=== PATIENT | female | born 1970 | race Caucasian/White ===

== ENCOUNTER → 2016-11-13 | Emergency (ER) | payer SELFPAY ==
[~2016-11-13] VITALS: Ht 160 cm; Wt 97.5 kg
[~2016-11-13] MED LIST: AA/A14DR2 LEFT EAR; ACHD5005 PO; ALBU0.8322 IH; ALBU17AE23 IH; ALBU17AE3 IH; ALBU8.5H4 IH; AMIT100T2 PO; AMIT25TA9 PO; AMOX500C2 PO; ARIP2TAB3 PO; ARIP5TAB20 PO; AZIT-21 PO; AZIT250T PO; BSP10T PO; CALC-80 PO; CEPH500C PO; CHLO500T4 PO; CLOT45CR46 TOP; CODE118S2 PO; CODEINE; CPR500T PO; CYCL10TA9 PO; DEXL60CA5 PO; DICY20TA57 PO; DULO60CA58 PO; FLUT1DIS26 IH; HCT25T PO; HYDR1CAP2 PO; HYDR1TAB PO; HYDR25CA5 PO; HYOS0.1283 SL; LEVO750T39 PO; LEVO80CA PO; LORA1TAB PO; LOSA50TA6 PO; MECL-133 PO; MECL25TA56 PO; MELO-195 PO; MELO-198 PO; METF-380 PO; METO25TA2 PO; MTF500T PO; MTP25TSR PO; NAPR-243 PO; NEBI20TA2 PO; NF-ESOM40C PO; OMEP20CA12 PO; OMEP40CA36 PO; ONDA-42 SL; ONDA4TAB11 PO; ONDAN4ODT PO; PNT40TEC PO; POTA20TA15 PO; PRCD5U PO; PRD20T PO; PREG50C PO; PROMETHAZINE; PRV20T PO; ROSU10TA12 PO; SCR1T1 PO; SRTR100T PO; TELM20TA PO; TPR100T PO; TRAM-21 PO; TRAM-42 PO; TRM50T PO; [UNRECOGNIZED DRUG - OTHER]
[2016-11-13] MEDS: HYDROcodone/APAP 7.5 MG/325 MG (LORTAB, LORCET PLUS) TABLET PO STA (13:29)
[2016-11-13] MEDS: CYCLOBENZAPRINE 10 MG (FLEXERIL) TAB PO STA (13:29)
--- NOTE | 2016-11-13 13:31 | Diagnostic Imaging Report ---
3 views of the lumbar spine. INDICATION: Back pain after fall. FINDINGS: There is straightening of the upper/ mid lumbar spine curvature. There is satisfactory alignment of the posterior spinal line. No compression fracture. The disc heights are preserved. The SI joints appear normal. No significant degenerative changes seen. The paraspinal soft tissues appear unremarkable. IMPRESSION: Unremarkable exam. Dictated by: Dictated on workstation # [id number]
--- NOTE | 2016-11-13 13:36 | ED Back Pain ---
General Chief Complaint: Back Problems Stated Complaint: FALL-BACK PAIN Nursing Triage Note: PT HERE WITH C/O FALL WHILE CLEANING HER KITCHEN FLOOR AND LANDING ON HER BACK. PT C/O BACK PAIN AND BILAT HIP PAIN. Nursing Sepsis Screen: No Definite Risk History of Present Illness Time Seen by Provider: 12:55 Initial Comments Evaluation for exacerbation of chronic back pain with acute fall today. She was mopping her floor and trying to carefully walk across took when she slipped and fell landing on her lower back. She denies hitting her head and denies any loss of consciousness. Location: Lumbar Spine Timing/Duration: 1-3 Hours Severity: Moderate Pain/Injury Location: Other (lumbar spine) Method of Injury: Fall Modifying Factors: Improves With Immobilization, Improves With Rest Associated Symptoms: muscle spasms, No numbness in legs/feet, No tingling in legs/feet, No sensory/motor loss, lower back pain, No loss of bladder control, No loss of bowel control Allergies and Home Medications Allergies Coded Allergies: lisinopril (Verified Allergy, Mild, COUGH, 01/05/16) montelukast (Verified Allergy, Unknown, 01/05/16) montelukast sodium (Verified Adverse Reaction, Unknown, 01/05/16) Uncoded Allergies: METALS (Allergy, Unknown, 07/12/14) Home Medications Aripiprazole 5 Mg Tablet, 2.5 MG PO DAILY, (Reported) TAKES 1/2 OF A (5 MG) TABLET Cyclobenzaprine HCl 10 Mg Tablet, 10 MG PO Q8H PRN for SPASMS, #12 Ref 0 Prescribed by: LYNDSEY SOUZA on 11/13/16 1410 Duloxetine HCl 60 Mg Capsule.dr, 60 MG PO DAILY, (Reported) Levofloxacin 750 Mg Tablet, 750 MG PO DAILY, #10 Ref 0 Prescribed by: TAYLOR PETERSEN on 04/04/16 1421 Pregabalin 50 Mg Cap, 100 MG PO TID, (Reported) TAKES 2 (50 MG) CAPSULES Tramadol HCl 50 Mg Tablet, 50 MG PO Q8H, #12 Ref 0 Prescribed by: LYNDSEY SOUZA on 11/13/16 1410 Constitutional: no symptoms reported, see HPI EENTM: no symptoms reported, see HPI Respiratory: no symptoms reported, see HPI Cardiovascular: no symptoms reported, see HPI Gastrointestinal: no symptoms reported, see HPI Genitourinary: no symptoms reported, see HPI Musculoskeletal: see HPI, back pain, muscle cramps (lumbar spine) Skin: no symptoms reported, see HPI Psychiatric/Neurological: No Symptoms Reported, See HPI All Other Systems Reviewed Negative Unless Noted: Yes Past Fwmfdxn-Fcaqpg-Dysbif Hx Patient Social History Recent Foreign Travel: No Contact w/Someone Who Travel: No Recent Infectious Disease Expo: No Recent Hopitalizations: No Immunizations Up To Date Tetanus Booster (TDap): More than 5yrs Seasonal Allergies Seasonal Allergies: No Surgeries HX Surgeries: Yes (D&C, R KNEE, ) Surgeries: Cardiac, Eye Surgery, Orthopedic Respiratory Hx Respiratory Disorders: Yes Respiratory Disorders: Asthma Cardiovascular Hx Cardiac Disorders: Yes Cardiac Disorders: Heart Attack, High Cholesterol, Hypertension Neurological Hx Neurological Disorders: Yes Neurological Disorders: Headaches /Migraines 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 System Hx 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 Disorders: No 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 Genitourinary Hx Genitourinary Disorders: No Gastrointestinal Hx Gastrointestinal Disorders: Yes Gastrointestinal Disorders: Gastroesophageal Reflux, Hiatal Hernia, Irritable Bowel Musculoskeletal Hx Musculoskeletal Disorders: Yes Musculoskeletal Disorders: Fibromyalgia Endocrine Hx Endocrine Disorders: Yes Endocrine Disorders: Diabetes, Non-Insulin dep HEENT HX ENT Disorders: Yes (WEARS GLASSES) Cancer Hx Cancer: No Psychosocial Hx Psychiatric Problems: Yes Behavioral Health Disorders: ADD/ADHD, Anxiety, PTSD, Depression Integumentary HX Skin/Integumentary Disorder: No Blood Transfusions Hx Blood Disorders: No Adverse Reaction to a Blood Tr: No Reviewed Nursing Assessment Reviewed/Agree w Nursing PMH: Yes Family Medical History Significant Family History: No Pertinent Family Hx Family Medial History: Patient reports no known family medical history. Physical Exam Vital Signs Vital Sign - Last 12Hours 11/13/16 11:39 Temp 99.0 Pulse 73 Resp 18 B/P (MAP) 130/84 Pulse Ox 98 O2 Delivery Room Air Capillary Refill : Less Than 3 Seconds General Appearance: No Apparent Distress, WD/WN Neck: Full Range of Motion, Normal Inspection, Non Tender, Supple Cardiovascular: Regular Rate, Rhythm, No Edema Respiratory: Chest Non Tender, Lungs Clear, Normal Breath Sounds Gastrointestinal: Normal Bowel Sounds, No Organomegaly, No Pulsatile Mass, Non Tender, Soft Back: Normal Inspection, Decreased Range of Motion, Muscle Spasm, Vertebral Tenderness, Other (Power V/V L4-S1, bilat lower ext. ) Extremity: Normal Capillary Refill, Normal Inspection, Normal Range of Motion, Non Tender, No Calf Tenderness, No Pedal Edema Neurologic/Psychiatric: Alert, Oriented x3, No Motor/Sensory Deficits, Normal Mood/Affect Skin: Normal Color, Warm/Dry Progress/Results/Core Measures Results/Orders My Orders Orders - LYNDSEY SOUZA Lumbar Spine - 2-3 Views (11/13/16 13:07) Cyclobenzaprine Tablet (Flexeril Tablet) (11/13/16 13:07) Hydrocodone/Apap 7.5/325 Tab (Lortab 7. (11/13/16 13:07) Vital Signs/I&O Vital Sign - Last 12Hours 11/13/16 11/13/16 11:39 15:26 Temp 99.0 98.8 Pulse 73 71 Resp 18 18 B/P (MAP) 130/84 Pulse Ox 98 99 O2 Delivery Room Air Blood Pressure Mean: 99 Diagnostic Imaging Diagonstic Imaging: Xray Plain Films/CT/US/NM/MRI: other (Lspine) Comments NAME: [facility] REC#: [id number] PT STATUS: REG ER : 1970 PHYSICIAN: LYNDSEY SOUZA ADMIT DATE: 11/13/16/ER Draft Date of Exam:11/13/16 LUMBAR SPINE - 2-3 VIEWS 3 views of the lumbar spine. INDICATION: Back pain after fall. FINDINGS: There is straightening of the upper/ mid lumbar spine curvature. There is satisfactory alignment of the posterior spinal line. No compression fracture. The disc heights are preserved. The SI joints appear normal. No significant degenerative changes seen. The paraspinal soft tissues appear unremarkable. IMPRESSION: Unremarkable exam. Dictated on workstation # [id number] Dict: 11/13/16 1328 Trans: 11/13/16 1330 [id number] Interpreted by: BELLO OWEN MD Electronically signed by: Reviewed: Reviewed by Me Departure Impression Impression: Primary Impression: Fall Qualified Codes: W19.XXXA - Unspecified fall, initial encounter Additional Impression: Back pain Qualified Codes: M54.42 - Lumbago with sciatica, left side; M54.41 - Lumbago with sciatica, right side Disposition: 01 HOME, SELF-CARE Condition: Improved Departure-Patient Inst. Decision time for Depature: 13:35 Referrals: [facility] (PCP/Family) Primary Care Physician Patient Instructions: Low Back Pain (DC) Add. Discharge Instructions: Alternate between ice packs and warm moist compressions to the mid to lower back , when he minutes every 2 hours. Use medication as needed for back pain. Follow-up with Chris Gutierrez APRN next week if symptoms are persisting. Return to emergency department if symptoms worsen, new problems or additional injuries. All discharge instructions reviewed with patient and/or family. Voiced understanding. Scripts Tramadol HCl (Ultram) 50 Mg Tablet 50 MG PO Q8H for Pain, #12 TAB 0 Refills Prov: LYNDSEY SOUZA 11/13/16 Cyclobenzaprine HCl (Cyclobenzaprine HCl) 10 Mg Tablet 10 MG PO Q8H Y for SPASMS, #12 TAB 0 Refills Prov: LYNDSEY SOUZA 11/13/16 LYNDSEY SOUZA Nov 13, 2016 13:36
[2016-11-13 15:26] VITALS: BP 136/73
== END ==
LOC: EDUNIT# 11:22 → ER 11:25
DX: S39.92XA Unspecified injury of lower back, initial encounter (principal); M54.41 Lumbago with sciatica, right side; M54.42 Lumbago with sciatica, left side; W01.0XXA Fall on same level from slipping, tripping and stumbling without subsequent striking against object, initial encounter; Y93.E5 Activity, floor mopping and cleaning; Y92.009 Unspecified place in unspecified non-institutional (private) residence as the place of occurrence of the external cause; I10 Essential (primary) hypertension; E11.9 Type 2 diabetes mellitus without complications
CPT/HCPCS: 72100; 99281

== ENCOUNTER 2017-01-14 14:51 | Emergency (ER) | payer SELFPAY ==
[~2017-01-14] VITALS: Ht 160 cm; Wt 97.5 kg
[2017-01-14] MEDS ORDERED: KETOROLAC 30 MG/ML VIAL IVP ONE (15:15)
[2017-01-14] MEDS ORDERED: NS IV 1000 ML 1,000 ML IV SCH (15:15)
--- NOTE | 2017-01-14 15:15 | ED Back Pain ---
General Chief Complaint: Back Problems Stated Complaint: SIDE,BACK PAIN Nursing Triage Note: pt came to room 5 in a wheelchair, pt states she is having severe right side abd pain and back pain since approx 1100 this morning. Nursing Sepsis Screen: No Definite Risk Source of Information: Patient Exam Limitations: No Limitations History of Present Illness Time Seen by Provider: 15:14 Initial Comments To ER with sudden onset severe right-sided abdominal/flank pain that began this morning. She initially believe this to be a bladder infection. She does not have any nausea or vomiting. She states that she had a bowel movement the pain became worse after that. She has no fevers or chills. She arrives in her own personal wheelchair which she states that she is confined to due to her severe fibromyalgia, however, she is able to ambulate if necessary she states. Timing/Duration: 4-6 Hours Severity: Moderate Allergies and Home Medications Allergies Coded Allergies: lisinopril (Verified Allergy, Mild, COUGH, 01/05/16) montelukast (Verified Allergy, Unknown, 01/05/16) montelukast sodium (Verified Adverse Reaction, Unknown, 01/05/16) Uncoded Allergies: METALS (Allergy, Unknown, 07/12/14) Home Medications Aripiprazole 5 Mg Tablet, 2.5 MG PO DAILY, (Reported) TAKES 1/2 OF A (5 MG) TABLET Cyclobenzaprine HCl 10 Mg Tablet, 10 MG PO Q8H PRN for SPASMS, #12 Ref 0 Prescribed by: LYNDSEY SOUZA on 11/13/16 1410 Duloxetine HCl 60 Mg Capsule.dr, 60 MG PO DAILY, (Reported) Levofloxacin 750 Mg Tablet, 750 MG PO DAILY, #10 Ref 0 Prescribed by: TAYLOR PETERSEN on 04/04/16 1421 Pregabalin 50 Mg Cap, 100 MG PO TID, (Reported) TAKES 2 (50 MG) CAPSULES Tramadol HCl 50 Mg Tablet, 50 MG PO Q8H, #12 Ref 0 Prescribed by: LYNDSEY SOUZA on 11/13/16 1410 Constitutional: see HPI, No chills, No fever EENTM: see HPI Respiratory: no symptoms reported Cardiovascular: no symptoms reported Gastrointestinal: abdominal pain (RLQ) Genitourinary: see HPI Musculoskeletal: no symptoms reported Skin: no symptoms reported Psychiatric/Neurological: No Symptoms Reported Past Wltfqqe-Wmffai-Lxcjic Hx Patient Social History Alcohol Use: Denies Use Recreational Drug Use: No Smoking Status: Never a Smoker 2nd Hand Smoke Exposure: No Recent Foreign Travel: No Contact w/Someone Who Travel: No Recent Infectious Disease Expo: No Recent Hopitalizations: No Immunizations Up To Date Tetanus Booster (TDap): More than 5yrs Seasonal Allergies Seasonal Allergies: No Surgeries HX Surgeries: Yes (D&C, R KNEE, ) Surgeries: Cardiac, Eye Surgery, Orthopedic Respiratory Hx Respiratory Disorders: Yes Respiratory Disorders: Asthma Cardiovascular Hx Cardiac Disorders: Yes Cardiac Disorders: Heart Attack, High Cholesterol, Hypertension Neurological Hx Neurological Disorders: Yes Neurological Disorders: Headaches /Migraines 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 System Hx 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 Disorders: No Sexually Transmitted Disease: No 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 Genitourinary Hx Genitourinary Disorders: No Gastrointestinal Hx Gastrointestinal Disorders: Yes Gastrointestinal Disorders: Gastroesophageal Reflux, Hiatal Hernia, Irritable Bowel Musculoskeletal Hx Musculoskeletal Disorders: Yes Musculoskeletal Disorders: Fibromyalgia Endocrine Hx Endocrine Disorders: Yes Endocrine Disorders: Diabetes, Non-Insulin dep HEENT HX ENT Disorders: Yes (WEARS GLASSES) Cancer Hx Cancer: No Psychosocial Hx Psychiatric Problems: Yes Behavioral Health Disorders: ADD/ADHD, Anxiety, PTSD, Depression Integumentary HX Skin/Integumentary Disorder: No Blood Transfusions Hx Blood Disorders: No Adverse Reaction to a Blood Tr: No Family Medical History Significant Family History: No Pertinent Family Hx Family Medial History: Patient reports no known family medical history. Physical Exam Vital Signs Vital Sign - Last 12Hours 01/14/17 15:00 Temp 97.8 Pulse 70 Resp 20 B/P (MAP) 190/103 Pulse Ox 96 O2 Delivery Room Air Capillary Refill : Less Than 3 Seconds General Appearance: No Apparent Distress, WD/WN HEENT: PERRL/EOMI, TMs Normal Neck: Full Range of Motion, Normal Inspection Cardiovascular: Regular Rate, Rhythm, Normal Peripheral Pulses Respiratory: Normal Breath Sounds, No Accessory Muscle Use, No Respiratory Distress Gastrointestinal: Normal Bowel Sounds, Non Tender, Soft Extremity: Normal Capillary Refill, Normal Inspection Neurologic/Psychiatric: Alert, Oriented x3, No Motor/Sensory Deficits Skin: Normal Color, Warm/Dry Progress/Results/Core Measures Results/Orders Lab Results Laboratory Tests Test 01/14/17 15:11 01/14/17 16:11 Range/Units White Blood Count 8.2 4.3-11.0 10^3/uL Red Blood Count 4.38 4.35-5.85 10^6/uL Hemoglobin 12.7 11.5-16.0 G/DL Hematocrit 39 35-52 % Mean Corpuscular Volume 88 80-99 FL Mean Corpuscular Hemoglobin 29 25-34 PG Mean Corpuscular Hemoglobin Concent 33 32-36 G/DL Red Cell Distribution Width 13.7 10.0-14.5 % Platelet Count 228 130-400 10^3/uL Mean Platelet Volume 11.3 H 7.4-10.4 FL Neutrophils (%) (Auto) 60 42-75 % Lymphocytes (%) (Auto) 28 12-44 % Monocytes (%) (Auto) 8 0-12 % Eosinophils (%) (Auto) 4 0-10 % Basophils (%) (Auto) 0 0-10 % Neutrophils # (Auto) 5.0 1.8-7.8 X 10^3 Lymphocytes # (Auto) 2.3 1.0-4.0 X 10^3 Monocytes # (Auto) 0.7 0.0-1.0 X 10^3 Eosinophils # (Auto) 0.3 0.0-0.3 10^3/uL Basophils # (Auto) 0.0 0.0-0.1 10^3/uL Sodium Level 139 135-145 MMOL/L Potassium Level 4.0 3.6-5.0 MMOL/L Chloride Level 104 98-107 MMOL/L Carbon Dioxide Level 25 21-32 MMOL/L Anion Gap 10 5-14 MMOL/L Blood Urea Nitrogen 11 7-18 MG/DL Creatinine 0.80 0.60-1.30 MG/DL Estimat Glomerular Filtration Rate > 60 BUN/Creatinine Ratio 14 Glucose Level 125 H 70-105 MG/DL Calcium Level 9.1 8.5-10.1 MG/DL Total Bilirubin 0.7 0.1-1.0 MG/DL Aspartate Amino Transf (AST/SGOT) 24 5-34 U/L Alanine Aminotransferase (ALT/SGPT) 23 0-55 U/L Alkaline Phosphatase 50 40-136 U/L Total Protein 7.3 6.4-8.2 GM/DL Albumin 3.8 3.2-4.5 GM/DL Urine Color YELLOW Urine Clarity CLEAR Urine pH 6 5-9 Urine Specific [place] 1.010 L 1.016-1.022 Urine Protein NEGATIVE NEGATIVE Urine Glucose (UA) NEGATIVE NEGATIVE Urine Ketones NEGATIVE NEGATIVE Urine Nitrite NEGATIVE NEGATIVE Urine Bilirubin NEGATIVE NEGATIVE Urine Urobilinogen NORMAL NORMAL MG/DL Urine Leukocyte Esterase NEGATIVE NEGATIVE Urine RBC (Auto) 5+ H NEGATIVE Urine RBC 10-25 H /HPF Urine WBC RARE /HPF Urine Squamous Epithelial Cells 2-5 /HPF Urine Crystals NONE /LPF Urine Bacteria TRACE /HPF Urine Casts NONE /LPF Urine Mucus NEGATIVE /LPF Urine Culture Indicated NO My Orders Orders - SHAN BLACK APRN Cbc With Automated Diff (01/14/17 15:06) Comprehensive Metabolic Panel (01/14/17 15:06) Ua Culture If Indicated (01/14/17 15:06) Saline Lock/Iv-Start (01/14/17 15:06) Ct Abd/Pelvis Wo(Kidney Stone) (01/14/17 15:06) Ns Iv 1000 Ml (Sodium Chloride 0.9%) (01/14/17 15:15) Ketorolac Injection (Toradol Injection) (01/14/17 15:15) Medications Given in ED Current Medications Medications Dose Ordered Sig/Kate Route Start Time Stop Time Status Last Admin Dose Admin Ketorolac Tromethamine 30 mg ONCE ONCE IVP 01/14/17 15:15 01/14/17 15:16 DC 01/14/17 15:20 30 MG Vital Signs/I&O Vital Sign - Last 12Hours 01/14/17 15:00 Temp 97.8 Pulse 70 Resp 20 B/P (MAP) 190/103 Pulse Ox 96 O2 Delivery Room Air Blood Pressure Mean: 132 Departure Impression Impression: Primary Impression: Right ureteral stone Disposition: HOME, SELF-CARE Condition: Stable Departure-Patient Inst. Decision time for Depature: 16:30 Referrals: [facility] (PCP/Family) Primary Care Physician Patient Instructions: Kidney Stones in Adults Add. Discharge Instructions: 1. Medication as directed 2. Return to ER for any worsening or intolerable pain, high fevers or other concerns 3. See your doctor later this week or next week for recheck. All discharge instructions reviewed with patient and/or family. Voiced understanding. Scripts Ondansetron (Zofran Odt) 8 Mg Tab.rapdis 8 MG PO Q4H Y for NAUSEA/VOMITING-1ST LINE, #10 TAB Prov: SHAN BLACK APRN 01/14/17 Hydrocodone/Acetaminophen ([place] 5-325 Tablet) 1 Each Tablet 1 EACH PO Q4H Y for PAIN-MODERATE, #30 TAB Prov: SHAN BLACK APRN 01/14/17 Tamsulosin HCl (Flomax) 0.4 Mg Cap 0.4 MG PO DAILY, #20 CAP Prov: SHAN BLACK APRN 01/14/17 SHAN BLACK APRN Jan 14, 2017 15:15
[2017-01-14 15:21] LABS: BASOPHILS % (AUTO) 0 % (0-10); EOSINOPHILS # (AUTO) 0.3 10^3/uL (0.0-0.3); EOSINOPHILS % (AUTO) 4 % (0-10); LYMPHOCYTES # (AUTO) 2.3 X 10^3 (1.0-4.0); LYMPHOCYTES % (AUTO) 28 % (12-44); MEAN CORPUSCULAR HEMOGLOBIN 29 PG (25-34); MEAN CORPUSCULAR HGB CONC 33 G/DL (32-36); MEAN CORPUSCULAR VOLUME 88 FL (80-99); MEAN PLATELET VOLUME 11.3 FL (7.4-10.4); MONOCYTES # (AUTO) 0.7 X 10^3 (0.0-1.0); MONOCYTES % (AUTO) 8 % (0-12); NEUTROPHILS % (AUTO) 60 % (42-75); PLATELET COUNT 228 10^3/uL (130-400); RED BLOOD COUNT 4.38 10^6/uL (4.35-5.85); RED CELL DISTRIBUTION WIDTH 13.7 % (10.0-14.5); WHITE BLOOD COUNT 8.2 10^3/uL (4.3-11.0)
[2017-01-14 15:38] LABS: ALANINE AMINOTRANSFERASE 23 U/L (0-55); ALBUMIN 3.8 GM/DL (3.2-4.5); ANION GAP 10 MMOL/L (5-14); ASPARTATE AMINO TRANSFERASE 24 U/L (5-34); BILIRUBIN,TOTAL 0.7 MG/DL (0.1-1.0); BLOOD UREA NITROGEN 11 MG/DL (7-18); BUN/CREATININE RATIO 14; CALCIUM 9.1 MG/DL (8.5-10.1); CARBON DIOXIDE 25 MMOL/L (21-32); CHLORIDE 104 MMOL/L (98-107); GFR ESTIMATED > 60; GLUCOSE 125 MG/DL (70-105); SODIUM 139 MMOL/L (135-145); TOTAL PROTEIN 7.3 GM/DL (6.4-8.2)
--- NOTE | 2017-01-14 16:28 | Diagnostic Imaging Report ---
PROCEDURE: CT urinary tract, rule out kidney stone. TECHNIQUE: Multiple contiguous axial images were obtained through the abdomen and pelvis without the use of intravenous contrast. INDICATION: Right flank pain. History of UTIs. COMPARISON: 04/03/2016. FINDINGS: Included views of the lung bases are clear. CT abdomen: 3 mm calculus is identified within the distal right ureter just proximal to the UVJ. As result, there is voyf-qx-ylwgfcoy proximal hydroureteronephrosis. Additional nonobstructive right renal calculus is also noted. No renal or ureteral calculi are seen on the left. Additionally, there is no hydroureteronephrosis or other evidence of obstruction on the left. No renal mass type lesions are identified on this noncontrast exam. Liver is diffusely hypodense consistent with hepatic steatosis. The spleen, adrenal glands, and pancreas have an unremarkable noncontrast CT appearance. Small bowel loops are nondistended. Normal appendix is identified. There are a few scattered colonic diverticula, but no CT evidence of acute diverticulitis. There is no loculated fluid collection, free fluid, nor free air within the abdomen. No abnormal mesenteric or retroperitoneal adenopathy is seen. Bony structures show no acute abnormalities. CT pelvis: Again, there is 3 mm calculus within the distal right ureter. No calculi are seen within the urinary bladder. There is no loculated fluid collection, free fluid, nor free air within the pelvis. No abnormal lymph nodes are seen. Bony structures show no acute abnormalities. IMPRESSION: 1. 3 mm calculus within the distal right ureter resulting in ohwa-eo-cjzzpxah proximal hydroureteronephrosis. 2. Additional nonobstructive right renal calculus. 3. Hepatic steatosis. 4. Colonic diverticulosis, but no CT evidence of acute diverticulitis. Dictated by: Dictated on workstation # [id number]
[2017-01-14 16:38] LABS: BILIRUBIN,URINE NEGATIVE (NEGATIVE); KETONES,URINE NEGATIVE (NEGATIVE); LEUKOCYTE ESTERASE ,URINE NEGATIVE (NEGATIVE); NITRITE,URINE NEGATIVE (NEGATIVE); PH,URINE 6 (5-9); PROTEIN,URINE NEGATIVE (NEGATIVE); UROBILINOGEN,URINE NORMAL (NORMAL)
[2017-01-14 16:59] LABS: WBC,URINE RARE /HPF
[2017-01-14] MEDS ORDERED: TAMS0.4C98 PO (17:04)
[2017-01-14] MEDS ORDERED: HYDR-757 PO (17:04)
[2017-01-14] MEDS ORDERED: ONDA8TAB9 PO (17:04)
[2017-01-14 17:09] VITALS: BP 148/100
== END 2017-01-14 17:09 | disposition home or self-care (01) ==
LOC: EDUNIT# 14:51 → ER 14:53
DX: N20.1 Calculus of ureter (principal); F90.9 Attention-deficit hyperactivity disorder, unspecified type; F41.9 Anxiety disorder, unspecified; F43.10 Post-traumatic stress disorder, unspecified; F32.9 Major depressive disorder, single episode, unspecified; E11.9 Type 2 diabetes mellitus without complications; K21.9 Gastro-esophageal reflux disease without esophagitis; G43.909 Migraine, unspecified, not intractable, without status migrainosus; I25.2 Old myocardial infarction; E78.00 Pure hypercholesterolemia, unspecified; I10 Essential (primary) hypertension; J45.909 Unspecified asthma, uncomplicated; Z98.890 Other specified postprocedural states
CPT/HCPCS: 36415; 74176; 80053; 81000; 85025; 96361; 96374

== ENCOUNTER 2017-01-18 10:32 | Emergency (ER) | payer OTHER ==
[~2017-01-18] VITALS: Ht 160 cm; Wt 97.5 kg
[~2017-01-18 10:32] MED LIST changes: +HYDR-757 PO; +ONDA8TAB9 PO; +TAMS0.4C98 PO
[2017-01-18 11:46] LABS: BILIRUBIN,URINE NEGATIVE (NEGATIVE); KETONES,URINE NEGATIVE (NEGATIVE); LEUKOCYTE ESTERASE ,URINE 3+ (NEGATIVE); NITRITE,URINE POSITIVE (NEGATIVE); PH,URINE 5 (5-9); PROTEIN,URINE 2+ (NEGATIVE); UROBILINOGEN,URINE NORMAL (NORMAL)
[2017-01-18 11:48] LABS: WBC,URINE >100 /HPF
--- NOTE | 2017-01-18 11:58 | ED GU-Female ---
General Chief Complaint: Back Problems Stated Complaint: KIDNEY STONE Nursing Triage Note: PT C/O R FLANK PAIN. SHE STATES SHE WAS SEEN AND TX IN THIS ED LAST [facility] (01/14/17) FOR SAME S/S, BUT WAS UNABLE TO GET HER MEDICATIONS FILLED. Nursing Sepsis Screen: No Definite Risk Source: patient, other (friend) Exam Limitations: no limitations History of Present Illness Time seen by provider: 11:58 Initial Comments 38-year-old female patient presents to the emergency department complains of right flank pain. Patient was seen on 01/14/17 by Shan Rubio APRN for similar symptoms and diagnosed with a kidney stone. Patient states she did not case picker the medications prescribed because "she could not afford the pain medication". denies using anything jzjr-juv-onbxxco for pain. Timing/Duration: intermittent Severity/Quality: aching Location: right flank Radiation: back (rt back) Activities at Onset: none Prior Genitourinary Problems: similar symptoms Modifying Factors: Worsens With Palpation Allergies and Home Medications Allergies Coded Allergies: lisinopril (Verified Allergy, Mild, COUGH, 01/05/16) montelukast (Verified Allergy, Unknown, 01/05/16) montelukast sodium (Verified Adverse Reaction, Unknown, 01/05/16) Uncoded Allergies: METALS (Allergy, Unknown, 07/12/14) Home Medications Aripiprazole 5 Mg Tablet, 2.5 MG PO DAILY, (Reported) TAKES 1/2 OF A (5 MG) TABLET Cephalexin 500 Mg Capsule, 500 MG PO TID, #21 Ref 0 Prescribed by: SUKUMAR CHEN on 01/18/17 1238 Cyclobenzaprine HCl 10 Mg Tablet, 10 MG PO Q8H PRN for SPASMS, #12 Ref 0 Prescribed by: LYNDSEY SOUZA on 11/13/16 1410 Duloxetine HCl 60 Mg Capsule.dr, 60 MG PO DAILY, (Reported) Hydrocodone/Acetaminophen 1 Each Tablet, 1 EACH PO Q4H PRN for PAIN-MODERATE, # 30 Prescribed by: SHAN RUBIO on 01/14/17 1704 Levofloxacin 750 Mg Tablet, 750 MG PO DAILY, #10 Ref 0 Prescribed by: TAYLOR PETERSEN on 04/04/16 1421 Ondansetron 8 Mg Tab.rapdis, 8 MG PO Q4H PRN for NAUSEA/VOMITING-1ST LINE, #10 Prescribed by: SHAN RUBIO on 01/14/17 1704 Pregabalin 50 Mg Cap, 100 MG PO TID, (Reported) TAKES 2 (50 MG) CAPSULES Tamsulosin HCl 0.4 Mg Cap, 0.4 MG PO DAILY, #20 Prescribed by: SHAN RUBIO on 01/14/17 1704 Tramadol HCl 50 Mg Tablet, 50 MG PO Q8H, #12 Ref 0 Prescribed by: LYNDSEY SOUZA on 11/13/16 1410 Constitutional: No chills, No fever, No malaise Respiratory: No cough, No short of breath Cardiovascular: No chest pain, No palpitations Gastrointestinal: No abdominal pain, No constipation, No diarrhea, No nausea, No vomiting Genitourinary: see HPI, denies burning, denies discharge, denies dysuria, denies frequency, flank pain (rt), denies hematuria Musculoskeletal: see HPI, back pain Skin: no symptoms reported Psychiatric/Neurological: No Symptoms Reported All Other Systemes Reviewed Negative Unless Noted: Yes (Negative excepted noted.) Past Czepryj-Tqiiug-Kdmhhj Hx Patient Social History Alcohol Use: Denies Use Recreational Drug Use: No Smoking Status: Never a Smoker 2nd Hand Smoke Exposure: No Recent Foreign Travel: No Contact w/Someone Who Travel: No Recent Infectious Disease Expo: No Recent Hopitalizations: No Immunizations Up To Date Tetanus Booster (TDap): More than 5yrs Seasonal Allergies Seasonal Allergies: No Surgeries HX Surgeries: Yes (D&C, R KNEE, ) Surgeries: Cardiac, Eye Surgery, Orthopedic Respiratory Hx Respiratory Disorders: Yes Respiratory Disorders: Asthma Cardiovascular Hx Cardiac Disorders: Yes Cardiac Disorders: Heart Attack, High Cholesterol, Hypertension Neurological Hx Neurological Disorders: Yes Neurological Disorders: Headaches /Migraines 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 System Hx 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 Disorders: No Sexually Transmitted Disease: No 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 Genitourinary Hx Genitourinary Disorders: Yes Genitourinary Disorders: Kidney Stones (recent dx of kidney stone.) Gastrointestinal Hx Gastrointestinal Disorders: Yes Gastrointestinal Disorders: Gastroesophageal Reflux, Hiatal Hernia, Irritable Bowel Musculoskeletal Hx Musculoskeletal Disorders: Yes Musculoskeletal Disorders: Fibromyalgia Endocrine Hx Endocrine Disorders: Yes Endocrine Disorders: Diabetes, Non-Insulin dep HEENT HX ENT Disorders: Yes (WEARS GLASSES) Cancer Hx Cancer: No Psychosocial Hx Psychiatric Problems: Yes Behavioral Health Disorders: ADD/ADHD, Anxiety, PTSD, Depression Integumentary HX Skin/Integumentary Disorder: No Blood Transfusions Hx Blood Disorders: No Adverse Reaction to a Blood Tr: No Reviewed Nursing Assessment Reviewed/Agree w Nursing PMH: Yes Family Medical History Significant Family History: No Pertinent Family Hx Family Medial History: Patient reports no known family medical history. Physical Exam Vital Signs Vital Sign - Last 12Hours 01/18/17 11:29 Temp 97.8 Pulse 78 Resp 16 B/P (MAP) 151/91 Pulse Ox 97 O2 Delivery Room Air Capillary Refill : Less Than 3 Seconds General Appearance: WD/WN, no apparent distress Cardiovascular: normal peripheral pulses, regular rate, rhythm, no murmur Respiratory: lungs clear, normal breath sounds, no respiratory distress Gastrointestinal: normal bowel sounds, non tender, soft, no organomegaly, No distended Back: normal inspection, CVA tenderness (R) (mild CVA tenderness.), No CVA tenderness (L) Neurologic/Psychiatric: alert, oriented x 3, other (flat affect) Skin: normal color, warm/dry Progress/Results/Core Measures Results/Orders Lab Results Laboratory Tests Test 01/18/17 11:30 Range/Units Urine Color YELLOW Urine Clarity VERY CLOUDY H Urine pH 5 5-9 Urine Specific [place] 1.020 1.016-1.022 Urine Protein 2+ H NEGATIVE Urine Glucose (UA) 3+ H NEGATIVE Urine Ketones NEGATIVE NEGATIVE Urine Nitrite POSITIVE H NEGATIVE Urine Bilirubin NEGATIVE NEGATIVE Urine Urobilinogen NORMAL NORMAL MG/DL Urine Leukocyte Esterase 3+ H NEGATIVE Urine RBC (Auto) 1+ H NEGATIVE Urine RBC NONE /HPF Urine WBC >100 H /HPF Urine Squamous Epithelial Cells 10-25 H /HPF Urine Crystals NONE /LPF Urine Bacteria LARGE H /HPF Urine Casts NONE /LPF Urine Mucus NEGATIVE /LPF Urine Culture Indicated YES My Orders Orders - SUKUMAR CHEN Ua Culture If Indicated (01/18/17 11:16) Urine Culture (01/18/17 11:30) Ketorolac Injection (Toradol Injection) (01/18/17 12:13) Ceftriaxone Injection (Rocephin Injectio (01/18/17 12:15) Lidocaine 1% Injection (Xylocaine 1% Inj (01/18/17 12:15) Hydrocodone/Apap 7.5/325 Tab (Lortab 7. (01/18/17 12:14) Abdomen/Kub 1view (01/18/17 12:21) Medications Given in ED Current Medications Medications Dose Ordered Sig/Kate Route Start Time Stop Time Status Last Admin Dose Admin Ceftriaxone Sodium 1,000 mg ONCE ONCE IM 01/18/17 12:15 01/18/17 12:16 DC 01/18/17 13:08 1,000 MG Lidocaine HCl 2.1 ml ONCE ONCE INJ 01/18/17 12:15 01/18/17 12:16 DC 01/18/17 13:08 2.1 ML Vital Signs/I&O Vital Sign - Last 12Hours 01/18/17 11:29 Temp 97.8 Pulse 78 Resp 16 B/P (MAP) 151/91 Pulse Ox 97 O2 Delivery Room Air Blood Pressure Mean: 111 Diagnostic Imaging Diagonstic Imaging: Xray Plain Films/CT/US/NM/MRI: abdomen Comments FINDINGS: Single view of the abdomen demonstrates calcification in the inferior pole of the right kidney. There is some mild constipation. There is no obstruction or large pocket of free air. Osseous structures normal. IMPRESSION: 1. Mild constipation without obstruction 2. Calcification inferior pole right kidney. Dictated on workstation # [id number] Reviewed: Reviewed by Me (radiology report reviewed by me) Departure Communication Progress Notes Patient case discussed with Dr. Salome Shelton with recommendations for dsch to home with oral antibiotics. Recommends giving patient Rocephin 1 g IM prior to discharge to home. States they will contact patient tomorrow for follow-up appointment. Laboratory findings, diagnostic study findings, and recommendations by Dr. Shelton discussed with the patient. Patient voices understanding and agrees with the treatment plan. Impression Impression: Primary Impression: Urinary tract infection Qualified Codes: N30.00 - Acute cystitis without hematuria Disposition: HOME, SELF-CARE Condition: Improved Departure-Patient Inst. Decision time for Depature: 12:21 Referrals: [facility] (PCP/Family) Primary Care Physician Patient Instructions: Urinary Tract Infection, Adult (DC) Add. Discharge Instructions: All discharge instructions reviewed with patient and/or family. Voiced understanding. Medications as directed. Fill the lortab prescription written by Shan Rubio APRN or use Tylenol Extra Strength [id number]-agw-[id number] 1000 mg by mouth every 6 hours as needed for pain. Ibuprofen 800 mg by mouth every 8 hours as needed for pain. Drink plenty of fluids. Follow-up with Chris Gutierrez APRN for recheck this week. Call for appointment time tomorrow morning. Return to the emergency department for worsened symptoms or any other concerns. Scripts Cephalexin (Cephalexin) 500 Mg Capsule 500 MG PO TID, #21 CAP 0 Refills Prov: SUKUMAR CHEN 01/18/17 SUKUMAR CHEN Jan 18, 2017 11:58
[2017-01-18] MEDS ORDERED: KETOROLAC 60 MG/2 ML VIAL IM STA (12:13)
[2017-01-18] MEDS ORDERED: HYDROcodone/APAP 7.5 MG/325 MG (LORTAB, LORCET PLUS) TABLET PO STA (12:14)
[2017-01-18] MEDS ORDERED: LIDOCAINE 1% INJ 20 ML (XYLOCAINE) VIAL INJ ONE (12:15)
[2017-01-18] MEDS ORDERED: cefTRIAXone 1 GM (ROCEPHIN) VIAL IM ONE (12:15)
[2017-01-18] MEDS ORDERED: CEPH500C PO (12:38)
--- NOTE | 2017-01-18 12:43 | Diagnostic Imaging Report ---
INDICATION: Abdominal pain, history of kidney stones COMPARISON: CT 04/03/16 FINDINGS: Single view of the abdomen demonstrates calcification in the inferior pole of the right kidney. There is some mild constipation. There is no obstruction or large pocket of free air. Osseous structures normal. IMPRESSION: 1. Mild constipation without obstruction 2. Calcification inferior pole right kidney. Dictated by: Dictated on workstation # [id number]
[2017-01-18 13:10] VITALS: BP 151/91
== END 2017-01-18 13:10 | disposition home or self-care (01) ==
LOC: EDUNIT# 10:32 → ER 10:33
DX: J45.909 Unspecified asthma, uncomplicated (principal); I25.2 Old myocardial infarction; E78.00 Pure hypercholesterolemia, unspecified; I10 Essential (primary) hypertension; G43.909 Migraine, unspecified, not intractable, without status migrainosus; K21.9 Gastro-esophageal reflux disease without esophagitis; N39.0 Urinary tract infection, site not specified; E11.9 Type 2 diabetes mellitus without complications; F90.9 Attention-deficit hyperactivity disorder, unspecified type; F43.10 Post-traumatic stress disorder, unspecified; F41.9 Anxiety disorder, unspecified; F32.9 Major depressive disorder, single episode, unspecified; Z87.19 Personal history of other diseases of the digestive system; Z87.442 Personal history of urinary calculi
CPT/HCPCS: 74000; 81000; 87088; 87186; 96372; 99282; 99283

== ENCOUNTER 2017-03-05 20:35 | Emergency (ER) | payer SELFPAY ==
[~2017-03-05] VITALS: Ht 160 cm; Wt 97.5 kg
--- NOTE | 2017-03-05 21:11 | ED GI ---
General Chief Complaint: Abdominal/GI Problems Stated Complaint: ABDOMINAL PAIN,NAUSEA,VOMITING Nursing Triage Note: Was dx with h pylori 3 weeeks ago. states she has had vomiting since then and is unable to eat or drink, not abgle to take meds. went to see chris moses today because she wanted to be admitted. He gave as dose of phenergan im and a script for zofran, which she has not filled due to cost. wants to be admitted Sepsis Screen: No Definite Risk Source of Information: Patient Exam Limitations: No Limitations History of Present Illness Time Seen By Provider: 21:08 Initial Comments To ER with c/o epigastric abdominal pain, nausea and vomiting since 3 weeks ago. Was diagnosed with H pylori 3 weeks ago at the [facility]. She followed up with Chris MOSES today and received a Phenergan injection as well as a prescription for Zofran which caused $10 that she did not have, so she didn 't fill this. Despite her nausea she was able to eat spaghetti and meatballs for dinner. Timing/Duration: 1-2 Days Severity/Quality: Moderate Location: Epigastric Radiation: No Radiation Activities at Onset: None Associated Symptoms: Nausea/Vomiting (and swelling) Allergies and Home Medications Allergies Coded Allergies: lisinopril (Verified Allergy, Mild, COUGH, 03/05/17) montelukast (Verified Allergy, Unknown, 03/05/17) montelukast sodium (Verified Adverse Reaction, Unknown, 03/05/17) Uncoded Allergies: METALS (Allergy, Unknown, 07/12/14) Home Medications Aripiprazole 5 Mg Tablet, 2.5 MG PO DAILY, (Reported) TAKES 1/2 OF A (5 MG) TABLET Cephalexin 500 Mg Capsule, 500 MG PO TID, #21 Ref 0 Prescribed by: SUKUMAR CHEN on 01/18/17 1238 Ciprofloxacin HCl 500 Mg Tablet, 500 MG PO BID, #6 Prescribed by: SHAN BLACK on 03/05/17 2155 Cyclobenzaprine HCl 10 Mg Tablet, 10 MG PO Q8H PRN for SPASMS, #12 Ref 0 Prescribed by: LYNDSEY SOUZA on 11/13/16 1410 Duloxetine HCl 60 Mg Capsule.dr, 60 MG PO DAILY, (Reported) Hydrocodone/Acetaminophen 1 Each Tablet, 1 EACH PO Q4H PRN for PAIN-MODERATE, # 30 Prescribed by: SHAN BLACK on 01/14/17 1704 Levofloxacin 750 Mg Tablet, 750 MG PO DAILY, #10 Ref 0 Prescribed by: TAYLOR PETERSEN on 04/04/16 1421 Pregabalin 50 Mg Cap, 100 MG PO TID, (Reported) TAKES 2 (50 MG) CAPSULES Tamsulosin HCl 0.4 Mg Cap, 0.4 MG PO DAILY, #20 Prescribed by: SHAN BLACK on 01/14/17 1704 Tramadol HCl 50 Mg Tablet, 50 MG PO Q8H, #12 Ref 0 Prescribed by: LYNDSEY SOUZA on 11/13/16 1410 Review of Systems Constitutional: see HPI EENTM: No Symptoms Reported Respiratory: No Symptoms Reported Cardiovascular: No Symptoms Reported Gastrointestinal: See HPI, Abdominal Pain, Denies Constipated, Denies Diarrhea , Nausea, Vomiting Genitourinary: No Symptoms Reported Musculoskeletal: no symptoms reported Skin: no symptoms reported Psychiatric/Neurological: No Symptoms Reported Endocrine: No Symptoms Reported Hematologic/Lymphatic: No Symptoms Reported Past Jipcwzd-Tgvapa-Yytyda Hx Patient Social History Alcohol Use: Denies Use Recreational Drug Use: No Smoking Status: Never a Smoker 2nd Hand Smoke Exposure: No Recent Foreign Travel: No Contact w/Someone Who Travel: No Recent Infectious Disease Expo: No Recent Hopitalizations: No Physical Abuse: No Sexual Abuse: No Mistreated: No Fear: No Immunizations Up To Date Tetanus Booster (TDap): More than 5yrs Seasonal Allergies Seasonal Allergies: No Surgeries History of Surgeries: Yes (D&C, R KNEE, ) Surgeries: Cardiac, Eye Surgery, Orthopedic Respiratory History of Respiratory Disorde: Yes Respiratory Disorders: Asthma Cardiovascular History of Cardiac Disorders: Yes Cardiac Disorders: Heart Attack, High Cholesterol, Hypertension Neurological History of Neurological Disord: Yes Neurological Disorders: Headaches /Migraines 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 System Hx 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 Disorders: No Sexually Transmitted Disease: No 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 Genitourinary History of Genitourinary Disor: Yes Genitourinary Disorders: Kidney Stones Gastrointestinal History of Gastrointestinal Di: Yes (dx with h pylori 3 weeks ago) Gastrointestinal Disorders: Gastroesophageal Reflux, Hiatal Hernia, Irritable Bowel Musculoskeletal History of Musculoskeletal Dis: Yes Musculoskeletal Disorders: Fibromyalgia Endocrine History of Endocrine Disorders: Yes Endocrine Disorders: Diabetes, Non-Insulin dep HEENT History of HEENT Disorders: No Cancer History of Cancer: No Psychosocial History of Psychiatric Problem: Yes Behavioral Health Disorders: ADD/ADHD, Anxiety, PTSD, Depression Suicide Risk Score: 0 Integumentary History of Skin or Integumenta: No Blood Transfusions History of Blood Disorders: No Adverse Reaction to a Blood Tr: No Family Medical History Significant Family History: No Pertinent Family Hx Family Medial History: Patient reports no known family medical history. Physical Exam Vital Signs VS - Last 72 Hours, by Label 03/05/17 03/05/17 20:56 23:00 Temp 96.8 98.3 Pulse 123 99 Resp 20 18 B/P (MAP) 128/88 Pulse Ox 98 99 Capillary Refill : Less Than 3 Seconds General Appearance: WD/WN, no apparent distress HEENT: PERRL/EOMI, normal ENT inspection Neck: non-tender, full range of motion Respiratory: normal breath sounds, no respiratory distress, no accessory muscle use Cardiovascular: regular rate, rhythm, no murmur Gastrointestinal: normal bowel sounds, soft, tenderness Extremities: normal range of motion, non-tender Neurologic/Psychiatric: alert, normal mood/affect, oriented x 3 Skin: normal color, warm/dry (of the right testicular) Progress/Results/Core Measures Results/Orders Lab Results Laboratory Tests Test 03/05/17 21:05 Range/Units White Blood Count 12.0 H 4.3-11.0 10^3/uL Red Blood Count 4.88 4.35-5.85 10^6/uL Hemoglobin 13.9 11.5-16.0 G/DL Hematocrit 42 35-52 % Mean Corpuscular Volume 86 80-99 FL Mean Corpuscular Hemoglobin 29 25-34 PG Mean Corpuscular Hemoglobin Concent 33 32-36 G/DL Red Cell Distribution Width 13.7 10.0-14.5 % Platelet Count 268 130-400 10^3/uL Mean Platelet Volume 11.2 H 7.4-10.4 FL Neutrophils (%) (Auto) 70 42-75 % Lymphocytes (%) (Auto) 22 12-44 % Monocytes (%) (Auto) 6 0-12 % Eosinophils (%) (Auto) 1 0-10 % Basophils (%) (Auto) 0 0-10 % Neutrophils # (Auto) 8.4 H 1.8-7.8 X 10^3 Lymphocytes # (Auto) 2.7 1.0-4.0 X 10^3 Monocytes # (Auto) 0.7 0.0-1.0 X 10^3 Eosinophils # (Auto) 0.2 0.0-0.3 10^3/uL Basophils # (Auto) 0.0 0.0-0.1 10^3/uL Urine Color KATHLEEN H Urine Clarity CLEAR Urine pH 5 5-9 Urine Specific [place] 1.025 H 1.016-1.022 Urine Protein 2+ H NEGATIVE Urine Glucose (UA) NEGATIVE NEGATIVE Urine Ketones 1+ H NEGATIVE Urine Nitrite POSITIVE H NEGATIVE Urine Bilirubin 1+ H NEGATIVE Urine Urobilinogen 1 NORMAL MG/DL Urine Leukocyte Esterase 3+ H NEGATIVE Urine RBC (Auto) 1+ H NEGATIVE Urine RBC RARE /HPF Urine WBC 5-10 H /HPF Urine Squamous Epithelial Cells 25-50 H /HPF Urine Crystals NONE /LPF Urine Bacteria FEW H /HPF Urine Casts NONE /LPF Urine Mucus SMALL H /LPF Urine Culture Indicated YES Sodium Level 138 135-145 MMOL/L Potassium Level 3.3 L 3.6-5.0 MMOL/L Chloride Level 106 98-107 MMOL/L Carbon Dioxide Level 21 21-32 MMOL/L Anion Gap 11 5-14 MMOL/L Blood Urea Nitrogen 7 7-18 MG/DL Creatinine 0.88 0.60-1.30 MG/DL Estimat Glomerular Filtration Rate > 60 BUN/Creatinine Ratio 8 Glucose Level 196 H 70-105 MG/DL Calcium Level 8.7 8.5-10.1 MG/DL Total Bilirubin 0.6 0.1-1.0 MG/DL Aspartate Amino Transf (AST/SGOT) 26 5-34 U/L Alanine Aminotransferase (ALT/SGPT) 23 0-55 U/L Alkaline Phosphatase 46 40-136 U/L Total Protein 7.0 6.4-8.2 GM/DL Albumin 3.8 3.2-4.5 GM/DL Lipase 32 8-78 U/L Micro Results Microbiology 03/05/17 Urine Culture - Final, Complete My Orders Orders - SHAN BLACK APRN Prochlorperazine Injection (Compazine In (03/05/17 21:15) Ondansetron Injection (Zofran Injectio (03/05/17 21:15) Lactated Ringers (Lr 1000 Ml Iv Solution (03/05/17 21:15) Cbc With Automated Diff (03/05/17 21:06) Comprehensive Metabolic Panel (03/05/17 21:06) Lipase (03/05/17 21:06) Saline Lock/Iv-Start (03/05/17 21:06) Ct Abdomen/Pelvis W (03/05/17 21:06) Ua Culture If Indicated (03/05/17 21:11) Urine Culture (03/05/17 21:05) Ceftriaxone Injection (Rocephin Injectio (03/05/17 21:45) Iohexol Injection (Omnipaque 350 Mg/Ml 1 (03/05/17 22:00) Ns (Ivpb) (Sodium Chloride 0.9% Ivpb Bag (03/05/17 22:00) Iv Infusion <= First Hr Ed (03/05/17 ) Medications Given in ED Vital Signs/I&O Vital Sign - Last 12Hours 03/05/17 03/05/17 20:56 23:00 Temp 96.8 98.3 Pulse 123 99 Resp 20 18 B/P (MAP) 128/88 Pulse Ox 98 99 Blood Pressure Mean: 101 Diagnostic Imaging Diagonstic Imaging: CT Comments NAME: [facility] REC#: [id number] PT STATUS: REG ER : 1970 PHYSICIAN: SHAN BLACK APRN ADMIT DATE: 03/05/17/ER Draft Date of Exam:03/05/17 CT ABDOMEN/PELVIS W PROCEDURE: CT abdomen and pelvis with contrast. TECHNIQUE: Multiple contiguous axial images were obtained through the abdomen and pelvis after administration of intravenous contrast. DATE: March 05, 2017. COMPARISON: CT abdomen and pelvis January 14, 2017. INDICATION: 46-year-old female, nausea and vomiting. FINDINGS: There is a 3 mm benign calcified right lower lobe granuloma. Additional visualized portions of the lung bases are clear. The heart is not enlarged. There is no identified pericardial effusion. The liver is diffusely decreased in attenuation compatible with diffuse fatty infiltration of the liver. There are areas of fatty sparing adjacent to the gallbladder fossa. There is no identified liver lesion. The main, right, and left portal veins are patent. The gallbladder is unremarkable. There is no intrahepatic or extrahepatic bile duct dilation. The main pancreatic duct is not abnormally dilated. Unremarkable appearance of the pancreatic parenchyma. The spleen is not enlarged. There is a nonspecific low-attenuation lesion in the spleen on axial image 23 which measures 7 mm in size. This is unchanged dating back to at least April 03, [address] abdomen and pelvis. Adrenal glands are unremarkable in appearance. There are areas of renal cortical scarring. Additional evaluation of the renal parenchyma is unremarkable. There is no hydronephrosis. There is a 3 mm nonobstructing right renal stone on coronal image 30. There is no ureteral stone. The urinary bladder is underdistended and otherwise unremarkable in appearance. The intestinal tract is not distended. There is a fat-containing umbilical hernia. There is a small hiatal hernia. There is no free intraperitoneal air. There is no drainable fluid collection. There is no free pelvic fluid. There is no identified abnormally enlarged lymph node in the abdomen or pelvis which meets CT size criteria for adenopathy. There is no identified acute bony abnormality. IMPRESSION: CT ABDOMEN AND PELVIS. 1. Diffuse fatty infiltration of the liver. 2. Areas of renal cortical scarring bilaterally. 3. A 3 mm nonobstructing right renal stone. No ureteral stone or hydronephrosis. 4. Small hiatal hernia. 5. No identified acute abnormality within the abdomen or pelvis. Dictated on workstation # [id number] Dict: 03/05/172209 Trans: 03/05/17 222 [facility] [id number] Interpreted by: ARABELLA PETERS MD Electronically signed by: Ilene Impression Impression: Primary Impression: Nausea and vomiting Disposition: 01 HOME, SELF-CARE Condition: Stable Departure-Patient Inst. Decision time for Depature: 21:54 Referrals: [facility] (PCP/Family) Primary Care Physician Patient Instructions: Nausea and Vomiting, Adult Add. Discharge Instructions: 1. Return to ER for any concerns 2. Follow-up with [facility] 3. ANTIBIOTICS as directed All discharge instructions reviewed with patient and/or family. Voiced understanding. Scripts Ciprofloxacin HCl (Cipro) 500 Mg Tablet 500 MG PO BID, #6 TAB Prov: SHAN BLACK APRN 03/05/17 SHAN BLACK APRN Mar 05, 2017 21:10
[2017-03-05] MEDS ORDERED: ONDANSETRON 4 MG/2 ML (SDV) Z0FRAN IVP ONE (21:15)
[2017-03-05] MEDS ORDERED: LACTATED RINGERS 1,000 ML IV SCH (21:15)
[2017-03-05] MEDS ORDERED: PROCHLORPERAZINE 10 MG/2ML INJ (COMPAZINE) IV ONE (21:15)
[2017-03-05 21:17] LABS: BASOPHILS % (AUTO) 0 % (0-10); EOSINOPHILS # (AUTO) 0.2 10^3/uL (0.0-0.3); EOSINOPHILS % (AUTO) 1 % (0-10); LYMPHOCYTES # (AUTO) 2.7 X 10^3 (1.0-4.0); LYMPHOCYTES % (AUTO) 22 % (12-44); MEAN CORPUSCULAR HEMOGLOBIN 29 PG (25-34); MEAN CORPUSCULAR HGB CONC 33 G/DL (32-36); MEAN CORPUSCULAR VOLUME 86 FL (80-99); MEAN PLATELET VOLUME 11.2 FL (7.4-10.4); MONOCYTES # (AUTO) 0.7 X 10^3 (0.0-1.0); MONOCYTES % (AUTO) 6 % (0-12); NEUTROPHILS # (AUTO) 8.4 X 10^3 (1.8-7.8); NEUTROPHILS % (AUTO) 70 % (42-75); PLATELET COUNT 268 10^3/uL (130-400); RED BLOOD COUNT 4.88 10^6/uL (4.35-5.85); RED CELL DISTRIBUTION WIDTH 13.7 % (10.0-14.5)
[2017-03-05 21:19] LABS: KETONES,URINE 1+ (NEGATIVE); LEUKOCYTE ESTERASE ,URINE 3+ (NEGATIVE); NITRITE,URINE POSITIVE (NEGATIVE); PH,URINE 5 (5-9); PROTEIN,URINE 2+ (NEGATIVE); UROBILINOGEN,URINE 1 MG/DL (NORMAL)
[2017-03-05 21:26] LABS: BILIRUBIN,URINE 1+ (NEGATIVE)
[2017-03-05 21:31] LABS: SQUAMOUS EPITHELIAL CELL,UR 25-50 /HPF
[2017-03-05 21:37] LABS: ALANINE AMINOTRANSFERASE 23 U/L (0-55); ALBUMIN 3.8 GM/DL (3.2-4.5); ANION GAP 11 MMOL/L (5-14); ASPARTATE AMINO TRANSFERASE 26 U/L (5-34); BILIRUBIN,TOTAL 0.6 MG/DL (0.1-1.0); BLOOD UREA NITROGEN 7 MG/DL (7-18); BUN/CREATININE RATIO 8; CALCIUM 8.7 MG/DL (8.5-10.1); CARBON DIOXIDE 21 MMOL/L (21-32); CHLORIDE 106 MMOL/L (98-107); CREATININE SERUM 0.88 MG/DL (0.60-1.30); GFR ESTIMATED > 60; GLUCOSE 196 MG/DL (70-105); LIPASE 32 U/L (8-78); POTASSIUM 3.3 MMOL/L (3.6-5.0); SODIUM 138 MMOL/L (135-145)
[2017-03-05] MEDS ORDERED: cefTRIAXone INJECTION 1,000 MG in NS (IVPB) 50 ML IV ONE (21:45)
[2017-03-05] MEDS ORDERED: CIPR-225 PO (21:55)
[2017-03-05] MEDS ORDERED: IOHEXOL 350 MG/ML 100 ML (OMNIPAQUE 350) VIAL IV ONE (22:00)
[2017-03-05] MEDS ORDERED: NS 100 ML (IVPB) BAG IV ONE (22:00)
--- NOTE | 2017-03-05 22:21 | Diagnostic Imaging Report ---
PROCEDURE: CT abdomen and pelvis with contrast. TECHNIQUE: Multiple contiguous axial images were obtained through the abdomen and pelvis after administration of intravenous contrast. DATE: March 05, 2017. COMPARISON: CT abdomen and pelvis January 14, 2017. INDICATION: 46-year-old female, nausea and vomiting. FINDINGS: There is a 3 mm benign calcified right lower lobe granuloma. Additional visualized portions of the lung bases are clear. The heart is not enlarged. There is no identified pericardial effusion. The liver is diffusely decreased in attenuation compatible with diffuse fatty infiltration of the liver. There are areas of fatty sparing adjacent to the gallbladder fossa. There is no identified liver lesion. The main, right, and left portal veins are patent. The gallbladder is unremarkable. There is no intrahepatic or extrahepatic bile duct dilation. The main pancreatic duct is not abnormally dilated. Unremarkable appearance of the pancreatic parenchyma. The spleen is not enlarged. There is a nonspecific low-attenuation lesion in the spleen on axial image 23 which measures 7 mm in size. This is unchanged dating back to at least April 03, [address] abdomen and pelvis. Adrenal glands are unremarkable in appearance. There are areas of renal cortical scarring. Additional evaluation of the renal parenchyma is unremarkable. There is no hydronephrosis. There is a 3 mm nonobstructing right renal stone on coronal image 30. There is no ureteral stone. The urinary bladder is underdistended and otherwise unremarkable in appearance. The intestinal tract is not distended. There is a fat-containing umbilical hernia. There is a small hiatal hernia. There is no free intraperitoneal air. There is no drainable fluid collection. There is no free pelvic fluid. There is no identified abnormally enlarged lymph node in the abdomen or pelvis which meets CT size criteria for adenopathy. There is no identified acute bony abnormality. IMPRESSION: CT ABDOMEN AND PELVIS. 1. Diffuse fatty infiltration of the liver. 2. Areas of renal cortical scarring bilaterally. 3. A 3 mm nonobstructing right renal stone. No ureteral stone or hydronephrosis. 4. Small hiatal hernia. 5. No identified acute abnormality within the abdomen or pelvis. Dictated by: Dictated on workstation # [id number]
[2017-03-05 23:00] VITALS: BP 130/90
== END 2017-03-05 23:00 | disposition home or self-care (01) ==
LOC: EDUNIT# 20:35 → ER 20:36
DX: R11.2 Nausea with vomiting, unspecified (principal); F43.10 Post-traumatic stress disorder, unspecified; F41.9 Anxiety disorder, unspecified; F32.9 Major depressive disorder, single episode, unspecified; F90.9 Attention-deficit hyperactivity disorder, unspecified type; E11.9 Type 2 diabetes mellitus without complications; I25.2 Old myocardial infarction; E78.00 Pure hypercholesterolemia, unspecified; I10 Essential (primary) hypertension; J45.909 Unspecified asthma, uncomplicated; G43.909 Migraine, unspecified, not intractable, without status migrainosus; Z87.442 Personal history of urinary calculi
CPT/HCPCS: 36415; 74177; 80053; 81000; 83690; 85025; 87088; 96361; 96365; 96375

== ENCOUNTER 2018-06-19 13:12 | Emergency (ER) | payer SELFPAY ==
[~2018-06-19] VITALS: Ht 160 cm; Wt 90.7 kg
[~2018-06-19 13:12] MED LIST changes: +CIPR-225 PO; +HYDR-4226 PO; -HYDR-757 PO
[2018-06-19] MEDS ORDERED: PROMETHAZINE INJ 25 MG/ML (PHENERGAN) AMP ONE (13:15)
[2018-06-19] MEDS ORDERED: NS IV 1000 ML 1,000 ML ONE (13:15)
[2018-06-19] MEDS ORDERED: KETOROLAC 30 MG/ML VIAL ONE (13:15)
--- OUTSIDE RECORDS SUMMARY | 2018-06-19 13:17 | XMS REPORT ---
Author Author ALISON LAWSON Organization [facility] Address [address] [place] [address] Care Team Providers Care Senior Compliance Analyst Name Role Phone ALISON LAWSON Unavailable PROBLEMS Type Condition ICD9-CM Code SAO34-AS Code Onset Dates Condition Status SNOMED Code Problem Eosinophilic colitis K52.82 Active 92084885 Problem Other chronic gastritis without hemorrhage K29.50 Active 1124762 Problem Unsteady gait R26.81 Active 21854537 Problem Controlled type 2 diabetes mellitus without complication, without long -term current use of insulin E11.9 Active 702563843 Problem Acute right-sided low back pain with right-sided sciatica M54.41 Active 349687414 Problem Sacral pain M53.3 Active 16309261 Problem Non morbid obesity E66.9 Active 552857996 Problem Paresthesias in left hand R20.2 Active 611463520 Problem GERD with esophagitis K21.0 Active 283144980 Problem Other chronic pain G89.29 Active 72143526 Problem Bronchitis J40 Active 32645447 Problem Migraine without aura and without status migrainosus, not intractable G43.009 Active 240634298 Problem Hypertension, benign I10 Active 24999802 Problem Fibromyalgia M79.7 Active 973160185 Problem Non morbid obesity due to excess calories E66.09 Active 169098794 ALLERGIES Substance Reaction Event Type Date Status Singulair Unknown Drug Allergy Apr, Active Lisinopril Unknown Drug Allergy Apr, Active metals Unknown Non Drug Allergy Apr, Active ENCOUNTERS Encounter Location Date Diagnosis [facility] [address] [address] May, [facility] [address] [address] Apr, Fibromyalgia M79.7 [facility] [id number] [address] Apr, BMI 40.0-44.9, adult Z68.41 [place] [address] [address]47- [address] Apr, [place] [address] 31556- 3340 Mar, Pyelonephritis N12 and BMI 40.0-44.9, adult Z68.41 [place] [address] 71502- 0962 17 Feb, 2018 BMI 40.0-44.9, adult Z68.41 and Body aches R52 [facility] [address] [place] [address]886 -[address]56 08 Feb, 2018 Allergic reaction to drug, initial encounter T78.40XA [address] [address]43- [address] 07 Feb, 2018 BMI 40.0-44.9, adult Z68.41 ; Hypertension, benign I10 ; Non morbid obesity due to excess calories E66.09 and Controlled type 2 diabetes mellitus without complication, without long-term current use of insulin E11.[address] [address]- [address] Jan, Impacted cerumen of right ear H61.[address] 67124- 5973 Jan, Bilious vomiting with nausea R11.14 ; BMI 40.0-44.9, adult Z68.41 ; Hypertension, benign I10 and Fibromyalgia M79.[address] 7[address]67- 0156 Dec, Bilious vomiting with nausea R11.14 and Tachycardia R00.[address] [address]15- 8488 Nov, [address] 73521- 0903 Nov, BMI 40.0-44.9, adult Z68.41 ; Leg edema R60.0 and Hypertension, benign I10 [place] [address] 90177- 2519 Nov, [place] [address] 30258- 5789 October, Thoracic neuritis M54.14 [place] [address] 62296- 7970 October, Acute right hip pain M25.551 [place] [address] 12571- 7819 October, [place] [address] 74064- 1930 Sep, Hypertension, benign I10 and Acute right-sided low back pain with right-sided sciatica M54.41 [place] [address] 41459- 8485 Sep, Fibromyalgia M79.7 and Hypertension, benign I10 [place] [address] 70968- 7316 Aug, [place] [address] 30922- 2237 Aug, Fibromyalgia M79.7 ; Frequent headaches R51 and Non morbid obesity due to excess calories E66.09 [place] [address] 34461- 2207 Jul, [place] [address] 35367- 3084 Jul, Fibromyalgia M79.7 [place] [address] 08467- 8068 Jul, Viral gastroenteritis A08.4 and Paresthesias in left hand R20.2 [place] [address] [place] [address] Jun, Non morbid obesity due to excess calories E66.09 [place] [address] 00652- 1671 Jun, [place] [address] 37953- 1908 Jun, Fibromyalgia M79.7 [place] [address] 08827- 9673 May, Non morbid obesity due to excess calories E66.09 and Hypertension, benign I10 [place] [address] 24974- 4488 May, GERD with esophagitis K21.0 [place] [address] 64425- 7503 Apr, BMI 40.0-44.9, adult Z68.41 and Non morbid obesity E66.9 [place] [id number] [place] [address] 79316- 2585 Mar, Unsteady gait R26.81 [place] [address] 11243- 3258 Mar, Unsteady gait R26.81 ; Sacral pain M53.3 and Fibromyalgia M79.7 [place] [address] 05642- 5615 Mar, Non morbid obesity due to excess calories E66.09 [place] [id number] [place] [address] 48894- 3659 Feb, Abdominal pain, generalized R10.84 [place] [address] 39048- 1986 18 Feb, 2017 Other chronic gastritis without hemorrhage K29.50 and H. pylori infection A04.8 [place] [address] 37852- 9039 07 Feb, 2017 Back pain 724.5 ; Pain in left shoulder M25.512 ; Fibromyalgia M79.7 and Non morbid obesity due to excess calories E66.09 [place] [address] 47643- 4275 Feb, BMI 40.0-44.9, adult Z68.41 [place] [address] 72881- 8008 Jan, Dysuria R30.0 and Acute cystitis with hematuria N30.01 [place] [address] 02770- 5954 Jan, Dysuria R30.0 [place] [address] 74045- 9455 Dec, Fibromyalgia M79.[address] 05545- 8379 Dec, Screening for diabetes mellitus Z13.1 and Fibromyalgia M79.7 [place] [address] 58900- 1467 Dec, Fibromyalgia M79.7 [place] [address] 10555- 3143 Dec, [place] [address] 45544- 8308 Dec, Fibromyalgia M79.7 [place] [address] 87177- 2975 Nov, Foreign body in foot, left, initial encounter S90.852A [place] [address] 80594- 2593 Nov, Viral gastroenteritis A08.4 [place] [address] 19272- 2584 09 Nov, 2016 Fall, initial encounter W19.XXXA ; Post-traumatic headache, unspecified, not intractable G44.309 ; Dizziness R42 ; Unsteady gait R26.81 ; Sacral pain M53.3 and Non morbid obesity due to excess calories E66.09 [facility] [id number] [place] [address] 44208- 6480 Nov, [facility] [id number] [place] [address] 63965- 9632 Nov, [facility] [address] 41918- 8155 October, Non morbid obesity due to excess calories E66.09 and Hypertension, benign I10 [facility] [address] 39769- 1917 October, Fibromyalgia M79.7 [facility] [address] 09117- 2061 Sep, [facility] [address] 45884- 3795 Sep, [facility] [address] 28650- 0420 Sep, Eosinophilic colitis K52.82 [facility] [address] 25206- 0665 Aug, Bronchitis J40 [facility] [id number] [place] [address] 81954- 8472 Aug, [facility] [id number] [place] [address] 84228- 8458 Aug, Pain in left shoulder M25.512 ; Bronchitis J40 ; Acute midline back pain, unspecified location M54.9 ; Migraine without aura and without status migrainosus, not intractable G43.009 ; Fibromyalgia M79.7 and Pain of upper abdomen R10.10 [facility] [id number] [place] [address] 19615- 8863 Aug, [facility] [address] 29157- 4398 Aug, [facility] [address] [address]- [address] Jul, Other viral agents as the cause of diseases classified elsewhere B97.89 and Acute upper respiratory infection, unspecified J06.9 [facility] [address] [address]- [address] Jun, [facility] [id number] [place] [address] 01729 -4669 Jun, [facility] [id number] [place] [address] 06600- 5897 May, Abscess L02.91 [facility] [id number] [place] [address] 28334- 3599 May, Acute midline low back pain without sciatica M54.5 [facility] [id number] [place] [address] 72341 -4382 May, [facility] [id number] [place] [address] 00077- 6044 Apr, [facility] [id number] [place] [address] 96620- 3462 Apr, Other chronic pain G89.29 ; Pain in right shoulder M25.511 and Pain in left shoulder M25.512 [place] [address] [address]- 4742 16 Apr, 2016 [facility] [id number] [place] [address] 14825- 3129 Apr, [facility] [address] [place] [address] 79830- 3527 Apr, Fibromyalgia M79.7 ; Other chronic pain G89.29 and Pain in left shoulder M25.512 [facility] [id number] [place] [address] 45209- 5223 Apr, Bronchitis J40 [facility] [id number] [place] [address] 07012- 5750 Mar, [facility] [address] [facility] [id number] [id number] Mar, [facility] [address] [place] [address] 13425- 5803 29 Feb, 2015 [facility] [address] [address]- 3742 26 Feb, 2015 [facility] [address] [place] [address] 15469- 2491 23 Feb, 2015 [facility] [address] [place] [address] 59563- 4414 22 Feb, 2015 [facility] [address] [place] [address] 74037- 6550 20 Feb, 2015 [facility] [address] [place] [address] 49304- 0956 19 Feb, 2015 [facility] [address] [place] [address] 81294- 4160 19 Feb, 2015 Dysuria R30.0 [facility] [address] [place] [address] 10448- 3400 19 Feb, 2015 Dysuria R30.0 [facility] [address] [place] [address] 32946- 0050 16 Feb, 2015 [facility] [address] [place] [address] 10914- 9685 15 Feb, 2016 Migraine, unspecified, not intractable, without status migrainosus G43.909 and Fibromyalgia M79.7 [facility] [address] [address]- 3225 06 Feb, 2016 Migraine without aura and without status migrainosus, not intractable G43.009 [facility] [address] [address]- 3311 Jan, [facility] [address] [place] [address] 77203- 2447 Jan, [facility] [id number] [place] [address] 88553- 8192 Jan, [facility] [id number] [place] [address] 01864- 6128 Jan, [facility] [id number] [place] [address] 97271- 3986 Jan, Unsteady gait R26.81 ; Fibromyalgia M79.7 and Family history of rheumatoid arthritis Z82.61 [facility] [id number] [place] [address] 16875- 8191 Dec, [place] [address] 93534- 0192 Dec, [place] [id number] [place] [address] 49037- 9293 Nov, Pain in left shoulder M25.512 [place] [id number] [place] [address] 39276- 8096 October, Viral gastroenteritis A08.4 [facility] [id number] [place] [address] 92785 -0459 October, Pain of upper abdomen R10.10 [place] [id number] [place] [address] 99961- 1873 October, Acute midline back pain, unspecified location M54.9 [facility] [id number] [place] [address] 83972- 1432 Aug, Elbow pain, right M25.521 [place] [id number] [place] [address] 64531- 5250 Aug, Elbow pain, right M25.521 [facility] [id number] [place] [address] 17472- 0743 Aug, Pain of right upper extremity M79.601 [place] [id number] [place] [address] 68233- 1810 Jun, Lumbar neuritis M54.16 [facility] [id number] [place] [address] 53342- 0937 May, [facility] [address] 22927- 3093 Apr, Non morbid obesity due to excess calories E66.09 [facility] [address] 49519- 2141 Apr, Non morbid obesity due to excess calories E66.09 and Thoracic neuritis M54.14 [facility] [address] 13416- 2458 Apr, Elbow pain, right M25.521 [facility] [address] 87219- 9054 Mar, Right elbow pain M25.521 [facility] [address] 02815- 1815 Mar, [facility] [address] 62232- 7164 Feb, Urinary tract infection, site not specified 599.0 [facility] [id number] [place] [address] 12230- 4064 Feb, [facility] [id number] [place] [address] 20840- 9476 Jan, Spider bite 989.5 [facility] [id number] [place] [address] 56742- 6156 Jan, Spider bite 989.5 [facility] [address] 58076- 0070 Jan, Spider bite 989.5 [facility] [id number] [place] [address] 48544- 3878 Nov, Back pain 724.5 and Diabetes 250.00 [facility] [address] [place] [address]- 6236 Nov, Back pain 724.5 and Muscle spasm of back 724.8 [facility] [id number] [place] [address] 57158- 1738 Nov, Alternating constipation and diarrhea 787.99 [facility] [id number] [place] [address] 36796- 9246 October, Back pain 724.5 and Hip pain 719.45 [facility] [id number] [place] [address] 01540- 5006 Sep, [facility] [id number] [place] [address] 67367- 7157 Sep, [facility] [id number] [place] [address] 47806- 5100 Aug, [facility] [id number] [place] [address] 84786- 7491 Aug, [facility] [id number] [place] [address] 16824- 9480 Aug, [facility] [id number] [place] [address] 57710- 1476 Aug, [facility] [address] [place] [address] 33601- 9243 Aug, [facility] [id number] [place] [address] 75660- 5746 Aug, [facility] [address] [place] [address] 91628- 9806 Jul, [facility] [id number] [place] [address] 30039- 9556 Jul, [facility] [address] [address]- 3806 Jun, [facility] [id number] [place] [address] 29483- 0000 Jun, [facility] [place] [facility] [address] [id number] [place] [address]- 0945 15 Jun, 2014 [facility] [place] [facility] [address] [id number] [place] [address]- 3185 Jun, [facility] [place] [facility] [address] [id number] [place] [address]- 4944 15 Jun, 2014 [facility] [place] [facility] [address] [id number] [place] [address]- 1250 Jun, [facility] [place] [facility] [address] [id number] [place] [address]- 5421 Jun, [facility] [place] [facility] [address] [id number] [place] [address]- 1473 May, [facility] [place] [facility] [address] [id number] [place] [address]- 4725 May, [facility] [place] [facility] [address] [id number] [place] [address]- 5611 May, [facility] [place] [facility] [address] [id number] [place] [address]- 8110 May, [facility] [place] [facility] [address] [id number] [place] [address]- 8289 Apr, [facility] [place] [facility] [address] [id number] [place] [address]- 9560 Apr, [facility] [place] [facility] [address] [id number] [address]- 7345 Mar, [facility] [place] [facility] [address] [id number] [place] [address]- 7977 Mar, [facility] [place] [facility] [address] [id number] [place] [address]- 8922 Mar, [facility] [place] [facility] [address] [id number] [place] [address]- 8421 Mar, [facility] [place] [facility] [address] [id number] [place] [address]- 8001 15 Mar, 2014 [facility] [place] [facility] [address] [id number] [place] [address]- 2930 15 Mar, 2014 [facility] [place] [facility] [address] [id number] [place] [address]- 0189 Mar, [facility] [place] [facility] [address] [id number] [place] [address]- 0880 Mar, [facility] [place] [facility] [address] [id number] [place] [address]- 1803 Mar, [facility] [place] [facility] [address] [id number] [place] [address]- 8029 Mar, [facility] [place] [facility] [address] [id number] [place] [address]- 0411 Feb, [facility] [place] [facility] [address] [id number] [place] [address]- 5923 Feb, [facility] [place] [facility] [address] [id number] [place] [address]- 8467 Jan, [facility] [place] [facility] [address] [id number] [place] [address]- 6158 Jan, [facility] [place] [facility] [address] [id number] [place] [address]- 1026 Jan, [facility] [place] [facility] [address] [id number] [place] [address]- 0517 Jan, [facility] [place] [facility] [address] [id number] [place] [address]- 5390 Jan, [facility] [place] [facility] [address] [id number] [place] [address]- 3184 Jan, [facility] [place] [facility] [address] [id number] [place] [address]- 0371 Jan, [facility] [place] [facility] [address] [id number] [place] [address]- 2818 Jan, [facility] [place] [facility] [address] [id number] [place] [address]- 9213 Jan, [facility] [place] [facility] [address] [id number] [place] [address]- 4917 Jan, [facility] [place] [facility] [address] [id number] [place] [address]- 0495 Dec, [facility] [place] [facility] [address] [id number] [place] [address]- 8449 Dec, [facility] [place] [facility] [address] [id number] [place] [address]- 3393 Dec, [facility] [place] [facility] [address] [id number] [place] [address]- 4392 Dec, [facility] [place] [facility] [address] [id number] [place] [address]- 2068 Nov, [facility] [place] [facility] [address] [id number] [place] [address]- 6040 Nov, [facility] [place] [facility] [address] [id number] [place] [address]- 3538 Nov, [facility] [place] [facility] [address] [id number] [place] [address]- 7122 Nov, [facility] [place] [facility] [address] [id number] [place] [address]- 6980 October, [facility] [place] [facility] [address] [id number] [place] [address]- 5931 October, [facility] [place] [facility] [address] [id number] [place] [address]- 4188 Sep, [facility] [place] [facility] [address] [id number] [place] [address]- 5637 Sep, [facility] [place] [facility] [address] [id number] [place] [address]- 9698 Sep, [facility] [place] [facility] [address] [id number] [place] [address]- 7992 Sep, [facility] [place] [facility] [address] [id number] [place] [address]- 0029 Sep, [facility] [place] [facility] [address] [id number] [place] [address]- 2966 Sep, [facility] [place] [facility] [address] [id number] [place] [address]- 7418 Sep, [facility] [place] [facility] [address] [id number] [place] [address]- 9048 Sep, [facility] [place] [facility] [address] [id number] [place] [address]- 5859 Sep, [facility] [place] [facility] [address] [id number] [place] [address]- 8566 Sep, [facility] [place] [facility] [address] [id number] [place] [address]- 0497 Jul, [facility] [place] [facility] [address] [id number] [place] [address]- 8197 Jul, [facility] [place] [facility] [address] [id number] [place] [address]- 1115 Jul, [facility] [place] [facility] [address] [id number] [place] [address]- 6453 Jul, [facility] [place] [facility] [address] [id number] [place] [address]- 7210 Jun, [facility] [place] [facility] [address] [id number] [place] [address]- 7122 Jun, [facility] [place] [facility] [address] [id number] [place] [address]- 3417 Jun, [facility] [place] [facility] [address] [id number] [place] [address] Jun, [facility] [place] [facility] [address] [id number] [place] [address] Jun, [facility] [place] [facility] [address] [id number] [place] [address]- [address] Jun, [facility] [address] [id number] [place] [address] Apr, [facility] [place] [facility] [address] [id number] [place] [address] Apr, [facility] [address] [id number] [place] [address] Apr, [facility] [place] [facility] [address] [id number] [place] [address] Apr, [facility] [address] [id number] [place] [address] 2017 Apr, [facility] [address] [id number] [place] [address] Apr, [facility] [address] [id number] [place] [address] Apr, [facility] [address] [id number] [place] [address] Apr, [facility] [place] [facility] [address] [id number] [place] [address] Mar, [facility] [address] [id number] [place] [address] Mar, [facility] [place] [facility] [address] [id number] [place] [address] Feb, [facility] [place] [facility] [address] [id number] [place] [address]- [address] Feb, [facility] [place] [facility] [address] [id number] [place] [address] Dec, [facility] [place] [facility] [address] [id number] [place] [address]- [address] Dec, [facility] [place] [facility] [address] [id number] [place] [address] Dec, [facility] [address] [id number] [place] [address] Dec, [facility] [place] [facility] [address] [id number] [place] [address]- [address] Dec, [facility] [place] [facility] [address] [id number] [place] [address] Dec, [facility] [place] [facility] [address] [id number] [place] [address]- [address] Dec, [facility] [place] [facility] [address] [id number] [place] [address] Nov, [facility] [place] [facility] [address] [id number] [place] [address] Nov, [facility] [place] [facility] [address] [id number] [place] [address] Nov, [facility] [place] [facility] [address] [id number] [place] [address] Nov, [facility] [place] [facility] [address] [id number] [place] [address] October, [facility] [place] [facility] [address] [id number] [place] [address]- [address] October, [facility] [place] [facility] [address] [id number] [place] [address] October, [facility] [place] [facility] [address] [id number] [place] [address] October, [facility] [place] [facility] [address] [id number] [place] [address] Sep, [facility] [place] [facility] [address] [address] [id number] [place] [address] Aug, [facility] [place] [facility] [address] [id number] [place] [address] Aug, [facility] [place] [facility] [address] [id number] [place] [address] Aug, [facility] [address] [id number] [place] [address] Aug, [facility] [place] [facility] [address] [id number] [place] [address] Aug, [facility] [address] [id number] [place] [address] 27 Jul, 2012 [facility] [place] [facility] [address] [id number] [place] [address] Jul, [facility] [address] [id number] [place] [address] 26 Jul, 2012 [facility] [place] [facility] [address] [id number] [place] [address] 1417 Jul, [facility] [address] [id number] [place] [address] 25 Jul, 2012 [facility] [address] [id number] [place] [address] 23 Jul, 2012 [facility] [place] [facility] [address] [id number] [place] [address] 6466 20 Jul, 2012 [facility] [address] [id number] [place] [address] 39[address] 15 Jul, 2012 [facility] [place] [facility] [address] [id number] [place] [address] 2547 14 Jul, 2012 [facility] [place] [facility] [address] [id number] [place] [address] 2541 11 Jul, 2012 [facility] [place] [facility] [address] [id number] [place] [address] Jun, [facility] [place] [facility] [address] [id number] [place] [address]47 Jun, [facility] [place] [facility] [address] [id number] [place] [address] 1767 Jun, [facility] [place] [facility] [address] [id number] [place] [address] 8966 May, [facility] [place] [facility] [address] [id number] [place] [address]11 May, [facility] [place] [facility] [address] [id number] [place] [address] Apr, [facility] [place] [facility] [address] [id number] [place] [address]863 Apr, [facility] [place] [facility] [address] [id number] [place] [address] Apr, [facility] [place] [facility] [address] [id number] [place] [address] 5675 Apr, [facility] [place] [facility] [address] [id number] [place] [address] 0769 Apr, [facility] [place] [facility] [address] [id number] [place] [address] Apr, [facility] [place] [facility] [address] [id number] [place] [address]152 Apr, [facility] [place] [facility] [address] [id number] [place] [address] Apr, [facility] [place] [facility] [address] [id number] [place] [address] Mar, [facility] [place] [facility] [address] [id number] [place] [address] 31 Mar, 2012 [facility] [place] [facility] [address] [id number] [place] [address] 34[address] Mar, [facility] [place] [facility] [address] [id number] [place] [address] 31 Mar, 2012 [facility] [place] [facility] [address] [facility] [id number] [place] [address] 15 Mar, 2012 [facility] [place] [facility] [address] [id number] [place] [address] 9709 Mar, [facility] [place] [facility] [address] [id number] [place] [address] 8027 Mar, [facility] [place] [facility] [address] [id number] [place] [address]676 Mar, [facility] [place] [facility] [address] [id number] [place] [address] 4[address] Mar, [facility] [place] [facility] [address] [id number] [place] [address] 4295 Feb, [facility] [place] [facility] [address] [id number] [place] [address] Jan, [facility] [place] [facility] [address] [id number] [place] [address] 64[address] Jan, [facility] [place] [facility] [address] [id number] [place] [address] 1408 Jan, [facility] [place] [facility] [address] [id number] [place] [address] 366[address] Dec, [facility] [place] [facility] [address] [id number] [place] [address] 4084 Dec, [facility] [place] [facility] [address] [id number] [place] [address] 0837 Dec, [facility] [place] [facility] [address] [id number] [place] [address] 2346 Nov, [facility] [place] [facility] [address] [id number] [place] [address] 2544 October, [facility] [place] [facility] [address] [id number] [place] [address] 0947 October, [facility] [place] [facility] [address] [id number] [place] [address] 8896 October, [facility] [place] [facility] [address] [id number] [place] [address]- 5346 October, [facility] [place] [facility] [address] [id number] [place] [address] 8648 October, [facility] [place] [facility] [address] [id number] [place] [address]- 5835 30 Sep, 2011 [facility] [place] [facility] [address] [id number] [place] [address] 1236 23 Sep, 2011 [facility] [place] [facility] [address] [id number] [place] [address] 4494 13 Sep, 2011 [facility] [place] [facility] [address] [id number] [place] [address]- 0074 Sep, [facility] [place] [facility] [address] [id number] [place] [address]- 7935 Sep, [facility] [place] [facility] [address] [id number] [place] [address] 3851 Sep, [facility] [place] [facility] [address] [id number] [place] [address] 0705 Sep, [facility] [place] [facility] [address] [id number] [place] [address] 1178 28 Aug, 2011 [facility] [place] [facility] [address] [id number] [place] [address]- 0980 23 Aug, 2011 [facility] [place] [facility] [address] [id number] [place] [address]- 9408 Aug, [facility] [place] [facility] [address] [id number] [place] [address] 7135 21 Aug, 2011 [facility] [place] [facility] [address] [id number] [place] [address] 0473 20 Aug, 2011 [facility] [place] [facility] [address] [id number] [place] [address]- 5448 19 Aug, 2011 [facility] [place] [facility] [address] [id number] [place] [address] 5242 16 Aug, 2011 [facility] [place] [facility] [address] [id number] [place] [address]- 5596 15 Aug, 2011 [facility] [address] [id number] [place] [address]- 8219 15 Aug, 2011 [facility] [place] [facility] [address] [id number] [place] [address]- 1726 14 Aug, 2011 [facility] [address] [id number] [place] [address]- 3029 12 Aug, 2011 [facility] [place] [facility] [address] [id number] [place] [address]- 6902 08 Aug, 2011 [facility] [address] [id number] [place] [address]- 2933 15 Jul, 2011 [facility] [place] [facility] [address] [id number] [place] [address]- 7771 15 Jul, 2011 [facility] [address] [id number] [place] [address]- 3761 14 Jul, 2011 [facility] [place] [facility] [address] [id number] [place] [address]- 6085 06 Jul, 2011 [facility] [address] [id number] [place] [address]- 2675 02 Jul, 2011 [facility] [place] [facility] [address] [id number] [place] [address]- 5065 Jun, [facility] [address] [id number] [place] [address]- 2591 Jun, [facility] [place] [facility] [address] [id number] [place] [address]- 2651 Jun, [facility] [place] [facility] [address] [id number] [place] [address]- 6500 May, [facility] [place] [facility] [address] [id number] [place] [address]- 7453 May, [facility] [place] [facility] [address] [facility] [id number] [place] [address]- 6214 May, [facility] [place] [facility] [address] [id number] [place] [address]- 2231 19 May, 2011 [facility] [place] [facility] [address] [id number] [place] [address] 14 May, 2011 [facility] [place] [facility] [address] [id number] [place] [address] 16 Apr, 2011 [facility] [place] [facility] [address] [id number] [place] [address]- [address] 16 Apr, 2011 [facility] [place] [facility] [address] [id number] [place] [address]- 7929 15 Apr, 2011 [facility] [place] [facility] [address] [id number] [place] [address]- 3464 14 Apr, 2011 [facility] [place] [facility] [address] [id number] [place] [address]- 8963 25 Mar, 2011 [facility] [place] [facility] [address] [id number] [place] [address]- 7476 24 Mar, 2011 [facility] [place] [facility] [address] [id number] [place] [address]- 1694 Mar, [facility] [place] [facility] [address] [id number] [place] [address]- 1433 19 Mar, 2011 [facility] [place] [facility] [address] [id number] [place] [address]- 7074 17 Mar, 2011 [facility] [place] [facility] [address] [id number] [place] [address]- 5477 17 Mar, 2011 [facility] [place] [facility] [address] [id number] [place] [address]- 8872 16 Feb, 2011 [facility] [place] [facility] [address] [id number] [place] [address]- 6682 10 Nov, 2010 [facility] [place] [facility] [address] [id number] [place] [address]- 7426 17 Aug, 2010 [facility] [place] [facility] [address] [id number] [place] [address] Apr, [facility] [address] [facility] [id number] [place] [address] 82[address] Mar, [facility] [address] [id number] [place] [address] 1586 Apr, [facility] [address] [id number] [place] [address]- 1046 Apr, [facility] [id number] [address]- 4[address] Sep, [facility] [address] [facility] [id number] [place] [address]- [address] Mar, IMMUNIZATIONS Vaccine Route Administration Date Status TORADOL (IM) 60 MG/2ML (UP TO 15 MG) IM Intramuscular May 04, 2018 Administered SOCIAL HISTORY Never Assessed REASON FOR VISIT Migraine - dizzy x3 days - Abelardo AYALA , Fibramyalgia is flaring up and causing pain - Abelardo Ayala PLAN OF CARE Activity Details Follow Up regular appt Reason: VITAL SIGNS Height 63 in 2018-05-04 Weight 246.4 lbs 2018-05-04 Temperature 97.5 degrees Fahrenheit 2018-05-04 Heart Rate 94 bpm 2018-05-04 Respiratory Rate 20 2018-05-04 BMI 43.64 kg/m2 2018-05-04 Blood pressure systolic 122 mmHg 2018-05-04 Blood pressure diastolic 82 mmHg 2018-05-04 MEDICATIONS Medication Instructions Dosage Frequency Start Date End Date Duration Status Actos 30 MG Orally Once a day 1/2 tablet 24h Feb, Active Glucocard Expression Test - test blood sugar Aug, Active Reglan 10 mg Orally 2 times a day, prn nausea 1 tablet Dec, Active Propranolol HCl 60 MG Orally Twice a day 1 tablet 12h October, 90 days Active Cymbalta 60 MG Orally Once a day 1 capsule 24h Active MetFORMIN HCl ER 500 mg Orally twice a day 2 tablets 12h Jan, 90 days Active [employer] [place] Whe[employer] - with bench seat. DX: fibromyalgia, unsteady gait as directed Jan, Active Mirtazapine 15 MG Orally Once a day 1 tablet at bedtime 24h Active Albuterol Sulfate (2.5 MG/3ML) 0.083% Inhalation Three times a day 3 ml 8h Aug, Active Proventil HFA 108 (90 Base) MCG/ACT Inhalation every 4 hrs 2 puffs as needed 4h Aug, Active Glucocard Expression Monitor w/Device as directed Aug, Active Crestor 10 mg Orally Once a day 1 tablet 24h 16 Feb, 2014 90 days Active Micardis 20 mg Orally Once a day 1 tablet by Oral route 1 time per day 24h Jun, 30 days Active Naproxen 500 MG Orally 2 times a day 1 tablet with food or milk as needed 12h Apr, Active Lyrica 150 MG Orally 3 times a day 1 capsule 8h Mar, 90 days Active Wheelchair 1 use as needed for acitivity assistance Nov, Active Pantoprazole Sodium 40 mg Orally Once a day 1 tablet 24h May, 90 days Active Spironolactone 25 MG Orally Once a day 1 tablet with food 24h Nov, 90 days Active RESULTS No Results PROCEDURES Procedure Date Ordered Result Body Site TORADOL (IM) 60 MG/2ML (UP TO 15 MG) May 04, 2018 THER/PROPH/DIAG INJ, SC/IM May 04, 2018 INSTRUCTIONS MEDICATIONS ADMINISTERED No Known Medications MEDICAL (GENERAL) HISTORY Type Description Date Medical History asthma Medical History anxiety Medical History insomnia Medical History hypertension Medical History depression Medical History migraine headaches Medical History gastroesophageal reflux disease (GERD) Medical History back pain Medical History hyperlipidemia Medical History type II diabetes Medical History fibromyalgia Medical History coronary artery disease Medical History hernia Medical History personality disorder Medical History PTSD Medical History ADHD Surgical History heart cath WNL after false positive stress test EF 60% 2012 Surgical History arthroscopic knee surgery right knee x2 2006 Surgical History ENT surgery Surgical History dilatation and curettage Hospitalization History hypokalemia 08/2009 Hospitalization History pneumonia 2006 Hospitalization History [facility] 01/2016 Hospitalization History Sepsis secondary to pneumonia and UTI 03/1016
--- OUTSIDE RECORDS SUMMARY | 2018-06-19 13:18 | XMS REPORT ---
Author Author ARISTEO ARAYA Organization [facility] Address [address] [place] [address] Care Team Providers Care Mobile Lounge Driver Or Operator Name Role Phone ARISTEO ARAYA Unavailable PROBLEMS Type Condition ICD9-CM Code DXO35-ER Code Onset Dates Condition Status SNOMED Code Problem Eosinophilic colitis K52.82 Active 06213273 Problem Other chronic gastritis without hemorrhage K29.50 Active 4672914 Problem Unsteady gait R26.81 Active 72148215 Problem Controlled type 2 diabetes mellitus without complication, without long -term current use of insulin E11.9 Active 017207327 Problem Acute right-sided low back pain with right-sided sciatica M54.41 Active 815334101 Problem Sacral pain M53.3 Active 33226643 Problem Non morbid obesity E66.9 Active 947161274 Problem Paresthesias in left hand R20.2 Active 986988528 Problem GERD with esophagitis K21.0 Active 374951211 Problem Other chronic pain G89.29 Active 67702161 Problem Bronchitis J40 Active 69405628 Problem Migraine without aura and without status migrainosus, not intractable G43.009 Active 682548190 Problem Hypertension, benign I10 Active 37248471 Problem Fibromyalgia M79.7 Active 009578296 Problem Non morbid obesity due to excess calories E66.09 Active 209683354 ALLERGIES No Information ENCOUNTERS Encounter Location Date Diagnosis [facility] [id number] [address] May, [facility] [id number] [place] [address] 51392- 7918 15 Apr, 2018 BMI 40.0-44.9, adult Z68.41 [facility] [id number] [place] [address] 84519- 4167 12 Apr, 2018 [facility] [id number] [place] [address] 85264- 1072 Mar, Pyelonephritis N12 and BMI 40.0-44.9, adult Z68.[address] 47171- 8216 17 Feb, 2018 BMI 40.0-44.9, adult Z68.41 and Body aches R52 [facility] [id number] [place] [address] 80568 -0272 08 Feb, 2018 Allergic reaction to drug, initial encounter T78.40XA [address] 40881- 2696 07 Feb, 2018 BMI 40.0-44.9, adult Z68.41 ; Hypertension, benign I10 ; Non morbid obesity due to excess calories E66.09 and Controlled type 2 diabetes mellitus without complication, without long-term current use of insulin E11.[address] 74217- 4059 Jan, Impacted cerumen of right ear H61.[address] 27131- 4384 Jan, Bilious vomiting with nausea R11.14 ; BMI 40.0-44.9, adult Z68.41 ; Hypertension, benign I10 and Fibromyalgia M79.7 [place] [id number] [place] [address] 70739- 7172 Dec, Bilious vomiting with nausea R11.14 and Tachycardia R00.0 [place] [id number] [place] [address] 03307- 6804 Nov, [address] 53268- 7984 Nov, BMI 40.0-44.9, adult Z68.41 ; Leg edema R60.0 and Hypertension, benign I10 [place] [id number] [place] [address] 64987- 0032 Nov, [id number] [address] 4921 October, Thoracic neuritis M54.14 [place] [address] 40254- 4346 October, Acute right hip pain M25.551 [place] [address] 80053- 3913 October, [place] [address] 37489- 8380 Sep, Hypertension, benign I10 and Acute right-sided low back pain with right-sided sciatica M54.41 [place] [address] 06776- 8146 Sep, Fibromyalgia M79.7 and Hypertension, benign I10 [place] [address] 40980- 2679 Aug, [place] [address] 00487- 0310 Aug, Fibromyalgia M79.7 ; Frequent headaches R51 and Non morbid obesity due to excess calories E66.09 [place] [address] 14541- 6346 Jul, [place] [id number] [place] [address] 06423- 3767 Jul, Fibromyalgia M79.7 [place] [address] 58537- 2783 Jul, Viral gastroenteritis A08.4 and Paresthesias in left hand R20.2 [place] [address] 57260- 4870 Jun, Non morbid obesity due to excess calories E66.09 [place] [id number] [place] [address] 98569- 4854 Jun, [place] [address] 22257- 6330 Jun, Fibromyalgia M79.7 [place] [address] 01365- 8374 May, Non morbid obesity due to excess calories E66.09 and Hypertension, benign I10 [place] [address] 47062- 6357 May, GERD with esophagitis K21.0 [place] [address] 11283- 3459 Apr, BMI 40.0-44.9, adult Z68.41 and Non morbid obesity E66.9 [place] [address] 86431- 1610 Mar, Unsteady gait R26.81 [place] [address] 51118- 8827 Mar, Unsteady gait R26.81 ; Sacral pain M53.3 and Fibromyalgia M79.7 [place] [id number] [place] [address] 57492- 0096 Mar, Non morbid obesity due to excess calories E66.09 [place] [id number] [place] [address] 65350- 9439 Feb, Abdominal pain, generalized R10.84 [place] [id number] [place] [address] 22618- 4051 18 Feb, 2017 Other chronic gastritis without hemorrhage K29.50 and H. pylori infection A04.8 [place] [id number] [place] [address] 10113- 9027 Feb, Back pain 724.5 ; Pain in left shoulder M25.512 ; Fibromyalgia M79.7 and Non morbid obesity due to excess calories E66.09 [place] [id number] [place] [address] 93959- 8990 07 Feb, 2017 BMI 40.0-44.9, adult Z68.41 [place] [id number] [place] [address] 38340- 3514 14 Jan, 2017 Dysuria R30.0 and Acute cystitis with hematuria N30.01 [place] [address] 28637- 1814 Jan, Dysuria R30.0 [place] [address] 22455- 6660 Dec, Fibromyalgia M79.7 [place] [address] 14479- 4822 Dec, Screening for diabetes mellitus Z13.1 and Fibromyalgia M79.[address] 18476- 0835 Dec, Fibromyalgia M79.[address] 26111- 5636 Dec, [place] [address] 74503- 1303 Dec, Fibromyalgia M79.[address] 72285- 1251 Nov, Foreign body in foot, left, initial encounter S90.852A [address] 78205- 6826 16 Nov, 2016 Viral gastroenteritis A08.4 [place] [address] 21018- 5900 09 Nov, 2016 Fall, initial encounter W19.XXXA ; Post-traumatic headache, unspecified, not intractable G44.309 ; Dizziness R42 ; Unsteady gait R26.81 ; Sacral pain M53.3 and Non morbid obesity due to excess calories E66.[address] 25387- 7500 08 Nov, 2016 [place] [address] 20741- 1653 Nov, [place] [id number] [place] [address] 95097- 8617 October, Non morbid obesity due to excess calories E66.09 and Hypertension, benign I10 [place] [id number] [place] [address] 86849- 4761 October, Fibromyalgia M79.7 [place] [id number] [place] [address] 38670- 3781 Sep, [place] [id number] [place] [address] 46480- 8266 Sep, [place] [id number] [place] [address] 13440- 8339 Sep, Eosinophilic colitis K52.82 [place] [id number] [place] [address] 17226- 8768 Aug, Bronchitis J40 [place] [id number] [place] [address] 33550- 0561 Aug, [place] [id number] [place] [address] 41248- 0822 Aug, Pain in left shoulder M25.512 ; Bronchitis J40 ; Acute midline back pain, unspecified location M54.9 ; Migraine without aura and without status migrainosus, not intractable G43.009 ; Fibromyalgia M79.7 and Pain of upper abdomen R10.10 [place] [id number] [place] [address] 52071- 9207 Aug, [place] [id number] [place] [address] 58418- 3104 Aug, [place] [id number] [place] [address] 71454- 9263 Jul, Other viral agents as the cause of diseases classified elsewhere B97.89 and Acute upper respiratory infection, unspecified J06.9 [place] [id number] [place] [address] 28282- 9978 Jun, [facility] [address] [address] Jun, [facility] [id number] [place] [address] 51569- 5378 May, Abscess L02.91 [facility] [address] [address]- 0457 May, Acute midline low back pain without sciatica M54.5 [facility] [id number] [place] [address] 64016 -5471 May, [facility] [id number] [place] [address] 36599- 8063 Apr, [facility] [id number] [place] [address] 06043- 4335 Apr, Other chronic pain G89.29 ; Pain in right shoulder M25.511 and Pain in left shoulder M25.512 [facility] [address] [address]- 3979 16 Apr, 2016 [facility] [id number] [place] [address] 25100- 2447 Apr, [facility] [id number] [place] [address] 89093- 5565 Apr, Fibromyalgia M79.7 ; Other chronic pain G89.29 and Pain in left shoulder M25.512 [facility] [address] [address]- 7103 Apr, Bronchitis J40 [facility] [address] [address]- 9373 Mar, [facility] [id number] [id number] Mar, [facility] [address] [address]- 2615 Feb, [facility] [address] [address]- 2235 26 Feb, 2015 [facility] [id number] [place] [address] 08488- 3486 23 Feb, 2015 [facility] [id number] [address]- 9400 22 Feb, 2015 [facility] [id number] [place] [address] 91015- 4346 20 Feb, 2015 [facility] [id number] [place] [address] 66462- 0357 19 Feb, 2015 [facility] [id number] [place] [address] 17579- 0184 19 Feb, 2015 Dysuria R30.0 [facility] [id number] [place] [address] 29781- 5638 19 Feb, 2015 Dysuria R30.0 [facility] [id number] [place] [address] 51807- 0379 16 Feb, 2015 [facility] [id number] [place] [address] 07274- 7137 15 Feb, 2016 Migraine, unspecified, not intractable, without status migrainosus G43.909 and Fibromyalgia M79.7 [facility] [address] [address]- 2869 06 Feb, 2016 Migraine without aura and without status migrainosus, not intractable G43.009 [facility] [address] [address]- 2843 Jan, [facility] [id number] [place] [address] 15957- 1360 Jan, [facility] [address] [address]- 2179 Jan, [facility] [address] [address]- 6326 Jan, [facility] [address] 59381- 9064 Jan, Unsteady gait R26.81 ; Fibromyalgia M79.7 and Family history of rheumatoid arthritis Z82.61 [place] [address] 40250- 2964 Dec, [place] [address] 24350- 8627 Dec, [place] [address] 03400- 1406 Nov, Pain in left shoulder M25.512 [place] [address] 25462- 9722 October, Viral gastroenteritis A08.4 [facility] [address] 22090 -3237 October, Pain of upper abdomen R10.10 [place] [address] 89375- 6320 October, Acute midline back pain, unspecified location M54.9 [place] [address] 42346- 1758 Aug, Elbow pain, right M25.521 [place] [address] 02448- 1218 Aug, Elbow pain, right M25.521 [place] [address] 69615- 6162 Aug, Pain of right upper extremity M79.601 [place] [address] 19246- 5909 Jun, Lumbar neuritis M54.16 [place] [address] 62914- 3186 May, [place] [address] 70559- 8045 Apr, Non morbid obesity due to excess calories E66.09 [facility] [id number] [place] [address] 65813- 9306 Apr, Non morbid obesity due to excess calories E66.09 and Thoracic neuritis M54.14 [facility] [id number] [place] [address] 25935- 1252 Apr, Elbow pain, right M25.521 [facility] [address] 37881- 8021 Mar, Right elbow pain M25.521 [place] [address] 31562- 3532 Mar, [place] [id number] [place] [address] 41872- 2679 Feb, Urinary tract infection, site not specified 599.0 [place] [address] 07383- 6582 Feb, [place] [id number] [place] [address] 68528- 4022 Jan, Spider bite 989.5 [place] [address] 13601- 3220 Jan, Spider bite 989.5 [place] [id number] [place] [address] 25016- 0499 Jan, Spider bite 989.5 [place] [id number] [place] [address] 26383- 1854 10 Nov, 2014 Back pain 724.5 and Diabetes 250.00 [place] [address] 09709- 5819 Nov, Back pain 724.5 and Muscle spasm of back 724.8 [place] [id number] [place] [address] 77350- 4381 Nov, Alternating constipation and diarrhea 787.99 [place] [address] [id number] [place] [address]- 2588 October, Back pain 724.5 and Hip pain 719.45 [facility] [place] [facility] [address] [id number] [place] [address]- 7209 14 Sep, 2014 [facility] [place] [facility] [address] [facility] [id number] [place] [address]- 3212 Sep, [facility] [place] [facility] [address] [id number] [address]- 0216 Aug, [facility] [place] [facility] [address] [id number] [place] [address]- 4937 Aug, [facility] [place] [facility] [address] [id number] [place] [address]- 8110 Aug, [facility] [place] [facility] [address] [id number] [place] [address]- 1815 Aug, [facility] [place] [facility] [address] [id number] [address]- 5998 Aug, [facility] [place] [facility] [address] [id number] [place] [address]- 1008 Aug, [facility] [place] [facility] [address] [facility] [id number] [place] [address]- 2749 Jul, [facility] [place] [facility] [address] [id number] [address]- 7343 Jul, [facility] [place] [facility] [address] [id number] [address]- 0067 Jun, [facility] [place] [facility] [address] [id number] [address]- 9123 Jun, [facility] [place] [facility] [address] [facility] [id number] [address]- 0575 Jun, [facility] [place] [facility] [address] [facility] [id number] [address]- 5464 Jun, [facility] [place] [facility] [address] [id number] [place] [address]- 9916 15 Jun, 2014 [facility] [address] [id number] [place] [address]- 1909 Jun, [facility] [place] [facility] [address] [id number] [place] [address]- 1164 Jun, [facility] [address] [id number] [place] [address]- 0311 May, [facility] [place] [facility] [address] [id number] [place] [address]- 2885 May, [facility] [place] [facility] [address] [id number] [place] [address]- 2239 May, [facility] [place] [facility] [address] [id number] [place] [address]- 2953 May, [facility] [place] [facility] [address] [id number] [place] [address]- 5609 Apr, [facility] [place] [facility] [address] [id number] [place] [address]- 5407 Apr, [facility] [place] [facility] [address] [id number] [place] [address]- 4897 Mar, [facility] [place] [facility] [address] [id number] [place] [address]- 4259 Mar, [facility] [place] [facility] [address] [id number] [place] [address]- 7716 Mar, [facility] [place] [facility] [address] [id number] [place] [address]- 0739 24 Mar, 2014 [facility] [place] [facility] [address] [id number] [place] [address]- 5825 Mar, [facility] [place] [facility] [address] [id number] [place] [address]- 9266 15 Mar, 2014 [facility] [place] [facility] [address] [id number] [place] [address]- 4585 Mar, [facility] [place] [facility] [address] [id number] [place] [address]- 4913 Mar, [facility] [place] [facility] [address] [id number] [place] [address]- 0336 Mar, [facility] [place] [facility] [address] [id number] [place] [address]- 6693 Mar, [facility] [place] [facility] [address] [id number] [place] [address]- 5860 Feb, [facility] [place] [facility] [address] [id number] [place] [address]- 0856 Feb, [facility] [place] [facility] [address] [id number] [place] [address]- 5766 Jan, [facility] [place] [facility] [address] [id number] [place] [address]- 1208 Jan, [facility] [place] [facility] [address] [id number] [place] [address]- 0135 Jan, [facility] [place] [facility] [address] [id number] [place] [address]- 4650 Jan, [facility] [place] [facility] [address] [id number] [place] [address]- 3628 Jan, [facility] [place] [facility] [address] [id number] [place] [address]- 6151 Jan, [facility] [place] [facility] [address] [id number] [address]- 0106 Jan, [facility] [place] [facility] [address] [id number] [place] [address]- 7544 Jan, [facility] [place] [facility] [address] [id number] [place] [address]- 0869 Jan, [facility] [place] [facility] [address] [id number] [place] [address]- 7238 Jan, [facility] [place] [facility] [address] [id number] [place] [address]- 0758 Dec, [facility] [place] [facility] [address] [id number] [place] [address]- 6598 Dec, [facility] [place] [facility] [address] [id number] [place] 1813 Dec, [facility] [place] [facility] [address] [id number] [place] [address]- 0389 Dec, [facility] [place] [facility] [address] [id number] [place] [address]- 2826 Nov, [facility] [place] [facility] [address] [id number] [place] [address]- 8703 Nov, [facility] [place] [facility] [address] [id number] [place] [address]- 2829 Nov, [facility] [place] [facility] [address] [id number] [place] [address]- 6615 Nov, [facility] [place] [facility] [address] [id number] [place] [address]- 8121 October, [facility] [place] [facility] [address] [id number] [place] [address]- 5008 October, [facility] [place] [facility] [address] [id number] [place] [address]- 2703 Sep, [facility] [place] [facility] [address] [id number] [place] [address]- 1306 Sep, [facility] [place] [facility] [address] [id number] [place] [address]- 1017 Sep, [facility] [place] [facility] [address] [id number] [place] [address]- 4235 Sep, [facility] [place] [facility] [address] [id number] [place] [address]- 8618 Sep, [facility] [place] [facility] [address] [id number] [place] [address]- 6019 Sep, [facility] [place] [facility] [address] [id number] [place] [address]- 6496 Sep, [facility] [place] [facility] [address] [id number] [place] [address]- 4250 Sep, [facility] [place] [facility] [address] [id number] [place] [address]- 6207 Sep, [facility] [place] [facility] [address] [id number] [place] [address]- 9426 Sep, [facility] [place] [facility] [address] [id number] [place] [address]- 4048 Jul, [facility] [place] [facility] [address] [id number] [place] [address]- 4755 Jul, [facility] [place] [facility] [address] [id number] [place] [address]- 8467 Jul, [facility] [place] [facility] [address] [id number] [place] [address] Jul, [facility] [place] [facility] [address] [id number] [place] [address] Jun, [facility] [place] [facility] [address] [id number] [place] [address] Jun, [facility] [place] [facility] [address] [id number] [place] [address] Jun, [facility] [place] [facility] [address] [id number] [place] [address] Jun, [facility] [place] [facility] [address] [id number] [place] [address] Jun, [facility] [place] [facility] [address] [id number] [place] [address] Jun, [facility] [place] [facility] [address] [id number] [place] [address] Apr, [facility] [place] [facility] [address] [id number] [place] [address] Apr, [facility] [place] [facility] [address] [id number] [place] [address] Apr, [facility] [place] [facility] [address] [id number] [id number] [address] Apr, [facility] [place] [facility] [address] [id number] [place] [address] Apr, [facility] [place] [facility] [address] [id number] [place] [address] Apr, [facility] [place] [facility] [address] [id number] [place] [address] Apr, [facility] [place] [facility] [address] [id number] [place] [address] Apr, [facility] [place] [facility] [address] [id number] [place] [address] Mar, [facility] [place] [facility] [address] [id number] [place] [address] Mar, [facility] [place] [facility] [address] [id number] [place] [address] Feb, [facility] [place] [facility] [address] [id number] [place] [address] Feb, [facility] [place] [facility] [address] [id number] [place] [address] Dec, [facility] [place] [facility] [address] [id number] [address] Dec, [facility] [place] [facility] [address] [id number] [place] [address] Dec, [facility] [place] [facility] [address] [id number] [place] [address] Dec, [facility] [place] [facility] [address] [id number] [place] [address] Dec, [facility] [place] [facility] [address] [id number] [place] [address] Dec, [facility] [address] [id number] [place] [address] Dec, [facility] [address] [id number] [place] [address] Nov, [facility] [address] [id number] [place] [address] Nov, [facility] [address] [id number] [place] [address] Nov, [facility] [address] [id number] [place] [address] Nov, [facility] [address] [id number] [place] [address] October, [facility] [address] [id number] [place] [address] October, [facility] [address] [id number] [place] [address] October, [facility] [address] [id number] [place] [address] October, [facility] [address] [id number] [place] [address] Sep, [facility] [address] [id number] [place] [address] Aug, [facility] [address] [id number] [place] [address] Aug, [facility] [address] [id number] [place] [address] Aug, [facility] [address] [id number] [place] [address] Aug, [facility] [address] [id number] [place] [address] Aug, [facility] [address] [id number] [place] [address] Jul, [facility] [place] [facility] [address] [id number] [place] [address] Jul, [facility] [address] [id number] [place] [address] Jul, [facility] [place] [facility] [address] [id number] [place] [address] Jul, [facility] [address] [id number] [place] [address] Jul, [facility] [place] [facility] [address] [id number] [place] [address] Jul, [facility] [address] [id number] [place] [address] Jul, [facility] [place] [facility] [address] [id number] [place] [address] 15 Jul, 2012 [facility] [address] [id number] [place] [address] 14 Jul, 2012 [facility] [address] [id number] [place] [address] 265[address] Jul, [facility] [address] [id number] [place] [address] Jun, [facility] [place] [facility] [address] [id number] [place] [address] Jun, [facility] [place] [facility] [address] [id number] [place] [address] 4026 Jun, [facility] [place] [facility] [address] [id number] [place] [address] May, [facility] [place] [facility] [address] [id number] [place] [address] 2086 May, [facility] [place] [facility] [address] [id number] [place] [address] 2688 Apr, [facility] [place] [facility] [address] [id number] [place] [address] 4280 Apr, [facility] [place] [facility] [address] [id number] [place] [address] 45[address] Apr, [facility] [place] [facility] [address] [id number] [place] [address] 8[address] Apr, [facility] [place] [facility] [address] [id number] [place] [address]858 Apr, [facility] [place] [facility] [address] [id number] [place] [address] Apr, [facility] [place] [facility] [address] [id number] [place] [address] 8655 Apr, [facility] [place] [facility] [address] [id number] [place] [address] Apr, [facility] [place] [facility] [address] [id number] [place] [address] Mar, [facility] [place] [facility] [address] [id number] [place] [address] 1676 31 Mar, 2012 [facility] [place] [facility] [address] [id number] [place] [address] 8425 31 Mar, 2012 [facility] [place] [facility] [address] [id number] [place] [address] 489[address] 31 Mar, 2012 [facility] [place] [facility] [address] [id number] [address] 15 Mar, 2012 [facility] [place] [facility] [address] [id number] [place] [address] 4254 15 Mar, 2012 [facility] [place] [facility] [address] [id number] [place] [address] Mar, [facility] [place] [facility] [address] [id number] [place] [address] 2183 Mar, [facility] [place] [facility] [address] [id number] [place] [address] 1549 Mar, [facility] [place] [facility] [address] [id number] [place] [address] 0606 Feb, [facility] [place] [facility] [address] [id number] [place] [address] 2546 Jan, [facility] [place] [facility] [address] [id number] [place] [address] 25[address] Jan, [facility] [place] [facility] [address] [id number] [place] [address] 395[address] Jan, [facility] [place] [facility] [address] [id number] [place] [address] 4876 Dec, [facility] [place] [facility] [address] [id number] [place] [address] 8034 Dec, [facility] [place] [facility] [address] [id number] [place] [address] 8809 Dec, [facility] [place] [facility] [address] [id number] [place] [address] 0519 Nov, [facility] [place] [facility] [address] [id number] [place] [address] 0986 October, [facility] [place] [facility] [address] [id number] [place] [address] 1006 October, [facility] [place] [facility] [address] [id number] [place] [address] 4846 October, [facility] [place] [facility] [address] [id number] [place] [address] 6756 October, [facility] [place] [facility] [address] [id number] [place] [address] 0306 October, [facility] [place] [facility] [address] [id number] [place] [address] 6726 Sep, [facility] [place] [facility] [address] [id number] [place] [address]- 3136 23 Sep, 2011 [facility] [address] [id number] [place] [address]- 6566 13 Sep, 2011 [facility] [place] [facility] [address] [id number] [place] [address]- 8696 12 Sep, 2011 [facility] [place] [facility] [address] [id number] [place] [address]- 1316 12 Sep, 2011 [facility] [place] [facility] [address] [id number] [place] [address]- 0859 11 Sep, 2011 [facility] [place] [facility] [address] [id number] [place] [address]- 4779 11 Sep, 2011 [facility] [place] [facility] [address] [id number] [place] [address]- 6940 28 Aug, 2011 [facility] [address] [id number] [place] [address]- 3322 23 Aug, 2011 [facility] [place] [facility] [address] [id number] [place] [address]- 1426 21 Aug, 2011 [facility] [place] [facility] [address] [id number] [place] [address] 9344 21 Aug, 2011 [facility] [place] [facility] [address] [id number] [place] [address] 3946 20 Aug, 2011 [facility] [place] [facility] [address] [id number] [place] [address]- 1547 19 Aug, 2011 [facility] [place] [facility] [address] [id number] [place] [address]- 5784 16 Aug, 2011 [facility] [place] [facility] [address] [id number] [place] [address]- 4124 15 Aug, 2011 [facility] [place] [facility] [address] [id number] [place] [address]- 8592 15 Aug, 2011 [facility] [place] [facility] [address] [id number] [place] [address]- 1039 14 Aug, 2011 [facility] [place] [facility] [address] [id number] [place] [address] 9115 Aug, [facility] [place] [facility] [address] [id number] [place] [address] Aug, [facility] [place] [facility] [address] [id number] [place] [address]- 8636 15 Jul, 2011 [facility] [place] [facility] [address] [id number] [place] [address]- 5866 15 Jul, 2011 [facility] [place] [facility] [address] [id number] [place] [address]- 5738 14 Jul, 2011 [facility] [place] [facility] [address] [id number] [place] [address]- 6646 Jul, [facility] [address] [id number] [place] [address]- 2699 Jul, [facility] [place] [facility] [address] [id number] [place] [address]- 1088 Jun, [facility] [place] [facility] [address] [id number] [place] [address]- 6910 Jun, [facility] [address] [id number] [place] [address]- 4186 Jun, [facility] [place] [facility] [address] [id number] [place] [address]- 7091 May, [facility] [place] [facility] [address] [id number] [place] [address]- 0465 May, [facility] [place] [facility] [address] [id number] [place] [address]- 7549 May, [facility] [place] [facility] [address] [id number] [place] [address] May, [facility] [place] [facility] [address] [id number] [place] [address]- 1986 May, [facility] [place] [facility] [address] [id number] [place] [address] 4370 16 Apr, 2011 [facility] [place] [facility] [address] [id number] [place] [address]- 0863 16 Apr, 2011 [facility] [place] [facility] [address] [id number] [place] [address]- 0882 15 Apr, 2011 [facility] [place] [facility] [address] [id number] [place] [address]- 9788 14 Apr, 2011 [facility] [place] [facility] [address] [id number] [place] [address]- 6937 25 Mar, 2011 [facility] [place] [facility] [address] [id number] [place] [address]- 3868 24 Mar, 2011 [facility] [place] [facility] [address] [id number] [place] [address]- 5667 19 Mar, 2011 [facility] [place] [facility] [address] [id number] [place] [address]- 3407 19 Mar, 2011 [facility] [place] [facility] [address] [id number] [place] [address]- 4435 17 Mar, 2011 [facility] [place] [facility] [address] [id number] [place] [address]- 9122 17 Mar, 2011 [facility] [place] [facility] [address] [id number] [place] [address]- 1572 16 Feb, 2011 [facility] [place] [facility] [address] [id number] [address]- 7948 Nov, [facility] [place] [facility] [address] [id number] [place] [address]- 0182 17 Aug, 2010 [facility] [place] [facility] [address] [id number] [place] [address]- 7413 11 Apr, 2010 [facility] [place] [facility] [address] [id number] [place] [address]- 6887 16 Mar, 2010 [facility] [place] [facility] [address] [id number] [place] [address]- 6237 Apr, [facility] [place] [facility] [address] [id number] [place] [address] 2566 Apr, [facility] [address] [id number] [place] [address]- [address]185 Sep, [facility] [address] [id number] [place] [address]- 3[address] Mar, IMMUNIZATIONS No Known Immunizations SOCIAL HISTORY Never Assessed REASON FOR VISIT Medication Clarification PLAN OF CARE VITAL SIGNS MEDICATIONS Medication Instructions Dosage Frequency Start Date End Date Duration Status Actos 30 MG Orally Once a day 1/2 tablet 24h Feb, Active RESULTS No Results PROCEDURES No Known procedures INSTRUCTIONS MEDICATIONS ADMINISTERED No Known Medications MEDICAL [...]
--- OUTSIDE RECORDS SUMMARY | 2018-06-19 13:19 | XMS REPORT ---
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 Phone ARISTEO ARAYA Unavailable PROBLEMS Type Condition ICD9-CM Code AVI41-XX Code Onset Dates Condition Status SNOMED Code Problem Eosinophilic colitis K52.82 Active 52762525 Problem Other chronic gastritis without hemorrhage K29.50 Active 4380173 Problem Unsteady gait R26.81 Active 99258429 Problem Controlled type 2 diabetes mellitus without complication, without long -term current use of insulin E11.9 Active 621271152 Problem Acute right-sided low back pain with right-sided sciatica M54.41 Active 910569703 Problem Sacral pain M53.3 Active 39015016 Problem Non morbid obesity E66.9 Active 065073641 Problem Paresthesias in left hand R20.2 Active 248330059 Problem GERD with esophagitis K21.0 Active 119646658 Problem Other chronic pain G89.29 Active 72459607 Problem Bronchitis J40 Active 70266645 Problem Migraine without aura and without status migrainosus, not intractable G43.009 Active 831034899 Problem Hypertension, benign I10 Active 74496380 Problem Fibromyalgia M79.7 Active 129625535 Problem Non morbid obesity due to excess calories E66.09 Active 214281330 ALLERGIES No Information ENCOUNTERS Encounter Location Date Diagnosis [facility] [address] [address] May, [facility] [id number] [place] [address] 78259- 5404 15 Apr, 2018 BMI 40.0-44.9, adult Z68.41 [facility] [id number] [place] [address] 81462- 0605 12 Apr, 2018 [facility] [id number] [place] [address] 13552- 1694 Mar, Pyelonephritis N12 and BMI 40.0-44.9, adult Z68.[address] 43500- 9720 17 Feb, 2018 BMI 40.0-44.9, adult Z68.41 and Body aches R52 [facility] [id number] [place] [address] 08745 -7377 08 Feb, 2018 Allergic reaction to drug, initial encounter T78.40XA [address] [address]20- 2111 07 Feb, 2018 BMI 40.0-44.9, adult Z68.41 ; Hypertension, benign I10 ; Non morbid obesity due to excess calories E66.09 and Controlled type 2 diabetes mellitus without complication, without long-term current use of insulin E11.[address] 22703- 3757 Jan, Impacted cerumen of right ear H61.[address] 38275- 4499 Jan, Bilious vomiting with nausea R11.14 ; BMI 40.0-44.9, adult Z68.41 ; Hypertension, benign I10 and Fibromyalgia M79.7 [id number] [place] [address] 79090- 9068 Dec, Bilious vomiting with nausea R11.14 and Tachycardia R00.0 [id number] [place] [address] 28269- 8122 Nov, [address] 98889- 3932 Nov, BMI 40.0-44.9, adult Z68.41 ; Leg edema R60.0 and Hypertension, benign I10 [id number] [place] [address] 12011- 0909 Nov, [id number] [address] October, Thoracic neuritis M54.14 [place] [address] 01249- 3734 October, Acute right hip pain M25.551 [place] [address] 57714- 3982 October, [place] [address] 23897- 5085 Sep, Hypertension, benign I10 and Acute right-sided low back pain with right-sided sciatica M54.41 [place] [address] 00045- 0347 Sep, Fibromyalgia M79.7 and Hypertension, benign I10 [place] [address] 15846- 1682 Aug, [place] [address] 95746- 9858 Aug, Fibromyalgia M79.7 ; Frequent headaches R51 and Non morbid obesity due to excess calories E66.09 [place] [address] 72235- 3497 Jul, [place] [id number] [place] [address] 43593- 7502 Jul, Fibromyalgia M79.7 [place] [address] 16043- 2833 Jul, Viral gastroenteritis A08.4 and Paresthesias in left hand R20.2 [place] [address] 75422- 9526 Jun, Non morbid obesity due to excess calories E66.09 [place] [id number] [place] [address] 83094- 4352 Jun, [place] [address] 06457- 7399 Jun, Fibromyalgia M79.7 [place] [address] 26064- 1543 May, Non morbid obesity due to excess calories E66.09 and Hypertension, benign I10 [place] [address] 33895- 4804 May, GERD with esophagitis K21.0 [place] [address] 49605- 7875 Apr, BMI 40.0-44.9, adult Z68.41 and Non morbid obesity E66.9 [place] [address] 21043- 1796 Mar, Unsteady gait R26.81 [place] [address] 66001- 1809 Mar, Unsteady gait R26.81 ; Sacral pain M53.3 and Fibromyalgia M79.7 [place] [id number] [place] [address] 88170- 9999 Mar, Non morbid obesity due to excess calories E66.09 [place] [id number] [place] [address] 17086- 2864 Feb, Abdominal pain, generalized R10.84 [place] [id number] [place] [address] 25569- 3671 18 Feb, 2017 Other chronic gastritis without hemorrhage K29.50 and H. pylori infection A04.8 [place] [id number] [place] [address] 12369- 9497 Feb, Back pain 724.5 ; Pain in left shoulder M25.512 ; Fibromyalgia M79.7 and Non morbid obesity due to excess calories E66.09 [place] [id number] [place] [address] 34776- 3496 07 Feb, 2017 BMI 40.0-44.9, adult Z68.41 [place] [id number] [place] [address] 74408- 8262 14 Jan, 2017 Dysuria R30.0 and Acute cystitis with hematuria N30.01 [place] [address] 84352- 6754 Jan, Dysuria R30.0 [place] [address] 34482- 7838 Dec, Fibromyalgia M79.7 [place] [address] 33759- 4484 Dec, Screening for diabetes mellitus Z13.1 and Fibromyalgia M79.[address] 02055- 6629 Dec, Fibromyalgia M79.[address] 61870- 8145 Dec, [place] [address] 08531- 7459 Dec, Fibromyalgia M79.[address] 44741- 2990 Nov, Foreign body in foot, left, initial encounter S90.852A [address] 91706- 6970 16 Nov, 2016 Viral gastroenteritis A08.4 [place] [address] 39374- 2765 09 Nov, 2016 Fall, initial encounter W19.XXXA ; Post-traumatic headache, unspecified, not intractable G44.309 ; Dizziness R42 ; Unsteady gait R26.81 ; Sacral pain M53.3 and Non morbid obesity due to excess calories E66.[address] 03829- 4594 08 Nov, 2016 [place] [address] 72709- 3365 Nov, [place] [id number] [place] [address] 20749- 2311 October, Non morbid obesity due to excess calories E66.09 and Hypertension, benign I10 [place] [id number] [place] [address] 26440- 8696 October, Fibromyalgia M79.7 [place] [id number] [place] [address] 72551- 6062 Sep, [place] [id number] [place] [address] 37500- 6124 Sep, [place] [id number] [place] [address] 81670- 9688 Sep, Eosinophilic colitis K52.82 [place] [id number] [place] [address] 96286- 7041 Aug, Bronchitis J40 [place] [id number] [place] [address] 41001- 9592 Aug, [place] [id number] [place] [address] 77055- 9517 Aug, Pain in left shoulder M25.512 ; Bronchitis J40 ; Acute midline back pain, unspecified location M54.9 ; Migraine without aura and without status migrainosus, not intractable G43.009 ; Fibromyalgia M79.7 and Pain of upper abdomen R10.10 [place] [address] [place] [address] 12293- 5072 Aug, [place] [id number] [place] [address] 29662- 6243 Aug, [place] [id number] [place] [address] 80842- 1728 Jul, Other viral agents as the cause of diseases classified elsewhere B97.89 and Acute upper respiratory infection, unspecified J06.9 [place] [id number] [place] [address] 91535- 5835 Jun, [facility] [address] [address] Jun, [facility] [id number] [place] [address] 72196- 4903 May, Abscess L02.91 [facility] [address] [address]- 1459 May, Acute midline low back pain without sciatica M54.5 [facility] [id number] [place] [address] 61812 -8005 May, [facility] [id number] [place] [address] 67241- 8727 Apr, [facility] [id number] [place] [address] 14514- 1020 Apr, Other chronic pain G89.29 ; Pain in right shoulder M25.511 and Pain in left shoulder M25.512 [facility] [address] [address]- 2422 16 Apr, 2016 [facility] [id number] [place] [address] 01954- 4872 Apr, [facility] [id number] [place] [address] 49268- 3389 Apr, Fibromyalgia M79.7 ; Other chronic pain G89.29 and Pain in left shoulder M25.512 [facility] [address] [address]- 4319 Apr, Bronchitis J40 [facility] [address] [address]- 4175 Mar, [facility] [id number] [id number] Mar, [facility] [address] [address]- 6589 Feb, [facility] [address] [address]- 3154 26 Feb, 2015 [facility] [id number] [place] [address] 52794- 3351 23 Feb, 2015 [facility] [id number] [address]- 0012 22 Feb, 2015 [facility] [id number] [place] [address] 10825- 7358 20 Feb, 2015 [facility] [id number] [place] [address] 25128- 7078 19 Feb, 2015 [facility] [id number] [place] [address] 38576- 1061 19 Feb, 2015 Dysuria R30.0 [facility] [id number] [place] [address] 39758- 6115 19 Feb, 2015 Dysuria R30.0 [facility] [id number] [place] [address] 11349- 3672 16 Feb, 2015 [facility] [address] [place] [address] 32870- 4881 15 Feb, 2016 Migraine, unspecified, not intractable, without status migrainosus G43.909 and Fibromyalgia M79.7 [facility] [address] [address]- 7370 06 Feb, 2016 Migraine without aura and without status migrainosus, not intractable G43.009 [facility] [address] [address]- 5251 Jan, [facility] [address] [place] [address] 58331- 1905 Jan, [facility] [address] [address]- 7282 Jan, [facility] [address] [address]- 1696 Jan, [facility] [address] 06963- 8360 Jan, Unsteady gait R26.81 ; Fibromyalgia M79.7 and Family history of rheumatoid arthritis Z82.61 [place] [address] 15692- 3603 Dec, [place] [address] 37446- 7904 Dec, [place] [address] 42442- 8056 Nov, Pain in left shoulder M25.512 [place] [address] 66561- 0897 October, Viral gastroenteritis A08.4 [facility] [address] 67958 -0329 October, Pain of upper abdomen R10.10 [place] [address] 60913- 5633 October, Acute midline back pain, unspecified location M54.9 [place] [address] 49316- 8276 Aug, Elbow pain, right M25.521 [place] [address] 60407- 1285 Aug, Elbow pain, right M25.521 [place] [address] 13297- 9382 Aug, Pain of right upper extremity M79.601 [place] [address] 90193- 4075 Jun, Lumbar neuritis M54.16 [place] [address] 06605- 0538 May, [place] [address] 55324- 1295 Apr, Non morbid obesity due to excess calories E66.09 [facility] [id number] [place] [address] 21211- 0749 Apr, Non morbid obesity due to excess calories E66.09 and Thoracic neuritis M54.14 [facility] [id number] [place] [address] 38118- 4054 Apr, Elbow pain, right M25.521 [facility] [address] 95891- 9860 Mar, Right elbow pain M25.521 [place] [address] 58551- 3424 Mar, [place] [id number] [place] [address] 87180- 7320 Feb, Urinary tract infection, site not specified 599.0 [place] [address] 38598- 3750 Feb, [place] [id number] [place] [address] 63046- 1649 Jan, Spider bite 989.5 [place] [address] 76149- 8669 Jan, Spider bite 989.5 [place] [id number] [place] [address] 99637- 1579 Jan, Spider bite 989.5 [place] [id number] [place] [address] 31568- 7381 10 Nov, 2014 Back pain 724.5 and Diabetes 250.00 [place] [address] 88253- 5379 Nov, Back pain 724.5 and Muscle spasm of back 724.8 [place] [id number] [place] [address] 14637- 3416 Nov, Alternating constipation and diarrhea 787.99 [place] [address] [id number] [place] [address]- 1258 October, Back pain 724.5 and Hip pain 719.45 [facility] [place] [facility] [address] [id number] [place] [address]- 9075 14 Sep, 2014 [facility] [place] [facility] [address] [facility] [id number] [place] [address]- 2794 Sep, [facility] [place] [facility] [address] [id number] [address]- 8872 Aug, [facility] [place] [facility] [address] [id number] [place] [address]- 3886 Aug, [facility] [place] [facility] [address] [id number] [place] [address]- 3989 Aug, [facility] [place] [facility] [address] [id number] [place] [address]- 2629 Aug, [facility] [place] [facility] [address] [id number] [address]- 4288 Aug, [facility] [place] [facility] [address] [id number] [place] [address]- 1892 Aug, [facility] [place] [facility] [address] [facility] [id number] [place] [address]- 4718 Jul, [facility] [place] [facility] [address] [id number] [place] [address]- 1235 Jul, [facility] [place] [facility] [address] [id number] [place] [address]- 7124 Jun, [facility] [place] [facility] [address] [id number] [place] [address]- 1514 Jun, [facility] [place] [facility] [address] [facility] [id number] [place] [address]- 3409 Jun, [facility] [place] [facility] [address] [facility] [id number] [address]- 9439 Jun, [facility] [place] [facility] [address] [id number] [place] [address]- 6505 15 Jun, 2014 [facility] [address] [id number] [place] [address]- 7145 Jun, [facility] [place] [facility] [address] [id number] [place] [address]- 8901 Jun, [facility] [address] [id number] [place] [address]- 8757 May, [facility] [place] [facility] [address] [id number] [place] [address]- 6217 May, [facility] [place] [facility] [address] [id number] [place] [address]- 6093 May, [facility] [place] [facility] [address] [id number] [place] [address]- 0286 May, [facility] [place] [facility] [address] [id number] [place] [address]- 6018 Apr, [facility] [place] [facility] [address] [id number] [place] [address]- 4724 Apr, [facility] [place] [facility] [address] [id number] [place] [address]- 0080 Mar, [facility] [place] [facility] [address] [id number] [place] [address]- 6970 Mar, [facility] [place] [facility] [address] [id number] [place] [address]- 1993 Mar, [facility] [place] [facility] [address] [id number] [place] [address]- 5760 24 Mar, 2014 [facility] [place] [facility] [address] [id number] [place] [address]- 7632 Mar, [facility] [place] [facility] [address] [id number] [place] [address]- 3272 15 Mar, 2014 [facility] [place] [facility] [address] [id number] [place] [address]- 3433 Mar, [facility] [place] [facility] [address] [id number] [place] [address]- 5235 Mar, [facility] [place] [facility] [address] [id number] [place] [address]- 5363 Mar, [facility] [place] [facility] [address] [id number] [place] [address]- 6883 Mar, [facility] [place] [facility] [address] [id number] [place] [address]- 0227 Feb, [facility] [place] [facility] [address] [id number] [place] [address]- 3948 Feb, [facility] [place] [facility] [address] [id number] [place] [address]- 3972 Jan, [facility] [place] [facility] [address] [id number] [place] [address]- 1157 Jan, [facility] [place] [facility] [address] [id number] [place] [address]- 0452 Jan, [facility] [place] [facility] [address] [id number] [place] [address]- 1186 Jan, [facility] [place] [facility] [address] [id number] [place] [address]- 5176 Jan, [facility] [place] [facility] [address] [id number] [place] [address]- 5758 Jan, [facility] [place] [facility] [address] [id number] [address]- 0997 Jan, [facility] [place] [facility] [address] [id number] [place] [address]- 0997 Jan, [facility] [place] [facility] [address] [id number] [place] [address]- 7873 Jan, [facility] [place] [facility] [address] [id number] [place] [address]- 1449 Jan, [facility] [place] [facility] [address] [id number] [place] [address]- 8411 Dec, [facility] [place] [facility] [address] [id number] [place] [address]- 3739 Dec, [facility] [place] [facility] [address] [id number] [place] 9119 Dec, [facility] [place] [facility] [address] [id number] [place] [address]- 3400 Dec, [facility] [place] [facility] [address] [id number] [place] [address]- 0901 Nov, [facility] [place] [facility] [address] [id number] [place] [address]- 6987 Nov, [facility] [place] [facility] [address] [id number] [place] [address]- 0949 Nov, [facility] [place] [facility] [address] [id number] [place] [address]- 0854 Nov, [facility] [place] [facility] [address] [id number] [place] [address]- 6351 October, [facility] [place] [facility] [address] [id number] [place] [address]- 3546 October, [facility] [place] [facility] [address] [id number] [place] [address]- 6384 Sep, [facility] [place] [facility] [address] [id number] [place] [address]- 8210 Sep, [facility] [place] [facility] [address] [id number] [place] [address]- 7574 Sep, [facility] [place] [facility] [address] [id number] [place] [address]- 7816 Sep, [facility] [place] [facility] [address] [id number] [place] [address]- 4410 Sep, [facility] [place] [facility] [address] [id number] [place] [address]- 9795 Sep, [facility] [place] [facility] [address] [id number] [place] [address]- 7154 Sep, [facility] [place] [facility] [address] [id number] [place] [address]- 1351 Sep, [facility] [place] [facility] [address] [id number] [place] [address]- 2031 Sep, [facility] [place] [facility] [address] [id number] [place] [address]- 8720 Sep, [facility] [place] [facility] [address] [id number] [place] [address] Jul, [facility] [place] [facility] [address] [id number] [place] [address] Jul, [facility] [place] [facility] [address] [id number] [place] [address] Jul, [facility] [place] [facility] [address] [id number] [place] [address] Jul, [facility] [place] [facility] [address] [id number] [place] [address] Jun, [facility] [place] [facility] [address] [id number] [place] [address] Jun, [facility] [place] [facility] [address] [id number] [place] [address] Jun, [facility] [place] [facility] [address] [id number] [place] [address] Jun, [facility] [place] [facility] [address] [id number] [place] [address] Jun, [facility] [place] [facility] [address] [id number] [place] [address] Jun, [facility] [place] [facility] [address] [id number] [place] [address] Apr, [facility] [place] [facility] [address] [id number] [place] [address] Apr, [facility] [place] [facility] [address] [id number] [place] [address] Apr, [facility] [place] [facility] [address] [id number] [place] [address] Apr, [facility] [place] [facility] [address] [id number] [place] [address] Apr, [facility] [place] [facility] [address] [id number] [place] [address] Apr, [facility] [place] [facility] [address] [id number] [place] [address] Apr, [facility] [place] [facility] [address] [id number] [place] [address] Apr, [facility] [place] [facility] [address] [id number] [place] [address] Mar, [facility] [place] [facility] [address] [id number] [place] [address] Mar, [facility] [place] [facility] [address] [id number] [place] [address] Feb, [facility] [place] [facility] [address] [id number] [place] [address] Feb, [facility] [place] [facility] [address] [id number] [place] [address] Dec, [facility] [place] [facility] [address] [id number] [address] Dec, [facility] [place] [facility] [address] [id number] [place] [address] Dec, [facility] [place] [facility] [address] [id number] [place] [address] Dec, [facility] [place] [facility] [address] [id number] [place] [address] Dec, [facility] [place] [facility] [address] [id number] [place] [address] Dec, [facility] [place] [address] [id number] [place] [address] Dec, [facility] [address] [id number] [place] [address] Nov, [facility] [address] [id number] [place] [address] Nov, [facility] [address] [id number] [place] [address] Nov, [facility] [address] [id number] [place] [address] Nov, [facility] [address] [id number] [place] [address] October, [facility] [address] [id number] [place] [address] October, [facility] [address] [id number] [place] [address] October, [facility] [address] [id number] [place] [address] October, [facility] [address] [id number] [place] [address] Sep, [facility] [address] [id number] [place] [address] Aug, [facility] [address] [id number] [place] [address] Aug, [facility] [address] [id number] [place] [address] Aug, [facility] [address] [id number] [place] [address] Aug, [facility] [address] [id number] [place] [address] Aug, [facility] [address] [id number] [place] [address] Jul, [facility] [place] [facility] [address] [id number] [place] [address] Jul, [facility] [address] [id number] [place] [address] Jul, [facility] [place] [facility] [address] [id number] [place] [address] Jul, [facility] [address] [id number] [place] [address] Jul, [facility] [place] [facility] [address] [id number] [place] [address] Jul, [facility] [address] [id number] [place] [address] Jul, [facility] [place] [facility] [address] [id number] [place] [address] 15 Jul, 2012 [facility] [address] [id number] [place] [address] 14 Jul, 2012 [facility] [address] [id number] [place] [address]60 Jul, [facility] [address] [id number] [place] [address] Jun, [facility] [place] [facility] [address] [id number] [place] [address] Jun, [facility] [place] [facility] [address] [id number] [place] [address]36 Jun, [facility] [place] [facility] [address] [id number] [place] [address] May, [facility] [place] [facility] [address] [id number] [place] [address] May, [facility] [place] [facility] [address] [id number] [place] [address] Apr, [facility] [place] [facility] [address] [id number] [place] [address] Apr, [facility] [place] [facility] [address] [id number] [place] [address] Apr, [facility] [place] [facility] [address] [id number] [place] [address] Apr, [facility] [place] [facility] [address] [id number] [place] [address] 3978 Apr, [facility] [place] [facility] [address] [id number] [place] [address] 86[address] Apr, [facility] [place] [facility] [address] [id number] [place] [address] Apr, [facility] [place] [facility] [address] [id number] [place] [address] Apr, [facility] [place] [facility] [address] [id number] [place] [address] Mar, [facility] [place] [facility] [address] [id number] [place] [address] 31 Mar, 2012 [facility] [place] [facility] [address] [id number] [place] [address] 39[address] 31 Mar, 2012 [facility] [place] [facility] [address] [id number] [place] [address] 31 Mar, 2012 [facility] [place] [facility] [address] [id number] [address] 15 Mar, 2012 [facility] [place] [facility] [address] [id number] [place] [address]91 15 Mar, 2012 [facility] [place] [facility] [address] [id number] [place] [address] Mar, [facility] [place] [facility] [address] [id number] [place] [address] 17[address] Mar, [facility] [place] [facility] [address] [id number] [place] [address] 99[address] Mar, [facility] [place] [facility] [address] [id number] [place] [address] Feb, [facility] [place] [facility] [address] [id number] [place] [address] Jan, [facility] [place] [facility] [address] [id number] [place] [address] Jan, [facility] [place] [facility] [address] [id number] [place] [address] Jan, [facility] [place] [facility] [address] [id number] [place] [address] 1646 Dec, [facility] [place] [facility] [address] [id number] [place] [address] Dec, [facility] [place] [facility] [address] [id number] [place] [address] 0272 Dec, [facility] [place] [facility] [address] [id number] [place] [address] Nov, [facility] [place] [facility] [address] [id number] [place] [address] October, [facility] [place] [facility] [address] [id number] [place] [address] 17[address] October, [facility] [place] [facility] [address] [id number] [place] [address] October, [facility] [place] [facility] [address] [id number] [place] [address] October, [facility] [place] [facility] [address] [id number] [place] [address] 1406 October, [facility] [place] [facility] [address] [id number] [place] [address]- 1146 Sep, [facility] [place] [facility] [address] [id number] [place] [address]- [address]115 23 Sep, 2011 [facility] [address] [id number] [place] [address]- 3726 13 Sep, 2011 [facility] [place] [facility] [address] [id number] [place] [address]- 7996 12 Sep, 2011 [facility] [place] [facility] [address] [id number] [place] [address]- 5736 12 Sep, 2011 [facility] [place] [facility] [address] [id number] [place] [address]- 9505 11 Sep, 2011 [facility] [place] [facility] [address] [id number] [place] [address]- 5809 11 Sep, 2011 [facility] [place] [facility] [address] [id number] [place] [address] 28 Aug, 2011 [facility] [address] [id number] [place] [address]- [address]76 23 Aug, 2011 [facility] [place] [facility] [address] [id number] [place] [address]- 6474 21 Aug, 2011 [facility] [place] [facility] [address] [id number] [place] [address]- 5822 21 Aug, 2011 [facility] [place] [facility] [address] [id number] [place] [address]- 9714 20 Aug, 2011 [facility] [place] [facility] [address] [id number] [place] [address]- 7803 19 Aug, 2011 [facility] [place] [facility] [address] [id number] [place] [address]- 6166 16 Aug, 2011 [facility] [place] [facility] [address] [id number] [place] [address]- 1609 15 Aug, 2011 [facility] [place] [facility] [address] [id number] [place] [address]- 0982 15 Aug, 2011 [facility] [place] [facility] [address] [id number] [place] [address]- 8398 14 Aug, 2011 [facility] [place] [facility] [address] [id number] [place] [address]- 2117 Aug, [facility] [place] [facility] [address] [id number] [place] [address] Aug, [facility] [place] [facility] [address] [id number] [place] [address]- 5296 15 Jul, 2011 [facility] [place] [facility] [address] [id number] [place] [address]- 6166 15 Jul, 2011 [facility] [place] [facility] [address] [id number] [place] [address]- 2028 14 Jul, 2011 [facility] [place] [facility] [address] [id number] [place] [address]- 7056 Jul, [facility] [address] [id number] [place] [address]- 0480 Jul, [facility] [place] [facility] [address] [id number] [place] [address]- 6058 Jun, [facility] [place] [facility] [address] [id number] [place] [address]- 9685 Jun, [facility] [address] [id number] [place] [address]- 3[address] Jun, [facility] [place] [facility] [address] [id number] [place] [address]- 7513 May, [facility] [place] [facility] [address] [id number] [place] [address]- 9033 May, [facility] [place] [facility] [address] [id number] [place] [address]- 7740 May, [facility] [place] [facility] [address] [id number] [place] [address] May, [facility] [place] [facility] [address] [id number] [place] [address]- 8243 May, [facility] [place] [facility] [address] [id number] [address] 16 Apr, 2011 [facility] [place] [facility] [address] [id number] [place] [address]- 3918 16 Apr, 2011 [facility] [place] [facility] [address] [id number] [place] [address]- 9965 15 Apr, 2011 [facility] [place] [facility] [address] [id number] [place] [address]- 9227 14 Apr, 2011 [facility] [place] [facility] [address] [id number] [place] [address]- 0813 25 Mar, 2011 [facility] [place] [facility] [address] [id number] [place] [address]- 8735 24 Mar, 2011 [facility] [place] [facility] [address] [id number] [place] [address]- 0585 19 Mar, 2011 [facility] [place] [facility] [address] [id number] [place] [address]- 5635 19 Mar, 2011 [facility] [place] [facility] [address] [id number] [place] [address]- 0567 17 Mar, 2011 [facility] [place] [facility] [address] [id number] [place] [address]- 3011 17 Mar, 2011 [facility] [place] [facility] [address] [id number] [place] [address]- 8860 16 Feb, 2011 [facility] [place] [facility] [address] [id number] [address] Nov, [facility] [place] [facility] [address] [id number] [place] [address]- 4098 17 Aug, 2010 [facility] [place] [facility] [address] [id number] [address]- 7[address] 11 Apr, 2010 [facility] [place] [facility] [address] [id number] [place] [address]- 4690 16 Mar, 2010 [facility] [place] [facility] [address] [id number] [place] [address]- 9263 Apr, [facility] [place] [facility] [address] [facility] [id number] [place] [address]- [address]456 09 Apr, 2009 [facility] [address] [facility] [id number] [place] [address]- 2426 Sep, [facility] [address] [facility] [id number] [place] [address]- 2772 17 Mar, 2008 IMMUNIZATIONS No Known Immunizations SOCIAL HISTORY Never Assessed REASON FOR VISIT Repository Medication PLAN OF CARE VITAL SIGNS MEDICATIONS Unknown Medications RESULTS No Results PROCEDURES No Known procedures [...]
--- OUTSIDE RECORDS SUMMARY | 2018-06-19 13:19 | XMS REPORT ---
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 Name Role Phone ARISTEO ARAYA Unavailable PROBLEMS Type Condition ICD9-CM Code DUP51-ST Code Onset Dates Condition Status SNOMED Code Problem Eosinophilic colitis K52.82 Active 62788499 Problem Other chronic gastritis without hemorrhage K29.50 Active 4285200 Problem Unsteady gait R26.81 Active 30794015 Problem Controlled type 2 diabetes mellitus without complication, without long -term current use of insulin E11.9 Active 868777134 Problem Acute right-sided low back pain with right-sided sciatica M54.41 Active 022773230 Problem Sacral pain M53.3 Active 61407438 Problem Non morbid obesity E66.9 Active 046671132 Problem Paresthesias in left hand R20.2 Active 439900540 Problem GERD with esophagitis K21.0 Active 479495507 Problem Other chronic pain G89.29 Active 78630368 Problem Bronchitis J40 Active 55972232 Problem Migraine without aura and without status migrainosus, not intractable G43.009 Active 327723211 Problem Hypertension, benign I10 Active 35114642 Problem Fibromyalgia M79.7 Active 048092689 Problem Non morbid obesity due to excess calories E66.09 Active 532085139 ALLERGIES Substance Reaction Event Type Date Status Singulair Unknown Drug Allergy Feb, Active Lisinopril Unknown Drug Allergy Feb, Active metals Unknown Non Drug Allergy Feb, Active ENCOUNTERS Encounter Location Date Diagnosis [facility] [address] [facility] [id number] [address] Feb, BMI 40.0-44.9, adult Z68.41 and Body aches R52 [facility] [address] [facility] [id number], [place] [address] 08 Feb, 2018 Allergic reaction to drug, initial encounter T78.40XA [place] [address] [address] 07 Feb, 2018 BMI 40.0-44.9, adult Z68.41 ; Hypertension, benign I10 ; Non morbid obesity due to excess calories E66.09 and Controlled type 2 diabetes mellitus without complication, without long-term current use of insulin E11.[address] [address] Jan, Impacted cerumen of right ear H61.21 [place] [address] [address]- 9707 Jan, Bilious vomiting with nausea R11.14 ; BMI 40.0-44.9, adult Z68.41 ; Hypertension, benign I10 and Fibromyalgia M79.7 [place] [address] [address]- 54[address] Dec, Bilious vomiting with nausea R11.14 and Tachycardia R00.0 [place] [address] [address]- [address] Nov, [address] [address]- 6727 Nov, BMI 40.0-44.9, adult Z68.41 ; Leg edema R60.0 and Hypertension, benign I10 [place] [address] 9[address]21- 0207 Nov, [place] [address] 84482- 8577 October, Thoracic neuritis M54.14 [place] [address] 69667- 1002 October, Acute right hip pain M25.551 [place] [address] 56220- 2981 October, [place] [address] 12525- 9073 Sep, Hypertension, benign I10 and Acute right-sided low back pain with right-sided sciatica M54.41 [place] [address] 79627- 9873 Sep, Fibromyalgia M79.7 and Hypertension, benign I10 [place] [address] 06308- 9446 Aug, [place] [address] 67623- 2860 Aug, Fibromyalgia M79.7 ; Frequent headaches R51 and Non morbid obesity due to excess calories E66.09 [place] [address] 03358- 7025 Jul, [place] [address] 80596- 6658 Jul, Fibromyalgia M79.7 [place] [address] 01268- 9075 Jul, Viral gastroenteritis A08.4 and Paresthesias in left hand R20.2 [place] [address] 38748- 1156 Jun, Non morbid obesity due to excess calories E66.09 [place] [address] 88972- 2492 Jun, [place] [address] 26137- 0333 Jun, Fibromyalgia M79.7 [place] [address] 26078- 4842 May, Non morbid obesity due to excess calories E66.09 and Hypertension, benign I10 [place] [address] 98511- 6075 May, GERD with esophagitis K21.0 [place] [address] [place] [address] 4[address] Apr, BMI 40.0-44.9, adult Z68.41 and Non morbid obesity E66.9 [place] [address] 96236- 0504 Mar, Unsteady gait R26.81 [place] [address] 84040- 2191 Mar, Unsteady gait R26.81 ; Sacral pain M53.3 and Fibromyalgia M79.[address] 31191- 9646 Mar, Non morbid obesity due to excess calories E66.09 [place] [address] 72518- 0131 28 Feb, 2017 Abdominal pain, generalized R10.[address] [address]- 4699 18 Feb, 2017 Other chronic gastritis without hemorrhage K29.50 and H. pylori infection A04.[address] 8[address]32- 3640 07 Feb, 2017 Back pain 724.5 ; Pain in left shoulder M25.512 ; Fibromyalgia M79.7 and Non morbid obesity due to excess calories E66.09 [place] [address] [place] [id number] [place] [address] 64497- 6436 07 Feb, 2017 BMI 40.0-44.9, adult Z68.41 [place] [address] 58471- 6718 Jan, Dysuria R30.0 and Acute cystitis with hematuria N30.[address] 83280- 6803 Jan, Dysuria R30.0 [place] [address] 22864- 7815 Dec, Fibromyalgia M79.7 [place] [address] [place] [id number] [place] [address] 32193- 7677 Dec, Screening for diabetes mellitus Z13.1 and Fibromyalgia M79.7 [place] [address] [place] [id number] [place] [address] 18730- 3181 Dec, Fibromyalgia M79.7 [place] [address] [place] [id number] [place] [address] 25306- 6213 Dec, [place] [address] 85156- 5534 Dec, Fibromyalgia M79.[address] 59473- 4316 Nov, Foreign body in foot, left, initial encounter S90.852A [address] 42046- 7666 Nov, Viral gastroenteritis A08.[address] 72862- 5285 Nov, Fall, initial encounter W19.XXXA ; Post-traumatic headache, unspecified, not intractable G44.309 ; Dizziness R42 ; Unsteady gait R26.81 ; Sacral pain M53.3 and Non morbid obesity due to excess calories E66.09 [place] [address] [place] [id number] [place] [address] 79781- 7714 Nov, [place] [address] 25797- 7835 Nov, [place] [address] [place] [id number] [place] [address] 08479- 6453 October, Non morbid obesity due to excess calories E66.09 and Hypertension, benign I10 [place] [address] [place] [id number] [place] [address] 03702- 5166 October, Fibromyalgia M79.7 [place] [address] 21259- 0557 Sep, [facility] [id number] [place] [address] 09038- 8247 Sep, [facility] [address] [place] [id number] [place] [address] 31518- 4368 Sep, Eosinophilic colitis K52.82 [facility] [address] [place] [id number] [place] [address] 70420- 6461 Aug, Bronchitis J40 [facility] [address] 07810- 2697 Aug, [place] [address] [place] [id number] [place] [address] 46663- 9215 Aug, Pain in left shoulder M25.512 ; Bronchitis J40 ; Acute midline back pain, unspecified location M54.9 ; Migraine without aura and without status migrainosus, not intractable G43.009 ; Fibromyalgia M79.7 and Pain of upper abdomen R10.10 [facility] [address] [place] [id number] [place] [address] 15430- 7310 Aug, [place] [address] [place] [id number] [place] [address] 55284- 0623 Aug, [facility] [address] [place] [id number] [place] [address] 43313- 7893 Jul, Other viral agents as the cause of diseases classified elsewhere B97.89 and Acute upper respiratory infection, unspecified J06.9 [facility] [address] [place] [id number] [place] [address] 75777- 8967 Jun, [facility] [id number] [place] [address] 36185 -7142 Jun, [facility] [address] [place] [id number] [place] [address] 12249- 9386 May, Abscess L02.91 [facility] [address] [place] [id number] [place] [address] 85950- 0165 May, Acute midline low back pain without sciatica M54.5 [facility] [address] [facility] [id number], [place] [address] May, [facility] [id number] [place] [address] 91404- 8236 Apr, [facility] [address] [address] 2546 Apr, Other chronic pain G89.29 ; Pain in right shoulder M25.511 and Pain in left shoulder M25.512 [facility] [address] [facility] [id number], [place] [address] 2546 16 Apr, 2016 [facility] [address] [place] [id number] [place] [address] 61451- 8936 Apr, [facility] [id number] [place] [address] 09462- 0058 Apr, Fibromyalgia M79.7 ; Other chronic pain G89.29 and Pain in left shoulder M25.512 [facility] [address], [place] [address]- 8643 Apr, Bronchitis J40 [facility] [address] [address] Mar, [facility] [id number] [id number] Mar, [facility] [address], [place] [address] 48[address] 29 Feb, 2016 [facility] [address] [address] 2547 26 Feb, 2016 [facility] [address], [place] [address] 2546 23 Feb, 2016 [facility] [address] [id number] [address] 2546 22 Feb, 2016 [facility] [address] [address] 2546 20 Feb, 2016 [facility] [address] [place] [id number] [place] [address] 70474- 5423 19 Feb, 2016 [facility] [address] 47422- 7943 19 Feb, 2016 Dysuria R30.0 [facility] [address] [place] [id number] [place] [address] 76567- 1853 19 Feb, 2016 Dysuria R30.0 [facility] [address] 21251- 0447 16 Feb, 2016 [facility] [address] [place] [id number] [place] [address] 43367- 3930 15 Feb, 2016 Migraine, unspecified, not intractable, without status migrainosus G43.909 and Fibromyalgia M79.7 [facility] [address] [place] [id number] [place] [address] 92251- 8547 06 Feb, 2016 Migraine without aura and without status migrainosus, not intractable G43.009 [facility] [address] [place] [id number] [place] [address] 63977- 7885 Jan, [facility] [address] 66808- 5130 Jan, [facility] [address] [place] [id number] [place] [address] 67971- 0916 Jan, [facility] [address] [place] [id number] [place] [address] 57539- 5663 Jan, [facility] [address] [place] [id number] [place] [address] 99117- 4368 Jan, Unsteady gait R26.81 ; Fibromyalgia M79.7 and Family history of rheumatoid arthritis Z82.61 [facility] [address] [place] [id number] [place] [address] 43647- 7057 Dec, [facility] [address] [place] [id number] [place] [address] 52281- 2109 Dec, [facility] [address] [place] [address]- 7823 Nov, Pain in left shoulder M25.512 [place] [address] 31871- 7020 October, Viral gastroenteritis A08.4 [facility] [address] [place] [id number] [place] [address] 66624 -6178 October, Pain of upper abdomen R10.10 [place] [address] 53505- 2348 October, Acute midline back pain, unspecified location M54.9 [place] [address] 07858- 9996 Aug, Elbow pain, right M25.521 [place] [address] 36739- 9192 Aug, Elbow pain, right M25.521 [place] [address] 29650- 7416 Aug, Pain of right upper extremity M79.601 [place] [address] 01581- 8907 Jun, Lumbar neuritis M54.16 [place] [address] 04630- 0800 May, [place] [address] 29415- 7539 Apr, Non morbid obesity due to excess calories E66.09 [place] [address] 35647- 4856 Apr, Non morbid obesity due to excess calories E66.09 and Thoracic neuritis M54.14 [place] [address] 49382- 4371 Apr, Elbow pain, right M25.521 [place] [address] 74285- 1390 Mar, Right elbow pain M25.521 [facility] [address] [place] [id number] [place] [address] 14792- 8846 Mar, [facility] [address] 03844- 8434 30 Feb, 2015 Urinary tract infection, site not specified 599.0 [facility] [address] 35049- 6644 14 Feb, 2015 [facility] [address] 47907- 6594 Jan, Spider bite 989.5 [place] [address] 25432- 1693 Jan, Spider bite 989.5 [place] [address] 79461- 7078 Jan, Spider bite 989.5 [place] [address] 36664- 3800 10 Nov, 2014 Back pain 724.5 and Diabetes 250.00 [place] [address] 19333- 5549 Nov, Back pain 724.5 and Muscle spasm of back 724.8 [place] [address] 23148- 4822 Nov, Alternating constipation and diarrhea 787.99 [facility] [address] 92888- 3073 October, Back pain 724.5 and Hip pain 719.45 [facility] [address] 09120- 2964 Sep, [facility] [address] 73219- 2501 Sep, [facility] [address] 18063- 2546 Aug, [facility] [place] [facility] [address] [id number] [place] [address]- 8792 Aug, [facility] [place] [facility] [address] [id number] [place] [address]- 6405 Aug, [facility] [place] [facility] [address] [id number] [place] [address]- 2773 Aug, [facility] [place] [facility] [address] [id number] [place] [address]- 7253 Aug, [facility] [place] [facility] [address] [id number] [place] [address]- 8171 Aug, [facility] [place] [facility] [address] [id number] [place] [address]- 8948 Jul, [facility] [place] [facility] [address] [id number] [place] [address]- 4493 Jul, [facility] [place] [facility] [address] [id number] [place] [address]- 4824 Jun, [facility] [place] [facility] [address] [id number] [place] [address]- 4062 Jun, [facility] [place] [facility] [address] [id number] [place] [address]- 1176 Jun, [facility] [place] [facility] [address] [id number] [place] [address]- 7725 Jun, [facility] [place] [facility] [address] [id number] [place] [address]- 2800 Jun, [facility] [place] [facility] [address] [id number] [place] [address]- 1155 Jun, [facility] [place] [facility] [address] [id number] [place] [address]- 5501 Jun, [facility] [place] [facility] [address] [id number] [place] [address]- 1976 May, [facility] [place] [facility] [address] [id number] [place] [address]- 3740 30 May, 2014 [facility] [place] [facility] [address] [id number] [place] [address]- 6483 May, [facility] [place] [facility] [address] [id number] [place] [address]- 6826 May, [facility] [place] [facility] [address] [id number] [place] [address]- 3911 Apr, [facility] [place] [facility] [address] [id number] [place] [address]- 0223 Apr, [facility] [place] [facility] [address] [id number] [place] [address]- 6671 Mar, [facility] [place] [facility] [address] [id number] [place] [address]- 5371 Mar, [facility] [place] [facility] [address] [id number] [place] [address]- 0747 Mar, [facility] [place] [facility] [address] [id number] [place] [address]- 0971 Mar, [facility] [place] [facility] [address] [id number] [place] [address]- 0501 Mar, [facility] [place] [facility] [address] [id number] [place] [address]- 2763 15 Mar, 2014 [facility] [place] [facility] [address] [id number] [place] [address]- 2465 Mar, [facility] [place] [facility] [address] [id number] [place] 1326 Mar, [facility] [place] [facility] [address] [id number] [place] [address]- 7145 Mar, [facility] [place] [facility] [address] [id number] [place] [address]- 0406 08 Mar, 2014 [facility] [place] [facility] [address] [id number] [place] [address]- 0404 Feb, [facility] [place] [facility] [address] [id number] [place] [address]- 7654 Feb, [facility] [place] [facility] [address] [id number] [place] [address]- 5996 Jan, [facility] [place] [facility] [address] [id number] [place] [address]- 3213 Jan, [facility] [place] [facility] [address] [id number] [place] [address]- 1847 Jan, [facility] [place] [facility] [address] [id number] [place] [address]- 2054 Jan, [facility] [place] [facility] [address] [id number] [place] [address]- 0757 Jan, [facility] [place] [facility] [address] [id number] [place] [address]- 8765 Jan, [facility] [place] [facility] [address] [id number] [place] [address]- 0951 Jan, [facility] [place] [facility] [address] [id number] [place] [address]- 1924 Jan, [facility] [place] [facility] [address] [id number] [place] [address]- 3675 Jan, [facility] [place] [facility] [address] [id number] [place] [address]- 6874 Jan, [facility] [place] [facility] [address] [id number] [place] [address]- 8454 Dec, [facility] [place] [facility] [address] [id number] [place] [address]- 3499 Dec, [facility] [place] [facility] [address] [id number] [place] [address]- 9886 Dec, [facility] [place] [facility] [address] [id number] [place] [address]- 0488 Dec, [facility] [place] [facility] [address] [id number] [place] [address]- 6164 Nov, [facility] [place] [facility] [address] [id number] [place] [address]- 9688 Nov, [facility] [place] [facility] [address] [id number] [place] [address]- 2085 Nov, [facility] [place] [facility] [address] [id number] [place] [address]- 1219 Nov, [facility] [place] [facility] [address] [id number] [place] [address]- 0801 October, [facility] [place] [facility] [address] [id number] [place] [address]- 9302 October, [facility] [place] [facility] [address] [id number] [place] [address]- 3413 Sep, [facility] [place] [facility] [address] [id number] [place] [address]- 3942 Sep, [facility] [place] [facility] [address] [id number] [place] [address]- 0231 Sep, [facility] [place] [facility] [address] [id number] [place] [address]- 3182 Sep, [facility] [place] [facility] [address] [id number] [place] [address]- 3966 Sep, [facility] [place] [facility] [address] [id number] [place] [address]- 2508 Sep, [facility] [place] [facility] [address] [id number] [place] [address]- 8600 Sep, [facility] [place] [facility] [address] [id number] [place] [address]- 4312 Sep, [facility] [place] [facility] [address] [id number] [place] [address]- 8773 Sep, [facility] [place] [facility] [address] [id number] [place] [address]- 6825 Sep, [facility] [place] [facility] [address] [id number] [place] [address]- 7529 Jul, [facility] [place] [facility] [address] [id number] [place] [address]- 4796 Jul, [facility] [place] [facility] [address] [id number] [place] [address] Jul, [facility] [place] [facility] [address] [id number] [place] [address] Jul, [facility] [place] [facility] [address] [id number] [place] [address] Jun, [facility] [place] [facility] [address] [id number] [place] [address] Jun, [facility] [place] [facility] [address] [id number] [place] [address] Jun, [facility] [place] [facility] [address] [id number] [place] [address] Jun, [facility] [place] [facility] [address] [id number] [place] [address] Jun, [facility] [place] [facility] [address] [id number] [place] [address] Jun, [facility] [place] [facility] [address] [id number] [place] [address] Apr, [facility] [place] [facility] [address] [id number] [place] [address] Apr, [facility] [place] [facility] [address] [id number] [place] [address] Apr, [facility] [place] [facility] [address] [id number] [place] [address] Apr, [facility] [place] [facility] [address] [id number] [place] [address] Apr, [facility] [place] [facility] [address] [id number], [place] [address] Apr, [facility] [place] [facility] [address] [id number] [place] [address] Apr, [facility] [place] [facility] [address] [id number] [place] [address] Apr, [facility] [place] [facility] [address] [id number] [place] [address] Mar, [facility] [place] [facility] [address] [id number] [place] [address] Mar, [facility] [place] [facility] [address] [id number] [place] [address] Feb, [facility] [place] [facility] [address] [id number] [place] [address] Feb, [facility] [place] [facility] [address] [id number] [place] [address] Dec, [facility] [place] [facility] [address] [id number] [place] [address]- [address] Dec, [facility] [place] [facility] [address] [id number] [place] [address] Dec, [facility] [place] [facility] [address] [id number] [place] [address]- [address] Dec, [facility] [place] [facility] [address] [id number] [place] [address] Dec, [facility] [place] [facility] [address] [id number] [place] [address] Dec, [facility] [place] [facility] [address] [id number] [place] [address] Dec, [facility] [place] [facility] [address] [id number] [place] [address] Nov, [facility] [place] [facility] [address] [id number] [place] [address] Nov, [facility] [place] [facility] [address] [id number] [place] [address] 08 Nov, 2012 [facility] [address] [id number] [place] [address] Nov, [facility] [place] [facility] [address] [id number] [place] [address] October, [facility] [address] [id number] [place] [address] October, [facility] [address] [id number] [place] [address] October, [facility] [address] [id number] [place] [address]- [address] October, [facility] [address] [id number] [place] [address] Sep, [facility] [address] [id number] [place] [address] Aug, [facility] [address] [id number] [place] [address] Aug, [facility] [address] [id number] [place] [address] Aug, [facility] [address] [id number] [place] [address] Aug, [facility] [place] [facility] [address] [id number] [place] [address] Aug, [facility] [address] [id number] [place] [address] Jul, [facility] [place] [facility] [address] [id number] [place] [address] Jul, [facility] [place] [facility] [address] [id number] [place] [address] Jul, [facility] [place] [facility] [address] [id number] [place] [address] Jul, [facility] [address] [id number] [place] [address] Jul, [facility] [place] [facility] [address] [id number] [place] [address] Jul, [facility] [address] [facility] [id number] [place] [address] 2546 20 Jul, 2012 [facility] [place] [facility] [address] [id number] [place] [address] 2546 15 Jul, 2012 [facility] [address] [id number] [place] [address] 14 Jul, 2012 [facility] [address] [facility] [id number] [place] [address] Jul, [facility] [id number] [place] [address] Jun, [facility] [address] [facility] [id number] [place] [address] Jun, [facility] [address] [facility] [id number] [place] [address]- [address]2 Jun, [facility] [address] [facility] [id number] [place] [address] May, [facility] [address] [facility] [id number] [place] [address] 3963 May, [facility] [place] [facility] [address] [id number], [place] [address] Apr, [facility] [place] [facility] [address] [id number] [place] [address] Apr, [facility] [place] [facility] [address] [facility] [id number] [place] [address] Apr, [facility] [place] [facility] [address] [facility] [id number] [place] [address] Apr, [facility] [place] [facility] [address] [id number] [place] [address] 3942 Apr, [facility] [place] [facility] [address] [id number] [place] [address] 9158 Apr, [facility] [place] [facility] [address] [id number] [place] [address]- 6736 Apr, [facility] [place] [facility] [address] [id number] [place] [address] 3097 Apr, [facility] [place] [facility] [address] [id number] [place] [address] Mar, [facility] [place] [facility] [address] [id number] [place] [address] Mar, [facility] [place] [facility] [address] [id number] [place] [address] Mar, [facility] [place] [facility] [address] [id number] [place] [address]228 Mar, [facility] [place] [facility] [address] [id number] [place] [address] 5596 Mar, [facility] [place] [facility] [address] [id number] [place] [address] Mar, [facility] [place] [facility] [address] [id number] [place] [address] Mar, [facility] [place] [facility] [address] [id number] [place] [address] Mar, [facility] [place] [facility] [address] [id number] [place] [address] 7839 Mar, [facility] [place] [facility] [address] [id number] [place] [address] 1016 Feb, [facility] [place] [facility] [address] [id number] [place] [address] 2546 Jan, [facility] [place] [facility] [address] [id number] [place] [address] 0938 Jan, [facility] [place] [facility] [address] [id number] [place] [address] 9893 Jan, [facility] [place] [facility] [address] [id number] [place] [address] 9951 Dec, [facility] [place] [facility] [address] [id number] [place] [address]- 9449 Dec, [facility] [place] [facility] [address] [id number] [place] [address]- 8640 Dec, [facility] [place] [facility] [address] [id number] [place] [address] 4484 Nov, [facility] [place] [facility] [address] [id number] [place] [address] 0017 October, [facility] [place] [facility] [address] [id number] [place] [address]- 9206 October, [facility] [place] [facility] [address] [id number] [place] [address] 3160 October, [facility] [place] [facility] [address] [id number] [place] [address] 9653 October, [facility] [place] [facility] [address] [id number] [place] [address]- [address]245 October, [facility] [place] [facility] [address] [id number] [place] [address]- [address]326 Sep, [facility] [place] [facility] [address] [id number] [place] [address]- 4240 Sep, [facility] [place] [facility] [address] [id number] [place] [address]- 6243 Sep, [facility] [place] [facility] [address] [id number] [place] [address]- 7789 Sep, [facility] [place] [facility] [address] [id number] [place] [address]- 3230 Sep, [facility] [place] [facility] [address] [id number] [place] [address]- 4122 11 Sep, 2011 [facility] [address] [id number] [place] [address]- 0796 11 Sep, 2011 [facility] [place] [facility] [address] [id number] [place] [address]- 0876 28 Aug, 2011 [facility] [address] [id number] [place] [address]- 7816 23 Aug, 2011 [facility] [place] [facility] [address] [id number] [place] [address] 2546 21 Aug, 2011 [facility] [address] [id number] [place] [address]- 7335 21 Aug, 2011 [facility] [place] [facility] [address] [id number] [place] [address]- 3420 20 Aug, 2011 [facility] [address] [id number] [place] [address]- 0016 19 Aug, 2011 [facility] [address] [id number] [place] [address]- 9946 16 Aug, 2011 [facility] [place] [facility] [address] [id number] [place] [address]- 2444 15 Aug, 2011 [facility] [place] [facility] [address] [id number] [place] [address]- 0724 15 Aug, 2011 [facility] [place] [facility] [address] [id number] [place] [address]- 1246 14 Aug, 2011 [facility] [place] [facility] [address] [id number] [place] [address]- 2465 12 Aug, 2011 [facility] [place] [facility] [address] [id number] [place] [address]- 1199 08 Aug, 2011 [facility] [place] [facility] [address] [id number] [place] [address]- 3416 15 Jul, 2011 [facility] [place] [facility] [address] [id number] [place] [address]- 8622 15 Jul, 2011 [facility] [place] [facility] [address] [id number] [place] [address]- 4084 14 Jul, 2011 [facility] [place] [facility] [address] [id number] [place] [address]- 1946 06 Jul, 2011 [facility] [place] [facility] [address] [id number] [place] [address]- 6573 02 Jul, 2011 [facility] [place] [facility] [address] [id number] [place] [address]- 9154 Jun, [facility] [place] [facility] [address] [id number] [place] [address]- 5685 Jun, [facility] [place] [facility] [address] [id number] [place] [address]- 6604 Jun, [facility] [place] [facility] [address] [id number] [place] [address]- 3805 29 May, 2011 [facility] [place] [facility] [address] [id number] [place] [address]- 9239 21 May, 2011 [facility] [place] [facility] [address] [id number] [place] [address]- 9123 19 May, 2011 [facility] [place] [facility] [address] [id number] [place] [address]- 4183 19 May, 2011 [facility] [place] [facility] [address] [id number] [place] [address]- 9102 14 May, 2011 [facility] [place] [facility] [address] [id number] [place] [address]- 3461 16 Apr, 2011 [facility] [place] [facility] [address] [id number] [place] [address] 2541 16 Apr, 2011 [facility] [place] [facility] [address] [id number] [place] [address]- 2549 15 Apr, 2011 [facility] [place] [facility] [address] [id number] [place] [address] 14 Apr, 2011 [facility] [place] [facility] [address] [id number], [place] [address]70 Mar, [facility] [id number] [address] Mar, [facility] [id number], [place] [address] Mar, [facility] [address] [id number], [place] [address] Mar, [facility] [id number] [place] [address]- 7348 Mar, [facility] [id number] [place] [address]- 0640 Mar, [facility] [id number], [place] [address] 0176 Feb, [facility] [id number] [place] [address] 8[address]127- 9461 Nov, [facility] [id number], [place] [address] Aug, [facility] [id number], [place] [address]- [address] Apr, [facility] [id number], [place] [address]- [address] Mar, [facility] [id number], [place] [address]- 4158 Apr, [facility] [id number], [place] [address]- 1700 Apr, [facility] [id number], [place] [address]- 94[address] Sep, [facility] [id number] Mar, IMMUNIZATIONS Vaccine Route Administration Date Status TORADOL (IM) 60 MG/2ML (UP TO 15 MG) IM Intramuscular Feb 22, 2018 Administered SOCIAL HISTORY Never Assessed REASON FOR VISIT body aches, PT reports for the last few nights she has been having bad body aches that wake her in the middle of the night -[facility] PLAN OF CARE VITAL SIGNS Height 63 in 2018-02-22 Weight 241.8 lbs 2018-02-22 Temperature 97.9 degrees Fahrenheit 2018-02-22 Heart Rate 87 bpm 2018-02-22 Respiratory Rate 20 2018-02-22 Oximetry 97 % 2018-02-22 BMI 42.83 kg/m2 2018-02-22 Blood pressure systolic 132 mmHg 2018-02-22 Blood pressure diastolic 82 mmHg 2018-02-22 MEDICATIONS Medication Instructions Dosage Frequency Start Date End Date Duration Status Albuterol Sulfate (2.5 MG/3ML) 0.083% Inhalation Three times a day 3 ml 8h Aug, Active Glucocard Expression Monitor w/Device as directed Aug, Active Spironolactone 25 MG Orally Once a day 1 tablet with food 24h Nov, 90 days Active Walker Silex Wheels - with bench seat. DX: fibromyalgia, unsteady gait as directed Jan, Active Wheelchair 1 use as needed for acitivity assistance Nov, Active MetFORMIN HCl ER 500 mg Orally twice a day 2 tablets 12h Jan, 90 days Active Cymbalta 60 MG Orally Once a day 1 capsule 24h Active Propranolol HCl 60 MG Orally Twice a day 1 tablet 12h October, 90 days Active Actos 15 mg Orally Once a day 1 tablet 24h Feb, 30 day(s) Active Crestor 10 mg Orally Once a day 1 tablet 24h 16 Feb, 2014 90 days Active Pantoprazole Sodium 40 mg Orally Once a day 1 tablet 24h May, 90 days Active Micardis 20 mg Orally Once a day 1 tablet by Oral route 1 time per day 24h Jun, 30 days Active Glucocard Expression Test - test blood sugar Aug, Active Contrave 8-90 MG Orally Twice a day 2 tablets 12h Feb, Mar, 30 day(s) Active Mirtazapine 15 MG Orally Once a day 1 tablet at bedtime 24h Active Proventil HFA 108 (90 Base) MCG/ACT Inhalation every 4 hrs 2 puffs as needed 4h Aug, Active PredniSONE 20 mg Orally Once a day 2 tablets 24h Feb, Feb, 5 days Active Reglan 10 mg Orally 2 times a day, prn nausea 1 tablet Dec, Active Lyrica 150 MG Orally 3 times a day 1 capsule 8h Mar, 90 days Active RESULTS No Results PROCEDURES Procedure Date Ordered Result Body Site TORADOL (IM) 60 MG/2ML (UP TO 15 MG) Feb 22, 2018 THER/PROPH/DIAG INJ, SC/IM Feb 22, 2018 INSTRUCTIONS MEDICATIONS ADMINISTERED No Known Medications [...]
--- OUTSIDE RECORDS SUMMARY | 2018-06-19 13:20 | XMS REPORT ---
Author Author JERRICA SERNA [facility] Address [address] [place] [address] Care Team Providers Care Online Marketing Specialist Name Role Phone JERRICA SERNA Unavailable PROBLEMS Type Condition ICD9-CM Code RKS76-HM Code Onset Dates Condition Status SNOMED Code Problem Eosinophilic colitis K52.82 Active 50384126 Problem Other chronic gastritis without hemorrhage K29.50 Active 0739897 Problem Unsteady gait R26.81 Active 42240527 Problem Controlled type 2 diabetes mellitus without complication, without long -term current use of insulin E11.9 Active 585737612 Problem Acute right-sided low back pain with right-sided sciatica M54.41 Active 857303052 Problem Sacral pain M53.3 Active 53526363 Problem Non morbid obesity E66.9 Active 245670153 Problem Paresthesias in left hand R20.2 Active 303989443 Problem GERD with esophagitis K21.0 Active 189805257 Problem Other chronic pain G89.29 Active 56449689 Problem Bronchitis J40 Active 01858115 Problem Migraine without aura and without status migrainosus, not intractable G43.009 Active 819892828 Problem Hypertension, benign I10 Active 16717186 Problem Fibromyalgia M79.7 Active 813522090 Problem Non morbid obesity due to excess calories E66.09 Active 824978151 ALLERGIES No Information ENCOUNTERS Encounter Location Date Diagnosis [facility] [id number] [place] [address] 23325- 8814 17 Feb, 2018 BMI 40.0-44.9, adult Z68.41 and Body aches R52 [facility] [id number] [place] [address] 13261 -0615 08 Feb, 2018 Allergic reaction to drug, initial encounter T78.40XA [facility] [id number] [place] [address] 94333- 4215 Feb, BMI 40.0-44.9, adult Z68.41 ; Hypertension, benign I10 ; Non morbid obesity due to excess calories E66.09 and Controlled type 2 diabetes mellitus without complication, without long-term current use of insulin E11.9 [place] [id number] [place] [address] 65622- 3995 Jan, Impacted cerumen of right ear H61.[address] 28393- 7408 Jan, Bilious vomiting with nausea R11.14 ; BMI 40.0-44.9, adult Z68.41 ; Hypertension, benign I10 and Fibromyalgia M79.[address] 39288- 9426 Dec, Bilious vomiting with nausea R11.14 and Tachycardia R00.[address] 07467- 7579 Nov, [address] 11031- 6271 Nov, BMI 40.0-44.9, adult Z68.41 ; Leg edema R60.0 and Hypertension, benign I10 [place] [id number] [place] [address] 72147- 4451 Nov, [place] [address] 50474- 4379 October, Thoracic neuritis M54.[address] 52687- 8494 October, Acute right hip pain M25.[address] 10430- 8180 October, [place] [address] 30614- 8794 Sep, Hypertension, benign I10 and Acute right-sided low back pain with right-sided sciatica M54.41 [place] [id number] [place] [address] 39286- 6213 Sep, Fibromyalgia M79.7 and Hypertension, benign I10 [place] [id number] [place] [address] 07373- 1409 Aug, [place] [address] 38486- 4401 Aug, Fibromyalgia M79.7 ; Frequent headaches R51 and Non morbid obesity due to excess calories E66.09 [place] [address] 35168- 5124 Jul, [place] [address] 54115- 1249 Jul, Fibromyalgia M79.7 [place] [address] 56302- 9252 Jul, Viral gastroenteritis A08.4 and Paresthesias in left hand R20.2 [place] [id number] [place] [address] 19166- 4168 Jun, Non morbid obesity due to excess calories E66.09 [place] [id number] [place] [address] 68393- 2744 Jun, [place] [id number] [place] [address] 35044- 4569 Jun, Fibromyalgia M79.7 [facility] [id number] [place] [address] 63223- 9496 May, Non morbid obesity due to excess calories E66.09 and Hypertension, benign I10 [place] [address] 50524- 1935 May, GERD with esophagitis K21.0 [place] [id number] [place] [address] 11197- 9738 Apr, BMI 40.0-44.9, adult Z68.41 and Non morbid obesity E66.9 [place] [id number] [place] [address] 53426- 2804 Mar, Unsteady gait R26.81 [place] [id number] [place] [address] 06247- 3373 Mar, Unsteady gait R26.81 ; Sacral pain M53.3 and Fibromyalgia M79.7 [place] [address] 72813- 8320 Mar, Non morbid obesity due to excess calories E66.09 [place] [address] 18667- 5981 28 Feb, 2017 Abdominal pain, generalized R10.84 [place] [id number] [place] [address] 12968- 8433 18 Feb, 2017 Other chronic gastritis without hemorrhage K29.50 and H. pylori infection A04.8 [place] [id number] [place] [address] 64484- 7173 07 Feb, 2017 Back pain 724.5 ; Pain in left shoulder M25.512 ; Fibromyalgia M79.7 and Non morbid obesity due to excess calories E66.09 [place] [id number] [place] [address] 17297- 9563 07 Feb, 2017 BMI 40.0-44.9, adult Z68.41 [place] [id number] [place] [address] 86932- 0287 14 Jan, 2017 Dysuria R30.0 and Acute cystitis with hematuria N30.01 [place] [id number] [place] [address] 29804- 0231 Jan, Dysuria R30.0 [place] [id number] [place] [address] 45864- 4320 Dec, Fibromyalgia M79.7 [place] [address] 77765- 5559 Dec, Screening for diabetes mellitus Z13.1 and Fibromyalgia M79.7 [place] [address] 68031- 8720 Dec, Fibromyalgia M79.7 [facility] [address] 02848- 9872 Dec, [place] [address] 01951- 5958 Dec, Fibromyalgia M79.7 [place] [address] 03881- 5257 Nov, Foreign body in foot, left, initial encounter S90.852A [place] [address] 04420- 9252 Nov, Viral gastroenteritis A08.[address] 26721- 9184 Nov, Fall, initial encounter W19.XXXA ; Post-traumatic headache, unspecified, not intractable G44.309 ; Dizziness R42 ; Unsteady gait R26.81 ; Sacral pain M53.3 and Non morbid obesity due to excess calories E66.09 [place] [address] 90821- 7832 Nov, [address] 20936- 2935 Nov, [place] [address] 41817- 9025 October, Non morbid obesity due to excess calories E66.09 and Hypertension, benign I10 [address] 52404- 4401 October, Fibromyalgia M79.7 [place] [address] 06230- 3954 Sep, [place] [address] 67791- 5726 Sep, [place] [id number] [place] [address] 91773- 0127 Sep, Eosinophilic colitis K52.82 [facility] [id number] [place] [address] 38389- 8695 Aug, Bronchitis J40 [place] [id number] [place] [address] 50837- 7873 Aug, [place] [id number] [place] [address] 34562- 6022 Aug, Pain in left shoulder M25.512 ; Bronchitis J40 ; Acute midline back pain, unspecified location M54.9 ; Migraine without aura and without status migrainosus, not intractable G43.009 ; Fibromyalgia M79.7 and Pain of upper abdomen R10.10 [place] [id number] [place] [address] 95436- 5891 Aug, [place] [id number] [place] [address] 41685- 6581 Aug, [place] [id number] [place] [address] 91327- 8189 Jul, Other viral agents as the cause of diseases classified elsewhere B97.89 and Acute upper respiratory infection, unspecified J06.9 [place] [id number] [place] [address] 45630- 2015 Jun, [facility] [id number] [place] [address] 63960 -3232 Jun, [place] [id number] [place] [address] 06950- 7360 May, Abscess L02.91 [place] [id number] [place] [address] 77507- 9272 May, Acute midline low back pain without sciatica M54.5 [facility] [id number] [place] [address] 34138 -6636 May, [facility] [address] [address] 2002 Apr, [facility] [id number] [place] [address] 93841- 9246 Apr, Other chronic pain G89.29 ; Pain in right shoulder M25.511 and Pain in left shoulder M25.512 [facility] [id number] [place] [address] 18073- 2086 Apr, [facility] [id number] [place] [address] 19707- 3846 Apr, [facility] [id number] [place] [address] 86972- 6550 Apr, Fibromyalgia M79.7 ; Other chronic pain G89.29 and Pain in left shoulder M25.512 [facility] [id number] [place] [address] 92932- 9565 Apr, Bronchitis J40 [facility] [address] [place] [address] 85536- 5098 Mar, [facility] [id number] [place] [address] [id number] Mar, [facility] [address] [place] [address] 91905- 4569 29 Feb, 2016 [facility] [address] [place] [address] 26967 2542 26 Feb, 2016 [facility] [address] [place] [address] 59109 2545 23 Feb, 2016 [facility] [id number] [place] [address] 47535- 1088 22 Feb, 2016 [facility] [address] [address]- 2542 20 Feb, 2016 [facility] [address] [place] [address] 66229- 2986 Feb, [facility] [address] [place] [address] 10112- 3718 Feb, Dysuria R30.0 [facility] [id number] [place] [address] 92169- 3200 Feb, Dysuria R30.0 [facility] [id number] [place] [address] 59432- 6527 16 Feb, 2016 [facility] [id number] [place] [address] 83593- 3556 15 Feb, 2016 Migraine, unspecified, not intractable, without status migrainosus G43.909 and Fibromyalgia M79.7 [facility] [id number] [place] [address] 75559- 3185 06 Feb, 2016 Migraine without aura and without status migrainosus, not intractable G43.009 [facility] [id number] [place] [address] 51465- 6438 Jan, [facility] [id number] [place] [address] 30247- 9702 Jan, [facility] [id number] [place] [address] 98295- 4028 Jan, [facility] [id number] [place] [address] 88292- 1910 Jan, [facility] [id number] [place] [address] 70772- 1588 Jan, Unsteady gait R26.81 ; Fibromyalgia M79.7 and Family history of rheumatoid arthritis Z82.61 [facility] [id number] [place] [address] 49441- 4108 Dec, [facility] [id number] [place] [address] 84367- 5228 Dec, [facility] [id number] [place] [address] 13457- 1432 Nov, Pain in left shoulder M25.512 [facility] [id number] [place] [address] 93747- 6385 October, Viral gastroenteritis A08.4 [facility] [address] 04719 -7893 October, Pain of upper abdomen R10.10 [place] [address] 62098- 3371 October, Acute midline back pain, unspecified location M54.9 [place] [address] 28435- 1496 Aug, Elbow pain, right M25.521 [place] [address] 10322- 2054 Aug, Elbow pain, right M25.521 [place] [address] 59655- 4746 Aug, Pain of right upper extremity M79.601 [place] [address] 55644- 3954 Jun, Lumbar neuritis M54.16 [place] [address] 16224- 3061 May, [place] [address] 17426- 1089 Apr, Non morbid obesity due to excess calories E66.09 [place] [address] 36566- 3025 Apr, Non morbid obesity due to excess calories E66.09 and Thoracic neuritis M54.14 [place] [address] 95556- 4505 Apr, Elbow pain, right M25.521 [place] [address] 70417- 9583 Mar, Right elbow pain M25.521 [place] [id number] [place] [address] 15626- 0803 Mar, [facility] [address] 78010- 2772 30 Feb, 2015 Urinary tract infection, site not specified 599.0 [facility] [id number] [place] [address] 17297- 0523 14 Feb, 2015 [facility] [address] 95373- 6518 Jan, Spider bite 989.5 [facility] [address] 18990- 4169 Jan, Spider bite 989.5 [facility] [address] 17575- 9322 Jan, Spider bite 989.5 [facility] [address] 06439- 0515 Nov, Back pain 724.5 and Diabetes 250.00 [facility] [id number] [place] [address] 49962- 1695 Nov, Back pain 724.5 and Muscle spasm of back 724.8 [facility] [id number] [place] [address] 32882- 1802 Nov, Alternating constipation and diarrhea 787.99 [facility] [address] 52881- 7734 October, Back pain 724.5 and Hip pain 719.45 [facility] [id number] [place] [address] 06474- 8454 Sep, [facility] [address] 51114- 2988 Sep, [facility] [id number] [place] [address] 84153- 2372 Aug, [facility] [address] [place] [address]- 8786 Aug, [facility] [place] [facility] [address] [id number] [place] [address]- 0841 Aug, [facility] [place] [facility] [address] [id number] [place] [address]- 4077 Aug, [facility] [place] [facility] [address] [id number] [place] [address]- 2415 Aug, [facility] [place] [facility] [address] [id number] [place] [address]- 2144 Aug, [facility] [place] [facility] [address] [id number] [place] [address]- 6851 Jul, [facility] [place] [facility] [address] [id number] [place] [address]- 0865 Jul, [facility] [place] [facility] [address] [id number] [place] [address]- 4498 Jun, [facility] [place] [facility] [address] [id number] [place] [address]- 2836 Jun, [facility] [place] [facility] [address] [id number] [place] [address]- 8154 Jun, [facility] [place] [facility] [address] [id number] [place] [address]- 0571 Jun, [facility] [place] [facility] [address] [id number] [place] [address]- 9805 Jun, [facility] [place] [facility] [address] [id number] [place] [address]- 0679 Jun, [facility] [place] [facility] [address] [id number] [place] [address]- 4729 Jun, [facility] [place] [facility] [address] [id number] [place] [address]- 7068 May, [facility] [place] [facility] [address] [id number] [place] [address]- 7533 May, [facility] [place] [facility] [address] [id number] [place] [address]- 7413 May, [facility] [place] [facility] [address] [id number] [place] [address]- 7828 May, [facility] [place] [facility] [address] [id number] [place] [address]- 1741 Apr, [facility] [place] [facility] [address] [id number] [place] [address]- 3938 Apr, [facility] [place] [facility] [address] [id number] [place] 2525 Mar, [facility] [place] [facility] [address] [id number] [place] [address]- 3915 Mar, [facility] [place] [facility] [address] [id number] [place] [address]- 9293 Mar, [facility] [place] [facility] [address] [id number] [place] [address]- 6525 Mar, [facility] [place] [facility] [address] [id number] [place] [address]- 9264 Mar, [facility] [place] [facility] [address] [id number] [place] [address]- 1512 Mar, [facility] [place] [facility] [address] [id number] [place] [address]- 0313 Mar, [facility] [place] [facility] [address] [id number] [address]- 2407 Mar, [facility] [place] [facility] [address] [id number] [place] 7777 Mar, [facility] [place] [facility] [address] [id number] [place] 1838 Mar, [facility] [place] [facility] [address] [id number] [place] [address]- 3585 16 Feb, 2014 [facility] [place] [facility] [address] [id number] [place] [address]- 1880 Feb, [facility] [place] [facility] [address] [id number] [place] [address]- 8563 Jan, [facility] [place] [facility] [address] [id number] [place] [address]- 4616 Jan, [facility] [place] [facility] [address] [id number] [place] [address]- 9098 Jan, [facility] [place] [facility] [address] [id number] [place] [address]- 2674 Jan, [facility] [place] [facility] [address] [id number] [place] [address]- 7548 Jan, [facility] [place] [facility] [address] [id number] [place] [address]- 5739 Jan, [facility] [place] [facility] [address] [id number] [place] [address]- 6657 Jan, [facility] [place] [facility] [address] [id number] [place] [address]- 5924 Jan, [facility] [place] [facility] [address] [id number] [place] [address]- 3330 Jan, [facility] [place] [facility] [address] [id number] [place] [address]- 1449 Jan, [facility] [place] [facility] [address] [id number] [place] [address]- 7162 Dec, [facility] [place] [facility] [address] [id number] [place] [address]- 6294 Dec, [facility] [place] [facility] [address] [id number] [place] [address]- 3460 Dec, [facility] [place] [facility] [address] [id number] [place] [address]- 8329 Dec, [facility] [place] [facility] [address] [id number] [place] [address]- 8740 Nov, [facility] [place] [facility] [address] [id number] [place] [address]- 0707 Nov, [facility] [address] [id number] [place] [address]- 0897 Nov, [facility] [place] [facility] [address] [id number] [place] [address]- 5856 Nov, [facility] [address] [id number] [place] [address]- 3080 October, [facility] [place] [facility] [address] [id number] [place] [address]- 7123 October, [facility] [place] [facility] [address] [id number] [place] [address]- 7132 Sep, [facility] [place] [facility] [address] [id number] [place] [address]- 5283 Sep, [facility] [place] [facility] [address] [id number] [place] [address]- 1161 Sep, [facility] [address] [id number] [place] [address]- 0089 Sep, [facility] [place] [facility] [address] [id number] [place] [address]- 8354 Sep, [facility] [place] [facility] [address] [id number] [place] [address]- 5028 Sep, [facility] [place] [facility] [address] [id number] [place] [address]- 1280 Sep, [facility] [place] [facility] [address] [id number] [place] [address]- 5386 Sep, [facility] [place] [facility] [address] [id number] [place] [address]- 2867 Sep, [facility] [place] [facility] [address] [id number] [place] [address]- 2426 Sep, [facility] [place] [facility] [address] [id number] [place] [address] Jul, [facility] [place] [facility] [address] [id number] [place] [address] Jul, [facility] [place] [facility] [address] [id number] [place] [address] Jul, [facility] [place] [facility] [address] [id number] [place] [address] Jul, [facility] [place] [facility] [address] [id number] [place] [address] Jun, [facility] [place] [facility] [address] [id number] [place] [address] Jun, [facility] [place] [facility] [address] [id number] [place] [address] Jun, [facility] [place] [facility] [address] [id number] [place] [address] Jun, [facility] [place] [facility] [address] [id number] [place] [address] Jun, [facility] [place] [facility] [address] [id number] [place] [address] Jun, [facility] [place] [facility] [address] [id number] [place] [address] Apr, [facility] [place] [facility] [address] [id number], [place] [address] Apr, [facility] [place] [facility] [address] [id number], [place] [address] Apr, [facility] [place] [facility] [address] [id number] [place] [address] Apr, [facility] [place] [facility] [address] [id number] [place] [address] Apr, [facility] [place] [facility] [address] [id number] [place] [address] Apr, [facility] [place] [facility] [address] [id number] [place] [address]- [address] Apr, [facility] [place] [facility] [address] [id number] [place] [address] Apr, [facility] [place] [facility] [address] [id number] [place] [address] Mar, [facility] [place] [facility] [address] [id number] [place] [address] Mar, [facility] [place] [facility] [address] [id number] [place] [address] Feb, [facility] [place] [facility] [address] [id number] [place] [address] Feb, [facility] [place] [facility] [address] [id number] [place] [address] Dec, [facility] [place] [facility] [address] [id number] [place] [address] Dec, [facility] [place] [facility] [address] [id number] [place] [address]- [address]65 Dec, [facility] [place] [facility] [address] [id number] [place] [address] Dec, [facility] [place] [facility] [address] [id number] [place] [address] Dec, [facility] [place] [facility] [address] [id number] [place] [address] Dec, [facility] [place] [facility] [address] [id number] [place] [address] Dec, [facility] [place] [facility] [address] [id number] [place] [address]69 Nov, [facility] [place] [facility] [address] [id number] [place] [address] Nov, [facility] [place] [facility] [address] [id number] [place] [address]- 8587 Nov, [facility] [place] [facility] [address] [id number] [place] [address] Nov, [facility] [address] [id number] [place] [address] October, [facility] [address] [id number] [place] [address] October, [facility] [address] [id number] [place] [address] October, [facility] [address] [id number] [place] [address] October, [facility] [address] [id number] [place] [address] Sep, [facility] [address] [id number] [place] [address] Aug, [facility] [address] [id number] [place] [address] Aug, [facility] [address] [id number] [place] [address] Aug, [facility] [address] [id number] [place] [address] Aug, [facility] [address] [id number] [place] [address] Aug, [facility] [address] [id number] [place] [address] Jul, [facility] [place] [facility] [address] [id number] [place] [address]- [address] Jul, [facility] [place] [facility] [address] [id number] [place] [address] Jul, [facility] [place] [facility] [address] [id number] [place] [address] Jul, [facility] [place] [facility] [address] [id number] [place] [address] 25 Jul, 2012 [facility] [address] [id number] [place] [address] 23 Jul, 2012 [facility] [place] [facility] [address] [id number] [place] [address] 20 Jul, 2012 [facility] [address] [id number] [place] [address] 2546 15 Jul, 2012 [facility] [place] [facility] [address] [id number] [place] [address] 2546 14 Jul, 2012 [facility] [address] [id number] [place] [address] Jul, [facility] [address] [id number] [place] [address] Jun, [facility] [address] [id number] [place] [address] Jun, [facility] [address] [id number] [place] [address]16 Jun, [facility] [address] [id number] [place] [address] May, [facility] [address] [id number] [place] [address] May, [facility] [address] [id number] [place] [address] 2546 Apr, [facility] [address] [id number] [place] [address] 2542 Apr, [facility] [place] [facility] [address] [id number] [place] [address]168 Apr, [facility] [place] [facility] [address] [id number] [place] [address] Apr, [facility] [place] [facility] [address] [id number] [place] [address] Apr, [facility] [place] [facility] [address] [id number] [place] [address] 5068 Apr, [facility] [place] [facility] [address] [id number] [place] [address] Apr, [facility] [place] [facility] [address] [id number] [place] [address] 9039 Apr, [facility] [place] [facility] [address] [id number] [place] [address]47 Mar, [facility] [place] [facility] [address] [id number] [place] [address] Mar, [facility] [place] [facility] [address] [id number] [place] [address] 6254 Mar, [facility] [place] [facility] [address] [id number] [place] [address] 9703 Mar, [facility] [place] [facility] [address] [id number], [place] [address] Mar, [facility] [place] [facility] [address] [id number] [place] [address] 6157 Mar, [facility] [place] [facility] [address] [id number], [place] [address] Mar, [facility] [place] [facility] [address] [facility] [id number], [place] [address] Mar, [facility] [place] [facility] [address] [id number], [place] [address] Mar, [facility] [place] [facility] [address] [id number], [place] [address] Feb, [facility] [place] [facility] [address] [id number], [place] [address] Jan, [facility] [place] [facility] [address] [id number], [place] [address] Jan, [facility] [place] [facility] [address] [id number], [place] [address] Jan, [facility] [address] [id number] [place] [address] 6895 Dec, [facility] [place] [facility] [address] [id number] [place] [address] 3317 Dec, [facility] [place] [facility] [address] [id number] [place] [address] 1515 Dec, [facility] [place] [facility] [address] [id number] [place] [address] 3533 Nov, [facility] [place] [facility] [address] [id number] [place] [address] 12[address] October, [facility] [place] [facility] [address] [id number] [place] [address] 28[address] October, [facility] [address] [id number] [place] [address] October, [facility] [place] [facility] [address] [id number] [place] [address] October, [facility] [address] [id number] [place] [address] 1618 October, [facility] [place] [facility] [address] [id number] [place] [address] Sep, [facility] [place] [facility] [address] [id number] [place] [address] Sep, [facility] [place] [facility] [address] [id number] [place] [address]151 Sep, [facility] [place] [facility] [address] [id number] [place] [address] 1811 Sep, [facility] [place] [facility] [address] [id number] [place] [address] 6[address] Sep, [facility] [place] [facility] [address] [id number] [place] [address] 9671 Sep, [facility] [place] [facility] [address] [id number] [place] [address] 5138 11 Sep, 2011 [facility] [place] [facility] [address] [id number] [place] [address] 9046 28 Aug, 2011 [facility] [place] [facility] [address] [id number] [place] [address]- 9946 23 Aug, 2011 [facility] [place] [facility] [address] [id number] [place] [address]- 9426 21 Aug, 2011 [facility] [place] [facility] [address] [id number] [place] [address]- [address]406 21 Aug, 2011 [facility] [place] [facility] [address] [id number] [place] [address]- 6786 20 Aug, 2011 [facility] [place] [facility] [address] [id number] [place] [address]- 8267 19 Aug, 2011 [facility] [place] [facility] [address] [id number] [place] [address]- 0986 16 Aug, 2011 [facility] [place] [facility] [address] [id number] [place] [address]- 1617 15 Aug, 2011 [facility] [place] [facility] [address] [id number] [place] [address]- 0858 15 Aug, 2011 [facility] [place] [facility] [address] [id number] [place] [address] 2138 14 Aug, 2011 [facility] [place] [facility] [address] [id number] [place] [address]- 7858 12 Aug, 2011 [facility] [place] [facility] [address] [id number] [place] [address]- 0119 08 Aug, 2011 [facility] [place] [facility] [address] [id number] [place] [address]- 0496 15 Jul, 2011 [facility] [place] [facility] [address] [id number] [place] [address] 4896 15 Jul, 2011 [facility] [place] [facility] [address] [id number] [place] [address] 2490 14 Jul, 2011 [facility] [place] [facility] [address] [id number] [place] [address] 06 Jul, 2011 [facility] [place] [facility] [address] [id number] [place] [address]- 1536 Jul, [facility] [place] [facility] [address] [id number] [place] [address]- 3648 Jun, [facility] [place] [facility] [address] [id number] [place] [address]- 9921 Jun, [facility] [place] [facility] [address] [id number] [place] [address]- 8370 Jun, [facility] [place] [facility] [address] [id number] [place] [address] May, [facility] [place] [facility] [address] [id number] [place] [address]- 0337 May, [facility] [place] [facility] [address] [id number] [place] [address]- 1754 May, [facility] [place] [facility] [address] [id number] [place] [address]- 9945 May, [facility] [place] [facility] [address] [id number] [place] [address]- 4536 May, [facility] [place] [facility] [address] [id number], [place] [address]- 1441 16 Apr, 2011 [facility] [place] [facility] [address] [id number], [place] [address]- 2219 16 Apr, 2011 [facility] [place] [facility] [address] [id number] [place] [address] 15 Apr, 2011 [facility] [place] [facility] [address] [id number] [place] [address]- 7660 14 Apr, 2011 [facility] [place] [facility] [address] [id number] [place] [address]- 9024 25 Mar, 2011 [facility] [place] [facility] [id number] [address] Mar, [facility] [address] [facility] [id number], [place] [address]- 7735 Mar, [facility] [address] [facility] [id number], [place] [address] Mar, [facility] [id number], [place] [address]- 9778 Mar, [facility] [address] [facility] [id number], [place] [address]- 7006 Mar, [facility] [id number] [place] [address]- [address] Feb, [facility] [address] [id number], [place] [address]- [address] Nov, [facility] [id number], [place] [address] 59[address] Aug, [facility] [id number], [place] [address]- 2452 Apr, [facility] [id number], [place] [address]- 4095 Mar, [facility] [id number], [place] [address]- 5561 Apr, [facility] [id number], [place] [address]- [address]21 Apr, [facility] [address] [id number], [place] [address]- 3583 Sep, [facility] [address] [id number], [place] [address]- 5712 Mar, IMMUNIZATIONS No Known Immunizations SOCIAL HISTORY Never Assessed REASON FOR VISIT Triage JStrasserRN PLAN OF CARE Activity Details Follow Up 2 - 3 Days Reason: VITAL SIGNS Height 63 in 2018-02-13 Weight 227.4 lbs 2018-02-13 Temperature 97.9 degrees Fahrenheit 2018-02-13 Heart Rate 90 bpm 2018-02-13 Respiratory Rate 20 2018-02-13 BMI 40.28 kg/m2 2018-02-13 Blood pressure systolic 100 mmHg 2018-02-13 Blood pressure diastolic 70 mmHg 2018-02-13 MEDICATIONS Medication Instructions Dosage Frequency Start Date End Date Duration Status MetFORMIN HCl ER 500 mg Orally twice a day 2 tablets 12h Jan, 90 days Active Reglan 10 mg Orally 2 times a day, prn nausea 1 tablet Dec, Active Actos 15 mg Orally Once a day 1 tablet 24h Feb, 30 day(s) Active Propranolol HCl 60 MG Orally Twice a day 1 tablet 12h October, 90 days Active Glucocard Expression Test - test blood sugar Aug, Active Spironolactone 25 MG Orally Once a day 1 tablet with food 24h Nov, 90 days Active Albuterol Sulfate (2.5 MG/3ML) 0.083% Inhalation Three times a day 3 ml 8h Aug, Active Cymbalta 60 MG Orally Once a day 1 capsule 24h Active Glucocard Expression Monitor w/Device as directed Aug, Active Proventil HFA 108 (90 Base) MCG/ACT Inhalation every 4 hrs 2 puffs as needed 4h Aug, Active Micardis 20 mg Orally Once a day 1 tablet by Oral route 1 time per day 24h Jun, 30 days Active Wheelchair 1 use as needed for acitivity assistance Nov, Active Lyrica 150 MG Orally 3 times a day 1 capsule 8h Mar, 90 days Active Crestor 10 mg Orally Once a day 1 tablet 24h Feb, 90 days Active Mirtazapine 15 MG Orally Once a day 1 tablet at bedtime 24h Active Pantoprazole Sodium 40 mg Orally Once a day 1 tablet 24h May, 90 days Active Walker [place] [employer] - with bench seat. DX: fibromyalgia, unsteady gait as directed Jan, Active RESULTS No Results PROCEDURES No Known [...] after false positive stress test EF 60% 6/ 2013 Surgical History arthroscopic knee surgery right knee x2 2006 Surgical History ENT surgery Surgical History dilatation and curettage Hospitalization History hypokalemia 08/2009 Hospitalization History pneumonia 2006 Hospitalization History [facility] SI 01/2016 Hospitalization History Sepsis secondary to pneumonia and UTI 03/1016
--- OUTSIDE RECORDS SUMMARY | 2018-06-19 13:21 | XMS REPORT ---
Author Author ARITSEO ARAYA Organization [facility] Address [address] [place] [address] Care Team Providers Care Smoke Eater Name Role Phone ARITSEO ARAYA Unavailable PROBLEMS Type Condition ICD9-CM Code QBN45-GH Code Onset Dates Condition Status SNOMED Code Problem Eosinophilic colitis K52.82 Active 15617006 Problem Other chronic gastritis without hemorrhage K29.50 Active 1938225 Problem Unsteady gait R26.81 Active 42366176 Problem Controlled type 2 diabetes mellitus without complication, without long -term current use of insulin E11.9 Active 655606579 Problem Acute right-sided low back pain with right-sided sciatica M54.41 Active 662762966 Problem Sacral pain M53.3 Active 47873543 Problem Non morbid obesity E66.9 Active 908560598 Problem Paresthesias in left hand R20.2 Active 337623487 Problem GERD with esophagitis K21.0 Active 702979717 Problem Other chronic pain G89.29 Active 59957833 Problem Bronchitis J40 Active 18878469 Problem Migraine without aura and without status migrainosus, not intractable G43.009 Active 219661081 Problem Hypertension, benign I10 Active 04316868 Problem Fibromyalgia M79.7 Active 180573603 Problem Non morbid obesity due to excess calories E66.09 Active 904180031 ALLERGIES No Information ENCOUNTERS Encounter Location Date Diagnosis [facility] [address] [id number] [address] 08 Feb, 2018 Allergic reaction to drug, initial encounter T78.40XA [facility] [address], [place] [address] 07 Feb, 2018 BMI 40.0-44.9, adult Z68.41 ; Hypertension, benign I10 ; Non morbid obesity due to excess calories E66.09 and Controlled type 2 diabetes mellitus without complication, without long-term current use of insulin E11.9 [place] [id number] [place] [address] 49748- 8316 Jan, Impacted cerumen of right ear H61.21 [place] [address] 6[address]- 2270 Jan, Bilious vomiting with nausea R11.14 ; BMI 40.0-44.9, adult Z68.41 ; Hypertension, benign I10 and Fibromyalgia M79.7 [place] [address] 5[address]- 2608 Dec, Bilious vomiting with nausea R11.14 and Tachycardia R00.[address] 93019- 4780 Nov, [place] [address] 45249- 8537 Nov, BMI 40.0-44.9, adult Z68.41 ; Leg edema R60.0 and Hypertension, benign I10 [place] [address] 69803- 6205 Nov, [place] [address] 13627- 0863 October, Thoracic neuritis M54.14 [place] [address] 42718- 5704 October, Acute right hip pain M25.551 [facility] [place] [id number] [place] [address] 28433- 7629 October, [place] [address] 45885- 0532 Sep, Hypertension, benign I10 and Acute right-sided low back pain with right-sided sciatica M54.41 [place] [id number] [place] [address] 32669- 2932 Sep, Fibromyalgia M79.7 and Hypertension, benign I10 [facility] [address] [place] [address] Aug, [facility] [address] 68354- 1598 Aug, Fibromyalgia M79.7 ; Frequent headaches R51 and Non morbid obesity due to excess calories E66.09 [facility] [id number] [place] [address] 51732- 9250 Jul, [facility] [address] 61270- 5550 Jul, Fibromyalgia M79.7 [place] [address] 39974- 7889 Jul, Viral gastroenteritis A08.4 and Paresthesias in left hand R20.2 [facility] [place] [id number] [place] [address] 85622- 7840 Jun, Non morbid obesity due to excess calories E66.09 [facility] [address] 77062- 2255 Jun, [place] [address] 78200- 4981 Jun, Fibromyalgia M79.7 [facility] [id number] [place] [address] 57182- 4829 May, Non morbid obesity due to excess calories E66.09 and Hypertension, benign I10 [facility] [place] [id number] [place] [address] 01320- 8745 04 May, 2017 GERD with esophagitis K21.[address] 66936- 1177 Apr, BMI 40.0-44.9, adult Z68.41 and Non morbid obesity E66.9 [place] [id number] [place] [address] 44006- 7713 Mar, Unsteady gait R26.81 [place] [id number] [place] [address] 14469- 9123 06 Mar, 2017 Unsteady gait R26.81 ; Sacral pain M53.3 and Fibromyalgia M79.7 [place] [address] 11221- 2975 05 Mar, 2017 Non morbid obesity due to excess calories E66.09 [place] [address] 88197- 7539 28 Feb, 2017 Abdominal pain, generalized R10.84 [place] [address] 51472- 5705 18 Feb, 2017 Other chronic gastritis without hemorrhage K29.50 and H. pylori infection A04.8 [facility] [place] [id number] [place] [address] 65645- 9521 07 Feb, 2017 Back pain 724.5 ; Pain in left shoulder M25.512 ; Fibromyalgia M79.7 and Non morbid obesity due to excess calories E66.09 [facility] [place] [id number] [place] [address] 24973- 0752 07 Feb, 2017 BMI 40.0-44.9, adult Z68.41 [address] [id number] [place] [address] 82683- 0844 Jan, Dysuria R30.0 and Acute cystitis with hematuria N30.01 [id number] [place] [address] 55813- 3686 Jan, Dysuria R30.0 [facility] [place] [id number] [place] [address] 06196- 7655 Dec, Fibromyalgia M79.[address] 40468- 3542 Dec, Screening for diabetes mellitus Z13.1 and Fibromyalgia M79.7 [place] [id number] [place] [address] 87695- 6991 Dec, Fibromyalgia M79.7 [facility] [id number] [place] [address] 72556- 9314 Dec, [facility] [address] 68026- 5643 Dec, Fibromyalgia M79.7 [facility] [id number] [place] [address] 44686- 1210 Nov, Foreign body in foot, left, initial encounter S90.852A [place] [address] 40777- 4601 Nov, Viral gastroenteritis A08.[address] 96943- 0205 Nov, Fall, initial encounter W19.XXXA ; Post-traumatic headache, unspecified, not intractable G44.309 ; Dizziness R42 ; Unsteady gait R26.81 ; Sacral pain M53.3 and Non morbid obesity due to excess calories E66.09 [place] [address] 43091- 8534 Nov, [place] [address] 33680- 0210 Nov, [place] [address] 64476- 9700 October, Non morbid obesity due to excess calories E66.09 and Hypertension, benign I10 [place] [address] 29927- 0404 October, Fibromyalgia M79.7 [facility] [id number] [place] [address] 61930- 8366 Sep, [place] [address] 71414- 5086 Sep, [facility] [address] 23241- 0666 Sep, Eosinophilic colitis K52.82 [facility] [address] [place] [address]- 0883 Aug, Bronchitis J40 [facility] [id number] [place] [address] 96124- 2826 Aug, [facility] [id number] [place] [address] 75564- 6174 Aug, Pain in left shoulder M25.512 ; Bronchitis J40 ; Acute midline back pain, unspecified location M54.9 ; Migraine without aura and without status migrainosus, not intractable G43.009 ; Fibromyalgia M79.7 and Pain of upper abdomen R10.10 [place] [id number] [place] [address] 17200- 8848 Aug, [place] [address] 27695- 7336 Aug, [place] [id number] [place] [address] 31324- 1395 Jul, Other viral agents as the cause of diseases classified elsewhere B97.89 and Acute upper respiratory infection, unspecified J06.9 [facility] [id number] [place] [address] 22105- 1942 Jun, [facility] [id number] [place] [address] 78159 -6362 Jun, [facility] [id number] [place] [address] 64436- 3396 May, Abscess L02.91 [facility] [id number] [place] [address] 04628- 6468 May, Acute midline low back pain without sciatica M54.5 [facility] [id number] [place] [address] 35199 -1360 May, [facility] [id number] [place] [address] 41585- 8408 Apr, [facility] [id number] [place] [address] 24617- 3442 Apr, Other chronic pain G89.29 ; Pain in right shoulder M25.511 and Pain in left shoulder M25.512 [facility] [id number] [place] [address] 82539 2546 16 Apr, 2016 [facility] [id number] [place] [address] 20989 2546 10 Apr, 2016 [facility] [id number] [place] [address] 72122 2549 10 Apr, 2016 Fibromyalgia M79.7 ; Other chronic pain G89.29 and Pain in left shoulder M25.512 [facility] [id number] [place] [address] 95801- 3885 04 Apr, 2016 Bronchitis J40 [facility] [id number] [place] [address] 02202- 8900 27 Mar, 2016 [facility] [id number] [place] [address] [id number] Mar, [facility] [id number] [place] [address] 82409- 5797 29 Feb, 2016 [facility] [id number] [place] [address] 28861 254 26 Feb, 2016 [facility] [address] [place] [address] 61134 2547 23 Feb, 2016 [facility] [id number] [place] [address] 59142 2549 22 Feb, 2016 [facility] [id number] [place] [address] 49466 2549 20 Feb, 2015 [facility] [id number] [place] [address] 01686 2544 19 Feb, 2016 [facility] [id number] [place] [address] 64696 2542 19 Feb, 2015 Dysuria R30.0 [facility] [id number] [place] [address] 37128- 7468 Feb, Dysuria R30.0 [facility] [id number] [place] [address] 98893- 1384 Feb, [facility] [id number] [place] [address] 19344- 4130 Feb, Migraine, unspecified, not intractable, without status migrainosus G43.909 and Fibromyalgia M79.7 [facility] [address] 13116- 4271 Feb, Migraine without aura and without status migrainosus, not intractable G43.009 [place] [address] 57812- 6642 Jan, [facility] [id number] [place] [address] 08439- 3150 Jan, [place] [address] 22249- 1969 Jan, [facility] [id number] [place] [address] 96440- 0176 Jan, [facility] [address] 96171- 8982 Jan, Unsteady gait R26.81 ; Fibromyalgia M79.7 and Family history of rheumatoid arthritis Z82.61 [facility] [id number] [place] [address] 72323- 2923 Dec, [facility] [id number] [place] [address] 67106- 3682 Dec, [facility] [id number] [place] [address] 35552- 4427 Nov, Pain in left shoulder M25.512 [facility] [id number] [place] [address] 24778- 3074 October, Viral gastroenteritis A08.4 [facility] [id number] [place] [address] 63517 -2256 October, Pain of upper abdomen R10.10 [place] [id number] [place] [address] 56220- 9678 October, Acute midline back pain, unspecified location M54.9 [place] [id number] [place] [address] 56195- 0813 Aug, Elbow pain, right M25.521 [place] [address] 21467- 2322 Aug, Elbow pain, right M25.521 [place] [id number] [place] [address] 10919- 9899 Aug, Pain of right upper extremity M79.601 [place] [id number] [place] [address] 16731- 9993 Jun, Lumbar neuritis M54.16 [place] [id number] [place] [address] 69319- 6760 May, [place] [id number] [place] [address] 97065- 3297 Apr, Non morbid obesity due to excess calories E66.09 [place] [id number] [place] [address] 94810- 6669 Apr, Non morbid obesity due to excess calories E66.09 and Thoracic neuritis M54.14 [place] [id number] [place] [address] 76165- 4273 Apr, Elbow pain, right M25.521 [place] [id number] [place] [address] 38412- 5579 Mar, Right elbow pain M25.521 [place] [id number] [place] [address] 63284- 2751 Mar, [place] [id number] [place] [address] 78177- 3830 Feb, Urinary tract infection, site not specified 599.0 [facility] [id number] [place] [address] 17197- 7104 14 Feb, 2015 [facility] [id number] [place] [address] 67648- 9281 Jan, Spider bite 989.5 [facility] [id number] [place] [address] 33043- 8299 Jan, Spider bite 989.5 [facility] [address] 81680- 8581 Jan, Spider bite 989.5 [facility] [address] 13182- 3164 Nov, Back pain 724.5 and Diabetes 250.00 [facility] [address] 14865- 6846 Nov, Back pain 724.5 and Muscle spasm of back 724.8 [facility] [id number] [place] [address] 72454- 9344 Nov, Alternating constipation and diarrhea 787.99 [facility] [id number] [place] [address] 78938- 8688 October, Back pain 724.5 and Hip pain 719.45 [facility] [id number] [place] [address] 92982- 4193 Sep, [facility] [id number] [place] [address] 23354- 1435 Sep, [facility] [id number] [place] [address] 99310- 0122 Aug, [facility] [id number] [place] [address] 47273- 0464 Aug, [facility] [id number] [place] [address] 47001- 7066 Aug, [facility] [address] [place] [address]- 3186 Aug, [facility] [place] [facility] [address] [id number] [place] [address]- 4801 Aug, [facility] [place] [facility] [address] [id number] [place] [address]- 6318 18 Aug, 2014 [facility] [place] [facility] [address] [id number] [place] [address]- 5695 Jul, [facility] [place] [facility] [address] [id number] [place] [address]- 5317 Jul, [facility] [place] [facility] [address] [id number] [place] [address]- 5192 Jun, [facility] [place] [facility] [address] [id number] [place] [address]- 4705 Jun, [facility] [place] [facility] [address] [id number] [place] [address]- 0103 Jun, [facility] [place] [facility] [address] [id number] [place] [address]- 3036 Jun, [facility] [place] [facility] [address] [id number] [place] [address]- 9436 Jun, [facility] [place] [facility] [address] [id number] [place] [address]- 8122 Jun, [facility] [place] [facility] [address] [id number] [place] [address]- 4915 Jun, [facility] [place] [facility] [address] [id number] [place] [address]- 8974 May, [facility] [place] [facility] [address] [id number] [place] [address]- 9788 May, [facility] [place] [facility] [address] [id number] [place]- 4180 May, [facility] [place] [facility] [address] [id number] [place] 8277 May, [facility] [place] [facility] [address] [id number] [place] [address]- 5234 Apr, [facility] [place] [facility] [address] [id number] [place] 3367 Apr, [facility] [place] [facility] [address] [id number] [place] 8304 Mar, [facility] [place] [facility] [address] [id number] [place] [address]- 3327 Mar, [facility] [place] [facility] [address] [id number] [place] [address]- 6539 Mar, [facility] [place] [facility] [address] [id number] [place] [address]- 5745 Mar, [facility] [place] [facility] [address] [id number] [place] [address]- 6850 Mar, [facility] [place] [facility] [address] [id number] [place] [address]- 7204 Mar, [facility] [place] [facility] [address] [id number] [place] [address]- 3272 Mar, [facility] [place] [facility] [address] [id number] [place] [address]- 4929 Mar, [facility] [place] [facility] [address] [id number] [place] [address]- 3828 Mar, [facility] [place] [facility] [address] [id number] [place] [address]- 5446 Mar, [facility] [place] [facility] [address] [id number] [place] 7426 Feb, [facility] [place] [facility] [address] [id number] [place] 3604 Feb, [facility] [place] [facility] [address] [id number] [place] [address]- 8779 Jan, [facility] [place] [facility] [address] [id number] [place] [address]- 2216 Jan, [facility] [place] [facility] [address] [id number] [place] [address]- 4571 Jan, [facility] [place] [facility] [address] [id number] [place] [address]- 6555 Jan, [facility] [place] [facility] [address] [id number] [place] [address]- 8111 Jan, [facility] [place] [facility] [address] [id number] [place] [address]- 4748 Jan, [facility] [place] [facility] [address] [id number] [place] [address]- 5875 Jan, [facility] [place] [facility] [address] [id number] [place] [address]- 3041 Jan, [facility] [place] [facility] [address] [id number] [place] [address]- 0363 Jan, [facility] [place] [facility] [address] [id number] [place] [address]- 0914 Jan, [facility] [place] [facility] [address] [id number] [place] [address]- 0560 Dec, [facility] [place] [facility] [address] [id number] [place] [address] Dec, [facility] [place] [facility] [address] [id number] [place] [address] Dec, [facility] [place] [facility] [address] [id number] [place] [address] Dec, [facility] [place] [facility] [address] [id number] [place] [address] Nov, [facility] [place] [facility] [address] [id number] [place] [address] Nov, [facility] [place] [facility] [address] [id number] [place] [address] Nov, [facility] [place] [facility] [address] [id number] [place] [address] Nov, [facility] [address] [id number] [place] [address] October, [facility] [place] [facility] [address] [id number] [place] [address] October, [facility] [place] [facility] [address] [id number] [place] [address] Sep, [facility] [place] [facility] [address] [id number] [place] [address] Sep, [facility] [place] [facility] [address] [id number] [place] [address] Sep, [facility] [place] [facility] [address] [id number] [place] [address] Sep, [facility] [place] [facility] [address] [id number] [place] [address] Sep, [facility] [address] [id number] [place] [address] Sep, [facility] [place] [facility] [address] [id number] [place] [address] Sep, [facility] [place] [facility] [address] [id number] [place] [address] Sep, [facility] [place] [facility] [address] [id number] [place] [address] Sep, [facility] [place] [facility] [address] [id number] [place] [address] Sep, [facility] [place] [facility] [address] [id number] [place] [address] Jul, [facility] [place] [facility] [address] [id number] [place] [address] Jul, [facility] [place] [facility] [address] [id number] [place] [address] Jul, [facility] [place] [facility] [address] [id number] [place] [address] Jul, [facility] [place] [facility] [address] [id number] [place] [address] Jun, [facility] [place] [facility] [address] [id number] [place] [address] Jun, [facility] [place] [facility] [address] [id number] [place] [address] Jun, [facility] [place] [facility] [address] [id number] [place] [address] Jun, [facility] [place] [facility] [address] [id number] [place] [address] Jun, [facility] [place] [facility] [address] [id number] [place] [address] Jun, [facility] [place] [facility] [address] [id number] [place] [address] Apr, [facility] [place] [facility] [address] [id number] [place] [address] Apr, [facility] [place] [facility] [address] [id number] [place] [address] Apr, [facility] [place] [facility] [address] [id number], [place] [address] Apr, [facility] [place] [facility] [address] [id number], [place] [address] Apr, [facility] [place] [facility] [address] [id number] [place] [address] Apr, [facility] [place] [facility] [address] [id number], [place] [address] Apr, [facility] [place] [facility] [address] [id number] [place] [address] Apr, [facility] [place] [facility] [address] [id number] [place] [address] Mar, [facility] [address] [id number] [place] [address] Mar, [facility] [place] [facility] [address] [id number] [place] [address] Feb, [facility] [place] [facility] [address] [id number] [place] [address] Feb, [facility] [place] [facility] [address] [id number] [place] [address] Dec, [facility] [place] [facility] [address] [id number] [place] [address] Dec, [facility] [place] [facility] [address] [id number] [place] [address]- [address] Dec, [facility] [place] [facility] [address] [id number] [place] [address] Dec, [facility] [place] [facility] [address] [id number] [place] [address] Dec, [facility] [place] [facility] [address] [id number] [place] [address] Dec, [facility] [place] [facility] [address] [id number] [place] [address] 4[address] Dec, [facility] [place] [facility] [address] [id number] [place] [address] 269[address] Nov, [facility] [place] [facility] [address] [id number] [place] [address] Nov, [facility] [place] [facility] [address] [id number] [place] [address] Nov, [facility] [place] [facility] [address] [id number] [place] [address] 3[address] Nov, [facility] [place] [facility] [address] [id number] [place] [address] 5947 October, [facility] [place] [facility] [address] [id number] [place] [address] 59[address] October, [facility] [address] [id number] [place] [address] 5689 October, [facility] [address] [id number] [place] [address] October, [facility] [address] [id number] [place] [address] 78[address] Sep, [facility] [address] [id number] [place] [address] 0[address] Aug, [facility] [address] [id number] [place] [address] Aug, [facility] [address] [id number] [place] [address] 8[address] Aug, [facility] [address] [id number] [place] [address] 4125 Aug, [facility] [address] [id number] [place] [address] 0680 Aug, [facility] [address] [id number] [place] [address] 0183 Jul, [facility] [address] [id number] [place] [address] 7193 Jul, [facility] [address] [id number] [place] [address] 6919 Jul, [facility] [address] [id number] [place] [address] 7139 Jul, [facility] [address] [id number] [place] [address] 62[address] Jul, [facility] [place] [facility] [address] [id number] [place] [address] 1536 Jul, [facility] [address] [id number] [place] [address] 20 Jul, 2012 [facility] [address] [id number] [place] [address]- 9436 15 Jul, 2012 [facility] [address] [id number] [place] [address]46 14 Jul, 2012 [facility] [address] [id number] [place] [address] 5826 11 Jul, 2012 [facility] [address] [id number] [place] [address] 3226 31 Jun, 2012 [facility] [address] [id number] [place] [address] 2104 24 Jun, 2012 [facility] [address] [id number] [place] [address] Jun, [facility] [address] [facility] [id number] [place] [address] May, [facility] [address] [id number] [place] [address] 9417 May, [facility] [address] [id number] [place] [address] Apr, [facility] [address] [facility] [id number] [place] [address] 8338 Apr, [facility] [address] [id number] [place] [address] Apr, [facility] [address] [id number] [place] [address] 2547 Apr, [facility] [place] [facility] [address] [id number] [place] [address] 4700 Apr, [facility] [place] [facility] [address] [id number] [place] [address] 2548 Apr, [facility] [address] [facility] [id number] [place] [address]117 Apr, [facility] [place] [facility] [address] [id number] [place] [address] 3944 Apr, [facility] [place] [facility] [address] [id number] [place] [address] 2066 Mar, [facility] [place] [facility] [address] [id number] [place] [address] 9885 Mar, [facility] [place] [facility] [address] [id number] [place] [address] 6866 Mar, [facility] [place] [facility] [address] [id number] [place] [address] 2435 Mar, [facility] [place] [facility] [address] [id number] [place] [address] 3616 Mar, [facility] [place] [facility] [address] [id number] [place] [address] 7357 Mar, [facility] [place] [facility] [address] [id number], [place] [address]447 Mar, [facility] [place] [facility] [address] [id number] [place] [address] 5212 Mar, [facility] [place] [facility] [address] [facility] [id number], [place] [address] 6896 Mar, [facility] [place] [facility] [address] [facility] [id number], [place] [address] 8546 Feb, [facility] [place] [facility] [address] [id number], [place] [address]66 Jan, [facility] [place] [facility] [address] [id number] [place] [address] 3506 Jan, [facility] [place] [facility] [address] [id number], [place] [address] Jan, [facility] [place] [facility] [address] [facility] [id number], [place] [address] 4166 Dec, [facility] [place] [facility] [address] [id number], [place] [address] Dec, [facility] [address] [id number] [place] [address] 2793 Dec, [facility] [place] [facility] [address] [id number] [place] [address]- 4736 Nov, [facility] [address] [id number] [place] [address] 1080 October, [facility] [place] [facility] [address] [id number] [place] [address]- 5692 October, [facility] [address] [id number] [place] [address]- 5984 October, [facility] [place] [facility] [address] [id number] [place] [address]- 9203 October, [facility] [address] [id number] [place] [address]- 9055 October, [facility] [place] [facility] [address] [id number] [place] [address]- 6394 30 Sep, 2011 [facility] [place] [facility] [address] [id number] [place] [address]- 1426 Sep, [facility] [place] [facility] [address] [id number] [place] [address]- 3960 Sep, [facility] [place] [facility] [address] [id number] [place] [address]- 6106 Sep, [facility] [place] [facility] [address] [id number] [place] [address]- 2229 Sep, [facility] [place] [facility] [address] [id number] [place] [address]- 3009 Sep, [facility] [place] [facility] [address] [id number] [place] [address]- 4856 Sep, [facility] [place] [facility] [address] [id number] [place] [address]- 9733 Aug, [facility] [place] [facility] [address] [id number] [place] [address]- 2599 23 Aug, 2011 [facility] [place] [facility] [address] [id number] [place] [address]- 2444 21 Aug, 2011 [facility] [place] [facility] [address] [id number] [place] [address]- 0156 21 Aug, 2011 [facility] [place] [facility] [address] [id number] [place] [address]- 5156 20 Aug, 2011 [facility] [place] [facility] [address] [id number] [place] [address]- 4077 19 Aug, 2011 [facility] [place] [facility] [address] [id number] [place] [address]- 9871 16 Aug, 2011 [facility] [place] [facility] [address] [id number] [place] [address]- 2169 15 Aug, 2011 [facility] [place] [facility] [address] [id number] [place] [address]- 4537 15 Aug, 2011 [facility] [place] [facility] [address] [id number] [place] [address]- 3275 14 Aug, 2011 [facility] [place] [facility] [address] [id number] [place] [address]- 3352 12 Aug, 2011 [facility] [place] [facility] [address] [id number] [place] [address]- 9449 08 Aug, 2011 [facility] [place] [facility] [address] [id number] [place] [address]- 2833 15 Jul, 2011 [facility] [place] [facility] [address] [id number] [place] [address]- 6601 15 Jul, 2011 [facility] [place] [facility] [address] [id number] [place] [address]- 6512 14 Jul, 2011 [facility] [place] [facility] [address] [id number] [place] [address]- 1186 06 Jul, 2011 [facility] [place] [facility] [address] [id number], [place] [address]- 0636 Jul, [facility] [place] [facility] [address] [id number] [place] [address]- 8030 Jun, [facility] [place] [facility] [address] [id number] [place] [address]- 8323 Jun, [facility] [place] [facility] [address] [id number] [place] [address]- 0363 Jun, [facility] [place] [facility] [address] [id number] [place] [address]- 1771 May, [facility] [place] [facility] [address] [id number] [place] [address]- 1137 May, [facility] [place] [facility] [address] [id number] [place] [address]- 4797 May, [facility] [place] [facility] [address] [id number] [place] [address]- 2719 May, [facility] [place] [facility] [address] [id number] [place] [address]- 1130 14 May, 2011 [facility] [place] [facility] [address] [id number] [place] [address]- 8645 16 Apr, 2011 [facility] [place] [facility] [address] [id number] [place] [address]- 0876 16 Apr, 2011 [facility] [place] [facility] [address] [id number], [place] [address]- 5729 15 Apr, 2011 [facility] [place] [facility] [address] [id number], [place] [address]- 6088 14 Apr, 2011 [facility] [place] [facility] [address] [id number] [place] [address]- 9015 25 Mar, 2011 [facility] [place] [facility] [address] [id number], [place] [address]- 6567 24 Mar, 2011 [facility] [place] [facility] [address] [id number] [place] [address]- 7873 Mar, [facility] [place] [facility] [id number], [place] [address] Mar, [facility] [id number], [place] [address]- 1266 Mar, [facility] [address] [facility] [id number], [place] [address] 2546 17 Mar, 2011 [facility] [id number], [place] [address]- 2266 16 Feb, 2011 [facility] [id number], [place] [address]- 4576 Nov, [facility] [id number], [place] [address]- 7976 Aug, [facility] [id number], [place] [address]- 6226 Apr, [facility] [id number], [place] [address]- 5886 Mar, [facility] [id number], [place] [address]- 9728 Apr, [facility] [id number], [place] [address]- 9996 Apr, [facility] [id number], [place] [address]- 4986 Sep, [facility] [id number], [place] [address]- 0696 Mar, IMMUNIZATIONS No Known Immunizations SOCIAL HISTORY Never Assessed REASON FOR VISIT Repository Medication PLAN OF CARE VITAL SIGNS MEDICATIONS Medication Instructions Dosage Frequency Start Date End Date Duration Status Micardis 20 mg Orally Once a day 1 tablet by Oral route 1 time per day 24h 15 Jun, 2014 30 days Active Propranolol HCl 60 MG Orally Twice a day 1 tablet 12h October, 90 days Active Spironolactone 25 MG Orally Once a day 1 tablet with food 24h Nov, 90 days Active Pantoprazole Sodium 40 mg Orally Once a day 1 tablet 24h May, 90 days Active MetFORMIN HCl ER 500 mg Orally twice a day 2 tablets 12h 03 Jan, 2018 90 days Active Crestor 10 mg Orally Once a day 1 tablet 24h 16 Feb, 2014 90 days Active RESULTS No Results PROCEDURES No Known [...]
--- OUTSIDE RECORDS SUMMARY | 2018-06-19 13:21 | XMS REPORT ---
Author Author ARISTEO ARAYA Organization [facility] Address [address] [place] [address] Care Team Providers [employer] Name Role Phone ARISTEO ARAYA Unavailable PROBLEMS Type Condition ICD9-CM Code XLA02-PB Code Onset Dates Condition Status SNOMED Code Problem Eosinophilic colitis K52.82 Active 05576349 Problem Other chronic gastritis without hemorrhage K29.50 Active 3986390 Problem Unsteady gait R26.81 Active 65508292 Problem Controlled type 2 diabetes mellitus without complication, without long -term current use of insulin E11.9 Active 773481834 Problem Acute right-sided low back pain with right-sided sciatica M54.41 Active 519629152 Problem Sacral pain M53.3 Active 19304038 Problem Non morbid obesity E66.9 Active 691429313 Problem Paresthesias in left hand R20.2 Active 611029455 Problem GERD with esophagitis K21.0 Active 469682950 Problem Other chronic pain G89.29 Active 09588514 Problem Bronchitis J40 Active 80573811 Problem Migraine without aura and without status migrainosus, not intractable G43.009 Active 585937761 Problem Hypertension, benign I10 Active 34706768 Problem Fibromyalgia M79.7 Active 041013885 Problem Non morbid obesity due to excess calories E66.09 Active 561441687 ALLERGIES Substance Reaction Event Type Date Status Singulair Unknown Drug Allergy Jan, Active Lisinopril Unknown Drug Allergy Jan, Active metals Unknown Non Drug Allergy Jan, Active ENCOUNTERS Encounter Location Date Diagnosis [facility] [address] [facility] [id number] [address] Feb, BMI 40.0-44.9, adult Z68.41 and Body aches R52 [facility] [address] [facility] [id number], [place] [address] 08 Feb, 2018 Allergic reaction to drug, initial encounter T78.40XA [place] [address] [address] 07 Feb, 2018 BMI 40.0-44.9, adult Z68.41 ; Hypertension, benign I10 ; Non morbid obesity due to excess calories E66.09 and Controlled type 2 diabetes mellitus without complication, without long-term current use of insulin E11.[address] [address] Jan, Impacted cerumen of right ear H61.21 [place] [address] [address]- [address] Jan, Bilious vomiting with nausea R11.14 ; BMI 40.0-44.9, adult Z68.41 ; Hypertension, benign I10 and Fibromyalgia M79.7 [place] [address] [address]- [address] Dec, Bilious vomiting with nausea R11.14 and Tachycardia R00.0 [place] [address] [address]- 3[address] Nov, [address] [address]- 359[address] Nov, BMI 40.0-44.9, adult Z68.41 ; Leg edema R60.0 and Hypertension, benign I10 [place] [address] [address]- [address] Nov, [place] [address] [address]- [address] October, Thoracic neuritis M54.14 [place] [address] 45345- 0678 October, Acute right hip pain M25.551 [place] [address] [address]- 1328 October, [place] [address] [address]- 9[address] Sep, Hypertension, benign I10 and Acute right-sided low back pain with right-sided sciatica M54.41 [place] [address] 36414- 2671 Sep, Fibromyalgia M79.7 and Hypertension, benign I10 [place] [address] 28368- 3366 Aug, [place] [address] [address]- 9059 Aug, Fibromyalgia M79.7 ; Frequent headaches R51 and Non morbid obesity due to excess calories E66.09 [place] [address] [address]- 8465 Jul, [place] [address] [address]- 9[address] Jul, Fibromyalgia M79.7 [place] [address] 71209- 1335 Jul, Viral gastroenteritis A08.4 and Paresthesias in left hand R20.2 [place] [address] [address]- [address] Jun, Non morbid obesity due to excess calories E66.09 [place] [address] 96057- 2183 Jun, [place] [address] 74[address]- 6148 Jun, Fibromyalgia M79.7 [place] [address] [address]32- 5581 May, Non morbid obesity due to excess calories E66.09 and Hypertension, benign I10 [place] [address] 88[address]- 8651 May, GERD with esophagitis K21.0 [place] [address] [place] [address] Apr, BMI 40.0-44.9, adult Z68.41 and Non morbid obesity E66.9 [place] [address] 277[address]- [address] Mar, Unsteady gait R26.81 [place] [address] 02858- 2627 Mar, Unsteady gait R26.81 ; Sacral pain M53.3 and Fibromyalgia M79.[address] 26[address]- 8340 Mar, Non morbid obesity due to excess calories E66.09 [place] [address] 93790- 5[address] 28 Feb, 2017 Abdominal pain, generalized R10.[address] [address]- 8[address] 18 Feb, 2017 Other chronic gastritis without hemorrhage K29.50 and H. pylori infection A04.[address] 00687- 1642 07 Feb, 2017 Back pain 724.5 ; Pain in left shoulder M25.512 ; Fibromyalgia M79.7 and Non morbid obesity due to excess calories E66.09 [place] [address] [place] [id number] [place] [address]46- 9[address] 07 Feb, 2017 BMI 40.0-44.9, adult Z68.41 [place] [address] [address]95- 1516 Jan, Dysuria R30.0 and Acute cystitis with hematuria N30.[address] [address]34- 7028 Jan, Dysuria R30.0 [place] [address] 94580- 3770 Dec, Fibromyalgia M79.7 [place] [address] [place] [id number] [place] [address] 80425- 8490 Dec, Screening for diabetes mellitus Z13.1 and Fibromyalgia M79.7 [place] [address] [place] [id number] [place] [address] 39282- 5186 Dec, Fibromyalgia M79.7 [place] [address] [place] [id number] [place] [address] 88409- 9841 Dec, [place] [address] 09157- 7872 Dec, Fibromyalgia M79.[address] 64533- 3267 Nov, Foreign body in foot, left, initial encounter S90.852A [address] 38227- 2602 Nov, Viral gastroenteritis A08.[address] 50107- 9120 Nov, Fall, initial encounter W19.XXXA ; Post-traumatic headache, unspecified, not intractable G44.309 ; Dizziness R42 ; Unsteady gait R26.81 ; Sacral pain M53.3 and Non morbid obesity due to excess calories E66.09 [place] [address] [place] [id number] [place] [address] 64140- 6199 Nov, [place] [address] 13061- 4829 Nov, [place] [address] [place] [id number] [place] [address] 99416- 0008 October, Non morbid obesity due to excess calories E66.09 and Hypertension, benign I10 [place] [address] [place] [id number] [place] [address] 50409- 9479 October, Fibromyalgia M79.7 [place] [address] 58081- 1382 Sep, [facility] [address] [place] [address] 81811- 5381 Sep, [facility] [address] [place] [id number] [place] [address] 91263- 1562 Sep, Eosinophilic colitis K52.82 [facility] [address] [place] [id number] [place] [address] 67726- 3039 Aug, Bronchitis J40 [facility] [address] 56555- 5171 Aug, [place] [address] [place] [id number] [place] [address] 07664- 0255 Aug, Pain in left shoulder M25.512 ; Bronchitis J40 ; Acute midline back pain, unspecified location M54.9 ; Migraine without aura and without status migrainosus, not intractable G43.009 ; Fibromyalgia M79.7 and Pain of upper abdomen R10.10 [facility] [address] [place] [id number] [place] [address] 41131- 4430 Aug, [place] [address] [place] [id number] [place] [address] 49351- 6585 Aug, [facility] [address] [place] [id number] [place] [address] 12776- 8132 Jul, Other viral agents as the cause of diseases classified elsewhere B97.89 and Acute upper respiratory infection, unspecified J06.9 [facility] [address] [place] [id number] [place] [address] 84032- 7740 Jun, [facility] [id number] [place] [address] 12452 -6978 Jun, [facility] [address] [place] [id number] [place] [address] 33380- 2596 May, Abscess L02.91 [facility] [address] [place] [id number] [place] [address] 13981- 6774 May, Acute midline low back pain without sciatica M54.5 [facility] [address] [facility] [id number] [address] May, [facility] [address] [place] [address] 30683- 7006 Apr, [facility] [address] [address] 2546 Apr, Other chronic pain G89.29 ; Pain in right shoulder M25.511 and Pain in left shoulder M25.512 [facility] [address] [facility] [id number], [place] [address] 2546 16 Apr, 2016 [facility] [address] [place] [id number] [place] [address] 25636- 4316 Apr, [facility] [address] [place] [address] 06206- 1846 Apr, Fibromyalgia M79.7 ; Other chronic pain G89.29 and Pain in left shoulder M25.512 [facility] [address] [address] 8909 Apr, Bronchitis J40 [facility] [address] [address] 8[address] Mar, [facility] [id number] [address] Mar, [facility] [address] [address]- 8946 29 Feb, 2016 [facility] [address] [address] 2549 26 Feb, 2016 [facility] [address] [address] 2546 23 Feb, 2016 [facility] [address] [id number] [address] 2546 22 Feb, 2016 [facility] [address] [address] 2546 20 Feb, 2016 [facility] [address] [place] [id number] [place] [address] 25213- 6775 19 Feb, 2016 [facility] [address] 62044- 9051 19 Feb, 2016 Dysuria R30.0 [facility] [address] [place] [id number] [place] [address] 88666- 3634 19 Feb, 2016 Dysuria R30.0 [facility] [address] 32060- 4913 16 Feb, 2016 [facility] [address] [place] [id number] [place] [address] 55058- 5741 15 Feb, 2016 Migraine, unspecified, not intractable, without status migrainosus G43.909 and Fibromyalgia M79.7 [facility] [address] [place] [id number] [place] [address] 71585- 5026 06 Feb, 2016 Migraine without aura and without status migrainosus, not intractable G43.009 [facility] [address] [place] [id number] [place] [address] 13319- 8213 Jan, [facility] [address] 07714- 9131 Jan, [facility] [address] [place] [id number] [place] [address] 30917- 8102 Jan, [facility] [address] [place] [id number] [place] [address] 00153- 4313 Jan, [facility] [address] [place] [id number] [place] [address] 58312- 6972 Jan, Unsteady gait R26.81 ; Fibromyalgia M79.7 and Family history of rheumatoid arthritis Z82.61 [facility] [address] [place] [id number] [place] [address] 69326- 0910 Dec, [facility] [address] [place] [id number] [place] [address] 85547- 5295 Dec, [facility] [address] [place] [address]- 6609 Nov, Pain in left shoulder M25.512 [place] [address] 45309- 0264 October, Viral gastroenteritis A08.4 [facility] [address] [place] [id number] [place] [address] 91982 -2313 October, Pain of upper abdomen R10.10 [place] [address] 81447- 1882 October, Acute midline back pain, unspecified location M54.9 [place] [address] 47143- 5761 Aug, Elbow pain, right M25.521 [place] [address] 72297- 5113 Aug, Elbow pain, right M25.521 [place] [address] 71219- 0774 Aug, Pain of right upper extremity M79.601 [place] [address] 77951- 6123 Jun, Lumbar neuritis M54.16 [place] [address] 47372- 2873 May, [place] [address] 47591- 4478 Apr, Non morbid obesity due to excess calories E66.09 [place] [address] 07902- 2170 Apr, Non morbid obesity due to excess calories E66.09 and Thoracic neuritis M54.14 [place] [address] 46799- 3924 Apr, Elbow pain, right M25.521 [place] [address] 64657- 4104 Mar, Right elbow pain M25.521 [facility] [address] [place] [id number] [place] [address] 92318- 0698 Mar, [facility] [address] 36154- 6170 30 Feb, 2015 Urinary tract infection, site not specified 599.0 [facility] [address] 35049- 3773 14 Feb, 2015 [facility] [address] 76468- 0839 Jan, Spider bite 989.5 [place] [address] 70915- 3077 Jan, Spider bite 989.5 [place] [address] 56962- 1320 Jan, Spider bite 989.5 [place] [address] 95358- 6051 10 Nov, 2014 Back pain 724.5 and Diabetes 250.00 [place] [address] 83657- 5616 Nov, Back pain 724.5 and Muscle spasm of back 724.8 [place] [address] 22311- 2077 Nov, Alternating constipation and diarrhea 787.99 [facility] [address] 79102- 0842 October, Back pain 724.5 and Hip pain 719.45 [facility] [address] 16944- 0466 Sep, [facility] [address] 56186- 9615 Sep, [facility] [address] 00014- 2546 Aug, [facility] [place] [facility] [address] [id number] [place] [address]- 0742 Aug, [facility] [place] [facility] [address] [id number] [place] [address]- 6762 Aug, [facility] [place] [facility] [address] [id number] [place] [address]- 4693 Aug, [facility] [place] [facility] [address] [id number] [place] [address]- 2585 Aug, [facility] [place] [facility] [address] [id number] [place] [address]- 7113 Aug, [facility] [place] [facility] [address] [id number] [place] [address]- 5405 Jul, [facility] [place] [facility] [address] [id number] [place] [address]- 0193 Jul, [facility] [place] [facility] [address] [id number] [place] [address]- 3703 Jun, [facility] [place] [facility] [address] [id number] [place] [address]- 4751 Jun, [facility] [place] [facility] [address] [id number] [place] [address]- 4611 Jun, [facility] [place] [facility] [address] [id number] [place] [address]- 4936 Jun, [facility] [place] [facility] [address] [id number] [place] [address]- 3730 Jun, [facility] [place] [facility] [address] [id number] [place] [address]- 4863 Jun, [facility] [place] [facility] [address] [id number] [place] [address]- 2467 Jun, [facility] [place] [facility] [address] [id number] [place] [address]- 8192 May, [facility] [place] [facility] [address] [id number] [place] [address]- 2079 30 May, 2014 [facility] [place] [facility] [address] [id number] [place] [address]- 6444 May, [facility] [place] [facility] [address] [id number] [place] [address]- 6836 May, [facility] [place] [facility] [address] [id number] [place] [address]- 5784 Apr, [facility] [place] [facility] [address] [id number] [place] [address]- 5282 Apr, [facility] [place] [facility] [address] [id number] [place] [address]- 2093 Mar, [facility] [place] [facility] [address] [id number] [place] [address]- 7202 Mar, [facility] [place] [facility] [address] [id number] [place] [address]- 4325 Mar, [facility] [place] [facility] [address] [id number] [place] [address]- 9221 Mar, [facility] [place] [facility] [address] [id number] [place] [address]- 6974 Mar, [facility] [place] [facility] [address] [id number] [place] [address]- 9376 15 Mar, 2014 [facility] [place] [facility] [address] [id number] [place] [address]- 0794 Mar, [facility] [place] [facility] [address] [id number] [place] 2037 Mar, [facility] [place] [facility] [address] [id number] [place] [address]- 8790 Mar, [facility] [place] [facility] [address] [id number] [place] [address]- 0386 08 Mar, 2014 [facility] [place] [facility] [address] [id number] [place] [address]- 9768 Feb, [facility] [place] [facility] [address] [id number] [place] [address]- 8773 Feb, [facility] [place] [facility] [address] [id number] [place] [address]- 7971 Jan, [facility] [place] [facility] [address] [id number] [place] [address]- 2823 Jan, [facility] [place] [facility] [address] [id number] [place] [address]- 8655 Jan, [facility] [place] [facility] [address] [id number] [place] [address]- 3660 Jan, [facility] [place] [facility] [address] [id number] [place] [address]- 1847 Jan, [facility] [place] [facility] [address] [id number] [place] [address]- 1929 Jan, [facility] [place] [facility] [address] [id number] [place] [address]- 5001 Jan, [facility] [place] [facility] [address] [id number] [place] [address]- 1408 Jan, [facility] [place] [facility] [address] [id number] [place] [address]- 3282 Jan, [facility] [place] [facility] [address] [id number] [place] [address]- 4730 Jan, [facility] [place] [facility] [address] [id number] [place] [address]- 0167 Dec, [facility] [place] [facility] [address] [id number] [place] [address]- 7354 Dec, [facility] [place] [facility] [address] [id number] [place] [address]- 8442 Dec, [facility] [place] [facility] [address] [id number] [place] [address]- 4203 Dec, [facility] [place] [facility] [address] [id number] [place] [address]- 7270 Nov, [facility] [place] [facility] [address] [id number] [place] [address]- 8691 Nov, [facility] [place] [facility] [address] [id number] [place] [address]- 5013 Nov, [facility] [place] [facility] [address] [id number] [place] [address]- 9647 Nov, [facility] [place] [facility] [address] [id number] [place] [address]- 7613 October, [facility] [place] [facility] [address] [id number] [place] [address]- 4413 October, [facility] [place] [facility] [address] [id number] [place] [address]- 2395 Sep, [facility] [place] [facility] [address] [id number] [place] [address]- 0267 Sep, [facility] [place] [facility] [address] [id number] [place] [address]- 2971 Sep, [facility] [place] [facility] [address] [id number] [place] [address]- 9577 Sep, [facility] [place] [facility] [address] [id number] [place] [address]- 1413 Sep, [facility] [place] [facility] [address] [id number] [place] [address]- 8805 Sep, [facility] [place] [facility] [address] [id number] [place] [address]- 4411 Sep, [facility] [place] [facility] [address] [id number] [place] [address]- 3679 Sep, [facility] [place] [facility] [address] [id number] [place] [address]- 1715 Sep, [facility] [place] [facility] [address] [id number] [place] [address]- 0174 Sep, [facility] [place] [facility] [address] [id number] [place] [address]- 7280 Jul, [facility] [place] [facility] [address] [id number] [place] [address]- 3927 Jul, [facility] [place] [facility] [address] [id number] [place] [address]- 5211 Jul, [facility] [place] [facility] [address] [id number] [place] [address]- 7827 Jul, [facility] [place] [facility] [address] [id number] [place] [address]- 5713 Jun, [facility] [place] [facility] [address] [id number] [place] [address]- 8621 Jun, [facility] [place] [facility] [address] [id number] [place] [address]- 7551 Jun, [facility] [place] [facility] [address] [id number] [place] [address]- 8605 Jun, [facility] [place] [facility] [address] [id number] [place] [address]- [address] Jun, [facility] [place] [facility] [address] [id number] [place] [address] Jun, [facility] [place] [facility] [address] [id number] [place] [address] Apr, [facility] [place] [facility] [address] [id number] [place] [address] Apr, [facility] [place] [facility] [address] [id number] [place] [address] Apr, [facility] [place] [facility] [address] [id number] [place] [address] Apr, [facility] [place] [facility] [address] [id number] [place] [address] Apr, [facility] [place] [facility] [address] [id number], [place] [address] Apr, [facility] [place] [facility] [address] [id number] [place] [address] Apr, [facility] [place] [facility] [address] [id number] [place] [address] Apr, [facility] [place] [facility] [address] [id number] [place] [address] Mar, [facility] [place] [facility] [address] [id number] [place] [address] Mar, [facility] [place] [facility] [address] [id number] [place] [address] Feb, [facility] [place] [facility] [address] [id number] [place] [address] Feb, [facility] [place] [facility] [address] [id number] [place] [address] Dec, [facility] [place] [facility] [address] [id number] [place] [address] Dec, [facility] [place] [facility] [address] [id number] [place] [address] Dec, [facility] [place] [facility] [address] [id number] [place] [address] Dec, [facility] [place] [facility] [address] [id number] [place] [address] Dec, [facility] [place] [facility] [address] [id number] [place] [address] Dec, [facility] [place] [facility] [address] [id number] [id number] [address] Dec, [facility] [place] [facility] [address] [id number] [id number] Nov, [facility] [place] [facility] [address] [id number] [place] [address] Nov, [facility] [place] [facility] [address] [id number] [place] [address] 08 Nov, 2012 [facility] [address] [id number] [place] [address] Nov, [facility] [place] [facility] [address] [id number] [place] [address] October, [facility] [address] [id number] [place] [address] October, [facility] [address] [id number] [place] [address] October, [facility] [address] [id number] [place] [address] October, [facility] [address] [id number] [place] [address] Sep, [facility] [address] [id number] [place] [address] Aug, [facility] [address] [id number] [place] [address] Aug, [facility] [address] [id number] [place] [address] Aug, [facility] [address] [id number] [place] [address] Aug, [facility] [place] [facility] [address] [id number] [place] [address] Aug, [facility] [address] [id number] [place] [address] Jul, [facility] [place] [facility] [address] [id number] [place] [address] Jul, [facility] [place] [facility] [address] [id number] [place] [address] Jul, [facility] [place] [facility] [address] [id number] [place] [address] Jul, [facility] [address] [id number] [place] [address] Jul, [facility] [place] [facility] [address] [id number] [place] [address] Jul, [facility] [address] [facility] [id number] [place] [address]46 20 Jul, 2012 [facility] [place] [facility] [address] [id number] [place] [address]46 15 Jul, 2012 [facility] [address] [id number] [place] [address] 14 Jul, 2012 [facility] [address] [facility] [id number] [place] [address] Jul, [facility] [address] [id number] [address] Jun, [facility] [address] [facility] [id number] [place] [address] Jun, [facility] [address] [facility] [id number] [place] [address] Jun, [facility] [address] [facility] [id number] [place] [address] May, [facility] [address] [facility] [id number] [place] [address] 74[address] May, [facility] [place] [facility] [address] [id number], [place] [address] Apr, [facility] [place] [facility] [address] [id number] [place] [address] Apr, [facility] [place] [facility] [address] [facility] [id number] [place] [address] Apr, [facility] [place] [facility] [address] [facility] [id number] [place] [address] Apr, [facility] [place] [facility] [address] [id number] [place] [address] 41[address] Apr, [facility] [place] [facility] [address] [id number] [place] [address]16 Apr, [facility] [place] [facility] [address] [id number] [place] [address] 3046 Apr, [facility] [place] [facility] [address] [id number] [place] [address] 23[address] Apr, [facility] [place] [facility] [address] [id number] [place] [address] Mar, [facility] [place] [facility] [address] [id number] [place] [address] Mar, [facility] [place] [facility] [address] [id number] [place] [address] Mar, [facility] [place] [facility] [address] [id number] [place] [address] 4676 Mar, [facility] [place] [facility] [address] [id number] [place] [address] 7875 Mar, [facility] [place] [facility] [address] [id number] [place] [address] Mar, [facility] [place] [facility] [address] [id number] [place] [address] Mar, [facility] [place] [facility] [address] [id number] [place] [address] Mar, [facility] [place] [facility] [address] [id number] [place] [address] Mar, [facility] [place] [facility] [address] [id number] [place] [address] Feb, [facility] [place] [facility] [address] [id number] [place] [address] Jan, [facility] [place] [facility] [address] [id number] [place] [address] 5144 Jan, [facility] [place] [facility] [address] [id number] [place] [address] 99[address] Jan, [facility] [place] [facility] [address] [id number] [place] [address] Dec, [facility] [place] [facility] [address] [id number] [place] [address]37 Dec, [facility] [place] [facility] [address] [id number] [place] [address] 2590 Dec, [facility] [place] [facility] [address] [id number] [place] [address] Nov, [facility] [place] [facility] [address] [id number] [place] [address] October, [facility] [place] [facility] [address] [id number] [place] [address] October, [facility] [place] [facility] [address] [id number] [place] [address] 97[address] October, [facility] [place] [facility] [address] [id number] [place] [address] October, [facility] [place] [facility] [address] [id number] [place] [address] 17[address] October, [facility] [place] [facility] [address] [id number] [place] [address] Sep, [facility] [place] [facility] [address] [id number] [place] [address]- 4369 Sep, [facility] [place] [facility] [address] [id number] [place] [address]- 3865 Sep, [facility] [place] [facility] [address] [id number] [place] [address]- 4823 Sep, [facility] [place] [facility] [address] [id number] [place] [address]- 7246 Sep, [facility] [place] [facility] [address] [id number] [place] [address]- 7435 11 Sep, 2011 [facility] [address] [id number] [place] [address]- 4806 11 Sep, 2011 [facility] [place] [facility] [address] [id number] [place] [address]- 7076 28 Aug, 2011 [facility] [address] [id number] [place] [address] 23 Aug, 2011 [facility] [place] [facility] [address] [id number] [place] [address] 2546 21 Aug, 2011 [facility] [address] [id number] [place] [address]- 7310 21 Aug, 2011 [facility] [place] [facility] [address] [id number] [place] [address]- 4491 20 Aug, 2011 [facility] [address] [id number] [place] [address]- 2208 19 Aug, 2011 [facility] [address] [id number] [place] [address]- 2771 16 Aug, 2011 [facility] [place] [facility] [address] [id number] [place] [address]- 3114 15 Aug, 2011 [facility] [place] [facility] [address] [id number] [place] [address]- 3450 15 Aug, 2011 [facility] [place] [facility] [address] [id number] [place] [address]- 8046 14 Aug, 2011 [facility] [place] [facility] [address] [id number] [place] [address]- 3162 12 Aug, 2011 [facility] [place] [facility] [address] [id number] [place] [address]- 8886 08 Aug, 2011 [facility] [place] [facility] [address] [id number] [place] [address]- 7386 15 Jul, 2011 [facility] [place] [facility] [address] [id number] [place] [address]- 9785 15 Jul, 2011 [facility] [place] [facility] [address] [id number] [place] [address]- 6287 14 Jul, 2011 [facility] [place] [facility] [address] [id number] [place] [address]- 8636 06 Jul, 2011 [facility] [place] [facility] [address] [id number] [place] [address]- 4745 02 Jul, 2011 [facility] [place] [facility] [address] [id number] [place] [address]- 5758 Jun, [facility] [place] [facility] [address] [id number] [place] [address]- 8787 Jun, [facility] [place] [facility] [address] [id number] [place] [address]- 6069 Jun, [facility] [place] [facility] [address] [id number] [place] [address]- 3007 29 May, 2011 [facility] [place] [facility] [address] [id number] [place] [address]- 5326 21 May, 2011 [facility] [place] [facility] [address] [id number] [place] [address]- 0030 19 May, 2011 [facility] [place] [facility] [address] [id number] [place] [address]- 7361 19 May, 2011 [facility] [place] [facility] [address] [id number] [place] [address]- 8834 14 May, 2011 [facility] [place] [facility] [address] [id number] [place] [address]- 9697 16 Apr, 2011 [facility] [place] [facility] [address] [id number] [place] [address] 2547 16 Apr, 2011 [facility] [place] [facility] [address] [id number] [place] [address]- 254 15 Apr, 2011 [facility] [place] [facility] [address] [id number] [place] [address] 14 Apr, 2011 [facility] [place] [facility] [address] [id number], [place] [address]- [address] Mar, [facility] [address] [facility] [id number], [place] [address] 6[address] Mar, [facility] [address] [id number] [address] Mar, [facility] [id number] [address] Mar, [facility] [id number] [address] Mar, [facility] [id number] [place] [address]- [address]66 Mar, [facility] [id number] [address] Feb, [facility] [id number] [place] [address]- 2005 Nov, [facility] [id number] [address]- [address] Aug, [facility] [id number], [place] [address]44 Apr, [facility] [id number], [place] [address]- 7896 Mar, [facility] [id number], [place] [address]- 4789 Apr, [facility] [id number], [place] [address]- 2597 Apr, [facility] [address], [place] [address]- [address]67 Sep, [facility] [id number], [place] [address]- [address] Mar, IMMUNIZATIONS No Known Immunizations SOCIAL HISTORY Never Assessed REASON FOR VISIT Earache Pt states she went swimming almost 2 weeks ago and since her R ear has been bothering her DEREK Castillo PLAN OF CARE Activity Details Future/Pending Procedure EAR LAVAGE VITAL SIGNS Height 63 in 2018-01-25 Weight 238.7 lbs 2018-01-25 Temperature 98.0 degrees Fahrenheit 2018-01-25 Heart Rate 88 bpm 2018-01-25 Respiratory Rate 20 2018-01-25 BMI 42.28 kg/m2 2018-01-25 Blood pressure systolic 120 mmHg 2018-01-25 Blood pressure diastolic 80 mmHg 2018-01-25 MEDICATIONS Medication Instructions Dosage Frequency Start Date End Date Duration Status Debrox 6.5 % Otic Twice a day 4 drops into affected ear 12h Jan, Jan, 05 days Active Pantoprazole Sodium 40 mg Orally Once a day 1 tablet 24h May, 90 days Active Mirtazapine 15 MG Orally Once a day 1 tablet at bedtime 24h Active Walker Jackson Wheels - with bench seat. DX: fibromyalgia, unsteady gait as directed Jan, Active Micardis 20 mg Orally Once a day 1 tablet by Oral route 1 time per day 24h Jun, 30 days Active Cymbalta 60 MG Orally Once a day 1 capsule 24h Active Glucocard Expression Monitor w/Device as directed Aug, Active Spironolactone 25 MG Orally Once a day 1 tablet with food 24h Nov, 90 days Active Crestor 10 mg Orally Once a day 1 tablet 24h Feb, 90 days Active MetFORMIN HCl ER 500 mg Orally twice a day 2 tablets 12h Jan, 90 days Active Albuterol Sulfate (2.5 MG/3ML) 0.083% Inhalation Three times a day 3 ml 8h Aug, Active Propranolol HCl 60 MG Orally Twice a day 1 tablet 12h October, 90 days Active Wheelchair 1 use as needed for acitivity assistance Nov, Active Lyrica 150 MG Orally 3 times a day 1 capsule 8h Mar, 90 days Active Reglan 10 mg Orally 2 times a day, prn nausea 1 tablet Dec, Active Proventil HFA 108 (90 Base) MCG/ACT Inhalation every 4 hrs 2 puffs as needed 4h Aug, Active Glucocard Expression Test - test blood sugar Aug, Active RESULTS No Results PROCEDURES Procedure Date Ordered Result Body Site EAR IRRIGATION Jan 25, 2018 INSTRUCTIONS MEDICATIONS ADMINISTERED No Known Medications [...]
--- OUTSIDE RECORDS SUMMARY | 2018-06-19 13:22 | XMS REPORT ---
Author Author ARISTEO ARAYA Organization [facility] Address [address] [place] [address] Care Team Providers Care Harp Repairer Name Role Phone ARISTEO ARAYA Unavailable PROBLEMS Type Condition ICD9-CM Code BUI02-CL Code Onset Dates Condition Status SNOMED Code Problem Non morbid obesity due to excess calories E66.09 Active 242198908 Problem Unsteady gait R26.81 Active 73670674 Problem Eosinophilic colitis K52.82 Active 20179250 Problem Acute right-sided low back pain with right-sided sciatica M54.41 Active 398895255 Problem Paresthesias in left hand R20.2 Active 982693280 Problem Non morbid obesity E66.9 Active 774938281 Problem Other chronic gastritis without hemorrhage K29.50 Active 8732750 Problem GERD with esophagitis K21.0 Active 798510895 Problem Sacral pain M53.3 Active 95066377 Problem Fibromyalgia M79.7 Active 737006591 Problem Other chronic pain G89.29 Active 39732337 Problem Bronchitis J40 Active 09412756 Problem Migraine without aura and without status migrainosus, not intractable G43.009 Active 816519657 Problem Hypertension, benign I10 Active 12536117 ALLERGIES Substance Reaction Event Type Date Status Singulair Unknown Drug Allergy Dec, Active Lisinopril Unknown Drug Allergy Dec, Active metals Unknown Non Drug Allergy Dec, Active ENCOUNTERS Encounter Location Date Diagnosis [facility] [id number] [address] Jan, Impacted cerumen of right ear H61.21 [id number] [place] [address] 89893- 1108 Jan, Bilious vomiting with nausea R11.14 ; BMI 40.0-44.9, adult Z68.41 ; Hypertension, benign I10 and Fibromyalgia M79.7 [place] [id number] [place] [address] 79701- 9570 Dec, Bilious vomiting with nausea R11.14 and Tachycardia R00.0 [place] [address] 54061- 7768 Nov, [place] [address] [place] [id number] [place] [address] 94441- 4008 Nov, BMI 40.0-44.9, adult Z68.41 ; Leg edema R60.0 and Hypertension, benign I10 [place] [address] 27273- 9587 Nov, [place] [address] 02969- 4176 October, Thoracic neuritis M54.14 [place] [address] [place] [id number] [place] [address] 40703- 3254 October, Acute right hip pain M25.551 [place] [address] [place] [id number] [place] [address] 71851- 9822 October, [place] [address] 72079- 4316 Sep, Hypertension, benign I10 and Acute right-sided low back pain with right-sided sciatica M54.41 [place] [address] [place] [id number] [place] [address] 37032- 2740 Sep, Fibromyalgia M79.7 and Hypertension, benign I10 [place] [address] [place] [id number] [place] [address] 14827- 1900 Aug, [place] [address] 78029- 9348 Aug, Fibromyalgia M79.7 ; Frequent headaches R51 and Non morbid obesity due to excess calories E66.09 [place] [address] [place] [id number] [place] [address] 50727- 1100 Jul, [place] [address] [place] [id number] [place] [address] 96559- 5186 Jul, Fibromyalgia M79.7 [place] [address] 91538- 7822 Jul, Viral gastroenteritis A08.4 and Paresthesias in left hand R20.[address] 06015- 7866 Jun, Non morbid obesity due to excess calories E66.09 [place] [address] 19879- 0111 Jun, [address] 37544- 9830 Jun, Fibromyalgia M79.7 [place] [address] 64989- 7463 May, Non morbid obesity due to excess calories E66.09 and Hypertension, benign I10 [place] [address] 03387- 1381 May, GERD with esophagitis K21.[address] 31236- 0756 Apr, BMI 40.0-44.9, adult Z68.41 and Non morbid obesity E66.[address] 04482- 6039 Mar, Unsteady gait R26.[address] 14219- 0845 Mar, Unsteady gait R26.81 ; Sacral pain M53.3 and Fibromyalgia M79.[address] 13249- 3953 Mar, Non morbid obesity due to excess calories E66.09 [place] [address] 62643- 7739 Feb, Abdominal pain, generalized R10.84 [place] [address] [place] [id number] [place] [address] 04560- 7977 18 Feb, 2017 Other chronic gastritis without hemorrhage K29.50 and H. pylori infection A04.8 [place] [address] [place] [id number] [place] [address] 61401- 7233 07 Feb, 2017 Back pain 724.5 ; Pain in left shoulder M25.512 ; Fibromyalgia M79.7 and Non morbid obesity due to excess calories E66.09 [place] [address] [place] [id number] [place] [address] 89509- 3549 07 Feb, 2017 BMI 40.0-44.9, adult Z68.41 [place] [address] [place] [id number] [place] [address] 71550- 1129 14 Jan, 2017 Dysuria R30.0 and Acute cystitis with hematuria N30.01 [place] [address] [place] [id number] [place] [address] 25049- 4254 Jan, Dysuria R30.0 [place] [address] [place] [id number] [place] [address] 77587- 8770 Dec, Fibromyalgia M79.7 [place] [address] [place] [id number] [place] [address] 75535- 5998 Dec, Screening for diabetes mellitus Z13.1 and Fibromyalgia M79.7 [place] [address] [place] [id number] [place] [address] 50809- 0251 Dec, Fibromyalgia M79.7 [place] [address] [place] [id number] [place] [address] 21328- 9771 Dec, [place] [address] [place] [id number] [place] [address] 21812- 0975 Dec, Fibromyalgia M79.7 [place] [id number] [place] [address] 17904- 6017 Nov, Foreign body in foot, left, initial encounter S90.852A [place] [address] [place] [id number] [place] [address] 99566- 1507 Nov, Viral gastroenteritis A08.4 [place] [address] 23005- 6264 Nov, Fall, initial encounter W19.XXXA ; Post-traumatic headache, unspecified, not intractable G44.309 ; Dizziness R42 ; Unsteady gait R26.81 ; Sacral pain M53.3 and Non morbid obesity due to excess calories E66.09 [place] [address] 11579- 8456 Nov, [place] [address] 66139- 1833 Nov, [place] [address] 24184- 1430 October, Non morbid obesity due to excess calories E66.09 and Hypertension, benign I10 [place] [address] 43155- 1019 October, Fibromyalgia M79.7 [place] [address] 40402- 1672 Sep, [place] [address] 94014- 3584 Sep, [place] [address] [place] [id number] [place] [address] 22682- 9134 Sep, Eosinophilic colitis K52.82 [place] [address] [place] [id number] [place] [address] 73072- 8820 Aug, Bronchitis J40 [place] [address] 26284- 0027 Aug, [place] [address] 05142- 7964 Aug, Pain in left shoulder M25.512 ; Bronchitis J40 ; Acute midline back pain, unspecified location M54.9 ; Migraine without aura and without status migrainosus, not intractable G43.009 ; Fibromyalgia M79.7 and Pain of upper abdomen R10.10 [facility] [address] [place] [id number] [place] [address] 21240- 9829 Aug, [facility] [address] 28653- 5784 Aug, [facility] [address] 19923- 8256 Jul, Other viral agents as the cause of diseases classified elsewhere B97.89 and Acute upper respiratory infection, unspecified J06.9 [place] [address] 51504- 4880 Jun, [facility] [address] 72343 -8803 Jun, [facility] [address] 01208- 3069 May, Abscess L02.91 [place] [address] 69332- 9030 May, Acute midline low back pain without sciatica M54.5 [facility] [address] [place] [id number] [place] [address] 98529 -1299 May, [place] [address] [place] [id number] [place] [address] 10940- 2910 Apr, [facility] [address] [place] [id number] [place] [address] 05484- 4421 Apr, Other chronic pain G89.29 ; Pain in right shoulder M25.511 and Pain in left shoulder M25.512 [facility] [address] 37418- 8913 16 Apr, 2016 [place] [address] [place] [id number] [place] [address] 24523- 7700 Apr, [facility] [address] 48398- 4549 10 Apr, 2016 Fibromyalgia M79.7 ; Other chronic pain G89.29 and Pain in left shoulder M25.512 [facility] [address] [id number] [place] [address] 15372- 9109 04 Apr, 2016 Bronchitis J40 [facility] [address] [place] [address] [id number] [place] [address] 45885- 9012 27 Mar, 2016 [facility] [id number] [place] [address] [id number] Mar, [facility] [address] [place] [id number] [place] [address] 96507- 2568 29 Feb, 2016 [facility] [address] [address] [id number] [place] [address] 32774- 7364 26 Feb, 2016 [facility] [address] [address] [id number] [place] [address] 16740- 8297 23 Feb, 2016 [facility] [address] [id number] [place] [address] 02829- 9305 22 Feb, 2016 [facility] [address] [id number] [place] [address] 79080- 2149 20 Feb, 2016 [facility] [address] [address] [id number] [place] [address] 63469- 1727 19 Feb, 2016 [facility] [address] [id number] [place] [address] 75212- 7986 19 Feb, 2016 Dysuria R30.0 [facility] [address] [id number] [place] [address] 92533- 6385 19 Feb, 2015 Dysuria R30.0 [facility] [address] [id number] [place] [address] 45471- 2989 16 Feb, 2016 [facility] [address] [address] [id number] [place] [address] 83548- 6759 15 Feb, 2016 Migraine, unspecified, not intractable, without status migrainosus G43.909 and Fibromyalgia M79.7 [facility] [address] [address] [id number] [place] [address] 66626- 3543 Feb, Migraine without aura and without status migrainosus, not intractable G43.009 [facility] [address] [address] [id number] [place] [address] 08469- 6954 Jan, [facility] [address] [place] [id number] [place] [address] 27504- 4644 Jan, [facility] [address] 26143- 1165 Jan, [facility] [address] 52676- 8265 Jan, [facility] [address] 57095- 8918 Jan, Unsteady gait R26.81 ; Fibromyalgia M79.7 and Family history of rheumatoid arthritis Z82.61 [place] [address] 18149- 7388 Dec, [facility] [address] 03088- 1208 Dec, [facility] [address] 20805- 4230 Nov, Pain in left shoulder M25.512 [facility] [address] [place] [id number] [place] [address] 53316- 3974 October, Viral gastroenteritis A08.4 [facility] [address] [place] [id number] [place] [address] 19587 -2025 October, Pain of upper abdomen R10.10 [facility] [address] 42019- 9096 October, Acute midline back pain, unspecified location M54.9 [facility] [address] [place] [id number] [place] [address] 34975- 5621 Aug, Elbow pain, right M25.521 [place] [address] [place] [address]- 2643 Aug, Elbow pain, right M25.521 [facility] [address] 68639- 6761 Aug, Pain of right upper extremity M79.601 [facility] [address] [place] [id number] [place] [address] 36862- 0054 Jun, Lumbar neuritis M54.16 [facility] [address] 77096- 9010 May, [facility] [address] 49616- 1026 Apr, Non morbid obesity due to excess calories E66.09 [place] [address] 99860- 8968 Apr, Non morbid obesity due to excess calories E66.09 and Thoracic neuritis M54.14 [facility] [address] 09186- 6717 Apr, Elbow pain, right M25.521 [facility] [address] 98989- 6990 Mar, Right elbow pain M25.521 [facility] [address] [place] [id number] [place] [address] 80335- 0839 Mar, [facility] [address] 28479- 0821 30 Feb, 2015 Urinary tract infection, site not specified 599.0 [facility] [address] [place] [id number] [place] [address] 82424- 5131 Feb, [facility] [address] 51824- 9629 Jan, Spider bite 989.5 [facility] [address] [place] [id number] [place] [address] 67226- 4429 Jan, Spider bite 989.5 [place] [id number] [address]- 2320 Jan, Spider bite 989.5 [facility] [address] [address] [id number] [place] [address] 97403- 3116 10 Nov, 2014 Back pain 724.5 and Diabetes 250.00 [facility] [address] [place] [id number] [place] [address] 44783- 2606 Nov, Back pain 724.5 and Muscle spasm of back 724.8 [facility] [address] [id number] [place] [address] 83761- 4393 Nov, Alternating constipation and diarrhea 787.99 [facility] [id number] [place] [address] 55343- 8262 October, Back pain 724.5 and Hip pain 719.45 [facility] [id number] [place] [address] 65956- 0551 Sep, [facility] [id number] [place] [address] 56386- 8175 Sep, [facility] [id number] [place] [address] 60286- 2890 Aug, [facility] [id number] [place] [address] 49731- 0151 Aug, [facility] [id number] [place] [address] 54503- 1071 Aug, [facility] [id number] [place] [address] 19606- 2542 Aug, [facility] [id number] [place] [address] 50149- 3365 Aug, [facility] [id number] [place] [address] 832135- 7596 Aug, [facility] [id number] [place] [address] 828867- 3272 Jul, [facility] [place] [facility] [address] [id number] [place] [address]- 3218 Jul, [facility] [place] [facility] [address] [id number] [place] [address]- 2100 Jun, [facility] [place] [facility] [address] [id number] [place] [address]- 9161 Jun, [facility] [place] [facility] [address] [id number] [place] [address]- 2231 Jun, [facility] [place] [facility] [address] [id number] [place] [address]- 8683 Jun, [facility] [place] [facility] [address] [id number] [place] [address]- 4461 Jun, [facility] [place] [facility] [address] [id number] [place] [address]- 9712 Jun, [facility] [place] [facility] [address] [id number] [place] [address]- 3076 Jun, [facility] [place] [facility] [address] [id number] [place] [address]- 3128 May, [facility] [place] [facility] [address] [id number] [place] [address]- 1331 May, [facility] [place] [facility] [address] [id number] [place] [address]- 0098 May, [facility] [place] [facility] [address] [id number] [place] [address]- 3904 May, [facility] [place] [facility] [address] [id number] [place] [address]- 6987 Apr, [facility] [place] [facility] [address] [id number] [place] [address]- 6606 Apr, [facility] [place] [facility] [address] [id number] [place] [address]- 6001 29 Mar, 2014 [facility] [place] [facility] [address] [id number] [place] [address]- 0011 Mar, [facility] [place] [facility] [address] [id number] [place] [address]- 0021 Mar, [facility] [place] [facility] [address] [id number] [place] [address]- 0558 Mar, [facility] [place] [facility] [address] [id number] [place] [address]- 8614 Mar, [facility] [place] [facility] [address] [id number] [place] [address]- 3950 Mar, [facility] [place] [facility] [address] [id number] [place] [address]- 6707 Mar, [facility] [place] [facility] [address] [id number] [place] [address]- 2481 Mar, [facility] [place] [facility] [address] [id number] [place] [address]- 5993 Mar, [facility] [place] [facility] [address] [id number] [place] [address]- 7551 Mar, [facility] [place] [facility] [address] [id number] [place] [address]- 8612 Feb, [facility] [place] [facility] [address] [id number] [place] [address]- 5119 Feb, [facility] [place] [facility] [address] [id number] [place] [address]- 0501 Jan, [facility] [place] [facility] [address] [id number] [place] [address]- 0927 Jan, [facility] [place] [facility] [address] [id number] [place] [address]- 7414 Jan, [facility] [place] [facility] [address] [id number] [place] [address]- 9021 Jan, [facility] [place] [facility] [address] [id number] [place] [address]- 9377 Jan, [facility] [place] [facility] [address] [id number] [place] [address]- 2023 Jan, [facility] [place] [facility] [address] [id number] [place] [address]- 4458 Jan, [facility] [place] [facility] [address] [id number] [place] [address]- 3290 Jan, [facility] [place] [facility] [address] [id number] [place] [address]- 1878 Jan, [facility] [place] [facility] [address] [id number] [place] [address]- 1276 Jan, [facility] [place] [facility] [address] [id number] [place] [address]- 0430 Dec, [facility] [place] [facility] [address] [id number] [place] [address]- 5297 Dec, [facility] [place] [facility] [address] [id number] [place] [address]- 2363 Dec, [facility] [place] [facility] [address] [id number] [place] [address]- 7910 Dec, [facility] [place] [facility] [address] [id number] [place] [address]- 2911 Nov, [facility] [place] [facility] [address] [id number] [place] [address]- 9543 Nov, [facility] [place] [facility] [address] [id number] [place] [address]- 7966 Nov, [facility] [place] [facility] [address] [id number] [place] [address]- 8552 Nov, [facility] [place] [facility] [address] [id number] [place] [address]- 7727 October, [facility] [place] [facility] [address] [id number] [place] [address]- 9926 October, [facility] [place] [facility] [address] [id number] [place] 7550 Sep, [facility] [place] [facility] [address] [id number] [place] [address]- 1592 Sep, [facility] [place] [facility] [address] [id number] [place] [address]- 5201 Sep, [facility] [place] [facility] [address] [id number] [place] [address]- 9594 Sep, [facility] [place] [facility] [address] [id number] [place] [address]- 6240 Sep, [facility] [place] [facility] [address] [id number] [place] [address]- 4423 Sep, [facility] [place] [facility] [address] [id number] [place] [address]- 2440 Sep, [facility] [place] [facility] [address] [id number] [place] [address]- 2935 Sep, [facility] [place] [facility] [address] [id number] [place] [address]- 3199 Sep, [facility] [place] [facility] [address] [id number] [place] [address]- 8254 Sep, [facility] [place] [facility] [address] [id number] [place] [address]- 9039 Jul, [facility] [place] [facility] [address] [id number] [place] [address]- 0946 Jul, [facility] [place] [facility] [address] [id number] [place] [address]- 3249 Jul, [facility] [place] [facility] [address] [id number] [place] [address]- 4759 Jul, [facility] [place] [facility] [address] [id number] [place] [address]- 2437 Jun, [facility] [place] [facility] [address] [id number] [place] [address]- 3930 Jun, [facility] [place] [facility] [address] [id number] [place] [address]- 5524 15 Jun, 2013 [facility] [address] [id number] [place] [address]- 8070 15 Jun, 2013 [facility] [place] [facility] [address] [id number] [place] [address]- 4374 14 Jun, 2013 [facility] [address] [id number] [place] [address]- 7236 14 Jun, 2013 [facility] [place] [facility] [address] [id number] [place] [address] Apr, [facility] [place] [facility] [address] [id number] [place] [address] Apr, [facility] [place] [facility] [address] [id number] [place] [address] Apr, [facility] [place] [facility] [address] [id number] [place] [address] Apr, [facility] [place] [facility] [address] [id number] [place] [address] Apr, [facility] [place] [facility] [address] [id number] [place] [address] Apr, [facility] [place] [facility] [address] [facility] [id number] [place] [address] Apr, [facility] [place] [facility] [address] [id number] [place] [address] Apr, [facility] [place] [facility] [address] [id number] [address] Mar, [facility] [place] [facility] [address] [id number] [place] [address] Mar, [facility] [place] [facility] [address] [id number] [place] [address] Feb, [facility] [place] [facility] [address] [id number] [place] [address] Feb, [facility] [place] [facility] [address] [id number] [place] [address] Dec, [facility] [address] [id number] [place] [address] Dec, [facility] [address] [id number] [place] [address] Dec, [facility] [address] [id number] [place] [address]- [address] Dec, [facility] [address] [id number] [place] [address]- [address] Dec, [facility] [address] [id number] [place] [address]- [address] Dec, [facility] [address] [id number] [place] [address] Dec, [facility] [address] [id number] [place] [address] Nov, [facility] [address] [id number] [place] [address] Nov, [facility] [address] [id number] [place] [address]- [address] Nov, [facility] [address] [id number] [place] [address] Nov, [facility] [address] [id number] [place] [address]- [address] October, [facility] [address] [id number] [place] [address] October, [facility] [place] [facility] [address] [id number] [place] [address] October, [facility] [place] [facility] [address] [id number] [place] [address] October, [facility] [address] [id number] [place] [address] 03 Sep, 2012 [facility] [address] [id number] [place] [address] 30 Aug, 2012 [facility] [place] [facility] [address] [id number] [place] [address] 29 Aug, 2012 [facility] [place] [facility] [address] [facility] [id number] [place] [address]- [address] Aug, [facility] [place] [facility] [address] [id number] [place] [address] 21 Aug, 2012 [facility] [place] [facility] [address] [id number] [place] [address] Aug, [facility] [place] [facility] [address] [facility] [id number] [place] [address] 27 Jul, 2012 [facility] [place] [facility] [address] [facility] [id number] [place] [address]- [address] 27 Jul, 2012 [facility] [place] [facility] [address] [facility] [id number] [place] [address]- [address] 26 Jul, 2012 [facility] [place] [facility] [address] [facility] [id number] [place] [address]- [address] 25 Jul, 2012 [facility] [place] [facility] [address] [facility] [id number] [place] [address]- [address] 25 Jul, 2012 [facility] [place] [facility] [address] [facility] [id number] [place] [address] 23 Jul, 2012 [facility] [place] [facility] [address] [facility] [id number] [place] [address]44 20 Jul, 2012 [facility] [place] [facility] [address] [facility] [id number] [place] [address] 15 Jul, 2012 [facility] [place] [facility] [address] [facility] [id number] [place] [address]45 14 Jul, 2012 [facility] [place] [facility] [address] [facility] [id number] [address] Jul, [facility] [place] [facility] [address] [id number] [place] [address] Jun, [facility] [place] [facility] [address] [id number] [place] [address] Jun, [facility] [place] [facility] [address] [id number] [place] [address] Jun, [facility] [place] [facility] [address] [id number] [place] [address] 4648 May, [facility] [place] [facility] [address] [id number] [place] [address] May, [facility] [place] [facility] [address] [id number] [place] [address]- 7662 Apr, [facility] [place] [facility] [address] [id number] [place] [address]- 6675 Apr, [facility] [place] [facility] [address] [id number] [place] [address] 37[address] Apr, [facility] [place] [facility] [address] [id number] [place] [address] 3105 Apr, [facility] [place] [facility] [address] [id number] [place] [address]- 8505 Apr, [facility] [place] [facility] [address] [id number] [place] [address]- 7762 Apr, [facility] [place] [facility] [address] [id number], [place] [address] Apr, [facility] [place] [facility] [address] [id number] [place] [address] 33[address] Apr, [facility] [place] [facility] [address] [id number] [place] [address] 8686 Mar, [facility] [place] [facility] [address] [id number] [address] Mar, [facility] [place] [facility] [address] [id number], [place] [address] Mar, [facility] [place] [facility] [address] [id number] [place] [address]- 9205 Mar, [facility] [place] [facility] [address] [id number] [place] [address]- 3999 Mar, [facility] [place] [facility] [address] [id number] [place] [address]- 8885 Mar, [facility] [place] [facility] [address] [id number] [place] [address] 4800 Mar, [facility] [place] [facility] [address] [id number] [place] [address] Mar, [facility] [place] [facility] [address] [id number] [place] [address] Mar, [facility] [place] [facility] [address] [id number] [place] [address] 3935 Feb, [facility] [place] [facility] [address] [id number] [place] [address]- 3346 Jan, [facility] [place] [facility] [address] [id number] [place] [address]- 2342 Jan, [facility] [place] [facility] [address] [id number] [place] [address] Jan, [facility] [place] [facility] [address] [id number] [place] [address]- 6670 Dec, [facility] [place] [facility] [address] [id number] [place] [address]- 5748 Dec, [facility] [place] [facility] [address] [id number] [place] [address]- 6440 Dec, [facility] [place] [facility] [address] [id number] [place] [address] 5472 Nov, [facility] [place] [facility] [address] [id number] [place] [address] 3541 October, [facility] [place] [facility] [address] [id number] [place] [address] 3210 October, [facility] [address] [id number] [place] [address] October, [facility] [place] [facility] [address] [id number] [place] [address]- 5596 October, [facility] [address] [id number] [place] [address] 4479 October, [facility] [address] [id number] [place] [address] 30 Sep, 2011 [facility] [address] [id number] [place] [address]- 3896 Sep, [facility] [address] [id number] [place] [address] 7301 Sep, [facility] [address] [id number] [place] [address]- 5845 Sep, [facility] [address] [id number] [place] [address]- 5126 Sep, [facility] [address] [id number] [place] [address]- 5693 Sep, [facility] [address] [id number] [place] [address]- 4910 Sep, [facility] [place] [facility] [address] [id number] [place] [address] 4119 Aug, [facility] [place] [facility] [address] [id number] [place] [address]- 9428 Aug, [facility] [place] [facility] [address] [id number] [place] [address]- 5565 Aug, [facility] [place] [facility] [address] [id number] [place] [address]- 8257 Aug, [facility] [place] [facility] [address] [id number] [place] [address] 6414 Aug, [facility] [place] [facility] [address] [id number] [place] [address]- 5254 19 Aug, 2011 [facility] [place] [facility] [address] [id number] [place] [address]- 9736 16 Aug, 2011 [facility] [place] [facility] [address] [id number] [place] [address]- 8556 15 Aug, 2011 [facility] [place] [facility] [address] [id number] [place] [address]- 4142 15 Aug, 2011 [facility] [place] [facility] [address] [id number] [place] [address]- 3156 14 Aug, 2011 [facility] [place] [facility] [address] [id number] [place] [address]- 8017 12 Aug, 2011 [facility] [place] [facility] [address] [facility] [id number] [place] [address]- 5718 08 Aug, 2011 [facility] [place] [facility] [address] [id number] [place] [address]- 4928 15 Jul, 2011 [facility] [place] [facility] [address] [id number] [place] [address]- 4980 15 Jul, 2011 [facility] [place] [facility] [address] [id number] [place] [address]- 8015 14 Jul, 2011 [facility] [place] [facility] [address] [id number] [place] [address]- 3136 06 Jul, 2011 [facility] [place] [facility] [address] [id number] [place] [address]- 2013 02 Jul, 2011 [facility] [place] [facility] [address] [id number] [place] [address]- 9896 Jun, [facility] [place] [facility] [address] [id number] [place] [address]- 2766 04 Jun, 2011 [facility] [place] [facility] [address] [id number] [place] [address]- 0376 Jun, [facility] [place] [facility] [address] [id number] [place] [address]- 3193 29 May, 2011 [facility] [address] [id number] [place] [address]- 4284 21 May, 2011 [facility] [place] [facility] [address] [id number] [place] [address]- 0389 19 May, 2011 [facility] [address] [id number] [place] [address]- 2988 19 May, 2011 [facility] [place] [facility] [address] [id number] [place] [address]- 7747 14 May, 2011 [facility] [address] [id number] [place] [address]- 9327 16 Apr, 2011 [facility] [place] [facility] [address] [id number] [place] [address]- 3459 16 Apr, 2011 [facility] [place] [facility] [address] [id number] [place] [address]- 5533 15 Apr, 2011 [facility] [address] [id number] [place] [address]- 5261 14 Apr, 2011 [facility] [place] [facility] [address] [facility] [id number] [place] [address]- 9449 25 Mar, 2011 [facility] [address] [id number] [place] [address]- 5584 24 Mar, 2011 [facility] [place] [facility] [address] [id number] [place] [address]- 0735 19 Mar, 2011 [facility] [place] [facility] [address] [id number] [place] [address]- 6232 19 Mar, 2011 [facility] [place] [facility] [address] [id number] [place] [address]18 17 Mar, 2011 [facility] [place] [facility] [address] [id number] [place] [address]- 0239 17 Mar, 2011 [facility] [place] [facility] [address] [id number] [place] [address] 16 Feb, 2011 [facility] [address] [facility] [id number], [place] [address]- [address] Nov, [facility] [address] [id number], [place] [address]46 Aug, [facility] [address] [id number], [place] [address]- 25[address] Apr, [facility] [id number], [place] [address]- 2546 Mar, [facility] [address] [id number], [place] [address]- 9126 Apr, [facility] [id number], [place] [address]- 2546 Apr, [facility] [id number], [place] [address]- 9486 Sep, [facility] [address] [id number], [place] [address]- 2546 Mar, IMMUNIZATIONS No Known Immunizations SOCIAL HISTORY Never Assessed REASON FOR VISIT Stomach ache, vomiting since December 09-Henry REED PLAN OF CARE VITAL SIGNS Height 63 in 2017-12-14 Weight 228.8 lbs 2017-12-14 Temperature 98.4 degrees Fahrenheit 2017-12-14 Heart Rate 117 bpm 2017-12-14 Respiratory Rate 20 2017-12-14 Oximetry 96 % 2017-12-14 BMI 40.53 kg/m2 2017-12-14 Blood pressure systolic 124 mmHg 2017-12-14 Blood pressure diastolic 82 mmHg 2017-12-14 MEDICATIONS Medication Instructions Dosage Frequency Start Date End Date Duration Status Propranolol HCl 60 MG Orally Twice a day 1 tablet 12h October, 90 days Active Cymbalta 60 MG Orally Once a day 1 capsule 24h Active Pantoprazole Sodium 40 mg Orally Once a day 1 tablet 24h May, 90 days Active Metformin HCl 500 MG Orally Twice a day 2 tablets 12h 10 Nov, 2014 Active Glucocard Expression Test - test blood sugar Aug, Active Albuterol Sulfate (2.5 MG/3ML) 0.083% Inhalation Three times a day 3 ml 8h Aug, Active Wheelchair 1 use as needed for acitivity assistance Nov, Active Spironolactone 25 MG Orally Once a day 1 tablet with food 24h Nov, Mar, 30 day(s) Active Lyrica 150 MG Orally 3 times a day 1 capsule 8h Mar, 90 days Active Micardis 20 MG Orally Once a day 1 tablet by Oral route 1 time per day 24h Jun, 90 days Active Glucocard Expression Monitor w/Device as directed Aug, Active Crestor 10 mg Orally Once a day 1 tablet 24h Feb, Active Reglan 10 mg Orally 2 times a day, prn nausea 1 tablet Dec, Active Proventil HFA 108 (90 Base) MCG/ACT Inhalation every 4 hrs 2 puffs as needed 4h Aug, Active Mirtazapine 15 MG Orally Once a day 1 tablet at bedtime 24h Active [place] [employer] - with bench seat. DX: fibromyalgia, [...]
--- OUTSIDE RECORDS SUMMARY | 2018-06-19 13:22 | XMS REPORT ---
Author Author AIRSTEO ARAYA Organization [facility] Address [address] [place] [address] Care Team Providers Care Chief Development Officer Name Role Phone ARISTEO ARAYA Unavailable PROBLEMS Type Condition ICD9-CM Code DZA30-MR Code Onset Dates Condition Status SNOMED Code Problem Non morbid obesity due to excess calories E66.09 Active 907344965 Problem Unsteady gait R26.81 Active 99256034 Problem Eosinophilic colitis K52.82 Active 38725040 Problem Acute right-sided low back pain with right-sided sciatica M54.41 Active 666104745 Problem Paresthesias in left hand R20.2 Active 981166263 Problem Non morbid obesity E66.9 Active 792540438 Problem Other chronic gastritis without hemorrhage K29.50 Active 4113977 Problem GERD with esophagitis K21.0 Active 119889721 Problem Sacral pain M53.3 Active 50270331 Problem Fibromyalgia M79.7 Active 772043926 Problem Other chronic pain G89.29 Active 45492989 Problem Bronchitis J40 Active 71163393 Problem Migraine without aura and without status migrainosus, not intractable G43.009 Active 586919547 Problem Hypertension, benign I10 Active 67896850 ALLERGIES No Information ENCOUNTERS Encounter Location Date Diagnosis [place] [id number] [place] [address] 40894- 0827 Jan, [place] [id number] [place] [address] 75090- 4354 Jan, Impacted cerumen of right ear H61.21 [place] [address] [place] [id number] [place] [address] 16399- 0757 Jan, Bilious vomiting with nausea R11.14 ; BMI 40.0-44.9, adult Z68.41 ; Hypertension, benign I10 and Fibromyalgia M79.7 [place] [address] 57361- 2469 Dec, Bilious vomiting with nausea R11.14 and Tachycardia R00.0 [place] [address] 23479- 7616 Nov, [place] [address] 78135- 9278 Nov, BMI 40.0-44.9, adult Z68.41 ; Leg edema R60.0 and Hypertension, benign I10 [place] [address] 61260- 8589 Nov, [place] [address] 09583- 9345 October, Thoracic neuritis M54.14 [place] [address] 81618- 9095 October, Acute right hip pain M25.551 [place] [address] 97008- 0100 October, [place] [address] 34433- 4832 Sep, Hypertension, benign I10 and Acute right-sided low back pain with right-sided sciatica M54.41 [place] [address] 10384- 6544 Sep, Fibromyalgia M79.7 and Hypertension, benign I10 [place] [address] 79676- 1658 Aug, [place] [address] 58337- 9281 Aug, Fibromyalgia M79.7 ; Frequent headaches R51 and Non morbid obesity due to excess calories E66.09 [place] [address] 32401- 3716 Jul, [place] [address] [place] [address]- 6220 Jul, Fibromyalgia M79.7 [place] [address] 50301- 9665 Jul, Viral gastroenteritis A08.4 and Paresthesias in left hand R20.2 [place] [address] 00204- 9227 Jun, Non morbid obesity due to excess calories E66.09 [place] [address] 16369- 4626 Jun, [address] 11380- 9346 Jun, Fibromyalgia M79.7 [place] [address] 30877- 1475 May, Non morbid obesity due to excess calories E66.09 and Hypertension, benign I10 [place] [address] 22465- 6490 May, GERD with esophagitis K21.[address] 96071- 4068 Apr, BMI 40.0-44.9, adult Z68.41 and Non morbid obesity E66.[address] 58700- 7399 Mar, Unsteady gait R26.81 [place] [address] 98137- 8429 Mar, Unsteady gait R26.81 ; Sacral pain M53.3 and Fibromyalgia M79.[address] 47499- 3608 Mar, Non morbid obesity due to excess calories E66.09 [place] [address] 01628- 6139 Feb, Abdominal pain, generalized R10.84 [place] [address] [place] [id number] [place] [address] 82152- 6885 18 Feb, 2017 Other chronic gastritis without hemorrhage K29.50 and H. pylori infection A04.8 [place] [address] [place] [id number] [place] [address] 77074- 6338 07 Feb, 2017 Back pain 724.5 ; Pain in left shoulder M25.512 ; Fibromyalgia M79.7 and Non morbid obesity due to excess calories E66.09 [place] [address] 23963- 4929 07 Feb, 2017 BMI 40.0-44.9, adult Z68.41 [place] [address] 16105- 0959 14 Jan, 2017 Dysuria R30.0 and Acute cystitis with hematuria N30.01 [place] [address] 25857- 0782 Jan, Dysuria R30.0 [place] [address] 31791- 4040 Dec, Fibromyalgia M79.7 [place] [address] 55563- 6998 Dec, Screening for diabetes mellitus Z13.1 and Fibromyalgia M79.7 [place] [address] 62973- 2046 Dec, Fibromyalgia M79.7 [place] [address] 38119- 4203 Dec, [place] [address] 08637- 2907 Dec, Fibromyalgia M79.7 [place] [address] 66577- 6147 Nov, Foreign body in foot, left, initial encounter S90.852A [place] [address] 89574- 9703 Nov, Viral gastroenteritis A08.4 [place] [address] 23674- 6510 Nov, Fall, initial encounter W19.XXXA ; Post-traumatic headache, unspecified, not intractable G44.309 ; Dizziness R42 ; Unsteady gait R26.81 ; Sacral pain M53.3 and Non morbid obesity due to excess calories E66.09 [place] [address] 65189- 2290 Nov, [place] [address] 29282- 2864 Nov, [place] [address] 45244- 7236 October, Non morbid obesity due to excess calories E66.09 and Hypertension, benign I10 [place] [address] 52092- 5615 October, Fibromyalgia M79.7 [place] [address] 82049- 2945 Sep, [place] [address] 45785- 4334 Sep, [place] [address] 85677- 0340 Sep, Eosinophilic colitis K52.82 [place] [address] 26706- 2887 Aug, Bronchitis J40 [place] [address] 82336- 3500 Aug, [place] [address] 16771- 0069 Aug, Pain in left shoulder M25.512 ; Bronchitis J40 ; Acute midline back pain, unspecified location M54.9 ; Migraine without aura and without status migrainosus, not intractable G43.009 ; Fibromyalgia M79.7 and Pain of upper abdomen R10.10 [facility] [address] [place] [id number] [place] [address] 79088- 1652 Aug, [facility] [address] [place] [id number] [place] [address] 12805- 2281 Aug, [facility] [address] [place] [id number] [place] [address] 87554- 6677 Jul, Other viral agents as the cause of diseases classified elsewhere B97.89 and Acute upper respiratory infection, unspecified J06.9 [place] [address] [place] [id number] [place] [address] 56793- 2281 Jun, [facility] [address] [place] [id number] [place] [address] 88175 -6387 Jun, [place] [address] [place] [id number] [place] [address] 34822- 4368 May, Abscess L02.91 [place] [address] 79345- 6357 May, Acute midline low back pain without sciatica M54.5 [facility] [address] [place] [id number] [place] [address] 76527 -1595 May, [place] [address] [place] [id number] [place] [address] 81858- 8537 Apr, [place] [address] [place] [id number] [place] [address] 27852- 3755 Apr, Other chronic pain G89.29 ; Pain in right shoulder M25.511 and Pain in left shoulder M25.512 [place] [address] [place] [id number] [place] [address] 65400- 6701 16 Apr, 2016 [place] [address] [place] [id number] [place] [address] 29717- 0715 Apr, [place] [address] 22467- 7890 Apr, 2016 Fibromyalgia M79.7 ; Other chronic pain G89.29 and Pain in left shoulder M25.512 [facility] [address] [place] [id number] [place] [address] 11963- 3917 04 Apr, 2016 Bronchitis J40 [facility] [address] [place] [id number] [place] [address] 39135- 0866 27 Mar, 2016 [facility] [address] [place] [id number] [place] [address] [id number] Mar, [facility] [address] [place] [id number] [place] [address] 90275- 7813 29 Feb, 2015 [facility] [address] [place] [id number] [place] [address] 51942- 7809 26 Feb, 2016 [facility] [address] [place] [id number] [place] [address] 58679- 0680 23 Feb, 2016 [facility] [address] [place] [id number] [place] [address] 72150- 1997 22 Feb, 2015 [facility] [address] [place] [id number] [place] [address] 95362- 7327 20 Feb, 2015 [facility] [address] [place] [id number] [place] [address] 64137- 1581 19 Feb, 2015 [facility] [address] [place] [id number] [place] [address] 08522- 8159 19 Feb, 2016 Dysuria R30.0 [facility] [address] [place] [id number] [place] [address] 66812- 7533 19 Feb, 2015 Dysuria R30.0 [facility] [address] [place] [id number] [place] [address] 29999- 0330 16 Feb, 2016 [facility] [address] [place] [id number] [place] [address] 28095- 4376 15 Feb, 2016 Migraine, unspecified, not intractable, without status migrainosus G43.909 and Fibromyalgia M79.7 [facility] [address] [place] [id number] [place] [address] 87009- 9270 Feb, Migraine without aura and without status migrainosus, not intractable G43.009 [facility] [address] [place] [id number] [place] [address] 13475- 7101 Jan, [facility] [address] [place] [id number] [place] [address] 04577- 6619 Jan, [facility] [address] [place] [id number] [place] [address] 27957- 8193 Jan, [facility] [address] [place] [id number] [place] [address] 87814- 4935 Jan, [facility] [address] 99146- 7237 Jan, Unsteady gait R26.81 ; Fibromyalgia M79.7 and Family history of rheumatoid arthritis Z82.61 [place] [address] 13792- 9130 Dec, [facility] [address] [place] [id number] [place] [address] 97851- 8269 Dec, [facility] [address] [place] [id number] [place] [address] 32880- 3298 Nov, Pain in left shoulder M25.512 [facility] [address] [place] [id number] [place] [address] 14144- 7319 October, Viral gastroenteritis A08.4 [facility] [address] [place] [id number] [place] [address] 09686 -3394 October, Pain of upper abdomen R10.10 [facility] [address] [place] [id number] [place] [address] 91245- 7894 October, Acute midline back pain, unspecified location M54.9 [facility] [address] [place] [id number] [place] [address] 47699- 4335 Aug, Elbow pain, right M25.521 [place] [address] 42317- 9272 Aug, Elbow pain, right M25.521 [facility] [address] [place] [id number] [place] [address] 85181- 7699 Aug, Pain of right upper extremity M79.601 [facility] [address] [place] [id number] [place] [address] 27238- 1649 Jun, Lumbar neuritis M54.16 [facility] [address] 21240- 8323 May, [facility] [address] [place] [id number] [place] [address] 08490- 7818 Apr, Non morbid obesity due to excess calories E66.09 [facility] [address] [place] [id number] [place] [address] 06376- 9255 Apr, Non morbid obesity due to excess calories E66.09 and Thoracic neuritis M54.14 [facility] [address] [place] [id number] [place] [address] 84830- 2458 Apr, Elbow pain, right M25.521 [facility] [address] [place] [id number] [place] [address] 71031- 7714 Mar, Right elbow pain M25.521 [facility] [address] [place] [id number] [place] [address] 62154- 3606 Mar, [facility] [address] [place] [id number] [place] [address] 59452- 7484 Feb, Urinary tract infection, site not specified 599.0 [facility] [address] [place] [id number] [place] [address] 58929- 3655 Feb, [facility] [address] [place] [id number] [place] [address] 40067- 3980 Jan, Spider bite 989.5 [facility] [address] [place] [id number] [place] [address] 62589- 8169 Jan, Spider bite 989.5 [facility] [address] [place] [id number] [place] [address] 78960- 8404 Jan, Spider bite 989.5 [facility] [address] 07740- 9193 10 Nov, 2014 Back pain 724.5 and Diabetes 250.00 [facility] [address] [place] [id number] [place] [address] 71956- 0267 Nov, Back pain 724.5 and Muscle spasm of back 724.8 [facility] [address] [place] [id number] [place] [address] 46003- 7246 Nov, Alternating constipation and diarrhea 787.99 [facility] [address] [place] [id number] [place] [address] 85452- 0597 October, Back pain 724.5 and Hip pain 719.45 [facility] [address] [place] [id number] [place] [address] 66890- 0051 Sep, [facility] [address] [place] [id number] [place] [address] 69898- 3245 Sep, [facility] [address] [place] [id number] [place] [address] 37935- 4088 Aug, [facility] [address] [place] [id number] [place] [address] 36525- 2820 Aug, [facility] [address] [place] [id number] [place] [address] 56391- 0843 Aug, [facility] [address] [place] [id number] [place] [address] 89122- 7519 Aug, [facility] [address] [place] [id number] [place] [address] 83389- 2593 Aug, [facility] [address] [place] [id number] [place] [address] 110144- 1609 Aug, [facility] [address] [place] [id number] [place] [address] 401075- 2331 Jul, [facility] [address] [facility] [id number] [place] [address]- 3978 Jul, [facility] [place] [facility] [address] [id number] [place] [address]- 5350 Jun, [facility] [place] [facility] [address] [id number] [place] [address]- 3858 Jun, [facility] [place] [facility] [address] [id number] [place] [address]- 6593 Jun, [facility] [place] [facility] [address] [id number] [place] [address]- 7938 Jun, [facility] [place] [facility] [address] [id number] [place] [address]- 6019 Jun, [facility] [place] [facility] [address] [id number] [place] [address]- 2690 Jun, [facility] [place] [facility] [address] [id number] [place] [address]- 8146 Jun, [facility] [place] [facility] [address] [id number] [place] [address]- 0576 May, [facility] [place] [facility] [address] [id number] [place] [address]- 1496 May, [facility] [place] [facility] [address] [id number] [place] [address]- 9680 May, [facility] [place] [facility] [address] [id number] [place] [address]- 7356 May, [facility] [place] [facility] [address] [id number] [place] [address]- 1592 Apr, [facility] [place] [facility] [address] [id number] [place] [address]- 3684 Apr, [facility] [place] [facility] [address] [id number] [place] [address]- 2607 Mar, [facility] [place] [facility] [address] [id number] [place] [address]- 0237 Mar, [facility] [place] [facility] [address] [id number] [place] [address]- 4410 Mar, [facility] [place] [facility] [address] [id number] [place] [address]- 1736 Mar, [facility] [place] [facility] [address] [id number] [place] [address]- 9794 Mar, [facility] [place] [facility] [address] [id number] [place] [address]- 4975 Mar, [facility] [place] [facility] [address] [id number] [place] [address]- 9861 Mar, [facility] [place] [facility] [address] [id number] [place] [address]- 4558 Mar, [facility] [place] [facility] [address] [id number] [place] [address]- 8536 Mar, [facility] [place] [facility] [address] [id number] [place] [address]- 4187 Mar, [facility] [place] [facility] [address] [id number] [place] [address]- 3443 Feb, [facility] [place] [facility] [address] [id number] [place] [address]- 7027 Feb, [facility] [place] [facility] [address] [id number] [place] [address]- 3344 Jan, [facility] [place] [facility] [address] [id number], [place] [address]- 1877 Jan, [facility] [place] [facility] [address] [id number] [place] [address]- 3858 Jan, [facility] [place] [facility] [address] [id number] [place] [address]- 4081 Jan, [facility] [place] [facility] [address] [id number] [place] [address]- 3562 Jan, [facility] [place] [facility] [address] [id number] [place] [address]- 8425 Jan, [facility] [place] [facility] [address] [id number] [place] [address]- 1389 Jan, [facility] [place] [facility] [address] [id number] [place] 6017 Jan, [facility] [place] [facility] [address] [id number] [place] [address]- 8625 Jan, [facility] [place] [facility] [address] [id number] [place] [address]- 7492 Jan, [facility] [place] [facility] [address] [id number] [place] [address]- 5500 Dec, [facility] [place] [facility] [address] [id number] [place] [address]- 2689 Dec, [facility] [place] [facility] [address] [id number] [place] [address]- 9980 Dec, [facility] [place] [facility] [address] [id number] [place] [address]- 9404 Dec, [facility] [place] [facility] [address] [id number] [place] [address]- 1573 Nov, [facility] [place] [facility] [address] [id number] [place] [address]- 2482 Nov, [facility] [place] [facility] [address] [id number] [place] [address]- 9271 Nov, [facility] [place] [facility] [address] [id number] [place] [address]- 5079 Nov, [facility] [place] [facility] [address] [id number] [place] [address]- 5067 October, [facility] [place] [facility] [address] [id number] [place] [address]- 6375 October, [facility] [place] [facility] [address] [id number] [place] [address]- 7838 Sep, [facility] [place] [facility] [address] [id number] [place] [address]- 8104 Sep, [facility] [place] [facility] [address] [id number] [place] [address]- 5806 Sep, [facility] [place] [facility] [address] [id number] [place] [address]- 4190 Sep, [facility] [place] [facility] [address] [id number] [place] [address]- 5623 Sep, [facility] [place] [facility] [address] [id number] [place] [address]- 5107 Sep, [facility] [place] [facility] [address] [id number] [place] [address]- 8523 Sep, [facility] [place] [facility] [address] [id number] [place] [address]- 8536 Sep, [facility] [place] [facility] [address] [id number] [place] [address]- 8963 Sep, [facility] [place] [facility] [address] [id number] [place] [address]- 5474 Sep, [facility] [place] [facility] [address] [id number] [place] [address]- 0465 Jul, [facility] [place] [facility] [address] [id number] [place] [address]- 1533 Jul, [facility] [place] [facility] [address] [id number] [place] [address]- 9997 Jul, [facility] [place] [facility] [address] [id number] [place] [address]- 3724 Jul, [facility] [place] [facility] [address] [id number] [place] [address]- 6910 Jun, [facility] [place] [facility] [address] [id number] [place] [address]- 3686 Jun, [facility] [place] [facility] [address] [id number], [place] [address]- 8472 15 Jun, 2013 [facility] [place] [facility] [address] [id number] [place] [address]- 8667 15 Jun, 2013 [facility] [place] [facility] [address] [id number] [place] [address] Jun, [facility] [place] [facility] [address] [id number] [place] [address] Jun, [facility] [place] [facility] [address] [id number] [place] [address] Apr, [facility] [place] [facility] [address] [id number] [place] [address] Apr, [facility] [place] [facility] [address] [id number] [place] [address] Apr, [facility] [place] [facility] [address] [id number] [place] [address] Apr, [facility] [place] [facility] [address] [id number] [place] [address] Apr, [facility] [place] [facility] [address] [id number] [place] [address] Apr, [facility] [place] [facility] [address] [facility] [id number] [place] [address] Apr, [facility] [place] [facility] [address] [id number], [place] [address] Apr, [facility] [place] [facility] [address] [id number], [place] [address] Mar, [facility] [place] [facility] [address] [id number] [place] [address] Mar, [facility] [place] [facility] [address] [id number] [place] [address] Feb, [facility] [place] [facility] [address] [facility] [id number] [place] [address] Feb, [facility] [place] [facility] [address] [id number] [place] [address] Dec, [facility] [place] [facility] [address] [id number] [place] [address] Dec, [facility] [place] [facility] [address] [id number] [place] [address] Dec, [facility] [place] [facility] [address] [id number] [place] [address] Dec, [facility] [place] [facility] [address] [id number] [place] [address] Dec, [facility] [place] [facility] [address] [id number] [place] [address] Dec, [facility] [place] [facility] [address] [id number] [place] [address] Dec, [facility] [place] [facility] [address] [id number] [place] [address] Nov, [facility] [place] [facility] [address] [id number] [place] [address] Nov, [facility] [place] [facility] [address] [id number] [place] [address] Nov, [facility] [place] [facility] [address] [id number] [place] [address] Nov, [facility] [place] [facility] [address] [id number] [place] [address] October, [facility] [place] [facility] [address] [id number] [place] [address] October, [facility] [place] [facility] [address] [id number] [place] [address] October, [facility] [place] [facility] [address] [id number] [place] [address] October, [facility] [place] [facility] [address] [id number] [place] [address] 03 Sep, 2012 [facility] [address] [id number] [place] [address] 30 Aug, 2012 [facility] [place] [facility] [address] [id number] [place] [address] 29 Aug, 2012 [facility] [place] [facility] [address] [id number] [place] [address] 22 Aug, 2012 [facility] [place] [facility] [address] [id number] [place] [address] 21 Aug, 2012 [facility] [place] [facility] [address] [id number] [place] [address] 13 Aug, 2012 [facility] [place] [facility] [address] [id number] [place] [address] 27 Jul, 2012 [facility] [place] [facility] [address] [facility] [id number] [place] [address] Jul, [facility] [place] [facility] [address] [id number] [place] [address] 26 Jul, 2012 [facility] [place] [facility] [address] [facility] [id number] [place] [address] 25 Jul, 2012 [facility] [place] [facility] [address] [facility] [id number] [place] [address] 25 Jul, 2012 [facility] [place] [facility] [address] [facility] [id number] [place] [address] 23 Jul, 2012 [facility] [place] [facility] [address] [facility] [id number] [place] [address] 20 Jul, 2012 [facility] [place] [facility] [address] [facility] [id number] [place] [address] 15 Jul, 2012 [facility] [place] [facility] [address] [facility] [id number] [place] [address]20 14 Jul, 2012 [facility] [place] [facility] [address] [facility] [id number] [place] [address]31 11 Jul, 2012 [facility] [place] [facility] [address] [id number] [place] [address] 79[address] Jun, [facility] [place] [facility] [address] [id number] [place] [address] Jun, [facility] [place] [facility] [address] [id number] [place] [address] 28[address] Jun, [facility] [place] [facility] [address] [id number] [place] [address] May, [facility] [place] [facility] [address] [id number] [place] [address] May, [facility] [place] [facility] [address] [id number] [place] [address] 3[address] Apr, [facility] [place] [facility] [address] [id number] [place] [address] 9398 Apr, [facility] [place] [facility] [address] [id number] [place] [address] Apr, [facility] [place] [facility] [address] [id number] [place] [address]- 5[address] Apr, [facility] [place] [facility] [address] [id number] [place] [address] 0[address] Apr, [facility] [place] [facility] [address] [id number] [place] [address]- 9394 Apr, [facility] [place] [facility] [address] [id number] [place] [address] 3097 Apr, [facility] [place] [facility] [address] [id number] [place] [address]- 0367 Apr, [facility] [place] [facility] [address] [id number] [place] [address] 6683 Mar, [facility] [place] [facility] [address] [id number] [place] [address]- 9354 Mar, [facility] [place] [facility] [address] [id number] [place] [address]- 0290 Mar, [facility] [place] [facility] [address] [id number] [place] [address]- 4148 Mar, [facility] [place] [facility] [address] [id number] [place] [address]- 7436 Mar, [facility] [place] [facility] [address] [id number] [place] [address]- 3556 Mar, [facility] [place] [facility] [address] [id number] [place] [address]- 6348 Mar, [facility] [place] [facility] [address] [id number] [place] [address]- 4015 Mar, [facility] [place] [facility] [address] [id number] [place] [address]- 6706 Mar, [facility] [place] [facility] [address] [id number] [place] [address]- 0426 Feb, [facility] [place] [facility] [address] [id number], [place] [address] Jan, [facility] [place] [facility] [address] [id number] [place] [address] 6338 Jan, [facility] [place] [facility] [address] [id number] [place] [address]- 8919 Jan, [facility] [place] [facility] [address] [id number], [place] [address] Dec, [facility] [place] [facility] [address] [id number], [place] [address] Dec, [facility] [place] [facility] [address] [id number] [place] [address] 6036 Dec, [facility] [place] [facility] [address] [facility] [id number], [place] [address] Nov, [facility] [place] [facility] [address] [id number] [place] [address]43 October, [facility] [place] [facility] [address] [id number] [place] [address]- 2697 October, [facility] [address] [id number] [place] [address] 1116 October, [facility] [place] [facility] [address] [id number] [place] [address]- 0376 October, [facility] [address] [id number] [place] [address] 7366 October, [facility] [address] [id number] [place] [address]- 4567 30 Sep, 2011 [facility] [address] [id number] [place] [address]- 0400 Sep, [facility] [address] [id number] [place] [address]- 4281 Sep, [facility] [address] [id number] [place] [address]- 2774 Sep, [facility] [address] [id number] [place] [address]- 1200 Sep, [facility] [address] [id number] [place] [address]- 8285 Sep, [facility] [address] [id number] [place] [address] 3852 Sep, [facility] [place] [facility] [address] [id number] [place] [address] 3184 Aug, [facility] [place] [facility] [address] [id number] [place] [address] 3766 Aug, [facility] [place] [facility] [address] [id number] [place] [address]- 8303 Aug, [facility] [place] [facility] [address] [id number] [place] [address]- 4746 Aug, [facility] [place] [facility] [address] [id number] [place] [address]- 7157 Aug, [facility] [place] [facility] [address] [id number] [place] [address]- 7866 19 Aug, 2011 [facility] [place] [facility] [address] [id number] [place] [address]- 2536 16 Aug, 2011 [facility] [place] [facility] [address] [id number] [place] [address]- 9056 15 Aug, 2011 [facility] [place] [facility] [address] [id number] [place] [address]- 2726 15 Aug, 2011 [facility] [place] [facility] [address] [id number] [place] [address]- 0729 14 Aug, 2011 [facility] [place] [facility] [address] [id number] [place] [address]- 1185 12 Aug, 2011 [facility] [place] [facility] [address] [id number] [place] [address]- 3702 08 Aug, 2011 [facility] [place] [facility] [address] [id number] [place] [address]- 0684 15 Jul, 2011 [facility] [place] [facility] [address] [id number] [place] [address]- 6881 15 Jul, 2011 [facility] [place] [facility] [address] [id number] [place] [address]- 4908 14 Jul, 2011 [facility] [place] [facility] [address] [id number] [place] [address]- 8306 06 Jul, 2011 [facility] [place] [facility] [address] [id number] [place] [address]- 3603 02 Jul, 2011 [facility] [place] [facility] [address] [id number] [place] [address]- 4873 Jun, [facility] [place] [facility] [address] [id number] [place] [address]- 4726 Jun, [facility] [place] [facility] [address] [id number] [place] [address]- 1136 Jun, [facility] [place] [facility] [address] [id number] [place] [address]- 1041 29 May, 2011 [facility] [place] [facility] [address] [id number] [place] [address]- 4743 21 May, 2011 [facility] [place] [facility] [address] [id number] [place] [address]- 1905 19 May, 2011 [facility] [place] [facility] [address] [id number] [place] [address]- 8528 19 May, 2011 [facility] [place] [facility] [address] [id number] [place] [address]- 8298 14 May, 2011 [facility] [place] [facility] [address] [id number] [place] [address]- 3961 16 Apr, 2011 [facility] [place] [facility] [address] [id number] [place] [address]- 9107 16 Apr, 2011 [facility] [place] [facility] [address] [id number] [place] [address]- 0468 15 Apr, 2011 [facility] [place] [facility] [address] [id number] [place] [address]- 6566 14 Apr, 2011 [facility] [place] [facility] [address] [id number] [place] [address]- 4393 25 Mar, 2011 [facility] [place] [facility] [address] [facility] [id number] [place] [address]- 9896 24 Mar, 2011 [facility] [place] [facility] [address] [id number] [place] [address]- 1315 19 Mar, 2011 [facility] [place] [facility] [address] [id number], [place] [address]- 6813 19 Mar, 2011 [facility] [place] [facility] [address] [id number] [place] [address]- 4769 17 Mar, 2011 [facility] [place] [facility] [address] [facility] [id number] [place] [address]- 9969 17 Mar, 2011 [facility] [place] [facility] [address] [facility] [id number] [address] 16 Feb, 2011 [facility] [place] [facility] [address] [id number], [place] [address] Nov, [facility] [address] [id number], [place] [address] 5728 Aug, [facility] [id number], [place] [address] 6510 Apr, [facility] [id number], [place] [address]- 6767 Mar, [facility] [id number], [place] [address]- 1137 Apr, [facility] [id number], [place] [address]- 3360 Apr, [facility] [id number], [place] [address]- 4[address] Sep, [facility] [id number], [place] [address]- 2537 Mar, IMMUNIZATIONS No Known Immunizations SOCIAL HISTORY Never Assessed REASON FOR VISIT Requests return call PLAN OF CARE VITAL SIGNS MEDICATIONS Unknown [...]
--- OUTSIDE RECORDS SUMMARY | 2018-06-19 13:23 | XMS REPORT ---
Author Author ARISTEO ARAYA Organization [facility] Address [address] [place] [address] Care Team Providers Care Machine Lead Burner Name Role Phone ARISTEO ARAYA Unavailable PROBLEMS Type Condition ICD9-CM Code RSR99-NL Code Onset Dates Condition Status SNOMED Code Problem Non morbid obesity due to excess calories E66.09 Active 154087092 Problem Unsteady gait R26.81 Active 40131396 Problem Eosinophilic colitis K52.82 Active 72512324 Problem Acute right-sided low back pain with right-sided sciatica M54.41 Active 470732941 Problem Paresthesias in left hand R20.2 Active 081327107 Problem Non morbid obesity E66.9 Active 153954693 Problem Other chronic gastritis without hemorrhage K29.50 Active 3197363 Problem GERD with esophagitis K21.0 Active 727452469 Problem Sacral pain M53.3 Active 11942400 Problem Fibromyalgia M79.7 Active 233369360 Problem Other chronic pain G89.29 Active 46610398 Problem Bronchitis J40 Active 96086479 Problem Migraine without aura and without status migrainosus, not intractable G43.009 Active 322517587 Problem Hypertension, benign I10 Active 26050175 ALLERGIES Substance Reaction Event Type Date Status Singulair Unknown Drug Allergy Nov, Active Lisinopril Unknown Drug Allergy Nov, Active metals Unknown Non Drug Allergy Nov, Active ENCOUNTERS Encounter Location Date Diagnosis [facility] [address] [facility] [id number] [address] Jan, [facility] [address] [id number] [address] Jan, Impacted cerumen of right ear H61.21 [facility] [address] [id number] [address] Jan, Bilious vomiting with nausea R11.14 ; BMI 40.0-44.9, adult Z68.41 ; Hypertension, benign I10 and Fibromyalgia M79.7 [place] [address] [address]- [address] Dec, Bilious vomiting with nausea R11.14 and Tachycardia R00.0 [place] [address] 0[address]25- 1670 Nov, [place] [address] [address]81- 3856 Nov, BMI 40.0-44.9, adult Z68.41 ; Leg edema R60.0 and Hypertension, benign I10 [address] [address]- [address] Nov, [place] [address] 37594- 4780 October, Thoracic neuritis M54.14 [place] [address] 92377- 8750 October, Acute right hip pain M25.551 [place] [address] 90458- 6603 October, [place] [address] 47032- 8411 Sep, Hypertension, benign I10 and Acute right-sided low back pain with right-sided sciatica M54.41 [place] [address] 53521- 9039 Sep, Fibromyalgia M79.7 and Hypertension, benign I10 [place] [address] 08359- 8652 Aug, [place] [address] 33166- 4611 Aug, Fibromyalgia M79.7 ; Frequent headaches R51 and Non morbid obesity due to excess calories E66.09 [place] [address] [id number] [address] 78[address] Jul, [place] [address] 08549- 7177 Jul, Fibromyalgia M79.7 [place] [address] 32891- 2419 Jul, Viral gastroenteritis A08.4 and Paresthesias in left hand R20.2 [place] [address] 21531- 8528 Jun, Non morbid obesity due to excess calories E66.09 [place] [address] 50038- 2666 Jun, [place] [address] 16346- 9406 Jun, Fibromyalgia M79.7 [place] [address] 59039- 9341 May, Non morbid obesity due to excess calories E66.09 and Hypertension, benign I10 [place] [address] 03712- 6263 04 May, 2017 GERD with esophagitis K21.0 [place] [address] 96162- 4336 Apr, BMI 40.0-44.9, adult Z68.41 and Non morbid obesity E66.9 [place] [address] 67349- 5162 Mar, Unsteady gait R26.81 [place] [address] 65646- 5972 Mar, Unsteady gait R26.81 ; Sacral pain M53.3 and Fibromyalgia M79.7 [place] [address] 91775- 9841 Mar, Non morbid obesity due to excess calories E66.09 [place] [address] 91748- 7793 28 Feb, 2017 Abdominal pain, generalized R10.84 [place] [address] 36609- 3824 18 Feb, 2017 Other chronic gastritis without hemorrhage K29.50 and H. pylori infection A04.8 [place] [address] 09124- 9625 07 Feb, 2017 Back pain 724.5 ; Pain in left shoulder M25.512 ; Fibromyalgia M79.7 and Non morbid obesity due to excess calories E66.09 [place] [address] 49751- 5189 07 Feb, 2017 BMI 40.0-44.9, adult Z68.41 [place] [address] 95320- 2638 Jan, Dysuria R30.0 and Acute cystitis with hematuria N30.01 [place] [address] 49148- 8557 Jan, Dysuria R30.0 [place] [address] 61806- 8884 Dec, Fibromyalgia M79.7 [place] [address] 17909- 5554 Dec, Screening for diabetes mellitus Z13.1 and Fibromyalgia M79.7 [place] [address] 63354- 7572 Dec, Fibromyalgia M79.7 [place] [address] 29624- 6727 Dec, [place] [address] 86965- 4359 05 Dec, 2016 Fibromyalgia M79.7 [place] [address] 04666- 1540 Nov, Foreign body in foot, left, initial encounter S90.852A [place] [id number] [place] [address] 81443- 0503 Nov, Viral gastroenteritis A08.4 [facility] [address] 50896- 8439 Nov, Fall, initial encounter W19.XXXA ; Post-traumatic headache, unspecified, not intractable G44.309 ; Dizziness R42 ; Unsteady gait R26.81 ; Sacral pain M53.3 and Non morbid obesity due to excess calories E66.09 [place] [address] 78980- 4993 Nov, [place] [address] 12756- 6633 Nov, [place] [address] 23165- 1414 October, Non morbid obesity due to excess calories E66.09 and Hypertension, benign I10 [place] [address] 39176- 6860 October, Fibromyalgia M79.7 [facility] [address] 26539- 7351 Sep, [facility] [address] 67784- 8936 Sep, [facility] [address] 81324- 5906 Sep, Eosinophilic colitis K52.82 [facility] [address] 61742- 7254 Aug, Bronchitis J40 [facility] [address] 40406- 3751 Aug, [facility] [address] 31807- 7250 Aug, Pain in left shoulder M25.512 ; Bronchitis J40 ; Acute midline back pain, unspecified location M54.9 ; Migraine without aura and without status migrainosus, not intractable G43.009 ; Fibromyalgia M79.7 and Pain of upper abdomen R10.10 [facility] [id number] [place] [address] 69812- 2703 Aug, [place] [id number] [place] [address] 82401- 7375 Aug, [place] [id number] [place] [address] 33967- 3959 Jul, Other viral agents as the cause of diseases classified elsewhere B97.89 and Acute upper respiratory infection, unspecified J06.9 [place] [id number] [place] [address] 59404- 0370 Jun, [facility] [id number] [place] [address] 77530 -0908 Jun, [facility] [id number] [place] [address] 74780- 0879 May, Abscess L02.91 [place] [id number] [place] [address] 15551- 6421 May, Acute midline low back pain without sciatica M54.5 [facility] [id number] [place] [address] 89641 -7169 May, [place] [id number] [place] [address] 39976- 7211 Apr, [place] [id number] [place] [address] 16436- 5640 Apr, Other chronic pain G89.29 ; Pain in right shoulder M25.511 and Pain in left shoulder M25.512 [place] [id number] [place] [address] 89430- 1675 Apr, [place] [id number] [place] [address] 50600- 3048 Apr, [facility] [address] [address] 3936 10 Apr, 2016 Fibromyalgia M79.7 ; Other chronic pain G89.29 and Pain in left shoulder M25.512 [facility] [address], [place] [address] 4197 04 Apr, 2016 Bronchitis J40 [facility] [id number] [place] [address] 28724- 2979 27 Mar, [address] [facility] [id number] [id number] Mar, [facility] [id number] [place] [address] 99537- 4574 29 Feb, 2016 [facility] [address] [place] [address] 84373- 9104 26 Feb, 2016 [facility] [id number] [place] [address] 91273- 3587 23 Feb, 2016 [facility] [id number] [place] [address] 41912- 7462 22 Feb, 2016 [facility] [id number] [place] [address] 11168- 7016 20 Feb, 2016 [facility] [address] [place] [address] 48488- 7486 19 Feb, 2016 [facility] [address] [place] [address] 18405- 1503 19 Feb, 2015 Dysuria R30.0 [facility] [address] [place] [address] 18962- 3981 19 Feb, 2015 Dysuria R30.0 [facility] [address] [place] [address] 84948- 3937 16 Feb, 2016 [facility] [address], [place] [address]- 4678 15 Feb, 2016 Migraine, unspecified, not intractable, without status migrainosus G43.909 and Fibromyalgia M79.7 [facility] [id number] [place] [address] 46124- 8188 Feb, Migraine without aura and without status migrainosus, not intractable G43.009 [facility] [id number] [place] [address] 09901- 2864 Jan, [facility] [address] 69980- 3714 Jan, [facility] [id number] [place] [address] 43517- 6538 Jan, [facility] [address] 97753- 2625 Jan, [facility] [id number] [place] [address] 55028- 1204 Jan, Unsteady gait R26.81 ; Fibromyalgia M79.7 and Family history of rheumatoid arthritis Z82.61 [facility] [id number] [place] [address] 05226- 5902 Dec, [place] [address] 93902- 5600 Dec, [facility] [id number] [place] [address] 75342- 3375 Nov, Pain in left shoulder M25.512 [facility] [id number] [place] [address] 95737- 7599 October, Viral gastroenteritis A08.4 [facility] [id number] [place] [address] 46605 -8606 October, Pain of upper abdomen R10.10 [facility] [id number] [place] [address] 52168- 9997 October, Acute midline back pain, unspecified location M54.9 [facility] [id number] [place] [address] 77776- 5123 Aug, Elbow pain, right M25.521 [facility] [address] [place] [address] 48190- 1594 Aug, Elbow pain, right M25.521 [facility] [id number] [place] [address] 19935- 5149 Aug, Pain of right upper extremity M79.601 [facility] [id number] [place] [address] 25162- 7593 Jun, Lumbar neuritis M54.16 [facility] [id number] [place] [address] 67406- 4804 May, [place] [id number] [place] [address] 29287- 5315 Apr, Non morbid obesity due to excess calories E66.09 [place] [id number] [place] [address] 49085- 4780 Apr, Non morbid obesity due to excess calories E66.09 and Thoracic neuritis M54.14 [place] [id number] [place] [address] 30432- 9915 Apr, Elbow pain, right M25.521 [facility] [address] [place] [address] 47451- 1352 Mar, Right elbow pain M25.521 [facility] [id number] [place] [address] 01049- 7239 Mar, [facility] [id number] [place] [address] 31274- 5824 30 Feb, 2015 Urinary tract infection, site not specified 599.0 [facility] [address] [place] [address] 55932- 2615 Feb, [facility] [address] [place] [address] 92620- 1180 Jan, Spider bite 989.5 [facility] [id number] [place] [address] 29756- 0649 Jan, Spider bite 989.5 [facility] [address] 03301- 3696 Jan, Spider bite 989.5 [facility] [id number] [place] [address] 41044- 1849 Nov, Back pain 724.5 and Diabetes 250.00 [facility] [address] 47855- 5595 Nov, Back pain 724.5 and Muscle spasm of back 724.8 [facility] [address] 89593- 6342 Nov, Alternating constipation and diarrhea 787.99 [facility] [address] 06783- 9350 October, Back pain 724.5 and Hip pain 719.45 [facility] [id number] [place] [address] 28740- 1130 Sep, [facility] [address] 52501- 2888 Sep, [facility] [id number] [place] [address] 79933- 9104 Aug, [facility] [id number] [place] [address] 53488- 5850 Aug, [facility] [id number] [place] [address] 95243- 6117 Aug, [facility] [id number] [place] [address] 19732- 8443 Aug, [facility] [id number] [place] [address] 932807- 6257 Aug, [facility] [id number] [place] [address] 85151- 7765 Aug, [facility] [place] [facility] [address] [id number] [place] [address]- 1000 Jul, [facility] [place] [facility] [address] [id number] [place] [address]- 9955 Jul, [facility] [place] [facility] [address] [id number] [place] [address]- 0476 Jun, [facility] [place] [facility] [address] [id number] [place] [address]- 2570 Jun, [facility] [place] [facility] [address] [id number] [place] [address]- 1922 Jun, [facility] [place] [facility] [address] [id number] [place] [address]- 8633 Jun, [facility] [place] [facility] [address] [id number] [place] [address]- 0816 Jun, [facility] [place] [facility] [address] [id number] [place] [address]- 2342 Jun, [facility] [place] [facility] [address] [id number] [place] [address]- 9495 Jun, [facility] [place] [facility] [address] [id number] [place] [address]- 4848 May, [facility] [place] [facility] [address] [id number] [place] [address]- 1423 May, [facility] [place] [facility] [address] [id number] [place] [address]- 1125 May, [facility] [place] [facility] [address] [id number] [place] [address]- 1050 May, [facility] [place] [facility] [address] [id number] [place] [address]- 6361 Apr, [facility] [place] [facility] [address] [id number] [place] [address]- 4266 Apr, [facility] [place] [facility] [address] [id number] [place] [address]- 9913 Mar, [facility] [place] [facility] [address] [id number] [place] [address]- 7124 Mar, [facility] [place] [facility] [address] [id number] [place] [address]- 4862 Mar, [facility] [place] [facility] [address] [id number] [place] [address]- 9848 Mar, [facility] [place] [facility] [address] [id number] [place] [address]- 8604 Mar, [facility] [place] [facility] [address] [id number] [place] [address]- 7563 Mar, [facility] [place] [facility] [address] [id number] [place] [address]- 6728 Mar, [facility] [place] [facility] [address] [id number] [place] [address]- 7883 Mar, [facility] [place] [facility] [address] [id number] [place] [address]- 8029 Mar, [facility] [place] [facility] [address] [id number] [place] [address]- 6471 Mar, [facility] [place] [facility] [address] [id number] [place] [address]- 2942 Feb, [facility] [place] [facility] [address] [id number] [place] [address]- 1395 Feb, [facility] [place] [facility] [address] [id number] [place] [address]- 2384 Jan, [facility] [place] [facility] [address] [id number] [place] [address]- 9269 Jan, [facility] [place] [facility] [address] [id number] [place] [address]- 9972 Jan, [facility] [place] [facility] [address] [id number] [place] [address]- 1810 Jan, [facility] [place] [facility] [address] [id number] [place] [address]- 0209 Jan, [facility] [place] [facility] [address] [id number] [place] [address]- 5270 Jan, [facility] [place] [facility] [address] [id number] [place] [address]- 1648 Jan, [facility] [place] [facility] [address] [id number] [place] [address]- 0920 Jan, [facility] [place] [facility] [address] [id number] [place] [address]- 3930 Jan, [facility] [place] [facility] [address] [id number] [place] [address]- 5973 Jan, [facility] [place] [facility] [address] [id number] [place] [address]- 8616 Dec, [facility] [place] [facility] [address] [id number] [place] [address]- 6751 Dec, [facility] [place] [facility] [address] [id number] [place] [address]- 6095 Dec, [facility] [place] [facility] [address] [id number] [place] [address]- 6129 Dec, [facility] [place] [facility] [address] [id number] [place] [address]- 8802 Nov, [facility] [place] [facility] [address] [id number] [place] [address]- 8856 Nov, [facility] [place] [facility] [address] [id number] [place] [address]- 3932 Nov, [facility] [place] [facility] [address] [id number] [place] [address]- 4368 Nov, [facility] [place] [facility] [address] [id number] [place] [address]- 0713 October, [facility] [place] [facility] [address] [id number] [place] [address]- 9635 October, [facility] [place] [facility] [address] [id number] [place] [address]- 4653 Sep, [facility] [place] [facility] [address] [id number] [place] [address]- 5208 Sep, [facility] [place] [facility] [address] [id number] [place] [address]- 0244 Sep, [facility] [place] [facility] [address] [id number] [place] [address]- 1688 Sep, [facility] [place] [facility] [address] [id number] [place] [address]- 6824 Sep, [facility] [place] [facility] [address] [id number] [place] [address]- 4522 Sep, [facility] [place] [facility] [address] [id number] [place] [address]- 3338 Sep, [facility] [place] [facility] [address] [id number] [place] [address]- 6096 Sep, [facility] [place] [facility] [address] [id number] [place] [address]- 2180 Sep, [facility] [place] [facility] [address] [id number] [place] [address]- 0966 Sep, [facility] [place] [facility] [address] [id number] [place] [address]- 6230 Jul, [facility] [place] [facility] [address] [id number] [place] [address]- 4223 Jul, [facility] [place] [facility] [address] [id number] [place] [address]- 6839 Jul, [facility] [place] [facility] [address] [id number] [place] [address]- 5833 Jul, [facility] [place] [facility] [address] [id number] [place] [address]- 5974 Jun, [facility] [place] [facility] [address] [id number] [place] [address]- 4888 28 Jun, 2013 [facility] [place] [facility] [address] [id number] [place] [address]- 0924 Jun, [facility] [place] [facility] [address] [id number] [place] [address]- 0735 15 Jun, 2013 [facility] [address] [id number] [place] [address]- 0473 14 Jun, 2013 [facility] [place] [facility] [address] [id number] [place] [address]- 9780 Jun, [facility] [place] [facility] [address] [id number] [place] [address]- 9560 Apr, [facility] [place] [facility] [address] [id number] [place] [address]- 4427 Apr, [facility] [place] [facility] [address] [id number] [place] [address]- 8070 Apr, [facility] [place] [facility] [address] [id number] [place] [address]- 3458 Apr, [facility] [place] [facility] [address] [id number] [place] [address] Apr, [facility] [place] [facility] [address] [facility] [id number] [place] [address] Apr, [facility] [place] [facility] [address] [id number] [place] [address] Apr, [facility] [place] [facility] [address] [id number], [place] [address] Apr, [facility] [place] [facility] [address] [id number] [place] [address] Mar, [facility] [place] [facility] [address] [id number] [place] [address] Mar, [facility] [place] [facility] [address] [id number] [place] [address] Feb, [facility] [place] [facility] [address] [id number] [place] [address] Feb, [facility] [address] [id number] [place] [address] Dec, [facility] [address] [id number] [place] [address] Dec, [facility] [address] [id number] [place] [address] Dec, [facility] [address] [id number] [place] [address] Dec, [facility] [address] [id number] [place] [address] Dec, [facility] [address] [id number] [place] [address] Dec, [facility] [address] [id number] [place] [address] Dec, [facility] [address] [id number] [place] [address] Nov, [facility] [address] [id number] [place] [address] Nov, [facility] [address] [id number] [place] [address] Nov, [facility] [place] [facility] [address] [id number] [place] [address] Nov, [facility] [place] [facility] [address] [id number] [place] [address] October, [facility] [place] [facility] [address] [id number] [place] [address] October, [facility] [place] [facility] [address] [id number] [place] [address] October, [facility] [address] [id number] [place] [address] October, [facility] [address] [id number] [place] [address] Sep, [facility] [place] [facility] [address] [id number] [place] [address] 30 Aug, 2012 [facility] [address] [facility] [id number] [place] [address] Aug, [facility] [place] [facility] [address] [id number] [place] [address] Aug, [facility] [address] [id number] [place] [address] Aug, [facility] [address] [facility] [id number] [place] [address] Aug, [facility] [address] [facility] [id number] [place] [address] 27 Jul, 2012 [facility] [place] [facility] [address] [facility] [id number] [place] [address] 27 Jul, 2012 [facility] [id number] [place] [address] 26 Jul, 2012 [facility] [place] [facility] [address] [facility] [id number] [place] [address] Jul, [facility] [place] [facility] [address] [facility] [id number] [place] [address] Jul, [facility] [facility] [address] [facility] [id number], [place] [address] 23 Jul, 2012 [facility] [place] [facility] [address] [facility] [id number] [place] [address] 20 Jul, 2012 [facility] [place] [facility] [address] [facility] [id number] [address] 15 Jul, 2012 [facility] [place] [facility] [address] [facility] [id number], [place] [address] 14 Jul, 2012 [facility] [place] [facility] [address] [id number] [place] [address] Jul, [facility] [place] [facility] [address] [id number] [place] [address] Jun, [facility] [place] [facility] [address] [id number] [place] [address] Jun, [facility] [place] [facility] [address] [id number] [place] [address] Jun, [facility] [place] [facility] [address] [id number] [place] [address] May, [facility] [place] [facility] [address] [id number] [place] [address] May, [facility] [place] [facility] [address] [id number] [place] [address] Apr, [facility] [place] [facility] [address] [id number] [place] [address] Apr, [facility] [place] [facility] [address] [id number] [place] [address] Apr, [facility] [place] [facility] [address] [id number] [place] [address] Apr, [facility] [place] [facility] [address] [id number] [place] [address] 1575 Apr, [facility] [place] [facility] [address] [id number], [place] [address] Apr, [facility] [place] [facility] [address] [id number] [place] [address]100 Apr, [facility] [place] [facility] [address] [id number] [place] [address] 4936 Apr, [facility] [place] [facility] [address] [id number] [place] [address] Mar, [facility] [place] [facility] [address] [id number], [place] [address] Mar, [facility] [place] [facility] [address] [id number] [place] [address] 94[address] Mar, [facility] [place] [facility] [address] [id number] [place] [address] 7762 Mar, [facility] [place] [facility] [address] [id number] [place] [address] 1386 Mar, [facility] [place] [facility] [address] [id number] [place] [address] 6274 Mar, [facility] [place] [facility] [address] [id number] [place] [address] Mar, [facility] [place] [facility] [address] [id number] [place] [address] 3689 Mar, [facility] [place] [facility] [address] [id number] [place] [address]20 Mar, [facility] [place] [facility] [address] [id number] [place] [address] 0370 Feb, [facility] [place] [facility] [address] [id number] [place] [address]- 9[address] Jan, [facility] [place] [facility] [address] [id number] [place] [address] 93[address] Jan, [facility] [place] [facility] [address] [id number] [place] [address] 8867 Jan, [facility] [place] [facility] [address] [id number] [place] [address] Dec, [facility] [place] [facility] [address] [id number] [place] [address] 9760 Dec, [facility] [place] [facility] [address] [id number] [place] [address] Dec, [facility] [place] [facility] [address] [id number] [place] [address] Nov, [facility] [place] [facility] [address] [id number] [place] [address] 8166 October, [facility] [address] [id number] [place] [address] 2962 October, [facility] [address] [id number] [place] [address] October, [facility] [address] [id number] [place] [address] October, [facility] [address] [id number] [place] [address] October, [facility] [address] [id number] [place] [address] 3982 30 Sep, 2011 [facility] [address] [id number] [place] [address] 5463 Sep, [facility] [address] [id number] [place] [address] 8362 Sep, [facility] [address] [id number] [place] [address] 2345 Sep, [facility] [address] [id number] [place] [address] 0615 Sep, [facility] [address] [id number] [place] [address] 2216 Sep, [facility] [address] [id number] [place] [address] 6484 Sep, [facility] [address] [id number] [place] [address] 9731 Aug, [facility] [address] [id number] [place] [address] 4140 Aug, [facility] [address] [id number] [place] [address] Aug, [facility] [address] [id number] [place] [address] 8348 Aug, [facility] [facility] [address] [id number] [place] [address]- 2859 20 Aug, 2011 [facility] [place] [facility] [address] [id number] [place] [address] 6886 19 Aug, 2011 [facility] [facility] [address] [id number] [place] [address] 6024 16 Aug, 2011 [facility] [facility] [address] [id number] [place] [address]- 6759 15 Aug, 2011 [facility] [facility] [address] [id number] [place] [address]- 1436 15 Aug, 2011 [facility] [facility] [address] [id number] [place] [address] 8401 14 Aug, 2011 [facility] [facility] [address] [id number] [place] [address]- 8859 12 Aug, 2011 [facility] [facility] [address] [id number] [place] [address]- 6014 08 Aug, 2011 [facility] [place] [facility] [address] [id number] [place] [address] 3106 15 Jul, 2011 [facility] [facility] [address] [id number] [place] [address]- 8042 15 Jul, 2011 [facility] [address] [id number] [place] [address]- 3510 14 Jul, 2011 [facility] [facility] [address] [id number] [place] [address]- 1484 06 Jul, 2011 [facility] [facility] [address] [id number] [place] [address] 8275 02 Jul, 2011 [facility] [facility] [address] [id number] [place] [address]- 6450 18 Jun, 2011 [facility] [facility] [address] [id number] [place] [address]- 6915 04 Jun, 2011 [facility] [address] [id number] [place] [address] 3391 Jun, [facility] [address] [id number] [place] [address]- 5858 29 May, 2011 [facility] [facility] [address] [id number] [place] [address]- 6045 May, [facility] [address] [id number] [place] [address]- 6322 May, [facility] [facility] [address] [id number] [place] [address]- 6190 19 May, 2011 [facility] [address] [id number] [place] [address]- 4315 14 May, 2011 [facility] [address] [id number] [place] [address]- 0548 16 Apr, 2011 [facility] [facility] [address] [id number] [place] [address]- 1867 16 Apr, 2011 [facility] [address] [id number] [place] [address]- 6594 15 Apr, 2011 [facility] [address] [id number] [place] [address]- 3629 14 Apr, 2011 [facility] [address] [facility] [id number] [place] [address]- 1115 25 Mar, 2011 [facility] [place] [facility] [address] [id number] [place] [address]- 5744 24 Mar, 2011 [facility] [facility] [address] [id number] [place] [address]- 7549 Mar, [facility] [place] [facility] [address] [id number] [place] [address]- 0007 19 Mar, 2011 [facility] [place] [facility] [address] [id number] [place] [address]- 0530 17 Mar, 2011 [facility] [facility] [address] [id number] [place] [address]- 4898 Mar, [facility] [address] [facility] [id number], [place] [address] Feb, [facility] [address] [id number], [place] [address] Nov, [facility] [address] [id number], [place] [address] 110[address] Aug, [facility] [id number], [place] [address] 25[address] Apr, [facility] [id number], [place] [address]- 4116 Mar, [facility] [id number], [place] [address] 3216 Apr, [facility] [id number], [place] [address]- 2546 Apr, [facility] [id number], [place] [address]- [address] Sep, [facility] [address] [id number], [place] [address] Mar, IMMUNIZATIONS No Known Immunizations SOCIAL HISTORY Never Assessed REASON FOR VISIT Swelling, ankle pain - Haylie REED PLAN OF CARE Activity Details Follow Up 4 Weeks Reason:edema VITAL SIGNS Height 63 in 2017-11-11 Weight 242.6 lbs 2017-11-11 Temperature 98.4 degrees Fahrenheit 2017-11-11 Heart Rate 66 bpm 2017-11-11 Respiratory Rate 18 2017-11-11 BMI 42.97 kg/m2 2017-11-11 Blood pressure systolic 132 mmHg 2017-11-11 Blood pressure diastolic 90 mmHg 2017-11-11 MEDICATIONS Medication Instructions Dosage Frequency Start Date End Date Duration Status Naproxen Sodium ER 500 MG Orally Once a day 2 tablets 24h October, Nov, 30 day(s) Active Glucocard Expression Test - test blood sugar Aug, Active Micardis 20 MG Orally Once a day 1 tablet by Oral route 1 time per day 24h Jun, 90 days Active Propranolol HCl 40 mg Orally Twice a day 1 tablet 12h October, 90 days Active Albuterol Sulfate (2.5 MG/3ML) 0.083% Inhalation Three times a day 3 ml 8h Aug, Active Metformin HCl 500 MG Orally Twice a day 2 tablets 12h Nov, Active [employer] - with bench seat. DX: fibromyalgia, unsteady gait as directed Jan, Active Proventil HFA 108 (90 Base) MCG/ACT Inhalation every 4 hrs 2 puffs as needed 4h Aug, Active Wheelchair 1 use as needed for acitivity assistance Nov, Active Glucocard Expression Monitor w/Device as directed Aug, Active Crestor 10 mg Orally Once a day 1 tablet 24h Feb, Active Cymbalta 60 MG Orally Once a day 1 capsule 24h Active Spironolactone 25 MG Orally Once a day 1 tablet with food 24h Nov, Mar, 30 day(s) Active Mirtazapine 15 MG Orally Once a day 1 tablet at bedtime 24h Active Lyrica 150 MG Orally 3 times a day 1 capsule 8h Mar, 90 days Active Pantoprazole Sodium 40 mg Orally Once a day 1 tablet 24h May, 90 days Active RESULTS No Results PROCEDURES Procedure Date Ordered Result Body Site COMPREHEN METABOLIC PANEL November 11, 2017 NATRIURETIC PEPTIDE November 11, 2017 ASSAY THYROID STIM HORMONE November 11, 2017 INSTRUCTIONS MEDICATIONS ADMINISTERED No Known Medications MEDICAL [...]
--- OUTSIDE RECORDS SUMMARY | 2018-06-19 13:24 | XMS REPORT ---
Author Author ARISTEO ARAYA Organization [facility] Address [address] [place] [address] Care Team Providers Care Drier Belt Conveyor Name Role Phone ARISTEO ARAYA Unavailable PROBLEMS Type Condition ICD9-CM Code [id number] Code Onset Dates Condition Status SNOMED Code Problem Non morbid obesity due to excess calories E66.09 Active 147804741 Problem Unsteady gait R26.81 Active 08498855 Problem Eosinophilic colitis K52.82 Active 50272185 Problem Acute right-sided low back pain with right-sided sciatica M54.41 Active 868937894 Problem Paresthesias in left hand R20.2 Active 702305697 Problem Non morbid obesity E66.9 Active 703243804 Problem Other chronic gastritis without hemorrhage K29.50 Active 6652943 Problem GERD with esophagitis K21.0 Active 417019110 Problem Sacral pain M53.3 Active 99468770 Problem Fibromyalgia M79.7 Active 906777595 Problem Other chronic pain G89.29 Active 86952638 Problem Bronchitis J40 Active 12051129 Problem Migraine without aura and without status migrainosus, not intractable G43.009 Active 562121483 Problem Hypertension, benign I10 Active 06837761 ALLERGIES No Information ENCOUNTERS Encounter Location Date Diagnosis [place] [id number] [place] [address] 60131- 5011 Jan, [place] [id number] [place] [address] 06436- 4322 Jan, Impacted cerumen of right ear H61.21 [place] [address] [place] [id number] [place] [address] 91704- 5043 Jan, Bilious vomiting with nausea R11.14 ; BMI 40.0-44.9, adult Z68.41 ; Hypertension, benign I10 and Fibromyalgia M79.7 [place] [address] 36625- 8080 Dec, Bilious vomiting with nausea R11.14 and Tachycardia R00.0 [place] [address] 34728- 2257 Nov, [place] [address] 78972- 2631 Nov, BMI 40.0-44.9, adult Z68.41 ; Leg edema R60.0 and Hypertension, benign I10 [place] [address] 85003- 1912 Nov, [place] [address] 94856- 2419 October, Thoracic neuritis M54.14 [place] [address] 78301- 4947 October, Acute right hip pain M25.551 [place] [address] 65572- 0233 October, [place] [address] 16281- 6841 Sep, Hypertension, benign I10 and Acute right-sided low back pain with right-sided sciatica M54.41 [place] [address] 37920- 1515 Sep, Fibromyalgia M79.7 and Hypertension, benign I10 [place] [address] 83597- 7263 Aug, [place] [address] 43367- 9253 Aug, Fibromyalgia M79.7 ; Frequent headaches R51 and Non morbid obesity due to excess calories E66.09 [place] [address] 45522- 7937 Jul, [place] [address] [place] [address]- 7716 Jul, Fibromyalgia M79.7 [place] [address] 74642- 7643 Jul, Viral gastroenteritis A08.4 and Paresthesias in left hand R20.2 [place] [address] 07231- 6785 Jun, Non morbid obesity due to excess calories E66.09 [place] [address] 52319- 2968 Jun, [address] 44705- 2051 Jun, Fibromyalgia M79.7 [place] [address] 05359- 1700 May, Non morbid obesity due to excess calories E66.09 and Hypertension, benign I10 [place] [address] 35137- 4037 May, GERD with esophagitis K21.[address] 39933- 0788 Apr, BMI 40.0-44.9, adult Z68.41 and Non morbid obesity E66.[address] 26427- 7908 Mar, Unsteady gait R26.81 [place] [address] 97268- 1607 Mar, Unsteady gait R26.81 ; Sacral pain M53.3 and Fibromyalgia M79.[address] 90772- 0300 Mar, Non morbid obesity due to excess calories E66.09 [place] [address] 06743- 6892 Feb, Abdominal pain, generalized R10.84 [place] [address] [place] [id number] [place] [address] 58974- 1904 18 Feb, 2017 Other chronic gastritis without hemorrhage K29.50 and H. pylori infection A04.8 [place] [address] [place] [id number] [place] [address] 99368- 1936 07 Feb, 2017 Back pain 724.5 ; Pain in left shoulder M25.512 ; Fibromyalgia M79.7 and Non morbid obesity due to excess calories E66.09 [place] [address] 92628- 9262 07 Feb, 2017 BMI 40.0-44.9, adult Z68.41 [place] [address] 03067- 4055 14 Jan, 2017 Dysuria R30.0 and Acute cystitis with hematuria N30.01 [place] [address] 32539- 9818 Jan, Dysuria R30.0 [place] [address] 91068- 0008 Dec, Fibromyalgia M79.7 [place] [address] 23594- 6879 Dec, Screening for diabetes mellitus Z13.1 and Fibromyalgia M79.7 [place] [address] 20670- 9287 Dec, Fibromyalgia M79.7 [place] [address] 37910- 3860 Dec, [place] [address] 88317- 3754 Dec, Fibromyalgia M79.7 [place] [address] 96559- 1338 Nov, Foreign body in foot, left, initial encounter S90.852A [place] [address] 78261- 1169 Nov, Viral gastroenteritis A08.4 [place] [address] 35174- 7300 Nov, Fall, initial encounter W19.XXXA ; Post-traumatic headache, unspecified, not intractable G44.309 ; Dizziness R42 ; Unsteady gait R26.81 ; Sacral pain M53.3 and Non morbid obesity due to excess calories E66.09 [place] [address] 90483- 1636 Nov, [place] [address] 07979- 8823 Nov, [place] [address] 08594- 1768 October, Non morbid obesity due to excess calories E66.09 and Hypertension, benign I10 [place] [address] 65590- 3681 October, Fibromyalgia M79.7 [place] [address] 93028- 0625 Sep, [place] [address] 34676- 3393 Sep, [place] [address] 99992- 6325 Sep, Eosinophilic colitis K52.82 [place] [address] 14263- 3971 Aug, Bronchitis J40 [place] [address] 77955- 4754 Aug, [place] [address] 99181- 6706 Aug, Pain in left shoulder M25.512 ; Bronchitis J40 ; Acute midline back pain, unspecified location M54.9 ; Migraine without aura and without status migrainosus, not intractable G43.009 ; Fibromyalgia M79.7 and Pain of upper abdomen R10.10 [facility] [address] [place] [id number] [place] [address] 58317- 2553 Aug, [facility] [address] [place] [id number] [place] [address] 41823- 5938 Aug, [facility] [address] [place] [id number] [place] [address] 67420- 3112 Jul, Other viral agents as the cause of diseases classified elsewhere B97.89 and Acute upper respiratory infection, unspecified J06.9 [place] [address] [place] [id number] [place] [address] 48661- 7321 Jun, [facility] [address] [place] [id number] [place] [address] 20651 -3048 Jun, [place] [address] [place] [id number] [place] [address] 29169- 3181 May, Abscess L02.91 [place] [address] 58266- 9242 May, Acute midline low back pain without sciatica M54.5 [facility] [address] [place] [id number] [place] [address] 22259 -4335 May, [place] [address] [place] [id number] [place] [address] 80031- 7393 Apr, [place] [address] [place] [id number] [place] [address] 32376- 6306 Apr, Other chronic pain G89.29 ; Pain in right shoulder M25.511 and Pain in left shoulder M25.512 [place] [address] [place] [id number] [place] [address] 94924- 2368 16 Apr, 2016 [place] [address] [place] [id number] [place] [address] 04633- 4444 Apr, [place] [address] 09587- 6192 Apr, 2016 Fibromyalgia M79.7 ; Other chronic pain G89.29 and Pain in left shoulder M25.512 [facility] [address] [place] [id number] [place] [address] 73620- 1912 04 Apr, 2016 Bronchitis J40 [facility] [address] [place] [id number] [place] [address] 85389- 7069 27 Mar, 2016 [facility] [address] [place] [id number] [place] [address] [id number] Mar, [facility] [address] [place] [id number] [place] [address] 08691- 5767 29 Feb, 2015 [facility] [address] [place] [id number] [place] [address] 45188- 4295 26 Feb, 2016 [facility] [address] [place] [id number] [place] [address] 98360- 0071 23 Feb, 2016 [facility] [address] [place] [id number] [place] [address] 97693- 0740 22 Feb, 2015 [facility] [address] [place] [id number] [place] [address] 43718- 6346 20 Feb, 2015 [facility] [address] [place] [id number] [place] [address] 78157- 0332 19 Feb, 2015 [facility] [address] [place] [id number] [place] [address] 33497- 5597 19 Feb, 2016 Dysuria R30.0 [facility] [address] [place] [id number] [place] [address] 50667- 3555 19 Feb, 2015 Dysuria R30.0 [facility] [address] [place] [id number] [place] [address] 82366- 3132 16 Feb, 2016 [facility] [address] [place] [id number] [place] [address] 17171- 3474 15 Feb, 2016 Migraine, unspecified, not intractable, without status migrainosus G43.909 and Fibromyalgia M79.7 [facility] [address] [place] [id number] [place] [address] 24269- 2215 Feb, Migraine without aura and without status migrainosus, not intractable G43.009 [facility] [address] [place] [id number] [place] [address] 68148- 6570 Jan, [facility] [address] [place] [id number] [place] [address] 82903- 3486 Jan, [facility] [address] [place] [id number] [place] [address] 66206- 4526 Jan, [facility] [address] [place] [id number] [place] [address] 54625- 3438 Jan, [facility] [address] 95990- 2878 Jan, Unsteady gait R26.81 ; Fibromyalgia M79.7 and Family history of rheumatoid arthritis Z82.61 [place] [address] 60771- 0393 Dec, [facility] [address] [place] [id number] [place] [address] 86830- 3596 Dec, [facility] [address] [place] [id number] [place] [address] 47720- 8806 Nov, Pain in left shoulder M25.512 [facility] [address] [place] [id number] [place] [address] 14080- 5897 October, Viral gastroenteritis A08.4 [facility] [address] [place] [id number] [place] [address] 57760 -6112 October, Pain of upper abdomen R10.10 [facility] [address] [place] [id number] [place] [address] 84606- 8420 October, Acute midline back pain, unspecified location M54.9 [facility] [address] [place] [id number] [place] [address] 67208- 5160 Aug, Elbow pain, right M25.521 [place] [address] 03042- 6325 Aug, Elbow pain, right M25.521 [facility] [address] [place] [id number] [place] [address] 50737- 8151 Aug, Pain of right upper extremity M79.601 [facility] [address] [place] [id number] [place] [address] 09942- 8963 Jun, Lumbar neuritis M54.16 [facility] [address] 50279- 1819 May, [facility] [address] [place] [id number] [place] [address] 32421- 2700 Apr, Non morbid obesity due to excess calories E66.09 [facility] [address] [place] [id number] [place] [address] 44681- 6437 Apr, Non morbid obesity due to excess calories E66.09 and Thoracic neuritis M54.14 [facility] [address] [place] [id number] [place] [address] 60154- 1809 Apr, Elbow pain, right M25.521 [facility] [address] [place] [id number] [place] [address] 95974- 6359 Mar, Right elbow pain M25.521 [facility] [address] [place] [id number] [place] [address] 87304- 3933 Mar, [facility] [address] [place] [id number] [place] [address] 93174- 5877 Feb, Urinary tract infection, site not specified 599.0 [facility] [address] [place] [id number] [place] [address] 31345- 5869 Feb, [facility] [address] [place] [id number] [place] [address] 10646- 9137 Jan, Spider bite 989.5 [facility] [address] [place] [id number] [place] [address] 22369- 1510 Jan, Spider bite 989.5 [facility] [address] [place] [id number] [place] [address] 40592- 7327 Jan, Spider bite 989.5 [facility] [address] 64412- 7263 10 Nov, 2014 Back pain 724.5 and Diabetes 250.00 [facility] [address] [place] [id number] [place] [address] 19075- 7650 Nov, Back pain 724.5 and Muscle spasm of back 724.8 [facility] [address] [place] [id number] [place] [address] 05271- 7290 Nov, Alternating constipation and diarrhea 787.99 [facility] [address] [place] [id number] [place] [address] 58583- 9690 October, Back pain 724.5 and Hip pain 719.45 [facility] [address] [place] [id number] [place] [address] 98267- 0781 Sep, [facility] [address] [place] [id number] [place] [address] 56138- 4445 Sep, [facility] [address] [place] [id number] [place] [address] 74407- 1135 Aug, [facility] [address] [place] [id number] [place] [address] 82819- 7855 Aug, [facility] [address] [place] [id number] [place] [address] 98939- 5853 Aug, [facility] [address] [place] [id number] [place] [address] 16158- 9101 Aug, [facility] [address] [place] [id number] [place] [address] 67542- 8311 Aug, [facility] [address] [place] [id number] [place] [address] 701353- 4779 Aug, [facility] [address] [place] [id number] [place] [address] 499587- 9693 Jul, [facility] [address] [facility] [id number] [place] [address]- 7204 Jul, [facility] [place] [facility] [address] [id number] [place] [address]- 0557 Jun, [facility] [place] [facility] [address] [id number] [place] [address]- 2472 Jun, [facility] [place] [facility] [address] [id number] [place] [address]- 9296 Jun, [facility] [place] [facility] [address] [id number] [place] [address]- 4938 Jun, [facility] [place] [facility] [address] [id number] [place] [address]- 5012 Jun, [facility] [place] [facility] [address] [id number] [place] [address]- 7117 Jun, [facility] [place] [facility] [address] [id number] [place] [address]- 2022 Jun, [facility] [place] [facility] [address] [id number] [place] [address]- 4073 May, [facility] [place] [facility] [address] [id number] [place] [address]- 4361 May, [facility] [place] [facility] [address] [id number] [place] [address]- 7268 May, [facility] [place] [facility] [address] [id number] [place] [address]- 7497 May, [facility] [place] [facility] [address] [id number] [place] [address]- 1709 Apr, [facility] [place] [facility] [address] [id number] [place] [address]- 7909 Apr, [facility] [place] [facility] [address] [id number] [place] [address]- 5331 Mar, [facility] [place] [facility] [address] [id number] [place] [address]- 1232 Mar, [facility] [place] [facility] [address] [id number] [place] [address]- 5464 Mar, [facility] [place] [facility] [address] [id number] [place] [address]- 6430 Mar, [facility] [place] [facility] [address] [id number] [place] [address]- 6123 Mar, [facility] [place] [facility] [address] [id number] [place] [address]- 6837 Mar, [facility] [place] [facility] [address] [id number] [place] [address]- 7186 Mar, [facility] [place] [facility] [address] [id number] [place] [address]- 9906 Mar, [facility] [place] [facility] [address] [id number] [place] [address]- 1076 Mar, [facility] [place] [facility] [address] [id number] [place] [address]- 3391 Mar, [facility] [place] [facility] [address] [id number] [place] [address]- 7484 Feb, [facility] [place] [facility] [address] [id number] [place] [address]- 6114 Feb, [facility] [place] [facility] [address] [id number] [place] [address]- 1683 Jan, [facility] [place] [facility] [address] [id number], [place] [address]- 0422 Jan, [facility] [place] [facility] [address] [id number] [place] [address]- 4960 Jan, [facility] [place] [facility] [address] [id number] [place] [address]- 4337 Jan, [facility] [place] [facility] [address] [id number] [place] [address]- 5542 Jan, [facility] [place] [facility] [address] [id number] [place] [address]- 9696 Jan, [facility] [place] [facility] [address] [id number] [place] [address]- 0463 Jan, [facility] [place] [facility] [address] [id number] [place] 8463 Jan, [facility] [place] [facility] [address] [id number] [place] [address]- 8579 Jan, [facility] [place] [facility] [address] [id number] [place] [address]- 4118 Jan, [facility] [place] [facility] [address] [id number] [place] [address]- 3229 Dec, [facility] [place] [facility] [address] [id number] [place] [address]- 8572 Dec, [facility] [place] [facility] [address] [id number] [place] [address]- 0574 Dec, [facility] [place] [facility] [address] [id number] [place] [address]- 6146 Dec, [facility] [place] [facility] [address] [id number] [place] [address]- 2577 Nov, [facility] [place] [facility] [address] [id number] [place] [address]- 9033 Nov, [facility] [place] [facility] [address] [id number] [place] [address]- 2958 Nov, [facility] [place] [facility] [address] [id number] [place] [address]- 3978 Nov, [facility] [place] [facility] [address] [id number] [place] [address]- 9849 October, [facility] [place] [facility] [address] [id number] [place] [address]- 5029 October, [facility] [place] [facility] [address] [id number] [place] [address]- 7636 Sep, [facility] [place] [facility] [address] [id number] [place] [address]- 3140 Sep, [facility] [place] [facility] [address] [id number] [place] [address]- 4497 Sep, [facility] [place] [facility] [address] [id number] [place] [address]- 9000 Sep, [facility] [place] [facility] [address] [id number] [place] [address]- 7975 Sep, [facility] [place] [facility] [address] [id number] [place] [address]- 6074 Sep, [facility] [place] [facility] [address] [id number] [place] [address]- 8749 Sep, [facility] [place] [facility] [address] [id number] [place] [address]- 9769 Sep, [facility] [place] [facility] [address] [id number] [place] [address]- 2412 Sep, [facility] [place] [facility] [address] [id number] [place] [address]- 1448 Sep, [facility] [place] [facility] [address] [id number] [place] [address]- 6465 Jul, [facility] [place] [facility] [address] [id number] [place] [address]- 9535 Jul, [facility] [place] [facility] [address] [id number] [place] [address]- 9367 Jul, [facility] [place] [facility] [address] [id number] [place] [address]- 6230 Jul, [facility] [place] [facility] [address] [id number] [place] [address]- 5285 Jun, [facility] [place] [facility] [address] [id number] [place] [address]- 9648 Jun, [facility] [place] [facility] [address] [id number], [place] [address]- 2942 15 Jun, 2013 [facility] [place] [facility] [address] [id number] [place] [address]- 2669 15 Jun, 2013 [facility] [place] [facility] [address] [id number] [place] [address] Jun, [facility] [place] [facility] [address] [id number] [place] [address] Jun, [facility] [place] [facility] [address] [id number] [place] [address] Apr, [facility] [place] [facility] [address] [id number] [place] [address] Apr, [facility] [place] [facility] [address] [id number] [place] [address] Apr, [facility] [place] [facility] [address] [id number] [place] [address] Apr, [facility] [place] [facility] [address] [id number] [place] [address] Apr, [facility] [place] [facility] [address] [id number] [place] [address] Apr, [facility] [place] [facility] [address] [facility] [id number] [place] [address] Apr, [facility] [place] [facility] [address] [id number], [place] [address] Apr, [facility] [facility] [address] [id number], [place] [address] Mar, [facility] [place] [facility] [address] [id number] [place] [address] Mar, [facility] [place] [facility] [address] [id number] [place] [address] Feb, [facility] [place] [facility] [address] [facility] [id number] [place] [address] Feb, [facility] [place] [facility] [address] [id number] [place] [address] Dec, [facility] [place] [facility] [address] [id number] [place] [address] Dec, [facility] [place] [facility] [address] [id number] [place] [address] Dec, [facility] [place] [facility] [address] [id number] [place] [address] Dec, [facility] [place] [facility] [address] [id number] [place] [address] Dec, [facility] [place] [facility] [address] [id number] [place] [address] Dec, [facility] [facility] [address] [id number] [place] [address] Dec, [facility] [place] [facility] [address] [id number] [place] [address] Nov, [facility] [address] [id number] [place] [address] 2011 Nov, [facility] [facility] [address] [id number] [place] [address] Nov, [facility] [facility] [address] [id number] [place] [address] Nov, [facility] [facility] [address] [id number] [place] [address] October, [facility] [facility] [address] [id number] [place] [address] October, [facility] [place] [facility] [address] [id number] [place] [address] October, [facility] [address] [id number] [place] [address] October, [facility] [place] [facility] [address] [id number] [place] [address] 03 Sep, 2012 [facility] [address] [id number] [place] [address] 30 Aug, 2012 [facility] [place] [facility] [address] [id number] [place] [address] 29 Aug, 2012 [facility] [place] [facility] [address] [id number] [place] [address] 22 Aug, 2012 [facility] [place] [facility] [address] [id number] [place] [address] 21 Aug, 2012 [facility] [place] [facility] [address] [id number] [place] [address] 13 Aug, 2012 [facility] [facility] [address] [id number] [place] [address] 27 Jul, 2012 [facility] [facility] [address] [facility] [id number] [place] [address] Jul, [facility] [place] [facility] [address] [id number] [place] [address] 26 Jul, 2012 [facility] [facility] [address] [facility] [id number] [place] [address] 25 Jul, 2012 [facility] [facility] [address] [facility] [facility] [id number] [place] [address] 25 Jul, 2012 [facility] [place] [facility] [address] [facility] [id number] [place] [address] 23 Jul, 2012 [facility] [place] [facility] [address] [facility] [id number] [place] [address] 20 Jul, 2012 [facility] [place] [facility] [address] [facility] [id number] [place] [address] 15 Jul, 2012 [facility] [place] [facility] [address] [facility] [id number] [place] [address] 98[address] 14 Jul, 2012 [facility] [place] [facility] [address] [facility] [id number] [place] [address] 97[address] 11 Jul, 2012 [facility] [place] [facility] [address] [id number] [place] [address] Jun, [facility] [place] [facility] [address] [id number] [place] [address] 9[address] Jun, [facility] [place] [facility] [address] [id number] [place] [address] 60[address] Jun, [facility] [place] [facility] [address] [id number] [place] [address] May, [facility] [place] [facility] [address] [id number] [place] [address] 9279 May, [facility] [place] [facility] [address] [id number] [place] [address] 1599 Apr, [facility] [place] [facility] [address] [id number] [place] [address] 73[address] Apr, [facility] [place] [facility] [address] [id number] [place] [address] 280[address] Apr, [facility] [place] [facility] [address] [id number] [place] [address] 72[address] Apr, [facility] [place] [facility] [address] [id number] [place] [address] 74[address] Apr, [facility] [place] [facility] [address] [id number] [place] [address] 4069 Apr, [facility] [place] [facility] [address] [id number] [place] [address] 90[address] Apr, [facility] [place] [facility] [address] [id number] [place] [address] 4868 Apr, [facility] [place] [facility] [address] [id number] [place] [address] 2437 Mar, [facility] [place] [facility] [address] [id number] [place] [address] 6[address] Mar, [facility] [place] [facility] [address] [id number] [place] [address] 3191 Mar, [facility] [place] [facility] [address] [id number] [place] [address] 9951 Mar, [facility] [place] [facility] [address] [id number] [place] [address] 8696 Mar, [facility] [place] [facility] [address] [id number] [place] [address] Mar, [facility] [place] [facility] [address] [id number] [place] [address] 8117 Mar, [facility] [place] [facility] [address] [id number] [place] [address] 7[address] Mar, [facility] [place] [facility] [address] [id number] [place] [address] 4046 Mar, [facility] [place] [facility] [address] [id number] [place] [address] 1266 Feb, [facility] [place] [facility] [address] [id number], [place] [address] Jan, [facility] [place] [facility] [address] [id number] [place] [address] 4757 Jan, [facility] [place] [facility] [address] [id number] [place] [address] 1267 Jan, [facility] [place] [facility] [address] [id number], [place] [address] Dec, [facility] [place] [facility] [address] [id number], [place] [address] Dec, [facility] [place] [facility] [address] [id number] [place] [address] 9539 Dec, [facility] [place] [facility] [address] [facility] [id number], [place] [address] Nov, [facility] [place] [facility] [address] [id number] [place] [address] 25[address] October, [facility] [place] [facility] [address] [id number] [place] [address] October, [facility] [address] [id number] [place] [address] 6626 October, [facility] [place] [facility] [address] [id number] [place] [address] 0896 October, [facility] [address] [id number] [place] [address] 7[address] October, [facility] [address] [id number] [place] [address]229 30 Sep, 2011 [facility] [address] [id number] [place] [address] 2797 Sep, [facility] [address] [id number] [place] [address]- 2021 Sep, [facility] [address] [id number] [place] [address] 9418 Sep, [facility] [address] [id number] [place] [address] 2[address] Sep, [facility] [address] [id number] [place] [address] 7883 Sep, [facility] [address] [id number] [place] [address]- 28[address] Sep, [facility] [place] [facility] [address] [id number] [place] [address] 6377 Aug, [facility] [place] [facility] [address] [id number] [place] [address] 0762 Aug, [facility] [place] [facility] [address] [id number] [place] [address] 7713 Aug, [facility] [place] [facility] [address] [id number] [place] [address] 8225 Aug, [facility] [place] [facility] [address] [id number] [place] [address]- 2282 Aug, [facility] [place] [facility] [address] [id number] [place] [address]- 9542 19 Aug, 2011 [facility] [place] [facility] [address] [id number] [place] [address]- 2066 16 Aug, 2011 [facility] [place] [facility] [address] [id number] [place] [address]- 4096 15 Aug, 2011 [facility] [place] [facility] [address] [id number] [place] [address]- 6196 15 Aug, 2011 [facility] [place] [facility] [address] [id number] [place] [address]- 4149 14 Aug, 2011 [facility] [place] [facility] [address] [id number] [place] [address]- 3047 12 Aug, 2011 [facility] [place] [facility] [address] [id number] [place] [address]- 6986 08 Aug, 2011 [facility] [place] [facility] [address] [id number] [place] [address]- 3105 15 Jul, 2011 [facility] [place] [facility] [address] [id number] [place] [address]- 1671 15 Jul, 2011 [facility] [place] [facility] [address] [id number] [place] [address]- 2087 14 Jul, 2011 [facility] [place] [facility] [address] [id number] [place] [address]- 2306 06 Jul, 2011 [facility] [place] [facility] [address] [id number] [place] [address]- 4280 02 Jul, 2011 [facility] [place] [facility] [address] [id number] [place] [address]- 2560 Jun, [facility] [place] [facility] [address] [id number] [place] [address]- 5186 Jun, [facility] [place] [facility] [address] [id number] [place] [address]- 5246 Jun, [facility] [place] [facility] [address] [id number] [place] [address]- 2343 29 May, 2011 [facility] [place] [facility] [address] [id number] [place] [address]- 0724 21 May, 2011 [facility] [place] [facility] [address] [id number] [place] [address]- 8247 19 May, 2011 [facility] [place] [facility] [address] [id number] [place] [address]- 2775 19 May, 2011 [facility] [place] [facility] [address] [id number] [place] [address]- 8380 14 May, 2011 [facility] [place] [facility] [address] [id number] [place] [address]- 6448 16 Apr, 2011 [facility] [place] [facility] [address] [id number] [place] [address]- 9608 16 Apr, 2011 [facility] [place] [facility] [address] [id number] [place] [address]- 0123 15 Apr, 2011 [facility] [place] [facility] [address] [id number] [place] [address]- 8834 14 Apr, 2011 [facility] [place] [facility] [address] [id number] [place] [address]- 8428 25 Mar, 2011 [facility] [place] [facility] [address] [facility] [id number] [place] [address]- 9940 24 Mar, 2011 [facility] [place] [facility] [address] [id number] [place] [address]- 1327 19 Mar, 2011 [facility] [place] [facility] [address] [id number], [place] [address] 8076 19 Mar, 2011 [facility] [place] [facility] [address] [id number] [place] [address]- 9117 17 Mar, 2011 [facility] [place] [facility] [address] [facility] [id number] [place] [address]- 0076 17 Mar, 2011 [facility] [place] [facility] [address] [facility] [id number][place] [address] [address] 16 Feb, 2011 [facility] [place] [facility] [address] [id number], [place] [address] 116[address] Nov, [facility] [id number], [place] [address] Aug, [facility] [id number], [place] [address] 3[address] Apr, [facility] [id number], [place] [address]- 1557 Mar, [facility] [id number], [place] [address]- 4989 Apr, [facility] [id number], [place] [address]- 1763 Apr, [facility] [id number], [place] [address]- 5[address] Sep, [facility] [id number], [place] [address] 0049 Mar, IMMUNIZATIONS No Known Immunizations SOCIAL HISTORY Never Assessed REASON FOR VISIT Medication refill request/ PLAN OF CARE VITAL SIGNS MEDICATIONS Unknown [...]
--- OUTSIDE RECORDS SUMMARY | 2018-06-19 13:25 | XMS REPORT ---
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 [employer] Name Role Phone ARISTEO ARAYA Unavailable PROBLEMS Type Condition ICD9-CM Code EZT28-YZ Code Onset Dates Condition Status SNOMED Code Problem Non morbid obesity due to excess calories E66.09 Active 937509496 Problem Unsteady gait R26.81 Active 29050182 Problem Eosinophilic colitis K52.82 Active 43744130 Problem Acute right-sided low back pain with right-sided sciatica M54.41 Active 136078562 Problem Paresthesias in left hand R20.2 Active 886813990 Problem Non morbid obesity E66.9 Active 882960734 Problem Other chronic gastritis without hemorrhage K29.50 Active 0854238 Problem GERD with esophagitis K21.0 Active 820764073 Problem Sacral pain M53.3 Active 52035395 Problem Fibromyalgia M79.7 Active 627565262 Problem Other chronic pain G89.29 Active 27599238 Problem Bronchitis J40 Active 73001061 Problem Migraine without aura and without status migrainosus, not intractable G43.009 Active 310122951 Problem Hypertension, benign I10 Active 15217382 ALLERGIES Substance Reaction Event Type Date Status Singulair Unknown Drug Allergy October, Active Lisinopril Unknown Drug Allergy October, Active metals Unknown Non Drug Allergy October, Active ENCOUNTERS Encounter Location Date Diagnosis [facility] [address] [facility] [id number] [address] Jan, [facility] [address] [id number] [address] Jan, Impacted cerumen of right ear H61.21 [facility] [address] [id number] [address] Jan, Bilious vomiting with nausea R11.14 ; BMI 40.0-44.9, adult Z68.41 ; Hypertension, benign I10 and Fibromyalgia M79.7 [place] [address] [address]- 2419 Dec, Bilious vomiting with nausea R11.14 and Tachycardia R00.0 [place] [address] 76069- 9580 Nov, [place] [address] 22821- 0740 Nov, BMI 40.0-44.9, adult Z68.41 ; Leg edema R60.0 and Hypertension, benign I10 [address] [address]- [address] Nov, [place] [address] 98932- 8464 October, Thoracic neuritis M54.14 [place] [address] 68137- 3791 October, Acute right hip pain M25.551 [place] [address] 35831- 3397 October, [place] [address] 43616- 4689 Sep, Hypertension, benign I10 and Acute right-sided low back pain with right-sided sciatica M54.41 [place] [address] 18461- 7924 Sep, Fibromyalgia M79.7 and Hypertension, benign I10 [place] [address] 48981- 0558 Aug, [place] [address] 65815- 8603 Aug, Fibromyalgia M79.7 ; Frequent headaches R51 and Non morbid obesity due to excess calories E66.09 [place] [address] [place] [address] 359[address] Jul, [place] [address] 86175- 3876 Jul, Fibromyalgia M79.7 [place] [address] 72793- 0520 Jul, Viral gastroenteritis A08.4 and Paresthesias in left hand R20.2 [place] [address] 43438- 5179 Jun, Non morbid obesity due to excess calories E66.09 [place] [address] 19743- 8671 Jun, [place] [address] 59577- 3240 Jun, Fibromyalgia M79.7 [place] [address] 86776- 0661 May, Non morbid obesity due to excess calories E66.09 and Hypertension, benign I10 [place] [address] 85235- 6450 04 May, 2017 GERD with esophagitis K21.0 [place] [address] 60945- 0156 Apr, BMI 40.0-44.9, adult Z68.41 and Non morbid obesity E66.9 [place] [address] 36509- 7450 Mar, Unsteady gait R26.81 [place] [address] 55206- 7494 Mar, Unsteady gait R26.81 ; Sacral pain M53.3 and Fibromyalgia M79.7 [place] [address] 50290- 9740 Mar, Non morbid obesity due to excess calories E66.09 [place] [address] 98432- 8663 28 Feb, 2017 Abdominal pain, generalized R10.84 [place] [address] 64540- 0287 18 Feb, 2017 Other chronic gastritis without hemorrhage K29.50 and H. pylori infection A04.8 [place] [address] 54637- 6885 07 Feb, 2017 Back pain 724.5 ; Pain in left shoulder M25.512 ; Fibromyalgia M79.7 and Non morbid obesity due to excess calories E66.09 [place] [address] 26891- 3541 07 Feb, 2017 BMI 40.0-44.9, adult Z68.41 [place] [address] 53727- 8374 Jan, Dysuria R30.0 and Acute cystitis with hematuria N30.01 [place] [address] 41550- 8200 Jan, Dysuria R30.0 [place] [address] 57238- 6148 Dec, Fibromyalgia M79.7 [place] [address] 99352- 6032 Dec, Screening for diabetes mellitus Z13.1 and Fibromyalgia M79.7 [place] [address] 53714- 7856 Dec, Fibromyalgia M79.7 [place] [address] 65793- 3126 Dec, [place] [address] 32084- 5918 05 Dec, 2016 Fibromyalgia M79.7 [place] [address] 91463- 1676 Nov, Foreign body in foot, left, initial encounter S90.852A [place] [id number] [place] [address] 02029- 4290 Nov, Viral gastroenteritis A08.4 [facility] [address] 64696- 2359 Nov, Fall, initial encounter W19.XXXA ; Post-traumatic headache, unspecified, not intractable G44.309 ; Dizziness R42 ; Unsteady gait R26.81 ; Sacral pain M53.3 and Non morbid obesity due to excess calories E66.09 [place] [address] 84446- 5858 Nov, [place] [address] 40316- 5904 Nov, [place] [address] 84089- 0783 October, Non morbid obesity due to excess calories E66.09 and Hypertension, benign I10 [place] [address] 38953- 5434 October, Fibromyalgia M79.7 [facility] [address] 23162- 2349 Sep, [facility] [address] 26584- 8962 Sep, [facility] [address] 01687- 3660 Sep, Eosinophilic colitis K52.82 [facility] [address] 09630- 8625 Aug, Bronchitis J40 [facility] [address] 32976- 8328 Aug, [facility] [address] 10326- 7123 Aug, Pain in left shoulder M25.512 ; Bronchitis J40 ; Acute midline back pain, unspecified location M54.9 ; Migraine without aura and without status migrainosus, not intractable G43.009 ; Fibromyalgia M79.7 and Pain of upper abdomen R10.10 [facility] [id number] [place] [address] 54632- 6454 Aug, [place] [address] [id number] [place] [address] 30574- 1858 Aug, [place] [address] [id number] [place] [address] 11957- 3144 Jul, Other viral agents as the cause of diseases classified elsewhere B97.89 and Acute upper respiratory infection, unspecified J06.9 [place] [address] [address] [id number] [place] [address] 26905- 2169 Jun, [facility] [id number] [place] [address] 17849 -3021 Jun, [facility] [id number] [place] [address] 51955- 5073 May, Abscess L02.91 [place] [address] [id number] [place] [address] 63652- 0716 May, Acute midline low back pain without sciatica M54.5 [facility] IN [facility] [id number] [place] [address] 63440 -5177 May, [place] [address] [id number] [place] [address] 29420- 2711 Apr, [place] [address] [id number] [place] [address] 64287- 0851 Apr, Other chronic pain G89.29 ; Pain in right shoulder M25.511 and Pain in left shoulder M25.512 [place] [address] [id number] [place] [address] 57749- 2047 Apr, [place] [address] [id number] [place] [address] 79451- 4722 Apr, [facility] [address] [address]- 2407 10 Apr, 2016 Fibromyalgia M79.7 ; Other chronic pain G89.29 and Pain in left shoulder M25.512 [facility] [address] [address]- 0781 04 Apr, 2016 Bronchitis J40 [facility] [id number] [place] [address] 74115- 6697 27 Mar, 2016 [facility] [id number] [id number] Mar, [facility] [id number] [place] [address] 42707- 3829 29 Feb, 2016 [facility] [id number] [place] [address] 53161- 4812 26 Feb, 2016 [facility] [id number] [place] [address] 72520- 1632 23 Feb, 2016 [facility] [id number] [place] [address] 39214- 7913 22 Feb, 2016 [facility] [id number] [place] [address] 57308- 9665 20 Feb, 2016 [facility] [id number] [place] [address] 97566- 3720 19 Feb, 2016 [facility] [id number] [place] [address] 06721- 7792 19 Feb, 2015 Dysuria R30.0 [facility] [id number] [place] [address] 76256- 1976 19 Feb, 2015 Dysuria R30.0 [facility] [id number] [place] [address] 62719- 4673 16 Feb, 2016 [facility] [address] [address]- 1837 15 Feb, 2016 Migraine, unspecified, not intractable, without status migrainosus G43.909 and Fibromyalgia M79.7 [facility] [id number] [place] [address] 33580- 3632 Feb, Migraine without aura and without status migrainosus, not intractable G43.009 [facility] [id number] [place] [address] 97122- 3644 Jan, [facility] [address] 58422- 7249 Jan, [facility] [id number] [place] [address] 67176- 2651 Jan, [facility] [address] 49984- 7985 Jan, [facility] [id number] [place] [address] 01690- 8165 Jan, Unsteady gait R26.81 ; Fibromyalgia M79.7 and Family history of rheumatoid arthritis Z82.61 [facility] [id number] [place] [address] 22987- 5028 Dec, [place] [address] 86421- 6207 Dec, [facility] [id number] [place] [address] 68744- 8331 Nov, Pain in left shoulder M25.512 [facility] [id number] [place] [address] 85471- 8825 October, Viral gastroenteritis A08.4 [facility] [id number] [place] [address] 85080 -8214 October, Pain of upper abdomen R10.10 [facility] [id number] [place] [address] 11740- 1089 October, Acute midline back pain, unspecified location M54.9 [facility] [id number] [place] [address] 85691- 0722 Aug, Elbow pain, right M25.521 [facility] [id number] [place] [address] 44790- 5992 Aug, Elbow pain, right M25.521 [facility] [id number] [place] [address] 01332- 8242 Aug, Pain of right upper extremity M79.601 [facility] [id number] [place] [address] 09414- 4356 Jun, Lumbar neuritis M54.16 [facility] [id number] [place] [address] 17834- 1003 May, [place] [id number] [place] [address] 92402- 4165 Apr, Non morbid obesity due to excess calories E66.09 [place] [id number] [place] [address] 54602- 2108 Apr, Non morbid obesity due to excess calories E66.09 and Thoracic neuritis M54.14 [place] [id number] [place] [address] 25519- 4496 Apr, Elbow pain, right M25.521 [facility] [address] [place] [address] 46633- 1641 Mar, Right elbow pain M25.521 [facility] [id number] [place] [address] 97473- 1049 Mar, [facility] [id number] [place] [address] 43887- 3529 30 Feb, 2015 Urinary tract infection, site not specified 599.0 [facility] [address] [place] [address] 87752- 2446 Feb, [facility] [address] [place] [address] 81541- 6914 Jan, Spider bite 989.5 [facility] [id number] [place] [address] 39409- 1974 Jan, Spider bite 989.5 [facility] [address] 09709- 1742 Jan, Spider bite 989.5 [facility] [id number] [place] [address] 17942- 3249 Nov, Back pain 724.5 and Diabetes 250.00 [facility] [address] 75963- 0192 Nov, Back pain 724.5 and Muscle spasm of back 724.8 [facility] [address] 53255- 4519 Nov, Alternating constipation and diarrhea 787.99 [facility] [address] 06990- 2461 October, Back pain 724.5 and Hip pain 719.45 [facility] [id number] [place] [address] 44732- 5660 Sep, [facility] [address] 43436- 1363 Sep, [facility] [id number] [place] [address] 09225- 8167 Aug, [facility] [id number] [place] [address] 85900- 9056 Aug, [facility] [id number] [place] [address] 96811- 1872 Aug, [facility] [id number] [place] [address] 80834- 5193 Aug, [facility] [id number] [place] [address] 467201- 2746 Aug, [facility] [id number] [place] [address] 89844- 6895 Aug, [facility] [place] [facility] [address] [id number] [place] [address]- 2347 Jul, [facility] [place] [facility] [address] [id number] [place] [address]- 5387 Jul, [facility] [place] [facility] [address] [id number] [place] [address]- 2247 Jun, [facility] [place] [facility] [address] [id number] [place] [address]- 8003 Jun, [facility] [place] [facility] [address] [id number] [place] [address]- 5910 Jun, [facility] [place] [facility] [address] [id number] [place] [address]- 3618 Jun, [facility] [place] [facility] [address] [id number] [place] [address]- 2263 Jun, [facility] [place] [facility] [address] [id number] [place] [address]- 9416 Jun, [facility] [place] [facility] [address] [id number] [place] [address]- 0704 Jun, [facility] [place] [facility] [address] [id number] [place] [address]- 8740 May, [facility] [place] [facility] [address] [id number] [place] [address]- 4824 May, [facility] [place] [facility] [address] [id number] [place] [address]- 1583 May, [facility] [place] [facility] [address] [id number] [place] [address]- 2763 May, [facility] [place] [facility] [address] [id number] [place] [address]- 3433 Apr, [facility] [place] [facility] [address] [id number] [place] [address]- 9400 Apr, [facility] [place] [facility] [address] [id number] [place] [address]- 1177 Mar, [facility] [place] [facility] [address] [id number] [place] [address]- 9906 Mar, [facility] [place] [facility] [address] [id number] [place] [address]- 7038 Mar, [facility] [place] [facility] [address] [id number] [place] [address]- 0166 Mar, [facility] [place] [facility] [address] [id number] [place] [address]- 6071 Mar, [facility] [place] [facility] [address] [id number] [place] [address]- 4376 Mar, [facility] [place] [facility] [address] [id number] [place] [address]- 7873 Mar, [facility] [place] [facility] [address] [id number] [place] [address]- 5452 Mar, [facility] [place] [facility] [address] [id number] [place] [address]- 3975 Mar, [facility] [place] [facility] [address] [id number] [place] [address]- 8891 Mar, [facility] [place] [facility] [address] [id number] [place] [address]- 9771 Feb, [facility] [place] [facility] [address] [id number] [place] [address]- 6391 Feb, [facility] [place] [facility] [address] [id number] [place] [address]- 4615 Jan, [facility] [place] [facility] [address] [id number] [place] [address]- 2839 Jan, [facility] [place] [facility] [address] [id number] [place] [address]- 2594 Jan, [facility] [place] [facility] [address] [id number] [place] [address]- 4160 Jan, [facility] [place] [facility] [address] [id number] [place] [address]- 5749 Jan, [facility] [place] [facility] [address] [id number] [place] [address]- 4796 Jan, [facility] [place] [facility] [address] [id number] [place] [address]- 1137 Jan, [facility] [place] [facility] [address] [id number] [place] [address]- 2384 Jan, [facility] [place] [facility] [address] [id number] [place] [address]- 3389 Jan, [facility] [place] [facility] [address] [id number] [place] [address]- 8673 Jan, [facility] [place] [facility] [address] [id number] [place] [address]- 3660 Dec, [facility] [place] [facility] [address] [id number] [place] [address]- 7004 Dec, [facility] [place] [facility] [address] [id number] [place] [address]- 4138 Dec, [facility] [place] [facility] [address] [id number] [place] [address]- 2973 Dec, [facility] [place] [facility] [address] [id number] [place] [address]- 0090 Nov, [facility] [place] [facility] [address] [id number] [place] [address]- 5787 Nov, [facility] [place] [facility] [address] [id number] [place] [address]- 4631 Nov, [facility] [place] [facility] [address] [id number] [place] [address]- 0093 Nov, [facility] [place] [facility] [address] [id number] [place] [address]- 2689 October, [facility] [place] [facility] [address] [id number] [place] [address]- 5273 October, [facility] [place] [facility] [address] [id number] [place] [address]- 2020 Sep, [facility] [place] [facility] [address] [id number] [place] [address]- 7907 Sep, [facility] [place] [facility] [address] [id number] [place] [address]- 5418 Sep, [facility] [place] [facility] [address] [id number] [place] [address]- 8916 Sep, [facility] [place] [facility] [address] [id number] [place] [address]- 0632 Sep, [facility] [place] [facility] [address] [id number] [place] [address]- 9754 Sep, [facility] [place] [facility] [address] [id number] [place] [address]- 6120 Sep, [facility] [place] [facility] [address] [id number] [place] [address]- 6162 Sep, [facility] [place] [facility] [address] [id number] [place] [address]- 4735 Sep, [facility] [place] [facility] [address] [id number] [place] [address]- 5752 Sep, [facility] [place] [facility] [address] [id number] [place] [address]- 6828 Jul, [facility] [place] [facility] [address] [id number] [place] [address]- 0690 Jul, [facility] [place] [facility] [address] [id number] [place] [address]- 0925 Jul, [facility] [place] [facility] [address] [id number] [place] [address]- 4507 Jul, [facility] [place] [facility] [address] [id number] [place] [address] Jun, [facility] [place] [facility] [address] [id number] [place] [address] 28 Jun, 2013 [facility] [place] [facility] [address] [id number] [place] [address] Jun, [facility] [place] [facility] [address] [id number] [place] [address] 15 Jun, 2013 [facility] [address] [id number] [place] [address] 14 Jun, 2013 [facility] [place] [facility] [address] [id number] [place] [address] Jun, [facility] [place] [facility] [address] [id number] [place] [address] Apr, [facility] [place] [facility] [address] [id number] [place] [address] Apr, [facility] [place] [facility] [address] [id number] [place] [address] Apr, [facility] [place] [facility] [address] [id number] [place] [address] Apr, [facility] [place] [facility] [address] [id number] [place] [address] Apr, [facility] [place] [facility] [address] [facility] [id number] [place] [address] Apr, [facility] [place] [facility] [address] [id number] [place] [address] Apr, [facility] [place] [facility] [address] [id number] [place] [address] Apr, [facility] [place] [facility] [address] [id number] [place] [address] Mar, [facility] [place] [facility] [address] [id number] [place] [address] Mar, [facility] [place] [facility] [address] [id number] [place] [address] Feb, [facility] [place] [facility] [address] [id number] [place] [address] Feb, [facility] [address] [id number] [place] [address] Dec, [facility] [address] [id number] [place] [address] Dec, [facility] [address] [id number] [place] [address] Dec, [facility] [address] [id number] [place] [address] Dec, [facility] [address] [id number] [place] [address] Dec, [facility] [address] [id number] [place] [address] Dec, [facility] [address] [id number] [place] [address] Dec, [facility] [address] [id number] [place] [address] Nov, [facility] [address] [id number] [place] [address] Nov, [facility] [address] [id number] [place] [address] Nov, [facility] [place] [facility] [address] [id number] [place] [address] Nov, [facility] [place] [facility] [address] [id number] [place] [address] October, [facility] [place] [facility] [address] [id number] [place] [address] October, [facility] [place] [facility] [address] [id number] [place] [address] October, [facility] [address] [id number] [place] [address] October, [facility] [address] [id number] [place] [address] Sep, [facility] [place] [facility] [address] [id number] [place] [address] 30 Aug, 2012 [facility] [address] [facility] [id number] [place] [address] Aug, [facility] [place] [facility] [address] [id number] [place] [address] Aug, [facility] [address] [id number] [place] [address] Aug, [facility] [address] [facility] [id number] [place] [address] Aug, [facility] [address] [facility] [id number] [place] [address] 27 Jul, 2012 [facility] [place] [facility] [address] [facility] [id number] [place] [address] 27 Jul, 2012 [facility] [address] [id number] [address] 26 Jul, 2012 [facility] [place] [facility] [address] [facility] [id number] [place] [address] Jul, [facility] [place] [facility] [address] [facility] [id number] [place] [address] Jul, [facility] [place] [facility] [address] [facility] [id number] [place] [address] 23 Jul, 2012 [facility] [place] [facility] [address] [facility] [id number] [place] [address] 20 Jul, 2012 [facility] [place] [facility] [address] [facility] [id number] [place] [address] 15 Jul, 2012 [facility] [place] [facility] [address] [facility] [id number] [place] [address]163 14 Jul, 2012 [facility] [place] [facility] [address] [id number] [place] [address] Jul, [facility] [place] [facility] [address] [id number] [place] [address] Jun, [facility] [place] [facility] [address] [id number] [place] [address] Jun, [facility] [place] [facility] [address] [id number] [place] [address] Jun, [facility] [place] [facility] [address] [id number] [place] [address] May, [facility] [place] [facility] [address] [id number] [place] [address] May, [facility] [place] [facility] [address] [id number] [place] [address] 8516 Apr, [facility] [place] [facility] [address] [id number] [place] [address] Apr, [facility] [place] [facility] [address] [id number] [place] [address] Apr, [facility] [place] [facility] [address] [id number] [place] [address] 488[address] Apr, [facility] [place] [facility] [address] [id number] [place] [address] 7474 Apr, [facility] [place] [facility] [address] [id number] [place] [address] Apr, [facility] [place] [facility] [address] [id number] [place] [address] 35[address] Apr, [facility] [place] [facility] [address] [id number] [place] [address] 3931 Apr, [facility] [place] [facility] [address] [id number] [place] [address] Mar, [facility] [place] [facility] [address] [id number] [place] [address] Mar, [facility] [place] [facility] [address] [id number] [place] [address] 1713 Mar, [facility] [place] [facility] [address] [id number] [place] [address] 8169 Mar, [facility] [place] [facility] [address] [id number] [place] [address] 4606 Mar, [facility] [place] [facility] [address] [id number] [place] [address] 0278 Mar, [facility] [place] [facility] [address] [id number] [place] Mar, [facility] [place] [facility] [address] [id number] [place] [address] 49[address] Mar, [facility] [place] [facility] [address] [id number] [place] [address] 3686 Mar, [facility] [place] [facility] [address] [id number] [place] [address] 5[address] Feb, [facility] [place] [facility] [address] [id number] [place] [address] 83[address] Jan, [facility] [place] [facility] [address] [id number] [place] [address] 269[address] Jan, [facility] [place] [facility] [address] [id number] [place] [address] 8125 Jan, [facility] [place] [facility] [address] [id number] [place] [address] 4666 Dec, [facility] [place] [facility] [address] [id number] [place] [address] Dec, [facility] [place] [facility] [address] [id number] [place] [address] Dec, [facility] [place] [facility] [address] [id number] [place] [address] 56[address] Nov, [facility] [place] [facility] [address] [id number] [place] [address] October, [facility] [address] [id number] [place] [address] 58[address] October, [facility] [place] [facility] [address] [id number] [place] [address] 9296 October, [facility] [address] [id number] [place] [address] 7[address] October, [facility] [address] [id number] [place] [address] October, [facility] [address] [id number] [place] [address] 3299 30 Sep, 2011 [facility] [address] [id number] [place] [address] 6[address] Sep, [facility] [address] [id number] [place] [address] 6[address] Sep, [facility] [address] [id number] [place] [address] 9[address] Sep, [facility] [address] [id number] [place] [address] 4888 Sep, [facility] [address] [id number] [place] [address] 5214 Sep, [facility] [place] [facility] [address] [id number] [place] [address] 8055 Sep, [facility] [address] [id number] [place] [address] 0622 Aug, [facility] [place] [facility] [address] [id number] [place] [address] 5312 Aug, [facility] [place] [facility] [address] [id number] [place] [address] Aug, [facility] [place] [facility] [address] [id number] [place] [address] 2067 Aug, [facility] [place] [facility] [address] [id number] [place] [address] 0951 20 Aug, 2011 [facility] [place] [facility] [address] [id number] [place] [address]- 3266 19 Aug, 2011 [facility] [place] [facility] [address] [id number] [place] [address]- 1450 16 Aug, 2011 [facility] [place] [facility] [address] [id number] [place] [address]- 5007 15 Aug, 2011 [facility] [place] [facility] [address] [id number] [place] [address]- 5326 15 Aug, 2011 [facility] [place] [facility] [address] [id number] [place] [address]- 9450 14 Aug, 2011 [facility] [place] [facility] [address] [id number] [place] [address]- 8942 12 Aug, 2011 [facility] [place] [facility] [address] [id number] [place] [address]- 9834 08 Aug, 2011 [facility] [place] [facility] [address] [id number] [place] [address]- 6828 15 Jul, 2011 [facility] [place] [facility] [address] [id number] [place] [address]- 3946 15 Jul, 2011 [facility] [place] [facility] [address] [id number] [place] [address]- 7845 14 Jul, 2011 [facility] [place] [facility] [address] [id number] [place] [address]- 9172 06 Jul, 2011 [facility] [place] [facility] [address] [id number] [place] [address]- 8908 02 Jul, 2011 [facility] [place] [facility] [address] [id number] [place] [address]- 6273 18 Jun, 2011 [facility] [place] [facility] [address] [id number] [place] [address]- 8285 04 Jun, 2011 [facility] [place] [facility] [address] [id number] [place] [address]- [address] Jun, [facility] [address] [id number] [place] [address]- 235[address] 29 May, 2011 [facility] [place] [facility] [address] [id number] [place] [address]- 7424 May, [facility] [address] [id number] [place] [address]- 0367 May, [facility] [place] [facility] [address] [id number] [place] [address]- 3227 19 May, 2011 [facility] [address] [id number] [place] [address]- 9951 14 May, 2011 [facility] [address] [id number] [place] [address]- 1444 16 Apr, 2011 [facility] [place] [facility] [address] [id number] [place] [address]- 7691 16 Apr, 2011 [facility] [address] [id number] [place] [address]- 9193 15 Apr, 2011 [facility] [place] [facility] [address] [id number] [place] [address]- 4191 14 Apr, 2011 [facility] [address] [facility] [id number] [place] [address]- 6780 25 Mar, 2011 [facility] [place] [facility] [address] [id number] [place] [address]- 0922 24 Mar, 2011 [facility] [place] [facility] [address] [id number] [place] [address]- 0549 Mar, [facility] [place] [facility] [address] [id number] [place] [address]- 8268 19 Mar, 2011 [facility] [place] [facility] [address] [id number] [place] [address]- 8694 17 Mar, 2011 [facility] [place] [facility] [address] [id number] [place] [address]- 7916 17 Mar, 2011 [facility] [address] [id number] [address] 16 Feb, 2011 [facility] [id number] [address] Nov, [facility] [address] [id number] [address] 8256 Aug, [facility] [address] [facility] [id number] [place] [address]- 6166 Apr, [facility] [id number] [place] [address]- 2992 Mar, [facility] [id number] [address]- 7816 Apr, [facility] [id number] [address]- 6116 Apr, [facility] [address] [id number] [address]- 0686 Sep, [facility] [address] [id number] [address]- 5291 Mar, IMMUNIZATIONS No Known Immunizations SOCIAL HISTORY Never Assessed REASON FOR VISIT PALS refill PLAN OF CARE VITAL SIGNS MEDICATIONS Medication Instructions Dosage Frequency Start Date End Date Duration Status Lyrica 150 MG Orally 3 times a [...]
--- OUTSIDE RECORDS SUMMARY | 2018-06-19 13:25 | XMS REPORT ---
Author Author ARISTEO ARAYA Organization [facility] Address [address] [place] [address] Care Team Providers Care Elevator Attendant Name Role Phone ARISTEO ARAYA Unavailable PROBLEMS Type Condition ICD9-CM Code [id number] Code Onset Dates Condition Status SNOMED Code Problem Non morbid obesity due to excess calories E66.09 Active 391034134 Problem Unsteady gait R26.81 Active 32602934 Problem Eosinophilic colitis K52.82 Active 82064710 Problem Acute right-sided low back pain with right-sided sciatica M54.41 Active 410293646 Problem Paresthesias in left hand R20.2 Active 631066940 Problem Non morbid obesity E66.9 Active 674067791 Problem Other chronic gastritis without hemorrhage K29.50 Active 6882018 Problem GERD with esophagitis K21.0 Active 196283942 Problem Sacral pain M53.3 Active 94282802 Problem Fibromyalgia M79.7 Active 168694145 Problem Other chronic pain G89.29 Active 85591592 Problem Bronchitis J40 Active 63122156 Problem Migraine without aura and without status migrainosus, not intractable G43.009 Active 732282837 Problem Hypertension, benign I10 Active 76871165 ALLERGIES Substance Reaction Event Type Date Status Singulair Unknown Drug Allergy October, Active Lisinopril Unknown Drug Allergy October, Active metals Unknown Non Drug Allergy October, Active ENCOUNTERS Encounter Location Date Diagnosis [facility] [address] [address] Jan, [facility] [id number] [place] [address]2684- 2790 Jan, Bilious vomiting with nausea R11.14 ; BMI 40.0-44.9, adult Z68.41 ; Hypertension, benign I10 and Fibromyalgia M79.7 [facility] [id number] [place] [address] 68594- 4421 Dec, Bilious vomiting with nausea R11.14 and Tachycardia R00.0 [place] [address] 20662- 4318 Nov, [facility] [address] 34511- 1329 Nov, BMI 40.0-44.9, adult Z68.41 ; Leg edema R60.0 and Hypertension, benign I10 [place] [address] 03907- 4479 Nov, [place] [address] 73043- 1376 October, Thoracic neuritis M54.14 [place] [address] 72953- 0391 October, Acute right hip pain M25.551 [place] [address] 65376- 3102 October, [facility] [address] 19192- 6820 Sep, Hypertension, benign I10 and Acute right-sided low back pain with right-sided sciatica M54.41 [place] [address] 19756- 4694 Sep, Fibromyalgia M79.7 and Hypertension, benign I10 [place] [address] [place] [id number] [place] [address] 73259- 0825 Aug, [place] [address] 36243- 6256 Aug, Fibromyalgia M79.7 ; Frequent headaches R51 and Non morbid obesity due to excess calories E66.09 [place] [address] 45393- 5702 Jul, [place] [address] 44974- 6520 Jul, Fibromyalgia M79.7 [place] [address] 56833- 8197 Jul, Viral gastroenteritis A08.4 and Paresthesias in left hand R20.2 [place] [address] 77333- 8293 Jun, Non morbid obesity due to excess calories E66.09 [place] [address] 85017- 4571 Jun, [place] [address] 01083- 9197 Jun, Fibromyalgia M79.7 [place] [address] 31242- 9868 May, Non morbid obesity due to excess calories E66.09 and Hypertension, benign I10 [place] [address] 45563- 8130 May, GERD with esophagitis K21.[address] 30007- 9060 Apr, BMI 40.0-44.9, adult Z68.41 and Non morbid obesity E66.[address] 31287- 4485 Mar, Unsteady gait R26.81 [place] [address] 70033- 6903 Mar, Unsteady gait R26.81 ; Sacral pain M53.3 and Fibromyalgia M79.[address] 02860- 0133 Mar, Non morbid obesity due to excess calories E66.09 [place] [address] 26718- 9880 Feb, Abdominal pain, generalized R10.84 [place] [address] [place] [id number] [place] [address] 20828- 8324 18 Feb, 2017 Other chronic gastritis without hemorrhage K29.50 and H. pylori infection A04.8 [place] [address] 65045- 2659 07 Feb, 2017 Back pain 724.5 ; Pain in left shoulder M25.512 ; Fibromyalgia M79.7 and Non morbid obesity due to excess calories E66.09 [place] [address] 07578- 0190 07 Feb, 2017 BMI 40.0-44.9, adult Z68.41 [place] [address] 81328- 6074 14 Jan, 2017 Dysuria R30.0 and Acute cystitis with hematuria N30.[address] 08915- 5288 Jan, Dysuria R30.0 [place] [address] 19664- 3644 Dec, Fibromyalgia M79.7 [place] [address] 37838- 7003 Dec, Screening for diabetes mellitus Z13.1 and Fibromyalgia M79.7 [place] [address] 70651- 9030 Dec, Fibromyalgia M79.7 [place] [address] 15581- 9648 Dec, [place] [address] 84933- 8732 Dec, Fibromyalgia M79.7 [place] [address] 71091- 8773 Nov, Foreign body in foot, left, initial encounter S90.852A [place] [address] 73112- 6434 Nov, Viral gastroenteritis A08.4 [place] [address] [place] [id number] [place] [address] 89771- 9031 Nov, Fall, initial encounter W19.XXXA ; Post-traumatic headache, unspecified, not intractable G44.309 ; Dizziness R42 ; Unsteady gait R26.81 ; Sacral pain M53.3 and Non morbid obesity due to excess calories E66.09 [place] [address] 41123- 4030 Nov, [place] [address] 65573- 7931 Nov, [place] [address] 71506- 1187 October, Non morbid obesity due to excess calories E66.09 and Hypertension, benign I10 [address] 25212- 5500 October, Fibromyalgia M79.7 [place] [address] 34625- 8128 Sep, [place] [address] 42943- 5386 Sep, [place] [address] 70515- 5155 Sep, Eosinophilic colitis K52.82 [place] [address] 54202- 4773 Aug, Bronchitis J40 [place] [address] [place] [id number] [place] [address] 67620- 0696 Aug, [place] [address] 39041- 8560 Aug, Pain in left shoulder M25.512 ; Bronchitis J40 ; Acute midline back pain, unspecified location M54.9 ; Migraine without aura and without status migrainosus, not intractable G43.009 ; Fibromyalgia M79.7 and Pain of upper abdomen R10.10 [facility] [address] [place] [id number] [place] [address] 95822- 5775 Aug, [place] [address] [place] [id number] [place] [address] 35523- 7309 Aug, [facility] [address] [place] [id number] [place] [address] 13923- 6467 Jul, Other viral agents as the cause of diseases classified elsewhere B97.89 and Acute upper respiratory infection, unspecified J06.9 [place] [address] [place] [id number] [place] [address] 90070- 8394 Jun, [facility] [address] [place] [id number] [place] [address] 55381 -9797 Jun, [place] [address] [place] [id number] [place] [address] 78988- 5609 May, Abscess L02.91 [place] [address] [place] [id number] [place] [address] 07398- 9857 May, Acute midline low back pain without sciatica M54.5 [facility] [address] [place] [id number] [place] [address] 15612 -0168 May, [place] [address] [place] [id number] [place] [address] 92206- 6049 Apr, [place] [address] [id number] [place] [address] 43716- 5553 Apr, Other chronic pain G89.29 ; Pain in right shoulder M25.511 and Pain in left shoulder M25.512 [place] [address] 40208- 5057 Apr, [place] [address] [place] [id number] [place] [address] 93180- 1837 Apr, [place] [address] [id number] [place] [address] 73192- 8109 Apr, Fibromyalgia M79.7 ; Other chronic pain G89.29 and Pain in left shoulder M25.512 [facility] [address] [place] [address] 05261- 4561 04 Apr, 2016 Bronchitis J40 [facility] [address] [place] [address] 89701- 2541 27 Mar, 2016 [facility] [id number] [place] [address] [id number] Mar, [facility] [address] [place] [id number] [place] [address] 64666 2547 29 Feb, 2015 [facility] [address] [place] [id number] [place] [address] 19457- 7037 26 Feb, 2016 [facility] [address] [id number] [place] [address] 84735- 2544 23 Feb, 2015 [facility] [address] [id number] [place] [address] 82962- 8503 22 Feb, 2015 [facility] [address] [id number] [place] [address] 41635- 2540 20 Feb, 2015 [facility] [address] [place] [id number] [place] [address] 93081 2545 19 Feb, 2015 [facility] [address] [place] [address] 95548 2542 19 Feb, 2015 Dysuria R30.0 [facility] [address] [place] [id number] [place] [address] 16631 2549 19 Feb, 2015 Dysuria R30.0 [facility] [address] [place] [address] 91405 2545 16 Feb, 2015 [facility] [address] [place] [id number] [place] [address] 79569- 2548 15 Feb, 2016 Migraine, unspecified, not intractable, without status migrainosus G43.909 and Fibromyalgia M79.7 [facility] [address] [place] [id number] [place] [address] [id number]- 0339 06 Sep, 2016 Migraine without aura and without status migrainosus, not intractable G43.009 [facility] [address] [id number] [place] [address] 60973- 1649 Jan, [facility] [address] [place] [id number] [place] [address] 46159- 5779 Jan, [facility] [address] 07718- 6718 Jan, [facility] [address] 07183- 5493 Jan, [place] [address] 20446- 0852 Jan, Unsteady gait R26.81 ; Fibromyalgia M79.7 and Family history of rheumatoid arthritis Z82.61 [place] [address] 05819- 7798 Dec, [facility] [address] 31920- 8812 Dec, [facility] [address] [id number] [place] [address] 06658- 5798 Nov, Pain in left shoulder M25.512 [place] [address] [place] [id number] [place] [address] 41096- 7844 October, Viral gastroenteritis A08.4 [facility] [id number] [place] [address] 38330 -3892 October, Pain of upper abdomen R10.10 [facility] [address] [place] [id number] [place] [address] 06660- 1038 October, Acute midline back pain, unspecified location M54.9 [facility] [address] [place] [id number] [place] [address] 06332- 8839 Aug, Elbow pain, right M25.521 [place] [address] [place] [id number] [place] [address] 95106- 0634 Aug, Elbow pain, right M25.521 [facility] [address] [place] [place] [id number] [place] [address] 63454- 2703 Aug, Pain of right upper extremity M79.601 [facility] [address] [place] [id number] [place] [address] 83686- 5572 Jun, Lumbar neuritis M54.16 [place] [address] 58753- 7004 May, [place] [address] 69321- 5608 Apr, Non morbid obesity due to excess calories E66.09 [place] [address] 05932- 8429 Apr, Non morbid obesity due to excess calories E66.09 and Thoracic neuritis M54.14 [place] [address] 03365- 0903 Apr, Elbow pain, right M25.521 [place] [address] 62130- 2006 Mar, Right elbow pain M25.521 [facility] [address] [place] [id number] [place] [address] 16201- 9169 Mar, [place] [address] [place] [id number] [place] [address] 41529- 0140 Feb, Urinary tract infection, site not specified 599.0 [place] [address] [place] [id number] [place] [address] 48373- 9113 Feb, [place] [address] 42644- 5171 Jan, Spider bite 989.5 [place] [address] 74254- 3452 Jan, Spider bite 989.5 [facility] [address] [place] [address]- 3211 Jan, Spider bite 989.5 [facility] [address] 47758- 3990 10 Nov, 2014 Back pain 724.5 and Diabetes 250.00 [facility] [id number] [place] [address] 20986- 0947 03 Nov, 2014 Back pain 724.5 and Muscle spasm of back 724.8 [facility] [address] 26536- 9260 Nov, Alternating constipation and diarrhea 787.99 [facility] [address] 22535- 4024 October, Back pain 724.5 and Hip pain 719.45 [facility] [id number] [place] [address] 12793- 5549 Sep, [facility] [id number] [place] [address] 08144- 2636 Sep, [facility] [id number] [place] [address] 60634- 8883 Aug, [facility] [id number] [place] [address] 56261- 4980 Aug, [facility] [id number] [place] [address] 22960- 2952 Aug, [facility] [id number] [place] [address] 24681- 5604 Aug, [facility] [id number] [place] [address] 74494- 8445 Aug, [facility] [id number] [place] [address] 25100- 5778 Aug, [facility] [id number] [place] [address] 84596- 8836 Jul, [facility] [address] [place] [address]- 8802 Jul, [facility] [place] [facility] [address] [id number] [place] [address]- 6604 Jun, [facility] [place] [facility] [address] [id number] [place] [address]- 7374 16 Jun, 2014 [facility] [place] [facility] [address] [id number] [place] [address]- 4973 Jun, [facility] [place] [facility] [address] [id number] [place] [address]- 0096 Jun, [facility] [place] [facility] [address] [id number] [place] [address]- 6421 Jun, [facility] [place] [facility] [address] [id number] [place] [address]- 8007 Jun, [facility] [place] [facility] [address] [id number] [place] [address]- 5323 Jun, [facility] [place] [facility] [address] [id number] [place] [address]- 2005 May, [facility] [place] [facility] [address] [id number] [place] [address]- 6694 May, [facility] [place] [facility] [address] [facility] [id number] [place] [address]- 8568 May, [facility] [place] [facility] [address] [id number] [place] [address]- 0095 May, [facility] [place] [facility] [address] [id number] [place] [address]- 6512 Apr, [facility] [place] [facility] [address] [id number] [place] 0153 Apr, [facility] [place] [facility] [address] [id number] [place] [address]- 4213 Mar, [facility] [place] [facility] [address] [id number] [place] [address]- 7200 Mar, [facility] [place] [facility] [address] [id number] [place] [address]- 5540 Mar, [facility] [place] [facility] [address] [id number] [place] [address]- 1181 Mar, [facility] [place] [facility] [address] [id number] [place] [address]- 0183 Mar, [facility] [place] [facility] [address] [id number] [place] [address]- 7065 Mar, [facility] [place] [facility] [address] [id number] [place] [address]- 0470 Mar, [facility] [place] [facility] [address] [id number] [place] [address]- 5395 Mar, [facility] [place] [facility] [address] [id number] [place] [address]- 4138 Mar, [facility] [place] [facility] [address] [id number] [place] [address]- 5191 Mar, [facility] [place] [facility] [address] [id number] [place] [address]- 6901 Feb, [facility] [place] [facility] [address] [id number] [place] [address]- 3737 Feb, [facility] [place] [facility] [address] [id number] [place] [address]- 2262 Jan, [facility] [place] [facility] [address] [id number] [place] [address]- 8323 Jan, [facility] [place] [facility] [address] [id number] [place] [address]- 5666 Jan, [facility] [place] [facility] [address] [id number] [place] [address]- 9083 Jan, [facility] [place] [facility] [address] [id number] [place] [address]- 2265 Jan, [facility] [place] [facility] [address] [id number] [place] [address]- 8259 Jan, [facility] [place] [facility] [address] [id number] [place] [address]- 9882 Jan, [facility] [place] [facility] [address] [id number] [place] [address]- 2741 Jan, [facility] [place] [facility] [address] [id number] [place] [address]- 0075 Jan, [facility] [place] [facility] [address] [id number] [place] [address]- 7450 Jan, [facility] [place] [facility] [address] [id number] [place] [address]- 7706 Dec, [facility] [place] [facility] [address] [id number] [place] [address]- 4251 Dec, [facility] [place] [facility] [address] [id number] [place] [address]- 7770 Dec, [facility] [place] [facility] [address] [id number] [place] [address]- 9380 Dec, [facility] [place] [facility] [address] [id number] [place] [address]- 5438 Nov, [facility] [place] [facility] [address] [id number] [place] [address]- 9981 Nov, [facility] [place] [facility] [address] [id number] [place] [address]- 9016 Nov, [facility] [place] [facility] [address] [id number] [place] [address]- 8882 Nov, [facility] [place] [facility] [address] [id number] [place] [address]- 0396 October, [facility] [place] [facility] [address] [id number] [place] [address]- 0311 October, [facility] [place] [facility] [address] [id number] [place] [address]- 0976 Sep, [facility] [place] [facility] [address] [id number] [place] [address]- 7367 14 Sep, 2013 [facility] [place] [facility] [address] [id number] [place] [address]- 3794 Sep, [facility] [place] [facility] [address] [id number] [place] [address]- 1310 Sep, [facility] [place] [facility] [address] [id number] [place] [address]- 6801 Sep, [facility] [place] [facility] [address] [id number] [place] [address]- 1999 Sep, [facility] [place] [facility] [address] [id number] [place] [address]- 0826 Sep, [facility] [place] [facility] [address] [id number] [place] [address]- 9195 Sep, [facility] [place] [facility] [address] [id number] [place] [address]- 5472 Sep, [facility] [place] [facility] [address] [id number] [place] [address]- 9947 Sep, [facility] [place] [facility] [address] [id number] [place] [address]- 5100 Jul, [facility] [place] [facility] [address] [id number] [place] [address]- 1267 Jul, [facility] [place] [facility] [address] [id number] [place] [address]- 7824 Jul, [facility] [place] [facility] [address] [id number] [place] [address]- 2077 Jul, [facility] [place] [facility] [address] [id number] [place] [address]- 2953 Jun, [facility] [place] [facility] [address] [id number] [place] [address]- 1724 Jun, [facility] [place] [facility] [address] [id number] [place] [address]- 2481 15 Jun, 2013 [facility] [place] [facility] [address] [id number] [place] [address]- 1099 15 Jun, 2013 [facility] [place] [facility] [address] [id number] [place] [address]- 4473 Jun, [facility] [place] [facility] [address] [id number] [place] [address]- 0252 Jun, [facility] [place] [facility] [address] [id number], [place] [address]- 0553 Apr, [facility] [place] [facility] [address] [id number] [place] [address]- 8142 Apr, [facility] [place] [facility] [address] [id number], [place] [address] Apr, [facility] [place] [facility] [address] [id number] [place] [address] Apr, [facility] [place] [facility] [address] [id number], [place] [address] Apr, [facility] [place] [facility] [address] [id number], [place] [address] Apr, [facility] [place] [facility] [address] [id number], [place] [address] Apr, [facility] [place] [facility] [address] [id number], [place] [address] Apr, [facility] [place] [facility] [address] [id number], [place] [address] Mar, [facility] [place] [facility] [address] [id number], [place] [address] Mar, [facility] [place] [facility] [address] [id number], [place] [address] Feb, [facility] [place] [facility] [address] [id number], [place] [address] Feb, [facility] [place] [facility] [address] [id number] [place] [address] Dec, [facility] [address] [id number] [place] [address] Dec, [facility] [place] [facility] [address] [id number] [place] [address] Dec, [facility] [address] [id number] [place] [address] Dec, [facility] [place] [facility] [address] [id number] [place] [address] Dec, [facility] [address] [id number] [place] [address] Dec, [facility] [address] [id number] [place] [address] Dec, [facility] [address] [id number] [place] [address] Nov, [facility] [address] [id number] [place] [address] Nov, [facility] [place] [facility] [address] [id number] [place] [address] Nov, [facility] [address] [id number] [place] [address] Nov, [facility] [address] [id number] [place] [address] October, [facility] [place] [facility] [address] [id number] [place] [address] October, [facility] [place] [facility] [address] [id number] [place] [address] October, [facility] [place] [facility] [address] [id number] [place] [address] October, [facility] [place] [facility] [address] [id number] [place] [address] Sep, [facility] [place] [facility] [address] [id number] [place] [address] 30 Aug, 2012 [facility] [place] [facility] [address] [id number] [place] [address] 29 Aug, 2012 [facility] [place] [facility] [address] [id number] [place] [address] 22 Aug, 2012 [facility] [place] [facility] [address] [id number] [place] [address] 21 Aug, 2012 [facility] [address] [id number] [place] [address] 13 Aug, 2012 [facility] [place] [facility] [address] [id number] [place] [address] 27 Jul, 2012 [facility] [place] [facility] [address] [id number] [place] [address] Jul, [facility] [place] [facility] [address] [id number] [place] [address] 26 Jul, 2012 [facility] [place] [facility] [address] [id number] [place] [address] 25 Jul, 2012 [facility] [place] [facility] [address] [id number] [place] [address] 25 Jul, 2012 [facility] [place] [facility] [address] [id number] [place] [address] 23 Jul, 2012 [facility] [place] [facility] [address] [id number] [place] [address] 20 Jul, 2012 [facility] [place] [facility] [address] [id number] [place] [address] 15 Jul, 2012 [facility] [place] [facility] [address] [id number] [place] [address] 14 Jul, 2012 [facility] [place] [facility] [address] [facility] [id number] [place] [id number] 11 Jul, 2012 [facility] [place] [facility] [address] [id number] [place] [address] Jun, [facility] [address] [id number] [place] [address] Jun, [facility] [place] [facility] [address] [id number] [place] [address] Jun, [facility] [address] [id number] [place] [address] May, [facility] [place] [facility] [address] [id number] [place] [address] May, [facility] [address] [id number] [place] [address], [place] [address] Apr, [facility] [address] [id number] [place] [address] Apr, [facility] [address] [id number] [place] [address] Apr, [facility] [address] [id number] [place] [address] Apr, [facility] [place] [facility] [address] [id number] [place] [address] Apr, [facility] [address] [facility] [id number] [place] [address] Apr, [facility] [place] [facility] [address] [id number] [place] [address]- [address] Apr, [facility] [place] [facility] [address] [id number] [place] [address] Apr, [facility] [place] [facility] [address] [id number] [place] [address]- [address] Mar, [facility] [place] [facility] [address] [id number] [place] [address] Mar, [facility] [place] [facility] [address] [id number] [place] [address] Mar, [facility] [place] [facility] [address] [id number] [place] [address] Mar, [facility] [place] [facility] [address] [id number] [place] [address]- [address] Mar, [facility] [place] [facility] [address] [id number] [place] [address] Mar, [facility] [place] [facility] [address] [id number] [place] [address]- 9[address] Mar, [facility] [place] [facility] [address] [id number] [place] [address] Mar, [facility] [place] [facility] [address] [id number] [place] [address]- 7288 Mar, [facility] [place] [facility] [address] [id number] [place] [address] Feb, [facility] [place] [facility] [address] [id number] [place] [address]- 78[address] Jan, [facility] [place] [facility] [address] [id number] [place] [address] 4[address] Jan, [facility] [place] [facility] [address] [id number] [place] [address] Jan, [facility] [place] [facility] [address] [id number] [place] [address] Dec, [facility] [place] [facility] [address] [id number], [place] [address] Dec, [facility] [place] [facility] [address] [id number] [place] [address] Dec, [facility] [place] [facility] [address] [id number] [place] [address] Nov, [facility] [place] [facility] [address] [id number], [place] [address] October, [facility] [place] [facility] [address] [id number], [place] [address] October, [facility] [address] [id number] [place] [address]- [address] October, [facility] [place] [facility] [address] [id number] [place] [address]- [address] October, [facility] [place] [facility] [address] [id number] [place] [address] 6[address] October, [facility] [place] [facility] [address] [id number] [place] [address]24 30 Sep, 2011 [facility] [place] [facility] [address] [id number] [place] [address]- 118[address] Sep, [facility] [place] [facility] [address] [id number] [place] [address]- [address] Sep, [facility] [address] [id number] [place] [address] Sep, [facility] [place] [facility] [address] [id number] [place] [address]- 80[address] Sep, [facility] [place] [facility] [address] [id number] [place] [address]- 9[address] Sep, [facility] [place] [facility] [address] [id number] [place] [address]- 1665 Sep, [facility] [place] [facility] [address] [id number] [place] [address]- [address] Aug, [facility] [place] [facility] [address] [id number] [place] [address]- 3609 Aug, [facility] [place] [facility] [address] [id number] [place] [address]- 1657 Aug, [facility] [place] [facility] [address] [id number] [place] [address]- 4226 Aug, [facility] [place] [facility] [address] [id number] [place] [address]- 7357 20 Aug, 2011 [facility] [place] [facility] [address] [id number] [place] [address]- 5721 19 Aug, 2011 [facility] [place] [facility] [address] [id number] [place] [address]- 3[address] 16 Aug, 2011 [facility] [place] [facility] [address] [id number] [place] [address]- 7196 15 Aug, 2011 [facility] [place] [facility] [address] [id number] [place] [address]- 9185 15 Aug, 2011 [facility] [place] [facility] [address] [id number] [place] [address]- 6361 14 Aug, 2011 [facility] [place] [facility] [address] [id number] [place] [address]- 8274 12 Aug, 2011 [facility] [place] [facility] [address] [id number] [place] [address]- 8673 08 Aug, 2011 [facility] [place] [facility] [address] [id number] [place] [address]- 4699 15 Jul, 2011 [facility] [place] [facility] [address] [id number] [place] [address]- 9015 15 Jul, 2011 [facility] [place] [facility] [address] [id number] [place] [address]- 8024 14 Jul, 2011 [facility] [place] [facility] [address] [id number] [place] [address]- 67[address] 06 Jul, 2011 [facility] [place] [facility] [address] [id number] [place] [address]- 6438 02 Jul, 2011 [facility] [place] [facility] [address] [id number] [place] [address]- 4880 Jun, [facility] [place] [facility] [address] [id number] [place] [address]- 8871 04 Jun, 2011 [facility] [place] [facility] [address] [id number] [place] [address]- 3525 Jun, [facility] [place] [facility] [address] [id number] [place] [address]- 6656 29 May, 2011 [facility] [place] [facility] [address] [id number] [place] [address]- 3929 May, [facility] [place] [facility] [address] [id number] [place] [address] 19 May, 2011 [facility] [place] [facility] [address] [id number] [place] [address]- 9354 19 May, 2011 [facility] [place] [facility] [address] [id number] [place] [address]- 4028 14 May, 2011 [facility] [place] [facility] [address] [id number] [place] [address]- 4003 16 Apr, 2011 [facility] [place] [facility] [address] [id number] [place] [address]- 9147 16 Apr, 2011 [facility] [place] [facility] [address] [id number] [place] [address]- 0320 15 Apr, 2011 [facility] [place] [facility] [address] [id number] [place] [address]- 2817 14 Apr, 2011 [facility] [place] [facility] [address] [id number] [place] [address]- 3760 25 Mar, 2011 [facility] [place] [facility] [address] [id number] [place] [address]- 9086 24 Mar, 2011 [facility] [place] [facility] [address] [id number], [place] [address]- [address] Mar, [facility] [place] [facility] [address] [id number], [place] [address]- 8478 19 Mar, 2011 [facility] [place] [facility] [address] [id number] [place] [address]- 6925 17 Mar, 2011 [facility] [place] [facility] [address] [id number], [place] [address]- 4243 17 Mar, 2011 [facility] [place] [facility] [address] [id number] [place] [address]- 6571 16 Feb, 2011 [facility] [place] [facility] [address] [id number] [address] Nov, [facility] [address] [id number], [place] [address] Aug, [facility] [id number], [place] [address] Apr, [facility] [id number], [place] [address] Mar, [facility] [id number], [place] [address]- [address]265 Apr, [facility] [id number], [place] [address] Apr, [facility] [id number], [place] [address] Sep, [facility] [id number], [place] [address]- [address]65 Mar, IMMUNIZATIONS No Known Immunizations SOCIAL HISTORY Never Assessed REASON FOR VISIT Hip pain- Anni Gallardo RN PLAN OF CARE VITAL SIGNS Height 63 in 2017-10-19 Weight 237 lbs 2017-10-19 Temperature 98.0 degrees Fahrenheit 2017-10-19 Heart Rate 80 bpm 2017-10-19 Respiratory Rate 18 2017-10-19 BMI 41.98 kg/m2 2017-10-19 Blood pressure systolic 142 mmHg 2017-10-19 Blood pressure diastolic 88 mmHg 2017-10-19 MEDICATIONS Medication Instructions Dosage Frequency Start Date End Date Duration Status Glucocard Expression Monitor w/Device as directed Aug, Active Metformin HCl 500 MG Orally Twice a day 2 tablets 12h Nov, Active Cymbalta 60 MG Orally Once a day 1 capsule 24h Active Glucocard Expression Test - test blood sugar Aug, Active Walker [employer] - with bench seat. DX: fibromyalgia, unsteady gait as directed Jan, Active Micardis 20 MG Orally Once a day 1 tablet by Oral route 1 time per day 24h Jun, 90 days Active Propranolol HCl 40 mg Orally Twice a day 1 tablet 12h October, 90 days Active Wheelchair 1 use as needed for acitivity assistance Nov, Active Mirtazapine 15 MG Orally Once a day 1 tablet at bedtime 24h Active Lyrica 150 MG Orally 3 times a day 1 capsule 8h Mar, 90 days Active Naproxen Sodium ER 500 MG Orally Once a day 2 tablets 24h October, Nov, 30 day(s) Active Albuterol Sulfate (2.5 MG/3ML) 0.083% Inhalation Three times a day 3 ml 8h Aug, Active Proventil HFA 108 (90 Base) MCG/ACT Inhalation every 4 hrs 2 puffs as needed 4h Aug, Active Pantoprazole Sodium 40 mg Orally Once a day 1 tablet 24h May, 90 days Active Crestor 10 mg Orally Once a day 1 tablet 24h Feb, Active RESULTS No Results [...]
--- OUTSIDE RECORDS SUMMARY | 2018-06-19 13:26 | XMS REPORT ---
Author Author ARISTEO ARAYA Organization [facility] Address [address] [place] [address] Care Team Providers [employer] Assistant Name Role Phone ARISTEO ARAYA Unavailable PROBLEMS Type Condition ICD9-CM Code HRS51-TO Code Onset Dates Condition Status SNOMED Code Problem Non morbid obesity due to excess calories E66.09 Active 018947589 Problem Unsteady gait R26.81 Active 69982323 Problem Eosinophilic colitis K52.82 Active 64535862 Problem Acute right-sided low back pain with right-sided sciatica M54.41 Active 199524899 Problem Paresthesias in left hand R20.2 Active 762770287 Problem Non morbid obesity E66.9 Active 494887376 Problem Other chronic gastritis without hemorrhage K29.50 Active 6526704 Problem GERD with esophagitis K21.0 Active 895517799 Problem Sacral pain M53.3 Active 32871201 Problem Fibromyalgia M79.7 Active 750035933 Problem Other chronic pain G89.29 Active 40599726 Problem Bronchitis J40 Active 72711623 Problem Migraine without aura and without status migrainosus, not intractable G43.009 Active 101325169 Problem Hypertension, benign I10 Active 15614235 ALLERGIES No Information ENCOUNTERS Encounter Location Date Diagnosis [address], [place] [address] Jan, [facility] [address], [place] [address] Jan, Bilious vomiting with nausea R11.14 ; BMI 40.0-44.9, adult Z68.41 ; Hypertension, benign I10 and Fibromyalgia M79.7 [facility] [id number] [address] Dec, Bilious vomiting with nausea R11.14 and Tachycardia R00.0 [address] [id number] [place] [address] 86886- 4725 14 Nov, 2017 [place] [address] [address] [address]- 5712 Nov, BMI 40.0-44.9, adult Z68.41 ; Leg edema R60.0 and Hypertension, benign I10 [place] [address] 62069- 1105 Nov, [place] [address] 77756- 2204 October, Thoracic neuritis M54.14 [place] [address] 99647- 5712 October, Acute right hip pain M25.551 [place] [address] 86675- 5085 October, [place] [address] 58835- 8612 Sep, Hypertension, benign I10 and Acute right-sided low back pain with right-sided sciatica M54.41 [place] [address] 26428- 8213 Sep, Fibromyalgia M79.7 and Hypertension, benign I10 [place] [address] 47465- 0309 Aug, [place] [address] 34905- 8844 Aug, Fibromyalgia M79.7 ; Frequent headaches R51 and Non morbid obesity due to excess calories E66.09 [place] [address] 91117- 7426 Jul, [place] [address] 81381- 6386 Jul, Fibromyalgia M79.7 [place] [address] 99777- 6145 Jul, Viral gastroenteritis A08.4 and Paresthesias in left hand R20.2 [place] [address] 55483- 5303 Jun, Non morbid obesity due to excess calories E66.09 [place] [address] 84088- 2787 Jun, [place] [address] 92611- 3752 Jun, Fibromyalgia M79.7 [place] [address] 16417- 8753 May, Non morbid obesity due to excess calories E66.09 and Hypertension, benign I10 [place] [address] 11003- 7917 May, GERD with esophagitis K21.0 [place] [address] 93116- 3323 Apr, BMI 40.0-44.9, adult Z68.41 and Non morbid obesity E66.[address] [address]- 7669 Mar, Unsteady gait R26.81 [place] [address] 38446- 4978 Mar, Unsteady gait R26.81 ; Sacral pain M53.3 and Fibromyalgia M79.7 [place] [address] 98779- 4773 Mar, Non morbid obesity due to excess calories E66.09 [place] [address] 95408- 7834 Feb, Abdominal pain, generalized R10.84 [place] [address] 92040- 0001 Feb, Other chronic gastritis without hemorrhage K29.50 and H. pylori infection A04.8 [place] [id number] [place] [address] 35923- 3941 07 Feb, 2017 Back pain 724.5 ; Pain in left shoulder M25.512 ; Fibromyalgia M79.7 and Non morbid obesity due to excess calories E66.09 [place] [id number] [place] [address] 86006- 3434 07 Feb, 2017 BMI 40.0-44.9, adult Z68.41 [place] [address] 47149- 5600 14 Jan, 2017 Dysuria R30.0 and Acute cystitis with hematuria N30.01 [place] [address] 61836- 7988 Jan, Dysuria R30.0 [place] [address] 40552- 8250 Dec, Fibromyalgia M79.7 [place] [address] 56042- 8888 Dec, Screening for diabetes mellitus Z13.1 and Fibromyalgia M79.7 [place] [address] 77628- 4832 Dec, Fibromyalgia M79.7 [place] [id number] [place] [address] 06990- 0379 Dec, [place] [address] 23881- 6894 Dec, Fibromyalgia M79.7 [place] [address] 35774- 2411 Nov, Foreign body in foot, left, initial encounter S90.852A [place] [id number] [place] [address] 87169- 6940 Nov, Viral gastroenteritis A08.4 [place] [address] 87837- 4328 Nov, Fall, initial encounter W19.XXXA ; Post-traumatic headache, unspecified, not intractable G44.309 ; Dizziness R42 ; Unsteady gait R26.81 ; Sacral pain M53.3 and Non morbid obesity due to excess calories E66.09 [place] [id number] [place] [address] 15199- 1469 Nov, [place] [address] 19671- 3222 Nov, [place] [address] 26144- 5508 October, Non morbid obesity due to excess calories E66.09 and Hypertension, benign I10 [place] [id number] [place] [address] 09943- 5729 October, Fibromyalgia M79.7 [place] [address] 04403- 8207 Sep, [place] [address] 89446- 4638 Sep, [place] [address] 63585- 3625 Sep, Eosinophilic colitis K52.82 [place] [id number] [place] [address] 24816- 3831 Aug, Bronchitis J40 [place] [address] 13396- 4777 Aug, [place] [id number] [place] [address] 23813- 3733 Aug, Pain in left shoulder M25.512 ; Bronchitis J40 ; Acute midline back pain, unspecified location M54.9 ; Migraine without aura and without status migrainosus, not intractable G43.009 ; Fibromyalgia M79.7 and Pain of upper abdomen R10.10 [place] [address] 19902- 1625 Aug, [facility] [address], [place] [address]- 2031 Aug, [facility] [id number] [place] [address] 05345- 3801 Jul, Other viral agents as the cause of diseases classified elsewhere B97.89 and Acute upper respiratory infection, unspecified J06.9 [facility] [id number] [place] [address] 39440- 7114 Jun, [facility] [id number] [place] [address] 68134 -4538 Jun, [facility] [id number] [place] [address] 25468- 8542 May, Abscess L02.91 [facility] [id number] [place] [address] 47279- 3718 May, Acute midline low back pain without sciatica M54.5 [facility] [id number] [place] [address] 16500 -3363 May, [facility] [id number] [place] [address] 86959- 5715 Apr, [facility] [id number] [place] [address] 18752- 6298 Apr, Other chronic pain G89.29 ; Pain in right shoulder M25.511 and Pain in left shoulder M25.512 [facility] [address], [place] [address]- 8073 16 Apr, 2016 [facility] [id number] [place] [address] 18248- 0973 Apr, [facility] [id number] [place] [address] 43187- 1352 Apr, Fibromyalgia M79.7 ; Other chronic pain G89.29 and Pain in left shoulder M25.512 [facility] [address], [place] [address]- 0916 04 Apr, 2016 Bronchitis J40 [facility] [address] [place] [address] 87068- 4604 27 Mar, 2016 [facility] [id number] [id number] Mar, [facility] [id number] [place] [address] 98107 2546 29 Feb, 2015 [facility] [id number] [place] [address] 29906 2549 26 Feb, 2015 [facility] [id number] [place] [address] 55693- 9676 23 Feb, 2015 [facility] [id number] [place] [address] 66403- 9403 22 Feb, 2015 [facility] [id number] [place] [address] 01404- 5113 20 Feb, 2015 [facility] [address] [place] [address] 57873 2545 19 Feb, 2015 [facility] [id number] [place] [address] 01463- 4918 19 Feb, 2015 Dysuria R30.0 [facility] [address] [place] [address] 25021 2540 19 Feb, 2015 Dysuria R30.0 [facility] [address] [place] [address] 28442- 2324 16 Feb, 2016 [facility] [address] [place] [address] 65645 2544 15 Feb, 2016 Migraine, unspecified, not intractable, without status migrainosus G43.909 and Fibromyalgia M79.7 [facility] [address] [place] [address] 30310- 2546 06 Sep, 2016 Migraine without aura and without status migrainosus, not intractable G43.009 [facility] [address] [place] [address] 39049- 2837 Jan, [facility] [id number] [place] [address] 63033- 4897 Jan, [facility] [id number] [place] [address] 70873- 0834 Jan, [facility] [id number] [place] [address] 75744- 0678 Jan, [facility] [address] 99093- 3708 Jan, Unsteady gait R26.81 ; Fibromyalgia M79.7 and Family history of rheumatoid arthritis Z82.61 [place] [id number] [place] [address] 59666- 5843 Dec, [place] [id number] [place] [address] 10935- 4148 Dec, [facility] [id number] [place] [address] 23052- 9105 Nov, Pain in left shoulder M25.512 [place] [address] 95401- 9005 October, Viral gastroenteritis A08.4 [facility] [id number] [place] [address] 06755 -8911 October, Pain of upper abdomen R10.10 [facility] [id number] [place] [address] 68018- 7135 October, Acute midline back pain, unspecified location M54.9 [facility] [id number] [place] [address] 39108- 4581 Aug, Elbow pain, right M25.521 [facility] [id number] [place] [address] 96955- 4647 Aug, Elbow pain, right M25.521 [facility] [address] 11104- 6846 Aug, Pain of right upper extremity M79.601 [facility] [id number] [place] [address] 42411- 7232 Jun, Lumbar neuritis M54.16 [facility] [id number] [place] [address] 96985- 0356 May, [facility] [address] 27768- 0884 Apr, Non morbid obesity due to excess calories E66.09 [facility] [address] 96210- 2063 Apr, Non morbid obesity due to excess calories E66.09 and Thoracic neuritis M54.14 [facility] [id number] [place] [address] 79486- 5995 Apr, Elbow pain, right M25.521 [facility] [address] 45383- 6957 Mar, Right elbow pain M25.521 [facility] [id number] [place] [address] 02648- 9142 Mar, [facility] [id number] [place] [address] 13942- 2786 Feb, Urinary tract infection, site not specified 599.0 [facility] [id number] [place] [address] 84779- 8141 Feb, [facility] [id number] [place] [address] 64335- 3446 Jan, Spider bite 989.5 [facility] [address] 16276- 5648 Jan, Spider bite 989.5 [facility] [id number] [place] [address] 96890- 1729 Jan, Spider bite 989.5 [facility] [address] [place] [address]- 2416 10 Nov, 2014 Back pain 724.5 and Diabetes 250.00 [facility] [id number] [place] [address] 13231- 1119 03 Nov, 2014 Back pain 724.5 and Muscle spasm of back 724.8 [facility] [id number] [place] [address] 81338- 0112 Nov, Alternating constipation and diarrhea 787.99 [facility] [id number] [place] [address] 01779- 3146 October, Back pain 724.5 and Hip pain 719.45 [facility] [id number] [place] [address] 28976- 6321 Sep, [facility] [id number] [place] [address] 61068- 2973 Sep, [facility] [id number] [place] [address] 82372- 9880 Aug, [facility] [id number] [place] [address] 51905- 8302 Aug, [facility] [id number] [place] [address] 03400- 8519 Aug, [facility] [id number] [place] [address] 06122- 2746 Aug, [facility] [id number] [place] [address] 21505- 8002 Aug, [facility] [address] [place] [address] 50792- 6823 Aug, [facility] [id number] [place] [address] 19866- 0204 Jul, [facility] [address] [place] [address] 470945- 5084 Jul, [facility] [id number] [place] [address] 24647- 5160 16 Jun, 2014 [facility] [place] [facility] [address] [id number] [place] [address]- 8053 16 Jun, 2014 [facility] [place] [facility] [address] [id number], [place] [address]- 6146 15 Jun, 2014 [facility] [place] [facility] [address] [facility] [id number] [place] [address]- 5869 15 Jun, 2014 [facility] [place] [facility] [address] [id number] [place] [address]- 6066 15 Jun, 2014 [facility] [place] [facility] [id number] [place] [address], [place] [address]- 8847 Jun, [facility] [place] [facility] [address] [facility] [id number] [place] [address]- 7626 Jun, [facility] [place] [facility] [id number], [place] [address]- 3082 May, [facility] [place] [facility] [address] [id number] [place] [address]- 7332 May, [facility] [place] [facility] [id number] [place] [address]- 6521 May, [facility] [place] [facility] [address] [facility] [id number] [place] [address]- 7938 May, [facility] [place] [facility] [address] [id number], [place] [address]- 1265 Apr, [facility] [place] [facility] [address] [id number], [place] [address]- 0805 Apr, [facility] [place] [facility] [address] [id number] [place] [address]- 1689 Mar, [facility] [place] [facility] [address] [facility] [id number] [place] [address]- 5918 Mar, [facility] [place] [facility] [address] [facility] [id number], [place] [address]- 6582 Mar, [facility] [place] [facility] [address] [id number] [place] [address]- 0145 Mar, [facility] [place] [facility] [address] [id number] [place] [address]- 5793 Mar, [facility] [place] [facility] [address] [id number] [place] [address]- 0346 Mar, [facility] [place] [facility] [address] [id number] [place] [address]- 7002 Mar, [facility] [place] [facility] [address] [id number] [place] [address]- 4265 Mar, [facility] [place] [facility] [address] [id number] [place] [address]- 4091 Mar, [facility] [place] [facility] [address] [id number] [place] [address]- 9668 Mar, [facility] [place] [facility] [address] [id number] [place] [address]- 4454 Feb, [facility] [place] [facility] [address] [id number] [place] [address]- 8673 Feb, [facility] [place] [facility] [address] [id number] [place] [address]- 0109 Jan, [facility] [place] [facility] [address] [id number] [place] [address]- 1640 Jan, [facility] [place] [facility] [address] [id number] [place] [address]- 9548 Jan, [facility] [place] [facility] [address] [id number] [place] [address]- 3211 Jan, [facility] [place] [facility] [address] [id number] [place] [address]- 3659 Jan, [facility] [place] [facility] [address] [id number] [place] [address]- 6630 Jan, [facility] [place] [facility] [address] [id number] [place] [address]- 3412 Jan, [facility] [place] [facility] [address] [id number] [place] [address]- 5432 Jan, [facility] [place] [facility] [address] [id number] [place] [address]- 8586 Jan, [facility] [place] [facility] [address] [id number] [place] [address]- 4385 Jan, [facility] [place] [facility] [address] [id number] [place] [address]- 8925 Dec, [facility] [place] [facility] [address] [id number] [place] [address]- 5391 Dec, [facility] [place] [facility] [address] [id number] [place] [address]- 2464 Dec, [facility] [place] [facility] [address] [id number] [place] [address]- 7645 Dec, [facility] [place] [facility] [address] [id number] [place] [address]- 0298 Nov, [facility] [place] [facility] [address] [id number] [place] [address]- 7432 Nov, [facility] [place] [facility] [address] [id number] [place] [address]- 2689 Nov, [facility] [place] [facility] [address] [id number] [place] [address]- 4973 Nov, [facility] [place] [facility] [address] [id number] [place] [address]- 3210 October, [facility] [place] [facility] [address] [id number] [place] [address]- 7722 October, [facility] [place] [facility] [address] [id number] [place] [address]- 1360 Sep, [facility] [place] [facility] [address] [id number] [place] [address]- 1397 Sep, [facility] [place] [facility] [address] [id number] [place] [address]- 0854 08 Sep, 2013 [facility] [place] [facility] [address] [id number] [place] [address]- 5343 Sep, [facility] [place] [facility] [address] [id number] [place] [address]- 8469 Sep, [facility] [place] [facility] [address] [id number] [place] [address]- 4703 Sep, [facility] [place] [facility] [address] [id number] [place] [address]- 5631 Sep, [facility] [place] [facility] [address] [id number] [place] [address]- 5615 Sep, [facility] [place] [facility] [address] [id number] [place] [address]- 6538 Sep, [facility] [place] [facility] [address] [id number] [place] [address]- 4216 Sep, [facility] [place] [facility] [address] [id number] [place] [address]- 6368 Jul, [facility] [place] [facility] [address] [id number] [place] [address]- 5171 Jul, [facility] [place] [facility] [address] [id number] [place] [address]- 5660 Jul, [facility] [place] [facility] [address] [id number] [place] [address]- 4623 Jul, [facility] [place] [facility] [address] [id number] [place] [address]- 0260 Jun, [facility] [place] [facility] [address] [id number] [place] [address]- 2516 Jun, [facility] [place] [facility] [address] [id number] [place] [address]- 6566 Jun, [facility] [place] [facility] [address] [id number] [place] [address]- 9780 Jun, [facility] [place] [facility] [address] [id number] [place] [address]- 4924 Jun, [facility] [place] [facility] [address] [id number] [place] [address] Jun, [facility] [place] [facility] [address] [id number] [place] [address] Apr, [facility] [place] [facility] [address] [id number] [place] [address] Apr, [facility] [place] [facility] [address] [id number] [place] [address] Apr, [facility] [place] [facility] [address] [id number] [place] [address] Apr, [facility] [place] [facility] [address] [id number] [place] [address] Apr, [facility] [place] [facility] [address] [id number], [place] [address] Apr, [facility] [place] [facility] [address] [id number] [place] [address] Apr, [facility] [place] [facility] [address] [id number], [place] [address] Apr, [facility] [place] [facility] [address] [id number], [place] [address] Mar, [facility] [place] [facility] [address] [id number], [place] [address] Mar, [facility] [place] [facility] [address] [id number] [place] [address] 8560 Feb, [facility] [place] [facility] [address] [id number], [place] [address] Feb, [facility] [place] [facility] [address] [id number], [place] [address] Dec, [facility] [place] [facility] [address] [id number], [place] [address] Dec, [facility] [address] [id number] [place] [address]- 2470 Dec, [facility] [place] [facility] [address] [id number] [place] [address]- [address] Dec, [facility] [address] [id number] [place] [address]- 69[address] Dec, [facility] [address] [id number] [place] [address]- [address] Dec, [facility] [address] [id number] [place] [address]- 9679 Dec, [facility] [address] [id number] [place] [address]- [address] Nov, [facility] [address] [id number] [place] [address] Nov, [facility] [address] [id number] [place] [address]- [address] Nov, [facility] [address] [id number] [place] [address] Nov, [facility] [address] [id number] [place] [address]- [address] October, [facility] [address] [id number] [place] [address]- [address] October, [facility] [place] [facility] [address] [id number] [place] [address]- [address] October, [facility] [place] [facility] [address] [id number] [place] [address]- [address] October, [facility] [place] [facility] [address] [id number] [place] [address]- [address] Sep, [facility] [place] [facility] [address] [id number] [place] [address] Aug, [facility] [place] [facility] [address] [id number] [place] [address] 2549 29 Aug, 2012 [facility] [place] [facility] [address] [id number] [place] [address] 2546 22 Aug, 2012 [facility] [place] [facility] [address] [id number] [place] [address] 2546 Aug, [facility] [place] [facility] [address] [id number] [place] [address] 2546 Aug, [facility] [place] [facility] [address] [id number] [place] [address] 25[address] Jul, [facility] [place] [facility] [address] [id number] [place] [address] 2546 27 Jul, 2012 [facility] [place] [facility] [address] [id number] [place] [address]- [address] 26 Jul, 2012 [facility] [place] [facility] [address] [id number] [place] [address]- [address] 25 Jul, 2012 [facility] [place] [facility] [address] [id number] [place] [address]- [address] 25 Jul, 2012 [facility] [place] [facility] [address] [id number] [place] [address]- [address] 23 Jul, 2012 [facility] [place] [facility] [address] [id number] [place] [address]- [address] 20 Jul, 2012 [facility] [place] [facility] [address] [id number] [place] [address]- [address] 15 Jul, 2012 [facility] [place] [facility] [address] [id number] [place] [address] 2546 14 Jul, 2012 [facility] [place] [facility] [address] [id number] [place] [address]- [address] 11 Jul, 2012 [facility] [place] [facility] [address] [id number] [place] [address] Jun, [facility] [place] [facility] [address] [id number] [place] [address] Jun, [facility] [place] [facility] [address] [id number] [place] [address] Jun, [facility] [place] [facility] [address] [id number] [place] [address] May, [facility] [place] [facility] [address] [id number] [place] [address] May, [facility] [place] [facility] [address] [id number] [place] [address] Apr, [facility] [place] [facility] [address] [id number] [place] [address] Apr, [facility] [place] [facility] [address] [id number] [place] [address] Apr, [facility] [place] [facility] [address] [id number] [place] [address] Apr, [facility] [place] [facility] [address] [id number] [place] [address] Apr, [facility] [place] [facility] [address] [id number] [place] [address] Apr, [facility] [place] [facility] [address] [facility] [id number] [place] [address]- [address] Apr, [facility] [place] [facility] [address] [id number] [place] [address] 1666 Apr, [facility] [place] [facility] [address] [id number], [place] [address] Mar, [facility] [place] [facility] [address] [id number] [place] [address] Mar, [facility] [place] [facility] [address] [facility] [id number] [place] [address]- 1784 Mar, [facility] [place] [facility] [address] [facility] [id number] [place] [address]328 Mar, [facility] [place] [facility] [address] [id number] [place] [address] 4411 Mar, [facility] [place] [facility] [address] [id number] [place] [address] Mar, [facility] [place] [facility] [address] [id number] [place] [address] 1896 Mar, [facility] [place] [facility] [address] [id number] [place] [address]- 0[address] Mar, [facility] [place] [facility] [address] [id number] [place] [address]- [address] Mar, [facility] [place] [facility] [address] [id number] [place] [address] Feb, [facility] [place] [facility] [address] [id number] [place] [address] Jan, [facility] [place] [facility] [address] [id number] [place] [address]- 7630 Jan, [facility] [place] [facility] [address] [id number] [place] [address]- [address]407 Jan, [facility] [place] [facility] [address] [id number] [place] [address]- 2868 Dec, [facility] [place] [facility] [address] [id number] [place] [address]262 Dec, [facility] [place] [facility] [address] [id number] [place] [address]138 Dec, [facility] [place] [facility] [address] [id number] [place] [address]338 Nov, [facility] [place] [facility] [address] [id number] [place] [address] 9663 October, [facility] [place] [facility] [address] [id number] [place] [address]- 46[address] October, [facility] [place] [facility] [address] [id number] [place] [address] 46[address] October, [facility] [place] [facility] [address] [id number] [place] [address]363 October, [facility] [place] [facility] [address] [id number] [place] [address]- 5826 October, [facility] [place] [facility] [address] [id number] [place] [address]- [address]74 Sep, [facility] [place] [facility] [address] [id number] [place] [address] Sep, [facility] [place] [facility] [address] [id number] [place] [address] 4141 Sep, [facility] [place] [facility] [address] [id number] [place] [address]- 7188 Sep, [facility] [place] [facility] [address] [id number] [place] [address]- 7050 Sep, [facility] [place] [facility] [address] [id number] [place] [address]- 49[address] Sep, [facility] [place] [facility] [address] [id number] [place] [address]- 6461 Sep, [facility] [place] [facility] [address] [id number] [place] [address]- [address]129 Aug, [facility] [place] [facility] [address] [id number] [place] [address]- 6059 Aug, [facility] [place] [facility] [address] [id number] [place] [address]- 6391 Aug, [facility] [place] [facility] [address] [id number] [place] [address]- 6967 Aug, [facility] [place] [facility] [address] [id number] [place] [address]- 4240 Aug, [facility] [place] [facility] [address] [id number] [place] [address]- [address]262 Aug, [facility] [place] [facility] [address] [id number] [place] [address]- [address]996 16 Aug, 2011 [facility] [address] [id number] [place] [address] 15 Aug, 2011 [facility] [place] [facility] [address] [id number] [place] [address]- 1366 15 Aug, 2011 [facility] [address] [id number] [place] [address]- 6856 14 Aug, 2011 [facility] [place] [facility] [address] [id number] [place] [address]- 3176 12 Aug, 2011 [facility] [address] [id number] [place] [address]- 6776 08 Aug, 2011 [facility] [place] [facility] [address] [id number] [place] [address]- [address]376 15 Jul, 2011 [facility] [address] [id number] [place] [address]- 3946 15 Jul, 2011 [facility] [address] [id number] [place] [address]- 1372 14 Jul, 2011 [facility] [place] [facility] [address] [id number] [place] [address]- 4016 06 Jul, 2011 [facility] [address] [facility] [id number] [place] [address]- 8216 02 Jul, 2011 [facility] [address] [id number] [place] [address]- [address]396 Jun, [facility] [address] [id number] [place] [address]- 0176 Jun, [facility] [place] [facility] [address] [id number] [place] [address]- 6936 Jun, [facility] [place] [facility] [address] [id number] [place] [address]- 2546 May, [facility] [address] [id number] [place] [address]- 7297 21 May, 2011 [facility] [place] [facility] [address] [id number] [place] [address]- [address]13 19 May, 2011 [facility] [place] [facility] [address] [id number] [place] [address]- 5600 19 May, 2011 [facility] [place] [facility] [address] [id number] [place] [address]- 4778 14 May, 2011 [facility] [place] [facility] [address] [id number] [place] [address]- 7821 16 Apr, 2011 [facility] [place] [facility] [address] [id number] [place] [address]- 1814 16 Apr, 2011 [facility] [place] [facility] [address] [id number] [place] [address]- 7215 15 Apr, 2011 [facility] [place] [facility] [address] [id number] [place] [address]- 2425 14 Apr, 2011 [facility] [place] [facility] [address] [id number], [place] [address]- 6610 25 Mar, 2011 [facility] [place] [facility] [address] [id number], [place] [address]- 9117 24 Mar, 2011 [facility] [place] [facility] [address] [id number], [place] [address]- 2659 19 Mar, 2011 [facility] [place] [facility] [address] [id number], [place] [address]- 5425 19 Mar, 2011 [facility] [place] [facility] [address] [id number], [place] [address]- 7935 17 Mar, 2011 [facility] [place] [facility] [address] [id number], [place] [address]- 5555 17 Mar, 2011 [facility] [place] [facility] [address] [id number], [place] [address]- 2347 16 Feb, 2011 [facility] [place] [facility] [address] [id number], [place] [address]- 9256 10 Nov, 2010 [facility] [place] [facility] [address] [facility] [id number] [place] [address]- 3046 17 Aug, 2010 [facility] [address] [facility] [id number], [place] [address]- 4345 11 Apr, 2010 [facility] [address] [id number], [place] [address] 16 Mar, 2010 [facility] [address] [id number], [place] [address]- [address]184 Apr, [facility] [address] [id number], [place] [address]- 47[address] Apr, [facility] [address] [id number], [place] [address]- [address]68 Sep, [facility] [address] [id number], [place] [address]- 8749 17 Mar, 2008 IMMUNIZATIONS No Known Immunizations SOCIAL HISTORY Never Assessed REASON FOR VISIT Triage--[facility] PLAN OF CARE VITAL SIGNS MEDICATIONS Unknown [...] Hospitalization History hypokalemia 08/2009 Hospitalization History pneumonia 2007 Hospitalization History [facility] SI 01/2016 Hospitalization History Sepsis secondary to pneumonia and UTI 03/1016
[2018-06-19 13:27] LABS: BASOPHILS % (AUTO) 0 % (0-10); EOSINOPHILS # (AUTO) 0.4 10^3/uL (0.0-0.3); EOSINOPHILS % (AUTO) 4 % (0-10); HEMATOCRIT 38 % (35-52); HEMOGLOBIN 12.4 G/DL (11.5-16.0); LYMPHOCYTES # (AUTO) 2.3 X 10^3 (1.0-4.0); LYMPHOCYTES % (AUTO) 24 % (12-44); MEAN CORPUSCULAR HEMOGLOBIN 28 PG (25-34); MEAN CORPUSCULAR HGB CONC 32 G/DL (32-36); MEAN CORPUSCULAR VOLUME 85 FL (80-99); MEAN PLATELET VOLUME 11.7 FL (7.4-10.4); MONOCYTES # (AUTO) 0.6 X 10^3 (0.0-1.0); MONOCYTES % (AUTO) 6 % (0-12); NEUTROPHILS # (AUTO) 6.6 X 10^3 (1.8-7.8); NEUTROPHILS % (AUTO) 67 % (42-75); PLATELET COUNT 236 10^3/uL (130-400); RED BLOOD COUNT 4.51 10^6/uL (4.35-5.85); RED CELL DISTRIBUTION WIDTH 15.6 % (10.0-14.5); WHITE BLOOD COUNT 9.8 10^3/uL (4.3-11.0)
--- OUTSIDE RECORDS SUMMARY | 2018-06-19 13:27 | XMS REPORT ---
Author Author ARISTEO ARAYA Organization [facility] Address [address] [place] [address] Care Team Providers Care Public Relations Intern Name Role Phone ARISTEO ARAYA Unavailable PROBLEMS Type Condition ICD9-CM Code FFN83-VG Code Onset Dates Condition Status SNOMED Code Problem Non morbid obesity due to excess calories E66.09 Active 097191658 Problem Unsteady gait R26.81 Active 87665900 Problem Eosinophilic colitis K52.82 Active 63587456 Problem Acute right-sided low back pain with right-sided sciatica M54.41 Active 431674999 Problem Paresthesias in left hand R20.2 Active 330149786 Problem Non morbid obesity E66.9 Active 293596079 Problem Other chronic gastritis without hemorrhage K29.50 Active 9051486 Problem GERD with esophagitis K21.0 Active 150047882 Problem Sacral pain M53.3 Active 52568017 Problem Fibromyalgia M79.7 Active 449642308 Problem Other chronic pain G89.29 Active 75112222 Problem Bronchitis J40 Active 76835582 Problem Migraine without aura and without status migrainosus, not intractable G43.009 Active 007048914 Problem Hypertension, benign I10 Active 54055375 ALLERGIES Substance Reaction Event Type Date Status Singulair Unknown Drug Allergy Sep, Active Lisinopril Unknown Drug Allergy Sep, Active metals Unknown Non Drug Allergy Sep, Active ENCOUNTERS Encounter Location Date Diagnosis [facility] [id number] [address] Dec, Bilious vomiting with nausea R11.14 and Tachycardia R00.0 [facility] [id number] [address] Nov, [facility] [id number], [place] [address] 06 Nov, 2017 BMI 40.0-44.9, adult Z68.41 ; Leg edema R60.0 and Hypertension, benign I10 [place] [address] [address]- [address] Nov, [place] [address] [address]- 4293 October, Thoracic neuritis M54.14 [place] [address] 39672- 4601 October, Acute right hip pain M25.551 [place] [address] 15993- 7992 October, [place] [address] 62947- 7366 Sep, Hypertension, benign I10 and Acute right-sided low back pain with right-sided sciatica M54.41 [place] [address] 75205- 7632 Sep, Fibromyalgia M79.7 and Hypertension, benign I10 [place] [address] 14018- 6472 Aug, [place] [address] 40132- 0317 Aug, Fibromyalgia M79.7 ; Frequent headaches R51 and Non morbid obesity due to excess calories E66.09 [place] [address] 96767- 0604 Jul, [place] [address] 42385- 5386 Jul, Fibromyalgia M79.7 [place] [address] 05089- 3869 Jul, Viral gastroenteritis A08.4 and Paresthesias in left hand R20.2 [place] [address] [address]- 1984 Jun, Non morbid obesity due to excess calories E66.09 [place] [id number] [place] [address] 33931- 9125 17 Jun, 2017 [place] [address] 55638- 7426 Jun, Fibromyalgia M79.7 [place] [id number] [place] [address] 90613- 3241 May, Non morbid obesity due to excess calories E66.09 and Hypertension, benign I10 [place] [address] 68641- 1004 04 May, 2017 GERD with esophagitis K21.[address] 25[address]- 9226 Apr, BMI 40.0-44.9, adult Z68.41 and Non morbid obesity E66.[address] 85924- 7694 Mar, Unsteady gait R26.81 [place] [address] 98170- 3210 Mar, Unsteady gait R26.81 ; Sacral pain M53.3 and Fibromyalgia M79.7 [place] [id number] [place] [address] 33970- 7925 Mar, Non morbid obesity due to excess calories E66.09 [place] [id number] [place] [address] 28798- 1010 28 Feb, 2017 Abdominal pain, generalized R10.[address] 32082- 3352 18 Feb, 2017 Other chronic gastritis without hemorrhage K29.50 and H. pylori infection A04.8 [place] [id number] [place] [address] 22028- 0275 07 Feb, 2017 Back pain 724.5 ; Pain in left shoulder M25.512 ; Fibromyalgia M79.7 and Non morbid obesity due to excess calories E66.09 [place] [id number] [place] [address] 06912- 3681 07 Feb, 2017 BMI 40.0-44.9, adult Z68.41 [place] [address] 24797- 4729 Jan, Dysuria R30.0 and Acute cystitis with hematuria N30.01 [place] [address] 44411- 7242 Jan, Dysuria R30.0 [place] [address] 82113- 6141 Dec, Fibromyalgia M79.7 [place] [address] 04731- 7512 Dec, Screening for diabetes mellitus Z13.1 and Fibromyalgia M79.7 [place] [address] 20130- 8882 Dec, Fibromyalgia M79.7 [place] [address] 32842- 2613 Dec, [place] [address] 49894- 8650 Dec, Fibromyalgia M79.7 [place] [address] 90694- 4891 Nov, Foreign body in foot, left, initial encounter S90.852A [place] [id number] [place] [address] 14581- 2347 Nov, Viral gastroenteritis A08.4 [place] [address] 47758- 1810 09 Nov, 2016 Fall, initial encounter W19.XXXA ; Post-traumatic headache, unspecified, not intractable G44.309 ; Dizziness R42 ; Unsteady gait R26.81 ; Sacral pain M53.3 and Non morbid obesity due to excess calories E66.09 [facility] [id number] [place] [address] 22563- 6949 Nov, [facility] [id number] [place] [address] 28985- 4861 Nov, [facility] [id number] [place] [address] 70937- 4791 October, Non morbid obesity due to excess calories E66.09 and Hypertension, benign I10 [facility] [address] 37494- 3889 October, Fibromyalgia M79.7 [facility] [address] 58195- 7024 Sep, [facility] [address] 57371- 1568 Sep, [facility] [address] 81956- 0921 Sep, Eosinophilic colitis K52.82 [facility] [id number] [place] [address] 75504- 5786 Aug, Bronchitis J40 [facility] [id number] [place] [address] 48563- 8709 Aug, [facility] [id number] [place] [address] 24388- 6000 Aug, Pain in left shoulder M25.512 ; Bronchitis J40 ; Acute midline back pain, unspecified location M54.9 ; Migraine without aura and without status migrainosus, not intractable G43.009 ; Fibromyalgia M79.7 and Pain of upper abdomen R10.10 [facility] [id number] [place] [address] 57617- 4375 Aug, [facility] [address] 96603- 1663 Aug, [facility] [address] 34171- 5401 Jul, Other viral agents as the cause of diseases classified elsewhere B97.89 and Acute upper respiratory infection, unspecified J06.9 [facility] [id number] [place] [address] 68139- 0731 Jun, [facility] [id number] [place] [address] 69055 -7962 Jun, [facility] [id number] [place] [address] 37675- 5581 May, Abscess L02.91 [facility] [id number] [place] [address] 87164- 0455 May, Acute midline low back pain without sciatica M54.5 [facility] [id number] [place] [address] 40442 -1559 May, [facility] [id number] [place] [address] 10973- 0935 Apr, [facility] [id number] [place] [address] 65667- 2691 Apr, Other chronic pain G89.29 ; Pain in right shoulder M25.511 and Pain in left shoulder M25.512 [facility] [address] [place] [address] 51513- 8499 16 Apr, 2016 [facility] [id number] [place] [address] 36784- 7292 Apr, [facility] [id number] [place] [address] 99037- 8294 Apr, Fibromyalgia M79.7 ; Other chronic pain G89.29 and Pain in left shoulder M25.512 [place] [id number] [place] [address] 53208- 8867 04 Apr, 2016 Bronchitis J40 [facility] [id number] [place] [address] 83828- 3388 Mar, [place] [address] [place] [id number] Mar, [facility] [address], [place] [address]- 7267 29 Feb, 2015 [facility] [address] [place] [address] 83178- 7375 26 Feb, 2015 [facility] [address] [place] [address] 76419- 0646 23 Feb, 2015 [facility] [id number] [place] [address] 41999- 8521 22 Feb, 2015 [facility] [id number] [place] [address] 16133- 3479 20 Feb, 2015 [facility] [address] [place] [address] 02723- 5226 19 Feb, 2015 [facility] [id number] [place] [address] 65210- 4906 19 Feb, 2015 Dysuria R30.0 [facility] [address] [place] [address] 82846- 8086 19 Feb, 2015 Dysuria R30.0 [facility] [address] [place] [address] 04410- 5394 16 Feb, 2015 [facility] [address] [place] [address] 24682- 9907 15 Feb, 2016 Migraine, unspecified, not intractable, without status migrainosus G43.909 and Fibromyalgia M79.7 [facility] [address] [address]- 4641 06 Feb, 2016 Migraine without aura and without status migrainosus, not intractable G43.009 [facility] [address], [place] [address]- 2751 Jan, [facility] [address] [place] [address] 30777- 2513 Jan, [facility] [id number] [place] [address] 79575- 6568 Jan, [facility] [id number] [place] [address] 33542- 4857 Jan, [facility] [address] 61430- 1381 Jan, Unsteady gait R26.81 ; Fibromyalgia M79.7 and Family history of rheumatoid arthritis Z82.61 [place] [address] 55731- 4129 Dec, [facility] [address] 54525- 4796 Dec, [place] [address] 99543- 0561 Nov, Pain in left shoulder M25.512 [place] [address] 79684- 6099 October, Viral gastroenteritis A08.4 [facility] [id number] [place] [address] 98421 -2117 October, Pain of upper abdomen R10.10 [place] [id number] [place] [address] 94583- 9508 October, Acute midline back pain, unspecified location M54.9 [place] [id number] [place] [address] 92565- 2812 Aug, Elbow pain, right M25.521 [place] [id number] [place] [address] 07742- 6768 Aug, Elbow pain, right M25.521 [place] [address] 34820- 8682 Aug, Pain of right upper extremity M79.601 [place] [id number] [place] [address] 18579- 9565 Jun, Lumbar neuritis M54.16 [place] [id number] [place] [address] 77887- 1358 May, [facility] [id number] [place] [address] 48385- 9457 Apr, Non morbid obesity due to excess calories E66.09 [facility] [address] 30669- 4609 Apr, Non morbid obesity due to excess calories E66.09 and Thoracic neuritis M54.14 [facility] [id number] [place] [address] 30165- 5404 Apr, Elbow pain, right M25.521 [facility] [address] 93366- 0112 Mar, Right elbow pain M25.521 [facility] [address] 54197- 4651 Mar, [facility] [id number] [place] [address] 10563- 8446 Feb, Urinary tract infection, site not specified 599.0 [facility] [id number] [place] [address] 40387- 3045 Feb, [facility] [id number] [place] [address] 88262- 8245 Jan, Spider bite 989.5 [place] [id number] [place] [address] 89917- 6735 Jan, Spider bite 989.5 [facility] [id number] [place] [address] 50050- 6949 Jan, Spider bite 989.5 [facility] [id number] [place] [address] 59649- 5422 Nov, Back pain 724.5 and Diabetes 250.00 [facility] [id number] [place] [address] 14682- 9727 Nov, Back pain 724.5 and Muscle spasm of back 724.8 [facility] [id number], [place] [address]- 0761 Nov, Alternating constipation and diarrhea 787.99 [facility] [id number], [place] [address]- 3876 October, Back pain 724.5 and Hip pain 719.45 [facility] [address] [facility] [id number] [place] [address] 80376- 6096 Sep, [facility] [id number], [place] [address]- 8803 Sep, [facility] [id number] [place] [address] 87315- 8055 Aug, [facility] [id number] [place] [address] 52038- 1918 Aug, [facility] [id number] [place] [address] 10911- 9882 Aug, [facility] [address], [place] [address]- 1591 Aug, [facility] [address] [address]- 6285 Aug, [facility] [address], [place] [address]- 3540 Aug, [facility] [address] [address]- 7163 Jul, [facility] [id number] 2942 Jul, [facility] [address] [address]- 3236 Jun, [facility] [address] [address]- 0456 Jun, [facility] [address] [place] [address] [place] [address]- 4617 15 Jun, 2014 [facility] [place] [facility] [address] [id number] [place] [address]- 2179 15 Jun, 2014 [facility] [place] [facility] [address] [id number] [place] [address]- 6070 15 Jun, 2014 [facility] [place] [facility] [address] [id number] [place] [address]- 3150 Jun, [facility] [place] [facility] [address] [id number] [place] [address]- 0775 Jun, [facility] [place] [facility] [address] [id number] [place] [address]- 6853 May, [facility] [place] [facility] [address] [id number] [place] [address]- 7407 May, [facility] [place] [facility] [address] [id number] [place] [address]- 9405 May, [facility] [place] [facility] [address] [id number] [place] [address]- 7067 May, [facility] [place] [facility] [address] [id number] [place] [address]- 2242 Apr, [facility] [place] [facility] [address] [id number] [place] [address]- 3652 Apr, [facility] [place] [facility] [address] [id number] [place] [address]- 5876 Mar, [facility] [place] [facility] [address] [id number] [address]- 1658 Mar, [facility] [place] [facility] [address] [id number] [place] [address]- 0863 Mar, [facility] [place] [facility] [address] [id number] [place] [address]- 0297 Mar, [facility] [place] [facility] [address] [id number] [address]- 6034 Mar, [facility] [place] [facility] [address] [id number] [place] [address]- 5688 15 Mar, 2014 [facility] [place] [facility] [address] [id number] [place] [address]- 0509 Mar, [facility] [place] [facility] [address] [id number] [place] [address]- 0899 Mar, [facility] [place] [facility] [address] [id number] [place] [address]- 3883 Mar, [facility] [place] [facility] [address] [id number] [place] [address]- 9482 Mar, [facility] [place] [facility] [address] [id number] [place] [address]- 2228 Feb, [facility] [place] [facility] [address] [id number] [place] [address]- 9864 Feb, [facility] [place] [facility] [address] [id number] [place] [address]- 0051 Jan, [facility] [place] [facility] [address] [id number] [place] [address]- 1082 Jan, [facility] [place] [facility] [address] [id number] [place] [address]- 2431 Jan, [facility] [place] [facility] [address] [id number] [place] [address]- 1161 Jan, [facility] [place] [facility] [address] [id number] [place] [address]- 4972 Jan, [facility] [place] [facility] [address] [id number] [place] [address]- 1568 Jan, [facility] [place] [facility] [address] [id number] [place] [address]- 8146 Jan, [facility] [place] [facility] [address] [id number] [place] [address]- 2104 Jan, [facility] [place] [facility] [address] [id number] [place] [address]- 3550 Jan, [facility] [place] [facility] [address] [id number] [place] [address]- 1146 Jan, [facility] [place] [facility] [address] [id number] [place] [address]- 2149 Dec, [facility] [place] [facility] [address] [id number] [place] [address]- 9695 Dec, [facility] [place] [facility] [address] [id number] [place] [address]- 9077 Dec, [facility] [place] [facility] [address] [id number] [place] [address]- 8772 Dec, [facility] [place] [facility] [address] [id number] [place] [address]- 9531 Nov, [facility] [place] [facility] [address] [id number] [place] [address]- 7187 Nov, [facility] [place] [facility] [address] [id number] [place] [address]- 4238 Nov, [facility] [place] [facility] [address] [id number] [place] [address]- 2192 Nov, [facility] [place] [facility] [address] [id number] [place] [address]- 9094 October, [facility] [place] [facility] [address] [id number] [place] [address]- 3576 October, [facility] [place] [facility] [address] [id number] [place] [address]- 5520 Sep, [facility] [place] [facility] [address] [id number] [place] [address]- 9627 Sep, [facility] [place] [facility] [address] [id number] [place] [address]- 3583 Sep, [facility] [place] [facility] [address] [id number] [place] [address]- 7868 Sep, [facility] [place] [facility] [address] [id number] [place] [address]- 9613 Sep, [facility] [place] [facility] [address] [id number] [place] [address]- 2638 Sep, [facility] [place] [facility] [address] [id number] [place] [address]- 3167 Sep, [facility] [place] [facility] [address] [id number] [place] [address]- 6059 Sep, [facility] [place] [facility] [address] [id number] [place] [address]- 2020 Sep, [facility] [place] [facility] [address] [id number] [place] [address]- 9605 Sep, [facility] [place] [facility] [address] [id number] [place] [address]- 3182 Jul, [facility] [place] [facility] [address] [id number] [place] [address]- 8198 Jul, [facility] [place] [facility] [address] [id number] [place] [address]- 0694 Jul, [facility] [place] [facility] [address] [id number] [place] [address]- 3697 Jul, [facility] [place] [facility] [address] [id number] [place] [address]- 8103 Jun, [facility] [place] [facility] [address] [id number] [place] [address]- 3672 Jun, [facility] [place] [facility] [address] [id number] [place] [address]- 5771 Jun, [facility] [place] [facility] [address] [id number] [place] [address]- 7709 Jun, [facility] [place] [facility] [address] [id number] [place] [address]- 7962 Jun, [facility] [place] [facility] [address] [id number] [place] [address]- 0038 Jun, [facility] [place] [facility] [address] [id number] [place] [address]- 8473 Apr, [facility] [place] [facility] [address] [id number] [place] [address]- 2895 Apr, [facility] [place] [facility] [address] [id number] [place] [address]- 5918 Apr, [facility] [place] [facility] [address] [id number] [place] [address]- 1757 Apr, [facility] [place] [facility] [address] [id number] [place] [address]- 1257 Apr, [facility] [place] [facility] [address] [id number] [place] [address]- 6465 Apr, [facility] [place] [facility] [address] [id number] [place] [address]- 4756 Apr, [facility] [place] [facility] [address] [id number] [place] [address]- 8085 Apr, [facility] [place] [facility] [address] [id number] [place] [address]- 9765 Mar, [facility] [place] [facility] [address] [id number] [place] [address] Mar, [facility] [place] [facility] [address] [id number] [place] [address] Feb, [facility] [place] [facility] [address] [id number] [place] [address] Feb, [facility] [place] [facility] [address] [id number] [place] [address] Dec, [facility] [place] [facility] [address] [id number] [place] [address] Dec, [facility] [place] [facility] [address] [id number] [place] [address] Dec, [facility] [place] [facility] [address] [id number] [place] [address] Dec, [facility] [address] [id number] [place] [address] Dec, [facility] [place] [facility] [address] [id number] [place] [address] Dec, [facility] [address] [id number] [place] [address] Dec, [facility] [place] [facility] [address] [id number] [place] [address] Nov, [facility] [address] [id number] [place] [address] Nov, [facility] [address] [id number] [place] [address] Nov, [facility] [address] [id number] [place] [address] Nov, [facility] [address] [id number] [place] [address] October, [facility] [address] [id number] [place] [address] October, [facility] [address] [id number] [place] [address] October, [facility] [address] [id number] [place] [address] October, [facility] [place] [facility] [address] [id number] [place] [address] Sep, [facility] [place] [facility] [address] [id number] [place] [address] Aug, [facility] [place] [facility] [address] [id number] [place] [address] Aug, [facility] [place] [facility] [address] [id number] [place] [address] Aug, [facility] [place] [facility] [address] [id number] [place] [address] Aug, [facility] [place] [facility] [address] [id number] [place] [address] Aug, [facility] [place] [facility] [address] [id number] [place] [address] Jul, [facility] [place] [facility] [address] [id number] [place] [address] 25[address] Jul, [facility] [place] [facility] [address] [id number] [place] [address] Jul, [facility] [place] [facility] [address] [id number] [place] [address] Jul, [facility] [place] [facility] [address] [id number] [place] [address] Jul, [facility] [place] [facility] [address] [id number] [place] [address] Jul, [facility] [place] [facility] [address] [id number] [place] [address] Jul, [facility] [place] [facility] [address] [id number] [place] [address] 15 Jul, 2012 [facility] [place] [facility] [address] [id number] [place] [address] 14 Jul, 2012 [facility] [place] [facility] [address] [id number] [place] [address] Jul, [facility] [place] [facility] [address] [id number] [place] [address] Jun, [facility] [place] [facility] [address] [id number] [place] [address] 24 Jun, 2012 [facility] [place] [facility] [address] [id number] [place] [address] Jun, [facility] [place] [facility] [address] [id number] [place] [address] May, [facility] [place] [facility] [address] [id number] [place] [address] May, [facility] [place] [facility] [address] [id number] [place] [address] Apr, [facility] [place] [facility] [address] [id number] [place] [address] Apr, [facility] [place] [facility] [address] [id number] [place] [address] Apr, [facility] [place] [facility] [address] [id number] [place] [address] Apr, [facility] [place] [facility] [address] [id number] [place] [address] Apr, [facility] [place] [facility] [address] [id number] [place] [address] 164[address] Apr, [facility] [place] [facility] [address] [id number] [place] [address] 1514 Apr, [facility] [place] [facility] [address] [id number] [place] [address] Apr, [facility] [place] [facility] [address] [facility] [id number] [place] [address] Mar, [facility] [place] [facility] [address] [id number] [place] [address] 31 Mar, 2012 [facility] [place] [facility] [address] [id number], [place] [address] 31 Mar, 2012 [facility] [place] [facility] [address] [id number] [place] [address] 31 Mar, 2012 [facility] [place] [facility] [address] [facility] [id number] [place] [address] 9797 15 Mar, 2012 [facility] [place] [facility] [address] [id number], [place] [address] 15 Mar, 2012 [facility] [place] [facility] [address] [id number] [place] [address] 16[address] Mar, [facility] [place] [facility] [address] [id number] [place] [address] 1666 Mar, [facility] [place] [facility] [address] [id number] [place] [address] 2546 Mar, [facility] [place] [facility] [address] [id number] [place] [address] Feb, [facility] [place] [facility] [address] [id number] [place] [address] Jan, [facility] [place] [facility] [address] [id number] [place] [address] Jan, [facility] [place] [facility] [address] [id number] [place] [address] Jan, [facility] [place] [facility] [address] [id number] [place] [address] Dec, [facility] [place] [facility] [address] [id number] [place] [address] 30[address] Dec, [facility] [place] [facility] [address] [id number] [place] [address] Dec, [facility] [place] [facility] [address] [id number] [place] [address] 2585 Nov, [facility] [place] [facility] [address] [id number] [place] [address] October, [facility] [place] [facility] [address] [id number] [place] [address] 47[address] October, [facility] [place] [facility] [address] [id number] [place] [address] 89[address] October, [facility] [place] [facility] [address] [id number] [place] [address] 73[address] October, [facility] [place] [facility] [address] [id number] [place] [address] 395[address] October, [facility] [place] [facility] [address] [id number] [place] [address]37 30 Sep, 2011 [facility] [place] [facility] [address] [id number] [place] [address] 23 Sep, 2011 [facility] [place] [facility] [address] [id number] [place] [address] 3146 13 Sep, 2011 [facility] [place] [facility] [address] [id number] [place] [address] Sep, [facility] [place] [facility] [address] [id number] [place] [address] 3[address] Sep, [facility] [place] [facility] [address] [id number] [place] [address] 30[address] Sep, [facility] [place] [facility] [address] [id number] [place] [address] Sep, [facility] [place] [facility] [address] [id number] [place] [address] 28 Aug, 2011 [facility] [place] [facility] [address] [id number] [place] [address] 7914 23 Aug, 2011 [facility] [place] [facility] [address] [id number] [place] [address] Aug, [facility] [place] [facility] [address] [id number] [place] [address] 21 Aug, 2011 [facility] [place] [facility] [address] [id number] [place] [address] 7608 20 Aug, 2011 [facility] [place] [facility] [address] [id number] [place] [address]77 19 Aug, 2011 [facility] [place] [facility] [address] [id number] [place] [address]- 1604 16 Aug, 2011 [facility] [place] [facility] [address] [id number] [place] [address] 15 Aug, 2011 [facility] [place] [facility] [address] [id number] [place] [address]- 8786 15 Aug, 2011 [facility] [address] [id number] [place] [address] 7826 14 Aug, 2011 [facility] [place] [facility] [address] [id number] [place] [address] 2546 12 Aug, 2011 [facility] [address] [id number] [place] [address]- 1726 08 Aug, 2011 [facility] [place] [facility] [address] [id number] [place] [address] 2166 15 Jul, 2011 [facility] [place] [facility] [address] [id number] [place] [address]- 4086 15 Jul, 2011 [facility] [place] [facility] [address] [id number] [place] [address] 9946 14 Jul, 2011 [facility] [place] [facility] [address] [id number] [place] [address] 2541 06 Jul, 2011 [facility] [address] [id number] [place] [address] 27[address] Jul, [facility] [place] [facility] [address] [id number] [place] [address] 8026 Jun, [facility] [address] [id number] [place] [address] 0424 Jun, [facility] [place] [facility] [address] [id number] [place] [address] 1796 Jun, [facility] [place] [facility] [address] [id number] [place] [address] 2549 May, [facility] [place] [facility] [address] [id number] [place] [address] 2546 May, [facility] [place] [facility] [address] [id number] [place] [address] 2546 May, [facility] [place] [facility] [address] [id number] [place] [address]18 19 May, 2011 [facility] [place] [facility] [address] [id number] [place] [address] 6322 14 May, 2011 [facility] [place] [facility] [address] [id number] [place] [address]- 5757 16 Apr, 2011 [facility] [place] [facility] [address] [id number] [place] [address]- 5736 16 Apr, 2011 [facility] [place] [facility] [address] [id number] [place] [address]- 8014 15 Apr, 2011 [facility] [place] [facility] [address] [id number] [place] [address]- 0886 14 Apr, 2011 [facility] [place] [facility] [address] [id number] [place] [address]- 3449 25 Mar, 2011 [facility] [place] [facility] [address] [id number] [place] [address]- 2787 24 Mar, 2011 [facility] [place] [facility] [address] [id number], [place] [address] Mar, [facility] [place] [facility] [address] [id number] [place] [address]- 7572 19 Mar, 2011 [facility] [place] [facility] [address] [id number], [place] [address]- 5668 17 Mar, 2011 [facility] [place] [facility] [address] [id number], [place] [address]- 4343 17 Mar, 2011 [facility] [place] [facility] [address] [id number], [place] [address] 74[address] 16 Feb, 2011 [facility] [place] [facility] [address] [id number], [place] [address] 1398 10 Nov, 2010 [facility] [place] [facility] [address] [id number], [place] [address] 4742 17 Aug, 2010 [facility] [place] [facility] [address] [id number], [place] [address] 7970 11 Apr, 2010 [facility] [place] [facility] [address] [facility] [id number] [place] [address]- 3918 16 Mar, 2010 [facility] [address] [facility] [id number], [place] [address] 66[address] Apr, [facility] [address] [facility] [id number], [place] [address] 7[address] Apr, [facility] [address] [facility] [id number], [place] [address] 379[address] Sep, [facility] [address] [facility] [id number], [place] [address] 8[address] Mar, IMMUNIZATIONS No Known Immunizations SOCIAL HISTORY Never Assessed REASON FOR VISIT Hypertension and lab review-Henry REED PLAN OF CARE VITAL SIGNS Height 63 in 2017-09-28 Weight 231.0 lbs 2017-09-28 Temperature 98.4 degrees Fahrenheit 2017-09-28 Heart Rate 94 bpm 2017-09-28 Respiratory Rate 20 2017-09-28 BMI 40.92 kg/m2 2017-09-28 Blood pressure systolic 148 mmHg 2017-09-28 Blood pressure diastolic 92 mmHg 2017-09-28 MEDICATIONS Medication Instructions Dosage Frequency Start Date End Date Duration Status Glucocard Expression Monitor w/Device as directed Aug, Active Mirtazapine 15 MG Orally Once a day 1 tablet at bedtime 24h Active Walker [place] [employer] - with bench seat. DX: fibromyalgia, unsteady gait as directed Jan, Active Lyrica 150 MG Orally 3 times a day 1 capsule 8h Mar, 90 days Active Proventil HFA 108 (90 Base) MCG/ACT Inhalation every 4 hrs 2 puffs as needed 4h Aug, Active Propranolol HCl 40 mg Orally Twice a day 1 tablet 12h October, 30 days Active Crestor 10 mg Orally Once a day 1 tablet 24h Feb, Active Wheelchair 1 use as needed for acitivity assistance Nov, Active Pantoprazole Sodium 40 mg Orally Once a day 1 tablet 24h May, 90 days Active Metformin HCl 500 MG Orally Twice a day 2 tablets 12h Nov, Active Glucocard Expression Test - test blood sugar Aug, Active Albuterol Sulfate (2.5 MG/3ML) 0.083% Inhalation Three times a day 3 ml 8h Aug, Active Micardis 20 MG Orally Once a day 1 tablet by Oral route 1 time per day 24h 15 Jun, 2014 90 days Active Cymbalta 60 MG Orally Once a day 1 capsule 24h Active RESULTS No Results PROCEDURES No Known [...]
--- OUTSIDE RECORDS SUMMARY | 2018-06-19 13:27 | XMS REPORT ---
Author Author ARISTEO ARAYA Organization [facility] Address [address] [place] [address] Care Team Providers Care Program Director [employer] Name Role Phone ARISTEO ARAYA Unavailable PROBLEMS Type Condition ICD9-CM Code YKI33-CG Code Onset Dates Condition Status SNOMED Code Problem Non morbid obesity due to excess calories E66.09 Active 496215078 Problem Unsteady gait R26.81 Active 01224611 Problem Eosinophilic colitis K52.82 Active 05847602 Problem Acute right-sided low back pain with right-sided sciatica M54.41 Active 533334562 Problem Paresthesias in left hand R20.2 Active 599985766 Problem Non morbid obesity E66.9 Active 789307263 Problem Other chronic gastritis without hemorrhage K29.50 Active 2322185 Problem GERD with esophagitis K21.0 Active 947716548 Problem Sacral pain M53.3 Active 84048537 Problem Fibromyalgia M79.7 Active 248050474 Problem Other chronic pain G89.29 Active 45817668 Problem Bronchitis J40 Active 97952242 Problem Migraine without aura and without status migrainosus, not intractable G43.009 Active 773413308 Problem Hypertension, benign I10 Active 49255251 ALLERGIES Substance Reaction Event Type Date Status Singulair Unknown Drug Allergy Sep, Active Lisinopril Unknown Drug Allergy Sep, Active metals Unknown Non Drug Allergy Sep, Active ENCOUNTERS Encounter Location Date Diagnosis [facility] [address] [address] Jan, [facility] [id number] [place] [address] 10854- 3128 Jan, Bilious vomiting with nausea R11.14 ; BMI 40.0-44.9, adult Z68.41 ; Hypertension, benign I10 and Fibromyalgia M79.7 [facility] [id number] [place] [address] 09534- 3920 Dec, Bilious vomiting with nausea R11.14 and Tachycardia R00.0 [place] [address] [address]- 4911 Nov, [facility] [address] [address]- 1109 Nov, BMI 40.0-44.9, adult Z68.41 ; Leg edema R60.0 and Hypertension, benign I10 [place] [address] 83314- 8530 Nov, [place] [address] 71682- 8586 October, Thoracic neuritis M54.14 [place] [address] 08752- 2689 October, Acute right hip pain M25.551 [place] [address] 46178- 0169 October, [facility] [address] 45795- 0350 Sep, Hypertension, benign I10 and Acute right-sided low back pain with right-sided sciatica M54.41 [place] [address] 23347- 8072 Sep, Fibromyalgia M79.7 and Hypertension, benign I10 [place] [address] [place] [id number] [place] [address] 32958- 3828 Aug, [place] [address] 59676- 1922 Aug, Fibromyalgia M79.7 ; Frequent headaches R51 and Non morbid obesity due to excess calories E66.09 [place] [address] 04307- 0152 Jul, [place] [address] 80713- 0651 Jul, Fibromyalgia M79.7 [place] [address] 89833- 1762 Jul, Viral gastroenteritis A08.4 and Paresthesias in left hand R20.2 [place] [address] 97688- 8916 Jun, Non morbid obesity due to excess calories E66.09 [place] [address] 38648- 6968 Jun, [place] [address] 18830- 9107 Jun, Fibromyalgia M79.7 [place] [address] 06278- 6030 May, Non morbid obesity due to excess calories E66.09 and Hypertension, benign I10 [place] [address] 58729- 4494 May, GERD with esophagitis K21.[address] 58436- 1647 Apr, BMI 40.0-44.9, adult Z68.41 and Non morbid obesity E66.[address] 62396- 7462 Mar, Unsteady gait R26.81 [place] [address] 82228- 4529 Mar, Unsteady gait R26.81 ; Sacral pain M53.3 and Fibromyalgia M79.[address] 28094- 5384 Mar, Non morbid obesity due to excess calories E66.09 [place] [address] 64830- 4296 Feb, Abdominal pain, generalized R10.84 [place] [address] [place] [id number] [place] [address] 42239- 2262 18 Feb, 2017 Other chronic gastritis without hemorrhage K29.50 and H. pylori infection A04.8 [place] [address] 39083- 6981 07 Feb, 2017 Back pain 724.5 ; Pain in left shoulder M25.512 ; Fibromyalgia M79.7 and Non morbid obesity due to excess calories E66.09 [place] [address] 28003- 8397 07 Feb, 2017 BMI 40.0-44.9, adult Z68.41 [place] [address] 58102- 5135 14 Jan, 2017 Dysuria R30.0 and Acute cystitis with hematuria N30.[address] 86899- 3541 Jan, Dysuria R30.0 [place] [address] 68828- 2799 Dec, Fibromyalgia M79.7 [place] [address] 41830- 1594 Dec, Screening for diabetes mellitus Z13.1 and Fibromyalgia M79.7 [place] [address] 28025- 4694 Dec, Fibromyalgia M79.7 [place] [address] 90602- 0672 Dec, [place] [address] 03545- 7429 Dec, Fibromyalgia M79.7 [place] [address] 17034- 6783 Nov, Foreign body in foot, left, initial encounter S90.852A [place] [address] 40962- 3973 Nov, Viral gastroenteritis A08.4 [place] [address] [place] [id number] [place] [address] 08485- 8033 Nov, Fall, initial encounter W19.XXXA ; Post-traumatic headache, unspecified, not intractable G44.309 ; Dizziness R42 ; Unsteady gait R26.81 ; Sacral pain M53.3 and Non morbid obesity due to excess calories E66.09 [place] [address] 00875- 4253 Nov, [place] [address] 96080- 7317 Nov, [place] [address] 63547- 4451 October, Non morbid obesity due to excess calories E66.09 and Hypertension, benign I10 [address] 86224- 5769 October, Fibromyalgia M79.7 [place] [address] 60946- 8520 Sep, [place] [address] 40339- 0936 Sep, [place] [address] 11508- 4420 Sep, Eosinophilic colitis K52.82 [place] [address] 03458- 0876 Aug, Bronchitis J40 [place] [address] [place] [id number] [place] [address] 32192- 6694 Aug, [place] [address] 28483- 6318 Aug, Pain in left shoulder M25.512 ; Bronchitis J40 ; Acute midline back pain, unspecified location M54.9 ; Migraine without aura and without status migrainosus, not intractable G43.009 ; Fibromyalgia M79.7 and Pain of upper abdomen R10.10 [facility] [id number] [place] [address] 07855- 2424 Aug, [place] [address] [place] [id number] [place] [address] 09810- 6460 Aug, [facility] [address] [place] [id number] [place] [address] 20461- 3341 Jul, Other viral agents as the cause of diseases classified elsewhere B97.89 and Acute upper respiratory infection, unspecified J06.9 [place] [address] [place] [id number] [place] [address] 40006- 4291 Jun, [facility] [address] [place] [id number] [place] [address] 06370 -4785 Jun, [place] [address] [place] [id number] [place] [address] 49774- 2899 May, Abscess L02.91 [place] [address] [place] [id number] [place] [address] 45531- 9809 May, Acute midline low back pain without sciatica M54.5 [facility] [address] [place] [id number] [place] [address] 91650 -5722 May, [place] [address] [place] [id number] [place] [address] 95860- 0778 Apr, [place] [address] [place] [id number] [place] [address] 59108- 3266 Apr, Other chronic pain G89.29 ; Pain in right shoulder M25.511 and Pain in left shoulder M25.512 [place] [address] 44354- 6500 Apr, [place] [address] [place] [id number] [place] [address] 75527- 1148 Apr, [place] [address] [place] [id number] [place] [address] 17405- 5234 Apr, Fibromyalgia M79.7 ; Other chronic pain G89.29 and Pain in left shoulder M25.512 [facility] [address] [place] [address] 30079- 2887 04 Apr, 2016 Bronchitis J40 [facility] [address] [place] [address] 50985- 2540 27 Mar, 2016 [facility] [id number] [place] [address] [id number] Mar, [facility] [address] [place] [id number] [place] [address] 21063 2545 29 Feb, 2015 [facility] [address] [id number] [place] [address] 65809- 5825 26 Feb, 2016 [facility] [address] [id number] [place] [address] 25615- 2548 23 Feb, 2015 [facility] [address] [place] [id number] [place] [address] 86258- 5625 22 Feb, 2015 [facility] [address] [place] [id number] [place] [address] 63591- 2545 20 Feb, 2015 [facility] [address] [place] [id number] [place] [address] 68678 2542 19 Feb, 2015 [facility] [address] [place] [address] 61553 2547 19 Feb, 2015 Dysuria R30.0 [facility] [address] [place] [id number] [place] [address] 72485 2545 19 Feb, 2015 Dysuria R30.0 [facility] [address] [place] [address] 45071 2548 16 Feb, 2015 [facility] [address] [place] [id number] [place] [address] 31112- 2547 15 Feb, 2016 Migraine, unspecified, not intractable, without status migrainosus G43.909 and Fibromyalgia M79.7 [facility] [address] [address] [id number] [place] [address] 00506932- 8095 06 Sep, 2016 Migraine without aura and without status migrainosus, not intractable G43.009 [facility] [id number] [place] [address] 58693- 2157 Jan, [facility] [address] [id number] [place] [address] 27652- 3964 Jan, [facility] [address] 66132- 1626 Jan, [facility] [address] 78243- 4193 Jan, [place] [address] 77009- 8821 Jan, Unsteady gait R26.81 ; Fibromyalgia M79.7 and Family history of rheumatoid arthritis Z82.61 [place] [address] 02305- 2222 Dec, [facility] [address] 41885- 1792 Dec, [facility] [address] [id number] [place] [address] 26981- 5598 Nov, Pain in left shoulder M25.512 [place] [address] [place] [id number] [place] [address] 95110- 0241 October, Viral gastroenteritis A08.4 [facility] [address] [id number] [place] [address] 57857 -5637 October, Pain of upper abdomen R10.10 [facility] [address] [place] [id number] [place] [address] 00746- 9452 October, Acute midline back pain, unspecified location M54.9 [facility] [address] [place] [id number] [place] [address] 34894- 9433 Aug, Elbow pain, right M25.521 [place] [address] [place] [id number] [place] [address] 97307- 7656 Aug, Elbow pain, right M25.521 [facility] [address] [id number] [place] [address] 17386- 0049 Aug, Pain of right upper extremity M79.601 [facility] [address] [place] [id number] [place] [address] 19400- 5417 Jun, Lumbar neuritis M54.16 [place] [address] 87503- 6816 May, [place] [address] 41689- 9892 Apr, Non morbid obesity due to excess calories E66.09 [place] [address] 37012- 6067 Apr, Non morbid obesity due to excess calories E66.09 and Thoracic neuritis M54.14 [place] [address] 05335- 2043 Apr, Elbow pain, right M25.521 [place] [address] 84030- 6365 Mar, Right elbow pain M25.521 [facility] [address] [id number] [place] [address] 43349- 3751 Mar, [place] [address] [place] [id number] [place] [address] 17477- 9523 Feb, Urinary tract infection, site not specified 599.0 [place] [address] [place] [id number] [place] [address] 80205- 8526 Feb, [place] [address] 04356- 9608 Jan, Spider bite 989.5 [place] [address] 63182- 8093 Jan, Spider bite 989.5 [facility] [address] [place] [address]- 1631 Jan, Spider bite 989.5 [facility] [address] 24792- 8946 10 Nov, 2014 Back pain 724.5 and Diabetes 250.00 [facility] [address] [id number] [place] [address] 24910- 6217 03 Nov, 2014 Back pain 724.5 and Muscle spasm of back 724.8 [facility] [address] 39403- 4371 Nov, Alternating constipation and diarrhea 787.99 [facility] [address] 38523- 6401 October, Back pain 724.5 and Hip pain 719.45 [facility] [id number] [place] [address] 01178- 0684 Sep, [facility] [id number] [place] [address] 52947- 6068 Sep, [facility] [id number] [place] [address] 01222- 7569 Aug, [facility] [id number] [place] [address] 67004- 7675 Aug, [facility] [id number] [place] [address] 58034- 6342 Aug, [facility] [id number] [place] [address] 81768- 7449 Aug, [facility] [id number] [place] [address] 97522- 0114 Aug, [facility] [id number] [place] [address] 78798- 6723 Aug, [facility] [id number] [place] [address] 64884- 5888 Jul, [facility] [address] [place] [address]- 9208 Jul, [facility] [place] [facility] [address] [id number] [place] [address]- 2410 Jun, [facility] [place] [facility] [address] [id number] [place] [address]- 6088 16 Jun, 2014 [facility] [place] [facility] [address] [id number] [place] [address]- 0617 Jun, [facility] [place] [facility] [address] [id number] [place] [address]- 8569 Jun, [facility] [place] [facility] [address] [id number] [place] [address]- 9471 Jun, [facility] [place] [facility] [address] [id number] [place] [address]- 0544 Jun, [facility] [place] [facility] [address] [id number] [place] [address]- 2871 Jun, [facility] [place] [facility] [address] [id number] [place] [address]- 2449 May, [facility] [place] [facility] [address] [id number] [place] [address]- 3260 May, [facility] [place] [facility] [address] [facility] [id number] [place] [address]- 5303 May, [facility] [place] [facility] [address] [id number] [place] [address]- 7668 May, [facility] [place] [facility] [address] [id number] [place] [address]- 2254 Apr, [facility] [place] [facility] [address] [id number] [place] 9351 Apr, [facility] [place] [facility] [address] [id number] [place] [address]- 2297 Mar, [facility] [place] [facility] [address] [id number] [place] [address]- 7576 Mar, [facility] [place] [facility] [address] [id number] [place] [address]- 1172 Mar, [facility] [place] [facility] [address] [id number] [place] [address]- 4919 Mar, [facility] [place] [facility] [address] [id number] [place] [address]- 7236 Mar, [facility] [place] [facility] [address] [id number] [place] [address]- 5596 Mar, [facility] [place] [facility] [address] [id number] [place] [address]- 8027 Mar, [facility] [place] [facility] [address] [id number] [place] [address]- 4660 Mar, [facility] [place] [facility] [address] [id number] [place] [address]- 4135 Mar, [facility] [place] [facility] [address] [id number] [place] [address]- 8013 Mar, [facility] [place] [facility] [address] [id number] [place] [address]- 0466 Feb, [facility] [place] [facility] [address] [id number] [place] [address]- 1225 Feb, [facility] [place] [facility] [address] [id number] [place] [address]- 8537 Jan, [facility] [place] [facility] [address] [id number] [place] [address]- 5247 Jan, [facility] [place] [facility] [address] [id number] [place] [address]- 9777 Jan, [facility] [place] [facility] [address] [id number] [place] [address]- 0419 Jan, [facility] [place] [facility] [address] [id number] [place] [address]- 7627 Jan, [facility] [place] [facility] [address] [id number] [place] [address]- 4347 Jan, [facility] [place] [facility] [address] [id number] [place] [address]- 4880 Jan, [facility] [place] [facility] [address] [id number] [place] [address]- 7114 Jan, [facility] [place] [facility] [address] [id number] [place] [address]- 6446 Jan, [facility] [place] [facility] [address] [id number] [place] [address]- 9033 Jan, [facility] [place] [facility] [address] [id number] [place] [address]- 2266 Dec, [facility] [place] [facility] [address] [id number] [place] [address]- 8931 Dec, [facility] [place] [facility] [address] [id number] [place] [address]- 9526 Dec, [facility] [place] [facility] [address] [id number] [place] [address]- 8789 Dec, [facility] [place] [facility] [address] [id number] [place] [address]- 9587 Nov, [facility] [place] [facility] [address] [id number] [place] [address]- 6358 Nov, [facility] [place] [facility] [address] [id number] [place] [address]- 2335 Nov, [facility] [place] [facility] [address] [id number] [place] [address]- 8133 Nov, [facility] [place] [facility] [address] [id number] [place] [address]- 5975 October, [facility] [place] [facility] [address] [id number] [place] [address]- 3873 October, [facility] [place] [facility] [address] [id number] [place] [address]- 4027 Sep, [facility] [place] [facility] [address] [id number] [place] [address]- 8012 14 Sep, 2013 [facility] [place] [facility] [address] [id number] [place] [address]- 8296 Sep, [facility] [place] [facility] [address] [id number] [place] [address]- 4477 Sep, [facility] [place] [facility] [address] [id number] [place] [address]- 9001 Sep, [facility] [place] [facility] [address] [id number] [place] [address]- 9059 Sep, [facility] [place] [facility] [address] [id number] [place] [address]- 6062 Sep, [facility] [place] [facility] [address] [id number] [place] [address]- 3956 Sep, [facility] [place] [facility] [address] [id number] [place] [address]- 4186 Sep, [facility] [place] [facility] [address] [id number] [place] [address]- 9580 Sep, [facility] [place] [facility] [address] [id number] [place] [address]- 9676 Jul, [facility] [place] [facility] [address] [id number] [place] [address]- 2545 Jul, [facility] [place] [facility] [address] [id number] [place] [address]- 6685 Jul, [facility] [place] [facility] [address] [id number] [place] [address]- 1411 Jul, [facility] [place] [facility] [address] [id number] [place] [address]- 2589 Jun, [facility] [place] [facility] [address] [id number] [place] [address]- 8935 Jun, [facility] [place] [facility] [address] [id number] [place] [address]- 6268 15 Jun, 2013 [facility] [place] [facility] [address] [id number] [place] [address]- 3311 15 Jun, 2013 [facility] [place] [facility] [address] [id number] [place] [address]- 0467 Jun, [facility] [place] [facility] [address] [id number] [place] [address]- 8318 Jun, [facility] [place] [facility] [address] [id number], [place] [address]- 6783 Apr, [facility] [place] [facility] [address] [id number] [place] [address]- 9981 Apr, [facility] [place] [facility] [address] [id number], [place] [address]- 7591 Apr, [facility] [place] [facility] [address] [id number] [place] [address]- 5325 Apr, [facility] [place] [facility] [address] [id number], [place] [address]- 7792 Apr, [facility] [place] [facility] [address] [id number], [place] [address]- 8739 Apr, [facility] [place] [facility] [address] [id number], [place] [address] Apr, [facility] [place] [facility] [address] [id number], [place] [address] Apr, [facility] [place] [facility] [address] [id number], [place] [address] Mar, [facility] [place] [facility] [address] [id number], [place] [address] Mar, [facility] [place] [facility] [address] [id number], [place] [address] Feb, [facility] [place] [facility] [address] [id number], [place] [address] Feb, [facility] [place] [facility] [address] [id number] [place] [address] Dec, [facility] [address] [id number] [place] [address] Dec, [facility] [place] [facility] [address] [id number] [place] [address] Dec, [facility] [address] [id number] [place] [address] Dec, [facility] [place] [facility] [address] [id number] [place] [address] Dec, [facility] [address] [id number] [place] [address] Dec, [facility] [address] [id number] [place] [address] Dec, [facility] [address] [id number] [place] [address] Nov, [facility] [address] [id number] [place] [address] Nov, [facility] [place] [facility] [address] [id number] [place] [address] Nov, [facility] [address] [id number] [place] [address] Nov, [facility] [address] [id number] [place] [address]- [address] October, [facility] [place] [facility] [address] [id number] [place] [address] October, [facility] [place] [facility] [address] [id number] [place] [address] October, [facility] [place] [facility] [address] [id number] [place] [address] October, [facility] [place] [facility] [address] [id number] [place] [address] Sep, [facility] [place] [facility] [address] [id number] [place] [address]- [address] 30 Aug, 2012 [facility] [place] [facility] [address] [id number] [place] [address]- [address] 29 Aug, 2012 [facility] [place] [facility] [address] [id number] [place] [address]- [address] 22 Aug, 2012 [facility] [place] [facility] [address] [id number] [place] [address] 254 21 Aug, 2012 [facility] [address] [id number] [place] [address]- [address] 13 Aug, 2012 [facility] [place] [facility] [address] [id number] [place] [address]- [address] 27 Jul, 2012 [facility] [place] [facility] [address] [id number] [place] [address]- [address] Jul, [facility] [place] [facility] [address] [id number] [place] [address]- [address] 26 Jul, 2012 [facility] [place] [facility] [address] [id number] [place] [address] 25 Jul, 2012 [facility] [place] [facility] [address] [id number] [place] [address]- [address] 25 Jul, 2012 [facility] [place] [facility] [address] [id number] [place] [address]- [address] 23 Jul, 2012 [facility] [place] [facility] [address] [id number] [place] [address] 20 Jul, 2012 [facility] [place] [facility] [address] [id number] [place] [address]- [address] 15 Jul, 2012 [facility] [place] [facility] [address] [id number] [place] [address]- [address] 14 Jul, 2012 [facility] [place] [facility] [address] [facility] [id number] [place] [address]- [address] 11 Jul, 2012 [facility] [place] [facility] [address] [id number] [place] [address]- [address] Jun, [facility] [address] [id number] [place] [address]- [address] Jun, [facility] [place] [facility] [address] [id number] [place] [address] Jun, [facility] [address] [id number] [place] [address] May, [facility] [place] [facility] [address] [id number] [place] [address] May, [facility] [address] [id number] [address], [place] [address] Apr, [facility] [address] [id number] [place] [address] Apr, [facility] [address] [id number] [place] [address] Apr, [facility] [address] [id number] [place] [address] Apr, [facility] [place] [facility] [address] [id number] [place] [address] Apr, [facility] [address] [facility] [id number] [place] [address] Apr, [facility] [place] [facility] [address] [id number] [place] [address] Apr, [facility] [place] [facility] [address] [id number] [place] [address] Apr, [facility] [place] [facility] [address] [id number] [place] [address] Mar, [facility] [place] [facility] [address] [id number] [place] [address] Mar, [facility] [place] [facility] [address] [id number] [place] [address] Mar, [facility] [place] [facility] [address] [id number] [place] [address] 2569 Mar, [facility] [place] [facility] [address] [id number] [place] [address] 16[address] Mar, [facility] [place] [facility] [address] [id number] [place] [address] Mar, [facility] [place] [facility] [address] [id number] [place] [address] Mar, [facility] [place] [facility] [address] [id number] [place] [address] Mar, [facility] [place] [facility] [address] [id number] [place] [address]79 Mar, [facility] [place] [facility] [address] [id number] [place] [address] 17[address] Feb, [facility] [place] [facility] [address] [id number] [place] [address] 0928 Jan, [facility] [place] [facility] [address] [id number] [place] [address]- 0186 Jan, [facility] [place] [facility] [address] [id number] [place] [address] 3077 Jan, [facility] [place] [facility] [address] [id number] [place] [address] 12[address] Dec, [facility] [place] [facility] [address] [id number], [place] [address] Dec, [facility] [place] [facility] [address] [id number] [place] [address] Dec, [facility] [place] [facility] [address] [id number] [place] [address] 4806 Nov, [facility] [place] [facility] [address] [id number], [place] [address] October, [facility] [place] [facility] [address] [id number], [place] [address] October, [facility] [address] [id number] [place] [address] October, [facility] [place] [facility] [address] [id number] [place] [address] 4[address] October, [facility] [place] [facility] [address] [id number] [place] [address]- 2856 October, [facility] [place] [facility] [address] [id number] [place] [address]- [address] 30 Sep, 2011 [facility] [place] [facility] [address] [id number] [place] [address]- 2011 Sep, [facility] [place] [facility] [address] [id number] [place] [address] 3199 Sep, [facility] [address] [id number] [place] [address]- 8510 Sep, [facility] [place] [facility] [address] [id number] [place] [address]237 Sep, [facility] [place] [facility] [address] [id number] [place] [address] 2037 Sep, [facility] [place] [facility] [address] [id number] [place] [address] 2416 Sep, [facility] [place] [facility] [address] [id number] [place] [address] Aug, [facility] [place] [facility] [address] [id number] [place] [address] 49[address] Aug, [facility] [place] [facility] [address] [id number] [place] [address]- 6875 Aug, [facility] [place] [facility] [address] [id number] [place] [address] 5223 Aug, [facility] [place] [facility] [address] [id number] [place] [address] 6715 20 Aug, 2011 [facility] [place] [facility] [address] [id number] [place] [address]- 4554 19 Aug, 2011 [facility] [place] [facility] [address] [id number] [place] [address]- 3544 16 Aug, 2011 [facility] [place] [facility] [address] [id number] [place] [address] 6366 15 Aug, 2011 [facility] [place] [facility] [address] [id number] [place] [address]- 0025 15 Aug, 2011 [facility] [place] [facility] [address] [id number] [place] [address] 0982 14 Aug, 2011 [facility] [place] [facility] [address] [id number] [place] [address] 8[address] 12 Aug, 2011 [facility] [place] [facility] [address] [id number] [place] [address]- 3632 08 Aug, 2011 [facility] [place] [facility] [address] [id number] [place] [address]- 6835 15 Jul, 2011 [facility] [place] [facility] [address] [id number] [place] [address]- 0310 15 Jul, 2011 [facility] [place] [facility] [address] [id number] [place] [address]- 8406 14 Jul, 2011 [facility] [place] [facility] [address] [id number] [place] [address]- [address] 06 Jul, 2011 [facility] [place] [facility] [address] [id number] [place] [address]- 3585 02 Jul, 2011 [facility] [place] [facility] [address] [id number] [place] [address] 4037 Jun, [facility] [place] [facility] [address] [id number] [place] [address]- 1276 04 Jun, 2011 [facility] [place] [facility] [address] [id number] [place] [address]- 4370 Jun, [facility] [place] [facility] [address] [id number] [place] [address]- 7897 29 May, 2011 [facility] [place] [facility] [address] [id number] [place] [address] 5922 May, [facility] [place] [facility] [address] [id number] [place] [address] 19 May, 2011 [facility] [place] [facility] [address] [id number] [place] [address]- 3268 19 May, 2011 [facility] [place] [facility] [address] [id number] [place] [address]- 4458 14 May, 2011 [facility] [place] [facility] [address] [id number] [place] [address]- 9670 16 Apr, 2011 [facility] [place] [facility] [address] [id number] [place] [address]- 0524 16 Apr, 2011 [facility] [place] [facility] [address] [id number] [place] [address]- 7355 15 Apr, 2011 [facility] [place] [facility] [address] [id number] [place] [address]- 0140 14 Apr, 2011 [facility] [place] [facility] [address] [id number] [place] [address]- 6603 25 Mar, 2011 [facility] [place] [facility] [address] [id number] [place] [address]- 8940 24 Mar, 2011 [facility] [place] [facility] [address] [id number], [place] [address] 1560 Mar, [facility] [place] [facility] [address] [id number], [place] [address] 2039 19 Mar, 2011 [facility] [place] [facility] [address] [id number] [place] [address]- 1132 17 Mar, 2011 [facility] [place] [facility] [address] [id number], [place] [address] 8742 17 Mar, 2011 [facility] [place] [facility] [address] [id number] [place] [address]- 7449 16 Feb, 2011 [facility] [place] [facility] [id number], [place] [address] 10 Nov, 2010 [facility] [id number], [place] [address] Aug, [facility] [id number], [place] [address] 4[address] Apr, [facility] [id number] [place] [address]184 Mar, [facility] [id number] [place] [address]- 8390 Apr, [facility] [id number] [place] [address]- 0478 Apr, [facility] [id number] [place] [address]- 8455 Sep, [facility] [id number], [place] [address] Mar, IMMUNIZATIONS Vaccine Route Administration Date Status TORADOL (IM) 60 MG/2ML (UP TO 15 MG) IM Intramuscular October 05, 2017 Administered SOCIAL HISTORY Never Assessed REASON FOR VISIT Pain (acute)hip, right, starts in lower back and radiates to right groin---- DBennettRN, started yesterday, denies injury PLAN OF CARE VITAL SIGNS Height 63 in 2017-10-05 Weight 229 lbs 2017-10-05 Temperature 98.2 degrees Fahrenheit 2017-10-05 Heart Rate 100 bpm 2017-10-05 Respiratory Rate 20 2017-10-05 BMI 40.56 kg/m2 2017-10-05 Blood pressure systolic 142 mmHg 2017-10-05 Blood pressure diastolic 100 mmHg 2017-10-05 MEDICATIONS Medication Instructions Dosage Frequency Start Date End Date Duration Status Albuterol Sulfate (2.5 MG/3ML) 0.083% Inhalation Three times a day 3 ml 8h Aug, Active Mirtazapine 15 MG Orally Once a day 1 tablet at bedtime 24h Active Glucocard Expression Monitor w/Device as directed Aug, Active Glucocard Expression Test - test blood sugar Aug, Active Walker [place] [employer] - with bench seat. DX: fibromyalgia, unsteady gait as directed Jan, Active PredniSONE 20 mg Orally Once a day 2 tablets 24h Sep, October, 05 days Active Propranolol HCl 40 mg Orally Twice a day 1 tablet 12h October, 90 days Active Wheelchair 1 use as needed for acitivity assistance Nov, Active Metformin HCl 500 MG Orally Twice a day 2 tablets 12h 10 Nov, 2014 Active Lyrica 150 MG Orally 3 times a day 1 capsule 8h Mar, 90 days Active Pantoprazole Sodium 40 mg Orally Once a day 1 tablet 24h May, 90 days Active Cymbalta 60 MG Orally Once a day 1 capsule 24h Active Proventil HFA 108 (90 Base) MCG/ACT Inhalation every 4 hrs 2 puffs as needed 4h Aug, Active Crestor 10 mg Orally Once a day 1 tablet 24h Feb, Active Micardis 20 MG Orally Once a day 1 tablet by Oral route 1 time per day 24h Jun, 90 days Active RESULTS No Results PROCEDURES Procedure Date Ordered Result Body Site TORADOL (IM) 60 MG/2ML (UP TO 15 MG) October 05, 2017 THER/PROPH/DIAG INJ, SC/IM October 05, 2017 INSTRUCTIONS MEDICATIONS ADMINISTERED No Known Medications [...]
--- OUTSIDE RECORDS SUMMARY | 2018-06-19 13:28 | XMS REPORT ---
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 Name Role Phone ARISTEO ARAYA Unavailable PROBLEMS Type Condition ICD9-CM Code [id number] Code Onset Dates Condition Status SNOMED Code Problem Non morbid obesity due to excess calories E66.09 Active 385475946 Problem Unsteady gait R26.81 Active 01551022 Problem Eosinophilic colitis K52.82 Active 54439933 Problem Acute right-sided low back pain with right-sided sciatica M54.41 Active 749480262 Problem Paresthesias in left hand R20.2 Active 446087762 Problem Non morbid obesity E66.9 Active 998435025 Problem Other chronic gastritis without hemorrhage K29.50 Active 5401658 Problem GERD with esophagitis K21.0 Active 808349421 Problem Sacral pain M53.3 Active 41406966 Problem Fibromyalgia M79.7 Active 294695638 Problem Other chronic pain G89.29 Active 27408451 Problem Bronchitis J40 Active 50487121 Problem Migraine without aura and without status migrainosus, not intractable G43.009 Active 518044425 Problem Hypertension, benign I10 Active 05592349 ALLERGIES Substance Reaction Event Type Date Status Singulair Unknown Drug Allergy Aug, Active Lisinopril Unknown Drug Allergy Aug, Active metals Unknown Non Drug Allergy Aug, Active ENCOUNTERS Encounter Location Date Diagnosis [facility] [id number] [address] Dec, Bilious vomiting with nausea R11.14 and Tachycardia R00.0 [facility] [id number] [address] Nov, [facility] [id number] [address] Nov, BMI 40.0-44.9, adult Z68.41 ; Leg edema R60.0 and Hypertension, benign I10 [place] [address] [address]- [address] Nov, [place] [address] 8[address]17- 3587 October, Thoracic neuritis M54.14 [place] [address] 21996- 7787 October, Acute right hip pain M25.551 [place] [address] 24129- 9391 October, [place] [address] 39433- 8136 Sep, Hypertension, benign I10 and Acute right-sided low back pain with right-sided sciatica M54.41 [place] [address] 91946- 2263 Sep, Fibromyalgia M79.7 and Hypertension, benign I10 [place] [address] 32728- 7903 Aug, [place] [address] 49956- 9280 Aug, Fibromyalgia M79.7 ; Frequent headaches R51 and Non morbid obesity due to excess calories E66.09 [place] [address] 34424- 0113 Jul, [place] [address] 60239- 9614 Jul, Fibromyalgia M79.7 [place] [address] 77913- 7864 Jul, Viral gastroenteritis A08.4 and Paresthesias in left hand R20.2 [place] [address] 92050- 7002 Jun, Non morbid obesity due to excess calories E66.09 [place] [id number] [place] [address] 16641- 0825 17 Jun, 2017 [place] [address] 09907- 3305 Jun, Fibromyalgia M79.7 [place] [id number] [place] [address] 48748- 3391 May, Non morbid obesity due to excess calories E66.09 and Hypertension, benign I10 [place] [address] 69071- 7758 04 May, 2017 GERD with esophagitis K21.[address] [address]27- 4398 Apr, BMI 40.0-44.9, adult Z68.41 and Non morbid obesity E66.[address] 95744- 0267 Mar, Unsteady gait R26.81 [place] [address] 37105- 1783 Mar, Unsteady gait R26.81 ; Sacral pain M53.3 and Fibromyalgia M79.7 [id number] [place] [address] 70062- 0387 Mar, Non morbid obesity due to excess calories E66.09 [place] [id number] [place] [address] 84341- 9915 28 Feb, 2017 Abdominal pain, generalized R10.[address] 04158- 1127 18 Feb, 2017 Other chronic gastritis without hemorrhage K29.50 and H. pylori infection A04.8 [place] [id number] [place] [address] 87315- 0273 07 Feb, 2017 Back pain 724.5 ; Pain in left shoulder M25.512 ; Fibromyalgia M79.7 and Non morbid obesity due to excess calories E66.09 [place] [id number] [place] [address] 89782- 9137 07 Feb, 2017 BMI 40.0-44.9, adult Z68.41 [place] [address] 04945- 6538 Jan, Dysuria R30.0 and Acute cystitis with hematuria N30.01 [place] [address] 55118- 6032 Jan, Dysuria R30.0 [place] [address] 29476- 5376 Dec, Fibromyalgia M79.7 [place] [address] 79528- 4899 Dec, Screening for diabetes mellitus Z13.1 and Fibromyalgia M79.7 [place] [address] 47882- 0310 Dec, Fibromyalgia M79.7 [place] [address] 57482- 0961 Dec, [place] [address] 03773- 1020 Dec, Fibromyalgia M79.7 [place] [address] 17456- 6254 Nov, Foreign body in foot, left, initial encounter S90.852A [place] [id number] [place] [address] 88318- 3020 Nov, Viral gastroenteritis A08.4 [place] [address] 56830- 9774 09 Nov, 2016 Fall, initial encounter W19.XXXA ; Post-traumatic headache, unspecified, not intractable G44.309 ; Dizziness R42 ; Unsteady gait R26.81 ; Sacral pain M53.3 and Non morbid obesity due to excess calories E66.09 [facility] [id number] [place] [address] 10397- 3014 Nov, [facility] [id number] [place] [address] 82948- 5202 Nov, [facility] [id number] [place] [address] 15476- 7453 October, Non morbid obesity due to excess calories E66.09 and Hypertension, benign I10 [facility] [address] 40632- 0661 October, Fibromyalgia M79.7 [facility] [address] 25302- 8959 Sep, [facility] [address] 31999- 5300 Sep, [facility] [address] 39430- 5919 Sep, Eosinophilic colitis K52.82 [facility] [id number] [place] [address] 52222- 1694 Aug, Bronchitis J40 [facility] [id number] [place] [address] 95354- 8870 Aug, [facility] [id number] [place] [address] 58875- 1210 Aug, Pain in left shoulder M25.512 ; Bronchitis J40 ; Acute midline back pain, unspecified location M54.9 ; Migraine without aura and without status migrainosus, not intractable G43.009 ; Fibromyalgia M79.7 and Pain of upper abdomen R10.10 [facility] [id number] [place] [address] 62091- 5570 Aug, [facility] [address] 62037- 1378 Aug, [facility] [address] 30273- 8243 Jul, Other viral agents as the cause of diseases classified elsewhere B97.89 and Acute upper respiratory infection, unspecified J06.9 [facility] [id number] [place] [address] 82945- 6754 Jun, [facility] [id number] [place] [address] 30373 -1586 Jun, [facility] [id number] [place] [address] 93883- 9109 May, Abscess L02.91 [facility] [id number] [place] [address] 79189- 0180 May, Acute midline low back pain without sciatica M54.5 [facility] [id number] [place] [address] 17197 -2760 May, [facility] [id number] [place] [address] 40344- 6623 Apr, [facility] [id number] [place] [address] 23660- 4648 Apr, Other chronic pain G89.29 ; Pain in right shoulder M25.511 and Pain in left shoulder M25.512 [facility] [address] [place] [address] 98463- 8909 16 Apr, 2016 [facility] [id number] [place] [address] 58349- 9317 Apr, [facility] [id number] [place] [address] 11958- 8140 Apr, Fibromyalgia M79.7 ; Other chronic pain G89.29 and Pain in left shoulder M25.512 [place] [id number] [place] [address] 05240- 6271 04 Apr, 2016 Bronchitis J40 [facility] [id number] [place] [address] 74363- 1480 Mar, [place] [id number] [place] [id number] Mar, [facility] [address] [address]- 3809 29 Feb, 2015 [facility] [id number] [place] [address] 89564- 7624 26 Feb, 2015 [facility] [id number] [place] [address] 53251- 0956 23 Feb, 2015 [facility] [id number] [place] [address] 77952- 1057 22 Feb, 2015 [facility] [id number] [place] [address] 60384- 2732 20 Feb, 2015 [facility] [id number] [place] [address] 80569- 5963 19 Feb, 2015 [facility] [id number] [place] [address] 17997- 5757 19 Feb, 2015 Dysuria R30.0 [facility] [address] [place] [address] 84393- 3803 19 Feb, 2015 Dysuria R30.0 [facility] [id number] [place] [address] 10083- 3088 16 Feb, 2015 [facility] [address] [place] [address] 54572- 5398 15 Feb, 2016 Migraine, unspecified, not intractable, without status migrainosus G43.909 and Fibromyalgia M79.7 [facility] [address] [address]- 6979 06 Feb, 2016 Migraine without aura and without status migrainosus, not intractable G43.009 [facility] [address] [address]- 9699 Jan, [facility] [id number] [place] [address] 91065- 0155 Jan, [facility] [id number] [place] [address] 09814- 0729 Jan, [facility] [id number] [place] [address] 39783- 6231 Jan, [facility] [address] 90733- 6432 Jan, Unsteady gait R26.81 ; Fibromyalgia M79.7 and Family history of rheumatoid arthritis Z82.61 [place] [address] 61965- 1441 Dec, [facility] [address] 47876- 1081 Dec, [place] [address] 47156- 6426 Nov, Pain in left shoulder M25.512 [place] [address] 12928- 5255 October, Viral gastroenteritis A08.4 [facility] [id number] [place] [address] 04274 -5244 October, Pain of upper abdomen R10.10 [place] [id number] [place] [address] 13517- 3114 October, Acute midline back pain, unspecified location M54.9 [place] [id number] [place] [address] 66217- 2617 Aug, Elbow pain, right M25.521 [place] [id number] [place] [address] 83566- 9469 Aug, Elbow pain, right M25.521 [place] [address] 59404- 7815 Aug, Pain of right upper extremity M79.601 [place] [id number] [place] [address] 30279- 0864 Jun, Lumbar neuritis M54.16 [place] [id number] [place] [address] 29243- 6918 May, [facility] [id number] [place] [address] 85987- 5155 Apr, Non morbid obesity due to excess calories E66.09 [facility] [address] 68966- 9804 Apr, Non morbid obesity due to excess calories E66.09 and Thoracic neuritis M54.14 [facility] [id number] [place] [address] 08836- 9566 Apr, Elbow pain, right M25.521 [facility] [address] 91277- 5578 Mar, Right elbow pain M25.521 [facility] [address] 13501- 8446 Mar, [facility] [id number] [place] [address] 68714- 4009 Feb, Urinary tract infection, site not specified 599.0 [facility] [id number] [place] [address] 83143- 2224 Feb, [facility] [id number] [place] [address] 90837- 2218 Jan, Spider bite 989.5 [place] [id number] [place] [address] 18243- 5436 Jan, Spider bite 989.5 [facility] [id number] [place] [address] 17597- 7750 Jan, Spider bite 989.5 [facility] [id number] [place] [address] 35633- 0880 Nov, Back pain 724.5 and Diabetes 250.00 [facility] [id number] [place] [address] 43174- 0655 Nov, Back pain 724.5 and Muscle spasm of back 724.8 [facility] [id number] [address]- 6812 Nov, Alternating constipation and diarrhea 787.99 [facility] [id number] [address]- 1146 October, Back pain 724.5 and Hip pain 719.45 [facility] [address] [facility] [id number] [place] [address] 08033- 6116 Sep, [facility] [id number] [address]- 4316 Sep, [facility] [id number] [place] [address] 96619- 2027 Aug, [facility] [id number] [place] [address] 52247- 1984 Aug, [facility] [id number] [place] [address] 58554- 5793 Aug, [facility] [address] [address]- 6968 Aug, [facility] [address] [address]- 2816 Aug, [facility] [address] [address]- 7477 Aug, [facility] [address] [address]- 3040 Jul, [facility] [id number] 5053 Jul, [facility] [address] [address]- 8866 Jun, [facility] [address] [address]- 1103 Jun, [facility] [address] [place] [address] [place] [address]- 8481 15 Jun, 2014 [facility] [place] [facility] [address] [id number] [place] [address]- 5791 15 Jun, 2014 [facility] [place] [facility] [address] [id number] [place] [address]- 6615 15 Jun, 2014 [facility] [place] [facility] [address] [id number] [place] [address]- 8891 Jun, [facility] [place] [facility] [address] [id number] [place] [address]- 1922 Jun, [facility] [place] [facility] [address] [id number] [place] [address]- 6344 May, [facility] [place] [facility] [address] [id number] [place] [address]- 7694 May, [facility] [place] [facility] [address] [id number] [place] [address]- 2878 May, [facility] [place] [facility] [address] [id number] [place] [address]- 7464 May, [facility] [place] [facility] [address] [id number] [place] [address]- 0101 Apr, [facility] [place] [facility] [address] [id number] [place] [address]- 6440 Apr, [facility] [place] [facility] [address] [id number] [place] [address]- 9836 Mar, [facility] [place] [facility] [address] [id number] [address]- 6213 Mar, [facility] [place] [facility] [address] [id number] [place] [address]- 4029 Mar, [facility] [place] [facility] [address] [id number] [place] [address]- 4744 Mar, [facility] [place] [facility] [address] [id number] [address]- 2472 Mar, [facility] [place] [facility] [address] [id number] [place] [address]- 7013 15 Mar, 2014 [facility] [place] [facility] [address] [id number] [place] [address]- 3589 Mar, [facility] [place] [facility] [address] [id number] [place] [address]- 5084 Mar, [facility] [place] [facility] [address] [id number] [place] [address]- 6719 Mar, [facility] [place] [facility] [address] [id number] [place] [address]- 5575 Mar, [facility] [place] [facility] [address] [id number] [place] [address]- 9695 Feb, [facility] [place] [facility] [address] [id number] [place] [address]- 5012 Feb, [facility] [place] [facility] [address] [id number] [place] [address]- 8312 Jan, [facility] [place] [facility] [address] [id number] [place] [address]- 2070 Jan, [facility] [place] [facility] [address] [id number] [place] [address]- 5826 Jan, [facility] [place] [facility] [address] [id number] [place] [address]- 7757 Jan, [facility] [place] [facility] [address] [id number] [place] [address]- 7818 Jan, [facility] [place] [facility] [address] [id number] [place] [address]- 6092 Jan, [facility] [place] [facility] [address] [id number] [place] [address]- 6236 Jan, [facility] [place] [facility] [address] [id number] [place] [address]- 5871 Jan, [facility] [place] [facility] [address] [id number] [place] [address]- 6599 Jan, [facility] [place] [facility] [address] [id number] [place] [address]- 9952 Jan, [facility] [place] [facility] [address] [id number] [place] [address]- 4918 Dec, [facility] [place] [facility] [address] [id number] [place] [address]- 8379 Dec, [facility] [place] [facility] [address] [id number] [place] [address]- 4480 Dec, [facility] [place] [facility] [address] [id number] [place] [address]- 8779 Dec, [facility] [place] [facility] [address] [id number] [place] [address]- 2593 Nov, [facility] [place] [facility] [address] [id number] [place] [address]- 1088 Nov, [facility] [place] [facility] [address] [id number] [place] [address]- 2407 Nov, [facility] [place] [facility] [address] [id number] [place] [address]- 5562 Nov, [facility] [place] [facility] [address] [id number] [place] [address]- 9501 October, [facility] [place] [facility] [address] [id number] [place] [address]- 1327 October, [facility] [place] [facility] [address] [id number] [place] [address]- 6880 Sep, [facility] [place] [facility] [address] [id number] [place] [address]- 2908 Sep, [facility] [place] [facility] [address] [id number] [place] [address]- 5172 Sep, [facility] [place] [facility] [address] [id number] [place] [address]- 7300 Sep, [facility] [place] [facility] [address] [id number] [place] [address]- 1639 Sep, [facility] [place] [facility] [address] [id number] [place] [address]- 0299 Sep, [facility] [place] [facility] [address] [id number] [place] [address]- 5363 Sep, [facility] [place] [facility] [address] [id number] [place] [address]- 4829 Sep, [facility] [place] [facility] [address] [id number] [place] [address]- 6249 Sep, [facility] [place] [facility] [address] [id number] [place] [address]- 4082 Sep, [facility] [place] [facility] [address] [id number] [place] [address]- 8629 Jul, [facility] [place] [facility] [address] [id number] [place] [address]- 0837 Jul, [facility] [place] [facility] [address] [id number] [place] [address]- 9467 Jul, [facility] [place] [facility] [address] [id number] [place] [address]- 3056 Jul, [facility] [place] [facility] [address] [id number] [place] [address]- 1119 Jun, [facility] [place] [facility] [address] [id number] [place] [address] Jun, [facility] [place] [facility] [address] [id number] [place] [address] Jun, [facility] [place] [facility] [address] [id number] [place] [address] Jun, [facility] [place] [facility] [address] [id number] [place] [address] Jun, [facility] [place] [facility] [address] [id number] [place] [address] Jun, [facility] [place] [facility] [address] [id number] [place] [address] Apr, [facility] [place] [facility] [address] [id number] [place] [address] Apr, [facility] [place] [facility] [address] [id number] [place] [address] Apr, [facility] [place] [facility] [address] [id number] [place] [address]- [address] Apr, [facility] [place] [facility] [address] [id number] [place] [address] Apr, [facility] [place] [facility] [address] [id number] [place] [address]763 Apr, [facility] [place] [facility] [address] [id number] [place] [address] Apr, [facility] [place] [facility] [address] [id number] [place] [address] Apr, [facility] [place] [facility] [address] [id number] [place] [address]- [address] Mar, [facility] [place] [facility] [address] [id number] [place] [address] Mar, [facility] [place] [facility] [address] [id number] [place] [address] Feb, [facility] [place] [facility] [address] [id number] [place] [address] Feb, [facility] [place] [facility] [address] [id number] [place] [address] Dec, [facility] [place] [facility] [address] [id number] [place] [address]- 7973 Dec, [facility] [place] [facility] [address] [id number] [place] [address]- [address] Dec, [facility] [place] [facility] [address] [id number] [place] [address] Dec, [facility] [address] [id number] [place] [address] Dec, [facility] [place] [facility] [address] [id number] [place] [address]- [address]106 Dec, [facility] [address] [id number] [place] [address]- [address]36 Dec, [facility] [place] [facility] [address] [id number] [place] [address] Nov, [facility] [address] [id number] [place] [address]- [address] Nov, [facility] [address] [id number] [place] [address] Nov, [facility] [address] [id number] [place] [address] Nov, [facility] [address] [id number] [place] [address] October, [facility] [address] [id number] [place] [address] October, [facility] [address] [id number] [place] [address]- [address] October, [facility] [address] [id number] [place] [address]- [address] October, [facility] [place] [facility] [address] [id number] [place] [address] Sep, [facility] [place] [facility] [address] [id number] [place] [address] Aug, [facility] [place] [facility] [address] [id number] [place] [address] Aug, [facility] [place] [facility] [address] [id number] [place] [address]- [address]185 Aug, [facility] [place] [facility] [address] [id number] [place] [address] 254 Aug, [facility] [place] [facility] [address] [id number] [place] [address] Aug, [facility] [place] [facility] [address] [id number] [place] [address] Jul, [facility] [place] [facility] [address] [id number] [place] [address]46 Jul, [facility] [place] [facility] [address] [id number] [place] [address] 2544 Jul, [facility] [place] [facility] [address] [id number] [place] [address] Jul, [facility] [place] [facility] [address] [id number] [place] [address] 67[address] Jul, [facility] [place] [facility] [address] [id number] [place] [address] 6872 Jul, [facility] [place] [facility] [address] [id number] [place] [address] Jul, [facility] [place] [facility] [address] [id number] [place] [address] 15 Jul, 2012 [facility] [place] [facility] [address] [id number] [place] [address] 2545 14 Jul, 2012 [facility] [place] [facility] [address] [id number] [place] [address] 2540 Jul, [facility] [place] [facility] [address] [id number] [place] [address] 2541 Jun, [facility] [place] [facility] [address] [id number] [place] [address] 2547 24 Jun, 2012 [facility] [place] [facility] [address] [id number] [place] [address] Jun, [facility] [place] [facility] [address] [id number] [place] [address] 7510 May, [facility] [place] [facility] [address] [id number] [place] [address] 47[address] May, [facility] [place] [facility] [address] [id number] [place] [address] 32[address] Apr, [facility] [place] [facility] [address] [id number] [place] [address] 7277 Apr, [facility] [place] [facility] [address] [id number] [place] [address] 7870 Apr, [facility] [place] [facility] [address] [id number] [place] [address] 1189 Apr, [facility] [place] [facility] [address] [id number] [place] [address]- 4888 Apr, [facility] [place] [facility] [address] [id number] [place] [address] 0028 Apr, [facility] [place] [facility] [address] [id number] [place] [address] 8377 Apr, [facility] [place] [facility] [address] [id number] [place] [address] 9441 Apr, [facility] [place] [facility] [address] [facility] [id number] [place] [address] 7[address] Mar, [facility] [place] [facility] [address] [id number] [place] [address] 2886 31 Mar, 2012 [facility] [place] [facility] [address] [id number] [place] [address] 31 Mar, 2012 [facility] [place] [facility] [address] [id number] [place] [address] 2365 31 Mar, 2012 [facility] [place] [facility] [address] [facility] [id number] [place] [address] 0300 15 Mar, 2012 [facility] [place] [facility] [address] [id number] [place] [address] 9462 15 Mar, 2012 [facility] [place] [facility] [address] [id number] [place] [address] 2458 Mar, [facility] [place] [facility] [address] [id number] [place] [address] 7626 Mar, [facility] [place] [facility] [address] [id number] [place] [address] 2546 Mar, [facility] [place] [facility] [address] [id number] [place] [address] 6656 Feb, [facility] [place] [facility] [address] [id number] [place] [address] Jan, [facility] [place] [facility] [address] [id number] [place] [address] 5971 Jan, [facility] [place] [facility] [address] [id number] [place] [address] 8326 Jan, [facility] [place] [facility] [address] [id number] [place] [address] 7[address] Dec, [facility] [place] [facility] [address] [id number] [place] [address] 9361 Dec, [facility] [place] [facility] [address] [id number] [place] [address] 0631 Dec, [facility] [place] [facility] [address] [id number] [place] [address] 6886 Nov, [facility] [place] [facility] [address] [id number] [place] [address] 2176 October, [facility] [place] [facility] [address] [id number] [place] [address] 8645 October, [facility] [place] [facility] [address] [id number] [place] [address]- 6086 October, [facility] [place] [facility] [address] [id number] [place] [address]- 4336 October, [facility] [place] [facility] [address] [id number] [place] [address]- 6346 October, [facility] [place] [facility] [address] [id number] [place] [address]- 3398 30 Sep, 2011 [facility] [place] [facility] [address] [id number] [place] [address]- 4026 23 Sep, 2011 [facility] [place] [facility] [address] [id number] [place] [address]- 3926 13 Sep, 2011 [facility] [place] [facility] [address] [id number] [place] [address] 1439 Sep, [facility] [place] [facility] [address] [id number] [place] [address]- 3960 Sep, [facility] [place] [facility] [address] [id number] [place] [address]- 0258 Sep, [facility] [place] [facility] [address] [id number] [place] [address]- 7228 Sep, [facility] [place] [facility] [address] [id number] [place] [address]- 4382 28 Aug, 2011 [facility] [place] [facility] [address] [id number] [place] [address]- 3485 23 Aug, 2011 [facility] [place] [facility] [address] [id number] [place] [address]- 2702 Aug, [facility] [place] [facility] [address] [id number] [place] [address]- 0588 21 Aug, 2011 [facility] [place] [facility] [address] [id number] [place] [address]- 5266 20 Aug, 2011 [facility] [place] [facility] [address] [id number] [place] [address]- 8473 19 Aug, 2011 [facility] [place] [facility] [address] [id number] [place] [address]- 9415 16 Aug, 2011 [facility] [place] [facility] [address] [id number] [place] [address] 15 Aug, 2011 [facility] [place] [facility] [address] [id number] [place] [address]- 6546 15 Aug, 2011 [facility] [address] [id number] [place] [address]- 0256 14 Aug, 2011 [facility] [place] [facility] [address] [id number] [place] [address] 2546 12 Aug, 2011 [facility] [address] [id number] [place] [address]- 1596 08 Aug, 2011 [facility] [place] [facility] [address] [id number] [place] [address]- 7546 15 Jul, 2011 [facility] [place] [facility] [address] [id number] [place] [address]- 1736 15 Jul, 2011 [facility] [place] [facility] [address] [id number] [place] [address]- 0326 14 Jul, 2011 [facility] [place] [facility] [address] [id number] [place] [address] 2541 06 Jul, 2011 [facility] [address] [id number] [place] [address]- 8414 Jul, [facility] [place] [facility] [address] [id number] [place] [address]- 1764 Jun, [facility] [address] [id number] [place] [address]- 8365 Jun[facility] [place] [facility] [address] [id number] [place] [address]- 4346 Jun, [facility] [place] [facility] [address] [id number] [place] [address] 2549 May, [facility] [place] [facility] [address] [id number] [place] [address] 2546 May, [facility] [place] [facility] [address] [id number] [place] [address] 2546 May, [facility] [place] [facility] [address] [id number] [place] [address]- 2546 19 May, 2011 [facility] [place] [facility] [address] [id number] [place] [address]- 8874 14 May, 2011 [facility] [place] [facility] [address] [id number] [place] [address]- 0188 16 Apr, 2011 [facility] [place] [facility] [address] [id number] [place] [address]- 5316 16 Apr, 2011 [facility] [place] [facility] [address] [id number] [place] [address]- 0752 15 Apr, 2011 [facility] [place] [facility] [address] [id number] [place] [address]- 4485 14 Apr, 2011 [facility] [place] [facility] [address] [id number] [place] [address]- 7276 25 Mar, 2011 [facility] [place] [facility] [address] [id number] [place] [address]- 1597 24 Mar, 2011 [facility] [place] [facility] [address] [id number] [place] [address]- 6944 Mar, [facility] [place] [facility] [address] [id number] [place] [address]- 9032 19 Mar, 2011 [facility] [place] [facility] [address] [id number] [place] [address]- 9698 17 Mar, 2011 [facility] [place] [facility] [address] [id number] [place] [address]- 3657 17 Mar, 2011 [facility] [place] [facility] [address] [id number] [place] [address]- 4720 16 Feb, 2011 [facility] [place] [facility] [address] [id number] [place] [address]- 4118 10 Nov, 2010 [facility] [place] [facility] [address] [id number] [place] [address]- 3720 17 Aug, 2010 [facility] [place] [facility] [address] [id number] [place] [address]- 5639 11 Apr, 2010 [facility] [place] [facility] [address] [facility] [id number] [place] [address]- 5082 16 Mar, 2010 [facility] [address] [facility] [address] [id number] [place] [address]- 8312 Apr, [facility] [address] [facility] [address] [id number] [place] [address]- 7531 Apr, [facility] [address] [facility] [address] [id number] [place] [address]- 9070 Sep, [facility] [address] [facility] [address] [id number] [place] [address]- 8539 Mar, IMMUNIZATIONS No Known Immunizations SOCIAL HISTORY Never Assessed REASON FOR VISIT Headache every morning and the pain starts between her shoulders and moves up to her head, pain is there all day-[facility], PT is out of BP meds, needs refills PLAN OF CARE VITAL SIGNS Height 63 in 2017-08-13 Weight 228.6 lbs 2017-08-13 Temperature 98.3 degrees Fahrenheit 2017-08-13 Heart Rate 88 bpm 2017-08-13 Respiratory Rate 20 2017-08-13 BMI 40.49 kg/m2 2017-08-13 Blood pressure systolic 138 mmHg 2017-08-13 Blood pressure diastolic 92 mmHg 2017-08-13 MEDICATIONS Medication Instructions Dosage Frequency Start Date End Date Duration Status Walker [place] Wheels - with bench seat. DX: fibromyalgia, unsteady gait as directed Jan, Active Micardis 20 MG Orally Once a day 1 tablet by Oral route 1 time per day 24h Jun, 90 days Active Proventil HFA 108 (90 Base) MCG/ACT Inhalation every 4 hrs 2 puffs as needed 4h Aug, Active Glucocard Expression Monitor w/Device as directed Aug, Active Farxiga 10 mg Orally Once a day 1 tablet 24h 18 May, 2017 90 days Active Metformin HCl 1000 MG Orally Twice a day 1 tablet with meals 12h 10 Nov, 2014 30 day(s) Active Mirtazapine 15 MG Orally Once a day 1 tablet at bedtime 24h Active Pantoprazole Sodium 40 mg Orally Once a day, voucher 1st fill 1 tablet May, 30 day(s) Active Propranolol HCl 40 mg Orally Twice a day 1 tablet 12h October, 30 days Active Lyrica 150 MG Orally 3 times a day 1 capsule 8h 08 Mar, 2014 90 days Active Zofran ODT 4 MG Orally every 8 hrs 1 tablet on the tongue and allow to dissolve 8h Feb, Not-Taking Albuterol Sulfate (2.5 MG/3ML) 0.083% Inhalation Three times a day 3 ml 8h Aug, Active Wheelchair 1 use as needed for acitivity assistance Nov, Active Cymbalta 60 MG Orally Once a day 1 capsule 24h Active Glucocard Expression Test - test blood sugar Aug, Active Crestor 10 mg Orally Once a day 1 tablet 24h Feb, Active RESULTS No Results PROCEDURES Procedure Date Ordered Result Body Site COMPLETE CBC W/AUTO DIFF WBC August 13, 2017 ASSAY THYROID STIM HORMONE August 13, 2017 COMPREHEN METABOLIC PANEL August 13, 2017 LIPID PANEL August 13, 2017 INSTRUCTIONS MEDICATIONS ADMINISTERED No Known Medications [...]
--- OUTSIDE RECORDS SUMMARY | 2018-06-19 13:28 | XMS REPORT ---
Author Author ARISTEO ARAYA Organization [facility] Address [address] [place] [address] Care Team Providers Care Tumbler Plater Name Role Phone ARISTEO ARAYA Unavailable PROBLEMS Type Condition ICD9-CM Code WVA42-GY Code Onset Dates Condition Status SNOMED Code Problem Non morbid obesity due to excess calories E66.09 Active 025670924 Problem Unsteady gait R26.81 Active 12457119 Problem Eosinophilic colitis K52.82 Active 82598206 Problem Acute right-sided low back pain with right-sided sciatica M54.41 Active 172930095 Problem Paresthesias in left hand R20.2 Active 903453605 Problem Non morbid obesity E66.9 Active 670205043 Problem Other chronic gastritis without hemorrhage K29.50 Active 9914569 Problem GERD with esophagitis K21.0 Active 183701382 Problem Sacral pain M53.3 Active 39557631 Problem Fibromyalgia M79.7 Active 422265601 Problem Other chronic pain G89.29 Active 74020509 Problem Bronchitis J40 Active 69818695 Problem Migraine without aura and without status migrainosus, not intractable G43.009 Active 256623608 Problem Hypertension, benign I10 Active 79934196 ALLERGIES No Information ENCOUNTERS Encounter Location Date Diagnosis [place] [id number] [place] [id number] [place] [address] 15959- 9218 Dec, Bilious vomiting with nausea R11.14 and Tachycardia R00.0 [place] [address] [place] [id number] [place] [address] 82435- 1844 Nov, [place] [id number] [place] [address] 56861- 2254 Nov, BMI 40.0-44.9, adult Z68.41 ; Leg edema R60.0 and Hypertension, benign I10 [address] 31410- 0964 Nov, [place] [id number] [place] [address] 25338- 9724 October, Thoracic neuritis M54.14 [facility] [id number] [place] [address] 22912- 8493 October, Acute right hip pain M25.551 [place] [id number] [place] [address] 11186- 2313 October, [place] [id number] [place] [address] 18787- 4819 Sep, Hypertension, benign I10 and Acute right-sided low back pain with right-sided sciatica M54.41 [place] [id number] [place] [address] 14177- 5993 Sep, Fibromyalgia M79.7 and Hypertension, benign I10 [place] [address] [id number] [place] [address] 60296- 4701 Aug, [place] [id number] [place] [address] 22576- 5783 Aug, Fibromyalgia M79.7 ; Frequent headaches R51 and Non morbid obesity due to excess calories E66.09 [place] [id number] [place] [address] 73673- 6761 Jul, [place] [address] [id number] [place] [address] 15246- 9225 Jul, Fibromyalgia M79.7 [place] [id number] [place] [address] 61061- 6223 Jul, Viral gastroenteritis A08.4 and Paresthesias in left hand R20.2 [place] [id number] [place] [address] 32680- 8362 Jun, Non morbid obesity due to excess calories E66.09 [place] [id number] [place] [address] 50363- 4539 Jun, [place] [address] 37681- 7443 Jun, Fibromyalgia M79.7 [place] [address] 93833- 0541 May, Non morbid obesity due to excess calories E66.09 and Hypertension, benign I10 [address] 26979- 6909 May, GERD with esophagitis K21.[address] 36165- 3033 Apr, BMI 40.0-44.9, adult Z68.41 and Non morbid obesity E66.[address] 99268- 2557 Mar, Unsteady gait R26.[address] 54661- 8071 Mar, Unsteady gait R26.81 ; Sacral pain M53.3 and Fibromyalgia M79.[address] 52622- 7332 Mar, Non morbid obesity due to excess calories E66.09 [place] [address] 38986- 4577 Feb, Abdominal pain, generalized R10.84 [place] [address] 82186- 7816 18 Feb, 2017 Other chronic gastritis without hemorrhage K29.50 and H. pylori infection A04.[address] 03711- 7876 Feb, Back pain 724.5 ; Pain in left shoulder M25.512 ; Fibromyalgia M79.7 and Non morbid obesity due to excess calories E66.[address] 58359- 3074 Feb, BMI 40.0-44.9, adult Z68.41 [place] [id number] [place] [address] 62115- 6604 Jan, Dysuria R30.0 and Acute cystitis with hematuria N30.01 [place] [address] 28838- 5277 Jan, Dysuria R30.0 [place] [address] 93408- 7577 Dec, Fibromyalgia M79.7 [place] [address] 36912- 5904 Dec, Screening for diabetes mellitus Z13.1 and Fibromyalgia M79.7 [place] [address] 57302- 2923 Dec, Fibromyalgia M79.7 [place] [address] 13147- 4000 Dec, [place] [address] 38913- 1298 Dec, Fibromyalgia M79.7 [place] [address] 36069- 4156 Nov, Foreign body in foot, left, initial encounter S90.852A [place] [address] 77562- 0041 16 Nov, 2016 Viral gastroenteritis A08.4 [place] [address] 80957- 2279 09 Nov, 2016 Fall, initial encounter W19.XXXA ; Post-traumatic headache, unspecified, not intractable G44.309 ; Dizziness R42 ; Unsteady gait R26.81 ; Sacral pain M53.3 and Non morbid obesity due to excess calories E66.09 [place] [address] 75737- 4442 Nov, [place] [address] [place] [id number] [place] [address] 75941- 5751 Nov, [place] [address] [address] [id number] [place] [address] 25013- 5000 October, Non morbid obesity due to excess calories E66.09 and Hypertension, benign I10 [address] 67121- 3483 October, Fibromyalgia M79.7 [place] [address] [address] [id number] [place] [address] 05190- 8638 Sep, [place] [address] 52885- 5731 Sep, [place] [address] 26906- 3446 Sep, Eosinophilic colitis K52.82 [place] [address] 98196- 9365 Aug, Bronchitis J40 [place] [address] [id number] [place] [address] 47687- 7733 Aug, [place] [address] [id number] [place] [address] 25376- 5636 Aug, Pain in left shoulder M25.512 ; Bronchitis J40 ; Acute midline back pain, unspecified location M54.9 ; Migraine without aura and without status migrainosus, not intractable G43.009 ; Fibromyalgia M79.7 and Pain of upper abdomen R10.10 [place] [id number] [place] [address] 39306- 6179 Aug, [place] [address] [address] [id number] [place] [address] 45569- 2012 Aug, [place] [id number] [place] [address] 05436- 7052 Jul, Other viral agents as the cause of diseases classified elsewhere B97.89 and Acute upper respiratory infection, unspecified J06.9 [facility] [id number] [place] [address] 18374- 2587 Jun, [facility] [id number] [place] [address] 47592 -6384 Jun, [facility] [id number] [place] [address] 06334- 0511 May, Abscess L02.91 [facility] [address] 68901- 0566 May, Acute midline low back pain without sciatica M54.5 [facility] [id number] [place] [address] 37103 -4839 May, [facility] [id number] [place] [address] 90131- 6839 Apr, [facility] [address] 45671- 8022 Apr, Other chronic pain G89.29 ; Pain in right shoulder M25.511 and Pain in left shoulder M25.512 [facility] [id number] [place] [address] 52532- 9915 Apr, [facility] [id number] [place] [address] 18318- 4971 Apr, [facility] [id number] [place] [address] 65067- 2915 Apr, Fibromyalgia M79.7 ; Other chronic pain G89.29 and Pain in left shoulder M25.512 [facility] [id number] [place] [address] 44690- 1924 Apr, Bronchitis J40 [facility] [id number] [place] [address] 55560- 6356 Mar, [facility] [id number] [place] [address] [id number] Mar, [facility] [address] 74076- 8685 29 Feb, 2015 [facility] [address] [address]- 0500 26 Feb, 2015 [facility] [id number] [place] [address] 93005- 1368 23 Feb, 2015 [facility] [id number] [place] [address] 28069- 4045 22 Feb, 2015 [facility] [id number] [place] [address] 49948- 9424 20 Feb, 2015 [facility] [id number] [place] [address] 17564- 8386 19 Feb, 2015 [facility] [id number] [place] [address] 18007- 2391 19 Feb, 2015 Dysuria R30.0 [facility] [id number] [place] [address] 40976- 0982 19 Feb, 2015 Dysuria R30.0 [facility] [id number] [place] [address] 92197- 1658 16 Feb, 2015 [facility] [id number] [place] [address] 62683- 3874 15 Feb, 2016 Migraine, unspecified, not intractable, without status migrainosus G43.909 and Fibromyalgia M79.7 [facility] [address] [place] [address] 83566- 4276 06 Feb, 2016 Migraine without aura and without status migrainosus, not intractable G43.009 [facility] [address] [address]- 2226 Jan, [facility] [id number] [place] [address] 21964- 5790 Jan, [facility] [id number] [place] [address] 28823- 6552 Jan, [facility] [id number] [place] [address] 40379- 3306 Jan, [facility] [id number] [place] [address] 61213- 2949 Jan, Unsteady gait R26.81 ; Fibromyalgia M79.7 and Family history of rheumatoid arthritis Z82.61 [facility] [id number] [place] [address] 86275- 6574 Dec, [facility] [address] 10426- 2783 Dec, [facility] [address] [id number] [place] [address] 81895- 5770 Nov, Pain in left shoulder M25.512 [place] [address] [id number] [place] [address] 23615- 1173 October, Viral gastroenteritis A08.4 [facility] [id number] [place] [address] 84111 -9691 October, Pain of upper abdomen R10.10 [place] [id number] [place] [address] 35474- 5684 October, Acute midline back pain, unspecified location M54.9 [place] [id number] [place] [address] 12143- 2083 Aug, Elbow pain, right M25.521 [place] [address] [address] [id number] [place] [address] 50155- 5092 Aug, Elbow pain, right M25.521 [place] [id number] [place] [address] 97620- 8781 Aug, Pain of right upper extremity M79.601 [place] [id number] [place] [address] 75230- 1138 Jun, Lumbar neuritis M54.16 [place] [address] [address] [id number] [place] [address] 21266- 7020 May, [place] [id number] [place] [address] 86795- 7635 Apr, Non morbid obesity due to excess calories E66.09 [place] [address] 81027- 0497 Apr, Non morbid obesity due to excess calories E66.09 and Thoracic neuritis M54.14 [place] [address] 05865- 0713 Apr, Elbow pain, right M25.521 [place] [address] 90667- 9327 Mar, Right elbow pain M25.521 [place] [address] 38721- 4356 Mar, [place] [address] 09915- 2318 Feb, Urinary tract infection, site not specified 599.0 [place] [address] 82221- 7760 Feb, [place] [address] 84104- 2919 Jan, Spider bite 989.5 [place] [address] 54702- 2817 Jan, Spider bite 989.5 [place] [address] [id number] [place] [address] 53718- 5256 Jan, Spider bite 989.5 [place] [id number] [place] [address] 67732- 3263 Nov, Back pain 724.5 and Diabetes 250.00 [place] [address] 53231- 1787 Nov, Back pain 724.5 and Muscle spasm of back 724.8 [place] [address] 47007- 3995 Nov, Alternating constipation and diarrhea 787.99 [facility] [id number] [place] [address] 92101- 7143 October, Back pain 724.5 and Hip pain 719.45 [facility] [address] [facility] [id number] [address]- 0588 Sep, [facility] [address] [facility] [id number] [place] [address] 55323- 0203 Sep, [facility] [address] [facility] [id number] [place] [address] 92823- 7909 Aug, [facility] [id number] [place] [address] 96338- 8201 Aug, [facility] [id number] [place] [address] 48898- 8624 Aug, [facility] [id number] [place] [address] 50057- 4315 Aug, [facility] [id number] [place] [address] 00523- 9903 Aug, [facility] [id number] [place] [address] 66971- 9324 Aug, [facility] [address] [address]- 6891 Jul, [facility] [id number] [place] [address] 78492- 3211 Jul, [facility] [address] [id number] [address]- 2812 Jun, [facility] [id number] [place] [address] 09559- 4053 Jun, [facility] [address], [place] [address]- 3719 Jun, [facility] [id number] [place] [address] 64214- 2308 Jun, [facility] [place] [facility] [address] [id number] [place] [address]- 2501 Jun, [facility] [place] [facility] [address] [id number] [place] 4159 Jun, [facility] [place] [facility] [address] [id number] [place] [address]- 3545 Jun, [facility] [place] [facility] [address] [id number] [place] [address]- 2493 May, [facility] [place] [facility] [address] [id number] [place] [address]- 5424 May, [facility] [place] [facility] [address] [id number] [place] [address]- 7040 May, [facility] [place] [facility] [address] [id number] [place] [address]- 7439 May, [facility] [place] [facility] [address] [id number] [place] [address]- 9705 Apr, [facility] [place] [facility] [address] [id number] [place] [address]- 4061 Apr, [facility] [place] [facility] [address] [id number] [place] [address]- 1666 Mar, [facility] [place] [facility] [address] [id number] [place] [address]- 8535 Mar, [facility] [place] [facility] [address] [id number], [place] [address]- 6786 Mar, [facility] [place] [facility] [address] [id number] [place] [address]- 9010 Mar, [facility] [place] [facility] [address] [id number] [place] [address]- 9130 Mar, [facility] [place] [facility] [address] [id number] [place] [address]- 1986 Mar, [facility] [place] [facility] [address] [id number] [place] [address]- 0111 Mar, [facility] [place] [facility] [address] [id number] [place] [address]- 7509 Mar, [facility] [place] [facility] [address] [id number] [place] [address]- 0117 Mar, [facility] [place] [facility] [address] [id number] [place] [address]- 0341 Mar, [facility] [place] [facility] [address] [id number] [place] [address]- 5538 Feb, [facility] [place] [facility] [address] [id number] [place] [address]- 8335 Feb, [facility] [place] [facility] [address] [id number] [place] [address]- 9138 Jan, [facility] [place] [facility] [address] [id number] [place] [address]- 9959 Jan, [facility] [place] [facility] [address] [id number] [place] [address]- 4135 Jan, [facility] [place] [facility] [address] [id number] [place] [address]- 5007 Jan, [facility] [place] [facility] [address] [id number] [place] [address]- 0334 Jan, [facility] [place] [facility] [address] [id number] [place] [address]- 7691 Jan, [facility] [place] [facility] [address] [id number] [place] [address]- 4098 Jan, [facility] [place] [facility] [address] [id number] [place] [address]- 8274 Jan, [facility] [place] [facility] [address] [id number] [place] [address]- 3776 Jan, [facility] [place] [facility] [address] [id number] [place] [address]- 8543 Jan, [facility] [place] [facility] [address] [id number] [place] [address]- 4372 Dec, [facility] [place] [facility] [address] [id number] [place] [address]- 1664 Dec, [facility] [place] [facility] [address] [id number] [place] 9860 Dec, [facility] [place] [facility] [address] [id number] [place] [address]- 1740 Dec, [facility] [place] [facility] [address] [id number] [place] [address]- 6904 Nov, [facility] [place] [facility] [address] [id number] [place] [address]- 9962 Nov, [facility] [place] [facility] [address] [id number] [place] [address]- 5845 Nov, [facility] [place] [facility] [address] [id number] [place] [address]- 8664 Nov, [facility] [place] [facility] [address] [id number] [place] [address]- 2058 October, [facility] [place] [facility] [address] [id number] [place] [address]- 1071 October, [facility] [place] [facility] [address] [id number] [place] [address]- 5677 Sep, [facility] [place] [facility] [address] [id number] [place] [address]- 3897 Sep, [facility] [place] [facility] [address] [id number] [place] [address]- 2054 Sep, [facility] [place] [facility] [address] [id number] [place] [address]- 9404 Sep, [facility] [place] [facility] [address] [id number] [place] 7840 Sep, [facility] [place] [facility] [address] [id number] [place] [address]- 2171 Sep, [facility] [place] [facility] [address] [id number] [place] [address]- 8264 Sep, [facility] [place] [facility] [address] [id number] [place] [address]- 5445 Sep, [facility] [place] [facility] [address] [id number] [place] [address]- 9789 Sep, [facility] [place] [facility] [address] [id number] [place] [address]- 0522 Sep, [facility] [place] [facility] [address] [id number] [place] [address]- 0180 Jul, [facility] [place] [facility] [address] [id number] [place] [address]- 0596 Jul, [facility] [place] [facility] [address] [id number] [place] [address]- 5918 Jul, [facility] [place] [facility] [address] [id number] [place] [address]- 5004 Jul, [facility] [place] [facility] [address] [id number] [place] [address]- 8658 Jun, [facility] [place] [facility] [address] [id number] [place] [address]- 8309 Jun, [facility] [place] [facility] [address] [id number] [place] [address]- 1142 Jun, [facility] [place] [facility] [address] [id number] [place] [address]- 4965 Jun, [facility] [place] [facility] [address] [id number] [place] [address] Jun, [facility] [place] [facility] [address] [id number] [place] [address] Jun, [facility] [place] [facility] [address] [id number] [place] [address] Apr, [facility] [place] [facility] [address] [id number] [place] [address] Apr, [facility] [place] [facility] [address] [id number] [place] [address] Apr, [facility] [place] [facility] [address] [id number] [place] [address] Apr, [facility] [place] [facility] [address] [id number] [place] [address] Apr, [facility] [place] [facility] [address] [id number] [place] [address] Apr, [facility] [place] [facility] [address] [id number] [place] [address] Apr, [facility] [place] [facility] [address] [id number] [place] [address] Apr, [facility] [place] [facility] [address] [id number] [place] [address] Mar, [facility] [place] [facility] [address] [id number] [place] [address] Mar, [facility] [place] [facility] [address] [id number] [place] [address] Feb, [facility] [place] [facility] [address] [id number] [place] [address] Feb, [facility] [place] [facility] [address] [id number] [place] [address] Dec, [facility] [place] [facility] [address] [id number] [place] [address] Dec, [facility] [place] [facility] [address] [id number] [place] [address] Dec, [facility] [place] [facility] [address] [id number] [place] [address] Dec, [facility] [place] [facility] [address] [id number] [place] [address] Dec, [facility] [place] [facility] [address] [id number] [place] [address] Dec, [facility] [place] [facility] [address] [id number] [place] [address] Dec, [facility] [place] [facility] [address] [id number] [place] [address] Nov, [facility] [place] [facility] [address] [id number] [place] [address] Nov, [facility] [place] [facility] [address] [id number] [place] [address] Nov, [facility] [place] [facility] [address] [id number] [place] [address] Nov, [facility] [place] [facility] [address] [id number] [place] [address] October, [facility] [place] [facility] [address] [id number] [place] [address] October, [facility] [place] [facility] [address] [id number] [place] [address] October, [facility] [place] [facility] [address] [id number] [place] [address] October, [facility] [place] [facility] [address] [id number] [place] [address] Sep, [facility] [place] [facility] [address] [id number] [place] [address] Aug, [facility] [place] [facility] [address] [id number] [place] [address] Aug, [facility] [place] [facility] [address] [id number] [place] [address] Aug, [facility] [place] [facility] [address] [id number] [place] [address] Aug, [facility] [place] [facility] [address] [id number] [place] [address] Aug, [facility] [address] [id number] [place] [address] Jul, [facility] [place] [facility] [address] [id number] [place] [address] Jul, [facility] [address] [id number] [place] [address] Jul, [facility] [place] [facility] [address] [id number] [place] [address] Jul, [facility] [place] [facility] [address] [id number] [place] [address] Jul, [facility] [address] [id number] [place] [address] Jul, [facility] [address] [id number] [place] [address] Jul, [facility] [address] [id number] [place] [address] 15 Jul, 2012 [facility] [address] [id number] [place] [address] 14 Jul, 2012 [facility] [place] [facility] [address] [facility] [id number] [place] [address] Jul, [facility] [address] [id number] [address] Jun, [facility] [place] [facility] [address] [id number] [place] [address] Jun, [facility] [place] [facility] [address] [id number] [place] [address] Jun, [facility] [place] [facility] [address] [facility] [id number] [place] [address] May, [facility] [place] [facility] [address] [id number], [place] [address] May, [facility] [place] [facility] [address] [id number] [place] [address] Apr, [facility] [place] [facility] [address] [id number][place] [address] Apr, [facility] [place] [facility] [address] [facility] [id number] [place] [address] Apr, [facility] [place] [facility] [address] [id number], [place] [address] Apr, [facility] [place] [facility] [address] [id number] [place] [address] 47[address] Apr, [facility] [place] [facility] [address] [id number] [place] [address] Apr, [facility] [place] [facility] [address] [facility] [id number], [place] [address] Apr, [facility] [place] [facility] [address] [id number] [place] [address] Apr, [facility] [place] [facility] [address] [id number], [place] [address] Mar, [facility] [place] [facility] [address] [id number], [place] [address] Mar, [facility] [place] [facility] [address] [id number], [place] [address] 31 Mar, 2012 [facility] [place] [facility] [address] [facility] [id number][place] [address] 31 Mar, 2012 [facility] [place] [facility] [address] [id number], [place] [address] 28[address] 15 Mar, 2012 [facility] [place] [facility] [address] [facility] [id number][place] [address] 15 Mar, 2012 [facility] [place] [facility] [address] [facility] [id number], [place] [address]64 11 Mar, 2012 [facility] [place] [facility] [address] [id number] [place] [address] 25[address] Mar, [facility] [place] [facility] [address] [id number] [place] [address] Mar, [facility] [place] [facility] [address] [id number] [place] [address] Feb, [facility] [place] [facility] [address] [id number] [place] [address] Jan, [facility] [place] [facility] [address] [id number] [place] [address] Jan, [facility] [place] [facility] [address] [id number] [place] [address] Jan, [facility] [place] [facility] [address] [id number] [place] [address] Dec, [facility] [place] [facility] [address] [id number] [place] [address]186 Dec, [facility] [address] [id number] [place] [address] Dec, [facility] [place] [facility] [address] [id number] [place] [address] Nov, [facility] [place] [facility] [address] [id number] [place] [address] October, [facility] [place] [facility] [address] [id number] [place] [address] October, [facility] [place] [facility] [address] [id number] [place] [address] October, [facility] [place] [facility] [address] [id number] [place] [address] October, [facility] [place] [facility] [address] [id number] [place] [address] October, [facility] [place] [facility] [address] [id number] [place] [address] Sep, [facility] [place] [facility] [address] [id number] [place] [address] 3424 23 Sep, 2011 [facility] [place] [facility] [address] [id number] [place] [address] 4256 13 Sep, 2011 [facility] [place] [facility] [address] [id number] [place] [address] 6[address] 12 Sep, 2011 [facility] [place] [facility] [address] [id number] [place] [address] 4159 12 Sep, 2011 [facility] [place] [facility] [address] [id number] [place] [address] Sep, [facility] [place] [facility] [address] [id number] [place] [address] 0830 11 Sep, 2011 [facility] [place] [facility] [address] [id number] [place] [address] 4749 28 Aug, 2011 [facility] [place] [facility] [address] [id number] [place] [address] 23 Aug, 2011 [facility] [place] [facility] [address] [id number] [place] [address] 4126 21 Aug, 2011 [facility] [place] [facility] [address] [id number] [place] [address] 8005 21 Aug, 2011 [facility] [place] [facility] [address] [id number] [place] [address] 7988 20 Aug, 2011 [facility] [place] [facility] [address] [id number] [place] [address] 3[address] 19 Aug, 2011 [facility] [place] [facility] [address] [id number] [place] [address] 9149 16 Aug, 2011 [facility] [place] [facility] [address] [id number] [place] [address] 8079 15 Aug, 2011 [facility] [place] [facility] [address] [id number] [place] [address] 7197 15 Aug, 2011 [facility] [place] [facility] [address] [id number] [place] [address] 7258 14 Aug, 2011 [facility] [address] [id number] [place] [address] 9634 12 Aug, 2011 [facility] [place] [facility] [address] [id number] [place] [address] 9356 08 Aug, 2011 [facility] [place] [facility] [address] [id number] [place] [address]- 2776 15 Jul, 2011 [facility] [place] [facility] [address] [id number] [place] [address] 5768 15 Jul, 2011 [facility] [place] [facility] [address] [id number] [place] [address] 2172 14 Jul, 2011 [facility] [place] [facility] [address] [id number] [place] [address] 2546 06 Jul, 2011 [facility] [place] [facility] [address] [facility] [id number] [place] [address]- 3716 02 Jul, 2011 [facility] [address] [id number] [place] [address]- 7049 Jun, [facility] [place] [facility] [address] [id number] [place] [address]269 Jun, [facility] [address] [facility] [id number] [place] [address] 3510 Jun, [facility] [place] [facility] [address] [id number] [place] [address] 2542 May, [facility] [place] [facility] [address] [id number] [place] [address] 2548 May, [facility] [place] [facility] [address] [id number] [place] [address]- 4856 May, [facility] [place] [facility] [address] [id number] [place] [address]- 3466 May, [facility] [place] [facility] [address] [facility] [id number] [place] [address]- 4011 14 May, 2011 [facility] [place] [facility] [address] [id number] [place] [address]- 9035 16 Apr, 2011 [facility] [place] [facility] [address] [id number] [place] [address]- 8472 16 Apr, 2011 [facility] [place] [facility] [address] [id number] [place] [address]- 1890 15 Apr, 2011 [facility] [place] [facility] [address] [id number] [place] [address]- 2372 14 Apr, 2011 [facility] [place] [facility] [address] [id number] [place] [address]- 4735 25 Mar, 2011 [facility] [place] [facility] [address] [id number] [place] [address]- 1691 24 Mar, 2011 [facility] [place] [facility] [address] [id number] [place] [address]- 2269 19 Mar, 2011 [facility] [place] [facility] [address] [id number], [place] [address]- 9918 19 Mar, 2011 [facility] [place] [facility] [address] [id number] [place] [address]- 6345 17 Mar, 2011 [facility] [place] [facility] [address] [id number], [place] [address]- 5318 17 Mar, 2011 [facility] [place] [facility] [address] [id number], [place] [address]- 3756 16 Feb, 2011 [facility] [place] [facility] [address] [id number], [place] [address]- 3636 10 Nov, 2010 [facility] [place] [facility] [address] [id number], [place] [address]- 9020 17 Aug, 2010 [facility] [place] [facility] [address] [id number], [place] [address]- 9954 11 Apr, 2010 [facility] [place] [facility] [address] [id number], [place] [address]- 3202 16 Mar, 2010 [facility] [place] [facility] [address] [id number], [place] [address]- 9797 Apr, [facility] [address] [facility] [id number] [place] [address]- 8948 Apr, [facility] [address] [facility] [id number][place] [address]- 7198 Sep, [facility] [address] [facility] [id number] [place] Mar, IMMUNIZATIONS No Known Immunizations SOCIAL HISTORY Never Assessed REASON FOR VISIT Requests return call PLAN OF CARE VITAL SIGNS MEDICATIONS No Known Medications RESULTS No Results PROCEDURES No Known [...]
--- OUTSIDE RECORDS SUMMARY | 2018-06-19 13:29 | XMS REPORT ---
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 Name Role Phone ARISTEO ARAYA Unavailable PROBLEMS Type Condition ICD9-CM Code WDT30-PW Code Onset Dates Condition Status SNOMED Code Problem Non morbid obesity due to excess calories E66.09 Active 187064173 Problem Unsteady gait R26.81 Active 69034472 Problem Eosinophilic colitis K52.82 Active 59903035 Problem Acute right-sided low back pain with right-sided sciatica M54.41 Active 827204283 Problem Paresthesias in left hand R20.2 Active 965865169 Problem Non morbid obesity E66.9 Active 105102316 Problem Other chronic gastritis without hemorrhage K29.50 Active 7790387 Problem GERD with esophagitis K21.0 Active 345800770 Problem Sacral pain M53.3 Active 22267727 Problem Fibromyalgia M79.7 Active 192086235 Problem Other chronic pain G89.29 Active 00185513 Problem Bronchitis J40 Active 14602235 Problem Migraine without aura and without status migrainosus, not intractable G43.009 Active 526523088 Problem Hypertension, benign I10 Active 00311843 ALLERGIES No Information ENCOUNTERS Encounter Location Date Diagnosis [place] [id number] [place] [id number] [place] [address] 12996- 2915 Dec, Bilious vomiting with nausea R11.14 and Tachycardia R00.0 [place] [address] [place] [id number] [place] [address] 43985- 5732 Nov, [address] 59268- 7579 Nov, BMI 40.0-44.9, adult Z68.41 ; Leg edema R60.0 and Hypertension, benign I10 [address] 71736- 4571 Nov, [place] [address] [place] [id number] [place] [address] 49320- 5020 October, Thoracic neuritis M54.14 [facility] [id number] [place] [address] 67517- 8323 October, Acute right hip pain M25.551 [place] [address] [place] [id number] [place] [address] 77059- 3692 October, [place] [address] [address] [id number] [place] [address] 31914- 4602 Sep, Hypertension, benign I10 and Acute right-sided low back pain with right-sided sciatica M54.41 [place] [address] [place] [id number] [place] [address] 29457- 0839 Sep, Fibromyalgia M79.7 and Hypertension, benign I10 [place] [address] [place] [id number] [place] [address] 50231- 5750 Aug, [place] [address] [address] [id number] [place] [address] 54750- 7182 Aug, Fibromyalgia M79.7 ; Frequent headaches R51 and Non morbid obesity due to excess calories E66.09 [place] [address] [place] [id number] [place] [address] 86900- 1059 Jul, [place] [address] [place] [id number] [place] [address] 14742- 3382 Jul, Fibromyalgia M79.7 [place] [address] [address] [id number] [place] [address] 64122- 7476 Jul, Viral gastroenteritis A08.4 and Paresthesias in left hand R20.2 [place] [address] [place] [id number] [place] [address] 77505- 0319 Jun, Non morbid obesity due to excess calories E66.09 [place] [address] [place] [id number] [place] [address] 94001- 2817 Jun, [place] [address] 41371- 0194 Jun, Fibromyalgia M79.7 [place] [address] 00749- 9518 May, Non morbid obesity due to excess calories E66.09 and Hypertension, benign I10 [address] 08199- 7143 May, GERD with esophagitis K21.[address] 16341- 3768 Apr, BMI 40.0-44.9, adult Z68.41 and Non morbid obesity E66.[address] 18798- 3614 Mar, Unsteady gait R26.[address] 52972- 4042 Mar, Unsteady gait R26.81 ; Sacral pain M53.3 and Fibromyalgia M79.[address] 64152- 9758 Mar, Non morbid obesity due to excess calories E66.09 [place] [address] 96166- 7988 Feb, Abdominal pain, generalized R10.84 [place] [address] 20656- 5175 18 Feb, 2017 Other chronic gastritis without hemorrhage K29.50 and H. pylori infection A04.[address] 67557- 3812 Feb, Back pain 724.5 ; Pain in left shoulder M25.512 ; Fibromyalgia M79.7 and Non morbid obesity due to excess calories E66.[address] 16316- 2369 Feb, BMI 40.0-44.9, adult Z68.41 [place] [address] [place] [id number] [place] [address] 75562- 4859 Jan, Dysuria R30.0 and Acute cystitis with hematuria N30.01 [place] [address] 22820- 7543 Jan, Dysuria R30.0 [place] [address] 56322- 3896 Dec, Fibromyalgia M79.7 [place] [address] 91163- 4407 Dec, Screening for diabetes mellitus Z13.1 and Fibromyalgia M79.7 [place] [address] 63767- 0061 Dec, Fibromyalgia M79.7 [place] [address] 82907- 5531 Dec, [place] [address] 22982- 5391 Dec, Fibromyalgia M79.7 [place] [address] 55921- 6081 Nov, Foreign body in foot, left, initial encounter S90.852A [place] [address] 32385- 6315 16 Nov, 2016 Viral gastroenteritis A08.4 [place] [address] 92069- 7675 09 Nov, 2016 Fall, initial encounter W19.XXXA ; Post-traumatic headache, unspecified, not intractable G44.309 ; Dizziness R42 ; Unsteady gait R26.81 ; Sacral pain M53.3 and Non morbid obesity due to excess calories E66.09 [place] [address] 03318- 9471 Nov, [place] [address] [place] [id number] [place] [address] 94517- 2693 Nov, [place] [address] [place] [id number] [place] [address] 73044- 3323 October, Non morbid obesity due to excess calories E66.09 and Hypertension, benign I10 [address] 05055- 1005 October, Fibromyalgia M79.7 [place] [address] [place] [id number] [place] [address] 48592- 1619 Sep, [place] [address] 37036- 0057 Sep, [place] [address] 82625- 0624 Sep, Eosinophilic colitis K52.82 [place] [address] 05629- 5411 Aug, Bronchitis J40 [place] [address] [place] [id number] [place] [address] 83148- 7145 Aug, [place] [address] [place] [id number] [place] [address] 02390- 5803 Aug, Pain in left shoulder M25.512 ; Bronchitis J40 ; Acute midline back pain, unspecified location M54.9 ; Migraine without aura and without status migrainosus, not intractable G43.009 ; Fibromyalgia M79.7 and Pain of upper abdomen R10.10 [place] [id number] [place] [address] 50856- 2317 Aug, [place] [address] [place] [id number] [place] [address] 67024- 2572 Aug, [place] [address] [place] [id number] [place] [address] 30083- 3107 Jul, Other viral agents as the cause of diseases classified elsewhere B97.89 and Acute upper respiratory infection, unspecified J06.9 [facility] [id number] [place] [address] 83319- 3970 Jun, [facility] [id number] [place] [address] 03766 -3080 Jun, [facility] [id number] [place] [address] 64174- 6774 May, Abscess L02.91 [facility] [address] 30464- 7541 May, Acute midline low back pain without sciatica M54.5 [facility] [id number] [place] [address] 31122 -3455 May, [facility] [id number] [place] [address] 06678- 0901 Apr, [facility] [address] 31628- 5068 Apr, Other chronic pain G89.29 ; Pain in right shoulder M25.511 and Pain in left shoulder M25.512 [facility] [id number] [place] [address] 58654- 4545 Apr, [facility] [id number] [place] [address] 01414- 9628 Apr, [facility] [id number] [place] [address] 00923- 0136 Apr, Fibromyalgia M79.7 ; Other chronic pain G89.29 and Pain in left shoulder M25.512 [facility] [id number] [place] [address] 50029- 9171 Apr, Bronchitis J40 [facility] [id number] [place] [address] 34971- 3129 Mar, [facility] [id number] [place] [address] [id number] Mar, [facility] [address] 88847- 1221 29 Feb, 2015 [facility] [address] [address]- 8165 26 Feb, 2015 [facility] [id number] [place] [address] 32414- 9616 23 Feb, 2015 [facility] [id number] [place] [address] 78149- 0849 22 Feb, 2015 [facility] [id number] [place] [address] 14832- 8233 20 Feb, 2015 [facility] [id number] [place] [address] 14904- 1282 19 Feb, 2015 [facility] [id number] [place] [address] 11205- 9301 19 Feb, 2015 Dysuria R30.0 [facility] [id number] [place] [address] 01791- 0028 19 Feb, 2015 Dysuria R30.0 [facility] [id number] [place] [address] 21442- 0097 16 Feb, 2015 [facility] [id number] [place] [address] 49025- 9455 15 Feb, 2016 Migraine, unspecified, not intractable, without status migrainosus G43.909 and Fibromyalgia M79.7 [facility] [address] [place] [address] 84741- 6365 06 Feb, 2016 Migraine without aura and without status migrainosus, not intractable G43.009 [facility] [address] [address]- 6548 Jan, [facility] [id number] [place] [address] 37487- 5371 Jan, [facility] [id number] [place] [address] 01304- 4865 Jan, [facility] [id number] [place] [address] 13052- 4597 Jan, [facility] [id number] [place] [address] 85864- 6627 Jan, Unsteady gait R26.81 ; Fibromyalgia M79.7 and Family history of rheumatoid arthritis Z82.61 [facility] [address] [place] [address] 58365- 3268 Dec, [facility] [address] 21816- 2399 Dec, [facility] [id number] [place] [address] 10951- 4561 Nov, Pain in left shoulder M25.512 [place] [id number] [place] [address] 85005- 5065 October, Viral gastroenteritis A08.4 [facility] [id number] [place] [address] 66817 -1905 October, Pain of upper abdomen R10.10 [place] [address] [id number] [place] [address] 35759- 8829 October, Acute midline back pain, unspecified location M54.9 [place] [id number] [place] [address] 35495- 1791 Aug, Elbow pain, right M25.521 [place] [address] [id number] [place] [address] 51938- 0831 Aug, Elbow pain, right M25.521 [place] [address] [id number] [place] [address] 03353- 1047 Aug, Pain of right upper extremity M79.601 [place] [address] [id number] [place] [address] 77964- 9157 Jun, Lumbar neuritis M54.16 [place] [address] [id number] [place] [address] 33041- 7428 May, [place] [address] [id number] [place] [address] 99989- 4638 Apr, Non morbid obesity due to excess calories E66.09 [place] [address] 48551- 2395 Apr, Non morbid obesity due to excess calories E66.09 and Thoracic neuritis M54.14 [place] [address] 94393- 2458 Apr, Elbow pain, right M25.521 [place] [address] 35272- 9791 Mar, Right elbow pain M25.521 [place] [address] 84137- 9646 Mar, [place] [address] 61163- 2397 Feb, Urinary tract infection, site not specified 599.0 [place] [address] 67240- 3033 Feb, [place] [address] 98122- 9350 Jan, Spider bite 989.5 [place] [address] 87521- 7455 Jan, Spider bite 989.5 [place] [id number] [place] [address] 29434- 5506 Jan, Spider bite 989.5 [place] [id number] [place] [address] 54855- 9930 Nov, Back pain 724.5 and Diabetes 250.00 [place] [address] 38082- 0502 Nov, Back pain 724.5 and Muscle spasm of back 724.8 [place] [address] 50405- 5611 Nov, Alternating constipation and diarrhea 787.99 [facility] [id number] [place] [address] 08913- 6769 October, Back pain 724.5 and Hip pain 719.45 [facility] [address] [facility] [id number] [address]- 0614 Sep, [facility] [address] [facility] [id number] [place] [address] 51593- 2030 Sep, [facility] [address] [facility] [id number] [place] [address] 88911- 6634 Aug, [facility] [id number] [place] [address] 06748- 3705 Aug, [facility] [id number] [place] [address] 94662- 9681 Aug, [facility] [id number] [place] [address] 38660- 5868 Aug, [facility] [id number] [place] [address] 09392- 7603 Aug, [facility] [id number] [place] [address] 11655- 3961 Aug, [facility] [address] [address]- 3454 Jul, [facility] [address] [place] [address] 85713- 1179 Jul, [facility] [id number] [address]- 7648 Jun, [facility] [id number] [place] [address] 75102- 0283 Jun, [facility] [address] [address]- 7335 Jun, [facility] [address] [place] [address] 93969- 6661 Jun, [facility] [place] [facility] [address] [id number] [place] [address]- 3725 Jun, [facility] [place] [facility] [address] [id number] [place]- 0590 Jun, [facility] [place] [facility] [address] [id number] [place] [address]- 0706 Jun, [facility] [place] [facility] [address] [id number] [place] [address]- 5664 May, [facility] [place] [facility] [address] [id number] [place] [address]- 9368 May, [facility] [place] [facility] [address] [id number] [place] [address]- 6684 May, [facility] [place] [facility] [address] [id number] [place] [address]- 2646 May, [facility] [place] [facility] [address] [id number] [place] [address]- 4076 Apr, [facility] [place] [facility] [address] [id number] [place] [address]- 5312 Apr, [facility] [place] [facility] [address] [id number] [place] [address]- 4388 Mar, [facility] [place] [facility] [address] [id number] [place] [address]- 0722 Mar, [facility] [place] [facility] [address] [id number] [address]- 5966 Mar, [facility] [place] [facility] [address] [id number] [place] [address]- 6846 Mar, [facility] [place] [facility] [address] [id number] [place] [address]- 0348 Mar, [facility] [place] [facility] [address] [id number] [place] [address]- 2793 Mar, [facility] [place] [facility] [address] [id number] [place] [address]- 0524 Mar, [facility] [place] [facility] [address] [id number] [place] [address]- 7465 Mar, [facility] [place] [facility] [address] [id number] [place] [address]- 3666 Mar, [facility] [place] [facility] [address] [id number] [place] [address]- 1389 Mar, [facility] [place] [facility] [address] [id number] [place] [address]- 8424 Feb, [facility] [place] [facility] [address] [id number] [place] [address]- 5707 Feb, [facility] [place] [facility] [address] [id number] [place] [address]- 7168 Jan, [facility] [place] [facility] [address] [id number] [place] [address]- 0028 Jan, [facility] [place] [facility] [address] [id number] [place] [address]- 1709 Jan, [facility] [place] [facility] [address] [id number] [place] [address]- 2018 Jan, [facility] [place] [facility] [address] [id number] [place] [address]- 3451 Jan, [facility] [place] [facility] [address] [id number] [place] [address]- 7976 Jan, [facility] [place] [facility] [address] [id number] [place] [address]- 0855 Jan, [facility] [place] [facility] [address] [id number] [place] [address]- 4682 Jan, [facility] [place] [facility] [address] [id number] [place] [address]- 7863 Jan, [facility] [place] [facility] [address] [id number] [place] [address]- 4186 Jan, [facility] [place] [facility] [address] [id number] [place] [address]- 1992 Dec, [facility] [place] [facility] [address] [id number] [place] [address]- 1393 Dec, [facility] [place] [facility] [address] [id number] [place] 3914 Dec, [facility] [place] [facility] [address] [id number] [place] [address]- 0257 Dec, [facility] [place] [facility] [address] [id number] [place] [address]- 0658 Nov, [facility] [place] [facility] [address] [id number] [place] [address]- 1604 Nov, [facility] [place] [facility] [address] [id number] [place] [address]- 0204 Nov, [facility] [place] [facility] [address] [id number] [place] [address]- 6313 Nov, [facility] [place] [facility] [address] [id number] [place] [address]- 7127 October, [facility] [place] [facility] [address] [id number] [place] [address]- 6236 October, [facility] [place] [facility] [address] [id number] [place] [address]- 2707 Sep, [facility] [place] [facility] [address] [id number] [place] [address]- 9083 Sep, [facility] [place] [facility] [address] [id number] [place] [address]- 7390 Sep, [facility] [place] [facility] [address] [id number] [place] [address]- 4825 Sep, [facility] [place] [facility] [address] [id number] [place] 1078 Sep, [facility] [place] [facility] [address] [id number] [place] [address]- 8338 Sep, [facility] [place] [facility] [address] [id number] [place] [address]- 3588 Sep, [facility] [place] [facility] [address] [id number] [place] [address]- 8037 Sep, [facility] [place] [facility] [address] [id number] [place] [address]- 3738 Sep, [facility] [place] [facility] [address] [id number] [place] [address]- 5779 Sep, [facility] [place] [facility] [address] [id number] [place] [address]- 5432 Jul, [facility] [place] [facility] [address] [id number] [place] [address]- 6848 Jul, [facility] [place] [facility] [address] [id number] [place] [address]- 5952 Jul, [facility] [place] [facility] [address] [id number] [place] [address]- 5594 Jul, [facility] [place] [facility] [address] [id number] [place] [address]- 6333 Jun, [facility] [place] [facility] [address] [id number] [place] [address]- 3911 Jun, [facility] [place] [facility] [address] [id number] [place] [address]- 7863 Jun, [facility] [place] [facility] [address] [id number] [place] [address]- 3381 Jun, [facility] [place] [facility] [address] [id number] [place] [address] Jun, [facility] [place] [facility] [address] [id number] [place] [address] Jun, [facility] [place] [facility] [address] [id number] [place] [address] Apr, [facility] [place] [facility] [address] [id number] [place] [address] Apr, [facility] [place] [facility] [address] [id number] [place] [address] Apr, [facility] [place] [facility] [address] [id number] [place] [address] Apr, [facility] [place] [facility] [address] [id number] [place] [address] Apr, [facility] [place] [facility] [address] [id number] [place] [address] Apr, [facility] [place] [facility] [address] [id number] [place] [address] Apr, [facility] [place] [facility] [address] [id number] [place] [address] Apr, [facility] [place] [facility] [address] [id number] [place] [address] Mar, [facility] [place] [facility] [address] [id number] [place] [address] Mar, [facility] [place] [facility] [address] [id number] [place] [address] Feb, [facility] [place] [facility] [address] [id number] [place] [address] Feb, [facility] [place] [facility] [address] [id number] [place] [address] Dec, [facility] [place] [facility] [address] [id number] [place] [address] Dec, [facility] [place] [facility] [address] [id number] [place] [address] Dec, [facility] [place] [facility] [address] [id number] [place] [address] Dec, [facility] [place] [facility] [address] [id number] [place] [address] Dec, [facility] [place] [facility] [address] [id number] [place] [address] Dec, [facility] [place] [facility] [address] [id number] [place] [address] Dec, [facility] [place] [facility] [address] [id number] [place] [address] Nov, [facility] [place] [facility] [address] [id number] [place] [address] Nov, [facility] [place] [facility] [address] [id number] [place] [address] Nov, [facility] [place] [facility] [address] [id number] [place] [address] Nov, [facility] [place] [facility] [address] [id number] [place] [address] October, [facility] [place] [facility] [address] [id number] [place] [address] October, [facility] [place] [facility] [address] [id number] [place] [address] October, [facility] [place] [facility] [address] [id number] [place] [address] October, [facility] [place] [facility] [address] [id number] [place] [address] Sep, [facility] [place] [facility] [address] [id number] [place] [address] Aug, [facility] [place] [facility] [address] [id number] [place] [address] Aug, [facility] [place] [facility] [address] [id number] [place] [address] Aug, [facility] [place] [facility] [address] [id number] [place] [address] Aug, [facility] [place] [facility] [address] [id number] [place] [address] Aug, [facility] [address] [id number] [place] [address] Jul, [facility] [place] [facility] [address] [id number] [place] [address] Jul, [facility] [address] [id number] [place] [address] Jul, [facility] [place] [facility] [address] [id number] [place] [address] Jul, [facility] [place] [facility] [address] [id number] [place] [address] Jul, [facility] [address] [id number] [place] [address] Jul, [facility] [address] [id number] [place] [address] Jul, [facility] [address] [id number] [place] [address] 15 Jul, 2012 [facility] [address] [id number] [address] 14 Jul, 2012 [facility] [place] [facility] [address] [facility] [id number] [place] [address] Jul, [facility] [address] [id number] [address] Jun, [facility] [place] [facility] [address] [id number] [place] [address] Jun, [facility] [facility] [address] [id number] [place] [address] Jun, [facility] [address] [facility] [id number] [place] [address] May, [facility] [place] [facility] [address] [id number] [address] May, [facility] [place] [facility] [address] [id number] [place] [address] Apr, [facility] [place] [facility] [address] [id number] [address] Apr, [facility] [place] [facility] [address] [facility] [id number] [place] [address] Apr, [facility] [place] [facility] [address] [id number] [address] Apr, [facility] [place] [facility] [address] [id number] [place] [address] Apr, [facility] [place] [facility] [address] [id number] [place] [address] Apr, [facility] [place] [facility] [address] [facility] [id number] [address] Apr, [facility] [place] [facility] [address] [id number] [place] [address] Apr, [facility] [place] [facility] [address] [id number] [address] Mar, [facility] [place] [facility] [address] [id number] [address] Mar, [facility] [place] [facility] [address] [id number] [address] 31 Mar, 2012 [facility] [address] [facility] [id number] [address] 31 Mar, 2012 [facility] [address] [id number] [address] 15 Mar, 2012 [facility] [address] [facility] [id number][place] [address] 15 Mar, 2012 [facility] [address] [facility] [id number] [address] 11 Mar, 2012 [facility] [place] [facility] [address] [id number] [place] [address] Mar, [facility] [address] [id number] [place] [address] Mar, [facility] [place] [facility] [address] [id number] [place] [address] Feb, [facility] [facility] [address] [id number] [place] [address] Jan, [facility] [facility] [address] [id number] [place] [address] Jan, [facility] [address] [id number] [place] [address] Jan, [facility] [address] [id number] [place] [address] Dec, [facility] [address] [id number] [place] [address] Dec, [facility] [address] [id number] [place] [address] Dec, [facility] [address] [id number] [place] [address] Nov, [facility] [address] [id number] [place] [address] October, [facility] [address] [id number] [place] [address] October, [facility] [address] [id number] [place] [address] October, [facility] [address] [id number] [place] [address] October, [facility] [address] [id number] [place] [address]- [address] October, [facility] [address] [id number] [place] [address] Sep, [facility] [facility] [address] [id number] [place] [address]- [address] 23 Sep, 2011 [facility] [facility] [address] [id number] [place] [address]- [address] 13 Sep, 2011 [facility] [facility] [address] [id number] [place] [address]- 117[address] 12 Sep, 2011 [facility] [facility] [address] [id number] [place] [address] 12 Sep, 2011 [facility] [facility] [address] [id number] [place] [address] Sep, [facility] [address] [id number] [place] [address]- [address] 11 Sep, 2011 [facility] [facility] [address] [id number] [place] [address] 28 Aug, 2011 [facility] [address] [id number] [place] [address]- [address]12 23 Aug, 2011 [facility] [address] [id number] [place] [address]- 8743 21 Aug, 2011 [facility] [address] [id number] [place] [address]- 7675 21 Aug, 2011 [facility] [address] [id number] [place] [address] 20 Aug, 2011 [facility] [address] [id number] [place] [address]- [address]252 19 Aug, 2011 [facility] [address] [id number] [place] [address]- 4950 16 Aug, 2011 [facility] [address] [id number] [place] [address]- 4079 15 Aug, 2011 [facility] [address] [id number] [place] [address]- 3544 15 Aug, 2011 [facility] [address] [id number] [place] [address]- 8960 14 Aug, 2011 [facility] [address] [id number] [place] [address]- 1647 12 Aug, 2011 [facility] [address] [id number] [place] [address]- 0346 08 Aug, 2011 [facility] [address] [id number] [place] [address]- 8696 15 Jul, 2011 [facility] [address] [id number] [place] [address]- 9466 15 Jul, 2011 [facility] [address] [id number] [place] [address]- 1754 14 Jul, 2011 [facility] [address] [id number] [place] [address] 2546 06 Jul, 2011 [facility] [address] [facility] [id number] [place] [address]- [address] 02 Jul, 2011 [facility] [address] [id number] [place] [address]- 69[address] Jun, [facility] [address] [id number] [address] Jun, [facility] [address] [facility] [id number] [place] [address]- [address] Jun, [facility] [address] [id number] [place] [address] 2540 May, [facility] [address] [id number] [place] [address] 2540 May, [facility] [address] [id number] [place] [address]- [address] May, [facility] [address] [id number] [place] [address]- 8526 May, [facility] [address] [facility] [id number] [place] [address]- 5756 14 May, 2011 [facility] [address] [id number] [place] [address]- 2364 16 Apr, 2011 [facility] [address] [id number] [place] [address]- 7626 16 Apr, 2011 [facility] [address] [id number] [place] [address]- 0462 15 Apr, 2011 [facility] [address] [id number] [place] [address]- 2168 14 Apr, 2011 [facility] [address] [id number] [place] [address]- 4685 25 Mar, 2011 [facility] [address] [id number] [place] [address]- 2255 24 Mar, 2011 [facility] [address] [id number] [place] [address]- [address] 19 Mar, 2011 [facility] [address] [id number] [address]- 8[address] 19 Mar, 2011 [facility] [address] [id number] [place] [address]- 0722 17 Mar, 2011 [facility] [address] [id number] [address]- 0315 17 Mar, 2011 [facility] [address] [id number] [address]- 3430 16 Feb, 2011 [facility] [address] [id number] [address]- 2777 10 Nov, 2010 [facility] [address] [id number][place] [address]- 2956 17 Aug, 2010 [facility] [address] [id number] [address]- 2592 11 Apr, 2010 [facility] [address] [id number], [place] [address]- 7478 16 Mar, 2010 [facility] [address] [id number], [place] [address]- 28[address] Apr, [facility] [address] [facility] [id number] [place] [address]- [address] Apr, [facility] [address] [facility] [id number][place] [address]- [address] Sep, [facility] [address] [facility] [id number] [place] [address]- [address] Mar, IMMUNIZATIONS No Known Immunizations SOCIAL HISTORY Never Assessed REASON FOR VISIT Medication question// PLAN OF CARE VITAL SIGNS MEDICATIONS No [...]
[2018-06-19] MEDS ORDERED: PROMETHAZINE INJ 25 MG/ML (PHENERGAN) AMP IVP ONE (13:30)
[2018-06-19] MEDS ORDERED: KETOROLAC 30 MG/ML VIAL IVP ONE (13:30)
--- OUTSIDE RECORDS SUMMARY | 2018-06-19 13:30 | XMS REPORT ---
Author Author ARISTEO ARAYA Organization [facility] Address [address] [place] [address] Care Team Providers Care Speech And Language Assistant Name Role Phone ARISTEO ARAYA Unavailable PROBLEMS Type Condition ICD9-CM Code SHW63-HF Code Onset Dates Condition Status SNOMED Code Problem Non morbid obesity due to excess calories E66.09 Active 264122821 Problem Unsteady gait R26.81 Active 69795771 Problem Eosinophilic colitis K52.82 Active 58652414 Problem Acute right-sided low back pain with right-sided sciatica M54.41 Active 198672287 Problem Paresthesias in left hand R20.2 Active 244238781 Problem Non morbid obesity E66.9 Active 383204915 Problem Other chronic gastritis without hemorrhage K29.50 Active 6402543 Problem GERD with esophagitis K21.0 Active 920091555 Problem Sacral pain M53.3 Active 31170919 Problem Fibromyalgia M79.7 Active 009020064 Problem Other chronic pain G89.29 Active 45453228 Problem Bronchitis J40 Active 73700227 Problem Migraine without aura and without status migrainosus, not intractable G43.009 Active 958137217 Problem Hypertension, benign I10 Active 33718013 ALLERGIES No Information ENCOUNTERS Encounter Location Date Diagnosis [place] [id number] [place] [address] 34652- 6380 Sep, Hypertension, benign I10 and Acute right-sided low back pain with right-sided sciatica M54.41 [facility] [id number] [place] [address] 20681- 5422 Sep, Fibromyalgia M79.7 and Hypertension, benign I10 [facility] [id number] [place] [address] 13724- 7161 Aug, [place] [address] 49936- 1248 Aug, Fibromyalgia M79.7 ; Frequent headaches R51 and Non morbid obesity due to excess calories E66.09 [place] [address] 29928- 5515 Jul, [place] [address] 80931- 0622 Jul, Fibromyalgia M79.7 [place] [address] 43493- 1016 Jul, Viral gastroenteritis A08.4 and Paresthesias in left hand R20.[address] 39496- 1779 Jun, Non morbid obesity due to excess calories E66.09 [place] [address] 22827- 7504 Jun, [place] [address] 95994- 0904 Jun, Fibromyalgia M79.7 [place] [address] 29186- 5995 May, Non morbid obesity due to excess calories E66.09 and Hypertension, benign I10 [place] [address] 42141- 2753 May, GERD with esophagitis K21.0 [place] [address] 21566- 2728 Apr, BMI 40.0-44.9, adult Z68.41 and Non morbid obesity E66.9 [place] [address] 05476- 5140 Mar, Unsteady gait R26.81 [place] [address] 40021- 3291 Mar, Unsteady gait R26.81 ; Sacral pain M53.3 and Fibromyalgia M79.7 [place] [id number] [place] [address] 59365- 6503 05 Mar, 2017 Non morbid obesity due to excess calories E66.09 [place] [id number] [place] [address] 80623- 7686 28 Feb, 2017 Abdominal pain, generalized R10.84 [place] [id number] [place] [address] 31899- 9080 18 Feb, 2017 Other chronic gastritis without hemorrhage K29.50 and H. pylori infection A04.8 [place] [id number] [place] [address] 56817- 8710 07 Feb, 2017 Back pain 724.5 ; Pain in left shoulder M25.512 ; Fibromyalgia M79.7 and Non morbid obesity due to excess calories E66.09 [place] [id number] [place] [address] 80110- 0674 07 Feb, 2017 BMI 40.0-44.9, adult Z68.41 [place] [id number] [place] [address] 39977- 1977 Jan, Dysuria R30.0 and Acute cystitis with hematuria N30.01 [place] [id number] [place] [address] 18673- 6740 10 Jan, 2017 Dysuria R30.0 [place] [id number] [place] [address] 39038- 1195 Dec, Fibromyalgia M79.7 [place] [id number] [place] [address] 12620- 0133 Dec, Screening for diabetes mellitus Z13.1 and Fibromyalgia M79.7 [place] [id number] [place] [address] 97181- 0258 Dec, Fibromyalgia M79.7 [place] [id number] [place] [address] 84840- 8000 Dec, [place] [address] 19332- 2353 Dec, Fibromyalgia M79.7 [place] [id number] [place] [address] 61452- 1318 Nov, Foreign body in foot, left, initial encounter S90.852A [place] [id number] [place] [address] 12515- 0853 Nov, Viral gastroenteritis A08.4 [place] [address] 24740- 0752 Nov, Fall, initial encounter W19.XXXA ; Post-traumatic headache, unspecified, not intractable G44.309 ; Dizziness R42 ; Unsteady gait R26.81 ; Sacral pain M53.3 and Non morbid obesity due to excess calories E66.09 [place] [address] 05310- 2024 Nov, [place] [address] 81108- 5783 Nov, [place] [address] 05869- 1759 October, Non morbid obesity due to excess calories E66.09 and Hypertension, benign I10 [place] [id number] [place] [address] 82677- 4800 October, Fibromyalgia M79.7 [place] [address] 81274- 9197 Sep, [place] [address] 87261- 8884 Sep, [place] [address] 47607- 9273 Sep, Eosinophilic colitis K52.82 [place] [id number] [place] [address] 83720- 7917 Aug, Bronchitis J40 [place] [address] 20949- 3693 Aug, [facility] [address] [place] [address] 65172- 7885 Aug, Pain in left shoulder M25.512 ; Bronchitis J40 ; Acute midline back pain, unspecified location M54.9 ; Migraine without aura and without status migrainosus, not intractable G43.009 ; Fibromyalgia M79.7 and Pain of upper abdomen R10.10 [place] [address] 20855- 4181 Aug, [place] [id number] [place] [address] 59614- 0508 Aug, [place] [id number] [place] [address] 94106- 2395 Jul, Other viral agents as the cause of diseases classified elsewhere B97.89 and Acute upper respiratory infection, unspecified J06.9 [place] [id number] [place] [address] 78665- 4592 Jun, [facility] [id number] [place] [address] 65179 -2599 Jun, [facility] [id number] [place] [address] 99416- 3942 May, Abscess L02.91 [facility] [id number] [place] [address] 98170- 6444 May, Acute midline low back pain without sciatica M54.5 [facility] [id number] [place] [address] 60046 -9712 May, [place] [id number] [place] [address] 64505- 4987 Apr, [facility] [id number] [place] [address] 44136- 2825 Apr, Other chronic pain G89.29 ; Pain in right shoulder M25.511 and Pain in left shoulder M25.512 [place] [address] [place] [address]- 0450 16 Apr, 2016 [facility] [address] [place] [address] 27874- 1235 10 Apr, 2016 [facility] [id number] [place] [address] 72523- 4867 10 Apr, 2016 Fibromyalgia M79.7 ; Other chronic pain G89.29 and Pain in left shoulder M25.512 [facility] [address] [place] [address] 46532- 3335 04 Apr, 2016 Bronchitis J40 [facility] [address] [place] [address] 58655- 5587 27 Mar, 2016 [facility] [id number] [address] Mar, [facility] [address] [place] [address] 39342- 6363 29 Feb, 2016 [facility] [place] [facility] [id number] [place] [address] 20524- 8351 26 Feb, 2015 [facility] [address] [place] [address] 60410- 8333 23 Feb, 2015 [facility] [address] [place] [address] 99867- 4291 22 Feb, 2015 [facility] [address] [address]- 0074 20 Feb, 2015 [facility] [place] [facility] [address] [place] [address] 02208- 6480 19 Feb, 2015 [facility] [place] [facility] [address] [address]- 5728 19 Feb, 2016 Dysuria R30.0 [facility] [address] [place] [address] 62299- 7071 19 Feb, 2016 Dysuria R30.0 [facility] [address] [address]- 9569 16 Feb, 2016 [facility] [place] [facility] [id number] [place] [address] 08685- 1886 15 Feb, 2016 Migraine, unspecified, not intractable, without status migrainosus G43.909 and Fibromyalgia M79.7 [facility] [id number] [place] [address] 32154- 8151 Feb, Migraine without aura and without status migrainosus, not intractable G43.009 [facility] [id number] [place] [address] 64305- 3106 Jan, [facility] [address] 49951- 7312 Jan, [place] [id number] [place] [address] 24904- 0283 Jan, [facility] [address] 61297- 0417 Jan, [facility] [id number] [place] [address] 08929- 8841 Jan, Unsteady gait R26.81 ; Fibromyalgia M79.7 and Family history of rheumatoid arthritis Z82.61 [place] [id number] [place] [address] 93905- 2951 Dec, [facility] [id number] [place] [address] 91718- 9422 Dec, [facility] [id number] [place] [address] 28113- 1044 Nov, Pain in left shoulder M25.512 [facility] [id number] [place] [address] 82174- 6134 October, Viral gastroenteritis A08.4 [facility] [id number] [place] [address] 83361 -7841 October, Pain of upper abdomen R10.10 [facility] [id number] [place] [address] 19095- 5366 October, Acute midline back pain, unspecified location M54.9 [facility] [address] [address]- 9964 Aug, Elbow pain, right M25.521 [facility] [id number] [place] [address] 63763- 4950 Aug, Elbow pain, right M25.521 [facility] [id number] [place] [address] 24830- 0397 Aug, Pain of right upper extremity M79.601 [facility] [id number] [place] [address] 31815- 5370 Jun, Lumbar neuritis M54.16 [facility] [id number] [place] [address] 11290- 7678 May, [facility] [id number] [place] [address] 35041- 7590 Apr, Non morbid obesity due to excess calories E66.09 [facility] [id number] [place] [address] 69191- 8234 Apr, Non morbid obesity due to excess calories E66.09 and Thoracic neuritis M54.14 [facility] [address] [place] [address] 43200- 6927 Apr, Elbow pain, right M25.521 [facility] [address] [place] [address] 65202- 7384 Mar, Right elbow pain M25.521 [facility] [id number] [place] [address] 70797- 7080 Mar, [facility] [id number] [place] [address] 01236- 8970 30 Feb, 2015 Urinary tract infection, site not specified 599.0 [facility] [address] [place] [address] 74952- 4498 14 Feb, 2015 [facility] [id number] [place] [address] 58742- 2134 Jan, Spider bite 989.5 [facility] [address] 95117- 0680 Jan, Spider bite 989.5 [facility] [address] 19304- 2144 Jan, Spider bite 989.5 [facility] [address] 98996- 0858 Nov, Back pain 724.5 and Diabetes 250.00 [facility] [address] 12013- 1055 Nov, Back pain 724.5 and Muscle spasm of back 724.8 [facility] [address] 09215- 4478 Nov, Alternating constipation and diarrhea 787.99 [facility] [address] 31155- 3580 October, Back pain 724.5 and Hip pain 719.45 [facility] [address] 02414- 2687 Sep, [facility] [address] 65172- 9082 Sep, [facility] [address] 96279- 4937 Aug, [facility] [address] 29893- 3587 Aug, [facility] [address] 55744- 4231 Aug, [facility] [id number] [place] [address] 48129- 5070 Aug, [facility] [address] 17219- 4596 Aug, [facility] [address] [id number] [place] [address]- 0242 Aug, [facility] [place] [facility] [address] [id number] [place] [address]- 9985 Jul, [facility] [place] [facility] [address] [id number] [place] [address]- 6737 Jul, [facility] [place] [facility] [address] [id number] [place] [address]- 7077 Jun, [facility] [place] [facility] [address] [id number] [place] [address]- 2467 Jun, [facility] [place] [facility] [address] [id number] [place] [address]- 4315 Jun, [facility] [place] [facility] [address] [id number] [place] [address]- 6249 Jun, [facility] [place] [facility] [address] [id number] [place] [address]- 4089 Jun, [facility] [place] [facility] [address] [id number] [place] [address]- 6406 Jun, [facility] [place] [facility] [address] [id number] [place] [address]- 0980 Jun, [facility] [place] [facility] [address] [id number] [place] [address]- 5918 May, [facility] [place] [facility] [address] [id number] [address]- 1114 May, [facility] [place] [facility] [address] [id number] [place] [address]- 4733 May, [facility] [place] [facility] [address] [id number] [place] [address]- 2556 May, [facility] [place] [facility] [address] [id number] [place] [address]- 8973 Apr, [facility] [place] [facility] [address] [id number] [place] [address]- 4547 Apr, [facility] [place] [facility] [address] [id number] [place] [address]- 4958 Mar, [facility] [place] [facility] [address] [id number] [place] [address]- 9302 Mar, [facility] [place] [facility] [address] [id number] [place] [address]- 6677 Mar, [facility] [place] [facility] [address] [id number] [place] [address]- 7002 Mar, [facility] [place] [facility] [address] [id number] [place] [address]- 3779 Mar, [facility] [place] [facility] [address] [id number] [place] [address]- 4473 Mar, [facility] [place] [facility] [address] [id number] [place] [address]- 4786 Mar, [facility] [place] [facility] [address] [id number] [place] [address]- 8605 Mar, [facility] [place] [facility] [address] [id number] [place] [address]- 1557 Mar, [facility] [place] [facility] [address] [id number] [place] [address]- 2341 Mar, [facility] [place] [facility] [address] [id number] [place] [address]- 3427 16 Feb, 2014 [facility] [place] [facility] [address] [id number] [place] [address]- 9749 Feb, [facility] [place] [facility] [address] [id number] [place] [address]- 2019 Jan, [facility] [place] [facility] [address] [id number] [place] [address]- 3573 Jan, [facility] [place] [facility] [address] [id number] [place] [address]- 5705 Jan, [facility] [place] [facility] [address] [id number] [place] [address]- 6703 Jan, [facility] [place] [facility] [address] [id number] [place] [address]- 6825 Jan, [facility] [place] [facility] [address] [id number] [place] [address]- 9099 Jan, [facility] [place] [facility] [address] [id number] [place] [address]- 4050 Jan, [facility] [place] [facility] [address] [id number] [place] [address]- 3113 Jan, [facility] [place] [facility] [address] [id number] [place] [address]- 0473 Jan, [facility] [place] [facility] [address] [id number] [place] [address]- 6026 Jan, [facility] [place] [facility] [address] [id number] [place] [address]- 5713 Dec, [facility] [place] [facility] [address] [id number] [place] [address]- 3110 Dec, [facility] [place] [facility] [address] [id number] [place] [address]- 2169 Dec, [facility] [place] [facility] [address] [id number] [place] [address]- 2453 Dec, [facility] [place] [facility] [address] [id number] [place] [address]- 9803 Nov, [facility] [place] [facility] [address] [id number] [place] [address]- 4900 Nov, [facility] [place] [facility] [address] [id number] [place] [address]- 0123 Nov, [facility] [place] [facility] [address] [id number] [place] [address]- 9410 Nov, [facility] [place] [facility] [address] [id number] [place] [address]- 0417 October, [facility] [place] [facility] [address] [id number] [place] [address]- 5225 October, [facility] [place] [facility] [address] [id number] [place] [address]- 9495 Sep, [facility] [place] [facility] [address] [id number] [place] [address]- 0864 Sep, [facility] [place] [facility] [address] [id number] [place] [address]- 0725 Sep, [facility] [place] [facility] [address] [id number] [place] [address]- 7483 Sep, [facility] [place] [facility] [address] [id number] [place] [address]- 0149 Sep, [facility] [place] [facility] [address] [id number] [place] [address]- 8017 Sep, [facility] [place] [facility] [address] [id number] [place] [address]- 3056 Sep, [facility] [place] [facility] [address] [id number] [place] [address]- 3459 Sep, [facility] [place] [facility] [address] [id number] [place] [address]- 3859 Sep, [facility] [place] [facility] [address] [id number] [place] [address]- 4527 Sep, [facility] [place] [facility] [address] [id number] [place] [address]- 5078 Jul, [facility] [place] [facility] [address] [id number] [place] [address]- 5715 Jul, [facility] [place] [facility] [address] [id number] [place] [address]- 7625 Jul, [facility] [place] [facility] [address] [id number] [place] [address]- 1202 Jul, [facility] [place] [facility] [address] [id number] [place] [address]- 9758 Jun, [facility] [address] [id number] [place] [address]- 6373 Jun, [facility] [place] [facility] [address] [id number] [place] [address]- 5843 Jun, [facility] [place] [facility] [address] [id number] [place] [address]- 5692 Jun, [facility] [place] [facility] [address] [id number] [place] [address]- 7385 Jun, [facility] [place] [facility] [address] [id number] [place] [address]- [address] Jun, [facility] [place] [facility] [address] [id number] [place] [address]- 0445 Apr, [facility] [place] [facility] [address] [id number] [place] [address]- 0085 Apr, [facility] [place] [facility] [address] [id number] [place] [address]- 8245 Apr, [facility] [place] [facility] [address] [id number] [place] [address]- 1679 Apr, [facility] [place] [facility] [address] [id number] [place] [address] Apr, [facility] [place] [facility] [address] [id number] [place] [address] Apr, [facility] [place] [facility] [address] [id number] [place] [address] Apr, [facility] [place] [facility] [address] [id number] [place] [address] Apr, [facility] [place] [facility] [address] [id number] [place] [address] Mar, [facility] [place] [facility] [address] [id number] [place] [address] Mar, [facility] [address] [id number] [place] [address] Feb, [facility] [place] [facility] [address] [id number] [place] [address] Feb, [facility] [place] [facility] [address] [id number] [place] [address] Dec, [facility] [place] [facility] [address] [id number] [place] [address] Dec, [facility] [address] [id number] [place] [address] Dec, [facility] [place] [facility] [address] [id number] [place] [address] Dec, [facility] [place] [facility] [address] [id number] [place] [address] Dec, [facility] [place] [facility] [address] [id number] [place] [address] Dec, [facility] [place] [facility] [address] [id number] [place] [address] Dec, [facility] [place] [facility] [address] [id number] [place] [address] Nov, [facility] [place] [facility] [address] [id number] [place] [address] Nov, [facility] [place] [facility] [address] [id number], [place] [address] Nov, [facility] [place] [facility] [address] [id number] [place] [address] Nov, [facility] [place] [facility] [address] [id number] [place] [address] October, [facility] [place] [facility] [address] [id number] [place] [address] October, [facility] [place] [facility] [address] [id number] [place] [address]- [address] October, [facility] [address] [id number] [place] [address] October, [facility] [place] [facility] [address] [facility] [id number] [place] [address] Sep, [facility] [address] [facility] [id number] [place] [address] Aug, [facility] [place] [facility] [address] [id number] [place] [address] Aug, [facility] [address] [id number] [place] [address]- [address] Aug, [facility] [place] [facility] [address] [facility] [id number] [place] [address] Aug, [facility] [address] [facility] [id number] [place] [address] Aug, [facility] [address] [facility] [id number] [place] [address] Jul, [facility] [place] [facility] [address] [place] [id number] [place] [address] 27 Jul, 2012 [facility] [address] [facility] [id number] [place] [address] 26 Jul, 2012 [facility] [place] [facility] [id number] [place] [address] Jul, [facility] [place] [facility] [address] [facility] [id number] [place] [address] 25 Jul, 2012 [facility] [place] [facility] [address] [facility] [id number] [place] [address]- [address] 23 Jul, 2012 [facility] [place] [facility] [address] [facility] [id number] [place] [address]- [address] 20 Jul, 2012 [facility] [place] [facility] [id number] [place] [address] 15 Jul, 2012 [facility] [place] [facility] [address] [id number] [place] [address] 14 Jul, 2012 [facility] [place] [facility] [address] [id number] [place] [address] Jul, [facility] [place] [facility] [address] [address] [id number] [place] [address] Jun, [facility] [place] [facility] [address] [id number] [place] [address] Jun, [facility] [place] [facility] [address] [id number] [place] [address] Jun, [facility] [place] [facility] [address] [id number] [place] [address] May, [facility] [place] [facility] [address] [id number] [place] [address] May, [facility] [place] [facility] [address] [id number] [place] [address] Apr, [facility] [place] [facility] [address] [id number] [place] [address] Apr, [facility] [place] [facility] [address] [id number] [place] [address] Apr, [facility] [place] [facility] [address] [id number], [place] [address] Apr, [facility] [place] [facility] [address] [id number], [place] [address] Apr, [facility] [place] [facility] [address] [id number] [place] [address] Apr, [facility] [place] [facility] [address] [id number] [place] [address] Apr, [facility] [place] [facility] [address] [id number] [place] [address] 80[address] Apr, [facility] [place] [facility] [address] [id number] [place] [address] Mar, [facility] [place] [facility] [address] [id number] [place] [address] Mar, 2011 [facility] [place] [facility] [address] [id number] [place] [address] Mar, [facility] [place] [facility] [address] [id number] [place] [address] Mar, 2011 [facility] [place] [facility] [address] [id number] [place] [address] Mar, [facility] [place] [facility] [address] [id number] [place] [address] Mar, [facility] [place] [facility] [address] [id number] [place] [address] Mar, [facility] [place] [facility] [address] [id number] [place] [address]254 Mar, [facility] [place] [facility] [address] [id number] [place] [address] 288[address] Mar, [facility] [place] [facility] [address] [id number] [place] [address] Feb, [facility] [place] [facility] [address] [id number] [place] [address] Jan, [facility] [place] [facility] [address] [id number] [place] [address] 6[address] Jan, [facility] [place] [facility] [address] [id number] [place] [address] Jan, [facility] [place] [facility] [address] [id number] [place] [address] Dec, [facility] [place] [facility] [address] [id number] [place] [address]46 Dec, [facility] [place] [facility] [address] [id number] [place] [address] 9934 Dec, [facility] [place] [facility] [address] [id number] [place] [address] Nov, [facility] [address] [id number] [place] [address] October, [facility] [address] [id number] [place] [address] October, [facility] [address] [id number] [place] [address] October, [facility] [address] [id number] [place] [address] October, [facility] [address] [id number] [place] [address] 80[address] October, [facility] [address] [id number] [place] [address] Sep, [facility] [address] [id number] [place] [address] 9[address] Sep, [facility] [address] [id number] [place] [address] 5485 Sep, [facility] [address] [id number] [place] [address] 9521 Sep, [facility] [address] [id number] [place] [address] Sep, [facility] [place] [facility] [address] [id number] [place] [address] Sep, [facility] [place] [facility] [address] [id number] [place] [address] 4954 Sep, [facility] [place] [facility] [address] [id number] [place] [address] Aug, [facility] [place] [facility] [address] [id number] [place] [address]149 Aug, [facility] [place] [facility] [address] [id number] [place] [address] 8607 21 Aug, 2011 [facility] [address] [id number] [place] [address] 21 Aug, 2011 [facility] [place] [facility] [address] [id number] [place] [address] 2736 20 Aug, 2011 [facility] [place] [facility] [address] [id number] [place] [address]- 6316 19 Aug, 2011 [facility] [place] [facility] [address] [id number] [place] [address] 2386 16 Aug, 2011 [facility] [place] [facility] [address] [id number] [place] [address] 7623 15 Aug, 2011 [facility] [place] [facility] [address] [id number] [place] [address] 0872 15 Aug, 2011 [facility] [address] [id number] [place] [address] 1413 14 Aug, 2011 [facility] [place] [facility] [address] [id number] [place] [address]- 5710 12 Aug, 2011 [facility] [place] [facility] [address] [id number] [place] [address]- 4490 08 Aug, 2011 [facility] [place] [facility] [address] [id number] [place] [address] 9944 15 Jul, 2011 [facility] [place] [facility] [address] [id number] [place] [address]- [address]559 15 Jul, 2011 [facility] [place] [facility] [address] [id number] [place] [address]- 2935 14 Jul, 2011 [facility] [place] [facility] [address] [id number] [place] [address]- [address] 06 Jul, 2011 [facility] [place] [facility] [address] [id number] [place] [address]- 3646 02 Jul, 2011 [facility] [place] [facility] [address] [id number] [place] [address] 8957 18 Jun, 2011 [facility] [place] [facility] [address] [id number] [place] [address]- 0879 Jun, [facility] [place] [facility] [address] [id number] [place] [address] Jun, [facility] [place] [facility] [address] [id number] [place] [address] 5400 May, [facility] [place] [facility] [address] [id number] [place] [address]- 7052 May, [facility] [place] [facility] [address] [id number] [place] [address]- 9554 May, [facility] [place] [facility] [address] [id number] [place] [address]- 0491 May, [facility] [place] [facility] [address] [id number] [place] [address]- 6629 14 May, 2011 [facility] [place] [facility] [address] [id number] [place] [address]- 1739 16 Apr, 2011 [facility] [place] [facility] [address] [id number] [place] [address]- 7371 16 Apr, 2011 [facility] [place] [facility] [address] [id number] [place] [address]- 2929 15 Apr, 2011 [facility] [place] [facility] [address] [id number] [place] [address]- 8800 14 Apr, 2011 [facility] [place] [facility] [address] [id number] [place] [address]- 5865 25 Mar, 2011 [facility] [place] [facility] [address] [id number] [place] [address]- 6902 24 Mar, 2011 [facility] [place] [facility] [address] [id number] [place] [address]- 5838 Mar, [facility] [place] [facility] [address] [id number] [place] [address] 19 Mar, 2011 [facility] [place] [facility] [address] [id number] [place] [address] Mar, [facility] [address] [id number] [address]84 17 Mar, 2011 [facility] [id number], [place] [address] Feb, [facility] [address] [id number], [place] [address] Nov, [facility] [id number], [place] [address] Aug, [facility] [id number], [place] [address] 6[address] Apr, [facility] [id number], [place] [address] 3838 Mar, [facility] [address], [place] [address] 2359 Apr, [facility] [id number], [place] [address] 5141 Apr, [facility] [address] [id number], [place] [address] Sep, [facility] [address] [id number], [place] [address] Mar, IMMUNIZATIONS No Known Immunizations SOCIAL HISTORY Never Assessed REASON FOR VISIT PLAN OF CARE VITAL SIGNS MEDICATIONS Medication Instructions Dosage Frequency Start Date End Date Duration Status Walker [place] Wheels - with bench seat. DX: fibromyalgia, [...]
--- OUTSIDE RECORDS SUMMARY | 2018-06-19 13:31 | XMS REPORT ---
Author Author ARISTEO ARAYA Organization [facility] Address [address] [place] [address] Care Team Providers Care Staff Antisubmarine Officer Name Role Phone MARSHAL ARISTEO Unavailable PROBLEMS Type Condition ICD9-CM Code [id number] Code Onset Dates Condition Status SNOMED Code Problem Migraine without aura and without status migrainosus, not intractable G43.009 Active 890576022 Problem Other chronic pain G89.29 Active 63958527 Problem Fibromyalgia M79.7 Active 131934300 Problem Other chronic gastritis without hemorrhage K29.50 Active 5490343 Problem Unsteady gait R26.81 Active 99531749 Problem Hypertension, benign I10 Active 72476724 Problem Bronchitis J40 Active 65310322 Problem Eosinophilic colitis K52.82 Active 52568561 Problem Non morbid obesity due to excess calories E66.09 Active 935703419 ALLERGIES Substance Reaction Event Type Date Status Singulair Unknown Drug Allergy Aug, Active Lisinopril Unknown Drug Allergy Aug, Active metals Unknown Non Drug Allergy Aug, Active SOCIAL HISTORY Never Assessed PLAN OF CARE VITAL SIGNS Height 63 in 2016-08-14 Weight 209.5 lbs 2016-08-14 Temperature 98.5 degrees Fahrenheit 2016-08-14 Heart Rate 76 bpm 2016-08-14 Respiratory Rate 18 2016-08-14 BMI 37.11 kg/m2 2016-08-14 Blood pressure systolic 120 mmHg 2016-08-14 Blood pressure diastolic 80 mmHg 2016-08-14 MEDICATIONS Medication Instructions Dosage Frequency Start Date End Date Duration Status Topamax 25 MG Orally Twice a day, voucher 1 tablet Aug, 30 day(s) Active Cymbalta 60 MG Orally Once a day 1 capsule 24h Active Metformin HCl 1000 MG Orally Twice a day 1 tablet with meals 12h 10 Nov, 2014 30 day(s) Active Sumatriptan Succinate 100 mg Orally Once a day,voucher 1 tablet as needed Aug, Active Advair Diskus 250-50 mcg/dose 1 puffs by Inhalation route 2 times per day 16 Sep, 2014 90 days Active Diclofenac Sodium 75 MG Orally Twice a day, voucher 1st fill 1 tablet with food or milk Apr, Sep, 30 day(s) Active Promethazine HCl 25 MG Orally 3 times a day. voucher 1 tablet as needed Jul, Active Walker [place] Wheels - with bench seat. DX: fibromyalgia, unsteady gait as directed Jan, Active Lyrica 100 MG Orally 3 times a day 1 capsule by Oral route 3 times per day for fibromyalgia (729.1) 8h Mar, 30 days Active Nexium 40 mg Orally Once a day 1 capsule 24h Apr, 90 days Active Glucocard Expression Monitor w/Device as directed Aug, Active Micardis 20 mg 1 tablet by Oral route 1 time per day Jun, Active Seroquel XR 150 MG Orally Once a day 1 tablet in the evening 24h Active Crestor 10 mg Orally Once a day 1 tablet 24h Feb, 90 days Active Mirtazapine 15 MG Orally Once a day 1 tablet at bedtime 24h Active Glucocard Expression Test - test blood sugar Aug, Active RESULTS No Results PROCEDURES No Known procedures IMMUNIZATIONS No Known Immunizations MEDICAL (GENERAL) HISTORY Type Description Date Medical [...]
--- OUTSIDE RECORDS SUMMARY | 2018-06-19 13:31 | XMS REPORT ---
Author Author ARISTEO ARAYA Organization [facility] Address [address] [place] [address] Care Team Providers Care Vessel Manager Name Role Phone ARISTEO ARYAA Unavailable PROBLEMS Type Condition ICD9-CM Code [id number] Code Onset Dates Condition Status SNOMED Code Problem Hypertension, benign I10 Active 98713010 Problem Eosinophilic colitis K52.82 Active 64566265 Problem Non morbid obesity due to excess calories E66.09 Active 720650875 Problem Migraine without aura and without status migrainosus, not intractable G43.009 Active 408532242 Problem Fibromyalgia M79.7 Active 290352433 Problem Other chronic pain G89.29 Active 89591425 Problem Bronchitis J40 Active 65023927 Problem Paresthesias in left hand R20.2 Active 513644366 Problem GERD with esophagitis K21.0 Active 489883002 Problem Other chronic gastritis without hemorrhage K29.50 Active 2341559 Problem Unsteady gait R26.81 Active 35776733 Problem Sacral pain M53.3 Active 65485343 Problem Non morbid obesity E66.9 Active [id number] ALLERGIES No Information ENCOUNTERS Encounter Location Date Diagnosis [place] [address] [address] Sep, Fibromyalgia M79.7 and Hypertension, benign I10 [facility] [address] [place] [id number] [place] [address] 35923- 5480 Aug, [facility] [address] 18314- 6935 Aug, Fibromyalgia M79.7 ; Frequent headaches R51 and Non morbid obesity due to excess calories E66.09 [facility] [id number] [place] [address] 06088- 3007 Jul, [facility] [address] 69234- 0684 Jul, Fibromyalgia M79.7 [place] [address] 96991- 8376 Jul, Viral gastroenteritis A08.4 and Paresthesias in left hand R20.2 [place] [address] 98178- 8709 Jun, Non morbid obesity due to excess calories E66.09 [place] [address] 85108- 8990 Jun, [place] [address] 97043- 1923 Jun, Fibromyalgia M79.7 [place] [address] 03778- 5457 May, Non morbid obesity due to excess calories E66.09 and Hypertension, benign I10 [place] [address] 01850- 1823 May, GERD with esophagitis K21.[address] [address]757- 9120 Apr, BMI 40.0-44.9, adult Z68.41 and Non morbid obesity E66.9 [place] [address] 52562- 4130 Mar, Unsteady gait R26.81 [place] [address] 57616- 2278 Mar, Unsteady gait R26.81 ; Sacral pain M53.3 and Fibromyalgia M79.7 [place] [address] 01891- 4078 Mar, Non morbid obesity due to excess calories E66.09 [place] [address] 32258- 4162 Feb, Abdominal pain, generalized R10.84 [place] [address] [place] [id number] [place] [address] 45784- 9430 18 Feb, 2017 Other chronic gastritis without hemorrhage K29.50 and H. pylori infection A04.8 [place] [address] [place] [id number] [place] [address] 12450- 6094 07 Feb, 2017 Back pain 724.5 ; Pain in left shoulder M25.512 ; Fibromyalgia M79.7 and Non morbid obesity due to excess calories E66.09 [place] [address] [place] [id number] [place] [address] 23132- 8175 07 Feb, 2017 BMI 40.0-44.9, adult Z68.41 [place] [address] 09073- 7431 14 Jan, 2017 Dysuria R30.0 and Acute cystitis with hematuria N30.01 [place] [address] 84593- 0280 Jan, Dysuria R30.0 [place] [address] [place] [id number] [place] [address] 95686- 0066 Dec, Fibromyalgia M79.7 [place] [address] [place] [id number] [place] [address] 17966- 1194 Dec, Screening for diabetes mellitus Z13.1 and Fibromyalgia M79.7 [place] [address] [place] [id number] [place] [address] 14717- 4475 Dec, Fibromyalgia M79.7 [place] [address] [place] [id number] [place] [address] 38248- 2693 Dec, [place] [address] 62857- 4750 Dec, Fibromyalgia M79.7 [place] [address] [place] [id number] [place] [address] 10763- 7492 Nov, Foreign body in foot, left, initial encounter S90.852A [place] [address] 82391- 8471 Nov, Viral gastroenteritis A08.4 [place] [address] [place] [id number] [place] [address] 77039- 0792 Nov, Fall, initial encounter W19.XXXA ; Post-traumatic headache, unspecified, not intractable G44.309 ; Dizziness R42 ; Unsteady gait R26.81 ; Sacral pain M53.3 and Non morbid obesity due to excess calories E66.09 [place] [address] 55448- 2626 Nov, [place] [address] [place] [id number] [place] [address] 53949- 6711 Nov, [place] [address] 78308- 0070 October, Non morbid obesity due to excess calories E66.09 and Hypertension, benign I10 [place] [address] 09303- 7110 October, Fibromyalgia M79.7 [place] [address] [place] [id number] [place] [address] 59395- 1347 Sep, [place] [address] 69070- 4714 Sep, [place] [address] [place] [id number] [place] [address] 63203- 3559 Sep, Eosinophilic colitis K52.82 [place] [address] [place] [id number] [place] [address] 38878- 2920 Aug, Bronchitis J40 [place] [address] [place] [id number] [place] [address] 10637- 3510 Aug, [place] [address] 69930- 3738 Aug, Pain in left shoulder M25.512 ; Bronchitis J40 ; Acute midline back pain, unspecified location M54.9 ; Migraine without aura and without status migrainosus, not intractable G43.009 ; Fibromyalgia M79.7 and Pain of upper abdomen R10.10 [facility] [address] [place] [id number] [place] [address] 63537- 2321 Aug, [facility] [address] 48413- 3475 Aug, [facility] [address] [place] [id number] [place] [address] 83403- 8964 Jul, Other viral agents as the cause of diseases classified elsewhere B97.89 and Acute upper respiratory infection, unspecified J06.9 [facility] [address] [place] [id number] [place] [address] 23296- 3807 Jun, [facility] [address] 04664 -2303 Jun, [facility] [address] 17745- 8452 May, Abscess L02.91 [place] [address] 31826- 0788 May, Acute midline low back pain without sciatica M54.5 [facility] [address] 53760 -5924 May, [place] [address] [place] [id number] [place] [address] 77912- 1768 Apr, [place] [address] [place] [id number] [place] [address] 15054- 1998 Apr, Other chronic pain G89.29 ; Pain in right shoulder M25.511 and Pain in left shoulder M25.512 [place] [address] 41934- 2626 Apr, [place] [address] [place] [id number] [place] [address] 71182- 7771 Apr, [facility] [address] 41322- 8237 Apr, Fibromyalgia M79.7 ; Other chronic pain G89.29 and Pain in left shoulder M25.512 [facility] [address] [place] [id number] [place] [address] 07778- 8113 04 Apr, 2016 Bronchitis J40 [facility] [id number] [place] [address] 01312- 8172 27 Mar, 2016 [facility] [address] [id number] [place] [address] [id number] Mar, [facility] [address] [place] [id number] [place] [address] 92434- 1345 29 Feb, 2015 [facility] [address] [place] [id number] [place] [address] 57364- 1441 26 Feb, 2016 [facility] [address] [place] [id number] [place] [address] 60486- 8795 23 Feb, 2015 [facility] [address] [place] [id number] [place] [address] 86614- 2545 22 Feb, 2015 [facility] [address] [place] [id number] [place] [address] 13972- 2545 20 Feb, 2015 [facility] [address] [place] [id number] [place] [address] 70607- 2544 19 Feb, 2015 [facility] [address] [place] [id number] [place] [address] 23203- 3160 19 Feb, 2015 Dysuria R30.0 [facility] [address] [place] [id number] [place] [address] 29747 2541 19 Feb, 2015 Dysuria R30.0 [facility] [address] [place] [id number] [place] [address] 08993 2541 16 Feb, 2015 [facility] [address] [place] [id number] [place] [address] 03626- 2547 15 Feb, 2016 Migraine, unspecified, not intractable, without status migrainosus G43.909 and Fibromyalgia M79.7 [facility] [address] [place] [id number] [place] [address] 28473- 6853 Feb, Migraine without aura and without status migrainosus, not intractable G43.009 [facility] [address] [place] [id number] [place] [address] 92404- 1241 Jan, [facility] [address] [place] [id number] [place] [address] 27248- 5116 Jan, [facility] [address] 73888- 4714 Jan, [facility] [address] 56014- 1738 Jan, [facility] [address] 25818- 0654 Jan, Unsteady gait R26.81 ; Fibromyalgia M79.7 and Family history of rheumatoid arthritis Z82.61 [place] [address] 44095- 1398 Dec, [facility] [address] [place] [id number] [place] [address] 09275- 5706 Dec, [facility] [address] 52058- 7959 Nov, Pain in left shoulder M25.512 [place] [address] [place] [id number] [place] [address] 87988- 1101 October, Viral gastroenteritis A08.4 [facility] [address] [id number] [place] [address] 62255 -5629 October, Pain of upper abdomen R10.10 [facility] [address] [place] [id number] [place] [address] 09367- 6841 October, Acute midline back pain, unspecified location M54.9 [facility] [address] [place] [id number] [place] [address] 69440- 4078 Aug, Elbow pain, right M25.521 [place] [address] 65602- 8788 Aug, Elbow pain, right M25.521 [facility] [address] [place] [id number] [place] [address] 53897- 2361 Aug, Pain of right upper extremity M79.601 [facility] [address] [place] [id number] [place] [address] 66182- 2390 Jun, Lumbar neuritis M54.16 [facility] [address] 46446- 9680 May, [facility] [address] [place] [id number] [place] [address] 01574- 6868 Apr, Non morbid obesity due to excess calories E66.09 [facility] [address] 27979- 3794 Apr, Non morbid obesity due to excess calories E66.09 and Thoracic neuritis M54.14 [facility] [address] [place] [id number] [place] [address] 00874- 9221 Apr, Elbow pain, right M25.521 [facility] [address] [place] [id number] [place] [address] 59070- 2125 Mar, Right elbow pain M25.521 [facility] [address] [place] [id number] [place] [address] 87705- 9254 Mar, [facility] [address] [place] [id number] [place] [address] 00832- 7696 Feb, Urinary tract infection, site not specified 599.0 [facility] [address] [place] [id number] [place] [address] 96222- 9000 Feb, [facility] [address] [place] [id number] [place] [address] 48026- 5372 Jan, Spider bite 989.5 [facility] [address] [place] [id number] [place] [address] 00116- 5136 Jan, Spider bite 989.5 [facility] [address] [place] [address]- 6065 Jan, Spider bite 989.5 [facility] [address] [id number] [place] [address] 69731- 8023 10 Nov, 2014 Back pain 724.5 and Diabetes 250.00 [facility] [address] [id number] [place] [address] 12368- 2904 Nov, Back pain 724.5 and Muscle spasm of back 724.8 [facility] [address] [id number] [place] [address] 07389- 3835 Nov, Alternating constipation and diarrhea 787.99 [facility] [address] [id number] [place] [address] 76743- 3045 October, Back pain 724.5 and Hip pain 719.45 [facility] [address] [id number] [place] [address] 79695- 3287 Sep, [facility] [id number] [place] [address] 79216- 3047 Sep, [facility] [address] [id number] [place] [address] 07954- 0810 Aug, [facility] [id number] [place] [address] 93819- 0472 Aug, [facility] [address] [place] [address] 05212- 0261 Aug, [facility] [id number] [place] [address] 43755- 4424 Aug, [facility] [address] [place] [address] 10138- 5804 Aug, [facility] [address] [place] [address] 066189- 4377 Aug, [facility] [address] 0532 Jul, [facility] [id number] [address]- 7563 Jul, [facility] [address] [id number] [place] [address]- 1381 Jun, [facility] [place] [facility] [address] [id number] [place] [address]- 2451 16 Jun, 2014 [facility] [address] [id number] [place] [address]- 9710 Jun, [facility] [place] [facility] [address] [id number] [place] [address]- 3938 Jun, [facility] [address] [id number] [place] [address]- 1658 Jun, [facility] [address] [id number] [place] [address]- 6107 Jun, [facility] [address] [id number] [place] [address]- 6098 Jun, [facility] [address] [id number] [place] [address]- 6782 May, [facility] [place] [facility] [address] [id number] [place] [address]- 8312 May, [facility] [address] [facility] [id number] [place] [address]- 6131 May, [facility] [place] [facility] [address] [id number] [place] [address]- 1323 May, [facility] [place] [facility] [address] [id number] [place] [address]- 4356 Apr, [facility] [place] [facility] [address] [id number] [place] [address]- 8881 Apr, [facility] [place] [facility] [address] [id number] [place] [address]- 6045 Mar, [facility] [place] [facility] [address] [id number] [place] 4654 Mar, [facility] [place] [facility] [address] [id number] [place] [address]- 9692 Mar, [facility] [place] [facility] [address] [id number] [place] [address]- 8640 Mar, [facility] [place] [facility] [address] [id number] [place] [address]- 1597 Mar, [facility] [place] [facility] [address] [id number] [place] [address]- 0894 Mar, [facility] [place] [facility] [address] [id number] [place] [address]- 6325 Mar, [facility] [place] [facility] [address] [id number] [place] [address]- 2023 Mar, [facility] [place] [facility] [address] [id number] [place] [address]- 8763 Mar, [facility] [place] [facility] [address] [id number] [place] [address]- 3775 Mar, [facility] [place] [facility] [address] [id number] [place] [address]- 5862 Feb, [facility] [place] [facility] [address] [id number] [place] [address]- 9608 Feb, [facility] [place] [facility] [address] [id number] [place] [address]- 6841 Jan, [facility] [place] [facility] [address] [id number] [address]- 6047 Jan, [facility] [place] [facility] [address] [id number] [place] [address]- 7495 Jan, [facility] [place] [facility] [address] [id number] [place] [address]- 9492 Jan, [facility] [place] [facility] [address] [id number] [place] [address]- 2384 Jan, [facility] [place] [facility] [address] [id number], [place] [address]- 1142 Jan, [facility] [place] [facility] [address] [id number] [place] [address]- 8468 Jan, [facility] [place] [facility] [address] [id number] [place] [address]- 0312 Jan, [facility] [place] [facility] [address] [id number] [place] [address]- 9659 Jan, [facility] [place] [facility] [address] [id number] [place] [address]- 2909 Jan, [facility] [place] [facility] [address] [id number] [place] [address]- 8688 Dec, [facility] [place] [facility] [address] [id number] [place] [address]- 5806 Dec, [facility] [place] [facility] [address] [id number] [place] [address]- 6218 Dec, [facility] [place] [facility] [address] [id number] [place] [address]- 1197 Dec, [facility] [place] [facility] [address] [id number] [place] [address]- 8278 Nov, [facility] [place] [facility] [address] [id number] [place] [address]- 9220 Nov, [facility] [place] [facility] [address] [id number] [place] [address]- 5596 Nov, [facility] [place] [facility] [address] [id number] [place] [address]- 8080 Nov, [facility] [place] [facility] [address] [id number] [place] [address]- 9171 October, [facility] [place] [facility] [address] [id number] [place] [address]- 0026 October, [facility] [place] [facility] [address] [id number] [place] [address]- 3790 Sep, [facility] [place] [facility] [address] [id number] [place] [address]- 0725 Sep, [facility] [place] [facility] [address] [id number] [place] [address]- 9329 Sep, [facility] [place] [facility] [address] [id number] [place] [address]- 9326 Sep, [facility] [place] [facility] [address] [id number] [place] [address]- 7976 Sep, [facility] [place] [facility] [address] [id number] [place] [address]- 3201 Sep, [facility] [place] [facility] [address] [id number] [place] [address]- 1028 Sep, [facility] [place] [facility] [address] [id number] [place] [address]- 7807 Sep, [facility] [place] [facility] [address] [id number] [place] [address]- 1148 Sep, [facility] [place] [facility] [address] [id number] [place] [address]- 5846 Sep, [facility] [place] [facility] [address] [id number] [place] [address]- 1854 Jul, [facility] [place] [facility] [address] [id number] [place] [address]- 0688 Jul, [facility] [place] [facility] [address] [id number] [place] [address]- 8414 Jul, [facility] [place] [facility] [address] [id number] [place] [address]- 2257 Jul, [facility] [place] [facility] [address] [id number] [place] [address]- 8231 Jun, [facility] [place] [facility] [address] [id number] [place] [address]- 4307 Jun, [facility] [place] [facility] [address] [id number] [place] [address]- 6703 15 Jun, 2013 [facility] [place] [facility] [address] [id number] [place] [address]- 3026 Jun, [facility] [place] [facility] [address] [id number] [place] [address]- 3074 Jun, [facility] [place] [facility] [address] [id number] [place] [address]- 5839 Jun, [facility] [place] [facility] [address] [id number] [place] [address]- 8692 Apr, [facility] [place] [facility] [address] [id number] [place] [address]- 0639 Apr, [facility] [place] [facility] [address] [id number] [place] [address]- 9930 Apr, [facility] [place] [facility] [address] [id number] [place] [address]- 7018 Apr, [facility] [place] [facility] [address] [id number] [place] [address]- 1299 Apr, [facility] [place] [facility] [address] [id number] [place] [address]- 9294 Apr, [facility] [place] [facility] [address] [id number] [place] [address]- 8568 Apr, [facility] [place] [facility] [address] [id number], [place] [address] Apr, [facility] [place] [facility] [address] [id number], [place] [address] Mar, [facility] [place] [facility] [address] [id number] [place] [address] Mar, [facility] [place] [facility] [address] [id number] [place] [address] Feb, [facility] [place] [facility] [address] [id number] [place] [address] 26 Feb, 2013 [facility] [place] [facility] [address] [id number] [place] [address] Dec, [facility] [address] [id number] [place] [address] Dec, [facility] [address] [id number] [place] [address] Dec, [facility] [address] [id number] [place] [address] Dec, [facility] [address] [id number] [place] [address] Dec, [facility] [address] [id number] [place] [address] Dec, [facility] [address] [id number] [place] [address] Dec, [facility] [address] [id number] [place] [address] Nov, [facility] [address] [id number] [place] [address] Nov, [facility] [address] [id number] [place] [address] Nov, [facility] [address] [id number] [place] [address] Nov, [facility] [address] [id number] [place] [address] October, [facility] [address] [id number] [place] [address] October, [facility] [address] [id number] [place] [address] October, [facility] [address] [id number] [place] [address]- [address] October, [facility] [address] [id number] [place] [address] Sep, [facility] [address] [id number] [place] [address] 30 Aug, 2012 [facility] [place] [facility] [address] [id number] [place] [address] 29 Aug, 2012 [facility] [place] [facility] [address] [id number] [place] [address] 22 Aug, 2012 [facility] [place] [facility] [address] [id number] [place] [address] 21 Aug, 2012 [facility] [place] [facility] [address] [id number] [place] [address]- [address] 13 Aug, 2012 [facility] [place] [facility] [address] [id number] [place] [address]- [address] 27 Jul, 2012 [facility] [place] [facility] [address] [id number] [place] [address] 27 Jul, 2012 [facility] [place] [facility] [address] [id number] [place] [address]- [address] 26 Jul, 2012 [facility] [place] [facility] [address] [id number] [place] [address]646 25 Jul, 2012 [facility] [place] [facility] [address] [facility] [id number] [place] [address] 25 Jul, 2012 [facility] [place] [facility] [address] [id number] [place] [address]94 23 Jul, 2012 [facility] [place] [facility] [address] [id number] [place] [address] 20 Jul, 2012 [facility] [place] [facility] [address] [id number] [place] [address] 15 Jul, 2012 [facility] [place] [facility] [address] [id number] [place] [address]- [address] 14 Jul, 2012 [facility] [place] [facility] [address] [facility] [id number] [place] [address] 11 Jul, 2012 [facility] [place] [facility] [address] [id number] [place] [address] Jun, [facility] [place] [facility] [address] [id number] [place] [address]- [address] Jun, [facility] [place] [facility] [address] [id number] [place] [address] Jun, [facility] [place] [facility] [address] [id number] [place] [address]- [address] May, [facility] [place] [facility] [address] [id number] [place] [address] May, [facility] [place] [facility] [address] [address] [id number] [place] [address] Apr, [facility] [place] [facility] [address] [id number] [place] [address] Apr, [facility] [place] [facility] [address] [id number] [place] [address] Apr, [facility] [place] [facility] [address] [id number] [place] [address] Apr, [facility] [place] [facility] [address] [id number] [place] [address] Apr, [facility] [place] [facility] [address] [id number] [place] [address] Apr, [facility] [place] [facility] [address] [id number] [place] [address] Apr, [facility] [place] [facility] [address] [id number] [place] [address] Apr, [facility] [place] [facility] [address] [id number] [place] [address] Mar, [facility] [place] [facility] [address] [id number] [place] [address] Mar, [facility] [place] [facility] [address] [id number] [place] [address] Mar, [facility] [place] [facility] [address] [id number] [place] [address] Mar, [facility] [place] [facility] [address] [id number] [place] [address] Mar, [facility] [place] [facility] [address] [id number] [place] [address] Mar, [facility] [place] [facility] [address] [id number] [place] [address] Mar, [facility] [place] [facility] [address] [id number] [place] [address] Mar, [facility] [place] [facility] [address] [id number] [place] [address] Mar, [facility] [place] [facility] [address] [id number] [place] [address] Feb, [facility] [place] [facility] [address] [id number] [place] [address] Jan, [facility] [place] [facility] [address] [id number] [place] [address] Jan, [facility] [place] [facility] [address] [id number] [place] [address] Jan, [facility] [place] [facility] [address] [id number] [place] [address] Dec, [facility] [place] [facility] [address] [id number], [place] [address] Dec, [facility] [place] [facility] [address] [id number] [place] [address] Dec, [facility] [place] [facility] [address] [id number], [place] [address] Nov, [facility] [place] [facility] [address] [id number] [place] [address] October, [facility] [place] [facility] [address] [id number] [place] [address] October, [facility] [address] [id number] [place] [address] October, [facility] [place] [facility] [address] [id number] [place] [address] October, [facility] [place] [facility] [address] [id number] [place] [address] October, [facility] [place] [facility] [address] [id number] [place] [address] 30 Sep, 2011 [facility] [place] [facility] [address] [id number] [place] [address] Sep, [facility] [place] [facility] [address] [id number] [place] [address] Sep, [facility] [address] [id number] [place] [address] 1481 Sep, [facility] [place] [facility] [address] [id number] [place] [address] Sep, [facility] [place] [facility] [address] [id number] [place] [address] Sep, [facility] [place] [facility] [address] [id number] [place] [address] Sep, [facility] [place] [facility] [address] [id number] [place] [address] Aug, [facility] [place] [facility] [address] [id number] [place] [address]47 Aug, [facility] [place] [facility] [address] [id number] [place] [address] Aug, [facility] [place] [facility] [address] [id number] [place] [address] Aug, [facility] [place] [facility] [address] [id number] [place] [address] Aug, [facility] [place] [facility] [address] [id number] [place] [address] 19 Aug, 2011 [facility] [place] [facility] [address] [id number] [place] [address] 16 Aug, 2011 [facility] [place] [facility] [address] [id number] [place] [address] 15 Aug, 2011 [facility] [place] [facility] [address] [id number] [place] [address] 15 Aug, 2011 [facility] [place] [facility] [address] [id number] [place] [address] 14 Aug, 2011 [facility] [place] [facility] [address] [id number] [place] [address] 12 Aug, 2011 [facility] [place] [facility] [address] [facility] [id number] [place] [address] 08 Aug, 2011 [facility] [place] [facility] [address] [id number] [place] [address]7 15 Jul, 2011 [facility] [place] [facility] [address] [id number] [place] [address] 15 Jul, 2011 [facility] [place] [facility] [address] [facility] [id number] [place] [address] 14 Jul, 2011 [facility] [place] [facility] [address] [facility] [id number] [place] [address] 06 Jul, 2011 [facility] [place] [facility] [address] [id number] [place] [address] 02 Jul, 2011 [facility] [place] [facility] [address] [id number] [place] [address] Jun, [facility] [place] [facility] [address] [id number] [place] [address] Jun, [facility] [place] [facility] [address] [id number] [place] [address] Jun, [facility] [place] [facility] [address] [id number], [place] [address] 29 May, 2011 [facility] [place] [facility] [address] [id number] [place] [address] 21 May, 2011 [facility] [place] [facility] [address] [id number] [place] [address] 19 May, 2011 [facility] [place] [facility] [address] [id number] [place] [address] 8[address] 19 May, 2011 [facility] [place] [facility] [address] [id number] [place] [address] 1248 14 May, 2011 [facility] [place] [facility] [address] [id number] [place] [address]- 4569 16 Apr, 2011 [facility] [place] [facility] [address] [id number] [place] [address] 65[address] 16 Apr, 2011 [facility] [place] [facility] [address] [facility] [id number], [place] [address] 15 Apr, 2011 [facility] [place] [facility] [address] [id number] [place] [address] 1271 14 Apr, 2011 [facility] [place] [facility] [address] [facility] [id number], [place] [address] 25 Mar, 2011 [facility] [place] [facility] [address] [facility] [id number], [place] [address] 24 Mar, 2011 [facility] [place] [facility] [address] [id number], [place] [address] 8[address] Mar, [facility] [place] [facility] [address] [id number], [place] [address]53 19 Mar, 2011 [facility] [place] [facility] [address] [id number], [place] [address]- 2424 17 Mar, 2011 [facility] [place] [facility] [address] [facility] [id number], [place] [address] 17 Mar, 2011 [facility] [place] [facility] [address] [facility] [id number], [place] [address] 16 Feb, 2011 [facility] [place] [facility] [address] [id number], [place] [address] 10 Nov, 2010 [facility] [address] [id number], [place] [address] 17 Aug, 2010 [facility] [address] [id number], [place] [address] Apr, [facility] [id number], [place] [address] Mar, [facility] [address], [place] [address] Apr, [facility] [address], [place] [address] Apr, [facility] [address], [place] [address] Sep, [facility] [address] [id number], [place] [address] Mar, IMMUNIZATIONS No Known Immunizations SOCIAL HISTORY Never Assessed REASON FOR VISIT Repository PLAN OF CARE VITAL SIGNS MEDICATIONS Medication Instructions Dosage Frequency Start Date End Date Duration Status Crestor 10 mg Orally Once a day 1 tablet 24h 16 Feb, 2014 90 days Active Micardis 20 mg Orally Once a day 1 tablet by Oral route 1 time per day 24h 15 Jun, 2014 90 days Active Propranolol HCl 40 mg Orally Twice a day 1 tablet 12h October, 30 days Active RESULTS No Results PROCEDURES No [...]
--- OUTSIDE RECORDS SUMMARY | 2018-06-19 13:32 | XMS REPORT ---
Author Author ARISTEO ARAYA Organization [facility] Address [address] [place] [address] Care Team Providers Care Outsole Caser Name Role Phone ARISTEO ARAYA Unavailable PROBLEMS Type Condition ICD9-CM Code [id number] Code Onset Dates Condition Status SNOMED Code Problem Fibromyalgia M79.7 Active 341108656 Problem Bronchitis J40 Active 33658268 Problem Other chronic pain G89.29 Active 67572875 Problem Migraine without aura and without status migrainosus, not intractable G43.009 Active 539260447 Problem Sacral pain M53.3 Active 70822911 Problem Other chronic gastritis without hemorrhage K29.50 Active 1254026 Problem Non morbid obesity due to excess calories E66.09 Active 010552701 Problem Hypertension, benign I10 Active 35024568 Problem Unsteady gait R26.81 Active 18011926 Problem Eosinophilic colitis K52.82 Active 32449324 ALLERGIES Substance Reaction Event Type Date Status Singulair Unknown Drug Allergy October, Active Lisinopril Unknown Drug Allergy October, Active metals Unknown Non Drug Allergy October, Active SOCIAL HISTORY Never Assessed PLAN OF CARE Activity Details Follow Up 4 Weeks Reason:htn VITAL SIGNS Height 63 in 2016-10-16 Weight 218.8 lbs 2016-10-16 Temperature 98.9 degrees Fahrenheit 2016-10-16 Heart Rate 110 bpm 2016-10-16 Respiratory Rate 18 2016-10-16 BMI 38.75 kg/m2 2016-10-16 Blood pressure systolic 152 mmHg 2016-10-16 Blood pressure diastolic 112 mmHg 2016-10-16 MEDICATIONS Medication Instructions Dosage Frequency Start Date End Date Duration Status Lyrica 100 MG Orally 3 times a day 1 capsule by Oral route 3 times per day for fibromyalgia (729.1) 8h Mar, 30 days Active Diclofenac Sodium 75 MG Orally Twice a day, voucher 1st fill 1 tablet with food or milk October, Mar, 30 day(s) Active Topamax 50 MG Orally Twice a day, voucher 1 tablet Aug, 30 day(s) Active Cymbalta 60 MG Orally Once a day 1 capsule 24h Active Crestor 10 mg Orally Once a day 1 tablet 24h 16 Feb, 2014 90 days Active Glucocard Expression Monitor w/Device as directed Aug, Active Metformin HCl 1000 MG Orally Twice a day 1 tablet with meals 12h 10 Nov, 2014 30 day(s) Active Famotidine 20 mg Orally Twice a day 1 tablet 12h Sep, 30 day(s ) Active Guaifenesin 200 MG Orally every 4 hrs 1 tablet as needed 4h Aug, Active Sumatriptan Succinate 100 mg Orally Once a day,voucher 1 tablet as needed Aug, Active Proventil HFA 108 (90 Base) MCG/ACT Inhalation every 4 hrs 2 puffs as needed 4h Aug, Active Propranolol HCl 40 mg Orally Twice a day 1 tablet 12h October, 30 day(s) Active Seroquel XR 150 MG Orally Once a day 1 tablet in the evening 24h Active Albuterol Sulfate (2.5 MG/3ML) 0.083% Inhalation Three times a day 3 ml 8h Aug, Active Micardis 20 mg 1 tablet by Oral route 1 time per day Jun, Active Glucocard Expression Test - test blood sugar Aug, Active Zofran ODT 4 MG Orally 3 times a day 1 tablet on the tongue and allow to dissolve 8h Sep, Active PredniSONE 20 mg Orally Once a day, voucher 2 tablets October, October, 05 days Active Mirtazapine 15 MG Orally Once a day 1 tablet at bedtime 24h Active Walker [place] [employer] - with bench seat. DX: fibromyalgia, [...]
--- OUTSIDE RECORDS SUMMARY | 2018-06-19 13:32 | XMS REPORT ---
Author Author ARISTEO ARAYA Organization [facility] Address [address] [place] [address] Care Team Providers Care Stabilizer Operator Name Role Phone ARISTEO ARAYA Unavailable PROBLEMS Type Condition ICD9-CM Code [id number] Code Onset Dates Condition Status SNOMED Code Problem Migraine without aura and without status migrainosus, not intractable G43.009 Active 502324838 Problem Other chronic pain G89.29 Active 02918095 Problem Fibromyalgia M79.7 Active 725268043 Problem Other chronic gastritis without hemorrhage K29.50 Active 0874143 Problem Unsteady gait R26.81 Active 99175805 Problem Hypertension, benign I10 Active 27660870 Problem Bronchitis J40 Active 69298558 Problem Eosinophilic colitis K52.82 Active 48946378 Problem Non morbid obesity due to excess calories E66.09 Active 941980925 ALLERGIES Substance Reaction Event Type Date Status Singulair Unknown Drug Allergy Jul, Active Lisinopril Unknown Drug Allergy Jul, Active metals Unknown Non Drug Allergy Jul, Active SOCIAL HISTORY Never Assessed PLAN OF CARE VITAL SIGNS Height 63 in 2016-07-17 Weight 199 lbs 2016-07-17 Temperature 98.6 degrees Fahrenheit 2016-07-17 Heart Rate 86 bpm 2016-07-17 Respiratory Rate 18 2016-07-17 BMI 35.25 kg/m2 2016-07-17 Blood pressure systolic 130 mmHg 2016-07-17 Blood pressure diastolic 90 mmHg 2016-07-17 MEDICATIONS Medication Instructions Dosage Frequency Start Date End Date Duration Status Dustin 5-325 MG Orally every 6 hrs 1 tablet as needed 6h October, Active Advair Diskus 250-50 mcg/dose 1 puffs by Inhalation route 2 times per day Feb, 90 days Active Walker [place] [employer] - with bench seat. DX: fibromyalgia, unsteady gait as directed Jan, Active Promethazine HCl 25 MG Orally 3 times a day. voucher 1 tablet as needed Jul, Active Crestor 10 mg Orally Once a day 1 tablet 24h 16 Feb, 2014 90 days Active Nexium 40 mg Orally Once a day 1 capsule 24h 10 Apr, 2016 90 days Active Neurontin 300 MG Orally Three times a day, voucher 1st fill only as directed Jun, Active Metformin HCl 1000 MG Orally Twice a day 1 tablet with meals 12h 10 Nov, 2014 30 day(s) Active Lyrica 100 MG Orally 3 times a day 1 capsule by Oral route 3 times per day for fibromyalgia (729.1) 8h Mar, 30 days Active Cymbalta 60 MG Orally Once a day 1 capsule 24h Active Chlorzoxazone 500 MG Orally 2 times a day 1 tablet 12h 20 Nov, 2015 Active Micardis 20 mg 1 tablet by Oral route 1 time per day Jun, Active Fetzima 80 MG take 1 capsules by Oral route at approximately the same time each day 1 time per day Jul, Active Abilify 2 MG Orally Once a day 1 tablet 24h Active Pantoprazole Sodium 40 mg Orally Once a day 1 tablet 24h Apr, 90 days Active Diclofenac Sodium 75 MG Orally Twice a day, voucher 1st fill 1 tablet with food or milk Apr, Sep, 30 day(s) Active RESULTS No Results PROCEDURES Procedure Date Ordered Result Body Site TORADOL (IM) 60 MG/2ML (UP TO 15 MG) Jul 17, 2016 PHENERGAN (IM) 25 MG (25 MG/ML) Jul 17, 2016 THER/PROPH/DIAG INJ, SC/IM Jul 17, 2016 IMMUNIZATIONS Vaccine Route Administration Date Status PHENERGAN (IM) 25 MG (25 MG/ML) IM Intramuscular Jul 17, 2016 Administered TORADOL (IM) 60 MG/2ML (UP TO 15 MG) Unknown Jul 17, 2016 Administered MEDICAL (GENERAL) HISTORY Type Description Date Medical [...]
--- OUTSIDE RECORDS SUMMARY | 2018-06-19 13:32 | XMS REPORT ---
Author Author ARISTEO ARAYA Organization [facility] Address [address] [place] [address] Care Team Providers Care Risk Control Analyst Name Role Phone ARISTEO ARAYA Unavailable PROBLEMS Type Condition ICD9-CM Code [id number] Code Onset Dates Condition Status SNOMED Code Problem Other chronic pain G89.29 Active 89236883 Problem Hypertension, benign I10 Active 79499186 Problem Bronchitis J40 Active 28854262 Problem Migraine without aura and without status migrainosus, not intractable G43.009 Active 230500461 Problem Fibromyalgia M79.7 Active 559813101 Problem Sacral pain M53.3 Active 93260659 Problem Non morbid obesity E66.9 Active 159810080 Problem Eosinophilic colitis K52.82 Active 41737473 Problem Non morbid obesity due to excess calories E66.09 Active 616140401 Problem Other chronic gastritis without hemorrhage K29.50 Active 4829378 Problem Unsteady gait R26.81 Active 49077781 ALLERGIES No Information SOCIAL HISTORY Never Assessed PLAN OF CARE VITAL SIGNS MEDICATIONS No [...]
--- OUTSIDE RECORDS SUMMARY | 2018-06-19 13:33 | XMS REPORT ---
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 Phone ARISTEO ARAYA Unavailable PROBLEMS Type Condition ICD9-CM Code KMH77-IY Code Onset Dates Condition Status SNOMED Code Problem Hypertension, benign I10 Active 59481178 Problem Eosinophilic colitis K52.82 Active 25810049 Problem Non morbid obesity due to excess calories E66.09 Active 377774344 Problem Migraine without aura and without status migrainosus, not intractable G43.009 Active 977737506 Problem Fibromyalgia M79.7 Active 343003531 Problem Other chronic pain G89.29 Active 16904716 Problem Bronchitis J40 Active 21820094 Problem Paresthesias in left hand R20.2 Active 490834118 Problem GERD with esophagitis K21.0 Active 783106317 Problem Other chronic gastritis without hemorrhage K29.50 Active 2173935 Problem Unsteady gait R26.81 Active 94571385 Problem Sacral pain M53.3 Active 43968104 Problem Non morbid obesity E66.9 Active 306373127 ALLERGIES Substance Reaction Event Type Date Status Singulair Unknown Drug Allergy Feb, Active Lisinopril Unknown Drug Allergy Feb, Active metals Unknown Non Drug Allergy Feb, Active ENCOUNTERS Encounter Location Date Diagnosis [facility] [place] [id number] [place] [address] 52379- 0703 Sep, Fibromyalgia M79.7 and Hypertension, benign I10 [facility] [place] [id number] [place] [address] 85262- 7604 Aug, [facility] [place] [id number] [place] [address] 69177- 0029 Aug, Fibromyalgia M79.7 ; Frequent headaches R51 and Non morbid obesity due to excess calories E66.09 [facility] [place] [address] 25829- 6848 Jul, [place] [address] 32875- 2848 Jul, Fibromyalgia M79.7 [place] [address] 76853- 8613 Jul, Viral gastroenteritis A08.4 and Paresthesias in left hand R20.2 [place] [address] 79416- 6955 Jun, Non morbid obesity due to excess calories E66.09 [place] [address] 48431- 7145 Jun, [place] [address] 79511- 8397 Jun, Fibromyalgia M79.7 [place] [address] 72029- 9398 May, Non morbid obesity due to excess calories E66.09 and Hypertension, benign I10 [place] [address] 73325- 3000 May, GERD with esophagitis K21.0 [place] [address] 65584- 7788 Apr, BMI 40.0-44.9, adult Z68.41 and Non morbid obesity E66.9 [place] [address] 16098- 9323 Mar, Unsteady gait R26.81 [place] [address] 80374- 2313 Mar, Unsteady gait R26.81 ; Sacral pain M53.3 and Fibromyalgia M79.7 [place] [address] 93981- 6264 Mar, Non morbid obesity due to excess calories E66.09 [place] [id number] [place] [address] 76170- 8889 28 Feb, 2017 Abdominal pain, generalized R10.84 [place] [address] 87746- 8555 18 Feb, 2017 Other chronic gastritis without hemorrhage K29.50 and H. pylori infection A04.8 [place] [address] 49889- 4346 07 Feb, 2017 Back pain 724.5 ; Pain in left shoulder M25.512 ; Fibromyalgia M79.7 and Non morbid obesity due to excess calories E66.09 [place] [address] 12537- 6404 07 Feb, 2017 BMI 40.0-44.9, adult Z68.[address] 82541- 8710 14 Jan, 2017 Dysuria R30.0 and Acute cystitis with hematuria N30.01 [place] [address] 27152- 2076 10 Jan, 2017 Dysuria R30.0 [place] [address] 49186- 6395 Dec, Fibromyalgia M79.7 [place] [address] 14148- 6604 Dec, Screening for diabetes mellitus Z13.1 and Fibromyalgia M79.7 [place] [id number] [place] [address] 53340- 4496 Dec, Fibromyalgia M79.7 [place] [address] 15157- 1669 Dec, [place] [id number] [place] [address] 93949- 1342 Dec, Fibromyalgia M79.7 [place] [address] 85624- 5377 Nov, Foreign body in foot, left, initial encounter S90.852A [place] [id number] [place] [address] 69076- 5939 Nov, Viral gastroenteritis A08.4 [place] [address] 17856- 9651 Nov, Fall, initial encounter W19.XXXA ; Post-traumatic headache, unspecified, not intractable G44.309 ; Dizziness R42 ; Unsteady gait R26.81 ; Sacral pain M53.3 and Non morbid obesity due to excess calories E66.09 [place] [address] 28877- 0690 Nov, [place] [address] 04618- 4160 Nov, [place] [address] 52076- 6871 October, Non morbid obesity due to excess calories E66.09 and Hypertension, benign I10 [place] [address] 96213- 6674 October, Fibromyalgia M79.7 [place] [address] 10600- 0694 Sep, [facility] [place] [address] 93242- 7250 Sep, [place] [address] 46086- 5364 Sep, Eosinophilic colitis K52.82 [facility] [place] [address] 16429- 6015 Aug, Bronchitis J40 [facility] [place] [address] 82196- 7933 Aug, [facility] [place] [address] 52117- 9599 09 Mar, 2017 Pain in left shoulder M25.512 ; Bronchitis J40 ; Acute midline back pain, unspecified location M54.9 ; Migraine without aura and without status migrainosus, not intractable G43.009 ; Fibromyalgia M79.7 and Pain of upper abdomen R10.10 [facility] [place] [id number] [place] [address] 59539- 9100 Aug, [place] [id number] [place] [address] 20454- 2121 Aug, [facility] [place] [id number] [place] [address] 33214- 4915 Jul, Other viral agents as the cause of diseases classified elsewhere B97.89 and Acute upper respiratory infection, unspecified J06.9 [place] [id number] [place] [address] 32291- 0351 Jun, [facility] [id number] [place] [address] 27748 -2358 Jun, [facility] [place] [id number] [place] [address] 93602- 8520 May, Abscess L02.91 [place] [address] 27362- 9662 May, Acute midline low back pain without sciatica M54.5 [facility] [id number] [place] [address] 16275 -3579 May, [facility] [place] [id number] [place] [address] 56523- 0828 Apr, [facility] [place] [id number] [place] [address] 70616- 0423 Apr, Other chronic pain G89.29 ; Pain in right shoulder M25.511 and Pain in left shoulder M25.512 [place] [id number] [place] [address] 56963- 4061 Apr, [place] [address] 49942- 3878 Apr, [facility] [place] [address] [place] [address] 39097- 9652 10 Apr, 2016 Fibromyalgia M79.7 ; Other chronic pain G89.29 and Pain in left shoulder M25.512 [facility] [place] [address] [place] [address] 28650- 5704 04 Apr, 2016 Bronchitis J40 [facility] [place] [id number] [place] [address] 14899- 5893 27 Mar, 2016 [facility] [id number] [id number] Mar, [facility] [place] [id number] [place] [address] 29171- 4370 29 Feb, 2016 [facility] [place] [id number] [place] [address] 07961- 4415 26 Feb, 2016 [facility] [place] [id number] [place] [address] 77906- 0158 23 Feb, 2016 [facility] [place] [id number] [place] [address] 47372- 8982 22 Feb, 2016 [facility] [place] [id number] [place] [address] 99063- 0029 20 Feb, 2016 [facility] [place] [address] [place] [address] 36358- 8928 19 Feb, 2016 [facility] [place] [id number] [place] [address] 65381- 4220 19 Feb, 2015 Dysuria R30.0 [facility] [place] [address] [place] [address] 83887- 7965 19 Feb, 2015 Dysuria R30.0 [facility] [place] [id number] [place] [address] 05005- 4413 16 Feb, 2015 [facility] [place] [address] [place] [address] 81392- 3318 15 Feb, 2016 Migraine, unspecified, not intractable, without status migrainosus G43.909 and Fibromyalgia M79.7 [facility] [place] [id number] [place] [address] 94677- 4060 Feb, Migraine without aura and without status migrainosus, not intractable G43.009 [facility] [place] [id number] [place] [address] 98198- 0286 Jan, [facility] [place] [address] 36053- 5454 Jan, [facility] [place] [id number] [place] [address] 87253- 8895 Jan, [place] [address] 56824- 0131 Jan, [place] [id number] [place] [address] 91631- 3748 Jan, Unsteady gait R26.81 ; Fibromyalgia M79.7 and Family history of rheumatoid arthritis Z82.61 [place] [id number] [place] [address] 88829- 2834 Dec, [place] [address] 41561- 4149 Dec, [facility] [place] [id number] [place] [address] 35066- 1153 Nov, Pain in left shoulder M25.512 [facility] [place] [id number] [place] [address] 17755- 1202 October, Viral gastroenteritis A08.4 [facility] [id number] [place] [address] 44294 -7320 October, Pain of upper abdomen R10.10 [facility] [place] [id number] [place] [address] 01667- 2347 October, Acute midline back pain, unspecified location M54.9 [facility] [place] [id number] [place] [address] 55292- 2005 Aug, Elbow pain, right M25.521 [facility] [place] [id number] [place] [address] 24174- 3970 Aug, Elbow pain, right M25.521 [facility] [place] [id number] [place] [address] 62865- 9337 Aug, Pain of right upper extremity M79.601 [facility] [place] [address] 81191- 5093 Jun, Lumbar neuritis M54.16 [facility] [place] [id number] [place] [address] 88609- 2598 May, [facility] [place] [address] 46046- 4137 Apr, Non morbid obesity due to excess calories E66.09 [facility] [place] [address] 70294- 2452 Apr, Non morbid obesity due to excess calories E66.09 and Thoracic neuritis M54.14 [facility] [place] [id number] [place] [address] 32865- 0369 Apr, Elbow pain, right M25.521 [facility] [place] [id number] [place] [address] 49790- 9264 Mar, Right elbow pain M25.521 [facility] [place] [id number] [place] [address] 42969- 0217 Mar, [facility] [place] [id number] [place] [address] 15801- 4165 30 Feb, 2015 Urinary tract infection, site not specified 599.0 [facility] [place] [id number] [place] [address] 24916- 3227 14 Feb, 2015 [facility] [place] [id number] [place] [address] 95268- 1328 Jan, Spider bite 989.5 [facility] [place] [address] [place] [address]- 7297 Jan, Spider bite 989.5 [facility] [place] [address] 05269- 0980 Jan, Spider bite 989.5 [facility] [place] [address] 60480- 0411 10 Nov, 2014 Back pain 724.5 and Diabetes 250.00 [facility] [place] [address] 97499- 7110 Nov, Back pain 724.5 and Muscle spasm of back 724.8 [facility] [place] [address] 83022- 9651 Nov, Alternating constipation and diarrhea 787.99 [facility] [place] [address] 91987- 1176 October, Back pain 724.5 and Hip pain 719.45 [facility] [place] [address] 86297- 9494 Sep, [facility] [place] [address] 75046- 6771 Sep, [facility] [place] [id number] [place] [address] 17851- 4875 Aug, [facility] [place] [id number] [place] [address] 68971- 7466 Aug, [facility] [place] [id number] [place] [address] 66198- 2831 Aug, [facility] [place] [address] 77845- 3291 Aug, [facility] [place] [id number] [place] [address] 41882- 2965 Aug, [facility] [place] [id number] [place] [address] 43470- 2549 Aug, [facility] [place] [address] [id number] [place] [address]- 9065 Jul, [facility] [place] [facility] [address] [id number] [place] [address]- 2956 Jul, [facility] [place] [facility] [address] [id number] [place] [address]- 0966 Jun, [facility] [place] [facility] [address] [id number] [place] [address]- 5995 Jun, [facility] [place] [facility] [address] [id number] [place] [address]- 8979 Jun, [facility] [place] [facility] [address] [id number] [place] [address]- 8116 Jun, [facility] [place] [facility] [address] [id number] [place] [address]- 5300 Jun, [facility] [place] [facility] [address] [id number] [place] [address]- 2690 Jun, [facility] [place] [facility] [address] [id number] [place] [address]- 7887 Jun, [facility] [place] [facility] [address] [id number] [place] [address]- 6043 May, [facility] [place] [facility] [address] [id number] [place] [address]- 4626 30 May, 2014 [facility] [place] [facility] [address] [id number] [place] [address]- 9720 May, [facility] [place] [facility] [address] [id number] [place] [address]- 2042 17 May, 2014 [facility] [place] [facility] [address] [id number] [place] [address]- 4925 Apr, [facility] [place] [facility] [address] [id number] [place] [address]- 7707 13 Apr, 2014 [facility] [place] [facility] [address] [id number] [place] [address]- 6275 Mar, [facility] [place] [facility] [address] [id number] [place] [address]- 0655 Mar, [facility] [place] [facility] [address] [id number] [place] [address]- 6363 Mar, [facility] [place] [facility] [address] [id number] [place] 9720 Mar, [facility] [place] [facility] [address] [id number] [place] [address]- 3237 Mar, [facility] [place] [facility] [address] [id number] [place] [address]- 4819 Mar, [facility] [place] [facility] [address] [id number] [place] [address]- 4885 Mar, [facility] [place] [facility] [address] [id number] [place] [address]- 4751 Mar, [facility] [place] [facility] [address] [id number] [place] [address]- 1024 Mar, [facility] [place] [facility] [address] [id number] [place] [address]- 4722 Mar, [facility] [place] [facility] [address] [id number] [place] [address]- 4738 Feb, [facility] [place] [facility] [address] [id number] [address]- 1700 Feb, [facility] [place] [facility] [address] [id number] [place] [address]- 6068 Jan, [facility] [place] [facility] [address] [id number] [place] [address]- 4790 Jan, [facility] [place] [facility] [address] [id number] [place] [address]- 3230 Jan, [facility] [place] [facility] [address] [id number] [place] [address]- 9872 Jan, [facility] [place] [facility] [address] [id number] [place] [address]- 0140 Jan, [facility] [place] [facility] [address] [id number] [place] [address]- 4476 Jan, [facility] [place] [facility] [address] [id number] [place] [address]- 6825 Jan, [facility] [place] [facility] [address] [id number] [place] [address]- 2830 Jan, [facility] [place] [facility] [address] [id number] [place] [address]- 8535 Jan, [facility] [place] [facility] [address] [id number] [place] [address]- 0835 Jan, [facility] [place] [facility] [address] [id number] [place] [address]- 8029 Dec, [facility] [place] [facility] [address] [id number] [place] [address]- 4230 Dec, [facility] [place] [facility] [address] [id number] [place] [address]- 5868 Dec, [facility] [place] [facility] [address] [id number] [place] [address]- 2933 Dec, [facility] [place] [facility] [address] [id number] [place] [address]- 4910 Nov, [facility] [place] [facility] [address] [id number] [place] [address]- 9724 Nov, [facility] [place] [facility] [address] [id number] [place] [address]- 1102 Nov, [facility] [place] [facility] [address] [id number] [place] [address]- 9750 Nov, [facility] [place] [facility] [address] [id number] [place] [address]- 4207 October, [facility] [place] [facility] [address] [id number] [place] [address]- 2001 October, [facility] [place] [facility] [address] [id number] [place] [address]- 1576 Sep, [facility] [place] [facility] [address] [id number] [place] [address]- 5555 Sep, [facility] [place] [facility] [address] [id number] [place] [address]- 7734 Sep, [facility] [place] [facility] [address] [id number] [place] [address]- 0064 Sep, [facility] [place] [facility] [address] [id number] [place] [address]- 4183 Sep, [facility] [place] [facility] [address] [id number] [place] [address]- 3886 Sep, [facility] [place] [facility] [address] [id number] [place] [address]- 4995 Sep, [facility] [place] [facility] [address] [id number] [place] [address]- 0162 Sep, [facility] [place] [facility] [address] [id number] [place] [address]- 6985 Sep, [facility] [place] [facility] [address] [id number] [place] [address] Sep, [facility] [place] [facility] [address] [id number] [place] [address] Jul, [facility] [place] [facility] [address] [id number] [place] [address] Jul, [facility] [place] [facility] [address] [id number] [place] [address] Jul, [facility] [place] [facility] [address] [id number] [place] [address] Jul, [facility] [place] [facility] [address] [id number] [place] [address] Jun, [facility] [place] [facility] [address] [id number] [place] [address] Jun, [facility] [address] [id number] [place] [address] Jun, [facility] [place] [facility] [address] [id number] [place] [address] 15 Jun, 2013 [facility] [place] [facility] [address] [id number] [place] [address] Jun, [facility] [place] [facility] [address] [id number] [place] [address] Jun, [facility] [place] [facility] [address] [id number] [place] [address] Apr, [facility] [place] [facility] [address] [id number] [place] [address] Apr, [facility] [place] [facility] [address] [id number] [place] [address] Apr, [facility] [place] [facility] [address] [id number] [place] [address] Apr, [facility] [place] [facility] [address] [id number] [place] [address] Apr, [facility] [place] [facility] [address] [id number] [place] [address] Apr, [facility] [place] [facility] [address] [id number] [place] [address] Apr, [facility] [place] [facility] [address] [id number] [address] Apr, [facility] [place] [facility] [address] [id number] [place] [address] Mar, [facility] [place] [facility] [address] [id number] [place] [address] Mar, [facility] [place] [facility] [address] [id number] [address] Feb, [facility] [place] [facility] [address] [id number] [place] [address] Feb, [facility] [place] [facility] [address] [id number] [place] [address] Dec, [facility] [place] [facility] [address] [id number] [place] [address] Dec, [facility] [place] [facility] [address] [id number] [place] [address] Dec, [facility] [place] [facility] [address] [id number] [place] [address] Dec, [facility] [place] [facility] [address] [id number] [place] [address] Dec, [facility] [place] [facility] [address] [id number] [place] [address] Dec, [facility] [place] [facility] [address] [id number] [place] [address] Dec, [facility] [place] [facility] [address] [id number] [place] [address] Nov, [facility] [place] [facility] [address] [id number] [place] [address] Nov, [facility] [place] [facility] [address] [id number] [place] [address] Nov, [facility] [place] [facility] [address] [id number] [place] [address] Nov, [facility] [place] [facility] [address] [address] [id number] [place] [address] October, [facility] [place] [facility] [address] [id number] [place] [address] October, [facility] [place] [facility] [address] [id number] [place] [address] October, [facility] [place] [facility] [address] [id number] [place] [address] October, [facility] [address] [id number] [place] [address] Sep, [facility] [place] [facility] [address] [facility] [id number] [place] [address] 30 Aug, 2012 [facility] [address] [facility] [id number] [place] [address] Aug, [facility] [place] [facility] [address] [facility] [id number] [place] [address] Aug, [facility] [address] [facility] [id number] [place] [address] Aug, [facility] [address] [facility] [id number] [place] [address] Aug, [facility] [address] [facility] [id number] [place] [address] 27 Jul, 2012 [facility] [place] [facility] [address] [facility] [id number] [place] [address] 27 Jul, 2012 [facility] [address] [id number] [place] [address]69 26 Jul, 2012 [facility] [place] [facility] [address] [id number] [place] [address] 7[address] Jul, [facility] [place] [facility] [address] [id number] [address] Jul, [facility] [place] [facility] [address] [facility] [id number] [address] 23 Jul, 2012 [facility] [place] [facility] [address] [facility] [id number] [place] [address] 20 Jul, 2012 [facility] [place] [facility] [address] [facility] [id number] [place] [address] 15 Jul, 2012 [facility] [place] [facility] [address] [id number] [address] 8985 14 Jul, 2012 [facility] [place] [facility] [address] [id number] [place] [address] Jul, [facility] [place] [facility] [address] [id number] [place] [address] Jun, [facility] [place] [facility] [address] [id number] [place] [address] 90[address] Jun, [facility] [place] [facility] [address] [id number] [place] [address] 98[address] Jun, [facility] [place] [facility] [address] [id number] [place] [address] May, [facility] [place] [facility] [address] [id number] [place] [address] May, [facility] [place] [facility] [address] [id number] [place] [address] Apr, [facility] [place] [facility] [address] [id number] [place] [address] 8976 Apr, [facility] [place] [facility] [address] [id number] [place] [address] Apr, [facility] [place] [facility] [address] [id number] [place] [address] 1440 Apr, [facility] [place] [facility] [address] [id number] [place] [address] 9512 Apr, [facility] [place] [facility] [address] [id number] [place] [address] Apr, [facility] [place] [facility] [address] [id number] [place] [address] 450[address] Apr, [facility] [place] [facility] [address] [id number] [place] [address] 2706 Apr, [facility] [place] [facility] [address] [id number] [place] [address] 98[address] Mar, [facility] [place] [facility] [address] [id number] [place] [address] Mar, [facility] [place] [facility] [address] [id number] [place] [address] Mar, [facility] [place] [facility] [address] [id number] [place] [address] 8400 Mar, [facility] [place] [facility] [address] [id number] [place] [address] 2613 Mar, [facility] [place] [facility] [address] [id number] [place] [address] 2927 Mar, [facility] [place] [facility] [address] [id number] [place] [address]93 Mar, [facility] [place] [facility] [address] [id number] [place] [address] 2280 Mar, [facility] [place] [facility] [address] [id number] [place] [address] 8[address] Mar, [facility] [place] [facility] [address] [id number] [place] [address] Feb, [facility] [place] [facility] [address] [id number] [place] [address] Jan, [facility] [place] [facility] [address] [id number] [place] [address] 25[address] Jan, [facility] [place] [facility] [address] [id number] [place] [address]284 Jan, [facility] [place] [facility] [address] [id number] [address] Dec, [facility] [place] [facility] [address] [id number] [place] [address]67 Dec, [facility] [place] [facility] [address] [id number] [place] [address] 3393 Dec, [facility] [place] [facility] [address] [id number] [place] [address] 4058 Nov, [facility] [place] [facility] [address] [id number] [place] [address] 6302 October, [facility] [address] [id number] [place] [address] October, [facility] [address] [id number] [place] [address] 9066 October, [facility] [address] [id number] [place] [address] 0367 October, [facility] [address] [id number] [place] [address] 5[address] October, [facility] [address] [id number] [place] [address] 4283 30 Sep, 2011 [facility] [address] [id number] [place] [address] 9789 Sep, [facility] [address] [id number] [place] [address] 9201 Sep, [facility] [address] [id number] [place] [address] 7201 Sep, [facility] [address] [id number] [place] [address] 5427 Sep, [facility] [address] [id number] [place] [address]- 5[address] Sep, [facility] [address] [id number] [place] [address] 7534 Sep, [facility] [address] [id number] [place] [address] 0373 Aug, [facility] [address] [id number] [place] [address] 3928 Aug, [facility] [address] [id number] [place] [address]- 5282 Aug, [facility] [address] [id number] [place] [address]- 0193 Aug, [facility] [place] [facility] [address] [id number] [place] [address]- 4799 20 Aug, 2011 [facility] [place] [facility] [address] [id number] [place] [address]- 1836 19 Aug, 2011 [facility] [place] [facility] [address] [id number] [place] [address]- 0856 16 Aug, 2011 [facility] [place] [facility] [address] [id number] [place] [address]- 7616 15 Aug, 2011 [facility] [place] [facility] [address] [id number] [place] [address]- 4806 15 Aug, 2011 [facility] [place] [facility] [address] [id number] [place] [address]- 5626 14 Aug, 2011 [facility] [place] [facility] [address] [id number] [place] [address]- 8433 12 Aug, 2011 [facility] [place] [facility] [address] [id number] [place] [address]- 6686 08 Aug, 2011 [facility] [place] [facility] [address] [id number] [place] [address]- 4997 15 Jul, 2011 [facility] [place] [facility] [address] [id number] [place] [address]- 6240 15 Jul, 2011 [facility] [place] [facility] [address] [id number] [place] [address]- 4461 14 Jul, 2011 [facility] [place] [facility] [address] [id number] [place] [address]- 7756 06 Jul, 2011 [facility] [place] [facility] [address] [id number] [place] [address]- 7846 02 Jul, 2011 [facility] [place] [facility] [address] [id number] [place] [address]- 7506 18 Jun, 2011 [facility] [place] [facility] [address] [id number] [place] [address]- 4396 04 Jun, 2011 [facility] [place] [facility] [address] [id number] [place] [address]- 1402 02 Jun, 2011 [facility] [place] [facility] [address] [id number] [place] [address]- 9960 29 May, 2011 [facility] [place] [facility] [address] [id number] [place] [address]- 9674 May, [facility] [place] [facility] [address] [id number] [place] [address]- 2669 May, [facility] [place] [facility] [address] [id number] [place] [address]- 1700 19 May, 2011 [facility] [place] [facility] [address] [id number] [place] [address]- 3476 14 May, 2011 [facility] [place] [facility] [address] [id number] [place] [address]- 3898 16 Apr, 2011 [facility] [place] [facility] [address] [id number] [place] [address]- 1883 16 Apr, 2011 [facility] [place] [facility] [address] [id number] [place] [address]- 0899 15 Apr, 2011 [facility] [place] [facility] [address] [id number] [place] [address]- 7131 14 Apr, 2011 [facility] [place] [facility] [address] [facility] [id number] [place] [address]- 6500 25 Mar, 2011 [facility] [place] [facility] [address] [id number] [place] [address]- 8657 24 Mar, 2011 [facility] [place] [facility] [address] [id number] [address]- 4744 19 Mar, 2011 [facility] [place] [facility] [address] [id number] [place] [address]- 0676 19 Mar, 2011 [facility] [place] [facility] [address] [id number] [place] [address]- 3072 17 Mar, 2011 [facility] [place] [facility] [address] [id number] [address]- 0363 Mar, [facility] [place] [address] [id number] [address] Feb, [facility] [place] [id number] [address] Nov, [facility] [place] [id number] [address]- 2546 Aug, [facility] [place] [id number] [place] [address]- [address]296 Apr, [facility] [place] [id number] [place] [address]- 4836 Mar, [facility] [place] [id number] [place] [address]- 9706 Apr, [facility] [place] [id number] [place] [address]- 2546 Apr, [facility] [place] [id number] [place] [address]- 5486 Sep, [facility] [place] [id number] [address] 2631 Mar, IMMUNIZATIONS Vaccine Route Administration Date Status PHENERGAN (IM) 25 MG (25 MG/ML) IM Intramuscular Feb 23, 2017 Administered SOCIAL HISTORY Never Assessed REASON FOR VISIT htn, feeling sick and nauseous with hot flashes for three weeks--Mónica Soto MA PLAN OF CARE VITAL SIGNS Height 63 in 2017-02-23 Weight 230.2 lbs 2017-02-23 Temperature 98.4 degrees Fahrenheit 2017-02-23 Heart Rate 78 bpm 2017-02-23 Respiratory Rate 20 2017-02-23 BMI 40.77 kg/m2 2017-02-23 Blood pressure systolic 134 mmHg 2017-02-23 Blood pressure diastolic 82 mmHg 2017-02-23 MEDICATIONS Medication Instructions Dosage Frequency Start Date End Date Duration Status Albuterol Sulfate (2.5 MG/3ML) 0.083% Inhalation Three times a day 3 ml 8h 27 Aug, 2016 Active Lyrica 150 MG Orally 3 times a day 1 capsule 8h Mar, 90 days Active Proventil HFA 108 (90 Base) MCG/ACT Inhalation every 4 hrs 2 puffs as needed 4h Aug, Active Walker [place] [employer] - with bench seat. DX: fibromyalgia, unsteady gait as directed Jan, Active Amoxicillin 500 mg Orally 2 times a day, voucher 2 capsules Feb, Mar, 14 days Active Seroquel XR 150 MG Orally Once a day 1 tablet in the evening 24h Active Metronidazole 500 mg Orally Twice a day, voucher 1 tablet Feb, Mar, 14 days Active Propranolol HCl 40 mg Orally Twice a day 1 tablet 12h October, 30 days Active Omeprazole 20 mg Orally Once a day, voucher 1st fill 1 capsule Feb, 30 day(s) Active Wheelchair 1 as directed Nov, Active Diclofenac Sodium 75 MG Orally Twice a day, voucher 1st fill 1 tablet with food or milk October, Mar, 30 day(s) Active Metformin HCl 1000 MG Orally Twice a day 1 tablet with meals 12h Nov, 30 day(s) Active Mirtazapine 15 MG Orally Once a day 1 tablet at bedtime 24h Active Glucocard Expression Monitor w/Device as directed Aug, Active Glucocard Expression Test - test blood sugar Aug, Active Crestor 10 mg Orally Once a day 1 tablet 24h 16 Feb, 2014 90 days Active Cymbalta 60 MG Orally Once a day 1 capsule 24h Active Micardis 20 mg Orally Once a day 1 tablet by Oral route 1 time per day 24h Jun, 90 days Active RESULTS No Results PROCEDURES Procedure Date Ordered Result Body Site IMMUNOASSAY,INFECTIOUS AGENT Feb 23, 2017 THER/PROPH/DIAG INJ, SC/IM Feb 23, 2017 PHENERGAN (IM) 25 MG (25 MG/ML) Feb 23, 2017 INSTRUCTIONS MEDICATIONS ADMINISTERED No Known Medications [...]
--- OUTSIDE RECORDS SUMMARY | 2018-06-19 13:33 | XMS REPORT ---
Author Author ARISTEO ARAYA Organization [facility] Address [address] [place] [address] Care Team Providers Care Social Research Assistant Name Role Phone ARISTEO ARAYA Unavailable PROBLEMS Type Condition ICD9-CM Code [id number] Code Onset Dates Condition Status SNOMED Code Problem Non morbid obesity due to excess calories E66.09 Active 228913049 Problem Unsteady gait R26.81 Active 32909683 Problem Eosinophilic colitis K52.82 Active 16633475 Problem Acute right-sided low back pain with right-sided sciatica M54.41 Active 587791095 Problem Paresthesias in left hand R20.2 Active 590327881 Problem Non morbid obesity E66.9 Active 694136262 Problem Other chronic gastritis without hemorrhage K29.50 Active 1459266 Problem GERD with esophagitis K21.0 Active 585760682 Problem Sacral pain M53.3 Active 49680560 Problem Fibromyalgia M79.7 Active 037616389 Problem Other chronic pain G89.29 Active 82003965 Problem Bronchitis J40 Active 05460961 Problem Migraine without aura and without status migrainosus, not intractable G43.009 Active 440943371 Problem Hypertension, benign I10 Active 97235713 ALLERGIES No Information ENCOUNTERS Encounter Location Date Diagnosis [facility] [place] [id number] [place] [address] 95874- 9038 Sep, Hypertension, benign I10 and Acute right-sided low back pain with right-sided sciatica M54.41 [facility] [id number] [place] [address] 39928- 4830 Sep, Fibromyalgia M79.7 and Hypertension, benign I10 [facility] [id number] [place] [address] 73615- 9033 Aug, [place] [address] 74193- 6603 Aug, Fibromyalgia M79.7 ; Frequent headaches R51 and Non morbid obesity due to excess calories E66.09 [facility] [address] 89887- 2167 Jul, [place] [address] 18993- 9327 Jul, Fibromyalgia M79.7 [facility] [address] 52728- 5623 Jul, Viral gastroenteritis A08.4 and Paresthesias in left hand R20.[address] 29095- 4745 Jun, Non morbid obesity due to excess calories E66.09 [facility] [address] 34351- 5198 Jun, [place] [address] 18216- 0988 Jun, Fibromyalgia M79.7 [facility] [address] 78751- 4449 May, Non morbid obesity due to excess calories E66.09 and Hypertension, benign I10 [facility] [address] 91398- 8522 May, GERD with esophagitis K21.0 [facility] [address] 84839- 5029 Apr, BMI 40.0-44.9, adult Z68.41 and Non morbid obesity E66.9 [facility] [address] 09421- 6935 Mar, Unsteady gait R26.81 [facility] [address] 43176- 3115 Mar, Unsteady gait R26.81 ; Sacral pain M53.3 and Fibromyalgia M79.7 [facility] [id number] [place] [address] 75153- 0850 05 Mar, 2017 Non morbid obesity due to excess calories E66.09 [facility] [place] [id number] [place] [address] 74812- 0286 28 Feb, 2017 Abdominal pain, generalized R10.84 [facility] [id number] [place] [address] 14344- 5610 18 Feb, 2017 Other chronic gastritis without hemorrhage K29.50 and H. pylori infection A04.8 [facility] [id number] [place] [address] 07346- 6534 07 Feb, 2017 Back pain 724.5 ; Pain in left shoulder M25.512 ; Fibromyalgia M79.7 and Non morbid obesity due to excess calories E66.09 [facility] [id number] [place] [address] 03278- 1219 07 Feb, 2017 BMI 40.0-44.9, adult Z68.41 [facility] [id number] [place] [address] 39570- 7116 Jan, Dysuria R30.0 and Acute cystitis with hematuria N30.01 [facility] [id number] [place] [address] 62379- 2938 10 Jan, 2017 Dysuria R30.0 [facility] [id number] [place] [address] 07101- 2207 Dec, Fibromyalgia M79.7 [facility] [id number] [place] [address] 11068- 3836 Dec, Screening for diabetes mellitus Z13.1 and Fibromyalgia M79.7 [facility] [id number] [place] [address] 26793- 7708 Dec, Fibromyalgia M79.7 [facility] [id number] [place] [address] 59774- 1460 Dec, [facility] [address] 91876- 8335 Dec, Fibromyalgia M79.7 [facility] [id number] [place] [address] 77958- 3929 Nov, Foreign body in foot, left, initial encounter S90.852A [place] [id number] [place] [address] 18666- 3682 Nov, Viral gastroenteritis A08.4 [facility] [address] 86158- 4234 Nov, Fall, initial encounter W19.XXXA ; Post-traumatic headache, unspecified, not intractable G44.309 ; Dizziness R42 ; Unsteady gait R26.81 ; Sacral pain M53.3 and Non morbid obesity due to excess calories E66.09 [facility] [address] 63029- 9672 Nov, [place] [address] 06140- 1114 Nov, [place] [address] 68629- 7698 October, Non morbid obesity due to excess calories E66.09 and Hypertension, benign I10 [facility] [id number] [place] [address] 05135- 8934 October, Fibromyalgia M79.7 [facility] [address] 38100- 6854 Sep, [place] [address] 85412- 3493 Sep, [place] [address] 65382- 0739 Sep, Eosinophilic colitis K52.82 [facility] [id number] [place] [address] 68931- 7795 Aug, Bronchitis J40 [place] [address] 92849- 1108 Aug, [facility] [address] [place] [address] 92472- 1368 Aug, Pain in left shoulder M25.512 ; Bronchitis J40 ; Acute midline back pain, unspecified location M54.9 ; Migraine without aura and without status migrainosus, not intractable G43.009 ; Fibromyalgia M79.7 and Pain of upper abdomen R10.10 [place] [address] 12815- 7915 Aug, [place] [id number] [place] [address] 94252- 8147 Aug, [place] [id number] [place] [address] 03817- 4482 Jul, Other viral agents as the cause of diseases classified elsewhere B97.89 and Acute upper respiratory infection, unspecified J06.9 [place] [id number] [place] [address] 30042- 0553 Jun, [facility] [id number] [place] [address] 56432 -3873 Jun, [facility] [id number] [place] [address] 20264- 1038 May, [address]02.91 [facility] [id number] [place] [address] 45372- 8631 May, Acute midline low back pain without sciatica M54.5 [facility] [id number] [place] [address] 30737 -8934 May, [place] [id number] [place] [address] 76504- 7841 Apr, [facility] [id number] [place] [address] 18543- 3695 Apr, Other chronic pain G89.29 ; Pain in right shoulder M25.511 and Pain in left shoulder M25.512 [place] [address] [place] [address]- 4849 16 Apr, 2016 [facility] [address] [place] [address] 14951- 0686 10 Apr, 2016 [facility] [id number] [place] [address] 52480- 5804 10 Apr, 2016 Fibromyalgia M79.7 ; Other chronic pain G89.29 and Pain in left shoulder M25.512 [facility] [address] [place] [address] 80465- 9952 04 Apr, 2016 Bronchitis J40 [facility] [address] [place] [address] 07202- 5985 27 Mar, 2016 [facility] [id number] [id number] Mar, [facility] [address] [place] [address] 27792- 6886 29 Feb, 2016 [facility] [place] [facility] [id number] [place] [address] 63054- 4985 26 Feb, 2015 [facility] [address] [place] [address] 48697- 1303 23 Feb, 2015 [facility] [address] [place] [address] 53872- 3540 22 Feb, 2015 [facility] [address] [address]- 5130 20 Feb, 2015 [facility] [place] [facility] [address] [place] [address] 83700- 5784 19 Feb, 2015 [facility] [place] [facility] [address] [address]- 9168 19 Feb, 2016 Dysuria R30.0 [facility] [address] [place] [address] 63105- 3354 19 Feb, 2016 Dysuria R30.0 [facility] [address] [address]- 3410 16 Feb, 2016 [facility] [place] [facility] [id number] [place] [address] 51246- 5798 15 Feb, 2016 Migraine, unspecified, not intractable, without status migrainosus G43.[address] [facility] [id number] [place] [address] 47783- 0345 Feb, Migraine without aura and without status migrainosus, not intractable G43.009 [facility] [id number] [place] [address] 71704- 7442 Jan, [facility] [address] 20624- 4892 Jan, [place] [id number] [place] [address] 24834- 8539 Jan, [facility] [address] 39611- 0553 Jan, [facility] [id number] [place] [address] 51928- 7406 Jan, Unsteady gait R26.81 ; Fibromyalgia M79.7 and Family history of rheumatoid arthritis Z82.61 [place] [id number] [place] [address] 70331- 6088 Dec, [facility] [id number] [place] [address] 92161- 7286 Dec, [facility] [id number] [place] [address] 97152- 0079 Nov, Pain in left shoulder M25.512 [facility] [id number] [place] [address] 21445- 8905 October, Viral gastroenteritis A08.4 [facility] [id number] [place] [address] 72174 -6470 October, Pain of upper abdomen R10.10 [facility] [id number] [place] [address] 19174- 2038 October, Acute midline back pain, unspecified location M54.9 [facility] [address] [address]- 5194 Aug, Elbow pain, right M25.521 [facility] [id number] [place] [address] 18176- 4813 Aug, Elbow pain, right M25.521 [facility] [id number] [place] [address] 08325- 8289 Aug, Pain of right upper extremity M79.601 [facility] [id number] [place] [address] 07934- 4119 Jun, Lumbar neuritis M54.16 [facility] [id number] [place] [address] 48531- 6044 May, [facility] [id number] [place] [address] 22486- 8670 Apr, Non morbid obesity due to excess calories E66.09 [facility] [id number] [place] [address] 21220- 4709 Apr, Non morbid obesity due to excess calories E66.09 and Thoracic neuritis M54.14 [facility] [address] [place] [address] 56396- 0012 Apr, Elbow pain, right M25.521 [facility] [address] [place] [address] 27730- 8403 Mar, Right elbow pain M25.521 [facility] [id number] [place] [address] 13433- 5474 Mar, [facility] [id number] [place] [address] 44045- 8209 30 Feb, 2015 Urinary tract infection, site not specified 599.0 [facility] [address] [place] [address] 12101- 3099 [address], [address] [facility] [id number] [place] [address] 04722- 8576 Jan, Spider bite 989.5 [facility] [address] 93950- 4287 Jan, Spider bite 989.5 [facility] [address] 10038- 4571 Jan, Spider bite 989.5 [facility] [address] 90725- 1404 Nov, Back pain 724.[address] [facility] [address] 21337- 4557 Nov, Back pain 724.5 and Muscle spasm of back 724.8 [facility] [address] 26837- 1150 Nov, Alternating constipation and diarrhea 787.99 [facility] [address] 13639- 2090 October, Back pain 724.5 and Hip pain 719.45 [facility] [address] 90936- 6750 Sep, [facility] [address] 05266- 2607 Sep, [facility] [address] 87832- 3077 Aug, [facility] [address] 84842- 9564 Aug, [facility] [address] 74992- 9548 Aug, [facility] [id number] [place] [address] 42568- 3207 Aug, [facility] [address] 15680- 4112 Aug, [facility] [address] [id number] [place] [address]- 9494 Aug, [facility] [place] [facility] [address] [id number] [place] [address]- 2871 Jul, [facility] [place] [facility] [address] [id number] [place] [address]- 6004 Jul, [facility] [place] [facility] [address] [id number] [place] [address]- 5218 Jun, [facility] [place] [facility] [address] [id number] [place] [address]- 7540 Jun, [facility] [place] [facility] [address] [id number] [place] [address]- 7832 Jun, [facility] [place] [facility] [address] [id number] [place] [address]- 9648 Jun, [facility] [place] [facility] [address] [id number] [place] [address]- 5955 Jun, [facility] [place] [facility] [address] [id number] [place] [address]- 2243 Jun, [facility] [place] [facility] [address] [id number] [place] [address]- 5106 Jun, [facility] [place] [facility] [address] [id number] [place] [address]- 7571 May, [facility] [place] [facility] [address] [id number] [address]- 4233 May, [facility] [place] [facility] [address] [id number] [place] [address]- 2611 May, [facility] [place] [facility] [address] [id number] [place] [address]- 5492 May, [facility] [place] [facility] [address] [id number] [place] [address]- 2674 Apr, [facility] [place] [facility] [address] [id number] [place] [address]- 9302 Apr, [facility] [place] [facility] [address] [id number] [place] [address]- 0013 Mar, [facility] [place] [facility] [address] [id number] [place] [address]- 7630 Mar, [facility] [place] [facility] [address] [id number] [place] [address]- 3944 Mar, [facility] [place] [facility] [address] [id number] [place] [address]- 6287 Mar, [facility] [place] [facility] [address] [id number] [place] [address]- 5400 Mar, [facility] [place] [facility] [address] [id number] [place] [address]- 1662 Mar, [facility] [place] [facility] [address] [id number] [place] [address]- 3582 Mar, [facility] [place] [facility] [address] [id number] [place] [address]- 7321 Mar, [facility] [place] [facility] [address] [id number] [place] [address]- 3384 Mar, [facility] [place] [facility] [address] [id number] [place] [address]- 8625 Mar, [facility] [place] [facility] [address] [id number] [place] [address]- 3413 16 Feb, 2014 [facility] [place] [facility] [address] [id number] [place] [address]- 0480 Feb, [facility] [place] [facility] [address] [id number] [place] [address]- 1191 Jan, [facility] [place] [facility] [address] [id number] [place] [address]- 0383 Jan, [facility] [place] [facility] [address] [id number] [place] [address]- 7679 Jan, [facility] [place] [facility] [address] [id number] [place] [address]- 4207 Jan, [facility] [place] [facility] [address] [id number] [place] [address]- 2337 Jan, [facility] [place] [facility] [address] [id number] [place] [address]- 4771 Jan, [facility] [place] [facility] [address] [id number] [place] [address]- 1969 Jan, [facility] [place] [facility] [address] [id number] [place] [address]- 7499 Jan, [facility] [place] [facility] [address] [id number] [place] [address]- 3809 Jan, [facility] [place] [facility] [address] [id number] [place] [address]- 3855 Jan, [facility] [place] [facility] [address] [id number] [place] [address]- 1874 Dec, [facility] [place] [facility] [address] [id number] [place] [address]- 3510 Dec, [facility] [place] [facility] [address] [id number] [place] [address]- 0335 Dec, [facility] [place] [facility] [address] [id number] [place] [address]- 8288 Dec, [facility] [place] [facility] [address] [id number] [place] [address]- 2791 Nov, [facility] [place] [facility] [address] [id number] [place] [address]- 3330 Nov, [facility] [place] [facility] [address] [id number] [place] [address]- 4206 Nov, [facility] [place] [facility] [address] [id number] [place] [address]- 6186 Nov, [facility] [place] [facility] [address] [id number] [place] [address]- 9661 October, [facility] [place] [facility] [address] [id number] [place] [address]- 6670 October, [facility] [place] [facility] [address] [id number] [place] [address]- 0058 Sep, [facility] [place] [facility] [address] [id number] [place] [address]- 0562 Sep, [facility] [place] [facility] [address] [id number] [place] [address]- 3713 Sep, [facility] [place] [facility] [address] [id number] [place] [address]- 1000 Sep, [facility] [place] [facility] [address] [id number] [place] [address]- 6761 Sep, [facility] [place] [facility] [address] [id number] [place] [address]- 9627 Sep, [facility] [place] [facility] [address] [id number] [place] [address]- 6415 Sep, [facility] [place] [facility] [address] [id number] [place] [address]- 3557 Sep, [facility] [place] [facility] [address] [id number] [place] [address]- 0355 Sep, [facility] [place] [facility] [address] [id number] [place] [address]- 5776 Sep, [facility] [place] [facility] [address] [id number] [place] [address]- 0821 Jul, [facility] [place] [facility] [address] [id number] [place] [address]- 9881 Jul, [facility] [place] [facility] [address] [id number] [place] [address]- 4989 Jul, [facility] [place] [facility] [address] [id number] [place] [address]- 0582 Jul, [facility] [place] [facility] [address] [id number] [place] [address]- 6961 Jun, [facility] [address] [id number] [place] [address]- 1629 Jun, [facility] [place] [facility] [address] [id number] [place] [address]- 3280 Jun, [facility] [place] [facility] [address] [id number] [place] [address]- 9629 Jun, [facility] [place] [facility] [address] [id number] [place] [address]- 5560 Jun, [facility] [place] [facility] [address] [id number] [place] [address]- 2323 Jun, [facility] [place] [facility] [address] [id number] [place] [address]- 5120 Apr, [facility] [place] [facility] [address] [id number] [place] [address]- 7329 Apr, [facility] [place] [facility] [address] [id number] [place] [address]- 0914 Apr, [facility] [place] [facility] [address] [id number] [place] [address]- 8854 Apr, [facility] [place] [facility] [address] [id number] [place] [address]- 6009 Apr, [facility] [place] [facility] [address] [id number] [place] [address]- 9464 Apr, [facility] [place] [facility] [address] [id number] [place] [address] Apr, [facility] [place] [facility] [address] [id number] [place] [address] Apr, [facility] [place] [facility] [address] [id number] [place] [address] Mar, [facility] [place] [facility] [address] [id number] [place] [address] Mar, [facility] [address] [id number] [place] [address] Feb, [facility] [place] [facility] [address] [id number] [place] [address] Feb, [facility] [place] [facility] [address] [id number] [place] [address] Dec, [facility] [place] [facility] [address] [id number] [place] [address] Dec, [facility] [address] [id number] [place] [address] Dec, [facility] [place] [facility] [address] [id number] [place] [address] Dec, [facility] [place] [facility] [address] [id number] [place] [address] Dec, [facility] [place] [facility] [address] [id number] [place] [address] Dec, [facility] [place] [facility] [address] [id number] [place] [address] Dec, [facility] [place] [facility] [address] [id number] [place] [address] Nov, [facility] [place] [facility] [address] [id number] [place] [address] Nov, [facility] [place] [facility] [address] [id number] [address] Nov, [facility] [place] [facility] [address] [id number] [place] [address] Nov, [facility] [place] [facility] [address] [id number] [place] [address] October, [facility] [place] [facility] [address] [id number] [place] [address] October, [facility] [place] [facility] [address] [id number] [place] [address] October, [facility] [address] [id number] [place] [address] October, [facility] [place] [facility] [address] [facility] [id number] [place] [address] Sep, [facility] [address] [facility] [id number] [place] [address] Aug, [facility] [place] [facility] [address] [id number] [place] [address] Aug, [facility] [address] [id number] [place] [address] Aug, [facility] [place] [facility] [address] [facility] [id number] [place] [address] Aug, [facility] [address] [facility] [id number] [place] [address] Aug, [facility] [address] [facility] [id number] [place] [address] Jul, [facility] [place] [facility] [id number] [place] [address] 27 Jul, 2012 [facility] [address] [facility] [id number] [place] [address] 26 Jul, 2012 [facility] [place] [facility] [id number] [place] [address] Jul, [facility] [place] [facility] [address] [facility] [id number] [place] [address] 25 Jul, 2012 [facility] [place] [facility] [address] [facility] [id number] [place] [address] 23 Jul, 2012 [facility] [place] [facility] [address] [facility] [id number] [place] [address] 20 Jul, 2012 [facility] [place] [facility] [id number] [place] [address] 15 Jul, 2012 [facility] [place] [facility] [address] [id number] [place] [address] 14 Jul, 2012 [facility] [place] [facility] [address] [id number] [place] [address] Jul, [facility] [place] [facility] [address] [id number] [place] [address] Jun, [facility] [place] [facility] [address] [id number] [place] [address] Jun, [facility] [place] [facility] [address] [id number] [place] [address] Jun, [facility] [place] [facility] [address] [id number] [place] [address] May, [facility] [place] [facility] [address] [id number] [place] [address] May, [facility] [place] [facility] [address] [id number] [place] [address] Apr, [facility] [place] [facility] [address] [id number] [place] [address] Apr, [facility] [place] [facility] [address] [id number] [place] [address] Apr, [facility] [place] [facility] [address] [id number] [address] Apr, [facility] [place] [facility] [address] [id number] [place] [address] Apr, [facility] [place] [facility] [address] [id number] [place] [address] Apr, [facility] [place] [facility] [address] [id number] [place] [address] Apr, [facility] [place] [facility] [address] [id number] [place] [address] Apr, [facility] [place] [facility] [address] [id number] [place] [address] Mar, [facility] [place] [facility] [address] [id number] [place] [address] Mar, 2011 [facility] [place] [facility] [address] [id number] [place] [address] Mar, [facility] [place] [facility] [address] [id number] [place] [address] Mar, 2011 [facility] [place] [facility] [address] [id number] [place] [address] Mar, [facility] [place] [facility] [address] [id number] [place] [address] Mar, [facility] [place] [facility] [address] [id number] [place] [address] Mar, [facility] [place] [facility] [address] [id number] [place] [address] Mar, [facility] [place] [facility] [address] [id number] [place] [address] Mar, [facility] [place] [facility] [address] [id number] [place] [address] Feb, [facility] [place] [facility] [address] [id number] [place] [address] Jan, [facility] [place] [facility] [address] [id number] [place] [address] Jan, [facility] [place] [facility] [address] [id number] [place] [address] Jan, [facility] [place] [facility] [address] [id number] [place] [address] Dec, [facility] [place] [facility] [address] [id number] [place] [address] Dec, [facility] [place] [facility] [address] [id number] [place] [address] Dec, [facility] [place] [facility] [address] [id number] [place] [address] Nov, [facility] [address] [id number] [place] [address] October, [facility] [address] [id number] [place] [address] October, [facility] [address] [id number] [place] [address] October, [facility] [address] [id number] [place] [address] October, [facility] [address] [id number] [place] [address] October, [facility] [address] [id number] [place] [address] Sep, [facility] [address] [id number] [place] [address] Sep, [facility] [address] [id number] [place] [address] Sep, [facility] [address] [id number] [place] [address] Sep, [facility] [address] [id number] [place] [address] Sep, [facility] [place] [facility] [address] [id number] [place] [address] Sep, [facility] [place] [facility] [address] [id number] [place] [address] Sep, [facility] [place] [facility] [address] [id number] [place] [address] Aug, [facility] [place] [facility] [address] [id number] [place] [address] Aug, [facility] [place] [facility] [address] [id number] [place] [address] 21 Aug, 2011 [facility] [address] [id number] [place] [address] 21 Aug, 2011 [facility] [place] [facility] [address] [id number] [place] [address] 20 Aug, 2011 [facility] [place] [facility] [address] [id number] [place] [address] 19 Aug, 2011 [facility] [place] [facility] [address] [id number] [place] [address]- [address]26 16 Aug, 2011 [facility] [place] [facility] [address] [id number] [place] [address] 15 Aug, 2011 [facility] [place] [facility] [address] [id number] [place] [address]- [address] 15 Aug, 2011 [facility] [address] [id number] [place] [address]- [address] 14 Aug, 2011 [facility] [place] [facility] [address] [id number] [place] [address]- [address] 12 Aug, 2011 [facility] [place] [facility] [address] [id number] [place] [address]- [address] 08 Aug, 2011 [facility] [place] [facility] [address] [id number] [place] [address] 15 Jul, 2011 [facility] [place] [facility] [address] [id number] [place] [address]- 8568 15 Jul, 2011 [facility] [place] [facility] [address] [id number] [place] [address]- 8936 14 Jul, 2011 [facility] [place] [facility] [address] [id number] [place] [address]- [address] 06 Jul, 2011 [facility] [place] [facility] [address] [id number] [place] [address]- 6[address] 02 Jul, 2011 [facility] [place] [facility] [address] [id number] [place] [address]- 90[address] 18 Jun, 2011 [facility] [place] [facility] [address] [id number] [place] [address] Jun, [facility] [place] [facility] [address] [id number] [place] [address] Jun, [facility] [place] [facility] [address] [id number] [place] [address] May, [facility] [place] [facility] [address] [id number] [place] [address] May, [facility] [place] [facility] [address] [id number] [place] [address]- 78[address] May, [facility] [place] [facility] [address] [id number] [place] [address] May, [facility] [place] [facility] [address] [id number] [place] [address]- [address] 14 May, 2011 [facility] [place] [facility] [address] [id number] [place] [address]- 3532 16 Apr, 2011 [facility] [place] [facility] [address] [id number] [place] [address]- [address] 16 Apr, 2011 [facility] [place] [facility] [address] [id number] [place] [address]- [address]80 15 Apr, 2011 [facility] [place] [facility] [address] [id number] [place] [address]- 12[address] 14 Apr, 2011 [facility] [place] [facility] [address] [id number] [place] [address]- 3[address] 25 Mar, 2011 [facility] [place] [facility] [address] [id number] [place] [address]- 1812 24 Mar, 2011 [facility] [place] [facility] [address] [id number] [place] [address]- 17[address] Mar, [facility] [place] [facility] [address] [id number] [place] [address] 19 Mar, 2011 [facility] [place] [facility] [address] [id number] [place] [address] Mar, [facility] [address] [id number] [address] Mar, [facility] [id number] [address] 8766 Feb, [facility] [address] [id number] [address] Nov, [facility] [id number] [address] Aug, [facility] [id number] [address] Apr, [facility] [address]00565[address] [address] Mar, [facility] [address]65[address] [address] Apr, [facility] [address]00565[address] [address]188 Apr, [facility] [address] [id number] [address] Sep, [facility] [address] [id number] [address] Mar, IMMUNIZATIONS No Known Immunizations SOCIAL HISTORY Never Assessed REASON FOR VISIT script request PLAN OF CARE VITAL SIGNS MEDICATIONS Medication Instructions Dosage Frequency Start Date End Date Duration Status Wheelchair 1 use as needed for acitivity assistance Nov, Active RESULTS No Results PROCEDURES No Known [...]
--- OUTSIDE RECORDS SUMMARY | 2018-06-19 13:34 | XMS REPORT ---
Author Author ARISTEO ARAYA Organization [facility] Address [address] [place] [address] Care Team Providers Care Director Of Instruction Name Role Phone ARISTEO ARAYA Unavailable PROBLEMS Type Condition ICD9-CM Code UUR26-AS Code Onset Dates Condition Status SNOMED Code Problem Fibromyalgia M79.7 Active 168197019 Problem Bronchitis J40 Active 37047904 Problem Other chronic pain G89.29 Active 62257018 Problem Migraine without aura and without status migrainosus, not intractable G43.009 Active 329615812 Problem Sacral pain M53.3 Active 49880940 Problem Other chronic gastritis without hemorrhage K29.50 Active 6053137 Problem Non morbid obesity due to excess calories E66.09 Active 882886250 Problem Hypertension, benign I10 Active 46754535 Problem Unsteady gait R26.81 Active 41483261 Problem Eosinophilic colitis K52.82 Active 82146431 ALLERGIES Substance Reaction Event Type Date Status Singulair Unknown Drug Allergy October, Active Lisinopril Unknown Drug Allergy October, Active metals Unknown Non Drug Allergy October, Active SOCIAL HISTORY Never Assessed PLAN OF CARE VITAL SIGNS Height 63 in 2016-10-13 Weight 219.8 lbs 2016-10-13 Temperature 98.6 degrees Fahrenheit 2016-10-13 Heart Rate 80 bpm 2016-10-13 Respiratory Rate 20 2016-10-13 BMI 38.93 kg/m2 2016-10-13 Blood pressure systolic 132 mmHg 2016-10-13 Blood pressure diastolic 98 mmHg 2016-10-13 MEDICATIONS Medication Instructions Dosage Frequency Start Date End Date Duration Status Lyrica 100 MG Orally 3 times a day 1 capsule by Oral route 3 times per day for fibromyalgia (729.1) 8h Mar, 30 days Active Micardis 20 mg 1 tablet by Oral route 1 time per day Jun, Active Topamax 25 MG Orally Twice a day, voucher 1 tablet Aug, 30 day(s) Active Glucocard Expression Test - test blood sugar Aug, Active Crestor 10 mg Orally Once a day 1 tablet 24h 16 Feb, 2014 90 days Active Sumatriptan Succinate 100 mg Orally Once a day,voucher 1 tablet as needed Aug, Active Metformin HCl 1000 MG Orally Twice a day 1 tablet with meals 12h Nov, 30 day(s) Active Albuterol Sulfate (2.5 MG/3ML) 0.083% Inhalation Three times a day 3 ml 8h Aug, Active Famotidine 20 mg Orally Twice a day 1 tablet 12h Sep, 30 day(s ) Active PredniSONE 20 mg Orally Once a day, voucher 2 tablets October, October, 05 days Active Proventil HFA 108 (90 Base) MCG/ACT Inhalation every 4 hrs 2 puffs as needed 4h Aug, Active Glucocard Expression Monitor w/Device as directed Aug, Active Seroquel XR 150 MG Orally Once a day 1 tablet in the evening 24h Active Zofran ODT 4 MG Orally 3 times a day 1 tablet on the tongue and allow to dissolve 8h Sep, Active Diclofenac Sodium 75 MG Orally Twice a day, voucher 1st fill 1 tablet with food or milk October, Mar, 30 day(s) Active Cymbalta 60 MG Orally Once a day 1 capsule 24h Active Guaifenesin 200 MG Orally every 4 hrs 1 tablet as needed 4h Aug, Active Mirtazapine 15 MG Orally Once a day 1 tablet at bedtime 24h Active Walker [place] [employer] - with bench seat. DX: fibromyalgia, unsteady gait as directed Jan, Active RESULTS No Results PROCEDURES Procedure Date Ordered Result Body Site TORADOL (IM) 60 MG/2ML (UP TO 15 MG) October 13, 2016 THER/PROPH/DIAG INJ, SC/IM October 13, 2016 IMMUNIZATIONS Vaccine Route Administration Date Status TORADOL (IM) 60 MG/2ML (UP TO 15 MG) IM Intramuscular October 13, 2016 Administered MEDICAL (GENERAL) HISTORY Type Description [...]
--- OUTSIDE RECORDS SUMMARY | 2018-06-19 13:34 | XMS REPORT ---
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 Name Role Phone ARISTEO ARAYA Unavailable PROBLEMS Type Condition ICD9-CM Code IMX43-PH Code Onset Dates Condition Status SNOMED Code Problem Non morbid obesity due to excess calories E66.09 Active 245619948 Problem Unsteady gait R26.81 Active 36442702 Problem Eosinophilic colitis K52.82 Active 36867037 Problem Acute right-sided low back pain with right-sided sciatica M54.41 Active 904809050 Problem Paresthesias in left hand R20.2 Active 854612621 Problem Non morbid obesity E66.9 Active 966399915 Problem Other chronic gastritis without hemorrhage K29.50 Active 1480916 Problem GERD with esophagitis K21.0 Active 508415273 Problem Sacral pain M53.3 Active 20389972 Problem Fibromyalgia M79.7 Active 397238808 Problem Other chronic pain G89.29 Active 09466543 Problem Bronchitis J40 Active 99793518 Problem Migraine without aura and without status migrainosus, not intractable G43.009 Active 913412793 Problem Hypertension, benign I10 Active 36244045 ALLERGIES No Information ENCOUNTERS Encounter Location Date Diagnosis [facility] [id number] [place] [address] 60362- 4368 Dec, [facility] [id number] [place] [address] 81480- 8810 Nov, [facility] [address] 45339- 0186 Nov, BMI 40.0-44.9, adult Z68.41 ; Leg edema R60.0 and Hypertension, benign I10 [facility] [id number] [place] [address] 93779- 2300 Nov, [facility] [id number] [place] [address] 64695- 4367 October, Thoracic neuritis M54.14 [facility] [id number] [place] [address] 93660- 5660 October, Acute right hip pain M25.551 [facility] [id number] [place] [address] 15642- 2495 October, [place] [address] 18571- 1089 Sep, Hypertension, benign I10 and Acute right-sided low back pain with right-sided sciatica M54.41 [place] [address] 67250- 3351 Sep, Fibromyalgia M79.7 and Hypertension, benign I10 [facility] [id number] [place] [address] 85747- 5701 Aug, [place] [address] 91678- 5134 Aug, Fibromyalgia M79.7 ; Frequent headaches R51 and Non morbid obesity due to excess calories E66.09 [facility] [id number] [place] [address] 33138- 6822 Jul, [facility] [id number] [place] [address] 36975- 0143 Jul, Fibromyalgia M79.7 [place] [address] 28082- 0948 Jul, Viral gastroenteritis A08.4 and Paresthesias in left hand R20.2 [facility] [place] [id number] [place] [address] 60785- 8971 Jun, Non morbid obesity due to excess calories E66.09 [facility] [place] [id number] [place] [address] 22141- 6020 Jun, [facility] [id number] [place] [address] 77154- 0796 Jun, Fibromyalgia M79.7 [place] [address] 65917- 9046 May, Non morbid obesity due to excess calories E66.09 and Hypertension, benign I10 [place] [address] 86414- 9329 May, GERD with esophagitis K21.0 [place] [address] 74611- 1305 Apr, BMI 40.0-44.9, adult Z68.41 and Non morbid obesity E66.9 [place] [address] 51583- 7900 Mar, Unsteady gait R26.[address] 73341- 2230 Mar, Unsteady gait R26.81 ; Sacral pain M53.3 and Fibromyalgia M79.[address] 82322- 2222 Mar, Non morbid obesity due to excess calories E66.09 [facility] [id number] [place] [address] 31020- 4724 Feb, Abdominal pain, generalized R10.84 [place] [address] 76894- 7970 18 Feb, 2017 Other chronic gastritis without hemorrhage K29.50 and H. pylori infection A04.8 [place] [address] 49407- 8948 Feb, Back pain 724.5 ; Pain in left shoulder M25.512 ; Fibromyalgia M79.7 and Non morbid obesity due to excess calories E66.09 [facility] [id number] [place] [address] 03245- 9055 07 Feb, 2017 BMI 40.0-44.9, adult Z68.41 [facility] [id number] [place] [address] 38796- 5968 Jan, Dysuria R30.0 and Acute cystitis with hematuria N30.01 [facility] [id number] [place] [address] 59210- 8288 Jan, Dysuria R30.0 [place] [address] 66194- 3119 Dec, Fibromyalgia M79.7 [place] [address] 03892- 4784 Dec, Screening for diabetes mellitus Z13.1 and Fibromyalgia M79.7 [place] [address] 37695- 4356 Dec, Fibromyalgia M79.7 [place] [address] 32981- 4860 Dec, [place] [address] 11172- 5005 Dec, Fibromyalgia M79.[address] 94612- 4282 Nov, Foreign body in foot, left, initial encounter S90.[address] [place] [id number] [place] [address] 19918- 1658 Nov, Viral gastroenteritis A08.[address] 26750- 7657 09 Nov, 2016 Fall, initial encounter W19.XXXA ; Post-traumatic headache, unspecified, not intractable G44.309 ; Dizziness R42 ; Unsteady gait R26.81 ; Sacral pain M53.3 and Non morbid obesity due to excess calories E66.[address] 09771- 3591 Nov, [address] [place] [address]- 9072 Nov, [place] [address] 72572- 6757 October, Non morbid obesity due to excess calories E66.09 and Hypertension, benign I10 [place] [address] 11456- 3513 October, Fibromyalgia M79.7 [place] [address] 33320- 1481 Sep, [place] [address] 98676- 0681 Sep, [place] [address] 44468- 1040 Sep, Eosinophilic colitis K52.82 [place] [address] 28157- 8657 Aug, Bronchitis J40 [place] [id number] [place] [address] 85368- 0570 Aug, [place] [address] 21336- 5780 Aug, Pain in left shoulder M25.512 ; Bronchitis J40 ; Acute midline back pain, unspecified location M54.9 ; Migraine without aura and without status migrainosus, not intractable G43.009 ; Fibromyalgia M79.7 and Pain of upper abdomen R10.10 [place] [id number] [place] [address] 16752- 3796 Aug, [place] [id number] [place] [address] 34055- 8158 Aug, [place] [id number] [place] [address] 50579- 0858 Jul, Other viral agents as the cause of diseases classified elsewhere B97.89 and Acute upper respiratory infection, unspecified J06.9 [place] [address] [place] [address]- 4134 Jun, [facility] [address] [address]2723 Jun, [facility] [id number] [place] [address] 94946- 3581 May, Abscess L02.91 [facility] [id number] [place] [address] 53695- 4552 May, Acute midline low back pain without sciatica M54.5 [facility] [id number] [place] [address] 66769 -3804 May, [facility] [id number] [place] [address] 41916- 5151 Apr, [facility] [id number] [place] [address] 32100- 0749 Apr, Other chronic pain G89.29 ; Pain in right shoulder M25.511 and Pain in left shoulder M25.512 [facility] [id number] [place] [address] 07895- 1080 Apr, [facility] [id number] [place] [address] 82144- 5545 Apr, [facility] [id number] [place] [address] 46203- 9857 Apr, Fibromyalgia M79.7 ; Other chronic pain G89.29 and Pain in left shoulder M25.512 [facility] [address], [place] [address]- 3218 Apr, Bronchitis J40 [facility] [id number] [place] [address] 85680- 4226 Mar, [facility] [id number] [id number] Mar, [facility] [id number] [place] [address] 18061- 4975 Feb, [facility] [address] [address]- 0102 26 Feb, 2015 [facility] [id number] [place] [address] 36461- 6406 23 Feb, 2015 [facility] [address] [address]- 7976 22 Feb, 2015 [facility] [id number] [place] [address] 83134- 6904 20 Feb, 2015 [facility] [address] [place] [address] 98914- 9400 19 Feb, 2015 [facility] [id number] [place] [address] 00092- 3179 19 Feb, 2015 Dysuria R30.0 [facility] [address] [place] [address] 10429- 5764 19 Feb, 2015 Dysuria R30.0 [facility] [id number] [place] [address] 42803- 8746 16 Feb, 2015 [facility] [address] [place] [address] 47573- 4278 15 Feb, 2016 Migraine, unspecified, not intractable, without status migrainosus G43.909 and Fibromyalgia M79.7 [facility] [address], [place] [address]- 3209 06 Feb, 2016 Migraine without aura and without status migrainosus, not intractable G43.009 [facility] [address], [place] [address]- 0825 Jan, [facility] [address] [place] [address] 36883- 1190 Jan, [facility] [address], [place] [address]- 7689 Jan, [facility] [address], [place] [address]- 8085 Jan, [facility] [id number] [place] [address] 59270- 9531 Jan, Unsteady gait R26.81 ; Fibromyalgia M79.7 and Family history of rheumatoid arthritis Z82.61 [facility] [id number] [place] [address] 96594- 3902 Dec, [place] [address] 66746- 4535 Dec, [place] [address] 61115- 9220 Nov, Pain in left shoulder M25.512 [place] [address] 97261- 1526 October, Viral gastroenteritis A08.4 [facility] [address] 58850 -3658 October, Pain of upper abdomen R10.10 [place] [address] 48152- 5317 October, Acute midline back pain, unspecified location M54.9 [place] [address] 07124- 5523 Aug, Elbow pain, right M25.521 [place] [address] 27865- 8999 Aug, Elbow pain, right M25.521 [place] [address] 02158- 8940 Aug, Pain of right upper extremity M79.601 [place] [address] 55462- 1850 Jun, Lumbar neuritis M54.16 [place] [id number] [place] [address] 59195- 2723 May, [place] [address] 65061- 5458 Apr, Non morbid obesity due to excess calories E66.09 [facility] [address] 71184- 1908 Apr, Non morbid obesity due to excess calories E66.09 and Thoracic neuritis M54.14 [facility] [address] 08186- 1034 Apr, Elbow pain, right M25.521 [facility] [address] 26772- 7166 Mar, Right elbow pain M25.521 [place] [address] 73586- 1876 Mar, [facility] [address] 47608- 2774 Feb, Urinary tract infection, site not specified 599.0 [place] [address] 60773- 6735 Feb, [facility] [address] 94367- 2672 Jan, Spider bite 989.5 [place] [address] 93629- 1581 Jan, Spider bite 989.5 [place] [address] 67887- 3696 Jan, Spider bite 989.5 [place] [address] 43354- 5275 10 Nov, 2014 Back pain 724.5 and Diabetes 250.00 [place] [address] 77152- 9032 Nov, Back pain 724.5 and Muscle spasm of back 724.8 [place] [address] 71919- 6374 02 Nov, 2014 Alternating constipation and diarrhea 787.99 [facility] [address] [id number], [place] [address]- 0134 October, Back pain 724.5 and Hip pain 719.45 [facility] [address] [id number], [place] [address]- 0763 14 Sep, 2014 [facility] [address] [facility] [id number], [place] [address]- 4126 Sep, [facility] [address] [id number], [place] [address]- 0869 Aug, [facility] [id number] [place] [address] 67622- 4472 Aug, [facility] [address] [facility] [id number], [place] [address]- 7934 Aug, [facility] [id number], [place] [address]- 0052 Aug, [facility] [address] [facility] [id number], [place] [address]- 6815 Aug, [facility] [id number], [place] [address]- 9559 Aug, [facility] [address] [facility] [id number], [place] [address]- 9657 Jul, [facility] [address] [facility] [id number], [place] [address]- 6240 Jul, [facility] [address] [facility] [id number], [place] [address]- 5729 Jun, [facility] [address] [facility] [id number], [place] [address]- 7660 Jun, [facility] [address] [facility] [id number], [place] [address]- 8547 Jun, [facility] [id number], [place] [address]- 5863 Jun, [facility] [place] [facility] [address] [id number] [place] [address]- 5689 Jun, [facility] [place] [facility] [address] [id number] [place] [address]- 2058 Jun, [facility] [place] [facility] [address] [id number] [place] [address]- 6264 Jun, [facility] [place] [facility] [address] [id number] [place] 8178 May, [facility] [place] [facility] [address] [id number] [place] [address]- 4020 May, [facility] [place] [facility] [address] [id number] [place] [address]- 5729 May, [facility] [place] [facility] [address] [id number] [place] [address]- 8378 May, [facility] [place] [facility] [address] [id number] [place] [address]- 6098 Apr, [facility] [place] [facility] [address] [id number] [place] [address]- 8504 Apr, [facility] [place] [facility] [address] [id number] [place] [address]- 5143 Mar, [facility] [place] [facility] [address] [id number] [place] [address]- 0589 Mar, [facility] [place] [facility] [address] [id number] [place] [address]- 1351 Mar, [facility] [place] [facility] [address] [id number] [place] [address]- 9577 Mar, [facility] [place] [facility] [address] [id number] [place] [address]- 3447 Mar, [facility] [place] [facility] [address] [id number] [place] 4685 Mar, [facility] [place] [facility] [address] [id number] [place] [address]- 4280 Mar, [facility] [place] [facility] [address] [id number] [place] [address]- 1655 Mar, [facility] [place] [facility] [address] [id number] [place] [address]- 0411 Mar, [facility] [place] [facility] [address] [id number] [place] [address]- 4141 Mar, [facility] [place] [facility] [address] [id number] [place] [address]- 8103 Feb, [facility] [place] [facility] [address] [id number] [place] [address]- 5807 Feb, [facility] [place] [facility] [address] [id number] [place] [address]- 6846 Jan, [facility] [place] [facility] [address] [id number] [place] [address]- 2733 Jan, [facility] [place] [facility] [address] [id number] [place] [address]- 8676 Jan, [facility] [place] [facility] [address] [id number] [place] [address]- 8409 Jan, [facility] [place] [facility] [address] [id number] [place] [address]- 0689 Jan, [facility] [place] [facility] [address] [id number], [place] [address]- 1977 Jan, [facility] [place] [facility] [address] [id number], [place] [address]- 6416 Jan, [facility] [place] [facility] [address] [id number] [place] [address]- 1202 Jan, [facility] [place] [facility] [address] [id number] [place] [address]- 8644 Jan, [facility] [place] [facility] [address] [id number] [place] [address]- 8885 Jan, [facility] [place] [facility] [address] [id number] [place] [address]- 1849 Dec, [facility] [place] [facility] [address] [id number] [place] [address]- 9221 Dec, [facility] [place] [facility] [address] [id number] [place] [address]- 1345 Dec, [facility] [place] [facility] [address] [id number] [place] [address]- 8931 Dec, [facility] [place] [facility] [address] [id number] [place] [address]- 2557 Nov, [facility] [place] [facility] [address] [id number] [place] [address]- 9068 Nov, [facility] [place] [facility] [address] [id number] [place] [address]- 1349 Nov, [facility] [place] [facility] [address] [id number] [place] [address]- 5195 Nov, [facility] [place] [facility] [address] [id number] [place] [address]- 7260 October, [facility] [place] [facility] [address] [id number] [place] [address]- 6896 October, [facility] [place] [facility] [address] [id number] [place] [address]- 9934 Sep, [facility] [place] [facility] [address] [id number] [place] [address]- 5675 Sep, [facility] [place] [facility] [address] [id number] [place] [address]- 9191 Sep, [facility] [place] [facility] [address] [id number] [place] [address]- 6004 Sep, [facility] [place] [facility] [address] [id number] [place] [address]- 5071 Sep, [facility] [place] [facility] [address] [id number] [place] [address]- 3996 Sep, [facility] [place] [facility] [address] [id number] [place] [address]- 5770 Sep, [facility] [place] [facility] [address] [id number] [place] [address]- 7175 Sep, [facility] [place] [facility] [address] [id number] [place] 6091 Sep, [facility] [place] [facility] [address] [id number] [place] [address]- 3076 Sep, [facility] [place] [facility] [address] [id number] [place] [address]- 4695 Jul, [facility] [place] [facility] [address] [id number] [place] [address]- 5389 Jul, [facility] [place] [facility] [address] [id number] [place] [address]- 1876 Jul, [facility] [place] [facility] [address] [id number] [place] [address]- 7829 Jul, [facility] [place] [facility] [address] [id number] [place] [address]- 0482 Jun, [facility] [place] [facility] [address] [id number] [place] [address]- 8374 Jun, [facility] [place] [facility] [address] [id number] [place] [address]- 1454 Jun, [facility] [place] [facility] [address] [id number] [place] [address]- 1116 Jun, [facility] [place] [facility] [address] [id number] [place] [address] Jun, [facility] [place] [facility] [address] [id number] [place] [address] Jun, [facility] [place] [facility] [address] [id number] [place] [address] Apr, [facility] [place] [facility] [address] [id number] [place] [address] Apr, [facility] [place] [facility] [address] [id number] [place] [address] Apr, [facility] [place] [facility] [address] [id number] [place] [address] Apr, [facility] [place] [facility] [address] [id number] [place] [address] Apr, [facility] [place] [facility] [address] [id number] [place] [address] Apr, [facility] [place] [facility] [address] [id number] [place] [address] Apr, [facility] [place] [facility] [address] [id number] [place] [address] Apr, [facility] [place] [facility] [address] [id number] [place] [address] Mar, [facility] [place] [facility] [address] [id number] [place] [address] Mar, [facility] [place] [facility] [address] [id number] [place] [address] Feb, [facility] [place] [facility] [address] [id number] [place] [address] Feb, [facility] [place] [facility] [address] [id number] [place] [address] Dec, [facility] [place] [facility] [address] [id number], [place] [address] Dec, [facility] [place] [facility] [address] [id number] [place] [address] Dec, [facility] [place] [facility] [address] [id number] [place] [address] Dec, [facility] [place] [facility] [address] [id number] [place] [address] Dec, [facility] [place] [facility] [address] [id number] [place] [address] Dec, [facility] [place] [facility] [address] [id number] [place] [address] Dec, [facility] [place] [facility] [address] [id number] [place] [address] Nov, [facility] [place] [facility] [address] [id number] [place] [address] Nov, [facility] [place] [facility] [address] [id number] [place] [address] Nov, [facility] [place] [facility] [address] [id number] [place] [address] Nov, [facility] [place] [facility] [address] [id number] [place] [address] October, [facility] [place] [facility] [address] [id number] [place] [address] October, [facility] [place] [facility] [address] [id number] [place] [address] October, [facility] [place] [facility] [address] [id number] [place] [address] October, [facility] [place] [facility] [address] [id number] [place] [address] Sep, [facility] [place] [facility] [address] [id number] [place] [address] Aug, [facility] [place] [facility] [address] [id number] [place] [address] Aug, [facility] [place] [facility] [address] [id number] [place] [address] Aug, [facility] [place] [facility] [address] [id number] [place] [address] Aug, [facility] [place] [facility] [address] [id number] [place] [address] Aug, [facility] [address] [id number] [place] [address] Jul, [facility] [address] [id number] [place] [address] Jul, [facility] [address] [facility] [id number] [place] [address] Jul, [facility] [address] [id number] [place] [address] Jul, [facility] [address] [id number] [place] [address] Jul, [facility] [address] [facility] [id number] [place] [address] 23 Jul, 2012 [facility] [id number] [place] [address] 20 Jul, 2012 [facility] [address] [facility] [id number] [place] [address] 15 Jul, 2012 [facility] [address] [facility] [id number] [place] [address] 14 Jul, 2012 [facility] [address] [facility] [id number] [place] [address] Jul, [facility] [address] [facility] [id number] [place] [address] Jun, [facility] [address] [id number] [place] [address] Jun, [facility] [address] [facility] [id number] [place] [address] Jun, [facility] [address] [facility] [id number] [place] [address] May, [facility] [address] [facility] [id number], [place] [address] May, [facility] [place] [facility] [address] [id number] [place] [address] Apr, [facility] [place] [facility] [address] [id number] [place] [address] Apr, [facility] [place] [facility] [address] [id number] [place] [address] Apr, [facility] [place] [facility] [address] [id number] [place] [address], [place] [address]- [address] Apr, [facility] [place] [facility] [address] [id number] [place] [address]68 Apr, [facility] [place] [facility] [address] [id number] [place] [address] Apr, [facility] [place] [facility] [address] [id number] [place] [address] Apr, [facility] [place] [facility] [address] [id number] [place] [address] Apr, [facility] [place] [facility] [address] [id number] [place] [address] Mar, [facility] [place] [facility] [address] [id number] [place] [address] 31 Mar, 2012 [facility] [place] [facility] [address] [id number] [place] [address] Mar, [facility] [place] [facility] [address] [id number] [place] [address] 31 Mar, 2012 [facility] [place] [facility] [address] [id number] [place] [address] 77[address] 15 Mar, 2012 [facility] [place] [facility] [address] [id number] [place] [address] 2876 15 Mar, 2012 [facility] [place] [facility] [address] [id number] [place] [address] 6541 11 Mar, 2012 [facility] [place] [facility] [address] [id number] [place] [address] 488[address] Mar, [facility] [place] [facility] [address] [id number] [place] [address] 2546 Mar, [facility] [place] [facility] [address] [id number] [place] [address] Feb, [facility] [place] [facility] [address] [id number] [place] [address] Jan, [facility] [place] [facility] [address] [id number] [place] [address] Jan, [facility] [place] [facility] [address] [id number] [place] [address]- 25[address] Jan, [facility] [place] [facility] [address] [id number] [place] [address] Dec, [facility] [place] [facility] [address] [id number] [place] [address] 8875 Dec, [facility] [place] [facility] [address] [id number] [place] [address] Dec, [facility] [place] [facility] [address] [id number] [place] [address] Nov, [facility] [place] [facility] [address] [id number] [place] [address] 25[address] October, [facility] [place] [facility] [address] [id number] [place] [address] October, [facility] [place] [facility] [address] [id number] [place] [address]46 October, [facility] [place] [facility] [address] [id number] [place] [address]- [address] October, [facility] [place] [facility] [address] [id number] [place] [address] October, [facility] [place] [facility] [address] [id number] [place] [address] Sep, [facility] [place] [facility] [address] [id number] [place] [address] 23 Sep, 2011 [facility] [address] [id number] [place] [address] 9[address] 13 Sep, 2011 [facility] [address] [id number] [place] [address] 2566 12 Sep, 2011 [facility] [address] [id number] [place] [address]- 8416 12 Sep, 2011 [facility] [address] [id number] [place] [address] 11 Sep, 2011 [facility] [address] [id number] [place] [address]783 11 Sep, 2011 [facility] [address] [id number] [place] [address]- 2460 28 Aug, 2011 [facility] [address] [id number] [place] [address]378 23 Aug, 2011 [facility] [address] [id number] [place] [address] 4646 21 Aug, 2011 [facility] [address] [id number] [place] [address] 7952 21 Aug, 2011 [facility] [address] [id number] [place] [address] 9432 20 Aug, 2011 [facility] [address] [id number] [place] [address] 2546 19 Aug, 2011 [facility] [address] [id number] [place] [address]- 2546 16 Aug, 2011 [facility] [place] [facility] [address] [id number] [place] [address] 5196 15 Aug, 2011 [facility] [address] [id number] [place] [address] 2546 15 Aug, 2011 [facility] [address] [id number] [place] [address] 0816 14 Aug, 2011 [facility] [address] [id number] [place] [address]- 6874 Aug, [facility] [place] [facility] [address] [id number] [place] [address]- 9186 08 Aug, 2011 [facility] [place] [facility] [address] [id number] [place] [address]- 2346 15 Jul, 2011 [facility] [place] [facility] [address] [id number] [place] [address]- 7946 15 Jul, 2011 [facility] [place] [facility] [address] [id number] [place] [address] 9632 14 Jul, 2011 [facility] [place] [facility] [address] [id number] [place] [address]- 9366 06 Jul, 2011 [facility] [place] [facility] [address] [id number] [place] [address]- 1426 Jul, [facility] [place] [facility] [address] [id number] [place] [address]- 5286 Jun, [facility] [place] [facility] [address] [id number] [place] [address] 4810 Jun, [facility] [place] [facility] [address] [id number] [place] [address] 4156 Jun, [facility] [place] [facility] [address] [id number] [place] [address]- 0566 29 May, 2011 [facility] [place] [facility] [address] [id number] [place] [address]- 5956 May, [facility] [place] [facility] [address] [id number] [place] [address]- 5347 May, [facility] [place] [facility] [address] [id number] [place] [address]- 8006 May, [facility] [place] [facility] [address] [id number] [place] [address]- 2393 14 May, 2011 [facility] [place] [facility] [address] [id number] [place] [address]- 0205 16 Apr, 2011 [facility] [place] [facility] [address] [id number] [place] [address]- 8981 16 Apr, 2011 [facility] [place] [facility] [address] [id number] [place] [address]- 0649 15 Apr, 2011 [facility] [place] [facility] [address] [id number] [place] [address]- [address] 14 Apr, 2011 [facility] [place] [facility] [address] [id number] [place] [address]- 4379 25 Mar, 2011 [facility] [place] [facility] [address] [id number] [place] [address]- 0601 24 Mar, 2011 [facility] [place] [facility] [address] [id number] [place] [address]- 8518 19 Mar, 2011 [facility] [place] [facility] [address] [id number] [place] [address]- 9662 19 Mar, 2011 [facility] [place] [facility] [address] [id number] [place] [address]- 5739 17 Mar, 2011 [facility] [place] [facility] [address] [id number] [place] [address]- 3700 17 Mar, 2011 [facility] [place] [facility] [address] [facility] [id number] [place] [address]- 4745 16 Feb, 2011 [facility] [place] [facility] [address] [id number] [place] [address]- 7785 10 Nov, 2010 [facility] [place] [facility] [address] [id number] [place] [address]- 2311 17 Aug, 2010 [facility] [place] [facility] [address] [id number] [place] [address]- 6994 11 Apr, 2010 [facility] [place] [facility] [address] [id number] [place] [address]- 5396 16 Mar, 2010 [facility] [place] [facility] [address] [id number], [place] [address]- [address] Apr, [facility] [address] [facility] [id number] [place] [address]- 9494 Apr, [facility] [address] [facility] [id number] [place] [address]- 459[address] Sep, [facility] [address] [facility] [id number] [place] [address]- 2178 Mar, IMMUNIZATIONS No Known Immunizations SOCIAL HISTORY Never Assessed REASON FOR VISIT PALS PLAN OF CARE VITAL SIGNS MEDICATIONS Medication Instructions Dosage Frequency Start Date End Date Duration Status Lyrica 150 MG Orally 3 times a day 1 capsule 8h 08 Mar, 2014 90 days Active RESULTS No Results [...]
--- OUTSIDE RECORDS SUMMARY | 2018-06-19 13:35 | XMS REPORT ---
Author Author ARISTEO ARAYA Organization [facility] Address [address] [place] [address] Care Team Providers Care Programmer Analyst Health It Name Role Phone ARISTEO ARAYA Unavailable PROBLEMS Type Condition ICD9-CM Code CFR86-LE Code Onset Dates Condition Status SNOMED Code Problem Non morbid obesity due to excess calories E66.09 Active 053526944 Problem Unsteady gait R26.81 Active 20119504 Problem Eosinophilic colitis K52.82 Active 88232646 Problem Acute right-sided low back pain with right-sided sciatica M54.41 Active 901064285 Problem Paresthesias in left hand R20.2 Active 421440837 Problem Non morbid obesity E66.9 Active 416155023 Problem Other chronic gastritis without hemorrhage K29.50 Active 7931522 Problem GERD with esophagitis K21.0 Active 473411109 Problem Sacral pain M53.3 Active 27212846 Problem Fibromyalgia M79.7 Active 801299642 Problem Other chronic pain G89.29 Active 10230221 Problem Bronchitis J40 Active 22021433 Problem Migraine without aura and without status migrainosus, not intractable G43.009 Active 590657115 Problem Hypertension, benign I10 Active 95052537 ALLERGIES No Information ENCOUNTERS Encounter Location Date Diagnosis [facility] [id number] [place] [address]002- 8198 Dec, [facility] [id number] [place] [address] 73562- 8274 Nov, [facility] [address] 27390- 7658 Nov, BMI 40.0-44.9, adult Z68.41 ; Leg edema R60.[address], benign I10 [facility] [id number] [place] [address] 42696- 7180 Nov, [place] [id number] [place] [address] 75635- 0296 October, Thoracic neuritis M54.14 [place] [id number] [place] [address] 43119- 5239 October, Acute right hip pain M25.551 [place] [id number] [place] [address] 44143- 9274 October, [place] [address] 78974- 1865 Sep, Hypertension, benign I10 and Acute right-sided low back pain with right-sided sciatica M54.41 [place] [address] 22020- 5063 Sep, Fibromyalgia M79.7 and Hypertension, benign I10 [place] [id number] [place] [address] 27316- 2333 Aug, [place] [address] 51072- 3589 Aug, Fibromyalgia M79.7 ; Frequent headaches R51 and Non morbid obesity due to excess calories E66.09 [place] [id number] [place] [address] 13398- 4503 Jul, [place] [id number] [place] [address] 88221- 0305 Jul, Fibromyalgia M79.7 [place] [address] 79068- 1215 Jul, Viral gastroenteritis A08.4 and Paresthesias in left hand R20.2 [place] [id number] [place] [address] 22666- 6995 Jun, Non morbid obesity due to excess calories E66.09 [place] [id number] [place] [address] 77870- 2046 Jun, [place] [id number] [place] [address] 48990- 3360 Jun, Fibromyalgia M79.7 [place] [address] 27287- 2002 May, Non morbid obesity due to excess calories E66.09 and Hypertension, benign I10 [place] [address] 94157- 2989 May, GERD with esophagitis K21.0 [place] [address] 74467- 1454 Apr, BMI 40.0-44.9, adult Z68.41 and Non morbid obesity E66.9 [place] [address] 06268- 9966 Mar, Unsteady gait R26.[address] 91209- 8923 Mar, Unsteady gait R26.81 ; Sacral pain M53.3 and Fibromyalgia M79.[address] 01991- 8515 Mar, Non morbid obesity due to excess calories E66.09 [place] [id number] [place] [address] 44766- 0318 Feb, Abdominal pain, generalized R10.84 [place] [address] 47821- 1550 18 Feb, 2017 Other chronic gastritis without hemorrhage K29.50 and H. pylori infection A04.8 [place] [address] 21536- 4094 Feb, Back pain 724.5 ; Pain in left shoulder M25.512 ; Fibromyalgia M79.7 and Non morbid obesity due to excess calories E66.09 [place] [id number] [place] [address] 73448- 0913 07 Feb, 2017 BMI 40.0-44.9, adult Z68.41 [place] [id number] [place] [address] 79352- 3177 Jan, Dysuria R30.0 and Acute cystitis with hematuria N30.01 [place] [id number] [place] [address] 60878- 1815 Jan, Dysuria R30.0 [place] [address] 27699- 0714 Dec, Fibromyalgia M79.7 [place] [address] 01085- 6952 Dec, Screening for diabetes mellitus Z13.1 and Fibromyalgia M79.7 [place] [address] 93972- 4536 Dec, Fibromyalgia M79.7 [place] [address] 37730- 9235 Dec, [place] [address] 34328- 3625 Dec, Fibromyalgia M79.[address] 33453- 1647 Nov, Foreign body in foot, left, initial encounter S90.[address] [id number] [place] [address] 77585- 8895 Nov, Viral gastroenteritis A08.[address] 68733- 4913 09 Nov, 2016 Fall, initial encounter W19.XXXA ; Post-traumatic headache, unspecified, not intractable G44.309 ; Dizziness R42 ; Unsteady gait R26.81 ; Sacral pain M53.3 and Non morbid obesity due to excess calories E66.[address] 89888- 5224 Nov, [address] [place] [address]- 5542 Nov, [place] [address] 40800- 5692 October, Non morbid obesity due to excess calories E66.09 and Hypertension, benign I10 [place] [address] 31744- 9645 October, Fibromyalgia M79.7 [place] [address] 07848- 1689 Sep, [place] [address] 99718- 0200 Sep, [place] [address] 42651- 6036 Sep, Eosinophilic colitis K52.82 [place] [address] 15708- 1779 Aug, Bronchitis J40 [place] [id number] [place] [address] 31439- 5293 Aug, [place] [address] 93094- 3894 Aug, Pain in left shoulder M25.512 ; Bronchitis J40 ; Acute midline back pain, unspecified location M54.9 ; Migraine without aura and without status migrainosus, not intractable G43.009 ; Fibromyalgia M79.7 and Pain of upper abdomen R10.10 [place] [id number] [place] [address] 29673- 6578 Aug, [place] [id number] [place] [address] 46430- 6242 Aug, [place] [id number] [place] [address] 48393- 4009 Jul, Other viral agents as the cause of diseases classified elsewhere B97.89 and Acute upper respiratory infection, unspecified J06.9 [place] [address] [place] [address]- 1167 Jun, [facility] [address] [address] Jun, [facility] [id number] [place] [address] 51471- 3202 May, [address]02.91 [facility] [id number] [place] [address] 45068- 4830 May, Acute midline low back pain without sciatica M54.5 [facility] [id number] [place] [address] 78179 -8766 May, [facility] [id number] [place] [address] 89097- 5438 Apr, [facility] [id number] [place] [address] 82533- 0009 Apr, Other chronic pain G89.29 ; Pain in right shoulder M25.511 and Pain in left shoulder M25.512 [facility] [id number] [place] [address] 25835- 5762 Apr, [facility] [id number] [place] [address] 52380- 2362 Apr, [facility] [id number] [place] [address] 19186- 7592 Apr, Fibromyalgia M79.7 ; Other chronic pain G89.29 and Pain in left shoulder M25.512 [facility] [address] [address]- 2870 Apr, Bron[address]itis J40 [facility] [id number] [place] [address] 46602- 7560 Mar, [facility] [id number] [address] Mar, [facility] [id number] [place] [address] 84716- 5118 Feb, [facility] [address], [place] [address]- 6338 [address], 2015 [facility] [id number] [place] [address] 40962- 0506 [address], 2015 [facility] [address] [address]- 8134 [address], [address] [facility] [id number] [place] [address] 34580- 2230 [address], [address] [facility] [address] [place] [address] 77161- 9013 [address], [address] [facility] [id number] [place] [address] 37243- 9419 19 Feb, [address] [facility] [address] [place] [address] 87788- 0123 19 Feb, [address] [facility] [address] [place] [address] 30607- 0623 [address], [address] [facility] [address] [place] [address] 63257- 1163 15 Feb, 2016 Migraine, unspecified, not intractable, without status migrainosus G43.[address] [facility] [address] [address]- 9138 06 Feb, 2016 Migraine without aura and without status migrainosus, not intractable G43.009 [facility] [address] [address]- 7916 Jan, [facility] [address] [place] [address] 71534- 5234 Jan, [facility] [address] [address] 3708 Jan, [facility] [address] [address]- 2300 Jan, [facility] [id number] [place] [address] 72939- 3998 Jan, Unsteady gait R26.81 ; Fibromyalgia M79.7 and Family history of rheumatoid arthritis Z82.61 [facility] [id number] [place] [address] 99758- 6423 Dec, [place] [address] 98647- 3604 Dec, [place] [address] 64653- 9040 Nov, Pain in left shoulder M25.512 [place] [address] 79814- 2681 October, Viral gastroenteritis A08.4 [facility] [address] 75620 -9030 October, Pain of upper abdomen R10.10 [place] [address] 40503- 7716 October, Acute midline back pain, unspecified location M54.9 [place] [address] 67787- 9149 Aug, Elbow pain, right M25.521 [place] [address] 90673- 8353 Aug, Elbow pain, right M25.521 [place] [address] 02021- 6948 Aug, Pain of right upper extremity M79.601 [place] [address] 07483- 1487 Jun, Lumbar neuritis M54.16 [place] [id number] [place] [address] 18265- 3332 May, [place] [address] 47238- 8949 Apr, Non morbid obesity due to excess calories E66.09 [facility] [address] 63375- 5851 Apr, Non morbid obesity due to excess calories E66.09 [address] neuritis M54.14 [facility] [address] 33036- 4754 Apr, Elbow pain, right M25.521 [facility] [address] 21039- 7778 Mar, Right elbow pain M25.521 [place] [address] 30140- 2158 Mar, [facility] [address] 26025- 3996 Feb, Urinary tract infection, site not specified 599.0 [place] [address] 79187- 4828 Feb, [facility] [address] 83378- 0401 Jan, Spider bite 989.5 [place] [address] 25186- 7808 Jan, Spider bite 989.5 [place] [address] 79939- 8550 Jan, Spider bite 989.5 [place] [address] 11267- 4064 10 Nov, 2014 Back pain 724.5 and Diabetes 250.00 [place] [address] 41010- 7906 Nov, Back pain 724.5 and Muscle spasm of back 724.8 [place] [address] 15361- 1845 02 Nov, 2014 Alternating constipation and diarrhea 787.99 [facility] [address] [id number] [address]- 9680 October, Back pain 724.5 and Hip pain 719.45 [facility] [address] [id number], [place] [address]- 7452 14 Sep, 2014 [facility] [address] [facility] [id number], [place] [address]- 8116 Sep, [facility] [address] [id number], [place] [address]- 5820 Aug, [facility] [id number] [place] [address] 82072- 9803 Aug, [facility] [address] [facility] [id number], [place] [address]- 9047 Aug, [facility] [id number] [address]- 1476 Aug, [facility] [address] [facility] [id number], [place] [address]- 4862 Aug, [facility] [id number] [address]- 5312 Aug, [facility] [address] [facility] [id number], [place] [address]- 2125 Jul, [facility] [address] [facility] [id number], [place] [address]- 9008 Jul, [facility] [address] [facility] [id number], [place] [address]- 3832 Jun, [facility] [address] [facility] [id number], [place] [address]- 2268 Jun, [facility] [address] [facility] [id number][place] [address]- 0626 Jun, [facility] [id number] [address]- 9715 Jun, [facility] [place] [facility] [address] [id number] [place] [address]- 2636 Jun, [facility] [place] [facility] [address] [id number] [place] [address]- 2381 Jun, [facility] [place] [facility] [address] [id number] [place] [address]- 6987 Jun, [facility] [place] [facility] [address] [id number] [place] 6479 May, [facility] [place] [facility] [address] [id number] [place] [address]- 5370 May, [facility] [place] [facility] [address] [id number] [place] [address]- 1499 May, [facility] [place] [facility] [address] [id number] [place] [address]- 6906 May, [facility] [place] [facility] [address] [id number] [place] [address]- 7054 Apr, [facility] [place] [facility] [address] [id number] [place] [address]- 8170 Apr, [facility] [place] [facility] [address] [id number] [place] [address]- 4843 Mar, [facility] [place] [facility] [address] [id number] [place] [address]- 2352 Mar, [facility] [place] [facility] [address] [id number] [place] [address]- 4559 Mar, [facility] [place] [facility] [address] [id number] [place] [address]- 9714 Mar, [facility] [place] [facility] [address] [id number] [place] [address]- 8732 Mar, [facility] [place] [facility] [address] [id number] [place] 8303 Mar, [facility] [place] [facility] [address] [id number] [place] [address]- 0353 Mar, [facility] [place] [facility] [address] [id number] [place] [address]- 2205 Mar, [facility] [place] [facility] [address] [id number] [place] [address]- 0675 Mar, [facility] [place] [facility] [address] [id number] [place] [address]- 7680 Mar, [facility] [place] [facility] [address] [id number] [place] [address]- 1021 Feb, [facility] [place] [facility] [address] [id number] [place] [address]- 3969 Feb, [facility] [place] [facility] [address] [id number] [place] [address]- 3608 Jan, [facility] [place] [facility] [address] [id number] [place] [address]- 2696 Jan, [facility] [place] [facility] [address] [id number] [place] [address]- 3259 Jan, [facility] [place] [facility] [address] [id number] [place] [address]- 9751 Jan, [facility] [place] [facility] [address] [id number] [place] [address]- 7290 Jan, [facility] [place] [facility] [address] [id number], [place] [address]- 3960 Jan, [facility] [place] [facility] [address] [id number], [place] [address]- 1157 Jan, [facility] [place] [facility] [address] [id number] [place] [address]- 6604 Jan, [facility] [place] [facility] [address] [id number] [place] [address]- 4615 Jan, [facility] [place] [facility] [address] [id number] [place] [address]- 4621 Jan, [facility] [place] [facility] [address] [id number] [place] [address]- 5492 Dec, [facility] [place] [facility] [address] [id number] [place] [address]- 3313 Dec, [facility] [place] [facility] [address] [id number] [place] [address]- 7797 Dec, [facility] [place] [facility] [address] [id number] [place] [address]- 3609 Dec, [facility] [place] [facility] [address] [id number] [place] [address]- 0367 Nov, [facility] [place] [facility] [address] [id number] [place] [address]- 0406 Nov, [facility] [place] [facility] [address] [id number] [place] [address]- 1540 Nov, [facility] [place] [facility] [address] [id number] [place] [address]- 9427 Nov, [facility] [place] [facility] [address] [id number] [place] [address]- 7692 October, [facility] [place] [facility] [address] [id number] [place] [address]- 2541 October, [facility] [place] [facility] [address] [id number] [place] [address]- 1628 Sep, [facility] [place] [facility] [address] [id number] [place] [address]- 2887 Sep, [facility] [place] [facility] [address] [id number] [place] [address]- 3205 Sep, [facility] [place] [facility] [address] [id number] [place] [address]- 7582 Sep, [facility] [place] [facility] [address] [id number] [place] [address]- 6582 Sep, [facility] [place] [facility] [address] [id number] [place] [address]- 0896 Sep, [facility] [place] [facility] [address] [id number] [place] [address]- 1896 Sep, [facility] [place] [facility] [address] [id number] [place] [address]- 7445 Sep, [facility] [place] [facility] [address] [id number] [place] 8676 Sep, [facility] [place] [facility] [address] [id number] [place] [address]- 5527 Sep, [facility] [place] [facility] [address] [id number] [place] [address]- 3395 Jul, [facility] [place] [facility] [address] [id number] [place] [address]- 1662 Jul, [facility] [place] [facility] [address] [id number] [place] [address]- 8493 Jul, [facility] [place] [facility] [address] [id number] [place] [address]- 7773 Jul, [facility] [place] [facility] [address] [id number] [place] [address]- 4991 Jun, [facility] [place] [facility] [address] [id number] [place] [address]- 8978 Jun, [facility] [place] [facility] [address] [id number] [place] [address]- 3340 Jun, [facility] [place] [facility] [address] [id number] [place] [address]- 9945 Jun, [facility] [place] [facility] [address] [id number] [place] [address]- 0400 Jun, [facility] [place] [facility] [address] [id number] [place] [address]- 3364 Jun, [facility] [place] [facility] [address] [id number] [place] [address] Apr, [facility] [place] [facility] [address] [id number] [place] [address] Apr, [facility] [place] [facility] [address] [id number] [place] [address] Apr, [facility] [place] [facility] [address] [id number] [place] [address] Apr, [facility] [place] [facility] [address] [id number] [place] [address] Apr, [facility] [place] [facility] [address] [id number] [place] [address] Apr, [facility] [place] [facility] [address] [id number] [place] [address] Apr, [facility] [place] [facility] [address] [id number] [place] [address] Apr, [facility] [place] [facility] [address] [id number] [place] [address] Mar, [facility] [place] [facility] [address] [id number] [place] [address] Mar, [facility] [place] [facility] [address] [id number] [place] [address] Feb, [facility] [place] [facility] [address] [id number] [place] [address] Feb, [facility] [place] [facility] [address] [id number] [place] [address] Dec, [facility] [place] [facility] [address] [id number] [address] Dec, [facility] [place] [facility] [address] [id number] [place] [address] Dec, [facility] [place] [facility] [address] [id number] [place] [address] Dec, [facility] [place] [facility] [address] [id number] [place] [address] Dec, [facility] [place] [facility] [address] [id number] [place] [address] Dec, [facility] [place] [facility] [address] [id number] [place] [address] Dec, [facility] [place] [facility] [address] [id number] [place] [address] Nov, [facility] [place] [facility] [address] [id number] [place] [address]- [address] Nov, [facility] [place] [facility] [address] [id number] [place] [address] Nov, [facility] [place] [facility] [address] [id number] [place] [address] Nov, [facility] [place] [facility] [address] [id number] [place] [address] October, [facility] [place] [facility] [address] [id number] [place] [address] October, [facility] [place] [facility] [address] [id number] [place] [address] October, [facility] [place] [facility] [address] [id number] [place] [address]- [address] October, [facility] [facility] [address] [id number] [place] [address] Sep, [facility] [place] [facility] [address] [id number] [place] [address] Aug, [facility] [place] [facility] [address] [id number] [place] [address] Aug, [facility] [place] [facility] [address] [id number] [place] [address] Aug, [facility] [place] [facility] [address] [id number] [place] [address] Aug, [facility] [place] [facility] [address] [id number] [place] [address] Aug, [facility] [address] [id number] [place] [address] Jul, [facility] [address] [id number] [place] [address] Jul, [facility] [address] [facility] [id number] [place] [address] Jul, [facility] [address] [id number] [place] [address] Jul, [facility] [address] [id number] [place] [address] Jul, [facility] [address] [facility] [id number] [place] [address] 23 Jul, 2012 [facility] [address] [id number] [place] [address] 20 Jul, 2012 [facility] [address] [facility] [id number] [place] [address] 15 Jul, 2012 [facility] [address] [facility] [id number] [place] [address] 14 Jul, 2012 [facility] [address] [facility] [id number] [place] [address] Jul, [facility] [address] [facility] [id number] [place] [address] Jun, [facility] [address] [id number] [place] [address] Jun, [facility] [address] [facility] [id number] [place] [address] Jun, [facility] [address] [facility] [id number] [place] May, [facility] [address] [facility] [id number] [address] May, [facility] [place] [facility] [address] [id number] [place] [address] Apr, [facility] [place] [facility] [address] [id number] [place] [address] Apr, [facility] [place] [facility] [address] [id number] [place] [address] Apr, [facility] [place] [facility] [address] [id number] [place] [address], [place] [address] Apr, [facility] [place] [facility] [address] [id number] [place] [address] 69[address] Apr, [facility] [place] [facility] [address] [id number] [place] [address] Apr, [facility] [place] [facility] [address] [id number] [place] [address] Apr, [facility] [place] [facility] [address] [id number] [place] [address] Apr, [facility] [place] [facility] [address] [id number] [place] [address] Mar, [facility] [place] [facility] [address] [id number] [place] [address] 31 Mar, 2012 [facility] [place] [facility] [address] [id number] [place] [address] 70[address] Mar, [facility] [place] [facility] [address] [id number] [place] [address] 31 Mar, 2012 [facility] [place] [facility] [address] [id number] [place] [address] 8216 15 Mar, 2012 [facility] [place] [facility] [address] [id number] [place] [address] 15 Mar, 2012 [facility] [place] [facility] [address] [id number] [place] [address]167 11 Mar, 2012 [facility] [place] [facility] [address] [id number] [place] [address] 9[address] Mar, [facility] [place] [facility] [address] [id number] [place] [address] 2546 Mar, [facility] [place] [facility] [address] [id number] [place] [address] Feb, [facility] [place] [facility] [address] [id number] [place] [address] Jan, [facility] [place] [facility] [address] [id number] [place] [address] Jan, [facility] [place] [facility] [address] [id number] [place] [address] Jan, [facility] [place] [facility] [address] [id number] [place] [address] 4226 Dec, [facility] [place] [facility] [address] [id number] [place] [address] 59[address] Dec, [facility] [place] [facility] [address] [id number] [place] [address] Dec, [facility] [place] [facility] [address] [id number] [place] [address] 6[address] Nov, [facility] [place] [facility] [address] [id number] [place] [address] 25[address] October, [facility] [place] [facility] [address] [id number] [place] [address] October, [facility] [place] [facility] [address] [id number] [place] [address] 25[address] October, [facility] [place] [facility] [address] [id number] [place] [address] 25[address] October, [facility] [place] [facility] [address] [id number] [place] [address] October, [facility] [place] [facility] [address] [id number] [place] [address] 25[address] Sep, [facility] [place] [facility] [address] [id number] [place] [address] 44[address] 23 Sep, 2011 [facility] [address] [id number] [place] [address] 13 Sep, 2011 [facility] [address] [id number] [place] [address] 8[address] 12 Sep, 2011 [facility] [address] [id number] [place] [address] 2466 12 Sep, 2011 [facility] [address] [id number] [place] [address] 6[address] 11 Sep, 2011 [facility] [address] [id number] [place] [address] 6[address] 11 Sep, 2011 [facility] [address] [id number] [place] [address] 5[address] 28 Aug, 2011 [facility] [address] [id number] [place] [address] 2392 23 Aug, 2011 [facility] [address] [id number] [place] [address] 8149 21 Aug, 2011 [facility] [address] [id number] [place] [address] 7[address] 21 Aug, 2011 [facility] [address] [id number] [place] [address] 3139 20 Aug, 2011 [facility] [address] [id number] [place] [address] 2546 19 Aug, 2011 [facility] [address] [id number] [place] [address] 2546 16 Aug, 2011 [facility] [place] [facility] [address] [id number] [place] [address] 15 Aug, 2011 [facility] [address] [id number] [place] [address] 2546 15 Aug, 2011 [facility] [address] [id number] [place] [address]- 4394 14 Aug, 2011 [facility] [address] [id number] [place] [address] Aug, [facility] [place] [facility] [address] [id number] [place] [address]- 3566 08 Aug, 2011 [facility] [place] [facility] [address] [id number] [place] [address] 7106 15 Jul, 2011 [facility] [place] [facility] [address] [id number] [place] [address]- 5296 15 Jul, 2011 [facility] [place] [facility] [address] [id number] [place] [address]- 7572 14 Jul, 2011 [facility] [place] [facility] [address] [id number] [place] [address]- 0936 06 Jul, 2011 [facility] [place] [facility] [address] [id number] [place] [address]- 2086 Jul, [facility] [place] [facility] [address] [id number] [place] [address]- 4206 Jun, [facility] [place] [facility] [address] [id number] [place] [address] 5004 Jun, [facility] [place] [facility] [address] [id number] [place] [address]- 8636 Jun, [facility] [place] [facility] [address] [id number] [place] [address]- 9946 29 May, 2011 [facility] [place] [facility] [address] [id number] [place] [address]- 5166 May, [facility] [place] [facility] [address] [id number] [place] [address]- 3074 May, [facility] [place] [facility] [address] [id number] [place] [address]- 3716 May, [facility] [place] [facility] [address] [id number] [place] [address]- 5540 14 May, 2011 [facility] [place] [facility] [address] [id number] [place] [address]- 9110 16 Apr, 2011 [facility] [place] [facility] [address] [id number] [place] [address]- 9323 16 Apr, 2011 [facility] [place] [facility] [address] [id number] [place] [address]- 0396 15 Apr, 2011 [facility] [place] [facility] [address] [id number] [place] [address]- 0530 14 Apr, 2011 [facility] [place] [facility] [address] [id number] [place] [address]- 1836 25 Mar, 2011 [facility] [place] [facility] [address] [id number] [place] [address]- 0294 24 Mar, 2011 [facility] [place] [facility] [address] [id number] [place] [address]- 7962 19 Mar, 2011 [facility] [place] [facility] [address] [id number] [place] [address]- 2185 19 Mar, 2011 [facility] [place] [facility] [address] [id number] [place] [address]- 3661 17 Mar, 2011 [facility] [place] [facility] [address] [id number] [place] [address]- 8838 17 Mar, 2011 [facility] [place] [facility] [address] [facility] [id number] [place] [address]- 5799 16 Feb, 2011 [facility] [place] [facility] [address] [id number] [place] [address]- 3730 10 Nov, 2010 [facility] [place] [facility] [address] [id number] [place] [address]- 3853 17 Aug, 2010 [facility] [place] [facility] [address] [id number] [place] [address]- 8003 11 Apr, 2010 [facility] [place] [facility] [address] [id number] [place] [address]- 6636 16 Mar, 2010 [facility] [place] [facility] [address] [id number], [place] [address] Apr, [facility] [address] [facility] [id number] [place] [address] Apr, [facility] [address] [facility] [id number], [place] [address] Sep, [facility] [address] [facility] [id number] [place] [address] Mar, IMMUNIZATIONS No Known Immunizations SOCIAL HISTORY Never Assessed REASON FOR VISIT Repository Medication PLAN OF CARE VITAL SIGNS MEDICATIONS Medication Instructions Dosage Frequency Start Date End Date Duration Status Crestor 10 mg Orally Once a day 1 tablet 24h 16 Feb, 2014 Active RESULTS No Results PROCEDURES No Known [...]
--- OUTSIDE RECORDS SUMMARY | 2018-06-19 13:36 | XMS REPORT ---
Author Author ARISTEO ARAYA [facility] Address [address] [place] [address] Care Team Providers Care Oyster Opener Name Role Phone ARISTEO ARAYA Unavailable PROBLEMS Type Condition ICD9-CM Code [id number] Code Onset Dates Condition Status SNOMED Code Problem Fibromyalgia M79.7 Active 760798351 Problem Migraine without aura and without status migrainosus, not intractable G43.009 Active 057383616 Problem Unsteady gait R26.81 Active 85422713 Problem Eosinophilic colitis K52.82 Active 97979515 Problem Bronchitis J40 Active 85028447 Problem Other chronic pain G89.29 Active 29998336 Problem Non morbid obesity due to excess calories E66.09 Active 029886108 Problem Hypertension, benign I10 Active 51243106 ALLERGIES Unknown Allergies SOCIAL HISTORY No smoking Hx information available PLAN OF CARE VITAL SIGNS MEDICATIONS Medication Instructions Dosage Frequency Start Date End Date Duration Status Zofran 8 MG Orally 3 times a day, voucher 1 tablet Jun, Active RESULTS No Results PROCEDURES No Known procedures IMMUNIZATIONS No Known Immunizations
--- OUTSIDE RECORDS SUMMARY | 2018-06-19 13:36 | XMS REPORT ---
Author Author STANFORD CAAL [facility] Address [address] [place] [address] Care Team Providers Care Postpartum Rn Name Role Phone STANFORD CAAL Unavailable PROBLEMS Type Condition ICD9-CM Code EXP47-UE Code Onset Dates Condition Status SNOMED Code Problem Fibromyalgia M79.7 Active 809678862 Problem Migraine without aura and without status migrainosus, not intractable G43.009 Active 499150844 Problem Unsteady gait R26.81 Active 66003461 Problem Eosinophilic colitis K52.82 Active 63412720 Problem Bronchitis J40 Active 03327391 Problem Other chronic pain G89.29 Active 33041473 Problem Non morbid obesity due to excess calories E66.09 Active 145018141 Problem Hypertension, benign I10 Active 24581375 ALLERGIES Unknown Allergies SOCIAL HISTORY No smoking Hx information available PLAN OF CARE VITAL SIGNS Height 63 in 2016-06-11 Weight 200.0 lbs 2016-06-11 Temperature 97.4 degrees Fahrenheit 2016-06-11 Heart Rate 80 bpm 2016-06-11 Respiratory Rate 18 2016-06-11 BMI 35.42 kg/m2 2016-06-11 Blood pressure systolic 128 mmHg 2016-06-11 Blood pressure diastolic 90 mmHg 2016-06-11 MEDICATIONS Medication Instructions Dosage Frequency Start Date End Date Duration Status Nexium 40 mg Orally Once a day 1 capsule 24h Apr, 90 days Active Metformin HCl 1000 MG Orally Twice a day 1 tablet with meals 12h 10 Nov, 2014 30 day(s) Active Bactrim DS 800-160 MG Orally Twice a day 1 tablet 12h May, Jun, 10 day(s) Active Crestor 10 mg Orally Once a day 1 tablet 24h 16 Feb, 2014 90 days Active Lyrica 100 MG Orally 3 times a day 1 capsule by Oral route 3 times per day for fibromyalgia (729.1) 8h Mar, 30 days Active Neurontin 300 MG Orally Three times a day, voucher 1st fill only as directed Jun, Active Walker Premium Wheels - with bench seat. DX: fibromyalgia, unsteady gait as directed Jan, Active Fetzima 80 MG take 1 capsules by Oral route at approximately the same time each day 1 time per day Jul, Active Mccoy 5-325 MG Orally every 6 hrs 1 tablet as needed 6h October, Active Chlorzoxazone 500 MG Orally 2 times a day 1 tablet 12h Nov, Active Pantoprazole Sodium 40 mg Orally Once a day 1 tablet 24h Apr, 90 days Active Amitriptyline HCl 100 MG Orally Once a day, hs 1 tablet Feb, Active Abilify 2 MG Orally Once a day 1 tablet 24h Active Flector 1.3 % Transdermal Twice a day 1 patch to skin 12h Apr, Active Advair Diskus 250-50 mcg/dose 1 puffs by Inhalation route 2 times per day Feb, 90 days Active Diclofenac Sodium 75 MG Orally Twice a day, voucher 1st fill 1 tablet with food or milk Apr, Sep, 30 day(s) Active Nexium 40 mg Orally Once a day 1 packet mixed with 15 ml of water 24h Apr, 90 days Active Micardis 20 mg 1 tablet by Oral route 1 time per day Jun, Active Cymbalta 60 MG Orally Once a day 1 capsule 24h Active Zofran 8 MG Orally Once a day 1 tablet 24h October, Active RESULTS No Results PROCEDURES No Known procedures IMMUNIZATIONS No Known Immunizations
--- OUTSIDE RECORDS SUMMARY | 2018-06-19 13:37 | XMS REPORT ---
Author Author ARISTEO ARAYA Organization [facility] Address [address] [place] [address] Care Team Providers Care Prison Keeper Name Role Phone ARISTEO ARAYA Unavailable PROBLEMS Type Condition ICD9-CM Code WPI33-GU Code Onset Dates Condition Status SNOMED Code Problem Non morbid obesity due to excess calories E66.09 Active 151833030 Problem Unsteady gait R26.81 Active 21736154 Problem Eosinophilic colitis K52.82 Active 66985089 Problem Acute right-sided low back pain with right-sided sciatica M54.41 Active 410071151 Problem Paresthesias in left hand R20.2 Active 809710875 Problem Non morbid obesity E66.9 Active 047151302 Problem Other chronic gastritis without hemorrhage K29.50 Active 2831100 Problem GERD with esophagitis K21.0 Active 204176092 Problem Sacral pain M53.3 Active 29513522 Problem Fibromyalgia M79.7 Active 500132348 Problem Other chronic pain G89.29 Active 89069715 Problem Bronchitis J40 Active 87394339 Problem Migraine without aura and without status migrainosus, not intractable G43.009 Active 084480109 Problem Hypertension, benign I10 Active 89680125 ALLERGIES Substance Reaction Event Type Date Status Singulair Unknown Drug Allergy May, Active Lisinopril Unknown Drug Allergy May, Active metals Unknown Non Drug Allergy May, Active ENCOUNTERS Encounter Location Date Diagnosis [facility] [address] [facility] [id number] [address] Dec, [facility] [address] [id number] [address] Nov, [facility] [address] [id number] [address] Nov, BMI 40.0-44.9, adult Z68.41 ; Leg edema R60.0 and Hypertension, benign I10 [place] [id number] [place] [address] 99490- 3687 Nov, [facility] [address] [address]- [address] October, Thoracic neuritis M54.14 [place] [address] 11246- 9197 October, Acute right hip pain M25.551 [place] [address] 34983- 2119 October, [place] [address] 37611- 2407 Sep, Hypertension, benign I10 and Acute right-sided low back pain with right-sided sciatica M54.41 [place] [address] 10097- 4951 Sep, Fibromyalgia M79.7 and Hypertension, benign I10 [place] [id number] [place] [address] 44824- 6310 Aug, [place] [address] 22113- 5991 Aug, Fibromyalgia M79.7 ; Frequent headaches R51 and Non morbid obesity due to excess calories E66.09 [place] [id number] [place] [address] 02427- 5501 Jul, [place] [id number] [place] [address] 74545- 9133 Jul, Fibromyalgia M79.7 [place] [id number] [place] [address] 74979- 6199 Jul, Viral gastroenteritis A08.4 and Paresthesias in left hand R20.2 [place] [id number] [place] [address] 67942- 2950 Jun, Non morbid obesity due to excess calories E66.09 [place] [id number] [place] [address] 23158- 0140 Jun, [place] [address] 23112- 1644 Jun, Fibromyalgia M79.7 [place] [address] 33040- 7547 May, Non morbid obesity due to excess calories E66.09 and Hypertension, benign I10 [place] [address] 90985- 7563 04 May, 2017 GERD with esophagitis K21.[address] [address]- 4503 Apr, BMI 40.0-44.9, adult Z68.41 and Non morbid obesity E66.[address] 14464- 9792 Mar, Unsteady gait R26.81 [place] [address] 34915- 0961 Mar, Unsteady gait R26.81 ; Sacral pain M53.3 and Fibromyalgia M79.7 [place] [id number] [place] [address] 84930- 2057 Mar, Non morbid obesity due to excess calories E66.09 [place] [address] 38451- 0988 28 Feb, 2017 Abdominal pain, generalized R10.[address] 43008- 0081 18 Feb, 2017 Other chronic gastritis without hemorrhage K29.50 and H. pylori infection A04.8 [place] [id number] [place] [address] 82280- 0556 07 Feb, 2017 Back pain 724.5 ; Pain in left shoulder M25.512 ; Fibromyalgia M79.7 and Non morbid obesity due to excess calories E66.09 [place] [id number] [place] [address] 74834- 0322 07 Feb, 2017 BMI 40.0-44.9, adult Z68.41 [place] [id number] [place] [address] 78499- 3406 14 Jan, 2017 Dysuria R30.0 and Acute cystitis with hematuria N30.01 [place] [address] 94609- 1179 Jan, Dysuria R30.0 [place] [address] 84011- 6822 Dec, Fibromyalgia M79.7 [place] [address] 00571- 2220 Dec, Screening for diabetes mellitus Z13.1 and Fibromyalgia M79.7 [place] [address] 62342- 2517 Dec, Fibromyalgia M79.7 [place] [id number] [place] [address] 56459- 2602 Dec, [place] [id number] [place] [address] 87159- 4613 Dec, Fibromyalgia M79.7 [place] [id number] [place] [address] 78930- 1247 Nov, Foreign body in foot, left, initial encounter S90.852A [place] [id number] [place] [address] 21964- 3677 16 Nov, 2016 Viral gastroenteritis A08.[address] 11357- 7265 09 Nov, 2016 Fall, initial encounter W19.XXXA ; Post-traumatic headache, unspecified, not intractable G44.309 ; Dizziness R42 ; Unsteady gait R26.81 ; Sacral pain M53.3 and Non morbid obesity due to excess calories E66.09 [place] [id number] [place] [address] 96369- 6698 Nov, [facility] [id number] [place] [address] 75914- 2236 Nov, [facility] [id number] [place] [address] 19442- 3156 October, Non morbid obesity due to excess calories E66.09 and Hypertension, benign I10 [place] [address] 14712- 0649 October, Fibromyalgia M79.7 [facility] [id number] [place] [address] 14448- 5029 Sep, [place] [address] 76948- 1625 Sep, [place] [address] 07913- 0082 Sep, Eosinophilic colitis K52.82 [facility] [id number] [place] [address] 38595- 5036 Aug, Bronchitis J40 [place] [id number] [place] [address] 20419- 5810 Aug, [facility] [id number] [place] [address] 47434- 1898 Aug, Pain in left shoulder M25.512 ; Bronchitis J40 ; Acute midline back pain, unspecified location M54.9 ; Migraine without aura and without status migrainosus, not intractable G43.009 ; Fibromyalgia M79.7 and Pain of upper abdomen R10.10 [place] [id number] [place] [address] 12445- 8715 Aug, [facility] [id number] [place] [address] 71375- 4387 Aug, [facility] [id number] [place] [address] 39220- 7364 09 Feb, 2017 Other viral agents as the cause of diseases classified elsewhere B97.89 and Acute upper respiratory infection, unspecified J06.9 [facility] [id number] [place] [address] 59306- 6564 Jun, [facility] [id number] [place] [address] 23806 -5251 Jun, [facility] [id number] [place] [address] 25168- 8348 May, Abscess L02.91 [facility] [id number] [place] [address] 18345- 8565 May, Acute midline low back pain without sciatica M54.5 [facility] [id number] [place] [address] 44139 -5475 May, [place] [id number] [place] [address] 77166- 3376 Apr, [facility] [id number] [place] [address] 01371- 8130 Apr, Other chronic pain G89.29 ; Pain in right shoulder M25.511 and Pain in left shoulder M25.512 [place] [id number] [place] [address] 40070- 5778 Apr, [place] [id number] [place] [address] 00506- 8077 Apr, [place] [id number] [place] [address] 08386- 1135 Apr, Fibromyalgia M79.7 ; Other chronic pain G89.29 and Pain in left shoulder M25.512 [place] [id number] [place] [address] 40109- 5970 Apr, Bronchitis J40 [place] [id number] [place] [address] 15282- 8619 Mar, [facility] [address] [id number] Mar, [facility] [address], [place] [address]- 3076 29 Feb, 2015 [facility] [id number] [place] [address] 94595- 7728 26 Feb, 2015 [facility] [id number] [place] [address] 56102- 3705 23 Feb, 2015 [facility] [id number] [place] [address] 64376- 2020 22 Feb, 2015 [facility] [id number] [place] [address] 47388- 1871 20 Feb, 2015 [facility] [id number] [place] [address] 82729- 2882 19 Feb, 2015 [facility] [id number] [place] [address] 12242- 5418 19 Feb, 2015 Dysuria R30.0 [facility] [id number] [place] [address] 61362- 7569 19 Feb, 2015 Dysuria R30.0 [facility] [id number] [place] [address] 64349- 1243 16 Feb, 2016 [facility] [id number] [place] [address] 25107- 8473 15 Feb, 2016 Migraine, unspecified, not intractable, without status migrainosus G43.909 and Fibromyalgia M79.7 [facility] [id number] [place] [address] 90759- 5560 06 Feb, 2016 Migraine without aura and without status migrainosus, not intractable G43.009 [facility] [id number] [place] [address] 90302- 4160 Jan, [facility] [id number] [place] [address] 36668- 7645 Jan, [facility] [id number] [place] [address] 10165- 9116 Jan, [facility] [id number] [place] [address] 04508- 7248 Jan, [facility] [address] 95014- 7900 Jan, Unsteady gait R26.81 ; Fibromyalgia M79.7 and Family history of rheumatoid arthritis Z82.61 [place] [address] 46486- 2746 Dec, [facility] [id number] [place] [address] 43504- 3405 Dec, [place] [address] 60256- 1069 Nov, Pain in left shoulder M25.512 [place] [address] 39842- 2137 October, Viral gastroenteritis A08.4 [facility] [id number] [place] [address] 18134 -5364 October, Pain of upper abdomen R10.10 [place] [address] 69508- 8077 October, Acute midline back pain, unspecified location M54.9 [place] [id number] [place] [address] 02732- 4613 Aug, Elbow pain, right M25.521 [place] [id number] [place] [address] 34699- 3176 Aug, Elbow pain, right M25.521 [place] [address] 59558- 4571 Aug, Pain of right upper extremity M79.601 [facility] [id number] [place] [address] 18992- 1533 Jun, Lumbar neuritis M54.16 [place] [address] 40836- 9728 May, [facility] [id number] [place] [address] 09401- 5467 Apr, Non morbid obesity due to excess calories E66.09 [facility] [id number] [place] [address] 78101- 1336 Apr, Non morbid obesity due to excess calories E66.09 and Thoracic neuritis M54.14 [facility] [id number] [place] [address] 00260- 2433 Apr, Elbow pain, right M25.521 [facility] [address] 88640- 6930 Mar, Right elbow pain M25.521 [facility] [id number] [place] [address] 02647- 1468 Mar, [facility] [id number] [place] [address] 19580- 2934 Feb, Urinary tract infection, site not specified 599.0 [facility] [id number] [place] [address] 16375- 6397 Feb, [facility] [id number] [place] [address] 30365- 2800 Jan, Spider bite 989.5 [facility] [id number] [place] [address] 50701- 1363 Jan, Spider bite 989.5 [facility] [id number] [place] [address] 28943- 9418 Jan, Spider bite 989.5 [facility] [id number] [place] [address] 07327- 1799 Nov, Back pain 724.5 and Diabetes 250.00 [facility] [id number] [place] [address] 75301- 9307 Nov, Back pain 724.5 and Muscle spasm of back 724.8 [facility] [address], [place] [address]- 2817 Nov, Alternating constipation and diarrhea 787.99 [facility] [id number] [address]- 2295 October, Back pain 724.5 and Hip pain 719.45 [facility] [id number] [place] [address] 42894- 9646 Sep, [facility] [id number] [place] [address] 62677- 9532 Sep, [facility] [id number] [place] [address] 60188- 8234 Aug, [facility] [id number] [address]- 3710 Aug, [facility] [id number] [place] [address] 66177- 4748 Aug, [facility] [address], [place] [address]- 3931 Aug, [facility] [id number] [place] [address]- 1526 Aug, [facility] [address], [place] [address]- 2994 Aug, [facility] [address], [place] [address]- 2666 Jul, [facility] [address], [place] [address]- 4291 Jul, [facility] [address], [place] [address]- 2555 Jun, [facility] [id number] 0029 Jun, [facility] [address], [place] [address]- 1606 Jun, [facility] [place] [facility] [address] [id number] [place] [address]- 6468 15 Jun, 2014 [facility] [place] [facility] [address] [id number] [place] [address]- 9487 Jun, [facility] [place] [facility] [address] [id number] [place] [address]- 4756 Jun, [facility] [place] [facility] [address] [id number] [place] [address]- 8208 Jun, [facility] [place] [facility] [address] [id number] [place] [address]- 7727 May, [facility] [place] [facility] [address] [id number] [place] [address]- 0380 May, [facility] [place] [facility] [address] [id number] [place] [address]- 6115 May, [facility] [place] [facility] [address] [id number] [place] [address]- 9719 May, [facility] [place] [facility] [address] [id number] [place] [address]- 6771 Apr, [facility] [place] [facility] [address] [id number] [place] [address]- 6850 Apr, [facility] [place] [facility] [address] [id number] [place] [address]- 4836 Mar, [facility] [place] [facility] [address] [id number], [place] [address]- 4380 Mar, [facility] [place] [facility] [address] [id number] [place] [address]- 9869 Mar, [facility] [place] [facility] [address] [id number] [place] [address]- 7275 Mar, [facility] [place] [facility] [address] [id number] 1754 Mar, [facility] [place] [facility] [address] [id number], [place] [address]- 7951 Mar, [facility] [place] [facility] [address] [id number] [place] [address]- 1915 Mar, [facility] [place] [facility] [address] [id number] [place] [address]- 7812 Mar, [facility] [place] [facility] [address] [id number] [place] [address]- 8915 Mar, [facility] [place] [facility] [address] [id number] [place] [address]- 4877 Mar, [facility] [place] [facility] [address] [id number] [place] [address]- 3531 Feb, [facility] [place] [facility] [address] [id number] [place] [address]- 9042 Feb, [facility] [place] [facility] [address] [id number] [place] [address]- 1015 Jan, [facility] [place] [facility] [address] [id number] [place] [address]- 9565 Jan, [facility] [place] [facility] [address] [id number] [place] [address]- 3300 Jan, [facility] [place] [facility] [address] [id number] [place] [address]- 1658 Jan, [facility] [place] [facility] [address] [id number] [place] [address]- 3428 Jan, [facility] [place] [facility] [address] [id number] [place] [address]- 4562 Jan, [facility] [place] [facility] [address] [id number] [place] [address]- 3823 Jan, [facility] [place] [facility] [address] [id number] [place] [address]- 1071 Jan, [facility] [place] [facility] [address] [id number] [place] [address]- 6046 Jan, [facility] [place] [facility] [address] [id number] [place] [address]- 3486 Jan, [facility] [place] [facility] [address] [id number] [place] [address]- 1221 Dec, [facility] [place] [facility] [address] [id number] [address]- 9936 Dec, [facility] [place] [facility] [address] [id number] [place] [address]- 1016 Dec, [facility] [place] [facility] [address] [id number] [place] [address]- 2207 Dec, [facility] [place] [facility] [address] [id number] [place] [address]- 7323 Nov, [facility] [place] [facility] [address] [id number] [place] [address]- 7165 Nov, [facility] [place] [facility] [address] [id number] [place] [address]- 5840 Nov, [facility] [place] [facility] [address] [id number] [place] [address]- 7185 Nov, [facility] [place] [facility] [address] [id number] [place] [address]- 0114 October, [facility] [place] [facility] [address] [id number] [place] [address]- 2771 October, [facility] [place] [facility] [address] [id number] [place] [address]- 7945 Sep, [facility] [place] [facility] [address] [id number] [place] [address]- 1341 Sep, [facility] [place] [facility] [address] [id number] [place] [address]- 7779 Sep, [facility] [place] [facility] [address] [id number] [place] [address]- 0406 Sep, [facility] [place] [facility] [address] [id number] [place] [address]- 9671 Sep, [facility] [place] [facility] [address] [id number] [place] [address]- 3033 Sep, [facility] [place] [facility] [address] [id number] [place] [address]- 5011 Sep, [facility] [place] [facility] [address] [id number] [place] [address]- 6400 Sep, [facility] [place] [facility] [address] [id number] [place] [address]- 1736 Sep, [facility] [place] [facility] [address] [id number] [place] [address]- 5043 Sep, [facility] [place] [facility] [address] [id number] [place] [address]- 5552 Jul, [facility] [place] [facility] [address] [id number] [place] [address]- 9589 Jul, [facility] [place] [facility] [address] [id number] [place] [address]- 1996 Jul, [facility] [place] [facility] [address] [id number] [place] [address] Jul, [facility] [place] [facility] [address] [id number] [place] [address] Jun, [facility] [place] [facility] [address] [id number] [place] [address] Jun, [facility] [place] [facility] [address] [id number] [place] [address] Jun, [facility] [place] [facility] [address] [id number] [place] [address] Jun, [facility] [place] [facility] [address] [id number] [place] [address] Jun, [facility] [place] [facility] [address] [id number] [place] [address] Jun, [facility] [place] [facility] [address] [id number] [place] [address] Apr, [facility] [address] [id number] [place] [address] Apr, [facility] [address] [id number] [place] [address] Apr, [facility] [address] [id number] [place] [address] Apr, [facility] [address] [id number] [place] [address] Apr, [facility] [address] [id number] [place] [address] Apr, [facility] [address] [id number] [place] [address] Apr, [facility] [address] [id number] [place] [address] Apr, [facility] [address] [id number] [place] [address] Mar, [facility] [address] [id number] [place] [address] Mar, [facility] [address] [id number] [place] [address] Feb, [facility] [place] [facility] [address] [id number] [place] [address] Feb, [facility] [place] [facility] [address] [id number] [place] [address] Dec, [facility] [place] [facility] [address] [id number] [place] [address] Dec, [facility] [place] [facility] [address] [id number] [place] [address] Dec, [facility] [place] [facility] [address] [id number] [place] [address]- [address] Dec, [facility] [place] [facility] [address] [id number] [place] [address] Dec, [facility] [place] [facility] [address] [id number] [place] [address] Dec, [facility] [place] [facility] [address] [id number] [place] [address] Dec, [facility] [place] [facility] [address] [id number] [place] [address]- [address] Nov, [facility] [address] [id number] [place] [address] Nov, [facility] [place] [facility] [address] [id number] [place] [address] Nov, [facility] [address] [id number] [place] [address] Nov, [facility] [place] [facility] [address] [id number] [place] [address] 1993 October, [facility] [place] [facility] [address] [id number] [place] [address] October, [facility] [place] [facility] [address] [id number] [place] [address] October, [facility] [place] [facility] [address] [id number] [place] [address] October, [facility] [place] [facility] [address] [id number] [place] [address] Sep, [facility] [place] [facility] [address] [id number] [place] [address] Aug, [facility] [place] [facility] [address] [id number] [place] [address] Aug, [facility] [place] [facility] [address] [id number] [place] [address] Aug, [facility] [place] [facility] [address] [id number] [place] [address] Aug, [facility] [address] [id number] [place] [address] Aug, [facility] [address] [id number] [place] [address] Jul, [facility] [address] [id number] [place] [address] Jul, [facility] [address] [id number] [place] [address] Jul, [facility] [address] [address] [id number] [place] [address] Jul, [facility] [address] [id number] [place] [address] Jul, [facility] [address] [id number] [place] [address] Jul, [facility] [address] [id number] [place] [address] 20 Jul, 2012 [facility] [address] [id number] [place] [address] 15 Jul, 2012 [facility] [address] [facility] [id number] [place] [address] 14 Jul, 2012 [facility] [address] [id number] [place] [address] Jul, [facility] [address] [id number] [place] [address] 2544 Jun, [facility] [place] [facility] [address] [id number] [place] [address] Jun, [facility] [place] [facility] [address] [id number] [place] [address] Jun, [facility] [address] [id number] [place] [address] May, [facility] [place] [facility] [address] [id number] [place] [address] May, [facility] [place] [facility] [address] [id number] [place] [address] Apr, [facility] [place] [facility] [address] [id number] [place] [address] Apr, [facility] [place] [facility] [address] [id number] [place] [address] Apr, [facility] [place] [facility] [address] [id number] [place] [address] Apr, [facility] [place] [facility] [address] [id number] [place] [address] Apr, [facility] [place] [facility] [address] [id number] [place] [address] 236[address] Apr, [facility] [place] [facility] [address] [id number], [place] [address] Apr, [facility] [place] [facility] [address] [id number], [place] [address] Apr, [facility] [place] [facility] [address] [facility] [id number], [place] [address] Mar, [facility] [place] [facility] [address] [id number], [place] [address] Mar, [facility] [place] [facility] [address] [id number], [place] [address] 31 Mar, 2012 [facility] [place] [facility] [address] [id number], [place] [address] 31 Mar, 2012 [facility] [place] [facility] [address] [id number], [place] [address] 15 Mar, 2012 [facility] [place] [facility] [address] [facility] [id number], [place] [address] 15 Mar, 2012 [facility] [place] [facility] [address] [id number], [place] [address] Mar, [facility] [place] [facility] [address] [id number] [place] [address] Mar, [facility] [place] [facility] [address] [id number] [place] [address] 44[address] Mar, [facility] [place] [facility] [address] [id number] [place] [address] Feb, [facility] [place] [facility] [address] [id number] [place] [address] Jan, [facility] [place] [facility] [address] [id number] [place] [address] Jan, [facility] [place] [facility] [address] [id number] [place] [address] Jan, [facility] [address] [id number] [place] [address] Dec, [facility] [place] [facility] [address] [id number] [place] [address] Dec, [facility] [place] [facility] [address] [id number] [place] [address]647 Dec, [facility] [place] [facility] [address] [facility] [id number] [place] [address] Nov, [facility] [place] [facility] [address] [id number] [place] [address] 89[address] October, [facility] [place] [facility] [address] [id number] [place] [address] October, [facility] [place] [facility] [address] [id number] [place] [address] October, [facility] [place] [facility] [address] [facility] [id number] [place] [address] 8686 October, [facility] [place] [facility] [address] [facility] [id number] [place] [address] October, [facility] [place] [facility] [address] [id number] [place] [address] 30 Sep, 2011 [facility] [place] [facility] [address] [id number] [place] [address]- 3316 23 Sep, 2011 [facility] [place] [facility] [address] [id number] [place] [address] 2546 13 Sep, 2011 [facility] [place] [facility] [address] [id number] [place] [address]- 59[address] 12 Sep, 2011 [facility] [place] [facility] [address] [id number] [place] [address] 2546 12 Sep, 2011 [facility] [place] [facility] [address] [id number] [place] [address]296 11 Sep, 2011 [facility] [place] [facility] [address] [id number] [place] [address]- 1119 11 Sep, 2011 [facility] [place] [facility] [address] [id number] [place] [address]- [address] 28 Aug, 2011 [facility] [place] [facility] [address] [id number] [place] [address]- 9440 23 Aug, 2011 [facility] [place] [facility] [address] [id number] [place] [address]- 5356 21 Aug, 2011 [facility] [place] [facility] [address] [id number] [place] [address]- [address]90 21 Aug, 2011 [facility] [place] [facility] [address] [id number] [place] [address]- 8266 20 Aug, 2011 [facility] [place] [facility] [address] [id number] [place] [address] 2546 19 Aug, 2011 [facility] [place] [facility] [address] [id number] [place] [address] 2546 16 Aug, 2011 [facility] [place] [facility] [address] [id number] [place] [address] 2546 15 Aug, 2011 [facility] [place] [facility] [address] [id number] [place] [address]- 2086 15 Aug, 2011 [facility] [place] [facility] [address] [id number] [place] [address]- 7810 14 Aug, 2011 [facility] [place] [facility] [address] [id number] [place] [address]- [address]996 Aug, [facility] [place] [facility] [address] [id number] [place] [address]- 0299 08 Aug, 2011 [facility] [place] [facility] [address] [id number] [place] [address]- 0896 15 Jul, 2011 [facility] [place] [facility] [address] [id number] [place] [address]- 8912 15 Jul, 2011 [facility] [place] [facility] [address] [id number] [place] [address]- 2197 14 Jul, 2011 [facility] [place] [facility] [address] [id number] [place] [address]- 0978 Jul, [facility] [place] [facility] [address] [id number] [place] [address]- [address] Jul, [facility] [place] [facility] [address] [id number] [place] [address]- [address] Jun, [facility] [place] [facility] [address] [id number] [place] [address]- 3420 Jun, [facility] [place] [facility] [address] [id number] [place] [address]- 6691 Jun, [facility] [place] [facility] [address] [id number] [place] [address]- 9256 May, [facility] [place] [facility] [address] [id number] [place] [address]- 7702 May, [facility] [place] [facility] [address] [id number] [place] [address]- 7527 May, [facility] [place] [facility] [address] [id number] [place] [address]- 6353 May, [facility] [place] [facility] [address] [id number] [place] [address]- 3120 14 May, 2011 [facility] [place] [facility] [address] [id number] [place] [address]- 8998 16 Apr, 2011 [facility] [place] [facility] [address] [id number] [place] [address]- 3771 16 Apr, 2011 [facility] [place] [facility] [address] [id number] [place] [address]- 6195 15 Apr, 2011 [facility] [place] [facility] [address] [id number] [place] [address]- 3830 14 Apr, 2011 [facility] [place] [facility] [address] [id number] [place] [address] 25 Mar, 2011 [facility] [place] [facility] [address] [id number] [place] [address]- 4452 24 Mar, 2011 [facility] [place] [facility] [address] [id number] [place] [address]- 3733 19 Mar, 2011 [facility] [place] [facility] [address] [id number] [place] [address]- 3731 19 Mar, 2011 [facility] [place] [facility] [address] [id number] [place] [address]- 9461 17 Mar, 2011 [facility] [place] [facility] [address] [id number] [place] [address]- 0333 17 Mar, 2011 [facility] [place] [facility] [address] [id number] [place] [address]- 2615 16 Feb, 2011 [facility] [place] [facility] [address] [id number] [place] [address]- [address] 10 Nov, 2010 [facility] [place] [facility] [address] [id number] [place] [address]- 5409 17 Aug, 2010 [facility] [place] [facility] [address] [id number] [place] [address]- 9884 11 Apr, 2010 [facility] [place] [facility] [address] [id number] [place] [address]- 3840 Mar, [facility] [address] [facility] [id number], [place] [address]- [address] Apr, [facility] [address] [facility] [id number], [place] [address]- 2356 Apr, [facility] [address] [facility] [id number], [place] [address]- 3071 Sep, [facility] [address] [facility] [id number], [place] [address]- 24[address] Mar, IMMUNIZATIONS No Known Immunizations SOCIAL HISTORY Never Assessed REASON FOR VISIT Stomach ache for a month--Mónica Soto MA PLAN OF CARE VITAL SIGNS Height 63 in 2017-05-11 Weight 226.7 lbs 2017-05-11 Temperature 98.4 degrees Fahrenheit 2017-05-11 Heart Rate 82 bpm 2017-05-11 Respiratory Rate 20 2017-05-11 BMI 40.15 kg/m2 2017-05-11 Blood pressure systolic 128 mmHg 2017-05-11 Blood pressure diastolic 88 mmHg 2017-05-11 MEDICATIONS Medication Instructions Dosage Frequency Start Date End Date Duration Status Mirtazapine 15 MG Orally Once a day 1 tablet at bedtime 24h Active Lyrica 150 MG Orally 3 times a day 1 capsule 8h Mar, 90 days Active Metformin HCl 1000 MG Orally Twice a day 1 tablet with meals 12h Nov, 30 day(s) Active Cymbalta 60 MG Orally Once a day 1 capsule 24h Active Proventil HFA 108 (90 Base) MCG/ACT Inhalation every 4 hrs 2 puffs as needed 4h Aug, Active Crestor 10 mg Orally Once a day 1 tablet 24h Feb, 90 days Active Zofran ODT 4 MG Orally every 8 hrs 1 tablet on the tongue and allow to dissolve 8h Feb, Active Wheelchair 1 use as needed for acitivity assistance Nov, Active Albuterol Sulfate (2.5 MG/3ML) 0.083% Inhalation Three times a day 3 ml 8h Aug, Active Glucocard Expression Monitor w/Device as directed Aug, Active Pantoprazole Sodium 40 mg Orally Once a day, voucher 1st fill 1 tablet May, 30 day(s) Active Micardis 20 mg Orally Once a day 1 tablet by Oral route 1 time per day 24h 15 Jun, 2014 90 days Active Sumatriptan Succinate 100 mg Orally Once a day,voucher 1 tablet as needed Aug, Not-Taking Glucocard Expression Test - test blood sugar Aug, Active Seroquel XR 150 MG Orally Once a day 1 tablet in the evening 24h Active Omeprazole 20 mg Orally Once a day, voucher 1st fill 1 capsule Feb, 30 day(s) Active Propranolol HCl 40 mg Orally Twice a day 1 tablet 12h October, 30 days Active Walker [place] Wheels - with bench seat. DX: fibromyalgia, [...]
--- OUTSIDE RECORDS SUMMARY | 2018-06-19 13:37 | XMS REPORT ---
Author Author ELLE MERCADO [facility] Address [address] [place] [address] Care Team Providers Care Insurance Law Specialist Name Role Phone ELLE MERCADO Unavailable PROBLEMS Type Condition ICD9-CM Code BHT86-AO Code Onset Dates Condition Status SNOMED Code Problem Other chronic pain G89.29 Active 68272710 Problem Migraine without aura and without status migrainosus, not intractable G43.009 Active 353395462 Problem Unsteady gait R26.81 Active 60362697 Problem Eosinophilic colitis K52.82 Active 21539059 Problem Bronchitis J40 Active 29444626 Problem Fibromyalgia M79.7 Active 327598146 Problem Non morbid obesity due to excess calories E66.09 Active 237446547 Problem Hypertension, benign I10 Active 85049763 ALLERGIES Substance Reaction Event Type Date Status Singulair Unknown Drug Allergy May, Active Lisinopril Unknown Drug Allergy May, Active metals Unknown Non Drug Allergy May, Active SOCIAL HISTORY No smoking Hx information available PLAN OF CARE Activity Details Follow Up 2 - 3 Days Reason:abscess VITAL SIGNS Height 63 in 2016-06-02 Weight 206.2 lbs 2016-06-02 Temperature 98.8 degrees Fahrenheit 2016-06-02 Heart Rate 80 bpm 2016-06-02 Respiratory Rate 20 2016-06-02 BMI 36.52 kg/m2 2016-06-02 Blood pressure systolic 126 mmHg 2016-06-02 Blood pressure diastolic 94 mmHg 2016-06-02 MEDICATIONS Medication Instructions Dosage Frequency Start Date End Date Duration Status Nexium 40 mg Orally Once a day 1 capsule 24h Apr, 90 days Active Abilify 2 MG Orally Once a day 1 tablet 24h Active Micardis 20 mg 1 tablet by Oral route 1 time per day Jun, Active Diclofenac Sodium 75 MG Orally Twice a day, voucher 1st fill 1 tablet with food or milk Apr, Sep, 30 day(s) Active Metformin HCl 1000 MG Orally Twice a day 1 tablet with meals 12h 10 Nov, 2014 30 day(s) Active Walker [place] Wheels - with bench seat. DX: fibromyalgia, unsteady gait as directed Jan, Active Lyrica 100 MG Orally 3 times a day 1 capsule by Oral route 3 times per day for fibromyalgia (729.1) 8h Mar, 30 days Active Crestor 10 mg Orally Once a day 1 tablet 24h Feb, 90 days Active Bactrim DS 800-160 MG Orally Twice a day 1 tablet 12h May, Jun, 10 day(s) Active Advair Diskus 250-50 mcg/dose 1 puffs by Inhalation route 2 times per day Feb, 90 days Active Cymbalta 60 MG Orally Once a day 1 capsule 24h Active RESULTS No Results PROCEDURES Procedure Date Ordered Related Diagnosis Body Site Office Visit, Est Pt., Level 3 Jun 02, 2016 IMMUNIZATIONS No Known Immunizations
--- OUTSIDE RECORDS SUMMARY | 2018-06-19 13:37 | XMS REPORT ---
Author Author ARISTEO ARAYA Organization [facility] Address [address] [place] [address] Care Team Providers Care [employer] Operator Name Role Phone ARISTEO ARAYA Unavailable PROBLEMS Type Condition ICD9-CM Code RIM54-CI Code Onset Dates Condition Status SNOMED Code Problem Hypertension, benign I10 Active 35660564 Problem Eosinophilic colitis K52.82 Active 27266114 Problem Non morbid obesity due to excess calories E66.09 Active 046342897 Problem Migraine without aura and without status migrainosus, not intractable G43.009 Active 569201655 Problem Fibromyalgia M79.7 Active 857298718 Problem Other chronic pain G89.29 Active 50955676 Problem Bronchitis J40 Active 20111381 Problem Paresthesias in left hand R20.2 Active 466203779 Problem GERD with esophagitis K21.0 Active 639099837 Problem Other chronic gastritis without hemorrhage K29.50 Active 3746057 Problem Unsteady gait R26.81 Active 26818118 Problem Sacral pain M53.3 Active 13959230 Problem Non morbid obesity E66.9 Active 998104426 ALLERGIES No Information ENCOUNTERS Encounter Location Date Diagnosis [place] [address] [address]- [address] Sep, [facility] [address] [place] [id number] [place] [address] 60106- 8938 Aug, [place] [address] [place] [id number] [place] [address] 57737- 5596 Aug, Fibromyalgia M79.7 ; Frequent headaches R51 and Non morbid obesity due to excess calories E66.09 [facility] [address] [place] [id number] [place] [address] 43323- 4719 Jul, [place] [address] 65713- 4044 Jul, Fibromyalgia M79.7 [place] [address] 07921- 6073 Jul, Viral gastroenteritis A08.4 and Paresthesias in left hand R20.2 [place] [address] 54706- 2789 Jun, Non morbid obesity due to excess calories E66.09 [place] [address] 41909- 4905 Jun, [place] [address] 90274- 8348 Jun, Fibromyalgia M79.7 [place] [address] 69096- 2427 May, Non morbid obesity due to excess calories E66.09 and Hypertension, benign I10 [address] 20659- 6223 May, GERD with esophagitis K21.[address] 69049- 0030 Apr, BMI 40.0-44.9, adult Z68.41 and Non morbid obesity E66.[address] 50840- 7393 Mar, Unsteady gait R26.81 [place] [address] 56862- 0356 Mar, Unsteady gait R26.81 ; Sacral pain M53.3 and Fibromyalgia M79.[address] 69586- 7197 Mar, Non morbid obesity due to excess calories E66.09 [place] [address] 25971- 6779 Feb, Abdominal pain, generalized R10.84 [place] [address] [place] [id number] [place] [address] 00709- 5925 18 Feb, 2017 Other chronic gastritis without hemorrhage K29.50 and H. pylori infection A04.8 [place] [address] 85496- 3726 07 Feb, 2017 Back pain 724.5 ; Pain in left shoulder M25.512 ; Fibromyalgia M79.7 and Non morbid obesity due to excess calories E66.09 [place] [address] 50425- 8944 07 Feb, 2017 BMI 40.0-44.9, adult Z68.[address] 20644- 5699 14 Jan, 2017 Dysuria R30.0 and Acute cystitis with hematuria N30.[address] 46794- 9294 Jan, Dysuria R30.0 [place] [address] 19455- 6352 Dec, Fibromyalgia M79.[address] 60918- 3596 Dec, Screening for diabetes mellitus Z13.1 and Fibromyalgia M79.[address] 84449- 8231 Dec, Fibromyalgia M79.7 [place] [address] 29529- 3040 Dec, [place] [address] 54517- 1345 Dec, Fibromyalgia M79.7 [place] [address] 44525- 2894 Nov, Foreign body in foot, left, initial encounter S90.852A [place] [address] 26488- 3968 Nov, Viral gastroenteritis A08.4 [place] [address] [place] [id number] [place] [address] 26534- 3418 Nov, Fall, initial encounter W19.XXXA ; Post-traumatic headache, unspecified, not intractable G44.309 ; Dizziness R42 ; Unsteady gait R26.81 ; Sacral pain M53.3 and Non morbid obesity due to excess calories E66.09 [place] [address] 31971- 4943 Nov, [place] [address] 03751- 2036 Nov, [place] [address] 85438- 1725 October, Non morbid obesity due to excess calories E66.09 and Hypertension, benign I10 [address] 79247- 4555 October, Fibromyalgia M79.7 [place] [address] 46308- 7049 Sep, [place] [address] 21654- 6025 Sep, [place] [address] 18635- 8090 Sep, Eosinophilic colitis K52.82 [place] [address] 72969- 5346 Aug, Bronchitis J40 [place] [address] [place] [id number] [place] [address] 65405- 9653 Aug, [place] [address] 82052- 2200 Aug, Pain in left shoulder M25.512 ; Bronchitis J40 ; Acute midline back pain, unspecified location M54.9 ; Migraine without aura and without status migrainosus, not intractable G43.009 ; Fibromyalgia M79.7 and Pain of upper abdomen R10.10 [facility] [address] [address]- 8059 Aug, [facility] [address] [place] [id number] [place] [address] 59223- 9246 Aug, [facility] [address] [place] [id number] [place] [address] 42989- 4777 Jul, Other viral agents as the cause of diseases classified elsewhere B97.89 and Acute upper respiratory infection, unspecified J06.9 [facility] [address] [place] [id number] [place] [address] 50119- 6240 Jun, [facility] [address] [place] [address] [id number] [place] [address] 65634 -9750 Jun, [facility] [address] [place] [id number] [place] [address] 58742- 4155 May, Abscess L02.91 [facility] [address] [place] [id number] [place] [address] 70132- 7211 May, Acute midline low back pain without sciatica M54.5 [facility] [address] [place] [address] [id number] [place] [address] 74389 -7773 May, [facility] [address] [place] [id number] [place] [address] 97424- 4819 Apr, [facility] [address] [place] [id number] [place] [address] 45967- 6352 Apr, Other chronic pain G89.29 ; Pain in right shoulder M25.511 and Pain in left shoulder M25.512 [place] [address] [place] [id number] [place] [address] 87319- 1093 Apr, [facility] [address] [place] [id number] [place] [address] 46382- 4211 Apr, [facility] [address] [place] [id number] [place] [address] 86381- 0860 Apr, Fibromyalgia M79.7 ; Other chronic pain G89.29 and Pain in left shoulder M25.512 [facility] [id number] [place] [address] 42378 2546 Apr, Bronchitis J40 [facility] [address] [place] [address] [id number] [place] [address] 25799 2548 27 Mar, [address] [facility] [address] [place] [id number] [place] [address] [id number] Mar, [facility] [address] [place] [id number] [place] [address] 32932 2540 29 Feb, 2015 [facility] [address] [place] [address] [id number] [place] [address] 33276 2546 26 Feb, 2016 [facility] [address] [place] [address] [id number] [place] [address] 17819 2542 23 Feb, 2016 [facility] [address] [place] [address] [id number] [place] [address] 36221- 2757 22 Feb, 2016 [facility] [address] [place] [id number] [place] [address] 67833 2543 20 Feb, 2015 [facility] [address] [place] [id number] [place] [address] 99022 2545 19 Feb, 2015 [facility] [address] [place] [id number] [place] [address] 34777 2540 19 Feb, 2015 Dysuria R30.0 [facility] [address] [place] [id number] [place] [address] 89135 2548 19 Feb, 2015 Dysuria R30.0 [facility] [id number] [place] [address] 74274 2546 16 Feb, 2015 [facility] [address] [place] [id number] [place] [address] 97193 2543 15 Feb, 2016 Migraine, unspecified, not intractable, without status migrainosus G43.909 and Fibromyalgia M79.7 [facility] [address] [place] [id number] [place] [address] 12916- 2549 06 Feb, 2016 Migraine without aura and without status migrainosus, not intractable G43.009 [facility] [address] [place] [address] [id number] [place] [address] 40336- 0446 Jan, [facility] [address] [place] [id number] [place] [address] 89977- 6415 Jan, [facility] [address] [place] [id number] [place] [address] 91511- 4054 Jan, [facility] [address] 63336- 1616 Jan, [facility] [address] [place] [id number] [place] [address] 55043- 2074 Jan, Unsteady gait R26.81 ; Fibromyalgia M79.7 and Family history of rheumatoid arthritis Z82.61 [place] [address] [place] [id number] [place] [address] 89243- 6692 Dec, [place] [address] 08057- 9945 Dec, [facility] [address] [place] [id number] [place] [address] 03751- 7571 Nov, Pain in left shoulder M25.512 [place] [address] [place] [id number] [place] [address] 64667- 4288 October, Viral gastroenteritis A08.4 [facility] [id number] [place] [address] 20933 -3400 October, Pain of upper abdomen R10.10 [facility] [address] [place] [id number] [place] [address] 15808- 9235 October, Acute midline back pain, unspecified location M54.9 [facility] [address] [place] [id number] [place] [address] 42402- 4331 Aug, Elbow pain, right M25.521 [place] [address] [place] [id number] [place] [address] 94518- 4898 Aug, Elbow pain, right M25.521 [facility] [address] [place] [id number] [place] [address] 80775- 1968 Aug, Pain of right upper extremity M79.601 [facility] [address] 53870- 4518 Jun, Lumbar neuritis M54.16 [place] [address] 93408- 7009 May, [place] [address] 05843- 5812 Apr, Non morbid obesity due to excess calories E66.09 [place] [address] 39015- 2596 Apr, Non morbid obesity due to excess calories E66.09 and Thoracic neuritis M54.14 [place] [address] 29369- 7450 Apr, Elbow pain, right M25.521 [place] [address] 44330- 2497 Mar, Right elbow pain M25.521 [place] [address] 34284- 3876 Mar, [place] [address] [place] [id number] [place] [address] 37913- 0803 Feb, Urinary tract infection, site not specified 599.0 [place] [address] [place] [id number] [place] [address] 59837- 0549 Feb, [place] [address] 59000- 2478 Jan, Spider bite 989.5 [place] [address] 78180- 2559 Jan, Spider bite 989.5 [place] [address] 25800- 3153 Jan, Spider bite 989.5 [facility] [address] [place] [id number] [place] [address] 55574- 7539 10 Nov, 2014 Back pain 724.5 and Diabetes 250.00 [facility] [address] [place] [address] [id number] [place] [address] 36411- 3966 Nov, Back pain 724.5 and Muscle spasm of back 724.8 [facility] [address] 06682- 4406 Nov, Alternating constipation and diarrhea 787.99 [facility] [address] 02203- 3792 October, Back pain 724.5 and Hip pain 719.45 [facility] [address] [place] [id number] [place] [address] 61787- 5143 Sep, [facility] [address] 91774- 4151 Sep, [facility] [address] [place] [id number] [place] [address] 46046- 9341 Aug, [facility] [address] [place] [id number] [place] [address] 26924- 3703 Aug, [facility] [address] [id number] [place] [address] 37535- 5253 Aug, [facility] [address] [id number] [place] [address] 65777- 0137 Aug, [facility] [id number] [place] [address] 89108- 5650 Aug, [facility] [id number] [place] [address] 70662- 5102 Aug, [facility] [id number] [place] [address] 55521- 8291 Jul, [facility] [address] 23036- 5490 Jul, [facility] [place] [facility] [address] [id number] [place] [address]- 1991 Jun, [facility] [place] [facility] [address] [id number] [place] [address]- 8862 Jun, [facility] [place] [facility] [address] [id number] [place] [address]- 4368 Jun, [facility] [place] [facility] [address] [id number] [place] [address]- 2951 Jun, [facility] [place] [facility] [address] [id number] [place] [address]- 7933 Jun, [facility] [place] [facility] [address] [id number] [place] [address]- 4165 Jun, [facility] [place] [facility] [address] [id number] [place] [address]- 9076 Jun, [facility] [place] [facility] [address] [id number] [place] [address]- 2045 May, [facility] [place] [facility] [address] [id number] [place] [address]- 4563 May, [facility] [place] [facility] [address] [id number] [place] [address]- 3442 May, [facility] [place] [facility] [address] [id number] [place] [address]- 2373 May, [facility] [place] [facility] [address] [id number], [place] [address]- 5688 Apr, [facility] [place] [facility] [address] [id number] [place] [address]- 1438 Apr, [facility] [place] [facility] [address] [id number] [place] [address]- 3104 Mar, [facility] [place] [facility] [address] [id number] [place] [address]- 3674 Mar, [facility] [place] [facility] [address] [id number] [place] [address]- 8419 Mar, [facility] [place] [facility] [address] [id number] [place] [address]- 1841 Mar, [facility] [place] [facility] [address] [id number] [place] [address]- 2209 Mar, [facility] [place] [facility] [address] [id number] [place] [address]- 2443 Mar, [facility] [place] [facility] [address] [id number] [place] [address]- 3792 Mar, [facility] [place] [facility] [address] [id number] [place] [address]- 3684 Mar, [facility] [place] [facility] [address] [id number] [place] [address]- 7398 Mar, [facility] [place] [facility] [address] [id number] [place] [address]- 2565 Mar, [facility] [place] [facility] [address] [id number] [place] [address]- 6551 Feb, [facility] [place] [facility] [address] [id number] [place] [address]- 8128 Feb, [facility] [place] [facility] [address] [id number] [place] [address]- 5763 Jan, [facility] [place] [facility] [address] [id number] [place] [address]- 6489 Jan, [facility] [place] [facility] [address] [id number] [place] [address]- 0537 Jan, [facility] [place] [facility] [address] [id number] [place] [address]- 4739 Jan, [facility] [place] [facility] [address] [id number] [place] [address]- 0101 Jan, [facility] [place] [facility] [address] [id number] [place] [address]- 5539 Jan, [facility] [place] [facility] [address] [id number] [place] [address]- 9413 Jan, [facility] [place] [facility] [address] [id number] [place] [address]- 6586 Jan, [facility] [place] [facility] [address] [id number] [place] [address]- 9340 Jan, [facility] [place] [facility] [address] [id number] [place] [address]- 5542 Jan, [facility] [place] [facility] [address] [id number] [place] [address]- 8759 Dec, [facility] [place] [facility] [address] [id number] [place] [address]- 6441 Dec, [facility] [place] [facility] [address] [id number] [place] [address]- 3043 Dec, [facility] [place] [facility] [address] [id number] [place] [address]- 3690 Dec, [facility] [place] [facility] [address] [id number] [place] [address]- 6101 Nov, [facility] [place] [facility] [address] [id number] [place] [address]- 9521 Nov, [facility] [place] [facility] [address] [id number] [place] [address]- 5205 Nov, [facility] [place] [facility] [address] [id number] [place] [address]- 4630 Nov, [facility] [place] [facility] [address] [id number] [place] [address]- 7230 October, [facility] [place] [facility] [address] [id number] [place] [address]- 0848 October, [facility] [place] [facility] [address] [id number] [place] 8715 Sep, [facility] [place] [facility] [address] [id number] [place] [address]- 9435 14 Sep, 2013 [facility] [place] [facility] [address] [id number] [place] [address]- 4398 Sep, [facility] [place] [facility] [address] [id number] [place] [address]- 7671 Sep, [facility] [place] [facility] [address] [id number] [place] [address]- 8299 Sep, [facility] [place] [facility] [address] [id number] [place] [address]- 1052 Sep, [facility] [place] [facility] [address] [id number] [place] [address]- 4802 Sep, [facility] [place] [facility] [address] [id number] [place] [address]- 7532 Sep, [facility] [place] [facility] [address] [id number] [place] [address]- 5835 Sep, [facility] [place] [facility] [address] [id number] [place] [address]- 3848 Sep, [facility] [place] [facility] [address] [id number] [place] [address]- 1867 Jul, [facility] [place] [facility] [address] [id number] [place] [address]- 0538 Jul, [facility] [place] [facility] [address] [id number] [place] [address]- 3421 Jul, [facility] [place] [facility] [address] [id number] [place] [address]- 1640 Jul, [facility] [place] [facility] [address] [id number] [place] [address]- 0072 Jun, [facility] [place] [facility] [address] [id number] [place] [address]- 6086 Jun, [facility] [place] [facility] [address] [id number] [place] [address]- 0451 Jun, [facility] [place] [facility] [address] [id number] [place] [address]- 0241 15 Jun, 2013 [facility] [place] [facility] [address] [id number] [place] [address]- 9458 Jun, [facility] [place] [facility] [address] [id number] [place] [address]- 6724 Jun, [facility] [place] [facility] [address] [id number] [place] [address]- 2580 Apr, [facility] [address] [id number] [place] [address]- 7178 Apr, [facility] [place] [facility] [address] [id number] [place] [address]- 6394 Apr, [facility] [address] [id number] [place] [address]- 3908 Apr, [facility] [address] [id number] [place] [address]- 0325 Apr, [facility] [place] [facility] [address] [id number] [place] [address]- 1232 Apr, [facility] [place] [facility] [address] [id number] [place] [address]- 3846 Apr, [facility] [place] [facility] [address] [id number] [place] [address]- 2841 Apr, [facility] [place] [facility] [address] [id number], [place] [address]- 3137 Mar, [facility] [place] [facility] [address] [id number] [place] [address]- 5361 Mar, [facility] [place] [facility] [address] [id number] [place] [address]- 4249 Feb, [facility] [place] [facility] [address] [id number] [place] [address]- 8342 Feb, [facility] [place] [facility] [address] [id number], [place] [address]- 7679 Dec, [facility] [address] [id number] [place] [address] Dec, [facility] [address] [id number] [place] [address] Dec, [facility] [place] [facility] [address] [id number] [place] [address] Dec, [facility] [place] [facility] [address] [id number] [place] [address] Dec, [facility] [place] [facility] [address] [id number] [place] [address] Dec, [facility] [place] [facility] [address] [id number] [place] [address] Dec, [facility] [place] [facility] [address] [id number] [place] [address] Nov, [facility] [place] [facility] [address] [id number] [place] [address] Nov, [facility] [place] [facility] [address] [id number] [place] [address] Nov, [facility] [place] [facility] [address] [id number] [place] [address] Nov, [facility] [place] [facility] [address] [id number] [place] [address] October, [facility] [address] [id number] [place] [address] October, [facility] [facility] [address] [id number] [place] [address] October, [facility] [facility] [address] [id number] [place] [address] October, [facility] [address] [id number] [place] [address] Sep, [facility] [facility] [address] [id number] [place] [address] 30 Aug, 2012 [facility] [address] [id number] [place] [address] 29 Aug, 2012 [facility] [address] [id number] [place] [address] 22 Aug, 2012 [facility] [address] [id number] [place] [address] 21 Aug, 2012 [facility] [address] [id number] [place] [address]- [address] 13 Aug, 2012 [facility] [address] [id number] [place] [address] 27 Jul, 2012 [facility] [address] [facility] [id number] [place] [address] 27 Jul, 2012 [facility] [address] [id number] [place] [address] 26 Jul, 2012 [facility] [address] [id number] [place] [address] 25 Jul, 2012 [facility] [address] [facility] [id number] [place] [address] 25 Jul, 2012 [facility] [address] [facility] [id number] [place] [address] 23 Jul, 2012 [facility] [address] [facility] [id number], [place] [address] 20 Jul, 2012 [facility] [address] [id number] [place] [address] 15 Jul, 2012 [facility] [address] [id number] [place] [address]- [address] 14 Jul, 2012 [facility] [address] [facility] [id number] [place] [address]- [address] 11 Jul, 2012 [facility] [address] [facility] [id number], [place] [address] Jun, [facility] [address] [id number] [place] [address] Jun, [facility] [address] [id number] [place] [address] Jun, [facility] [address] [facility] [id number] [place] [address] May, [facility] [facility] [address] [id number] [place] [address] May, [facility] [place] [facility] [address] [id number] [place] [address] Apr, [facility] [address] [id number] [place] [address] Apr, [facility] [id number] [place] [address] Apr, [facility] [address] [id number] [place] [address] Apr, [facility] [address] [facility] [id number] [place] [address] Apr, [facility] [address] [facility] [facility] [id number] [place] [address] Apr, [facility] [place] [facility] [address] [id number], [place] [address] Apr, [facility] [place] [facility] [address] [id number], [place] [address] Apr, [facility] [place] [facility] [address] [id number], [place] [address] Mar, [facility] [place] [facility] [address] [facility] [id number] [place] [address] Mar, [facility] [place] [facility] [address] [facility] [id number], [place] [address] Mar, [facility] [place] [facility] [address] [id number] [place] [address] Mar, [facility] [place] [facility] [address] [id number] [place] [address] Mar, [facility] [place] [facility] [address] [id number] [place] [address] 2546 Mar, [facility] [place] [facility] [address] [id number] [place] [address] Mar, [facility] [place] [facility] [address] [id number] [place] [address] Mar, [facility] [place] [facility] [address] [id number] [place] [address] Mar, [facility] [place] [facility] [address] [id number] [place] [address] Feb, [facility] [place] [facility] [address] [id number] [place] [address] Jan, [facility] [place] [facility] [address] [id number] [place] [address] Jan, [facility] [place] [facility] [address] [id number] [place] [address] Jan, [facility] [place] [facility] [address] [id number] [place] [address] Dec, [facility] [place] [facility] [address] [id number] [place] [address] Dec, [facility] [place] [facility] [address] [id number] [place] [address] Dec, [facility] [place] [facility] [address] [id number] [place] [address] Nov, [facility] [place] [facility] [address] [id number] [place] [address] October, [facility] [place] [facility] [address] [id number] [place] [address] October, [facility] [address] [id number] [place] [address] 1699 October, [facility] [place] [facility] [address] [id number] [place] [address] October, [facility] [place] [facility] [address] [id number] [place] [address] 1568 October, [facility] [place] [facility] [address] [id number] [place] [address] 30 Sep, 2011 [facility] [place] [facility] [address] [id number] [place] [address] Sep, [facility] [place] [facility] [address] [id number] [place] [address] Sep, [facility] [place] [facility] [address] [id number] [place] [address]- [address] Sep, [facility] [place] [facility] [address] [id number] [place] [address] 4[address] Sep, [facility] [place] [facility] [address] [id number] [place] [address] 8417 Sep, [facility] [place] [facility] [address] [id number] [place] [address] Sep, [facility] [place] [facility] [address] [id number] [place] [address] 12[address] Aug, [facility] [place] [facility] [address] [id number] [place] [address] Aug, [facility] [place] [facility] [address] [id number] [place] [address] Aug, [facility] [place] [facility] [address] [id number] [place] [address] 7467 Aug, [facility] [place] [facility] [address] [id number] [place] [address] 8735 Aug, [facility] [place] [facility] [address] [id number] [place] [address] 4[address] 19 Aug, 2011 [facility] [address] [id number] [place] [address] 8026 16 Aug, 2011 [facility] [place] [facility] [address] [id number] [place] [address]- 7066 15 Aug, 2011 [facility] [place] [facility] [address] [id number] [place] [address]- 0416 15 Aug, 2011 [facility] [place] [facility] [address] [id number] [place] [address]- 9151 14 Aug, 2011 [facility] [address] [id number] [place] [address]- 376[address] 12 Aug, 2011 [facility] [place] [facility] [address] [id number] [place] [address]- [address] 08 Aug, 2011 [facility] [address] [id number] [place] [address] 15 Jul, 2011 [facility] [place] [facility] [address] [id number] [place] [address]- 4973 15 Jul, 2011 [facility] [place] [facility] [address] [id number] [place] [address]- 67[address] 14 Jul, 2011 [facility] [address] [facility] [id number] [place] [address]- 135[address] 06 Jul, 2011 [facility] [place] [facility] [address] [id number] [place] [address]- 9696 02 Jul, 2011 [facility] [place] [facility] [address] [id number] [place] [address]- 3273 Jun, [facility] [place] [facility] [address] [id number] [place] [address] 1176 Jun, [facility] [place] [facility] [address] [id number] [place] [address]- [address] Jun, [facility] [place] [facility] [address] [facility] [id number] [place] [address] May, [facility] [place] [facility] [address] [id number] [place] [address]- 9562 May, [facility] [place] [facility] [address] [id number] [place] [address] 30[address] May, [facility] [place] [facility] [address] [id number] [place] [address]- 0596 May, [facility] [place] [facility] [address] [id number] [place] [address]- 1[address] May, [facility] [place] [facility] [address] [id number] [place] [address]- 4171 Apr, [facility] [place] [facility] [address] [id number] [place] [address]- 8[address] 16 Apr, 2011 [facility] [place] [facility] [address] [id number] [place] [address]- 1140 15 Apr, 2011 [facility] [place] [facility] [address] [id number], [place] [address] 14 Apr, 2011 [facility] [place] [facility] [address] [id number] [place] [address]- 2175 25 Mar, 2011 [facility] [place] [facility] [address] [id number], [place] [address] 24 Mar, 2011 [facility] [place] [facility] [address] [id number], [place] [address] Mar, [facility] [place] [facility] [address] [id number], [place] [address] 19 Mar, 2011 [facility] [place] [facility] [address] [id number], [place] [address] 17 Mar, 2011 [facility] [place] [facility] [address] [id number], [place] [address] 17 Mar, 2011 [facility] [place] [facility] [address] [id number], [place] [address] 6843 16 Feb, 2011 [facility] [place] [facility] [address] [id number], [place] [address] 10 Nov, 2010 [facility] [address] [id number], [place] [address] 17 Aug, 2010 [facility] [address] [id number], [place] [address] Apr, [facility] [address] [id number], [place] [address] Mar, [facility] [address] [id number], [place] [address]- [address]41 Apr, [facility] [address] [id number], [place] [address] Apr, [facility] [address] [id number], [place] [address]- 0681 Sep, [facility] [address] [id number], [place] [address] Mar, IMMUNIZATIONS No Known Immunizations SOCIAL HISTORY [...]
--- OUTSIDE RECORDS SUMMARY | 2018-06-19 13:38 | XMS REPORT ---
Author Author ARISTEO ARAYA Organization [facility] Address [address] [place] [address] Care Team Providers Care Cooky Packer Name Role Phone ARISTEO ARAYA Unavailable PROBLEMS Type Condition ICD9-CM Code [id number] Code Onset Dates Condition Status SNOMED Code Problem Non morbid obesity due to excess calories E66.09 Active 269249964 Problem Unsteady gait R26.81 Active 70231049 Problem Eosinophilic colitis K52.82 Active 86385597 Problem Acute right-sided low back pain with right-sided sciatica M54.41 Active 368265792 Problem Paresthesias in left hand R20.2 Active 455697509 Problem Non morbid obesity E66.9 Active 810226494 Problem Other chronic gastritis without hemorrhage K29.50 Active 5871074 Problem GERD with esophagitis K21.0 Active 236601188 Problem Sacral pain M53.3 Active 39196642 Problem Fibromyalgia M79.7 Active 443583752 Problem Other chronic pain G89.29 Active 68009264 Problem Bronchitis J40 Active 17094982 Problem Migraine without aura and without status migrainosus, not intractable G43.009 Active 527618045 Problem Hypertension, benign I10 Active 85585940 ALLERGIES Substance Reaction Event Type Date Status Singulair Unknown Drug Allergy Feb, Active Lisinopril Unknown Drug Allergy Feb, Active metals Unknown Non Drug Allergy Feb, Active ENCOUNTERS Encounter Location Date Diagnosis [facility] [address] [address] Sep, Hypertension, benign I10 and Acute right-sided low back pain with right-sided sciatica M54.41 [facility] [address], [place] [address] Sep, Fibromyalgia M79.7 and Hypertension, benign I10 [facility] [address] [place] [address] 64313- 3307 Aug, [place] [address] [address] Aug, Fibromyalgia M79.7 ; Frequent headaches R51 and Non morbid obesity due to excess calories E66.09 [place] [address] 91823- 7439 Jul, [place] [address] 27177- 8239 Jul, Fibromyalgia M79.7 [place] [address] 71581- 7727 Jul, Viral gastroenteritis A08.4 and Paresthesias in left hand R20.2 [place] [address] 55892- 3497 Jun, Non morbid obesity due to excess calories E66.09 [place] [address] 64084- 2024 Jun, [place] [address] 61767- 6016 Jun, Fibromyalgia M79.7 [place] [address] 12894- 3975 May, Non morbid obesity due to excess calories E66.09 and Hypertension, benign I10 [address] [address]- [address] 04 May, 2017 GERD with esophagitis K21.[address] 6[address]70- 6854 Apr, BMI 40.0-44.9, adult Z68.41 and Non morbid obesity E66.[address] 40863- 7368 Mar, Unsteady gait R26.[address] 10675- 9853 Mar, Unsteady gait R26.81 ; Sacral pain M53.3 and Fibromyalgia M79.7 [place] [address] 11462- 3402 05 Mar, 2017 Non morbid obesity due to excess calories E66.09 [place] [address] 19017- 3859 28 Feb, 2017 Abdominal pain, generalized R10.84 [place] [address] 11029- 1651 18 Feb, 2017 Other chronic gastritis without hemorrhage K29.50 and H. pylori infection A04.[address] 62163- 3918 07 Feb, 2017 Back pain 724.5 ; Pain in left shoulder M25.512 ; Fibromyalgia M79.7 and Non morbid obesity due to excess calories E66.09 [place] [address] 16908- 9876 Feb, BMI 40.0-44.9, adult Z68.41 [place] [address] 82454- 8573 Jan, Dysuria R30.0 and Acute cystitis with hematuria N30.01 [place] [address] 25362- 6215 Jan, Dysuria R30.0 [place] [address] 10473- 3701 Dec, Fibromyalgia M79.7 [place] [address] 42801- 4250 Dec, Screening for diabetes mellitus Z13.1 and Fibromyalgia M79.7 [place] [address] 94663- 8353 Dec, Fibromyalgia M79.7 [place] [address] 72891- 5599 Dec, [facility] [address] [id number] [place] [address] 71289- 7538 Dec, Fibromyalgia M79.7 [facility] [id number] [place] [address] 69827- 1051 Nov, Foreign body in foot, left, initial encounter S90.852A [place] [address] 61287- 5637 Nov, Viral gastroenteritis A08.4 [place] [address] 65906- 2740 Nov, Fall, initial encounter W19.XXXA ; Post-traumatic headache, unspecified, not intractable G44.309 ; Dizziness R42 ; Unsteady gait R26.81 ; Sacral pain M53.3 and Non morbid obesity due to excess calories E66.09 [place] [address] 68984- 9015 Nov, [place] [address] [place] [id number] [place] [address] 38949- 2881 Nov, [place] [address] 12803- 8420 October, Non morbid obesity due to excess calories E66.09 and Hypertension, benign I10 [place] [address] [place] [id number] [place] [address] 86671- 0388 October, Fibromyalgia M79.7 [facility] [id number] [place] [address] 63994- 7741 Sep, [place] [address] 68267- 6907 Sep, [facility] [address] [id number] [place] [address] 04783- 8617 Sep, Eosinophilic colitis K52.82 [facility] [address] [place] [id number] [place] [address] 66159- 8548 Aug, Bronchitis J40 [facility] [id number] [place] [address] 65876- 6563 Aug, [facility] [address] [place] [id number] [place] [address] 49402- 3190 Aug, Pain in left shoulder M25.512 ; Bronchitis J40 ; Acute midline back pain, unspecified location M54.9 ; Migraine without aura and without status migrainosus, not intractable G43.009 ; Fibromyalgia M79.7 and Pain of upper abdomen R10.10 [place] [address] [place] [id number] [place] [address] 53662- 8734 Aug, [place] [address] [place] [id number] [place] [address] 63786- 7074 Aug, [place] [address] [place] [id number] [place] [address] 36305- 2359 Jul, Other viral agents as the cause of diseases classified elsewhere B97.89 and Acute upper respiratory infection, unspecified J06.9 [facility] [address] [place] [id number] [place] [address] 59605- 1186 Jun, [facility] [id number] [place] [address] 32450 -8828 Jun, [facility] [id number] [place] [address] 53227- 3874 May, Abscess L02.91 [facility] [address] [id number] [place] [address] 96112- 5923 May, Acute midline low back pain without sciatica M54.5 [facility] [id number] [place] [address] 56048 -9603 May, [facility] [id number] [place] [address] 93767- 1319 Apr, [facility] [id number] [place] [address] 66852- 5152 Apr, Other chronic pain G89.29 ; Pain in right shoulder M25.511 and Pain in left shoulder M25.512 [facility] [address] [place] [address] 48818 2546 16 Apr, 2016 [facility] [id number] [place] [address] 47202 2546 10 Apr, 2016 [facility] [id number] [place] [address] 07112 2543 10 Apr, 2016 Fibromyalgia M79.7 ; Other chronic pain G89.29 and Pain in left shoulder M25.512 [facility] [address] [place] [address] 02262 2546 04 Apr, 2016 Bronchitis J40 [facility] [id number] [place] [address] 29229- 4458 27 Mar, 2016 [facility] [id number] [place] [address] [id number] Mar, [facility] [id number] [place] [address] 54762 2540 29 Feb, 2016 [facility] [address] [place] [address] 52364 2549 26 Feb, 2016 [facility] [id number] [place] [address] 34766 2546 23 Feb, 2016 [facility] [address] [place] [address] 26845 2545 22 Feb, 2016 [facility] [id number] [place] [address] 06208 254 20 Feb, 2015 [facility] [address] [place] [address] 88394 2546 19 Feb, 2015 [facility] [id number] [place] [address] 40348 2546 19 Feb, 2015 Dysuria R30.0 [facility] [address] [place] [address] 14495 2541 19 Feb, 2015 Dysuria R30.0 [facility] [address] [id number] [place] [address] 48076- 5133 16 Feb, 2016 [facility] [id number] [place] [address] 87829- 7143 15 Feb, 2016 Migraine, unspecified, not intractable, without status migrainosus G43.909 and Fibromyalgia M79.7 [facility] [address] 30065- 6864 06 Feb, 2016 Migraine without aura and without status migrainosus, not intractable G43.009 [facility] [id number] [place] [address] 97388- 3239 Jan, [facility] [address] [place] [id number] [place] [address] 31731- 6831 Jan, [facility] [address] [id number] [place] [address] 20540- 3234 Jan, [facility] [address] 63095- 2533 Jan, [facility] [address] [id number] [place] [address] 88335- 2989 Jan, Unsteady gait R26.81 ; Fibromyalgia M79.7 and Family history of rheumatoid arthritis Z82.61 [facility] [address] [id number] [place] [address] 41517- 5075 Dec, [facility] [address] 00517- 8979 Dec, [facility] [address] [id number] [place] [address] 56854- 7578 Nov, Pain in left shoulder M25.512 [facility] [id number] [place] [address] 36855- 0863 October, Viral gastroenteritis A08.4 [facility] [id number] [place] [address] 94709 -2006 October, Pain of upper abdomen R10.10 [place] [address] [place] [address] 33688- 7886 October, Acute midline back pain, unspecified location M54.9 [facility] [id number] [place] [address] 62524- 2352 Aug, Elbow pain, right M25.521 [place] [id number] [place] [address] 27853- 0135 Aug, Elbow pain, right M25.521 [place] [address] [id number] [place] [address] 95336- 9588 Aug, Pain of right upper extremity M79.601 [place] [id number] [place] [address] 46635- 4138 Jun, Lumbar neuritis M54.16 [place] [address] [place] [id number] [place] [address] 90843- 7459 May, [place] [address] [id number] [place] [address] 30433- 6781 Apr, Non morbid obesity due to excess calories E66.09 [place] [address] [place] [id number] [place] [address] 36381- 0546 Apr, Non morbid obesity due to excess calories E66.09 and Thoracic neuritis M54.14 [place] [address] [id number] [place] [address] 35072- 4167 Apr, Elbow pain, right M25.521 [place] [id number] [place] [address] 58275- 8355 Mar, Right elbow pain M25.521 [place] [address] [place] [id number] [place] [address] 47404- 3921 Mar, [place] [address] [id number] [place] [address] 09224- 9044 Feb, Urinary tract infection, site not specified 599.0 [place] [address] [place] [id number] [place] [address] 28959- 9035 14 Feb, 2015 [facility] [address] 60528- 2826 Jan, Spider bite 989.5 [facility] [id number] [place] [address] 75278- 1876 Jan, Spider bite 989.5 [facility] [address] 38601- 8661 Jan, Spider bite 989.5 [facility] [address] 12268- 2712 Nov, Back pain 724.5 and Diabetes 250.00 [facility] [address] 24998- 8695 Nov, Back pain 724.5 and Muscle spasm of back 724.8 [facility] [id number] [place] [address] 84131- 9864 Nov, Alternating constipation and diarrhea 787.99 [facility] [address] 13251- 0915 October, Back pain 724.5 and Hip pain 719.45 [facility] [id number] [place] [address] 69810- 0071 Sep, [facility] [id number] [place] [address] 75441- 1443 Sep, [facility] [id number] [place] [address] 20855- 8080 Aug, [facility] [address] 42792- 6566 Aug, [facility] [id number] [place] [address] 41519- 0022 Aug, [facility] [address] 40913- 4364 Aug, [facility] [place] [facility] [address] [id number] [place] [address]- 6936 Aug, [facility] [place] [facility] [address] [id number] [place] [address]- 5837 Aug, [facility] [place] [facility] [address] [id number] [place] [address]- 7933 Jul, [facility] [place] [facility] [address] [id number] [place] [address]- 9014 Jul, [facility] [place] [facility] [address] [id number] [place] [address]- 6644 Jun, [facility] [place] [facility] [address] [id number] [place] [address]- 7804 Jun, [facility] [place] [facility] [address] [id number] [place] [address]- 8581 Jun, [facility] [place] [facility] [address] [id number] [place] [address]- 6347 Jun, [facility] [place] [facility] [address] [id number] [place] [address]- 0170 Jun, [facility] [place] [facility] [address] [id number] [place] [address]- 9682 Jun, [facility] [place] [facility] [address] [id number], [place] [address]- 0730 Jun, [facility] [place] [facility] [address] [id number], [place] [address]- 9535 May, [facility] [place] [facility] [address] [id number] [place] [address]- 1271 May, [facility] [place] [facility] [address] [id number] [place] [address]- 6667 May, [facility] [place] [facility] [address] [id number] [place] 8345 May, [facility] [place] [facility] [address] [id number] [place] [address]- 1494 Apr, [facility] [place] [facility] [address] [id number] [place] [address]- 4883 Apr, [facility] [place] [facility] [address] [id number] [place] [address]- 9162 Mar, [facility] [place] [facility] [address] [id number] [place] [address]- 0275 Mar, [facility] [place] [facility] [address] [id number] [place] [address]- 0642 Mar, [facility] [place] [facility] [address] [id number] [place] [address]- 8931 Mar, [facility] [place] [facility] [address] [id number] [place] [address]- 4056 Mar, [facility] [place] [facility] [address] [id number] [place] [address]- 9267 Mar, [facility] [place] [facility] [address] [id number] [place] [address]- 1826 Mar, [facility] [place] [facility] [address] [id number] [place] [address]- 3591 Mar, [facility] [place] [facility] [address] [id number] [place] [address]- 5973 Mar, [facility] [place] [facility] [address] [id number] [place] [address]- 6798 Mar, [facility] [place] [facility] [address] [id number] [place] [address]- 7921 Feb, [facility] [place] [facility] [address] [id number] [place] 1661 Feb, [facility] [place] [facility] [address] [id number] [place] [address]- 9744 Jan, [facility] [place] [facility] [address] [id number] [place] [address]- 8116 Jan, [facility] [place] [facility] [address] [id number] [place] [address]- 2951 Jan, [facility] [place] [facility] [address] [id number] [place] [address]- 3246 Jan, [facility] [place] [facility] [address] [id number] [place] [address]- 3739 Jan, [facility] [place] [facility] [address] [id number] [place] [address]- 0414 Jan, [facility] [place] [facility] [address] [id number] [place] [address]- 8436 Jan, [facility] [place] [facility] [address] [id number] [place] [address]- 4782 Jan, [facility] [place] [facility] [address] [id number] [place] [address]- 5854 Jan, [facility] [place] [facility] [address] [id number] [place] [address]- 2118 Jan, [facility] [place] [facility] [address] [id number] [place] [address]- 8914 Dec, [facility] [place] [facility] [address] [id number] [place] [address]- 9626 Dec, [facility] [place] [facility] [address] [id number] [place] [address]- 8030 Dec, [facility] [place] [facility] [address] [id number] [place] [address]- 6624 Dec, [facility] [place] [facility] [address] [id number] [place] [address]- 5430 Nov, [facility] [place] [facility] [address] [id number] [place] [address]- 1254 Nov, [facility] [place] [facility] [address] [id number] [place] [address]- 3537 Nov, [facility] [place] [facility] [address] [id number], [place] [address]- 5463 Nov, [facility] [place] [facility] [address] [id number] [place] [address]- 5838 October, [facility] [place] [facility] [address] [id number] [place] [address]- 2270 October, [facility] [place] [facility] [address] [id number] [place] [address]- 3250 Sep, [facility] [place] [facility] [address] [id number] [place] [address]- 1370 Sep, [facility] [place] [facility] [address] [id number] [place] [address]- 9358 Sep, [facility] [place] [facility] [address] [id number] [place] [address]- 2848 Sep, [facility] [place] [facility] [address] [id number] [place] [address]- 2866 Sep, [facility] [place] [facility] [address] [id number] [place] [address]- 6234 Sep, [facility] [place] [facility] [address] [id number] [place] [address]- 8140 Sep, [facility] [place] [facility] [address] [id number] [place] [address]- 3299 Sep, [facility] [place] [facility] [address] [id number] [place] [address]- 7242 Sep, [facility] [place] [facility] [address] [id number] [place] [address]- 7603 Sep, [facility] [place] [facility] [address] [id number] [place] [address]- 8908 Jul, [facility] [place] [facility] [address] [id number] [place] [address]- 7716 Jul, [facility] [place] [facility] [address] [id number] [place] [address]- 2292 Jul, [facility] [place] [facility] [address] [id number] [place] [address]- 3563 Jul, [facility] [place] [facility] [address] [id number] [place] [address]- 5288 Jun, [facility] [place] [facility] [address] [id number] [place] [address]- 0284 Jun, [facility] [place] [facility] [address] [id number] [place] [address]- 7514 Jun, [facility] [place] [facility] [address] [id number] [place] [address]- 6247 Jun, [facility] [place] [facility] [address] [id number] [place] [address]- 6017 Jun, [facility] [place] [facility] [address] [id number] [place] [address]- 1493 Jun, [facility] [place] [facility] [address] [id number] [place] [address]- 3091 Apr, [facility] [place] [facility] [address] [id number] [place] [address]- 1918 Apr, [facility] [place] [facility] [address] [id number] [place] [address]- 7748 Apr, [facility] [place] [facility] [address] [id number] [place] [address]- 2844 Apr, [facility] [place] [facility] [address] [id number] [place] [address]- 9256 Apr, [facility] [place] [facility] [address] [id number] [place] [address]- [address] Apr, [facility] [place] [facility] [address] [id number] [place] [address] Apr, [facility] [place] [facility] [address] [id number] [place] [address] Apr, [facility] [place] [facility] [address] [id number] [place] [address] Mar, [facility] [place] [facility] [address] [id number] [place] [address] Mar, [facility] [place] [facility] [address] [id number] [place] [address] Feb, [facility] [place] [facility] [address] [id number] [place] [address] Feb, [facility] [place] [facility] [address] [id number] [place] [address] Dec, [facility] [place] [facility] [address] [id number] [place] [address] Dec, [facility] [place] [facility] [address] [id number] [place] [address] Dec, [facility] [place] [facility] [address] [id number] [place] [address] Dec, [facility] [place] [facility] [address] [id number] [place] [address] Dec, [facility] [place] [facility] [address] [id number] [place] [address] Dec, [facility] [place] [facility] [address] [id number] [place] [address] Dec, [facility] [place] [facility] [address] [id number] [place] [address] Nov, [facility] [place] [facility] [address] [id number] [place] [address] Nov, [facility] [place] [facility] [address] [id number] [place] [address] Nov, [facility] [place] [facility] [address] [id number] [place] [address] Nov, [facility] [place] [facility] [address] [id number] [place] [address] October, [facility] [place] [facility] [address] [id number] [place] [address] October, [facility] [address] [id number] [place] [address] October, [facility] [address] [id number] [place] [address] October, [facility] [address] [id number] [place] [address] Sep, [facility] [address] [id number] [place] [address] Aug, [facility] [address] [id number] [place] [address] Aug, [facility] [address] [id number] [place] [address] Aug, [facility] [address] [id number] [place] [address] Aug, [facility] [address] [id number] [place] [address] Aug, [facility] [address] [id number] [place] [address] Jul, [facility] [address] [facility] [id number] [place] [address] Jul, [facility] [address] [id number] [place] [address] Jul, [facility] [address] [id number] [place] [address] Jul, [facility] [address] [id number] [place] [address] Jul, [facility] [address] [id number] [place] [address]- [address] 23 Jul, 2012 [facility] [address] [id number] [place] [address] 20 Jul, 2012 [facility] [place] [facility] [address] [id number] [place] [address]- [address] 15 Jul, 2012 [facility] [place] [facility] [address] [id number] [place] [address]- [address] 14 Jul, 2012 [facility] [place] [facility] [address] [id number] [place] [address] Jul, [facility] [place] [facility] [address] [id number] [place] [address] Jun, [facility] [place] [facility] [address] [id number] [place] [address] Jun, [facility] [place] [facility] [address] [id number] [place] [address] Jun, [facility] [place] [facility] [address] [id number] [place] [address] May, [facility] [place] [facility] [address] [id number] [place] [address] May, [facility] [place] [facility] [address] [id number] [place] [address] Apr, [facility] [place] [facility] [address] [id number] [place] [address] Apr, [facility] [place] [facility] [address] [id number], [place] [address] Apr, [facility] [place] [facility] [address] [id number], [place] [address] Apr, [facility] [place] [facility] [address] [id number] [place] [address] Apr, [facility] [place] [facility] [address] [id number] [place] [address] Apr, [facility] [place] [facility] [address] [id number] [place] [address] Apr, [facility] [place] [facility] [address] [id number] [place] [address] 254 Apr, [facility] [place] [facility] [address] [id number] [place] [address] Mar, [facility] [place] [facility] [address] [id number] [place] [address] Mar, [facility] [place] [facility] [address] [id number] [place] [address] Mar, [facility] [place] [facility] [address] [id number] [place] [address] Mar, [facility] [place] [facility] [address] [id number] [place] [address] Mar, [facility] [place] [facility] [address] [id number] [place] [address] Mar, [facility] [place] [facility] [address] [id number] [place] [address] Mar, [facility] [place] [facility] [address] [id number] [place] [address] Mar, [facility] [place] [facility] [address] [id number] [place] [address] Mar, [facility] [place] [facility] [address] [id number] [place] [address] Feb, [facility] [place] [facility] [address] [id number] [place] [address] Jan, [facility] [place] [facility] [address] [id number] [place] [address] Jan, [facility] [place] [facility] [address] [id number] [place] [address] Jan, [facility] [place] [facility] [address] [id number] [place] [address] Dec, [facility] [place] [facility] [address] [id number] [place] [address] Dec, [facility] [address] [id number] [place] [address] Dec, [facility] [place] [facility] [address] [id number] [place] [address] Nov, [facility] [place] [facility] [address] [id number] [place] [address] October, [facility] [place] [facility] [address] [id number] [place] [address] October, [facility] [place] [facility] [address] [id number] [place] [address] October, [facility] [place] [facility] [address] [id number] [place] [address] 47[address] October, [facility] [place] [facility] [address] [id number] [place] [address] October, [facility] [place] [facility] [address] [id number] [place] [address] Sep, [facility] [place] [facility] [address] [id number] [place] [address] Sep, [facility] [place] [facility] [address] [id number] [place] [address] Sep, [facility] [place] [facility] [address] [id number] [place] [address]158 Sep, [facility] [place] [facility] [address] [id number] [place] [address]- 9186 Sep, [facility] [place] [facility] [address] [id number] [place] [address] Sep, [facility] [place] [facility] [address] [id number] [place] [address] Sep, [facility] [place] [facility] [address] [id number] [place] [address] Aug, [facility] [place] [facility] [address] [id number] [place] [address] 23 Aug, 2011 [facility] [address] [id number] [place] [address]261 21 Aug, 2011 [facility] [place] [facility] [address] [id number] [place] [address] 8586 21 Aug, 2011 [facility] [place] [facility] [address] [id number] [place] [address]36 20 Aug, 2011 [facility] [place] [facility] [address] [id number] [place] [address]49 19 Aug, 2011 [facility] [place] [facility] [address] [id number] [place] [address] 16 Aug, 2011 [facility] [place] [facility] [address] [id number] [place] [address] 15 Aug, 2011 [facility] [address] [id number] [place] [address]- [address]656 15 Aug, 2011 [facility] [place] [facility] [address] [id number] [place] [address]- [address]68 14 Aug, 2011 [facility] [place] [facility] [address] [id number] [place] [address]- [address]47 12 Aug, 2011 [facility] [place] [facility] [address] [id number] [place] [address]- 8789 08 Aug, 2011 [facility] [place] [facility] [address] [id number] [place] [address]- [address] 15 Jul, 2011 [facility] [place] [facility] [address] [id number] [place] [address]- [address] 15 Jul, 2011 [facility] [place] [facility] [address] [id number] [place] [address]- [address]202 14 Jul, 2011 [facility] [place] [facility] [address] [id number] [place] [address]- 9486 06 Jul, 2011 [facility] [place] [facility] [address] [id number] [place] [address]- 9075 Jul, [facility] [place] [facility] [address] [id number] [place] [address]- 6[address] Jun, [facility] [place] [facility] [address] [id number] [place] [address]- 4622 Jun, [facility] [place] [facility] [address] [id number] [place] [address] Jun, [facility] [place] [facility] [address] [id number] [place] [address]- 1616 May, [facility] [place] [facility] [address] [id number] [place] [address]- 9873 May, [facility] [place] [facility] [address] [id number] [place] [address]- [address]013 May, [facility] [place] [facility] [address] [id number] [place] [address]- 1231 May, [facility] [place] [facility] [address] [id number] [place] [address]- 3918 May, [facility] [place] [facility] [address] [id number] [place] [address]- 4516 Apr, [facility] [place] [facility] [address] [id number] [place] [address]- [address] 16 Apr, 2011 [facility] [place] [facility] [address] [id number] [place] [address]- 8222 15 Apr, 2011 [facility] [place] [facility] [address] [id number], [place] [address] 14 Apr, 2011 [facility] [place] [facility] [address] [id number] [place] [address]- 5936 Mar, [facility] [place] [facility] [address] [id number] [place] [address]- 0802 Mar, [facility] [place] [facility] [address] [id number] [address] Mar, [facility] [place] [facility] [address] [id number], [place] [address]46 Mar, [facility] [address], [place] [address] Mar, [facility] [address], [place] [address] Mar, [facility] [id number], [place] [address] Feb, [facility] [id number] [place] [address] Nov, [facility] [id number], [place] [address] Aug, [facility] [id number] [place] [address] Apr, [facility] [address], [place] [address] Mar, [facility] [address], [place] [address] Apr, [facility] [address], [place] [address] Apr, [facility] [address], [place] [address] Sep, [facility] [address] [id number] [address] Mar, IMMUNIZATIONS Vaccine Route Administration Date Status PHENERGAN 50MG/ML IM Intramuscular Mar 05, 2017 Administered SOCIAL HISTORY Never Assessed REASON FOR VISIT Vomiting/Abdominal pain, 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 and she says she is still having all the symptoms and is throwing up the medications- [facility] REED PLAN OF CARE VITAL SIGNS Height 63 in 2017-03-05 Weight 226.8 lbs 2017-03-05 Temperature 98.4 degrees Fahrenheit 2017-03-05 Heart Rate 84 bpm 2017-03-05 Respiratory Rate 20 2017-03-05 BMI 40.17 kg/m2 2017-03-05 Blood pressure systolic 128 mmHg 2017-03-05 Blood pressure diastolic 82 mmHg 2017-03-05 MEDICATIONS Medication Instructions Dosage Frequency Start Date End Date Duration Status Cymbalta 60 MG Orally Once a day 1 capsule 24h Active Micardis 20 mg Orally Once a day 1 tablet by Oral route 1 time per day 24h Jun, 90 days Active Albuterol Sulfate (2.5 MG/3ML) 0.083% Inhalation Three times a day 3 ml 8h Aug, Active Glucocard Expression Monitor w/Device as directed Aug, Active Glucocard Expression Test - test blood sugar Aug, Active Zofran ODT 4 MG Orally every 8 hrs 1 tablet on the tongue and allow to dissolve 8h Feb, Active Propranolol HCl 40 mg Orally Twice a day 1 tablet 12h October, 30 days Active Metronidazole 500 mg Orally Twice a day, voucher 1 tablet Feb, Mar, 14 days Active Omeprazole 20 mg Orally Once a day, voucher 1st fill 1 capsule Feb, 30 day(s) Active Metformin HCl 1000 MG Orally Twice a day 1 tablet with meals 12h Nov, 30 day(s) Active Diclofenac Sodium 75 MG Orally Twice a day, voucher 1st fill 1 tablet with food or milk October, Mar, 30 day(s) Active [place] [employer] - with bench seat. DX: fibromyalgia, unsteady gait as directed Jan, Active Crestor 10 mg Orally Once a day 1 tablet 24h 16 Feb, 2014 90 days Active Lyrica 150 MG Orally 3 times a day 1 capsule 8h Mar, 90 days Active Proventil HFA 108 (90 Base) MCG/ACT Inhalation every 4 hrs 2 puffs as needed 4h Aug, Active Seroquel XR 150 MG Orally Once a day 1 tablet in the evening 24h Active Wheelchair 1 as directed Nov, Active Mirtazapine 15 MG Orally Once a day 1 tablet at bedtime 24h Active Amoxicillin 500 mg Orally 2 times a day, voucher 2 capsules Feb, Mar, 14 days Active RESULTS Name Result Date Reference Range Ultrasound : Abdominal, COMPLETE 2017-03-12 PROCEDURES Procedure Date Ordered Result Body Site PHENERGAN 50MG/ML Mar 05, 2017 THER/PROPH/DIAG INJ, SC/IM Mar 05, 2017 INSTRUCTIONS MEDICATIONS ADMINISTERED No Known [...]
--- OUTSIDE RECORDS SUMMARY | 2018-06-19 13:40 | XMS REPORT ---
Author Author ARISTEO ARAYA Organization [facility] Address [address] [place] [address] Care Team Providers Care Quality Assurance Qa Lab Analyst Name Role Phone ARISTEO ARAYA Unavailable PROBLEMS Type Condition ICD9-CM Code UDK43-DW Code Onset Dates Condition Status SNOMED Code Problem Non morbid obesity due to excess calories E66.09 Active 182049677 Problem Unsteady gait R26.81 Active 93643976 Problem Eosinophilic colitis K52.82 Active 82843952 Problem Acute right-sided low back pain with right-sided sciatica M54.41 Active 942011543 Problem Paresthesias in left hand R20.2 Active 123905588 Problem Non morbid obesity E66.9 Active 401382371 Problem Other chronic gastritis without hemorrhage K29.50 Active 4095422 Problem GERD with esophagitis K21.0 Active 695937786 Problem Sacral pain M53.3 Active 16410374 Problem Fibromyalgia M79.7 Active 913465562 Problem Other chronic pain G89.29 Active 23877133 Problem Bronchitis J40 Active 59855781 Problem Migraine without aura and without status migrainosus, not intractable G43.009 Active 047848600 Problem Hypertension, benign I10 Active 27380101 ALLERGIES No Information ENCOUNTERS Encounter Location Date Diagnosis [facility] [id number] [place] [address] 03349- 5406 Dec, [facility] [id number] [place] [address] 06975- 8444 Nov, BMI 40.0-44.9, adult Z68.41 ; Leg edema R60.0 and Hypertension, benign I10 [facility] [address] [address] Nov, [facility] [id number] [place] [address] 16941- 5511 October, Thoracic neuritis M54.14 [facility] [id number] [place] [address] 83596- 9409 October, Acute right hip pain M25.551 [facility] [id number] [place] [address] 36741- 7694 October, [facility] [id number] [place] [address] 35307- 0353 Sep, Hypertension, benign I10 and Acute right-sided low back pain with right-sided sciatica M54.41 [facility] [id number] [place] [address] 83356- 3682 Sep, Fibromyalgia M79.7 and Hypertension, benign I10 [facility] [address] 25582- 1654 Aug, [place] [address] 01247- 3483 Aug, Fibromyalgia M79.7 ; Frequent headaches R51 and Non morbid obesity due to excess calories E66.09 [facility] [id number] [place] [address] 64752- 9957 Jul, [facility] [id number] [place] [address] 65738- 1602 Jul, Fibromyalgia M79.7 [facility] [place] [id number] [place] [address] 24937- 6070 Jul, Viral gastroenteritis A08.4 and Paresthesias in left hand R20.2 [facility] [id number] [place] [address] 99308- 7185 Jun, Non morbid obesity due to excess calories E66.09 [facility] [id number] [place] [address] 02314- 4178 Jun, [facility] [id number] [place] [address] 37399- 8388 Jun, Fibromyalgia M79.7 [place] [id number] [place] [address] 04026- 4190 18 May, 2017 Non morbid obesity due to excess calories E66.09 and Hypertension, benign I10 [address] 40340- 8814 04 May, 2017 GERD with esophagitis K21.[address] 69048- 8687 Apr, BMI 40.0-44.9, adult Z68.41 and Non morbid obesity E66.[address] 53174- 8627 Mar, Unsteady gait R26.[address] 14458- 0846 Mar, Unsteady gait R26.81 ; Sacral pain M53.3 and Fibromyalgia M79.[address] 16941- 1499 Mar, Non morbid obesity due to excess calories E66.[address] 10729- 6665 Feb, Abdominal pain, generalized R10.[address] 09750- 8089 18 Feb, 2017 Other chronic gastritis without hemorrhage K29.50 and H. pylori infection A04.[address] 93190- 0365 Feb, Back pain 724.5 ; Pain in left shoulder M25.512 ; Fibromyalgia M79.7 and Non morbid obesity due to excess calories E66.09 [place] [id number] [place] [address] 18991- 1978 Feb, BMI 40.0-44.9, adult Z68.[address] 83999- 9795 Jan, Dysuria R30.0 and Acute cystitis with hematuria N30.01 [place] [id number] [place] [address] 78043- 6284 Jan, Dysuria R30.0 [facility] [id number] [place] [address] 50321- 3874 Dec, Fibromyalgia M79.7 [facility] [address] 15831- 2670 Dec, Screening for diabetes mellitus Z13.1 and Fibromyalgia M79.7 [place] [address] 50062- 6655 Dec, Fibromyalgia M79.7 [place] [address] 36812- 3512 Dec, [place] [address] 79046- 7508 Dec, Fibromyalgia M79.7 [facility] [address] 22260- 5844 Nov, Foreign body in foot, left, initial encounter S90.852A [place] [address] 28779- 9602 Nov, Viral gastroenteritis A08.4 [facility] [id number] [place] [address] 18853- 6084 09 Nov, 2016 Fall, initial encounter W19.XXXA ; Post-traumatic headache, unspecified, not intractable G44.309 ; Dizziness R42 ; Unsteady gait R26.81 ; Sacral pain M53.3 and Non morbid obesity due to excess calories E66.09 [place] [address] 42641- 8952 Nov, [place] [address] 54997- 2138 Nov, [place] [address] [place] [address]- 5390 October, Non morbid obesity due to excess calories E66.09 and Hypertension, benign I10 [place] [address] 60800- 2484 October, Fibromyalgia M79.7 [place] [id number] [place] [address] 74436- 9735 Sep, [place] [address] 23424- 3687 Sep, [place] [address] 00207- 0822 Sep, Eosinophilic colitis K52.82 [place] [address] 47054- 7188 Aug, Bronchitis J40 [place] [address] 40361- 6133 Aug, [place] [id number] [place] [address] 55375- 0218 Aug, Pain in left shoulder M25.512 ; Bronchitis J40 ; Acute midline back pain, unspecified location M54.9 ; Migraine without aura and without status migrainosus, not intractable G43.009 ; Fibromyalgia M79.7 and Pain of upper abdomen R10.10 [place] [id number] [place] [address] 19636- 9756 Aug, [place] [id number] [place] [address] 54683- 9600 Aug, [facility] [id number] [place] [address] 61511- 6779 Jul, Other viral agents as the cause of diseases classified elsewhere B97.89 and Acute upper respiratory infection, unspecified J06.9 [place] [id number] [place] [address] 66170- 0618 Jun, [facility] [address] [place] [address]5681 Jun, [facility] [id number] [place] [address] 57354- 7610 May, Abscess L02.91 [facility] [id number] [place] [address] 72592- 0913 May, Acute midline low back pain without sciatica M54.5 [facility] [id number] [place] [address] 04163 -5685 May, [facility] [id number] [place] [address] 39316- 2003 Apr, [facility] [id number] [place] [address] 13586- 9631 Apr, Other chronic pain G89.29 ; Pain in right shoulder M25.511 and Pain in left shoulder M25.512 [facility] [id number] [place] [address] 53945- 2912 Apr, [facility] [id number] [place] [address] 16301- 0635 Apr, [facility] [id number] [place] [address] 16200- 5545 Apr, Fibromyalgia M79.7 ; Other chronic pain G89.29 and Pain in left shoulder M25.512 [facility] [id number] [place] [address] 96612- 6856 Apr, Bronchitis J40 [facility] [address] [address]- 1379 Mar, [facility] [id number] [place] [address] [id number] Mar, [facility] [id number] [place] [address] 00796- 3051 Feb, [facility] [address] [place] [address] 89593- 5977 Feb, [facility] [address] [address]- 6778 23 Feb, 2015 [facility] [id number] [place] [address] 34250- 6521 22 Feb, 2015 [facility] [id number] [place] [address] 07598- 0837 20 Feb, 2015 [facility] [id number] [place] [address] 12539- 3243 19 Feb, 2015 [facility] [id number] [place] [address] 84909- 6211 19 Feb, 2016 Dysuria R30.0 [facility] [id number] [place] [address] 87500- 8992 19 Feb, 2016 Dysuria R30.0 [facility] [id number] [place] [address] 08199- 7584 16 Feb, 2015 [facility] [id number] [place] [address] 43903- 6755 15 Feb, 2016 Migraine, unspecified, not intractable, without status migrainosus G43.909 and Fibromyalgia M79.7 [facility] [address] [place] [address] 60463- 3999 06 Feb, 2016 Migraine without aura and without status migrainosus, not intractable G43.009 [facility] [address] [place] [address] 65492- 0588 Jan, [facility] [address] [place] [address] 14540- 6506 Jan, [facility] [id number] [place] [address] 24335- 6027 Jan, [facility] [address] [place] [address] 44116- 8970 Jan, [facility] [address] [place] [address] 26926- 2542 04 Aug, 2016 Unsteady gait R26.81 ; Fibromyalgia M79.7 and Family history of rheumatoid arthritis Z82.61 [facility] [id number] [place] [address] 48511- 3810 Dec, [facility] [address] 35894- 3903 Dec, [place] [address] 59259- 4638 Nov, Pain in left shoulder M25.512 [place] [address] 88350- 0502 October, Viral gastroenteritis A08.4 [facility] [address] 81880 -1748 October, Pain of upper abdomen R10.10 [place] [address] 77400- 5949 October, Acute midline back pain, unspecified location M54.9 [place] [address] 12032- 6524 Aug, Elbow pain, right M25.521 [place] [address] 51018- 0893 Aug, Elbow pain, right M25.521 [place] [address] 81923- 0611 Aug, Pain of right upper extremity M79.601 [place] [address] 04569- 1233 Jun, Lumbar neuritis M54.16 [place] [address] 50681- 5498 May, [place] [address] 51568- 0026 Apr, Non morbid obesity due to excess calories E66.09 [place] [address] 21615- 4942 Apr, Non morbid obesity due to excess calories E66.09 and Thoracic neuritis M54.14 [place] [address] 06959- 5214 Apr, Elbow pain, right M25.521 [facility] [address] 12731- 9792 Mar, Right elbow pain M25.521 [facility] [address] 72154- 1094 Mar, [place] [address] 45484- 8263 30 Feb, 2015 Urinary tract infection, site not specified 599.0 [place] [address] 45901- 9714 Feb, [place] [address] 20215- 2259 Jan, Spider bite 989.5 [place] [address] 00750- 9239 Jan, Spider bite 989.5 [place] [address] 33955- 0725 Jan, Spider bite 989.5 [place] [address] 65838- 2301 Nov, Back pain 724.5 and Diabetes 250.00 [place] [address] 85134- 9749 Nov, Back pain 724.5 and Muscle spasm of back 724.8 [place] [address] 75318- 9955 Nov, Alternating constipation and diarrhea 787.99 [place] [address] 54228- 2568 October, Back pain 724.5 and Hip pain 719.45 [facility] [address] [id number] [place] [address]- 1548 14 Sep, 2014 [facility] [place] [facility] [address] [id number], [place] [address]- 8217 Sep, [facility] [address] [facility] [id number] [place] [address]- 6865 Aug, [facility] [place] [facility] [address] [id number], [place] [address]- 6964 Aug, [facility] [place] [facility] [address] [id number] [place] [address]- 9076 Aug, [facility] [place] [facility] [address] [facility] [id number] [place] [address]- 9226 Aug, [facility] [address] [facility] [id number], [place] [address]- 6471 Aug, [facility] [place] [facility] [address] [facility] [id number], [place] [address]- 9768 Aug, [facility] [address] [facility] [id number], [place] [address]- 4402 Jul, [facility] [place] [facility] [address] [facility] [id number], [place] [address]- 8990 Jul, [facility] [place] [facility] [address] [facility] [id number], [place] [address]- 5402 Jun, [facility] [place] [facility] [address] [facility] [id number], [place] [address]- 4030 Jun, [facility] [place] [facility] [address] [facility] [id number], [place] [address]- 9943 Jun, [facility] [place] [facility] [address] [facility] [id number], [place] [address]- 0708 Jun, [facility] [place] [facility] [address] [facility] [id number], [place] [address]- 6488 Jun, [facility] [place] [facility] [address] [id number] [place] [address]- 3943 Jun, [facility] [place] [facility] [address] [id number] [place] 7863 Jun, [facility] [place] [facility] [address] [id number] [place] 0484 May, [facility] [place] [facility] [address] [id number] [place] [address]- 5746 May, [facility] [place] [facility] [address] [id number] [place] [address]- 3629 May, [facility] [place] [facility] [address] [id number] [place] [address]- 6106 May, [facility] [place] [facility] [address] [id number] [place] [address]- 3937 Apr, [facility] [place] [facility] [address] [id number] [place] [address]- 7492 Apr, [facility] [place] [facility] [address] [id number] [place] [address]- 0773 Mar, [facility] [place] [facility] [address] [id number] [place] [address]- 1734 Mar, [facility] [place] [facility] [address] [id number] [place] [address]- 5925 Mar, [facility] [place] [facility] [address] [id number] [place] [address]- 5617 24 Mar, 2014 [facility] [place] [facility] [address] [id number] [place] [address]- 1563 Mar, [facility] [place] [facility] [address] [id number] [place] [address]- 6847 15 Mar, 2014 [facility] [place] [facility] [address] [id number] [place] 6806 Mar, [facility] [place] [facility] [address] [id number] [place] [address]- 5465 Mar, [facility] [place] [facility] [address] [id number] [place] [address]- 4382 Mar, [facility] [place] [facility] [address] [id number] [place] [address]- 9136 Mar, [facility] [place] [facility] [address] [id number] [place] [address]- 2436 Feb, [facility] [place] [facility] [address] [id number] [place] [address]- 6985 Feb, [facility] [place] [facility] [address] [id number] [place] [address]- 4721 Jan, [facility] [place] [facility] [address] [id number] [place] [address]- 8715 Jan, [facility] [place] [facility] [address] [id number] [place] [address]- 3135 Jan, [facility] [place] [facility] [address] [id number] [place] [address]- 3058 Jan, [facility] [place] [facility] [address] [id number] [place] [address]- 2497 Jan, [facility] [place] [facility] [address] [id number] [place] [address]- 7897 Jan, [facility] [place] [facility] [address] [id number], [place] [address]- 9129 Jan, [facility] [place] [facility] [address] [id number], [place] [address]- 5631 Jan, [facility] [place] [facility] [address] [id number] [place] [address]- 4416 Jan, [facility] [place] [facility] [address] [id number] [place] [address]- 2540 Jan, [facility] [place] [facility] [address] [id number] [place] [address]- 5130 Dec, [facility] [place] [facility] [address] [id number] [place] [address]- 4297 Dec, [facility] [place] [facility] [address] [id number] [place] [address]- 9727 Dec, [facility] [place] [facility] [address] [id number] [place] [address]- 1664 Dec, [facility] [place] [facility] [address] [id number] [place] [address]- 6024 Nov, [facility] [place] [facility] [address] [id number] [place] [address]- 7356 Nov, [facility] [place] [facility] [address] [id number] [place] [address]- 9094 Nov, [facility] [place] [facility] [address] [id number] [place] [address]- 0405 Nov, [facility] [place] [facility] [address] [id number] [place] [address]- 8036 October, [facility] [place] [facility] [address] [id number] [place] [address]- 1447 October, [facility] [place] [facility] [address] [id number] [place] [address]- 4342 Sep, [facility] [place] [facility] [address] [id number] [place] [address]- 7317 Sep, [facility] [place] [facility] [address] [id number] [place] [address]- 2076 Sep, [facility] [place] [facility] [address] [id number] [place] [address]- 3532 Sep, [facility] [place] [facility] [address] [id number] [place] [address]- 1596 Sep, [facility] [place] [facility] [address] [id number] [place] [address]- 4666 Sep, [facility] [place] [facility] [address] [id number] [place] [address]- 0953 Sep, [facility] [place] [facility] [address] [id number] [place] [address]- 4525 Sep, [facility] [place] [facility] [address] [id number] [place] [address]- 6667 Sep, [facility] [place] [facility] [address] [id number] [place] 3854 Sep, [facility] [place] [facility] [address] [id number] [place] [address]- 0055 Jul, [facility] [place] [facility] [address] [id number] [place] [address]- 5718 Jul, [facility] [place] [facility] [address] [id number] [place] [address]- 5337 Jul, [facility] [place] [facility] [address] [id number] [place] [address]- 1389 Jul, [facility] [place] [facility] [address] [id number] [place] [address]- 7214 Jun, [facility] [place] [facility] [address] [id number] [place] [address]- 4642 Jun, [facility] [place] [facility] [address] [id number] [place] [address]- 7505 Jun, [facility] [place] [facility] [address] [id number] [place] [address]- 8446 Jun, [facility] [place] [facility] [address] [id number] [place] [address]- 2777 Jun, [facility] [place] [facility] [address] [id number] [place] [address]- 5124 Jun, [facility] [place] [facility] [address] [id number] [place] [address]- 5183 Apr, [facility] [place] [facility] [address] [id number] [place] 9022 Apr, [facility] [place] [facility] [address] [id number] [place] [address]- 9077 Apr, [facility] [place] [facility] [address] [id number] [place] [address]- 3765 Apr, [facility] [place] [facility] [address] [id number] [place] [address]- 3882 Apr, [facility] [place] [facility] [address] [id number] [place] [address]- 3594 Apr, [facility] [place] [facility] [address] [id number] [place] [address]- 9098 Apr, [facility] [place] [facility] [address] [id number] [place] [address]- 3435 Apr, [facility] [place] [facility] [address] [id number] [place] [address]- 5917 Mar, [facility] [place] [facility] [address] [id number] [place] [address] Mar, [facility] [place] [facility] [address] [id number] [place] [address] Feb, [facility] [place] [facility] [address] [id number] [place] [address] Feb, [facility] [place] [facility] [address] [id number] [place] [address] Dec, [facility] [place] [facility] [address] [id number] [place] [address] Dec, [facility] [place] [facility] [address] [id number] [place] [address] Dec, [facility] [place] [facility] [address] [id number] [place] [address] Dec, [facility] [place] [facility] [address] [id number] [place] [address] Dec, [facility] [place] [facility] [address] [id number] [place] [address] Dec, [facility] [place] [facility] [address] [id number] [place] [address] Dec, [facility] [place] [facility] [address] [id number] [place] [address] Nov, [facility] [place] [facility] [address] [id number] [place] [address] Nov, [facility] [place] [facility] [address] [id number] [place] [address] Nov, [facility] [place] [facility] [address] [id number] [place] [address] Nov, [facility] [place] [facility] [address] [id number] [place] [address] October, [facility] [place] [facility] [address] [id number] [place] [address] October, [facility] [place] [facility] [address] [id number] [place] [address] October, [facility] [address] [id number] [place] [address] October, [facility] [place] [facility] [address] [id number] [place] [address] Sep, [facility] [place] [facility] [address] [id number] [place] [address] Aug, [facility] [place] [facility] [address] [id number] [place] [address] Aug, [facility] [place] [facility] [address] [id number] [place] [address] Aug, [facility] [place] [facility] [address] [id number] [place] [address] Aug, [facility] [place] [facility] [address] [id number] [place] [address] Aug, [facility] [place] [facility] [address] [id number] [place] [address] Jul, [facility] [address] [id number] [place] [address] Jul, [facility] [address] [id number] [place] [address] Jul, [facility] [address] [facility] [id number] [place] [address] Jul, [facility] [place] [facility] [address] [id number] [place] [address] Jul, [facility] [address] [id number] [place] [address] Jul, [facility] [address] [facility] [id number] [place] [address] 20 Jul, 2012 [facility] [address] [id number] [place] [address] 15 Jul, 2012 [facility] [address] [facility] [id number] [place] [address] 14 Jul, 2012 [facility] [address] [facility] [id number] [place] [address] Jul, [facility] [address] [facility] [id number] [place] [address] Jun, [facility] [address] [facility] [id number] [place] [address] Jun, [facility] [place] [facility] [address] [facility] [id number], [place] [address] Jun, [facility] [place] [facility] [address] [id number], [place] [address] May, [facility] [place] [facility] [address] [facility] [id number] [place] [address] May, [facility] [address] [facility] [id number], [place] [address] Apr, [facility] [place] [facility] [address] [id number] [place] [address] Apr, [facility] [place] [facility] [address] [id number] [place] [address] Apr, [facility] [place] [facility] [address] [id number] [place] [address] Apr, [facility] [place] [facility] [address] [id number] [place] [address] Apr, [facility] [place] [facility] [address] [id number] [place] [address] Apr, [facility] [place] [facility] [address] [id number] [place] [address] Apr, [facility] [place] [facility] [address] [id number] [place] [address] Apr, [facility] [place] [facility] [address] [id number] [place] [address] Mar, [facility] [place] [facility] [address] [id number] [place] [address] Mar, [facility] [place] [facility] [address] [id number] [place] [address] 31 Mar, 2012 [facility] [place] [facility] [address] [id number] [place] [address] 31 Mar, 2012 [facility] [place] [facility] [address] [id number], [place] [address] 15 Mar, 2012 [facility] [place] [facility] [address] [id number] [place] [address] 2754 15 Mar, 2012 [facility] [place] [facility] [address] [id number] [place] [address] 3984 Mar, [facility] [place] [facility] [address] [id number] [place] [address] 15[address] Mar, [facility] [place] [facility] [address] [id number] [place] [address] 1466 Mar, [facility] [place] [facility] [address] [id number] [place] [address]46 Feb, [facility] [place] [facility] [address] [id number] [place] [address] Jan, [facility] [place] [facility] [address] [id number] [place] [address]46 Jan, [facility] [place] [facility] [address] [id number] [place] [address]46 Jan, [facility] [place] [facility] [address] [id number] [place] [address] Dec, [facility] [place] [facility] [address] [id number] [place] [address] Dec, [facility] [place] [facility] [address] [id number] [place] [address] Dec, [facility] [place] [facility] [address] [id number] [place] [address] Nov, [facility] [place] [facility] [address] [id number] [place] [address] October, [facility] [place] [facility] [address] [id number] [place] [address] October, [facility] [place] [facility] [address] [id number] [place] [address]246 October, [facility] [place] [facility] [address] [id number] [place] [address]46 October, [facility] [place] [facility] [address] [id number] [place] [address] 2546 October, [facility] [place] [facility] [address] [id number] [place] [address]- 2046 Sep, [facility] [place] [facility] [address] [id number] [place] [address] Sep, [facility] [place] [facility] [address] [id number] [place] [address] 13 Sep, 2011 [facility] [address] [id number] [place] [address] 12 Sep, 2011 [facility] [address] [id number] [place] [address] 1116 12 Sep, 2011 [facility] [address] [id number] [place] [address]996 11 Sep, 2011 [facility] [address] [id number] [place] [address]169 11 Sep, 2011 [facility] [address] [id number] [place] [address] 7703 28 Aug, 2011 [facility] [address] [id number] [place] [address]161 23 Aug, 2011 [facility] [address] [id number] [place] [address] 4812 21 Aug, 2011 [facility] [address] [id number] [place] [address] 9316 21 Aug, 2011 [facility] [address] [id number] [place] [address] 1793 20 Aug, 2011 [facility] [address] [id number] [place] [address] 6717 19 Aug, 2011 [facility] [place] [facility] [address] [id number] [place] [address] 2546 16 Aug, 2011 [facility] [address] [id number] [place] [address]- 2546 15 Aug, 2011 [facility] [place] [facility] [address] [id number] [place] [address]- 4746 15 Aug, 2011 [facility] [place] [facility] [address] [id number] [place] [address]- 2546 14 Aug, 2011 [facility] [address] [id number] [place] [address] 8518 Aug, [facility] [address] [id number] [place] [address]- 3397 08 Aug, 2011 [facility] [place] [facility] [address] [id number] [place] [address]- 7266 15 Jul, 2011 [facility] [place] [facility] [address] [id number] [place] [address]- 0516 15 Jul, 2011 [facility] [place] [facility] [address] [id number] [place] [address]- 3696 14 Jul, 2011 [facility] [place] [facility] [address] [id number] [place] [address]- 7716 Jul, [facility] [place] [facility] [address] [id number] [place] [address]- 1596 Jul, [facility] [place] [facility] [address] [facility] [id number] [place] [address]- [address] Jun, [facility] [place] [facility] [address] [id number] [place] [address]- 7609 Jun, [facility] [place] [facility] [address] [id number] [place] [address] 8820 Jun, [facility] [place] [facility] [address] [facility] [id number] [place] [address] May, [facility] [place] [facility] [address] [id number] [place] [address]- 9[address] May, [facility] [place] [facility] [address] [id number], [place] [address] May, [facility] [place] [facility] [address] [id number] [place] [address]156 May, [facility] [place] [facility] [address] [id number] [place] [address]- 0376 14 May, 2011 [facility] [place] [facility] [address] [id number] [place] [address]- 3616 16 Apr, 2011 [facility] [place] [facility] [address] [id number] [place] [address]- 9931 16 Apr, 2011 [facility] [place] [facility] [address] [id number] [place] [address]- 2311 15 Apr, 2011 [facility] [place] [facility] [address] [id number] [place] [address]- 8066 14 Apr, 2011 [facility] [place] [facility] [address] [id number] [place] [address]- 2181 25 Mar, 2011 [facility] [place] [facility] [address] [id number] [place] [address]- 8535 24 Mar, 2011 [facility] [place] [facility] [address] [id number] [place] [address]- 2111 Mar, [facility] [place] [facility] [address] [id number] [place] [address]- 6677 19 Mar, 2011 [facility] [place] [facility] [address] [id number] [place] [address]- 3145 17 Mar, 2011 [facility] [place] [facility] [address] [id number] [place] [address]- 6533 17 Mar, 2011 [facility] [place] [facility] [address] [id number] [place] [address]- 1785 16 Feb, 2011 [facility] [place] [facility] [address] [facility] [id number] [place] [address]- 4509 Nov, [facility] [place] [facility] [address] [id number] [place] [address]- 6147 17 Aug, 2010 [facility] [place] [facility] [address] [id number] [place] [address]- 9108 Apr, [facility] [place] [facility] [address] [id number] [place] [address]- 4266 16 Mar, 2010 [facility] [place] [facility] [address] [id number] [place] [address]- 0482 Apr, [facility] [place] [facility] [address] [id number] [place] [address]- 0531 Apr, [facility] [address] [facility] [id number] [place] [address]- 290[address] Sep, [facility] [address] [facility] [id number], [place] [address] Mar, IMMUNIZATIONS No Known Immunizations SOCIAL HISTORY Never Assessed REASON FOR VISIT repository meds PLAN OF CARE VITAL SIGNS MEDICATIONS Medication Instructions Dosage Frequency Start Date End Date Duration Status Crestor 10 MG Orally Once a day 1 tablet 24h 16 Feb, 2014 90 days Active Propranolol HCl 40 mg Orally Twice a day 1 tablet 12h October, 30 days Active Farxiga 10 mg Orally Once a day 1 tablet 24h 18 May, 2017 90 days Active Micardis 20 MG Orally [...]
--- NOTE | 2018-06-19 13:41 | NUR ---
PT STATES THE MEDS HAVE HELPED A LITTLE. PT IS NO LONGER VOMITING OR CRYING IN PAIN.
[2018-06-19 13:42] LABS: ALANINE AMINOTRANSFERASE 13 U/L (0-55); ALBUMIN 4.2 GM/DL (3.2-4.5); ALKALINE PHOSPHATASE 43 U/L (40-136); AMYLASE 49 U/L (25-125); BILIRUBIN,TOTAL 0.7 MG/DL (0.1-1.0); BUN/CREATININE RATIO 12; CALCIUM 9.6 MG/DL (8.5-10.1); CARBON DIOXIDE 22 MMOL/L (21-32); CHLORIDE 104 MMOL/L (98-107); CREATININE SERUM 0.94 MG/DL (0.60-1.30); GFR ESTIMATED > 60; GLUCOSE 169 MG/DL (70-105); LIPASE 21 U/L (8-78); POTASSIUM 4.5 MMOL/L (3.6-5.0); SODIUM 140 MMOL/L (135-145); TOTAL PROTEIN 7.7 GM/DL (6.4-8.2)
--- OUTSIDE RECORDS SUMMARY | 2018-06-19 13:42 | XMS REPORT ---
Author Author ARISTEO ARAYA Organization [facility] Address [address] [place] [address] Care Team Providers Care Wire Roller Name Role Phone ARISTEO ARYAA Unavailable PROBLEMS Type Condition ICD9-CM Code [id number] Code Onset Dates Condition Status SNOMED Code Problem Migraine without aura and without status migrainosus, not intractable G43.009 Active 495423971 Problem Other chronic pain G89.29 Active 44809457 Problem Fibromyalgia M79.7 Active 936930172 Problem Other chronic gastritis without hemorrhage K29.50 Active 9877904 Problem Unsteady gait R26.81 Active 50961052 Problem Hypertension, benign I10 Active 62054704 Problem Bronchitis J40 Active 90268311 Problem Eosinophilic colitis K52.82 Active 61252471 Problem Non morbid obesity due to excess calories E66.09 Active 142832779 ALLERGIES No Information SOCIAL HISTORY Never Assessed PLAN OF CARE VITAL SIGNS MEDICATIONS Medication Instructions Dosage Frequency Start Date End Date Duration Status Glucocard Expression Test - test blood sugar Aug, Active Glucocard Expression Monitor w/Device as directed Aug, Active RESULTS No Results PROCEDURES No [...]
--- OUTSIDE RECORDS SUMMARY | 2018-06-19 13:42 | XMS REPORT ---
Author Author ARISTEO ARAYA Organization [facility] Address [address] [place] [address] Care Team Providers Care Private Equity Analyst Name Role Phone ARISTEO ARAYA Unavailable PROBLEMS Type Condition ICD9-CM Code [id number] Code Onset Dates Condition Status SNOMED Code Problem Hypertension, benign I10 Active 93884341 Problem Eosinophilic colitis K52.82 Active 69825542 Problem Non morbid obesity due to excess calories E66.09 Active 535581162 Problem Migraine without aura and without status migrainosus, not intractable G43.009 Active 696181100 Problem Fibromyalgia M79.7 Active 069180445 Problem Other chronic pain G89.29 Active 01365786 Problem Bronchitis J40 Active 75693298 Problem Paresthesias in left hand R20.2 Active 199751442 Problem GERD with esophagitis K21.0 Active 981127893 Problem Other chronic gastritis without hemorrhage K29.50 Active 6374631 Problem Unsteady gait R26.81 Active 24130314 Problem Sacral pain M53.3 Active 72053547 Problem Non morbid obesity E66.9 Active 542244615 ALLERGIES No Information ENCOUNTERS Encounter Location Date Diagnosis [place] [address] [address]- [address] Sep, [facility] [address] [id number] [place] [address] 30154- 7616 Aug, [place] [address] [place] [id number] [place] [address] 48082- 7624 Aug, Fibromyalgia M79.7 ; Frequent headaches R51 and Non morbid obesity due to excess calories E66.09 [facility] [id number] [place] [address] 31550- 6636 Jul, [place] [address] 48215- 8852 Jul, Fibromyalgia M79.7 [place] [address] 29181- 1468 Jul, Viral gastroenteritis A08.4 and Paresthesias in left hand R20.2 [place] [address] 83805- 9728 Jun, Non morbid obesity due to excess calories E66.09 [place] [address] 61501- 5047 Jun, [place] [address] 66406- 9737 Jun, Fibromyalgia M79.7 [place] [address] 83390- 6182 May, Non morbid obesity due to excess calories E66.09 and Hypertension, benign I10 [address] 83960- 6987 May, GERD with esophagitis K21.[address] 24966- 5075 Apr, BMI 40.0-44.9, adult Z68.41 and Non morbid obesity E66.[address] 46128- 7323 Mar, Unsteady gait R26.81 [place] [address] 67587- 5436 Mar, Unsteady gait R26.81 ; Sacral pain M53.3 and Fibromyalgia M79.[address] 73799- 3914 Mar, Non morbid obesity due to excess calories E66.09 [place] [address] 28317- 9569 Feb, Abdominal pain, generalized R10.84 [place] [address] [place] [id number] [place] [address] 84057- 9248 18 Feb, 2017 Other chronic gastritis without hemorrhage K29.50 and H. pylori infection A04.8 [place] [address] 53772- 6259 07 Feb, 2017 Back pain 724.5 ; Pain in left shoulder M25.512 ; Fibromyalgia M79.7 and Non morbid obesity due to excess calories E66.09 [place] [address] 61005- 2702 07 Feb, 2017 BMI 40.0-44.9, adult Z68.[address] 93677- 1343 14 Jan, 2017 Dysuria R30.0 and Acute cystitis with hematuria N30.[address] 92654- 8788 Jan, Dysuria R30.0 [place] [address] 73573- 1544 Dec, Fibromyalgia M79.[address] 72780- 9539 Dec, Screening for diabetes mellitus Z13.1 and Fibromyalgia M79.[address] 80391- 9748 Dec, Fibromyalgia M79.7 [place] [address] 96332- 2935 Dec, [place] [address] 81085- 2611 Dec, Fibromyalgia M79.7 [place] [address] 33816- 2290 Nov, Foreign body in foot, left, initial encounter S90.852A [place] [address] 14719- 9718 Nov, Viral gastroenteritis A08.4 [place] [address] [place] [id number] [place] [address] 23677- 7571 Nov, Fall, initial encounter W19.XXXA ; Post-traumatic headache, unspecified, not intractable G44.309 ; Dizziness R42 ; Unsteady gait R26.81 ; Sacral pain M53.3 and Non morbid obesity due to excess calories E66.09 [place] [address] 94916- 0631 Nov, [place] [address] 30380- 4384 Nov, [place] [address] 32182- 0416 October, Non morbid obesity due to excess calories E66.09 and Hypertension, benign I10 [address] 60296- 4651 October, Fibromyalgia M79.7 [place] [address] 47591- 5985 Sep, [place] [address] 27261- 0763 Sep, [place] [address] 40223- 5410 Sep, Eosinophilic colitis K52.82 [place] [address] 23993- 6417 Aug, Bronchitis J40 [place] [address] [place] [id number] [place] [address] 48309- 6809 Aug, [place] [address] 98341- 9225 Aug, Pain in left shoulder M25.512 ; Bronchitis J40 ; Acute midline back pain, unspecified location M54.9 ; Migraine without aura and without status migrainosus, not intractable G43.009 ; Fibromyalgia M79.7 and Pain of upper abdomen R10.10 [facility] [address] [address] 1636 Aug, [facility] [address] [id number] [place] [address] 56587- 2077 Aug, [facility] [id number] [place] [address] 75501- 2823 Jul, Other viral agents as the cause of diseases classified elsewhere B97.89 and Acute upper respiratory infection, unspecified J06.9 [facility] [address] [place] [id number] [place] [address] 07639- 3007 Jun, [facility] [address] [id number] [place] [address] 76730 -2235 Jun, [facility] [address] [place] [address] [id number] [place] [address] 38448- 7825 May, Abscess L02.91 [facility] [address] [address] [id number] [place] [address] 73317- 7778 May, Acute midline low back pain without sciatica M54.5 [facility] [id number] [place] [address] 73711 -2452 May, [facility] [address] [place] [address] [id number] [place] [address] 37948- 4138 Apr, [facility] [address] [place] [id number] [place] [address] 01238- 2638 Apr, Other chronic pain G89.29 ; Pain in right shoulder M25.511 and Pain in left shoulder M25.512 [place] [address] [place] [id number] [place] [address] 13025- 3017 Apr, [facility] [address] [place] [id number] [place] [address] 21532- 4223 Apr, [facility] [address] [place] [id number] [place] [address] 83398- 0270 Apr, Fibromyalgia M79.7 ; Other chronic pain G89.29 and Pain in left shoulder M25.512 [facility] [id number] [place] [address] 22834 2546 Apr, Bronchitis J40 [facility] [address] [place] [address] [id number] [place] [address] 72604 2547 27 Mar, 2016 [facility] [address] [id number] [place] [address] [id number] Mar, [facility] [address] [place] [id number] [place] [address] 29455 2547 29 Feb, 2015 [facility] [id number] [place] [address] 98385 2546 26 Feb, 2016 [facility] [address] [id number] [place] [address] 23718 2541 23 Feb, 2016 [facility] [id number] [place] [address] 47183- 6774 22 Feb, 2016 [facility] [address] [place] [id number] [place] [address] 62082 2543 20 Feb, 2015 [facility] [address] [place] [id number] [place] [address] 96688 254 19 Feb, 2015 [facility] [address] [place] [id number] [place] [address] 85184 254 19 Feb, 2015 Dysuria R30.0 [facility] [address] [place] [id number] [place] [address] 65299 2540 19 Feb, 2015 Dysuria R30.0 [facility] [id number] [place] [address] 58242 2546 16 Feb, 2015 [facility] [address] [place] [id number] [place] [address] 01898 2541 15 Feb, 2016 Migraine, unspecified, not intractable, without status migrainosus G43.909 and Fibromyalgia M79.7 [facility] [address] [place] [id number] [place] [address] 65344- 2543 06 Feb, 2016 Migraine without aura and without status migrainosus, not intractable G43.009 [facility] [address] [place] [id number] [place] [address] 53811- 1129 Jan, [facility] [address] [place] [id number] [place] [address] 04779- 9234 Jan, [facility] [address] [place] [id number] [place] [address] 68154- 6058 Jan, [facility] [address] 96308- 2469 Jan, [facility] [address] [place] [id number] [place] [address] 77917- 8870 Jan, Unsteady gait R26.81 ; Fibromyalgia M79.7 and Family history of rheumatoid arthritis Z82.61 [place] [address] [place] [id number] [place] [address] 47883- 5741 Dec, [place] [address] 23108- 8049 Dec, [facility] [address] [place] [id number] [place] [address] 10963- 0387 Nov, Pain in left shoulder M25.512 [place] [address] [place] [id number] [place] [address] 25888- 3479 October, Viral gastroenteritis A08.4 [facility] [id number] [place] [address] 78244 -5449 October, Pain of upper abdomen R10.10 [facility] [address] [id number] [place] [address] 06375- 5766 October, Acute midline back pain, unspecified location M54.9 [facility] [address] [place] [id number] [place] [address] 44904- 1898 Aug, Elbow pain, right M25.521 [place] [address] [id number] [place] [address] 31779- 2843 Aug, Elbow pain, right M25.521 [facility] [id number] [place] [address] 65012- 4657 Aug, Pain of right upper extremity M79.601 [facility] [address] 44214- 3556 Jun, Lumbar neuritis M54.16 [place] [address] 91868- 9428 May, [place] [address] 02145- 7585 Apr, Non morbid obesity due to excess calories E66.09 [place] [address] 35770- 6369 Apr, Non morbid obesity due to excess calories E66.09 and Thoracic neuritis M54.14 [place] [address] 65819- 9261 Apr, Elbow pain, right M25.521 [place] [address] 88123- 9227 Mar, Right elbow pain M25.521 [place] [address] 82364- 0978 Mar, [place] [address] [place] [id number] [place] [address] 67243- 1337 Feb, Urinary tract infection, site not specified 599.0 [place] [address] [place] [id number] [place] [address] 09494- 9427 Feb, [place] [address] 40179- 1968 Jan, Spider bite 989.5 [place] [address] 65878- 8217 Jan, Spider bite 989.5 [place] [address] 66950- 8709 Jan, Spider bite 989.5 [facility] [id number] [place] [address] 26639- 1345 10 Nov, 2014 Back pain 724.5 and Diabetes 250.00 [facility] [address] [place] [place] [id number] [place] [address] 52615- 4188 Nov, Back pain 724.5 and Muscle spasm of back 724.8 [facility] [address] 17843- 8821 Nov, Alternating constipation and diarrhea 787.99 [facility] [address] 47927- 2423 October, Back pain 724.5 and Hip pain 719.45 [facility] [address] [place] [id number] [place] [address] 21149- 2837 Sep, [facility] [address] 01580- 7955 Sep, [facility] [address] [id number] [place] [address] 27458- 8219 Aug, [facility] [id number] [place] [address] 48408- 7758 Aug, [facility] [address] [id number] [place] [address] 01002- 5222 Aug, [facility] [id number] [place] [address] 91371- 6079 Aug, [facility] [id number] [place] [address] 11836- 3570 Aug, [facility] [id number] [place] [address] 34725- 2514 Aug, [facility] [id number] [place] [address] 77718- 5774 Jul, [facility] [address] 35771- 2684 Jul, [facility] [place] [facility] [address] [id number] [place] [address]- 2027 Jun, [facility] [place] [facility] [address] [id number] [place] [address]- 0495 Jun, [facility] [place] [facility] [address] [id number] [place] [address]- 6777 Jun, [facility] [place] [facility] [address] [id number] [place] [address]- 6857 Jun, [facility] [place] [facility] [address] [id number] [place] [address]- 5939 Jun, [facility] [place] [facility] [address] [id number] [place] [address]- 0263 Jun, [facility] [place] [facility] [address] [id number] [place] [address]- 0204 Jun, [facility] [place] [facility] [address] [id number] [place] [address]- 7541 May, [facility] [place] [facility] [address] [id number] [place] [address]- 8186 May, [facility] [place] [facility] [address] [id number] [place] [address]- 5522 May, [facility] [place] [facility] [address] [id number] [place] [address]- 1790 May, [facility] [place] [facility] [address] [id number] [address]- 7516 Apr, [facility] [place] [facility] [address] [id number] [place] [address]- 3563 Apr, [facility] [place] [facility] [address] [id number] [place] [address]- 3234 Mar, [facility] [place] [facility] [address] [id number] [place] [address]- 9247 Mar, [facility] [place] [facility] [address] [id number] [place] [address]- 3386 Mar, [facility] [place] [facility] [address] [id number] [place] [address]- 3361 Mar, [facility] [place] [facility] [address] [id number] [place] [address]- 4909 Mar, [facility] [place] [facility] [address] [id number] [place] [address]- 9530 Mar, [facility] [place] [facility] [address] [id number] [place] [address]- 1411 Mar, [facility] [place] [facility] [address] [id number] [place] [address]- 7059 Mar, [facility] [place] [facility] [address] [id number] [place] [address]- 6900 Mar, [facility] [place] [facility] [address] [id number] [place] [address]- 4635 Mar, [facility] [place] [facility] [address] [id number] [place] [address]- 6284 Feb, [facility] [place] [facility] [address] [id number] [place] [address]- 3172 Feb, [facility] [place] [facility] [address] [id number] [place] [address]- 5543 Jan, [facility] [place] [facility] [address] [id number] [place] [address]- 4111 Jan, [facility] [place] [facility] [address] [id number] [place] [address]- 3368 Jan, [facility] [place] [facility] [address] [id number] [place] [address]- 8519 Jan, [facility] [place] [facility] [address] [id number] [place] [address]- 4525 Jan, [facility] [place] [facility] [address] [id number] [place] [address]- 0204 Jan, [facility] [place] [facility] [address] [id number] [place] [address]- 9963 Jan, [facility] [place] [facility] [address] [id number] [place] [address]- 4820 Jan, [facility] [place] [facility] [address] [id number] [place] [address]- 2980 Jan, [facility] [place] [facility] [address] [id number] [place] [address]- 6945 Jan, [facility] [place] [facility] [address] [id number] [place] [address]- 4733 Dec, [facility] [place] [facility] [address] [id number] [place] [address]- 4862 Dec, [facility] [place] [facility] [address] [id number] [place] [address]- 9018 Dec, [facility] [place] [facility] [address] [id number] [place] [address]- 1357 Dec, [facility] [place] [facility] [address] [id number] [place] [address]- 7619 Nov, [facility] [place] [facility] [address] [id number] [place] [address]- 4113 Nov, [facility] [place] [facility] [address] [id number] [place] [address]- 4305 Nov, [facility] [place] [facility] [address] [id number] [place] [address]- 0430 Nov, [facility] [place] [facility] [address] [id number] [place] [address]- 1769 October, [facility] [place] [facility] [address] [id number] [place] [address]- 0223 October, [facility] [place] [facility] [address] [id number] [place] 1085 Sep, [facility] [place] [facility] [address] [id number] [place] [address]- 0146 14 Sep, 2013 [facility] [place] [facility] [address] [id number] [place] [address]- 4074 Sep, [facility] [place] [facility] [address] [id number] [place] [address]- 4720 Sep, [facility] [place] [facility] [address] [id number] [place] [address]- 6010 Sep, [facility] [place] [facility] [address] [id number] [place] [address]- 7584 Sep, [facility] [place] [facility] [address] [id number] [place] [address]- 3794 Sep, [facility] [place] [facility] [address] [id number] [place] [address]- 0615 Sep, [facility] [place] [facility] [address] [id number] [place] [address]- 3743 Sep, [facility] [place] [facility] [address] [id number] [place] [address]- 3542 Sep, [facility] [place] [facility] [address] [id number] [place] [address]- 9140 Jul, [facility] [place] [facility] [address] [id number] [place] [address]- 4159 Jul, [facility] [place] [facility] [address] [id number] [place] [address]- 3500 Jul, [facility] [place] [facility] [address] [id number] [place] [address]- 5438 Jul, [facility] [place] [facility] [address] [id number] [place] [address]- 5412 Jun, [facility] [place] [facility] [address] [id number] [place] [address]- 2735 Jun, [facility] [place] [facility] [address] [id number] [place] [address]- 1630 Jun, [facility] [place] [facility] [address] [id number] [place] [address]- 9271 15 Jun, 2013 [facility] [place] [facility] [address] [id number] [place] [address]- 7710 Jun, [facility] [place] [facility] [address] [id number] [place] [address]- 6833 Jun, [facility] [place] [facility] [address] [id number] [place] [address]- 4490 Apr, [facility] [address] [id number] [place] [address]- 7559 Apr, [facility] [place] [facility] [address] [id number] [place] [address]- 2918 Apr, [facility] [address] [id number] [place] [address]- 5863 Apr, [facility] [address] [id number] [place] [address]- 9002 Apr, [facility] [place] [facility] [address] [id number] [place] [address]- 8050 Apr, [facility] [place] [facility] [address] [id number] [place] [address]- 2076 Apr, [facility] [place] [facility] [address] [id number] [place] [address]- 6182 Apr, [facility] [place] [facility] [address] [id number] [place] [address]- 8941 Mar, [facility] [place] [facility] [address] [id number] [place] [address]- 7141 Mar, [facility] [place] [facility] [address] [id number] [place] [address]- 3568 Feb, [facility] [place] [facility] [address] [id number] [place] [address] Feb, [facility] [place] [facility] [address] [id number] [place] [address] Dec, [facility] [address] [id number] [place] [address] Dec, [facility] [place] [facility] [address] [id number] [place] [address] Dec, [facility] [place] [facility] [address] [id number] [place] [address] Dec, [facility] [place] [facility] [address] [id number] [place] [address] Dec, [facility] [place] [facility] [address] [id number] [place] [address] Dec, [facility] [place] [facility] [address] [id number] [place] [address] Dec, [facility] [place] [facility] [address] [id number] [place] [address] Nov, [facility] [place] [facility] [address] [id number] [place] [address] Nov, [facility] [place] [facility] [address] [id number] [place] [address] Nov, [facility] [place] [facility] [address] [id number] [place] [address] Nov, [facility] [place] [facility] [address] [id number] [place] [address] October, [facility] [place] [facility] [address] [id number] [place] [address] October, [facility] [place] [facility] [address] [id number] [place] [address] October, [facility] [place] [facility] [address] [id number] [place] [address] October, [facility] [place] [facility] [address] [id number] [place] [address] Sep, [facility] [place] [facility] [address] [id number] [place] [address] 30 Aug, 2012 [facility] [address] [id number] [place] [address] 29 Aug, 2012 [facility] [place] [facility] [address] [id number] [place] [address]- [address] 22 Aug, 2012 [facility] [address] [id number] [place] [address] 21 Aug, 2012 [facility] [place] [facility] [address] [id number] [place] [address] 13 Aug, 2012 [facility] [address] [id number] [place] [address] 27 Jul, 2012 [facility] [place] [facility] [address] [facility] [id number] [place] [address] 27 Jul, 2012 [facility] [place] [facility] [address] [id number] [place] [address] 26 Jul, 2012 [facility] [address] [id number] [place] [address] 25 Jul, 2012 [facility] [place] [facility] [address] [facility] [id number] [place] [address] 25 Jul, 2012 [facility] [place] [facility] [address] [facility] [id number] [place] [address] 23 Jul, 2012 [facility] [place] [facility] [address] [facility] [id number] [place] [address] 20 Jul, 2012 [facility] [place] [facility] [address] [id number] [place] [address] 15 Jul, 2012 [facility] [place] [facility] [address] [id number] [place] [address] 14 Jul, 2012 [facility] [place] [facility] [address] [facility] [id number] [place] [address]- [address] 11 Jul, 2012 [facility] [place] [facility] [address] [facility] [id number] [place] [address] Jun, [facility] [place] [facility] [address] [id number] [place] [address]- [address] Jun, [facility] [place] [facility] [address] [id number] [place] [address] Jun, [facility] [place] [facility] [address] [facility] [id number] [place] [address] May, [facility] [place] [facility] [address] [id number] [place] [address] May, [facility] [place] [facility] [address] [id number] [place] [address]- [address] Apr, [facility] [place] [facility] [address] [id number] [place] [address]- [address] Apr, [facility] [place] [facility] [address] [id number] [place] [address] Apr, [facility] [place] [facility] [address] [id number] [place] [address]- 14[address] Apr, [facility] [place] [facility] [address] [facility] [id number] [place] [address] Apr, [facility] [place] [facility] [address] [facility] [id number] [place] [address] Apr, [facility] [place] [facility] [address] [id number] [place] [address] Apr, [facility] [place] [facility] [address] [id number] [place] [address]- [address] Apr, [facility] [place] [facility] [address] [id number] [address] Mar, [facility] [place] [facility] [address] [facility] [id number] [place] [address] Mar, [facility] [place] [facility] [address] [facility] [id number] [place] [address] Mar, [facility] [place] [facility] [address] [id number] [place] [address] Mar, [facility] [place] [facility] [address] [id number] [place] [address] Mar, [facility] [place] [facility] [address] [id number] [place] [address] 2546 Mar, [facility] [place] [facility] [address] [id number] [place] [address] Mar, [facility] [place] [facility] [address] [id number] [place] [address] Mar, [facility] [place] [facility] [address] [id number] [place] [address] Mar, [facility] [place] [facility] [address] [id number] [place] [address] Feb, [facility] [place] [facility] [address] [id number] [place] [address] Jan, [facility] [place] [facility] [address] [id number] [place] [address] Jan, [facility] [place] [facility] [address] [id number] [place] [address] Jan, [facility] [place] [facility] [address] [id number] [place] [address] Dec, [facility] [place] [facility] [address] [id number] [place] [address] Dec, [facility] [place] [facility] [address] [id number] [place] [address] Dec, [facility] [place] [facility] [address] [id number] [place] [address] Nov, [facility] [place] [facility] [address] [id number] [place] [address]46 October, [facility] [place] [facility] [address] [id number] [place] [address] October, [facility] [address] [id number] [place] [address] October, [facility] [place] [facility] [address] [id number] [place] [address] 8567 October, [facility] [place] [facility] [address] [id number] [place] [address]10 October, [facility] [place] [facility] [address] [id number] [place] [address] 30 Sep, 2011 [facility] [place] [facility] [address] [id number] [place] [address] Sep, [facility] [place] [facility] [address] [id number] [place] [address] Sep, [facility] [place] [facility] [address] [id number] [place] [address] Sep, [facility] [place] [facility] [address] [id number] [place] [address] 5314 Sep, [facility] [place] [facility] [address] [id number] [place] [address] Sep, [facility] [place] [facility] [address] [id number] [place] [address]- [address] Sep, [facility] [place] [facility] [address] [id number] [place] [address]- [address] Aug, [facility] [place] [facility] [address] [id number] [place] [address]- [address] Aug, [facility] [place] [facility] [address] [id number] [place] [address]- 8787 Aug, [facility] [place] [facility] [address] [id number] [place] [address] Aug, [facility] [place] [facility] [address] [id number] [place] [address]70 Aug, [facility] [place] [facility] [address] [id number] [place] [address]- [address]361 19 Aug, 2011 [facility] [address] [id number] [place] [address]- [address] 16 Aug, 2011 [facility] [place] [facility] [address] [id number] [place] [address]- [address]186 15 Aug, 2011 [facility] [place] [facility] [address] [id number] [place] [address]- 9656 15 Aug, 2011 [facility] [place] [facility] [address] [id number] [place] [address]- 2968 14 Aug, 2011 [facility] [address] [id number] [place] [address]- [address] 12 Aug, 2011 [facility] [place] [facility] [address] [id number] [place] [address]- 7916 08 Aug, 2011 [facility] [address] [id number] [place] [address] 15 Jul, 2011 [facility] [place] [facility] [address] [id number] [place] [address]- [address] 15 Jul, 2011 [facility] [place] [facility] [address] [id number] [place] [address]- 1020 14 Jul, 2011 [facility] [address] [facility] [id number] [place] [address]- [address] 06 Jul, 2011 [facility] [place] [facility] [address] [id number] [place] [address]- 8546 02 Jul, 2011 [facility] [place] [facility] [address] [id number] [place] [address]- [address]05 Jun, [facility] [place] [facility] [address] [id number] [place] [address]- 1686 Jun, [facility] [place] [facility] [address] [id number] [place] [address]- 6736 Jun, [facility] [place] [facility] [address] [facility] [id number] [place] [address] May, [facility] [place] [facility] [address] [id number] [place] [address]107 May, [facility] [place] [facility] [address] [id number] [place] [address]- 2326 May, [facility] [place] [facility] [address] [id number] [place] [address]- 7684 May, [facility] [place] [facility] [address] [id number] [place] [address]- 2360 May, [facility] [place] [facility] [address] [id number] [place] [address]- [address]096 Apr, [facility] [place] [facility] [address] [id number] [place] [address]- 6040 16 Apr, 2011 [facility] [place] [facility] [address] [id number] [place] [address]- 4816 15 Apr, 2011 [facility] [place] [facility] [address] [id number] [place] [address] 14 Apr, 2011 [facility] [place] [facility] [address] [id number] [place] [address]- 0197 25 Mar, 2011 [facility] [place] [facility] [address] [id number] [place] [address]- 7669 24 Mar, 2011 [facility] [place] [facility] [address] [id number] [place] [address] Mar, [facility] [place] [facility] [address] [id number] [place] [address]- [address] 19 Mar, 2011 [facility] [place] [facility] [address] [id number] [place] [address]- 56[address] 17 Mar, 2011 [facility] [place] [facility] [address] [id number] [place] [address]476 17 Mar, 2011 [facility] [place] [facility] [address] [id number] [place] [address]274 16 Feb, 2011 [facility] [place] [facility] [address] [id number] [place] [address]75 10 Nov, 2010 [facility] [address] [id number] [address] Aug, [facility] [address] [id number] [address] Apr, [facility] [address] [id number] [address]30 Mar, [facility] [id number] [address] Apr, [facility] [id number] [address] Apr, [facility] [address] [id number] [address]26 Sep, [facility] [address] [id number] [address] Mar, IMMUNIZATIONS No Known Immunizations SOCIAL HISTORY Never Assessed REASON FOR VISIT triage PLAN OF CARE VITAL SIGNS MEDICATIONS Unknown [...]
--- NOTE | 2018-06-19 13:43 | NUR ---
TRACY IN TALKING TO PT AT THIS TIME.
--- OUTSIDE RECORDS SUMMARY | 2018-06-19 13:43 | XMS REPORT ---
Author Author ARISTEO ARAYA Organization [facility] Address [address] [place] [address] Care Team Providers Care Slip Feeder Name Role Phone ARISTEO ARAYA Unavailable PROBLEMS Type Condition ICD9-CM Code [id number] Code Onset Dates Condition Status SNOMED Code Problem Hypertension, benign I10 Active 24124604 Problem Eosinophilic colitis K52.82 Active 37439922 Problem Non morbid obesity due to excess calories E66.09 Active 625138270 Problem Migraine without aura and without status migrainosus, not intractable G43.009 Active 889495707 Problem Fibromyalgia M79.7 Active 929802889 Problem Other chronic pain G89.29 Active 37836030 Problem Bronchitis J40 Active 56150670 Problem Paresthesias in left hand R20.2 Active 138776720 Problem GERD with esophagitis K21.0 Active 352495561 Problem Other chronic gastritis without hemorrhage K29.50 Active 3853256 Problem Unsteady gait R26.81 Active 03385749 Problem Sacral pain M53.3 Active 43242632 Problem Non morbid obesity E66.9 Active 124629357 ALLERGIES Substance Reaction Event Type Date Status Singulair Unknown Drug Allergy Nov, Active Lisinopril Unknown Drug Allergy Nov, Active metals Unknown Non Drug Allergy Nov, Active ENCOUNTERS Encounter Location Date Diagnosis [facility] [id number], [place] [address] Sep, [facility] [address], [place] [address] Aug, [place] [id number] [place] [address] 80101- 3331 Aug, Fibromyalgia M79.7 ; Frequent headaches R51 and Non morbid obesity due to excess calories E66.09 [facility] [id number] [place] [address] 80914- 9499 Jul, [place] [id number] [place] [address] 49576- 2837 Jul, Fibromyalgia M79.7 [place] [address] 93081- 0559 Jul, Viral gastroenteritis A08.4 and Paresthesias in left hand R20.2 [place] [address] 36384- 2506 Jun, Non morbid obesity due to excess calories E66.09 [place] [address] 73168- 4691 Jun, [place] [address] 82462- 2544 Jun, Fibromyalgia M79.7 [place] [address] 75503- 4251 May, Non morbid obesity due to excess calories E66.09 and Hypertension, benign I10 [place] [id number] [place] [address] 38563- 3796 May, GERD with esophagitis K21.0 [place] [address] 84635- 0337 Apr, BMI 40.0-44.9, adult Z68.41 and Non morbid obesity E66.9 [place] [id number] [place] [address] 91261- 8031 Mar, Unsteady gait R26.81 [place] [id number] [place] [address] 07705- 1390 Mar, Unsteady gait R26.81 ; Sacral pain M53.3 and Fibromyalgia M79.7 [place] [id number] [place] [address] 42986- 5315 Mar, Non morbid obesity due to excess calories E66.09 [place] [address] 00091- 1705 28 Feb, 2017 Abdominal pain, generalized R10.84 [place] [address] 46215- 4463 18 Feb, 2017 Other chronic gastritis without hemorrhage K29.50 and H. pylori infection A04.8 [place] [address] 49287- 8549 07 Feb, 2017 Back pain 724.5 ; Pain in left shoulder M25.512 ; Fibromyalgia M79.7 and Non morbid obesity due to excess calories E66.09 [place] [address] 89423- 0523 07 Feb, 2017 BMI 40.0-44.9, adult Z68.41 [place] [address] 93853- 3454 14 Jan, 2017 Dysuria R30.0 and Acute cystitis with hematuria N30.01 [place] [address] 74876- 4165 10 Jan, 2017 Dysuria R30.0 [place] [address] 67613- 4436 Dec, Fibromyalgia M79.7 [place] [address] 29825- 5474 Dec, Screening for diabetes mellitus Z13.1 and Fibromyalgia M79.7 [place] [address] 87413- 3233 Dec, Fibromyalgia M79.7 [place] [address] 21500- 4686 Dec, [place] [address] 27547- 4629 Dec, Fibromyalgia M79.7 [place] [address] 13018- 1014 Nov, Foreign body in foot, left, initial encounter S90.852A [facility] [id number] [place] [address] 54709- 6639 Nov, Viral gastroenteritis A08.4 [place] [address] 84952- 1003 Nov, Fall, initial encounter W19.XXXA ; Post-traumatic headache, unspecified, not intractable G44.309 ; Dizziness R42 ; Unsteady gait R26.81 ; Sacral pain M53.3 and Non morbid obesity due to excess calories E66.09 [place] [address] 45986- 2635 Nov, [place] [address] 80277- 2395 Nov, [place] [address] 92823- 2172 October, Non morbid obesity due to excess calories E66.09 and Hypertension, benign I10 [place] [address] 45048- 6540 October, Fibromyalgia M79.7 [place] [address] 55173- 3461 Sep, [place] [address] 18767- 0159 Sep, [place] [address] 90042- 7286 Sep, Eosinophilic colitis K52.82 [facility] [address] 99515- 0401 Aug, Bronchitis J40 [facility] [address] 42477- 4853 Aug, [place] [address] 99366- 9348 Aug, Pain in left shoulder M25.512 ; Bronchitis J40 ; Acute midline back pain, unspecified location M54.9 ; Migraine without aura and without status migrainosus, not intractable G43.009 ; Fibromyalgia M79.7 and Pain of upper abdomen R10.10 [place] [id number] [place] [address] 13625- 9899 Aug, [facility] [id number] [place] [address] 93454- 2469 Aug, [facility] [id number] [place] [address] 82388- 2539 Jul, Other viral agents as the cause of diseases classified elsewhere B97.89 and Acute upper respiratory infection, unspecified J06.9 [place] [id number] [place] [address] 55311- 9757 Jun, [facility] [id number] [place] [address] 95815 -2230 Jun, [facility] [id number] [place] [address] 98103- 2902 May, Abscess L02.91 [place] [address] 90119- 4067 May, Acute midline low back pain without sciatica M54.5 [facility] [id number] [place] [address] 73375 -3385 May, [place] [id number] [place] [address] 87058- 8064 Apr, [place] [id number] [place] [address] 78807- 2802 Apr, Other chronic pain G89.29 ; Pain in right shoulder M25.511 and Pain in left shoulder M25.512 [facility] [id number] [place] [address] 68164- 5879 16 Apr, 2016 [place] [id number] [place] [address] 97675- 9920 Apr, [facility] [address], [place] [address] 2542 10 Apr, 2016 Fibromyalgia M79.7 ; Other chronic pain G89.29 and Pain in left shoulder M25.512 [facility] [address], [place] [address] 2546 04 Apr, 2016 Bronchitis J40 [facility] [id number] [place] [address] 97174 2546 27 Mar, 2016 [facility] [id number] [id number] Mar, [facility] [id number] [place] [address] 10540 2542 29 Feb, 2016 [facility] [address] [place] [address] 27619 2546 26 Feb, 2016 [facility] [id number] [place] [address] 25799 2546 23 Feb, 2016 [facility] [address] [place] [address] 60703 2541 22 Feb, 2015 [facility] [id number] [place] [address] 76157 2541 20 Feb, 2016 [facility] [address], [place] [address] 2543 19 Feb, 2015 [facility] [address] [place] [address] 59441 2546 19 Feb, 2015 Dysuria R30.0 [facility] [address] [place] [address] 37890 2547 19 Feb, 2015 Dysuria R30.0 [facility] [address] [place] [address] 74773 2546 16 Feb, 2015 [facility] [address], [place] [address] 2542 15 Feb, 2016 Migraine, unspecified, not intractable, without status migrainosus G43.909 and Fibromyalgia M79.7 [facility] [address] [place] [address] 76064- 8110 Feb, Migraine without aura and without status migrainosus, not intractable G43.009 [facility] [id number] [place] [address] 69375- 1305 Jan, [facility] [id number] [place] [address] 85101- 0499 Jan, [facility] [id number] [place] [address] 28765- 2715 Jan, [facility] [id number] [place] [address] 72977- 3759 Jan, [facility] [id number] [place] [address] 91942- 8222 Jan, Unsteady gait R26.81 ; Fibromyalgia M79.7 and Family history of rheumatoid arthritis Z82.61 [facility] [id number] [place] [address] 51502- 5462 Dec, [facility] [id number] [place] [address] 45998- 6854 Dec, [facility] [id number] [place] [address] 65271- 3468 Nov, Pain in left shoulder M25.512 [facility] [id number] [place] [address] 91824- 9066 October, Viral gastroenteritis A08.4 [facility] [address] [place] [address] 02346 -5870 October, Pain of upper abdomen R10.10 [facility] [id number] [place] [address] 98062- 6520 October, Acute midline back pain, unspecified location M54.9 [facility] [id number] [place] [address] 62743- 7170 Aug, Elbow pain, right M25.521 [facility] [id number] [place] [address] 91692- 4869 18 Aug, 2015 Elbow pain, right M25.521 [facility] [id number] [place] [address] 52897- 6643 04 Aug, 2015 Pain of right upper extremity M79.601 [facility] [address] 68363- 7595 Jun, Lumbar neuritis M54.16 [facility] [address] 68171- 6697 May, [facility] [address] 97910- 1671 Apr, Non morbid obesity due to excess calories E66.09 [place] [address] 54313- 3373 Apr, Non morbid obesity due to excess calories E66.09 and Thoracic neuritis M54.14 [facility] [id number] [place] [address] 69481- 0433 Apr, Elbow pain, right M25.521 [facility] [address] 31465- 3351 Mar, Right elbow pain M25.521 [facility] [id number] [place] [address] 26540- 4020 Mar, [facility] [address] 53976- 4018 30 Feb, 2015 Urinary tract infection, site not specified 599.0 [facility] [address] 57079- 7976 14 Feb, 2015 [facility] [id number] [place] [address] 87881- 2987 11 Jan, 2015 Spider bite 989.5 [facility] [address] 21250- 3745 Jan, Spider bite 989.5 [facility] [id number] [place] [address] 54434- 5561 Jan, Spider bite 989.5 [facility] [address] 74607- 5189 10 Nov, 2014 Back pain 724.5 and Diabetes 250.00 [facility] [address] 32912- 9648 Nov, Back pain 724.5 and Muscle spasm of back 724.8 [facility] [address] 07751- 8828 Nov, Alternating constipation and diarrhea 787.99 [facility] [address] 56659- 3918 October, Back pain 724.5 and Hip pain 719.45 [facility] [address] 92829- 4886 Sep, [facility] [address] 05957- 9180 Sep, [facility] [id number] [place] [address] 97409- 4908 Aug, [facility] [id number] [place] [address] 75138- 7851 Aug, [facility] [id number] [place] [address] 77852- 2478 Aug, [facility] [id number] [place] [address] 34439- 5285 Aug, [facility] [address] 20823- 6765 Aug, [facility] [id number] [place] [address] 42831214- 7737 Aug, [facility] [address] 52263- 8858 Jul, [facility] [address] [id number] [place] [address]- 8230 Jul, [facility] [place] [facility] [address] [id number] [place] [address]- 8439 Jun, [facility] [place] [facility] [address] [id number] [place] [address]- 7861 Jun, [facility] [place] [facility] [address] [id number] [place] [address]- 8781 Jun, [facility] [place] [facility] [address] [id number] [place] [address]- 3105 Jun, [facility] [place] [facility] [address] [id number] [place] [address]- 1127 Jun, [facility] [place] [facility] [address] [id number] [place] [address]- 4674 Jun, [facility] [place] [facility] [address] [id number] [place] [address]- 9137 Jun, [facility] [place] [facility] [address] [id number] [place] [address]- 4770 May, [facility] [place] [facility] [address] [id number] [place] [address]- 6120 May, [facility] [place] [facility] [address] [id number] [place] [address]- 4370 May, [facility] [place] [facility] [address] [id number] [place] [address]- 0043 May, [facility] [place] [facility] [address] [id number] [place] [address]- 1244 Apr, [facility] [place] [facility] [address] [id number] [place] [address]- 0067 Apr, [facility] [place] [facility] [address] [id number] [place] [address]- 0414 29 Mar, 2014 [facility] [place] [facility] [address] [id number] [place] [address]- 5641 Mar, [facility] [place] [facility] [address] [id number] [place] [address]- 5413 Mar, [facility] [place] [facility] [address] [id number] [place] [address]- 0856 Mar, [facility] [place] [facility] [address] [id number] [place] [address]- 2837 Mar, [facility] [place] [facility] [address] [id number] [place] [address]- 6504 Mar, [facility] [place] [facility] [address] [id number] [place] [address]- 6779 Mar, [facility] [place] [facility] [address] [id number] [place] [address]- 4765 Mar, [facility] [place] [facility] [address] [id number] [place] [address]- 1684 Mar, [facility] [place] [facility] [address] [id number] [place] [address]- 8889 Mar, [facility] [place] [facility] [address] [id number] [place] [address]- 2392 Feb, [facility] [place] [facility] [address] [id number] [place] [address]- 7426 Feb, [facility] [place] [facility] [address] [id number] [place] [address]- 9189 Jan, [facility] [place] [facility] [address] [id number] [place] [address]- 7938 Jan, [facility] [place] [facility] [address] [id number] [place] [address]- 4760 Jan, [facility] [place] [facility] [address] [id number] [place] [address]- 4861 Jan, [facility] [place] [facility] [address] [id number] [place] [address]- 3730 Jan, [facility] [place] [facility] [address] [id number] [place] [address]- 2171 Jan, [facility] [place] [facility] [address] [id number] [place] [address]- 4289 Jan, [facility] [place] [facility] [address] [id number] [place] [address]- 8802 Jan, [facility] [place] [facility] [address] [id number] [place] [address]- 2157 Jan, [facility] [place] [facility] [address] [id number] [place] [address]- 5269 Jan, [facility] [place] [facility] [address] [id number] [place] [address]- 8520 Dec, [facility] [place] [facility] [address] [id number] [place] [address]- 4984 Dec, [facility] [place] [facility] [address] [id number] [place] [address]- 3840 Dec, [facility] [place] [facility] [address] [id number] [place] [address]- 2108 Dec, [facility] [place] [facility] [address] [id number] [place] [address]- 2257 Nov, [facility] [place] [facility] [address] [id number] [place] [address]- 1236 Nov, [facility] [place] [facility] [address] [id number] [place] [address]- 5064 Nov, [facility] [place] [facility] [address] [id number] [place] [address]- 6343 Nov, [facility] [place] [facility] [address] [id number] [place] [address]- 3104 October, [facility] [place] [facility] [address] [id number] [place] 0877 October, [facility] [place] [facility] [address] [id number] [place] [address]- 6368 14 Sep, 2013 [facility] [address] [id number] [place] [address]- 4457 Sep, [facility] [place] [facility] [address] [id number] [place] [address]- 3662 Sep, [facility] [place] [facility] [address] [id number] [place] [address]- 0493 Sep, [facility] [place] [facility] [address] [id number] [place] [address]- 3905 Sep, [facility] [place] [facility] [address] [id number] [place] [address]- 7974 Sep, [facility] [place] [facility] [address] [id number] [place] [address]- 5102 Sep, [facility] [place] [facility] [address] [id number] [place] [address]- 0102 Sep, [facility] [place] [facility] [address] [id number] [place] [address]- 7247 Sep, [facility] [place] [facility] [address] [id number] [place] [address]- 6521 Sep, [facility] [place] [facility] [address] [id number] [place] [address]- 0199 Jul, [facility] [place] [facility] [address] [id number] [place] [address]- 3705 Jul, [facility] [place] [facility] [address] [id number] [place] [address]- 0401 Jul, [facility] [place] [facility] [address] [id number] [place] [address]- 2723 Jul, [facility] [place] [facility] [address] [id number] [place] [address]- 1571 Jun, [facility] [place] [facility] [address] [id number] [place] [address]- 4165 Jun, [facility] [place] [facility] [address] [id number] [place] [address]- 2578 15 Jun, 2013 [facility] [place] [facility] [address] [id number] [place] [address]- 8679 15 Jun, 2013 [facility] [place] [facility] [address] [id number] [place] [address]- 6008 Jun, [facility] [place] [facility] [address] [id number] [place] [address]- 6418 Jun, [facility] [place] [facility] [address] [id number] [place] [address]- 3480 Apr, [facility] [place] [facility] [address] [id number] [place] [address]- 7568 Apr, [facility] [place] [facility] [address] [id number] [place] [address]- 0197 Apr, [facility] [place] [facility] [address] [id number] [place] [address]- 7646 Apr, [facility] [place] [facility] [address] [id number] [place] [address]- 3025 Apr, [facility] [place] [facility] [address] [id number], [place] [address]- 2659 Apr, [facility] [place] [facility] [address] [id number], [place] [address]- 7756 Apr, [facility] [place] [facility] [address] [id number], [place] [address]- 0903 Apr, [facility] [place] [facility] [address] [id number] [place] [address]- 1489 Mar, [facility] [place] [facility] [address] [id number], [place] [address]- 8866 Mar, [facility] [place] [facility] [address] [id number] [place] [address]- 7704 Feb, [facility] [place] [facility] [address] [id number] [place] [address] Feb, [facility] [address] [id number] [place] [address] Dec, [facility] [place] [facility] [address] [id number] [place] [address] Dec, [facility] [place] [facility] [address] [id number] [place] [address] Dec, [facility] [place] [facility] [address] [id number] [place] [address] Dec, [facility] [place] [facility] [address] [id number] [place] [address] Dec, [facility] [place] [facility] [address] [id number] [place] [address] Dec, [facility] [address] [id number] [place] [address] Dec, [facility] [place] [facility] [address] [id number] [place] [address] Nov, [facility] [place] [facility] [address] [id number] [place] [address] Nov, [facility] [place] [facility] [address] [id number] [place] [address] Nov, [facility] [place] [facility] [address] [id number] [place] [address] Nov, [facility] [place] [facility] [address] [id number] [place] [address] October, [facility] [place] [facility] [address] [id number] [place] [address] October, [facility] [place] [facility] [address] [id number] [place] [address] October, [facility] [place] [facility] [address] [id number] [place] [address] October, [facility] [place] [facility] [address] [id number] [place] [address] 03 Sep, 2012 [facility] [place] [facility] [address] [id number] [place] [address] 30 Aug, 2012 [facility] [place] [facility] [address] [id number] [place] [address] 29 Aug, 2012 [facility] [place] [facility] [address] [id number] [place] [address] Aug, [facility] [place] [facility] [address] [id number] [place] [address] Aug, [facility] [place] [facility] [address] [id number] [place] [address] Aug, [facility] [place] [facility] [address] [id number] [place] [address] 27 Jul, 2012 [facility] [place] [facility] [address] [id number] [place] [address] 27 Jul, 2012 [facility] [place] [facility] [address] [id number] [place] [address] 26 Jul, 2012 [facility] [place] [facility] [address] [id number] [place] [address] 25 Jul, 2012 [facility] [place] [facility] [address] [id number] [place] [address] Jul, [facility] [place] [facility] [address] [id number] [place] [address] 23 Jul, 2012 [facility] [place] [facility] [address] [id number] [place] [address] 20 Jul, 2012 [facility] [place] [facility] [address] [id number] [place] [address] 15 Jul, 2012 [facility] [place] [facility] [address] [id number] [place] [address] 14 Jul, 2012 [facility] [place] [facility] [address] [id number] [place] [address] Jul, [facility] [place] [facility] [address] [id number] [place] [address] Jun, [facility] [place] [facility] [address] [id number] [place] [address] Jun, [facility] [place] [facility] [address] [id number] [place] [address] Jun, [facility] [place] [facility] [address] [id number] [place] [address] May, [facility] [place] [facility] [address] [id number] [place] [address] May, [facility] [place] [facility] [address] [id number] [place] [address] Apr, [facility] [place] [facility] [address] [id number] [place] [address] Apr, [facility] [place] [facility] [address] [id number] [place] [address] Apr, [facility] [place] [facility] [address] [id number] [place] [address] Apr, [facility] [place] [facility] [address] [id number] [place] [address] Apr, [facility] [place] [facility] [address] [id number] [place] [address] Apr, [facility] [place] [facility] [address] [id number] [place] [address] Apr, [facility] [place] [facility] [address] [id number] [place] [address] Apr, [facility] [place] [facility] [address] [id number] [place] [address] Mar, [facility] [place] [facility] [address] [id number] [place] [address] Mar, [facility] [place] [facility] [address] [id number] [place] [address] Mar, [facility] [place] [facility] [address] [id number] [place] [address] Mar, [facility] [place] [facility] [address] [id number] [place] [address] Mar, [facility] [place] [facility] [address] [id number] [place] [address] Mar, [facility] [place] [facility] [address] [id number] [place] [address] Mar, [facility] [place] [facility] [address] [id number] [place] [address] Mar, [facility] [place] [facility] [address] [id number] [place] [address] Mar, [facility] [place] [facility] [address] [id number] [place] [address] Feb, [facility] [place] [facility] [address] [id number] [place] [address] Jan, [facility] [place] [facility] [address] [id number] [place] [address] Jan, [facility] [place] [facility] [address] [id number] [place] [address] Jan, [facility] [place] [facility] [address] [id number] [place] [address] Dec, [facility] [place] [facility] [address] [id number] [place] [address] Dec, [facility] [place] [facility] [address] [id number] [place] [address] Dec, [facility] [place] [facility] [address] [id number] [place] [address] Nov, [facility] [place] [facility] [address] [id number] [place] [address] October, [facility] [place] [facility] [address] [id number] [place] [address] October, [facility] [place] [facility] [address] [id number] [place] [address] October, [facility] [place] [facility] [address] [id number] [place] [address] October, [facility] [place] [facility] [address] [id number] [place] [address] October, [facility] [place] [facility] [address] [id number] [place] [address] Sep, [facility] [place] [facility] [address] [id number] [place] [address]198 Sep, [facility] [place] [facility] [address] [id number] [place] [address] Sep, [facility] [place] [facility] [address] [id number] [place] [address] Sep, [facility] [place] [facility] [address] [id number] [place] [address] 30[address] Sep, [facility] [place] [facility] [address] [id number] [place] [address] 9768 Sep, [facility] [place] [facility] [address] [id number] [place] [address] Sep, [facility] [place] [facility] [address] [id number] [place] [address] 47[address] Aug, [facility] [place] [facility] [address] [id number] [place] [address]295 Aug, [facility] [place] [facility] [address] [id number] [place] [address] 89[address] Aug, [facility] [place] [facility] [address] [id number] [place] [address] Aug, [facility] [place] [facility] [address] [id number] [place] [address] 7672 20 Aug, 2011 [facility] [address] [id number] [place] [address] 19 Aug, 2011 [facility] [place] [facility] [address] [id number] [place] [address] 2546 16 Aug, 2011 [facility] [address] [id number] [place] [address]186 15 Aug, 2011 [facility] [place] [facility] [address] [id number] [place] [address] 15 Aug, 2011 [facility] [address] [id number] [place] [address] 14 Aug, 2011 [facility] [address] [id number] [place] [address]36 12 Aug, 2011 [facility] [address] [id number] [place] [address] 08 Aug, 2011 [facility] [address] [id number] [place] [address] 8[address] 15 Jul, 2011 [facility] [address] [id number] [place] [address] 1766 15 Jul, 2011 [facility] [address] [id number] [place] [address] 4986 14 Jul, 2011 [facility] [place] [facility] [address] [id number] [place] [address] 06 Jul, 2011 [facility] [address] [id number] [place] [address]- 1306 02 Jul, 2011 [facility] [place] [facility] [address] [id number] [place] [address]- 1096 18 Jun, 2011 [facility] [place] [facility] [address] [id number] [place] [address]- [address]46 04 Jun, 2011 [facility] [place] [facility] [address] [id number] [place] [address] Jun, [facility] [place] [facility] [address] [id number] [place] [address] 4596 May, [facility] [place] [facility] [address] [id number] [place] [address] May, [facility] [place] [facility] [address] [id number] [place] [address] May, [facility] [place] [facility] [address] [id number] [place] [address] May, [facility] [place] [facility] [address] [id number] [place] [address] 9181 May, [facility] [place] [facility] [address] [id number] [place] [address]- 1476 16 Apr, 2011 [facility] [place] [facility] [address] [id number] [place] [address]- 6617 16 Apr, 2011 [facility] [place] [facility] [address] [id number], [place] [address] 15 Apr, 2011 [facility] [place] [facility] [address] [id number], [place] [address] 14 Apr, 2011 [facility] [place] [facility] [address] [id number], [place] [address] 25 Mar, 2011 [facility] [place] [facility] [address] [id number], [place] [address]646 24 Mar, 2011 [facility] [place] [facility] [address] [id number], [place] [address] 96[address] 19 Mar, 2011 [facility] [place] [facility] [address] [id number], [place] [address] 3465 19 Mar, 2011 [facility] [place] [facility] [address] [id number], [place] [address]- 9694 17 Mar, 2011 [facility] [place] [facility] [address] [id number], [place] [address] 8244 17 Mar, 2011 [facility] [place] [facility] [address] [id number], [place] [address]46 16 Feb, 2011 [facility] [id number], [place] [address] Nov, [facility] [id number], [place] [address] Aug, [facility] [id number], [place] [address] Apr, [facility] [id number], [place] [address] Mar, [facility] [id number], [place] [address] Apr, [facility] [id number], [place] [address] Apr, [facility] [id number], [place] [address] Sep, [facility] [address] [id number], [place] [address] Mar, IMMUNIZATIONS No Known Immunizations SOCIAL HISTORY Never Assessed REASON FOR VISIT Foot Pain- States she has something in her foot- Anni Gallardo RN PLAN OF CARE VITAL SIGNS Height 63 in 2016-12-05 Weight 231 lbs 2016-12-05 Temperature 98.0 degrees Fahrenheit 2016-12-05 Heart Rate 98 bpm 2016-12-05 Respiratory Rate 22 2016-12-05 BMI 40.92 kg/m2 2016-12-05 Blood pressure systolic 122 mmHg 2016-12-05 Blood pressure diastolic 72 mmHg 2016-12-05 MEDICATIONS Medication Instructions Dosage Frequency Start Date End Date Duration Status Cymbalta 60 MG Orally Once a day 1 capsule 24h Active Walker [employer] Wheels - with bench seat. DX: fibromyalgia, unsteady gait as directed Jan, Active Glucocard Expression Test - test blood sugar Aug, Active Lyrica 100 MG Orally 3 times a day 1 capsule by Oral route 3 times per day for fibromyalgia (729.1) 8h Mar, 30 days Active Proventil HFA 108 (90 Base) MCG/ACT Inhalation every 4 hrs 2 puffs as needed 4h Aug, Active Diclofenac Sodium 75 MG Orally Twice a day, voucher 1st fill 1 tablet with food or milk October, Mar, 30 day(s) Active Crestor 10 mg Orally Once a day 1 tablet 24h 16 Feb, 2014 90 days Active Sumatriptan Succinate 100 mg Orally Once a day,voucher 1 tablet as needed Aug, Active Wheelchair 1 as directed Nov, Active Albuterol Sulfate (2.5 MG/3ML) 0.083% Inhalation Three times a day 3 ml 8h Aug, Active Mirtazapine 15 MG Orally Once a day 1 tablet at bedtime 24h Active Propranolol HCl 40 mg Orally Twice a day 1 tablet 12h October, 90 days Active Glucocard Expression Monitor w/Device as directed Aug, Active Metformin HCl 1000 MG Orally Twice a day 1 tablet with meals 12h Nov, 30 day(s) Active Topamax 50 MG Orally Twice a day, voucher 1 tablet Aug, 30 day(s) Active Seroquel XR 150 MG Orally Once a day 1 tablet in the evening 24h Active Micardis 20 mg Orally Once a day 1 tablet by Oral route 1 time per day 24h Jun, 90 days Active RESULTS No Results PROCEDURES Procedure Date Ordered Result Body Site FOREIGN BODY REMOVAL-SIMPLE 2016-12-05 N/A REMOVE FOREIGN BODY December 05, 2016 INSTRUCTIONS MEDICATIONS ADMINISTERED No Known Medications MEDICAL [...]
--- OUTSIDE RECORDS SUMMARY | 2018-06-19 13:43 | XMS REPORT ---
Author Author ARISTEO ARAYA Organization [facility] Address [address] [place] [address] Care Team Providers Care Bank Vault Clerk Name Role Phone ARISTEO ARAYA Unavailable PROBLEMS Type Condition ICD9-CM Code [id number] Code Onset Dates Condition Status SNOMED Code Problem Migraine without aura and without status migrainosus, not intractable G43.009 Active 253349267 Problem Other chronic pain G89.29 Active 42174783 Problem Fibromyalgia M79.7 Active 034656679 Problem Other chronic gastritis without hemorrhage K29.50 Active 3127390 Problem Unsteady gait R26.81 Active 82381903 Problem Hypertension, benign I10 Active 58673836 Problem Bronchitis J40 Active 62164627 Problem Eosinophilic colitis K52.82 Active 75814013 Problem Non morbid obesity due to excess calories E66.09 Active 282315140 ALLERGIES No Information SOCIAL HISTORY Never Assessed [...]
--- OUTSIDE RECORDS SUMMARY | 2018-06-19 13:44 | XMS REPORT ---
Author Author ARISTEO ARAYA Organization [facility] Address [address] [place] [address] Care Team Providers Care Finisher Polisher Name Role Phone ARISTEO ARAYA Unavailable PROBLEMS Type Condition ICD9-CM Code AQE51-BX Code Onset Dates Condition Status SNOMED Code Problem Non morbid obesity due to excess calories E66.09 Active 505503916 Problem Unsteady gait R26.81 Active 23072906 Problem Eosinophilic colitis K52.82 Active 21395752 Problem Acute right-sided low back pain with right-sided sciatica M54.41 Active 109249834 Problem Paresthesias in left hand R20.2 Active 050508618 Problem Non morbid obesity E66.9 Active 369461542 Problem Other chronic gastritis without hemorrhage K29.50 Active 5283698 Problem GERD with esophagitis K21.0 Active 474876715 Problem Sacral pain M53.3 Active 66558780 Problem Fibromyalgia M79.7 Active 868750376 Problem Other chronic pain G89.29 Active 72790245 Problem Bronchitis J40 Active 41850163 Problem Migraine without aura and without status migrainosus, not intractable G43.009 Active 453804976 Problem Hypertension, benign I10 Active 76764039 ALLERGIES No Information ENCOUNTERS Encounter Location Date Diagnosis [place] [id number] [place] [address] 27296- 9329 Sep, Hypertension, benign I10 and Acute right-sided low back pain with right-sided sciatica M54.41 [facility] [id number] [place] [address] 39216- 8433 Sep, Fibromyalgia M79.7 and Hypertension, benign I10 [facility] [id number] [place] [address] 21057- 3467 Aug, [place] [address] 25845- 7452 Aug, Fibromyalgia M79.7 ; Frequent headaches R51 and Non morbid obesity due to excess calories E66.09 [place] [address] 10970- 7776 Jul, [place] [address] 70793- 5518 Jul, Fibromyalgia M79.7 [place] [address] 20958- 7588 Jul, Viral gastroenteritis A08.4 and Paresthesias in left hand R20.[address] 51308- 1024 Jun, Non morbid obesity due to excess calories E66.09 [place] [address] 28408- 1625 Jun, [place] [address] 02254- 5445 Jun, Fibromyalgia M79.7 [place] [address] 91586- 2087 May, Non morbid obesity due to excess calories E66.09 and Hypertension, benign I10 [place] [address] 57531- 7792 May, GERD with esophagitis K21.0 [place] [address] 54056- 8680 Apr, BMI 40.0-44.9, adult Z68.41 and Non morbid obesity E66.9 [place] [address] 80799- 6560 Mar, Unsteady gait R26.81 [place] [address] 69802- 6686 Mar, Unsteady gait R26.81 ; Sacral pain M53.3 and Fibromyalgia M79.7 [place] [id number] [place] [address] 76059- 7888 05 Mar, 2017 Non morbid obesity due to excess calories E66.09 [place] [id number] [place] [address] 11951- 5436 28 Feb, 2017 Abdominal pain, generalized R10.84 [place] [id number] [place] [address] 01636- 0246 18 Feb, 2017 Other chronic gastritis without hemorrhage K29.50 and H. pylori infection A04.8 [place] [id number] [place] [address] 14189- 9032 07 Feb, 2017 Back pain 724.5 ; Pain in left shoulder M25.512 ; Fibromyalgia M79.7 and Non morbid obesity due to excess calories E66.09 [place] [id number] [place] [address] 16177- 8318 07 Feb, 2017 BMI 40.0-44.9, adult Z68.41 [place] [id number] [place] [address] 44514- 2866 Jan, Dysuria R30.0 and Acute cystitis with hematuria N30.01 [place] [id number] [place] [address] 64330- 3417 10 Jan, 2017 Dysuria R30.0 [place] [id number] [place] [address] 16314- 9755 Dec, Fibromyalgia M79.7 [place] [id number] [place] [address] 72628- 0712 Dec, Screening for diabetes mellitus Z13.1 and Fibromyalgia M79.7 [place] [id number] [place] [address] 60582- 9956 Dec, Fibromyalgia M79.7 [place] [id number] [place] [address] 04109- 9022 Dec, [place] [address] 98480- 7198 Dec, Fibromyalgia M79.7 [place] [id number] [place] [address] 66821- 1523 Nov, Foreign body in foot, left, initial encounter S90.852A [place] [id number] [place] [address] 98674- 3371 Nov, Viral gastroenteritis A08.4 [place] [address] 75142- 7257 Nov, Fall, initial encounter W19.XXXA ; Post-traumatic headache, unspecified, not intractable G44.309 ; Dizziness R42 ; Unsteady gait R26.81 ; Sacral pain M53.3 and Non morbid obesity due to excess calories E66.09 [place] [address] 74233- 3729 Nov, [place] [address] 97409- 3334 Nov, [place] [address] 09006- 1712 October, Non morbid obesity due to excess calories E66.09 and Hypertension, benign I10 [place] [id number] [place] [address] 17830- 9923 October, Fibromyalgia M79.7 [place] [address] 59997- 6625 Sep, [place] [address] 39793- 6742 Sep, [place] [address] 43723- 1953 Sep, Eosinophilic colitis K52.82 [place] [id number] [place] [address] 71921- 4790 Aug, Bronchitis J40 [place] [address] 75643- 9312 Aug, [facility] [address] [place] [address] 37945- 3397 Aug, Pain in left shoulder M25.512 ; Bronchitis J40 ; Acute midline back pain, unspecified location M54.9 ; Migraine without aura and without status migrainosus, not intractable G43.009 ; Fibromyalgia M79.7 and Pain of upper abdomen R10.10 [place] [address] 74625- 8406 Aug, [place] [id number] [place] [address] 44280- 5526 Aug, [place] [id number] [place] [address] 32858- 8941 Jul, Other viral agents as the cause of diseases classified elsewhere B97.89 and Acute upper respiratory infection, unspecified J06.9 [place] [id number] [place] [address] 25197- 1161 Jun, [facility] [id number] [place] [address] 19740 -1530 Jun, [facility] [id number] [place] [address] 53000- 4143 May, Abscess L02.91 [facility] [id number] [place] [address] 11208- 9497 May, Acute midline low back pain without sciatica M54.5 [facility] [id number] [place] [address] 41065 -0302 May, [place] [id number] [place] [address] 10552- 9751 Apr, [facility] [id number] [place] [address] 34278- 2010 Apr, Other chronic pain G89.29 ; Pain in right shoulder M25.511 and Pain in left shoulder M25.512 [place] [address] [place] [address]- 5964 16 Apr, 2016 [facility] [address] [place] [address] 63864- 3113 10 Apr, 2016 [facility] [id number] [place] [address] 51835- 0682 10 Apr, 2016 Fibromyalgia M79.7 ; Other chronic pain G89.29 and Pain in left shoulder M25.512 [facility] [address] [place] [address] 43962- 7878 04 Apr, 2016 Bronchitis J40 [facility] [address] [place] [address] 81753- 4630 27 Mar, 2016 [facility] [id number] [id number] Mar, [facility] [address] [place] [address] 59772- 1276 29 Feb, 2016 [facility] [place] [facility] [id number] [place] [address] 75986- 5877 26 Feb, 2015 [facility] [address] [place] [address] 00840- 9783 23 Feb, 2015 [facility] [address] [place] [address] 41066- 7006 22 Feb, 2015 [facility] [address] [address]- 4714 20 Feb, 2015 [facility] [place] [facility] [address] [place] [address] 16857- 3941 19 Feb, 2015 [facility] [place] [facility] [address] [address]- 1119 19 Feb, 2016 Dysuria R30.0 [facility] [address] [place] [address] 35046- 4558 19 Feb, 2016 Dysuria R30.0 [facility] [address] [address]- 2649 16 Feb, 2016 [facility] [place] [facility] [id number] [place] [address] 02422- 1919 15 Feb, 2016 Migraine, unspecified, not intractable, without status migrainosus G43.909 and Fibromyalgia M79.7 [facility] [id number] [place] [address] 99835- 3025 Feb, Migraine without aura and without status migrainosus, not intractable G43.009 [facility] [id number] [place] [address] 66244- 5078 Jan, [facility] [address] 44461- 4481 Jan, [place] [id number] [place] [address] 10832- 4010 Jan, [facility] [address] 28189- 9534 Jan, [facility] [id number] [place] [address] 13903- 9817 Jan, Unsteady gait R26.81 ; Fibromyalgia M79.7 and Family history of rheumatoid arthritis Z82.61 [place] [id number] [place] [address] 46012- 6362 Dec, [facility] [id number] [place] [address] 99206- 0092 Dec, [facility] [id number] [place] [address] 08950- 2530 Nov, Pain in left shoulder M25.512 [facility] [id number] [place] [address] 20204- 4660 October, Viral gastroenteritis A08.4 [facility] [id number] [place] [address] 90969 -8805 October, Pain of upper abdomen R10.10 [facility] [id number] [place] [address] 88632- 8251 October, Acute midline back pain, unspecified location M54.9 [facility] [address] [address]- 7510 Aug, Elbow pain, right M25.521 [facility] [id number] [place] [address] 90522- 7051 Aug, Elbow pain, right M25.521 [facility] [id number] [place] [address] 11533- 1117 Aug, Pain of right upper extremity M79.601 [facility] [id number] [place] [address] 89245- 1203 Jun, Lumbar neuritis M54.16 [facility] [id number] [place] [address] 36250- 9016 May, [facility] [id number] [place] [address] 56492- 0034 Apr, Non morbid obesity due to excess calories E66.09 [facility] [id number] [place] [address] 52959- 8288 Apr, Non morbid obesity due to excess calories E66.09 and Thoracic neuritis M54.14 [facility] [address] [place] [address] 01273- 1640 Apr, Elbow pain, right M25.521 [facility] [address] [place] [address] 02594- 9328 Mar, Right elbow pain M25.521 [facility] [id number] [place] [address] 29284- 2342 Mar, [facility] [id number] [place] [address] 37883- 0746 30 Feb, 2015 Urinary tract infection, site not specified 599.0 [facility] [address] [place] [address] 98914- 3478 14 Feb, 2015 [facility] [id number] [place] [address] 69838- 6184 Jan, Spider bite 989.5 [facility] [address] 88530- 8339 Jan, Spider bite 989.5 [facility] [address] 33423- 3252 Jan, Spider bite 989.5 [facility] [address] 74075- 1218 Nov, Back pain 724.5 and Diabetes 250.00 [facility] [address] 11936- 4177 Nov, Back pain 724.5 and Muscle spasm of back 724.8 [facility] [address] 09023- 7098 Nov, Alternating constipation and diarrhea 787.99 [facility] [address] 10105- 3482 October, Back pain 724.5 and Hip pain 719.45 [facility] [address] 14554- 0005 Sep, [facility] [address] 25266- 0067 Sep, [facility] [address] 52997- 7634 Aug, [facility] [address] 15277- 2066 Aug, [facility] [address] 15974- 5158 Aug, [facility] [id number] [place] [address] 89766- 2283 Aug, [facility] [address] 03783- 1403 Aug, [facility] [address] [id number] [place] [address]- 2443 Aug, [facility] [place] [facility] [address] [id number] [place] [address]- 5996 Jul, [facility] [place] [facility] [address] [id number] [place] [address]- 0382 Jul, [facility] [place] [facility] [address] [id number] [place] [address]- 2005 Jun, [facility] [place] [facility] [address] [id number] [place] [address]- 6630 Jun, [facility] [place] [facility] [address] [id number] [place] [address]- 3238 Jun, [facility] [place] [facility] [address] [id number] [place] [address]- 3458 Jun, [facility] [place] [facility] [address] [id number] [place] [address]- 9987 Jun, [facility] [place] [facility] [address] [id number] [place] [address]- 1315 Jun, [facility] [place] [facility] [address] [id number] [place] [address]- 7468 Jun, [facility] [place] [facility] [address] [id number] [place] [address]- 5479 May, [facility] [place] [facility] [address] [id number] [address]- 9315 May, [facility] [place] [facility] [address] [id number] [place] [address]- 0710 May, [facility] [place] [facility] [address] [id number] [place] [address]- 6476 May, [facility] [place] [facility] [address] [id number] [place] [address]- 8436 Apr, [facility] [place] [facility] [address] [id number] [place] [address]- 3596 Apr, [facility] [place] [facility] [address] [id number] [place] [address]- 6373 Mar, [facility] [place] [facility] [address] [id number] [place] [address]- 0899 Mar, [facility] [place] [facility] [address] [id number] [place] [address]- 8759 Mar, [facility] [place] [facility] [address] [id number] [place] [address]- 4519 Mar, [facility] [place] [facility] [address] [id number] [place] [address]- 5157 Mar, [facility] [place] [facility] [address] [id number] [place] [address]- 6066 Mar, [facility] [place] [facility] [address] [id number] [place] [address]- 8920 Mar, [facility] [place] [facility] [address] [id number] [place] [address]- 7437 Mar, [facility] [place] [facility] [address] [id number] [place] [address]- 6040 Mar, [facility] [place] [facility] [address] [id number] [place] [address]- 8848 Mar, [facility] [place] [facility] [address] [id number] [place] [address]- 0236 16 Feb, 2014 [facility] [place] [facility] [address] [id number] [place] [address]- 7367 Feb, [facility] [place] [facility] [address] [id number] [place] [address]- 1597 Jan, [facility] [place] [facility] [address] [id number] [place] [address]- 6864 Jan, [facility] [place] [facility] [address] [id number] [place] [address]- 9934 Jan, [facility] [place] [facility] [address] [id number] [place] [address]- 6182 Jan, [facility] [place] [facility] [address] [id number] [place] [address]- 7377 Jan, [facility] [place] [facility] [address] [id number] [place] [address]- 6073 Jan, [facility] [place] [facility] [address] [id number] [place] [address]- 4303 Jan, [facility] [place] [facility] [address] [id number] [place] [address]- 8301 Jan, [facility] [place] [facility] [address] [id number] [place] [address]- 1450 Jan, [facility] [place] [facility] [address] [id number] [place] [address]- 3774 Jan, [facility] [place] [facility] [address] [id number] [place] [address]- 8566 Dec, [facility] [place] [facility] [address] [id number] [place] [address]- 7345 Dec, [facility] [place] [facility] [address] [id number] [place] [address]- 0404 Dec, [facility] [place] [facility] [address] [id number] [place] [address]- 5640 Dec, [facility] [place] [facility] [address] [id number] [place] [address]- 3403 Nov, [facility] [place] [facility] [address] [id number] [place] [address]- 8401 Nov, [facility] [place] [facility] [address] [id number] [place] [address]- 6339 Nov, [facility] [place] [facility] [address] [id number] [place] [address]- 5255 Nov, [facility] [place] [facility] [address] [id number] [place] [address]- 4323 October, [facility] [place] [facility] [address] [id number] [place] [address]- 1260 October, [facility] [place] [facility] [address] [id number] [place] [address]- 1894 Sep, [facility] [place] [facility] [address] [id number] [place] [address]- 0812 Sep, [facility] [place] [facility] [address] [id number] [place] [address]- 4433 Sep, [facility] [place] [facility] [address] [id number] [place] [address]- 5575 Sep, [facility] [place] [facility] [address] [id number] [place] [address]- 4433 Sep, [facility] [place] [facility] [address] [id number] [place] [address]- 4468 Sep, [facility] [place] [facility] [address] [id number] [place] [address]- 1870 Sep, [facility] [place] [facility] [address] [id number] [place] [address]- 5362 Sep, [facility] [place] [facility] [address] [id number] [place] [address]- 1352 Sep, [facility] [place] [facility] [address] [id number] [place] [address]- 2335 Sep, [facility] [place] [facility] [address] [id number] [place] [address]- 9807 Jul, [facility] [place] [facility] [address] [id number] [place] [address]- 6334 Jul, [facility] [place] [facility] [address] [id number] [place] [address]- 0944 Jul, [facility] [place] [facility] [address] [id number] [place] [address]- 5592 Jul, [facility] [place] [facility] [address] [id number] [place] [address]- 5821 Jun, [facility] [address] [id number] [place] [address]- 5386 Jun, [facility] [place] [facility] [address] [id number] [place] [address]- 1844 Jun, [facility] [place] [facility] [address] [id number] [place] [address]- 8100 Jun, [facility] [place] [facility] [address] [id number] [place] [address]- 9074 Jun, [facility] [place] [facility] [address] [id number] [place] [address]- 3866 Jun, [facility] [place] [facility] [address] [id number] [place] [address]- 0869 Apr, [facility] [place] [facility] [address] [id number] [place] [address]- 9871 Apr, [facility] [place] [facility] [address] [id number] [place] [address]- 6370 Apr, [facility] [place] [facility] [address] [id number] [place] [address]- 3239 Apr, [facility] [place] [facility] [address] [id number] [place] [address] Apr, [facility] [place] [facility] [address] [id number] [place] [address] Apr, [facility] [place] [facility] [address] [id number] [place] [address] Apr, [facility] [place] [facility] [address] [id number] [place] [address] Apr, [facility] [place] [facility] [address] [id number] [place] [address] Mar, [facility] [place] [facility] [address] [id number] [place] [address] Mar, [facility] [address] [id number] [place] [address] Feb, [facility] [place] [facility] [address] [id number] [place] [address] Feb, [facility] [place] [facility] [address] [id number] [place] [address] Dec, [facility] [place] [facility] [address] [id number] [place] [address] Dec, [facility] [address] [id number] [place] [address] Dec, [facility] [place] [facility] [address] [id number] [place] [address] Dec, [facility] [place] [facility] [address] [id number] [place] [address] Dec, [facility] [place] [facility] [address] [id number] [place] [address] Dec, [facility] [place] [facility] [address] [id number] [place] [address] Dec, [facility] [place] [facility] [address] [id number] [place] [address] Nov, [facility] [place] [facility] [address] [id number] [place] [address] Nov, [facility] [place] [facility] [address] [id number] [address] Nov, [facility] [place] [facility] [address] [id number] [place] [address]- [address] Nov, [facility] [place] [facility] [address] [id number] [place] [address] October, [facility] [place] [facility] [address] [id number] [place] [address] October, [facility] [place] [facility] [address] [id number] [place] [address]- [address] October, [facility] [address] [id number] [place] [address] October, [facility] [place] [facility] [address] [facility] [id number] [place] [address]- [address] Sep, [facility] [address] [facility] [id number] [place] [address] Aug, [facility] [place] [facility] [address] [id number] [place] [address]- [address] Aug, [facility] [address] [id number] [place] [address] Aug, [facility] [place] [facility] [address] [facility] [id number] [place] [address] Aug, [facility] [address] [facility] [id number] [place] [address] Aug, [facility] [address] [facility] [id number] [place] [address] Jul, [facility] [place] [facility] [address] [id number] [place] [address] 27 Jul, 2012 [facility] [address] [facility] [id number] [place] [address] 26 Jul, 2012 [facility] [place] [facility] [id number] [place] [address] Jul, [facility] [place] [facility] [address] [facility] [id number] [place] [address] 139[address] 25 Jul, 2012 [facility] [place] [facility] [address] [facility] [id number] [place] [address]- [address] 23 Jul, 2012 [facility] [place] [facility] [address] [facility] [id number] [place] [address] 20 Jul, 2012 [facility] [place] [facility] [id number] [place] [address] 15 Jul, 2012 [facility] [place] [facility] [address] [id number] [place] [address]- [address] 14 Jul, 2012 [facility] [place] [facility] [address] [id number] [place] [address] Jul, [facility] [place] [facility] [address] [id number] [place] [address] Jun, [facility] [place] [facility] [address] [id number] [place] [address] Jun, [facility] [place] [facility] [address] [id number] [place] [address] Jun, [facility] [place] [facility] [address] [id number] [place] [address] May, [facility] [place] [facility] [address] [id number] [place] [address] May, [facility] [place] [facility] [address] [id number] [place] [address] Apr, [facility] [place] [facility] [address] [id number] [place] [address] Apr, [facility] [place] [facility] [address] [id number] [place] [address] Apr, [facility] [place] [facility] [address] [id number] [address] Apr, [facility] [place] [facility] [address] [id number] [address] Apr, [facility] [place] [facility] [address] [id number] [place] [address] Apr, [facility] [place] [facility] [address] [id number] [place] [address] Apr, [facility] [place] [facility] [address] [id number] [place] [address] Apr, [facility] [place] [facility] [address] [id number] [place] [address] Mar, [facility] [place] [facility] [address] [id number] [place] [address] Mar, 2011 [facility] [place] [facility] [address] [id number] [place] [address] Mar, [facility] [place] [facility] [address] [id number] [place] [address] Mar, 2011 [facility] [place] [facility] [address] [id number] [place] [address] Mar, [facility] [place] [facility] [address] [id number] [place] [address]- [address]99 Mar, [facility] [place] [facility] [address] [id number] [place] [address] Mar, [facility] [place] [facility] [address] [id number] [place] [address] Mar, [facility] [place] [facility] [address] [id number] [place] [address] Mar, [facility] [place] [facility] [address] [id number] [place] [address] Feb, [facility] [place] [facility] [address] [id number] [place] [address] Jan, [facility] [place] [facility] [address] [id number] [place] [address]007 Jan, [facility] [place] [facility] [address] [id number] [place] [address] Jan, [facility] [place] [facility] [address] [id number] [place] [address] Dec, [facility] [place] [facility] [address] [id number] [place] [address] Dec, [facility] [place] [facility] [address] [id number] [place] [address] Dec, [facility] [place] [facility] [address] [id number] [place] [address] Nov, [facility] [address] [id number] [place] [address] October, [facility] [address] [id number] [place] [address] October, [facility] [address] [id number] [place] [address] October, [facility] [address] [id number] [place] [address] October, [facility] [address] [id number] [place] [address] October, [facility] [address] [id number] [place] [address] Sep, [facility] [address] [id number] [place] [address] Sep, [facility] [address] [id number] [place] [address] Sep, [facility] [address] [id number] [place] [address] Sep, [facility] [address] [id number] [place] [address]- [address] Sep, [facility] [place] [facility] [address] [id number] [place] [address] 110[address] Sep, [facility] [place] [facility] [address] [id number] [place] [address] 235[address] Sep, [facility] [place] [facility] [address] [id number] [place] [address] Aug, [facility] [place] [facility] [address] [id number] [place] [address] Aug, [facility] [place] [facility] [address] [id number] [place] [address]- [address] 21 Aug, 2011 [facility] [address] [id number] [place] [address]- [address] 21 Aug, 2011 [facility] [place] [facility] [address] [id number] [place] [address]- [address] 20 Aug, 2011 [facility] [place] [facility] [address] [id number] [place] [address]- [address] 19 Aug, 2011 [facility] [place] [facility] [address] [id number] [place] [address]- 6006 16 Aug, 2011 [facility] [place] [facility] [address] [id number] [place] [address] 15 Aug, 2011 [facility] [place] [facility] [address] [id number] [place] [address]- 0499 15 Aug, 2011 [facility] [address] [id number] [place] [address] 14 Aug, 2011 [facility] [place] [facility] [address] [id number] [place] [address]- 0767 12 Aug, 2011 [facility] [place] [facility] [address] [id number] [place] [address]- 6[address] 08 Aug, 2011 [facility] [place] [facility] [address] [id number] [place] [address]- 3232 15 Jul, 2011 [facility] [place] [facility] [address] [id number] [place] [address]- [address]112 15 Jul, 2011 [facility] [place] [facility] [address] [id number] [place] [address]- 7314 14 Jul, 2011 [facility] [place] [facility] [address] [id number] [place] [address]- [address] 06 Jul, 2011 [facility] [place] [facility] [address] [id number] [place] [address]- 2057 02 Jul, 2011 [facility] [place] [facility] [address] [id number] [place] [address]- 1603 18 Jun, 2011 [facility] [place] [facility] [address] [id number] [place] [address]- 480[address] Jun, [facility] [place] [facility] [address] [id number] [place] [address] Jun, [facility] [place] [facility] [address] [id number] [place] [address]- 378[address] May, [facility] [place] [facility] [address] [id number] [place] [address]- 4040 May, [facility] [place] [facility] [address] [id number] [place] [address]- 7370 May, [facility] [place] [facility] [address] [id number] [place] [address]- 0768 May, [facility] [place] [facility] [address] [id number] [place] [address]- 9[address] 14 May, 2011 [facility] [place] [facility] [address] [id number] [place] [address]- 1564 16 Apr, 2011 [facility] [place] [facility] [address] [id number] [place] [address]- 7623 16 Apr, 2011 [facility] [place] [facility] [address] [id number] [place] [address]- 2898 15 Apr, 2011 [facility] [place] [facility] [address] [id number] [place] [address]- 1092 14 Apr, 2011 [facility] [place] [facility] [address] [id number] [place] [address]- 9020 25 Mar, 2011 [facility] [place] [facility] [address] [id number] [place] [address]- 8767 24 Mar, 2011 [facility] [place] [facility] [address] [id number] [place] [address]- 4439 Mar, [facility] [place] [facility] [address] [id number] [place] [address] 19 Mar, 2011 [facility] [place] [facility] [address] [id number] [place] [address]- [address]12 Mar, [facility] [address] [id number] [address] 17 Mar, 2011 [facility] [address] [id number] [address]- [address]166 Feb, [facility] [address] [id number] [address]- [address] Nov, [facility] [id number] [address] Aug, [facility] [address] [id number] [address]- 6026 Apr, [facility] [id number] [address]- [address]009 Mar, [facility] [id number] [address]- 7385 Apr, [facility] [id number] [address]- 4800 Apr, [facility] [address] [id number] [address]- 245[address] Sep, [facility] [address] [id number] [address]- [address] Mar, IMMUNIZATIONS No Known Immunizations SOCIAL HISTORY Never Assessed REASON FOR VISIT Weight check - KELLEY Bowden PLAN OF CARE VITAL SIGNS Height 63 in 2017-03-12 Weight 236 lbs 2017-03-12 BMI 41.80 kg/m2 2017-03-12 MEDICATIONS No Known Medications RESULTS No Results PROCEDURES Procedure Date Ordered Result Body Site No Charge Mar 12, 2017 INSTRUCTIONS MEDICATIONS ADMINISTERED No Known Medications [...]
[2018-06-19] MEDS ORDERED: NS IV 1000 ML 1,000 ML IV SCH (13:45)
--- OUTSIDE RECORDS SUMMARY | 2018-06-19 13:51 | XMS REPORT | Continuity of Care Document ---
Author Author [facility] Address Unknown Phone Unavailable Allergies Active Description Code Type Severity Reaction Onset Reported/Identified Relationship to Patient Clinical Status Yes metals OA N/A N/A 09/13/2008 Yes Singulair Drug Allergy N/A N/A 09/13/2008 Yes metals OA 09/13/2008 Yes Singulair Drug Allergy 09/13/2008 Yes lisinopril 5 mg Tablet Drug Allergy N/A N/A 08/29/2011 Yes lisinopril 5 mg Tablet Drug Allergy 08/29/2011 Yes METALS METALS Unknown N/A 07/12/2014 Yes lisinopril [id number] Drug Allergy Mild COUGH 03/05/2017 Yes montelukast [id number] Drug Allergy Unknown N/A 03/05/2017 Yes montelukast sodium [id number] Drug Allergy Unknown N/A 03/05/2017 Medications There is no data. Problems Date Dx Coded Attending Type Code Diagnosis Diagnosed By 03/24/2008 STANFORD CAAL DO 729.5 PAIN IN LIMB 03/24/2008 729.5 PAIN IN LIMB 03/24/2008 729.5 PAIN IN LIMB 03/24/2008 STANFORD CAAL DO 729.5 PAIN IN LIMB 03/24/2008 729.5 PAIN IN LIMB 03/24/2008 STANFORD CAAL DO 729.5 PAIN IN LIMB 03/24/2008 STANFORD CAAL DO 729.5 PAIN IN LIMB 03/24/2008 729.5 PAIN IN LIMB 03/24/2008 729.5 PAIN IN LIMB 03/24/2008 STANFORD CAAL DO 729.5 PAIN IN LIMB 03/24/2008 729.5 PAIN IN LIMB 03/24/2008 729.5 PAIN IN LIMB 03/24/2008 729.5 PAIN IN LIMB 03/24/2008 STANFORD CAAL DO 729.5 PAIN IN LIMB 03/24/2008 CAAL DO, STANFORD K 729.5 PAIN IN LIMB 03/24/2008 CAAL DO, STANFORD K 729.5 PAIN IN LIMB 03/24/2008 CAAL DO, STANFORD K 729.5 PAIN IN LIMB 03/24/2008 CAAL DO, STANFORD K 729.5 PAIN IN LIMB 03/24/2008 CAAL DO, STANFORD K 729.5 PAIN IN LIMB 03/24/2008 CAAL DO, STANFORD K 729.5 PAIN IN LIMB 03/24/2008 JENN GARVEY APRNINA R 729.5 PAIN IN LIMB 03/24/2008 CAAL DO, STANFORD K 729.5 PAIN IN LIMB 03/24/2008 CAAL DO, STANFORD K 729.5 PAIN IN LIMB 03/24/2008 CAAL DO, STANFORD K 729.5 PAIN IN LIMB 03/24/2008 JENN GARVEY APRNINA R 729.5 PAIN IN LIMB 03/24/2008 CAAL DO, STANFORD K 729.5 PAIN IN LIMB 03/24/2008 RUBINA HARLEY APRN 729.5 PAIN IN LIMB 03/24/2008 LEO BENITEZ MD 729.5 PAIN IN LIMB 03/24/2008 RUBINA HARLEY APRN 729.5 PAIN IN LIMB 03/24/2008 ARISTEO ARAYA APRN 729.5 PAIN IN LIMB 03/24/2008 LOUIS GARVEY APRN R 729.5 PAIN IN LIMB 09/13/2008 CAAL DO STANFORD K 465.9 UPPER RESPIRATORY INFECTION 09/13/2008 465.9 UPPER RESPIRATORY INFECTION 09/13/2008 465.9 UPPER RESPIRATORY INFECTION 09/13/2008 CAAL DO STANFORD K 465.9 UPPER RESPIRATORY INFECTION 09/13/2008 465.9 UPPER RESPIRATORY INFECTION 09/13/2008 CAAL DO, STANFORD K 465.9 UPPER RESPIRATORY INFECTION 09/13/2008 CAAL DO, STANFORD K 465.9 UPPER RESPIRATORY INFECTION 09/13/2008 465.9 UPPER RESPIRATORY INFECTION 09/13/2008 465.9 UPPER RESPIRATORY INFECTION 09/13/2008 CAAL DO STANFORD K 465.9 UPPER RESPIRATORY INFECTION 09/13/2008 465.9 UPPER RESPIRATORY INFECTION 09/13/2008 465.9 UPPER RESPIRATORY INFECTION 09/13/2008 465.9 UPPER RESPIRATORY INFECTION 09/13/2008 CAAL DO STANFORD K 465.9 UPPER RESPIRATORY INFECTION 09/13/2008 CAAL DO, STANFORD K 465.9 UPPER RESPIRATORY INFECTION 09/13/2008 CAAL DO, STANFORD K 465.9 UPPER RESPIRATORY INFECTION 09/13/2008 CAAL DO, STANFORD K 465.9 UPPER RESPIRATORY INFECTION 09/13/2008 CAAL DO, STANFORD K 465.9 UPPER RESPIRATORY INFECTION 09/13/2008 CAAL DO, STANFORD K 465.9 UPPER RESPIRATORY INFECTION 09/13/2008 CAAL DO, STANFORD K 465.9 UPPER RESPIRATORY INFECTION 09/13/2008 GURU TIN FLOPPER, LOUIS R 465.9 UPPER RESPIRATORY INFECTION 09/13/2008 CAAL DO, STANFORD K 465.9 UPPER RESPIRATORY INFECTION 09/13/2008 CAAL DO, STANFORD K 465.9 UPPER RESPIRATORY INFECTION 09/13/2008 CAAL DO, STANFORD K 465.9 UPPER RESPIRATORY INFECTION 09/13/2008 GURU TIN FLOPPER, LOUIS R 465.9 UPPER RESPIRATORY INFECTION 09/13/2008 CAAL DO, STANFORD K 465.9 UPPER RESPIRATORY INFECTION 09/13/2008 RUBINA HARLEY APRN 465.9 UPPER RESPIRATORY INFECTION 09/13/2008 LEO BENITEZ MD 465.9 UPPER RESPIRATORY INFECTION 09/13/2008 RUBINA HARLEY APRN 465.9 UPPER RESPIRATORY INFECTION 09/13/2008 ARISTEO ARAYA APRN 465.9 UPPER RESPIRATORY INFECTION 09/13/2008 GURU QUEZADA, LOUIS R 465.9 UPPER RESPIRATORY INFECTION 09/20/2008 CAAL STANFORD GARCIA K 493.92 ASTHMA (ACUTE) EXACERBATION 09/20/2008 493.92 ASTHMA (ACUTE ) EXACERBATION 09/20/2008 493.92 ASTHMA (ACUTE ) EXACERBATION 09/20/2008 STANFORD CAAL DO K 493.92 ASTHMA (ACUTE) EXACERBATION 09/20/2008 493.92 ASTHMA (ACUTE ) EXACERBATION 09/20/2008 CAAL CLEMENTINE GARCIAA K 493.92 ASTHMA (ACUTE) EXACERBATION 09/20/2008 CAAL DOCLEMENTINEA K 493.92 ASTHMA (ACUTE) EXACERBATION 09/20/2008 493.92 ASTHMA (ACUTE ) EXACERBATION 09/20/2008 493.92 ASTHMA (ACUTE ) EXACERBATION 09/20/2008 CAAL STANFORD GARCIA K 493.92 ASTHMA (ACUTE) EXACERBATION 09/20/2008 493.92 ASTHMA (ACUTE ) EXACERBATION 09/20/2008 493.92 ASTHMA (ACUTE ) EXACERBATION 09/20/2008 493.92 ASTHMA (ACUTE ) EXACERBATION 09/20/2008 CAAL DO, STANFORD K 493.92 ASTHMA (ACUTE) EXACERBATION 09/20/2008 CAAL DO, STANFORD K 493.92 ASTHMA (ACUTE) EXACERBATION 09/20/2008 CAAL DO, STANFORD K 493.92 ASTHMA (ACUTE) EXACERBATION 09/20/2008 CAAL DO, STANFORD K 493.92 ASTHMA (ACUTE) EXACERBATION 09/20/2008 CAAL DO, STANFORD K 493.92 ASTHMA (ACUTE) EXACERBATION 09/20/2008 CAAL DO STANFORD K 493.92 ASTHMA (ACUTE) EXACERBATION 09/20/2008 CAAL DO, STANFORD K 493.92 ASTHMA (ACUTE) EXACERBATION 09/20/2008 GURU QUEZADA, LOUIS R 493.92 ASTHMA (ACUTE) EXACERBATION 09/20/2008 CAAL DO, STANFORD K 493.92 ASTHMA (ACUTE) EXACERBATION 09/20/2008 CAAL DO, STANFORD K 493.92 ASTHMA (ACUTE) EXACERBATION 09/20/2008 CAAL DO, STANFORD K 493.92 ASTHMA (ACUTE) EXACERBATION 09/20/2008 GURU QUEZADA L[place] R 493.92 ASTHMA (ACUTE) EXACERBATION 09/20/2008 CAAL DO STANFORD K 493.92 ASTHMA (ACUTE) EXACERBATION 09/20/2008 RUBINA HARLEY APRN 493.92 ASTHMA (ACUTE) EXACERBATION 09/20/2008 LEO BENITEZ MD 493.92 ASTHMA (ACUTE) EXACERBATION 09/20/2008 RUBINA HARLEY APRN 493.92 ASTHMA (ACUTE) EXACERBATION 09/20/2008 ARISTEO ARAYA APRN 493.92 ASTHMA (ACUTE) EXACERBATION 09/20/2008 GURU QUEZADA L[place] R 493.92 ASTHMA (ACUTE) EXACERBATION 04/28/2009 STANFORD CAAL DO 787.01 NAUSEA WITH VOMITING 04/28/2009 787.01 NAUSEA WITH VOMITING 04/28/2009 787.01 NAUSEA WITH VOMITING 04/28/2009 STANFORD CAAL DO K 787.01 NAUSEA WITH VOMITING 04/28/2009 787.01 NAUSEA WITH VOMITING 04/28/2009 STANFORD CAAL DO K 787.01 NAUSEA WITH VOMITING 04/28/2009 CAAL STANFORD GARCIA K 787.01 NAUSEA WITH VOMITING 04/28/2009 787.01 NAUSEA WITH VOMITING 04/28/2009 787.01 NAUSEA WITH VOMITING 04/28/2009 STANFORD CAAL DO K 787.01 NAUSEA WITH VOMITING 04/28/2009 787.01 NAUSEA WITH VOMITING 04/28/2009 787.01 NAUSEA WITH VOMITING 04/28/2009 787.01 NAUSEA WITH VOMITING 04/28/2009 CAAL DO, STANFORD K 787.01 NAUSEA WITH VOMITING 04/28/2009 CAAL DO, STANFORD K 787.01 NAUSEA WITH VOMITING 04/28/2009 CAAL DO, STANFORD K 787.01 NAUSEA WITH VOMITING 04/28/2009 CAAL DO, STANFORD K 787.01 NAUSEA WITH VOMITING 04/28/2009 CAAL DO, STANFORD K 787.01 NAUSEA WITH VOMITING 04/28/2009 CAAL DO, STANFORD K 787.01 NAUSEA WITH VOMITING 04/28/2009 CAAL DO, STANFORD K 787.01 NAUSEA WITH VOMITING 04/28/2009 LOUIS GARVEY APRN R 787.01 NAUSEA WITH VOMITING 04/28/2009 CAAL DO, STANFORD K 787.01 NAUSEA WITH VOMITING 04/28/2009 CAAL DO, STANFORD K 787.01 NAUSEA WITH VOMITING 04/28/2009 CAAL DO, STANFORD K 787.01 NAUSEA WITH VOMITING 04/28/2009 LOUIS GARVEY APRN R 787.01 NAUSEA WITH VOMITING 04/28/2009 CAAL DO, STANFORD K 787.01 NAUSEA WITH VOMITING 04/28/2009 RUBINA HARLEY APRN 787.01 NAUSEA WITH VOMITING 04/28/2009 LEO BENITEZ MD 787.01 NAUSEA WITH VOMITING 04/28/2009 RUBINA HARLEY APRN 787.01 NAUSEA WITH VOMITING 04/28/2009 ARISTEO ARAYA APRN 787.01 NAUSEA WITH VOMITING 04/28/2009 LOUIS GARVEY APRN R 787.01 NAUSEA WITH VOMITING 08/01/2009 CAAL DO, STANFORD K 840.9 SPRAIN/STRAIN SHOULDER/ARM 08/01/2009 840.9 SPRAIN/STRAIN SHOULDER/ARM 08/01/2009 840.9 SPRAIN/STRAIN SHOULDER/ARM 08/01/2009 CAAL DO, STANFORD K 840.9 SPRAIN/STRAIN SHOULDER/ARM 08/01/2009 840.9 SPRAIN/STRAIN SHOULDER/ARM 08/01/2009 CAAL DO, STANFORD K 840.9 SPRAIN/STRAIN SHOULDER/ARM 08/01/2009 CAAL DO, STANFORD K 840.9 SPRAIN/STRAIN SHOULDER/ARM 08/01/2009 840.9 SPRAIN/STRAIN SHOULDER/ARM 08/01/2009 840.9 SPRAIN/STRAIN SHOULDER/ARM 08/01/2009 CAAL DO, STANFORD K 840.9 SPRAIN/STRAIN SHOULDER/ARM 08/01/2009 840.9 SPRAIN/STRAIN SHOULDER/ARM 08/01/2009 840.9 SPRAIN/STRAIN SHOULDER/ARM 08/01/2009 840.9 SPRAIN/STRAIN SHOULDER/ARM 08/01/2009 CAAL DO, STANFORD K 840.9 SPRAIN/STRAIN SHOULDER/ARM 08/01/2009 CAAL DO, STANFORD K 840.9 SPRAIN/STRAIN SHOULDER/ARM 08/01/2009 CAAL DO, STANFORD K 840.9 SPRAIN/STRAIN SHOULDER/ARM 08/01/2009 CAAL DO, STANFORD K 840.9 SPRAIN/STRAIN SHOULDER/ARM 08/01/2009 CAAL DO, STANFORD K 840.9 SPRAIN/STRAIN SHOULDER/ARM 08/01/2009 CAAL DO, STANFORD K 840.9 SPRAIN/STRAIN SHOULDER/ARM 08/01/2009 CAAL DO, STANFORD K 840.9 SPRAIN/STRAIN SHOULDER/ARM 08/01/2009 LOUIS GARVEY APRN R 840.9 SPRAIN/STRAIN SHOULDER/ARM 08/01/2009 CAAL DO, STANFORD K 840.9 SPRAIN/STRAIN SHOULDER/ARM 08/01/2009 CAAL DO, STANFORD K 840.9 SPRAIN/STRAIN SHOULDER/ARM 08/01/2009 CAAL DO, STANFORD K 840.9 SPRAIN/STRAIN SHOULDER/ARM 08/01/2009 JENN GARVEY APRNINA R 840.9 SPRAIN/STRAIN SHOULDER/ARM 08/01/2009 CAAL DO, STANFORD K 840.9 SPRAIN/STRAIN SHOULDER/ARM 08/01/2009 RUBINA HARLEY APRN 840.9 SPRAIN/STRAIN SHOULDER/ARM 08/01/2009 LEO EBNITEZ MD 840.9 SPRAIN/STRAIN SHOULDER/ARM 08/01/2009 RUBINA HARLEY APRN 840.9 SPRAIN/STRAIN SHOULDER/ARM 08/01/2009 ARISTEO ARAYA APRN 840.9 SPRAIN/STRAIN SHOULDER/ARM 08/01/2009 JENN GARVEY APRNINA R 840.9 SPRAIN/STRAIN SHOULDER/ARM 02/14/2010 CAAL DO, STANFORD K 719.46 Pain In Joint, Lower Leg 02/14/2010 719.46 Pain In Joint , Lower Leg 02/14/2010 719.46 Pain In Joint , Lower Leg 02/14/2010 CAAL DO, STANFORD K 719.46 Pain In Joint, Lower Leg 02/14/2010 719.46 Pain In Joint , Lower Leg 02/14/2010 CAAL DO, STANFORD K 719.46 Pain In Joint, Lower Leg 02/14/2010 CAAL DO, STANFORD K 719.46 Pain In Joint, Lower Leg 02/14/2010 719.46 Pain In Joint , Lower Leg 02/14/2010 719.46 Pain In Joint , Lower Leg 02/14/2010 CAAL DO, STANFORD K 719.46 Pain In Joint, Lower Leg 02/14/2010 719.46 Pain In Joint , Lower Leg 02/14/2010 719.46 Pain In Joint , Lower Leg 02/14/2010 719.46 Pain In Joint , Lower Leg 02/14/2010 CAAL DO, STANFORD K 719.46 Pain In Joint, Lower Leg 02/14/2010 CAAL DO, STANFORD K 719.46 Pain In Joint, Lower Leg 02/14/2010 CAAL DO, STANFORD K 719.46 Pain In Joint, Lower Leg 02/14/2010 CAAL DO, STANFORD K 719.46 Pain In Joint, Lower Leg 02/14/2010 CAAL DO, STANFORD K 719.46 Pain In Joint, Lower Leg 02/14/2010 CAAL DO, STANFORD K 719.46 Pain In Joint, Lower Leg 02/14/2010 CAAL DO, STANFORD K 719.46 Pain In Joint, Lower Leg 02/14/2010 LOUIS GARVEY APRN R 719.46 Pain In Joint, Lower Leg 02/14/2010 CAAL DO, STANFORD K 719.46 Pain In Joint, Lower Leg 02/14/2010 CAAL DO, STANFORD K 719.46 Pain In Joint, Lower Leg 02/14/2010 CAAL DO, STANFORD K 719.46 Pain In Joint, Lower Leg 02/14/2010 LOUIS GARVEY APRN R 719.46 Pain In Joint, Lower Leg 02/14/2010 CAAL DO, STANFORD K 719.46 Pain In Joint, Lower Leg 02/14/2010 RUBINA HARLEY APRN 719.46 Pain In Joint, Lower Leg 02/14/2010 LEO BENITEZ MD 719.46 Pain In Joint, Lower Leg 02/14/2010 RUBINA HARLEY APRN 719.46 Pain In Joint, Lower Leg 02/14/2010 ARISTEO ARAYA APRN 719.46 Pain In Joint, Lower Leg 02/14/2010 LOUIS GARVEY APRN 719.46 Pain In Joint, Lower Leg 04/18/2010 AFUA GARCIA STANFORD K 717.2 Derangement Of Posterior Horn Of Medial Meniscus 04/18/2010 717.2 Derangement Of Posterior Horn Of Medial Meniscus 04/18/2010 717.2 Derangement Of Posterior Horn Of Medial Meniscus 04/18/2010 AFUA GARCIA STAN[place]ORD K 717.2 Derangement Of Posterior Horn Of Medial Meniscus 04/18/2010 717.2 Derangement Of Posterior Horn Of Medial Meniscus 04/18/2010 AFUA GARCIA STAN[place]ORD K 717.2 Derangement Of Posterior Horn Of Medial Meniscus 04/18/2010 AFUA GACRIA STAN[place]ORD K 717.2 Derangement Of Posterior Horn Of Medial Meniscus 04/18/2010 717.2 Derangement Of Posterior Horn Of Medial Meniscus 04/18/2010 717.2 Derangement Of Posterior Horn Of Medial Meniscus 04/18/2010 AFUA GARCIA STAN[place]ORD K 717.2 Derangement Of Posterior Horn Of Medial Meniscus 04/18/2010 717.2 Derangement Of Posterior Horn Of Medial Meniscus 04/18/2010 717.2 Derangement Of Posterior Horn Of Medial Meniscus 04/18/2010 717.2 Derangement Of Posterior Horn Of Medial Meniscus 04/18/2010 AFUA GARCIA STAN[place]ORD K 717.2 Derangement Of Posterior Horn Of Medial Meniscus 04/18/2010 CAAL DO STANFORD K 717.2 Derangement Of Posterior Horn Of Medial Meniscus 04/18/2010 CAAL DO STANFORD K 717.2 Derangement Of Posterior Horn Of Medial Meniscus 04/18/2010 CAAL DO STANFORD K 717.2 Derangement Of Posterior Horn Of Medial Meniscus 04/18/2010 CAAL DO STANFORD K 717.2 Derangement Of Posterior Horn Of Medial Meniscus 04/18/2010 CAAL DO STANFORD K 717.2 Derangement Of Posterior Horn Of Medial Meniscus 04/18/2010 STANFORD CAAL DO K 717.2 Derangement Of Posterior Horn Of Medial Meniscus 04/18/2010 GURU BLEVINSN, LOUIS R 717.2 Derangement Of Posterior Horn Of Medial Meniscus 04/18/2010 CLEMENTINE CAAL DOA K 717.2 Derangement Of Posterior Horn Of Medial Meniscus 04/18/2010 CAAL STANFORD GARCIA K 717.2 Derangement Of Posterior Horn Of Medial Meniscus 04/18/2010 STANFORD CAAL DO K 717.2 Derangement Of Posterior Horn Of Medial Meniscus 04/18/2010 GURU QUEZADA, LOUIS R 717.2 Derangement Of Posterior Horn Of Medial Meniscus 04/18/2010 CAAL CLEMENTINE GARCIAA K 717.2 Derangement Of Posterior Horn Of Medial Meniscus 04/18/2010 RUBINA HARLEY APRN 717.2 Derangement Of Posterior Horn Of Medial Meniscus 04/18/2010 LEO BENITEZ MD 717.2 Derangement Of Posterior Horn Of Medial Meniscus 04/18/2010 RUBINA HARLEY APRN 717.2 Derangement Of Posterior Horn Of Medial Meniscus 04/18/2010 ARISTEO ARAYA APRN 717.2 Derangement Of Posterior Horn Of Medial Meniscus 04/18/2010 GURU QUEZADA, L[place] R 717.2 Derangement Of Posterior Horn Of Medial Meniscus 10/02/2010 STANFORD CAAL DO 461.9 SINUSITIS ACUTE 10/02/2010 461.9 SINUSITIS ACUTE 10/02/2010 461.9 SINUSITIS ACUTE 10/02/2010 STANFORD CAAL DO K 461.9 SINUSITIS ACUTE 10/02/2010 461.9 SINUSITIS ACUTE 10/02/2010 STANFORD CAAL DO K 461.9 SINUSITIS ACUTE 10/02/2010 STANFORD CAAL DO K 461.9 SINUSITIS ACUTE 10/02/2010 461.9 SINUSITIS ACUTE 10/02/2010 461.9 SINUSITIS ACUTE 10/02/2010 STANFORD CAAL DO K 461.9 SINUSITIS ACUTE 10/02/2010 461.9 SINUSITIS ACUTE 10/02/2010 461.9 SINUSITIS ACUTE 10/02/2010 461.9 SINUSITIS ACUTE 10/02/2010 STANFORD CAAL DO K 461.9 SINUSITIS ACUTE 10/02/2010 STANFORD CAAL DO K 461.9 SINUSITIS ACUTE 10/02/2010 CAAL DO, STANFORD K 461.9 SINUSITIS ACUTE 10/02/2010 CAAL DO, STANFORD K 461.9 SINUSITIS ACUTE 10/02/2010 CAAL DO, STANFORD K 461.9 SINUSITIS ACUTE 10/02/2010 CAAL DO, STANFORD K 461.9 SINUSITIS ACUTE 10/02/2010 CAAL DO, STANFORD K 461.9 SINUSITIS ACUTE 10/02/2010 LOUIS GARVEY APRN R 461.9 SINUSITIS ACUTE 10/02/2010 CAAL DO, STANFORD K 461.9 SINUSITIS ACUTE 10/02/2010 CAAL DO, STANFORD K 461.9 SINUSITIS ACUTE 10/02/2010 CAAL DO, STANFORD K 461.9 SINUSITIS ACUTE 10/02/2010 LOUIS GARVEY APRN R 461.9 SINUSITIS ACUTE 10/02/2010 CAAL DO, STANFORD K 461.9 SINUSITIS ACUTE 10/02/2010 RUBINA HARLEY APRN 461.9 SINUSITIS ACUTE 10/02/2010 LEO BENITEZ MD 461.9 SINUSITIS ACUTE 10/02/2010 RUBINA HARLEY APRN 461.9 SINUSITIS ACUTE 10/02/2010 ARISTEO ARAYA APRN 461.9 SINUSITIS ACUTE 10/02/2010 LOUIS GARVEY APRN R 461.9 SINUSITIS ACUTE 11/01/2010 CAAL DO, STANFORD K 300.00 ANXIETY UNSPEC 11/01/2010 CAAL DO, STANFORD K 780.52 INSOMNIA UNSPECIFIED 11/01/2010 300.00 ANXIETY UNSPEC 11/01/2010 780.52 INSOMNIA UNSPECIFIED 11/01/2010 300.00 ANXIETY UNSPEC 11/01/2010 780.52 INSOMNIA UNSPECIFIED 11/01/2010 CAAL DO, STANFORD K 300.00 ANXIETY UNSPEC 11/01/2010 CAAL DO, STANFORD K 780.52 INSOMNIA UNSPECIFIED 11/01/2010 300.00 ANXIETY UNSPEC 11/01/2010 780.52 INSOMNIA UNSPECIFIED 11/01/2010 CAAL DO, STANFORD K 300.00 ANXIETY UNSPEC 11/01/2010 CAAL DO, STANFORD K 780.52 INSOMNIA UNSPECIFIED 11/01/2010 CAAL DO, STANFORD K 300.00 ANXIETY UNSPEC 11/01/2010 CAAL DO, STANFORD K 780.52 INSOMNIA UNSPECIFIED 11/01/2010 300.00 ANXIETY UNSPEC 11/01/2010 780.52 INSOMNIA UNSPECIFIED 11/01/2010 300.00 ANXIETY UNSPEC 11/01/2010 780.52 INSOMNIA UNSPECIFIED 11/01/2010 CAAL DO, STANFORD K 300.00 ANXIETY UNSPEC 11/01/2010 CAAL DO, STANFORD K 780.52 INSOMNIA UNSPECIFIED 11/01/2010 300.00 ANXIETY UNSPEC 11/01/2010 780.52 INSOMNIA UNSPECIFIED 11/01/2010 300.00 ANXIETY UNSPEC 11/01/2010 780.52 INSOMNIA UNSPECIFIED 11/01/2010 300.00 ANXIETY UNSPEC 11/01/2010 780.52 INSOMNIA UNSPECIFIED 11/01/2010 CAAL DO, STANFORD K 300.00 ANXIETY UNSPEC 11/01/2010 CAAL DO, STANFORD K 780.52 INSOMNIA UNSPECIFIED 11/01/2010 CAAL DO, STANFORD K 300.00 ANXIETY UNSPEC 11/01/2010 CAAL DO, STANFORD K 780.52 INSOMNIA UNSPECIFIED 11/01/2010 CAAL DO, STANFORD K 300.00 ANXIETY UNSPEC 11/01/2010 CAAL DO, STANFORD K 780.52 INSOMNIA UNSPECIFIED 11/01/2010 CAAL DO, STANFORD K 300.00 ANXIETY UNSPEC 11/01/2010 CAAL DO, STANFORD K 780.52 INSOMNIA UNSPECIFIED 11/01/2010 CAAL DO, STANFORD K 300.00 ANXIETY UNSPEC 11/01/2010 CAAL DO, STANFORD K 780.52 INSOMNIA UNSPECIFIED 11/01/2010 CAAL DO, STANFORD K 300.00 ANXIETY UNSPEC 11/01/2010 CAAL DO, STANFORD K 780.52 INSOMNIA UNSPECIFIED 11/01/2010 CAAL DO, STANFORD K 300.00 ANXIETY UNSPEC 11/01/2010 CAAL DO, STANFORD K 780.52 INSOMNIA UNSPECIFIED 11/01/2010 GURU TIN FLOPPER LOUIS R 300.00 ANXIETY UNSPEC 11/01/2010 GURU QUEZADA LOU[place] R 780.52 INSOMNIA UNSPECIFIED 11/01/2010 CAAL DO, STANFORD K 300.00 ANXIETY UNSPEC 11/01/2010 CAAL DO, STANFORD K 780.52 INSOMNIA UNSPECIFIED 11/01/2010 CAAL DO, STANFORD K 300.00 ANXIETY UNSPEC 11/01/2010 CAAL DO, STANFORD K 780.52 INSOMNIA UNSPECIFIED 11/01/2010 CAAL DO, STANFORD K 300.00 ANXIETY UNSPEC 11/01/2010 CAAL DO, STANFORD K 780.52 INSOMNIA UNSPECIFIED 11/01/2010 GURU TIN FLOPPER, LOUIS R 300.00 ANXIETY UNSPEC 11/01/2010 GURU TIN FLOPPER, L[place] R 780.52 INSOMNIA UNSPECIFIED 11/01/2010 CAAL DO, STANFORD K 300.00 ANXIETY UNSPEC 11/01/2010 CAAL DO, STANFORD K 780.52 INSOMNIA UNSPECIFIED 11/01/2010 HARLEY TIN FLOPPERRUBINA Hwang 300.00 ANXIETY UNSPEC 11/01/2010 RUBINA HARLEY APRN D 780.52 INSOMNIA UNSPECIFIED 11/01/2010 LEO BENITEZ MD 300.00 ANXIETY UNSPEC 11/01/2010 LEO BENITEZ MD 780.52 INSOMNIA UNSPECIFIED 11/01/2010 CHERRI TIN FLOPPERRUBINA Hwang 300.00 ANXIETY UNSPEC 11/01/2010 RUBINA HARLEY APRN 780.52 INSOMNIA UNSPECIFIED 11/01/2010 ARISTEO ARAYA APRN 300.00 ANXIETY UNSPEC 11/01/2010 MARSHAL QUEZADA ARISTEO Jaswant 780.52 INSOMNIA UNSPECIFIED 11/01/2010 GURU QUEZADA LOUIS R 300.00 ANXIETY UNSPEC 11/01/2010 GURU BLEVINSN, [place] R 780.52 INSOMNIA UNSPECIFIED 11/15/2010 CAAL DO, STANFORD K 784.0 Headache 11/15/2010 784.0 Headache 11/15/2010 784.0 Headache 11/15/2010 CAAL DO, STANFORD K 784.0 Headache 11/15/2010 784.0 Headache 11/15/2010 CAAL DO, STANFORD K 784.0 Headache 11/15/2010 CAAL DO, STANFORD K 784.0 Headache 11/15/2010 784.0 Headache 11/15/2010 784.0 Headache 11/15/2010 CAAL DO, STANFORD K 784.0 Headache 11/15/2010 784.0 Headache 11/15/2010 784.0 Headache 11/15/2010 784.0 Headache 11/15/2010 CAAL DO, STANFORD K 784.0 Headache 11/15/2010 CAAL DO, STANFORD K 784.0 Headache 11/15/2010 CAAL DO, STANFORD K 784.0 Headache 11/15/2010 CAAL DO, STANFORD K 784.0 Headache 11/15/2010 CAAL DO, STANFORD K 784.0 Headache 11/15/2010 CAAL DO, STANFORD K 784.0 Headache 11/15/2010 CAAL DO, STANFORD K 784.0 Headache 11/15/2010 GURU TIN FLOPPER, [place] R 784.0 Headache 11/15/2010 CAAL DO, STANFORD K 784.0 Headache 11/15/2010 CAAL DO, STANFORD K 784.0 Headache 11/15/2010 CAAL DO, STANFORD K 784.0 Headache 11/15/2010 GURU TIN FLOPPER, [place] R 784.0 Headache 11/15/2010 CAAL DO, STANFORD K 784.0 Headache 11/15/2010 CHERRI QUEZADA, RUBINA D 784.0 Headache 11/15/2010 LEO BENITEZ MD 784.0 Headache 11/15/2010 CHERRI QUEZADA, RUBINA Salazar 784.0 Headache 11/15/2010 ARISTEO ARAYA APRN 784.0 Headache 11/15/2010 GURU QUEZADA, LOUIS R 784.0 Headache 01/29/2011 CAAL DO, STANFORD K 401.1 ESSENTIAL HYPERTENSION BENIGN 01/29/2011 401.1 ESSENTIAL HYPERTENSION BENIGN 01/29/2011 401.1 ESSENTIAL HYPERTENSION BENIGN 01/29/2011 CAAL DO, STANFORD K 401.1 ESSENTIAL HYPERTENSION BENIGN 01/29/2011 401.1 ESSENTIAL HYPERTENSION BENIGN 01/29/2011 CAAL DO, STANFORD K 401.1 ESSENTIAL HYPERTENSION BENIGN 01/29/2011 CAAL DO, STANFORD K 401.1 ESSENTIAL HYPERTENSION BENIGN 01/29/2011 401.1 ESSENTIAL HYPERTENSION BENIGN 01/29/2011 401.1 ESSENTIAL HYPERTENSION BENIGN 01/29/2011 CAAL DO, STANFORD K 401.1 ESSENTIAL HYPERTENSION BENIGN 01/29/2011 401.1 ESSENTIAL HYPERTENSION BENIGN 01/29/2011 401.1 ESSENTIAL HYPERTENSION BENIGN 01/29/2011 401.1 ESSENTIAL HYPERTENSION BENIGN 01/29/2011 CAAL DO, STANFORD K 401.1 ESSENTIAL HYPERTENSION BENIGN 01/29/2011 CAAL DO, STANFORD K 401.1 ESSENTIAL HYPERTENSION BENIGN 01/29/2011 CAAL DO, STANFORD K 401.1 ESSENTIAL HYPERTENSION BENIGN 01/29/2011 CAAL DO, STANFORD K 401.1 ESSENTIAL HYPERTENSION BENIGN 01/29/2011 CAAL DO, STANFORD K 401.1 ESSENTIAL HYPERTENSION BENIGN 01/29/2011 CAAL DO, STANFORD K 401.1 ESSENTIAL HYPERTENSION BENIGN 01/29/2011 CAAL DO, STANFORD K 401.1 ESSENTIAL HYPERTENSION BENIGN 01/29/2011 GURU BLEVINSN, LOUIS R 401.1 ESSENTIAL HYPERTENSION BENIGN 01/29/2011 CAAL DO, STANFORD K 401.1 ESSENTIAL HYPERTENSION BENIGN 01/29/2011 CAAL DO, STANFORD K 401.1 ESSENTIAL HYPERTENSION BENIGN 01/29/2011 CAAL DO, STANFORD K 401.1 ESSENTIAL HYPERTENSION BENIGN 01/29/2011 LOUIS GARVEY APRN 401.1 ESSENTIAL HYPERTENSION BENIGN 01/29/2011 CAAL DO, STANFORD K 401.1 ESSENTIAL HYPERTENSION BENIGN 01/29/2011 RUBINA HARLEY APRN 401.1 ESSENTIAL HYPERTENSION BENIGN 01/29/2011 LEO BENITEZ MD 401.1 ESSENTIAL HYPERTENSION BENIGN 01/29/2011 RUBINA HARLEY APRN 401.1 ESSENTIAL HYPERTENSION BENIGN 01/29/2011 ARISTEO ARAYA APRN 401.1 ESSENTIAL HYPERTENSION BENIGN 01/29/2011 LOUIS GARVEY APRN 401.1 ESSENTIAL HYPERTENSION BENIGN 01/31/2011 CAAL DO, STANFORD K NODX NO DIAGNOSIS 01/31/2011 NODX NO DIAGNOSIS 01/31/2011 NODX NO DIAGNOSIS 01/31/2011 CAAL DO, STANFORD K NODX NO DIAGNOSIS 01/31/2011 NODX NO DIAGNOSIS 01/31/2011 CAAL DO, STANFORD K NODX NO DIAGNOSIS 01/31/2011 CAAL DO, STANFORD K NODX NO DIAGNOSIS 01/31/2011 NODX NO DIAGNOSIS 01/31/2011 NODX NO DIAGNOSIS 01/31/2011 CAAL DO, STANFORD K NODX NO DIAGNOSIS 01/31/2011 NODX NO DIAGNOSIS 01/31/2011 NODX NO DIAGNOSIS 01/31/2011 NODX NO DIAGNOSIS 01/31/2011 CAAL DO, STANFORD K NODX NO DIAGNOSIS 01/31/2011 CAAL DO, STANFORD K NODX NO DIAGNOSIS 01/31/2011 CAAL DO, STANFORD K NODX NO DIAGNOSIS 01/31/2011 CAAL DO, STANFORD K NODX NO DIAGNOSIS 01/31/2011 CAAL DO, STANFORD K NODX NO DIAGNOSIS 01/31/2011 CAAL DO, STANFORD K NODX NO DIAGNOSIS 01/31/2011 CAAL DO, STANFORD K NODX NO DIAGNOSIS 01/31/2011 LOUIS GARVEY APRN R NODX NO DIAGNOSIS 01/31/2011 CAAL DO, STANFORD K NODX NO DIAGNOSIS 01/31/2011 CAAL DO, STANFORD K NODX NO DIAGNOSIS 01/31/2011 CAAL DO, STANFORD K NODX NO DIAGNOSIS 01/31/2011 LOUIS GARVEY APRN NODX NO DIAGNOSIS 01/31/2011 CAAL DO, STANFORD K NODX NO DIAGNOSIS 01/31/2011 RUBINA HARLEY APRN NODX NO DIAGNOSIS 01/31/2011 ELI BRICENO, LEO NODX NO DIAGNOSIS 01/31/2011 RUBINA HARLEY APRN NODX NO DIAGNOSIS 01/31/2011 ARISTEO ARAYA APRN NODX NO DIAGNOSIS 01/31/2011 LOUIS GARVEY APRN R NODX NO DIAGNOSIS 02/12/2011 CAAL DO, STANFORD K 790.29 Hyperglycemia 02/12/2011 790.29 Hyperglycemia 02/12/2011 790.29 Hyperglycemia 02/12/2011 CAAL DO, STANFORD K 790.29 Hyperglycemia 02/12/2011 790.29 Hyperglycemia 02/12/2011 CAAL DO, STANFORD K 790.29 Hyperglycemia 02/12/2011 CAAL DO, STANFORD K 790.29 Hyperglycemia 02/12/2011 790.29 Hyperglycemia 02/12/2011 790.29 Hyperglycemia 02/12/2011 CAAL DO, STANFORD K 790.29 Hyperglycemia 02/12/2011 790.29 Hyperglycemia 02/12/2011 790.29 Hyperglycemia 02/12/2011 790.29 Hyperglycemia 02/12/2011 CAAL DO, STANFORD K 790.29 Hyperglycemia 02/12/2011 CAAL DO, STANFORD K 790.29 Hyperglycemia 02/12/2011 CAAL DO, STANFORD K 790.29 Hyperglycemia 02/12/2011 CAAL DO, STANFORD K 790.29 Hyperglycemia 02/12/2011 CAAL DO, STANFORD K 790.29 Hyperglycemia 02/12/2011 CAAL DO, STANFORD K 790.29 Hyperglycemia 02/12/2011 CAAL DO, STANFORD K 790.29 Hyperglycemia 02/12/2011 JENN GARVEY APRNINA R 790.29 Hyperglycemia 02/12/2011 CAAL DO, STANFORD K 790.29 Hyperglycemia 02/12/2011 CAAL DO, ST[place] K 790.29 Hyperglycemia 02/12/2011 CAAL DO, ST[place] K 790.29 Hyperglycemia 02/12/2011 LOUIS GARVEY APRN R 790.29 Hyperglycemia 02/12/2011 CAAL DO, STAN[place]ORD K 790.29 Hyperglycemia 02/12/2011 RUBINA HARLEY APRN 790.29 Hyperglycemia 02/12/2011 LEO BENITEZ MD 790.29 Hyperglycemia 02/12/2011 RUBINA HARLEY APRN 790.29 Hyperglycemia 02/12/2011 ARISTEO ARAYA APRN 790.29 Hyperglycemia 02/12/2011 LOUIS GARVEY APRN R 790.29 Hyperglycemia 02/21/2011 CAAL DO, STANFORD K 780.4 Dizziness And Vertigo 02/21/2011 780.4 Dizziness And Vertigo 02/21/2011 780.4 Dizziness And Vertigo 02/21/2011 CAAL DO, STANFORD K 780.4 Dizziness And Vertigo 02/21/2011 780.4 Dizziness And Vertigo 02/21/2011 CAAL DO, STAN[place]ORD K 780.4 Dizziness And Vertigo 02/21/2011 CAAL DO, STAN[place]ORD K 780.4 Dizziness And Vertigo 02/21/2011 780.4 Dizziness And Vertigo 02/21/2011 780.4 Dizziness And Vertigo 02/21/2011 CAAL DO, STAN[place]ORD K 780.4 Dizziness And Vertigo 02/21/2011 780.4 Dizziness And Vertigo 02/21/2011 780.4 Dizziness And Vertigo 02/21/2011 780.4 Dizziness And Vertigo 02/21/2011 CAAL DO, STANFORD K 780.4 Dizziness And Vertigo 02/21/2011 CAAL DO, STANFORD K 780.4 Dizziness And Vertigo 02/21/2011 CAAL DO, STANFORD K 780.4 Dizziness And Vertigo 02/21/2011 CAAL DO, STANFORD K 780.4 Dizziness And Vertigo 02/21/2011 CAAL DO, ST[place]ORD K 780.4 Dizziness And Vertigo 02/21/2011 CAAL DO, STANFORD K 780.4 Dizziness And Vertigo 02/21/2011 CAAL DO, STANFORD K 780.4 Dizziness And Vertigo 02/21/2011 GURU QUEZADA [place] R 780.4 Dizziness And Vertigo 02/21/2011 CAAL DO, STANFORD K 780.4 Dizziness And Vertigo 02/21/2011 CAAL DO, STAN[place]ORD K 780.4 Dizziness And Vertigo 02/21/2011 CAAL DO, ST[place]ORD K 780.4 Dizziness And Vertigo 02/21/2011 GURU QUEZADA [place] R 780.4 Dizziness And Vertigo 02/21/2011 CAAL DO, ST[place] K 780.4 Dizziness And Vertigo 02/21/2011 RUBINA HARLEY APRN 780.4 Dizziness And Vertigo 02/21/2011 LEO BENITEZ MD 780.4 Dizziness And Vertigo 02/21/2011 RUBINA HARLEY APRN 780.4 Dizziness And Vertigo 02/21/2011 ARISTEO ARAYA APRN 780.4 Dizziness And Vertigo 02/21/2011 GURU QUEZADA, [place] R 780.4 Dizziness And Vertigo 05/21/2011 CAAL DO, STANFORD K 296.32 MO DEPRESSIVE RECURRENT MODERATE 05/21/2011 296.32 MO DEPRESSIVE RECURRENT MODERATE 05/21/2011 296.32 MO DEPRESSIVE RECURRENT MODERATE 05/21/2011 CAAL DO, ST[place]ORD K 296.32 MO DEPRESSIVE RECURRENT MODERATE 05/21/2011 296.32 MO DEPRESSIVE RECURRENT MODERATE 05/21/2011 CAAL DO, ST[place] K 296.32 MO DEPRESSIVE RECURRENT MODERATE 05/21/2011 CAAL DO, ST[place] K 296.32 MO DEPRESSIVE RECURRENT MODERATE 05/21/2011 296.32 MO DEPRESSIVE RECURRENT MODERATE 05/21/2011 296.32 MO DEPRESSIVE RECURRENT MODERATE 05/21/2011 CAAL DO, ST[place] K 296.32 MO DEPRESSIVE RECURRENT MODERATE 05/21/2011 296.32 MO DEPRESSIVE RECURRENT MODERATE 05/21/2011 296.32 MO DEPRESSIVE RECURRENT MODERATE 05/21/2011 296.32 MO DEPRESSIVE RECURRENT MODERATE 05/21/2011 CAAL DO, ST[place] K 296.32 MO DEPRESSIVE RECURRENT MODERATE 05/21/2011 CAAL DO, ST[place] K 296.32 MO DEPRESSIVE RECURRENT MODERATE 05/21/2011 CAAL DO, ST[place] K 296.32 MO DEPRESSIVE RECURRENT MODERATE 05/21/2011 CAAL DO, ST[place] K 296.32 MO DEPRESSIVE RECURRENT MODERATE 05/21/2011 CAAL DO, ST[place] K 296.32 MO DEPRESSIVE RECURRENT MODERATE 05/21/2011 CAAL DO, STAN[place] K 296.32 MO DEPRESSIVE RECURRENT MODERATE 05/21/2011 CAAL DO, STAN[place]ORD K 296.32 MO DEPRESSIVE RECURRENT MODERATE 05/21/2011 GURU TIN FLOPPER, [place] R 296.32 MO DEPRESSIVE RECURRENT MODERATE 05/21/2011 CAAL DO, STANFORD K 296.32 MO DEPRESSIVE RECURRENT MODERATE 05/21/2011 CAAL DO, STAN[place]ORD K 296.32 MO DEPRESSIVE RECURRENT MODERATE 05/21/2011 CAAL DO, STAN[place]ORD K 296.32 MO DEPRESSIVE RECURRENT MODERATE 05/21/2011 GURU QUEZADA, [place] R 296.32 MO DEPRESSIVE RECURRENT MODERATE 05/21/2011 CAAL DO, STANFORD K 296.32 MO DEPRESSIVE RECURRENT MODERATE 05/21/2011 RUBINA HARLEY APRN 296.32 MO DEPRESSIVE RECURRENT MODERATE 05/21/2011 LEO BENITEZ MD 296.32 MO DEPRESSIVE RECURRENT MODERATE 05/21/2011 RUBINA HARLEY APRN 296.32 MO DEPRESSIVE RECURRENT MODERATE 05/21/2011 ARISTEO ARAYA APRN 296.32 MO DEPRESSIVE RECURRENT MODERATE 05/21/2011 L[place]IS GARVEY APRN 296.32 MO DEPRESSIVE RECURRENT MODERATE 06/11/2011 STANFORD CAAL DO 346.90 MIGRAINE HEADACHE 06/11/2011 STAN[place]ORD CAAL DO 493.90 ASTHMA UNSPECIFIED 06/11/2011 ST[place]ORD CAAL DO 530.81 GERD 06/11/2011 346.90 MIGRAINE HEADACHE 06/11/2011 493.90 ASTHMA UNSPECIFIED 06/11/2011 530.81 GERD 06/11/2011 346.90 MIGRAINE HEADACHE 06/11/2011 493.90 ASTHMA UNSPECIFIED 06/11/2011 530.81 GERD 06/11/2011 [place] CAAL DO 346.90 MIGRAINE HEADACHE 06/11/2011 ST[place] CAAL DO 493.90 ASTHMA UNSPECIFIED 06/11/2011 [place] CAAL DO 530.81 GERD 06/11/2011 346.90 MIGRAINE HEADACHE 06/11/2011 493.90 ASTHMA UNSPECIFIED 06/11/2011 530.81 GERD 06/11/2011 [place] CAAL DO 346.90 MIGRAINE HEADACHE 06/11/2011 ST[place] CAAL DO 493.90 ASTHMA UNSPECIFIED 06/11/2011 [place] CAAL DO K 530.81 GERD 06/11/2011 [place] CAAL DO K 346.90 MIGRAINE HEADACHE 06/11/2011 ST[place] CAAL DO 493.90 ASTHMA UNSPECIFIED 06/11/2011 [place] CAAL DO 530.81 GERD 06/11/2011 346.90 MIGRAINE HEADACHE 06/11/2011 493.90 ASTHMA UNSPECIFIED 06/11/2011 530.81 GERD 06/11/2011 346.90 MIGRAINE HEADACHE 06/11/2011 493.90 ASTHMA UNSPECIFIED 06/11/2011 530.81 GERD 06/11/2011 [place] CAAL DO K 346.90 MIGRAINE HEADACHE 06/11/2011 [place] CAAL DO 493.90 ASTHMA UNSPECIFIED 06/11/2011 [place] CAAL DO 530.81 GERD 06/11/2011 346.90 MIGRAINE HEADACHE 06/11/2011 493.90 ASTHMA UNSPECIFIED 06/11/2011 530.81 GERD 06/11/2011 346.90 MIGRAINE HEADACHE 06/11/2011 493.90 ASTHMA UNSPECIFIED 06/11/2011 530.81 GERD 06/11/2011 346.90 MIGRAINE HEADACHE 06/11/2011 493.90 ASTHMA UNSPECIFIED 06/11/2011 530.81 GERD 06/11/2011 CAAL DO, STANFORD K 346.90 MIGRAINE HEADACHE 06/11/2011 CAAL DO, STANFORD K 493.90 ASTHMA UNSPECIFIED 06/11/2011 CAAL DO, STAN[place]ORD K 530.81 GERD 06/11/2011 CAAL DO, STANFORD K 346.90 MIGRAINE HEADACHE 06/11/2011 CAAL DO, STANFORD K 493.90 ASTHMA UNSPECIFIED 06/11/2011 CAAL DO, ST[place] K 530.81 GERD 06/11/2011 CAAL DO, STANFORD K 346.90 MIGRAINE HEADACHE 06/11/2011 CAAL DO, STAN[place]ORD K 493.90 ASTHMA UNSPECIFIED 06/11/2011 CAAL DO, STAN[place]ORD K 530.81 GERD 06/11/2011 CAAL DO, STANFORD K 346.90 MIGRAINE HEADACHE 06/11/2011 CAAL DO, STAN[place]ORD K 493.90 ASTHMA UNSPECIFIED 06/11/2011 CAAL DO, STANFORD K 530.81 GERD 06/11/2011 CAAL DO, STANFORD K 346.90 MIGRAINE HEADACHE 06/11/2011 CAAL DO, STANFORD K 493.90 ASTHMA UNSPECIFIED 06/11/2011 CAAL DO, STAN[place]ORD K 530.81 GERD 06/11/2011 CAAL DO, STANFORD K 346.90 MIGRAINE HEADACHE 06/11/2011 CAAL DO, STANFORD K 493.90 ASTHMA UNSPECIFIED 06/11/2011 CAAL DO, STANFORD K 530.81 GERD 06/11/2011 CAAL DO, STANFORD K 346.90 MIGRAINE HEADACHE 06/11/2011 CAAL DO, STANFORD K 493.90 ASTHMA UNSPECIFIED 06/11/2011 CAAL DO, STANFORD K 530.81 GERD 06/11/2011 GURU TIN FLOPPER, [place] R 346.90 MIGRAINE HEADACHE 06/11/2011 GURU TIN FLOPPER, [place] R 493.90 ASTHMA UNSPECIFIED 06/11/2011 GURU TIN FLOPPER, [place] R 530.81 GERD 06/11/2011 CAAL DO, STANFORD K 346.90 MIGRAINE HEADACHE 06/11/2011 CAAL DO, STANFORD K 493.90 ASTHMA UNSPECIFIED 06/11/2011 CAAL DO, STANFORD K 530.81 GERD 06/11/2011 CAAL DO, STANFORD K 346.90 MIGRAINE HEADACHE 06/11/2011 CAAL DO, STANFORD K 493.90 ASTHMA UNSPECIFIED 06/11/2011 CAAL DO, STAN[place]ORD K 530.81 GERD 06/11/2011 CAAL DO, STANFORD K 346.90 MIGRAINE HEADACHE 06/11/2011 CAAL DO, STANFORD K 493.90 ASTHMA UNSPECIFIED 06/11/2011 CAAL DO, STAN[place]ORD K 530.81 GERD 06/11/2011 GURU TIN FLOPPER, [place] R 346.90 MIGRAINE HEADACHE 06/11/2011 GURU TIN FLOPPER, [place] R 493.90 ASTHMA UNSPECIFIED 06/11/2011 GURU TIN FLOPPER, [place] R 530.81 GERD 06/11/2011 CAAL DO, STANFORD K 346.90 MIGRAINE HEADACHE 06/11/2011 CAAL DO, STAN[place]ORD K 493.90 ASTHMA UNSPECIFIED 06/11/2011 CAAL DO, ST[place] K 530.81 GERD 06/11/2011 RUBINA HARLEY APRN 346.90 MIGRAINE HEADACHE 06/11/2011 RUBINA HARLEY APRN 493.90 ASTHMA UNSPECIFIED 06/11/2011 RUBINA HARLEY APRN 530.81 GERD 06/11/2011 LEO BENITEZ MD 346.90 MIGRAINE HEADACHE 06/11/2011 LEO BENITEZ MD 493.90 ASTHMA UNSPECIFIED 06/11/2011 LEO BENITEZ MD 530.81 GERD 06/11/2011 RUBINA HARLEY APRN 346.90 MIGRAINE HEADACHE 06/11/2011 RUBINA HARLEY APRN 493.90 ASTHMA UNSPECIFIED 06/11/2011 RUBINA HARLEY APRN 530.81 GERD 06/11/2011 ARISTEO ARAYA APRN 346.90 MIGRAINE HEADACHE 06/11/2011 ARISTEO ARAYA APRN 493.90 ASTHMA UNSPECIFIED 06/11/2011 ARISTEO ARAYA APRN T 530.81 GERD 06/11/2011 JENN GARVEY APRNINA R 346.90 MIGRAINE HEADACHE 06/11/2011 GURU QUEZADA [place] R 493.90 ASTHMA UNSPECIFIED 06/11/2011 GURU TIN FLOPPER, [place] R 530.81 GERD 07/23/2011 CAAL DO, STAN[place]ORD K 307.81 Headache, Tension 07/23/2011 307.81 Headache, Tension 07/23/2011 307.81 Headache, Tension 07/23/2011 CAAL DO, STAN[place]ORD K 307.81 Headache, Tension 07/23/2011 307.81 Headache, Tension 07/23/2011 CAAL DO, ST[place] K 307.81 Headache, Tension 07/23/2011 CAAL DO, ST[place] K 307.81 Headache, Tension 07/23/2011 307.81 Headache, Tension 07/23/2011 307.81 Headache, Tension 07/23/2011 CAAL DO, ST[place] K 307.81 Headache, Tension 07/23/2011 307.81 Headache, Tension 07/23/2011 307.81 Headache, Tension 07/23/2011 307.81 Headache, Tension 07/23/2011 CAAL DO, STAN[place]ORD K 307.81 Headache, Tension 07/23/2011 CAAL DO, STAN[place]ORD K 307.81 Headache, Tension 07/23/2011 CAAL DO, STAN[place] K 307.81 Headache, Tension 07/23/2011 CAAL DO, STAN[place]ORD K 307.81 Headache, Tension 07/23/2011 CAAL DO, STAN[place]ORD K 307.81 Headache, Tension 07/23/2011 CAAL DO, ST[place] K 307.81 Headache, Tension 07/23/2011 CAAL DO, ST[place] K 307.81 Headache, Tension 07/23/2011 JENN GARVEY APRNINA R 307.81 Headache, Tension 07/23/2011 CAAL DO, ST[place] K 307.81 Headache, Tension 07/23/2011 CAAL DO, ST[place] K 307.81 Headache, Tension 07/23/2011 CAAL DO, STAN[place]ORD K 307.81 Headache, Tension 07/23/2011 GURU QUEZADA [place] R 307.81 Headache, Tension 07/23/2011 CAAL DO, STAN[place]ORD K 307.81 Headache, Tension 07/23/2011 RUBINA HARLEY APRN 307.81 Headache, Tension 07/23/2011 LEO BENITEZ MD 307.81 Headache, Tension 07/23/2011 RUBINA HARLEY APRN 307.81 Headache, Tension 07/23/2011 ARISTEO ARAYA APRN 307.81 Headache, Tension 07/23/2011 JENN GARVEY APRNINA R 307.81 Headache, Tension 08/14/2011 CAAL DO, STAN[place]ORD K 789.63 Abdominal Tenderness Right Lower Quadrant 08/14/2011 789.63 Abdominal Tenderness Right Lower Quadrant 08/14/2011 789.63 Abdominal Tenderness Right Lower Quadrant 08/14/2011 CAAL DO, STAN[place] K 789.63 Abdominal Tenderness Right Lower Quadrant 08/14/2011 789.63 Abdominal Tenderness Right Lower Quadrant 08/14/2011 CAAL DO, ST[place] K 789.63 Abdominal Tenderness Right Lower Quadrant 08/14/2011 CAAL DO, ST[place] K 789.63 Abdominal Tenderness Right Lower Quadrant 08/14/2011 789.63 Abdominal Tenderness Right Lower Quadrant 08/14/2011 789.63 Abdominal Tenderness Right Lower Quadrant 08/14/2011 CAAL DO, STAN[place] K 789.63 Abdominal Tenderness Right Lower Quadrant 08/14/2011 789.63 Abdominal Tenderness Right Lower Quadrant 08/14/2011 789.63 Abdominal Tenderness Right Lower Quadrant 08/14/2011 789.63 Abdominal Tenderness Right Lower Quadrant 08/14/2011 CAAL DO, ST[place] K 789.63 Abdominal Tenderness Right Lower Quadrant 08/14/2011 CAAL DO, ST[place] K 789.63 Abdominal Tenderness Right Lower Quadrant 08/14/2011 CAAL DO, ST[place] K 789.63 Abdominal Tenderness Right Lower Quadrant 08/14/2011 CAAL DO, ST[place] K 789.63 Abdominal Tenderness Right Lower Quadrant 08/14/2011 CAAL DO, ST[place] K 789.63 Abdominal Tenderness Right Lower Quadrant 08/14/2011 CAAL DO, ST[place] K 789.63 Abdominal Tenderness Right Lower Quadrant 08/14/2011 CAAL DO, ST[place] K 789.63 Abdominal Tenderness Right Lower Quadrant 08/14/2011 L[place]IS GARVEY APRN R 789.63 Abdominal Tenderness Right Lower Quadrant 08/14/2011 CAAL DO, [place] K 789.63 Abdominal Tenderness Right Lower Quadrant 08/14/2011 CAAL DO, [place] K 789.63 Abdominal Tenderness Right Lower Quadrant 08/14/2011 CAAL DO, ST[place] K 789.63 Abdominal Tenderness Right Lower Quadrant 08/14/2011 L[place] GARVEY APRN R 789.63 Abdominal Tenderness Right Lower Quadrant 08/14/2011 CAAL DO, ST[place] K 789.63 Abdominal Tenderness Right Lower Quadrant 08/14/2011 RUBINA HARLEY APRN 789.63 Abdominal Tenderness Right Lower Quadrant 08/14/2011 LEO BENITEZ MD 789.63 Abdominal Tenderness Right Lower Quadrant 08/14/2011 RUBINA HARLEY APRN 789.63 Abdominal Tenderness Right Lower Quadrant 08/14/2011 ARISTEO ARAYA APRN 789.63 Abdominal Tenderness Right Lower Quadrant 08/14/2011 L[place] GARVEY APRN 789.63 Abdominal Tenderness Right Lower Quadrant 08/21/2011 [place] CAAL DO 250.00 Diabetes Mellitus Without Mention Of Complication Type Ii Or Unspecified Type Not Stated As Uncontrolled 08/21/2011 [place] CAAL DO K 276.8 Hypopotassemia 08/21/2011 250.00 Diabetes Mellitus Without Mention Of Complication Type Ii Or Unspecified Type Not Stated As Uncontrolled 08/21/2011 276.8 Hypopotassemia 08/21/2011 250.00 Diabetes Mellitus Without Mention Of Complication Type Ii Or Unspecified Type Not Stated As Uncontrolled 08/21/2011 276.8 Hypopotassemia 08/21/2011 [place] CAAL DO K 250.00 Diabetes Mellitus Without Mention Of Complication Type Ii Or Unspecified Type Not Stated As Uncontrolled 08/21/2011 [place] CAAL DO K 276.8 Hypopotassemia 08/21/2011 250.00 Diabetes Mellitus Without Mention Of Complication Type Ii Or Unspecified Type Not Stated As Uncontrolled 08/21/2011 276.8 Hypopotassemia 08/21/2011 [place] CAAL DO K 250.00 Diabetes Mellitus Without Mention Of Complication Type Ii Or Unspecified Type Not Stated As Uncontrolled 08/21/2011 [place] CAAL DO K 276.8 Hypopotassemia 08/21/2011 [place] CAAL DO K 250.00 Diabetes Mellitus Without Mention Of Complication Type Ii Or Unspecified Type Not Stated As Uncontrolled 08/21/2011 [place] CAAL DO K 276.8 Hypopotassemia 08/21/2011 250.00 Diabetes Mellitus Without Mention Of Complication Type Ii Or Unspecified Type Not Stated As Uncontrolled 08/21/2011 276.8 Hypopotassemia 08/21/2011 250.00 Diabetes Mellitus Without Mention Of Complication Type Ii Or Unspecified Type Not Stated As Uncontrolled 08/21/2011 276.8 Hypopotassemia 08/21/2011 [place] CAAL DO K 250.00 Diabetes Mellitus Without Mention Of Complication Type Ii Or Unspecified Type Not Stated As Uncontrolled 08/21/2011 [place] CAAL DO K 276.8 Hypopotassemia 08/21/2011 250.00 Diabetes Mellitus Without Mention Of Complication Type Ii Or Unspecified Type Not Stated As Uncontrolled 08/21/2011 276.8 Hypopotassemia 08/21/2011 250.00 Diabetes Mellitus Without Mention Of Complication Type Ii Or Unspecified Type Not Stated As Uncontrolled 08/21/2011 276.8 Hypopotassemia 08/21/2011 250.00 Diabetes Mellitus Without Mention Of Complication Type Ii Or Unspecified Type Not Stated As Uncontrolled 08/21/2011 276.8 Hypopotassemia 08/21/2011 CAAL DO, STAN[place]ORD K 250.00 Diabetes Mellitus Without Mention Of Complication Type Ii Or Unspecified Type Not Stated As Uncontrolled 08/21/2011 CAAL DO, ST[place] K 276.8 Hypopotassemia 08/21/2011 CAAL DO, ST[place] K 250.00 Diabetes Mellitus Without Mention Of Complication Type Ii Or Unspecified Type Not Stated As Uncontrolled 08/21/2011 CAAL DO, ST[place] K 276.8 Hypopotassemia 08/21/2011 CAAL DO, ST[place] K 250.00 Diabetes Mellitus Without Mention Of Complication Type Ii Or Unspecified Type Not Stated As Uncontrolled 08/21/2011 CAAL DO, ST[place] K 276.8 Hypopotassemia 08/21/2011 CAAL DO, ST[place] K 250.00 Diabetes Mellitus Without Mention Of Complication Type Ii Or Unspecified Type Not Stated As Uncontrolled 08/21/2011 CAAL DO, ST[place] K 276.8 Hypopotassemia 08/21/2011 CAAL DO, ST[place] K 250.00 Diabetes Mellitus Without Mention Of Complication Type Ii Or Unspecified Type Not Stated As Uncontrolled 08/21/2011 CAAL DO, ST[place] K 276.8 Hypopotassemia 08/21/2011 CAAL DO, ST[place] K 250.00 Diabetes Mellitus Without Mention Of Complication Type Ii Or Unspecified Type Not Stated As Uncontrolled 08/21/2011 CAAL DO, ST[place] K 276.8 Hypopotassemia 08/21/2011 CAAL DO, ST[place] K 250.00 Diabetes Mellitus Without Mention Of Complication Type Ii Or Unspecified Type Not Stated As Uncontrolled 08/21/2011 CAAL DO, ST[place] K 276.8 Hypopotassemia 08/21/2011 GURU TIN FLOPPERJENNLOUIS R 250.00 Diabetes Mellitus Without Mention Of Complication Type Ii Or Unspecified Type Not Stated As Uncontrolled 08/21/2011 GURU TIN FLOPPER [place] R 276.8 Hypopotassemia 08/21/2011 CAAL DO, STAN[place]ORD K 250.00 Diabetes Mellitus Without Mention Of Complication Type Ii Or Unspecified Type Not Stated As Uncontrolled 08/21/2011 CAAL DO, ST[place] K 276.8 Hypopotassemia 08/21/2011 CAAL DO, STAN[place] K 250.00 Diabetes Mellitus Without Mention Of Complication Type Ii Or Unspecified Type Not Stated As Uncontrolled 08/21/2011 [place] CAAL DO K 276.8 Hypopotassemia 08/21/2011 AFUA GARCIACLEMENTINEA K 250.00 Diabetes Mellitus Without Mention Of Complication Type Ii Or Unspecified Type Not Stated As Uncontrolled 08/21/2011 CLEMENTINE CAAL DOA K 276.8 Hypopotassemia 08/21/2011 L[place]IS GARVEY APRN R 250.00 Diabetes Mellitus Without Mention Of Complication Type Ii Or Unspecified Type Not Stated As Uncontrolled 08/21/2011 L[place] GARVEY APRN R 276.8 Hypopotassemia 08/21/2011 [place] CAAL DO K 250.00 Diabetes Mellitus Without Mention Of Complication Type Ii Or Unspecified Type Not Stated As Uncontrolled 08/21/2011 [place] CAAL DO K 276.8 Hypopotassemia 08/21/2011 RUBINA HARLEY APRN 250.00 Diabetes Mellitus Without Mention Of Complication Type Ii Or Unspecified Type Not Stated As Uncontrolled 08/21/2011 RUBINA HARLEY APRN 276.8 Hypopotassemia 08/21/2011 LEO BENITEZ MD 250.00 Diabetes Mellitus Without Mention Of Complication Type Ii Or Unspecified Type Not Stated As Uncontrolled 08/21/2011 LEO BENITEZ MD 276.8 Hypopotassemia 08/21/2011 RUBINA HARLEY APRN 250.00 Diabetes Mellitus Without Mention Of Complication Type Ii Or Unspecified Type Not Stated As Uncontrolled 08/21/2011 RUBINA HARLEY APRN 276.8 Hypopotassemia 08/21/2011 ARISTEO ARAYA APRN 250.00 Diabetes Mellitus Without Mention Of Complication Type Ii Or Unspecified Type Not Stated As Uncontrolled 08/21/2011 ARISTEO ARAYA APRN 276.8 Hypopotassemia 08/21/2011 L[place] GARVEY APRN 250.00 Diabetes Mellitus Without Mention Of Complication Type Ii Or Unspecified Type Not Stated As Uncontrolled 08/21/2011 [place] GARVEY APRN R 276.8 Hypopotassemia 08/25/2011 [place] CAAL DO 790.4 Abnormal Lft (elevated) 08/25/2011 790.4 Abnormal Lft ( elevated) 08/25/2011 790.4 Abnormal Lft ( elevated) 08/25/2011 [place] CAAL DO 790.4 Abnormal Lft (elevated) 08/25/2011 790.4 Abnormal Lft ( elevated) 08/25/2011 CAAL DO, ST[place] K 790.4 Abnormal Lft (elevated) 08/25/2011 CAAL DO, [place] K 790.4 Abnormal Lft (elevated) 08/25/2011 790.4 Abnormal Lft ( elevated) 08/25/2011 790.4 Abnormal Lft ( elevated) 08/25/2011 CAAL DO, [place] K 790.4 Abnormal Lft (elevated) 08/25/2011 790.4 Abnormal Lft ( elevated) 08/25/2011 790.4 Abnormal Lft ( elevated) 08/25/2011 790.4 Abnormal Lft ( elevated) 08/25/2011 CAAL DO, [place] K 790.4 Abnormal Lft (elevated) 08/25/2011 CAAL DO, [place] K 790.4 Abnormal Lft (elevated) 08/25/2011 CAAL DO, [place] K 790.4 Abnormal Lft (elevated) 08/25/2011 CAAL DO, [place] K 790.4 Abnormal Lft (elevated) 08/25/2011 CAAL DO, [place] K 790.4 Abnormal Lft (elevated) 08/25/2011 CAAL DO, [place] K 790.4 Abnormal Lft (elevated) 08/25/2011 CAAL DO, [place] K 790.4 Abnormal Lft (elevated) 08/25/2011 L[place] GARVEY APRN R 790.4 Abnormal Lft (elevated) 08/25/2011 CAAL DO, [place] K 790.4 Abnormal Lft (elevated) 08/25/2011 CAAL DO, [place] K 790.4 Abnormal Lft (elevated) 08/25/2011 CAAL DO, [place] K 790.4 Abnormal Lft (elevated) 08/25/2011 L[place] GARVEY APRN R 790.4 Abnormal Lft (elevated) 08/25/2011 CAAL DO, [place] K 790.4 Abnormal Lft (elevated) 08/25/2011 RUBINA HARLEY APRN 790.4 Abnormal Lft (elevated) 08/25/2011 LEO BENITEZ MD 790.4 Abnormal Lft (elevated) 08/25/2011 RUBINA HARLEY APRN 790.4 Abnormal Lft (elevated) 08/25/2011 ARISTEO ARAYA APRN 790.4 Abnormal Lft (elevated) 08/25/2011 LOUIS GARVEY APRN R 790.4 Abnormal Lft (elevated) 09/03/2011 CAAL DO, STAN[place] K 790.29 Hyperglycemia 09/03/2011 790.29 Hyperglycemia 09/03/2011 790.29 Hyperglycemia 09/03/2011 CAAL DO, STAN[place] K 790.29 Hyperglycemia 09/03/2011 790.29 Hyperglycemia 09/03/2011 CAAL DO, ST[place] K 790.29 Hyperglycemia 09/03/2011 CAAL DO, ST[place] K 790.29 Hyperglycemia 09/03/2011 790.29 Hyperglycemia 09/03/2011 790.29 Hyperglycemia 09/03/2011 CAAL DO, ST[place] K 790.29 Hyperglycemia 09/03/2011 790.29 Hyperglycemia 09/03/2011 790.29 Hyperglycemia 09/03/2011 790.29 Hyperglycemia 09/03/2011 CAAL DO, ST[place] K 790.29 Hyperglycemia 09/03/2011 CAAL DO, ST[place] K 790.29 Hyperglycemia 09/03/2011 CAAL DO, ST[place] K 790.29 Hyperglycemia 09/03/2011 CAAL DO, ST[place] K 790.29 Hyperglycemia 09/03/2011 CAAL DO, ST[place] K 790.29 Hyperglycemia 09/03/2011 CAAL DO, ST[place] K 790.29 Hyperglycemia 09/03/2011 CAAL DO, ST[place] K 790.29 Hyperglycemia 09/03/2011 LOUIS GARVEY APRN R 790.29 Hyperglycemia 09/03/2011 CAAL DO, [place] K 790.29 Hyperglycemia 09/03/2011 CAAL DO, ST[place] K 790.29 Hyperglycemia 09/03/2011 CAAL DO, [place] K 790.29 Hyperglycemia 09/03/2011 LOUIS GARVEY APRN R 790.29 Hyperglycemia 09/03/2011 CAAL DO, [place] K 790.29 Hyperglycemia 09/03/2011 RUBINA HARLEY APRN 790.29 Hyperglycemia 09/03/2011 LEO BENITEZ MD 790.29 Hyperglycemia 09/03/2011 RUBINA HARLEY APRN 790.29 Hyperglycemia 09/03/2011 ARISTEO ARAYA APRN 790.29 Hyperglycemia 09/03/2011 LOUIS GARVEY APRN R 790.29 Hyperglycemia 10/23/2011 CAAL DO, [place] K 558.9 Other And Unspecified Noninfectious Gastroenteritis And Colitis 10/23/2011 558.9 Other And Unspecified Noninfectious Gastroenteritis And Colitis 10/23/2011 558.9 Other And Unspecified Noninfectious Gastroenteritis And Colitis 10/23/2011 CAAL DO, ST[place] K 558.9 Other And Unspecified Noninfectious Gastroenteritis And Colitis 10/23/2011 558.9 Other And Unspecified Noninfectious Gastroenteritis And Colitis 10/23/2011 CAAL DO STAN[place]ORD K 558.9 Other And Unspecified Noninfectious Gastroenteritis And Colitis 10/23/2011 CAAL DO, STANFORD K 558.9 Other And Unspecified Noninfectious Gastroenteritis And Colitis 10/23/2011 558.9 Other And Unspecified Noninfectious Gastroenteritis And Colitis 10/23/2011 558.9 Other And Unspecified Noninfectious Gastroenteritis And Colitis 10/23/2011 CAAL DO STAN[place]ORD K 558.9 Other And Unspecified Noninfectious Gastroenteritis And Colitis 10/23/2011 558.9 Other And Unspecified Noninfectious Gastroenteritis And Colitis 10/23/2011 558.9 Other And Unspecified Noninfectious Gastroenteritis And Colitis 10/23/2011 558.9 Other And Unspecified Noninfectious Gastroenteritis And Colitis 10/23/2011 CAAL DO, STANFORD K 558.9 Other And Unspecified Noninfectious Gastroenteritis And Colitis 10/23/2011 CAAL DO, STANFORD K 558.9 Other And Unspecified Noninfectious Gastroenteritis And Colitis 10/23/2011 CAAL DO, STANFORD K 558.9 Other And Unspecified Noninfectious Gastroenteritis And Colitis 10/23/2011 CAAL DO STAN[place]ORD K 558.9 Other And Unspecified Noninfectious Gastroenteritis And Colitis 10/23/2011 CAAL DO, STANFORD K 558.9 Other And Unspecified Noninfectious Gastroenteritis And Colitis 10/23/2011 CAAL DO, STANFORD K 558.9 Other And Unspecified Noninfectious Gastroenteritis And Colitis 10/23/2011 CAAL DO, STANFORD K 558.9 Other And Unspecified Noninfectious Gastroenteritis And Colitis 10/23/2011 LOUIS GARVEY APRN 558.9 Other And Unspecified Noninfectious Gastroenteritis And Colitis 10/23/2011 CAAL DO, STANFORD K 558.9 Other And Unspecified Noninfectious Gastroenteritis And Colitis 10/23/2011 CAAL DO, STANFORD K 558.9 Other And Unspecified Noninfectious Gastroenteritis And Colitis 10/23/2011 CAAL DO, STANFORD K 558.9 Other And Unspecified Noninfectious Gastroenteritis And Colitis 10/23/2011 LOUIS GARVEY APRN 558.9 Other And Unspecified Noninfectious Gastroenteritis And Colitis 10/23/2011 CAAL DO STAN[place]ORD K 558.9 Other And Unspecified Noninfectious Gastroenteritis And Colitis 10/23/2011 RUBINA HARLEY APRN 558.9 Other And Unspecified Noninfectious Gastroenteritis And Colitis 10/23/2011 LEO BENITEZ MD 558.9 Other And Unspecified Noninfectious Gastroenteritis And Colitis 10/23/2011 RUBINA HARLEY APRN 558.9 Other And Unspecified Noninfectious Gastroenteritis And Colitis 10/23/2011 ARISTEO ARAYA APRN 558.9 Other And Unspecified Noninfectious Gastroenteritis And Colitis 10/23/2011 LOUIS GARVEY APRN R 558.9 Other And Unspecified Noninfectious Gastroenteritis And Colitis 11/04/2011 CAAL DO [place] K 789.00 ABDOMINAL PAIN UNSPECIFIED SITE 11/04/2011 789.00 ABDOMINAL PAIN UNSPECIFIED SITE 11/04/2011 789.00 ABDOMINAL PAIN UNSPECIFIED SITE 11/04/2011 CAAL DO, [place] K 789.00 Abdominal Pain Unspecified Site 11/04/2011 789.00 Abdominal Pain Unspecified Site 11/04/2011 CAAL DO, [place] K 789.00 Abdominal Pain Unspecified Site 11/04/2011 CAAL DO [place] K 789.00 Abdominal Pain Unspecified Site 11/04/2011 789.00 Abdominal Pain Unspecified Site 11/04/2011 789.00 Abdominal Pain Unspecified Site 11/04/2011 CAAL DO, [place] K 789.00 Abdominal Pain Unspecified Site 11/04/2011 789.00 Abdominal Pain Unspecified Site 11/04/2011 789.00 Abdominal Pain Unspecified Site 11/04/2011 789.00 Abdominal Pain Unspecified Site 11/04/2011 CAAL DO, [place] K 789.00 Abdominal Pain Unspecified Site 11/04/2011 CAAL DO, [place] K 789.00 Abdominal Pain Unspecified Site 11/04/2011 CAAL DO [place] K 789.00 Abdominal Pain Unspecified Site 11/04/2011 CAAL DO, [place] K 789.00 Abdominal Pain Unspecified Site 11/04/2011 CAAL DO, [place] K 789.00 Abdominal Pain Unspecified Site 11/04/2011 CAAL DO, [place] K 789.00 Abdominal Pain Unspecified Site 11/04/2011 CAAL DO, [place] K 789.00 Abdominal Pain Unspecified Site 11/04/2011 LOUIS GARVEY APRN R 789.00 Abdominal Pain Unspecified Site 11/04/2011 CAAL DO, [place] K 789.00 Abdominal Pain Unspecified Site 11/04/2011 CAAL DO, [place] K 789.00 Abdominal Pain Unspecified Site 11/04/2011 CAAL DO, [place] K 789.00 Abdominal Pain Unspecified Site 11/04/2011 LOUIS GARVEY APRN 789.00 Abdominal Pain Unspecified Site 11/04/2011 CAAL DO, [place] K 789.00 Abdominal Pain Unspecified Site 11/04/2011 RUBINA HARLEY APRN 789.00 Abdominal Pain Unspecified Site 11/04/2011 LEO BENITEZ MD 789.00 Abdominal Pain Unspecified Site 11/04/2011 RUBINA HARLEY APRN 789.00 Abdominal Pain Unspecified Site 11/04/2011 ARISTEO ARAYA APRN 789.00 Abdominal Pain Unspecified Site 11/04/2011 LOUIS GARVEY APRN R 789.00 Abdominal Pain Unspecified Site 12/18/2011 CAAL DO, [place] K 553.3 DIAPHRAGMATIC HERNIA WITHOUT OBSTRUCTION OR GANGRENE 12/18/2011 CAAL DO, [place] K 787.01 NAUSEA WITH VOMITING 12/18/2011 553.3 DIAPHRAGMATIC HERNIA WITHOUT OBSTRUCTION OR GANGRENE 12/18/2011 787.01 NAUSEA WITH VOMITING 12/18/2011 553.3 DIAPHRAGMATIC HERNIA WITHOUT OBSTRUCTION OR GANGRENE 12/18/2011 787.01 NAUSEA WITH VOMITING 12/18/2011 CAAL DO, [place] K 553.3 DIAPHRAGMATIC HERNIA WITHOUT OBSTRUCTION OR GANGRENE 12/18/2011 CAAL DO, [place] K 787.01 NAUSEA WITH VOMITING 12/18/2011 553.3 DIAPHRAGMATIC HERNIA WITHOUT OBSTRUCTION OR GANGRENE 12/18/2011 787.01 Nausea With Vomiting 12/18/2011 CAAL DO, [place] K 553.3 DIAPHRAGMATIC HERNIA WITHOUT OBSTRUCTION OR GANGRENE 12/18/2011 CAAL DO, [place] K 787.01 Nausea With Vomiting 12/18/2011 CAAL DO, [place] K 553.3 DIAPHRAGMATIC HERNIA WITHOUT OBSTRUCTION OR GANGRENE 12/18/2011 CAAL DO, [place] K 787.01 Nausea With Vomiting 12/18/2011 553.3 DIAPHRAGMATIC HERNIA WITHOUT OBSTRUCTION OR GANGRENE 12/18/2011 787.01 Nausea With Vomiting 12/18/2011 553.3 DIAPHRAGMATIC HERNIA WITHOUT OBSTRUCTION OR GANGRENE 12/18/2011 787.01 Nausea With Vomiting 12/18/2011 CAAL DO, [place] K 553.3 DIAPHRAGMATIC HERNIA WITHOUT OBSTRUCTION OR GANGRENE 12/18/2011 CAAL DO, [place] K 787.01 Nausea With Vomiting 12/18/2011 553.3 DIAPHRAGMATIC HERNIA WITHOUT OBSTRUCTION OR GANGRENE 12/18/2011 787.01 Nausea With Vomiting 12/18/2011 553.3 DIAPHRAGMATIC HERNIA WITHOUT OBSTRUCTION OR GANGRENE 12/18/2011 787.01 Nausea With Vomiting 12/18/2011 553.3 DIAPHRAGMATIC HERNIA WITHOUT OBSTRUCTION OR GANGRENE 12/18/2011 787.01 Nausea With Vomiting 12/18/2011 CAAL DO, [place] K 553.3 DIAPHRAGMATIC HERNIA WITHOUT OBSTRUCTION OR GANGRENE 12/18/2011 CAAL DO, [place] K 787.01 Nausea With Vomiting 12/18/2011 CAAL DO, [place] K 553.3 DIAPHRAGMATIC HERNIA WITHOUT OBSTRUCTION OR GANGRENE 12/18/2011 CAAL DO, [place] K 787.01 Nausea With Vomiting 12/18/2011 CAAL DO, [place] K 553.3 DIAPHRAGMATIC HERNIA WITHOUT OBSTRUCTION OR GANGRENE 12/18/2011 CAAL DO, [place] K 787.01 Nausea With Vomiting 12/18/2011 CAAL DO, [place] K 553.3 DIAPHRAGMATIC HERNIA WITHOUT OBSTRUCTION OR GANGRENE 12/18/2011 CAAL DO, [place] K 787.01 Nausea With Vomiting 12/18/2011 CAAL DO, [place] K 553.3 DIAPHRAGMATIC HERNIA WITHOUT OBSTRUCTION OR GANGRENE 12/18/2011 CAAL DO, [place] K 787.01 Nausea With Vomiting 12/18/2011 CAAL DO, [place] K 553.3 DIAPHRAGMATIC HERNIA WITHOUT OBSTRUCTION OR GANGRENE 12/18/2011 CAAL DO, [place] K 787.01 Nausea With Vomiting 12/18/2011 CAAL DO, [place] K 553.3 DIAPHRAGMATIC HERNIA WITHOUT OBSTRUCTION OR GANGRENE 12/18/2011 CAAL DO, [place] K 787.01 Nausea With Vomiting 12/18/2011 LOUIS GARVEY APRN R 553.3 DIAPHRAGMATIC HERNIA WITHOUT OBSTRUCTION OR GANGRENE 12/18/2011 JENN GARVEY APRNINA R 787.01 Nausea With Vomiting 12/18/2011 CAAL DO, [place] K 553.3 DIAPHRAGMATIC HERNIA WITHOUT OBSTRUCTION OR GANGRENE 12/18/2011 CAAL DO, [place] K 787.01 Nausea With Vomiting 12/18/2011 CAAL DO, [place] K 553.3 DIAPHRAGMATIC HERNIA WITHOUT OBSTRUCTION OR GANGRENE 12/18/2011 CAAL DO, [place] K 787.01 Nausea With Vomiting 12/18/2011 CAAL DO, [place] K 553.3 DIAPHRAGMATIC HERNIA WITHOUT OBSTRUCTION OR GANGRENE 12/18/2011 CAAL DO, [place] K 787.01 Nausea With Vomiting 12/18/2011 LOUIS GARVEY APRN R 553.3 DIAPHRAGMATIC HERNIA WITHOUT OBSTRUCTION OR GANGRENE 12/18/2011 LOUIS GARVEY APRN R 787.01 Nausea With Vomiting 12/18/2011 CAAL DO, [place] K 553.3 DIAPHRAGMATIC HERNIA WITHOUT OBSTRUCTION OR GANGRENE 12/18/2011 CAAL DO [place] K 787.01 Nausea With Vomiting 12/18/2011 RUBINA HARLEY APRN 553.3 DIAPHRAGMATIC HERNIA WITHOUT OBSTRUCTION OR GANGRENE 12/18/2011 RUBINA HARLEY APRN 787.01 Nausea With Vomiting 12/18/2011 LEO BENITEZ MD 553.3 DIAPHRAGMATIC HERNIA WITHOUT OBSTRUCTION OR GANGRENE 12/18/2011 LEO BENITEZ MD 787.01 Nausea With Vomiting 12/18/2011 RUBINA HARLEY APRN 553.3 DIAPHRAGMATIC HERNIA WITHOUT OBSTRUCTION OR GANGRENE 12/18/2011 RUBINA HARLEY APRN 787.01 Nausea With Vomiting 12/18/2011 ARISTEO ARAYA APRN 553.3 DIAPHRAGMATIC HERNIA WITHOUT OBSTRUCTION OR GANGRENE 12/18/2011 ARISTEO ARAYA APRN 787.01 Nausea With Vomiting 12/18/2011 LOUIS GARVEY APRN R 553.3 DIAPHRAGMATIC HERNIA WITHOUT OBSTRUCTION OR GANGRENE 12/18/2011 LOUIS GARVEY APRN R 787.01 Nausea With Vomiting 01/05/2012 CLEMENTINE CAAL DOA K 787.02 NAUSEA ALONE 01/05/2012 [place] CAAL DO 787.1 HEARTBURN 01/05/2012 [place] CAAL DO 789.01 ABDOMINAL PAIN RIGHT UPPER QUADRANT 01/05/2012 [place] CAAL DO 789.06 ABDOMINAL PAIN EPIGASTRIC 01/05/2012 787.02 NAUSEA ALONE 01/05/2012 787.1 HEARTBURN 01/05/2012 789.01 ABDOMINAL PAIN RIGHT UPPER QUADRANT 01/05/2012 789.06 ABDOMINAL PAIN EPIGASTRIC 01/05/2012 787.02 NAUSEA ALONE 01/05/2012 787.1 HEARTBURN 01/05/2012 789.01 ABDOMINAL PAIN RIGHT UPPER QUADRANT 01/05/2012 789.06 ABDOMINAL PAIN EPIGASTRIC 01/05/2012 [place] CAAL DO 787.02 Nausea Alone 01/05/2012 [place] CAAL DO 787.1 HEARTBURN 01/05/2012 [place] CAAL DO 789.01 ABDOMINAL PAIN RIGHT UPPER QUADRANT 01/05/2012 [place] CAAL DO 789.06 ABDOMINAL PAIN EPIGASTRIC 01/05/2012 787.02 Nausea Alone 01/05/2012 787.1 Heartburn 01/05/2012 789.01 Abdominal Pain Right Upper Quadrant 01/05/2012 789.06 Abdominal Pain Epigastric 01/05/2012 [place] CAAL DO 787.02 Nausea Alone 01/05/2012 [place] CAAL DO 787.1 Heartburn 01/05/2012 [place] CAAL DO 789.01 Abdominal Pain Right Upper Quadrant 01/05/2012 [place] CAAL DO 789.06 Abdominal Pain Epigastric 01/05/2012 [place] CAAL DO 787.02 Nausea Alone 01/05/2012 [place] CAAL DO K 787.1 Heartburn 01/05/2012 [place] CAAL DO K 789.01 Abdominal Pain Right Upper Quadrant 01/05/2012 [place] CAAL DO 789.06 Abdominal Pain Epigastric 01/05/2012 787.02 Nausea Alone 01/05/2012 787.1 Heartburn 01/05/2012 789.01 Abdominal Pain Right Upper Quadrant 01/05/2012 789.06 Abdominal Pain Epigastric 01/05/2012 787.02 Nausea Alone 01/05/2012 787.1 Heartburn 01/05/2012 789.01 Abdominal Pain Right Upper Quadrant 01/05/2012 789.06 Abdominal Pain Epigastric 01/05/2012 CAAL DO, [place] K 787.02 Nausea Alone 01/05/2012 CAAL DO, [place] K 787.1 Heartburn 01/05/2012 CAAL DO, [place] K 789.01 Abdominal Pain Right Upper Quadrant 01/05/2012 CAAL DO, [place] K 789.06 Abdominal Pain Epigastric 01/05/2012 787.02 Nausea Alone 01/05/2012 787.1 Heartburn 01/05/2012 789.01 Abdominal Pain Right Upper Quadrant 01/05/2012 789.06 Abdominal Pain Epigastric 01/05/2012 787.02 Nausea Alone 01/05/2012 787.1 Heartburn 01/05/2012 789.01 Abdominal Pain Right Upper Quadrant 01/05/2012 789.06 Abdominal Pain Epigastric 01/05/2012 787.02 Nausea Alone 01/05/2012 787.1 Heartburn 01/05/2012 789.01 Abdominal Pain Right Upper Quadrant 01/05/2012 789.06 Abdominal Pain Epigastric 01/05/2012 CAAL DO, [place] K 787.02 Nausea Alone 01/05/2012 CAAL DO, [place] K 787.1 Heartburn 01/05/2012 CAAL DO, [place] K 789.01 Abdominal Pain Right Upper Quadrant 01/05/2012 CAAL DO, [place] K 789.06 Abdominal Pain Epigastric 01/05/2012 CAAL DO, STANFOD[place] K 787.02 Nausea Alone 01/05/2012 CAAL DO, [place] K 787.1 Heartburn 01/05/2012 CAAL DO, [place] K 789.01 Abdominal Pain Right Upper Quadrant 01/05/2012 CAAL DO, [place] K 789.06 Abdominal Pain Epigastric 01/05/2012 CAAL DO, [place] K 787.02 Nausea Alone 01/05/2012 CAAL DO, [place] K 787.1 Heartburn 01/05/2012 CAAL DO, [place] K 789.01 Abdominal Pain Right Upper Quadrant 01/05/2012 CAAL DO, [place] K 789.06 Abdominal Pain Epigastric 01/05/2012 CAAL DO, [place] K 787.02 Nausea Alone 01/05/2012 CAAL DO, [place] K 787.1 Heartburn 01/05/2012 CAAL DO, [place] K 789.01 Abdominal Pain Right Upper Quadrant 01/05/2012 CAAL DO, [place] K 789.06 Abdominal Pain Epigastric 01/05/2012 CAAL DO, [place] K 787.02 Nausea Alone 01/05/2012 CAAL DO, [place] K 787.1 Heartburn 01/05/2012 CAAL DO, [place] K 789.01 Abdominal Pain Right Upper Quadrant 01/05/2012 CAAL DO, [place] K 789.06 Abdominal Pain Epigastric 01/05/2012 CAAL DO, [place] K 787.02 Nausea Alone 01/05/2012 CAAL DO, [place] K 787.1 Heartburn 01/05/2012 CAAL DO, [place] K 789.01 Abdominal Pain Right Upper Quadrant 01/05/2012 CAAL DO, [place] K 789.06 Abdominal Pain Epigastric 01/05/2012 CAAL DO, [place] K 787.02 Nausea Alone 01/05/2012 CAAL DO, [place] K 787.1 Heartburn 01/05/2012 CAAL DO, [place] K 789.01 Abdominal Pain Right Upper Quadrant 01/05/2012 CAAL DO, [place] K 789.06 Abdominal Pain Epigastric 01/05/2012 GURU QUEZADA, LOU[place] R 787.02 Nausea Alone 01/05/2012 GURU QUEZADA, [place] R 787.1 Heartburn 01/05/2012 GURU QUEZADA [place] R 789.01 Abdominal Pain Right Upper Quadrant 01/05/2012 GURU QUEZADA [place] R 789.06 Abdominal Pain Epigastric 01/05/2012 CAAL DO, [place] K 787.02 Nausea Alone 01/05/2012 CAAL DO, [place] K 787.1 Heartburn 01/05/2012 CAAL DO, [place] K 789.01 Abdominal Pain Right Upper Quadrant 01/05/2012 CAAL DO, [place] K 789.06 Abdominal Pain Epigastric 01/05/2012 CAAL DO, [place] K 787.02 Nausea Alone 01/05/2012 CAAL DO, [place] K 787.1 Heartburn 01/05/2012 CAAL DO, [place] K 789.01 Abdominal Pain Right Upper Quadrant 01/05/2012 CAAL DO, [place] K 789.06 Abdominal Pain Epigastric 01/05/2012 CAAL DO, [place] K 787.02 Nausea Alone 01/05/2012 CAAL DO, [place] K 787.1 Heartburn 01/05/2012 CAAL DO, [place] K 789.01 Abdominal Pain Right Upper Quadrant 01/05/2012 CAAL DO, [place] K 789.06 Abdominal Pain Epigastric 01/05/2012 GURU TIN FLOPPER, [place] R 787.02 Nausea Alone 01/05/2012 GURU TIN FLOPPER, [place] R 787.1 Heartburn 01/05/2012 GURU QUEZADA [place] R 789.01 Abdominal Pain Right Upper Quadrant 01/05/2012 GURU TIN FLOPPER, [place] R 789.06 Abdominal Pain Epigastric 01/05/2012 CAAL DO, [place] K 787.02 Nausea Alone 01/05/2012 CAAL DO, [place] K 787.1 Heartburn 01/05/2012 CAAL DO, [place] K 789.01 Abdominal Pain Right Upper Quadrant 01/05/2012 CAAL DO, [place] K 789.06 Abdominal Pain Epigastric 01/05/2012 RUBINA HARLEY APRN 787.02 Nausea Alone 01/05/2012 RUBINA HARLEY APRN 787.1 Heartburn 01/05/2012 RUBINA HARLEY APRN 789.01 Abdominal Pain Right Upper Quadrant 01/05/2012 RUBINA HARLEY APRN 789.06 Abdominal Pain Epigastric 01/05/2012 LEO BENITEZ MD 787.02 Nausea Alone 01/05/2012 LEO BENITEZ MD 787.1 Heartburn 01/05/2012 LEO BENITEZ MD 789.01 Abdominal Pain Right Upper Quadrant 01/05/2012 LEO BENITEZ MD 789.06 Abdominal Pain Epigastric 01/05/2012 RUBINA HARLEY APRN 787.02 Nausea Alone 01/05/2012 RUBINA HARLEY APRN 787.1 Heartburn 01/05/2012 RUBINA HARLEY APRN 789.01 Abdominal Pain Right Upper Quadrant 01/05/2012 RUBINA HARLEY APRN 789.06 Abdominal Pain Epigastric 01/05/2012 ARISTEO ARAYA APRN 787.02 Nausea Alone 01/05/2012 ARISTEO ARAYA APRN 787.1 Heartburn 01/05/2012 ARISTEO ARAYA APRN 789.01 Abdominal Pain Right Upper Quadrant 01/05/2012 MARSHAL TIN FLOPPER, ARISTEO T 789.06 Abdominal Pain Epigastric 01/05/2012 GURU TIN FLOPPER, [place] R 787.02 Nausea Alone 01/05/2012 GURU BLEVINSN, [place] R 787.1 Heartburn 01/05/2012 GURU BLEVINSN, [place] R 789.01 Abdominal Pain Right Upper Quadrant 01/05/2012 GURU BLEVINSN, [place] R 789.06 Abdominal Pain Epigastric 03/18/2012 CAAL DO, [place] K 782.0 DISTURBANCE OF SKIN SENSATION 03/18/2012 782.0 DISTURBANCE OF SKIN SENSATION 03/18/2012 782.0 DISTURBANCE OF SKIN SENSATION 03/18/2012 CAAL DO, [place] K 782.0 Disturbance Of Skin Sensation 03/18/2012 782.0 Disturbance Of Skin Sensation 03/18/2012 CAAL DO, [place] K 782.0 Disturbance Of Skin Sensation 03/18/2012 CAAL DO, [place] K 782.0 Disturbance Of Skin Sensation 03/18/2012 782.0 Disturbance Of Skin Sensation 03/18/2012 782.0 Disturbance Of Skin Sensation 03/18/2012 CAAL DO, [place] K 782.0 Disturbance Of Skin Sensation 03/18/2012 782.0 Disturbance Of Skin Sensation 03/18/2012 782.0 Disturbance Of Skin Sensation 03/18/2012 782.0 Disturbance Of Skin Sensation 03/18/2012 CAAL DO, [place] K 782.0 Disturbance Of Skin Sensation 03/18/2012 CAAL DO, [place] K 782.0 Disturbance Of Skin Sensation 03/18/2012 CAAL DO, [place] K 782.0 Disturbance Of Skin Sensation 03/18/2012 CAAL DO, [place] K 782.0 Disturbance Of Skin Sensation 03/18/2012 CAAL DO, [place] K 782.0 Disturbance Of Skin Sensation 03/18/2012 CAAL DO, [place] K 782.0 Disturbance Of Skin Sensation 03/18/2012 CAAL DO, [place] K 782.0 Disturbance Of Skin Sensation 03/18/2012 JENN GARVEY APRNINA R 782.0 Disturbance Of Skin Sensation 03/18/2012 CAAL DO, [place] K 782.0 Disturbance Of Skin Sensation 03/18/2012 CAAL DO, [place] K 782.0 Disturbance Of Skin Sensation 03/18/2012 CAAL DO, [place] K 782.0 Disturbance Of Skin Sensation 03/18/2012 LOUIS GARVEY APRN R 782.0 Disturbance Of Skin Sensation 03/18/2012 CAAL DO, [place] K 782.0 Disturbance Of Skin Sensation 03/18/2012 RUBINA HARLEY APRN 782.0 Disturbance Of Skin Sensation 03/18/2012 LEO BENITEZ MD 782.0 Disturbance Of Skin Sensation 03/18/2012 RUBINA HARLEY APRN 782.0 Disturbance Of Skin Sensation 03/18/2012 ARISTEO ARAYA APRN 782.0 Disturbance Of Skin Sensation 03/18/2012 LOUIS GARVEY APRN R 782.0 Disturbance Of Skin Sensation 04/24/2012 CAAL DO, [place] K 466.0 BRONCHITIS, ACUTE 04/24/2012 CAAL DO, [place] K 786.07 WHEEZING 04/24/2012 CAAL DO, [place] K 786.2 COUGH 04/24/2012 466.0 BRONCHITIS, ACUTE 04/24/2012 786.07 WHEEZING 04/24/2012 786.2 COUGH 04/24/2012 466.0 BRONCHITIS, ACUTE 04/24/2012 786.07 WHEEZING 04/24/2012 786.2 COUGH 04/24/2012 CAAL DO, [place] K 466.0 Bronchitis, Acute 04/24/2012 CAAL DO, [place] K 786.07 Wheezing 04/24/2012 CAAL DO, [place] K 786.2 Cough 04/24/2012 466.0 Bronchitis, Acute 04/24/2012 786.07 Wheezing 04/24/2012 786.2 Cough 04/24/2012 CAAL DO, [place] K 466.0 Bronchitis, Acute 04/24/2012 CAAL DO, [place] K 786.07 Wheezing 04/24/2012 CAAL DO, [place] K 786.2 Cough 04/24/2012 CAAL DO, [place] K 466.0 Bronchitis, Acute 04/24/2012 CAAL DO, [place] K 786.07 Wheezing 04/24/2012 CAAL DO, [place] K 786.2 Cough 04/24/2012 466.0 Bronchitis, Acute 04/24/2012 786.07 Wheezing 04/24/2012 786.2 Cough 04/24/2012 466.0 Bronchitis, Acute 04/24/2012 786.07 Wheezing 04/24/2012 786.2 Cough 04/24/2012 CAAL DO, [place] K 466.0 Bronchitis, Acute 04/24/2012 CAAL DO, [place] K 786.07 Wheezing 04/24/2012 CAAL DO, [place] K 786.2 Cough 04/24/2012 466.0 Bronchitis, Acute 04/24/2012 786.07 Wheezing 04/24/2012 786.2 Cough 04/24/2012 466.0 Bronchitis, Acute 04/24/2012 786.07 Wheezing 04/24/2012 786.2 Cough 04/24/2012 466.0 Bronchitis, Acute 04/24/2012 786.07 Wheezing 04/24/2012 786.2 Cough 04/24/2012 CAAL DO, [place] K 466.0 Bronchitis, Acute 04/24/2012 CAAL DO, [place] K 786.07 Wheezing 04/24/2012 CAAL DO, [place] K 786.2 Cough 04/24/2012 CAAL DO, [place] K 466.0 Bronchitis, Acute 04/24/2012 CAAL DO, [place] K 786.07 Wheezing 04/24/2012 CAAL DO, [place] K 786.2 Cough 04/24/2012 CAAL DO, [place] K 466.0 Bronchitis, Acute 04/24/2012 CAAL DO, [place] K 786.07 Wheezing 04/24/2012 CAAL DO, [place] K 786.2 Cough 04/24/2012 CAAL DO, [place] K 466.0 Bronchitis, Acute 04/24/2012 CAAL DO, [place] K 786.07 Wheezing 04/24/2012 CAAL DO, [place] K 786.2 Cough 04/24/2012 CAAL DO, [place] K 466.0 Bronchitis, Acute 04/24/2012 CAAL DO, [place] K 786.07 Wheezing 04/24/2012 CAAL DO, [place] K 786.2 Cough 04/24/2012 CAAL DO, [place] K 466.0 Bronchitis, Acute 04/24/2012 CAAL DO, [place] K 786.07 Wheezing 04/24/2012 CAAL DO, [place] K 786.2 Cough 04/24/2012 CAAL DO, [place] K 466.0 Bronchitis, Acute 04/24/2012 CAAL DO, [place] K 786.07 Wheezing 04/24/2012 CAAL DO, [place] K 786.2 Cough 04/24/2012 GURU TIN FLOPPER, [place] R 466.0 Bronchitis, Acute 04/24/2012 GURU TIN FLOPPER, [place] R 786.07 Wheezing 04/24/2012 GURU TIN FLOPPER, [place] R 786.2 Cough 04/24/2012 CAAL DO, [place] K 466.0 Bronchitis, Acute 04/24/2012 CAAL DO, [place] K 786.07 Wheezing 04/24/2012 CAAL DO, [place] K 786.2 Cough 04/24/2012 CAAL DO, [place] K 466.0 Bronchitis, Acute 04/24/2012 CAAL DO, [place] K 786.07 Wheezing 04/24/2012 CAAL DO, [place] K 786.2 Cough 04/24/2012 ACAL DO, [place] K 466.0 Bronchitis, Acute 04/24/2012 CAAL DO, [place] K 786.07 Wheezing 04/24/2012 CAAL DO, [place] K 786.2 Cough 04/24/2012 GURU TIN FLOPPER, [place] R 466.0 Bronchitis, Acute 04/24/2012 GURU TIN FLOPPER, [place] R 786.07 Wheezing 04/24/2012 GURU TIN FLOPPER, [place] R 786.2 Cough 04/24/2012 CAAL DO, [place] K 466.0 Bronchitis, Acute 04/24/2012 CAAL DO, [place] K 786.07 Wheezing 04/24/2012 CAAL DO, [place] K 786.2 Cough 04/24/2012 RUBINA HARLEY APRN 466.0 Bronchitis, Acute 04/24/2012 RUBINA HARLEY APRN 786.07 Wheezing 04/24/2012 RUBINA HARLEY APRN 786.2 Cough 04/24/2012 LEO BENITEZ MD 466.0 Bronchitis, Acute 04/24/2012 LEO BENITEZ MD 786.07 Wheezing 04/24/2012 LEO BENITEZ MD 786.2 Cough 04/24/2012 RUBINA HARLEY APRN 466.0 Bronchitis, Acute 04/24/2012 RUBINA HARLEY APRN 786.07 Wheezing 04/24/2012 RUBINA HARLEY APRN 786.2 Cough 04/24/2012 ARISTEO ARAYA APRN 466.0 Bronchitis, Acute 04/24/2012 MARSHAL QUEZADA ARISTEO T 786.07 Wheezing 04/24/2012 MARSHAL QUEZADA ARISTEO T 786.2 Cough 04/24/2012 GURU TIN FLOPPER, [place] R 466.0 Bronchitis, Acute 04/24/2012 GURU TIN FLOPPER, [place] R 786.07 Wheezing 04/24/2012 GURU TIN FLOPPER, [place] R 786.2 Cough 05/01/2012 CAAL DO, [place] K 719.46 PAIN IN JOINT INVOLVING LOWER LEG 05/01/2012 719.46 PAIN IN JOINT INVOLVING LOWER LEG 05/01/2012 719.46 PAIN IN JOINT INVOLVING LOWER LEG 05/01/2012 CAAL DO, [place] K 719.46 PAIN IN JOINT INVOLVING LOWER LEG 05/01/2012 719.46 Pain In Joint Involving Lower Leg 05/01/2012 CAAL DO, [place] K 719.46 Pain In Joint Involving Lower Leg 05/01/2012 CAAL DO, [place] K 719.46 Pain In Joint Involving Lower Leg 05/01/2012 719.46 Pain In Joint Involving Lower Leg 05/01/2012 719.46 Pain In Joint Involving Lower Leg 05/01/2012 CAAL DO, [place] K 719.46 Pain In Joint Involving Lower Leg 05/01/2012 719.46 Pain In Joint Involving Lower Leg 05/01/2012 719.46 Pain In Joint Involving Lower Leg 05/01/2012 719.46 Pain In Joint Involving Lower Leg 05/01/2012 CAAL DO, [place] K 719.46 Pain In Joint Involving Lower Leg 05/01/2012 CAAL DO, [place] K 719.46 Pain In Joint Involving Lower Leg 05/01/2012 CAAL DO, [place] K 719.46 Pain In Joint Involving Lower Leg 05/01/2012 CAAL DO, [place] K 719.46 Pain In Joint Involving Lower Leg 05/01/2012 CAAL DO, [place] K 719.46 Pain In Joint Involving Lower Leg 05/01/2012 CAAL DO, [place] K 719.46 Pain In Joint Involving Lower Leg 05/01/2012 CAAL DO, [place] K 719.46 Pain In Joint Involving Lower Leg 05/01/2012 LOUIS GARVEY APRN 719.46 Pain In Joint Involving Lower Leg 05/01/2012 CAAL DO, STANFORD K 719.46 Pain In Joint Involving Lower Leg 05/01/2012 CAAL DO, STANFORD K 719.46 Pain In Joint Involving Lower Leg 05/01/2012 CAAL DO, STANFORD K 719.46 Pain In Joint Involving Lower Leg 05/01/2012 LOUIS GARVEY APRN 719.46 Pain In Joint Involving Lower Leg 05/01/2012 CAAL DO, STANFORD K 719.46 Pain In Joint Involving Lower Leg 05/01/2012 RUBINA HARLEY APRN 719.46 Pain In Joint Involving Lower Leg 05/01/2012 LEO BENITEZ MD 719.46 Pain In Joint Involving Lower Leg 05/01/2012 RUBINA HARLEY APRN 719.46 Pain In Joint Involving Lower Leg 05/01/2012 ARISTEO ARAYA APRN 719.46 Pain In Joint Involving Lower Leg 05/01/2012 LOUIS GARVEY APRN 719.46 Pain In Joint Involving Lower Leg 07/01/2012 724.5 BACKACHE 07/01/2012 CAAL DO, STANFORD K 724.5 BACKACHE 07/01/2012 724.5 BACKACHE 07/01/2012 CAAL DO, STANFORD K 724.5 BACKACHE 07/01/2012 CAAL DO, STANFORD K 724.5 BACKACHE 07/01/2012 724.5 BACKACHE 07/01/2012 724.5 BACKACHE 07/01/2012 CAAL DO, STANFORD K 724.5 BACKACHE 07/01/2012 724.5 BACKACHE 07/01/2012 724.5 BACKACHE 07/01/2012 724.5 BACKACHE 07/01/2012 CAAL DO, STANFORD K 724.5 BACKACHE 07/01/2012 CAAL DO, STANFORD K 724.5 BACKACHE 07/01/2012 CAAL DO, STANFORD K 724.5 BACKACHE 07/01/2012 CAAL DO, STANFORD K 724.5 BACKACHE 07/01/2012 CAAL DO, STANFORD K 724.5 BACKACHE 07/01/2012 CAAL DO, STANFORD K 724.5 BACKACHE 07/01/2012 CAAL DO, STANFORD K 724.5 BACKACHE 07/01/2012 LOUIS AGRVEY APRN 724.5 BACKACHE 07/01/2012 CAAL DO, STANFORD K 724.5 BACKACHE 07/01/2012 CAAL DO, STANFORD K 724.5 BACKACHE 07/01/2012 CAAL DO, STANFORD K 724.5 BACKACHE 07/01/2012 LOUIS GARVEY APRN 724.5 BACKACHE 07/01/2012 CAAL DO, STANFORD K 724.5 BACKACHE 07/01/2012 RUBINA HARLEY APRN 724.5 BACKACHE 07/01/2012 LEO BENITEZ MD 724.5 BACKACHE 07/01/2012 RUBINA HARLEY APRN 724.5 BACKACHE 07/01/2012 ARISTEO ARAYA APRN 724.5 BACKACHE 07/01/2012 LOUIS GARVEY APRN R 724.5 BACKACHE 07/08/2012 CAAL DO, STANFORD K 724.2 LUMBAGO 07/08/2012 724.2 LUMBAGO 07/08/2012 CAAL DO, STANFORD K 724.2 LUMBAGO 07/08/2012 CAAL DO, STANFORD K 724.2 LUMBAGO 07/08/2012 724.2 LUMBAGO 07/08/2012 724.2 LUMBAGO 07/08/2012 CAAL DO, STANFORD K 724.2 LUMBAGO 07/08/2012 724.2 LUMBAGO 07/08/2012 724.2 LUMBAGO 07/08/2012 724.2 LUMBAGO 07/08/2012 CAAL DO, STANFORD K 724.2 LUMBAGO 07/08/2012 CAAL DO, STANFORD K 724.2 LUMBAGO 07/08/2012 CAAL DO, STANFORD K 724.2 LUMBAGO 07/08/2012 CAAL DO, STANFORD K 724.2 LUMBAGO 07/08/2012 CAAL DO, STANFORD K 724.2 LUMBAGO 07/08/2012 CAAL DO, STANFORD K 724.2 LUMBAGO 07/08/2012 CAAL DO, STANFORD K 724.2 LUMBAGO 07/08/2012 GURU QUEZADA, LOUIS R 724.2 LUMBAGO 07/08/2012 CAAL DO, STANFORD K 724.2 LUMBAGO 07/08/2012 CAAL DO, STANFORD K 724.2 LUMBAGO 07/08/2012 CAAL DO, STANFORD K 724.2 LUMBAGO 07/08/2012 JENN GARVEY APRNINA R 724.2 LUMBAGO 07/08/2012 CAAL DO, STANFORD K 724.2 LUMBAGO 07/08/2012 RUBINA HARLEY APRN 724.2 LUMBAGO 07/08/2012 LEO BENITEZ MD 724.2 LUMBAGO 07/08/2012 RUBINA HARLEY APRN 724.2 LUMBAGO 07/08/2012 ARISTEO RAAYA APRN 724.2 LUMBAGO 07/08/2012 LOUIS GARVEY APRN R 724.2 LUMBAGO 08/02/2012 CAAL DO, STANFORD K 790.29 ABNORMAL GLUCOSE 08/02/2012 790.29 ABNORMAL GLUCOSE 08/02/2012 790.29 ABNORMAL GLUCOSE 08/02/2012 CAAL DO, STANFORD K 790.29 ABNORMAL GLUCOSE 08/02/2012 790.29 ABNORMAL GLUCOSE 08/02/2012 790.29 ABNORMAL GLUCOSE 08/02/2012 790.29 ABNORMAL GLUCOSE 08/02/2012 CAAL DO, STANFORD K 790.29 ABNORMAL GLUCOSE 08/02/2012 CAAL DO, STANFORD K 790.29 ABNORMAL GLUCOSE 08/02/2012 CAAL DO, STANFORD K 790.29 ABNORMAL GLUCOSE 08/02/2012 CAAL DO, STANFORD K 790.29 ABNORMAL GLUCOSE 08/02/2012 CAAL DO, STANFORD K 790.29 ABNORMAL GLUCOSE 08/02/2012 CAAL DO, STANFORD K 790.29 ABNORMAL GLUCOSE 08/02/2012 CAAL DO, STANFORD K 790.29 ABNORMAL GLUCOSE 08/02/2012 LOUIS GARVEY APRN R 790.29 ABNORMAL GLUCOSE 08/02/2012 CAAL DO, STANFORD K 790.29 ABNORMAL GLUCOSE 08/02/2012 CAAL DO, STANFORD K 790.29 ABNORMAL GLUCOSE 08/02/2012 CAAL DO, STANFORD K 790.29 ABNORMAL GLUCOSE 08/02/2012 LOUIS GARVEY APRN R 790.29 ABNORMAL GLUCOSE 08/02/2012 CAAL DO, STANFORD K 790.29 ABNORMAL GLUCOSE 08/02/2012 RUBINA HARLEY APRN 790.29 ABNORMAL GLUCOSE 08/02/2012 LEO BENITEZ MD 790.29 ABNORMAL GLUCOSE 08/02/2012 RUBINA HARLEY APRN 790.29 ABNORMAL GLUCOSE 08/02/2012 ARISTEO ARAYA APRN 790.29 ABNORMAL GLUCOSE 08/02/2012 LOUIS GARVEY APRN R 790.29 ABNORMAL GLUCOSE 08/18/2012 466.0 ACUTE BRONCHITIS 08/18/2012 466.0 ACUTE BRONCHITIS 08/18/2012 AFUA DO STANFORD K 466.0 ACUTE BRONCHITIS 08/18/2012 466.0 ACUTE BRONCHITIS 08/18/2012 466.0 ACUTE BRONCHITIS 08/18/2012 466.0 ACUTE BRONCHITIS 08/18/2012 AFUA DO STANFORD K 466.0 ACUTE BRONCHITIS 08/18/2012 CAAL DO, STANFORD K 466.0 ACUTE BRONCHITIS 08/18/2012 CAAL DO, STANFORD K 466.0 ACUTE BRONCHITIS 08/18/2012 CAAL DO, STANFORD K 466.0 ACUTE BRONCHITIS 08/18/2012 CAAL DO, STANFORD K 466.0 ACUTE BRONCHITIS 08/18/2012 CAAL DO, STANFORD K 466.0 ACUTE BRONCHITIS 08/18/2012 CAAL DO, STANFORD K 466.0 ACUTE BRONCHITIS 08/18/2012 GURU QUEZADA, [place] R 466.0 ACUTE BRONCHITIS 08/18/2012 CAAL DO, STANFORD K 466.0 ACUTE BRONCHITIS 08/18/2012 CAAL DO, STANFORD K 466.0 ACUTE BRONCHITIS 08/18/2012 CAAL DO, STANFORD K 466.0 ACUTE BRONCHITIS 08/18/2012 JENN GARVEY APRNINA R 466.0 ACUTE BRONCHITIS 08/18/2012 CAAL DO, STANFORD K 466.0 ACUTE BRONCHITIS 08/18/2012 RUBINA HARLEY APRN D 466.0 ACUTE BRONCHITIS 08/18/2012 LEO BENITEZ MD 466.0 ACUTE BRONCHITIS 08/18/2012 RUBINA HARLEY APRN 466.0 ACUTE BRONCHITIS 08/18/2012 ARISTEO ARAYA APRN 466.0 ACUTE BRONCHITIS 08/18/2012 GURU QUEZADA, [place] R 466.0 ACUTE BRONCHITIS 08/26/2012 786.05 shortness of breath 08/26/2012 786.50 chest pain or discomfort 08/26/2012 CAAL DO, STANFORD K 786.05 shortness of breath 08/26/2012 CAAL DO, STANFORD K 786.50 chest pain or discomfort 08/26/2012 786.05 shortness of breath 08/26/2012 786.50 chest pain or discomfort 08/26/2012 786.05 shortness of breath 08/26/2012 786.50 chest pain or discomfort 08/26/2012 786.05 SHORTNESS OF BREATH 08/26/2012 786.50 CHEST PAIN OR DISCOMFORT 08/26/2012 CAAL DO, STANFORD K 786.05 SHORTNESS OF BREATH 08/26/2012 CAAL DO, STANFORD K 786.50 CHEST PAIN OR DISCOMFORT 08/26/2012 CAAL DO, STANFORD K 786.05 SHORTNESS OF BREATH 08/26/2012 CAAL DO, STANFORD K 786.50 CHEST PAIN OR DISCOMFORT 08/26/2012 CAAL DO, STANFORD K 786.05 SHORTNESS OF BREATH 08/26/2012 CAAL DO, STANFORD K 786.50 CHEST PAIN OR DISCOMFORT 08/26/2012 CAAL DO, STANFORD K 786.05 SHORTNESS OF BREATH 08/26/2012 CAAL DO, STANFORD K 786.50 CHEST PAIN OR DISCOMFORT 08/26/2012 CAAL DO, STANFORD K 786.05 SHORTNESS OF BREATH 08/26/2012 CAAL DO, STANFORD K 786.50 CHEST PAIN OR DISCOMFORT 08/26/2012 CAAL DO, STANFORD K 786.05 SHORTNESS OF BREATH 08/26/2012 CAAL DO, STANFORD K 786.50 CHEST PAIN OR DISCOMFORT 08/26/2012 CAAL DO, STANFORD K 786.05 SHORTNESS OF BREATH 08/26/2012 CAAL DO, STANFORD K 786.50 CHEST PAIN OR DISCOMFORT 08/26/2012 GURU QUEZADA, [place] R 786.05 SHORTNESS OF BREATH 08/26/2012 GURU QUEZADA, [place] R 786.50 CHEST PAIN OR DISCOMFORT 08/26/2012 CAAL DO, STANFORD K 786.05 SHORTNESS OF BREATH 08/26/2012 CAAL DO, STANFORD K 786.50 CHEST PAIN OR DISCOMFORT 08/26/2012 CAAL DO, STANFORD K 786.05 SHORTNESS OF BREATH 08/26/2012 CAAL DO, STANFORD K 786.50 CHEST PAIN OR DISCOMFORT 08/26/2012 CAAL DO, STANFORD K 786.05 SHORTNESS OF BREATH 08/26/2012 CAAL DO, STAFNORD K 786.50 CHEST PAIN OR DISCOMFORT 08/26/2012 GURU QUEZADA [place] R 786.05 SHORTNESS OF BREATH 08/26/2012 GURU QUEZADA, [place] R 786.50 CHEST PAIN OR DISCOMFORT 08/26/2012 CAAL DO, STANFORD K 786.05 SHORTNESS OF BREATH 08/26/2012 CAAL DO, STANFORD K 786.50 CHEST PAIN OR DISCOMFORT 08/26/2012 RUBINA HARLEY APRN 786.05 SHORTNESS OF BREATH 08/26/2012 RUBINA HARLEY APRN 786.50 CHEST PAIN OR DISCOMFORT 08/26/2012 LEO BENITEZ MD 786.05 SHORTNESS OF BREATH 08/26/2012 LEO BENITEZ MD 786.50 CHEST PAIN OR DISCOMFORT 08/26/2012 RUBINA HARLEY APRN 786.05 SHORTNESS OF BREATH 08/26/2012 RUBINA HARLEY APRN 786.50 CHEST PAIN OR DISCOMFORT 08/26/2012 ARISTEO ARAYA APRN T 786.05 SHORTNESS OF BREATH 08/26/2012 ARISTEO ARAYA APRN T 786.50 CHEST PAIN OR DISCOMFORT 08/26/2012 GURU QUEZADA, [place] R 786.05 SHORTNESS OF BREATH 08/26/2012 GURU BLEVINSN, [place] R 786.50 CHEST PAIN OR DISCOMFORT 09/04/2012 CAAL DO, STANFORD K 790.95 ELEVATED C-REACTIVE PROTEIN (CRP) 09/04/2012 790.95 ELEVATED C- REACTIVE PROTEIN (CRP) 09/04/2012 790.95 ELEVATED C- REACTIVE PROTEIN (CRP) 09/04/2012 790.95 ELEVATED C- REACTIVE PROTEIN (CRP) 09/04/2012 CAAL DO, STANFORD K 790.95 ELEVATED C-REACTIVE PROTEIN (CRP) 09/04/2012 CAAL DO, STANFORD K 790.95 ELEVATED C-REACTIVE PROTEIN (CRP) 09/04/2012 CAAL DO, STANFORD K 790.95 ELEVATED C-REACTIVE PROTEIN (CRP) 09/04/2012 CAAL DO, STANFORD K 790.95 ELEVATED C-REACTIVE PROTEIN (CRP) 09/04/2012 CAAL DO, STANFORD K 790.95 ELEVATED C-REACTIVE PROTEIN (CRP) 09/04/2012 CAAL DO, STANFORD K 790.95 ELEVATED C-REACTIVE PROTEIN (CRP) 09/04/2012 CAAL DO, STANFORD K 790.95 ELEVATED C-REACTIVE PROTEIN (CRP) 09/04/2012 GURU BLEVINSN, [place] R 790.95 ELEVATED C-REACTIVE PROTEIN (CRP) 09/04/2012 CAAL DO, STANFORD K 790.95 ELEVATED C-REACTIVE PROTEIN (CRP) 09/04/2012 CAAL DO, STANFORD K 790.95 ELEVATED C-REACTIVE PROTEIN (CRP) 09/04/2012 CAAL DO, STANFORD K 790.95 ELEVATED C-REACTIVE PROTEIN (CRP) 09/04/2012 JENN GARVEY APRNINA R 790.95 ELEVATED C-REACTIVE PROTEIN (CRP) 09/04/2012 CAAL DO, STANFORD K 790.95 ELEVATED C-REACTIVE PROTEIN (CRP) 09/04/2012 RUBINA HARLEY APRN 790.95 ELEVATED C-REACTIVE PROTEIN (CRP) 09/04/2012 LEO BENITEZ MD 790.95 ELEVATED C-REACTIVE PROTEIN (CRP) 09/04/2012 RUBINA HARLEY APRN 790.95 ELEVATED C-REACTIVE PROTEIN (CRP) 09/04/2012 ARISTEO ARAYA APRN 790.95 ELEVATED C-REACTIVE PROTEIN (CRP) 09/04/2012 LOUIS GARVEY APRN 790.95 ELEVATED C-REACTIVE PROTEIN (CRP) 11/13/2012 845.00 SPRAIN/ STRAIN ANKLE 11/13/2012 845.00 SPRAIN/ STRAIN ANKLE 11/13/2012 845.00 SPRAIN/ STRAIN ANKLE 11/13/2012 CAAL DO, STANFORD K 845.00 SPRAIN/STRAIN ANKLE 11/13/2012 CAAL DO, STANFORD K 845.00 SPRAIN/STRAIN ANKLE 11/13/2012 CAAL DO, STANFORD K 845.00 SPRAIN/STRAIN ANKLE 11/13/2012 CAAL DO, STANFORD K 845.00 SPRAIN/STRAIN ANKLE 11/13/2012 CAAL DO, STANFORD K 845.00 SPRAIN/STRAIN ANKLE 11/13/2012 CAAL DO, STANFORD K 845.00 SPRAIN/STRAIN ANKLE 11/13/2012 CAAL DO, STANFORD K 845.00 SPRAIN/STRAIN ANKLE 11/13/2012 LOUIS GARVEY APRN R 845.00 SPRAIN/STRAIN ANKLE 11/13/2012 CAAL DO, STANFORD K 845.00 SPRAIN/STRAIN ANKLE 11/13/2012 CAAL DO, STANFORD K 845.00 SPRAIN/STRAIN ANKLE 11/13/2012 CAAL DO, STANFORD K 845.00 SPRAIN/STRAIN ANKLE 11/13/2012 LOUIS GARVEY APRN R 845.00 SPRAIN/STRAIN ANKLE 11/13/2012 CAAL DO, STANFORD K 845.00 SPRAIN/STRAIN ANKLE 11/13/2012 RUBINA HARLEY APRN 845.00 SPRAIN/STRAIN ANKLE 11/13/2012 LEO BENITEZ MD 845.00 SPRAIN/STRAIN ANKLE 11/13/2012 RUBINA HARLEY APRN 845.00 SPRAIN/STRAIN ANKLE 11/13/2012 ARISTEO ARAYA APRN 845.00 SPRAIN/STRAIN ANKLE 11/13/2012 LOUIS GARVEY APRN R 845.00 SPRAIN/STRAIN ANKLE 11/17/2012 272.4 HYPERLIPIDEMIA 11/17/2012 780.79 fatigue 11/17/2012 272.4 HYPERLIPIDEMIA 11/17/2012 780.79 FATIGUE 11/17/2012 CAAL DO, STANFORD K 272.4 HYPERLIPIDEMIA 11/17/2012 CAAL DO, STANFORD K 780.79 FATIGUE 11/17/2012 CAAL DO, STANFORD K 272.4 HYPERLIPIDEMIA 11/17/2012 CAAL DO, STANFORD K 780.79 FATIGUE 11/17/2012 CAAL DO, STANFORD K 272.4 HYPERLIPIDEMIA 11/17/2012 CAAL DO, STANFORD K 780.79 FATIGUE 11/17/2012 CAAL DO, STANFORD K 272.4 HYPERLIPIDEMIA 11/17/2012 CAAL DO, STANFORD K 780.79 FATIGUE 11/17/2012 CAAL DO, STANFORD K 272.4 HYPERLIPIDEMIA 11/17/2012 CAAL DO, STANFORD K 780.79 FATIGUE 11/17/2012 CAAL DO, STANFORD K 272.4 HYPERLIPIDEMIA 11/17/2012 CAAL DO, STANFORD K 780.79 FATIGUE 11/17/2012 CAAL DO, STANFORD K 272.4 HYPERLIPIDEMIA 11/17/2012 CAAL DO, TSANFORD K 780.79 FATIGUE 11/17/2012 GURU QUEZADA [place] R 272.4 HYPERLIPIDEMIA 11/17/2012 GURU QUEZADA [place] R 780.79 FATIGUE 11/17/2012 CAAL DO, STANFORD K 272.4 HYPERLIPIDEMIA 11/17/2012 CAAL DO, STAN[place]ORD K 780.79 FATIGUE 11/17/2012 CAAL DO, STANFORD K 272.4 HYPERLIPIDEMIA 11/17/2012 CAAL DO, STANFORD K 780.79 FATIGUE 11/17/2012 CAAL DO, STANFORD K 272.4 HYPERLIPIDEMIA 11/17/2012 CAAL DO, STAN[place]ORD K 780.79 FATIGUE 11/17/2012 GURU QUEZADA [place] R 272.4 HYPERLIPIDEMIA 11/17/2012 GURU QUEZADA [place] R 780.79 FATIGUE 11/17/2012 CAAL DO, STANFORD K 272.4 HYPERLIPIDEMIA 11/17/2012 CAAL DO, STANFORD K 780.79 FATIGUE 11/17/2012 RUBINA HARLEY APRN 272.4 HYPERLIPIDEMIA 11/17/2012 RUBINA HARLEY APRN 780.79 FATIGUE 11/17/2012 LEO BENITEZ MD 272.4 HYPERLIPIDEMIA 11/17/2012 LEO BENITEZ MD 780.79 FATIGUE 11/17/2012 RUBINA HARLEY APRN 272.4 HYPERLIPIDEMIA 11/17/2012 RUBINA HARLEY APRN 780.79 FATIGUE 11/17/2012 ARISTEO ARAYA APRN 272.4 HYPERLIPIDEMIA 11/17/2012 ARISTEO ARAYA APRN 780.79 FATIGUE 11/17/2012 LOUIS GARVEY APRN R 272.4 HYPERLIPIDEMIA 11/17/2012 LOUIS GARVEY APRN R 780.79 FATIGUE 11/30/2012 414.8 OTHER SPECIFIED FORMS OF CHRONIC ISCHEMIC HEART DISEASE 11/30/2012 CAAL DO STAN[place]ORD K 414.8 OTHER SPECIFIED FORMS OF CHRONIC ISCHEMIC HEART DISEASE 11/30/2012 CAAL DO, STANFORD K 414.8 OTHER SPECIFIED FORMS OF CHRONIC ISCHEMIC HEART DISEASE 11/30/2012 CAAL DO, STANFORD K 414.8 OTHER SPECIFIED FORMS OF CHRONIC ISCHEMIC HEART DISEASE 11/30/2012 CAAL DO, STANFORD K 414.8 OTHER SPECIFIED FORMS OF CHRONIC ISCHEMIC HEART DISEASE 11/30/2012 CAAL DO, STANFORD K 414.8 OTHER SPECIFIED FORMS OF CHRONIC ISCHEMIC HEART DISEASE 11/30/2012 CAAL DO, STANFORD K 414.8 OTHER SPECIFIED FORMS OF CHRONIC ISCHEMIC HEART DISEASE 11/30/2012 CAAL DO, STANFORD K 414.8 OTHER SPECIFIED FORMS OF CHRONIC ISCHEMIC HEART DISEASE 11/30/2012 LOUIS GARVEY APRN R 414.8 OTHER SPECIFIED FORMS OF CHRONIC ISCHEMIC HEART DISEASE 11/30/2012 CAAL DO, STAN[place]ORD K 414.8 OTHER SPECIFIED FORMS OF CHRONIC ISCHEMIC HEART DISEASE 11/30/2012 CAAL DO, STANFORD K 414.8 OTHER SPECIFIED FORMS OF CHRONIC ISCHEMIC HEART DISEASE 11/30/2012 CAAL DO, STANFORD K 414.8 OTHER SPECIFIED FORMS OF CHRONIC ISCHEMIC HEART DISEASE 11/30/2012 LOUIS GARVEY APRN R 414.8 OTHER SPECIFIED FORMS OF CHRONIC ISCHEMIC HEART DISEASE 11/30/2012 CAAL DO STAN[place]ORD K 414.8 OTHER SPECIFIED FORMS OF CHRONIC ISCHEMIC HEART DISEASE 11/30/2012 RUBINA HARLEY APRN 414.8 OTHER SPECIFIED FORMS OF CHRONIC ISCHEMIC HEART DISEASE 11/30/2012 LEO BENITEZ MD 414.8 OTHER SPECIFIED FORMS OF CHRONIC ISCHEMIC HEART DISEASE 11/30/2012 RUBINA HARLEY APRN 414.8 OTHER SPECIFIED FORMS OF CHRONIC ISCHEMIC HEART DISEASE 11/30/2012 ARISTEO ARAYA APRN 414.8 OTHER SPECIFIED FORMS OF CHRONIC ISCHEMIC HEART DISEASE 11/30/2012 LOUIS GARVEY APRN R 414.8 OTHER SPECIFIED FORMS OF CHRONIC ISCHEMIC HEART DISEASE 12/17/2012 CAAL DO STAN[place]ORD K 719.41 PAIN IN JOINT INVOLVING SHOULDER REGION 12/17/2012 CAAL DO, STANFORD K 719.41 PAIN IN JOINT INVOLVING SHOULDER REGION 12/17/2012 CAAL DO, STANFORD K 719.41 PAIN IN JOINT INVOLVING SHOULDER REGION 12/17/2012 CAAL DO, STANFORD K 719.41 PAIN IN JOINT INVOLVING SHOULDER REGION 12/17/2012 CAAL DO, STANFORD K 719.41 PAIN IN JOINT INVOLVING SHOULDER REGION 12/17/2012 CAAL DO, STANFORD K 719.41 PAIN IN JOINT INVOLVING SHOULDER REGION 12/17/2012 CAAL DO, STANFORD K 719.41 PAIN IN JOINT INVOLVING SHOULDER REGION 12/17/2012 LOUIS GARVEY APRN 719.41 PAIN IN JOINT INVOLVING SHOULDER REGION 12/17/2012 CAAL DO, STANFORD K 719.41 PAIN IN JOINT INVOLVING SHOULDER REGION 12/17/2012 CAAL DO, STANFORD K 719.41 PAIN IN JOINT INVOLVING SHOULDER REGION 12/17/2012 CAAL DO, STANFORD K 719.41 PAIN IN JOINT INVOLVING SHOULDER REGION 12/17/2012 LOUIS GARVEY APRN 719.41 PAIN IN JOINT INVOLVING SHOULDER REGION 12/17/2012 CAAL DO, STANFORD K 719.41 PAIN IN JOINT INVOLVING SHOULDER REGION 12/17/2012 RUBINA HARLEY APRN 719.41 PAIN IN JOINT INVOLVING SHOULDER REGION 12/17/2012 LEO BENITEZ MD 719.41 PAIN IN JOINT INVOLVING SHOULDER REGION 12/17/2012 RUBINA HARLEY APRN 719.41 PAIN IN JOINT INVOLVING SHOULDER REGION 12/17/2012 ARISTEO ARAYA APRN 719.41 PAIN IN JOINT INVOLVING SHOULDER REGION 12/17/2012 LOUIS GARVEY APRN 719.41 PAIN IN JOINT INVOLVING SHOULDER REGION 04/28/2013 CAAL DO, STANFORD K 354.2 LESION OF ULNAR NERVE 04/28/2013 CAAL DO, STANFORD K 354.2 LESION OF ULNAR NERVE 04/28/2013 CAAL DO, STANFORD K 354.2 LESION OF ULNAR NERVE 04/28/2013 CAAL DO, STANFORD K 354.2 LESION OF ULNAR NERVE 04/28/2013 LOUIS GARVEY APRN R 354.2 LESION OF ULNAR NERVE 04/28/2013 CAAL DO, STAN[place]ORD K 354.2 LESION OF ULNAR NERVE 04/28/2013 CAAL DO, STANFORD K 354.2 LESION OF ULNAR NERVE 04/28/2013 CAAL DO, STANFORD K 354.2 LESION OF ULNAR NERVE 04/28/2013 LOUIS GARVEY APRN R 354.2 LESION OF ULNAR NERVE 04/28/2013 AFUA DO, STANFORD K 354.2 LESION OF ULNAR NERVE 04/28/2013 RUBINA HARLEY APRN 354.2 LESION OF ULNAR NERVE 04/28/2013 LEO BENITEZ MD 354.2 LESION OF ULNAR NERVE 04/28/2013 RUBINA HARLEY APRN 354.2 LESION OF ULNAR NERVE 04/28/2013 ARISTEO ARAYA APRN 354.2 LESION OF ULNAR NERVE 04/28/2013 LOUIS GARVEY APRN 354.2 LESION OF ULNAR NERVE 06/21/2013 CAAL DO, STANFORD K 079.99 UNSPECIFIED VIRAL INFECTION 06/21/2013 CAAL DO, STANFORD K 079.99 UNSPECIFIED VIRAL INFECTION 06/21/2013 LOUIS GARVEY APRN R 079.99 UNSPECIFIED VIRAL INFECTION 06/21/2013 CAAL DO, STAN[place]ORD K 079.99 UNSPECIFIED VIRAL INFECTION 06/21/2013 CAAL DO, STANFORD K 079.99 UNSPECIFIED VIRAL INFECTION 06/21/2013 CAAL DO, STAN[place]ORD K 079.99 UNSPECIFIED VIRAL INFECTION 06/21/2013 LOUIS GARVEY APRN R 079.99 UNSPECIFIED VIRAL INFECTION 06/21/2013 CAAL DO, STAN[place]ORD K 079.99 UNSPECIFIED VIRAL INFECTION 06/21/2013 RUBINA HARLEY APRN 079.99 UNSPECIFIED VIRAL INFECTION 06/21/2013 LEO BENITEZ MD 079.99 UNSPECIFIED VIRAL INFECTION 06/21/2013 RUBINA HARLEY APRN 079.99 UNSPECIFIED VIRAL INFECTION 06/21/2013 ARISTEO ARAYA APRN 079.99 UNSPECIFIED VIRAL INFECTION 06/21/2013 JENN GARVEY APRNINA R 079.99 UNSPECIFIED VIRAL INFECTION 06/22/2013 CAAL DO, STANFORD K 250.00 DIABETES II CONTROLLED (UNCOMPLICATED) 06/22/2013 CAAL DO, STANFORD K 250.00 DIABETES II CONTROLLED (UNCOMPLICATED) 06/22/2013 JENN GARVEY APRNINA R 250.00 DIABETES II CONTROLLED (UNCOMPLICATED) 06/22/2013 CAAL DO, STANFORD K 250.00 DIABETES II CONTROLLED (UNCOMPLICATED) 06/22/2013 CAAL DO, STANFORD K 250.00 DIABETES II CONTROLLED (UNCOMPLICATED) 06/22/2013 CAAL DO, STANFORD K 250.00 DIABETES II CONTROLLED (UNCOMPLICATED) 06/22/2013 LOUIS GARVEY APRN R 250.00 DIABETES II CONTROLLED (UNCOMPLICATED) 06/22/2013 CAAL DO STAN[place]ORD K 250.00 DIABETES II CONTROLLED (UNCOMPLICATED) 06/22/2013 RUBINA HARLEY APRN 250.00 DIABETES II CONTROLLED (UNCOMPLICATED) 06/22/2013 LEO BENITEZ MD 250.00 DIABETES II CONTROLLED (UNCOMPLICATED) 06/22/2013 RUBINA HARLEY APRN 250.00 DIABETES II CONTROLLED (UNCOMPLICATED) 06/22/2013 ARISTEO ARAYA APRN 250.00 DIABETES II CONTROLLED (UNCOMPLICATED) 06/22/2013 LOUIS GARVEY APRN R 250.00 DIABETES II CONTROLLED (UNCOMPLICATED) 07/05/2013 CAAL DO STAN[place]ORD K 719.47 PAIN IN JOINT INVOLVING ANKLE AND FOOT 07/05/2013 CAAL DO, STANFORD K 928.3 CRUSHING INJURY OF TOE(S) 07/05/2013 LOUIS GARVEY APRN R 719.47 PAIN IN JOINT INVOLVING ANKLE AND FOOT 07/05/2013 JENN GARVEY APRNINA R 928.3 CRUSHING INJURY OF TOE(S) 07/05/2013 CAAL DO ST[place] K 719.47 PAIN IN JOINT INVOLVING ANKLE AND FOOT 07/05/2013 CAAL DO, STANFORD K 928.3 CRUSHING INJURY OF TOE(S) 07/05/2013 CAAL DO, STANFORD K 719.47 PAIN IN JOINT INVOLVING ANKLE AND FOOT 07/05/2013 CAAL DO, STANFORD K 928.3 CRUSHING INJURY OF TOE(S) 07/05/2013 CAAL DO ST[place] K 719.47 PAIN IN JOINT INVOLVING ANKLE AND FOOT 07/05/2013 CAAL DO, STANFORD K 928.3 CRUSHING INJURY OF TOE(S) 07/05/2013 LOUIS GARVEY APRN R 719.47 PAIN IN JOINT INVOLVING ANKLE AND FOOT 07/05/2013 JENN GARVEY APRNINA R 928.3 CRUSHING INJURY OF TOE(S) 07/05/2013 CAAL DO ST[place] K 719.47 PAIN IN JOINT INVOLVING ANKLE AND FOOT 07/05/2013 CAAL DO [place] K 928.3 CRUSHING INJURY OF TOE(S) 07/05/2013 RUBINA HARLEY APRN 719.47 PAIN IN JOINT INVOLVING ANKLE AND FOOT 07/05/2013 RUBINA HARLEY APRN 928.3 CRUSHING INJURY OF TOE(S) 07/05/2013 LEO BENITEZ MD 719.47 PAIN IN JOINT INVOLVING ANKLE AND FOOT 07/05/2013 LEO BENITEZ MD 928.3 CRUSHING INJURY OF TOE(S) 07/05/2013 RUBINA HARELY APRN 719.47 PAIN IN JOINT INVOLVING ANKLE AND FOOT 07/05/2013 RUBINA HARLEY APRN 928.3 CRUSHING INJURY OF TOE(S) 07/05/2013 ARISTEO ARAYA APRN 719.47 PAIN IN JOINT INVOLVING ANKLE AND FOOT 07/05/2013 ARISTEO ARAYA APRN 928.3 CRUSHING INJURY OF TOE(S) 07/05/2013 LOUIS GARVEY APRN R 719.47 PAIN IN JOINT INVOLVING ANKLE AND FOOT 07/05/2013 LOUIS GARVEY APRN R 928.3 CRUSHING INJURY OF TOE(S) 07/30/2013 SANTO BRICENO, MIHIR Salazar Ot 786.50 CHEST PAIN NOS 09/06/2013 GURU QUEZADA [place] R 564.00 CONSTIPATION 09/06/2013 GURU QUEZADA [place] R 787.01 NAUSEA WITH VOMITING 09/06/2013 GURU QUEZADA [place] R 789.00 ABDOMINAL PAIN UNSPECIFIED SITE 09/06/2013 CAAL DO, STANFORD K 564.00 CONSTIPATION 09/06/2013 CAAL DO, STANFORD K 787.01 NAUSEA WITH VOMITING 09/06/2013 CAAL DO, STAN[place] K 789.00 ABDOMINAL PAIN UNSPECIFIED SITE 09/06/2013 CAAL DO, STAN[place] K 564.00 CONSTIPATION 09/06/2013 CAAL DO, ST[place] K 787.01 NAUSEA WITH VOMITING 09/06/2013 CAAL DO, ST[place] K 789.00 ABDOMINAL PAIN UNSPECIFIED SITE 09/06/2013 CAAL DO, STAN[place]ORD K 564.00 CONSTIPATION 09/06/2013 CAAL DO, STAN[place] K 787.01 NAUSEA WITH VOMITING 09/06/2013 CAAL DO, STAN[place] K 789.00 ABDOMINAL PAIN UNSPECIFIED SITE 09/06/2013 GURU QUEZADA [place] R 564.00 CONSTIPATION 09/06/2013 GURU QUEZADA [place] R 787.01 NAUSEA WITH VOMITING 09/06/2013 GURU QUEZADA, [place] R 789.00 ABDOMINAL PAIN UNSPECIFIED SITE 09/06/2013 CAAL DO, STAN[place]ORD K 564.00 CONSTIPATION 09/06/2013 CAAL DO, STAN[place]ORD K 787.01 NAUSEA WITH VOMITING 09/06/2013 CAAL DO, STAN[place] K 789.00 ABDOMINAL PAIN UNSPECIFIED SITE 09/06/2013 RUBINA HARLEY APRN 564.00 CONSTIPATION 09/06/2013 RUBINA HARLEY APRN 787.01 NAUSEA WITH VOMITING 09/06/2013 RUBINA HARLEY APRN 789.00 ABDOMINAL PAIN UNSPECIFIED SITE 09/06/2013 LEO BENITEZ MD 564.00 CONSTIPATION 09/06/2013 LEO BENITEZ MD 787.01 NAUSEA WITH VOMITING 09/06/2013 LEO BENITEZ MD 789.00 ABDOMINAL PAIN UNSPECIFIED SITE 09/06/2013 RUBINA HARLEY APRN 564.00 CONSTIPATION 09/06/2013 RUBINA HARLEY APRN 787.01 NAUSEA WITH VOMITING 09/06/2013 RUBINA HARLEY APRN 789.00 ABDOMINAL PAIN UNSPECIFIED SITE 09/06/2013 ARISTEO ARAYA APRN T 564.00 CONSTIPATION 09/06/2013 ARISTEO ARAYA APRN 787.01 NAUSEA WITH VOMITING 09/06/2013 MARSHAL QUEZADA ARISTEO T 789.00 ABDOMINAL PAIN UNSPECIFIED SITE 09/06/2013 JENN GARVEY APRNINA R 564.00 CONSTIPATION 09/06/2013 JENN GARVEY APRNINA R 787.01 NAUSEA WITH VOMITING 09/06/2013 GURU QUEZADA LOUIS R 789.00 ABDOMINAL PAIN UNSPECIFIED SITE 10/14/2013 JAYDE ESPINO MD Ot 564.00 UNSPEC CONSTIPATION 10/14/2013 JAYDE ESPINO MD Ot 789.09 ABDOMINAL PAIN, OTHER SPECIFIED SITE 11/15/2013 CAAL DO, STANFORD K 729.1 FIBROMYALGIA 11/15/2013 CAAL DO, STANFORD K 729.1 FIBROMYALGIA 11/15/2013 JENN GARVEY APRNINA R 729.1 FIBROMYALGIA 11/15/2013 CAAL DO, STANFORD K 729.1 FIBROMYALGIA 11/15/2013 RUBINA HARLEY APRN 729.1 FIBROMYALGIA 11/15/2013 LEO BENITEZ MD 729.1 FIBROMYALGIA 11/15/2013 RUBNIA HARLEY APRN 729.1 FIBROMYALGIA 11/15/2013 ARISTEO ARAYA APRN 729.1 FIBROMYALGIA 11/15/2013 LOUIS GARVEY APRN 729.1 FIBROMYALGIA 01/11/2014 AFUA GARCIA STANFORD K 414.00 CAD 01/11/2014 LOUIS GARVEY APRN R 414.00 CAD 01/11/2014 CLEMENTINE CAAL DOA K 414.00 CAD 01/11/2014 RUBINA HARLEY APRN 414.00 CAD 01/11/2014 LEO BENITEZ MD 414.00 CAD 01/11/2014 RUBINA HARLEY APRN 414.00 CAD 01/11/2014 ARISTEO ARAYA APRN 414.00 CAD 01/11/2014 LOUIS GARVEY APRN 414.00 CAD 02/21/2014 AFUA GARCIA ST[place] K V15.81 PERSONAL HISTORY OF NONCOMPLIANCE WITH MEDICAL TREATMENT PRESENTING HAZARDS TO HEALTH 02/21/2014 RUBINA HARLEY APRN V15.81 PERSONAL HISTORY OF NONCOMPLIANCE WITH MEDICAL TREATMENT PRESENTING HAZARDS TO HEALTH 02/21/2014 LEO BENITEZ MD V15.81 PERSONAL HISTORY OF NONCOMPLIANCE WITH MEDICAL TREATMENT PRESENTING HAZARDS TO HEALTH 02/21/2014 RUBINA HARLEY APRN V15.81 PERSONAL HISTORY OF NONCOMPLIANCE WITH MEDICAL TREATMENT PRESENTING HAZARDS TO HEALTH 02/21/2014 ARISTEO ARAYA APRN V15.81 PERSONAL HISTORY OF NONCOMPLIANCE WITH MEDICAL TREATMENT PRESENTING HAZARDS TO HEALTH 02/21/2014 LOUIS GARVEY APRN V15.81 PERSONAL HISTORY OF NONCOMPLIANCE WITH MEDICAL TREATMENT PRESENTING HAZARDS TO HEALTH 06/06/2014 LEO BENITEZ MD 787.91 DIARRHEA 06/06/2014 RUBINA HARLEY APRN 787.91 DIARRHEA 06/06/2014 ARISTEO ARAYA APRN 787.91 DIARRHEA 06/06/2014 LOUIS GARVEY APRN 787.91 DIARRHEA 07/12/2014 ARISTEO SOLANO DO Ot 307.47 SLEEP STAGE DYSFUNC NEC 08/23/2014 ARISTEO ARAYA APRN 724.5 BACK PAIN, GENERAL 08/23/2014 LOUIS GARVEY APRN 724.5 BACK PAIN, GENERAL 09/06/2014 LENNY CHAUHAN Ot 719.01 09/06/2014 RODERICK PA, LENNY M Ot 719.41 09/06/2014 RODERICK PA, LENNY M Ot 719.01 09/06/2014 RODERICK PA, LENNY M Ot 719.41 09/20/2014 LOUIS GARVEY APRN R 599.0 URINARY TRACT INFECTION 09/20/2014 LOUIS GARVEY APRN R 780.60 FEVER, UNSPECIFIED 09/28/2014 RODERICK ALMANZA, LENNY M Ot 719.01 09/28/2014 RODERICK PA, LENNY M Ot 719.41 10/04/2014 GURU LOUIS R TIN FLOPPER Ot 722.10 10/04/2014 GURU LOUIS R TIN FLOPPER Ot 722.10 10/05/2014 GURU LOUIS R TIN FLOPPER Ot 722.10 11/04/2014 LUCRETIA BRICENO, LENNY T Ot 787.01 NAUSEA WITH VOMITING 11/04/2014 LENNY BOYKIN MD T Ot 787.91 DIARRHEA 11/04/2014 MAN BOYKIN MDUA T Ot 789.00 ABDOMINAL PAIN, UNSPECIFIED SITE 11/15/2014 RODERICK ALMANZA, LENNY M Ot 719.01 11/15/2014 RODERICK ALMANZA, LENNY M Ot 719.41 11/15/2014 JENN GARVEYINA R TIN FLOPPER Ot 722.10 11/15/2014 GURU L[place]IS R TIN FLOPPER Ot 722.10 11/15/2014 RODERICK ALMANZA, LENNY M Ot 719.01 11/15/2014 RODERICK PA, LENNY M Ot 719.41 11/27/2014 RODERICK PA, LENNY M Ot 719.01 11/27/2014 RODERICK PA, LENNY M Ot 719.41 11/27/2014 JENN GARVEYINA R TIN FLOPPER Ot 722.10 02/17/2015 RODERICK PA, LENNY M Ot 719.01 02/17/2015 RODERICK PA, LENNY M Ot 719.41 02/17/2015 JENN GARVEYINA R TIN FLOPPER Ot 722.10 02/17/2015 ILYA ELLIS MD Ot 490 BRONCHITIS NOS 02/17/2015 ILYA ELLIS MD Ot 786.2 COUGH 02/17/2015 RODERICK PA, LENNY M Ot 719.01 02/17/2015 LENNY CHAUHAN Ot 719.41 02/17/2015 LOUIS GARVEY TIN FLOPPER Ot 722.10 10/17/2015 SUKUMAR CASE Ot E86.9 VOLUME DEPLETION, UNSPECIFIED 10/17/2015 SUKUMAR CASE Ot K57.90 DVRTCLOS OF INTEST, PART UNSP, W/O PERF 10/17/2015 SUKUMAR CASE Ot R10.84 GENERALIZED ABDOMINAL PAIN 10/17/2015 SUKUMAR CASE Ot R11.2 NAUSEA WITH VOMITING, UNSPECIFIED 10/17/2015 SUKUMAR CASE Ot R19.7 DIARRHEA, UNSPECIFIED 10/17/2015 LENNY CHAUHAN Ot 719.01 JOINT EFFUSION-SHLDER 10/17/2015 LENNY CHAUHAN Ot 719.41 JOINT PAIN-SHLDER 10/17/2015 LOUIS GARVEY TIN FLOPPER Ot 722.10 LUMBAR DISC DISPLACEMENT 10/17/2015 LENNY CHAUHAN Ot 719.01 JOINT EFFUSION-SHLDER 10/17/2015 LENNY CHAUHAN Ot 719.41 JOINT PAIN-SHLDER 10/17/2015 LOUIS GARVEY TIN FLOPPER Ot 722.10 LUMBAR DISC DISPLACEMENT 10/18/2015 SUKUMAR CASE Ot E86.9 VOLUME DEPLETION, UNSPECIFIED 10/18/2015 SUKUMAR CASE Ot K57.90 DVRTCLOS OF INTEST, PART UNSP, W/O PERF 10/18/2015 SUKUMAR CASE Ot R10.84 GENERALIZED ABDOMINAL PAIN 10/18/2015 SUKUMAR CASE Ot R11.2 NAUSEA WITH VOMITING, UNSPECIFIED 10/18/2015 SUKUMAR CASE Ot R19.7 DIARRHEA, UNSPECIFIED 01/05/2016 SHAN BLACK TIN FLOPPER Ot M54.2 CERVICALGIA 01/05/2016 SHAN BLACK TIN FLOPPER Ot R52 PAIN, UNSPECIFIED 01/05/2016 SHAN BLACK TIN FLOPPER Ot S09.90XA UNSPECIFIED INJURY OF HEAD, INITIAL ENCO 01/05/2016 SHAN BLACK TIN FLOPPER Ot W01.0XXA FALL SAME LEV FROM SLIP/TRIP W/O STRIKE 01/05/2016 SHAN BLACK TIN FLOPPER Ot Y92.[address] IN UNSP NON-INSTITUT (PRIVATE 01/05/2016 SHAN BLACK TIN FLOPPER Ot Y99.8 OTHER EXTERNAL CAUSE STATUS 01/05/2016 RODERICK ALMANZA, LENNY Desai Ot 719.01 JOINT EFFUSION-SHLDER 01/05/2016 RODERICK ALMANZA, LENNY M Ot 719.41 JOINT PAIN-SHLDER 01/05/2016 LOUIS GARVEY APRN Ot 722.10 LUMBAR DISC DISPLACEMENT 01/06/2016 LENNY BOYKIN MD Ot E78.0 PURE HYPERCHOLESTEROLEMIA 01/06/2016 LENNY BOYKIN MD Ot I10 ESSENTIAL (PRIMARY) HYPERTENSION 01/06/2016 LENNY BOYKIN MD Ot R07.89 OTHER CHEST PAIN 01/06/2016 LENNY BOYKIN MD Ot R07.9 CHEST PAIN, UNSPECIFIED 01/06/2016 LENNY BOYKIN MD Ot R10.13 EPIGASTRIC PAIN 01/06/2016 RODERICK ALMANZA, LENNY Desai Ot 719.01 JOINT EFFUSION-SHLDER 01/06/2016 RODERICK ALMANZA, LENNY Desai Ot 719.41 JOINT PAIN-SHLDER 01/06/2016 LOIUS GARVEY APRN Ot 722.10 LUMBAR DISC DISPLACEMENT 01/29/2016 LENNY BOYKIN MD Ot E78.0 PURE HYPERCHOLESTEROLEMIA 01/29/2016 LENNY BOYKIN MD Ot I10 ESSENTIAL (PRIMARY) HYPERTENSION 01/29/2016 LENNY BOYKIN MD Ot R07.89 OTHER CHEST PAIN 01/29/2016 LENNY BOYKIN MD Ot R07.9 CHEST PAIN, UNSPECIFIED 01/29/2016 LENNY BOYKIN MD Ot R10.13 EPIGASTRIC PAIN 04/04/2016 TAYLOR PETERSEN MD Ot A41.9 SEPSIS, UNSPECIFIED ORGANISM 04/04/2016 TAYLOR PETERSEN MD Ot E11.9 TYPE 2 DIABETES MELLITUS WITHOUT COMPLIC 04/04/2016 TAYLOR PETERSEN MD Ot E78.00 PURE HYPERCHOLESTEROLEMIA, UNSPECIFIED 04/04/2016 TAYLOR PETERSEN MD Ot F41.9 ANXIETY DISORDER, UNSPECIFIED 04/04/2016 TAYLOR PETERSEN MD Ot F43.10 POST-TRAUMATIC STRESS DISORDER, UNSPECIF 04/04/2016 TAYLOR PETERSEN MD Ot I10 ESSENTIAL (PRIMARY) HYPERTENSION 04/04/2016 TAYLOR PETERSEN MD Ot I25.2 OLD MYOCARDIAL INFARCTION 04/04/2016 TAYLOR PETERSEN MD Ot J18.9 PNEUMONIA, UNSPECIFIED ORGANISM 04/04/2016 TAYLOR PETERSEN MD Ot M79.1 MYALGIA 04/04/2016 TAYLOR PETERSEN MD Ot N39.0 URINARY TRACT INFECTION, SITE NOT SPECIF 06/06/2016 LENNY CHAUHAN Ot 719.01 JOINT EFFUSION-SHLDER 06/06/2016 LENNY CHAUHAN Ot 719.41 JOINT PAIN-SHLDER 06/06/2016 LOUIS GARVEY TIN FLOPPER Ot 722.10 LUMBAR DISC DISPLACEMENT 06/07/2016 SHAN BLACK TIN FLOPPER Ot M54.2 CERVICALGIA 06/07/2016 SHAN BLACK TIN FLOPPER Ot R52 PAIN, UNSPECIFIED 06/07/2016 SHAN BLACK TIN FLOPPER Ot S09.90XA UNSPECIFIED INJURY OF HEAD, INITIAL ENCO 06/07/2016 SHAN BLACK APRN Ot W01.0XXA FALL SAME LEV FROM SLIP/TRIP W/O STRIKE 06/07/2016 SHAN BLACK APRN Ot Y92.[address] [facility] IN [facility] NON-[facility] (PRIVATE 06/07/2016 SHAN BLACK TIN FLOPPER Ot Y99.8 OTHER EXTERNAL CAUSE STATUS 06/14/2016 SUKUMAR CASE Ot E86.9 VOLUME DEPLETION, UNSPECIFIED 06/14/2016 SUKUMAR CASE Ot K57.90 DVRTCLOS OF INTEST, PART UNSP, W/O PERF 06/14/2016 SUKUMAR CASE Ot R10.84 GENERALIZED ABDOMINAL PAIN 06/14/2016 SUKUMAR CASE Ot R11.2 NAUSEA WITH VOMITING, UNSPECIFIED 06/14/2016 SUKUMAR CASE Ot R19.7 DIARRHEA, UNSPECIFIED 06/14/2016 LENNY BOYKIN MD Ot E78.0 PURE HYPERCHOLESTEROLEMIA 06/14/2016 LUCRETIA BRICENO, LENNY Michaud Ot I10 ESSENTIAL (PRIMARY) HYPERTENSION 06/14/2016 LUCRETIA BRICENO, LENNY Michaud Ot R07.89 OTHER CHEST PAIN 06/14/2016 LUCRETIA BRICENO, LENNY Michaud Ot R07.9 CHEST PAIN, UNSPECIFIED 06/14/2016 LUCRETIA BRICENO, LENNY Michaud Ot R10.13 EPIGASTRIC PAIN 11/13/2016 HARLEY, LYNDSEY SPECIAL PROCEDURE TECHNOLOGIST Ot E11.9 TYPE 2 DIABETES MELLITUS WITHOUT COMPLIC 11/13/2016 HARLEY, LYNDSEY SPECIAL PROCEDURE TECHNOLOGIST Ot I10 ESSENTIAL (PRIMARY) HYPERTENSION 11/13/2016 HARLEY, LYNDSEY SPECIAL PROCEDURE TECHNOLOGIST Ot M54.41 LUMBAGO WITH SCIATICA, RIGHT SIDE 11/13/2016 HARLEY, LYNDSEY SPECIAL PROCEDURE TECHNOLOGIST Ot M54.42 LUMBAGO WITH SCIATICA, LEFT SIDE 11/13/2016 HARLEY, LYNDSEY SPECIAL PROCEDURE TECHNOLOGIST Ot S39.92XA UNSPECIFIED INJURY OF LOWER BACK, INITIA 11/13/2016 HARLEY, LYNDSEY SPECIAL PROCEDURE TECHNOLOGIST Ot W01.0XXA FALL SAME LEV FROM SLIP/TRIP W/O STRIKE 11/13/2016 HARLEY, LYNDSEY SPECIAL PROCEDURE TECHNOLOGIST Ot Y92.[address] [facility] (PRIVATE 11/13/2016 HARLEY, LYNDSEY SPECIAL PROCEDURE TECHNOLOGIST Ot Y93.E5 ACTIVITY, FLOOR MOPPING AND CLEANING 11/15/2016 HARLEY, LYNDSEY SPECIAL PROCEDURE TECHNOLOGIST Ot E11.9 TYPE 2 DIABETES MELLITUS WITHOUT COMPLIC 11/15/2016 HARLEY, LYNDSEY SPECIAL PROCEDURE TECHNOLOGIST Ot I10 ESSENTIAL (PRIMARY) HYPERTENSION 11/15/2016 HARLEY, LYNDSEY SPECIAL PROCEDURE TECHNOLOGIST Ot M54.41 LUMBAGO WITH SCIATICA, RIGHT SIDE 11/15/2016 HARLEY, LYNDSEY SPECIAL PROCEDURE TECHNOLOGIST Ot M54.42 LUMBAGO WITH SCIATICA, LEFT SIDE 11/15/2016 HARLEY, LYNDSEY SPECIAL PROCEDURE TECHNOLOGIST Ot S39.92XA UNSPECIFIED INJURY OF LOWER BACK, INITIA 11/15/2016 HARLEY, LYNDSEY SPECIAL PROCEDURE TECHNOLOGIST Ot W01.0XXA FALL SAME LEV FROM SLIP/TRIP W/O STRIKE 11/15/2016 HARLEY, LYNDSEY SPECIAL PROCEDURE TECHNOLOGIST Ot Y92.[address] [facility] (PRIVATE 11/15/2016 HARLEY, LYNDSEY SPECIAL PROCEDURE TECHNOLOGIST Ot Y93.E5 ACTIVITY, FLOOR MOPPING AND CLEANING 01/14/2017 SHAN BLACK APRN Ot E11.9 TYPE 2 DIABETES MELLITUS WITHOUT COMPLIC 01/14/2017 SHAN BLACK APRN Ot E78.00 PURE HYPERCHOLESTEROLEMIA, UNSPECIFIED 01/14/2017 SHAN BLACK APRN Ot F32.9 MAJOR DEPRESSIVE DISORDER, SINGLE EPISOD 01/14/2017 SHAN BLACK APRN Ot F41.9 ANXIETY DISORDER, UNSPECIFIED 01/14/2017 SHAN BLACK APRN Ot F43.10 POST-TRAUMATIC STRESS DISORDER, UNSPECIF 01/14/2017 SHAN BLACK APRN Ot F90.9 ATTENTION-DEFICIT HYPERACTIVITY DISORDER 01/14/2017 SHAN BLACK APRN Ot G43.909 MIGRAINE, UNSP, NOT INTRACTABLE, WITHOUT 01/14/2017 SHAN BLACK APRN Ot I10 ESSENTIAL (PRIMARY) HYPERTENSION 01/14/2017 SHAN BLACK APRN Ot I25.2 OLD MYOCARDIAL INFARCTION 01/14/2017 SHAN BLACK APRN Ot J45.909 UNSPECIFIED ASTHMA, UNCOMPLICATED 01/14/2017 SHAN BLACK APRN Ot K21.9 GASTRO-ESOPHAGEAL REFLUX DISEASE WITHOUT 01/14/2017 SHAN BLACK APRN Ot N20.1 CALCULUS OF URETER 01/14/2017 SHAN BLACK APRN Ot R10.9 UNSPECIFIED ABDOMINAL PAIN 01/14/2017 SHAN BLACK APRN Ot Z98.890 OTHER SPECIFIED POSTPROCEDURAL STATES 01/18/2017 SUKUMAR CASE Ot E11.9 TYPE 2 DIABETES MELLITUS WITHOUT COMPLIC 01/18/2017 SUKUMAR CASE Ot E78.00 PURE HYPERCHOLESTEROLEMIA, UNSPECIFIED 01/18/2017 SUKUMAR CASE Ot F32.9 MAJOR DEPRESSIVE DISORDER, SINGLE EPISOD 01/18/2017 SUKUMAR CASE Ot F41.9 ANXIETY DISORDER, UNSPECIFIED 01/18/2017 SUKUMAR CASE Ot F43.10 POST-TRAUMATIC STRESS DISORDER, UNSPECIF 01/18/2017 SUKUMAR CASE Ot F90.9 ATTENTION-DEFICIT HYPERACTIVITY DISORDER 01/18/2017 SUKUMAR CASE Ot G43.909 MIGRAINE, UNSP, NOT INTRACTABLE, WITHOUT 01/18/2017 SUKUMAR CASE Ot I10 ESSENTIAL (PRIMARY) HYPERTENSION 01/18/2017 SUKUMAR CASE Ot I25.2 OLD MYOCARDIAL INFARCTION 01/18/2017 SUKUMAR CASE Ot J45.909 UNSPECIFIED ASTHMA, UNCOMPLICATED 01/18/2017 SUKUMAR CASE Ot K21.9 GASTRO-ESOPHAGEAL REFLUX DISEASE WITHOUT 01/18/2017 SUKUMAR CASE Ot N39.0 URINARY TRACT INFECTION, SITE NOT SPECIF 01/18/2017 SUKUMAR CASE Ot R10.9 UNSPECIFIED ABDOMINAL PAIN 01/18/2017 SUKUMAR CASE Ot Z87.19 PERSONAL HISTORY OF OTHER DISEASES OF TH 01/18/2017 SUKUMAR CASE Ot Z87.442 PERSONAL HISTORY OF URINARY CALCULI 03/05/2017 SHAN BLACK APRN Ot E11.9 TYPE 2 DIABETES MELLITUS WITHOUT COMPLIC 03/05/2017 SHAN BLACK APRN Ot E78.00 PURE HYPERCHOLESTEROLEMIA, UNSPECIFIED 03/05/2017 SHAN BLACK APRN Ot F32.9 MAJOR DEPRESSIVE DISORDER, SINGLE EPISOD 03/05/2017 SHAN BLACK APRN Ot F41.9 ANXIETY DISORDER, UNSPECIFIED 03/05/2017 SHAN BLACK APRN Ot F43.10 POST-TRAUMATIC STRESS DISORDER, UNSPECIF 03/05/2017 SHAN BLACK APRN Ot F90.9 ATTENTION-DEFICIT HYPERACTIVITY DISORDER 03/05/2017 SHAN BLACK APRN Ot G43.909 MIGRAINE, UNSP, NOT INTRACTABLE, WITHOUT 03/05/2017 SHAN BLACK APRN Ot I10 ESSENTIAL (PRIMARY) HYPERTENSION 03/05/2017 SHAN BLACK APRN Ot I25.2 OLD MYOCARDIAL INFARCTION 03/05/2017 SHAN BLACK APRN Ot J45.909 UNSPECIFIED ASTHMA, UNCOMPLICATED 03/05/2017 SHAN BLACK APRN Ot R10.13 EPIGASTRIC PAIN 03/05/2017 SHAN BLACK APRN Ot R11.2 NAUSEA WITH VOMITING, UNSPECIFIED 03/05/2017 SHAN BLACK APRN Ot Z87.442 PERSONAL HISTORY OF URINARY CALCULI 03/13/2017 LYNDSEY SOUZAP Ot E11.9 TYPE 2 DIABETES MELLITUS WITHOUT COMPLIC 03/13/2017 LYNDSEY SOUZA SPECIAL PROCEDURE TECHNOLOGIST Ot I10 ESSENTIAL (PRIMARY) HYPERTENSION 03/13/2017 LYNDSEY SOUZA SPECIAL PROCEDURE TECHNOLOGIST Ot M54.41 LUMBAGO WITH SCIATICA, RIGHT SIDE 03/13/2017 LYNDSEY SOUZA Ot M54.42 LUMBAGO WITH SCIATICA, LEFT SIDE 03/13/2017 LYNDSEY SOUZA Ot S39.92XA UNSPECIFIED INJURY OF LOWER BACK, INITIA 03/13/2017 LYNDSEY SOUZA Ot W01.0XXA FALL SAME LEV FROM SLIP/TRIP W/O STRIKE 03/13/2017 HARLEY LYNDSEY MORNEO Ot Y92.[address] IN [facility] (PRIVATE 03/13/2017 LYNDSEY SOUZA Ot Y93.E5 ACTIVITY, FLOOR MOPPING AND CLEANING 2017 SUKUMAR CASE Ot E11.9 TYPE 2 DIABETES MELLITUS WITHOUT COMPLIC 2017 SUKUMAR CASE Ot E78.00 PURE HYPERCHOLESTEROLEMIA, UNSPECIFIED 2017 SUKUMAR CASE Ot F32.9 MAJOR DEPRESSIVE DISORDER, SINGLE EPISOD 2017 SUKUMAR CASE Ot F41.9 ANXIETY DISORDER, UNSPECIFIED 2017 SUKUMAR CASE Ot F43.10 POST-TRAUMATIC STRESS DISORDER, UNSPECIF 2017 SUKUMAR CASE Ot F90.9 ATTENTION-DEFICIT HYPERACTIVITY DISORDER 2017 SUKUMAR CASE Ot G43.909 MIGRAINE, UNSP, NOT INTRACTABLE, WITHOUT 2017 SUKUMAR CASE Ot I10 ESSENTIAL (PRIMARY) HYPERTENSION 2017 SUKUMAR CASE Ot I25.2 OLD MYOCARDIAL INFARCTION 2017 SUKUMAR CASE Ot J45.909 UNSPECIFIED ASTHMA, UNCOMPLICATED 2017 SUKUMAR CASE Ot K21.9 GASTRO-ESOPHAGEAL REFLUX DISEASE WITHOUT 2017 SUKUMAR CASE Ot N39.0 URINARY TRACT INFECTION, SITE NOT SPECIF 2017 SUKUMAR CASE Ot R10.9 UNSPECIFIED ABDOMINAL PAIN 2017 SUKUMAR CASE Ot Z87.19 PERSONAL HISTORY OF OTHER DISEASES OF TH 2017 USKUMAR CASE Ot Z87.442 PERSONAL HISTORY OF URINARY CALCULI Procedures Code Description [place] [address] XRAY ELBOW L 2 VIEWS 05/06/2012 07767 XRAY SPINE 1 VIEW 07/08/2012 45573 XRAY CERVICAL SPINE, 2 OR 3 VIEWS 07/21/2012 24204 XRAY THORACIC SPINE 2 VIEWS 07/21/2012 22258 XRAY LUMBAR SPINE 2 OR 3 VIEWS 07/21/2012 64605 ROUTINE VENIPUNCTURE 08/02/2012 94750 CMP 08/02/2012 54018 LIPID PANEL 08/02/2012 [id number] GFR CALC (RESULT ONLY) 08/02/2012 43663 THERAPUTIC INJ SQ/IM 08/04/2012 J1885 TORADOL PER 15 MG, INJ KETOROLAC TROMETHAMINE 08/04/2012 57265 ROUTINE VENIPUNCTURE 08/26/2012 02851 BNP 08/26/2012 16322 CRP HS (CARDIO) 08/26/2012 51165 CARDIOVASCULAR STRESS TEST 08/27/2012 95173 EKG, TRACING (IN-HOUSE) 08/27/2012 97715 OXIMETRY 11/22/2012 77372 OXIMETRY 12/06/2012 13253 ROUTINE VENIPUNCTURE 04/05/2013 [id number] GFR CALC (RESULT ONLY) 04/05/2013 86858 CMP 04/05/2013 64913 LIPID PANEL 04/05/2013 54845 INFLUENZA A & B (IN-HOUSE) 06/21/2013 05989 XRAY FOOT LEFT 2 VIEWS 07/05/2013 62492 XRAY ABDOMEN 2 VIEWS 09/13/2013 73478 XRAY SHOULDER LEFT COMP 2 VIEWS 01/25/2014 47810 OXIMETRY 01/25/2014 36079 MRI EXTREMITY, UPPER LEFT, W /O CONTRAST 02/21/2014 79373 JOINT INJECTION- INTERMEDIATE JOINT 04/20/2014 J1040 DEPO MEDROL 80 MG INJ 04/20/2014 91024 XRAY LUMBAR SPINE 2 OR 3 VIEWS 09/20/2014 31985 MRI SPINE (LUMBAR) W/O CONTRAST 09/20/2014 75862 UA W/ CULTURE IF INDICATED 09/20/2014 Results Test Result Range Complete blood count (CBC) with automated white blood cell (WBC) differential - 01/06/16 21:00 Blood leukocytes automated count (number/volume) 9.3 10*3/uL 4.3-11.0 Blood erythrocytes automated count (number/volume) 4.57 10*6/uL 4.35-5.85 Venous blood hemoglobin measurement (mass/volume) 13.0 g/dL 11.5-16.0 Blood hematocrit (volume fraction) 38 % 35-52 Automated erythrocyte mean corpuscular volume 84 [foz_us] 80-99 Automated erythrocyte mean corpuscular hemoglobin (mass per erythrocyte) 28 pg 25-34 Automated erythrocyte mean corpuscular hemoglobin concentration measurement ( mass/volume) 34 g/dL 32-36 Automated erythrocyte distribution width ratio 13.2 % 10.0-14.5 Automated blood platelet count (count/volume) 245 10*3/uL 130-400 Automated blood platelet mean volume measurement 11.3 [foz_us] 7.4-10.4 Automated blood neutrophils/100 leukocytes 65 % 42-75 Automated blood lymphocytes/100 leukocytes 26 % 12-44 Blood monocytes/100 leukocytes 6 % 0-12 Automated blood eosinophils/100 leukocytes 3 % 0-10 Automated blood basophils/100 leukocytes 0 % 0-10 Blood neutrophils automated count (number/volume) 6.1 10*3 1.8-7.8 Blood lymphocytes automated count (number/volume) 2.5 10*3 1.0-4.0 Blood monocytes automated count (number/volume) 0.6 10*3 0.0-1.0 Automated eosinophil count 0.2 10*3/uL 0.0-0.3 Automated blood basophil count (count/volume) 0.0 10*3/uL 0.0-0.1 PT panel in platelet poor plasma by coagulation assay - 01/06/16 21:00 Prothrombin time (PT) in platelet poor plasma by coagulation assay 13.2 s 12.2-14.7 INR in platelet poor plasma or blood by coagulation assay 1.0 0.8-1.4 Activated partial thromboplastin time (aPTT) in platelet poor plasma bycoagulation assay - 01/06/16 21:00 Activated partial thromboplastin time (aPTT) in platelet poor plasma bycoagulation assay 22 s 24-35 Comprehensive metabolic panel - 01/06/16 21:00 Serum or plasma sodium measurement (moles/volume) 138 mmol/L 135-145 Serum or plasma potassium measurement (moles/volume) 3.8 mmol/L 3.6-5.0 Serum or plasma chloride measurement (moles/volume) 106 mmol/L 98-107 Carbon dioxide 22 mmol/L 21-32 Serum or plasma anion gap determination (moles/volume) 10 mmol/L 5-14 Serum or plasma urea nitrogen measurement (mass/volume) 9 mg/dL 7-18 Serum or plasma creatinine measurement (mass/volume) 0.81 mg/dL 0.60-1.30 Serum or plasma urea nitrogen/creatinine mass ratio 11 NRG Serum or plasma creatinine measurement with calculation of estimated glomerular filtration rate > NRG Serum or plasma glucose measurement (mass/volume) 106 mg/dL 70-105 Serum or plasma calcium measurement (mass/volume) 8.9 mg/dL 8.5-10.1 Serum or plasma total bilirubin measurement (mass/volume) 0.4 mg/dL 0.1-1.0 Serum or plasma alkaline phosphatase measurement (enzymatic activity/volume) 39 U/L 40-136 Serum or plasma aspartate aminotransferase measurement (enzymatic activity/ volume) 14 U/L 5-34 Serum or plasma alanine aminotransferase measurement (enzymatic activity/volume ) 16 U/L 0-55 Serum or plasma protein measurement (mass/volume) 6.3 g/dL 6.4-8.2 Serum or plasma albumin measurement (mass/volume) 3.9 g/dL 3.2-4.5 Magnesium - 01/06/16 21:00 Magnesium 1.9 mg/dL 1.8-2.4 Serum or plasma troponin i.cardiac measurement (mass/volume) - 01/06/16 21:00 Serum or plasma troponin i.cardiac measurement (mass/volume) < ng/ mL <0.30 Myoglobin, serum - 01/06/16 21:00 Myoglobin, serum 22.4 ng/mL 10.0-92.0 Lipase - 01/06/16 21:00 Lipase 31 U/L 8-78 Complete urinalysis with reflex to culture - 04/03/16 19:20 Urine color determination RED NRG Urine clarity determination BLOODY NRG Urine pH measurement by test strip 5 5-9 Specific gravity of urine by test strip 1.025 1.016- 1.022 Urine protein assay by test strip, semi-quantitative 3+ NEGATIVE Urine glucose detection by automated test strip NEGATIVE NEGATIVE Erythrocytes detection in urine sediment by light microscopy 5+ NEGATIVE Urine ketones detection by automated test strip 3+ NEGATIVE Urine nitrite detection by test strip NEGATIVE NEGATIVE Urine total bilirubin detection by test strip NEGATIVE NEGATIVE Urine urobilinogen measurement by automated test strip (mass/volume) NORMAL NORMAL Urine leukocyte esterase detection by dipstick 3+ NEGATIVE Automated urine sediment erythrocyte count by microscopy (number/high power field) TNTC NRG Automated urine sediment leukocyte count by microscopy (number/high power field ) [HPF] NRG Bacteria detection in urine sediment by light microscopy FEW NRG Crystals detection in urine sediment by light microscopy NONE NRG Casts detection in urine sediment by light microscopy NONE NRG Mucus detection in urine sediment by light microscopy NEGATIVE NRG Complete urinalysis with reflex to culture YES NRG Bacterial urine culture - 04/03/16 19:20 URINE CULTURE RESULTS 10,000/ML - 100,000/ML NRG Complete blood count (CBC) with automated white blood cell (WBC) differential - 04/03/16 19:45 Blood leukocytes automated count (number/volume) 9.7 10*3/uL 4.3-11.0 Blood erythrocytes automated count (number/volume) 4.39 10*6/uL 4.35-5.85 Venous blood hemoglobin measurement (mass/volume) 12.5 g/dL 11.5-16.0 Blood hematocrit (volume fraction) 37 % 35-52 Automated erythrocyte mean corpuscular volume 84 [foz_us] 80-99 Automated erythrocyte mean corpuscular hemoglobin (mass per erythrocyte) 29 pg 25-34 Automated erythrocyte mean corpuscular hemoglobin concentration measurement ( mass/volume) 34 g/dL 32-36 Automated erythrocyte distribution width ratio 14.0 % 10.0-14.5 Automated blood platelet count (count/volume) 182 10*3/uL 130-400 Automated blood platelet mean volume measurement 11.0 [foz_us] 7.4-10.4 Automated blood neutrophils/100 leukocytes 83 % 42-75 Automated blood lymphocytes/100 leukocytes 11 % 12-44 Blood monocytes/100 leukocytes 6 % 0-12 Automated blood eosinophils/100 leukocytes 0 % 0-10 Automated blood basophils/100 leukocytes 0 % 0-10 Blood neutrophils automated count (number/volume) 8.0 10*3 1.8-7.8 Blood lymphocytes automated count (number/volume) 1.0 10*3 1.0-4.0 Blood monocytes automated count (number/volume) 0.6 10*3 0.0-1.0 Automated eosinophil count 0.0 10*3/uL 0.0-0.3 Automated blood basophil count (count/volume) 0.0 10*3/uL 0.0-0.1 Blood lactic acid measurement (moles/volume) - 04/03/16 19:45 Blood lactic acid measurement (moles/volume) 1.0 mmol/L 0.5-2.0 PT panel in platelet poor plasma by coagulation assay - 04/03/16 19:45 Prothrombin time (PT) in platelet poor plasma by coagulation assay 14.6 s 12.2-14.7 INR in platelet poor plasma or blood by coagulation assay 1.2 0.8-1.4 Activated partial thromboplastin time (aPTT) in platelet poor plasma bycoagulation assay - 04/03/16 19:45 Activated partial thromboplastin time (aPTT) in platelet poor plasma bycoagulation assay 31 s 24-35 Comprehensive metabolic panel - 04/03/16 19:45 Serum or plasma sodium measurement (moles/volume) 136 mmol/L 135-145 Serum or plasma potassium measurement (moles/volume) 3.5 mmol/L 3.6-5.0 Serum or plasma chloride measurement (moles/volume) 104 mmol/L 98-107 Carbon dioxide 26 mmol/L 21-32 Serum or plasma anion gap determination (moles/volume) 6 mmol/L 5-14 Serum or plasma urea nitrogen measurement (mass/volume) 10 mg/dL 7-18 Serum or plasma creatinine measurement (mass/volume) 0.77 mg/dL 0.60-1.30 Serum or plasma urea nitrogen/creatinine mass ratio 13 NRG Serum or plasma creatinine measurement with calculation of estimated glomerular filtration rate > NRG Serum or plasma glucose measurement (mass/volume) 125 mg/dL 70-105 Serum or plasma calcium measurement (mass/volume) 8.7 mg/dL 8.5-10.1 Serum or plasma total bilirubin measurement (mass/volume) 0.8 mg/dL 0.1-1.0 Serum or plasma alkaline phosphatase measurement (enzymatic activity/volume) 46 U/L 40-136 Serum or plasma aspartate aminotransferase measurement (enzymatic activity/ volume) 17 U/L 5-34 Serum or plasma alanine aminotransferase measurement (enzymatic activity/volume ) 20 U/L 0-55 Serum or plasma protein measurement (mass/volume) 7.2 g/dL 6.4-8.2 Serum or plasma albumin measurement (mass/volume) 4.0 g/dL 3.2-4.5 Bacterial blood culture - 04/03/16 19:45 Bacterial blood culture NG NRG Bacterial blood culture - 04/03/16 20:53 Bacterial blood culture NG NRG Complete blood count (CBC) with automated white blood cell (WBC) differential - 04/04/16 05:07 Blood leukocytes automated count (number/volume) 7.5 10*3/uL 4.3-11.0 Blood erythrocytes automated count (number/volume) 4.13 10*6/uL 4.35-5.85 Venous blood hemoglobin measurement (mass/volume) 11.7 g/dL 11.5-16.0 Blood hematocrit (volume fraction) 35 % 35-52 Automated erythrocyte mean corpuscular volume 84 [foz_us] 80-99 Automated erythrocyte mean corpuscular hemoglobin (mass per erythrocyte) 28 pg 25-34 Automated erythrocyte mean corpuscular hemoglobin concentration measurement ( mass/volume) 34 g/dL 32-36 Automated erythrocyte distribution width ratio 14.0 % 10.0-14.5 Automated blood platelet count (count/volume) 166 10*3/uL 130-400 Automated blood platelet mean volume measurement 11.1 [foz_us] 7.4-10.4 Automated blood neutrophils/100 leukocytes 72 % 42-75 Automated blood lymphocytes/100 leukocytes 18 % 12-44 Blood monocytes/100 leukocytes 9 % 0-12 Automated blood eosinophils/100 leukocytes 1 % 0-10 Automated blood basophils/100 leukocytes 0 % 0-10 Blood neutrophils automated count (number/volume) 5.4 10*3 1.8-7.8 Blood lymphocytes automated count (number/volume) 1.4 10*3 1.0-4.0 Blood monocytes automated count (number/volume) 0.7 10*3 0.0-1.0 Automated eosinophil count 0.1 10*3/uL 0.0-0.3 Automated blood basophil count (count/volume) 0.0 10*3/uL 0.0-0.1 Sputum Gram stain - 04/04/16 05:40 GRAM STAIN SPUTUM AND MIXED BACTERIAL BRENNON NRG Bacterial sputum culture - 04/04/16 05:40 Bacterial sputum culture NORMAL NRG Complete blood count (CBC) with automated white blood cell (WBC) differential - 01/14/17 15:11 Blood leukocytes automated count (number/volume) 8.2 10*3/uL 4.3-11.0 Blood erythrocytes automated count (number/volume) 4.38 10*6/uL 4.35-5.85 Venous blood hemoglobin measurement (mass/volume) 12.7 g/dL 11.5-16.0 Blood hematocrit (volume fraction) 39 % 35-52 Automated erythrocyte mean corpuscular volume 88 [foz_us] 80-99 Automated erythrocyte mean corpuscular hemoglobin (mass per erythrocyte) 29 pg 25-34 Automated erythrocyte mean corpuscular hemoglobin concentration measurement ( mass/volume) 33 g/dL 32-36 Automated erythrocyte distribution width ratio 13.7 % 10.0-14.5 Automated blood platelet count (count/volume) 228 10*3/uL 130-400 Automated blood platelet mean volume measurement 11.3 [foz_us] 7.4-10.4 Automated blood neutrophils/100 leukocytes 60 % 42-75 Automated blood lymphocytes/100 leukocytes 28 % 12-44 Blood monocytes/100 leukocytes 8 % 0-12 Automated blood eosinophils/100 leukocytes 4 % 0-10 Automated blood basophils/100 leukocytes 0 % 0-10 Blood neutrophils automated count (number/volume) 5.0 10*3 1.8-7.8 Blood lymphocytes automated count (number/volume) 2.3 10*3 1.0-4.0 Blood monocytes automated count (number/volume) 0.7 10*3 0.0-1.0 Automated eosinophil count 0.3 10*3/uL 0.0-0.3 Automated blood basophil count (count/volume) 0.0 10*3/uL 0.0-0.1 Comprehensive metabolic panel - 01/14/17 15:11 Serum or plasma sodium measurement (moles/volume) 139 mmol/L 135-145 Serum or plasma potassium measurement (moles/volume) 4.0 mmol/L 3.6-5.0 Serum or plasma chloride measurement (moles/volume) 104 mmol/L 98-107 Carbon dioxide 25 mmol/L 21-32 Serum or plasma anion gap determination (moles/volume) 10 mmol/L 5-14 Serum or plasma urea nitrogen measurement (mass/volume) 11 mg/dL 7-18 Serum or plasma creatinine measurement (mass/volume) 0.80 mg/dL 0.60-1.30 Serum or plasma urea nitrogen/creatinine mass ratio 14 NRG Serum or plasma creatinine measurement with calculation of estimated glomerular filtration rate > NRG Serum or plasma glucose measurement (mass/volume) 125 mg/dL 70-105 Serum or plasma calcium measurement (mass/volume) 9.1 mg/dL 8.5-10.1 Serum or plasma total bilirubin measurement (mass/volume) 0.7 mg/dL 0.1-1.0 Serum or plasma alkaline phosphatase measurement (enzymatic activity/volume) 50 U/L 40-136 Serum or plasma aspartate aminotransferase measurement (enzymatic activity/ volume) 24 U/L 5-34 Serum or plasma alanine aminotransferase measurement (enzymatic activity/volume ) 23 U/L 0-55 Serum or plasma protein measurement (mass/volume) 7.3 g/dL 6.4-8.2 Serum or plasma albumin measurement (mass/volume) 3.8 g/dL 3.2-4.5 Complete urinalysis with reflex to culture - 01/14/17 16:11 Urine color determination YELLOW NRG Urine clarity determination CLEAR NRG Urine pH measurement by test strip 6 5-9 Specific gravity of urine by test strip 1.010 1.016- 1.022 Urine protein assay by test strip, semi-quantitative NEGATIVE NEGATIVE Urine glucose detection by automated test strip NEGATIVE NEGATIVE Erythrocytes detection in urine sediment by light microscopy 5+ NEGATIVE Urine ketones detection by automated test strip NEGATIVE NEGATIVE Urine nitrite detection by test strip NEGATIVE NEGATIVE Urine total bilirubin detection by test strip NEGATIVE NEGATIVE Urine urobilinogen measurement by automated test strip (mass/volume) NORMAL NORMAL Urine leukocyte esterase detection by dipstick NEGATIVE NEGATIVE Automated urine sediment erythrocyte count by microscopy (number/high power field) [HPF] NRG Automated urine sediment leukocyte count by microscopy (number/high power field ) RARE NRG Bacteria detection in urine sediment by light microscopy TRACE NRG Squamous epithelial cells detection in urine sediment by light microscopy 2-5 NRG Crystals detection in urine sediment by light microscopy NONE NRG Casts detection in urine sediment by light microscopy NONE NRG Mucus detection in urine sediment by light microscopy NEGATIVE NRG Complete urinalysis with reflex to culture NO NRG Complete urinalysis with reflex to culture - 01/18/17 11:30 Urine color determination YELLOW NRG Urine clarity determination VERY CLOUDY NRG Urine pH measurement by test strip 5 5-9 Specific gravity of urine by test strip 1.020 1.016- 1.022 Urine protein assay by test strip, semi-quantitative 2+ NEGATIVE Urine glucose detection by automated test strip 3+ NEGATIVE Erythrocytes detection in urine sediment by light microscopy 1+ NEGATIVE Urine ketones detection by automated test strip NEGATIVE NEGATIVE Urine nitrite detection by test strip POSITIVE NEGATIVE Urine total bilirubin detection by test strip NEGATIVE NEGATIVE Urine urobilinogen measurement by automated test strip (mass/volume) NORMAL NORMAL Urine leukocyte esterase detection by dipstick 3+ NEGATIVE Automated urine sediment erythrocyte count by microscopy (number/high power field) NONE NRG Automated urine sediment leukocyte count by microscopy (number/high power field ) > [HPF] NRG Bacteria detection in urine sediment by light microscopy LARGE NRG Squamous epithelial cells detection in urine sediment by light microscopy 10-25 NRG Crystals detection in urine sediment by light microscopy NONE NRG Casts detection in urine sediment by light microscopy NONE NRG Mucus detection in urine sediment by light microscopy NEGATIVE NRG Complete urinalysis with reflex to culture YES NRG Bacterial urine culture - 01/18/17 11:30 Bacterial urine culture [id number] NRG COLONY COUNT 10,000/ML - 100,000/ML NRG FTX;REPORTABLE SENSITIVITY REPORTED 01/21/17 9:00 NR Bacterial susceptibility panel - 01/18/17 11:30 Gentamicin susceptibility test by minimum inhibitory concentration < = NRG Trimethoprim/sulfamethoxazole susceptibility test by minimum inhibitoryconcentration <= NRG Ampicillin susceptibility test by minimum inhibitory concentration > = NRG Tobramycin susceptibility test by minimum inhibitory concentration < = NRG Cefazolin susceptibility test by minimum inhibitory concentration > = NRG Ceftriaxone susceptibility test by minimum inhibitory concentration 16 NRG Ampicillin/sulbactam susceptibility test by minimum inhibitory concentration >= NRG Piperacillin/tazobactam susceptibility test by minimum inhibitory concentration 8 NRG Ciprofloxacin susceptibility test by minimum inhibitory concentration <= NRG Meropenem susceptibility test by minimum inhibitory concentration < = NRG Nitrofurantoin susceptibility test by minimum inhibitory concentration <= NRG Aztreonam susceptibility test by minimum inhibitory concentration 8 NRG Extended spectrum beta lactamase (ESBL) producing bacteria susceptibility test by minimum inhibitory concentration - NR Complete blood count (CBC) with automated white blood cell (WBC) differential - 03/05/17 21:05 Blood leukocytes automated count (number/volume) 12.0 10*3/uL 4.3-11.0 Blood erythrocytes automated count (number/volume) 4.88 10*6/uL 4.35-5.85 Venous blood hemoglobin measurement (mass/volume) 13.9 g/dL 11.5-16.0 Blood hematocrit (volume fraction) 42 % 35-52 Automated erythrocyte mean corpuscular volume 86 [foz_us] 80-99 Automated erythrocyte mean corpuscular hemoglobin (mass per erythrocyte) 29 pg 25-34 Automated erythrocyte mean corpuscular hemoglobin concentration measurement ( mass/volume) 33 g/dL 32-36 Automated erythrocyte distribution width ratio 13.7 % 10.0-14.5 Automated blood platelet count (count/volume) 268 10*3/uL 130-400 Automated blood platelet mean volume measurement 11.2 [foz_us] 7.4-10.4 Automated blood neutrophils/100 leukocytes 70 % 42-75 Automated blood lymphocytes/100 leukocytes 22 % 12-44 Blood monocytes/100 leukocytes 6 % 0-12 Automated blood eosinophils/100 leukocytes 1 % 0-10 Automated blood basophils/100 leukocytes 0 % 0-10 Blood neutrophils automated count (number/volume) 8.4 10*3 1.8-7.8 Blood lymphocytes automated count (number/volume) 2.7 10*3 1.0-4.0 Blood monocytes automated count (number/volume) 0.7 10*3 0.0-1.0 Automated eosinophil count 0.2 10*3/uL 0.0-0.3 Automated blood basophil count (count/volume) 0.0 10*3/uL 0.0-0.1 Complete urinalysis with reflex to culture - 03/05/17 21:05 Urine color determination KATHLEEN NRG Urine clarity determination CLEAR NRG Urine pH measurement by test strip 5 5-9 Specific gravity of urine by test strip 1.025 1.016- 1.022 Urine protein assay by test strip, semi-quantitative 2+ NEGATIVE Urine glucose detection by automated test strip NEGATIVE NEGATIVE Erythrocytes detection in urine sediment by light microscopy 1+ NEGATIVE Urine ketones detection by automated test strip 1+ NEGATIVE Urine nitrite detection by test strip POSITIVE NEGATIVE Urine total bilirubin detection by test strip 1+ NEGATIVE Urine urobilinogen measurement by automated test strip (mass/volume) 1 mg/dL NORMAL Urine leukocyte esterase detection by dipstick 3+ NEGATIVE Automated urine sediment erythrocyte count by microscopy (number/high power field) RARE NRG Automated urine sediment leukocyte count by microscopy (number/high power field ) [HPF] NRG Bacteria detection in urine sediment by light microscopy FEW NRG Squamous epithelial cells detection in urine sediment by light microscopy 25-50 NRG Crystals detection in urine sediment by light microscopy NONE NRG Casts detection in urine sediment by light microscopy NONE NRG Mucus detection in urine sediment by light microscopy SMALL NRG Complete urinalysis with reflex to culture YES [facility] Comprehensive metabolic panel - 03/05/17 21:05 Serum or plasma sodium measurement (moles/volume) 138 mmol/L 135-145 Serum or plasma potassium measurement (moles/volume) 3.3 mmol/L 3.6-5.0 Serum or plasma chloride measurement (moles/volume) 106 mmol/L 98-107 Carbon dioxide 21 mmol/L 21-32 Serum or plasma anion gap determination (moles/volume) 11 mmol/L 5-14 Serum or plasma urea nitrogen measurement (mass/volume) 7 mg/dL 7-18 Serum or plasma creatinine measurement (mass/volume) 0.88 mg/dL 0.60-1.30 Serum or plasma urea nitrogen/creatinine mass ratio 8 NRG Serum or plasma creatinine measurement with calculation of estimated glomerular filtration rate > NRG Serum or plasma glucose measurement (mass/volume) 196 mg/dL 70-105 Serum or plasma calcium measurement (mass/volume) 8.7 mg/dL 8.5-10.1 Serum or plasma total bilirubin measurement (mass/volume) 0.6 mg/dL 0.1-1.0 Serum or plasma alkaline phosphatase measurement (enzymatic activity/volume) 46 U/L 40-136 Serum or plasma aspartate aminotransferase measurement (enzymatic activity/ volume) 26 U/L 5-34 Serum or plasma alanine aminotransferase measurement (enzymatic activity/volume ) 23 U/L 0-55 Serum or plasma protein measurement (mass/volume) 7.0 g/dL 6.4-8.2 Serum or plasma albumin measurement (mass/volume) 3.8 g/dL 3.2-4.5 Lipase - 03/05/17 21:05 Lipase 32 U/L 8-78 Bacterial urine culture - 03/05/17 21:05 URINE CULTURE RESULTS <10,000/ML [facility] LIPID PANEL - 08/13/17 12:18 CHOLESTEROL, TOTAL 145 mg/dL <200 HDL CHOLESTEROL 41 mg/dL >50 TRIGLYCERIDES 182 mg/dL <150 LDL-CHOLESTEROL 76 mg/dL (calc) NR CHOL/HDLC RATIO 3.5 (calc) <5.0 NON HDL CHOLESTEROL 104 mg/dL (calc) <130 CMP - 03/08/18 12:18 GLUCOSE 249 mg/dL 65-99 UREA NITROGEN (BUN) 10 mg/dL 7-25 CREATININE 0.66 mg/dL 0.50-1.10 eGFR NON-AFR. [place]IZ[place] 104 mL/min/1.73m2 > OR=60 eGFR 120 mL/min/1.73m2 > OR=60 BUN/CREATININE RATIO NOT APPLICABLE (calc) 6-22 SODIUM 139 mmol/L 135-146 POTASSIUM 3.9 mmol/L 3.5-5.3 CHLORIDE 106 mmol/L 98-110 CARBON DIOXIDE 24 mmol/L 20-31 CALCIUM 8.7 mg/dL 8.6-10.2 PROTEIN, TOTAL 6.8 g/dL 6.1-8.1 ALBUMIN 3.9 g/dL 3.6-5.1 GLOBULIN 2.9 g/dL (calc) 1.9-3.7 ALBUMIN/GLOBULIN RATIO 1.3 (calc) 1.0-2.5 BILIRUBIN, TOTAL 0.5 mg/dL 0.2-1.2 ALKALINE PHOSPHATASE 44 U/L 33-115 AST 22 U/L 10-35 ALT 29 U/L 6-29 CBC - 08/13/17 12:18 WHITE BLOOD CELL COUNT 7.2 Thousand/uL 3.8-10.8 RED BLOOD CELL COUNT 4.50 Million/uL 3.80-5.10 HEMOGLOBIN 13.0 g/dL 11.7-15.5 HEMATOCRIT 39.7 % 35.0-45.0 MCV 88.2 fL 80.0-100.0 MCH 28.9 pg 27.0-33.0 MCHC 32.7 g/dL 32.0-36.0 RDW 14.0 % 11.0-15.0 PLATELET COUNT 191 Thousand/uL 140-400 MPV 11.5 fL 7.5-12.5 ABSOLUTE NEUTROPHILS 4745 cells/uL 1170-8458 ABSOLUTE LYMPHOCYTES 1901 cells/uL 850-3900 ABSOLUTE MONOCYTES 331 cells/uL 200-950 ABSOLUTE EOSINOPHILS 180 cells/uL 15-500 ABSOLUTE BASOPHILS 43 cells/uL 0-200 NEUTROPHILS 65.9 % NRG LYMPHOCYTES 26.4 % NRG MONOCYTES 4.6 % NRG EOSINOPHILS 2.5 % NRG BASOPHILS 0.6 % NRG TSH - 08/13/17 12:18 TSH 1.56 mIU/L NRG CMP - 11/11/17 09:08 GLUCOSE 154 mg/dL 65-99 UREA NITROGEN (BUN) 9 mg/dL 7-25 CREATININE 0.70 mg/dL 0.50-1.10 eGFR NON-AFR. [place] 102 mL/min/1.73m2 > OR=60 eGFR 118 mL/min/1.73m2 > OR=60 BUN/CREATININE RATIO NOT APPLICABLE (calc) 6-22 SODIUM 139 mmol/L 135-146 POTASSIUM 4.3 mmol/L 3.5-5.3 CHLORIDE 104 mmol/L 98-110 CARBON DIOXIDE 29 mmol/L 20-31 CALCIUM 8.9 mg/dL 8.6-10.2 PROTEIN, TOTAL 6.5 g/dL 6.1-8.1 ALBUMIN 3.7 g/dL 3.6-5.1 GLOBULIN 2.8 g/dL (calc) 1.9-3.7 ALBUMIN/GLOBULIN RATIO 1.3 (calc) 1.0-2.5 BILIRUBIN, TOTAL 0.5 mg/dL 0.2-1.2 ALKALINE PHOSPHATASE 41 U/L 33-115 AST 25 U/L 10-35 ALT 25 U/L 6-29 TSH - 11/11/17 09:08 TSH 2.15 mIU/L [facility] BNP - 11/11/17 09:11 B TYPE NATRIURETIC PEPTIDE (BNP) 17 pg/mL <100 Complete blood count (CBC) with automated white blood cell (WBC) differential - 06/19/18 13:19 Blood leukocytes automated count (number/volume) 9.8 10*3/uL 4.3-11.0 Blood erythrocytes automated count (number/volume) 4.51 10*6/uL 4.35-5.85 Venous blood hemoglobin measurement (mass/volume) 12.4 g/dL 11.5-16.0 Blood hematocrit (volume fraction) 38 % 35-52 Automated erythrocyte mean corpuscular volume 85 [foz_us] 80-99 Automated erythrocyte mean corpuscular hemoglobin (mass per erythrocyte) 28 pg 25-34 Automated erythrocyte mean corpuscular hemoglobin concentration measurement ( mass/volume) 32 g/dL 32-36 Automated erythrocyte distribution width ratio 15.6 % 10.0-14.5 Automated blood platelet count (count/volume) 236 10*3/uL 130-400 Automated blood platelet mean volume measurement 11.7 [foz_us] 7.4-10.4 Automated blood neutrophils/100 leukocytes 67 % 42-75 Automated blood lymphocytes/100 leukocytes 24 % 12-44 Blood monocytes/100 leukocytes 6 % 0-12 Automated blood eosinophils/100 leukocytes 4 % 0-10 Automated blood basophils/100 leukocytes 0 % 0-10 Blood neutrophils automated count (number/volume) 6.6 10*3 1.8-7.8 Blood lymphocytes automated count (number/volume) 2.3 10*3 1.0-4.0 Blood monocytes automated count (number/volume) 0.6 10*3 0.0-1.0 Automated eosinophil count 0.4 10*3/uL 0.0-0.3 Automated blood basophil count (count/volume) 0.0 10*3/uL 0.0-0.1 Encounters ACCT No. Visit Date/Time Discharge Status Pt. Type Provider Facility Loc./Unit Complaint [id number] 09/20/2014 09:43:00 09/20/2014 23:59:59 CLS Outpatient LOUIS GARVEY APRN [id number] 08/23/2014 17:49:00 08/23/2014 23:59:59 CLS Outpatient ARISTEO ARAYA APRN [id number] 06/22/2014 13:52:00 06/22/2014 23:59:59 CLS Outpatient RUBINA HARLEY APRN [id number] 06/06/2014 08:52:00 06/06/2014 23:59:59 CLS Outpatient LEO BENITEZ MD [id number] 04/20/2014 13:59:00 04/20/2014 23:59:59 CLS Outpatient RUBINA HARLEY APRN [id number] 02/21/2014 14:28:00 02/21/2014 23:59:59 CLS Outpatient STANFORD CAAL DO [id number] 01/25/2014 14:15:00 01/25/2014 23:59:59 CLS Outpatient LOUIS GARVEY APRN [id number] 01/11/2014 10:56:00 01/11/2014 23:59:59 CLS Outpatient STANFORD CAAL DO [id number] 11/15/2013 16:22:00 11/15/2013 23:59:59 CLS Outpatient STANFORD CAAL DO [id number] 09/13/2013 10:27:00 09/13/2013 23:59:59 CLS Outpatient CAAL DOSTANFORD [id number] 09/06/2013 09:35:00 09/06/2013 23:59:59 CLS Outpatient LOUIS GARVEY APRN [id number] 07/05/2013 14:37:00 07/05/2013 23:59:59 CLS Outpatient CAAL DOSTANFORD [id number] 06/22/2013 09:51:00 06/22/2013 23:59:59 CLS Outpatient CAAL DOSTANFORD [id number] 04/29/2013 10:37:00 04/29/2013 23:59:59 CLS Outpatient CAAL DOSTANFORD [id number] 04/28/2013 13:11:00 04/28/2013 23:59:59 CLS Outpatient CAAL DOSTANFORD [id number] 04/05/2013 11:27:00 04/05/2013 23:59:59 CLS Outpatient CAAL DOSTANFORD [id number] 03/04/2013 10:00:00 03/04/2013 23:59:59 CLS Outpatient CAAL DOSTANFORD [id number] 01/14/2013 00:00:00 01/14/2013 23:59:59 CLS Outpatient CAAL DOSTANFORD [id number] 08/27/2012 09:15:00 08/27/2012 23:59:59 CLS Outpatient CAAL DOSTANFORD [id number] 08/26/2012 11:06:00 08/26/2012 23:59:59 CLS Outpatient [id number] 08/18/2012 18:10:00 08/18/2012 23:59:59 CLS Outpatient [id number] 08/04/2012 17:27:00 08/04/2012 23:59:59 CLS Outpatient CAAL DOSTANFORD [id number] 08/02/2012 09:43:00 08/02/2012 23:59:59 CLS Outpatient CAAL DOSTANFORD [id number] 07/31/2012 09:14:00 07/31/2012 23:59:59 CLS Outpatient [id number] 07/08/2012 08:39:00 07/08/2012 23:59:59 CLS Outpatient CAAL DOSTANFORD [id number] 07/01/2012 14:28:00 07/01/2012 23:59:59 CLS Outpatient [id number] 05/06/2012 15:01:00 05/06/2012 23:59:59 CLS Outpatient [id number] 04/07/2012 18:18:00 04/07/2012 23:59:59 CLS Outpatient STANFORD CAAL DO [id number] 12/06/2012 11:39:00 Document Registration [id number] 11/17/2012 09:44:00 Document Registration [id number] 11/13/2012 13:01:00 Document Registration [id number] 03/12/2017 09:30:00 03/12/2017 23:59:59 CLS Preadmit MARSHALARISTEO [employer] [facility] RAD R10.84 [id number] 03/05/2017 20:36:00 03/05/2017 23:00:00 DIS Emergency SHAN BLACK APRN [facility] ER ABDOMINAL PAIN,NAUSEA, VOMITING [id number] 01/18/2017 10:33:00 01/18/2017 13:10:00 DIS Outpatient SUKUMAR CASE [facility] ER KIDNEY STONE [id number] 01/14/2017 14:53:00 01/14/2017 17:09:00 DIS Emergency SHAN BLACK APRN [facility] ER SIDE,BACK PAIN [id number] 11/13/2016 11:25:00 11/13/2016 15:26:00 DIS Emergency HARLEY LYNDSEY TIFFANIE [facility] ER FALL-BACK PAIN [id number] 04/03/2016 21:10:00 04/04/2016 15:00:00 DIS Inpatient NICOLA BRICENO, TAYLOR Hwang [facility] 4TH PNEUMONIA LLL, UTI, SEPSIS [id number] 01/06/2016 20:40:00 01/06/2016 22:25:00 DIS Outpatient LENNY BOYKIN MD [facility] ER CHEST PAIN [id number] 01/05/2016 13:31:00 01/05/2016 15:25:00 DIS Emergency SHAN BLACK APRN [facility] ER FALL [id number] 10/17/2015 17:12:00 10/17/2015 19:20:00 DIS Outpatient SUKUMAR CASE [facility] ER ABD PAIN [id number] 02/17/2015 18:13:00 02/17/2015 20:11:00 DIS Emergency ILYA ELLIS MD [facility] ER COUGH/DIFF BREATHING [id number] 11/03/2014 23:18:00 11/04/2014 01:41:00 DIS Emergency LENNY BOYKIN MD [facility] ER N/V/D [id number] 10/02/2014 10:30:00 10/02/2014 23:59:59 CLS Outpatient LOUIS GARVEY APRN [facility] RAD BACK PAIN [id number] 07/12/2014 02:02:00 07/12/2014 03:16:00 DIS Emergency ARISTEO SOLANO DO [facility] ER ISSUES WITH NEW MEDS [id number] 03/23/2014 07:38:00 03/23/2014 23:59:59 CLS Outpatient LENNY CHAUHAN [facility] RAD ARM PAIN [id number] 10/14/2013 08:29:00 10/14/2013 11:31:00 DIS Emergency KENZIE BRICENO, JAYDE Rouse [facility] ER RIGHT SIDE PAIN [id number] 07/30/2013 09:27:00 07/30/2013 12:36:00 DIS Emergency MIHIR BLANCHARD MD [facility] ER CHEST PAIN [id number] 03/14/2013 01:43:00 03/14/2013 04:05:00 DIS Emergency [id number] 11/23/2012 10:26:00 11/23/2012 18:45:00 DIS Outpatient [id number] 10/12/2012 07:39:00 10/12/2012 23:59:59 CLS Outpatient [id number] 06/19/2018 13:14:00 ACT Emergency TRACY ZARAGOZA [facility] ER NAUSEA [id number] 05/21/2018 14:00:00 05/21/2018 23:59:59 CLS Outpatient ARISTEO ARAYA APRN [facility] [id number] 11/11/2017 08:40:00 Document Registration [id number] 08/13/2017 11:40:00 Document Registration
--- NOTE | 2018-06-19 14:12 | Diagnostic Imaging Report ---
INDICATION: Right-sided flank pain. COMPARISON: CT abdomen and pelvis performed concurrently. FINDINGS: There is a 3 mm calculus in the lower right hemipelvis which should correspond to the distal right UVJ calculus seen on the CT performed concurrently. Nonobstructive bowel gas pattern. No free intraperitoneal air. Normal regional skeleton. IMPRESSION: The 3 mm distal right ureteral stone at the UVJ is better evaluated on CT. Dictated by: Dictated on workstation # [id number]
--- NOTE | 2018-06-19 14:25 | ED Abdominal Pain ---
General Chief Complaint: Abdominal/GI Problems Stated Complaint: NAUSEA Nursing Triage Note: ARRIVED VIA EMS. COMPLAINTS OF RIGHT SIDED FLANK PAIN STARTING AT 0900 TODAY. HX OF KIDNEY STONES. Sepsis Screen: No Definite Risk Source of Information: Patient Exam Limitations: No Limitations History of Present Illness Date Seen by Provider: Jun 19, 2018 Time Seen by Provider: 13:15 Initial Comments 48-year-old female who is brought into the emergency room by [facility] with complaints of right-sided flank pain that started at 9 this morning. She did have nausea and vomiting in route to the hospital in which they gave 4 mg of Zofran. She was vomiting on arrival to the emergency room. She reports she has a history of kidney stones and this feels very similar to recent episodes. Timing/Duration: 4-6 Hours Severity/Quality: Sharp Location: Flank Radiation: No Radiation Activities at Onset: None Associated Symptoms: Nausea/Vomiting Allergies and Home Medications Allergies Coded Allergies: lisinopril (Verified Allergy, Mild, COUGH, 03/05/17) montelukast (Verified Allergy, Unknown, 03/05/17) montelukast sodium (Verified Adverse Reaction, Unknown, 03/05/17) Uncoded Allergies: METALS (Allergy, Unknown, 07/12/14) Home Medications Aripiprazole 5 Mg Tablet, 2.5 MG PO DAILY, (Reported) TAKES 1/2 OF A (5 MG) TABLET Cephalexin 500 Mg Capsule, 500 MG PO TID Prescribed by: SUKUMAR CHEN on 01/18/17 1238 Ciprofloxacin HCl 500 Mg Tablet, 500 MG PO BID Prescribed by: SHAN BLACK on 03/05/17 2155 Cyclobenzaprine HCl 10 Mg Tablet, 10 MG PO Q8H PRN for SPASMS Prescribed by: LYNDSEY SOUZA on 11/13/16 1410 Duloxetine HCl 60 Mg Capsule.dr, 60 MG PO DAILY, (Reported) Hydrocodone Bit/Acetaminophen 1 Tab Tab, 1 EACH PO Q4-6HR PRN for PAIN-MODERATE Prescribed by: TRACY ZARAGOZA on 06/19/18 1429 Hydrocodone/Acetaminophen 1 Each Tablet, 1 EACH PO Q4H PRN for PAIN-MODERATE Prescribed by: SHAN BLACK on 01/14/17 1704 Levofloxacin 750 Mg Tablet, 750 MG PO DAILY Prescribed by: TAYLOR PETERSEN on 04/04/16 1421 Ondansetron HCl 4 Mg Tab, 4 MG PO Q4H PRN for NAUSEA/VOMITING-1ST LINE Prescribed by: TRACY ZARAGOZA on 06/19/18 1429 Pregabalin 50 Mg Cap, 100 MG PO TID, (Reported) TAKES 2 (50 MG) CAPSULES Sulfamethoxazole/Trimethoprim 1 Each Tablet, 1 EACH PO BID Prescribed by: TRACY ZARAGOZA on 06/19/18 1431 Tamsulosin HCl 0.4 Mg Cap, 0.4 MG PO DAILY Prescribed by: SHAN BLACK on 01/14/17 1704 Tramadol HCl 50 Mg Tablet, 50 MG PO Q8H Prescribed by: LYNDSEY SOUZA on 11/13/16 1410 Patient Home Medication List Home Medication List Reviewed: Yes Review of Systems Review of Systems Constitutional: no symptoms reported, see HPI Gastrointestinal: See HPI, Nausea, Vomiting Genitourinary: See HPI, Flank Pain All Other Systems Reviewed Negative Unless Noted: Yes Past Blcuzun-Oyqvyz-Ahfucj Hx Past Med/Social Hx: Reviewed Nursing Past Med/Soc Hx Patient Social History 2nd Hand Smoke Exposure: No Recent Foreign Travel: No Contact w/Someone Who Travel: No Recent Infectious Disease Expo: No Recent Hopitalizations: No Immunizations Up To Date Tetanus Booster (TDap): More than 5yrs Seasonal Allergies Seasonal Allergies: No Past Medical History Surgeries: Yes (D&C, R KNEE, ) Cardiac, Eye Surgery, Orthopedic Respiratory: Yes Asthma Cardiac: Yes Heart Attack, High Cholesterol, Hypertension Neurological: Yes Headaches /Migraines 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 No Pertinent Family Hx Physical Exam Vital Signs Vital Signs - First Documented 06/19/18 13:20 Temp 98.0 Pulse 81 Resp 16 B/P (MAP) 172/109 (130) Pulse Ox 100 O2 Delivery Room Air Capillary Refill : Less Than 3 Seconds Height/Weight/BMI Height: 5'3.00" Weight: 200lbs. 0.0oz. [id number]; 36.0 BMI Method:Estimated General Appearance: WD/WN, no apparent distress Respiratory: chest non-tender, lungs clear, normal breath sounds, no respiratory distress, no accessory muscle use Cardiovascular: normal peripheral pulses, regular rate, rhythm, no edema, no gallop, no JVD, no murmur Gastrointestinal: normal bowel sounds, non tender, soft, no organomegaly, no pulsatile mass Extremities: normal capillary refill Neurologic/Psychiatric: alert, normal mood/affect, oriented x 3 Skin: normal color, warm/dry Lymphatic: no adenopathy Progress/Results/Core Measures Results/Orders Lab Results Laboratory Tests Test 06/19/18 13:14 06/19/18 13:19 06/19/18 14:15 Range/Units Lab Scanned Report Referred Lab Report [id number] White Blood Count 9.8 4.3-11.0 10^3/uL Red Blood Count 4.51 4.35-5.85 10^6/uL Hemoglobin 12.4 11.5-16.0 G/DL Hematocrit 38 35-52 % Mean Corpuscular Volume 85 80-99 FL Mean Corpuscular Hemoglobin 28 25-34 PG Mean Corpuscular Hemoglobin Concent 32 32-36 G/DL Red Cell Distribution Width 15.6 H 10.0-14.5 % Platelet Count 236 130-400 10^3/uL Mean Platelet Volume 11.7 H 7.4-10.4 FL Neutrophils (%) (Auto) 67 42-75 % Lymphocytes (%) (Auto) 24 12-44 % Monocytes (%) (Auto) 6 0-12 % Eosinophils (%) (Auto) 4 0-10 % Basophils (%) (Auto) 0 0-10 % Neutrophils # (Auto) 6.6 1.8-7.8 X 10^3 Lymphocytes # (Auto) 2.3 1.0-4.0 X 10^3 Monocytes # (Auto) 0.6 0.0-1.0 X 10^3 Eosinophils # (Auto) 0.4 H 0.0-0.3 10^3/uL Basophils # (Auto) 0.0 0.0-0.1 10^3/uL Sodium Level 140 135-145 MMOL/L Potassium Level 4.5 3.6-5.0 MMOL/L Chloride Level 104 98-107 MMOL/L Carbon Dioxide Level 22 21-32 MMOL/L Anion Gap 14 5-14 MMOL/L Blood Urea Nitrogen 11 7-18 MG/DL Creatinine 0.94 0.60-1.30 MG/DL Estimat Glomerular Filtration Rate > 60 BUN/Creatinine Ratio 12 Glucose Level 169 H 70-105 MG/DL Calcium Level 9.6 8.5-10.1 MG/DL Corrected Calcium 9.4 8.5-10.1 MG/DL Total Bilirubin 0.7 0.1-1.0 MG/DL Aspartate Amino Transf (AST/SGOT) 15 5-34 U/L Alanine Aminotransferase (ALT/SGPT) 13 0-55 U/L Alkaline Phosphatase 43 40-136 U/L Total Protein 7.7 6.4-8.2 GM/DL Albumin 4.2 3.2-4.5 GM/DL Amylase Level 49 25-125 U/L Lipase 21 8-78 U/L Urine Color YELLOW Urine Clarity VERY CLOUDY H Urine pH 8 5-9 Urine Specific [place] 1.015 L 1.016-1.022 Urine Protein 2+ H NEGATIVE Urine Glucose (UA) NEGATIVE NEGATIVE Urine Ketones NEGATIVE NEGATIVE Urine Nitrite POSITIVE H NEGATIVE Urine Bilirubin NEGATIVE NEGATIVE Urine Urobilinogen NORMAL NORMAL MG/DL Urine Leukocyte Esterase 2+ H NEGATIVE Urine RBC (Auto) 2+ H NEGATIVE Urine RBC 2-5 H /HPF Urine WBC 10-25 H /HPF Urine Squamous Epithelial Cells 10-25 H /HPF Urine Crystals NONE /LPF Urine Bacteria LARGE H /HPF Urine Casts NONE /LPF Urine Mucus NEGATIVE /LPF Urine Culture Indicated YES Micro Results Microbiology 06/19/18 Urine Culture - Final, Complete Klebsiella pneumoniae Mixed Bacterial Angela My Orders Orders - BERNOT,TRACY Promethazine Injection (Phenergan Injec (06/19/18 13:30) Ketorolac Injection (Toradol Injection) (06/19/18 13:30) Comprehensive Metabolic Panel (06/19/18 13:21) Lipase (06/19/18 13:21) Amylase (06/19/18 13:21) Ua Culture If Indicated (06/19/18 13:21) Saline Lock/Iv-Start (06/19/18 13:21) Cbc With Automated Diff (06/19/18 13:21) Ct Abd/Pelvis Wo(Kidney Stone) (06/19/18 13:21) Abdomen/Kub 1view (06/19/18 13:21) Ns Iv 1000 Ml (Sodium Chloride 0.9%) (06/19/18 13:45) Urine Culture (06/19/18 14:15) Fentanyl Injection (Sublimaze Injection (06/19/18 14:45) Ondansetron Oral Dissolve Tab (Zofran (06/19/18 15:15) Iv Push Hide Buyer Ed (06/19/18 ) Im/Sub-Q Injection Non-Ab Ed (06/19/18 ) Medications Given in ED Vital Signs/I&O 06/19/18 06/19/18 13:20 15:49 Temp 98.0 Pulse 81 78 Resp 16 16 B/P (MAP) 172/109 (130) 137/87 (104) Pulse Ox 100 97 O2 Delivery Room Air Room Air Blood Pressure Mean: 130 Progress Progress Note : Time: 15:00 Progress Note I have seen and evaluated the patient. I've informed her of her laboratory and imaging studies. Dr. Simmons for further evaluation of her kidney stone. She did accidentally pull out her IV, meds were given IM oral. She agrees with plan of care, plans for discharge, return precautions were Diagnostic Imaging Diagonstic Imaging: Xray, CT Plain Films/CT/US/NM/MRI: abdomen, pelvis Comments NAME: NAE PRICE [facility] REC#: [id number] PT STATUS: REG ER : 1970 PHYSICIAN: TRACY ZARAGOZA ADMIT DATE: 06/19/18/ER Signed Date of Exam:06/19/18 ABDOMEN/KUB 1VIEW INDICATION: Right-sided flank pain. COMPARISON: CT abdomen and pelvis performed concurrently. FINDINGS: There is a 3 mm calculus in the lower right hemipelvis which should correspond to the distal right UVJ calculus seen on the CT performed concurrently. Nonobstructive bowel gas pattern. No free intraperitoneal air. Normal regional skeleton. IMPRESSION: The 3 mm distal right ureteral stone at the UVJ is better evaluated on CT. Dictated by: Dictated on workstation # [id number] Dict: 06/19/18 1408 Trans: 06/19/18 1416 KB [id number] Interpreted by: MISSY GOOD MD Electronically signed by: MISSY GOOD MD 06/19/18 1412 NAME: NAE PRICE [facility] REC#: [id number] PT STATUS: REG ER : 1970 PHYSICIAN: TRACY ZARAGOZA ADMIT DATE: 06/19/18/ER Draft Date of Exam:06/19/18 CT ABD/PELVIS WO(KIDNEY STONE) PROCEDURE: CT urinary tract, rule out kidney stone. TECHNIQUE: Multiple contiguous axial images were obtained through the abdomen and pelvis without the use of intravenous contrast. INDICATION: Right flank pain COMPARISON: None available. FINDINGS: Evaluation of the abdominal viscera is mildly limited without contrast. Lower chest: There are a few patchy groundglass opacities in the lung bases which are new since prior exam. Calcified right lower lobe pulmonary granuloma. Peritoneum: No free intraperitoneal air or fluid. Liver and biliary system: Unchanged diffuse hypoattenuation liver indicative of hepatic steatosis. No focal hepatic lesion. The gallbladder is normal. No biliary duct dilation. Spleen and Pancreas: Spleen is normal. Unenhanced pancreas is grossly normal. Adrenals: Normal. tract: Mild right hydronephrosis and hydroureter secondary to a 3 mm partially obstructing stone in the distal right ureter at the UVJ. No left renal or ureteral stones. Uterus is normal in appearance. GI tract: Stomach is decompressed. No bowel obstruction. No pericolonic inflammatory changes. Normal appendix. Vasculature and Lymph nodes: Normal caliber aorta. No abdominal or pelvic lymphadenopathy. Musculoskeletal: No concerning osseous lesion. IMPRESSION: 1. Mild right hydronephrosis and hydroureter secondary to a 3 mm partially obstructing stone in the distal right ureter at the UVJ. 2. Diffuse hepatic steatosis. Dictated on workstation # [id number] Dict: 06/19/18 1418 Trans: 06/19/18 1430 [facility] [id number] Interpreted by: MISSY GOOD MD Electronically signed by: Reviewed: Reviewed by Me Departure Impression Primary Impression: Kidney stone Additional Impressions: Nausea and vomiting Qualified Codes: R11.2 - Nausea with vomiting, unspecified Urinary tract infection Disposition: HOME, SELF-CARE Condition: Stable/Unchanged Departure-Patient Inst. Decision time for Depature: 14:23 Referrals: [facility] (PCP/Family) Primary Care Physician RONEY SIMMONS MD Patient Instructions: Urinary Tract Infection, Adult (DC) Add. Discharge Instructions: Take medications as directed. You may use additional Tylenol and ibuprofen as directed by the bottle for pain relief, not exceeding your daily limit of Tylenol. Follow-up with Dr. Simmons's office by calling first thing Thursday morning for an appointment time. Strain all urine and if you should pass a stone take it with you to your appointment. Follow-up with primary care as needed. Return back to the emergency room for any worsening symptoms or concerns as needed. All discharge instructions reviewed with patient and/or family. Voiced understanding. Scripts Sulfamethoxazole/Trimethoprim (Bactrim Ds Tablet) 1 Each Tablet 1 EACH PO BID for 7 Days, #14 TAB Prov: TRACY ZARAGOZA 06/19/18 Hydrocodone Bit/Acetaminophen (Hydrocodone/Acetaminophen 5/325mg Tablet) 1 Tab Tab 1 EACH PO Q4-6HR PRN for PAIN-MODERATE MDD 10, #20 TAB Prov: TRACY ZARAGOZA 06/19/18 Ondansetron HCl (Zofran) 4 Mg Tab 4 MG PO Q4H PRN for NAUSEA/VOMITING-1ST LINE, #20 TAB Prov: TRACY ZARAGOZA 06/19/18 TRACY ZARAGOZA Jun 19, 2018 14:25
[2018-06-19 14:29] LABS: BILIRUBIN,URINE NEGATIVE (NEGATIVE); CLARITY,URINE VERY CLOUDY; COLOR,URINE YELLOW; GLUCOSE, URINE (UA) NEGATIVE (NEGATIVE); KETONES,URINE NEGATIVE (NEGATIVE); LEUKOCYTE ESTERASE ,URINE 2+ (NEGATIVE); NITRITE,URINE POSITIVE (NEGATIVE); PH,URINE 8 (5-9); PROTEIN,URINE 2+ (NEGATIVE); UROBILINOGEN,URINE NORMAL (NORMAL)
[2018-06-19] MEDS ORDERED: ONDN4T PO (14:29)
[2018-06-19] MEDS ORDERED: ACHD5005 PO (14:29)
[2018-06-19] MEDS ORDERED: SULF1TAB35 PO (14:31)
--- NOTE | 2018-06-19 14:31 | Diagnostic Imaging Report ---
PROCEDURE: CT urinary tract, rule out kidney stone. TECHNIQUE: Multiple contiguous axial images were obtained through the abdomen and pelvis without the use of intravenous contrast. INDICATION: Right flank pain COMPARISON: None available. FINDINGS: Evaluation of the abdominal viscera is mildly limited without contrast. Lower chest: There are a few patchy groundglass opacities in the lung bases which are new since prior exam. Calcified right lower lobe pulmonary granuloma. Peritoneum: No free intraperitoneal air or fluid. Liver and biliary system: Unchanged diffuse hypoattenuation liver indicative of hepatic steatosis. No focal hepatic lesion. The gallbladder is normal. No biliary duct dilation. Spleen and Pancreas: Spleen is normal. Unenhanced pancreas is grossly normal. Adrenals: Normal. tract: Mild right hydronephrosis and hydroureter secondary to a 3 mm partially obstructing stone in the distal right ureter at the UVJ. No left renal or ureteral stones. Uterus is normal in appearance. GI tract: Stomach is decompressed. No bowel obstruction. No pericolonic inflammatory changes. Normal appendix. Vasculature and Lymph nodes: Normal caliber aorta. No abdominal or pelvic lymphadenopathy. Musculoskeletal: No concerning osseous lesion. IMPRESSION: 1. Mild right hydronephrosis and hydroureter secondary to a 3 mm partially obstructing stone in the distal right ureter at the UVJ. 2. Diffuse hepatic steatosis. Dictated by: Dictated on workstation # [id number]
[2018-06-19 14:35] LABS: BACTERIA,URINE LARGE /HPF
--- NOTE | 2018-06-19 14:36 | NUR ---
PT STATES SHE IS STILL IN PAIN. TRACY NOTIFIED.
[2018-06-19] MEDS ORDERED: fentaNYL INJECTION 100 MCG/2 ML AMP IVP ONE (14:45)
--- NOTE | 2018-06-19 14:45 | NUR ---
WALKED INTO ROOM ET IV IS OUT OF ARM. PT STATES SHE DOES NOT KNOW HOW IT HAPPENED. TRACY NOTIFIED.
[2018-06-19] MEDS ORDERED: ONDANSETRON 4 MG (ZOFRAN) ORAL DISSOLVE TAB PO ONE (15:15)
--- NOTE | 2018-06-19 15:26 | NUR ---
URINE STRAINER WITH INSTRUCTIONS GIVEN TO PT. PT WANTING CLOTHES TO WEAR HOME. NOTFIEID HER SHE COULD WEAR THE GOWN HOME. PT CALLING A FRIEND TO COME AND GET HER.
[2018-06-19 15:49] VITALS: BP 137/87
--- NOTE | 2018-06-19 15:49 | NUR ---
PT UNABLE TO FIND A RIDE. TOLD HER THE HOSPITAL COULD SEND HER HOME ONCE IN A CAB IF SHE WANTED. PT AGREED. ASSISTED TO WAITING ROOM TO WAIT ON THE CAB.
== END 2018-06-19 15:49 | disposition home or self-care (01) ==
LOC: EDUNIT# 13:12 → ER 13:14
DX: N13.2 Hydronephrosis with renal and ureteral calculous obstruction (principal); N39.0 Urinary tract infection, site not specified; J45.909 Unspecified asthma, uncomplicated; I25.2 Old myocardial infarction; E78.00 Pure hypercholesterolemia, unspecified; I10 Essential (primary) hypertension; G43.909 Migraine, unspecified, not intractable, without status migrainosus; K21.9 Gastro-esophageal reflux disease without esophagitis; E11.9 Type 2 diabetes mellitus without complications; F90.9 Attention-deficit hyperactivity disorder, unspecified type; F98.8 Other specified behavioral and emotional disorders with onset usually occurring in childhood and adolescence; F41.9 Anxiety disorder, unspecified; F43.10 Post-traumatic stress disorder, unspecified; F32.9 Major depressive disorder, single episode, unspecified; Z87.19 Personal history of other diseases of the digestive system; Z98.890 Other specified postprocedural states; Z87.442 Personal history of urinary calculi; Z88.8 Allergy status to other drugs, medicaments and biological substances
CPT/HCPCS: 36415; 74018; 74176; 80053; 81000; 82150; 83690; 85025; 87077; 87088; 87186

== ENCOUNTER 2018-09-22 19:33 | Emergency (ER) | payer MEDICAID, OTHER ==
[~2018-09-22] VITALS: Ht 160 cm; Wt 117.5 kg
[~2018-09-22 19:33] MED LIST changes: +ONDN4T PO; +SULF1TAB35 PO
--- OUTSIDE RECORDS SUMMARY | 2018-09-22 19:39 | XMS REPORT ---
Author Author Migration, Doctor Organization [facility] Address Unknown Phone Unavailable Care Team Providers Care Feed Crusher Name Role Phone Migration, Doctor Unavailable Unavailable PROBLEMS Type Condition ICD9-CM Code VER96-OV Code Onset Dates Condition Status SNOMED Code Problem Migraine without aura and without status migrainosus, not intractable G43.009 Active 373939143 Problem Other chronic pain G89.29 Active 95488567 Problem Fibromyalgia M79.7 Active 168804639 Problem Non morbid obesity due to excess calories E66.09 Active 224769081 Problem Bronchitis J40 Active 23161239 Problem Eosinophilic colitis K52.82 Active 73236132 Problem Hypertension, benign I10 Active 10455380 Problem Non morbid obesity E66.9 Active 765412696 Problem Sacral pain M53.3 Active 79589612 Problem GERD with esophagitis K21.0 Active 964490881 Problem Daytime sleepiness R40.0 Active 412782610317 Problem Other chronic gastritis without hemorrhage K29.50 Active 9096498 Problem Observed sleep apnea G47.30 Active 71994485 Problem Unsteady gait R26.81 Active 91409217 Problem Paresthesias in left hand R20.2 Active 843172501 Problem Acute right-sided low back pain with right-sided sciatica M54.41 Active 531948708 Problem Controlled type 2 diabetes mellitus without complication, without long -term current use of insulin E11.9 Active 415556652 Problem Kidney stone N20.0 Active 79639964 ALLERGIES No Information ENCOUNTERS Encounter Location Date Diagnosis [facility] [address] [facility] [id number] [address] Sep, Morbid obesity E66.01 and Acute cystitis with hematuria N30.01 [facility] [address], [place] [address] 14 Aug, 2018 Controlled type 2 diabetes mellitus without complication, without long-term current use of insulin E11.9 ; Morbid obesity E66.01 ; Plantar fasciitis of left foot M72.2 ; Daytime sleepiness R40.0 and Observed sleep apnea G47.30 [place] [address] [address]87- 88[address] 20 Jul, 2018 Controlled type 2 diabetes mellitus without complication, without long-term current use of insulin E11.9 ; Fibromyalgia M79.7 ; Hypertension, benign I10 ; Bronchitis J40 ; Bilious vomiting with nausea R11.14 ; BMI 40.0-44.9, adult Z68.41 ; Kidney stone N20.0 and Urinary tract infection, site not specified N39.0 [place] [address] 6[address]90- 5931 18 Jul, 2018 [place] [address] 01639- 5416 Jun, Generalized abdominal pain R10.84 ; Non-intractable vomiting with nausea, unspecified vomiting type R11.2 and Dehydration E86.0 [facility] [place] [address] 39[address]1671 Jun, Urinary tract infection, site not specified N39.0 ; BMI 40.0-44.9, adult Z68.41 ; Dysuria R30.0 and Kidney stone N20.0 [facility] [place] [address] [address]86 14 Jun, 2018 BMI 40.0-44.9, adult Z68.41 [place] [address] 34128- 6442 Jun, Fibromyalgia M79.7 [place] [address] [place] [id number] [place] [address] 01502- 1944 14 May, 2018 Controlled type 2 diabetes mellitus without complication, without long-term current use of insulin E11.9 ; Hypertension, benign I10 and BMI 40.0-44.9, adult Z68.41 [place] [address] 28672- 9483 Apr, Fibromyalgia M79.7 [place] [address] 86635- 1454 15 Apr, 2018 BMI 40.0-44.9, adult Z68.41 [place] [address] 71065- 9340 Apr, [place] [address] 48494- 2454 Mar, Pyelonephritis N12 and BMI 40.0-44.9, adult Z68.41 [place] [address] 33326- 4754 17 Feb, 2018 BMI 40.0-44.9, adult Z68.41 and Body aches R52 [facility] [place] [address] 33255 -9468 08 Feb, 2018 Allergic reaction to drug, initial encounter T78.40XA [address] 6[address]- 2419 07 Feb, 2018 BMI 40.0-44.9, adult Z68.41 ; Hypertension, benign I10 ; Non morbid obesity due to excess calories E66.09 and Controlled type 2 diabetes mellitus without complication, without long-term current use of insulin E11.[address] [address]27- 4712 Jan, Impacted cerumen of right ear H61.[address] 02126- 3211 Jan, Bilious vomiting with nausea R11.14 ; BMI 40.0-44.9, adult Z68.41 ; Hypertension, benign I10 and Fibromyalgia M79.[address] 66360- 2081 Dec, Bilious vomiting with nausea R11.14 and Tachycardia R00.[address] 69614- 3897 Nov, [place] [address] 72927- 7628 Nov, BMI 40.0-44.9, adult Z68.41 ; Leg edema R60.0 and Hypertension, benign I10 [place] [address] 60368- 0108 Nov, [place] [address] 26717- 7902 October, Thoracic neuritis M54.14 [place] [address] 02682- 2983 October, Acute right hip pain M25.551 [place] [address] 94876- 1727 October, [place] [address] 09535- 1277 Sep, Hypertension, benign I10 and Acute right-sided low back pain with right-sided sciatica M54.41 [place] [address] 28770- 5889 Sep, Fibromyalgia M79.7 and Hypertension, benign I10 [place] [address] 59868- 2033 Aug, [place] [address] 88340- 2540 Aug, Fibromyalgia M79.7 ; Frequent headaches R51 and Non morbid obesity due to excess calories E66.09 [place] [address] [place] [id number] [place] [address] 00873- 3142 Jul, [place] [address] 69032- 6965 Jul, Fibromyalgia M79.7 [place] [address] 47482- 4068 Jul, Viral gastroenteritis A08.4 and Paresthesias in left hand R20.2 [place] [address] [place] [id number] [place] [address] 74859- 9691 Jun, Non morbid obesity due to excess calories E66.09 [place] [address] 54679- 5345 Jun, [place] [address] 95798- 5275 Jun, Fibromyalgia M79.7 [place] [address] 53830- 6955 May, Non morbid obesity due to excess calories E66.09 and Hypertension, benign I10 [place] [address] 57220- 4280 May, GERD with esophagitis K21.[address] 44957- 9532 Apr, BMI 40.0-44.9, adult Z68.41 and Non morbid obesity E66.9 [place] [address] 42146- 7505 Mar, Unsteady gait R26.81 [place] [address] 44478- 5993 Mar, Unsteady gait R26.81 ; Sacral pain M53.3 and Fibromyalgia M79.7 [place] [address] 97516- 7477 Mar, Non morbid obesity due to excess calories E66.09 [place] [address] [place] [id number] [place] [address] 75894- 7503 Feb, Abdominal pain, generalized R10.84 [place] [address] [place] [id number] [place] [address] 27346- 3006 18 Feb, 2017 Other chronic gastritis without hemorrhage K29.50 and H. pylori infection A04.8 [place] [address] 32305- 9511 Feb, Back pain 724.5 ; Pain in left shoulder M25.512 ; Fibromyalgia M79.7 and Non morbid obesity due to excess calories E66.09 [place] [address] 13838- 8988 Feb, BMI 40.0-44.9, adult Z68.41 [place] [address] 88069- 2127 Jan, Dysuria R30.0 and Acute cystitis with hematuria N30.01 [place] [address] 35949- 4646 Jan, Dysuria R30.0 [place] [address] 34782- 3181 Dec, Fibromyalgia M79.7 [place] [address] 97319- 2140 Dec, Screening for diabetes mellitus Z13.1 and Fibromyalgia M79.7 [place] [address] 73306- 3426 Dec, Fibromyalgia M79.7 [place] [address] 72127- 0152 Dec, [place] [address] 06119- 1270 Dec, Fibromyalgia M79.7 [place] [address] 59555- 7476 Nov, Foreign body in foot, left, initial encounter S90.852A [place] [address] 43086- 4275 Nov, Viral gastroenteritis A08.[address] 52752- 8895 09 Nov, 2016 Fall, initial encounter W19.XXXA ; Post-traumatic headache, unspecified, not intractable G44.309 ; Dizziness R42 ; Unsteady gait R26.81 ; Sacral pain M53.3 and Non morbid obesity due to excess calories E66.09 [facility] [address] 76003- 2256 Nov, [facility] [address] [place] [id number] [place] [address] 11866- 5178 Nov, [facility] [address] 92275- 7841 October, Non morbid obesity due to excess calories E66.09 and Hypertension, benign I10 [place] [address] 30649- 0732 October, Fibromyalgia M79.7 [place] [address] [place] [id number] [place] [address] 89122- 2272 Sep, [place] [address] 74902- 8447 Sep, [facility] [address] 32571- 5640 Sep, Eosinophilic colitis K52.82 [place] [address] 74200- 8676 Aug, Bronchitis J40 [facility] [address] [place] [id number] [place] [address] 25104- 6267 Aug, [place] [address] [place] [id number] [place] [address] 88836- 6728 Aug, Pain in left shoulder M25.512 ; Bronchitis J40 ; Acute midline back pain, unspecified location M54.9 ; Migraine without aura and without status migrainosus, not intractable G43.009 ; Fibromyalgia M79.7 and Pain of upper abdomen R10.10 [facility] [address] [place] [id number] [place] [address] 85072- 9258 Aug, [place] [address] 93830- 3242 Aug, [facility] [address], [place] [address]- 3969 Jul, Other viral agents as the cause of diseases classified elsewhere B97.89 and Acute upper respiratory infection, unspecified J06.9 [facility] [address], [place] [address]- 4102 Jun, [facility] [address] [place] [id number] [place] [address] 65663 -9467 Jun, [facility] [address] [place] [id number] [place] [address] 21807- 9768 May, Abscess L02.91 [place] [address] [place] [id number] [place] [address] 89008- 3257 May, Acute midline low back pain without sciatica M54.5 [facility] [address] [place] [id number] [place] [address] 77819 -3930 May, [facility] [address] [place] [id number] [place] [address] 04505- 6791 Apr, [facility] [address] [place] [id number] [place] [address] 26006- 2188 Apr, Other chronic pain G89.29 ; Pain in right shoulder M25.511 and Pain in left shoulder M25.512 [place] [address], [place] [address]- 4164 16 Apr, 2016 [facility] [address], [place] [address]- 3532 Apr, [facility] [address] [place] [id number] [place] [address] 22017- 0406 Apr, Fibromyalgia M79.7 ; Other chronic pain G89.29 and Pain in left shoulder M25.512 [facility] [address], [place] [address]- 9660 Apr, Bronchitis J40 [facility] [address] [place] [id number] [address]- 5432 Mar, [facility] [id number] [id number] Mar, [facility] [address] [place] [address] 05613- 1709 29 Feb, 2015 [facility] [address] [place] [address] 76810- 3468 26 Feb, 2015 [facility] [address] [place] [id number] [place] [address] 67547- 2123 23 Feb, 2015 [facility] [address] [place] [address] 96284- 8970 22 Feb, 2015 [facility] [address] [place] [id number] [place] [address] 30307- 2004 20 Feb, 2015 [facility] [address] [place] [id number] [place] [address] 39906- 9292 19 Feb, 2015 [facility] [address] [place] [address] 58805- 3940 19 Feb, 2015 Dysuria R30.0 [facility] [address] [place] [id number] [place] [address] 13682- 4052 19 Feb, 2015 Dysuria R30.0 [facility] [address] [place] [address] 86448- 2519 16 Feb, 2015 [facility] [address] [place] [address] 15473- 8509 15 Feb, 2016 Migraine, unspecified, not intractable, without status migrainosus G43.909 and Fibromyalgia M79.7 [facility] [address] [place] [address] 00573- 1876 06 Feb, 2016 Migraine without aura and without status migrainosus, not intractable G43.009 [facility] [address], [place] [address]- 4711 Jan, [facility] [address] [place] [address] 49493- 0587 Jan, [facility] [address], [place] [address]- 8019 Jan, [facility] [address] [place] [id number] [place] [address] 09061- 4339 Jan, [facility] [address] [place] [id number] [place] [address] 94684- 1120 Jan, Unsteady gait R26.81 ; Fibromyalgia M79.7 and Family history of rheumatoid arthritis Z82.61 [facility] [address] [place] [id number] [place] [address] 50660- 7100 Dec, [place] [address] [place] [id number] [place] [address] 67410- 5653 Dec, [facility] [address] [place] [id number] [place] [address] 22423- 7106 Nov, Pain in left shoulder M25.512 [facility] [address] [place] [id number] [place] [address] 08967- 3681 October, Viral gastroenteritis A08.4 [facility] [address] [place] [id number] [place] [address] 73029 -5397 October, Pain of upper abdomen R10.10 [facility] [address] [place] [id number] [place] [address] 14494- 5801 October, Acute midline back pain, unspecified location M54.9 [facility] [address] [place] [id number] [place] [address] 33373- 6054 Aug, Elbow pain, right M25.521 [facility] [address] [place] [id number] [place] [address] 89002- 7374 Aug, Elbow pain, right M25.521 [facility] [address] [place] [id number] [place] [address] 10875- 7379 Aug, Pain of right upper extremity M79.601 [facility] [address] 48385- 5382 Jun, Lumbar neuritis M54.16 [facility] [address] 14030- 6307 May, [facility] [address] 14799- 3544 Apr, Non morbid obesity due to excess calories E66.09 [facility] [address] 25913- 3261 Apr, Non morbid obesity due to excess calories E66.09 and Thoracic neuritis M54.14 [place] [address] 41756- 8660 Apr, Elbow pain, right M25.521 [place] [address] 37062- 4391 Mar, Right elbow pain M25.521 [facility] [address] 90715- 4311 Mar, [facility] [address] 82566- 8922 Feb, Urinary tract infection, site not specified 599.0 [facility] [address] [place] [id number] [place] [address] 26921- 1032 Feb, [place] [address] 81614- 9254 Jan, Spider bite 989.5 [facility] [address] 25881- 7822 Jan, Spider bite 989.5 [facility] [address] 18851- 6602 Jan, Spider bite 989.5 [facility] [address] [place] [id number] [place] [address] 06633- 8213 Nov, Back pain 724.5 and Diabetes 250.00 [place] [address] [place] [id number] [address]- 0727 Nov, Back pain 724.5 and Muscle spasm of back 724.8 [facility] [address] [place] [id number] [place] [address] 226110- 4176 Nov, Alternating constipation and diarrhea 787.99 [facility] [address] [place] [id number] [place] [address] 28375- 3751 October, Back pain 724.5 and Hip pain 719.45 [facility] [address] [place] [id number] [place] [address] 53872- 1732 Sep, [facility] [address] [place] [id number] [place] [address] 81088- 2428 Sep, [facility] [address] [place] [id number] [place] [address] 16646- 5060 Aug, [facility] [address] [place] [id number] [place] [address] 51815- 2753 Aug, [facility] [address] [place] [id number] [place] [address] 69583- 7945 Aug, [facility] [address] [place] [id number] [place] [address] 03018- 9577 Aug, [facility] [address] [place] [address] 97520- 2951 Aug, [facility] [address] [place] [id number] [place] [address] 65155- 8685 Aug, [facility] [address] [place] [address] 638593- 8791 Jul, [facility] [address] [place] [id number] [place] [address] 051731- 5806 Jul, [facility] [address], [place] [address]- 6396 Jun, [facility] [address] [place] [id number] [place] [address] 04174- 6172 Jun, [facility] [place] [facility] [address] [id number] [place] [address]- 1264 Jun, [facility] [place] [facility] [address] [id number] [place] [address]- 4464 Jun, [facility] [place] [facility] [address] [id number] [place] [address]- 0704 Jun, [facility] [place] [facility] [address] [id number] [place] [address]- 0040 Jun, [facility] [place] [facility] [address] [id number] [place] [address]- 5226 Jun, [facility] [place] [facility] [address] [id number] [place] [address]- 6064 May, [facility] [place] [facility] [address] [id number] [place] [address]- 7665 May, [facility] [place] [facility] [address] [id number] [place] [address]- 5861 May, [facility] [place] [facility] [address] [id number] [place] [address]- 3563 May, [facility] [place] [facility] [address] [id number] [place] [address]- 0266 Apr, [facility] [place] [facility] [address] [id number], [place] [address]- 6776 Apr, [facility] [place] [facility] [address] [id number], [place] [address]- 6881 Mar, [facility] [place] [facility] [address] [id number] [place] [address]- 9091 Mar, [facility] [place] [facility] [address] [id number] [place] [address]- 4452 Mar, [facility] [place] [facility] [address] [id number] [place] [address]- 4284 Mar, [facility] [place] [facility] [address] [id number] [place] [address]- 7307 15 Mar, 2014 [facility] [place] [facility] [address] [id number] [place] [address]- 7687 15 Mar, 2014 [facility] [place] [facility] [address] [id number] [place] [address]- 4798 Mar, [facility] [place] [facility] [address] [id number] [place] [address]- 1113 Mar, [facility] [place] [facility] [address] [id number] [place] [address]- 5993 Mar, [facility] [place] [facility] [address] [id number] [place] [address]- 4471 Mar, [facility] [place] [facility] [address] [id number] [place] [address]- 4509 Feb, [facility] [place] [facility] [address] [id number] [place] [address]- 0128 Feb, [facility] [place] [facility] [address] [id number] [place] [address]- 0309 Jan, [facility] [place] [facility] [address] [id number] [place] [address]- 9801 Jan, [facility] [place] [facility] [address] [id number] [place] [address]- 0953 Jan, [facility] [place] [facility] [address] [id number] [place] [address]- 0610 Jan, [facility] [place] [facility] [address] [id number] [place] [address]- 7582 Jan, [facility] [place] [facility] [address] [id number] [place] [address]- 2390 Jan, [facility] [place] [facility] [address] [id number] [place] [address]- 9833 Jan, [facility] [place] [facility] [address] [id number] [place] [address]- 2722 Jan, [facility] [place] [facility] [address] [id number] [place] [address]- 6565 Jan, [facility] [place] [facility] [address] [id number] [place] [address]- 7829 Jan, [facility] [place] [facility] [address] [id number] [place] [address]- 7738 Dec, [facility] [place] [facility] [address] [id number] [place] [address]- 4784 Dec, [facility] [place] [facility] [address] [id number] [place] [address]- 2588 Dec, [facility] [place] [facility] [address] [id number] [place] [address]- 1882 Dec, [facility] [place] [facility] [address] [id number] [place] [address]- 7327 Nov, [facility] [place] [facility] [address] [id number] [place] [address]- 7614 Nov, [facility] [place] [facility] [address] [id number] [place] [address] Nov, [facility] [place] [facility] [address] [id number] [place] [address] Nov, [facility] [place] [facility] [address] [id number] [place] [address] October, [facility] [place] [facility] [address] [id number] [place] [address] October, [facility] [place] [facility] [address] [id number] [place] [address] Sep, [facility] [place] [facility] [address] [id number] [place] [address] Sep, [facility] [place] [facility] [address] [id number] [place] [address] Sep, [facility] [place] [facility] [address] [id number] [place] [address] 08 Sep, 2013 [facility] [place] [facility] [address] [id number] [place] [address] Sep, [facility] [place] [facility] [address] [id number] [place] [address] Sep, [facility] [place] [facility] [address] [id number] [place] [address] Sep, [facility] [place] [facility] [address] [id number] [place] [address] Sep, [facility] [place] [facility] [address] [id number] [place] [address] Sep, [facility] [place] [facility] [address] [id number] [place] [address] Sep, [facility] [place] [facility] [address] [id number] [place] [address] Jul, [facility] [place] [facility] [address] [id number] [place] [address] Jul, [facility] [place] [facility] [address] [id number] [place] [address] Jul, [facility] [place] [facility] [address] [id number] [place] [address] Jul, [facility] [place] [facility] [address] [id number] [place] [address] Jun, [facility] [place] [facility] [address] [id number] [place] [address] Jun, [facility] [place] [facility] [address] [id number] [place] [address] Jun, [facility] [place] [facility] [address] [id number] [place] [address] 15 Jun, 2013 [facility] [place] [facility] [address] [id number] [place] [address] 14 Jun, 2013 [facility] [place] [facility] [address] [id number] [place] [address] 14 Jun, 2013 [facility] [place] [facility] [address] [id number] [place] [address] Apr, [facility] [place] [facility] [address] [id number] [place] [address] Apr, [facility] [place] [facility] [address] [id number] [place] [address] Apr, [facility] [place] [facility] [address] [id number] [place] [address] Apr, [facility] [place] [facility] [address] [id number] [place] [address] Apr, [facility] [place] [facility] [address] [id number] [place] [address] Apr, [facility] [place] [facility] [address] [id number] [place] [address] Apr, [facility] [place] [facility] [address] [id number] [place] [address] 64[address] Apr, [facility] [place] [facility] [address] [id number] [place] [address] Mar, [facility] [place] [facility] [address] [id number] [place] [address] Mar, [facility] [place] [facility] [address] [id number], [place] [address] Feb, [facility] [place] [facility] [address] [id number] [place] [address] 23[address] Feb, [facility] [place] [facility] [address] [id number] [place] [address] Dec, [facility] [place] [facility] [address] [id number], [place] [address] Dec, [facility] [place] [facility] [address] [id number], [place] [address] Dec, [facility] [address] [id number] [place] [address] Dec, [facility] [place] [facility] [address] [id number] [place] [address] Dec, [facility] [place] [facility] [address] [id number] [place] [address]- 2298 Dec, [facility] [place] [facility] [address] [id number] [place] [address] 8041 Dec, [facility] [place] [facility] [address] [id number] [place] [address]- 3256 Nov, [facility] [place] [facility] [address] [id number] [place] [address] 6612 Nov, [facility] [address] [id number] [place] [address]- 6084 Nov, [facility] [place] [facility] [address] [id number] [place] [address]226 Nov, [facility] [place] [facility] [address] [id number] [place] [address]113 October, [facility] [place] [facility] [address] [id number] [place] [address]- 1139 October, [facility] [place] [facility] [address] [id number] [place] [address]- 2312 October, [facility] [place] [facility] [address] [id number] [place] [address]- 2248 October, [facility] [place] [facility] [address] [id number] [place] [address]- 2936 Sep, [facility] [place] [facility] [address] [id number] [place] [address]- 2175 Aug, [facility] [place] [facility] [address] [id number] [place] [address]- 0488 Aug, [facility] [place] [facility] [address] [id number] [place] [address] 9203 Aug, [facility] [address] [id number] [place] [address]- 0935 Aug, [facility] [place] [facility] [address] [id number] [place] [address]- 2546 Aug, [facility] [place] [facility] [address] [id number] [place] [address]- 8331 Jul, [facility] [place] [facility] [address] [id number] [place] [address]- 2547 Jul, [facility] [place] [facility] [address] [id number] [place] [address]- 6916 Jul, [facility] [place] [facility] [address] [id number] [place] [address] 6663 Jul, [facility] [place] [facility] [address] [id number] [place] [address] 9323 Jul, [facility] [place] [facility] [address] [id number] [place] [address]- 6102 23 Jul, 2012 [facility] [place] [facility] [address] [id number] [place] [address]- 6255 20 Jul, 2012 [facility] [place] [facility] [address] [id number] [place] [address] 15 Jul, 2012 [facility] [place] [facility] [address] [id number], [place] [address]41 14 Jul, 2012 [facility] [place] [facility] [address] [id number] [place] [address]- 2547 Jul, [facility] [place] [facility] [address] [id number] [place] [address] 2543 Jun, [facility] [place] [facility] [address] [id number], [place] [address]- 6035 24 Jun, 2012 [facility] [place] [facility] [address] [id number], [place] [address]32 Jun, [facility] [place] [facility] [address] [id number] [place] [address]- 5929 May, [facility] [place] [facility] [address] [facility] [id number], [place] [address]- 1710 May, [facility] [place] [facility] [address] [facility] [id number] [place] [address]- 5746 Apr, [facility] [place] [facility] [address] [id number], [place] [address]- 0368 Apr, [facility] [place] [facility] [address] [facility] [id number] [place] [address], [place] [address]- 9280 Apr, [facility] [place] [facility] [address] [facility] [id number] [place] [address]- 9789 Apr, [facility] [place] [facility] [id number] [place] [address] Apr, [facility] [place] [facility] [address] [facility] [id number], [place] [address]- 4758 Apr, [facility] [place] [facility] [address] [id number], [place] [address] Apr, [facility] [place] [facility] [address] [id number], [place] [address] 3654 Apr, [facility] [place] [facility] [address] [facility] [id number], [place] [address]- 7167 Mar, [facility] [place] [facility] [address] [facility] [id number], [place] [address]- 6670 31 Mar, 2012 [facility] [place] [facility] [address] [facility] [id number], [place] [address]- [address]64 31 Mar, 2012 [facility] [place] [facility] [address] [facility] [id number], [place] [address]- 9345 31 Mar, 2012 [facility] [place] [facility] [address] [id number], [place] [address] 3159 15 Mar, 2012 [facility] [place] [facility] [address] [id number] [place] [address] 2546 Mar, [facility] [place] [facility] [address] [id number] [place] [address]- 7068 Mar, [facility] [place] [facility] [address] [id number] [place] [address]- 2546 Mar, [facility] [place] [facility] [address] [id number] [place] [address] 2546 Mar, [facility] [place] [facility] [address] [id number] [place] [address]- 9326 Feb, [facility] [place] [facility] [address] [id number] [place] [address]- 2149 Jan, [facility] [place] [facility] [address] [id number] [place] [address]- 3141 Jan, [facility] [place] [facility] [address] [id number] [place] [address]- 6079 Jan, [facility] [place] [facility] [address] [id number] [place] [address]- 0276 Dec, [facility] [place] [facility] [address] [id number] [place] [address]- 2838 Dec, [facility] [place] [facility] [address] [id number] [place] [address]- 8786 Dec, [facility] [place] [facility] [address] [id number] [place] [address]- 5306 Nov, [facility] [place] [facility] [address] [id number] [place] [address]- 2540 October, [facility] [place] [facility] [address] [id number] [place] [address]- 9126 October, [facility] [place] [facility] [address] [id number] [place] [address]- 2546 October, [facility] [place] [facility] [address] [id number] [place] [address]- 5587 October, [facility] [address] [id number] [place] [address]- 6802 October, [facility] [place] [facility] [address] [id number] [place] [address]- 4400 30 Sep, 2011 [facility] [place] [facility] [address] [id number] [place] [address] Sep, [facility] [place] [facility] [address] [id number] [place] [address]- 6346 Sep, [facility] [place] [facility] [address] [id number] [place] [address]- 8024 Sep, [facility] [place] [facility] [address] [id number] [place] [address]- 1771 Sep, [facility] [place] [facility] [address] [id number] [place] [address]- 8668 Sep, [facility] [place] [facility] [address] [id number] [place] [address]- 7349 Sep, [facility] [place] [facility] [address] [id number] [place] [address]- 7434 28 Aug, 2011 [facility] [place] [facility] [address] [id number] [place] [address]- 6983 Aug, [facility] [place] [facility] [address] [id number] [place] [address]- 9761 Aug, [facility] [place] [facility] [address] [id number] [place] [address]- 4085 21 Aug, 2011 [facility] [place] [facility] [address] [id number] [place] [address]- 4829 20 Aug, 2011 [facility] [place] [facility] [address] [id number] [place] [address]- 4126 19 Aug, 2011 [facility] [place] [facility] [address] [id number] [place] [address]- 1628 16 Aug, 2011 [facility] [place] [facility] [address] [id number] [place] [address]- 9224 15 Aug, 2011 [facility] [address] [id number] [place] [address]- 7906 15 Aug, 2011 [facility] [place] [facility] [address] [id number] [place] [address]- 3066 14 Aug, 2011 [facility] [address] [id number] [place] [address]- 5586 12 Aug, 2011 [facility] [place] [facility] [address] [id number] [place] [address]- 9771 08 Aug, 2011 [facility] [address] [id number] [place] [address]- 2286 15 Jul, 2011 [facility] [place] [facility] [address] [id number] [place] [address]- 5846 15 Jul, 2011 [facility] [place] [facility] [address] [id number] [place] [address]- 7126 14 Jul, 2011 [facility] [address] [id number] [place] [address]- 5197 06 Jul, 2011 [facility] [place] [facility] [address] [id number] [place] [address]- 1371 02 Jul, 2011 [facility] [address] [id number] [place] [address]- 5915 Jun, [facility] [place] [facility] [address] [id number] [place] [address]- 8196 Jun, [facility] [place] [facility] [address] [id number] [place] [address]- 3139 Jun, [facility] [place] [facility] [address] [id number] [place] [address]- 3373 May, [facility] [place] [facility] [address] [id number] [place] [address] 2546 May, [facility] [place] [facility] [address] [id number] [place] [address]- 6995 May, [facility] [place] [facility] [address] [id number] [place] [address]- 9055 19 May, 2011 [facility] [place] [facility] [address] [id number] [place] [address]- 2150 May, [facility] [place] [facility] [address] [id number] [place] 4028 16 Apr, 2011 [facility] [place] [facility] [address] [id number] [place] [address]- 9137 16 Apr, 2011 [facility] [place] [facility] [address] [id number] [place] [address]- 9721 15 Apr, 2011 [facility] [place] [facility] [address] [id number] [place] [address]- 1289 Apr, [facility] [place] [facility] [address] [id number] [place] [address]- 9007 25 Mar, 2011 [facility] [place] [facility] [address] [id number] [place] [address]- 0973 24 Mar, 2011 [facility] [place] [facility] [address] [id number] [place] [address]- 7979 Mar, [facility] [place] [facility] [address] [id number], [place] [address]- 8001 Mar, [facility] [place] [facility] [address] [id number], [place] [address]- 2473 17 Mar, 2011 [facility] [place] [facility] [address] [id number], [place] [address]- 5239 17 Mar, 2011 [facility] [place] [facility] [address] [id number] [place] [address]- 4570 16 Feb, 2011 [facility] [place] [facility] [address] [id number] [place] [address]- 5694 Nov, [facility] [place] [facility] [address] [id number] [place] [address]- 3494 Aug, [facility] [place] [facility] [address] [id number], [place] [address]- 9411 11 Apr, 2010 [facility] [address] [facility] [id number] [place] [address]- 2697 16 Mar, 2010 [facility] [address] [facility] [id number], [place] [address]- 4187 Apr, [facility] [address] [facility] [id number], [place] [address]- 3849 Apr, [facility] [address] [facility] [id number], [place] [address]- 7121 15 Sep, 2008 [facility] [address] [facility] [id number], [place] [address]- 2990 Mar, IMMUNIZATIONS No Known Immunizations SOCIAL HISTORY Never Assessed REASON FOR VISIT EMR-[facility] [place] OF CARE VITAL SIGNS MEDICATIONS No [...] disorder Medical History PTSD Medical History ADHD Medical History kidney stone Surgical History heart cath WNL after false positive stress test EF 60% 2012 Surgical History arthroscopic knee surgery right knee x2 2006 Surgical History ENT surgery Surgical History dilatation and curettage Hospitalization History hypokalemia 08/2009 Hospitalization History pneumonia 2006 Hospitalization History [facility] 01/2016 Hospitalization History Sepsis secondary to pneumonia and UTI 03/1016 Hospitalization History ER for Kidney pain/Stones 06/19/18 Hospitalization History [facility] X4 days 08/2018
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
--- OUTSIDE RECORDS SUMMARY | 2018-09-22 20:10 | XMS REPORT | Continuity of Care Document ---
Author Organization Unknown Address Unknown Allergies Active Description Code Type Severity Reaction Onset Reported/Identified Relationship to Patient Clinical Status Yes metals OA N/A N/A 09/13/2008 Yes Singulair Drug Allergy N/A N/A 09/13/2008 Yes metals OA 09/13/2008 Yes Singulair Drug Allergy 09/13/2008 Yes lisinopril 5 mg Tablet Drug Allergy N/A N/A 08/29/2011 Yes lisinopril 5 mg Tablet Drug Allergy 08/29/2011 Yes METALS METALS Unknown N/A 07/12/2014 Yes lisinopril [id number] Drug Allergy Mild COUGH 03/05/2017 Yes montelukast [id number] Drug Allergy Unknown N/A 03/05/2017 Yes montelukast sodium [id number] Drug Allergy Unknown N/A 03/05/2017 Medications There [...] ARAYA APRN 729.5 PAIN IN LIMB 03/24/2008 JENN GARVEY APRNINA R 729.5 PAIN IN LIMB 09/13/2008 CAAL DOSTANFORD K 465.9 UPPER RESPIRATORY INFECTION 09/13/2008 465.9 UPPER RESPIRATORY INFECTION 09/13/2008 465.9 UPPER RESPIRATORY INFECTION 09/13/2008 CAAL CLEMENTINE GARCIAA K 465.9 UPPER RESPIRATORY INFECTION 09/13/2008 465.9 UPPER RESPIRATORY INFECTION 09/13/2008 CAAL DO [place] K 465.9 UPPER RESPIRATORY INFECTION 09/13/2008 CAAL DO [place] K 465.9 UPPER RESPIRATORY INFECTION 09/13/2008 465.9 UPPER RESPIRATORY INFECTION 09/13/2008 465.9 UPPER RESPIRATORY INFECTION 09/13/2008 CAAL DO [place] K 465.9 UPPER RESPIRATORY INFECTION 09/13/2008 465.9 UPPER RESPIRATORY INFECTION 09/13/2008 465.9 UPPER RESPIRATORY INFECTION 09/13/2008 465.9 UPPER RESPIRATORY INFECTION 09/13/2008 CAAL DO [place] K 465.9 UPPER RESPIRATORY INFECTION 09/13/2008 CAAL DO [place] K 465.9 UPPER RESPIRATORY INFECTION 09/13/2008 CAAL DO, [place] K 465.9 UPPER RESPIRATORY INFECTION 09/13/2008 CAAL DO, [place] K 465.9 UPPER RESPIRATORY INFECTION 09/13/2008 CAAL DO, [place] K 465.9 UPPER RESPIRATORY INFECTION 09/13/2008 CAAL DO, [place] K 465.9 UPPER RESPIRATORY INFECTION 09/13/2008 CAAL DO, [place] K 465.9 UPPER RESPIRATORY INFECTION 09/13/2008 GURU OIL HEAT TECHNICIAN, [place] R 465.9 UPPER RESPIRATORY INFECTION 09/13/2008 CAAL DO, [place] K 465.9 UPPER RESPIRATORY INFECTION 09/13/2008 CAAL DO, [place] K 465.9 UPPER RESPIRATORY INFECTION 09/13/2008 CAAL DO, [place] K 465.9 UPPER RESPIRATORY INFECTION 09/13/2008 GURU OIL HEAT TECHNICIAN, [place] R 465.9 UPPER RESPIRATORY INFECTION 09/13/2008 CAAL DO, [place] K 465.9 UPPER RESPIRATORY INFECTION 09/13/2008 RUBINA HARLEY APRN 465.9 UPPER RESPIRATORY INFECTION 09/13/2008 LEO BENITEZ MD 465.9 UPPER RESPIRATORY INFECTION 09/13/2008 RUBINA HARLEY APRN 465.9 UPPER RESPIRATORY INFECTION 09/13/2008 ARISTEO ARAYA APRN 465.9 UPPER RESPIRATORY INFECTION 09/13/2008 GURU OIL HEAT TECHNICIAN, [place] R 465.9 UPPER RESPIRATORY INFECTION 09/20/2008 CAAL [place] GARCIA K 493.92 ASTHMA (ACUTE) EXACERBATION 09/20/2008 493.92 ASTHMA (ACUTE ) EXACERBATION 09/20/2008 493.92 ASTHMA (ACUTE ) EXACERBATION 09/20/2008 CAAL CLEMENTINE GARCIAA K 493.92 ASTHMA (ACUTE) EXACERBATION 09/20/2008 493.92 ASTHMA (ACUTE ) EXACERBATION 09/20/2008 CLEMENTINE CAAL DOA K 493.92 ASTHMA (ACUTE) EXACERBATION 09/20/2008 CAAL DOCLEMENTINEA K 493.92 ASTHMA (ACUTE) EXACERBATION 09/20/2008 493.92 ASTHMA (ACUTE ) EXACERBATION 09/20/2008 493.92 ASTHMA (ACUTE ) EXACERBATION 09/20/2008 [place] CAAL DO K 493.92 ASTHMA (ACUTE) EXACERBATION 09/20/2008 493.92 ASTHMA (ACUTE ) EXACERBATION 09/20/2008 493.92 ASTHMA (ACUTE ) EXACERBATION 09/20/2008 493.92 ASTHMA (ACUTE ) EXACERBATION 09/20/2008 CAAL [place] GARCIA K 493.92 ASTHMA (ACUTE) EXACERBATION 09/20/2008 CAAL DO, [place] K 493.92 ASTHMA (ACUTE) EXACERBATION 09/20/2008 CAAL DO, [place] K 493.92 ASTHMA (ACUTE) EXACERBATION 09/20/2008 CAAL DO, [place] K 493.92 ASTHMA (ACUTE) EXACERBATION 09/20/2008 CAAL DO, [place] K 493.92 ASTHMA (ACUTE) EXACERBATION 09/20/2008 CAAL DO, [place] K 493.92 ASTHMA (ACUTE) EXACERBATION 09/20/2008 CAAL DO, [place] K 493.92 ASTHMA (ACUTE) EXACERBATION 09/20/2008 JENN GARVEY APRNINA R 493.92 ASTHMA (ACUTE) EXACERBATION 09/20/2008 CAAL DO, [place] K 493.92 ASTHMA (ACUTE) EXACERBATION 09/20/2008 CAAL DO, [place] K 493.92 ASTHMA (ACUTE) EXACERBATION 09/20/2008 CAAL DO, [place] K 493.92 ASTHMA (ACUTE) EXACERBATION 09/20/2008 JENN GARVEY APRNINA R 493.92 ASTHMA (ACUTE) EXACERBATION 09/20/2008 CAAL DO [place] K 493.92 ASTHMA (ACUTE) EXACERBATION 09/20/2008 RUBINA HARLEY APRN 493.92 ASTHMA (ACUTE) EXACERBATION 09/20/2008 LEO BENITEZ MD 493.92 ASTHMA (ACUTE) EXACERBATION 09/20/2008 RUBINA HARLEY APRN 493.92 ASTHMA (ACUTE) EXACERBATION 09/20/2008 ARISTEO ARAYA APRN 493.92 ASTHMA (ACUTE) EXACERBATION 09/20/2008 JENN GARVEY APRNINA R 493.92 ASTHMA (ACUTE) EXACERBATION 04/28/2009 CLEMENTINE CAAL DOA K 787.01 NAUSEA WITH VOMITING 04/28/2009 787.01 NAUSEA WITH VOMITING 04/28/2009 787.01 NAUSEA WITH VOMITING 04/28/2009 CLEMENTINE CAAL DOA K 787.01 NAUSEA WITH VOMITING 04/28/2009 787.01 NAUSEA WITH VOMITING 04/28/2009 CAAL CLEMENTINE GARCIAA K 787.01 NAUSEA WITH VOMITING 04/28/2009 CAAL CLEMENTINE GARCIAA K 787.01 NAUSEA WITH VOMITING 04/28/2009 787.01 NAUSEA WITH VOMITING 04/28/2009 787.01 NAUSEA WITH VOMITING 04/28/2009 CAAL CLEMENTINE GARCIAA K 787.01 NAUSEA WITH VOMITING 04/28/2009 787.01 [...] [place] K 787.01 NAUSEA WITH VOMITING 04/28/2009 JENN GARVEY APRNINA R 787.01 NAUSEA WITH VOMITING 04/28/2009 CAAL [...] ARAYA APRN 787.01 NAUSEA WITH VOMITING 04/28/2009 JENN GARVEY APRNINA R 787.01 NAUSEA WITH VOMITING 08/01/2009 AFUA DOCLEMENTINEA K 840.9 SPRAIN/STRAIN SHOULDER/ARM 08/01/2009 840.9 SPRAIN/STRAIN [...] HARLEY APRN 840.9 SPRAIN/STRAIN SHOULDER/ARM 08/01/2009 LEO BENITEZ MD 840.9 SPRAIN/STRAIN SHOULDER/ARM 08/01/2009 RUBINA HARLEY [...] 719.46 Pain In Joint, Lower Leg 02/14/2010 ELI BRICENO, LEO 719.46 Pain In Joint, Lower Leg 02/14/2010 CHERRI QUEZADA, RUBINA Salazar 719.46 Pain In Joint, Lower Leg 02/14/2010 [...] Of Posterior Horn Of Medial Meniscus 04/18/2010 AFAU GARCIA [place] K 717.2 Derangement Of Posterior Horn Of Medial Meniscus 04/18/2010 AFUA GARCIA [place] K 717.2 Derangement Of Posterior Horn Of Medial Meniscus 04/18/2010 AFUA GARCIA [place] K 717.2 Derangement Of Posterior Horn Of Medial Meniscus 04/18/2010 GURU OIL HEAT TECHNICIAN, [place] R 717.2 Derangement Of Posterior Horn Of Medial Meniscus 04/18/2010 CAAL DO [place] K 717.2 Derangement Of Posterior Horn Of Medial Meniscus 04/18/2010 CAAL DO, [place] K 717.2 Derangement Of Posterior Horn Of Medial Meniscus 04/18/2010 CAAL DO, [place] K 717.2 Derangement Of Posterior Horn Of Medial Meniscus 04/18/2010 GURU BLEVINSN, [place] R 717.2 Derangement Of Posterior Horn Of Medial Meniscus 04/18/2010 CAAL DO, [place] K 717.2 Derangement Of Posterior Horn [...] Of Posterior Horn Of Medial Meniscus 10/02/2010 CAAL DOCLEMENTINEA K 461.9 SINUSITIS ACUTE 10/02/2010 461.9 SINUSITIS ACUTE 10/02/2010 461.9 SINUSITIS ACUTE 10/02/2010 CLEMENTINE CAAL DOA K 461.9 SINUSITIS ACUTE 10/02/2010 461.9 SINUSITIS ACUTE 10/02/2010 CLEMENTINE CAAL DOA K 461.9 SINUSITIS ACUTE 10/02/2010 CAAL DO [place] K 461.9 SINUSITIS ACUTE 10/02/2010 461.9 SINUSITIS ACUTE 10/02/2010 461.9 SINUSITIS ACUTE 10/02/2010 CAAL DO [place] K 461.9 SINUSITIS ACUTE 10/02/2010 461.9 SINUSITIS ACUTE 10/02/2010 461.9 SINUSITIS ACUTE 10/02/2010 461.9 SINUSITIS ACUTE 10/02/2010 CAAL DO [place] K 461.9 SINUSITIS ACUTE 10/02/2010 CAAL CLEMENTINE GARCIAA K 461.9 SINUSITIS ACUTE 10/02/2010 CAAL DO [place] K 461.9 SINUSITIS ACUTE 10/02/2010 CAAL DO, [place] K 461.9 SINUSITIS ACUTE 10/02/2010 CAAL DO, [place] K 461.9 SINUSITIS ACUTE 10/02/2010 CAAL DO, [place] K 461.9 SINUSITIS ACUTE 10/02/2010 CAAL DO, [place] K 461.9 SINUSITIS ACUTE 10/02/2010 GURU OIL HEAT TECHNICIAN, [place] R 461.9 SINUSITIS ACUTE 10/02/2010 CAAL DO, [place] K 461.9 SINUSITIS ACUTE 10/02/2010 CAAL DO, [place] K 461.9 SINUSITIS ACUTE 10/02/2010 CAAL DO, [place] K 461.9 SINUSITIS ACUTE 10/02/2010 GURU BLEVINSNLOUIS R 461.9 SINUSITIS ACUTE 10/02/2010 CAAL DO, [place] K 461.9 SINUSITIS ACUTE 10/02/2010 RUBINA HARLEY APRN 461.9 SINUSITIS ACUTE 10/02/2010 LEO BENITEZ MD 461.9 SINUSITIS ACUTE 10/02/2010 RUBINA HARLEY APRN 461.9 SINUSITIS ACUTE 10/02/2010 ARISTEO ARAYA APRN 461.9 SINUSITIS ACUTE 10/02/2010 JENN GARVEY APRNINA R 461.9 SINUSITIS ACUTE 11/01/2010 CAAL DO, [...] DO, [place] K 780.52 INSOMNIA UNSPECIFIED 11/01/2010 JENN GARVEY APRNINA R 300.00 ANXIETY UNSPEC 11/01/2010 GURU QUEZADA [place] R 780.52 INSOMNIA UNSPECIFIED 11/01/2010 CAAL DO, [place] K 300.00 ANXIETY UNSPEC 11/01/2010 CAAL DO, [place] K 780.52 INSOMNIA UNSPECIFIED 11/01/2010 CAAL DO, [place] K 300.00 ANXIETY UNSPEC 11/01/2010 CAAL DO, [place] K 780.52 INSOMNIA UNSPECIFIED 11/01/2010 CAAL DO, [place] K 300.00 ANXIETY UNSPEC 11/01/2010 CAAL DO, [place] K 780.52 INSOMNIA UNSPECIFIED 11/01/2010 [place] GARVEY APRN R 300.00 ANXIETY UNSPEC 11/01/2010 GURU OIL HEAT TECHNICIAN, [place] R 780.52 INSOMNIA UNSPECIFIED 11/01/2010 CAAL DO, [place] K 300.00 ANXIETY UNSPEC 11/01/2010 CAAL DO, [place] K 780.52 INSOMNIA UNSPECIFIED 11/01/2010 RUBINA HARLEY APRN 300.00 ANXIETY UNSPEC 11/01/2010 RUBINA HARLEY APRN 780.52 INSOMNIA UNSPECIFIED 11/01/2010 LEO BENITEZ MD 300.00 ANXIETY UNSPEC 11/01/2010 LEO BENITEZ MD 780.52 INSOMNIA UNSPECIFIED 11/01/2010 RUBINA HARLEY APRN 300.00 ANXIETY UNSPEC 11/01/2010 RUBINA HARLEY APRN 780.52 INSOMNIA UNSPECIFIED 11/01/2010 ARISTEO ARAYA APRN 300.00 ANXIETY UNSPEC 11/01/2010 MARSHAL QUEZADA ARISTEO Jaswant 780.52 INSOMNIA UNSPECIFIED 11/01/2010 [place] GARVEY APRN R 300.00 ANXIETY UNSPEC 11/01/2010 GURU QUEZADA [place] R 780.52 INSOMNIA UNSPECIFIED 11/15/2010 CAAL [...] DO, [place] K 784.0 Headache 11/15/2010 GURU OIL HEAT TECHNICIAN, [place] R 784.0 Headache 11/15/2010 CAAL DO, [place] K 784.0 Headache 11/15/2010 CAAL DO, [place] K 784.0 Headache 11/15/2010 CAAL DO, [place] K 784.0 Headache 11/15/2010 GURU OIL HEAT TECHNICIAN, [place] R 784.0 Headache 11/15/2010 CAAL DO, [place] K 784.0 Headache 11/15/2010 CHERRI QUEZADA, RUBINA D 784.0 Headache 11/15/2010 LEO BENITEZ MD 784.0 Headache 11/15/2010 CHERRI OIL HEAT TECHNICIAN, RUBINA Salazar 784.0 Headache 11/15/2010 ARISTEO ARAYA APRN 784.0 Headache 11/15/2010 GURU BLEVINSN, [place] R 784.0 Headache 01/29/2011 CAAL DO, [...] K 401.1 ESSENTIAL HYPERTENSION BENIGN 01/29/2011 GURU QUEZADA, [place] Haskins 401.1 ESSENTIAL HYPERTENSION BENIGN 01/29/2011 CAAL DO, [place] K 401.1 ESSENTIAL HYPERTENSION BENIGN 01/29/2011 CHERRI BLEVINSN, RUBINA D 401.1 ESSENTIAL HYPERTENSION BENIGN 01/29/2011 ELI BRICENO, LEO 401.1 ESSENTIAL HYPERTENSION BENIGN 01/29/2011 CHERRI QUEZADA, RUBINA Salazar 401.1 ESSENTIAL HYPERTENSION BENIGN 01/29/2011 MARSHAL QUEZADA, ARISTEO Michaud 401.1 ESSENTIAL HYPERTENSION BENIGN 01/29/2011 GURU QUEZADA, [place] Haskins 401.1 ESSENTIAL HYPERTENSION BENIGN 01/31/2011 CAAL DO, [...] CAAL DO, [place] K 790.29 Hyperglycemia 02/12/2011 GURU QUEZADA [place] R 790.29 Hyperglycemia 02/12/2011 CAAL DO, [place] [...] [place] K 780.4 Dizziness And Vertigo 02/21/2011 [place] GARVEY APRN R 780.4 Dizziness And Vertigo 02/21/2011 CAAL DO, [place] K 780.4 Dizziness And Vertigo 02/21/2011 CAAL DO, [place] K 780.4 Dizziness And Vertigo 02/21/2011 CAAL DO, [place] K 780.4 Dizziness And Vertigo 02/21/2011 [place] GARVEY APRN R 780.4 Dizziness And Vertigo 02/21/2011 CAAL DO, [place] K 780.4 Dizziness And Vertigo 02/21/2011 RUBINA HARLEY APRN 780.4 Dizziness And Vertigo 02/21/2011 LEO BENITEZ MD 780.4 Dizziness And Vertigo 02/21/2011 RUBINA HARLEY APRN 780.4 Dizziness And Vertigo 02/21/2011 ARISTEO ARAYA APRN 780.4 Dizziness And Vertigo 02/21/2011 [place] GARVEY APRN R 780.4 Dizziness And Vertigo 05/21/2011 CAAL [...] 296.32 MO DEPRESSIVE RECURRENT MODERATE 05/21/2011 GURU BLEVINSN [place] R 296.32 MO DEPRESSIVE RECURRENT MODERATE 05/21/2011 CAAL DO, [place] K 296.32 MO DEPRESSIVE RECURRENT MODERATE 05/21/2011 CAAL DO, [place] K 296.32 MO DEPRESSIVE RECURRENT MODERATE 05/21/2011 CAAL DO, [place] K 296.32 MO DEPRESSIVE RECURRENT MODERATE 05/21/2011 JENN GARVEY APRNINA R 296.32 MO DEPRESSIVE RECURRENT MODERATE 05/21/2011 CAAL DO, [place] K 296.32 MO DEPRESSIVE RECURRENT MODERATE 05/21/2011 RUBINA HARLEY APRN 296.32 MO DEPRESSIVE RECURRENT MODERATE 05/21/2011 ELI BRICENO, LEO 296.32 MO DEPRESSIVE RECURRENT MODERATE 05/21/2011 RUBINA [...] 06/11/2011 [place] CAAL DO 530.81 GERD 06/11/2011 [place] CAAL DO 346.90 [...] DO, [place] K 530.81 GERD 06/11/2011 GURU OIL HEAT TECHNICIAN, [place] R 346.90 MIGRAINE HEADACHE 06/11/2011 GURU OIL HEAT TECHNICIAN [place] R 493.90 ASTHMA UNSPECIFIED 06/11/2011 GURU OIL HEAT TECHNICIAN, [place] R 530.81 GERD 06/11/2011 CAAL DO, [...] DO, [place] K 530.81 GERD 06/11/2011 GURU OIL HEAT TECHNICIAN, [place] R 346.90 MIGRAINE HEADACHE 06/11/2011 GURU OIL HEAT TECHNICIAN, [place] R 493.90 ASTHMA UNSPECIFIED 06/11/2011 GURU OIL HEAT TECHNICIAN, [place] R 530.81 GERD 06/11/2011 CAAL DO, [...] 493.90 ASTHMA UNSPECIFIED 06/11/2011 ARISTEO ARAYA APRN 530.81 GERD 06/11/2011 GURU QUEZADA, [place] R 346.90 MIGRAINE HEADACHE 06/11/2011 GURU QUEZADA [place] R 493.90 ASTHMA UNSPECIFIED 06/11/2011 GURU OIL HEAT TECHNICIAN, [place] R 530.81 GERD 07/23/2011 CAAL DO [place] K 307.81 Headache, Tension 07/23/2011 307.81 Headache, Tension 07/23/2011 307.81 Headache, Tension 07/23/2011 CAAL DO [place] K 307.81 Headache, Tension 07/23/2011 307.81 [...] DO, [place] K 307.81 Headache, Tension 07/23/2011 [place] GARVEY APRN R 307.81 Headache, Tension 07/23/2011 CAAL DO, [...] ARISTEO ARAYA APRN 307.81 Headache, Tension 07/23/2011 [place] GARVEY APRN R 307.81 Headache, Tension 08/14/2011 CAAL DO, [...] Tenderness Right Lower Quadrant 08/14/2011 CAAL DO, STANFODR K 789.63 Abdominal Tenderness Right Lower Quadrant 08/14/2011 CAAL DO, [place] K 789.63 Abdominal Tenderness Right Lower Quadrant 08/14/2011 CAAL DO, [place] K 789.63 Abdominal Tenderness Right Lower Quadrant 08/14/2011 CAAL DO, [place] K 789.63 Abdominal Tenderness Right Lower Quadrant 08/14/2011 CAAL DO, [place] K 789.63 Abdominal Tenderness Right Lower Quadrant 08/14/2011 JENN GARVEY APRNINA R 789.63 Abdominal Tenderness Right Lower Quadrant 08/14/2011 CAAL DO, [place] K 789.63 Abdominal Tenderness Right Lower Quadrant 08/14/2011 CAAL DO, [place] K 789.63 Abdominal Tenderness Right Lower Quadrant 08/14/2011 CAAL DO, [place] K 789.63 Abdominal Tenderness Right Lower Quadrant 08/14/2011 GURU QUEZADA [place] R 789.63 Abdominal Tenderness Right Lower Quadrant 08/14/2011 CAAL DO, [place] K 789.63 Abdominal Tenderness Right Lower Quadrant 08/14/2011 RUBINA HARLEY APRN 789.63 Abdominal Tenderness Right Lower Quadrant 08/14/2011 LEO BENITEZ MD 789.63 Abdominal Tenderness Right Lower Quadrant 08/14/2011 RUBINA HARLEY APRN 789.63 Abdominal Tenderness Right Lower Quadrant 08/14/2011 ARISTEO ARAYA APRN 789.63 Abdominal Tenderness Right Lower Quadrant 08/14/2011 JENN GARVEY APRNINA R 789.63 Abdominal Tenderness Right Lower Quadrant 08/21/2011 [...] 08/21/2011 276.8 Hypopotassemia 08/21/2011 [place] CAAL DO 250.00 Diabetes Mellitus Without Mention Of Complication Type Ii Or Unspecified Type Not Stated As Uncontrolled 08/21/2011 [place] CAAL DO 276.8 Hypopotassemia 08/21/2011 250.00 Diabetes Mellitus Without Mention Of Complication Type Ii Or Unspecified Type Not Stated As Uncontrolled 08/21/2011 276.8 Hypopotassemia 08/21/2011 [place] CAAL DO 250.00 Diabetes Mellitus Without Mention Of Complication Type Ii Or Unspecified Type Not Stated As Uncontrolled 08/21/2011 [place] CAAL DO 276.8 Hypopotassemia 08/21/2011 [place] CAAL DO K [...] 08/21/2011 276.8 Hypopotassemia 08/21/2011 [place] CAAL DO 250.00 Diabetes Mellitus [...] DO, [place] K 276.8 Hypopotassemia 08/21/2011 GURU OIL HEAT TECHNICIANLOUIS R 250.00 Diabetes Mellitus Without Mention Of Complication Type Ii Or Unspecified Type Not Stated As Uncontrolled 08/21/2011 GURU BLEVINSNLOUIS R 276.8 Hypopotassemia 08/21/2011 CAAL DO, [place] K 250.00 Diabetes Mellitus Without Mention Of Complication Type Ii Or Unspecified Type Not Stated As Uncontrolled 08/21/2011 CAAL DO, [place] K 276.8 Hypopotassemia 08/21/2011 CAAL DO, [place] K 250.00 Diabetes Mellitus Without Mention Of Complication Type Ii Or Unspecified Type Not Stated As Uncontrolled 08/21/2011 [place] CAAL DO K 276.8 Hypopotassemia 08/21/2011 CAAL CLEMENTINE GARCIAA K 250.00 Diabetes Mellitus Without Mention Of Complication Type Ii Or Unspecified Type Not Stated As Uncontrolled 08/21/2011 [place] CAAL DO K 276.8 Hypopotassemia 08/21/2011 [place] GARVEY APRN 250.00 Diabetes Mellitus Without Mention Of Complication Type Ii Or Unspecified Type Not Stated As Uncontrolled 08/21/2011 [place] GARVEY APRN 276.8 Hypopotassemia 08/21/2011 [place] CAAL DO K [...] Abnormal Lft (elevated) 08/25/2011 [place] GARVEY APRN 790.4 Abnormal Lft (elevated) 08/25/2011 CAAL DO, [place] K 790.4 Abnormal Lft (elevated) 08/25/2011 CAAL DO, [place] K 790.4 Abnormal Lft (elevated) 08/25/2011 CAAL DO, [place] K 790.4 Abnormal Lft (elevated) 08/25/2011 [place] GARVEY APRN 790.4 Abnormal Lft (elevated) 08/25/2011 CAAL DO, [...] Unspecified Noninfectious Gastroenteritis And Colitis 11/04/2011 CAAL DO, [place] K 789.00 ABDOMINAL PAIN [...] K 789.00 Abdominal Pain Unspecified Site 11/04/2011 JENN GARVEY APRNINA R 789.00 Abdominal Pain Unspecified Site 11/04/2011 [...] [place] K 787.01 Nausea With Vomiting 12/18/2011 JENN GARVEY APRNINA R 553.3 DIAPHRAGMATIC HERNIA WITHOUT OBSTRUCTION OR [...] DIAPHRAGMATIC HERNIA WITHOUT OBSTRUCTION OR GANGRENE 12/18/2011 AFUA DO [place] K 787.01 Nausea With Vomiting 12/18/2011 [place] GRAVEY APRN R 553.3 DIAPHRAGMATIC HERNIA WITHOUT OBSTRUCTION OR GANGRENE 12/18/2011 [place] GARVEY APRN R 787.01 Nausea With Vomiting 12/18/2011 CAAL DO [place] K 553.3 DIAPHRAGMATIC HERNIA WITHOUT OBSTRUCTION OR GANGRENE 12/18/2011 AFUA DOCLEMENTINEA K 787.01 Nausea With Vomiting 12/18/2011 RUBINA [...] GARVEY APRNINA R 787.01 Nausea With Vomiting 01/05/2012 CLEMENTINE CAAL DOA K 787.02 NAUSEA ALONE 01/05/2012 CLEMENTINE CAAL DOA K 787.1 HEARTBURN 01/05/2012 CAAL [place] GARCIA K 789.01 ABDOMINAL PAIN RIGHT UPPER QUADRANT 01/05/2012 [place] CAAL DO K 789.06 ABDOMINAL PAIN EPIGASTRIC 01/05/2012 787.02 NAUSEA ALONE 01/05/2012 787.1 HEARTBURN 01/05/2012 789.01 ABDOMINAL PAIN RIGHT UPPER QUADRANT 01/05/2012 789.06 ABDOMINAL PAIN EPIGASTRIC 01/05/2012 787.02 NAUSEA ALONE 01/05/2012 787.1 HEARTBURN 01/05/2012 789.01 ABDOMINAL PAIN RIGHT UPPER QUADRANT 01/05/2012 789.06 ABDOMINAL PAIN EPIGASTRIC 01/05/2012 [place] CAAL DO K 787.02 Nausea Alone 01/05/2012 [place] CAAL DO K 787.1 HEARTBURN 01/05/2012 [place] CAAL DO K 789.01 ABDOMINAL PAIN RIGHT UPPER QUADRANT 01/05/2012 CAAL [place] GARCIA K 789.06 ABDOMINAL PAIN EPIGASTRIC 01/05/2012 787.02 Nausea Alone 01/05/2012 787.1 Heartburn 01/05/2012 789.01 Abdominal Pain Right Upper Quadrant 01/05/2012 789.06 Abdominal Pain Epigastric 01/05/2012 [place] CAAL DO K 787.02 Nausea Alone 01/05/2012 [place] CAAL DO K 787.1 Heartburn 01/05/2012 [place] CAAL DO K 789.01 Abdominal Pain Right Upper Quadrant 01/05/2012 [place] CAAL DO K 789.06 Abdominal Pain Epigastric 01/05/2012 [place] CAAL DO K 787.02 Nausea Alone 01/05/2012 CLEMENTINE CAAL DOA K 787.1 Heartburn 01/05/2012 CLEMENTINE CAAL DOA K 789.01 Abdominal Pain Right Upper Quadrant 01/05/2012 CLEMENTINE CAAL DOA K 789.06 Abdominal Pain Epigastric 01/05/2012 787.02 [...] [place]OU[place] R 787.02 Nausea Alone 01/05/2012 GURU OIL HEAT TECHNICIAN, [place] R 787.1 Heartburn 01/05/2012 GURU QUEZADA, [place] R 789.01 Abdominal Pain Right Upper Quadrant 01/05/2012 GURU QUEZADA, [place] R 789.06 Abdominal Pain Epigastric 01/05/2012 [...] K 789.06 Abdominal Pain Epigastric 01/05/2012 GURU QUEZADA [place] R 787.02 Nausea Alone 01/05/2012 GURU OIL HEAT TECHNICIAN, [place] R 787.1 Heartburn 01/05/2012 GURU OIL HEAT TECHNICIAN, [place] R 789.01 Abdominal Pain Right Upper [...] 789.01 Abdominal Pain Right Upper Quadrant 01/05/2012 ARISTEO ARAYA APRN 789.06 Abdominal Pain Epigastric 01/05/2012 GURU OIL HEAT TECHNICIAN, [place] R 787.02 Nausea Alone 01/05/2012 GURU OIL HEAT TECHNICIAN, [place] R 787.1 Heartburn 01/05/2012 GURU OIL HEAT TECHNICIAN, [place] R 789.01 Abdominal Pain Right Upper Quadrant 01/05/2012 GURU OIL HEAT TECHNICIAN, [place] R 789.06 Abdominal Pain Epigastric 03/18/2012 [...] K 782.0 Disturbance Of Skin Sensation 03/18/2012 GURU OIL HEAT TECHNICIAN, [place] R 782.0 Disturbance Of Skin Sensation 03/18/2012 CAAL DO, [place] K 782.0 Disturbance Of Skin Sensation 03/18/2012 CAAL DO, [place] K 782.0 Disturbance Of Skin Sensation 03/18/2012 CAAL DO, [place] K 782.0 Disturbance Of Skin Sensation 03/18/2012 GURU BLEVINSN, [place] R 782.0 Disturbance Of Skin Sensation 03/18/2012 [...] DO, [place] K 786.2 Cough 04/24/2012 GURU OIL HEAT TECHNICIAN, [place] R 466.0 Bronchitis, Acute 04/24/2012 GURU OIL HEAT TECHNICIAN, [place] R 786.07 Wheezing 04/24/2012 GURU OIL HEAT TECHNICIAN, [place] R 786.2 Cough 04/24/2012 CAAL DO, [...] DO, STAN[place] K 786.2 Cough 04/24/2012 GURU OIL HEAT TECHNICIAN, [place] R 466.0 Bronchitis, Acute 04/24/2012 GURU OIL HEAT TECHNICIAN, [place] R 786.07 Wheezing 04/24/2012 GURU OIL HEAT TECHNICIAN, [place] R 786.2 Cough 04/24/2012 CAAL DO, [...] APRN 786.2 Cough 04/24/2012 ARISTEO ARAYA APRN T 466.0 Bronchitis, Acute 04/24/2012 MARSHAL QUEZADA ARISTEO T 786.07 Wheezing 04/24/2012 MARSHAL QUEZADA ARISTEO T 786.2 Cough 04/24/2012 GURU OIL HEAT TECHNICIAN, [place] R 466.0 Bronchitis, Acute 04/24/2012 GURU OIL HEAT TECHNICIAN, [place] R 786.07 Wheezing 04/24/2012 GURU OIL HEAT TECHNICIAN, [place] R 786.2 Cough 05/01/2012 CAAL DO, [...] Involving Lower Leg 05/01/2012 [place] GARVEY APRN R 719.46 Pain In Joint Involving Lower Leg [...] K 724.5 BACKACHE 07/01/2012 [place] GARVEY APRN R 724.5 BACKACHE 07/01/2012 CAAL DO, [place] K 724.5 BACKACHE 07/01/2012 CAAL DO, [place] K 724.5 BACKACHE 07/01/2012 CAAL DO, [place] K 724.5 BACKACHE 07/01/2012 [place] GARVEY APRN R 724.5 BACKACHE 07/01/2012 CAAL DO, [place] K 724.5 BACKACHE 07/01/2012 RUBINA HARLEY APRN 724.5 BACKACHE 07/01/2012 LOE BENITEZ MD 724.5 BACKACHE 07/01/2012 RUBINA HARLEY APRN 724.5 BACKACHE 07/01/2012 ARISTEO ARAYA APRN 724.5 BACKACHE 07/01/2012 GURU QUEZADA, [place] R 724.5 BACKACHE 07/08/2012 CAAL DO, [place] [...] RUBINA HARLEY APRN 724.2 LUMBAGO 07/08/2012 ARISTEO ARAYA APRN 724.2 LUMBAGO 07/08/2012 [place] GARVEY APRN [...] DO, [place] K 790.29 ABNORMAL GLUCOSE 08/02/2012 JENN GARVEY APRNINA R 790.29 ABNORMAL GLUCOSE 08/02/2012 CAAL DO, [place] K 790.29 ABNORMAL GLUCOSE 08/02/2012 RUBINA HARLEY APRN 790.29 ABNORMAL GLUCOSE 08/02/2012 LEO BENITEZ MD 790.29 ABNORMAL GLUCOSE 08/02/2012 RUBINA HARLEY APRN 790.29 ABNORMAL GLUCOSE 08/02/2012 ARISTEO ARAYA APRN 790.29 ABNORMAL GLUCOSE 08/02/2012 GURU QUEZADA [place] R 790.29 ABNORMAL GLUCOSE 08/18/2012 466.0 ACUTE BRONCHITIS 08/18/2012 466.0 ACUTE BRONCHITIS 08/18/2012 CAAL DO, ST[place] K 466.0 ACUTE BRONCHITIS 08/18/2012 466.0 ACUTE BRONCHITIS 08/18/2012 466.0 ACUTE BRONCHITIS 08/18/2012 466.0 ACUTE BRONCHITIS 08/18/2012 CAAL DO, [place] K 466.0 ACUTE BRONCHITIS 08/18/2012 CAAL DO, [place] K 466.0 ACUTE BRONCHITIS 08/18/2012 CAAL DO, [place] K 466.0 ACUTE BRONCHITIS 08/18/2012 CAAL DO, [place] K 466.0 ACUTE BRONCHITIS 08/18/2012 CAAL DO, [place] K 466.0 ACUTE BRONCHITIS 08/18/2012 CAAL DO, [place] K 466.0 ACUTE BRONCHITIS 08/18/2012 CAAL DO, [place] K 466.0 ACUTE BRONCHITIS 08/18/2012 GURU OIL HEAT TECHNICIAN, [place] R 466.0 ACUTE BRONCHITIS 08/18/2012 CAAL DO, [place] K 466.0 ACUTE BRONCHITIS 08/18/2012 CAAL DO, [place] K 466.0 ACUTE BRONCHITIS 08/18/2012 CAAL DO, [place] K 466.0 ACUTE BRONCHITIS 08/18/2012 GURU OIL HEAT TECHNICIAN, [place] R 466.0 ACUTE BRONCHITIS 08/18/2012 CAAL DO, [place] K 466.0 ACUTE BRONCHITIS 08/18/2012 RUBINA HARLEY APRN 466.0 ACUTE BRONCHITIS 08/18/2012 LEO BENITEZ MD 466.0 ACUTE BRONCHITIS 08/18/2012 RUBINA HARLEY APRN 466.0 ACUTE BRONCHITIS 08/18/2012 ARISTEO ARAYA APRN 466.0 ACUTE BRONCHITIS 08/18/2012 GURU OIL HEAT TECHNICIAN, [place] R 466.0 ACUTE BRONCHITIS 08/26/2012 786.05 [...] 786.50 CHEST PAIN OR DISCOMFORT 08/26/2012 RUBINA HARELY APRN 786.05 SHORTNESS OF BREATH 08/26/2012 RUBINA HARLEY APRN 786.50 CHEST PAIN OR DISCOMFORT 08/26/2012 LEO BENITEZ MD 786.05 SHORTNESS OF BREATH 08/26/2012 LEO BENITEZ MD 786.50 CHEST PAIN OR DISCOMFORT 08/26/2012 RUBINA HARLEY APRN 786.05 SHORTNESS OF BREATH 08/26/2012 RUBINA HARLEY APRN 786.50 CHEST PAIN OR DISCOMFORT 08/26/2012 MARSHAL OIL HEAT TECHNICIAN, ARISTEO T 786.05 SHORTNESS OF BREATH 08/26/2012 ARISTEO [...] 845.00 SPRAIN/STRAIN ANKLE 11/13/2012 LOUIS GARVEY APRN 845.00 SPRAIN/STRAIN ANKLE 11/17/2012 272.4 HYPERLIPIDEMIA 11/17/2012 [...] CAAL DO, STANFORD K 780.79 FATIGUE 11/17/2012 ACAL DO, STANFORD K 272.4 HYPERLIPIDEMIA 11/17/2012 CAAL DO, STANFORD K 780.79 FATIGUE 11/17/2012 CAAL DO, STANFORD K 272.4 HYPERLIPIDEMIA 11/17/2012 CAAL DO, STANFORD K 780.79 FATIGUE 11/17/2012 LOUIS GARVEY APRN R 272.4 HYPERLIPIDEMIA 11/17/2012 GURU QUEZADA [place]OUIS R 780.79 FATIGUE 11/17/2012 CAAL DO, STANFORD K 272.4 HYPERLIPIDEMIA 11/17/2012 CAAL DO, STANFORD K 780.79 FATIGUE 11/17/2012 CAAL DO, STANFORD K 272.4 HYPERLIPIDEMIA 11/17/2012 CAAL DO, STANFORD K 780.79 FATIGUE 11/17/2012 CAAL DO, STANFORD K 272.4 HYPERLIPIDEMIA 11/17/2012 CAAL DO, STANFORD K 780.79 FATIGUE 11/17/2012 JENN GARVEY APRNINA R 272.4 HYPERLIPIDEMIA 11/17/2012 GURU QUEZADA LOUIS [...] APRN 780.79 FATIGUE 11/17/2012 LOUIS GARVEY APRN 272.4 HYPERLIPIDEMIA 11/17/2012 LOUIS GARVEY APRN R [...] INVOLVING SHOULDER REGION 12/17/2012 LOUIS GARVEY APRN R 719.41 PAIN IN JOINT INVOLVING SHOULDER REGION [...] GARVEY APRN 354.2 LESION OF ULNAR NERVE 04/28/2013 AFUA DO STANFORD K 354.2 LESION OF ULNAR NERVE [...] R 250.00 DIABETES II CONTROLLED (UNCOMPLICATED) 06/22/2013 CLEMENTINE CAAL DOA K 250.00 DIABETES II CONTROLLED (UNCOMPLICATED) 06/22/2013 RUBINA HARLEY APRN 250.00 DIABETES II CONTROLLED (UNCOMPLICATED) 06/22/2013 LEO BENITEZ MD 250.00 DIABETES II CONTROLLED (UNCOMPLICATED) 06/22/2013 RUBINA HARLEY APRN 250.00 DIABETES II CONTROLLED (UNCOMPLICATED) 06/22/2013 ARISTEO ARAYA APRN 250.00 DIABETES II CONTROLLED (UNCOMPLICATED) 06/22/2013 LOUIS GARVEY APRN R 250.00 DIABETES II CONTROLLED (UNCOMPLICATED) 07/05/2013 STANFORD CAAL DO K 719.47 PAIN IN JOINT INVOLVING ANKLE AND FOOT 07/05/2013 AFUA DO STANFORD K 928.3 CRUSHING INJURY OF TOE(S) 07/05/2013 LOUIS GARVEY APRN R 719.47 PAIN IN JOINT INVOLVING ANKLE AND FOOT 07/05/2013 LOUIS GARVEY APRN R 928.3 CRUSHING INJURY OF TOE(S) 07/05/2013 CLEMENTINE CAAL DOA K 719.47 PAIN IN JOINT INVOLVING ANKLE AND FOOT 07/05/2013 CAAL DO STANFORD K 928.3 CRUSHING INJURY OF TOE(S) 07/05/2013 CAAL DO STANFORD K 719.47 PAIN IN JOINT INVOLVING ANKLE AND FOOT 07/05/2013 CAAL DO STANFORD K 928.3 CRUSHING INJURY OF TOE(S) 07/05/2013 CLEMENTINE CAAL DOA K 719.47 PAIN IN JOINT INVOLVING ANKLE AND FOOT 07/05/2013 CAAL DO STANFORD K 928.3 CRUSHING INJURY OF TOE(S) 07/05/2013 JENN GARVEY APRNINA R 719.47 PAIN IN JOINT INVOLVING ANKLE AND FOOT 07/05/2013 JENN GARVEY APRNINA R 928.3 CRUSHING INJURY OF TOE(S) 07/05/2013 AFUA GARCIA STANFORD K 719.47 PAIN IN JOINT INVOLVING ANKLE AND FOOT 07/05/2013 CLEMENTINE CAAL DOA K 928.3 CRUSHING INJURY OF TOE(S) 07/05/2013 [...] IN JOINT INVOLVING ANKLE AND FOOT 07/05/2013 GURU QUEZADA LOUIS R 928.3 CRUSHING INJURY OF TOE(S) 07/30/2013 SANTO BRICENO, MIHIR Salazar Ot 786.50 CHEST PAIN NOS 09/06/2013 GURU QUEZADA, LOUIS R 564.00 CONSTIPATION 09/06/2013 GURU QUEZADA, LOUIS R 787.01 NAUSEA WITH VOMITING 09/06/2013 [...] APRN 789.00 ABDOMINAL PAIN UNSPECIFIED SITE 09/06/2013 ELI BRICENO, LEO 564.00 CONSTIPATION 09/06/2013 LEO BENITEZ MD 787.01 NAUSEA WITH VOMITING 09/06/2013 LEO BENITEZ MD 789.00 ABDOMINAL PAIN UNSPECIFIED SITE 09/06/2013 RUBINA HARLEY APRN 564.00 CONSTIPATION 09/06/2013 RUBINA HARLEY APRN 787.01 NAUSEA WITH VOMITING 09/06/2013 RUBINA HARLEY APRN 789.00 ABDOMINAL PAIN UNSPECIFIED SITE 09/06/2013 ARISTEO ARAYA APRN 564.00 CONSTIPATION 09/06/2013 ARISTEO ARAYA APRN T 787.01 NAUSEA WITH VOMITING 09/06/2013 ARISTEO ARAYA APRN T 789.00 ABDOMINAL PAIN UNSPECIFIED SITE 09/06/2013 GURU QUEZADA LOU[place] R 564.00 CONSTIPATION 09/06/2013 JENN GARVEY APRNINA R 787.01 NAUSEA WITH VOMITING 09/06/2013 GURU QUEZADA [place]OU[place] R 789.00 ABDOMINAL PAIN UNSPECIFIED SITE 10/14/2013 JAYDE ESPINO MD Ot 564.00 UNSPEC CONSTIPATION 10/14/2013 JAYDE ESPINO MD Ot 789.09 ABDOMINAL PAIN, OTHER SPECIFIED SITE 11/15/2013 CAAL DO, STANFORD K 729.1 FIBROMYALGIA 11/15/2013 CAAL DO, STANFORD K 729.1 FIBROMYALGIA 11/15/2013 GURU QUEZADA LOUIS R 729.1 FIBROMYALGIA 11/15/2013 CAAL DO, STANFORD K 729.1 FIBROMYALGIA 11/15/2013 RUBINA HARLEY APRN 729.1 FIBROMYALGIA 11/15/2013 LEO BENITEZ MD 729.1 FIBROMYALGIA 11/15/2013 RUBINA HARLEY APRN 729.1 FIBROMYALGIA 11/15/2013 ARISTEO ARAYA APRN 729.1 FIBROMYALGIA 11/15/2013 LOUIS GARVEY APRN R 729.1 FIBROMYALGIA 01/11/2014 AFUA GARCIA STANFORD K 414.00 CAD 01/11/2014 LOUIS GARVEY APRN R 414.00 CAD 01/11/2014 AFUA GARCIA, STANFORD K 414.00 CAD 01/11/2014 RUBINA HARLEY APRN 414.00 CAD 01/11/2014 LEO BENITEZ MD 414.00 CAD 01/11/2014 RUBINA HARLEY APRN 414.00 CAD 01/11/2014 ARISTEO ARAYA APRN 414.00 CAD 01/11/2014 LOUIS GARVEY APRN 414.00 CAD 02/21/2014 AFAU GARCIA STANFORD K V15.81 PERSONAL HISTORY OF [...] GENERAL 09/06/2014 LENNY CHAUHAN Ot 719.01 09/06/2014 LENNY CHAUHAN Ot 719.41 09/06/2014 RODERICK ALMANZA, LENNY M Ot 719.01 09/06/2014 LENNY CHAUHAN M Ot 719.41 09/20/2014 LOUIS GARVEY APRN 599.0 URINARY TRACT INFECTION 09/20/2014 LOUIS GARVEY APRN 780.60 FEVER, UNSPECIFIED 09/28/2014 MAN CHAUHANUA M Ot 719.01 09/28/2014 MAN CHAUHANUA M Ot 719.41 10/04/2014 LOUIS GARVEY R OIL HEAT TECHNICIAN Ot 722.10 10/04/2014 LOUIS GARVEY OIL HEAT TECHNICIAN Ot 722.10 10/05/2014 LOUIS GARVEY OIL HEAT TECHNICIAN Ot 722.10 11/04/2014 LUCRETIA BRICENO, LENNY T Ot 787.01 NAUSEA WITH VOMITING 11/04/2014 LUCRETIA BRICENO, LENNY T Ot 787.91 DIARRHEA 11/04/2014 LUCRETIA BRICENO, LENNY T Ot 789.00 ABDOMINAL PAIN, UNSPECIFIED SITE 11/15/2014 MAN CHAUHANUA M Ot 719.01 11/15/2014 MAN CHAUHANUA M Ot 719.41 11/15/2014 LOUIS GARVEY OIL HEAT TECHNICIAN Ot 722.10 11/15/2014 LOUIS GARVEY OIL HEAT TECHNICIAN Ot 722.10 11/15/2014 MAN CHAUHANUA M Ot 719.01 11/15/2014 MAN CHAUHANUA M Ot 719.41 11/27/2014 MAN CHAUHANUA M Ot 719.01 11/27/2014 RODERICK PAMANUA M Ot 719.41 11/27/2014 LOUIS GARVEY OIL HEAT TECHNICIAN Ot 722.10 02/17/2015 RODERICK PA, LENNY M Ot 719.01 02/17/2015 MAN CHAUHANUA M Ot 719.41 02/17/2015 LOUIS GARVEY OIL HEAT TECHNICIAN Ot 722.10 02/17/2015 ILYA ELLIS MD Ot 490 BRONCHITIS NOS 02/17/2015 ILYA ELLIS MD Ot 786.2 COUGH 02/17/2015 MAN CHAUHANUA M Ot 719.01 02/17/2015 RODERICK PALENNY M Ot 719.41 02/17/2015 LOUIS GARVEY OIL HEAT TECHNICIAN Ot 722.10 10/17/2015 SUKUMAR CASE Ot E86.9 VOLUME DEPLETION, UNSPECIFIED 10/17/2015 SUKUMAR CASE Ot K57.90 DVRTCLOS OF INTEST, PART UNSP, W/O PERF 10/17/2015 SUKUMAR CASE Ot R10.84 GENERALIZED ABDOMINAL PAIN 10/17/2015 SUKUMAR CASE Ot R11.2 NAUSEA WITH VOMITING, UNSPECIFIED 10/17/2015 SUKUMAR CASE Ot R19.7 DIARRHEA, UNSPECIFIED 10/17/2015 LENNY CHAUHAN Ot 719.01 JOINT EFFUSION-SHLDER 10/17/2015 LENNY CHAUHAN Ot 719.41 JOINT PAIN-SHLDER 10/17/2015 LOUIS GARVEY OIL HEAT TECHNICIAN Ot 722.10 LUMBAR DISC DISPLACEMENT 10/17/2015 LENNY CHAUHAN Ot 719.01 JOINT EFFUSION-SHLDER 10/17/2015 LENNY CHAUHAN Ot 719.41 JOINT PAIN-SHLDER 10/17/2015 LOUIS GARVEY OIL HEAT TECHNICIAN Ot 722.10 LUMBAR DISC DISPLACEMENT 10/18/2015 SUKUMAR CASE Ot E86.9 VOLUME DEPLETION, UNSPECIFIED 10/18/2015 SUKUMAR CASE Ot K57.90 DVRTCLOS OF INTEST, PART UNSP, W/O PERF 10/18/2015 SUKUMAR CASE Ot R10.84 GENERALIZED ABDOMINAL PAIN 10/18/2015 SUKUMAR CASE Ot R11.2 NAUSEA WITH VOMITING, UNSPECIFIED 10/18/2015 SUKUMAR CASE Ot R19.7 DIARRHEA, UNSPECIFIED 01/05/2016 SHAN BLACK APRN Ot M54.2 CERVICALGIA 01/05/2016 SHAN BLACK APRN Ot R52 PAIN, UNSPECIFIED 01/05/2016 SHAN BLACK OIL HEAT TECHNICIAN Ot S09.90XA UNSPECIFIED INJURY OF HEAD, INITIAL ENCO 01/05/2016 SHAN BLACK OIL HEAT TECHNICIAN Ot W01.0XXA FALL SAME LEV FROM SLIP/TRIP W/O STRIKE 01/05/2016 SHAN BLACK OIL HEAT TECHNICIAN Ot Y92.[address] IN UNSP NON-INSTITUT (PRIVATE 01/05/2016 SHAN BLACK OIL HEAT TECHNICIAN Ot Y99.8 OTHER EXTERNAL CAUSE STATUS 01/05/2016 RODERICK ALMANZA, LENNY Desai Ot 719.01 JOINT EFFUSION-SHLDER 01/05/2016 LENNY CHAUHAN M Ot 719.41 JOINT PAIN-SHLDER 01/05/2016 LOUIS GARVEY OIL HEAT TECHNICIAN Ot 722.10 LUMBAR DISC DISPLACEMENT 01/06/2016 LENNY BOYKIN MD Ot E78.0 PURE HYPERCHOLESTEROLEMIA 01/06/2016 LENNY BOYKIN MD Ot I10 ESSENTIAL (PRIMARY) HYPERTENSION 01/06/2016 LENNY BOYKIN MD Ot R07.89 OTHER CHEST PAIN 01/06/2016 LENNY BOYKIN MD Ot R07.9 CHEST PAIN, UNSPECIFIED 01/06/2016 LENNY BOYKIN MD Ot R10.13 EPIGASTRIC PAIN 01/06/2016 LENNY CHAUHAN Ot 719.01 JOINT EFFUSION-SHLDER 01/06/2016 LENNY CHAUHAN Ot 719.41 JOINT PAIN-SHLDER 01/06/2016 LOUIS GARVEY OIL HEAT TECHNICIAN Ot 722.10 LUMBAR DISC DISPLACEMENT 01/29/2016 LENNY [...] Ot 719.41 JOINT PAIN-SHLDER 06/06/2016 LOUIS GARVEY APRN Ot 722.10 LUMBAR DISC DISPLACEMENT 06/07/2016 SHAN BLACK APRN Ot M54.2 CERVICALGIA 06/07/2016 SHAN BLACK APRN Ot R52 PAIN, UNSPECIFIED 06/07/2016 SHAN BLACK OIL HEAT TECHNICIAN Ot S09.90XA UNSPECIFIED INJURY OF HEAD, INITIAL ENCO 06/07/2016 SHAN BLACK APRN Ot W01.0XXA FALL SAME LEV FROM SLIP/TRIP W/O STRIKE 06/07/2016 SHAN BLACK APRN Ot Y92.[address] [facility] [address] IN [facility] NON-INSTITUT (PRIVATE 06/07/2016 SHAN BLACK APRN Ot Y99.8 OTHER EXTERNAL CAUSE STATUS 06/14/2016 SUKUMAR CASE Ot E86.9 VOLUME DEPLETION, UNSPECIFIED 06/14/2016 SUKUMAR CASE Ot K57.90 DVRTCLOS OF INTEST, PART [facility], W/O PERF 06/14/2016 SUKUMAR CASE Ot R10.84 GENERALIZED ABDOMINAL PAIN 06/14/2016 SUKUMAR CASE Ot R11.2 NAUSEA WITH VOMITING, UNSPECIFIED 06/14/2016 SUKUMAR CASE Ot R19.7 DIARRHEA, UNSPECIFIED 06/14/2016 LENNY BOYKIN MD Ot E78.0 PURE HYPERCHOLESTEROLEMIA 06/14/2016 BRUEGGEMANN MD, LENNY T Ot I10 ESSENTIAL (PRIMARY) HYPERTENSION 06/14/2016 LUCRETIA BRICENO, LENNY T Ot R07.89 OTHER CHEST PAIN 06/14/2016 LUCRETIA BRICENO, LENNY T Ot R07.9 CHEST PAIN, UNSPECIFIED 06/14/2016 LUCRETIA BRICENO, LENNY T Ot R10.13 EPIGASTRIC PAIN 11/13/2016 HARLEY, LYNDSEY INSTRUCTOR OF SPANISH Ot E11.9 TYPE 2 DIABETES MELLITUS WITHOUT COMPLIC 11/13/2016 HARLEY, LYNDSEY INSTRUCTOR OF SPANISH Ot I10 ESSENTIAL (PRIMARY) HYPERTENSION 11/13/2016 HARLEY, LYNDSEY INSTRUCTOR OF SPANISH Ot M54.41 LUMBAGO WITH SCIATICA, RIGHT SIDE 11/13/2016 HARLEY, LYNDSEY INSTRUCTOR OF SPANISH Ot M54.42 LUMBAGO WITH SCIATICA, LEFT SIDE 11/13/2016 HARLEY, LYNDSEY INSTRUCTOR OF SPANISH Ot S39.92XA UNSPECIFIED INJURY OF LOWER BACK, INITIA 11/13/2016 HARLEY, LYNDSEY INSTRUCTOR OF SPANISH Ot W01.0XXA FALL SAME LEV FROM SLIP/TRIP W/O STRIKE 11/13/2016 HARLEY, LYNDSEY INSTRUCTOR OF SPANISH Ot Y92.[address] IN [facility] NON-MT. [facility] ([facility] 11/13/2016 HARLEY, LYNDSEY INSTRUCTOR OF SPANISH Ot Y93.E5 ACTIVITY, FLOOR MOPPING AND CLEANING 11/15/2016 HARLEY, LYNDSEY INSTRUCTOR OF SPANISH Ot E11.9 TYPE 2 DIABETES MELLITUS WITHOUT COMPLIC 11/15/2016 HARLEY, LYNDSEY INSTRUCTOR OF SPANISH Ot I10 ESSENTIAL (PRIMARY) HYPERTENSION 11/15/2016 HARLEY, LYNDSEY INSTRUCTOR OF SPANISH Ot M54.41 LUMBAGO WITH SCIATICA, RIGHT SIDE 11/15/2016 HARLEY, LYNDSEY INSTRUCTOR OF SPANISH Ot M54.42 LUMBAGO WITH SCIATICA, LEFT SIDE 11/15/2016 HARLEY, LYNDSEY INSTRUCTOR OF SPANISH Ot S39.92XA UNSPECIFIED INJURY OF LOWER BACK, INITIA 11/15/2016 HARLEY, LYNDSEY INSTRUCTOR OF SPANISH Ot W01.0XXA FALL SAME LEV FROM SLIP/TRIP W/O STRIKE 11/15/2016 HARLEY, LYNDSEY INSTRUCTOR OF SPANISH Ot Y92.[address] IN [facility] NON-MT. [facility] ([facility] 11/15/2016 HARLEY, LYNDSEY INSTRUCTOR OF SPANISH Ot Y93.E5 ACTIVITY, FLOOR MOPPING AND CLEANING [...] DIABETES MELLITUS WITHOUT COMPLIC 03/13/2017 LYNDSEY SOUZA INSTRUCTOR OF SPANISH Ot I10 ESSENTIAL (PRIMARY) HYPERTENSION 03/13/2017 LYNDSEY SOUZA INSTRUCTOR OF SPANISH Ot M54.41 LUMBAGO WITH SCIATICA, RIGHT SIDE 03/13/2017 LYNDSEY SOUZA Ot M54.42 LUMBAGO WITH SCIATICA, LEFT SIDE 03/13/2017 LYNDSEY SOUZA Ot S39.92XA UNSPECIFIED INJURY OF LOWER BACK, INITIA 03/13/2017 LYNDSEY SOUZA Ot W01.0XXA FALL SAME LEV FROM SLIP/TRIP W/O STRIKE 03/13/2017 LYNDSEY SOUZA Ot Y92.[address] IN [facility] NON-MT. [facility] (PRIVATE 03/13/2017 LYNDSEY SOUZA Ot Y93.E5 ACTIVITY, [...] HISTORY OF OTHER DISEASES OF TH 2017 SUKUMAR CASE Ot Z87.442 PERSONAL HISTORY OF URINARY CALCULI 06/22/2018 TRACY ZARAGOZA Ot E11.9 TYPE 2 DIABETES MELLITUS WITHOUT COMPLIC 06/22/2018 TRACY ZARAGOZA Ot E78.00 PURE HYPERCHOLESTEROLEMIA, UNSPECIFIED 06/22/2018 TRACY ZARAGOZA Ot F32.9 MAJOR DEPRESSIVE DISORDER, SINGLE EPISOD 06/22/2018 TRACY ZARAGOZA Ot F41.9 ANXIETY DISORDER, UNSPECIFIED 06/22/2018 TRACY ZARAGOZA Ot F43.10 POST-TRAUMATIC STRESS DISORDER, UNSPECIF 06/22/2018 TRACY ZARAGOZA Ot F90.9 ATTENTION-DEFICIT HYPERACTIVITY DISORDER 06/22/2018 TRACY ZARAGOZA Ot F98.8 OT BEHAV/EMOTN DISORD W ONSET USLY OCCU 06/22/2018 TRACY ZARAGOZA Ot G43.909 MIGRAINE, UNSP, NOT INTRACTABLE, WITHOUT 06/22/2018 TRACY ZARAGOZA Ot I10 ESSENTIAL (PRIMARY) HYPERTENSION 06/22/2018 TRACY ZARAGOZA Ot I25.2 OLD MYOCARDIAL INFARCTION 06/22/2018 TRACY ZARAGOZA Ot J45.909 UNSPECIFIED ASTHMA, UNCOMPLICATED 06/22/2018 TRACY ZARAGOZA Ot K21.9 GASTRO-ESOPHAGEAL REFLUX DISEASE WITHOUT 06/22/2018 TRACY ZARAGOZA Ot N13.2 HYDRONEPHROSIS WITH RENAL AND URETERAL C 06/22/2018 TRACY ZARAGOZA Ot N39.0 URINARY TRACT INFECTION, SITE NOT SPECIF 06/22/2018 TRACY ZARAGOZA Ot R10.9 UNSPECIFIED ABDOMINAL PAIN 06/22/2018 TRACY ZARAGOZA Ot Z87.19 PERSONAL HISTORY OF OTHER DISEASES OF TH 06/22/2018 TRACY ZARAGOZA Ot Z87.442 PERSONAL HISTORY OF URINARY CALCULI 06/22/2018 TRACY ZARAGOZA Ot Z88.8 ALLERGY STATUS TO OT DRUG/MEDS/BIOL SUB 06/22/2018 TRACY ZARAGOZA Ot Z98.890 OTHER SPECIFIED POSTPROCEDURAL STATES 06/25/2018 TRACY ZARAGOZA Ot E11.9 TYPE 2 DIABETES MELLITUS WITHOUT COMPLIC 06/25/2018 TRACY ZARAGOZA Ot E78.00 PURE HYPERCHOLESTEROLEMIA, UNSPECIFIED 06/25/2018 TRACY ZARAGOZA Ot F32.9 MAJOR DEPRESSIVE DISORDER, SINGLE EPISOD 06/25/2018 TRACY ZARAGOZA Ot F41.9 ANXIETY DISORDER, UNSPECIFIED 06/25/2018 TRACY ZARAGOZA Ot F43.10 POST-TRAUMATIC STRESS DISORDER, UNSPECIF 06/25/2018 TRACY ZARAGOZA Ot F90.9 ATTENTION-DEFICIT HYPERACTIVITY DISORDER 06/25/2018 TRACY ZARAGOZA Ot F98.8 OTH BEHAV/EMOTN DISORD W ONSET USLY OCCU 06/25/2018 TRACY ZARAGOZA Ot G43.909 MIGRAINE, UNSP, NOT INTRACTABLE, WITHOUT 06/25/2018 TRACY ZARAGOZA Ot I10 ESSENTIAL (PRIMARY) HYPERTENSION 06/25/2018 TRACY ZARAGOZA Ot I25.2 OLD MYOCARDIAL INFARCTION 06/25/2018 TRACY ZARAGOZA Ot J45.909 UNSPECIFIED ASTHMA, UNCOMPLICATED 06/25/2018 TRACY ZARAGOZA Ot K21.9 GASTRO-ESOPHAGEAL REFLUX DISEASE WITHOUT 06/25/2018 TRACY ZARAGOZA Ot N13.2 HYDRONEPHROSIS WITH RENAL AND URETERAL C 06/25/2018 TRACY ZARAGOZA Ot N39.0 URINARY TRACT INFECTION, SITE NOT SPECIF 06/25/2018 TRACY ZARAGOZA Ot R10.9 UNSPECIFIED ABDOMINAL PAIN 06/25/2018 TRACY ZARAGOZA Ot Z87.19 PERSONAL HISTORY OF OTHER DISEASES OF TH 06/25/2018 TRACY ZARAGOZA Ot Z87.442 PERSONAL HISTORY OF URINARY CALCULI 06/25/2018 TRACY ZARAGOZA Ot Z88.8 ALLERGY STATUS TO OTH DRUG/MEDS/BIOL SUB 06/25/2018 TRACY ZARAGOZA Ot Z98.890 OTHER SPECIFIED POSTPROCEDURAL STATES Procedures Code Description [place] [address] XRAY ELBOW L 2 VIEWS 05/06/2012 02153 XRAY SPINE 1 VIEW 07/08/2012 96678 XRAY CERVICAL SPINE, 2 OR 3 VIEWS 07/21/2012 32715 XRAY THORACIC SPINE 2 VIEWS 07/21/2012 28194 XRAY LUMBAR SPINE 2 OR 3 VIEWS 07/21/2012 70816 ROUTINE VENIPUNCTURE 08/02/2012 81612 CMP 08/02/2012 81217 LIPID PANEL 08/02/2012 2171507 GFR CALC (RESULT ONLY) 08/02/2012 73341 THERAPUTIC INJ SQ/IM 08/04/2012 J1885 TORADOL PER 15 MG, INJ KETOROLAC TROMETHAMINE 08/04/2012 71329 ROUTINE VENIPUNCTURE 08/26/2012 52639 BNP 08/26/2012 04146 CRP HS (CARDIO) 08/26/2012 56135 CARDIOVASCULAR STRESS TEST 08/27/2012 47547 EKG, TRACING (IN-HOUSE) 08/27/2012 12319 OXIMETRY 11/22/2012 19360 OXIMETRY 12/06/2012 88741 ROUTINE VENIPUNCTURE 04/05/2013 7203989 GFR CALC (RESULT ONLY) 04/05/2013 93516 CMP 04/05/2013 02834 LIPID PANEL 04/05/2013 42570 INFLUENZA A & B (IN-HOUSE) 06/21/2013 75939 XRAY FOOT LEFT 2 VIEWS 07/05/2013 62076 XRAY ABDOMEN 2 VIEWS 09/13/2013 27381 XRAY SHOULDER LEFT COMP 2 VIEWS 01/25/2014 38024 OXIMETRY 01/25/2014 01464 MRI EXTREMITY, UPPER LEFT, W /O CONTRAST 02/21/2014 85526 JOINT INJECTION- INTERMEDIATE JOINT 04/20/2014 J1040 DEPO MEDROL 80 MG INJ 04/20/2014 81708 XRAY LUMBAR SPINE 2 OR 3 VIEWS 09/20/2014 87753 MRI SPINE (LUMBAR) W/O CONTRAST 09/20/2014 82342 UA W/ CULTURE IF INDICATED 09/20/2014 Results [...] - 04/03/16 19:45 Bacterial blood culture NG [facility] Bacterial blood culture - 04/03/16 20:53 Bacterial blood culture [facility] Complete blood count (CBC) with automated white [...] GRAM STAIN SPUTUM AND MIXED BACTERIAL BRENNON [facility] Bacterial sputum culture - 04/04/16 05:40 Bacterial sputum culture NORMAL [facility] Complete blood count (CBC) with automated white [...] Complete urinalysis with reflex to culture - 08/09/17 16:11 Urine color determination YELLOW NRG Urine [...] culture - 01/18/17 11:30 Bacterial urine culture [id number] NRG COLONY COUNT 10,000/ML - 100,000/ML NRG [...] susceptibility test by minimum inhibitory concentration - NRG Complete blood count (CBC) with automated [...] Complete urinalysis with reflex to culture YES [facility] Comprehensive metabolic panel - 03/05/17 21:05 Serum [...] calculation of estimated glomerular filtration rate > [facility] Serum or plasma glucose measurement (mass/volume) 196 [...] - 03/05/17 21:05 URINE CULTURE RESULTS <10,000/ML [facility] LIPID PANEL - 08/13/17 12:18 CHOLESTEROL, TOTAL 145 mg/dL <200 HDL CHOLESTEROL 41 mg/dL >50 TRIGLYCERIDES 182 mg/dL <150 LDL-CHOLESTEROL 76 mg/dL (calc) [facility] CHOL/HDLC RATIO 3.5 (calc) <5.0 NON HDL CHOLESTEROL 104 mg/dL (calc) <130 CMP - 08/13/17 12:18 GLUCOSE 249 mg/dL 65-99 UREA NITROGEN (BUN) 10 mg/dL 7-25 CREATININE 0.66 mg/dL 0.50-1.10 eGFR NON-AFR. GUINEAN 104 mL/min/1.73m2 > OR=60 eGFR 120 mL/min/1.73m2 [...] 11.5 fL 7.5-12.5 ABSOLUTE NEUTROPHILS 4745 cells/uL [id number] ABSOLUTE LYMPHOCYTES 1901 cells/uL [phone] ABSOLUTE MONOCYTES [...] 7-25 CREATININE 0.70 mg/dL 0.50-1.10 eGFR NON-AFR. GUINEAN 102 mL/min/1.73m2 > OR=60 eGFR 118 mL/min/1.73m2 [...] TSH - 11/11/17 09:08 TSH 2.15 mIU/L NRG BNP - 11/11/17 09:11 B TYPE NATRIURETIC [...] 0.0 10*3/uL 0.0-0.1 Comprehensive metabolic panel - 06/19/18 13:19 Serum or plasma sodium measurement (moles/volume) 140 mmol/L 135-145 Serum or plasma potassium measurement (moles/volume) 4.5 mmol/L 3.6-5.0 Serum or plasma chloride measurement (moles/volume) 104 mmol/L 98-107 Carbon dioxide 22 mmol/L 21-32 Serum or plasma anion gap determination (moles/volume) 14 mmol/L 5-14 Serum or plasma urea nitrogen measurement (mass/volume) 11 mg/dL 7-18 Serum or plasma creatinine measurement (mass/volume) 0.94 mg/dL 0.60-1.30 Serum or plasma urea nitrogen/creatinine mass ratio 12 NRG Serum or plasma creatinine measurement with calculation of estimated glomerular filtration rate > NRG Serum or plasma glucose measurement (mass/volume) 169 mg/dL 70-105 Serum or plasma calcium measurement (mass/volume) 9.6 mg/dL 8.5-10.1 Serum or plasma total bilirubin measurement (mass/volume) 0.7 mg/dL 0.1-1.0 Serum or plasma alkaline phosphatase measurement (enzymatic activity/volume) 43 U/L 40-136 Serum or plasma aspartate aminotransferase measurement (enzymatic activity/ volume) 15 U/L 5-34 Serum or plasma alanine aminotransferase measurement (enzymatic activity/volume ) 13 U/L 0-55 Serum or plasma protein measurement (mass/volume) 7.7 g/dL 6.4-8.2 Serum or plasma albumin measurement (mass/volume) 4.2 g/dL 3.2-4.5 CALCIUM CORRECTED 9.4 mg/dL 8.5-10.1 Serum or plasma amylase measurement (enzymatic activity/volume) - 06/19/18 13: 19 Serum or plasma amylase measurement (enzymatic activity/volume) 49 U /L 25-125 Lipase - 06/19/18 13:19 Lipase 21 U/L 8-78 Complete urinalysis with reflex to culture - 06/19/18 14:15 Urine color determination YELLOW NRG Urine clarity determination VERY CLOUDY NRG Urine pH measurement by test strip 8 5-9 Specific gravity of urine by test strip 1.015 1.016- 1.022 Urine protein assay by test strip, semi-quantitative 2+ NEGATIVE Urine glucose detection by automated test strip NEGATIVE NEGATIVE Erythrocytes detection in urine sediment by light microscopy 2+ NEGATIVE Urine ketones detection by automated test strip NEGATIVE NEGATIVE Urine nitrite detection by test strip POSITIVE NEGATIVE Urine total bilirubin detection by test strip NEGATIVE NEGATIVE Urine urobilinogen measurement by automated test strip (mass/volume) NORMAL NORMAL Urine leukocyte esterase detection by dipstick 2+ NEGATIVE Automated urine sediment erythrocyte count by [...] culture YES NRG Bacterial urine culture - 06/19/18 14:15 Bacterial urine culture [id number] NRG COLONY COUNT >100,000/ML NRG FREE TEXT ENTRY 3 RML SENT ID REPORT 06/21 06:05 NRG Encounters ACCT No. Visit Date/Time Discharge Status Pt. Type Provider Facility Loc./Unit Complaint [id number] 09/20/2014 09:43:00 09/20/2014 23:59:59 CLS Outpatient LOUIS GARVEY APRN [id number] 08/23/2014 17:49:00 08/23/2014 23:59:59 CLS Outpatient ARISTEO ARAYA APRN [id number] 06/22/2014 13:52:00 06/22/2014 23:59:59 CLS Outpatient RUBINA HARLEY APRN [id number] 06/06/2014 08:52:00 06/06/2014 23:59:59 CLS Outpatient LEO BENITEZ MD [id number] 04/20/2014 13:59:00 04/20/2014 23:59:59 CLS Outpatient RUBINA HARLEY APRN [id number] 02/21/2014 14:28:00 02/21/2014 23:59:59 CLS Outpatient STANFORD CAAL DO [id number] 01/25/2014 14:15:00 01/25/2014 23:59:59 CLS Outpatient LOUIS GARVEY APRN [id number] 01/11/2014 10:56:00 01/11/2014 23:59:59 CLS Outpatient STANFORD CAAL DO [id number] 11/15/2013 16:22:00 11/15/2013 23:59:59 CLS Outpatient CAAL DOSTANFORD [id number] 09/13/2013 10:27:00 09/13/2013 23:59:59 CLS Outpatient CAAL DOSTANFORD [id number] 09/06/2013 09:35:00 09/06/2013 23:59:59 CLS Outpatient LOUIS GARVEY APRN [id number] 07/05/2013 14:37:00 07/05/2013 23:59:59 CLS Outpatient CAAL DOSTANFORD [id number] 06/22/2013 09:51:00 06/22/2013 23:59:59 CLS Outpatient CAAL DOSTANFORD [id number] 04/29/2013 10:37:00 04/29/2013 23:59:59 CLS Outpatient CAAL DO, STANFORD Rouse [id number] 04/28/2013 13:11:00 04/28/2013 23:59:59 CLS Outpatient CAAL DOSTANFORD [id number] 04/05/2013 11:27:00 04/05/2013 23:59:59 CLS Outpatient CAAL DOSTANFORD [id number] 03/04/2013 10:00:00 03/04/2013 23:59:59 CLS Outpatient CAAL DOSTANFORD [id number] 01/14/2013 00:00:00 01/14/2013 23:59:59 CLS Outpatient CAAL DOSTANFORD [id number] 08/27/2012 09:15:00 08/27/2012 23:59:59 CLS Outpatient CAAL DOSTANFORD [id number] 08/26/2012 11:06:00 08/26/2012 23:59:59 CLS Outpatient [id number] 08/18/2012 18:10:00 08/18/2012 23:59:59 CLS Outpatient [id number] 08/04/2012 17:27:00 08/04/2012 23:59:59 CLS Outpatient CAAL DOSTANFORD [id number] 08/02/2012 09:43:00 08/02/2012 23:59:59 CLS Outpatient CAAL DO, STANFORD Rouse [id number] 07/31/2012 09:14:00 07/31/2012 23:59:59 CLS Outpatient [id number] 07/08/2012 08:39:00 07/08/2012 23:59:59 CLS Outpatient CAAL DOSTANFORD [id number] 07/01/2012 14:28:00 07/01/2012 23:59:59 CLS Outpatient [id number] 05/06/2012 15:01:00 05/06/2012 23:59:59 CLS Outpatient [id number] 04/07/2012 18:18:00 04/07/2012 23:59:59 CLS Outpatient STANFORD CAAL DO [id number] 12/06/2012 11:39:00 Document Registration [id number] 11/17/2012 09:44:00 Document Registration [id number] 11/13/2012 13:01:00 Document Registration [id number] 06/19/2018 13:14:00 06/19/2018 15:49:00 DIS Outpatient TRACY ZARAGOZA [facility] ER NAUSEA [id number] 03/12/2017 09:30:00 03/12/2017 23:59:59 CLS Preadmit ARISTEO ARAYA [facility] RAD R10.84 [id number] 03/05/2017 20:36:00 03/05/2017 23:00:00 DIS Emergency SHAN BLACK APRN [facility] ER ABDOMINAL PAIN,NAUSEA, VOMITING [id number] 01/18/2017 10:33:00 01/18/2017 13:10:00 DIS Outpatient SUKUMAR CASE [facility] ER KIDNEY STONE [id number] 01/14/2017 14:53:00 01/14/2017 17:09:00 DIS Emergency SHAN BLACK APRN [facility] ER SIDE,BACK PAIN [id number] 11/13/2016 11:25:00 11/13/2016 15:26:00 DIS Emergency LYNDSEY SOUZA [facility] ER FALL-BACK PAIN [id number] 04/03/2016 21:10:00 04/04/2016 15:00:00 DIS Inpatient NICOLA BRICENO, TAYLOR Hwang [facility] 4TH PNEUMONIA LLL, UTI, SEPSIS [id number] 01/06/2016 20:40:00 01/06/2016 22:25:00 DIS Outpatient LENNY BOYKIN MD [facility] ER CHEST PAIN [id number] 01/05/2016 13:31:00 01/05/2016 15:25:00 DIS Emergency SHAN BLACK OIL HEAT TECHNICIAN [facility] ER FALL [id number] 10/17/2015 17:12:00 10/17/2015 19:20:00 DIS Outpatient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
[2018-09-22 20:17] VITALS: BP 122/82
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
== END 2018-09-22 20:17 | disposition home or self-care (01) ==
LOC: EDUNIT# 19:33 → ER 19:34
DX: M54.9 Dorsalgia, unspecified (principal); J45.909 Unspecified asthma, uncomplicated; I25.2 Old myocardial infarction; E78.00 Pure hypercholesterolemia, unspecified; I10 Essential (primary) hypertension; G43.909 Migraine, unspecified, not intractable, without status migrainosus; K21.9 Gastro-esophageal reflux disease without esophagitis; K58.9 Irritable bowel syndrome, unspecified; M79.7 Fibromyalgia; E11.9 Type 2 diabetes mellitus without complications; F90.9 Attention-deficit hyperactivity disorder, unspecified type; F41.9 Anxiety disorder, unspecified; F98.8 Other specified behavioral and emotional disorders with onset usually occurring in childhood and adolescence; F43.10 Post-traumatic stress disorder, unspecified; F32.9 Major depressive disorder, single episode, unspecified; R40.2142 Coma scale, eyes open, spontaneous, at arrival to emergency department; R40.2252 Coma scale, best verbal response, oriented, at arrival to emergency department; R40.2362 Coma scale, best motor response, obeys commands, at arrival to emergency department; Z87.19 Personal history of other diseases of the digestive system; Z87.442 Personal history of urinary calculi; Z88.8 Allergy status to other drugs, medicaments and biological substances; V49.50XA Passenger injured in collision with unspecified motor vehicles in traffic accident, initial encounter
CPT/HCPCS: 72100

== ENCOUNTER 2019-02-27 18:09 | Inpatient (IN) | payer MEDICAID ==
[~2019-02-27] VITALS: Ht 154 cm; Wt 108.9 kg
[~2019-02-27 18:09] MED LIST changes: -DULO60CA58 PO; +DULO60CA59 PO
[2019-02-27] MEDS ORDERED: LACTATED RINGERS 1,000 ML IV ONE (18:28)
[2019-02-27] MEDS ORDERED: ONDANSETRON 4 MG/2 ML (SDV) Z0FRAN IVP ONE (18:30)
[2019-02-27] MEDS ORDERED: PANTOPRAZOLE 40 MG (PROTONIX) VIAL IV ONE (18:45)
[2019-02-27 18:47] LABS: BASOPHILS % (AUTO) 0 % (0-10); EOSINOPHILS # (AUTO) 0.1 10^3/uL (0.0-0.3); EOSINOPHILS % (AUTO) 1 % (0-10); HEMATOCRIT 44 % (35-52); HEMOGLOBIN 14.6 G/DL (11.5-16.0); LYMPHOCYTES # (AUTO) 2.4 X 10^3 (1.0-4.0); LYMPHOCYTES % (AUTO) 26 % (12-44); MEAN CORPUSCULAR HEMOGLOBIN 27 PG (25-34); MEAN CORPUSCULAR HGB CONC 33 G/DL (32-36); MEAN CORPUSCULAR VOLUME 82 FL (80-99); MEAN PLATELET VOLUME 11.7 FL (7.4-10.4); MONOCYTES # (AUTO) 0.7 X 10^3 (0.0-1.0); MONOCYTES % (AUTO) 8 % (0-12); NEUTROPHILS # (AUTO) 6.2 X 10^3 (1.8-7.8); NEUTROPHILS % (AUTO) 65 % (42-75); PLATELET COUNT 284 10^3/uL (130-400); WHITE BLOOD COUNT 9.5 10^3/uL (4.3-11.0)
[2019-02-27 18:57] LABS: PROTHROMBIN TIME PATIENT 13.5 SEC (12.2-14.7)
[2019-02-27 19:06] LABS: ALBUMIN 4.5 GM/DL (3.2-4.5); CALCIUM 9.9 MG/DL (8.5-10.1); CREATININE SERUM 1.4 MG/DL (0.60-1.30); MAGNESIUM 1.8 MG/DL (1.6-2.4); POTASSIUM 4.2 MMOL/L (3.6-5.0); TOTAL PROTEIN 8.4 GM/DL (6.4-8.2)
[2019-02-27] MEDS ORDERED: inSUlin (REGULAR) HUMAN 1 UNIT/0.01 ML (CHARGE PER UNIT) IV ONE (19:15)
[2019-02-27] MEDS ORDERED: NS IV 1000 ML 1,000 ML ONE (19:32)
[2019-02-27] MEDS: NS IV 1000 ML 1,000 ML IV SCH ×3 (19:49→22:30)
[2019-02-27 19:57] LABS: BILIRUBIN,URINE NEGATIVE (NEGATIVE); CLARITY,URINE CLEAR; COLOR,URINE YELLOW; GLUCOSE, URINE (UA) 4+ (NEGATIVE); KETONES,URINE 4+ (NEGATIVE); LEUKOCYTE ESTERASE ,URINE NEGATIVE (NEGATIVE); NITRITE,URINE NEGATIVE (NEGATIVE); PH,URINE 6 (5-9); PROTEIN,URINE 2+ (NEGATIVE); UROBILINOGEN,URINE NORMAL (NORMAL)
[2019-02-27 20:13] LABS: AMPHETAMINE SCREEN, URINE NEGATIVE (NEGATIVE); BARBITURATE SCREEN URINE NEGATIVE (NEGATIVE); BENZODIAZEPINES SCREEN URINE NEGATIVE (NEGATIVE); CANNABINOID SCREEN, URINE NEGATIVE (NEGATIVE); COCAINE SCREEN URINE NEGATIVE (NEGATIVE); METHADONE STAT NEGATIVE (NEGATIVE); METHAMPHETAMINE SCREEN URINE S NEGATIVE (NEGATIVE); OPIATE SCREEN URINE NEGATIVE (NEGATIVE); OXYCODONE STAT NEGATIVE (NEGATIVE); PROPOXYPHENE STAT NEGATIVE (NEGATIVE); TRICYCLIC ANTIDEPRESSANTS SCRE NEGATIVE (NEGATIVE)
[2019-02-27 20:19] LABS: BACTERIA,URINE NEGATIVE /HPF
[2019-02-27 20:49] LABS: ABG BASE EXCESS -3.7 MMOL/L (-2.5-2.5); ABG OXYGEN SATURATION 98 % (94-100); ABG PCO2 31 MMHG (35-45); ABG PH 7.42 (7.37-7.43); ABG PO2 94 MMHG (79-93); ABG TCO2 21.1 MMOL/L (21.0-31.0)
[2019-02-27 20:51] LABS: ALLENS TEST POS; INSPIRED O2 ROOM AIR; PATIENT TEMP 97.5; VENTILATOR NO
[2019-02-27 21:49] VITALS: BP 151/97
[2019-02-27 22:00] VITALS: BP 128/99
[2019-02-27] MEDS ORDERED: ONDANSETRON 4 MG/2 ML (SDV) Z0FRAN IV PRN (22:30)
[2019-02-27] MEDS ORDERED: NS IV 1000 ML X 1 WIDE OPEN IV ONE (22:30)
[2019-02-27] MEDS ORDERED: 1/2 NS IV SOLUTION 1,000 ML IV SCH (22:30)
[2019-02-27] MEDS ORDERED: REGULAR inSUlin DRIP 250 UNITS/NS 250 ML IV SCH ×2 (22:30)
[2019-02-27] MEDS ORDERED: D5 1/2 NS IV 1,000 ML IV SCH (22:30)
[2019-02-27] MEDS ORDERED: DEXTROSE 10% IV SOLUTION 1,000 ML IV SCH (22:30)
[2019-02-27] MEDS ORDERED: ENOXAPARIN 40 MG/0.4 ML (LOVENOX) SYR SC SCH (22:30)
[2019-02-27 23:01] LABS: BUN/CREATININE RATIO 10; CALCIUM 8.3 MG/DL (8.5-10.1); CARBON DIOXIDE 20 MMOL/L (21-32); CHLORIDE 108 MMOL/L (98-107); CREATININE SERUM 0.94 MG/DL (0.60-1.30); GFR ESTIMATED > 60; GLUCOSE 163 MG/DL (70-105); POTASSIUM 3.9 MMOL/L (3.6-5.0); SODIUM 140 MMOL/L (135-145)
[2019-02-27 23:43] VITALS: BP 149/88
[2019-02-28] VITALS (12 sets, daily range): BP systolic 122–169; BP diastolic 71–97
[2019-02-28] MEDS ORDERED: inSUlin ASPART (NovoLOG) 1 UNIT/0.01 ML (CHARGE PER UNIT) ONE (00:03)
[2019-02-28] MEDS: inSUlin ASPART (NovoLOG) 1 UNIT/0.01 ML (CHARGE PER UNIT) SC SCH ×7 (00:17→20:49)
[2019-02-28] MEDS: NS IV 1000 ML 1,000 ML IV SCH ×3 (00:17→18:41)
[2019-02-28] MEDS: POTASSIUM CL 10MEQ/50ML IVPB X 4 (TOTAL 40 MEQ) IV SCH ×4 (00:18→01:33)
[2019-02-28] MEDS: POTASSIUM CL 10MEQ/50ML IVPB 50 ML IV SCH ×11 (00:19→12:58)
[2019-02-28] MEDS ORDERED: ACETAMINOPHEN 500 MG TAB (TYLENOL) ONE (01:14)
[2019-02-28 03:29] LABS: BASOPHILS % (AUTO) 0 % (0-10); EOSINOPHILS # (AUTO) 0.2 10^3/uL (0.0-0.3); EOSINOPHILS % (AUTO) 2 % (0-10); HEMATOCRIT 38 % (35-52); HEMOGLOBIN 12.2 G/DL (11.5-16.0); LYMPHOCYTES # (AUTO) 2.4 X 10^3 (1.0-4.0); LYMPHOCYTES % (AUTO) 31 % (12-44); MEAN CORPUSCULAR HEMOGLOBIN 27 PG (25-34); MEAN CORPUSCULAR HGB CONC 32 G/DL (32-36); MEAN CORPUSCULAR VOLUME 85 FL (80-99); MEAN PLATELET VOLUME 11.6 FL (7.4-10.4); MONOCYTES # (AUTO) 0.6 X 10^3 (0.0-1.0); MONOCYTES % (AUTO) 8 % (0-12); NEUTROPHILS # (AUTO) 4.5 X 10^3 (1.8-7.8); NEUTROPHILS % (AUTO) 58 % (42-75); PLATELET COUNT 211 10^3/uL (130-400); WHITE BLOOD COUNT 7.7 10^3/uL (4.3-11.0)
[2019-02-28 03:52] LABS: ALANINE AMINOTRANSFERASE 43 U/L (0-55); ALBUMIN 3.5 GM/DL (3.2-4.5); ALKALINE PHOSPHATASE 63 U/L (40-136); BILIRUBIN,TOTAL 0.7 MG/DL (0.1-1.0); BUN/CREATININE RATIO 10; CALCIUM 8.2 MG/DL (8.5-10.1); CARBON DIOXIDE 19 MMOL/L (21-32); CHLORIDE 109 MMOL/L (98-107); GFR ESTIMATED > 60; GLUCOSE 224 MG/DL (70-105); MAGNESIUM 1.7 MG/DL (1.6-2.4); PHOSPHORUS 3.5 MG/DL (2.3-4.7); POTASSIUM 3.5 MMOL/L (3.6-5.0); SODIUM 141 MMOL/L (135-145); TOTAL PROTEIN 6.4 GM/DL (6.4-8.2)
[2019-02-28] MEDS: KCL 20 MEQ TAB (K-DUR) PO SCH (04:21)
[2019-02-28] MEDS: MAGNESIUM 1 GM/100 ML IVPB 100 ML IV SCH ×3 (04:21→06:26)
--- NOTE | 2019-02-28 05:47 | Pulmonary Consultation ---
History of Present Illness History of Present Illness Date of Consultation 02/28/19 05:44 Time Seen by Provider: 07:05 Date of Admission Allergies and Home Medications Allergies Coded Allergies: lisinopril (Verified Allergy, Mild, COUGH, 03/05/17) montelukast (Verified Allergy, Unknown, 03/05/17) montelukast sodium (Verified Adverse Reaction, Unknown, 03/05/17) Uncoded Allergies: METALS (Allergy, Unknown, 07/12/14) Home Medications Aripiprazole 5 Mg Tablet, 2.5 MG PO DAILY, (Reported) TAKES 1/2 OF A (5 MG) TABLET Cephalexin 500 Mg Capsule, 500 MG PO TID Prescribed by: SUKUMAR CHEN on 01/18/17 1238 Ciprofloxacin HCl 500 Mg Tablet, 500 MG PO BID Prescribed by: SHAN BLACK on 03/05/17 2155 Cyclobenzaprine HCl 10 Mg Tablet, 10 MG PO Q8H PRN for SPASMS Prescribed by: LYNDSEY SOUZA on 11/13/16 1410 Duloxetine HCl 60 Mg Capsule.dr, 60 MG PO DAILY, (Reported) Hydrocodone Bit/Acetaminophen 1 Tab Tab, 1 EACH PO Q4-6HR PRN for PAIN-MODERATE Prescribed by: TRACY ZARAGOZA on 06/19/18 1429 Hydrocodone/Acetaminophen 1 Each Tablet, 1 EACH PO Q4H PRN for PAIN-MODERATE Prescribed by: SHAN BLACK on 01/14/17 1704 Levofloxacin 750 Mg Tablet, 750 MG PO DAILY Prescribed by: TAYLOR PETERSEN on 04/04/16 1421 Ondansetron HCl 4 Mg Tab, 4 MG PO Q4H PRN for NAUSEA/VOMITING-1ST LINE Prescribed by: TRACY ZARAGOZA on 06/19/18 1429 Pregabalin 50 Mg Cap, 100 MG PO TID, (Reported) TAKES 2 (50 MG) CAPSULES Sulfamethoxazole/Trimethoprim 1 Each Tablet, 1 EACH PO BID Prescribed by: TRACY ZARAGOZA on 06/19/18 1431 Tamsulosin HCl 0.4 Mg Cap, 0.4 MG PO DAILY Prescribed by: SHAN BLACK on 01/14/17 1704 Tramadol HCl 50 Mg Tablet, 50 MG PO Q8H Prescribed by: LYNDSEY SOUZA on 11/13/16 1410 Past Lzwmvuf-Wegdhi-Cnjgev Hx Patient Social History Alcohol Use: Denies Use Recreational Drug Use: No Smoking Status: Never a Smoker 2nd Hand Smoke Exposure: No Recent Foreign Travel: No Contact w/Someone Who Travel: No Recent Infectious Disease Expo: No Recent Hopitalizations: No Physical Abuse: No Sexual Abuse: No Mistreated: No Fear: No Immunizations Up To Date Tetanus Booster (TDap): More than 5yrs Seasonal Allergies Seasonal Allergies: No Past Medical History Surgeries: Yes (D&C, R KNEE, ) Cardiac, Eye Surgery, Orthopedic Respiratory: Yes Asthma Cardiac: Yes Heart Attack, High Cholesterol, Hypertension Neurological: Yes Headaches /Migraines 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 Disorders: No NNPS History: Menopausal Sexually Transmitted Disease: No Genitourinary: Yes Kidney Stones Gastrointestinal: Yes Gastroesophageal Reflux, Hiatal Hernia, Irritable Bowel Musculoskeletal: Yes Fibromyalgia Endocrine: Yes Diabetes, Non-Insulin dep HEENT: No Cancer: No Psychosocial: Yes ADD/ADHD, Anxiety, PTSD, Depression Integumentary: No Blood Disorders: No Adverse Reaction/Blood Tranf: No Family Medical History Patient reports no known family medical history. No Pertinent Family Hx Sepsis Event Evaluation Height, Weight, BMI Height: 5'3.00" Weight: 259lbs. 0.0oz. 117.196640sl; 34.00 BMI Method:Stated Exam Exam Vital Signs Date Time Temp Pulse Resp B/P (MAP) Pulse Ox O2 Delivery O2 Flow Rate FiO2 02/28/19 05:00 92 122/74 (90) 92 Room Air 02/28/19 04:00 105 124/77 (93) 93 Room Air 02/28/19 03:00 108 127/84 (98) 92 Room Air 02/28/19 02:00 121 135/71 (92) 92 Room Air 02/28/19 01:01 119 02/28/19 01:00 114 17 152/71 (98) 91 Room Air 02/28/19 00:18 112 32 95 Room Air 02/28/19 00:13 113 29 155/97 (116) 95 Room Air 02/28/19 00:00 Room Air 02/28/19 00:00 112 32 165/92 (116) 93 Room Air 02/27/19 23:43 121 10 149/88 (108) 100 Room Air 02/27/19 23:00 112 14 96 Room Air 02/27/19 22:42 36.4 113 18 153/91 (109) 99 Room Air 02/27/19 22:00 Room Air 02/27/19 22:00 101 9 128/99 (109) 99 Room Air 02/27/19 21:50 112 02/27/19 21:49 36.4 114 151/97 (115) 97 Room Air 02/27/19 18:35 36.4 128 18 154/119 (131) 96 I & O 02/28/19 06:59 Intake Total 300 ml Output Total 50 ml Balance 250 ml Height & Weight Height: 5'3.00" Weight: 259lbs. 0.0oz. 117.930368ad; 34.00 BMI Method:Stated Capillary Refill: Less Than 3 Seconds Results Lab Laboratory Tests 02/27/19 18:37 02/27/19 22:35 02/28/19 03:03 MARIE FOOTE DO Feb 28, 2019 05:46
--- NOTE | 2019-02-28 07:09 | ED GI ---
General Chief Complaint: Abdominal/GI Problems Stated Complaint: DKA/HHNK,UNCONTROLLED DM,INTRACTABLE N/V,DEHYDRATI Nursing Triage Note: PT PRESENTS TO ED WITH COMPLAINTS OF MALAISE, WEAKNESS, LOW GRADE FEVER. PT REPORTS SHE STARTED VOMITING THIS AM AND HAS BEEN UNABLE TO KEEP LIQUIDS DOWN. Sepsis Screen: No Definite Risk Source of Information: Patient (VERY DIFFICULT HISTORIAN), Old Records (ALL PMH IS FROM OLD RECORDS) History of Present Illness Date Seen by Provider: Feb 27, 2019 Time Seen by Provider: 18:20 Initial Comments PT ARRIVES VIA POV--HAS WALKER C/O NAUSEA SINCE YESTERDAY, BEGAN VOMITING THIS AM STATES "I CAN'T KEEP ANYTHING DOWN--NOT WATER, NOT COLD WATER, NOT JUICE, NOT ANYTHING" --YET PT HAS A LARGE GLASS OF ICE WATER IN HAND AND IS SIPPING ON IT ON ARRIVAL--NO VOMITING ON ARRIVAL NO DIARRHEA NO ABDOMINAL PAIN STATES SHE HAD TEMP FO 99.2 C/O FEELING LIGHTHEADED C/O PAIN ON URINATION AND DECREASED URINE OUTPUT--LAST VOID WAS AT 1400 NO SICK CONTACT OR SUSPICIOUS FOODS. PCP: ELISABETH Allergies and Home Medications Allergies Coded Allergies: lisinopril (Verified Allergy, Mild, COUGH, 03/05/17) montelukast (Verified Allergy, Unknown, 03/05/17) montelukast sodium (Verified Adverse Reaction, Unknown, 03/05/17) Uncoded Allergies: METALS (Allergy, Unknown, 07/12/14) Home Medications Aripiprazole 5 Mg Tablet, 2.5 MG PO DAILY, (Reported) TAKES 1/2 OF A (5 MG) TABLET Cephalexin 500 Mg Capsule, 500 MG PO TID Prescribed by: SUKUMAR CHEN on 01/18/17 1238 Ciprofloxacin HCl 500 Mg Tablet, 500 MG PO BID Prescribed by: SHAN BLACK on 03/05/17 2155 Cyclobenzaprine HCl 10 Mg Tablet, 10 MG PO Q8H PRN for SPASMS Prescribed by: LYNDSEY SOUZA on 11/13/16 1410 Duloxetine HCl 60 Mg Capsule.dr, 60 MG PO DAILY, (Reported) Hydrocodone Bit/Acetaminophen 1 Tab Tab, 1 EACH PO Q4-6HR PRN for PAIN-MODERATE Prescribed by: TRACY ZARAGOZA on 06/19/18 1429 Hydrocodone/Acetaminophen 1 Each Tablet, 1 EACH PO Q4H PRN for PAIN-MODERATE Prescribed by: SHAN BLACK on 01/14/17 1704 Levofloxacin 750 Mg Tablet, 750 MG PO DAILY Prescribed by: TAYLOR PETERSEN on 04/04/16 1421 Ondansetron HCl 4 Mg Tab, 4 MG PO Q4H PRN for NAUSEA/VOMITING-1ST LINE Prescribed by: TRACY ZARAGOZA on 06/19/18 1429 Pregabalin 50 Mg Cap, 100 MG PO TID, (Reported) TAKES 2 (50 MG) CAPSULES Sulfamethoxazole/Trimethoprim 1 Each Tablet, 1 EACH PO BID Prescribed by: TRACY ZARAGOZA on 06/19/18 1431 Tamsulosin HCl 0.4 Mg Cap, 0.4 MG PO DAILY Prescribed by: SHAN BLACK on 01/14/17 170 Tramadol HCl 50 Mg Tablet, 50 MG PO Q8H Prescribed by: LYNDSEY SOUZA on 11/13/16 1410 Patient Home Medication List Home Medication List Reviewed: Yes Review of Systems Review of Systems Constitutional: see HPI, dizziness, fever, weakness EENTM: No Symptoms Reported Respiratory: No Symptoms Reported; Denies Shortness of Air Cardiovascular: No Symptoms Reported; Denies Chest Pain Gastrointestinal: See HPI; Denies Abdominal Pain, Denies Constipated, Denies Diarrhea; Nausea, Poor Appetite, Poor Fluid Intake, Vomiting Genitourinary: See HPI, Burning Musculoskeletal: no symptoms reported Skin: no symptoms reported Psychiatric/Neurological: No Symptoms Reported; Denies Headache Endocrine: No Symptoms Reported Hematologic/Lymphatic: No Symptoms Reported Past Jvxeaod-Tfuujj-Vpjmzl Hx Past Med/Social Hx: Reviewed and Corrections made Patient Social History Alcohol Use: Denies Use Recreational Drug Use: No Smoking Status: Never a Smoker 2nd Hand Smoke Exposure: No Recent Foreign Travel: No Contact w/Someone Who Travel: No Recent Infectious Disease Expo: No Recent Hopitalizations: No Physical Abuse: No Sexual Abuse: No Mistreated: No Fear: No Immunizations Up To Date Tetanus Booster (TDap): More than 5yrs Seasonal Allergies Seasonal Allergies: No Past Medical History Surgeries: Yes (D&C; RIGHT KNEE SCOPE X 2; EGD; CARDIAC CATH 2012--NO INTERVENTION) Cardiac, Eye Surgery, Orthopedic Respiratory: Yes Asthma Cardiac: Yes (CARDIAC CATH 2012--NORMAL CORONARIES, NO INTERVENTION) High Cholesterol, Hypertension Neurological: Yes Headaches /Migraines 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 Disorders: No 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 No Pertinent Family Hx Physical Exam Vital Signs Vital Signs - First Documented 02/27/19 18:35 Temp 36.4 Pulse 128 Resp 18 B/P (MAP) 154/119 (131) Pulse Ox 96 Capillary Refill : Less Than 3 Seconds Height/Weight/BMI Height: 5'3.00" Weight: 248lbs. 6.0oz. 112.209742rp; 34.00 BMI Method:Stated General Appearance: obese, other (ANXIOUS, HYPERVENTILATING. VERY UNKEMPT, COVERED IN ANIMAL HAIR) HEENT: PERRL/EOMI, other (P;OOR DENTITION) Neck: non-tender, full range of motion, normal inspection Respiratory: normal breath sounds, no respiratory distress, no accessory muscle use, other (HYPERVENTILATING ON ARRIVAL) Cardiovascular: no JVD, no murmur, tachycardia (130'S ON ARRIVAL) Gastrointestinal: non tender, soft Extremities: no pedal edema, normal capillary refill Back: no CVA tenderness Neurologic/Psychiatric: envelope patternmaker II-XII nml as tested, no motor/sensory deficits, alert, oriented x 3 Skin: normal color, warm/dry, other (EXTENSIVE SORES/SCABS/SCARS/SUPERFICIAL ABRASIONS TO FACE, ARMS, SHOULDERS, ANTERIOR LEGS, CHEST, ABDOMEN--ALL ON ANTERIOR ASPECTS--PT STATES "IT'S FROM MY KITTEN"--SOME APPEAR TO BE SMALL SCRATCHES, SOME POSSIBLY PUNCTURES, BUT MANY APPEAR TO BE FROM "PICKING" THEY ARE ALL ONLY IN AREAS WHERE PT CAN REACH . NO SIGNS OF SECONDARY INFECTION) Focused Exam Lactate Level 02/27/19 18:37: Lactic Acid Level 3.27*H Lactic Acid Level Laboratory Tests Test 02/27/19 18:37 Lactic Acid Level 3.27 MMOL/L (0.50-2.00) *H Progress/Results/Core Measures Results/Orders Lab Results Laboratory Tests Test 02/27/19 18:37 02/27/19 19:48 Range/Units White Blood Count 9.5 4.3-11.0 10^3/uL Red Blood Count 5.39 4.35-5.85 10^6/uL Hemoglobin 14.6 11.5-16.0 G/DL Hematocrit 44 35-52 % Mean Corpuscular Volume 82 80-99 FL Mean Corpuscular Hemoglobin 27 25-34 PG Mean Corpuscular Hemoglobin Concent 33 32-36 G/DL Red Cell Distribution Width 15.0 H 10.0-14.5 % Platelet Count 284 130-400 10^3/uL Mean Platelet Volume 11.7 H 7.4-10.4 FL Neutrophils (%) (Auto) 65 42-75 % Lymphocytes (%) (Auto) 26 12-44 % Monocytes (%) (Auto) 8 0-12 % Eosinophils (%) (Auto) 1 0-10 % Basophils (%) (Auto) 0 0-10 % Neutrophils # (Auto) 6.2 1.8-7.8 X 10^3 Lymphocytes # (Auto) 2.4 1.0-4.0 X 10^3 Monocytes # (Auto) 0.7 0.0-1.0 X 10^3 Eosinophils # (Auto) 0.1 0.0-0.3 10^3/uL Basophils # (Auto) 0.0 0.0-0.1 10^3/uL Prothrombin Time 13.5 12.2-14.7 SEC INR Comment 1.0 0.8-1.4 Activated Partial Thromboplast Time 28 24-35 SEC Sodium Level 136 135-145 MMOL/L Potassium Level 4.2 3.6-5.0 MMOL/L Chloride Level 100 98-107 MMOL/L Carbon Dioxide Level 19 L 21-32 MMOL/L Anion Gap 17 H 5-14 MMOL/L Blood Urea Nitrogen 11 7-18 MG/DL Creatinine 1.40 H 0.60-1.30 MG/DL Estimat Glomerular Filtration Rate 40 BUN/Creatinine Ratio 8 Glucose Level 407 *H 70-105 MG/DL Lactic Acid Level 3.27 *H 0.50-2.00 MMOL/L Calcium Level 9.9 8.5-10.1 MG/DL Corrected Calcium 9.5 8.5-10.1 MG/DL Magnesium Level 1.8 1.6-2.4 MG/DL Total Bilirubin 1.0 0.1-1.0 MG/DL Aspartate Amino Transf (AST/SGOT) 54 H 5-34 U/L Alanine Aminotransferase (ALT/SGPT) 58 H 0-55 U/L Alkaline Phosphatase 88 40-136 U/L Total Protein 8.4 H 6.4-8.2 GM/DL Albumin 4.5 3.2-4.5 GM/DL Amylase Level 20 L 25-125 U/L Lipase 20 8-78 U/L Serum Test, Qualitative NEGATIVE NEGATIVE Urine Color YELLOW Urine Clarity CLEAR Urine pH 6 5-9 Urine Specific [place] 1.015 L 1.016-1.022 Urine Protein 2+ H NEGATIVE Urine Glucose (UA) 4+ H NEGATIVE Urine Ketones 4+ H NEGATIVE Urine Nitrite NEGATIVE NEGATIVE Urine Bilirubin NEGATIVE NEGATIVE Urine Urobilinogen NORMAL NORMAL MG/DL Urine Leukocyte Esterase NEGATIVE NEGATIVE Urine RBC (Auto) NEGATIVE NEGATIVE Urine RBC NONE /HPF Urine WBC NONE /HPF Urine Crystals NONE /LPF Urine Bacteria NEGATIVE /HPF Urine Casts NONE /LPF Urine Mucus NEGATIVE /LPF Urine Culture Indicated NO Urine Opiates Screen NEGATIVE NEGATIVE Urine Oxycodone Screen NEGATIVE NEGATIVE Urine Methadone Screen NEGATIVE NEGATIVE Urine Propoxyphene Screen NEGATIVE NEGATIVE Urine Barbiturates Screen NEGATIVE NEGATIVE Ur Tricyclic Antidepressants Screen NEGATIVE NEGATIVE Urine Phencyclidine Screen NEGATIVE NEGATIVE Urine Amphetamines Screen NEGATIVE NEGATIVE Urine Methamphetamines Screen NEGATIVE NEGATIVE Urine Benzodiazepines Screen NEGATIVE NEGATIVE Urine Cocaine Screen NEGATIVE NEGATIVE Urine Cannabinoids Screen NEGATIVE NEGATIVE Micro Results Microbiology 02/27/19 Influenza Types A,B Antigen (JOANNA) - Final, Complete My Orders Orders - RAKAN VILLAGOMEZ DO Ed Iv/Invasive Line Start (02/27/19 18:28) Ekg Tracing (02/27/19 18:28) Catheter(Urinary) Insert & Ass 03,15 (02/27/19 18:28) Monitor-Rhythm Ecg Trace Only (02/27/19 18:28) Ondansetron Injection (Zofran Injectio (02/27/19 18:30) Ed Iv/Invasive Line Start (02/27/19 18:28) Lactated Ringers (Lr 1000 Ml Iv Solution (02/27/19 18:28) Amylase (02/27/19 18:28) Cbc With Automated Diff (02/27/19 18:28) Comprehensive Metabolic Panel (02/27/19 18:28) Drug Screen Stat (Urine) (02/27/19 18:28) Lactic Acid Analyzer (02/27/19 18:28) Lipase (02/27/19 18:28) Magnesium (02/27/19 18:28) Protime With Inr (02/27/19 18:28) Partial Thromboplastin Time (02/27/19 18:28) Ua Culture If Indicated (02/27/19 18:28) Blood Culture (02/27/19 18:28) Pantoprazole Injection (Protonix Injecti (02/27/19 18:45) Hcg,Qualitative Serum (02/27/19 18:57) Insulin (Regular) Human (Humulin R (Per (02/27/19 19:15) Ed Iv/Invasive Line Start (02/27/19 19:39) Ns Iv 1000 Ml (Sodium Chloride 0.9%) (02/27/19 19:39) Ns Iv 1000 Ml (Sodium Chloride 0.9%) (02/27/19 19:32) Influenza A And B Antigens (02/27/19 20:07) Medications Given in ED Current Medications Medications Dose Ordered Sig/Kate Route Start Time Stop Time Status Last Admin Dose Admin Insulin Human Regular 20 unit ONCE ONCE IV 02/27/19 19:15 02/27/19 19:16 DC 02/27/19 19:49 20 UNIT Vital Signs/I&O 02/27/19 18:35 Temp 36.4 Pulse 128 Resp 18 B/P (MAP) 154/119 (131) Pulse Ox 96 Blood Pressure Mean: 110 FSBG Bedside Testing Finger Stick Blood Glucose: 224 Blood Glucose Action Taken: SEE EMAR Progress Progress Note : Progress Note PT CALMED, HEART RATE DOWN NO DETERIORATION IN PT'S CONDITION DURING ER STAY NO VOMITING DURING ER STAY PT WAS NOT FORTHCOMING ABOUT HAVING DIABETES WHEN SHE ARRIVED, AND ONLY ADMITTED TO BEING DIABETIC AFTER REVIEWING TEST RESULTS, INCLUDING BLOOD GLUCOSE LEVEL. PT ALSO ADMITS THAT SHE HAS NOT BEEN TAKING HER DIABETIC MEDICATION "FOR AWHILE NOW"--PT STATES SHE HAS NO IDEA HOW LONG IT HAS BEEN SINCE SHE LAST TOOK HER MEDICATION. PT NEVER CHECKS HER BLOOD GLUCOSE AT HOME. ALSO ADMITS TO NOT TAKING HER OTHER MEDICATIONS ON ANY REGULAR BASIS. Initial ECG Impression Date: Feb 27, 2019 Initial ECG Impression Time: 18:37 Initial ECG Rate: 118 Initial ECG Rhythm: S.Tach Departure Communication (Admissions) 2024--SPOKE WITH DR. PHILLIP, HOSPITALIST, ACCEPTS PT FOR ADMIT. Impression Primary Impression: Uncontrolled diabetes mellitus Additional Impressions: DKA/HHNK DEHYDRATION WITH RENAL INSUFFICIENCY Lactic acidosis Intractable nausea and vomiting Non-compliance Disposition: ADMITTED INPATIENT Condition: Improved Admissions Decision to Admit Reason: Admit from ER (General) Decision to Admit/Date: Feb 27, 2019 Time/Decision to Admit Time: 20:25 Departure-Patient Inst. Referrals: [facility] (PCP) Primary Care Physician RAKAN VILLAGOMEZ DO Feb 28, 2019 07:09
--- NOTE | 2019-02-28 08:08 | Diagnostic Imaging Report ---
INDICATION: Diabetes, dehydration. FINDINGS: Lungs are clear. The heart and vessels normal. There is no effusion or pneumothorax. IMPRESSION: No acute appearing abnormality. Dictated by: Dictated on workstation # [id number]
--- NOTE | 2019-02-28 08:22 | History & Physical-Hospitalist ---
LUIS GARCIA [facility] 02/28/19 0822: History of Present Illness HPI/Chief Complaint CC: Flu HPI: Ms. Ca came into the ER because she thought she had the flu. She has been dealing with this for the past few days. It started thursday morning with feeling sick, progressing to dry heaves and then finally puking in the afternoon. She then proceed to come into the ER because she was unable to keep down fluids and felt nauseated. She took zofran to help with the nausea and to keep down water. She didn't state and other alleviating or aggravating factors. She also stated that she hasn't experienced any pain associated with any of this. She also states that she used to be a diabetic, but hasn't been taking medicines for a while, which she took Metformin. Source: patient Date Seen 02/28/19 Time Seen by a Provider: 07:45 Attending Physician Aye Phillip DO [facility] Referring Physician Date of Admission Feb 27, 2019 at 20:10 Home Medications & Allergies Home Medications Reviewed patient Home Medication Reconciliation performed by pharmacy medication reconciliations fuel cell technician and/or nursing. Patients Allergies have been reviewed. Allergies Allergies Coded Allergies lisinopril (Verified Allergy, Mild, COUGH, 03/05/17) montelukast (Verified Allergy, Unknown, 03/05/17) montelukast sodium (Verified Adverse Reaction, Unknown, 03/05/17) Uncoded Allergies METALS ( Allergy, Unknown, 07/12/14) Past Rsjfyht-Vdddwe-Bdwkhm Hx Past Med/Social Hx: Reviewed and Corrections made Patient Social History Number of Children: 3 Number of living children: 2 Employed/Student: employed Alcohol Use: Denies Use Recreational Drug Use: No Smoking Status: Never a Smoker 2nd Hand Smoke Exposure: No Recent Foreign Travel: No Contact w/other who traveled: No Recent Hopitalizations: No Recent Infectious Disease Expo: No Immunizations Up To Date Tetanus Booster (TDap): More than 5yrs Seasonal Allergies Seasonal Allergies: No Past Medical History Surgeries: Cardiac, Eye Surgery, Orthopedic Currently Using CPAP: No Currently Using BIPAP: No Cardiac: High Cholesterol, Hypertension Neurological: Headaches /Migraines : No 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: No Sexually Transmitted Disease: No Female 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 Disorders: Denies Menopausal Genitourinary: Kidney Stones Gastrointestinal: Gastroesophageal Reflux, Hiatal Hernia, Irritable Bowel Musculoskeletal: Fibromyalgia Endocrine: Diabetes, Non-Insulin dep Loss of Vision: Denies Hearing Impairment: Denies Psychosocial: ADD/ADHD, Anxiety, PTSD, Depression History of Blood Disorders: No Adverse Reaction to Blood Hernandez: No Family History Patient reports no known family medical history. No Pertinent Family Hx, CVA (Mother and Father), Seizures (Eldest and Middle son) Review of Systems Constitutional: No no symptoms reported, No see HPI; chills; No diaphoresis, No dizziness, No fever; malaise; No weakness, No weight gain, No weight loss, No other EENTM: No see HPI, No no symptoms reported, No ear discharge, No hearing loss, No ear pain, No blurred vision, No double vision, No eye pain, No tearing, No vision loss, No dental problems, No hoarseness, No mouth pain, No mouth swelling, No epistaxis, No nose congestion, No nose pain, No throat pain, No throat swelling, No other Respiratory: No no symptoms reported, No see HPI, No cough, No dyspnea on exertion, No hemoptysis, No orthopnea, No phlegm, No short of breath, No stridor, No wheezing, No other Cardiovascular: No no symptoms reported, No see HPI, No chest pain, No edema, No Hx of Intervention, No palpitations, No syncope, No vascular heart diseas, No other Gastrointestinal: No RUQ, No LUQ, No RLQ, No LLQ, No no symptoms reported, No see HPI, No abdominal pain, No constipation, No diarrhea, No dysphagia, No hematemesis, No heartburn, No jaundice, No loss of appetite, No melena, No nausea, No vomiting, No other Genitourinary: No no symptoms reported, No see HPI, No decreased output, No discharge; dysuria; No frequency, No hematuria, No hesitancy, No incontinence, No nocturia, No pain, No other : No Control/STD Prophylaxis: None Musculoskeletal: joint pain (Arthritis of the spine), muscle pain (fibromyalgia ) Skin: No no symptoms reported, No see HPI, No change in color, No change in hair/nails, No dryness, No hx of skin cancer, No lesions, No lumps, No pruritus, No rash, No other Psychiatric/Neurological: Anxiety, Depressed, Headache Physical Exam Physical Exam Vital Signs Vital Signs - First Documented 02/27/19 02/27/19 18:35 21:49 Temp 36.4 Pulse 128 Resp 18 B/P (MAP) 154/119 (131) Pulse Ox 96 O2 Delivery Room Air Capillary Refill : Less Than 3 Seconds Height, Weight, BMI Height: 5'3.00" Weight: 248lbs. 6.0oz. 112.815011rl; 34.00 BMI Method:Stated General Appearance: No Apparent Distress, WD/WN Eyes: Bilateral Eye Normal Inspection, Bilateral Eye PERRL, Bilateral Eye EOMI HEENT: PERRL/EOMI, Normal ENT Inspection, Pharynx Normal, Moist Mucous Membranes Neck: Full Range of Motion, Normal Inspection, Non Tender, Supple Respiratory: Chest Non Tender, Lungs Clear, Normal Breath Sounds, No Accessory Muscle Use, No Respiratory Distress Cardiovascular: Regular Rate, Rhythm, No Edema, No Gallop, No JVD, No Murmur, Normal Peripheral Pulses Gastrointestinal: Normal Bowel Sounds, No Organomegaly, No Pulsatile Mass, Non Tender, Soft Extremity: Normal Capillary Refill, Normal Inspection, Non Tender, No Pedal E daniel Neurologic/Psychiatric: Alert, Oriented x3, No Motor/Sensory Deficits, Normal Mood/Affect, scissors sharpener II-XII Norm as Tested Skin: Normal Color, Warm/Dry Lymphatic: No Adenopathy Results Results/Procedures Labs Laboratory Tests 02/27/19 18:37 02/27/19 22:35 02/28/19 03:03 Patient resulted labs reviewed. Assessment/Plan Admission Diagnosis DKA Admission Status: Inpatient Order (span 2 midnights) Reason for Inpatient Admission: Monitor sugars and potassium Assessment and Plan Assessment: 1. DKA 2. History of Fibromyalgia 3. History of PTSD and Depression 4. History of Pneumonia 5. Strong family history of CVA 6. History of Arthritis of the spine Plan: 1. Monitor sugar level and potassium 2. Manage pain assoicated with fibromyalgia and arthritis 3. Continue Duloxetine 4. Use incentive spirometer 5. Blood thinning therapy to decrease risk of clotting. Clinical Quality Measures DVT/VTE Risk/Contraindication: Risk Factor Score Per Nursin RFS Level Per Nursing on Admit: 4+=Very High AYE PHILLIP DO 02/28/191958: History of Present Illness HPI/Chief Complaint CC: DKA HPI: This is a 48yoWF clinic pt of Chris Matt at [facility] with a PMH OF DM noncompliant with treatment who presented to the ER with nausea and vomiting found to have Bicarb of 19 ABG showing no acidosis but significantly dehydrated in need of insulin initiation along with close monitoring and IV insulin drip. She was placed in the ICU, hyperglycemia improved quickly and she was transitioned to sub Q insulin with close monitoring Gand moved to the 4th floor. At this current time pt is feeling well, and she is knowledgeable on how to use insulin since she had gestational diabetes and we will work towards ambulating around , eating a drinking and diabetic education with close follow up with PCP and likely DC home tomorrow. Past Srqvevn-Bergzz-Dyrwjn Hx Family History Patient reports no known family medical history. Physical Exam Physical Exam General Appearance: No Apparent Distress, WD/WN, Anxious, Chronically ill, Obese Respiratory: Lungs Clear Cardiovascular: Regular Rate, Rhythm Neurologic/Psychiatric: Alert, Oriented x3, No Motor/Sensory Deficits, Normal Mood/Affect Assessment/Plan Admission Diagnosis Assessment: DKA DM OOC Non-compliance Plan: Insulin regimen DC tomorrow Admission Status: Inpatient Order (span 2 midnights) Reason for Inpatient Admission: Monitor labile sugar levels and start insulin Diagnosis/Problems Diagnosis/Problems (1) Lactic acidosis Status: Acute (2) Uncontrolled diabetes mellitus Status: Chronic Qualifiers: Diabetes mellitus type: type 2 Glycemic state: with hyperglycemia Qualified Codes: E11.65 - Type 2 diabetes mellitus with hyperglycemia (3) Non-compliance Status: Acute (4) Intractable nausea and vomiting Status: Acute (5) Generalized pain Status: Chronic (6) Volume depletion Status: Acute Supervisory-Addendum Brief Verification & Attestation Participated in pt care: history, MDM, physical Personally performed: exam, history, MDM, supervision of care Care discussed with: Medical Student Procedures: n/a Results interpretation: Verified all documentation Verification and Attestation of Medical Student E/M Service A medical student performed and documented this service in my presence. I reviewed and verified all information documented by the medical student and made modifications to such information, when appropriate. I personally performed the physical exam and medical decision making. Aye Phillip, Feb 28, 2019,19:56 [facility] Feb 28, 2019 08:22 AYE PHILLIP DO Feb 28, 2019 19:59
[2019-02-28] MEDS: PANTOPRAZOLE 40 MG (PROTONIX) VIAL IV SCH (08:33)
[2019-02-28] MEDS ORDERED: NAPR-915 PO (10:02)
[2019-02-28] MEDS ORDERED: QUET300T71 PO (10:02)
[2019-02-28] MEDS ORDERED: GBPN600T PO (10:02)
[2019-02-28] MEDS ORDERED: FAMO20TA5 PO (10:02)
[2019-02-28] MEDS ORDERED: MIRT30TA6 PO (10:02)
[2019-02-28] MEDS ORDERED: ACET325T49 PO (10:09)
[2019-02-28] MEDS ORDERED: PANT40TA3 PO (10:13)
--- NOTE | 2019-02-28 10:18 | NUR ---
SPOKE WITH PT WELL GOING THRU THE EXT MED HISTORY TO COMPLETE THE MED REC. PT WAS ABLE TO TELL ME HER MEDS AND HOW SHE TAKES THEM I HAVE PUT IN A CALL TO [facility], PT SAYS SHE TAKES METFORMIN AND ACTOS BUT I DONT SEE ANYTHING IN THE EXT MED HISTORY. NATHALY SAYS THE LAST TIME SHE FILLED WAS 08-19-2018 FOR THE METFORMIN AND 03-10-2019 FOR ACTOS. I AM TRYING TO FIGURE OUT IF SHE GETS THESE THRU THE REPOSITORY. THEY ARE CALLING ME BACK AND I WILL UPDATE THE NOTE THEM PT ALSO SAYS SHE IS USING A SAMPLE OF A STOOL SOFTENER, [facility] IS ALSO FINDING OUT ABOUT THIS. OTC MEDS: ACETAMINOPHEN 325M TABS Q 6 H PRN NAPROXEN 500M DAILY PRN Addendum: 03/01/19 at 1014 by KAY ARENAS [facility] SPOKE WITH MADELIN ARAYA'S NURSE ABOUT THE METFORMIN AND ACTOS. SHE DOES NOT SHOW THE PT HAS BEEN GIVEN EITHER OF THOSE MEDICATIONS THRU THE REPOSITORY OR THE PALS PROGRAM. 08-19-2018 WAS THE LAST TIME PT RECEIVED METFORMIN FROM THE PHARMACY DUE TO THIS I DID NOT INCLUDE ON THE MED REC, WELL THE ACTOS.
[2019-02-28] MEDS: ENOXAPARIN 40 MG/0.4 ML (LOVENOX) SYR SC SCH ×2 (10:28→20:57)
--- NOTE | 2019-02-28 12:15 | NUR ---
received report from Maty Cardona RN at this time.
--- NOTE | 2019-02-28 13:35 | Physical Therapy Evaluation ---
PT Evaluation-General Medical Diagnosis Admission Date Feb 27, 2019 at 20:10 Medical Diagnosis: DKA/uncontrolled DM Onset Date: Feb 27, 2019 Therapy Diagnosis Therapy Diagnosis: debility/weakness Height/Weight Height (Feet): 5 Height (Inches): 3.00 Weight (Pounds): 248 Weight (Ounces): 6.0 Precautions Precautions/Isolations: Standard Precautions Referral Physician: oJnatan Reason for Referral: Evaluation/Treatment Medical History Pertinent Medical History: DM, HTN Additional Medical History IBS; PTSD Current History ER secondary to malaise, weakness, low grade fever Reviewed History: Yes Social History Home: Apartment Current Living Status: Alone Entry Into Home: Level Entry Prior/Core FIM Prior Level of Function Therapy Code Descriptions/Definitions Functional [place] Measure: 0=Not Assessed/NA 4=Minimal Assistance 1=Total Assistance 5=Supervision or Setup 2=Maximal Assistance 6=Modified [place] 3=Moderate Assistance 7=Complete [place] Therapy Quality Codes: 6 Independent with activity with or without an assistive device 5 Patient requires set up or clean up by helper. Patient completes activity by themselves 4 Supervision or touching assist (CGA). [place] provide cues , steadying assist 3 The helper provides less than half the effort to complete the activity 2 The helper provides more than half the effort to complete the activity 1 Dependent. The helper does all the effort to complete an activity 7 Patient refused to complete or attempt activity 9 The patient did not perform the activity before the current illness or injury 88 Not attempted due to Medical conditions or safety concerns Functional Abilities and Goals: Independent: Patient completed the activities by him/herself, with or without an assistive device, with no assistance from a helper. Needed Some Help: Patient needed partial assistance from another person to complete activities. Dependent: A helper completed the activities for the patient. Unknown: Not Applicable: Bed Mobility: 7 Transfers (B,C,W/C) (FIM): 7 Gait: 6 Stairs: 0 Indoor Mobility (Ambulation): Independent Stairs: Not Applicalbe Prior Devices Use: Walker Prior Device Use: 4WW PT Evaluation-Current Subjective Patient agrees to PT. Pain Numeric Pain Scale: 0-No Pain Location: No Pain Reported Objective Patient Orientation: Normal For Age Problem Solving: Fair Attachments: Weinberg Catheter, IV ROM/Strength ROM Lower Extremities bilateral LE WFL Strength Lower Extremities 4/5 grossly bilateral LE Integumentary/Posture Integumentary refer to nursing notes Bladder Incontinence: Weinberg Cath Posture WFL Neuromuscular (Tone, Coordination, Reflexes) grossly intact Sensory Vision: Wears Glasses Hearing: Functional Sensation Right Lower Extremit: Impaired Sensation Left Lower Extremity: Impaired Transfers Therapy Code Descriptions/Definitions Functional [place] Measure: 0=Not Assessed/NA 4=Minimal Assistance 1=Total Assistance 5=Supervision or Setup 2=Maximal Assistance 6=Modified [place] 3=Moderate Assistance 7=Complete [place] Transfers (B, C, W/C) (FIM): 7 Scootin Rollin Supine to/from Sit: 7 Sit to/from Stand: 7 Gait Mode of Locomotion: Walk Anticipated Mode of Locomotion: Walk Gait (FIM): 6 Distance (FIM): 3=150 ft Distance: >250' Gait Level of Assist: 6 Gait Assistive Device: Walker 4 Wheeled Comments/Gait Description WBOS/ minimal knee or ankle flexion with anders Balance Sitting Static: Normal Sitting Dynamic: Normal Standing Static: Normal Standing Dynamic: Normal Assessment/Needs 48 y.o. female, will be seen x 2 sessions to ensure safe ambulation to return to home safely. Rehab Potential: Fair Post Rehab Potential-Barriers: compliance PT Short Term Goals Short Term Goals Time Frame: Mar 01, 2019 Transfers (B,C,W/C) (FIM): 7 Gait (FIM): 6 Distance (FIM): 3=150 ft Gait Distance Comment: 300' Gait Level of Assist: 6 Gait Assistive Device: Walker 4 Wheeled PT Plan Treatment/Plan Treatment Plan: Continue Plan of Care Treatment Plan: Education, Functional Activity Almaz, Functional Strength, Gait, Safety, Therapeutic Exercise Treatment Duration: Mar 01, 2019 Frequency: 2 times per week Estimated Hrs Per Day: .25 hour per day Patient and/or Family Agrees t: Yes Time/GCodes Time In: 1306 Time Out: 1318 Total Billed Treatment Time: 12 Total Billed Treatment 1 visit EVLowC 12 min KISHA SANCHEZ PT Feb 28, 2019 13:35
[2019-02-28] MEDS: ACETAMINOPHEN 325 MG TABLET PO PRN (14:24)
[2019-03-01 00:01] VITALS: BP 142/87
[2019-03-01] MEDS: ACETAMINOPHEN 325 MG TABLET PO PRN (01:16)
[2019-03-01 04:39] VITALS: BP 159/99
[2019-03-01 05:01] VITALS: BP 159/99
[2019-03-01 05:49] LABS: BASOPHILS % (AUTO) 1 % (0-10); EOSINOPHILS # (AUTO) 0.2 10^3/uL (0.0-0.3); EOSINOPHILS % (AUTO) 3 % (0-10); HEMATOCRIT 36 % (35-52); HEMOGLOBIN 11.6 G/DL (11.5-16.0); LYMPHOCYTES % (AUTO) 33 % (12-44); MEAN CORPUSCULAR HEMOGLOBIN 27 PG (25-34); MEAN CORPUSCULAR HGB CONC 32 G/DL (32-36); MEAN CORPUSCULAR VOLUME 85 FL (80-99); MEAN PLATELET VOLUME 11.4 FL (7.4-10.4); MONOCYTES # (AUTO) 0.4 X 10^3 (0.0-1.0); MONOCYTES % (AUTO) 6 % (0-12); NEUTROPHILS # (AUTO) 3.6 X 10^3 (1.8-7.8); NEUTROPHILS % (AUTO) 58 % (42-75); PLATELET COUNT 185 10^3/uL (130-400); RED CELL DISTRIBUTION WIDTH 15.3 % (10.0-14.5); WHITE BLOOD COUNT 6.1 10^3/uL (4.3-11.0)
[2019-03-01 06:11] LABS: BUN/CREATININE RATIO 8; CALCIUM 8.3 MG/DL (8.5-10.1); CARBON DIOXIDE 19 MMOL/L (21-32); CHLORIDE 108 MMOL/L (98-107); GFR ESTIMATED > 60; GLUCOSE 222 MG/DL (70-105); MAGNESIUM 1.8 MG/DL (1.6-2.4); PHOSPHORUS 2.9 MG/DL (2.3-4.7); POTASSIUM 3.7 MMOL/L (3.6-5.0); SODIUM 136 MMOL/L (135-145)
[2019-03-01] MEDS: POTASSIUM CL 10MEQ/50ML IVPB 50 ML IV SCH (06:14)
[2019-03-01] MEDS: KCL 20 MEQ TAB (K-DUR) PO SCH (06:15)
[2019-03-01] MEDS: MAGNESIUM 1 GM/100 ML IVPB 100 ML IV SCH (06:15)
[2019-03-01] MEDS: NS IV 1000 ML 1,000 ML IV SCH (06:54)
[2019-03-01] MEDS: inSUlin ASPART (NovoLOG) 1 UNIT/0.01 ML (CHARGE PER UNIT) SC SCH ×4 (06:55→11:02)
[2019-03-01 08:00] VITALS: BP 147/91
[2019-03-01] MEDS: PANTOPRAZOLE 40 MG (PROTONIX) VIAL IV SCH (08:44)
[2019-03-01] MEDS ORDERED: INSU100I14 SQ (09:55)
[2019-03-01] MEDS ORDERED: INSU100I29 SQ (09:55)
[2019-03-01] MEDS ORDERED: NEED1DIS84 MC (09:55)
[2019-03-01 10:58] VITALS: BP 147/91
[2019-03-01] MEDS: ENOXAPARIN 40 MG/0.4 ML (LOVENOX) SYR SC SCH (11:02)
--- NOTE | 2019-03-01 11:04 | Diagnostic Imaging Report ---
INDICATION: Uncontrolled diabetes and dehydration as well as intractable nausea and vomiting. TIME OF EXAMINATION: 9:47 AM. COMPARISON: Correlation is made with the prior chest from one day earlier. FINDINGS: The heart size is stable. The lungs are clear. No infiltrates are detected. No effusion or pneumothorax is seen. The pulmonary vascularity is normal. IMPRESSION: No acute cardiopulmonary process is detected. Dictated by: Dictated on workstation # [id number]
[2019-03-02] MEDS ORDERED: PANTOPRAZOLE 40 MG (PROTONIX) TAB PO SCH (09:00)
--- NOTE | 2019-03-02 17:14 | Physician Query-Final Dx ---
TOSHIA MEYER 03/02/19 1714: Final Diagnosis Give Final Diagnosis Please give Final Diagnosis KAMILLE PHILLIP DO 03/02/192057: Final Diagnosis Give Final Diagnosis DKA TOSHIA MEYER Mar 02, 2019 17:14 KAMILLE PHILLIP DO Mar 02, 2019 20:58
== END 2019-03-01 11:20 | disposition home or self-care (01) | DRG 639 ==
LOC: EDUNIT# 18:09 → ER 18:11 → UNDOADMIN 20:10 → ICU 20:10 → 4TH 02-28 08:48
PROVIDERS: ADMIT Internal Medicine; ATTEND Internal Medicine
DX: E11.10 Type 2 diabetes mellitus with ketoacidosis without coma (principal); E86.0 Dehydration; Z91.19 Patient's noncompliance with other medical treatment and regimen; J45.909 Unspecified asthma, uncomplicated; I25.2 Old myocardial infarction; E78.00 Pure hypercholesterolemia, unspecified; I10 Essential (primary) hypertension; K21.9 Gastro-esophageal reflux disease without esophagitis; K44.9 Diaphragmatic hernia without obstruction or gangrene; K58.9 Irritable bowel syndrome, unspecified; M79.7 Fibromyalgia; N28.9 Disorder of kidney and ureter, unspecified; F90.9 Attention-deficit hyperactivity disorder, unspecified type; F41.9 Anxiety disorder, unspecified; F43.10 Post-traumatic stress disorder, unspecified; F32.9 Major depressive disorder, single episode, unspecified
CPT/HCPCS: 36415; 51702; 71045; 80048; 80053; 80306; 81000; 82150; 82805; 82962; 83036; 83605; 83690; 83735; 84100; 84703; 85025; 85610; 85730; 87040; 87081; 87804; 93005; 93041; 96361; 96374; 96375

== ENCOUNTER 2019-05-21 12:33 | Emergency (ER) | payer MEDICAID ==
[~2019-05-21] VITALS: Ht 165 cm; Wt 116.6 kg
[~2019-05-21 12:33] MED LIST changes: +ACET325T49 PO; +FAMO20TA5 PO; +GBPN600T PO; +INSU100I14 SQ; +INSU100I29 SQ; +MIRT30TA6 PO; +NAPR-915 PO; +NEED1DIS84 MC; +PANT40TA3 PO; +QUET300T71 PO
--- NOTE | 2019-05-21 13:41 | ED Upper Extremity ---
General Chief Complaint: Upper Extremity Stated Complaint: FALL - L WRIST PAIN Nursing Triage Note: pt reports l wrist pain after falling when she lost her balance with her walker and hit her l wrist on the head stone when she was visiting her husbands yassine. Nursing Sepsis Screen: No Definite Risk History of Present Illness Date Seen by Provider: May 21, 2019 Time Seen by Provider: 13:00 Initial Comments 49-year-old female presents for left wrist pain. She reports earlier today losing her balance with her walker on uneven terrain and following hitting her hand on a tombstone. She denies any other complaints at this time. Onset: this morning Pain/Injury Location: left wrist Method of Injury: fell Modifying Factors: Improves With Rest Allergies and Home Medications Allergies Coded Allergies: lisinopril (Verified Allergy, Mild, COUGH, 03/05/17) montelukast (Verified Allergy, Unknown, 03/05/17) montelukast sodium (Verified Adverse Reaction, Unknown, 03/05/17) Uncoded Allergies: METALS (Allergy, Unknown, 07/12/14) Home Medications Acetaminophen 325 Mg Tablet, 650 MG PO Q6H PRN for PAIN-MILD, (Reported) Duloxetine HCl 60 Mg Capsule.dr, 60 MG PO BID, (Reported) Famotidine 20 Mg Tablet, 20 MG PO DAILY, (Reported) Gabapentin 600 Mg Tablet, 600 MG PO TID, (Reported) Insulin Aspart 300 Units/3 Ml Solution, 7 UNITS SQ AC Prescribed by: KAMILLE PHILLIP on 03/01/19 0955 Insulin Detemir 100 Unit/1 Ml Insuln.pen, 10 UNIT SQ HS Prescribed by: KAMILLE PHILLIP on 03/01/19 0955 Mirtazapine 30 Mg Tablet, 30 MG PO DAILY, (Reported) Naproxen 500 Mg Tablet, 500 MG PO DAILY PRN for PAIN-MILD, (Reported) Ondansetron HCl 4 Mg Tab, 4 MG PO Q4H PRN for NAUSEA/VOMITING-1ST LINE Prescribed by: TRACY ZARAGOZA on 06/19/18 1429 Pantoprazole Sodium 40 Mg Tablet.dr, 40 MG PO DAILY, (Reported) Quetiapine Fumarate 300 Mg Tab.er.24h, 300 MG PO HS, (Reported) Patient Home Medication List Home Medication List Reviewed: Yes Review of Systems Constitutional: no symptoms reported, see HPI Musculoskeletal: see HPI, joint pain (.Left wrist, ulnar side) All Other Systems Reviewed Negative Unless Noted: Yes Past Igiedpu-Ockldb-Opwvhl Hx Past Med/Social Hx: Reviewed Nursing Past Med/Soc Hx Patient Social History Alcohol Use: Denies Use Recreational Drug Use: No Smoking Status: Never a Smoker 2nd Hand Smoke Exposure: No Recent Foreign Travel: No Contact w/Someone Who Travel: No Recent Infectious Disease Expo: No Recent Hopitalizations: No Physical Abuse: No Sexual Abuse: No Mistreated: No Fear: No Immunizations Up To Date Tetanus Booster (TDap): More than 5yrs Seasonal Allergies Seasonal Allergies: No Past Medical History Surgeries: Yes (D&C; RIGHT KNEE SCOPE X 2; EGD; CARDIAC CATH 2012--NO INTER VENTION) Cardiac, Eye Surgery, Orthopedic Respiratory: Yes Asthma Currently Using CPAP: No Currently Using BIPAP: No Cardiac: Yes (CARDIAC CATH 2012--NORMAL CORONARIES, NO INTERVENTION) High Cholesterol, Hypertension Neurological: Yes Headaches /Migraines 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 Disorders: No Female 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 Disorders: Denies ACUTE CARE PHYSICAL THERAPIST History: Menopausal Sexually Transmitted Disease: No Genitourinary: Yes Kidney Stones Gastrointestinal: Yes Gastroesophageal Reflux, Hiatal Hernia, Irritable Bowel Musculoskeletal: Yes Fibromyalgia Endocrine: Yes (NON COMPLAINT) Diabetes, Non-Insulin dep HEENT: Yes (EYE SURGERY) Loss of Vision: Denies Hearing Impairment: Denies Cancer: No Psychosocial: Yes (EXTENSIVE PSYCH ISSUES) ADD/ADHD, Anxiety, PTSD, Depression Integumentary: No Blood Disorders: No Adverse Reaction/Blood Tranf: No Family Medical History Patient reports no known family medical history. No Pertinent Family Hx, CVA, Seizures Physical Exam Vital Signs Vital Signs - First Documented 05/21/19 05/21/19 12:54 14:04 Temp 36.6 Pulse 81 Resp 16 B/P (MAP) 145/90 Pulse Ox 96 Capillary Refill : Less Than 3 Seconds Height, Weight, BMI Height: 5'3.00" Weight: 240lbs. 2.0oz. 108.630032ao; 42.00 BMI Method:Stated General Appearance: WD/WN, no apparent distress Cardiovascular: normal peripheral pulses, regular rate, rhythm Respiratory: chest non-tender, lungs clear Elbow/Forearm: normal inspection, non-tender, no evidence of injury, normal ROM, Left Wrist: Yes normal inspection; No abrasions; Yes bone tenderness (left ulna, distal), Yes limited ROM, Yes pain, Yes soft tissue tenderness Neurologic/Psychiatric: no motor/sensory deficits, alert, normal mood/affect, oriented x 3 Skin: normal color, warm/dry Progress/Results/Core Measures Results/Orders My Orders Orders - LYNDSEY SOUZA Wrist, Left, 3 Views Or More (05/21/19 12:59) Ibuprofen Tablet (Motrin Tablet) (05/21/19 13:45) Medications Given in ED Current Medications Medications Dose Ordered Sig/Kate Route Start Time Stop Time Status Last Admin Dose Admin Ibuprofen 600 mg ONCE ONCE PO 05/21/19 13:45 05/21/19 13:46 DC 05/21/19 14:04 600 MG Vital Signs/I&O 05/21/19 05/21/19 12:54 14:04 Temp 36.6 36.6 Pulse 81 80 Resp 16 16 B/P (MAP) 145/90 Pulse Ox 96 96 Diagnostic Imaging Diagonstic Imaging: Xray Plain Films/CT/US/NM/MRI: other (wrist) Comments NAME: NAE PRICE [facility] REC#: [id number] PT STATUS: REG ER : 1970 PHYSICIAN: LYNDSEY SOUZA ADMIT DATE: 05/21/19/ER Draft POSDate of Exam:05/21/19 WRIST, LEFT, 3 VIEWS OR MORE EXAMINATION: Left wrist radiographs, 3 views. COMPARISON: None. HISTORY: 49-year-old female, fall. Left wrist pain. FINDINGS: There is no identified acute fracture. Bone mineralization and alignment is unremarkable. There is no identified radiopaque foreign body. Joint spaces are well preserved. There is no prominent focal soft tissue swelling. IMPRESSION: No identified acute bony abnormality of the left wrist. Dictated on workstation # [id number] Dict: 05/21/19 1347 Trans: 05/21/19 1350 [facility] [id number] Interpreted by: ARABELLA PETERS MD Electronically signed by: Reviewed: Reviewed by Me Departure Impression Primary Impression: Sprain of left wrist Qualified Codes: S63.502A - Unspecified sprain of left wrist, initial encounter Disposition: 01 HOME, SELF-CARE Condition: Improved Departure-Patient Inst. Decision time for Depature: 13:35 Referrals: [facility]/SARAH (PCP) Primary Care Physician ARISTEO ARAYA (Family) Primary Care Physician Patient Instructions: Wrist Sprain (DC) Add. Discharge Instructions: Ice and elevate left wrist. Wear splint and willi wrap. Alternate Ibuprofen 600 mg and Tylenol 650 mg every 4 hours. Follow up with your primary care provider, in 2-3 days if symptoms are not improving or worsen. Return to the emergency department for new, urgent health care problems. All discharge instructions reviewed with patient and/or family. Voiced understanding. LYNDSEY SOUZA May 21, 2019 13:41 POS
[2019-05-21] MEDS ORDERED: IBUPROFEN 600 MG (MOTRIN) TAB PO ONE (13:45)
--- NOTE | 2019-05-21 13:51 | Diagnostic Imaging Report ---
EXAMINATION: Left wrist radiographs, 3 views. COMPARISON: None. HISTORY: 49-year-old female, fall. Left wrist pain. FINDINGS: There is no identified acute fracture. Bone mineralization and alignment is unremarkable. There is no identified radiopaque foreign body. Joint spaces are well preserved. There is no prominent focal soft tissue swelling. IMPRESSION: No identified acute bony abnormality of the left wrist. Dictated by: Dictated on workstation # [id number]
[2019-05-21 14:04] VITALS: BP 145/90
== END 2019-05-21 14:04 | disposition home or self-care (01) ==
LOC: EDUNIT# 12:33 → ER 12:34
DX: S63.502A Unspecified sprain of left wrist, initial encounter (principal); J45.909 Unspecified asthma, uncomplicated; I10 Essential (primary) hypertension; E78.00 Pure hypercholesterolemia, unspecified; G43.909 Migraine, unspecified, not intractable, without status migrainosus; K21.9 Gastro-esophageal reflux disease without esophagitis; K58.9 Irritable bowel syndrome, unspecified; M79.7 Fibromyalgia; E11.9 Type 2 diabetes mellitus without complications; F90.9 Attention-deficit hyperactivity disorder, unspecified type; F41.9 Anxiety disorder, unspecified; F43.10 Post-traumatic stress disorder, unspecified; F32.9 Major depressive disorder, single episode, unspecified; Z87.442 Personal history of urinary calculi; Z88.8 Allergy status to other drugs, medicaments and biological substances; Z79.4 Long term (current) use of insulin; Z95.9 Presence of cardiac and vascular implant and graft, unspecified; W18.39XA Other fall on same level, initial encounter; W22.8XXA Striking against or struck by other objects, initial encounter
CPT/HCPCS: 73110

== ENCOUNTER 2019-11-21 08:17 | Emergency (ER) | payer MEDICAID ==
[~2019-11-21] VITALS: Ht 160 cm; Wt 111.6 kg
[~2019-11-21 08:17] MED LIST changes: -ARIP5TAB20 PO; +ARIP5TAB57 PO; -TAMS0.4C98 PO; +TMSL.4C PO
[2019-11-21 09:46] LABS: BASOPHILS % (AUTO) 1 % (0-10); EOSINOPHILS # (AUTO) 0.1 10^3/uL (0.0-0.3); EOSINOPHILS % (AUTO) 2 % (0-10); HEMATOCRIT 40 % (35-52); HEMOGLOBIN 12.8 G/DL (11.5-16.0); LYMPHOCYTES # (AUTO) 2.1 X 10^3 (1.0-4.0); LYMPHOCYTES % (AUTO) 34 % (12-44); MEAN CORPUSCULAR HEMOGLOBIN 27 PG (25-34); MEAN CORPUSCULAR HGB CONC 32 G/DL (32-36); MEAN CORPUSCULAR VOLUME 84 FL (80-99); MEAN PLATELET VOLUME 11.3 FL (7.4-10.4); MONOCYTES # (AUTO) 0.4 X 10^3 (0.0-1.0); MONOCYTES % (AUTO) 6 % (0-12); NEUTROPHILS # (AUTO) 3.5 X 10^3 (1.8-7.8); NEUTROPHILS % (AUTO) 58 % (42-75); PLATELET COUNT 280 10^3/uL (130-400); RED CELL DISTRIBUTION WIDTH 16.6 % (10.0-14.5); WHITE BLOOD COUNT 6.1 10^3/uL (4.3-11.0)
[2019-11-21 09:49] LABS: BILIRUBIN,URINE NEGATIVE (NEGATIVE); CLARITY,URINE CLEAR; COLOR,URINE YELLOW; GLUCOSE, URINE (UA) 3+ (NEGATIVE); KETONES,URINE NEGATIVE (NEGATIVE); LEUKOCYTE ESTERASE ,URINE NEGATIVE (NEGATIVE); NITRITE,URINE NEGATIVE (NEGATIVE); PH,URINE >=9.0 (5-9); PROTEIN,URINE TRACE (NEGATIVE)
[2019-11-21 10:03] LABS: BACTERIA,URINE FEW /HPF; RBC,URINE RARE /HPF; WBC,URINE RARE /HPF; YEAST,URINE FEW /HPF
[2019-11-21 10:09] LABS: AMPHETAMINE SCREEN, URINE NEGATIVE (NEGATIVE); BARBITURATE SCREEN URINE POSITIVE (NEGATIVE); BENZODIAZEPINES SCREEN URINE NEGATIVE (NEGATIVE); BILIRUBIN,TOTAL 0.7 MG/DL (0.1-1.0); CALCIUM 9.8 MG/DL (8.5-10.1); CANNABINOID SCREEN, URINE NEGATIVE (NEGATIVE); COCAINE SCREEN URINE NEGATIVE (NEGATIVE); CREATININE SERUM 1.09 MG/DL (0.60-1.30); METHADONE STAT NEGATIVE (NEGATIVE); METHAMPHETAMINE SCREEN URINE S NEGATIVE (NEGATIVE); OPIATE SCREEN URINE NEGATIVE (NEGATIVE); OXYCODONE STAT NEGATIVE (NEGATIVE); POTASSIUM 3.8 MMOL/L (3.6-5.0); PROPOXYPHENE STAT NEGATIVE (NEGATIVE); TOTAL PROTEIN 7.7 GM/DL (6.4-8.2); TRICYCLIC ANTIDEPRESSANTS SCRE POSITIVE (NEGATIVE)
[2019-11-21] MEDS ORDERED: NS IV 1000 ML 1,000 ML IV SCH (10:13)
[2019-11-21] MEDS ORDERED: KETOROLAC 30 MG/ML VIAL IVP ONE (10:15)
[2019-11-21] MEDS ORDERED: ONDANSETRON 4 MG/2 ML (SDV) Z0FRAN IVP ONE (10:15)
--- NOTE | 2019-11-21 10:17 | ED Abdominal Pain ---
General Chief Complaint: Abdominal/GI Problems Stated Complaint: FEVER;NAUSEA Nursing Triage Note: PT BROUHGT IN BY [facility] FROM HOME WITH COMPLAINT OF ABD PAIN AND VOMITING THAT STARTED THIS MORNING. PT IS COMPLAINING OF FEVER AT HOME, BUT DOES NOT HAVE A FEVER. STATES JUST "FELT SWEATY". AT TIME OF TRIAGE, PT STARTED COMPLAINING OF NECK PAIN THAT JUST STARTED THIS RN WALKED INTO THE ROOM. Sepsis Screen: No Definite Risk Source of Information: Patient Exam Limitations: No Limitations (LUÍS RITCHIE) History of Present Illness Date Seen by Provider: Nov 21, 2019 Time Seen by Provider: 09:58 Initial Comments Patient arrives to ER by EMS from home with chief complaint of abdominal pain around her umbilicus and left side 8 out of 10, sharp, constant starting today. She has not taken anything for the pain. She does not have a known history of diverticulitis or any abdominal surgeries. She said she had some purple-colored stools this morning. She's having no chest pain shortness of breath fevers chills but she is having nausea with vomiting. No history of hemorrhoids or rectal bleeding. She says she had a EGD years ago that demonstrated GERD and hiatal hernia. She follows with Chris Gutierrez for primary care. (LUÍS RITCHIE) Allergies and Home Medications Allergies Coded Allergies: lisinopril (Verified Allergy, Mild, COUGH, 03/05/17) montelukast (Verified Allergy, Unknown, 03/05/17) montelukast sodium (Verified Adverse Reaction, Unknown, 03/05/17) Uncoded Allergies: METALS (Allergy, Unknown, 07/12/14) Home Medications Acetaminophen 325 Mg Tablet, 650 MG PO Q6H PRN for PAIN-MILD, (Reported) Duloxetine HCl 60 Mg Capsule.dr, 60 MG PO BID, (Reported) Famotidine 20 Mg Tablet, 20 MG PO DAILY, (Reported) Gabapentin 600 Mg Tablet, 600 MG PO TID, (Reported) Insulin Aspart 300 Units/3 Ml Solution, 7 UNITS SQ AC Prescribed by: KAMILLE PHILLIP on 03/01/19954 Insulin Detemir 100 Unit/1 Ml Insuln.pen, 10 UNIT SQ HS Prescribed by: KAMILLE PHILLIP on 03/01/19954 Mirtazapine 30 Mg Tablet, 30 MG PO DAILY, (Reported) Naproxen 500 Mg Tablet, 500 MG PO DAILY PRN for PAIN-MILD, (Reported) Ondansetron 4 Mg Tab.rapdis, 4 MG PO Q6H PRN for NAUSEA/VOMITING Prescribed by: LUÍS RITCHIE on 11/21/19 1250 Ondansetron HCl 4 Mg Tab, 4 MG PO Q4H PRN for NAUSEA/VOMITING-1ST LINE Prescribed by: TRACY ZARAGOZA on 06/19/18 1429 Pantoprazole Sodium 40 Mg Tablet.dr, 40 MG PO DAILY, (Reported) Quetiapine Fumarate 300 Mg Tab.er.24h, 300 MG PO HS, (Reported) Patient Home Medication List Home Medication List Reviewed: Yes (LUÍS RITCHIE) Review of Systems Review of Systems Constitutional: No chills, No diaphoresis; fever, malaise EENTM: No Blurred Vision, No Double Vision Respiratory: Denies Cough, Denies Shortness of Air Cardiovascular: Denies Chest Pain, Denies Edema Gastrointestinal: See HPI; Denies Abdomen Distended; Abdominal Pain; Denies Constipated; Diarrhea, Nausea, Poor Fluid Intake, Vomiting Genitourinary: Denies Burning, Denies Discharge Musculoskeletal: No back pain, No joint pain Skin: No pruritus, No rash Psychiatric/Neurological: Denies Headache, Denies Numbness, Denies Paresthesia (LUÍS RITCHIE) All Other Systems Reviewed Negative Unless Noted: Yes (LUÍS RITCHIE) Past Ddcgybl-Rcbocw-Vefljl Hx Patient Social History Alcohol Use: Denies Use Recreational Drug Use: No Smoking Status: Never a Smoker 2nd Hand Smoke Exposure: No Recent Foreign Travel: No Contact w/Someone Who Travel: No Recent Infectious Disease Expo: No Recent Hopitalizations: No (LUÍS RITCHIE) Immunizations Up To Date Tetanus Booster (TDap): More than 5yrs (LUÍS RITCHIE) Seasonal Allergies Seasonal Allergies: No (LUÍS RITCHIE) Past Medical History Surgeries: Yes (D&C; RIGHT KNEE SCOPE X 2; EGD; CARDIAC CATH 2012--NO INTERVENTION) Cardiac, Eye Surgery, Orthopedic Respiratory: Yes Asthma Currently Using CPAP: No Currently Using BIPAP: No Cardiac: Yes (CARDIAC CATH 2012--NORMAL CORONARIES, NO INTERVENTION) High Cholesterol, Hypertension Neurological: Yes Headaches /Migraines 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 Disorders: No Female 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 Disorders: Denies INFORMATION BROKER History: Menopausal Sexually Transmitted Disease: No Genitourinary: Yes Kidney Stones Gastrointestinal: Yes Gastroesophageal Reflux, Hiatal Hernia, Irritable Bowel Musculoskeletal: Yes Fibromyalgia Endocrine: Yes (NON COMPLAINT) Diabetes, Non-Insulin dep HEENT: Yes (EYE SURGERY) Loss of Vision: Denies Hearing Impairment: Denies Cancer: No Psychosocial: Yes (EXTENSIVE PSYCH ISSUES) ADD/ADHD, Anxiety, PTSD, Depression Integumentary: No Blood Disorders: No Adverse Reaction/Blood Tranf: No (LUÍS RITCHIE) Family Medical History Patient reports no known family medical history. No Pertinent Family Hx, CVA, Seizures (LUÍS RITCHIE) Physical Exam Vital Signs Vital Signs - First Documented 11/21/19 08:45 Temp 36.6 Pulse 75 Resp 20 B/P (MAP) 126/80 (95) Pulse Ox 100 O2 Delivery Room Air (SHAN BLACK APRN) Vital Signs Capillary Refill : Less Than 3 Seconds (LUÍS RITCHIE) Height/Weight/BMI Height: 5'3.00" Weight: 240lbs. 2.0oz. 108.424237mq; 43.00 BMI Method:Stated General Appearance: mild distress, obese HEENT: PERRL/EOMI, normal ENT inspection, pharynx normal Neck: full range of motion, normal inspection Respiratory: lungs clear, normal breath sounds, no respiratory distress, no accessory muscle use Cardiovascular: normal peripheral pulses, regular rate, rhythm Peripheral Pulses: 2+ Dorsalis Pedis (R), 2+ Left Dors-Pedis (L), 2+ Radial Pulses (R), 2+ Radial Pulses (L) Gastrointestinal: normal bowel sounds, soft, tenderness (left abdomen upright and lower.), other (negative for Smith sign, McBurney's point tenderness.) Extremities: normal range of motion, normal inspection, normal capillary refill Neurologic/Psychiatric: alert, normal mood/affect, oriented x 3 Skin: normal color, warm/dry (LUÍS RITCHIE) Progress/Results/Core Measures Results/Orders Lab Results Laboratory Tests Test 11/21/19 09:34 Range/Units White Blood Count 6.1 4.3-11.0 10^3/uL Red Blood Count 4.75 4.35-5.85 10^6/uL Hemoglobin 12.8 11.5-16.0 G/DL Hematocrit 40 35-52 % Mean Corpuscular Volume 84 80-99 FL Mean Corpuscular Hemoglobin 27 25-34 PG Mean Corpuscular Hemoglobin Concent 32 32-36 G/DL Red Cell Distribution Width 16.6 H 10.0-14.5 % Platelet Count 280 130-400 10^3/uL Mean Platelet Volume 11.3 H 7.4-10.4 FL Neutrophils (%) (Auto) 58 42-75 % Lymphocytes (%) (Auto) 34 12-44 % Monocytes (%) (Auto) 6 0-12 % Eosinophils (%) (Auto) 2 0-10 % Basophils (%) (Auto) 1 0-10 % Neutrophils # (Auto) 3.5 1.8-7.8 X 10^3 Lymphocytes # (Auto) 2.1 1.0-4.0 X 10^3 Monocytes # (Auto) 0.4 0.0-1.0 X 10^3 Eosinophils # (Auto) 0.1 0.0-0.3 10^3/uL Basophils # (Auto) 0.0 0.0-0.1 10^3/uL Urine Color YELLOW Urine Clarity CLEAR Urine pH >=9.0 5-9 Urine Specific [place] 1.015 L 1.016-1.022 Urine Protein TRACE H NEGATIVE Urine Glucose (UA) 3+ H NEGATIVE Urine Ketones NEGATIVE NEGATIVE Urine Nitrite NEGATIVE NEGATIVE Urine Bilirubin NEGATIVE NEGATIVE Urine Urobilinogen 0.2 < = 1.0 MG/DL Urine Leukocyte Esterase NEGATIVE NEGATIVE Urine RBC (Auto) NEGATIVE NEGATIVE Urine RBC RARE /HPF Urine WBC RARE /HPF Urine Squamous Epithelial Cells 2-5 /HPF Urine Crystals NONE /LPF Urine Bacteria FEW H /HPF Urine Casts NONE /LPF Urine Mucus NEGATIVE /LPF Urine Yeast FEW H /HPF Urine Culture Indicated YES Sodium Level 140 135-145 MMOL/L Potassium Level 3.8 3.6-5.0 MMOL/L Chloride Level 106 98-107 MMOL/L Carbon Dioxide Level 20 L 21-32 MMOL/L Anion Gap 14 5-14 MMOL/L Blood Urea Nitrogen 14 7-18 MG/DL Creatinine 1.09 0.60-1.30 MG/DL Estimat Glomerular Filtration Rate 53 BUN/Creatinine Ratio 13 Glucose Level 117 H 70-105 MG/DL Calcium Level 9.8 8.5-10.1 MG/DL Corrected Calcium 9.8 8.5-10.1 MG/DL Total Bilirubin 0.7 0.1-1.0 MG/DL Aspartate Amino Transf (AST/SGOT) 15 5-34 U/L Alanine Aminotransferase (ALT/SGPT) 11 0-55 U/L Alkaline Phosphatase 45 40-136 U/L Total Protein 7.7 6.4-8.2 GM/DL Albumin 4.0 3.2-4.5 GM/DL Lipase 53 8-78 U/L Urine Opiates Screen NEGATIVE NEGATIVE Urine Oxycodone Screen NEGATIVE NEGATIVE Urine Methadone Screen NEGATIVE NEGATIVE Urine Propoxyphene Screen NEGATIVE NEGATIVE Urine Barbiturates Screen POSITIVE H NEGATIVE Ur Tricyclic Antidepressants Screen POSITIVE H NEGATIVE Urine Phencyclidine Screen NEGATIVE NEGATIVE Urine Amphetamines Screen NEGATIVE NEGATIVE Urine Methamphetamines Screen NEGATIVE NEGATIVE Urine Benzodiazepines Screen NEGATIVE NEGATIVE Urine Cocaine Screen NEGATIVE NEGATIVE Urine Cannabinoids Screen NEGATIVE NEGATIVE (SHAN BLACK APRN) My Orders Orders - SHAN BLACK APRN Hydrocodone/Apap 5/325 Tablet (Lortab 5 (11/21/19 13:00) (SHAN BLACK APRN) Medications Given in ED Current Medications Medications Dose Ordered Sig/Kate Route Start Time Stop Time Status Last Admin Dose Admin Iohexol 100 ml ONCE ONCE IV 11/21/19 10:30 11/21/19 10:31 DC 11/21/19 11:00 100 ML Ketorolac Tromethamine 30 mg ONCE ONCE IVP 11/21/19 10:15 11/21/19 10:16 DC 11/21/19 10:37 30 MG Ondansetron HCl 4 mg ONCE ONCE IVP 11/21/19 10:15 11/21/19 10:16 DC 11/21/19 10:37 4 MG Sodium Chloride 100 ml ONCE ONCE IV 11/21/19 10:30 11/21/19 10:31 DC 11/21/19 11:00 80 ML (SHAN BLACK APRN) Vital Signs/I&O 11/21/19 08:45 Temp 36.6 Pulse 75 Resp 20 B/P (MAP) 126/80 (95) Pulse Ox 100 O2 Delivery Room Air (SHAN BLACK APRN) Blood Pressure Mean: 95 Progress Progress Note : Time: 10:16 Progress Note Fecal occult blood test negative. Rectal exam unremarkable. Plan to get a scan looking for diverticulitis. Initial labs unremarkable. Toradol and Zofran for her symptoms and a bag of fluids. (LUÍS RITCHIE) Diagnostic Imaging Diagonstic Imaging: CT Plain Films/CT/US/NM/MRI: abdomen, pelvis Comments [facility] [place], [place] NAME: NAE PRICE [facility] REC#: [id number] PT STATUS: REG ER : 1970 PHYSICIAN: LUÍS RITCHIE MD ADMIT DATE: 11/21/19/ER Draft Date of Exam:11/21/19 CT ABDOMEN/PELVIS W PROCEDURE: CT abdomen and pelvis with contrast. TECHNIQUE: Multiple contiguous axial images were obtained through the abdomen and pelvis after administration of intravenous contrast. Auto Exposure Controls were utilized during the CT exam to meet ALARA standards for radiation dose reduction. INDICATION: Abdominal pain at the level of the umbilicus. COMPARISON: Comparison is made with prior CT from 06/19/2018. FINDINGS: The lung bases are clear. Liver demonstrates generalized low density, consistent with hepatic steatosis. No discrete liver mass is identified. The gallbladder is unremarkable. No biliary ductal dilatation is identified. The pancreas and spleen are unremarkable. No adrenal mass is identified. The kidneys demonstrate some cortical scarring but no hydronephrosis is identified. Aorta is nonaneurysmal. The small and large bowel loops appear to be normal in caliber. There is diverticulosis of the sigmoid but no evidence of acute diverticulitis. Small bowel is normal in caliber. No inflammatory process is identified. There is no free fluid or fluid collection detected. The uterus and bladder are unremarkable. There is a small fat-containing umbilical hernia. No herniated bowel loops are identified. No definite abdominal or pelvic lymphadenopathy is identified. IMPRESSION: 1. Hepatic steatosis. 2. No acute feature in the abdomen or pelvis is identified. 3. Uncomplicated diverticulosis. Dictated on workstation # [id number] Dict: 11/21/19 1112 Trans: 11/21/19 1123 AS6 [id number] Interpreted by: CHU MEYER MD Electronically signed by: Reviewed: Reviewed by Me (LUÍS RITCHIE) Departure Impression Primary Impression: Gastroenteritis and colitis, viral Disposition: HOME, SELF-CARE Condition: Stable Departure-Patient Inst. Decision time for Depature: 12:48 (LUÍS RITCHIE) Referrals: [facility]/SARAH (PCP) Primary Care Physician ARISTEO GUTIERREZ (Family) Primary Care Physician Patient Instructions: Viral Gastroenteritis, Adult (DC) Add. Discharge Instructions: Drink lots of fluids. Stick to a brat diet bananas, rice, applesauce and toast. Ondansetron one tablet under the tongue every 6 hours as necessary for nausea or vomiting. If your diarrhea goes on for more than 24-48 hours then you may use 2 tablets of Imodium/loperamide followed by one tablet every 4 hours afterwards if you're still having loose, watery diarrhea. If your symptoms do not improve in 3-5 days then you should follow-up with your primary care doctor. Please return to the ER if you have intractable pain that does not go away with Tylenol or ibuprofen. All discharge instructions reviewed with patient and/or family. Voiced understanding. Scripts Ondansetron (Ondansetron Odt) 4 Mg Tab.rapdis 4 MG PO Q6H PRN for NAUSEA/VOMITING, #8 TAB 0 Refills Prov: LUÍS RITCHIE 11/21/19 LUÍS RITCHIE Nov 21, 2019 10:17 SHAN BLACK TRIALS MANAGER Nov 21, 2019 12:51
[2019-11-21] MEDS ORDERED: IOHEXOL 350 MG/ML 100 ML (OMNIPAQUE 350) VIAL IV ONE (10:30)
[2019-11-21] MEDS ORDERED: HOLD METFORMIN - RECEIVED CONTRAST 20 ML VIAL IV SCH (10:30)
[2019-11-21] MEDS ORDERED: NS 100 ML (IVPB) BAG IV ONE (10:30)
--- NOTE | 2019-11-21 11:24 | Diagnostic Imaging Report ---
PROCEDURE: CT abdomen and pelvis with contrast. TECHNIQUE: Multiple contiguous axial images were obtained through the abdomen and pelvis after administration of intravenous contrast. Auto Exposure Controls were utilized during the CT exam to meet ALARA standards for radiation dose reduction. INDICATION: Abdominal pain at the level of the umbilicus. COMPARISON: Comparison is made with prior CT from 06/19/2018. FINDINGS: The lung bases are clear. Liver demonstrates generalized low density, consistent with hepatic steatosis. No discrete liver mass is identified. The gallbladder is unremarkable. No biliary ductal dilatation is identified. The pancreas and spleen are unremarkable. No adrenal mass is identified. The kidneys demonstrate some cortical scarring but no hydronephrosis is identified. Aorta is nonaneurysmal. The small and large bowel loops appear to be normal in caliber. There is diverticulosis of the sigmoid but no evidence of acute diverticulitis. Small bowel is normal in caliber. No inflammatory process is identified. There is no free fluid or fluid collection detected. The uterus and bladder are unremarkable. There is a small fat-containing umbilical hernia. No herniated bowel loops are identified. No definite abdominal or pelvic lymphadenopathy is identified. IMPRESSION: 1. Hepatic steatosis. 2. No acute feature in the abdomen or pelvis is identified. 3. Uncomplicated diverticulosis. Dictated by: Dictated on workstation # [id number]
[2019-11-21] MEDS ORDERED: ONDA4TAB11 PO ×2 (12:50)
[2019-11-21] MEDS ORDERED: HYDROcodone/APAP 5 MG/325 MG (LORTAB) TAB PO ONE (13:00)
[2019-11-21 13:11] VITALS: BP 120/73
[2019-11-22] MEDS ORDERED: CANA300T PO ×2 (16:02)
[2019-11-22] MEDS ORDERED: INSU100I29 SQ ×2 (16:02)
[2019-11-22] MEDS ORDERED: PROP60TA17 PO ×2 (16:02)
[2019-11-22] MEDS ORDERED: BUTA1TAB9 PO ×2 (16:02)
[2019-11-22] MEDS ORDERED: DOCU100C37 PO ×2 (16:02)
[2019-11-22] MEDS ORDERED: PIOG45TA65 PO ×2 (16:02)
[2019-11-22] MEDS ORDERED: SPIR25TA5 PO ×2 (16:02)
[2019-11-22] MEDS ORDERED: QUET200T29 PO ×2 (16:10)
[2019-11-22] MEDS ORDERED: DULO30CA49 PO ×2 (16:10)
== END 2019-11-21 13:12 | disposition home or self-care (01) ==
LOC: EDUNIT# 08:17 → ER 08:18
DX: A08.4 Viral intestinal infection, unspecified (principal); I10 Essential (primary) hypertension; K21.9 Gastro-esophageal reflux disease without esophagitis; F41.9 Anxiety disorder, unspecified; F32.9 Major depressive disorder, single episode, unspecified; M79.7 Fibromyalgia; Z91.19 Patient's noncompliance with other medical treatment and regimen; Z79.4 Long term (current) use of insulin; Z95.9 Presence of cardiac and vascular implant and graft, unspecified; Z88.8 Allergy status to other drugs, medicaments and biological substances
CPT/HCPCS: 36415; 74177; 80053; 80306; 81000; 83690; 85025; 87088

== ENCOUNTER 2019-11-21 22:27 | Inpatient (IN) | payer MEDICAID ==
[~2019-11-21] VITALS: Ht 160 cm; Wt 109.9 kg
[2019-11-21 23:06] LABS: CLARITY,URINE SL CLOUDY; COLOR,URINE ORANGE; GLUCOSE, URINE (UA) 3+ (NEGATIVE); KETONES,URINE TRACE (NEGATIVE); LEUKOCYTE ESTERASE ,URINE NEGATIVE (NEGATIVE); NITRITE,URINE NEGATIVE (NEGATIVE); PROTEIN,URINE 1+ (NEGATIVE)
[2019-11-21 23:24] LABS: BACTERIA,URINE TRACE /HPF; BILIRUBIN,URINE 1+ (NEGATIVE)
[2019-11-21] MEDS ORDERED: LACTATED RINGERS 1,000 ML IV ONE (23:37)
--- NOTE | 2019-11-21 23:59 | ED Abdominal Pain ---
General Chief Complaint: Abdominal/GI Problems Stated Complaint: STOMACH PAIN Nursing Triage Note: Pt to [facility] 6 with c/o N/V/D/abd pain since this morning. Pt was seen in this ER this morning for same symptoms. Sepsis Screen: No Definite Risk Source of Information: Patient Exam Limitations: No Limitations (ZAIN MURO MED STUDENT) History of Present Illness Date Seen by Provider: Nov 21, 2019 Time Seen by Provider: 23:36 Initial Comments Mrs. Ca is a 49 year old female who presents to the emergency department this evening with complaints of worsening abdominal pain since her ED visit this morning. She had an abdominal CT, lab work, and UA done at her visit this morning. Her discharge diagnosis was gastroenteritis and colitis, she was treated with tramadol, zofran, and IV fluids. She was sent home with zofran which she states she has been taking with no benefit. After leaving the ED the patient went to [facility] to be seen. She states she was COVID swabbed and given an inhaler. Symptoms now include generalized diffuse abdominal pain that she describes as constant, sharp, and a 7/10 with no radiation. The pain is improved with movement and worse when she is laying flat or after eating. She denies constipation, diarrhea, fever, chest pain, or hematemesis. She admits to shortness of breath which began today, chills, nausea, vomiting, and dizziness along with the generalized abdominal pain. She has not taken her home medications today. Timing/Duration: 1 Day Location: Generalized Abdomen Radiation: No Radiation Activities at Onset: None Modifying Factors: Worsens With Lying down; Improves With Movement Associated Symptoms: No Chest Pain; Fever/Chills (chills no fever), Fatigue, Nausea/Vomiting, Shortness of Air, Other (dizziness) (ZAIN MURO,MARCI STUDENT) Allergies and Home Medications Allergies Coded Allergies: lisinopril (Verified Allergy, Mild, COUGH, 03/05/17) montelukast (Verified Allergy, Unknown, 03/05/17) montelukast sodium (Verified Adverse Reaction, Unknown, 03/05/17) Uncoded Allergies: METALS (Allergy, Unknown, 07/12/14) Home Medications Acetaminophen 325 Mg Tablet, 650 MG PO Q6H PRN for PAIN-MILD, (Reported) Duloxetine HCl 60 Mg Capsule.dr, 60 MG PO BID, (Reported) Famotidine 20 Mg Tablet, 20 MG PO DAILY, (Reported) Gabapentin 600 Mg Tablet, 600 MG PO TID, (Reported) Insulin Aspart 300 Units/3 Ml Solution, 7 UNITS SQ AC Prescribed by: KAMILLE PHILLIP on 03/01/19 0955 Insulin Detemir 100 Unit/1 Ml Insuln.pen, 10 UNIT SQ HS Prescribed by: KAMILLE PHILLIP on 03/01/19 0955 Mirtazapine 30 Mg Tablet, 30 MG PO DAILY, (Reported) Naproxen 500 Mg Tablet, 500 MG PO DAILY PRN for PAIN-MILD, (Reported) Ondansetron 4 Mg Tab.rapdis, 4 MG PO Q6H PRN for NAUSEA/VOMITING Prescribed by: LUÍS RITCHIE on 11/21/19 1250 Ondansetron HCl 4 Mg Tab, 4 MG PO Q4H PRN for NAUSEA/VOMITING-1ST LINE Prescribed by: TRACY ZARAGOZA on 06/19/18 1429 Pantoprazole Sodium 40 Mg Tablet.dr, 40 MG PO DAILY, (Reported) Quetiapine Fumarate 300 Mg Tab.er.24h, 300 MG PO HS, (Reported) Patient Home Medication List Home Medication List Reviewed: Yes (ZAIN MURO MED STUDENT) Review of Systems Review of Systems Constitutional: chills, dizziness; No fever EENTM: No Symptoms Reported Respiratory: Denies Cough; Shortness of Air Cardiovascular: No Symptoms Reported Gastrointestinal: Abdominal Pain; Denies Blood Streaked Stools, Denies Constipated, Denies Diarrhea; Nausea; Denies Rectal Bleeding; Vomiting Genitourinary: No Symptoms Reported Musculoskeletal: no symptoms reported Skin: no symptoms reported Psychiatric/Neurological: No Symptoms Reported Endocrine: No Symptoms Reported (ZAIN MURO MED STUDENT) Past Eaaihdb-Tnghjb-Vbwkuh Hx Past Med/Social Hx: Reviewed Nursing Past Med/Soc Hx (LENNY BOYKIN MD) Patient Social History Alcohol Use: Denies Use Recreational Drug Use: No Smoking Status: Never a Smoker 2nd Hand Smoke Exposure: No Recent Foreign Travel: No Contact w/Someone Who Travel: No Recent Infectious Disease Expo: No Recent Hopitalizations: No (ZAIN MURO MED STUDENT) Immunizations Up To Date Tetanus Booster (TDap): More than 5yrs (ZAIN MURO MED STUDENT) Seasonal Allergies Seasonal Allergies: No (VENN,ZAIN,MED STUDENT) Past Medical History Surgeries: Yes (D&C; RIGHT KNEE SCOPE X 2; EGD; CARDIAC CATH 2012--NO INTERVENTION) Cardiac, Eye Surgery, Orthopedic Respiratory: Yes Asthma Currently Using CPAP: No Currently Using BIPAP: No Cardiac: Yes (CARDIAC CATH 2012--NORMAL CORONARIES, NO INTERVENTION) High Cholesterol, Hypertension Neurological: Yes Headaches /Migraines 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 Disorders: No Female 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 Disorders: Denies 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 No Pertinent Family Hx, CVA, Seizures (ZAIN MURO MED STUDENT) Physical Exam Vital Signs Vital Signs - First Documented 11/21/19 22:52 Temp 36.2 Pulse 96 Resp 22 B/P (MAP) 143/104 (117) Pulse Ox 99 O2 Delivery Room Air (LENNY BOYKIN MD) Vital Signs Capillary Refill : Less Than 3 Seconds (ZAIN MURO,MARCI STUDENT) Height/Weight/BMI Height: 5'3.00" Weight: 240lbs. 2.0oz. 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, no motor/sensory deficits, alert, oriented x 3, other (Anxious) Skin: normal color, warm/dry (LENNY BOYKIN MD) Progress/Results/Core Measures Results/Orders Lab Results Laboratory Tests Test 11/21/19 22:56 11/21/19 23:54 Range/Units Urine Color ORANGE Urine Clarity SL CLOUDY Urine pH 5.0 5-9 Urine Specific [place] 1.025 H 1.016-1.022 Urine Protein 1+ H NEGATIVE Urine Glucose (UA) 3+ H NEGATIVE Urine Ketones TRACE H NEGATIVE Urine Nitrite NEGATIVE NEGATIVE Urine Bilirubin 1+ H NEGATIVE Urine Urobilinogen 1.0 < = 1.0 MG/DL Urine Leukocyte Esterase NEGATIVE NEGATIVE Urine RBC (Auto) 1+ H NEGATIVE Urine RBC 5-10 H /HPF Urine WBC NONE /HPF Urine Squamous Epithelial Cells 5-10 /HPF Urine Crystals NONE /LPF Urine Bacteria TRACE /HPF Urine Casts NONE /LPF Urine Mucus SMALL H /LPF Urine Culture Indicated NO White Blood Count 9.4 4.3-11.0 10^3/uL Red Blood Count 4.75 4.35-5.85 10^6/uL Hemoglobin 12.7 11.5-16.0 G/DL Hematocrit 39 35-52 % Mean Corpuscular Volume 82 80-99 FL Mean Corpuscular Hemoglobin 27 25-34 PG Mean Corpuscular Hemoglobin Concent 33 32-36 G/DL Red Cell Distribution Width 17.3 H 10.0-14.5 % Platelet Count 305 130-400 10^3/uL Mean Platelet Volume 11.1 H 7.4-10.4 FL Neutrophils (%) (Auto) 63 42-75 % Lymphocytes (%) (Auto) 27 12-44 % Monocytes (%) (Auto) 9 0-12 % Eosinophils (%) (Auto) 0 0-10 % Basophils (%) (Auto) 0 0-10 % Neutrophils # (Auto) 5.9 1.8-7.8 X 10^3 Lymphocytes # (Auto) 2.6 1.0-4.0 X 10^3 Monocytes # (Auto) 0.8 0.0-1.0 X 10^3 Eosinophils # (Auto) 0.0 0.0-0.3 10^3/uL Basophils # (Auto) 0.0 0.0-0.1 10^3/uL Sodium Level 141 135-145 MMOL/L Potassium Level 4.0 3.6-5.0 MMOL/L Chloride Level 107 98-107 MMOL/L Carbon Dioxide Level 14 L 21-32 MMOL/L Anion Gap 20 H 5-14 MMOL/L Blood Urea Nitrogen 18 7-18 MG/DL Creatinine 1.64 H 0.60-1.30 MG/DL Estimat Glomerular Filtration Rate 33 BUN/Creatinine Ratio 11 Glucose Level 142 H 70-105 MG/DL Calcium Level 10.3 H 8.5-10.1 MG/DL Corrected Calcium 10.1 8.5-10.1 MG/DL Total Bilirubin 0.9 0.1-1.0 MG/DL Aspartate Amino Transf (AST/SGOT) 26 5-34 U/L Alanine Aminotransferase (ALT/SGPT) 13 0-55 U/L Alkaline Phosphatase 45 40-136 U/L C-Reactive Protein High Sensitivity 0.45 0.00-0.50 MG/DL Total Protein 8.4 H 6.4-8.2 GM/DL Albumin 4.3 3.2-4.5 GM/DL Lipase 28 8-78 U/L (LENNY BOYKIN MD) My Orders Orders - LENNY BOYKIN MD Ua Culture If Indicated (11/21/19 22:34) Cbc With Automated Diff (11/21/19 23:37) Comprehensive Metabolic Panel (11/21/19 23:37) Hs C Reactive Protein (11/21/19 23:37) Lipase (11/21/19 23:37) Ed Iv/Invasive Line Start (11/21/19 23:37) Ed Iv/Invasive Line Start (11/21/19 23:37) Lactated Ringers (Lr 1000 Ml Iv Solution (11/21/19 23:37) Famotidine Injection (Pepcid Injection) (11/22/19 01:00) Ondansetron Injection (Zofran Injectio (11/22/19 01:00) Fentanyl Injection (Sublimaze Injection (11/22/19 01:00) (LENNY BOYKIN MD) Medications Given in ED Current Medications Medications Dose Ordered Sig/Kate Route Start Time Stop Time Status Last Admin Dose Admin Lactated Ringer's 1,000 ml @ 0 mls/hr Q0M ONCE IV 11/21/19 23:37 11/21/19 23:39 DC 11/22/19 00:02 0 MLS/HR (LENNY BOYKIN MD) Vital Signs/I&O 11/21/19 22:52 Temp 36.2 Pulse 96 Resp 22 B/P (MAP) 143/104 (117) Pulse Ox 99 O2 Delivery Room Air (LENNY BOYKIN MD) Blood Pressure Mean: 117 Progress Progress Note : Progress Note Patient's creatinine bumped a bit. This is likely owing to her inability to keep down food or fluid. Workup was otherwise unremarkable. Gallbladder ultrasound was ordered for later in the morning. Pain was treated with fentanyl. Nausea was treated with Zofran and Pepcid. This is patient's third visit in less than 24 hours. Admission is warranted. IV fluids were infused. COVID precautions will be maintained until the results of her COVID screening at [facility] are known. (LENNY BOYKIN MD) Departure Communication (Admissions) Time/Spoke to Admitting Phy: 00:50 Dr. Phillip Time/Spoke to Consulting Phy: 00:50 Dr. Gill (LENNY BOYKIN MD) Impression Primary Impression: Generalized abdominal pain Additional Impressions: Intractable nausea and vomiting Renal insufficiency Disposition: ADMITTED INPATIENT Condition: Improved Admissions Decision to Admit Reason: Admit from ER (General) Decision to Admit/Date: Nov 22, 2019 Time/Decision to Admit Time: 00:40 (LENNY BOYKIN MD) Departure-Patient Inst. Referrals: [facility] (PCP) Primary Care Physician ARISTEO ARAYA (Family) Primary Care Physician I have personally interviewed and examined this patient along with DIMA Lovelace. I agree with her history, exam, and assessments, and documentation. (LENNY BOYKIN MD) ZAIN MURO,MED STUDENT Nov 21, 2019 23:59 LENNY BOYKIN MD Nov 22, 2019 00:58
[2019-11-22 00:01] LABS: BASOPHILS % (AUTO) 0 % (0-10); EOSINOPHILS % (AUTO) 0 % (0-10); HEMATOCRIT 39 % (35-52); HEMOGLOBIN 12.7 G/DL (11.5-16.0); LYMPHOCYTES # (AUTO) 2.6 X 10^3 (1.0-4.0); LYMPHOCYTES % (AUTO) 27 % (12-44); MEAN CORPUSCULAR HEMOGLOBIN 27 PG (25-34); MEAN CORPUSCULAR HGB CONC 33 G/DL (32-36); MEAN CORPUSCULAR VOLUME 82 FL (80-99); MEAN PLATELET VOLUME 11.1 FL (7.4-10.4); MONOCYTES # (AUTO) 0.8 X 10^3 (0.0-1.0); MONOCYTES % (AUTO) 9 % (0-12); NEUTROPHILS # (AUTO) 5.9 X 10^3 (1.8-7.8); NEUTROPHILS % (AUTO) 63 % (42-75); PLATELET COUNT 305 10^3/uL (130-400); RED CELL DISTRIBUTION WIDTH 17.3 % (10.0-14.5); WHITE BLOOD COUNT 9.4 10^3/uL (4.3-11.0)
[2019-11-22 00:21] LABS: ALBUMIN 4.3 GM/DL (3.2-4.5); BILIRUBIN,TOTAL 0.9 MG/DL (0.1-1.0); CALCIUM 10.3 MG/DL (8.5-10.1); CREATININE SERUM 1.64 MG/DL (0.60-1.30); TOTAL PROTEIN 8.4 GM/DL (6.4-8.2)
[2019-11-22] MEDS ORDERED: FAMOTIDINE 20MG/2ML IV (PEPCID) IVP ONE (01:00)
[2019-11-22] MEDS ORDERED: ONDANSETRON 4 MG/2 ML (SDV) Z0FRAN IVP ONE (01:00)
[2019-11-22] MEDS ORDERED: fentaNYL INJECTION 100 MCG/2 ML AMP IVP ONE (01:00)
--- NOTE | 2019-11-22 01:38 | Consultation - Surgery ---
History of Present Illness History of Present Illness Patient Consulted On(kristen/time) 11/22/19 01:33 Time Seen by Provider: 01:17 History of Present Illness Surgery asked to consult regarding intractable N/V and abdominal pain. HPI per ED: Pt to [facility] 6 with c/o N/V/D/abd pain since this morning. Pt was seen in this ER this morning for same symptoms. Mrs. Ca is a 49 year old female who presents to the emergency department this evening with complaints of worsening abdominal pain since her ED visit this morning. She had an abdominal CT, lab work, and UA done at her visit this morning. Her discharge diagnosis was gastroenteritis and colitis, she was t reated with tramadol, zofran, and IV fluids. She was sent home with zofran which she states she has been taking with no benefit. After leaving the ED the patient went to [facility] to be seen. She states she was COVID swabbed and given an inhaler. Symptoms now include generalized diffuse abdominal pain that she describes as constant, sharp, and a 7/10 with no radiation. The pain is improved with movement and worse when she is laying flat or after eating. She denies constipation, diarrhea, fever, chest pain, or hematemesis. She admits to shortness of breath which began today, chills, nausea, vomiting, and dizziness along with the generalized abdominal pain. She has not taken her home medications today. Timing/Duration: 1 Day Location: Generalized Abdomen Radiation: No Radiation Activities at Onset: None Modifying Factors: Worsens With Lying down; Improves With Movement Associated Symptoms: No Chest Pain; Fever/Chills (chills no fever), Fatigue, Nausea/Vomiting, Shortness of Air, Other (dizziness) When I spoke to pt she states this is the worst pain she has ever had; never had abdominal pain this bad. She states that she had EGD somewhere around 2000 for abdominal, "but it wasn't even half this bad". Nothing has made it better today. Allergies and Home Medications Allergies Coded Allergies: lisinopril (Verified Allergy, Mild, COUGH, 03/05/17) montelukast (Verified Allergy, Unknown, 03/05/17) montelukast sodium (Verified Adverse Reaction, Unknown, 03/05/17) Uncoded Allergies: METALS (Allergy, Unknown, 2/4/15) Home Medications Acetaminophen 325 Mg Tablet, 650 MG PO Q6H PRN for PAIN-MILD, (Reported) Duloxetine HCl 60 Mg Capsule.dr, 60 MG PO BID, (Reported) Famotidine 20 Mg Tablet, 20 MG PO DAILY, (Reported) Gabapentin 600 Mg Tablet, 600 MG PO TID, (Reported) Insulin Aspart 300 Units/3 Ml Solution, 7 UNITS SQ AC Prescribed by: KAMILLE PHILLIP on 03/01/19 09 Insulin Detemir 100 Unit/1 Ml Insuln.pen, 10 UNIT SQ HS Prescribed by: KAMILLE PHILLIP on 03/01/19 0955 Mirtazapine 30 Mg Tablet, 30 MG PO DAILY, (Reported) Naproxen 500 Mg Tablet, 500 MG PO DAILY PRN for PAIN-MILD, (Reported) Ondansetron 4 Mg Tab.rapdis, 4 MG PO Q6H PRN for NAUSEA/VOMITING Prescribed by: LUÍS RITCHIE on 11/21/19 1250 Ondansetron HCl 4 Mg Tab, 4 MG PO Q4H PRN for NAUSEA/VOMITING-1ST LINE Prescribed by: TRACY ZARAGOZA on 06/19/18 1429 Pantoprazole Sodium 40 Mg Tablet.dr, 40 MG PO DAILY, (Reported) Quetiapine Fumarate 300 Mg Tab.er.24h, 300 MG PO HS, (Reported) Patient Home Medication List Home Medication List Reviewed: Yes Past Xnmudjv-Pgfmic-Kfykiy Hx Patient Social History Alcohol Use: Denies Use Recreational Drug Use: No Smoking Status: Never a Smoker 2nd Hand Smoke Exposure: No Recent Foreign Travel: No Contact w/Someone Who Travel: No Recent Infectious Disease Expo: No Recent Hopitalizations: No Immunizations Up To Date Tetanus Booster (TDap): More than 5yrs Seasonal Allergies Seasonal Allergies: No Surgeries History of Surgeries: Yes (D&C; RIGHT KNEE SCOPE X 2; EGD; CARDIAC CATH 2012--N O INTERVENTION) Surgeries: Cardiac, Eye Surgery, Orthopedic Respiratory History of Respiratory Disorde: Yes Respiratory Disorders: Asthma Cardiovascular History of Cardiac Disorders: Yes (CARDIAC CATH 2012--NORMAL CORONARIES, NO INTERVENTION) Cardiac Disorders: High Cholesterol, Hypertension Neurological History of Neurological Disord: Yes Neurological Disorders: Headaches /Migraines 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 System Hx 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 Disorders: No Sexually Transmitted Disease: No Female 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 Disorders: Denies 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 Genitourinary History of Genitourinary Disor: Yes Genitourinary Disorders: Kidney Stones Gastrointestinal History of Gastrointestinal Di: Yes Gastrointestinal Disorders: Gastroesophageal Reflux, Hiatal Hernia, Irritable Bowel Musculoskeletal History of Musculoskeletal Dis: Yes Musculoskeletal Disorders: Fibromyalgia Endocrine History of Endocrine Disorders: Yes (NON COMPLAINT) Endocrine Disorders: Diabetes, Non-Insulin dep HEENT History of HEENT Disorders: Yes (EYE SURGERY) Loss of Vision: Denies Hearing Impairment: Denies Cancer History of Cancer: No Psychosocial History of Psychiatric Problem: Yes (EXTENSIVE PSYCH ISSUES) Behavioral Health Disorders: ADD/ADHD, Anxiety, PTSD, Depression Integumentary History of Skin or Integumenta: No Blood Transfusions History of Blood Disorders: No Adverse Reaction to a Blood Tr: No Family Medical History Significant Family History: CVA, Seizures Review of Systems-General Constitutional: chills; No diaphoresis; malaise, weakness EENTM: No blurred vision, No double vision, No mouth pain, No mouth swelling, No epistaxis Respiratory: No cough, No hemoptysis; short of breath Gastrointestinal: abdominal pain; No hematemesis; nausea, vomiting Genitourinary: No dysuria, No frequency, No hematuria Musculoskeletal: joint pain, joint swelling, muscle pain, muscle stiffness, muscle cramps Skin: No change in color, No change in hair/nails Psychiatric/Neurological: Anxiety, Depressed, Emotional Problems; Denies Seizure, Denies Tremors Other pt denies any hx of abnormal bleeding or bruising Physical Exam-General Problems Physical Exam Vital Signs Vital Signs - First Documented 11/21/19 22:52 Temp 36.2 Pulse 96 Resp 22 B/P (MAP) 143/104 (117) Pulse Ox 99 O2 Delivery Room Air Capillary Refill : Less Than 3 Seconds General Appearance: WD/WN, mild distress Eyes: Bilateral Eye PERRL, Bilateral Eye EOMI HEENT: pharynx normal; No scleral icterus (R), No scleral icterus (L) Neck: non-tender, supple Respiratory: chest non-tender, lungs clear, normal breath sounds, no respiratory distress, no accessory muscle use Cardiovascular: regular rate, rhythm, no murmur Gastrointestinal: normal bowel sounds, soft, no organomegaly, no pulsatile mass, tenderness (diffusely), hernia (umbilical hernia) Rectal: deferred Back: no CVA tenderness, no vertebral tenderness Extremities: no pedal edema, no calf tenderness, normal capillary refill Neurologic/Psychiatric: caregivers non medical II-XII nml as tested, no motor/sensory deficits, alert, normal mood/affect, oriented x 3 Skin: normal color, warm/dry Lymphatic: no adenopathy (neck, axilla or groin) Data Review Labs Laboratory Tests 11/21/19 22:56: Urine Color ORANGE, Urine Clarity SL CLOUDY, Urine pH 5.0, Urine Specific [place] 1.025H, Urine Protein 1+H, Urine Glucose (UA) 3+H, Urine Ketones TRACEH, Urine Nitrite NEGATIVE, Urine Bilirubin 1+H, Urine Urobilinogen 1.0, Urine Leukocyte Esterase NEGATIVE, Urine RBC (Auto) 1+H, Urine RBC 5-10H, Urine WBC NONE, Urine Squamous Epithelial Cells 5-10, Urine Crystals NONE, Urine Bacteria TRACE, Urine Casts NONE, Urine Mucus SMALLH, Urine Culture Indicated NO 11/21/19 23:54: White Blood Count 9.4, Red Blood Count 4.75, Hemoglobin 12.7, Hematocrit 39, Mean Corpuscular Volume 82, Mean Corpuscular Hemoglobin 27, Mean Corpuscular Hemoglobin Concent 33, Red Cell Distribution Width 17.3H, Platelet Count 305, Mean Platelet Volume 11.1H, Neutrophils (%) (Auto) 63, Lymphocytes (%) (Auto) 27, Monocytes (%) (Auto) 9, Eosinophils (%) (Auto) 0, Basophils (%) (Auto) 0, Neutrophils # (Auto) 5.9, Lymphocytes # (Auto) 2.6, Monocytes # (Auto) 0.8, Eosinophils # (Auto) 0.0, Basophils # (Auto) 0.0, Sodium Level 141, Potassium Level 4.0, Chloride Level 107, Carbon Dioxide Level 14L, Anion Gap 20H, Blood Urea Nitrogen 18, Creatinine 1.64H, Estimat Glomerular Filtration Rate 33, BUN/Creatinine Ratio 11, Glucose Level 142H, Calcium Level 10.3H, Corrected Calcium 10.1, Total Bilirubin 0.9, Aspartate Amino Transf (AST/SGOT) 26, Alanine Aminotransferase (ALT/SGPT) 13, Alkaline Phosphatase 45, C-Reactive Protein High Sensitivity 0.45, Total Protein 8.4H, Albumin 4.3, Lipase 28 Assessment/Plan Assessment/Plan Assessment/Plan Intractable N/V Abdominal pain Hx of GERD and Hiatal Hernia Umbilical Hernia Pt is being admitted to medicine; on IV fluids, pain control, anti-emetics and an US of abdomen is ordered for the am. She had a CT today which showed some retained stool in the colon and GB was mildly distended and folded over on itself. Her Creatnine changed a little between her 1st and 2nd visit to the ED today; so probably a little dehydrated. I will check her again after the US. She may need an EGD and Colonosocpy, but both can be done as an outpt as well. All questions answered to her satisfaction. Hernia is not causing her problems. KALEY EL DO Nov 22, 2019 01:38
[2019-11-22 01:55] VITALS: BP 137/90
--- NOTE | 2019-11-22 01:55 | NUR ---
NAE PRICE admitted to room 426-1, with an admitting diagnosis of ABDOMINAL PAIN,INTRACTABLE N/V, RENAL INSUFFICIENCY on 11/22/19 from [facility] via [facility] accompanied by KELLEY CESAR .NAE PRICE introduced to surroundings, call light, bed controls, phone, TV, temperature control, lights, meal times, smoking policy, visitor policy, side rail policy, bathrooms and showers. Patient Rights given to patient in the handbook. NAE PRICE verbalizes understanding that [facility] is not responsible for the loss or damage to any personal effects or valuables that are kept in the patients possession during their hospitalization. Patient and/or family were informed about the Rapid Response Team and its purpose.
[2019-11-22] MEDS ORDERED: LACTATED RINGERS 1,000 ML IV ONE (01:56)
[2019-11-22] MEDS ORDERED: ENOXAPARIN 40 MG/0.4 ML (LOVENOX) SYR SC SCH (02:15)
[2019-11-22] MEDS ORDERED: PROMETHAZINE INJ 25 MG/ML (PHENERGAN) AMP IV PRN (02:15)
[2019-11-22] MEDS: LACTATED RINGERS 1,000 ML IV SCH ×3 (02:27→18:34)
--- NOTE | 2019-11-22 02:38 | NUR ---
DR. PHILLIP NOTIFIED ABOUT PT HAVING ORDERS FOR TELEMETRY BUT THERE ARE NO TELEMETRIES AVAILABLE AT THIS TIME. NEW ORDERS RECEIVED TO D/C TELEMETRY.
[2019-11-22 05:40] VITALS: BP 118/75
[2019-11-22 06:16] LABS: BASOPHILS % (AUTO) 0 % (0-10); EOSINOPHILS % (AUTO) 0 % (0-10); HEMATOCRIT 35 % (35-52); HEMOGLOBIN 11.9 G/DL (11.5-16.0); LYMPHOCYTES # (AUTO) 2.3 X 10^3 (1.0-4.0); LYMPHOCYTES % (AUTO) 31 % (12-44); MEAN CORPUSCULAR HEMOGLOBIN 27 PG (25-34); MEAN CORPUSCULAR HGB CONC 34 G/DL (32-36); MEAN CORPUSCULAR VOLUME 81 FL (80-99); MEAN PLATELET VOLUME 10.9 FL (7.4-10.4); MONOCYTES # (AUTO) 0.7 X 10^3 (0.0-1.0); MONOCYTES % (AUTO) 9 % (0-12); NEUTROPHILS # (AUTO) 4.3 X 10^3 (1.8-7.8); NEUTROPHILS % (AUTO) 59 % (42-75); PLATELET COUNT 267 10^3/uL (130-400); RED CELL DISTRIBUTION WIDTH 17.3 % (10.0-14.5); WHITE BLOOD COUNT 7.2 10^3/uL (4.3-11.0)
[2019-11-22 06:39] LABS: ALBUMIN 4.1 GM/DL (3.2-4.5); CALCIUM 9.7 MG/DL (8.5-10.1); CREATININE SERUM 1.42 MG/DL (0.60-1.30); POTASSIUM 3.2 MMOL/L (3.6-5.0); TOTAL PROTEIN 7.2 GM/DL (6.4-8.2)
[2019-11-22] MEDS: ONDANSETRON 4 MG/2 ML (SDV) Z0FRAN IV PRN ×2 (06:41→17:16)
[2019-11-22] MEDS: fentaNYL INJECTION 100 MCG/2 ML AMP IV PRN ×5 (06:41→21:00)
--- NOTE | 2019-11-22 07:12 | History & Physical-Hospitalist ---
History of Present Illness HPI/Chief Complaint CC: Abdominal pain HPI: This is a 49yoWF who has a PMH of DM, managed at [facility], who presented with very vague abdominal pain with nausea and vomiting. Creatinine was 1.6, indicating the need for IV fluid but it appears she does have diabetic nephropathy and chronic renal insufficiency. She was swabbed for COVID-19, and that result is pending at this time. Ultrasound was ordered, general surgery was consulted and will evaluate any other workup she may need prior to discharge. She appears to be very anxious and asks multiple times if I know when the ultrasound will be completed or when other tests will be completed. Source: patient Exam Limitations: no limitations Date Seen 11/22/19 Time Seen by a Provider: 10:00 Attending Physician Aye Cheung DO [facility] Referring Physician Date of Admission Nov 22, 2019 at 00:54 Home Medications & Allergies Home Medications Reviewed patient Home Medication Reconciliation performed by pharmacy medication reconciliations painting technician and/or nursing. Patients Allergies have been reviewed. Allergies Allergies Coded Allergies lisinopril (Verified Allergy, Mild, COUGH, 03/05/17) montelukast (Verified Allergy, Unknown, 03/05/17) montelukast sodium (Verified Adverse Reaction, Unknown, 03/05/17) Uncoded Allergies METALS ( Allergy, Unknown, 07/12/14) Past Nylmbjd-Xitsga-Uxsqhw Hx Past Med/Social Hx: Reviewed Nursing Past Med/Soc Hx, Reviewed and Corrections made Patient Social History Marrital Status: single Employed/Student: unemployed Alcohol Use: Denies Use Recreational Drug Use: No Smoking Status: Never a Smoker 2nd Hand Smoke Exposure: No Recent Foreign Travel: No Contact w/other who traveled: No Recent Hopitalizations: No Recent Infectious Disease Expo: No Immunizations Up To Date Tetanus Booster (TDap): More than 5yrs Seasonal Allergies Seasonal Allergies: No Past Medical History Surgeries: Cardiac, Eye Surgery, Orthopedic Currently Using CPAP: No Currently Using BIPAP: No Cardiac: High Cholesterol, Hypertension Neurological: Headaches /Migraines 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: No Sexually Transmitted Disease: No Female 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 Disorders: Denies Menopausal Genitourinary: Bladder Infection, Kidney Stones, Renal Failure Gastrointestinal: Gastroesophageal Reflux, Hiatal Hernia, Irritable Bowel Musculoskeletal: Fibromyalgia Endocrine: Diabetes, Non-Insulin dep Loss of Vision: Denies Hearing Impairment: Denies Psychosocial: ADD/ADHD, Anxiety, PTSD, Depression History of Blood Disorders: No Adverse Reaction to Blood Hernandez: No Family History Patient reports no known family medical history. CVA, Seizures Review of Systems Constitutional: see HPI Gastrointestinal: abdominal pain, loss of appetite, nausea, vomiting Physical Exam Physical Exam Vital Signs Vital Signs - First Documented 11/21/19 22:52 Temp 36.2 Pulse 96 Resp 22 B/P (MAP) 143/104 (117) Pulse Ox 99 O2 Delivery Room Air Capillary Refill : Less Than 3 Seconds Height, Weight, BMI Height: 5'3.00" Weight: 240lbs. 2.0oz. [id number]; 42.92 BMI Method:Stated General Appearance: Anxious, Chronically ill, Mild Distress Eyes: Right Eye Normal Inspection, Right Eye PERRL HEENT: PERRL/EOMI, Normal ENT Inspection, Pharynx Normal, Moist Mucous Membranes Neck: Full Range of Motion, Normal Inspection, Non Tender Respiratory: Chest Non Tender, Lungs Clear, Normal Breath Sounds, No Accessory Muscle Use, No Respiratory Distress Cardiovascular: Regular Rate, Rhythm, No Edema, No Gallop, No JVD, No Murmur, Normal Peripheral Pulses Gastrointestinal: Normal Bowel Sounds, No Organomegaly, No Pulsatile Mass, Non Tender, Soft Back: Normal Inspection, No CVA Tenderness, No Vertebral Tenderness Extremity: Normal Capillary Refill, Normal Inspection, Normal Range of Motion, Non Tender, No Calf Tenderness, No Pedal Edema Neurologic/Psychiatric: Alert, Oriented x3, No Motor/Sensory Deficits, Normal Mood/Affect Skin: Normal Color, Warm/Dry Lymphatic: No Adenopathy Results Results/Procedures Labs Laboratory Tests 11/21/19 23:54 11/22/19 06:10 Patient resulted labs reviewed. Assessment/Plan Admission Diagnosis Assessment: Abdominal pain N/V ARF DM Proteinuria HTN HLP Anxiety Plan: Home meds Supportive care IVF COVID-[address] [facility] [address] Gill Admission Status: Inpatient Order (span 2 midnights) Reason for Inpatient Admission: ARF with abdominal pain Diagnosis/Problems Diagnosis/Problems (1) Generalized pain Status: Chronic (2) Volume depletion Status: Acute (3) Nausea and vomiting Status: Acute (4) Uncontrolled diabetes mellitus Status: Chronic (5) Non-compliance Status: Acute Clinical Quality Measures DVT/VTE Risk/Contraindication: Risk Factor Score Per Nursin RFS Level Per Nursing on Admit: 3=High AYE CHEUNG DO Nov 22, 2019 07:12
[2019-11-22 08:00] VITALS: BP 142/73
[2019-11-22] MEDS: FAMOTIDINE 20MG/2ML IV (PEPCID) IVP SCH ×2 (08:33→20:50)
[2019-11-22 12:00] VITALS: BP 143/90
[2019-11-22 15:19] VITALS: BP 129/78
[2019-11-22] MEDS ORDERED: PIOG45TA65 PO ×2 (16:02)
[2019-11-22] MEDS ORDERED: SPIR25TA5 PO ×2 (16:02)
[2019-11-22] MEDS ORDERED: DOCU100C37 PO ×2 (16:02)
[2019-11-22] MEDS ORDERED: INSU100I29 SQ ×2 (16:02)
[2019-11-22] MEDS ORDERED: PROP60TA17 PO ×2 (16:02)
[2019-11-22] MEDS ORDERED: CANA300T PO ×2 (16:02)
[2019-11-22] MEDS ORDERED: BUTA1TAB9 PO ×2 (16:02)
[2019-11-22] MEDS ORDERED: DULO30CA49 PO ×2 (16:10)
[2019-11-22] MEDS ORDERED: QUET200T29 PO ×2 (16:10)
--- NOTE | 2019-11-22 16:12 | NUR ---
SPOKE WITH THE PT (I CALLED HER CELL PHONE) WENT THRU THE EXT MED HISTORY AND GOT A MED LIST FROM [facility] TO COMPLETE THE MED REC PT DID NOT WANT TO SEND ME THE MED LIST ON HER PHONE, SHE "WANTED PATY (RN) TO TAKE CARE OF THAT". KISHA BENSON WAS ABLE TO SHOW ME THE PATIENTS PHONE AND I TOOK A PICTURE OF HER MED LIST. USING THAT I WAS ABLE TO COMPLETE THE MED REC DULOXETINE: PT IS NOW TAKING 30MG +60MG DAILY INVOKANA 300MG LAST FILLED 10-22-2019 #30 (THIS DOES NOT SHOW ON THE EXT MED HISTORY)
--- NOTE | 2019-11-22 16:45 | Diagnostic Imaging Report ---
EXAMINATION: US Abdomen limited. TECHNIQUE: Multiple real-time grayscale images were obtained over the right upper quadrant in various projections. REASON FOR EXAM: Nausea and vomiting. Abdominal pain. COMPARISON: CT abdomen and pelvis on 11/21/2019. FINDINGS: The liver is normal in size and shape. The liver echogenicity is within normal limits. There are no focal lesions. No intrahepatic biliary dilatation is present. The common bile duct is not dilated and measures 5 mm. The main portal vein is hepatopetal. No ascites is seen in the upper abdomen. There is no evidence of cholelithiasis, gallbladder wall thickening or pericholecystic fluid. Sonographic Smith's sign is negative. The visualized portions of the head of the pancreas are within normal limits. The body and tail of the pancreas are not well visualized due to overlying bowel gas. The visualized portions of the IVC and aorta appear normal. The right kidney measures approximately 10.8 cm in length and has a normal appearance. IMPRESSION: 1. No cholelithiasis or acute cholecystitis. No liver or gallbladder abnormality detected. Dictated by: Dictated on workstation # [id number]
[2019-11-22] MEDS: ENOXAPARIN 40 MG/0.4 ML (LOVENOX) SYR SC SCH (17:09)
--- NOTE | 2019-11-22 17:20 | NUR ---
THIS RN PULLED FENTANYL 100 MCG VIAL FOR Leonel BARRERA RN. WASTED THE REMAINDER (50 MCG)WITH Jacqueline LABOY RN. THIS MEDICATION WAS CHARTED BY Leonel BARRERA RN IN THE PATIENT ROOM SHE WAS A PUI AND THIS RN WASN'T ALLOWED TO ENTER HER ROOM THE ANAYA RN.
--- NOTE | 2019-11-22 17:49 | NUR ---
DR EL NOTIFIED FOR DIET
--- NOTE | 2019-11-22 18:36 | NUR ---
PT INFORMED RN SHE TAKES INSULIN AT HOME AND WOULD LIKE HER BS CHECKED. DR PHILLIP NOTIFIED.
[2019-11-22] MEDS ORDERED: DOCUSATE SODIUM 100 MG (COLACE) CAP PO PRN (19:00)
[2019-11-22] MEDS ORDERED: NON-FORMULARY MEDICATION 1 EA EA (Naproxen 500 MG) PO PRN (19:00)
[2019-11-22] MEDS ORDERED: ACET/BUTAL/CAFF (FIORICET) TAB PO PRN (19:00)
[2019-11-22] MEDS ORDERED: ACETAMINOPHEN 325 MG TABLET PO PRN (19:00)
[2019-11-22] MEDS ORDERED: ONDANSETRON 4 MG (ZOFRAN) ORAL DISSOLVE TAB PO PRN (19:00)
[2019-11-22 20:45] VITALS: BP 137/78
[2019-11-22] MEDS: PROPRANOLOL 20 MG (INDERAL) TABLET PO SCH (20:47)
[2019-11-22] MEDS: GABAPENTIN 600 MG (NEURONTIN) TAB PO SCH (20:50)
[2019-11-22] MEDS: inSUlin ASPART (NovoLOG) 1 UNIT/0.01 ML (CHARGE PER UNIT) SC SCH (20:51)
[2019-11-22] MEDS ORDERED: QUEtiapine 200 MG (SEROquel) TAB IMMEDIATE RELEASE PO SCH (21:00)
[2019-11-23 00:01] VITALS: BP 113/68
[2019-11-23] MEDS: LACTATED RINGERS 1,000 ML IV SCH ×2 (02:56→10:11)
[2019-11-23 05:40] VITALS: BP 122/64
[2019-11-23] MEDS: inSUlin ASPART (NovoLOG) 1 UNIT/0.01 ML (CHARGE PER UNIT) SC SCH ×2 (05:48→11:46)
[2019-11-23] MEDS: ENOXAPARIN 40 MG/0.4 ML (LOVENOX) SYR SC SCH (05:48)
[2019-11-23 06:45] LABS: BASOPHILS % (AUTO) 0 % (0-10); EOSINOPHILS # (AUTO) 0.2 10^3/uL (0.0-0.3); EOSINOPHILS % (AUTO) 4 % (0-10); HEMATOCRIT 33 % (35-52); HEMOGLOBIN 10.7 G/DL (11.5-16.0); LYMPHOCYTES % (AUTO) 39 % (12-44); MEAN CORPUSCULAR HEMOGLOBIN 27 PG (25-34); MEAN CORPUSCULAR HGB CONC 32 G/DL (32-36); MEAN CORPUSCULAR VOLUME 85 FL (80-99); MEAN PLATELET VOLUME 11.1 FL (7.4-10.4); MONOCYTES # (AUTO) 0.4 X 10^3 (0.0-1.0); MONOCYTES % (AUTO) 8 % (0-12); NEUTROPHILS # (AUTO) 2.4 X 10^3 (1.8-7.8); NEUTROPHILS % (AUTO) 48 % (42-75); PLATELET COUNT 204 10^3/uL (130-400); RED CELL DISTRIBUTION WIDTH 17.3 % (10.0-14.5); WHITE BLOOD COUNT 5.1 10^3/uL (4.3-11.0)
[2019-11-23] MEDS ORDERED: PIOGLITAZONE 30MG (ACTOS) TAB PO SCH (07:00)
[2019-11-23 07:05] LABS: ALBUMIN 3.6 GM/DL (3.2-4.5); POTASSIUM 3.3 MMOL/L (3.6-5.0)
[2019-11-23 07:06] LABS: CALCIUM 8.4 MG/DL (8.5-10.1)
[2019-11-23 07:08] LABS: TOTAL PROTEIN 6.3 GM/DL (6.4-8.2)
[2019-11-23 07:09] LABS: BILIRUBIN,TOTAL 0.6 MG/DL (0.1-1.0)
[2019-11-23 07:11] LABS: CREATININE SERUM 0.98 MG/DL (0.60-1.30)
[2019-11-23 07:53] VITALS: BP 108/57
[2019-11-23] MEDS: GABAPENTIN 600 MG (NEURONTIN) TAB PO SCH ×2 (08:52→13:14)
[2019-11-23] MEDS: PROPRANOLOL 20 MG (INDERAL) TABLET PO SCH (08:52)
[2019-11-23] MEDS: FAMOTIDINE 20MG/2ML IV (PEPCID) IVP SCH (08:52)
[2019-11-23] MEDS ORDERED: PANTOPRAZOLE 40 MG (PROTONIX) TAB PO SCH (09:00)
[2019-11-23] MEDS ORDERED: DULoxetine 30 MG (CYMBALTA) CAP PO SCH ×2 (09:00)
[2019-11-23] MEDS ORDERED: SPIRONOLACTONE 25 MG (ALDACTONE) TAB PO SCH (09:00)
[2019-11-23] MEDS ORDERED: NON-FORMULARY MEDICATION 1 EA EA (Canagliflozin (Invokana) 300 MG) PO SCH (09:00)
[2019-11-23] MEDS: fentaNYL INJECTION 100 MCG/2 ML AMP IV PRN (09:35)
--- NOTE | 2019-11-23 11:51 | Discharge Summary ---
Discharge Summary Hospital Course Was the Problem List Reviewed?: Yes Problems/Dx: (1) Generalized pain Status: Chronic (2) Volume depletion Status: Acute (3) Nausea and vomiting Status: Acute (4) Uncontrolled diabetes mellitus Status: Chronic (5) Non-compliance Status: Acute Hospital Course Date of Admission: Nov 22, 2019 at 00:54 Admission Diagnosis : Family Physician/Provider: Jonathan Gutierrez Date of Discharge: 11/23/19 Discharge Diagnosis:abdominal pain, dehydration, ARF, mental illness, DM Hospital Course: Hospital Course: Pt had an uneventful hospital course, abdominal pain was evaluated by Dr. Gill and ultrasound showed no acute abnormality. Covid-19 swab was still pending at time of DC and she will self isolate until that result is back but overall she will return back on her home medication. All labs remained stable and she was deemed stable for DC with no medication changes. Labs and Pending Lab Test: Laboratory Tests 11/22/19 20:46: Glucometer 112H 11/23/19 05:42: Glucometer 132H 11/23/19 06:40: White Blood Count 5.1, Red Blood Count 3.90L, Hemoglobin 10.7L, Hematocrit 33L, Mean Corpuscular Volume 85, Mean Corpuscular Hemoglobin 27, Mean Corpuscular Hemoglobin Concent 32, Red Cell Distribution Width 17.3H, Platelet Count 204, Mean Platelet Volume 11.1H, Neutrophils (%) (Auto) 48, Lymphocytes (%) (Auto) 39, Monocytes (%) (Auto) 8, Eosinophils (%) (Auto) 4, Basophils (%) (Auto) 0, Neutrophils # (Auto) 2.4, Lymphocytes # (Auto) 2.0, Monocytes # (Auto) 0.4, Eosinophils # (Auto) 0.2, Basophils # (Auto) 0.0, Sodium Level 140, Potassium Level 3.3L, Chloride Level 109H, Carbon Dioxide Level 22, Anion Gap 9, Blood Urea Nitrogen 9, Creatinine 0.98, Estimat Glomerular Filtration Rate 60, BUN/Creatinine Ratio 9, Glucose Level 124H, Calcium Level 8.4L, Corrected Calcium 8.7, Total Bilirubin 0.6, Aspartate Amino Transf (AST/SGOT) 15, Alanine Aminotransferase (ALT/SGPT) 9, Alkaline Phosphatase 35L, Total Protein 6.3L, A lbumin 3.6 11/23/19 11:19: Glucometer 134H Home Meds Active Ondansetron Odt (Ondansetron) 4 Mg Tab.rapdis 4 Mg PO Q6H PRN Reported Duloxetine HCl 30 Mg Capsule.dr 30 Mg PO DAILY TAKES 30MG +60MG DAILY TO EQUAL 90MG Quetiapine Fumarate 200 Mg Tablet 200 Mg PO HS Propranolol HCl 60 Mg Tablet 60 Mg PO BID Levemir Flextouch (Insulin Detemir) 100 Unit/1 Ml Insuln.pen 15 Unit SQ HS Invokana (Canagliflozin) 300 Mg Tablet 300 Mg PO DAILY Cvttic-Gktvcnfk-Fgen 50-325-40 (Butalb/Acetaminophen/Caffeine) 1 Each Tablet 1 Ea PO QID PRN Docusate Sodium 100 Mg Capsule 100 Mg PO DAILY PRN Spironolactone 25 Mg Tablet 25 Mg PO DAILY Pioglitazone HCl 45 Mg Tablet 45 Mg PO DAILY Pantoprazole Sodium 40 Mg Tablet.dr 40 Mg PO DAILY Acetaminophen 325 Mg Tablet 650 Mg PO Q6H PRN Gabapentin 600 Mg Tablet 600 Mg PO TID Naproxen 500 Mg Tablet 500 Mg PO DAILY PRN Duloxetine HCl 60 Mg Capsule.dr 60 Mg PO DAILY TAKES 30MG +60MG DAILY TO EQUAL 90MG Assessment/Pt Instructions [facility] 1 week Discharge Planning: <30 minutes discharge planning Discharge Instructions Discharge Diet: ADA Diet Discharge Physical Examination Vital Signs Vital Signs Date Time Temp Pulse Resp B/P (MAP) Pulse Ox O2 Delivery O2 Flow Rate FiO2 11/23/19 08:00 Room Air 11/23/19 07:53 36.5 80 20 108/57 (74) 96 General Appearance: No Apparent Distress, WD/WN, Chronically ill Allergies: Coded Allergies: lisinopril (Verified Allergy, Mild, COUGH, 03/05/17) montelukast (Verified Allergy, Unknown, 03/05/17) montelukast sodium (Verified Adverse Reaction, Unknown, 03/05/17) Uncoded Allergies: METALS (Allergy, Unknown, 07/12/14) Discharge Summary Date of Admission Nov 22, 2019 at 00:54 Date of Discharge Discharge Date: Nov 23, 2019 Admission Diagnosis Assessment: Abdominal pain N/V ARF DM Proteinuria HTN HLP Anxiety Plan: Home meds Supportive care IVF COVID-[address] [facility] [address] Gill Discharge Diagnosis (1) Generalized pain Status: Chronic (2) Volume depletion Status: Acute (3) Nausea and vomiting Status: Acute (4) Uncontrolled diabetes mellitus Status: Chronic (5) Non-compliance Status: Acute Clinical Quality Measures DVT/VTE Risk/Contraindication: Risk Factor Score Per Nursin RFS Level Per Nursing on Admit: 3=High KAMILLE PHILLIP DO Nov 23, 2019 11:51
[2019-11-23 14:53] VITALS: BP 108/57
[2019-11-23] MEDS ORDERED: FAMOTIDINE 20 MG (PEPCID) TABLET PO SCH (21:00)
== END 2019-11-23 15:20 | disposition home or self-care (01) | DRG 392 ==
LOC: EDUNIT# 22:27 → ER 22:28 → 4TH 11-22 00:54
PROVIDERS: ADMIT Internal Medicine; ATTEND Internal Medicine
DX: R10.9 Unspecified abdominal pain (principal); N17.9 Acute kidney failure, unspecified; R11.2 Nausea with vomiting, unspecified; E11.9 Type 2 diabetes mellitus without complications; I10 Essential (primary) hypertension; E78.5 Hyperlipidemia, unspecified; F41.9 Anxiety disorder, unspecified; K21.9 Gastro-esophageal reflux disease without esophagitis; R80.9 Proteinuria, unspecified; E86.9 Volume depletion, unspecified; Z91.19 Patient's noncompliance with other medical treatment and regimen
CPT/HCPCS: 36415; 76705; 80053; 81000; 82962; 83690; 85025; 86141

== ENCOUNTER 2019-12-22 07:14 | Outpatient (RCR) | payer MEDICAID ==
[~2019-12-22] VITALS: Ht 160 cm; Wt 111.8 kg
[~2019-12-22 07:14] MED LIST changes: +BUTA1TAB9 PO; +CANA300T PO; +DOCU100C37 PO; +DULO30CA49 PO; +PIOG45TA65 PO; +PROP60TA17 PO; +QUET200T29 PO; +SPIR25TA5 PO
== END 2019-12-22 10:27 | disposition home or self-care (01) ==
LOC: PREOP 07:14
PROVIDERS: ATTEND Surgery
DX: Z01.818 Encounter for other preprocedural examination (principal); Z01.812 Encounter for preprocedural laboratory examination; R11.2 Nausea with vomiting, unspecified; Z20.828 Contact with and (suspected) exposure to other viral communicable diseases
CPT/HCPCS: 87635

== ENCOUNTER 2019-12-26 09:36 | Day surgery (SDC) | payer MEDICAID ==
[~2019-12-26] VITALS: Ht 160 cm; Wt 111.8 kg
[2019-12-26] MEDS ORDERED: LACTATED RINGERS 1,000 ML IV STA (09:50)
[2019-12-26] MEDS ORDERED: HURRICAINE EXT TUBE (BENZOCAINE) XX PRN (10:00)
[2019-12-26 10:15] VITALS: BP 122/72
[2019-12-26 10:19] VITALS: BP 122/72
[2019-12-26] MEDS ORDERED: proPOfol 200 MG/20 ML (DIPRIVAN) VIAL IV ONE ×3 (10:30→10:51)
[2019-12-26] MEDS ORDERED: MIDAZOLAM 2 MG/2 ML (VERSED) VIAL ONE (10:31)
--- NOTE | 2019-12-26 10:36 | Progress Note-Pre Operative ---
Pre-Operative Progress Note H&P Reviewed The H&P was reviewed, patient examined and no changes noted. Time Seen by Provider: 10:34 Date H&P Reviewed: Dec 26, 2019 Time H&P Reviewed: 10:34 Pre-Operative Diagnosis: RUQ pain, KALEY Everett DO Dec 26, 2019 10:36
--- OUTSIDE RECORDS SUMMARY | 2019-12-26 10:49 | XMS REPORT ---
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 [facility] [address] [id number] [address] [place] [address], [place] [address] Jan, [facility] [address] [id number] [address] [place] [address], [place] [address] Dec, [facility] [address] [id number] [address] [place] [address], [place] [address] Dec, [facility] [address] [id number] [address] [place] [address], [place] [address] Dec, [facility] [address] [id number] [address] [place] [address], [place] [address] Dec, [facility] [address] [id number] [address] [place] [address], [place] [address] Nov, [facility] [address] [id number] [address] [place] [address], [place] [address] Nov, [facility] [address] [id number] [address] [place] [address], [place] [address] Nov, [facility] [address] [id number] [address] [place] [address], [place] [address] Nov, [facility] [address] [id number] [address] [place] [address], [place] [address] October, [facility] [address] [id number] [address] [place] [address], [place] [address] October, [facility] [address] [id number] [address] [place] [address], [place] [address] Sep, [facility] [address] [id number] [address] [place] [address], [place] [address] Sep, [facility] [address] [id number] [address] [place] [address], [place] [address] Sep, [facility] [address] [id number] [address] [place] [address], [place] [address] Sep, [facility] [address] [id number] [address] [place] [address], [place] [address] Sep, [facility] [address] [id number] [address] [place] [address], [place] [address] Sep, [facility] [address] [id number] [address] [place] [address], [place] [address] Sep, [facility] [address] [id number] [address] [place] [address], [place] [address] Sep, [facility] [address] [id number] [address] [place] [address], [place] [address] Sep, [facility] [address] [id number] [address] [place] [address], [place] [address] Sep, [facility] [address] [id number] [address] [place] [address], [place] [address] Jul, [facility] [address] [id number] [address] [place] [address], [place] [address] Jul, [facility] [address] [id number] [address] [place] [address], [place] [address] Jul, [facility] [address] [id number] [address] [place] [address], [place] [address] Jul, [facility] [address] [id number] [address] [place] [address], [place] [address] Jun, [facility] [address] [id number] [address] [place] [address], [place] [address] Jun, [facility] [address] [id number] [address] [place] [address], [place] [address] Jun, [facility] [address] [id number] [address] [place] [address], [place] [address] Jun, [facility] [address] [id number] [address] [place] [address], [place] [address] Jun, [facility] [address] [id number] [address] [place] [address], [place] [address] Jun, [facility] [address] [id number] [address] [place] [address], [place] [address] Apr, [facility] [address] [id number] [address] [place] [address], [place] [address] Apr, [facility] [address] [id number] [address] [place] [address], [place] [address] Apr, [facility] [address] [id number] [address] [place] [address], [place] [address] Apr, [facility] [address] [id number] [address] [place] [address], [place] [address] Apr, [facility] [address] [id number] [address] [place] [address], [place] [address] Apr, [facility] [address] [id number] [address] [place] [address], [place] [address] Apr, [facility] [address] [id number] [address] [place] [address], [place] [address] Apr, [facility] [address] [id number] [address] [place] [address], [place] [address] Mar, [facility] [address] [id number] [address] [place] [address], [place] [address] Mar, [facility] [address] [id number] [address] [place] [address], [place] [address] Feb, [facility] [address] [id number] [address] [place] [address], [place] [address] Feb, [facility] [address] [id number] [address] [place] [address], [place] [address] Dec, [facility] [address] [id number] [address] [place] [address], [place] [address] Dec, [facility] [address] [id number] [address] [place] [address], [place] [address] Dec, [facility] [address] [id number] [address] [place] [address], [place] [address] Dec, [facility] [address] [id number] [address] [place] [address], [place] [address] Dec, [facility] [address] [id number] [address] [place] [address], [place] [address] Dec, [facility] [address] [id number] [address] [place] [address], [place] [address] Dec, [facility] [address] [id number] [address] [place] [address], [place] [address] Nov, [facility] [address] [id number] [address] [place] [address], [place] [address] Nov, [facility] [address] [id number] [address] [place] [address], [place] [address] Nov, [facility] [address] [id number] [address] [place] [address], [place] [address] Nov, [facility] [address] [id number] [address] [place] [address], [place] [address] October, [facility] [address] [id number] [place] [address] October, [facility] [address] [id number] [address] [place] [address], [place] [address] October, [facility] [address] [id number] [address] [place] [address], [place] [address] October, [facility] [address] [id number] [address] [place] [address], [place] [address] Sep, [facility] [address] [id number] [address] [place] [address], [place] [address] Aug, [facility] [address] [id number] [address] [place] [address], [place] [address] Aug, [facility] [address] [id number] [address] [place] [address], [place] [address] Aug, [facility] [address] [id number] [address] [place] [address], [place] [address] Aug, [facility] [address] [id number] [address] [place] [address], [place] [address] Aug, [facility] [address] [id number] [address] [place] [address], [place] [address] Jul, [facility] [address] [id number] [address] [place] [address], [place] [address] Jul, [facility] [address] [id number] [address] [place] [address], [place] [address] Jul, [facility] [address] [id number] [address] [place] [address], [place] [address] Jul, [facility] [address] [id number] [address] [place] [address], [place] [address] Jul, [facility] [address] [id number] [address] [place] [address], [place] [address] Jul, [facility] [address] [id number] [address] [place] [address], [place] [address] Jul, [facility] [address] [id number] [address] [place] [address], [place] [address] 15 Jul, 2012 [facility] [address] [id number] [address] [place] [address], [place] [address] 14 Jul, 2012 [facility] [address] [id number] [address] [place] [address], [place] [address] 11 Jul, 2012 [facility] [address] [id number] [address] [place] [address], [place] [address] Jun, [facility] [address] [id number] [address] [place] [address], [place] [address] Jun, [facility] [address] [id number] [address] [place] [address], [place] [address] Jun, [facility] [address] [id number] [address] [place] [address], [place] [address] May, [facility] [address] [id number] [address] [place] [address], [place] [address] May, [facility] [address] [id number] [address] [place] [address], [place] [address] Apr, [facility] [address] [id number] [address] [place] [address], [place] [address] Apr, [facility] [address] [id number] [address] [place] [address], [place] [address] Apr, [facility] [address] [id number] [address] [place] [address], [place] [address] Apr, [facility] [address] [id number] [address] [place] [address], [place] [address] Apr, [facility] [address] [id number] [address] [place] [address], [place] [address] Apr, [facility] [address] [id number] [address] [place] [address], [place] [address] 17 Apr, 2012 [facility] [address] [id number] [address] [place] [address] Apr, [facility] [address] [id number] [address] [place] [address], [place] [address] Mar, [facility] [address] [id number] [address] [place] [address], [place] [address] Mar, [facility] [address] [id number] [address] [place] [address], [place] [address] Mar, [facility] [address] [id number] [address] [place] [address], [place] [address] Mar, [facility] [address] [id number] [address] [place] [address], [place] [address] Mar, [facility] [address] [id number] [address] [place] [address], [place] [address] Mar, [facility] [address] [id number] [address] [place] [address], [place] [address] Mar, [facility] [address] [id number] [address] [place] [address], [place] [address] Mar, [facility] [address] [id number] [address] [place] [address], [place] [address] Mar, [facility] [address] [id number] [address] [place] [address], [place] [address] Feb, [facility] [address] [id number] [address] [place] [address], [place] [address] Jan, [facility] [address] [id number] [address] [place] [address] Jan, [facility] [address] [id number] [address] [place] [address], [place] [address] Jan, [facility] [address] [id number] [address] [place] [address], [place] [address] Dec, [facility] [address] [id number] [address] [place] [address], [place] [address] Dec, [facility] [address] [id number] [address] [place] [address], [place] [address] Dec, [facility] [address] [id number] [address] [place] [address], [place] [address] Nov, [facility] [address] [id number] [address] [place] [address], [place] [address] October, [facility] [address] [id number] [address] [place] [address], [place] [address] October, [facility] [address] [id number] [address] [place] [address], [place] [address] October, [facility] [address] [id number] [address] [place] [address], [place] [address] October, [facility] [address] [id number] [address] [place] [address], [place] [address] October, [facility] [address] [id number] [address] [place] [address], [place] [address] Sep, [facility] [address] [id number] [address] [place] [address], [place] [address] Sep, [facility] [address] [id number] [address] [place] [address], [place] [address] Sep, [facility] [address] [id number] [address] [place] [address], [place] [address] Sep, [facility] [address] [id number] [address] [place] [address], [place] [address] Sep, [facility] [address] [id number] [address] [place] [address], [place] [address] Sep, [facility] [address] [id number] [address] [place] [address], [place] [address] Sep, [facility] [address] [id number] [address] [place] [address], [place] [address] Aug, [facility] [address] [id number] [address] [place] [address], [place] [address] Aug, [facility] [address] [id number] [facility] [place] [address] 21 Aug, 2011 [facility] [address] [id number] [address] [place] [address], [place] [address] 21 Aug, 2011 [facility] [address] [id number] [facility] [place] [address] 20 Aug, 2011 [facility] [address] [id number] [address] [place] [address], [place] [address] 19 Aug, 2011 [facility] [address] [id number] [address] [place] [address], [place] [address] 16 Aug, 2011 [facility] [address] [id number] [address] [place] [address], [place] [address] 15 Aug, 2011 [facility] [address] [id number] [address] [place] [address], [place] [address] 15 Aug, 2011 [facility] [address] [id number] [address] [place] [address], [place] [address] 14 Aug, 2011 [facility] [address] [id number] [address] [place] [address], [place] [address] 12 Aug, 2011 [facility] [address] [id number] [address] [place] [address], [place] [address] 08 Aug, 2011 [facility] [address] [id number] [address] [place] [address], [place] [address] 15 Jul, 2011 [facility] [address] [id number] [address] [place] [address], [place] [address] 15 Jul, 2011 [facility] [address] [id number] [address] [place] [address], [place] [address] 14 Jul, 2011 [facility] [address] [id number] [address] [place] [address], [place] [address] 06 Jul, 2011 [facility] [address] [id number] [address] [place] [address], [place] [address] 02 Jul, 2011 [facility] [address] [id number] [address] [place] [address], [place] [address] 18 Jun, 2011 [facility] [address] [id number] [address] [place] [address], [place] [address] Jun, [facility] [address] [id number] [address] [place] [address], [place] [address] Jun, [facility] [facility] [address] [id number] [address] [place] [address], [place] [address] 29 May, 2011 [facility] [address] [id number] [address] [place] [address], [place] [address] May, [facility] [address] [id number] [address] [place] [address], [place] [address] May, [facility] [address] [id number] [address] [place] [address], [place] [address] May, [facility] [address] [id number] [address] [place] [address], [place] [address] 14 May, 2011 [facility] [address] [id number] [address] [place] [address], [place] [address] 16 Apr, 2011 [facility] [address] [id number] [address] [place] [address], [place] [address] 16 Apr, 2011 [facility] [address] [id number] [address] [place] [address], [place] [address] 15 Apr, 2011 [facility] [address] [id number] [address] [place] [address], [place] [address] 14 Apr, 2011 [facility] [address] [id number] [address] [place] [address], [place] [address] 25 Mar, 2011 [facility] [address] [id number] [address] [place] [address], [place] [address] 24 Mar, 2011 [facility] [address] [id number] [address] [place] [address], [place] [address] 19 Mar, 2011 [facility] [address] [id number] [address] [place] [address], [place] [address] 19 Mar, 2011 [facility] [address] [id number] [address] [place] [phone] 17 Mar, 2011 [facility] [address] [id number] [address] [place] [phone] 17 Mar, 2011 [facility] [address] [id number] [address] [place] [phone] 16 Feb, 2011 [facility] [address] [id number] [address] [place] [phone] Nov, [facility] [address] [id number] [address] [place] [phone] Aug, [facility] [address] [id number] [address] [place] [phone] Apr, [facility] [address] [id number] [address] [place] [phone] 16 Mar, 2010 [facility] [address] [id number] [address] [place] [phone] Apr, [facility] [address] [id number] [address] [place] [phone] Apr, [facility] [address] [id number] [address] [place] [phone] Sep, [facility] [address] [id number] [address] [place] [phone] Mar, IMMUNIZATIONS No Known Immunizations SOCIAL HISTORY Never Assessed REASON FOR VISIT PLAN OF CARE VITAL SIGNS MEDICATIONS No [...] History heart cath WNL after false positive stre ss test EF 60% 11/2012 Surgical History arthroscopic knee surgery right knee x2 2006 Surgical History ENT surgery Surgical History dilatation and curettage Hospitalization History hypokalemia 08/2009 Hospitalization History pneumonia 2006 Hospitalization History [facility] SI 01/2016 Hospitalization History Sepsis secondary to pneumonia and UT I 03/1016 Hospitalization History ER for Kidney pain/Stones 06/19/18 Hospitalization History [facility] X4 days 9
--- OUTSIDE RECORDS SUMMARY | 2019-12-26 10:50 | XMS REPORT ---
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 [address] Jan, [facility] [address] [id number] [address] [place] [address], [place] [address] Jan, [facility] [address] [id number] [address] [place] [address], [place] [address] Dec, [facility] [address] [id number] [address] [place] [address], [place] [address] Dec, [facility] [address] [id number] [address] [place] [address], [place] [address] Dec, [facility] [address] [id number] [address] [place] [address], [place] [address] Dec, [facility] [address] [id number] [address] [place] [address], [place] [address] Nov, [facility] [address] [id number] [address] [place] [address], [place] [address] Nov, [facility] [address] [id number] [address] [place] [address], [place] [address] Nov, [facility] [address] [id number] [address] [place] [address], [place] [address] Nov, [facility] [address] [id number] [address] [place] [address], [place] [address] October, [facility] [address] [id number] [address] [place] [address], [place] [address] October, [facility] [address] [id number] [address] [place] [address], [place] [address] Sep, [facility] [address] [id number] [address] [place] [address], [place] [address] Sep, [facility] [address] [id number] [address] [place] [address], [place] [address] Sep, [facility] [address] [id number] [address] [place] [address], [place] [address] Sep, [facility] [address] [id number] [address] [place] [address], [place] [address] Sep, [facility] [address] [id number] [address] [place] [address], [place] [address] Sep, [facility] [address] [id number] [address] [place] [address], [place] [address] Sep, [facility] [address] [id number] [address] [place] [address], [place] [address] Sep, [facility] [address] [id number] [address] [place] [address], [place] [address] Sep, [facility] [address] [id number] [address] [place] [address], [place] [address] Sep, [facility] [address] [id number] [address] [place] [address], [place] [address] Jul, [facility] [address] [id number] [address] [place] [address], [place] [address] Jul, [facility] [address] [id number] [address] [place] [address], [place] [address] Jul, [facility] [address] [id number] [address] [place] [address], [place] [address] Jul, [facility] [address] [id number] [address] [place] [address], [place] [address] Jun, [facility] [address] [id number] [address] [place] [address], [place] [address] Jun, [facility] [address] [id number] [address] [place] [address], [place] [address] Jun, [facility] [address] [id number] [address] [place] [address], [place] [address] Jun, [facility] [address] [id number] [address] [place] [address], [place] [address] Jun, [facility] [address] [id number] [address] [place] [address], [place] [address] Jun, [facility] [address] [id number] [address] [place] [address], [place] [address] Apr, [facility] [address] [id number] [address] [place] [address], [place] [address] Apr, [facility] [address] [id number] [address] [place] [address], [place] [address] Apr, [facility] [address] [id number] [address] [place] [address], [place] [address] Apr, [facility] [address] [id number] [address] [place] [address], [place] [address] Apr, [facility] [address] [id number] [address] [place] [address], [place] [address] Apr, [facility] [address] [id number] [address] [place] [address], [place] [address] Apr, [facility] [address] [id number] [address] [place] [address], [place] [address] Apr, [facility] [address] [id number] [address] [place] [address], [place] [address] Mar, [facility] [address] [id number] [address] [place] [address], [place] [address] Mar, [facility] [address] [id number] [address] [place] [address], [place] [address] Feb, [facility] [address] [id number] [address] [place] [address], [place] [address] Feb, [facility] [address] [id number] [address] [place] [address], [place] [address] Dec, [facility] [address] [id number] [address] [place] [address], [place] [address] Dec, [facility] [address] [id number] [address] [place] [address], [place] [address] Dec, [facility] [address] [id number] [address] [place] [address], [place] [address] Dec, [facility] [address] [id number] [address] [place] [address], [place] [address] Dec, [facility] [address] [id number] [address] [place] [address], [place] [address] Dec, [facility] [address] [id number] [address] [place] [address], [place] [address] Dec, [facility] [address] [id number] [address] [place] [address], [place] [address] Nov, [facility] [address] [id number] [address] [place] [address], [place] [address] Nov, [facility] [address] [id number] [address] [place] [address], [place] [address] Nov, [facility] [address] [id number] [address] [place] [address], [place] [address] Nov, [facility] [address] [id number] [address] [place] [address], [place] [address] October, [facility] [address] [id number] [address] [address] October, [facility] [address] [id number] [address] [place] [address], [place] [address] October, [facility] [address] [id number] [address] [place] [address], [place] [address] October, [facility] [address] [id number] [address] [place] [address], [place] [address] Sep, [facility] [address] [id number] [address] [place] [address], [place] [address] Aug, [facility] [address] [id number] [address] [place] [address], [place] [address] Aug, [facility] [address] [id number] [address] [place] [address], [place] [address] Aug, [facility] [address] [id number] [address] [place] [address], [place] [address] Aug, [facility] [address] [id number] [address] [place] [address], [place] [address] Aug, [facility] [address] [id number] [address] [place] [address], [place] [address] Jul, [facility] [address] [id number] [address] [place] [address], [place] [address] Jul, [facility] [address] [id number] [address] [place] [address], [place] [address] Jul, [facility] [address] [id number] [address] [place] [address], [place] [address] Jul, [facility] [address] [id number] [address] [place] [address], [place] [address] Jul, [facility] [address] [id number] [address] [place] [address], [place] [address] Jul, [facility] [address] [id number] [address] [place] [address], [place] [address] Jul, [facility] [address] [id number] [address] [place] [address], [place] [address] 15 Jul, 2012 [facility] [address] [id number] [address] [place] [address], [place] [address] 14 Jul, 2012 [facility] [address] [id number] [address] [place] [address], [place] [address] 11 Jul, 2012 [facility] [address] [id number] [address] [place] [address], [place] [address] Jun, [facility] [address] [id number] [address] [place] [address], [place] [address] Jun, [facility] [address] [id number] [address] [place] [address], [place] [address] Jun, [facility] [address] [id number] [address] [place] [address], [place] [address] May, [facility] [address] [id number] [address] [place] [address], [place] [address] May, [facility] [address] [id number] [address] [place] [address], [place] [address] Apr, [facility] [address] [id number] [address] [place] [address], [place] [address] Apr, [facility] [address] [id number] [address] [place] [address], [place] [address] Apr, [facility] [address] [id number] [address] [place] [address], [place] [address] Apr, [facility] [address] [id number] [address] [place] [address], [place] [address] Apr, [facility] [address] [id number] [address] [place] [address], [place] [address] Apr, [facility] [address] [id number] [address] [place] [address], [place] [address] 17 Apr, 2012 [facility] [address] [id number] [address] [place] [id number] Apr, [facility] [address] [id number] [address] [place] [address], [place] [address] Mar, [facility] [address] [id number] [address] [place] [address], [place] [address] Mar, [facility] [address] [id number] [address] [place] [address], [place] [address] Mar, [facility] [address] [id number] [address] [place] [address], [place] [address] Mar, [facility] [address] [id number] [address] [place] [address], [place] [address] Mar, [facility] [address] [id number] [address] [place] [address], [place] [address] Mar, [facility] [address] [id number] [address] [place] [address], [place] [address] Mar, [facility] [address] [id number] [address] [place] [address], [place] [address] Mar, [facility] [address] [id number] [address] [place] [address], [place] [address] Mar, [facility] [address] [id number] [address] [place] [address], [place] [address] Feb, [facility] [address] [id number] [address] [place] [address], [place] [address] Jan, [facility] [address] [id number] [address] [place] [address] Jan, [facility] [address] [id number] [address] [place] [address], [place] [address] Jan, [facility] [address] [id number] [address] [place] [address], [place] [address] Dec, [facility] [address] [id number] [address] [place] [address], [place] [address] Dec, [facility] [address] [id number] [address] [place] [address], [place] [address] Dec, [facility] [address] [id number] [address] [place] [address], [place] [address] Nov, [facility] [address] [id number] [address] [place] [address], [place] [address] October, [facility] [address] [id number] [address] [place] [address], [place] [address] October, [facility] [address] [id number] [address] [place] [address], [place] [address] October, [facility] [address] [id number] [address] [place] [address], [place] [address] October, [facility] [address] [id number] [address] [place] [address], [place] [address] October, [facility] [address] [id number] [address] [place] [address], [place] [address] Sep, [facility] [address] [id number] [address] [place] [address], [place] [address] Sep, [facility] [address] [id number] [address] [place] [address], [place] [address] Sep, [facility] [address] [id number] [address] [place] [address], [place] [address] Sep, [facility] [address] [id number] [address] [place] [address], [place] [address] Sep, [facility] [address] [id number] [address] [place] [address], [place] [address] Sep, [facility] [address] [id number] [address] [place] [address], [place] [address] Sep, [facility] [address] [id number] [address] [place] [address], [place] [address] Aug, [facility] [address] [id number] 24 [place] [address], [place] [address] Aug, [facility] [address] [id number] [facility] [place] [address] 21 Aug, 2011 [facility] [address] [id number] [address] [place] [address], [place] [address] 21 Aug, 2011 [facility] [address] [id number] [facility] [place] [address] 20 Aug, 2011 [facility] [address] [id number] [address] [place] [address], [place] [address] 19 Aug, 2011 [facility] [address] [id number] [address] [place] [address], [place] [address] 16 Aug, 2011 [facility] [address] [id number] [address] [place] [address], [place] [address] 15 Aug, 2011 [facility] [address] [id number] [address] [place] [address], [place] [address] 15 Aug, 2011 [facility] [address] [id number] [address] [place] [address], [place] [address] 14 Aug, 2011 [facility] [address] [id number] [address] [place] [address], [place] [address] 12 Aug, 2011 [facility] [address] [id number] [address] [place] [address], [place] [address] 08 Aug, 2011 [facility] [address] [id number] [address] [place] [address], [place] [address] 15 Jul, 2011 [facility] [address] [id number] [address] [place] [address], [place] [address] 15 Jul, 2011 [facility] [address] [id number] [address] [place] [address], [place] [address] 14 Jul, 2011 [facility] [address] [id number] [address] [place] [address], [place] [address] 06 Jul, 2011 [facility] [address] [id number] [address] [place] [address], [place] [address] 02 Jul, 2011 [facility] [address] [id number] [address] [place] [address], [place] [address] 18 Jun, 2011 [facility] [address] [id number] [address] [place] [address], [place] [address] Jun, [facility] [address] [id number] [address] [place] [address], [place] [address] Jun, [facility] [address] [id number] [address] [place] [address], [place] [address] 29 May, 2011 [facility] [address] [id number] [address] [place] [address], [place] [address] May, [facility] [address] [id number] [address] [place] [address], [place] [address] May, [facility] [address] [id number] [address] [place] [address], [place] [address] May, [facility] [address] [id number] [address] [place] [address], [place] [address] [address], [address] [facility] [address] [id number] [address] [place] [address], [place] [address] 16 Apr, 2011 [facility] [address] [id number] [address] [place] [address], [place] [address] [address], [address] [facility] [address] [id number] [address] [place] [address], [place] [address] 15 Apr, 2011 [facility] [address] [id number] [address] [place] [address], [place] [address] [address], [address] [facility] [address] [id number] [address] [place] [address], [place] [address] 25 Mar, 2011 [facility] [address] [id number] [address] [place] [address], [place] [address] 24 Mar, 2011 [facility] [address] [id number] [address] [place] [address], [place] [address] [address], [address] [facility] [address] [id number] [address] [place] [address], [place] [address] 19 Mar, 2011 [facility] [address] [id number] [address] [place] [id number] 17 Mar, 2011 [facility] [address] [id number] [address] [place] [id number] 17 Mar, 2011 [facility] [address] [id number] [address] [place] [id number] 16 Feb, 2011 [facility] [address] [id number] [address] [place] [id number] Nov, [facility] [address] [id number] [address] [place] [id number] 17 Aug, 2010 [facility] [address] [id number] [address] [place] [id number] Apr, [facility] [address] [id number] [address] [place] [id number] 16 Mar, 2010 [facility] [address] [id number] [address] [place] [id number] Apr, [facility] [address] [id number] [address] [place] [id number] Apr, [facility] [address] [id number] [address] [place] [id number] 15 Sep, 2008 [facility] [address] [id number] [address] [place] [id number] Mar, IMMUNIZATIONS No Known Immunizations SOCIAL HISTORY Never Assessed REASON FOR VISIT PLAN OF CARE VITAL SIGNS Height 63 in 2013-04-05 Weight 209 lbs 2013-04-05 Temperature 98 degrees Fahrenheit 2013-04-05 Heart Rate 74 bpm 2013-04-05 Respiratory Rate 14 2013-04-05 Blood pressure systolic 112 mmHg 2013-04-05 Blood pressure diastolic 70 mmHg 2013-04-05 MEDICATIONS No Known Medications RESULTS No Results PROCEDURES Procedure Date Ordered Result Body Site LIPID PANEL Apr 05, 2013 COMPREHEN METABOLIC PANEL Apr 05, 2013 VENIPUNCT, ROUTINE* Apr 05, 2013 INSTRUCTIONS MEDICATIONS ADMINISTERED No Known Medications MEDICAL [...] ER for Kidney pain/Stones 06/19/18 Hospitalization History [facility] X4 days 9
--- OUTSIDE RECORDS SUMMARY | 2019-12-26 10:50 | XMS REPORT ---
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 [place] [address], [place] [address] Sep, [facility] [address] [id number] [address] [place] [address], [place] [address] Sep, [facility] [address] [id number] [address] [place] [address], [place] [address] Sep, [facility] [address] [id number] [address] [place] [address], [place] [address] Sep, [facility] [address] [id number] [address] [place] [address], [place] [address] Sep, [facility] [address] [id number] [address] [place] [address], [place] [address] Sep, [facility] [address] [id number] [address] [place] [address], [place] [address] Sep, [facility] [address] [id number] [address] [place] [address], [place] [address] Jul, [facility] [address] [id number] [address] [place] [address], [place] [address] Jul, [facility] [address] [id number] [address] [place] [address], [place] [address] Jul, [facility] [address] [id number] [address] [place] [address], [place] [address] Jul, [facility] [address] [id number] [address] [place] [address], [place] [address] Jun, [facility] [address] [id number] [address] [place] [address], [place] [address] Jun, [facility] [address] [id number] [address] [place] [address], [place] [address] Jun, [facility] [address] [id number] [address] [place] [address], [place] [address] Jun, [facility] [address] [id number] [address] [place] [address], [place] [address] Jun, [facility] [address] [id number] [address] [place] [address], [place] [address] Jun, [facility] [address] [id number] [address] [place] [address], [place] [address] Apr, [facility] [address] [id number] [address] [place] [address], [place] [address] Apr, [facility] [address] [id number] [address] [place] [address], [place] [address] Apr, [facility] [address] [id number] [address] [place] [address], [place] [address] Apr, [facility] [address] [id number] [address] [place] [address], [place] [address] Apr, [facility] [address] [id number] [address] [place] [address], [place] [address] Apr, [facility] [address] [id number] [address] [place] [address], [place] [address] Apr, [facility] [address] [id number] [address] [place] [address], [place] [address] Apr, [facility] [address] [id number] [address] [place] [address], [place] [address] Mar, [facility] [address] [id number] [address] [place] [address], [place] [address] Mar, [facility] [address] [id number] [facility] [address] Feb, [facility] [address] [id number] [address] [place] [address], [place] [address] Feb, [facility] [address] [id number] [address] [place] [address], [place] [address] Dec, [facility] [address] [id number] [address] [place] [address], [place] [address] Dec, [facility] [address] [id number] [address] [place] [address], [place] [address] Dec, [facility] [address] [id number] [address] [place] [address], [place] [address] Dec, [facility] [address] [id number] [address] [place] [address], [place] [address] Dec, [facility] [address] [id number] [address] [place] [address], [place] [address] Dec, [facility] [address] [id number] [address] [place] [address], [place] [address] Dec, [facility] [address] [id number] [address] [place] [address], [place] [address] Nov, [facility] [address] [id number] [address] [place] [address], [place] [address] Nov, [facility] [address] [id number] [address] [place] [address], [place] [address] Nov, [facility] [address] [id number] [address] [place] [address], [place] [address] Nov, [facility] [address] [id number] [address] [place] [address], [place] [address] October, [facility] [address] [id number] [address] [place] [address], [place] [address] October, [facility] [address] [id number] [address] [place] [address], [place] [address] October, [facility] [address] [id number] [address] [place] [address], [place] [address] October, [facility] [address] [id number] [address] [place] [address], [place] [address] Sep, [facility] [address] [id number] [address] [place] [address], [place] [address] Aug, [facility] [address] [id number] [address] [place] [address], [place] [address] Aug, [facility] [address] [id number] [address] [place] [address], [place] [address] Aug, [facility] [address] [id number] [address] [place] [address], [place] [address] Aug, [facility] [address] [id number] [address] [place] [address], [place] [address] Aug, [facility] [address] [id number] [address] [place] [address], [place] [address] Jul, [facility] [address] [id number] [address] [place] [address], [place] [address] Jul, [facility] [address] [id number] [address] [place] [address], [place] [address] 26 Jul, 2012 [facility] [address] [id number] [address] [place] [address], [place] [address] Jul, [facility] [address] [id number] [address] [place] [address], [place] [address] Jul, [facility] [address] [id number] [address] [place] [address], [place] [address] 23 Jul, 2012 [facility] [address] [id number] [address] [place] [address], [place] [address] 20 Jul, 2012 [facility] [address] [id number] [address] [place] [address], [place] [address] 15 Jul, 2012 [facility] [address] [id number] [address] [place] [address], [place] [address] 14 Jul, 2012 [facility] [address] [id number] [address] [place] [address], [place] [address] Jul, [facility] [address] [id number] [address] [place] [address], [place] [address] Jun, [facility] [address] [id number] [address] [place] [address], [place] [address] Jun, [facility] [address] [id number] [address] [place] [address], [place] [address] Jun, [facility] [address] [id number] [address] [place] [address], [place] [address] May, [facility] [address] [id number] [address] [place] [address], [place] [address] May, [facility] [address] [id number] [address] [place] [address], [place] [address] Apr, [facility] [address] [id number] [address] [place] [address], [place] [address] Apr, [facility] [address] [id number] [address] [place] [address], [place] [address] Apr, [facility] [address] [id number] [address] [place] [address], [place] [address] Apr, [facility] [address] [id number] [address] [place] [address], [place] [address] Apr, [facility] [address] [id number] [address] [place] [address], [place] [address] Apr, [facility] [address] [id number] [address] [place] [address], [place] [address] Apr, [facility] [address] [id number] [address] [place] [address], [place] [address] Apr, [facility] [address] [id number] [address] [place] [address], [place] [address] Mar, [facility] [address] [id number] [address] [place] [address], [place] [address] Mar, 2011 [facility] [address] [id number] [address] [place] [address], [place] [address] Mar, [facility] [address] [id number] [address] [place] [address], [place] [address] Mar, [facility] [address] [id number] [address] [place] [address], [place] [address] Mar, [facility] [address] [id number] [address] [place] [address], [place] [address] Mar, [facility] [address] [id number] [address] [place] [address], [place] [address] Mar, [facility] [address] [id number] [address] [place] [address], [place] [address] Mar, [facility] [address] [id number] [address] [place] [address], [place] [address] Mar, [facility] [address] [id number] [address] [place] [address], [place] [address] Feb, [facility] [address] [id number] [address] [place] [address], [place] [address] Jan, [facility] [address] [id number] [address] [place] [address], [place] [address] Jan, [facility] [address] [id number] [address] [place] [address], [place] [address] Jan, [facility] [address] [id number] [address] [place] [address], [place] [address] Dec, [facility] [address] [id number] [address] [place] [address], [place] [address] Dec, [facility] [address] [id number] [address] [place] [address], [place] [address] Dec, [facility] [address] [id number] [address] [place] [address], [place] [address] Nov, [facility] [address] [id number] [address] [place] [address], [place] [address] October, [facility] [address] [id number] [address] [place] [address], [place] [address] October, [facility] [address] [id number] [address] [place] [address], [place] [address] October, [facility] [address] [id number] [address] [place] [address], [place] [address] October, [facility] [address] [id number] [address] [place] [address], [place] [address] October, [facility] [address] [id number] [address] [place] [address], [place] [address] Sep, [facility] [address] [id number] [address] [place] [address], [place] [address] Sep, [facility] [address] [id number] [address] [place] [address], [place] [address] Sep, [facility] [address] [id number] [address] [place] [address], [place] [address] Sep, [facility] [address] [id number] [address] [place] [address], [place] [address] Sep, [facility] [address] [id number] [address] [place] [address], [place] [address] Sep, [facility] [address] [id number] [address] [place] [address], [place] [address] Sep, [facility] [address] [id number] [address] [place] [address], [place] [address] Aug, [facility] [address] [id number] [address] [place] [address], [place] [address] Aug, [facility] [address] [id number] [address] [place] [address], [place] [address] 21 Aug, 2011 [facility] [address] [id number] [address] [place] [address], [place] [address] 21 Aug, 2011 [facility] [address] [id number] [address] [place] [address], [place] [address] 20 Aug, 2011 [facility] [address] [id number] [address] [place] [address], [place] [address] 19 Aug, 2011 [facility] [address] [id number] [address] [place] [address], [place] [address] 16 Aug, 2011 [facility] [address] [id number] [address] [place] [address], [place] [address] 15 Aug, 2011 [facility] [address] [id number] [address] [place] [address], [place] [address] 15 Aug, 2011 [facility] [address] [id number] [address] [place] [address], [place] [address] 14 Aug, 2011 [facility] [address] [id number] [address] [place] [address], [place] [address] 12 Aug, 2011 [facility] [address] [id number] [address] [place] [address], [place] [address] 08 Aug, 2011 [facility] [address] [id number] [address] [place] [address], [place] [address] 15 Jul, 2011 [facility] [address] [id number] [address] [place] [address], [place] [address] 15 Jul, 2011 [facility] [address] [id number] [address] [place] [address], [place] [address] 14 Jul, 2011 [facility] [address] [id number] [address] [place] [address], [place] [address] 06 Jul, 2011 [facility] [address] [id number] [address] [place] [address], [place] [address] 02 Jul, 2011 [facility] [address] [id number] [address] [place] [address], [place] [address] 18 Jun, 2011 [facility] [address] [id number] [address] [place] [address], [place] [address] Jun, [facility] [address] [id number] [address] [place] [address], [place] [address] Jun, [facility] [address] [id number] [address] [place] [address], [place] [address] May, [facility] [address] [id number] [address] [place] [address], [place] [address] May, [facility] [address] [id number] [address] [place] [address], [place] [address] May, [facility] [address] [id number] [address] [place] [address], [place] [address] May, [facility] [address] [id number] [address] [place] [address], [place] [address] May, [facility] [address] [id number] [address] [place] [address], [place] [address] 16 Apr, 2011 [facility] [address] [id number] [address] [place] [address], [place] [address] 16 Apr, 2011 [facility] [address] [id number] [address] [place] [address], [place] [address] 15 Apr, 2011 [facility] [address] [id number] [address] [place] [address], [place] [address] 14 Apr, 2011 [facility] [address] [id number] [address] [place] [address], [place] [address] 25 Mar, 2011 [facility] [address] [id number] [address] [place] [address], [place] [address] Mar, [facility] [address] [id number] [address] [place] [address], [place] [address] Mar, [facility] [address] [id number] [address] [place] [address], [place] [address] Mar, [facility] [address] [id number] [address] [place] [address], [place] [address] 17 Mar, 2011 [facility] [address] [id number] [address] [place] [id number] 17 Mar, 2011 [facility] [address] [id number] [address] [place] [id number] 16 Feb, 2011 [facility] [address] [id number] [address] [place] [id number] Nov, [facility] [address] [id number] [address] [place] [id number] Aug, [facility] [address] [id number] [address] [place] [id number] Apr, [facility] [address] [id number] [address] [place] [id number] Mar, [facility] [address] [id number] [address] [place] [id number] Apr, [facility] [address] [id number] [address] [place] [id number] Apr, [facility] [address] [id number] [address] [place] [phone] Sep, [facility] [address] [id number] [address] [place] [id number] Mar, IMMUNIZATIONS No Known Immunizations SOCIAL HISTORY Never Assessed REASON FOR VISIT PLAN OF CARE VITAL SIGNS Height 63 in 2013-03-04 Weight 212.8 lbs 2013-03-04 Temperature 97 degrees Fahrenheit 2013-03-04 Heart Rate 80 bpm 2013-03-04 Respiratory Rate 16 2013-03-04 Blood pressure systolic 102 mmHg 2013-03-04 Blood pressure diastolic 64 mmHg 2013-03-04 MEDICATIONS Unknown Medications RESULTS No Results PROCEDURES [...] ER for Kidney pain/Stones 06/19/18 Hospitalization History [facility] X4 days 9
--- OUTSIDE RECORDS SUMMARY | 2019-12-26 10:51 | XMS REPORT ---
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 [place] [address], [place] [address] Nov, [facility] [address] [id number] [address] [place] [address], [place] [address] Nov, [facility] [address] [id number] [address] [place] [address], [place] [address] Nov, [facility] [address] [id number] [address] [place] [address], [place] [address] October, [facility] [address] [id number] [address] [place] [address], [place] [address] October, [facility] [address] [id number] [address] [place] [address], [place] [address] Sep, [facility] [address] [id number] [address] [place] [address], [place] [address] Sep, [facility] [address] [id number] [address] [place] [address], [place] [address] Sep, [facility] [address] [id number] [address] [place] [address], [place] [address] Sep, [facility] [address] [id number] [address] [place] [address], [place] [address] Sep, [facility] [address] [id number] [address] [place] [address], [place] [address] Sep, [facility] [address] [id number] [address] [place] [address], [place] [address] Sep, [facility] [address] [id number] [address] [place] [address], [place] [address] Sep, [facility] [address] [id number] [address] [place] [address], [place] [address] Sep, [facility] [address] [id number] [address] [place] [address], [place] [address] Sep, [facility] [address] [id number] [address] [place] [address], [place] [address] Jul, [facility] [address] [id number] [address] [place] [address], [place] [address] Jul, [facility] [address] [id number] [address] [place] [address], [place] [address] Jul, [facility] [address] [id number] [address] [place] [address], [place] [address] Jul, [facility] [address] [id number] [address] [place] [address], [place] [address] Jun, [facility] [address] [id number] [address] [place] [address], [place] [address] Jun, [facility] [address] [id number] [address] [place] [address], [place] [address] Jun, [facility] [address] [id number] [address] [place] [address], [place] [address] Jun, [facility] [address] [id number] [address] [place] [address], [place] [address] Jun, [facility] [address] [id number] [address] [place] [address], [place] [address] Jun, [facility] [address] [id number] [address] [place] [address], [place] [address] Apr, [facility] [address] [id number] [address] [place] [address], [place] [address] Apr, [facility] [address] [id number] [address] [place] [address], [place] [address] Apr, [facility] [address] [id number] [address] [place] [address], [place] [address] Apr, [facility] [address] [id number] [address] [place] [address], [place] [address] Apr, [facility] [address] [id number] [address] [place] [address], [place] [address] Apr, [facility] [address] [id number] [address] [place] [address], [place] [address] Apr, [facility] [address] [id number] [address] [place] [address], [place] [address] Apr, [facility] [address] [id number] [address] [place] [address], [place] [address] Mar, [facility] [address] [id number] [address] [place] [address], [place] [address] Mar, [facility] [address] [id number] [address] [place] [address], [place] [address] Feb, [facility] [address] [id number] [address] [place] [address], [place] [address] Feb, [facility] [address] [id number] [address] [place] [address], [place] [address] Dec, [facility] [address] [id number] [address] [place] [address], [place] [address] Dec, [facility] [address] [id number] [address] [place] [address], [place] [address] Dec, [facility] [address] [id number] [address] [place] [address], [place] [address] Dec, [facility] [address] [id number] [address] [place] [address], [place] [address] Dec, [facility] [address] [id number] [address] [place] [address], [place] [address] Dec, [facility] [address] [id number] [address] [place] [address], [place] [address] Dec, [facility] [address] [id number] [address] [place] [address], [place] [address] Nov, [facility] [address] [id number] [address] [place] [address], [place] [address] Nov, [facility] [address] [id number] [address] [place] [address], [place] [address] Nov, [facility] [address] [id number] [address] [place] [address], [place] [address] Nov, [facility] [address] [id number] [address] [place] [address], [place] [address] October, [facility] [address] [id number] [address] [place] [address], [place] [address] October, [facility] [address] [id number] [address] [place] [address], [place] [address] October, [facility] [address] [id number] [address] [place] [address], [place] [address] October, [facility] [address] [id number] [address] [place] [address], [place] [address] Sep, [facility] [address] [id number] [address] [place] [address], [place] [address] Aug, [facility] [address] [id number] [address] [place] [address], [place] [address] Aug, [facility] [address] [id number] [address] [place] [address], [place] [address] Aug, [facility] [address] [id number] [address] [place] [address], [place] [address] Aug, [facility] [address] [id number] [address] [place] [address], [place] [address] Aug, [facility] [address] [id number] [address] [place] [address], [place] [address] Jul, [facility] [address] [id number] [address] [place] [address], [place] [address] Jul, [facility] [address] [id number] [address] [place] [address], [place] [address] Jul, [facility] [address] [id number] [address] [place] [address], [place] [address] Jul, [facility] [address] [id number] [address] [place] [address], [place] [address] Jul, [facility] [address] [id number] [address] [place] [address], [place] [address] 23 Jul, 2012 [facility] [address] [id number] [address] [place] [address], [place] [address] 20 Jul, 2012 [facility] [address] [id number] [address] [place] [address], [place] [address] 15 Jul, 2012 [facility] [address] [id number] [address] [place] [address], [place] [address] 14 Jul, 2012 [facility] [address] [id number] [address] [place] [address], [place] [address] Jul, [facility] [address] [id number] [address] [place] [address], [place] [address] Jun, [facility] [address] [id number] [address] [place] [address], [place] [address] Jun, [facility] [address] [id number] [address] [place] [address], [place] [address] Jun, [facility] [address] [id number] [address] [place] [address], [place] [address] May, [facility] [address] [id number] [address] [place] [address], [place] [address] May, [facility] [address] [id number] [address] [place] [address], [place] [address] Apr, [facility] [address] [id number] [address] [place] [address], [place] [address] Apr, [facility] [address] [id number] [address] [place] [address], [place] [address] Apr, [facility] [address] [id number] [address] [place] [address], [place] [address] Apr, [facility] [address] [id number] [address] [place] [address], [place] [address] Apr, [facility] [address] [id number] [address] [place] [address], [place] [address] Apr, [facility] [address] [id number] [address] [place] [address], [place] [address] Apr, [facility] [address] [id number] [address] [place] [address], [place] [address] Apr, [facility] [address] [id number] [address] [place] [address] [place] [address] Mar, [facility] [address] [id number] [address] [place] [address], [place] [address] Mar, [facility] [address] [id number] [address] [place] [address], [place] [address] Mar, [facility] [address] [id number] [address] [place] [address], [place] [address] Mar, [facility] [address] [id number] [address] [place] [address], [place] [address] Mar, [facility] [address] [id number] [address] [place] [address], [place] [address] Mar, [facility] [address] [id number] [address] [place] [address], [place] [address] Mar, [facility] [address] [id number] [address] [place] [address], [place] [address] Mar, [facility] [address] [id number] [address] [place] [address], [place] [address] Mar, [facility] [address] [id number] [address] [place] [address], [place] [address] Feb, [facility] [address] [id number] [address] [place] [address], [place] [address] Jan, [facility] [address] [id number] [address] [place] [address], [place] [address] Jan, [facility] [address] [id number] [address] [place] [address], [place] [address] Jan, [facility] [address] [id number] [address] [place] [address], [place] [address] Dec, [facility] [address] [id number] [address] [place] [address], [place] [address] Dec, [facility] [address] [id number] [address] [place] [address], [place] [address] Dec, [facility] [address] [id number] [address] [place] [address], [place] [address] Nov, [facility] [address] [id number] [address] [place] [address], [place] [address] October, [facility] [address] [id number] [address] [place] [address], [place] [address] October, [facility] [address] [id number] [address] [place] [address], [place] [address] October, [facility] [address] [id number] [address] [place] [address], [place] [address] October, [facility] [address] [id number] [address] [place] [address], [place] [address] October, [facility] [address] [id number] [address] [place] [address], [place] [address] Sep, [facility] [address] [id number] [address] [place] [address], [place] [address] Sep, [facility] [address] [id number] [address] [place] [address], [place] [address] Sep, [facility] [address] [id number] [address] [place] [address], [place] [address] Sep, [facility] [address] [id number] [address] [place] [address], [place] [address] Sep, [facility] [address] [id number] [address] [place] [address], [place] [address] Sep, [facility] [address] [id number] [address] [place] [address], [place] [address] Sep, [facility] [address] [id number] [address] [place] [address], [place] [address] Aug, [facility] [address] [id number] [address] [place] [address], [place] [address] Aug, [facility] [address] [id number] [address] [place] [address], [place] [address] 21 Aug, 2011 [facility] [address] [id number] [facility] [place] [address] 21 Aug, 2011 [facility] [address] [id number] [address] [place] [address], [place] [address] 20 Aug, 2011 [facility] [address] [id number] [facility] [place] [address] 19 Aug, 2011 [facility] [address] [id number] [address] [place] [address], [place] [address] 16 Aug, 2011 [facility] [address] [id number] [address] [place] [address], [place] [address] 15 Aug, 2011 [facility] [address] [id number] [address] [place] [address], [place] [address] 15 Aug, 2011 [facility] [address] [id number] [address] [place] [address], [place] [address] 14 Aug, 2011 [facility] [address] [id number] [address] [place] [address], [place] [address] 12 Aug, 2011 [facility] [address] [id number] [address] [place] [address], [place] [address] 08 Aug, 2011 [facility] [address] [id number] [address] [place] [address], [place] [address] 15 Jul, 2011 [facility] [address] [id number] [address] [place] [address], [place] [address] 15 Jul, 2011 [facility] [address] [id number] [address] [place] [address], [place] [address] 14 Jul, 2011 [facility] [address] [id number] [address] [place] [address], [place] [address] 06 Jul, 2011 [facility] [address] [id number] [address] [place] [address], [place] [address] 02 Jul, 2011 [facility] [address] [id number] [address] [place] [address], [place] [address] 18 Jun, 2011 [facility] [address] [id number] [address] [place] [address], [place] [address] Jun, [facility] [address] [id number] [address] [place] [address], [place] [address] Jun, [facility] [address] [id number] [address] [place] [address], [place] [address] May, [facility] [address] [id number] [address] [place] [address], [place] [address] May, [facility] [address] [id number] [address] [place] [address], [place] [address] May, [facility] [address] [id number] [address] [place] [address], [place] [address] May, [facility] [address] [id number] [address] [place] [address], [place] [address] 14 May, 2011 [facility] [address] [id number] [address] [place] [address], [place] [address] 16 Apr, 2011 [facility] [address] [id number] [address] [place] [address], [place] [address] 16 Apr, 2011 [facility] [address] [id number] [address] [place] [address], [place] [address] 15 Apr, 2011 [facility] [address] [id number] [address] [place] [address], [place] [address] 14 Apr, 2011 [facility] [address] [id number] [address] [place] [address], [place] [address] 25 Mar, 2011 [facility] [address] [id number] [address] [place] [address], [place] [address] Mar, [facility] [address] [id number] [address] [place] [address], [place] [address] Mar, [facility] [address] [id number] [address] [place] [address], [place] [address] Mar, [facility] [address] [id number] [address] [place] [address], [place] [address] 17 Mar, 2011 [facility] [address] [id number] [address] [place] [id number] 17 Mar, 2011 [facility] [address] [id number] [address] [place] [id number] 16 Feb, 2011 [facility] [address] [id number] [address] [place] [id number] 10 Nov, 2010 [facility] [address] [id number] [address] [place] [id number] Aug, [facility] [address] [id number] [address] [place] [id number] Apr, [facility] [address] [id number] [address] [place] [id number] 16 Mar, 2010 [facility] [address] [id number] [address] [place] [id number] Apr, [facility] [address] [id number] [address] [place] [id number] Apr, [facility] [address] [id number] [address] [place] [id number] Sep, [facility] [address] [id number] [address] [place] [id number] Mar, IMMUNIZATIONS No Known Immunizations SOCIAL HISTORY Never Assessed REASON FOR VISIT PLAN OF CARE VITAL SIGNS Height 63 in 2012-12-06 Weight 210.4 lbs 2012-12-06 Temperature 97.2 degrees Fahrenheit 2012-12-06 Heart Rate 84 bpm 2012-12-06 Respiratory Rate 18 2012-12-06 Blood pressure systolic 111 mmHg 2012-12-06 Blood pressure diastolic 78 mmHg 2012-12-06 MEDICATIONS Unknown Medications RESULTS No Results PROCEDURES Procedure Date Ordered Result Body Site MEASURE BLOOD OXYGEN LEVEL December 06, 2012 INSTRUCTIONS MEDICATIONS ADMINISTERED No Known Medications MEDICAL [...] ER for Kidney pain/Stones 06/19/18 Hospitalization History [facility] X4 days 9
--- OUTSIDE RECORDS SUMMARY | 2019-12-26 10:51 | XMS REPORT ---
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 [place] [address], [place] [address] Jan, [facility] [address] [id number] [address] [place] [address], [place] [address] Jan, [facility] [address] [id number] [address] [place] [address], [place] [address] Jan, [facility] [address] [id number] [address] [place] [address], [place] [address] Jan, [facility] [address] [id number] [address] [place] [address], [place] [address] Jan, [facility] [address] [id number] [address] [place] [address], [place] [address] Jan, [facility] [address] [id number] [address] [place] [address], [place] [address] Jan, [facility] [address] [id number] [address] [place] [address], [place] [address] Dec, [facility] [address] [id number] [address] [place] [address], [place] [address] Dec, [facility] [address] [id number] [address] [place] [address], [place] [address] Dec, [facility] [address] [id number] [address] [place] [address], [place] [address] Dec, [facility] [address] [id number] [address] [place] [address], [place] [address] Nov, [facility] [address] [id number] [address] [place] [address], [place] [address] Nov, [facility] [address] [id number] [address] [place] [address], [place] [address] Nov, [facility] [address] [id number] [address] [place] [address], [place] [address] Nov, [facility] [address] [id number] [address] [place] [address], [place] [address] October, [facility] [address] [id number] [address] [place] [address], [place] [address] October, [facility] [address] [id number] [address] [place] [address], [place] [address] Sep, [facility] [address] [id number] [address] [place] [address], [place] [address] Sep, [facility] [address] [id number] [address] [place] [address], [place] [address] Sep, [facility] [address] [id number] [address] [place] [address], [place] [address] Sep, [facility] [address] [id number] [address] [place] [address], [place] [address] Sep, [facility] [address] [id number] [address] [place] [address], [place] [address] Sep, [facility] [address] [id number] [address] [place] [address], [place] [address] Sep, [facility] [address] [id number] [address] [place] [address], [place] [address] Sep, [facility] [address] [id number] [address] [place] [address], [place] [address] Sep, [facility] [address] [id number] [address] [place] [address], [place] [address] Sep, [facility] [address] [id number] [address] [place] [address], [place] [address] Jul, [facility] [address] [id number] [address] [place] [address], [place] [address] Jul, [facility] [address] [id number] [address] [place] [address], [place] [address] Jul, [facility] [address] [id number] [address] [place] [address], [place] [address] Jul, [facility] [address] [id number] [address] [place] [address], [place] [address] Jun, [facility] [address] [id number] [address] [place] [address], [place] [address] Jun, [facility] [address] [id number] [address] [place] [address], [place] [address] Jun, [facility] [address] [id number] [address] [place] [address], [place] [address] Jun, [facility] [address] [id number] [address] [place] [address], [place] [address] Jun, [facility] [address] [id number] [address] [place] [address], [place] [address] Jun, [facility] [address] [id number] [address] [place] [address], [place] [address] Apr, [facility] [address] [id number] [address] [place] [address], [place] [address] Apr, [facility] [address] [id number] [address] [place] [address], [place] [address] Apr, [facility] [address] [id number] [address] [place] [address], [place] [address] Apr, [facility] [address] [id number] [address] [place] [address], [place] [address] Apr, [facility] [address] [id number] [address] [place] [address], [place] [address] Apr, [facility] [address] [id number] [address] [place] [address], [place] [address] Apr, [facility] [address] [id number] [address] [place] [address], [place] [address] Apr, [facility] [address] [id number] [address] [place] [address], [place] [address] Mar, [facility] [address] [id number] [address] [place] [address], [place] [address] Mar, [facility] [address] [id number] [address] [place] [address], [place] [address] Feb, [facility] [address] [id number] [facility] [place] [address] Feb, [facility] [address] [id number] [address] [place] [address], [place] [address] Dec, [facility] [address] [id number] [address] [place] [address], [place] [address] Dec, [facility] [address] [id number] [address] [place] [address], [place] [address] Dec, [facility] [address] [id number] [address] [place] [address], [place] [address] Dec, [facility] [address] [id number] [address] [place] [address], [place] [address] Dec, [facility] [address] [id number] [address] [place] [address], [place] [address] Dec, [facility] [address] [id number] [address] [place] [address], [place] [address] Dec, [facility] [address] [id number] [address] [place] [address], [place] [address] Nov, [facility] [address] [id number] [address] [place] [address], [place] [address] Nov, [facility] [address] [id number] [address] [place] [address], [place] [address] Nov, [facility] [address] [id number] [address] [place] [address], [place] [address] Nov, [facility] [address] [id number] [address] [place] [address], [place] [address] October, [facility] [address] [id number] [address] [place] [address], [place] [address] October, [facility] [address] [id number] [address] [place] [address], [place] [address] October, [facility] [address] [id number] [address] [place] [address], [place] [address] October, [facility] [address] [id number] [address] [place] [address], [place] [address] Sep, [facility] [address] [id number] [address] [place] [address], [place] [address] 30 Aug, 2012 [facility] [address] [id number] [address] [place] [address], [place] [address] 29 Aug, 2012 [facility] [address] [id number] [address] [place] [address], [place] [address] Aug, [facility] [address] [id number] [address] [place] [address], [place] [address] Aug, [facility] [address] [id number] [address] [place] [address], [place] [address] Aug, [facility] [address] [id number] [address] [place] [address], [place] [address] 27 Jul, 2012 [facility] [address] [id number] [address] [place] [address], [place] [address] 27 Jul, 2012 [facility] [address] [id number] [address] [place] [address], [place] [address] 26 Jul, 2012 [facility] [address] [id number] [address] [place] [address], [place] [address] Jul, [facility] [address] [id number] [address] [place] [address], [place] [address] Jul, [facility] [address] [id number] [address] [place] [address], [place] [address] 23 Jul, 2012 [facility] [address] [id number] [address] [place] [address], [place] [address] 20 Jul, 2012 [facility] [address] [id number] [address] [place] [address], [place] [address] 15 Jul, 2012 [facility] [address] [id number] [address] [place] [address] 14 Jul, 2012 [facility] [address] [id number] [address] [place] [address], [place] [address] Jul, [facility] [address] [id number] [address] [place] [address], [place] [address] Jun, [facility] [address] [id number] [address] [place] [address], [place] [address] Jun, [facility] [address] [id number] [address] [place] [address] Jun, [facility] [address] [id number] [address] [place] [address], [place] [address] May, [facility] [address] [id number] [address] [place] [address], [place] [address] May, [facility] [address] [id number] [address] [place] [address], [place] [address] Apr, [facility] [address] [id number] [address] [place] [address], [place] [address] Apr, [facility] [address] [id number] [address] [place] [address], [place] [address] Apr, [facility] [address] [id number] [address] [place] [address], [place] [address] Apr, [facility] [address] [id number] [address] [place] [address], [place] [address] Apr, [facility] [address] [id number] [address] [place] [address] Apr, [facility] [address] [id number] [address] [place] [address], [place] [address] Apr, [facility] [address] [id number] [address] [place] [address], [place] [address] Apr, [facility] [address] [id number] [address] [place] [address], [place] [address] Mar, [facility] [address] [id number] [address] [place] [address], [place] [address] Mar, [facility] [address] [id number] [address] [place] [address], [place] [address] Mar, [facility] [address] [id number] [address] [place] [address], [place] [address] Mar, [facility] [address] [id number] [address] [place] [address], [place] [address] Mar, [facility] [address] [id number] [address] [place] [address], [place] [address] Mar, [facility] [address] [id number] [address] [place] [address], [place] [address] Mar, [facility] [address] [id number] [address] [place] [address], [place] [address] Mar, [facility] [address] [id number] [address] [place] [address], [place] [address] Mar, [facility] [address] [id number] [address] [place] [address], [place] [address] Feb, [facility] [address] [id number] [address] [place] [address], [place] [address] Jan, [facility] [address] [id number] [address] [place] [address], [place] [address] Jan, [facility] [address] [id number] [address] [place] [address], [place] [address] Jan, [facility] [address] [id number] [address] [place] [address], [place] [address] Dec, [facility] [address] [id number] [address] [place] [address], [place] [address] Dec, [facility] [address] [id number] [address] [place] [address], [place] [address] Dec, [facility] [address] [id number] [address] [place] [address], [place] [address] Nov, [facility] [address] [id number] [address] [place] [address], [place] [address] October, [facility] [address] [id number] [address] [place] [address], [place] [address] October, [facility] [address] [id number] [address] [place] [address], [place] [address] October, [facility] [address] [id number] [address] [place] [address], [place] [address] October, [facility] [address] [id number] [address] [place] [address], [place] [address] October, [facility] [address] [id number] [address] [place] [address], [place] [address] Sep, [facility] [address] [id number] [address] [place] [address], [place] [address] Sep, [facility] [address] [id number] [address] [place] [address], [place] [address] Sep, [facility] [address] [id number] [address] [place] [address], [place] [address] Sep, [facility] [address] [id number] [address] [place] [address], [place] [address] Sep, [facility] [address] [id number] [address] [place] [address], [place] [address] Sep, [facility] [address] [id number] [address] [place] [address], [place] [address] Sep, [facility] [address] [id number] [address] [place] [address], [place] [address] Aug, [facility] [address] [id number] [address] [place] [address], [place] [address] Aug, [facility] [address] [id number] [address] [place] [address], [place] [address] Aug, [facility] [address] [id number] [address] [place] [address], [place] [address] 21 Aug, 2011 [facility] [address] [id number] [address] [place] [address], [place] [address] 20 Aug, 2011 [facility] [address] [id number] [address] [place] [address], [place] [address] 19 Aug, 2011 [facility] [address] [id number] [address] [place] [address], [place] [address] 16 Aug, 2011 [facility] [address] [id number] [address] [place] [address], [place] [address] 15 Aug, 2011 [facility] [address] [id number] [address] [place] [address], [place] [address] 15 Aug, 2011 [facility] [address] [id number] [address] [place] [address], [place] [address] 14 Aug, 2011 [facility] [address] [id number] [address] [place], [place] [address], [place] [address] 12 Aug, 2011 [facility] [address] [id number] [address] [place] [address], [place] [address] 08 Aug, 2011 [facility] [address] [id number] [address] [place] [address], [place] [address] 15 Jul, 2011 [facility] [address] [id number] [address] [place] [address], [place] [address] 15 Jul, 2011 [facility] [address] [id number] [address] [place] [address], [place] [address] 14 Jul, 2011 [facility] [address] [id number] [address] [place] [address], [place] [address] 06 Jul, 2011 [facility] [address] [id number] [address] [place] [address], [place] [address] 02 Jul, 2011 [facility] [address] [id number] [address] [place] [address], [place] [address] 18 Jun, 2011 [facility] [address] [id number] [address] [place] [address], [place] [address] Jun, [facility] [address] [id number] [address] [place] [address], [place] [address] Jun, [facility] [address] [id number] [address] [place] [address], [place] [address] May, [facility] [address] [id number] [address] [place] [address], [place] [address] May, [facility] [address] [id number] [address] [place] [address], [place] [address] May, [facility] [address] [id number] [address] [place] [address], [place] [address] May, [facility] [address] [id number] [address] [place] [address], [place] [address] May, [facility] [address] [id number] [address] [place] [address], [place] [address] 16 Apr, 2011 [facility] [address] [id number] [address] [place] [address], [place] [address] 16 Apr, 2011 [facility] [address] [id number] [address] [place] [address], [place] [address] 15 Apr, 2011 [facility] [address] [id number] [address] [place] [address], [place] [address] 14 Apr, 2011 [facility] [address] [id number] [address] [place] [address], [place] [address] 25 Mar, 2011 [facility] [address] [id number] [address] [place] [address], [place] [address] 24 Mar, 2011 [facility] [address] [id number] [address] [place] [address], [place] [address] Mar, [facility] [address] [id number] [address] [place] [address], [place] [address] 19 Mar, 2011 [facility] [address] [id number] [address] [place] [address], [place] [address] 17 Mar, 2011 [facility] [address] [id number] [address] [place] [id number] 17 Mar, 2011 [facility] [address] [id number] [address] [place] [id number] 16 Feb, 2011 [facility] [address] [id number] [address] [place] [id number] 10 Nov, 2010 [facility] [address] [id number] [address] [place] [id number] 17 Aug, 2010 [facility] [address] [id number] [address] [place] [id number] Apr, [facility] [address] [id number] [address] [place] [id number] Mar, [facility] [address] [id number] [address] [place] [id number] Apr, [facility] [address] [id number] [address] [place] [id number] Apr, [facility] [address] [id number] [address] [place] [id number] Sep, [facility] [address] [id number] [address] [place] [id number] Mar, IMMUNIZATIONS No Known Immunizations SOCIAL HISTORY Never Assessed REASON FOR VISIT PLAN OF CARE VITAL SIGNS Height 63 in 2012-11-30 Weight 213.61 lbs 2012-11-30 Temperature 98 degrees Fahrenheit 2012-11-30 Heart Rate 75 bpm 2012-11-30 Respiratory Rate 18 2012-11-30 Blood pressure systolic 120 mmHg 2012-11-30 Blood pressure diastolic 75 mmHg 2012-11-30 MEDICATIONS Unknown Medications RESULTS No Results PROCEDURES [...] ER for Kidney pain/Stones 06/19/18 Hospitalization History [facility] X4 days 9
--- OUTSIDE RECORDS SUMMARY | 2019-12-26 10:52 | XMS REPORT ---
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 [address] Jan, [facility] [address] [id number] [address] [place] [address], [place] [address] Jan, [facility] [address] [id number] [address] [place] [address], [place] [address] Jan, [facility] [address] [id number] [address] [place] [address], [place] [address] Jan, [facility] [address] [id number] [address] [place] [address], [place] [address] Jan, [facility] [address] [id number] [address] [place] [address], [place] [address] Jan, [facility] [address] [id number] [address] [place] [address], [place] [address] Jan, [facility] [address] [id number] [address] [place] [address], [place] [address] Dec, [facility] [address] [id number] [address] [place] [address], [place] [address] Dec, [facility] [address] [id number] [address] [place] [address], [place] [address] Dec, [facility] [address] [id number] [address] [place] [address], [place] [address] Dec, [facility] [address] [id number] [address] [place] [address], [place] [address] Nov, [facility] [address] [id number] [address] [place] [address], [place] [address] Nov, [facility] [address] [id number] [address] [place] [address], [place] [address] Nov, [facility] [address] [id number] [address] [place] [address], [place] [address] Nov, [facility] [address] [id number] [address] [place] [address], [place] [address] October, [facility] [address] [id number] [address] [place] [address], [place] [address] October, [facility] [address] [id number] [address] [place] [address], [place] [address] Sep, [facility] [address] [id number] [address] [place] [address], [place] [address] Sep, [facility] [address] [id number] [address] [place] [address], [place] [address] Sep, [facility] [address] [id number] [address] [place] [address], [place] [address] Sep, [facility] [address] [id number] [address] [place] [address], [place] [address] Sep, [facility] [address] [id number] [address] [place] [address], [place] [address] Sep, [facility] [address] [id number] [address] [place] [address], [place] [address] Sep, [facility] [address] [id number] [address] [place] [address], [place] [address] Sep, [facility] [address] [id number] [address] [place] [address], [place] [address] Sep, [facility] [address] [id number] [address] [place] [address], [place] [address] Sep, [facility] [address] [id number] [address] [place] [address], [place] [address] Jul, [facility] [address] [id number] [address] [place] [address], [place] [address] Jul, [facility] [address] [id number] [address] [place] [address], [place] [address] Jul, [facility] [address] [id number] [address] [place] [address], [place] [address] Jul, [facility] [address] [id number] [address] [place] [address], [place] [address] Jun, [facility] [address] [id number] [address] [place] [address], [place] [address] Jun, [facility] [address] [id number] [address] [place] [address], [place] [address] Jun, [facility] [address] [id number] [address] [place] [address], [place] [address] Jun, [facility] [address] [id number] [address] [place] [address], [place] [address] Jun, [facility] [address] [id number] [address] [place] [address], [place] [address] Jun, [facility] [address] [id number] [address] [place] [address], [place] [address] Apr, [facility] [address] [id number] [address] [place] [address], [place] [address] Apr, [facility] [address] [id number] [address] [place] [address], [place] [address] Apr, [facility] [address] [id number] [address] [place] [address], [place] [address] Apr, [facility] [address] [id number] [address] [place] [address], [place] [address] Apr, [facility] [address] [id number] [address] [place] [address], [place] [address] Apr, [facility] [address] [id number] [address] [place] [address], [place] [address] Apr, [facility] [address] [id number] [address] [place] [address], [place] [address] Apr, [facility] [address] [id number] [address] [place] [address], [place] [address] Mar, [facility] [address] [id number] [address] [place] [address], [place] [address] Mar, [facility] [address] [id number] [address] [place] [address], [place] [address] Feb, [facility] [address] [id number] [facility] [place] [address] Feb, [facility] [address] [id number] [address] [place] [address], [place] [address] Dec, [facility] [address] [id number] [address] [place] [address], [place] [address] Dec, [facility] [address] [id number] [address] [place] [address], [place] [address] Dec, [facility] [address] [id number] [address] [place] [address], [place] [address] Dec, [facility] [address] [id number] [address] [place] [address], [place] [address] Dec, [facility] [address] [id number] [address] [place] [address], [place] [address] Dec, [facility] [address] [id number] [address] [place] [address], [place] [address] Dec, [facility] [address] [id number] [address] [place] [address], [place] [address] Nov, [facility] [address] [id number] [address] [place] [address], [place] [address] Nov, [facility] [address] [id number] [address] [place] [address], [place] [address] Nov, [facility] [address] [id number] [address] [place] [address], [place] [address] Nov, [facility] [address] [id number] [address] [place] [address], [place] [address] October, [facility] [address] [id number] [address] [place] [address], [place] [address] October, [facility] [address] [id number] [address] [place] [address], [place] [address] October, [facility] [address] [id number] [address] [place] [address], [place] [address] October, [facility] [address] [id number] [address] [place] [address], [place] [address] Sep, [facility] [address] [id number] [address] [place] [address], [place] [address] 30 Aug, 2012 [facility] [address] [id number] [address] [place] [address], [place] [address] 29 Aug, 2012 [facility] [address] [id number] [address] [place] [address], [place] [address] Aug, [facility] [address] [id number] [address] [place] [address], [place] [address] Aug, [facility] [address] [id number] [address] [place] [address], [place] [address] Aug, [facility] [address] [id number] [address] [place] [address], [place] [address] 27 Jul, 2012 [facility] [address] [id number] [address] [place] [address], [place] [address] 27 Jul, 2012 [facility] [address] [id number] [address] [place] [address], [place] [address] 26 Jul, 2012 [facility] [address] [id number] [address] [place] [address], [place] [address] Jul, [facility] [address] [id number] [address] [place] [address], [place] [address] Jul, [facility] [address] [id number] [address] [place] [address], [place] [address] 23 Jul, 2012 [facility] [address] [id number] [address] [place] [address], [place] [address] 20 Jul, 2012 [facility] [address] [id number] [address] [place] [address], [place] [address] 15 Jul, 2012 [facility] [address] [id number] [address] [place] [address] 14 Jul, 2012 [facility] [address] [id number] [address] [place] [address], [place] [address] Jul, [facility] [address] [id number] [address] [place] [address], [place] [address] Jun, [facility] [address] [id number] [address] [place] [address], [place] [address] Jun, [facility] [address] [id number] [address] [place] [id number] Jun, [facility] [address] [id number] [address] [place] [address], [place] [address] May, [facility] [address] [id number] [address] [place] [address], [place] [address] May, [facility] [address] [id number] [address] [place] [address], [place] [address] Apr, [facility] [address] [id number] [address] [place] [address], [place] [address] Apr, [facility] [address] [id number] [address] [place] [address], [place] [address] Apr, [facility] [address] [id number] [address] [place] [address], [place] [address] Apr, [facility] [address] [id number] [address] [place] [address], [place] [address] Apr, [facility] [address] [id number] [address] [place] [id number] Apr, [facility] [address] [id number] [address] [place] [address], [place] [address] Apr, [facility] [address] [id number] [address] [place] [address], [place] [address] Apr, [facility] [address] [id number] [address] [place] [address], [place] [address] Mar, [facility] [address] [id number] [address] [place] [address], [place] [address] Mar, [facility] [address] [id number] [address] [place] [address], [place] [address] Mar, [facility] [address] [id number] [address] [place] [address], [place] [address] Mar, [facility] [address] [id number] [address] [place] [address], [place] [address] Mar, [facility] [address] [id number] [address] [place] [address], [place] [address] Mar, [facility] [address] [id number] [address] [place] [address], [place] [address] Mar, [facility] [address] [id number] [address] [place] [address], [place] [address] Mar, [facility] [address] [id number] [address] [place] [address], [place] [address] Mar, [facility] [address] [id number] [address] [place] [address], [place] [address] Feb, [facility] [address] [id number] [address] [place] [address], [place] [address] Jan, [facility] [address] [id number] [address] [place] [address], [place] [address] Jan, [facility] [address] [id number] [address] [place] [address], [place] [address] Jan, [facility] [address] [id number] [address] [place] [address], [place] [address] Dec, [facility] [address] [id number] [address] [place] [address], [place] [address] Dec, [facility] [address] [id number] [address] [place] [address], [place] [address] Dec, [facility] [address] [id number] [address] [place] [address], [place] [address] Nov, [facility] [address] [id number] [address] [place] [address], [place] [address] October, [facility] [address] [id number] [address] [place] [address], [place] [address] October, [facility] [address] [id number] [address] [place] [address], [place] [address] October, [facility] [address] [id number] [address] [place] [address], [place] [address] October, [facility] [address] [id number] [address] [place] [address], [place] [address] October, [facility] [address] [id number] [address] [place] [address], [place] [address] Sep, [facility] [address] [id number] [address] [place] [address], [place] [address] Sep, [facility] [address] [id number] [address] [place] [address], [place] [address] Sep, [facility] [address] [id number] [address] [place] [address], [place] [address] Sep, [facility] [address] [id number] [address] [place] [address], [place] [address] Sep, [facility] [address] [id number] [address] [place] [address], [place] [address] Sep, [facility] [address] [id number] [address] [place] [address], [place] [address] Sep, [facility] [address] [id number] [address] [place] [address], [place] [address] Aug, [facility] [address] [id number] [address] [place] [address], [place] [address] Aug, [facility] [address] [id number] [address] [place] [address], [place] [address] Aug, [facility] [address] [id number] [address] [place] [address], [place] [address] 21 Aug, 2011 [facility] [address] [id number] [address] [place] [address], [place] [address] 20 Aug, 2011 [facility] [address] [id number] [address] [place] [address], [place] [id number] 19 Aug, 2011 [facility] [address] [id number] [address] [place] [address], [place] [address] 16 Aug, 2011 [facility] [address] [id number] [address] [place] [address], [place] [address] 15 Aug, 2011 [facility] [address] [id number] [address] [place] [address], [place] [address] 15 Aug, 2011 [facility] [address] [id number] [address] [place] [address], [place] [address] 14 Aug, 2011 [facility] [address] [id number] [address] [place] [address], [place] [address] 12 Aug, 2011 [facility] [address] [id number] [address] [place] [address], [place] [address] 08 Aug, 2011 [facility] [address] [id number] [address] [place] [address], [place] [address] 15 Jul, 2011 [facility] [address] [id number] [address] [place] [address], [place] [address] 15 Jul, 2011 [facility] [address] [id number] [address] [place] [address], [place] [address] 14 Jul, 2011 [facility] [address] [id number] [address] [place] [address], [place] [address] 06 Jul, 2011 [facility] [address] [id number] [address] [place] [address], [place] [address] 02 Jul, 2011 [facility] [address] [id number] [address] [place] [address], [place] [address] 18 Jun, 2011 [facility] [address] [id number] [address] [place] [address], [place] [address] Jun, [facility] [address] [id number] [address] [place] [address], [place] [address] Jun, [facility] [address] [id number] [address] [place] [address], [place] [address] May, [facility] [address] [id number] [address] [place] [address], [place] [address] May, [facility] [address] [id number] [address] [place] [address], [place] [address] May, [facility] [address] [id number] [address] [place] [address], [place] [address] May, [facility] [address] [id number] [address] [place] [address], [place] [address] May, [facility] [address] [id number] [address] [place] [address], [place] [address] 16 Apr, 2011 [facility] [address] [id number] [address] [place] [address], [place] [address] 16 Apr, 2011 [facility] [address] [id number] [address] [place] [address], [place] [address] 15 Apr, 2011 [facility] [address] [id number] [address] [place] [address], [place] [address] 14 Apr, 2011 [facility] [address] [id number] [address] [place] [address], [place] [address] 25 Mar, 2011 [facility] [address] [id number] [address] [place] [address], [place] [address] 24 Mar, 2011 [facility] [address] [id number] [address] [place] [address], [place] [address] Mar, [facility] [address] [id number] [address] [place] [address], [place] [address] 19 Mar, 2011 [facility] [address] [id number] [address] [place] [address], [place] [address] 17 Mar, 2011 [facility] [address] [id number] [address] [place] [id number] 17 Mar, 2011 [facility] [address] [id number] [address] [place] [id number] 16 Feb, 2011 [facility] [address] [id number] [address] [place] [id number] 10 Nov, 2010 [facility] [address] [id number] [address] [place] [id number] 17 Aug, 2010 [facility] [address] [id number] [address] [place] [id number] Apr, [facility] [address] [id number] [address] [place] [id number] Mar, [facility] [address] [id number] [address] [place] [id number] Apr, [facility] [address] [id number] [address] [place] [id number] Apr, [facility] [address] [id number] [address] [place] [id number] 15 Sep, 2008 [facility] [address] [id number] [address] [place] [id number] Mar, IMMUNIZATIONS No Known Immunizations SOCIAL HISTORY Never Assessed REASON FOR VISIT PLAN OF CARE VITAL SIGNS Height 63 in 2012-12-17 Weight 212.31 lbs 2012-12-17 Temperature 99.8 degrees Fahrenheit 2012-12-17 Heart Rate 80 bpm 2012-12-17 Respiratory Rate 18 2012-12-17 Blood pressure systolic 120 mmHg 2012-12-17 Blood pressure diastolic 80 mmHg 2012-12-17 MEDICATIONS Unknown Medications RESULTS No Results PROCEDURES Procedure Date Ordered Result Body Site X-RAY EXAM OF SHOULDER December 17, 2012 INSTRUCTIONS MEDICATIONS ADMINISTERED No Known Medications [...] ER for Kidney pain/Stones 06/19/18 Hospitalization History [facility] X4 days 9
--- OUTSIDE RECORDS SUMMARY | 2019-12-26 10:52 | XMS REPORT ---
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 [address], [place] [address] Jan, [facility] [address] [id number] [address] [place] [address], [place] [address] Jan, [facility] [address] [id number] [address] [place] [address], [place] [address] Jan, [facility] [address] [id number] [address] [place] [address], [place] [address] Jan, [facility] [address] [id number] [address] [place] [address], [place] [address] Jan, [facility] [address] [id number] [address] [place] [address], [place] [address] Dec, [facility] [address] [id number] [address] [place] [address], [place] [address] Dec, [facility] [address] [id number] [address] [place] [address], [place] [address] Dec, [facility] [address] [id number] [address] [place] [address], [place] [address] Dec, [facility] [address] [id number] [address] [place] [address], [place] [address] Nov, [facility] [address] [id number] [address] [place] [address], [place] [address] Nov, [facility] [address] [id number] [address] [place] [address], [place] [address] Nov, [facility] [address] [id number] [address] [place] [address], [place] [address] Nov, [facility] [address] [id number] [address] [place] [address], [place] [address] October, [facility] [address] [id number] [address] [place] [address], [place] [address] October, [facility] [address] [id number] [address] [place] [address], [place] [address] Sep, [facility] [address] [id number] [address] [place] [address], [place] [address] Sep, [facility] [address] [id number] [address] [place] [address], [place] [address] Sep, [facility] [address] [id number] [address] [place] [address], [place] [address] Sep, [facility] [address] [id number] [address] [place] [address], [place] [address] Sep, [facility] [address] [id number] [address] [place] [address], [place] [address] Sep, [facility] [address] [id number] [address] [place] [address], [place] [address] Sep, [facility] [address] [id number] [address] [place] [address], [place] [address] Sep, [facility] [address] [id number] [address] [place] [address], [place] [address] Sep, [facility] [address] [id number] [address] [place] [address], [place] [address] Sep, [facility] [address] [id number] [address] [place] [address], [place] [address] Jul, [facility] [address] [id number] [address] [place] [address], [place] [address] Jul, [facility] [address] [id number] [address] [place] [address], [place] [address] Jul, [facility] [address] [id number] [address] [place] [address], [place] [address] Jul, [facility] [address] [id number] [address] [place] [address], [place] [address] Jun, [facility] [address] [id number] [address] [place] [address], [place] [address] Jun, [facility] [address] [id number] [address] [place] [address], [place] [address] Jun, [facility] [address] [id number] [address] [place] [address], [place] [address] Jun, [facility] [address] [id number] [address] [place] [address], [place] [address] Jun, [facility] [address] [id number] [address] [place] [address], [place] [address] Jun, [facility] [address] [id number] [address] [place] [address], [place] [address] Apr, [facility] [address] [id number] [address] [place] [address], [place] [address] Apr, [facility] [address] [id number] [address] [place] [address], [place] [address] Apr, [facility] [address] [id number] [address] [place] [address], [place] [address] Apr, [facility] [address] [id number] [address] [place] [address], [place] [address] Apr, [facility] [address] [id number] [address] [place] [address], [place] [address] Apr, [facility] [address] [id number] [address] [place] [address], [place] [address] Apr, [facility] [address] [id number] [address] [place] [address], [place] [address] Apr, [facility] [address] [id number] [address] [place] [address], [place] [address] Mar, [facility] [address] [id number] [address] [place] [address], [place] [address] Mar, [facility] [address] [id number] [address] [place] [address], [place] [address] Feb, [facility] [address] [id number] [facility] [place] [address] Feb, [facility] [address] [id number] [address] [place] [address], [place] [address] Dec, [facility] [address] [id number] [address] [place] [address], [place] [address] Dec, [facility] [address] [id number] [address] [place] [address], [place] [address] Dec, [facility] [address] [id number] [address] [place] [address], [place] [address] Dec, [facility] [address] [id number] [address] [place] [address], [place] [address] Dec, [facility] [address] [id number] [address] [place] [address], [place] [address] Dec, [facility] [address] [id number] [address] [place] [address], [place] [address] Dec, [facility] [address] [id number] [address] [place] [address], [place] [address] Nov, [facility] [address] [id number] [address] [place] [address], [place] [address] Nov, [facility] [address] [id number] [address] [place] [address], [place] [address] Nov, [facility] [address] [id number] [address] [place] [address], [place] [address] Nov, [facility] [address] [id number] [address] [place] [address], [place] [address] October, [facility] [address] [id number] [address] [place] [address], [place] [address] October, [facility] [address] [id number] [address] [place] [address], [place] [address] October, [facility] [address] [id number] [address] [place] [address], [place] [address] October, [facility] [address] [id number] [address] [place] [address], [place] [address] Sep, [facility] [address] [id number] [address] [place] [address], [place] [address] 30 Aug, 2012 [facility] [address] [id number] [address] [place] [address], [place] [address] 29 Aug, 2012 [facility] [address] [id number] [address] [place] [address], [place] [address] Aug, [facility] [address] [id number] [address] [place] [address], [place] [address] Aug, [facility] [address] [id number] [address] [place] [address], [place] [address] Aug, [facility] [address] [id number] [address] [place] [address], [place] [address] 27 Jul, 2012 [facility] [address] [id number] [address] [place] [address], [place] [address] 27 Jul, 2012 [facility] [address] [id number] [address] [place] [address], [place] [address] 26 Jul, 2012 [facility] [address] [id number] [address] [place] [address], [place] [address] Jul, [facility] [address] [id number] [address] [place] [address], [place] [address] Jul, [facility] [address] [id number] [address] [place] [address], [place] [address] 23 Jul, 2012 [facility] [address] [id number] [address] [place] [address], [place] [address] 20 Jul, 2012 [facility] [address] [id number] [address] [place] [address], [place] [address] 15 Jul, 2012 [facility] [address] [id number] [address] [place] [address] 14 Jul, 2012 [facility] [address] [id number] [address] [place] [address], [place] [address] Jul, [facility] [address] [id number] [address] [place] [address], [place] [address] Jun, [facility] [address] [id number] [address] [place] [address], [place] [address] Jun, [facility] [address] [id number] [address] [place] [address] Jun, [facility] [address] [id number] [address] [place] [address], [place] [address] May, [facility] [address] [id number] [address] [place] [address], [place] [address] May, [facility] [address] [id number] [address] [place] [address], [place] [address] Apr, [facility] [address] [id number] [address] [place] [address], [place] [address] Apr, [facility] [address] [id number] [address] [place] [address], [place] [address] Apr, [facility] [address] [id number] [address] [place] [address], [place] [address] Apr, [facility] [address] [id number] [address] [place] [address], [place] [address] Apr, [facility] [address] [id number] [address] [place] [address] Apr, [facility] [address] [id number] [address] [place] [address], [place] [address] Apr, [facility] [address] [id number] [address] [place] [address], [place] [address] Apr, [facility] [address] [id number] [address] [place] [address], [place] [address] Mar, [facility] [address] [id number] [address] [place] [address], [place] [address] Mar, [facility] [address] [id number] [address] [place] [address], [place] [address] Mar, [facility] [address] [id number] [address] [place] [address], [place] [address] Mar, [facility] [address] [id number] [address] [place] [address], [place] [address] Mar, [facility] [address] [id number] [address] [place] [address], [place] [address] Mar, [facility] [address] [id number] [address] [place] [address], [place] [address] Mar, [facility] [address] [id number] [address] [place] [address], [place] [address] Mar, [facility] [address] [id number] [address] [place] [address], [place] [address] Mar, [facility] [address] [id number] [address] [place] [address], [place] [address] Feb, [facility] [address] [id number] [address] [place] [address], [place] [address] Jan, [facility] [address] [id number] [address] [place] [address], [place] [address] Jan, [facility] [address] [id number] [address] [place] [address], [place] [address] Jan, [facility] [address] [id number] [address] [place] [address], [place] [address] Dec, [facility] [address] [id number] [address] [place] [address], [place] [address] Dec, [facility] [address] [id number] [address] [place] [address], [place] [address] Dec, [facility] [address] [id number] [address] [place] [address], [place] [address] Nov, [facility] [address] [id number] [address] [place] [address], [place] [address] October, [facility] [address] [id number] [address] [place] [address], [place] [address] October, [facility] [address] [id number] [address] [place] [address], [place] [address] October, [facility] [address] [id number] [address] [place] [address], [place] [address] October, [facility] [address] [id number] [address] [place] [address], [place] [address] October, [facility] [address] [id number] [address] [place] [address], [place] [address] Sep, [facility] [address] [id number] [address] [place] [address], [place] [address] Sep, [facility] [address] [id number] [address] [place] [address], [place] [address] Sep, [facility] [address] [id number] [address] [place] [address], [place] [address] Sep, [facility] [address] [id number] [address] [place] [address], [place] [address] Sep, [facility] [address] [id number] [address] [place] [address], [place] [address] Sep, [facility] [address] [id number] [address] [place] [address], [place] [address] Sep, [facility] [address] [id number] [address] [place] [address], [place] [address] Aug, [facility] [address] [id number] [address] [place] [address], [place] [address] Aug, [facility] [address] [id number] [address] [place] [address], [place] [address] Aug, [facility] [address] [id number] [address] [place] [address], [place] [address] 21 Aug, 2011 [facility] [address] [id number] [address] [place] [address], [place] [address] 20 Aug, 2011 [facility] [address] [id number] [address] [place] [address], [place] [address] 19 Aug, 2011 [facility] [address] [id number] [address] [place] [address], [place] [address] 16 Aug, 2011 [facility] [address] [id number] [address] [place] [address], [place] [address] 15 Aug, 2011 [facility] [address] [id number] [address] [place] [address], [place] [address] 15 Aug, 2011 [facility] [address] [id number] [address] [place] [address], [place] [id number] 14 Aug, 2011 [facility] [address] [id number] [address] [place] [address], [place] [address] 12 Aug, 2011 [facility] [address] [id number] [address] [place] [address], [place] [address] 08 Aug, 2011 [facility] [address] [id number] [address] [place] [address], [place] [address] 15 Jul, 2011 [facility] [address] [id number] [address] [place] [address], [place] [address] 15 Jul, 2011 [facility] [address] [id number] [address] [place] [address], [place] [address] 14 Jul, 2011 [facility] [address] [id number] [address] [place] [address], [place] [address] 06 Jul, 2011 [facility] [address] [id number] [address] [place] [address], [place] [address] 02 Jul, 2011 [facility] [address] [id number] [address] [place] [address], [place] [address] 18 Jun, 2011 [facility] [address] [id number] [address] [place] [address], [place] [address] Jun, [facility] [address] [id number] [address] [place] [address], [place] [address] Jun, [facility] [address] [id number] [address] [place] [address], [place] [address] May, [facility] [address] [id number] [address] [place] [address], [place] [id number] May, [facility] [address] [id number] [address] [place] [address], [place] [id number] May, [facility] [address] [id number] [address] [place] [address], [place] [id number] May, [facility] [address] [id number] [address] [place] [address], [place] [id number] May, [facility] [address] [id number] [address] [place] [address], [place] [id number] 16 Apr, 2011 [facility] [address] [id number] [address] [place] [address], [place] [id number] 16 Apr, 2011 [facility] [address] [id number] [address] [place] [address], [place] [id number] 15 Apr, 2011 [facility] [address] [id number] [address] [place] [address], [place] [id number] 14 Apr, 2011 [facility] [address] [id number] [address] [place] [address], [place] [id number] 25 Mar, 2011 [facility] [address] [id number] [address] [place] [address], [place] [id number] 24 Mar, 2011 [facility] [address] [id number] [address] [place] [address], [place] [id number] Mar, [facility] [address] [id number] [address] [place] [address], [place] [id number] 19 Mar, 2011 [facility] [address] [id number] [address] [place] [address], [place] [id number] 17 Mar, 2011 [facility] [address] [id number] [address] [place] [id number] 17 Mar, 2011 [facility] [address] [id number] [address] [place] [id number] 16 Feb, 2011 [facility] [address] [id number] [address] [place] [phone] Nov, [facility] [address] [id number] [address] [place] [phone] Aug, [facility] [address] [id number] [address] [place] [id number] Apr, [facility] [address] [id number] [address] [place] [id number] Mar, [facility] [address] [id number] [address] [place] [phone] Apr, [facility] [address] [facility] [id number] [address] [place] [id number] Apr, [facility] [address] [id number] [address] [place] [phone] Sep, [facility] [address] [id number] [address] [place] [id number] Mar, IMMUNIZATIONS No Known Immunizations SOCIAL HISTORY Never Assessed REASON FOR VISIT PLAN OF CARE VITAL SIGNS MEDICATIONS Unknown [...] ER for Kidney pain/Stones 06/19/18 Hospitalization History [facility] X4 days 9
--- OUTSIDE RECORDS SUMMARY | 2019-12-26 10:52 | XMS REPORT ---
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 Jan, [facility] [address] [id number] [address] [place] [address], [place] [address] Jan, [facility] [address] [id number] [address] [place] [address], [place] [address] Jan, [facility] [address] [id number] [address] [place] [address], [place] [address] Dec, [facility] [address] [id number] [address] [place] [address], [place] [address] Dec, [facility] [address] [id number] [address] [place] [address], [place] [address] Dec, [facility] [address] [id number] [address] [place] [address], [place] [address] Dec, [facility] [address] [id number] [address] [place] [address], [place] [address] Nov, [facility] [address] [id number] [address] [place] [address], [place] [address] Nov, [facility] [address] [id number] [address] [place] [address], [place] [address] Nov, [facility] [address] [id number] [address] [place] [address] [address] Nov, [facility] [address] [id number] [address] [place] [address], [place] [address] October, [facility] [address] [id number] [address] [place] [address], [place] [address] October, [facility] [address] [id number] [address] [place] [address], [place] [address] Sep, [facility] [address] [id number] [address] [place] [address], [place] [address] Sep, [facility] [address] [id number] [address] [place] [address], [place] [address] Sep, [facility] [address] [id number] [address] [place] [address], [place] [address] Sep, [facility] [address] [id number] [address] [place] [address], [place] [address] Sep, [facility] [address] [id number] [address] [place] [address], [place] [address] Sep, [facility] [address] [id number] [address] [place] [address], [place] [address] Sep, [facility] [address] [id number] [address] [place] [address], [place] [address] Sep, [facility] [address] [id number] [address] [place] [address], [place] [address] Sep, [facility] [address] [id number] [address] [place] [address], [place] [address] Sep, [facility] [address] [id number] [address] [place] [address], [place] [address] Jul, [facility] [address] [id number] [address] [place] [address], [place] [address] Jul, [facility] [address] [id number] [address] [place] [address], [place] [address] Jul, [facility] [address] [id number] [address] [place] [address], [place] [address] Jul, [facility] [address] [id number] [address] [place] [address], [place] [address] Jun, [facility] [address] [id number] [address] [place] [address], [place] [address] Jun, [facility] [address] [id number] [address] [place] [address], [place] [address] Jun, [facility] [address] [id number] [address] [place] [address], [place] [address] Jun, [facility] [address] [id number] [address] [place] [address], [place] [address] Jun, [facility] [address] [id number] [address] [place] [address], [place] [address] Jun, [facility] [address] [id number] [address] [place] [address], [place] [address] Apr, [facility] [address] [id number] [address] [place] [address], [place] [address] Apr, [facility] [address] [id number] [address] [place] [address], [place] [address] Apr, [facility] [address] [id number] [address] [place] [address], [place] [address] Apr, [facility] [address] [id number] [address] [place] [address], [place] [address] Apr, [facility] [address] [id number] [address] [place] [address], [place] [address] Apr, [facility] [address] [id number] [address] [place] [address], [place] [address] Apr, [facility] [address] [id number] [address] [place] [address], [place] [address] Apr, [facility] [address] [id number] [address] [place] [address], [place] [address] Mar, [facility] [address] [id number] [address] [place] [address], [place] [address] Mar, [facility] [address] [id number] [address] [place] [address], [place] [address] Feb, [facility] [address] [id number] [address] [place] [address], [place] [address] Feb, [facility] [address] [id number] [address] [place] [address], [place] [address] Dec, [facility] [address] [id number] [address] [place] [address], [place] [address] Dec, [facility] [address] [id number] [address] [place] [address], [place] [address] Dec, [facility] [address] [id number] [address] [place] [address], [place] [address] Dec, [facility] [address] [id number] [address] [place] [address], [place] [address] Dec, [facility] [address] [id number] [address] [place] [address], [place] [address] Dec, [facility] [address] [id number] [address] [place] [address], [place] [address] Dec, [facility] [address] [id number] [address] [place] [address], [place] [address] Nov, [facility] [address] [id number] [address] [place] [address], [place] [address] Nov, [facility] [address] [id number] [address] [place] [address], [place] [address] Nov, [facility] [address] [id number] [address] [place] [address], [place] [address] Nov, [facility] [address] [id number] [address] [place] [address], [place] [address] October, [facility] [address] [id number] [address] [place] [address] October, [facility] [address] [id number] [address] [place] [address], [place] [address] October, [facility] [address] [id number] [address] [place] [address], [place] [address] October, [facility] [address] [id number] [address] [place] [address], [place] [address] Sep, [facility] [address] [id number] [address] [place] [address], [place] [address] Aug, [facility] [address] [id number] [address] [place] [address], [place] [address] Aug, [facility] [address] [id number] [address] [place] [address], [place] [address] Aug, [facility] [address] [id number] [address] [place] [address], [place] [address] Aug, [facility] [address] [id number] [address] [place] [address], [place] [address] Aug, [facility] [address] [id number] [address] [place] [address], [place] [address] Jul, [facility] [address] [id number] [address] [place] [address], [place] [address] Jul, [facility] [address] [id number] [address] [place] [address], [place] [address] Jul, [facility] [address] [id number] [address] [place] [address], [place] [address] Jul, [facility] [address] [id number] [address] [place] [address], [place] [address] Jul, [facility] [address] [id number] [address] [place] [address], [place] [address] 23 Jul, 2012 [facility] [address] [id number] [address] [place] [address], [place] [address] 20 Jul, 2012 [facility] [address] [id number] [address] [place] [address], [place] [address] 15 Jul, 2012 [facility] [address] [id number] [address] [place] [address], [place] [address] 14 Jul, 2012 [facility] [address] [id number] [address] [place] [address], [place] [address] 11 Jul, 2012 [facility] [address] [id number] [address] [place] [address], [place] [address] Jun, [facility] [address] [id number] [address] [place] [address], [place] [address] Jun, [facility] [address] [id number] [address] [place] [address], [place] [address] Jun, [facility] [address] [id number] [address] [place] [address], [place] [address] May, [facility] [address] [id number] [address] [place] [address], [place] [address] May, [facility] [address] [id number] [address] [place] [address], [place] [address] Apr, [facility] [address] [id number] [address] [place] [address], [place] [address] Apr, [facility] [address] [id number] [address] [place] [address], [place] [address] Apr, [facility] [address] [id number] [address] [place] [address], [place] [address] Apr, [facility] [address] [id number] [address] [place] [address], [place] [address] Apr, [facility] [address] [id number] [address] [place] [address], [place] [address] Apr, [facility] [address] [id number] [address] [place] [address], [place] [address] Apr, [facility] [address] [id number] [address] [place] [address], [place] [address] Apr, [facility] [address] [id number] [address] [place] [address], [place] [address] Mar, [facility] [address] [id number] [address] [place] [address], [place] [address] Mar, [facility] [address] [id number] [address] [place] [address], [place] [address] Mar, [facility] [address] [id number] [address] [place] [address], [place] [address] Mar, [facility] [address] [id number] [address] [place] [address], [place] [address] Mar, [facility] [address] [id number] [address] [place] [address], [place] [address] Mar, [facility] [address] [id number] [address] [place] [address], [place] [address] Mar, [facility] [address] [id number] [address] [place] [address], [place] [address] Mar, [facility] [address] [id number] [address] [place] [address], [place] [address] Mar, [facility] [address] [id number] [address] [place] [address], [place] [address] Feb, [facility] [address] [id number] [address] [place] [address], [place] [address] Jan, [facility] [address] [id number] [address] [place] [address], [place] [address] Jan, [facility] [address] [id number] [address] [place] [address], [place] [address] Jan, [facility] [address] [id number] [address] [place] [address], [place] [address] Dec, [facility] [address] [id number] [address] [place] [address], [place] [address] Dec, [facility] [address] [id number] [address] [place] [address], [place] [address] Dec, [facility] [address] [id number] [address] [place] [address], [place] [address] Nov, [facility] [address] [id number] [address] [place] [address], [place] [address] October, [facility] [address] [id number] [address] [place] [address], [place] [address] October, [facility] [address] [id number] [address] [place] [address], [place] [address] October, [facility] [address] [id number] [address] [place] [address], [place] [address] October, [facility] [address] [id number] [address] [place] [address], [place] [address] October, [facility] [address] [id number] [address] [place] [address], [place] [address] Sep, [facility] [address] [id number] [address] [place] [address], [place] [address] Sep, [facility] [address] [id number] [address] [place] [address], [place] [address] Sep, [facility] [address] [id number] [address] [place] [address], [place] [address] Sep, [facility] [address] [id number] [address] [place] [address], [place] [address] Sep, [facility] [address] [id number] [address] [place] [address], [place] [address] Sep, [facility] [address] [id number] [address] [place] [address], [place] [address] Sep, [facility] [facility] [address] [id number] [address] [place] [address], [place] [address] Aug, [facility] [address] [id number] [address] [place] [address], [place] [address] 23 Aug, 2011 [facility] [address] [id number] [facility] [address] 21 Aug, 2011 [facility] [address] [id number] [address] [place] [address], [place] [address] 21 Aug, 2011 [facility] [address] [id number] [address] [place] [address], [place] [address] 20 Aug, 2011 [facility] [address] [id number] [address] [place] [address], [place] [address] 19 Aug, 2011 [facility] [address] [id number] [address] [place] [address], [place] [address] 16 Aug, 2011 [facility] [address] [id number] [address] [place] [address], [place] [address] 15 Aug, 2011 [facility] [address] [id number] [address] [place] [address], [place] [address] 15 Aug, 2011 [facility] [address] [id number] [address] [place] [address], [place] [address] 14 Aug, 2011 [facility] [address] [id number] [address] [place] [address], [place] [address] 12 Aug, 2011 [facility] [address] [id number] [address] [place] [address], [place] [address] 08 Aug, 2011 [facility] [address] [id number] [address] [place] [address], [place] [address] 15 Jul, 2011 [facility] [address] [id number] [address] [place] [address], [place] [address] 15 Jul, 2011 [facility] [address] [id number] [address] [place] [address], [place] [address] 14 Jul, 2011 [facility] [address] [id number] [address] [place] [address], [place] [address] 06 Jul, 2011 [facility] [address] [id number] [address] [place] [address], [place] [address] 02 Jul, 2011 [facility] [address] [id number] [address] [place] [address], [place] [address] Jun, [facility] [address] [id number] [address] [place] [address], [place] [address] Jun, [facility] [address] [id number] [address] [place] [address], [place] [address] Jun, [facility] [address] [id number] [address] [place] [address], [place] [address] 29 May, 2011 [facility] [address] [id number] [address] [place] [address], [place] [address] May, [facility] [address] [id number] [address] [place] [address], [place] [address] May, [facility] [address] [id number] [address] [place] [address], [place] [address] May, [facility] [address] [id number] [address] [place] [address], [place] [address] 14 May, 2011 [facility] [address] [id number] [address] [place] [address], [place] [address] 16 Apr, 2011 [facility] [address] [id number] [address] [place] [address], [place] [address] 16 Apr, 2011 [facility] [address] [id number] [address] [place] [address], [place] [address] 15 Apr, 2011 [facility] [address] [id number] [address] [place] [address], [place] [address] 14 Apr, 2011 [facility] [address] [id number] [address] [place] [address], [place] [address] Mar, [facility] [address] [id number] [address] [place] [address], [place] [address] Mar, [facility] [address] [id number] [address] [place] [address], [place] [address] Mar, [facility] [address] [id number] [address] [place] [address], [place] [address] Mar, [facility] [address] [id number] [address] [place] [address] Mar, [facility] [address] [id number] [address] [place] [address] Mar, [facility] [address] [id number] [address] [place] [address] Feb, [facility] [address] [id number] [address] [place] [address] Nov, [facility] [address] [id number] [address] [place] [address] Aug, [facility] [address] [id number] [address] [place] [address] Apr, [facility] [address] [id number] [address] [place] [address] Mar, [facility] [address] [id number] [address] [place] [address] Apr, [facility] [address] [id number] [address] [place] [address] Apr, [facility] [address] [id number] [address] [place] [address] Sep, [facility] [address] [id number] [address] [place] [address] Mar, IMMUNIZATIONS No Known Immunizations SOCIAL HISTORY Never Assessed REASON FOR VISIT Hospital F/U was in [place] for UTI, Still having pain in side and burning with urination---chris anderson PLAN OF CARE VITAL SIGNS Height 63 in 2018-09-06 Weight 253.6 lbs 2018-09-06 Temperature 96.9 degrees Fahrenheit 2018-09-06 Heart Rate 96 bpm 2018-09-06 Respiratory Rate 20 2018-09-06 Oximetry 95 % 2018-09-06 BMI 44.92 kg/m2 2018-09-06 Blood pressure systolic 128 mmHg 2018-09-06 Blood pressure diastolic 76 mmHg 2018-09-06 MEDICATIONS Medication Instructions Dosage Frequency Start Date End Date Duration S loren MetFORMIN HCl ER 500 mg Orally twice a day 2 tablets 12h Jan, 8 30 days Active Spironolactone 50 MG Orally Once a day 1 tablet with food 24h Nov, 90 days Active Zofran ODT 4 MG Orally every 8 hrs 1 tablet on the tongue and al low to dissolve 8h Feb, Active Naproxen 500 MG Orally 2 times a day 1 tablet with food or milk as needed 12h Apr, Active Actos 30 MG Orally Once a day 1/2 tablet 24h Feb, Active Cymbalta 60 mg Orally Once a day 1 capsule 24h 30 da ys Active Ondansetron HCl 8 MG Orally every 8 hours, PRN 1 tablet Jun, 3 days Active Reglan 10 mg Orally 2 times a day, prn nausea 1 tablet Dec, 018 Active Glucocard Expression Monitor w/Device as directed Aug Active Ventolin HFA 108 (90 Base) MCG/ACT Inhalation every 6 hrs 2 puffs a s needed 6h Jul, Active Micardis 20 mg Orally Once a day 1 tablet by Oral route 1 time per day 24h 15 Jun, 2014 30 days Active Pantoprazole Sodium 40 mg Orally Once a day 1 tablet 24h May, 7 90 days Active Wheelchair 1 use as needed for acitivity assistance 2016 Active Albuterol Sulfate (2.5 MG/3ML) 0.083% Inhalation Three times a day 3 ml 8h Aug, Active Mirtazapine 15 MG Orally Once a day 1 tablet at bedtime 24h Active Keflex 500 mg Orally 3 times a day 1 capsule 8h Sep, 10 day(s) Active Propranolol HCl 60 MG Orally Twice a day 1 tablet 12h October, 90 days Active Walker Moosic Wheels - with bench seat. DX: fibromyalgia, uns teady gait as directed Jan, Active Crestor 10 mg Orally Once a day 1 tablet 24h Feb, 90 days Active Glucocard Expression Test - test blood sugar Aug, 7 Active RESULTS Name Result Date Reference Range UA LONG DIP (IN HOUSE) 2018-09-06 Lot # [id number] Exp date 2019-03-07 Clarity cloudy Color yellow Odor none GLU negative JORGE negative KET 1+ SG 1.010 BLO trace pH 9.0 Protein 2+ URO 0.2 NIT negative LIZABETH 1+ Lot # Exp date PROCEDURES Procedure Date Ordered Result Body Site URINALYSIS, AUTO, W/O SCOPE September 06, 2018 INSTRUCTIONS MEDICATIONS ADMINISTERED No Known Medications [...] ER for Kidney pain/Stones 06/19/18 Hospitalization History [facility] X4 days 9
--- OUTSIDE RECORDS SUMMARY | 2019-12-26 10:53 | XMS REPORT ---
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 [facility] [address] [id number] [address] [place] [address], [place] [address] Sep, [facility] [address] [id number] [address] [place] [address], [place] [address] Sep, [facility] [address] [id number] [address] [place] [address], [place] [address] Sep, [facility] [address] [id number] [address] [place] [address], [place] [address] Sep, [facility] [address] [id number] [address] [place] [address], [place] [address] Sep, [facility] [address] [id number] [address] [place] [address], [place] [address] Sep, [facility] [address] [id number] [address] [place] [address], [place] [address] Jul, [facility] [address] [id number] [address] [place] [address], [place] [address] Jul, [facility] [address] [id number] [address] [place] [address], [place] [address] Jul, [facility] [address] [id number] [address] [place] [address], [place] [address] Jul, [facility] [address] [id number] [address] [place] [address], [place] [address] Jun, [facility] [address] [id number] [address] [place] [address], [place] [address] Jun, [facility] [address] [id number] [address] [place] [address], [place] [address] Jun, [facility] [address] [id number] [address] [place] [address], [place] [address] Jun, [facility] [address] [id number] [address] [place] [address], [place] [address] Jun, [facility] [address] [id number] [address] [place] [address], [place] [address] Jun, [facility] [address] [id number] [address] [place] [address], [place] [address] Apr, [facility] [address] [id number] [address] [place] [address], [place] [address] Apr, [facility] [address] [id number] [address] [place] [address], [place] [address] Apr, [facility] [address] [id number] [address] [place] [address], [place] [address] Apr, [facility] [address] [id number] [address] [place] [address], [place] [address] Apr, [facility] [address] [id number] [address] [place] [address], [place] [address] Apr, [facility] [address] [id number] [address] [place] [address], [place] [address] Apr, [facility] [address] [id number] [address] [place] [address], [place] [address] Apr, [facility] [address] [id number] [address] [place] [address], [place] [address] Mar, [facility] [address] [id number] [address] [place] [address], [place] [address] Mar, [facility] [address] [id number] [address] [place] [address], [place] [address] Feb, [facility] [address] [id number] [address] [place] [address], [place] [address] Feb, [facility] [address] [id number] [address] [place] [address], [place] [address] Dec, [facility] [address] [id number] [address] [place] [address], [place] [address] Dec, [facility] [address] [id number] [address] [place] [address], [place] [address] Dec, [facility] [address] [id number] [address] [place] [address], [place] [address] Dec, [facility] [address] [id number] [address] [place] [address], [place] [address] Dec, [facility] [address] [id number] [address] [place] [address], [place] [address] Dec, [facility] [address] [id number] [address] [place] [address], [place] [address] Dec, [facility] [address] [id number] [address] [place] [address], [place] [address] Nov, [facility] [address] [id number] [address] [place] [address], [place] [address] Nov, [facility] [address] [id number] [address] [place] [address], [place] [address] Nov, [facility] [address] [id number] [address] [place] [address], [place] [address] Nov, [facility] [address] [id number] [address] [place] [address], [place] [address] October, [facility] [address] [id number] [address] [place] [address], [place] [address] October, [facility] [address] [id number] [address] [place] [address], [place] [address] October, [facility] [address] [id number] [address] [place] [address], [place] [address] October, [facility] [address] [id number] [address] [place] [address], [place] [address] Sep, [facility] [address] [id number] [address] [place] [address], [place] [address] Aug, [facility] [address] [id number] [address] [place] [address], [place] [address] Aug, [facility] [address] [id number] [address] [place] [address], [place] [address] Aug, [facility] [address] [id number] [address] [place] [address], [place] [address] Aug, [facility] [address] [id number] [address] [place] [address], [place] [address] Aug, [facility] [address] [id number] [address] [place] [address], [place] [address] Jul, [facility] [address] [id number] [address] [place] [address], [place] [address] Jul, [facility] [address] [id number] [address] [place] [address], [place] [address] Jul, [facility] [address] [id number] [address] [place] [address], [place] [address] Jul, [facility] [address] [id number] [address] [place] [address], [place] [address] Jul, [facility] [address] [id number] [address] [place] [address], [place] [address] Jul, [facility] [address] [id number] [address] [place] [address], [place] [address] 20 Jul, 2012 [facility] [address] [id number] [address] [place] [address], [place] [address] 15 Jul, 2012 [facility] [address] [id number] [address] [place] [address], [place] [address] 14 Jul, 2012 [facility] [address] [id number] [address] [place] [address], [place] [address] Jul, [facility] [address] [id number] [address] [place] [address], [place] [address] Jun, [facility] [address] [id number] [address] [place] [address], [place] [address] Jun, [facility] [address] [id number] [address] [place] [address], [place] [address] Jun, [facility] [address] [id number] [address] [place] [address], [place] [address] May, [facility] [address] [id number] [address] [place] [address], [place] [address] May, [facility] [address] [id number] [address] [place] [address], [place] [address] Apr, [facility] [address] [id number] [address] [place] [address], [place] [address] Apr, [facility] [address] [id number] [address] [place] [address], [place] [address] Apr, [facility] [address] [id number] [address] [place] [address], [place] [address] Apr, [facility] [address] [id number] [address] [place] [address], [place] [address] Apr, [facility] [address] [id number] [address] [place] [address], [place] [address] Apr, [facility] [address] [id number] [address] [place] [address], [place] [address] Apr, [facility] [address] [id number] [address] [place] [address], [place] [address] Apr, [facility] [address] [id number] [address] [place] [address], [place] [address] Mar, [facility] [address] [id number] [address] [place] [address], [place] [address] Mar, [facility] [address] [id number] [address] [place] [address], [place] [address] Mar, [facility] [address] [id number] [address] [place] [address], [place] [address] Mar, [facility] [address] [id number] [address] [place] [address], [place] [address] Mar, [facility] [address] [id number] [address] [place] [address], [place] [address] Mar, [facility] [address] [id number] [address] [place] [address], [place] [address] Mar, [facility] [address] [id number] [address] [place] [address], [place] [address] Mar, [facility] [address] [id number] [address] [place] [address], [place] [address] Mar, [facility] [address] [id number] [address] [place] [address], [place] [address] Feb, [facility] [address] [id number] [address] [place] [address], [place] [address] Jan, [facility] [address] [id number] [address] [place] [address], [place] [address] Jan, [facility] [address] [id number] [address] [place] [address], [place] [address] Jan, [facility] [address] [id number] [address] [place] [address], [place] [address] Dec, [facility] [address] [id number] [address] [place] [address], [place] [address] Dec, [facility] [address] [id number] [address] [place] [address], [place] [address] Dec, [facility] [address] [id number] [address] [place] [address], [place] [address] Nov, [facility] [address] [id number] [address] [place] [address], [place] [address] October, [facility] [address] [id number] [address] [place] [address], [place] [address] October, [facility] [address] [id number] [address] [place] [address], [place] [address] October, [facility] [address] [id number] [address] [place] [address], [place] [address] October, [facility] [address] [id number] [address] [place] [address], [place] [address] October, [facility] [address] [id number] [address] [place] [address], [place] [address] Sep, [facility] [address] [id number] [address] [place] [address], [place] [address] Sep, [facility] [address] [id number] [address] [place] [address], [place] [address] Sep, [facility] [address] [id number] [address] [place] [address], [place] [address] Sep, [facility] [address] [id number] [address] [place] [address], [place] [address] Sep, [facility] [address] [id number] [address] [place] [address], [place] [address] Sep, [facility] [address] [id number] [address] [place] [address], [place] [address] 11 Sep, 2011 [facility] [address] [id number] [address] [place] [address], [place] [address] 28 Aug, 2011 [facility] [address] [id number] [address] [place] [address], [place] [address] 23 Aug, 2011 [facility] [address] [id number] [address] [place] [address], [place] [address] 21 Aug, 2011 [facility] [address] [id number] [address] [place] [address], [place] [address] 21 Aug, 2011 [facility] [address] [id number] [address] [place] [address], [place] [address] 20 Aug, 2011 [facility] [address] [id number] [address] [place] [address], [place] [address] 19 Aug, 2011 [facility] [address] [id number] [address] [place] [address], [place] [address] 16 Aug, 2011 [facility] [address] [id number] [address] [place] [address], [place] [address] 15 Aug, 2011 [facility] [address] [id number] [address] [place] [address], [place] [address] 15 Aug, 2011 [facility] [address] [id number] [address] [place] [address], [place] [address] 14 Aug, 2011 [facility] [address] [id number] [address] [place] [address], [place] [address] 12 Aug, 2011 [facility] [address] [id number] [address] [place] [address], [place] [address] 08 Aug, 2011 [facility] [address] [id number] [address] [place] [address], [place] [address] 15 Jul, 2011 [facility] [address] [id number] [address] [place] [address], [place] [address] 15 Jul, 2011 [facility] [address] [id number] [address] [place] [address], [place] [address] 14 Jul, 2011 [facility] [address] [id number] [address] [place] [address], [place] [address] 06 Jul, 2011 [facility] [address] [id number] [address] [place] [address], [place] [address] Jul, [facility] [address] [id number] [address] [place] [address], [place] [address] Jun, [facility] [address] [id number] [address] [place] [address], [place] [address] Jun, [facility] [address] [id number] [address] [place] [address], [place] [address] Jun, [facility] [address] [id number] [address] [place] [address], [place] [address] May, [facility] [address] [id number] [address] [place] [address], [place] [address] May, [facility] [address] [id number] [address] [place] [address], [place] [address] May, [facility] [address] [id number] [address] [place] [address], [place] [address] May, [facility] [address] [id number] [address] [place] [address], [place] [address] May, [facility] [address] [id number] [address] [place] [address], [place] [address] 16 Apr, 2011 [facility] [address] [id number] [address] [place] [address] 16 Apr, 2011 [facility] [address] [id number] [address] [place] [address], [place] [address] 15 Apr, 2011 [facility] [address] [id number] [address] [place] [address], [place] [address] 14 Apr, 2011 [facility] [address] [id number] [address] [place] [address], [place] [address] 25 Mar, 2011 [facility] [address] [id number] [address] [place] [address] Mar, [facility] [address] [id number] [address] [place] [address] Mar, [facility] [address] [id number] [address] [place] [address] Mar, [facility] [address] [id number] [address] [place] [address] Mar, [facility] [address] [address] [id number] [address] [place] [id number] Mar, [facility] [address] [id number] [address] [place] [id number] Feb, [facility] [address] [id number] [address] [place] [id number] Nov, [facility] [address] [id number] [address] [place] [id number] Aug, [facility] [address] [id number] [address] [place] [phone] Apr, [facility] [address] [id number] [address] [place] [id number] Mar, [facility] [address] [id number] [address] [place] [id number] Apr, [facility] [address] [id number] [address] [place] [phone] Apr, [facility] [address] [id number] [address] [place] [id number] Sep, [facility] [address] [id number] [address] [place] [id number] Mar, IMMUNIZATIONS No Known Immunizations SOCIAL HISTORY [...] ER for Kidney pain/Stones 06/19/18 Hospitalization History [facility] X4 days 9
--- OUTSIDE RECORDS SUMMARY | 2019-12-26 10:53 | XMS REPORT ---
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 [facility] [address] [id number] [address] [place] [address], [place] [address] Sep, [facility] [address] [id number] [address] [place] [address], [place] [address] Sep, [facility] [address] [id number] [address] [place] [address], [place] [address] Sep, [facility] [address] [id number] [address] [place] [address], [place] [address] Sep, [facility] [address] [id number] [address] [place] [address], [place] [address] Sep, [facility] [address] [id number] [address] [place] [address], [place] [address] Sep, [facility] [address] [id number] [address] [place] [address], [place] [address] Sep, [facility] [address] [id number] [address] [place] [address], [place] [address] Sep, [facility] [address] [id number] [address] [place] [address], [place] [address] Sep, [facility] [address] [id number] [address] [place] [address], [place] [address] Sep, [facility] [address] [id number] [address] [place] [address], [place] [address] Jul, [facility] [address] [id number] [address] [place] [address], [place] [address] Jul, [facility] [address] [id number] [address] [place] [address], [place] [address] Jul, [facility] [address] [id number] [address] [place] [address], [place] [address] Jul, [facility] [address] [id number] [address] [place] [address], [place] [address] Jun, [facility] [address] [id number] [address] [place] [address], [place] [address] Jun, [facility] [address] [id number] [address] [place] [address], [place] [address] Jun, [facility] [address] [id number] [address] [place] [address], [place] [address] 15 Jun, 2013 [facility] [address] [id number] [address] [place] [address], [place] [address] Jun, [facility] [address] [id number] [address] [place] [address], [place] [address] Jun, [facility] [address] [id number] [address] [place] [address], [place] [address] Apr, [facility] [address] [id number] [address] [place] [address], [place] [address] Apr, [facility] [address] [id number] [address] [place] [address], [place] [address] Apr, [facility] [address] [id number] [address] [place] [address], [place] [address] Apr, [facility] [address] [id number] [address] [place] [address], [place] [address] Apr, [facility] [address] [id number] [address] [place] [address], [place] [address] Apr, [facility] [address] [id number] [address] [place] [address], [place] [address] Apr, [facility] [address] [id number] [address] [place] [address], [place] [address] Apr, [facility] [address] [id number] [address] [place] [address], [place] [address] Mar, [facility] [address] [id number] [address] [place] [address], [place] [address] Mar, [facility] [address] [id number] [address] [place] [address], [place] [address] Feb, [facility] [address] [id number] [address] [place] [address], [place] [address] Feb, [facility] [address] [id number] [address] [place] [address], [place] [address] Dec, [facility] [address] [id number] [address] [place] [address], [place] [address] Dec, [facility] [address] [id number] [address] [place] [address], [place] [address] Dec, [facility] [address] [id number] [address] [place] [address], [place] [address] Dec, [facility] [address] [id number] [address] [place] [address], [place] [address] Dec, [facility] [address] [id number] [address] [place] [address], [place] [address] Dec, [facility] [address] [id number] [address] [place] [address], [place] [address] Dec, [facility] [address] [id number] [address] [place] [address], [place] [address] Nov, [facility] [address] [id number] [address] [place] [address], [place] [address] Nov, [facility] [address] [id number] [address] [place] [address], [place] [address] Nov, [facility] [address] [id number] [address] [place] [address], [place] [address] Nov, [facility] [address] [id number] [address] [place] [address], [place] [address] October, [facility] [address] [id number] [address] [place] [address], [place] [address] October, [facility] [address] [id number] [address] [place] [address], [place] [address] October, [facility] [address] [id number] [address] [place] [address], [place] [address] October, [facility] [address] [id number] [address] [place] [address], [place] [address] Sep, [facility] [address] [id number] [address] [place] [address], [place] [address] 30 Aug, 2012 [facility] [address] [id number] [address] [place] [address], [place] [address] 29 Aug, 2012 [facility] [address] [id number] [address] [place] [address], [place] [address] 22 Aug, 2012 [facility] [address] [id number] [address] [place] [address], [place] [address] 21 Aug, 2012 [facility] [address] [id number] [address] [place] [address], [place] [address] 13 Aug, 2012 [facility] [address] [id number] [address] [place] [address], [place] [address] 27 Jul, 2012 [facility] [address] [id number] [address] [place] [address], [place] [address] 27 Jul, 2012 [facility] [address] [id number] [address] [place] [address], [place] [address] 26 Jul, 2012 [facility] [address] [id number] [address] [place] [address], [place] [address] 25 Jul, 2012 [facility] [address] [id number] [address] [place] [address], [place] [address] 25 Jul, 2012 [facility] [address] [id number] [address] [place] [address], [place] [address] 23 Jul, 2012 [facility] [address] [id number] [address] [place] [address], [place] [address] 20 Jul, 2012 [facility] [address] [id number] [address] [place] [address], [place] [address] 15 Jul, 2012 [facility] [address] [id number] [address] [place] [address], [place] [address] 14 Jul, 2012 [facility] [address] [id number] [address] [place] [address], [place] [address] 11 Jul, 2012 [facility] [address] [id number] [address] [place] [address], [place] [address] Jun, [facility] [address] [id number] [address] [place] [address], [place] [address] Jun, [facility] [address] [id number] [address] [place] [address], [place] [address] Jun, [facility] [address] [id number] [address] [place] [address], [place] [address] May, [facility] [address] [id number] [address] [place] [address], [place] [address] May, [facility] [address] [id number] [address] [place] [address], [place] [address] Apr, [facility] [address] [id number] [address] [place] [address], [place] [address] Apr, [facility] [address] [id number] [address] [place] [address], [place] [address] Apr, [facility] [address] [id number] [address] [place] [address], [place] [address] Apr, [facility] [address] [id number] [address] [place] [address], [place] [address] Apr, [facility] [address] [id number] [address] [place] [address], [place] [address] Apr, [facility] [address] [id number] [address] [place] [address], [place] [address] Apr, [facility] [address] [id number] [address] [place] [address], [place] [address] Apr, [facility] [address] [id number] [address] [place] [address], [place] [address] Mar, [facility] [address] [id number] [address] [place] [address], [place] [address] Mar, [facility] [address] [id number] [address] [place] [address], [place] [address] Mar, [facility] [address] [id number] [address] [place] [address] [place] [address] 31 Mar, 2012 [facility] [address] [id number] [address] [place] [address], [place] [address] Mar, [facility] [address] [id number] [address] [place] [address], [place] [address] 15 Mar, 2012 [facility] [address] [id number] [address] [place] [address], [place] [address] Mar, [facility] [address] [id number] [address] [place] [address], [place] [address] Mar, [facility] [address] [id number] [address] [place] [address], [place] [address] Mar, [facility] [address] [id number] [address] [place] [address], [place] [address] Feb, [facility] [address] [id number] [address] [place] [address], [place] [address] Jan, [facility] [address] [id number] [address] [place] [address], [place] [address] Jan, [facility] [address] [id number] [address] [place] [address], [place] [address] Jan, [facility] [address] [id number] [address] [place] [address], [place] [address] Dec, [facility] [address] [id number] [address] [place] [address], [place] [address] Dec, [facility] [address] [id number] [address] [place] [address], [place] [address] Dec, [facility] [address] [id number] [address] [place] [address], [place] [address] Nov, [facility] [address] [id number] [address] [place] [address], [place] [address] October, [facility] [address] [id number] [address] [place] [address], [place] [address] October, [facility] [address] [id number] [facility] [place] [address] October, [facility] [address] [id number] [address] [place] [address], [place] [address] October, [facility] [address] [id number] [address] [place] [address], [place] [address] October, [facility] [address] [id number] [address] [place] [address], [place] [address] 30 Sep, 2011 [facility] [address] [id number] [address] [place] [address], [place] [address] Sep, [facility] [address] [id number] [address] [place] [address], [place] [address] Sep, [facility] [address] [id number] [address] [place] [address], [place] [address] Sep, [facility] [address] [id number] [address] [place] [address], [place] [address] Sep, [facility] [address] [id number] [address] [place] [address], [place] [address] Sep, [facility] [address] [id number] [address] [place] [address], [place] [address] Sep, [facility] [address] [id number] [address] [place] [address], [place] [address] Aug, [facility] [address] [id number] [address] [place] [address], [place] [address] Aug, [facility] [address] [id number] [address] [place] [address], [place] [address] Aug, [facility] [address] [id number] [address] [place] [address], [place] [address] Aug, [facility] [address] [id number] [address] [place] [address], [place] [address] 20 Aug, 2011 [facility] [address] [id number] [address] [place] [address], [place] [address] 19 Aug, 2011 [facility] [address] [id number] [address] [place] [address], [place] [address] 16 Aug, 2011 [facility] [address] [id number] [address] [place] [address], [place] [address] 15 Aug, 2011 [facility] [address] [id number] [address] [place] [address], [place] [address] 15 Aug, 2011 [facility] [address] [id number] [address] [place] [address], [place] [address] 14 Aug, 2011 [facility] [address] [id number] [address] [place] [address], [place] [address] 12 Aug, 2011 [facility] [address] [id number] [address] [place] [address], [place] [address] 08 Aug, 2011 [facility] [address] [id number] [address] [place] [address], [place] [address] 15 Jul, 2011 [facility] [address] [id number] [address] [place] [address], [place] [address] 15 Jul, 2011 [facility] [address] [id number] [address] [place] [address], [place] [address] 14 Jul, 2011 [facility] [address] [id number] [address] [place] [address], [place] [address] 06 Jul, 2011 [facility] [address] [id number] [address] [place] [address], [place] [address] 02 Jul, 2011 [facility] [address] [id number] [address] [place] [address], [place] [address] Jun, [facility] [address] [id number] [address] [place] [address], [place] [address] Jun, [facility] [facility] [address] [id number] [address] [place] [address], [place] [address] Jun, [facility] [address] [id number] [address] [place] [address], [place] [address] May, [facility] [address] [id number] [address] [place] [address], [place] [address] 21 May, 2011 [facility] [address] [id number] [address] [place] [address], [place] [address] 19 May, 2011 [facility] [address] [id number] [address] [place] [address], [place] [address] 19 May, 2011 [facility] [address] [id number] [address] [place] [address], [place] [address] 14 May, 2011 [facility] [address] [id number] [address] [place] [address], [place] [address] 16 Apr, 2011 [facility] [address] [id number] [address] [place] [address], [place] [address] 16 Apr, 2011 [facility] [address] [id number] [address] [place] [address], [place] [address] 15 Apr, 2011 [facility] [address] [id number] [address] [place] [address], [place] [address] 14 Apr, 2011 [facility] [address] [id number] [address] [place] [address], [place] [address] 25 Mar, 2011 [facility] [address] [id number] [address] [place] [address], [place] [address] 24 Mar, 2011 [facility] [address] [id number] [address] [place] [address], [place] [address] 19 Mar, 2011 [facility] [address] [id number] [address] [place] [address], [place] [address] 19 Mar, 2011 [facility] [address] [id number] [address] [place] [address], [place] [address] 17 Mar, 2011 [facility] [address] [id number] [address] [place] [address], [place] [address] 17 Mar, 2011 [facility] [address] [id number] [address] [place] [address], [place] [address] 16 Feb, 2011 [facility] [address] [id number] [address] [place] [address], [place] [address] Nov, [facility] [address] [id number] [address] [place] [id number] 17 Aug, 2010 [facility] [address] [id number] [address] [place] [phone] Apr, [facility] [address] [id number] [address] [place] [id number] 16 Mar, 2010 [facility] [address] [id number] [address] [place] [id number] Apr, [facility] [address] [id number] [address] [place] [id number] Apr, [facility] [address] [id number] [address] [place] [phone] Sep, [facility] [address] [facility] [id number] [address] [place] [id number] Mar, IMMUNIZATIONS No Known Immunizations SOCIAL HISTORY Never Assessed REASON FOR VISIT PLAN OF CARE VITAL SIGNS Blood pressure systolic 120 mmHg 2013-04-28 Blood pressure diastolic 72 mmHg 2013-04-28 MEDICATIONS Unknown Medications RESULTS No Results PROCEDURES [...] ER for Kidney pain/Stones 06/19/18 Hospitalization History [facility] X4 days 9
--- OUTSIDE RECORDS SUMMARY | 2019-12-26 10:54 | XMS REPORT ---
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 [address] [place] [address], [place] [address] Sep, [facility] [address] [id number] [address] [place] [address], [place] [address] Sep, [facility] [address] [id number] [address] [place] [address], [place] [address] Sep, [facility] [address] [id number] [address] [place] [address], [place] [address] Sep, [facility] [address] [id number] [address] [place] [address], [place] [address] Sep, [facility] [address] [id number] [address] [place] [address], [place] [address] Sep, [facility] [address] [id number] [address] [place] [address], [place] [address] Sep, [facility] [address] [id number] [address] [place] [address], [place] [address] Sep, [facility] [address] [id number] [address] [place] [address], [place] [address] Sep, [facility] [address] [id number] [address] [place] [address], [place] [address] Jul, [facility] [address] [id number] [address] [place] [address], [place] [address] Jul, [facility] [address] [id number] [address] [place] [address], [place] [address] Jul, [facility] [address] [id number] [address] [place] [address], [place] [address] Jul, [facility] [address] [id number] [address] [place] [address], [place] [address] Jun, [facility] [address] [id number] [address] [place] [address], [place] [address] Jun, [facility] [address] [id number] [address] [place] [address], [place] [address] Jun, [facility] [address] [id number] [address] [place] [address], [place] [address] Jun, [facility] [address] [id number] [address] [place] [address], [place] [address] Jun, [facility] [address] [id number] [address] [place] [address], [place] [address] Jun, [facility] [address] [id number] [address] [place] [address], [place] [address] Apr, [facility] [address] [id number] [address] [place] [address], [place] [address] Apr, [facility] [address] [id number] [address] [place] [address], [place] [address] Apr, [facility] [address] [id number] [address] [place] [address], [place] [address] Apr, [facility] [address] [id number] [address] [place] [address], [place] [address] Apr, [facility] [address] [id number] [address] [place] [address], [place] [address] Apr, [facility] [address] [id number] [address] [place] [address], [place] [address] Apr, [facility] [address] [id number] [address] [place] [address], [place] [address] Apr, [facility] [address] [id number] [address] [place] [address], [place] [address] Mar, [facility] [address] [id number] [address] [place] [address], [place] [address] Mar, [facility] [address] [id number] [address] [place] [address], [place] [address] Feb, [facility] [address] [id number] [address] [place] [address], [place] [address] Feb, [facility] [address] [id number] [address] [place] [address], [place] [address] Dec, [facility] [address] [id number] [address] [place] [address], [place] [address] Dec, [facility] [address] [id number] [address] [place] [address], [place] [address] Dec, [facility] [address] [id number] [address] [place] [address], [place] [address] Dec, [facility] [address] [id number] [address] [place] [address], [place] [address] Dec, [facility] [address] [id number] [address] [place] [address], [place] [address] Dec, [facility] [address] [id number] [address] [place] [address], [place] [address] Dec, [facility] [address] [id number] [address] [place] [address], [place] [address] Nov, [facility] [address] [id number] [address] [place] [address], [place] [address] Nov, [facility] [address] [id number] [address] [place] [address], [place] [address] Nov, [facility] [address] [id number] [address] [place] [address], [place] [address] Nov, [facility] [address] [id number] [address] [place] [address], [place] [address] October, [facility] [address] [id number] [address] [place] [address], [place] [address] October, [facility] [address] [id number] [address] [place] [address], [place] [address] October, [facility] [address] [id number] [address] [place] [address], [place] [address] October, [facility] [address] [id number] [address] [place] [address], [place] [address] Sep, [facility] [address] [id number] [address] [place] [address], [place] [address] Aug, [facility] [address] [id number] [address] [place] [address], [place] [address] Aug, [facility] [address] [id number] [address] [place] [address], [place] [address] Aug, [facility] [address] [id number] [address] [place] [address], [place] [address] Aug, [facility] [address] [id number] [address] [place] [address], [place] [address] Aug, [facility] [address] [id number] [address] [place] [address], [place] [address] Jul, [facility] [address] [id number] [address] [place] [address], [place] [address] Jul, [facility] [address] [id number] [address] [place] [address], [place] [address] Jul, [facility] [address] [id number] [address] [place] [address], [place] [address] Jul, [facility] [address] [id number] [address] [place] [address], [place] [address] Jul, [facility] [address] [id number] [address] [place] [address], [place] [address] Jul, [facility] [address] [id number] [address] [place] [address], [place] [address] 20 Jul, 2012 [facility] [address] [id number] [address] [place] [address], [place] [address] 15 Jul, 2012 [facility] [address] [id number] [address] [place] [address], [place] [address] 14 Jul, 2012 [facility] [address] [id number] [address] [place] [address], [place] [address] Jul, [facility] [address] [id number] [address] [place] [address], [place] [address] Jun, [facility] [address] [id number] [address] [place] [address], [place] [address] Jun, [facility] [address] [id number] [address] [place] [address], [place] [address] Jun, [facility] [address] [id number] [address] [place] [address], [place] [address] May, [facility] [address] [id number] [address] [place] [address], [place] [address] May, [facility] [address] [id number] [address] [place] [address], [place] [address] Apr, [facility] [address] [id number] [address] [place] [address], [place] [address] Apr, [facility] [address] [id number] [address] [place] [address], [place] [address] Apr, [facility] [address] [id number] [address] [place] [address], [place] [address] Apr, [facility] [address] [id number] [address] [place] [address], [place] [address] Apr, [facility] [address] [id number] [address] [place] [address], [place] [address] Apr, [facility] [address] [id number] [address] [place] [address], [place] [address] Apr, [facility] [address] [id number] [address] [place] [address], [place] [address] Apr, [facility] [address] [id number] [address] [place] [address], [place] [address] Mar, [facility] [address] [id number] [address] [place] [address], [place] [address] Mar, [facility] [address] [id number] [address] [place] [address], [place] [address] Mar, [facility] [address] [id number] [address] [place] [address], [place] [address] Mar, [facility] [address] [id number] [address] [place] [address], [place] [address] Mar, [facility] [address] [id number] [address] [place] [address], [place] [address] Mar, [facility] [address] [id number] [address] [place] [address], [place] [address] Mar, [facility] [address] [id number] [address] [place] [address], [place] [address] Mar, [facility] [address] [id number] [address] [place] [address], [place] [address] Mar, [facility] [address] [id number] [address] [place] [address], [place] [address] Feb, [facility] [address] [id number] [address] [place] [address], [place] [address] Jan, [facility] [address] [id number] [address] [place] [address], [place] [address] Jan, [facility] [address] [id number] [address] [place] [address], [place] [address] Jan, [facility] [address] [id number] [address] [place] [address], [place] [address] Dec, [facility] [address] [id number] [address] [place] [address], [place] [address] Dec, [facility] [address] [id number] [address] [place] [address], [place] [address] Dec, [facility] [address] [id number] [address] [place] [address], [place] [address] Nov, [facility] [address] [id number] [address] [place] [address], [place] [address] October, [facility] [address] [id number] [address] [place] [address], [place] [address] October, [facility] [address] [id number] [address] [place] [address], [place] [address] October, [facility] [address] [id number] [address] [place] [address], [place] [address] October, [facility] [address] [id number] [address] [place] [address], [place] [address] October, [facility] [address] [id number] [address] [place] [address], [place] [address] Sep, [facility] [address] [id number] [address] [place] [address], [place] [address] Sep, [facility] [address] [id number] [address] [place] [address], [place] [address] Sep, [facility] [address] [id number] [address] [place] [address], [place] [address] Sep, [facility] [address] [id number] [address] [place] [address], [place] [address] Sep, [facility] [address] [id number] [address] [place] [address], [place] [address] Sep, [facility] [address] [id number] [address] [place] [address], [place] [address] 11 Sep, 2011 [facility] [address] [id number] [address] [place] [address], [place] [address] 28 Aug, 2011 [facility] [address] [id number] [address] [place] [address], [place] [address] 23 Aug, 2011 [facility] [address] [id number] [address] [place] [address], [place] [address] 21 Aug, 2011 [facility] [address] [id number] [address] [place] [address], [place] [address] 21 Aug, 2011 [facility] [address] [id number] [address] [place] [address], [place] [address] 20 Aug, 2011 [facility] [address] [id number] [address] [place] [address], [place] [address] 19 Aug, 2011 [facility] [address] [id number] [address] [place] [address], [place] [address] 16 Aug, 2011 [facility] [address] [id number] [address] [place] [address], [place] [address] 15 Aug, 2011 [facility] [address] [id number] [address] [place] [address], [place] [address] 15 Aug, 2011 [facility] [address] [id number] [address] [place] [address], [place] [address] 14 Aug, 2011 [facility] [address] [id number] [address] [place] [address], [place] [address] 12 Aug, 2011 [facility] [address] [id number] [address] [place] [address], [place] [address] 08 Aug, 2011 [facility] [address] [id number] [address] [place] [address], [place] [address] 15 Jul, 2011 [facility] [address] [id number] [address] [place] [address], [place] [address] 15 Jul, 2011 [facility] [address] [id number] [address] [place] [address], [place] [address] 14 Jul, 2011 [facility] [address] [id number] [address] [place] [address], [place] [address] 06 Jul, 2011 [facility] [address] [id number] [address] [place] [address], [place] [address] Jul, [facility] [address] [id number] [address] [place] [address], [place] [address] Jun, [facility] [address] [id number] [address] [place] [address], [place] [address] Jun, [facility] [address] [id number] [address] [place] [address], [place] [phone] Jun, [facility] [address] [id number] [address] [place] [address], [place] [phone] May, [facility] [address] [id number] [address] [place] [address], [place] [phone] May, [facility] [address] [id number] [address] [place] [address], [place] [phone] May, [facility] [address] [id number] [address] [place] [address], [place] [phone] May, [facility] [address] [id number] [address] [place] [address], [place] [phone] May, [facility] [address] [id number] [address] [place] [address], [place] [id number] 16 Apr, 2011 [facility] [address] [id number] [address] [place] [phone] 16 Apr, 2011 [facility] [address] [id number] [address] [place] [address], [place] [id number] 15 Apr, 2011 [facility] [address] [id number] [address] [place] [address], [place] [id number] 14 Apr, 2011 [facility] [address] [id number] [address] [place] [address], [place] [phone] 25 Mar, 2011 [facility] [address] [id number] [address] [place] [phone] Mar, [facility] [address] [id number] [address] [place] [phone] Mar, [facility] [address] [id number] [address] [place] [id number] Mar, [facility] [address] [id number] [address] [place] [phone] Mar, [facility] [address] [id number] [address] [place] [phone] Mar, [facility] [address] [id number] [address] [place] [phone] Feb, [facility] [address] [id number] [address] [place] [phone] Nov, [facility] [address] [id number] [address] [place] [phone] Aug, [facility] [address] [id number] [address] [place] [phone] Apr, [facility] [address] [id number] [address] [place] [phone] Mar, [facility] [address] [id number] [address] [place] [id number] Apr, [facility] [address] [id number] [address] [place] [phone] Apr, [facility] [address] [id number] [address] [place] [phone] Sep, [facility] [address] [id number] [address] [place] [phone] Mar, IMMUNIZATIONS No Known Immunizations SOCIAL HISTORY [...] ER for Kidney pain/Stones 06/19/18 Hospitalization History [employer] [facility] [facility] 9
--- OUTSIDE RECORDS SUMMARY | 2019-12-26 10:54 | XMS REPORT ---
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 Sep, [facility] [address] [id number] [address] [place] [address], [place] [address] Sep, [facility] [address] [id number] [address] [place] [address], [place] [address] Sep, [facility] [address] [id number] [address] [place] [address], [place] [address] Sep, [facility] [address] [id number] [address] [place] [address], [place] [address] Sep, [facility] [address] [id number] [address] [place] [address], [place] [address] Sep, [facility] [address] [id number] [address] [place] [address], [place] [address] Sep, [facility] [address] [id number] [address] [place] [address], [place] [address] Sep, [facility] [address] [id number] [address] [place] [address], [place] [address] Jul, [facility] [address] [id number] [address] [place] [address], [place] [address] Jul, [facility] [address] [id number] [address] [place] [address], [place] [address] Jul, [facility] [address] [id number] [address] [place] [address], [place] [address] Jul, [facility] [address] [id number] [address] [place] [address], [place] [address] Jun, [facility] [address] [id number] [address] [place] [address], [place] [address] Jun, [facility] [address] [id number] [address] [place] [address], [place] [address] Jun, [facility] [address] [id number] [address] [place] [address], [place] [address] Jun, [facility] [address] [id number] [address] [place] [address], [place] [address] Jun, [facility] [address] [id number] [address] [place] [address], [place] [address] Jun, [facility] [address] [id number] [address] [place] [address], [place] [address] Apr, [facility] [address] [id number] [address] [place] [address], [place] [address] Apr, [facility] [address] [id number] [address] [place] [address], [place] [address] Apr, [facility] [address] [id number] [address] [place] [address], [place] [address] Apr, [facility] [address] [id number] [address] [place] [address], [place] [address] Apr, [facility] [address] [id number] [address] [place] [address], [place] [address] Apr, [facility] [address] [id number] [address] [place] [address], [place] [address] Apr, [facility] [address] [id number] [address] [place] [address], [place] [address] Apr, [facility] [address] [id number] [address] [place] [address], [place] [address] Mar, [facility] [address] [id number] [address] [place] [address], [place] [address] Mar, [facility] [address] [id number] [address] [place] [address], [place] [address] Feb, [facility] [address] [id number] [address] [place] [address], [place] [address] Feb, [facility] [address] [id number] [address] [place] [address], [place] [address] Dec, [facility] [address] [id number] [address] [place] [address], [place] [address] Dec, [facility] [address] [id number] [address] [place] [address], [place] [address] Dec, [facility] [address] [id number] [address] [place] [address], [place] [address] Dec, [facility] [address] [id number] [address] [place] [address], [place] [address] Dec, [facility] [address] [id number] [address] [place] [address], [place] [address] Dec, [facility] [address] [id number] [address] [place] [address], [place] [address] Dec, [facility] [address] [id number] [address] [place] [address], [place] [address] Nov, [facility] [address] [id number] [address] [place] [address], [place] [address] Nov, [facility] [address] [id number] [address] [place] [address], [place] [address] Nov, [facility] [address] [id number] [address] [place] [address], [place] [address] Nov, [facility] [address] [id number] [address] [place] [address], [place] [address] October, [facility] [address] [id number] [address] [place] [address], [place] [address] October, [facility] [address] [id number] [address] [place] [address], [place] [address] October, [facility] [address] [id number] [address] [place] [address], [place] [address] October, [facility] [address] [id number] [address] [place] [address], [place] [address] Sep, [facility] [address] [id number] [address] [place] [address], [place] [address] Aug, [facility] [address] [id number] [address] [place] [address], [place] [address] Aug, [facility] [address] [id number] [address] [place] [address], [place] [address] Aug, [facility] [address] [id number] [address] [place] [address], [place] [address] Aug, [facility] [address] [id number] [address] [place] [address], [place] [address] Aug, [facility] [address] [id number] [address] [place] [address], [place] [address] Jul, [facility] [address] [id number] [address] [place] [address], [place] [address] Jul, [facility] [address] [id number] [address] [place] [address], [place] [address] Jul, [facility] [address] [id number] [address] [place] [address], [place] [address] Jul, [facility] [address] [id number] [address] [place] [address], [place] [address] Jul, [facility] [address] [id number] [address] [place] [address], [place] [address] Jul, [facility] [address] [id number] [address] [place] [address], [place] [address] 20 Jul, 2012 [facility] [address] [id number] [address] [place] [address], [place] [address] 15 Jul, 2012 [facility] [address] [id number] [address] [place] [address], [place] [address] 14 Jul, 2012 [facility] [address] [id number] [address] [place] [address], [place] [address] Jul, [facility] [address] [id number] [address] [place] [address], [place] [address] Jun, [facility] [address] [id number] [address] [place] [address], [place] [address] Jun, [facility] [address] [id number] [address] [place] [address], [place] [address] Jun, [facility] [address] [id number] [address] [place] [address], [place] [address] May, [facility] [address] [id number] [address] [place] [address], [place] [address] May, [facility] [address] [id number] [address] [place] [address], [place] [address] Apr, [facility] [address] [id number] [address] [place] [address], [place] [address] Apr, [facility] [address] [id number] [address] [place] [address], [place] [address] Apr, [facility] [address] [id number] [address] [place] [address], [place] [address] Apr, [facility] [address] [id number] [address] [place] [address], [place] [address] Apr, [facility] [address] [id number] [address] [place] [address], [place] [address] Apr, [facility] [address] [id number] [address] [place] [address], [place] [address] Apr, [facility] [address] [id number] [address] [place] [address], [place] [address] Apr, [facility] [address] [id number] [address] [place] [address], [place] [address] Mar, [facility] [address] [id number] [address] [place] [address], [place] [address] Mar, [facility] [address] [id number] [address] [place] [address], [place] [address] Mar, [facility] [address] [id number] [address] [place] [address], [place] [address] Mar, [facility] [address] [id number] [address] [place] [address], [place] [address] Mar, [facility] [address] [id number] [address] [place] [address], [place] [address] Mar, [facility] [address] [id number] [address] [place] [address], [place] [address] Mar, [facility] [address] [id number] [address] [place] [address], [place] [id number] Mar, [facility] [address] [id number] [address] [place] [address], [place] [address] Mar, [facility] [address] [id number] [address] [place] [address], [place] [id number] Feb, [facility] [address] [id number] [address] [place] [address], [place] [address] Jan, [facility] [address] [id number] [address] [place] [address], [place] [address] Jan, [facility] [address] [id number] [address] [place] [address], [place] [address] Jan, [facility] [address] [id number] [address] [place] [address], [place] [id number] Dec, [facility] [address] [id number] [address] [place] [address], [place] [address] Dec, [facility] [address] [id number] [address] [place] [address], [place] [address] Dec, [facility] [address] [id number] [address] [place] [address], [place] [address] Nov, [facility] [address] [id number] [address] [place] [address], [place] [id number] October, [facility] [address] [id number] [address] [place] [address], [place] [address] October, [facility] [address] [id number] [address] [place] [address], [place] [id number] October, [facility] [address] [id number] [address] [place] [address], [place] [address] October, [facility] [address] [id number] [address] [place] [address], [place] [address] October, [facility] [address] [id number] [address] [place] [address], [place] [address] Sep, [facility] [address] [id number] [address] [place] [address], [place] [address] Sep, [facility] [address] [id number] [address] [place] [address], [place] [address] Sep, [facility] [address] [id number] [address] [place] [address], [place] [id number] Sep, [facility] [address] [id number] [address] [place] [address], [place] [address] Sep, [facility] [address] [id number] [address] [place] [address], [place] [address] Sep, [facility] [address] [id number] [address] [place] [address], [place] [id number] 11 Sep, 2011 [facility] [address] [id number] [address] [place] [address], [place] [id number] 28 Aug, 2011 [facility] [address] [id number] [address] [place] [address], [place] [id number] 23 Aug, 2011 [facility] [address] [id number] [address] [place] [address], [place] [id number] 21 Aug, 2011 [facility] [address] [id number] [address] [place] [address], [place] [address] 21 Aug, 2011 [facility] [address] [id number] [address] [place] [address], [place] [address] 20 Aug, 2011 [facility] [address] [id number] [address] [place] [address], [place] [id number] 19 Aug, 2011 [facility] [address] [id number] [address] [place] [address], [place] [id number] 16 Aug, 2011 [facility] [address] [id number] [address] [place] [address], [place] [id number] 15 Aug, 2011 [facility] [address] [id number] [address] [place] [address], [place] [address] 15 Aug, 2011 [facility] [address] [id number] [address] [place] [address], [place] [address] 14 Aug, 2011 [facility] [address] [id number] [address] [place] [address], [place] [id number] 12 Aug, 2011 [facility] [address] [id number] [address] [place] [address], [place] [id number] 08 Aug, 2011 [facility] [address] [id number] [address] [place] [address], [place] [address] 15 Jul, 2011 [facility] [address] [id number] [address] [place] [address], [place] [id number] 15 Jul, 2011 [facility] [address] [id number] [address] [place] [address], [place] [id number] 14 Jul, 2011 [facility] [address] [id number] [address] [place] [address], [place] [id number] 06 Jul, 2011 [facility] [address] [id number] [address] [place] [address], [place] [address] Jul, [facility] [address] [id number] [address] [place] [address], [place] [id number] Jun, [facility] [address] [id number] [address] [place] [address], [place] [address] Jun, [facility] [address] [id number] [address] [place] [address], [place] [phone] Jun, [facility] [address] [id number] [address] [place] [address], [place] [id number] May, [facility] [address] [id number] [address] [place] [address], [place] [id number] May, [facility] [address] [id number] [address] [place] [address], [place] [id number] May, [facility] [address] [id number] [address] [place] [address], [place] [id number] May, [facility] [address] [id number] [address] [place] [address], [place] [id number] May, [facility] [address] [id number] [address] [place] [address], [place] [id number] 16 Apr, 2011 [facility] [address] [id number] [address] [place] [id number] 16 Apr, [address] [facility] [address] [id number] [address] [place] [address], [place] [id number] 15 Apr, 2011 [facility] [address] [id number] [address] [place] [address], [place] [id number] 14 Apr, [address] [facility] [address] [id number] [address] [place] [address], [place] [id number] 25 Mar, 2011 [facility] [address] [id number] [address] [place] [id number] Mar, [facility] [address] [id number] [address] [place] [id number] Mar, [facility] [address] [id number] [address] [place] [id number] Mar, [facility] [address] [id number] [address] [place] [id number] Mar, [facility] [address] [id number] [address] [place] [id number] Mar, [facility] [address] [id number] [address] [place] [id number] Feb, [facility] [address] [id number] [address] [place] [id number] Nov, [facility] [address] [id number] [address] [place] [id number] Aug, [facility] [address] [id number] [address] [place] [id number] Apr, [facility] [address] [id number] [address] [place] [phone] Mar, [facility] [address] [id number] [address] [place] [id number] Apr, [facility] [address] [id number] [address] [place] [id number] Apr, [facility] [address] [id number] [address] [place] [id number] 15 Sep, 2008 [facility] [address] [id number] [address] [place] [id number] Mar, IMMUNIZATIONS No Known Immunizations SOCIAL HISTORY Never Assessed REASON FOR VISIT PLAN OF CARE VITAL SIGNS Weight 212.31 lbs 2012-11-13 Temperature 98.2 degrees Fahrenheit 2012-11-13 Heart Rate 80 bpm 2012-11-13 Respiratory Rate 20 2012-11-13 Blood pressure systolic 101 mmHg 2012-11-13 Blood pressure diastolic 70 mmHg 2012-11-13 MEDICATIONS Unknown Medications RESULTS No Results PROCEDURES [...] ER for Kidney pain/Stones 06/19/18 Hospitalization History [place] [place] X4 days 9
--- OUTSIDE RECORDS SUMMARY | 2019-12-26 10:54 | XMS REPORT ---
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 [address] [id number] [address] [place] [address], [place] [address] Jul, [facility] [address] [id number] [address] [place] [address], [place] [address] Jul, [facility] [address] [id number] [address] [place] [address], [place] [address] Jul, [facility] [address] [id number] [address] [place] [address], [place] [address] Jun, [facility] [address] [id number] [address] [place] [address], [place] [address] Jun, [facility] [address] [id number] [address] [place] [address], [place] [address] Jun, [facility] [address] [id number] [address] [place] [address], [place] [address] Jun, [facility] [address] [id number] [address] [place] [address], [place] [address] Jun, [facility] [address] [id number] [address] [place] [address], [place] [address] Jun, [facility] [address] [id number] [address] [place] [address], [place] [address] Apr, [facility] [address] [id number] [address] [place] [address], [place] [address] Apr, [facility] [address] [id number] [address] [place] [address], [place] [address] Apr, [facility] [address] [id number] [address] [place] [address], [place] [address] Apr, [facility] [address] [id number] [address] [place] [address], [place] [address] Apr, [facility] [address] [id number] [address] [place] [address], [place] [address] Apr, [facility] [address] [id number] [address] [place] [address], [place] [address] Apr, [facility] [address] [id number] [address] [place] [address], [place] [address] Apr, [facility] [address] [id number] [address] [place] [address], [place] [address] Mar, [facility] [address] [id number] [address] [place] [address], [place] [address] Mar, [facility] [address] [id number] [address] [place] [address], [place] [address] Feb, [facility] [address] [id number] [address] [place] [address], [place] [address] Feb, [facility] [address] [id number] [address] [place] [address], [place] [address] Dec, [facility] [address] [id number] [address] [place] [address], [place] [address] Dec, [facility] [address] [id number] [address] [place] [address], [place] [address] Dec, [facility] [address] [id number] [address] [place] [address], [place] [address] Dec, [facility] [address] [id number] [address] [place] [address], [place] [address] Dec, [facility] [address] [id number] [address] [place] [address], [place] [address] Dec, [facility] [address] [id number] [address] [place] [address], [place] [address] Dec, [facility] [address] [id number] [address] [place] [address], [place] [address] Nov, [facility] [address] [id number] [address] [place] [address], [place] [address] Nov, [facility] [address] [id number] [address] [place] [address], [place] [address] Nov, [facility] [address] [id number] [address] [place] [address], [place] [address] Nov, [facility] [address] [id number] [address] [place] [address], [place] [address] October, [facility] [address] [id number] [address] [place] [address], [place] [address] October, [facility] [address] [id number] [address] [place] [address], [place] [address] October, [facility] [address] [id number] [address] [place] [address], [place] [address] October, [facility] [address] [id number] [address] [place] [address], [place] [address] Sep, [facility] [address] [id number] [address] [place] [address], [place] [address] Aug, [facility] [address] [id number] [address] [place] [address], [place] [address] Aug, [facility] [address] [id number] [address] [place] [address], [place] [address] Aug, [facility] [address] [id number] [address] [place] [address], [place] [address] Aug, [facility] [address] [id number] [address] [place] [address], [place] [address] Aug, [facility] [address] [id number] [address] [place] [address], [place] [address] Jul, [facility] [address] [id number] [address] [place] [address], [place] [address] Jul, [facility] [address] [id number] [address] [place] [address], [place] [address] Jul, [facility] [address] [id number] [address] [place] [address], [place] [address] Jul, [facility] [address] [id number] [address] [place] [address], [place] [address] Jul, [facility] [address] [id number] [address] [place] [address], [place] [address] 23 Jul, 2012 [facility] [address] [id number] [address] [place] [address], [place] [address] 20 Jul, 2012 [facility] [address] [id number] [address] [place] [address], [place] [address] 15 Jul, 2012 [facility] [address] [id number] [address] [place] [address], [place] [address] 14 Jul, 2012 [facility] [address] [id number] [address] [place] [address], [place] [address] Jul, [facility] [address] [id number] [address] [place] [address], [place] [address] Jun, [facility] [address] [id number] [address] [place] [address], [place] [address] Jun, [facility] [address] [id number] [address] [place] [address], [place] [address] Jun, [facility] [address] [id number] [address] [place] [address], [place] [address] May, [facility] [address] [id number] [address] [place] [address], [place] [address] May, [facility] [address] [id number] [address] [place] [address], [place] [address] Apr, [facility] [address] [id number] [address] [place] [address], [place] [address] Apr, [facility] [address] [id number] [address] [place] [address], [place] [address] Apr, [facility] [address] [id number] [address] [place] [address], [place] [address] Apr, [facility] [address] [id number] [address] [place] [address], [place] [address] Apr, [facility] [address] [id number] [address] [place] [address], [place] [address] Apr, [facility] [address] [id number] [address] [place] [address], [place] [address] Apr, [facility] [address] [id number] [address] [place] [address], [place] [address] Apr, [facility] [address] [id number] [address] [place] [address], [place] [address] Mar, [facility] [address] [id number] [address] [place] [address], [place] [address] Mar, [facility] [address] [id number] [address] [place] [address], [place] [address] Mar, [facility] [address] [id number] [address] [place] [address], [place] [address] Mar, [facility] [address] [id number] [address] [place] [address], [place] [address] Mar, [facility] [address] [id number] [address] [place] [address], [place] [address] Mar, [facility] [address] [id number] [address] [place] [address], [place] [address] Mar, [facility] [address] [id number] [address] [place] [address], [place] [address] Mar, [facility] [address] [id number] [address] [place] [address], [place] [address] Mar, [facility] [address] [id number] [address] [place] [address], [place] [address] Feb, [facility] [address] [id number] [address] [place] [address], [place] [address] Jan, [facility] [address] [id number] [address] [place] [address], [place] [address] Jan, [facility] [address] [id number] [address] [place] [address], [place] [address] Jan, [facility] [address] [id number] [address] [place] [address], [place] [id number] Dec, [facility] [address] [id number] [address] [place] [address], [place] [id number] Dec, [facility] [address] [id number] [address] [place] [address], [place] [address] Dec, [facility] [address] [id number] [address] [place] [address], [place] [address] Nov, [facility] [address] [id number] [address] [place] [address], [place] [address] October, [facility] [address] [id number] [address] [place] [address], [place] [id number] October, [facility] [address] [id number] [address] [place] [address], [place] [address] October, [facility] [address] [id number] [address] [place] [address], [place] [id number] October, [facility] [address] [id number] [address] [place] [address], [place] [id number] October, [facility] [address] [id number] [address] [place] [address], [place] [id number] Sep, [facility] [address] [id number] [address] [place] [address], [place] [address] Sep, [facility] [address] [id number] [address] [place] [address], [place] [id number] Sep, [facility] [address] [id number] [address] [place] [address], [place] [address] Sep, [facility] [address] [id number] [address] [place] [address], [place] [address] Sep, [facility] [address] [id number] [address] [place] [address], [place] [id number] Sep, [facility] [address] [id number] [address] [place] [address], [place] [address] Sep, [facility] [address] [id number] [address] [place] [address], [place] [id number] 28 Aug, 2011 [facility] [address] [id number] [facility] [place] [id number] 23 Aug, 2011 [facility] [address] [id number] [address] [place] [address], [place] [address] 21 Aug, 2011 [facility] [address] [id number] [address] [place] [address], [place] [id number] 21 Aug, 2011 [facility] [address] [id number] [address] [place] [address], [place] [id number] 20 Aug, 2011 [facility] [address] [id number] [address] [place] [address], [place] [id number] 19 Aug, 2011 [facility] [address] [id number] [address] [place] [address], [place] [address] 16 Aug, 2011 [facility] [address] [id number] [address] [place] [address], [place] [id number] 15 Aug, 2011 [facility] [address] [id number] [address] [place] [address], [place] [address] 15 Aug, 2011 [facility] [address] [id number] [address] [place] [address], [place] [address] 14 Aug, 2011 [facility] [address] [id number] [address] [place] [address], [place] [id number] 12 Aug, 2011 [facility] [address] [id number] [address] [place] [address], [place] [id number] 08 Aug, 2011 [facility] [address] [id number] [address] [place] [address], [place] [address] 15 Jul, 2011 [facility] [address] [id number] [address] [place] [address], [place] [address] 15 Jul, 2011 [facility] [address] [id number] [address] [place] [address], [place] [id number] 14 Jul, 2011 [facility] [address] [id number] [address] [place] [address], [place] [address] Jul, [facility] [address] [id number] [address] [place] [address], [place] [address] Jul, [facility] [address] [id number] [address] [place] [address], [place] [address] Jun, [facility] [address] [id number] [address] [place] [address], [place] [address] Jun, [facility] [address] [id number] [address] [place] [address], [place] [id number] Jun, [facility] [address] [id number] [address] [place] [address], [place] [id number] May, [facility] [address] [id number] [address] [place] [address], [place] [id number] May, [facility] [address] [id number] [address] [place] [address], [place] [id number] May, [facility] [address] [id number] [address] [place] [address], [place] [id number] May, [facility] [address] [id number] [address] [place] [address], [place] [id number] 14 May, 2011 [facility] [address] [id number] [address] [place] [address], [place] [id number] 16 Apr, 2011 [facility] [address] [id number] [address] [place] [id number] 16 Apr, 2011 [facility] [address] [id number] [address] [place] [id number] 15 Apr, 2011 [facility] [address] [id number] [address] [place] [address], [place] [id number] 14 Apr, 2011 [facility] [address] [id number] [address] [place] [address], [place] [id number] 25 Mar, 2011 [facility] [address] [id number] [address] [place] [id number] 24 Mar, 2011 [facility] [address] [id number] [address] [place] [id number] Mar, [facility] [address] [id number] [address] [place] [id number] Mar, [facility] [address] [id number] [address] [place] [id number] Mar, [facility] [address] [id number] [address] [place] [id number] Mar, [facility] [address] [id number] [address] [place] [id number] 16 Feb, 2011 [facility] [address] [id number] [address] [place] [phone] Nov, [facility] [address] [id number] [address] [place] [id number] Aug, [facility] [address] [id number] [address] [place] [phone] Apr, [facility] [address] [id number] [address] [place] [phone] Mar, [facility] [address] [id number] [address] [place] [id number] Apr, [facility] [address] [id number] [address] [place] [phone] Apr, [facility] [address] [id number] [address] [place] [phone] Sep, [facility] [address] [id number] [address] [place] [phone] Mar, IMMUNIZATIONS No Known Immunizations SOCIAL HISTORY Never Assessed REASON FOR VISIT PLAN OF CARE VITAL SIGNS Blood pressure systolic 110 mmHg 2014-06-22 Blood pressure diastolic 64 mmHg 2014-06-22 MEDICATIONS Unknown Medications RESULTS No Results PROCEDURES [...] ER for Kidney pain/Stones 06/19/18 Hospitalization History [facility] X[facility] days 9
--- OUTSIDE RECORDS SUMMARY | 2019-12-26 10:55 | XMS REPORT ---
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 [address] [place] [address], [place] [address] Apr, [facility] [address] [id number] [address] [place] [address], [place] [address] Apr, [facility] [address] [id number] [address] [place] [address], [place] [address] Apr, [facility] [address] [id number] [address] [place] [address], [place] [address] Apr, [facility] [address] [id number] [address] [place] [address], [place] [address] Apr, [facility] [address] [id number] [address] [place] [address], [place] [address] Apr, [facility] [address] [id number] [address] [place] [address], [place] [address] Apr, [facility] [address] [id number] [address] [place] [address], [place] [address] Apr, [facility] [address] [id number] [address] [place] [address], [place] [address] Mar, [facility] [address] [id number] [address] [place] [address], [place] [address] Mar, [facility] [address] [id number] [address] [place] [address], [place] [address] Feb, [facility] [address] [id number] [address] [place] [address], [place] [address] Feb, [facility] [address] [id number] [address] [place] [address], [place] [address] Dec, [facility] [address] [id number] [address] [place] [address], [place] [address] Dec, [facility] [address] [id number] [address] [place] [address], [place] [address] Dec, [facility] [address] [id number] [address] [place] [address], [place] [address] Dec, [facility] [address] [id number] [address] [place] [address], [place] [address] Dec, [facility] [address] [id number] [address] [place] [address], [place] [address] Dec, [facility] [address] [id number] [address] [place] [address], [place] [address] Dec, [facility] [address] [id number] [address] [place] [address], [place] [address] Nov, [facility] [address] [id number] [address] [place] [address], [place] [address] Nov, [facility] [address] [id number] [address] [place] [address], [place] [address] Nov, [facility] [address] [id number] [address] [place] [address], [place] [address] Nov, [facility] [address] [id number] [address] [place] [address], [place] [address] October, [facility] [address] [id number] [address] [place] [address], [place] [address] October, [facility] [address] [id number] [address] [place] [address], [place] [address] October, [facility] [address] [id number] [address] [place] [address], [place] [address] October, [facility] [address] [id number] [address] [place] [address], [place] [address] Sep, [facility] [address] [id number] [address] [place] [address], [place] [address] Aug, [facility] [address] [id number] [address] [place] [address], [place] [address] 29 Aug, 2012 [facility] [address] [id number] [address] [place] [address], [place] [address] Aug, [facility] [address] [id number] [address] [place] [address], [place] [address] Aug, [facility] [address] [id number] [address] [place] [address], [place] [address] Aug, [facility] [address] [id number] [address] [place] [address], [place] [address] 27 Jul, 2012 [facility] [address] [id number] [address] [place] [address], [place] [address] Jul, [facility] [address] [id number] [address] [place] [address], [place] [address] 26 Jul, 2012 [facility] [address] [id number] [address] [place] [address], [place] [address] 25 Jul, 2012 [facility] [address] [id number] [address] [place] [address], [place] [address] 25 Jul, 2012 [facility] [address] [id number] [address] [place] [address], [place] [address] 23 Jul, 2012 [facility] [address] [id number] [address] [place] [address], [place] [address] 20 Jul, 2012 [facility] [address] [id number] [address] [place] [address], [place] [address] 15 Jul, 2012 [facility] [address] [id number] [address] [place] [address], [place] [address] 14 Jul, 2012 [facility] [address] [id number] [address] [place] [address], [place] [address] 11 Jul, 2012 [facility] [address] [id number] [address] [place] [address], [place] [address] 31 Jun, 2012 [facility] [address] [id number] [address] [place] [address], [place] [address] Jun, [facility] [address] [id number] [address] [place] [address], [place] [address] Jun, [facility] [address] [id number] [address] [place] [address], [place] [address] May, [facility] [address] [id number] [address] [place] [address], [place] [address] May, [facility] [address] [id number] [address] [place] [address], [place] [address] Apr, [facility] [address] [id number] [address] [place] [address], [place] [address] Apr, [facility] [address] [id number] [address] [place] [address], [place] [address] Apr, [facility] [address] [id number] [address] [place] [address], [place] [address] Apr, [facility] [address] [id number] [address] [place] [address], [place] [address] Apr, [facility] [address] [id number] [address] [place] [address], [place] [address] Apr, [facility] [address] [id number] [address] [place] [address], [place] [address] Apr, [facility] [address] [id number] [address] [place] [address], [place] [address] Apr, [facility] [address] [id number] [address] [place] [address], [place] [address] Mar, [facility] [address] [id number] [address] [place] [address], [place] [address] Mar, [facility] [address] [id number] [address] [place] [address], [place] [address] Mar, [facility] [address] [id number] [address] [place] [address], [place] [address] Mar, [facility] [address] [id number] [address] [place] [address] [place] [address] 15 Mar, 2012 [facility] [address] [id number] [address] [place] [address], [place] [address] 15 Mar, 2012 [facility] [address] [id number] [address] [place] [address], [place] [address] Mar, [facility] [address] [id number] [address] [place] [address], [place] [address] Mar, [facility] [address] [id number] [address] [place] [address], [place] [address] Mar, [facility] [address] [id number] [address] [place] [address], [place] [address] Feb, [facility] [address] [id number] [address] [place] [address], [place] [address] Jan, [facility] [address] [id number] [address] [place] [address], [place] [address] Jan, [facility] [address] [id number] [address] [place] [address], [place] [address] Jan, [facility] [address] [id number] [address] [place] [address], [place] [address] Dec, [facility] [address] [id number] [address] [place] [address], [place] [address] Dec, [facility] [address] [id number] [address] [place] [address], [place] [address] Dec, [facility] [address] [id number] [address] [place] [address], [place] [address] Nov, [facility] [address] [id number] [address] [place] [address], [place] [address] October, [facility] [address] [id number] [address] [place] [address], [place] [address] October, [facility] [address] [id number] [address] [place] [address], [place] [address] October, [facility] [address] [id number] [facility] [place] [address] October, [facility] [address] [id number] [address] [place] [address], [place] [address] October, [facility] [address] [id number] [address] [place] [address], [place] [address] 30 Sep, 2011 [facility] [address] [id number] [address] [place] [address], [place] [address] Sep, [facility] [address] [id number] [address] [place] [address], [place] [address] Sep, [facility] [address] [id number] [address] [place] [address], [place] [address] Sep, [facility] [address] [id number] [address] [place] [address], [place] [address] Sep, [facility] [address] [id number] [address] [place] [address], [place] [address] Sep, [facility] [address] [id number] [address] [place] [address], [place] [address] Sep, [facility] [address] [id number] [address] [place] [address], [place] [address] Aug, [facility] [address] [id number] [address] [place] [address], [place] [address] Aug, [facility] [address] [id number] [address] [place] [address], [place] [address] Aug, [facility] [address] [id number] [address] [place] [address], [place] [address] Aug, [facility] [address] [id number] [address] [place] [address], [place] [address] 20 Aug, 2011 [facility] [address] [id number] [address] [place] [address], [place] [address] 19 Aug, 2011 [facility] [address] [id number] [address] [place] [address], [place] [address] 16 Aug, 2011 [facility] [address] [id number] [address] [place] [address], [place] [address] 15 Aug, 2011 [facility] [address] [id number] [address] [place] [address], [place] [address] 15 Aug, 2011 [facility] [address] [id number] [address] [place] [address], [place] [address] 14 Aug, 2011 [facility] [address] [id number] [address] [place] [address], [place] [address] 12 Aug, 2011 [facility] [address] [id number] [address] [place] [address], [place] [address] 08 Aug, 2011 [facility] [address] [id number] [address] [place] [address], [place] [address] 15 Jul, 2011 [facility] [address] [id number] [address] [place] [address], [place] [address] 15 Jul, 2011 [facility] [address] [id number] [address] [place] [address], [place] [address] 14 Jul, 2011 [facility] [address] [id number] [address] [place] [address], [place] [address] 06 Jul, 2011 [facility] [address] [id number] [address] [place] [address], [place] [address] 02 Jul, 2011 [facility] [address] [id number] [address] [place] [address], [place] [address] Jun, [facility] [address] [id number] [address] [place] [address], [place] [address] Jun, [facility] [address] [id number] [address] [place] [address], [place] [address] Jun, [facility] [address] [id number] [address] [place] [address], [place] [address] May, [facility] [address] [id number] [address] [place] [address], [place] [address] May, [facility] [address] [id number] [address] [place] [address], [place] [address] 19 May, 2011 [facility] [address] [id number] [address] [place] [address], [place] [address] 19 May, 2011 [facility] [address] [id number] [address] [place] [address], [place] [address] 14 May, 2011 [facility] [address] [id number] [address] [place] [address], [place] [address] 16 Apr, 2011 [facility] [address] [id number] [address] [place] [address], [place] [address] 16 Apr, 2011 [facility] [address] [id number] [address] [place] [address], [place] [address] 15 Apr, 2011 [facility] [address] [id number] [address] [place] [address], [place] [address] 14 Apr, 2011 [facility] [address] [id number] [address] [place] [address], [place] [address] 25 Mar, 2011 [facility] [address] [id number] [address] [place] [address], [place] [address] 24 Mar, 2011 [facility] [address] [id number] [address] [place] [address], [place] [address] 19 Mar, 2011 [facility] [address] [id number] [address] [place] [address], [place] [address] 19 Mar, 2011 [facility] [address] [id number] [address] [place] [address], [place] [address] 17 Mar, 2011 [facility] [address] [id number] [address] [place] [address], [place] [id number] 17 Mar, 2011 [facility] [address] [id number] [address] [place] [address], [place] [id number] 16 Feb, 2011 [facility] [address] [id number] [address] [place] [address], [place] [id number] Nov, [facility] [address] [id number] [address] [place] [address], [place] [id number] Aug, [facility] [address] [facility] [id number] [address] [place] [id number] 11 Apr, 2010 [facility] [address] [facility] [id number] [address] [place] [id number] Mar, [facility] [address] [facility] [id number] [address] [place] [id number] Apr, [facility] [address] [facility] [id number] [address] [place] [id number] Apr, [facility] [address] [facility] [id number] [address] [place] [phone] Sep, [facility] [address] [facility] [id number] [address] [place] [id number] Mar, IMMUNIZATIONS No Known Immunizations SOCIAL HISTORY Never Assessed REASON FOR VISIT PLAN OF CARE VITAL SIGNS Height 63 in 2013-06-22 Weight 212 lbs 2013-06-22 Heart Rate 90 bpm 2013-06-22 Blood pressure systolic 116 mmHg 2013-06-22 Blood pressure diastolic 70 mmHg 2013-06-22 MEDICATIONS Unknown Medications RESULTS No Results PROCEDURES [...] ER for Kidney pain/Stones 06/19/18 [facility]
--- OUTSIDE RECORDS SUMMARY | 2019-12-26 10:55 | XMS REPORT ---
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 [address] [place] [address], [place] [address] Jun, [facility] [address] [id number] [address] [place] [address], [place] [address] Jun, [facility] [address] [id number] [address] [place] [address], [place] [address] Jun, [facility] [address] [id number] [address] [place] [address], [place] [address] Jun, [facility] [address] [id number] [address] [place] [address], [place] [address] Jun, [facility] [address] [id number] [address] [place] [address], [place] [address] Apr, [facility] [address] [id number] [address] [place] [address], [place] [address] Apr, [facility] [address] [id number] [address] [place] [address], [place] [address] Apr, [facility] [address] [id number] [address] [place] [address], [place] [address] Apr, [facility] [address] [id number] [address] [place] [address], [place] [address] Apr, [facility] [address] [id number] [address] [place] [address], [place] [address] Apr, [facility] [address] [id number] [address] [place] [address], [place] [address] Apr, [facility] [address] [id number] [address] [place] [address], [place] [address] Apr, [facility] [address] [id number] [address] [place] [address], [place] [address] Mar, [facility] [address] [id number] [address] [place] [address], [place] [address] Mar, [facility] [address] [id number] [address] [place] [address], [place] [address] Feb, [facility] [address] [id number] [address] [place] [address], [place] [address] Feb, [facility] [address] [id number] [address] [place] [address], [place] [address] Dec, [facility] [address] [id number] [address] [place] [address], [place] [address] Dec, [facility] [address] [id number] [address] [place] [address], [place] [address] Dec, [facility] [address] [id number] [address] [place] [address], [place] [address] Dec, [facility] [address] [id number] [address] [place] [address], [place] [address] Dec, [facility] [address] [id number] [address] [place] [address], [place] [address] Dec, [facility] [address] [id number] [address] [place] [address], [place] [address] Dec, [facility] [address] [id number] [address] [place] [address], [place] [address] Nov, [facility] [address] [id number] [address] [place] [address], [place] [address] Nov, [facility] [address] [id number] [address] [place] [address], [place] [address] Nov, [facility] [address] [id number] [address] [place] [address], [place] [address] Nov, [facility] [address] [id number] [address] [place] [address], [place] [address] October, [facility] [address] [id number] [address] [place] [address], [place] [address] October, [facility] [address] [id number] [address] [place] [address], [place] [address] October, [facility] [address] [id number] [address] [place] [address], [place] [address] October, [facility] [address] [id number] [address] [place] [address], [place] [address] Sep, [facility] [address] [id number] [address] [place] [address], [place] [address] Aug, [facility] [address] [id number] [address] [place] [address], [place] [address] Aug, [facility] [address] [id number] [address] [place] [address], [place] [address] Aug, [facility] [address] [id number] [address] [place] [address], [place] [address] Aug, [facility] [address] [id number] [address] [place] [address], [place] [address] Aug, [facility] [address] [id number] [address] [place] [address], [place] [address] Jul, [facility] [address] [id number] [address] [place] [address], [place] [address] Jul, [facility] [address] [id number] [address] [place] [address], [place] [address] Jul, [facility] [address] [id number] [address] [place] [address], [place] [address] Jul, [facility] [address] [id number] [address] [place] [address], [place] [address] Jul, [facility] [address] [id number] [address] [place] [address], [place] [address] 23 Jul, 2012 [facility] [address] [id number] [address] [place] [address], [place] [address] 20 Jul, 2012 [facility] [address] [id number] [address] [place] [address], [place] [address] 15 Jul, 2012 [facility] [address] [id number] [address] [place] [address], [place] [address] 14 Jul, 2012 [facility] [address] [id number] [address] [place] [address], [place] [address] Jul, [facility] [address] [id number] [address] [place] [address], [place] [address] Jun, [facility] [address] [id number] [address] [place] [address], [place] [address] Jun, [facility] [address] [id number] [address] [place] [address], [place] [address] Jun, [facility] [address] [id number] [address] [place] [address], [place] [address] May, [facility] [address] [id number] [address] [place] [address], [place] [address] May, [facility] [address] [id number] [address] [place] [address], [place] [address] Apr, [facility] [address] [id number] [address] [place] [address], [place] [address] Apr, [facility] [address] [id number] [address] [place] [address], [place] [address] Apr, [facility] [address] [id number] [address] [place] [address], [place] [address] Apr, [facility] [address] [id number] [address] [place] [address], [place] [address] Apr, [facility] [address] [id number] [address] [place] [address], [place] [address] Apr, [facility] [address] [id number] [address] [place] [address], [place] [address] Apr, [facility] [address] [id number] [address] [place] [address], [place] [address] Apr, [facility] [address] [id number] [address] [place] [address], [place] [address] Mar, [facility] [address] [id number] [address] [place] [address], [place] [address] Mar, [facility] [address] [id number] [address] [place] [address], [place] [address] Mar, [facility] [address] [id number] [address] [place] [address], [place] [address] Mar, [facility] [address] [id number] [address] [place] [address], [place] [address] Mar, [facility] [address] [id number] [address] [place] [address], [place] [address] Mar, [facility] [address] [id number] [address] [place] [address], [place] [address] Mar, [facility] [address] [id number] [address] [place] [address], [place] [address] Mar, [facility] [address] [id number] [address] [place] [address], [place] [address] Mar, [facility] [address] [id number] [address] [place] [address], [place] [address] Feb, [facility] [address] [id number] [address] [place] [id number] Jan, [facility] [address] [id number] [address] [place] [address], [place] [address] Jan, [facility] [address] [id number] [address] [place] [address] Jan, [facility] [address] [id number] [address] [place] [address], [place] [address] Dec, [facility] [address] [id number] [address] [place] [address], [place] [address] Dec, [facility] [address] [id number] [address] [place] [id number] Dec, [facility] [address] [id number] [address] [place] [id number] Nov, [facility] [address] [id number] [address] [place] [address], [place] [address] October, [facility] [address] [id number] [address] [place] [address], [place] [address] October, [facility] [address] [id number] [address] [place] [address], [place] [address] October, [facility] [address] [id number] [address] [place] [address], [place] [address] October, [facility] [address] [id number] [address] [place] [address], [place] [address] October, [facility] [address] [id number] [address] [place] [address], [place] [address] Sep, [facility] [address] [id number] [address] [place] [address], [place] [address] Sep, [facility] [address] [id number] [address] [place] [address], [place] [address] Sep, [facility] [address] [id number] [address] [place] [address], [place] [address] Sep, [facility] [address] [id number] [address] [place] [address], [place] [address] Sep, [facility] [address] [id number] [address] [place] [address], [place] [address] Sep, [facility] [address] [id number] [address] [place] [address], [place] [address] Sep, [facility] [address] [id number] [address] [place] [address], [place] [address] Aug, [facility] [address] [id number] [address] [place] [address], [place] [address] Aug, [facility] [address] [id number] [address] [place] [address], [place] [address] Aug, [facility] [address] [id number] [facility] [place] [address] 21 Aug, 2011 [facility] [address] [id number] [address] [place] [address], [place] [address] 20 Aug, 2011 [facility] [address] [id number] [facility] [place] [address] 19 Aug, 2011 [facility] [address] [id number] [address] [place] [address], [place] [address] 16 Aug, 2011 [facility] [address] [id number] [address] [place] [address], [place] [address] 15 Aug, 2011 [facility] [address] [id number] [address] [place] [address], [place] [address] 15 Aug, 2011 [facility] [address] [id number] [address] [place] [address], [place] [address] 14 Aug, 2011 [facility] [address] [id number] [address] [place] [address], [place] [address] 12 Aug, 2011 [facility] [address] [id number] [address] [place] [address], [place] [address] 08 Aug, 2011 [facility] [address] [id number] [address] [place] [address], [place] [address] 15 Jul, 2011 [facility] [address] [id number] [address] [place] [address], [place] [address] 15 Jul, 2011 [facility] [address] [id number] [address] [place] [address], [place] [address] 14 Jul, 2011 [facility] [address] [id number] [address] [place] [address], [place] [address] 06 Jul, 2011 [facility] [address] [id number] [address] [place] [address], [place] [address] 02 Jul, 2011 [facility] [address] [id number] [address] [place] [address], [place] [address] 18 Jun, 2011 [facility] [address] [id number] [address] [place] [id number] Jun, [facility] [address] [id number] [address] [place] [address], [place] [address] Jun, [facility] [address] [id number] [address] [place] [id number] May, [facility] [address] [id number] [address] [place] [address], [place] [address] May, [facility] [address] [id number] [address] [place] [phone] May, [facility] [address] [id number] [address] [place] [address], [place] [address] May, [facility] [address] [id number] [address] [place] [address], [place] [address] 14 May, 2011 [facility] [address] [id number] [address] [place] [id number] 16 Apr, 2011 [facility] [address] [id number] [address] [place] [id number] 16 Apr, 2011 [facility] [address] [id number] [address] [place] [id number] 15 Apr, 2011 [facility] [address] [id number] [address] [place] [id number] 14 Apr, 2011 [facility] [address] [id number] [address] [place] [id number] 25 Mar, 2011 [facility] [address] [id number] [address] [place] [id number] 24 Mar, 2011 [facility] [address] [id number] [address] [place] [id number] 19 Mar, 2011 [facility] [address] [id number] [address] [place] [id number] 19 Mar, 2011 [facility] [address] [id number] [address] [place] [id number] 17 Mar, 2011 [facility] [address] [id number] [address] [place] [id number] 17 Mar, 2011 [facility] [address] [id number] [address] [place] [id number] 16 Feb, 2011 [facility] [address] [id number] [address] [place] [phone] Nov, [facility] [address] [address] [id number] [address] [place] [phone] Aug, [facility] [address] [id number] [address] [place] [phone] Apr, [facility] [address] [facility] [id number] [address] [place] [phone] Mar, [facility] [address] [facility] [id number] [address] [place] [phone] Apr, [facility] [address] [facility] [id number] [address] [place] [phone] Apr, [facility] [address] [facility] [id number] [address] [place] [phone] Sep, [facility] [address] [facility] [id number] [address] [place] [phone] Mar, IMMUNIZATIONS No Known Immunizations SOCIAL HISTORY [...] ER for Kidney pain/Stones 06/19/18 [facility]
--- OUTSIDE RECORDS SUMMARY | 2019-12-26 10:56 | XMS REPORT ---
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 [place] [address], [place] [address] Apr, [facility] [address] [id number] [address] [place] [address], [place] [address] Apr, [facility] [address] [id number] [address] [place] [address], [place] [address] Apr, [facility] [address] [id number] [address] [place] [address], [place] [address] Apr, [facility] [address] [id number] [address] [place] [address], [place] [address] Apr, [facility] [address] [id number] [address] [place] [address], [place] [address] Mar, [facility] [address] [id number] [address] [place] [address], [place] [address] Mar, [facility] [address] [id number] [address] [place] [address], [place] [address] Feb, [facility] [address] [id number] [address] [place] [address], [place] [address] Feb, [facility] [address] [id number] [address] [place] [address], [place] [address] Dec, [facility] [address] [id number] [address] [place] [address], [place] [address] Dec, [facility] [address] [id number] [address] [place] [address], [place] [address] Dec, [facility] [address] [id number] [address] [place] [address], [place] [address] Dec, [facility] [address] [id number] [facility] [place] [address] Dec, [facility] [address] [id number] [address] [place] [address], [place] [address] Dec, [facility] [address] [id number] [address] [place] [address], [place] [address] Dec, [facility] [address] [id number] [address] [place] [address], [place] [address] Nov, [facility] [address] [id number] [address] [place] [address], [place] [address] Nov, [facility] [address] [id number] [address] [place] [address], [place] [address] [address], [facility] [address] [id number] [address] [place] [address], [place] [address] Nov, [facility] [address] [id number] [address] [place] [address], [place] [address] October, [facility] [address] [id number] [address] [place] [address], [place] [address] October, [facility] [address] [id number] [address] [place] [address], [place] [address] October, [facility] [address] [id number] [address] [place] [address], [place] [address] October, [facility] [address] [id number] [address] [place] [address], [place] [address] Sep, [facility] [address] [id number] [address] [place] [address], [place] [address] Aug, [facility] [address] [id number] [address] [place] [address], [place] [address] Aug, [facility] [address] [id number] [address] [place] [address], [place] [address] Aug, [facility] [address] [id number] [address] [place] [address], [place] [address] Aug, [facility] [address] [id number] [address] [place] [address], [place] [address] Aug, [facility] [address] [id number] [address] [place] [address], [place] [address] Jul, [facility] [address] [id number] [address] [place] [address], [place] [address] Jul, [facility] [address] [id number] [address] [place] [address], [place] [address] Jul, [facility] [address] [id number] [address] [place] [address], [place] [address] Jul, [facility] [address] [id number] [address] [place] [address], [place] [address] Jul, [facility] [address] [id number] [address] [place] [address], [place] [address] Jul, [facility] [address] [id number] [address] [place] [address], [place] [address] Jul, [facility] [address] [id number] [address] [place] [address], [place] [address] 15 Jul, 2012 [facility] [address] [id number] [address] [place] [address], [place] [address] 14 Jul, 2012 [facility] [address] [id number] [address] [place] [address], [place] [address] Jul, [facility] [address] [id number] [address] [place] [address], [place] [address] Jun, [facility] [address] [id number] [address] [place] [address], [place] [address] Jun, [facility] [address] [id number] [address] [place] [address], [place] [address] Jun, [facility] [address] [id number] [address] [place] [address], [place] [address] May, [facility] [address] [id number] [address] [place] [address], [place] [address] May, [facility] [address] [id number] [address] [place] [address], [place] [address] Apr, [facility] [address] [id number] [address] [place] [address], [place] [address] Apr, [facility] [address] [id number] [address] [place] [address], [place] [address] Apr, [facility] [address] [id number] [address] [place] [address], [place] [address] Apr, [facility] [address] [id number] [address] [place] [address], [place] [address] Apr, [facility] [address] [id number] [address] [place] [address], [place] [address] Apr, [facility] [address] [id number] [address] [place] [address], [place] [address] Apr, [facility] [address] [id number] [address] [place] [address], [place] [address] Apr, [facility] [address] [id number] [address] [place] [address], [place] [address] Mar, [facility] [address] [id number] [address] [place] [address], [place] [address] 31 Mar, 2012 [facility] [address] [id number] [address] [place] [address], [place] [address] 31 Mar, 2012 [facility] [address] [id number] [address] [place] [address], [place] [address] 31 Mar, 2012 [facility] [address] [id number] [address] [place] [address], [place] [address] 15 Mar, 2012 [facility] [address] [id number] [address] [place] [address] 15 Mar, 2012 [facility] [address] [id number] [address] [place] [address] [address] Mar, [facility] [address] [id number] [address] [place] [address], [place] [address] Mar, [facility] [address] [id number] [address] [place] [address], [place] [address] Mar, [facility] [address] [id number] [address] [place] [address], [place] [address] Feb, [facility] [address] [id number] [address] [place] [address], [place] [address] Jan, [facility] [address] [id number] [address] [place] [address], [place] [address] Jan, [facility] [address] [id number] [address] [place] [address], [place] [address] Jan, [facility] [address] [id number] [address] [place] [address], [place] [address] Dec, [facility] [address] [id number] [address] [place] [address], [place] [address] Dec, [facility] [address] [id number] [address] [place] [address], [place] [address] Dec, [facility] [address] [id number] [address] [place] [address], [place] [address] Nov, [facility] [address] [id number] [address] [place] [address], [place] [address] October, [facility] [address] [id number] [address] [place] [address], [place] [address] October, [facility] [address] [id number] [address] [place] [address], [place] [address] October, [facility] [address] [id number] [address] [place] [address], [place] [address] October, [facility] [address] [id number] [address] [place] [address], [place] [address] October, [facility] [address] [id number] [facility] [place] [address] 30 Sep, 2011 [facility] [address] [id number] [address] [place] [address], [place] [address] 23 Sep, 2011 [facility] [address] [id number] [address] [place] [address], [place] [address] 13 Sep, 2011 [facility] [address] [id number] [address] [place] [address], [place] [address] 12 Sep, 2011 [facility] [address] [id number] [address] [place] [address], [place] [address] 12 Sep, 2011 [facility] [address] [id number] [address] [place] [address], [place] [address] 11 Sep, 2011 [facility] [address] [id number] [address] [place] [address], [place] [address] 11 Sep, 2011 [facility] [address] [id number] [address] [place] [address], [place] [address] 28 Aug, 2011 [facility] [address] [id number] [address] [place] [address], [place] [address] 23 Aug, 2011 [facility] [address] [id number] [address] [place] [address], [place] [address] 21 Aug, 2011 [facility] [address] [id number] [address] [place] [address], [place] [address] 21 Aug, 2011 [facility] [address] [id number] [address] [place] [address], [place] [address] 20 Aug, 2011 [facility] [address] [id number] [address] [place] [address], [place] [address] 19 Aug, 2011 [facility] [address] [id number] [address] [place] [address], [place] [address] 16 Aug, 2011 [facility] [address] [id number] [address] [place] [address], [place] [address] 15 Aug, 2011 [facility] [address] [id number] [address] [place] [address], [place] [address] 15 Aug, 2011 [facility] [address] [id number] [address] [place] [address], [place] [address] 14 Aug, 2011 [facility] [address] [id number] [address] [place] [address], [place] [address] Aug, [facility] [address] [id number] [address] [place] [address], [place] [address] 08 Aug, 2011 [facility] [address] [id number] [address] [place] [address], [place] [address] 15 Jul, 2011 [facility] [address] [id number] [address] [place] [address], [place] [address] Jul, [facility] [address] [id number] [address] [place] [address], [place] [address] 14 Jul, 2011 [facility] [address] [id number] [address] [place] [address], [place] [address] 06 Jul, 2011 [facility] [address] [id number] [address] [place] [address], [place] [address] Jul, [facility] [address] [id number] [address] [place] [address], [place] [address] Jun, [facility] [address] [id number] [address] [place] [address], [place] [address] Jun, [facility] [address] [id number] [address] [place] [address], [place] [address] Jun, [facility] [address] [id number] [address] [place] [address], [place] [address] May, [facility] [address] [id number] [address] [place] [address], [place] [address] May, [facility] [address] [id number] [address] [place] [address], [place] [address] May, [facility] [address] [id number] [address] [place] [address], [place] [address] May, [facility] [address] [id number] [address] [place] [id number] 14 May, 2011 [facility] [address] [id number] [address] [place] [address], [place] [address] 16 Apr, 2011 [facility] [address] [id number] [address] [place] [address] 16 Apr, 2011 [facility] [address] [id number] [address] [place] [address], [place] [address] 15 Apr, 2011 [facility] [address] [id number] [address] [place] [address], [place] [address] 14 Apr, 2011 [facility] [address] [id number] [address] [place] [address], [place] [address] 25 Mar, 2011 [facility] [address] [id number] [address] [place] [address], [place] [address] 24 Mar, 2011 [facility] [address] [id number] [address] [place] [address] 19 Mar, 2011 [facility] [address] [id number] [address] [place] [address], [place] [address] 19 Mar, 2011 [facility] [address] [id number] [address] [place] [address], [place] [address] 17 Mar, 2011 [facility] [address] [id number] [address] [place] [address] 17 Mar, 2011 [facility] [address] [id number] [address] [place] [address], [place] [address] 16 Feb, 2011 [facility] [address] [id number] [address] [place] [id number] 10 Nov, 2010 [facility] [address] [id number] [address] [place] [address] 17 Aug, 2010 [facility] [address] [id number] [address] [place] [address] 11 Apr, 2010 [facility] [address] [id number] [address] [place] [id number] 16 Mar, 2010 [facility] [address] [facility] [id number] [address] [place] [id number] Apr, [facility] [address] [facility] [id number] [address] [place] [id number] Apr, [facility] [address] [facility] [id number] [address] [place] [phone] Sep, [facility] [address] [facility] [id number] [address] [place] [address] Mar, IMMUNIZATIONS No Known Immunizations SOCIAL HISTORY Never Assessed REASON FOR VISIT PLAN OF CARE VITAL SIGNS Height 63 in 2012-07-31 Weight 218.12 lbs 2012-07-31 Temperature 97.8 degrees Fahrenheit 2012-07-31 Heart Rate 80 bpm 2012-07-31 Respiratory Rate 18 2012-07-31 Blood pressure systolic 120 mmHg 2012-07-31 Blood pressure diastolic 78 mmHg 2012-07-31 MEDICATIONS Unknown Medications RESULTS No Results PROCEDURES [...] ER for Kidney pain/Stones 06/19/18 Hospitalization History [facility] X4 days 9
--- OUTSIDE RECORDS SUMMARY | 2019-12-26 10:56 | XMS REPORT ---
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 [place] [address] Jun, [facility] [address] [id number] [address] [place] [address], [place] [address] Jun, [facility] [address] [id number] [address] [place] [address], [place] [address] Apr, [facility] [address] [id number] [address] [place] [address], [place] [address] Apr, [facility] [address] [id number] [address] [place] [address], [place] [address] Apr, [facility] [address] [id number] [address] [place] [address], [place] [address] Apr, [facility] [address] [id number] [address] [place] [address], [place] [address] Apr, [facility] [address] [id number] [address] [place] [address], [place] [address] Apr, [facility] [address] [id number] [address] [place] [address], [place] [address] Apr, [facility] [address] [id number] [address] [place] [address], [place] [address] Apr, [facility] [address] [id number] [address] [place] [address], [place] [address] Mar, [facility] [address] [id number] [address] [place] [address], [place] [address] Mar, [facility] [address] [id number] [address] [place] [address], [place] [address] Feb, [facility] [address] [id number] [address] [place] [address], [place] [address] Feb, [facility] [address] [id number] [address] [place] [address], [place] [address] Dec, [facility] [address] [id number] [address] [place] [address], [place] [address] Dec, [facility] [address] [id number] [address] [place] [address], [place] [address] Dec, [facility] [address] [id number] [address] [place] [address], [place] [address] Dec, [facility] [address] [id number] [address] [place] [address], [place] [address] Dec, [facility] [address] [id number] [address] [place] [address], [place] [address] Dec, [facility] [address] [id number] [address] [place] [address], [place] [address] Dec, [facility] [address] [id number] [address] [place] [address], [place] [address] Nov, [facility] [address] [id number] [address] [place] [address], [place] [address] Nov, [facility] [address] [id number] [address] [place] [address], [place] [address] Nov, [facility] [address] [id number] [address] [place] [address], [place] [address] Nov, [facility] [address] [id number] [address] [place] [address], [place] [address] October, [facility] [address] [id number] [address] [place] [address], [place] [address] October, [facility] [address] [id number] [address] [place] [address], [place] [address] October, [facility] [address] [id number] [address] [place] [address], [place] [address] October, [facility] [address] [id number] [address] [place] [address], [place] [address] Sep, [facility] [address] [id number] [address] [place] [address], [place] [address] Aug, [facility] [address] [id number] [address] [place] [address], [place] [address] 29 Aug, 2012 [facility] [address] [id number] [address] [place] [address], [place] [address] Aug, [facility] [address] [id number] [address] [place] [address], [place] [address] Aug, [facility] [address] [id number] [address] [place] [address], [place] [address] Aug, [facility] [address] [id number] [address] [place] [address], [place] [address] 27 Jul, 2012 [facility] [address] [id number] [address] [place] [address], [place] [address] Jul, [facility] [address] [id number] [address] [place] [address], [place] [address] 26 Jul, 2012 [facility] [address] [id number] [address] [place] [address], [place] [address] 25 Jul, 2012 [facility] [address] [id number] [address] [place] [address], [place] [address] 25 Jul, 2012 [facility] [address] [id number] [address] [place] [address], [place] [address] 23 Jul, 2012 [facility] [address] [id number] [address] [place] [address], [place] [address] 20 Jul, 2012 [facility] [address] [id number] [address] [place] [address], [place] [address] 15 Jul, 2012 [facility] [address] [id number] [address] [place] [address], [place] [address] 14 Jul, 2012 [facility] [address] [id number] [address] [place] [address], [place] [address] 11 Jul, 2012 [facility] [address] [id number] [address] [place] [address], [place] [address] 31 Jun, 2012 [facility] [address] [id number] [address] [place] [address], [place] [address] Jun, [facility] [address] [id number] [address] [place] [address], [place] [address] Jun, [facility] [address] [id number] [address] [place] [address], [place] [address] May, [facility] [address] [id number] [address] [place] [address], [place] [address] May, [facility] [address] [id number] [address] [place] [address], [place] [address] Apr, [facility] [address] [id number] [address] [place] [address], [place] [address] Apr, [facility] [address] [id number] [address] [place] [address], [place] [address] Apr, [facility] [address] [id number] [address] [place] [address], [place] [address] Apr, [facility] [address] [id number] [address] [place] [address], [place] [address] Apr, [facility] [address] [id number] [address] [place] [address], [place] [address] Apr, [facility] [address] [id number] [address] [place] [address], [place] [address] Apr, [facility] [address] [id number] [address] [place] [address], [place] [address] Apr, [facility] [address] [id number] [address] [place] [address], [place] [address] Mar, [facility] [address] [id number] [address] [place] [address], [place] [address] Mar, [facility] [address] [id number] [address] [place] [address], [place] [address] Mar, [facility] [address] [id number] [address] [place] [address], [place] [address] Mar, [facility] [address] [id number] [address] [place] [address] [place] [address] 15 Mar, 2012 [facility] [address] [id number] [address] [place] [address], [place] [address] 15 Mar, 2012 [facility] [address] [id number] [address] [place] [address], [place] [address] Mar, [facility] [address] [id number] [address] [place] [address], [place] [address] Mar, [facility] [address] [id number] [address] [place] [address], [place] [address] Mar, [facility] [address] [id number] [address] [place] [address], [place] [address] Feb, [facility] [address] [id number] [address] [place] [address], [place] [address] Jan, [facility] [address] [id number] [address] [place] [address], [place] [address] Jan, [facility] [address] [id number] [address] [place] [address], [place] [address] Jan, [facility] [address] [id number] [address] [place] [address], [place] [address] Dec, [facility] [address] [id number] [address] [place] [address], [place] [address] Dec, [facility] [address] [id number] [address] [place] [address], [place] [address] Dec, [facility] [address] [id number] [address] [place] [address], [place] [address] Nov, [facility] [address] [id number] [address] [place] [address], [place] [address] October, [facility] [address] [id number] [address] [place] [address], [place] [address] October, [facility] [address] [id number] [address] [place] [address], [place] [address] October, [facility] [address] [id number] [facility] [place] [address] October, [facility] [address] [id number] [address] [place] [address], [place] [address] October, [facility] [address] [id number] [address] [place] [address], [place] [address] 30 Sep, 2011 [facility] [address] [id number] [address] [place] [address], [place] [address] Sep, [facility] [address] [id number] [address] [place] [address], [place] [address] Sep, [facility] [address] [id number] [address] [place] [address], [place] [address] Sep, [facility] [address] [id number] [address] [place] [address], [place] [address] Sep, [facility] [address] [id number] [address] [place] [address], [place] [address] Sep, [facility] [address] [id number] [address] [place] [address], [place] [address] Sep, [facility] [address] [id number] [address] [place] [address], [place] [address] Aug, [facility] [address] [id number] [address] [place] [address], [place] [address] Aug, [facility] [address] [id number] [address] [place] [address], [place] [address] Aug, [facility] [address] [id number] [address] [place] [address], [place] [address] Aug, [facility] [address] [id number] [address] [place] [address], [place] [address] 20 Aug, 2011 [facility] [address] [id number] [address] [place] [address], [place] [address] 19 Aug, 2011 [facility] [address] [id number] [address] [place] [address], [place] [address] 16 Aug, 2011 [facility] [address] [id number] [address] [place] [address], [place] [address] 15 Aug, 2011 [facility] [address] [id number] [address] [place] [address], [place] [address] 15 Aug, 2011 [facility] [address] [id number] [address] [place] [address], [place] [address] 14 Aug, 2011 [facility] [address] [id number] [address] [place] [address], [place] [address] 12 Aug, 2011 [facility] [address] [id number] [address] [place] [address], [place] [address] 08 Aug, 2011 [facility] [address] [id number] [address] [place] [address], [place] [address] 15 Jul, 2011 [facility] [address] [id number] [address] [place] [address], [place] [address] 15 Jul, 2011 [facility] [address] [id number] [address] [place] [address], [place] [address] 14 Jul, 2011 [facility] [address] [id number] [address] [place] [address], [place] [address] 06 Jul, 2011 [facility] [address] [id number] [address] [place] [address], [place] [address] 02 Jul, 2011 [facility] [address] [id number] [address] [place] [address], [place] [address] Jun, [facility] [address] [id number] [address] [place] [address], [place] [address] Jun, [facility] [address] [id number] [address] [place] [address], [place] [address] Jun, [facility] [address] [id number] [address] [place] [address], [place] [address] May, [facility] [address] [id number] [address] [place] [address], [place] [address] May, [facility] [address] [id number] [address] [place] [address], [place] [address] 19 May, 2011 [facility] [address] [id number] [address] [place] [address], [place] [address] 19 May, 2011 [facility] [address] [id number] [address] [place] [address], [place] [address] 14 May, 2011 [facility] [address] [id number] [address] [place] [address], [place] [address] 16 Apr, 2011 [facility] [address] [id number] [address] [place] [address], [place] [address] 16 Apr, 2011 [facility] [address] [id number] [address] [place] [address], [place] [address] 15 Apr, 2011 [facility] [address] [id number] [address] [place] [address], [place] [address] 14 Apr, 2011 [facility] [address] [id number] [address] [place] [address], [place] [address] 25 Mar, 2011 [facility] [address] [id number] [address] [place] [address], [place] [address] 24 Mar, 2011 [facility] [address] [id number] [address] [place] [address], [place] [address] 19 Mar, 2011 [facility] [address] [id number] [address] [place] [address], [place] [address] 19 Mar, 2011 [facility] [address] [id number] [address] [place] [address], [place] [address] 17 Mar, 2011 [facility] [address] [id number] [address] [place] [address], [place] [address] 17 Mar, 2011 [facility] [address] [id number] [address] [place] [address], [place] [address] 16 Feb, 2011 [facility] [address] [id number] [address] [place] [address], [place] [address] Nov, [facility] [address] [id number] [address] [place] [address], [place] [address] Aug, [facility] [address] [facility] [id number] [address] [place] [address] 11 Apr, 2010 [facility] [facility] [address] [facility] [id number] [address] [place] [id number] Mar, [facility] [address] [facility] [id number] [address] [place] [id number] Apr, [facility] [address] [facility] [id number] [address] [place] [id number] Apr, [facility] [address] [facility] [id number] [address] [place] [id number] Sep, [facility] [address] [facility] [id number] [address] [place] [id number] 17 Mar, 2008 IMMUNIZATIONS No Known Immunizations [...] pain/Stones 06/19/18 Hospitalization History [facility] Gleason X4 days 9
--- OUTSIDE RECORDS SUMMARY | 2019-12-26 10:56 | XMS REPORT ---
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 [address] [id number] [address] [place] [address], [place] [address] Apr, [facility] [address] [id number] [address] [place] [address], [place] [address] Apr, [facility] [address] [id number] [address] [place] [address], [place] [address] Apr, [facility] [address] [id number] [address] [place] [address], [place] [address] Apr, [facility] [address] [id number] [address] [place] [address], [place] [address] Apr, [facility] [address] [id number] [address] [place] [address], [place] [address] Apr, [facility] [address] [id number] [address] [place] [address], [place] [address] Apr, [facility] [address] [id number] [address] [place] [address], [place] [address] Apr, [facility] [address] [id number] [address] [place] [address], [place] [address] Mar, [facility] [address] [id number] [address] [place] [address], [place] [address] Mar, [facility] [address] [id number] [address] [place] [address], [place] [address] Feb, [facility] [address] [id number] [address] [place] [address], [place] [address] Feb, [facility] [address] [id number] [address] [place] [address], [place] [address] Dec, [facility] [address] [id number] [address] [place] [address], [place] [address] Dec, [facility] [address] [id number] [address] [place] [address], [place] [address] Dec, [facility] [address] [id number] [address] [place] [address], [place] [address] Dec, [facility] [address] [id number] [address] [place] [address], [place] [address] Dec, [facility] [address] [id number] [address] [place] [address], [place] [address] Dec, [facility] [address] [id number] [address] [place] [address], [place] [address] Dec, [facility] [address] [id number] [address] [place] [address], [place] [address] Nov, [facility] [address] [id number] [address] [place] [address], [place] [address] Nov, [facility] [address] [id number] [address] [place] [address], [place] [address] Nov, [facility] [address] [id number] [address] [place] [address], [place] [address] Nov, [facility] [address] [id number] [address] [place] [address], [place] [address] October, [facility] [address] [id number] [address] [place] [address], [place] [address] October, [facility] [address] [id number] [address] [place] [address], [place] [address] October, [facility] [address] [id number] [address] [place] [address], [place] [address] October, [facility] [address] [id number] [address] [place] [address], [place] [address] Sep, [facility] [address] [id number] [address] [place] [address], [place] [address] Aug, [facility] [address] [id number] [address] [place] [address], [place] [address] 29 Aug, 2012 [facility] [address] [id number] [address] [place] [address], [place] [address] Aug, [facility] [address] [id number] [address] [place] [address], [place] [address] Aug, [facility] [address] [id number] [address] [place] [address], [place] [address] Aug, [facility] [address] [id number] [address] [place] [address], [place] [address] 27 Jul, 2012 [facility] [address] [id number] [address] [place] [address], [place] [address] Jul, [facility] [address] [id number] [address] [place] [address], [place] [address] 26 Jul, 2012 [facility] [address] [id number] [address] [place] [address], [place] [address] 25 Jul, 2012 [facility] [address] [id number] [address] [place] [address], [place] [address] 25 Jul, 2012 [facility] [address] [id number] [address] [place] [address], [place] [address] 23 Jul, 2012 [facility] [address] [id number] [address] [place] [address], [place] [address] 20 Jul, 2012 [facility] [address] [id number] [address] [place] [address], [place] [address] 15 Jul, 2012 [facility] [address] [id number] [address] [place] [address], [place] [address] 14 Jul, 2012 [facility] [address] [id number] [address] [place] [address], [place] [address] 11 Jul, 2012 [facility] [address] [id number] [address] [place] [address], [place] [address] 31 Jun, 2012 [facility] [address] [id number] [address] [place] [address], [place] [address] Jun, [facility] [address] [id number] [address] [place] [address], [place] [address] Jun, [facility] [address] [id number] [address] [place] [address], [place] [address] May, [facility] [address] [id number] [address] [place] [address], [place] [address] May, [facility] [address] [id number] [address] [place] [address], [place] [address] Apr, [facility] [address] [id number] [address] [place] [address], [place] [address] Apr, [facility] [address] [id number] [address] [place] [address], [place] [address] Apr, [facility] [address] [id number] [address] [place] [address], [place] [address] Apr, [facility] [address] [id number] [address] [place] [address], [place] [address] Apr, [facility] [address] [id number] [address] [place] [address], [place] [address] Apr, [facility] [address] [id number] [address] [place] [address], [place] [address] Apr, [facility] [address] [id number] [address] [place] [address], [place] [address] Apr, [facility] [address] [id number] [address] [place] [address], [place] [address] Mar, [facility] [address] [id number] [address] [place] [address], [place] [address] Mar, [facility] [address] [id number] [address] [place] [address], [place] [address] Mar, [facility] [address] [id number] [address] [place] [address], [place] [address] Mar, [facility] [address] [id number] [address] [place] [address] [place] [id number] 15 Mar, 2012 [facility] [address] [id number] [address] [place] [address], [place] [id number] 15 Mar, 2012 [facility] [address] [id number] [address] [place] [address], [place] [id number] Mar, [facility] [address] [id number] [address] [place] [address], [place] [address] Mar, [facility] [address] [id number] [address] [place] [address], [place] [id number] Mar, [facility] [address] [id number] [address] [place] [address], [place] [id number] Feb, [facility] [address] [id number] [address] [place] [address], [place] [id number] Jan, [facility] [address] [id number] [address] [place] [address], [place] [address] Jan, [facility] [address] [id number] [address] [place] [address], [place] [address] Jan, [facility] [address] [id number] [address] [place] [address], [place] [address] Dec, [facility] [address] [id number] [address] [place] [address], [place] [address] Dec, [facility] [address] [id number] [address] [place] [address], [place] [address] Dec, [facility] [address] [id number] [address] [place] [address], [place] [address] Nov, [facility] [address] [id number] [address] [place] [address], [place] [address] October, [facility] [address] [id number] [address] [place] [address], [place] [id number] October, [facility] [address] [id number] [address] [place] [address], [place] [address] October, [facility] [address] [id number] [facility] [place] [address] October, [facility] [address] [id number] [address] [place] [address], [place] [address] October, [facility] [address] [id number] [address] [place] [address], [place] [address] 30 Sep, 2011 [facility] [address] [id number] [address] [place] [address], [place] [address] Sep, [facility] [address] [id number] [address] [place] [address], [place] [address] Sep, [facility] [address] [id number] [address] [place] [address], [place] [address] Sep, [facility] [address] [id number] [address] [place] [address], [place] [id number] Sep, [facility] [address] [id number] [address] [place] [address], [place] [address] Sep, [facility] [address] [id number] [address] [place] [address], [place] [address] Sep, [facility] [address] [id number] [address] [place] [address], [place] [id number] Aug, [facility] [address] [id number] [address] [place] [address], [place] [address] Aug, [facility] [address] [id number] [address] [place] [address], [place] [address] Aug, [facility] [address] [id number] [address] [place] [address], [place] [address] Aug, [facility] [address] [id number] [address] [place] [address], [place] [id number] 20 Aug, 2011 [facility] [address] [id number] [address] [place] [address], [place] [id number] 19 Aug, 2011 [facility] [address] [id number] [address] [place] [address], [place] [address] 16 Aug, 2011 [facility] [address] [id number] [address] [place] [address], [place] [address] 15 Aug, 2011 [facility] [address] [id number] [address] [place] [address], [place] [address] 15 Aug, 2011 [facility] [address] [id number] [address] [place] [address], [place] [id number] 14 Aug, 2011 [facility] [address] [id number] [address] [place] [address], [place] [id number] 12 Aug, 2011 [facility] [address] [id number] [address] [place] [address], [place] [id number] 08 Aug, 2011 [facility] [address] [id number] [address] [place] [address], [place] [id number] 15 Jul, 2011 [facility] [address] [id number] [address] [place] [address], [place] [address] 15 Jul, 2011 [facility] [address] [address] [id number] [address] [place] [address], [place] [id number] 14 Jul, 2011 [facility] [address] [id number] [address] [place] [address], [place] [id number] 06 Jul, 2011 [facility] [address] [id number] [address] [place] [address], [place] [id number] 02 Jul, 2011 [facility] [address] [id number] [address] [place] [address], [place] [id number] Jun, [facility] [address] [id number] [address] [place] [address], [place] [id number] Jun, [facility] [address] [id number] [address] [place] [address], [place] [id number] Jun, [facility] [address] [id number] [address] [place] [address], [place] [id number] May, [facility] [address] [id number] [address] [place] [address], [place] [id number] May, [facility] [address] [id number] [address] [place] [address], [place] [id number] 19 May, 2011 [facility] [address] [id number] [address] [place] [address], [place] [id number] 19 May, 2011 [facility] [address] [id number] [address] [place] [address], [place] [id number] 14 May, 2011 [facility] [address] [id number] [address] [place] [address], [place] [id number] 16 Apr, 2011 [facility] [address] [id number] [address] [place] [address], [place] [id number] 16 Apr, 2011 [facility] [address] [id number] [address] [place] [address], [place] [id number] 15 Apr, 2011 [facility] [address] [id number] [address] [place] [address], [place] [id number] 14 Apr, 2011 [facility] [address] [id number] [address] [place] [address], [place] [id number] 25 Mar, 2011 [facility] [address] [id number] [address] [place] [address], [place] [id number] 24 Mar, 2011 [facility] [address] [id number] [address] [place] [address], [place] [id number] 19 Mar, 2011 [facility] [address] [id number] [address] [place] [address], [place] [id number] 19 Mar, 2011 [facility] [address] [id number] [address] [place] [address], [place] [id number] 17 Mar, 2011 [facility] [address] [id number] [address] [place] [address], [place] [id number] 17 Mar, 2011 [facility] [address] [id number] [address] [place] [address], [place] [id number] 16 Feb, 2011 [facility] [address] [id number] [address] [place] [address], [place] [id number] Nov, [facility] [address] [id number] [address] [place] [address], [place] [id number] Aug, [facility] [address] [facility] [id number] [address] [place] [id number] [address], [address] [facility] [address] [facility] [id number] [address] [place] [id number] Mar, [facility] [address] [facility] [id number] [address] [place] [id number] Apr, [facility] [address] [facility] [id number] [address] [place] [id number] Apr, [facility] [address] [facility] [id number] [address] [place] [id number] Sep, [facility] [address] [facility] [id number] [address] [place] [id number] 17 Mar, 2008 IMMUNIZATIONS No Known Immunizations [...] ER for Kidney pain/Stones 06/19/18 Hospitalization History [facility] X4 days 9
--- OUTSIDE RECORDS SUMMARY | 2019-12-26 10:57 | XMS REPORT ---
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 [place] [facility] [address] [id number] [place] [address] Apr, [facility] [place] [facility] [address] [id number] [place] [address] Apr, [facility] [place] [facility] [address] [id number] [place] [address] Apr, [facility] [place] [facility] [address] [id number] [place] [address] Apr, [facility] [place] [facility] [address] [id number] [place] [address] Apr, [facility] [place] [facility] [address] [id number] [place] [address] Apr, [facility] [place] [facility] [address] [id number] [place] [address] Apr, [facility] [place] [facility] [address] [id number] [place] [address] Mar, [facility] [place] [facility] [address] [id number] [place] [address] Mar, [facility] [place] [facility] [address] [id number] [place] [address] Mar, [facility] [place] [facility] [address] [id number] [place] [address] Mar, [facility] [place] [facility] [address] [id number] [place] [address] Mar, [facility] [place] [facility] [address] [id number] [place] [address] Mar, [facility] [place] [facility] [address] [id number] [place] [address] Mar, [facility] [place] [facility] [address] [id number] [place] [address] Mar, [facility] [place] [facility] [address] [id number] [place] [address] Mar, [facility] [place] [facility] [address] [id number] [place] [address] Feb, [facility] [place] [facility] [address] [id number] [place] [address] Jan, [facility] [place] [facility] [address] [id number] [place] [address] Jan, [facility] [place] [facility] [address] [id number] [place] [address] Jan, [facility] [place] [facility] [address] [id number] [place] [address] Dec, [facility] [place] [facility] [address] [id number] [place] [address] Dec, [facility] [place] [facility] [address] [id number] [place] [address] Dec, [facility] [place] [facility] [address] [id number] [place] [address] Nov, [facility] [place] [facility] [address] [id number] [place] [address] October, [facility] [place] [facility] [address] [id number] [place] [address] October, [facility] [place] [facility] [address] [id number] [place] [address] October, [facility] [place] [facility] [address] [id number] [place] [address] October, [facility] [place] [facility] [address] [id number] [place] [address] October, [facility] [place] [facility] [address] [id number] [place] [address] Sep, [facility] [place] [facility] [address] [id number] [place] [address] Sep, [facility] [place] [facility] [address] [id number] [place] [address] Sep, [facility] [place] [facility] [address] [id number] [place] [address] Sep, [facility] [place] [facility] [address] [id number] [place] [address] Sep, [facility] [place] [facility] [address] [id number] [place] [address] 11 Sep, 2011 [facility] [place] [facility] [address] [facility] [id number] [place] [address] 11 Sep, 2011 [facility] [place] [facility] [address] [facility] [id number] [place] [address] 28 Aug, 2011 [facility] [place] [facility] [address] [facility] [id number] [place] [address] 23 Aug, 2011 [facility] [place] [facility] [address] [id number] [place] [address] 21 Aug, 2011 [facility] [place] [facility] [address] [facility] [id number] [place] [address] 21 Aug, 2011 [facility] [place] [facility] [address] [id number] [place] [address] 20 Aug, 2011 [facility] [place] [facility] [address] [facility] [id number] [place] [address] 19 Aug, 2011 [facility] [place] [facility] [address] [id number] [place] [address] 16 Aug, 2011 [facility] [place] [facility] [address] [facility] [id number] [place] [address] 15 Aug, 2011 [facility] [place] [facility] [address] [id number] [place] [address] 15 Aug, 2011 [facility] [place] [facility] [address] [id number] [place] [address] 14 Aug, 2011 [facility] [place] [facility] [address] [id number] [place] [address] 12 Aug, 2011 [facility] [place] [facility] [address] [facility] [id number] [place] [address] 08 Aug, 2011 [facility] [place] [facility] [address] [facility] [id number] [place] [address] 15 Jul, 2011 [facility] [place] [facility] [address] [facility] [id number] [place] [address] 15 Jul, 2011 [facility] [place] [facility] [address] [id number] [place] [address] 14 Jul, 2011 [facility] [place] [facility] [address] [id number] [place] [address] 06 Jul, 2011 [facility] [place] [facility] [address] [id number] [place] [address] Jul, [facility] [place] [facility] [address] [id number] [place] [address] Jun, [facility] [place] [facility] [address] [id number] [place] [address] Jun, [facility] [place] [facility] [address] [id number] [place] [address] Jun, [facility] [place] [facility] [address] [id number] [place] [address] May, [facility] [place] [facility] [address] [id number] [place] [address] May, [facility] [place] [facility] [id number] [place] [address] May, [facility] [place] [facility] [id number] [place] [address] May, [facility] [place] [facility] [address] [id number] [place] [address] May, [facility] [place] [facility] [id number] [place] [address] 16 Apr, 2011 [facility] [place] [facility] [id number] [place] [address] 16 Apr, 2011 [facility] [place] [facility] [address] [id number] [place] [address] 15 Apr, 2011 [facility] [place] [facility] [address] [id number] [place] [address] 14 Apr, 2011 [facility] [place] [facility] [id number] [place] [address] 25 Mar, 2011 [facility] [place] [facility] [address] [id number] [place] [address] 24 Mar, 2011 [facility] [place] [facility] [id number] [place] [address] Mar, [facility] [address] [id number] [place] [address] Mar, [facility] [id number] [place] [address] Mar, [facility] [id number] [place] [address] 17 Mar, 2011 [facility] [id number] [place] [address] 16 Feb, 2011 [facility] [id number] [place] [address] Nov, [facility] [address] [address] Aug, [facility] [id number] [place] [address] Apr, [facility] [address] [address] Mar, [facility] [id number] [place] [address] Apr, [facility] [id number] [place] [address] Apr, [facility] [id number] [place] [address] Sep, [facility] [id number] [place] [address] Mar, IMMUNIZATIONS No Known Immunizations SOCIAL HISTORY Never Assessed REASON FOR VISIT PLAN OF CARE VITAL SIGNS Height 63 in 2013-06-21 Weight 212.9 lbs 2013-06-21 Temperature 98.5 degrees Fahrenheit 2013-06-21 Heart Rate 78 bpm 2013-06-21 Respiratory Rate 16 2013-06-21 Blood pressure systolic 112 mmHg 2013-06-21 Blood pressure diastolic 76 mmHg 2013-06-21 MEDICATIONS Unknown Medications RESULTS No Results PROCEDURES Procedure Date Ordered Result Body Site INFLUENZA ASSAY W/OPTIC Jun 21, 2013 INSTRUCTIONS MEDICATIONS ADMINISTERED No Known Medications [...] for Kidney pain/Stones 06/19/18 Hospitalization History [facility] X4 days 9
--- OUTSIDE RECORDS SUMMARY | 2019-12-26 10:57 | XMS REPORT ---
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 [id number] [address] [place] [address], [place] [address] Apr, [facility] [address] [id number] [address] [place] [address], [place] [address] Apr, [facility] [address] [id number] [address] [place] [address], [place] [address] Apr, [facility] [address] [id number] [address] [place] [address], [place] [address] Mar, [facility] [address] [id number] [address] [place] [address], [place] [address] Mar, [facility] [address] [id number] [address] [place] [address], [place] [address] Feb, [facility] [address] [id number] [address] [place] [address], [place] [address] Feb, [facility] [address] [id number] [address] [place] [address], [place] [address] Dec, [facility] [address] [id number] [address] [place] [address], [place] [address] Dec, [facility] [address] [id number] [address] [place] [address], [place] [address] Dec, [facility] [address] [id number] [address] [place] [address], [place] [address] Dec, [facility] [address] [id number] [facility] [address] Dec, [facility] [address] [id number] [address] [place] [address], [place] [address] Dec, [facility] [address] [id number] [address] [place] [address], [place] [address] Dec, [facility] [address] [id number] [address] [place] [address], [place] [address] Nov, [facility] [address] [id number] [address] [place] [address], [place] [address] Nov, [facility] [address] [id number] [address] [place] [address], [place] [address] Nov, [facility] [address] [id number] [address] [place] [address], [place] [address] Nov, [facility] [address] [id number] [address] [place] [address], [place] [address] October, [facility] [address] [id number] [address] [place] [address], [place] [address] October, [facility] [address] [id number] [address] [place] [address], [place] [address] October, [facility] [address] [id number] [address] [place] [address], [place] [address] October, [facility] [address] [id number] [address] [place] [address], [place] [address] Sep, [facility] [address] [id number] [address] [place] [address], [place] [address] Aug, [facility] [address] [id number] [address] [place] [address], [place] [address] Aug, [facility] [address] [id number] [address] [place] [address], [place] [address] Aug, [facility] [address] [id number] [address] [place] [address], [place] [address] Aug, [facility] [address] [id number] [address] [place] [address], [place] [address] Aug, [facility] [address] [id number] [address] [place] [address], [place] [address] Jul, [facility] [address] [id number] [address] [place] [address], [place] [address] Jul, [facility] [address] [id number] [address] [place] [address], [place] [address] Jul, [facility] [address] [id number] [address] [place] [address], [place] [address] Jul, [facility] [address] [id number] [address] [place] [address], [place] [address] Jul, [facility] [address] [id number] [address] [place] [address], [place] [address] Jul, [facility] [address] [id number] [address] [place] [address], [place] [address] Jul, [facility] [address] [id number] [address] [place] [address], [place] [address] 15 Jul, 2012 [facility] [address] [id number] [address] [place] [address], [place] [address] 14 Jul, 2012 [facility] [address] [id number] [address] [place] [address], [place] [address] Jul, [facility] [address] [id number] [address] [place] [address], [place] [address] Jun, [facility] [address] [id number] [address] [place] [address], [place] [address] Jun, [facility] [address] [id number] [address] [place] [address], [place] [address] Jun, [facility] [address] [id number] [address] [place] [address], [place] [address] May, [facility] [address] [id number] [address] [place] [address], [place] [address] May, [facility] [address] [id number] [address] [place] [address], [place] [address] Apr, [facility] [address] [id number] [address] [place] [address], [place] [address] Apr, [facility] [address] [id number] [address] [place] [address], [place] [address] Apr, [facility] [address] [id number] [address] [place] [address], [place] [address] Apr, [facility] [address] [id number] [address] [place] [address], [place] [address] Apr, [facility] [address] [id number] [address] [place] [address], [place] [address] Apr, [facility] [address] [id number] [address] [place] [address], [place] [address] Apr, [facility] [address] [id number] [address] [place] [address], [place] [address] Apr, [facility] [address] [id number] [address] [place] [address], [place] [address] Mar, [facility] [address] [id number] [address] [place] [address], [place] [address] 31 Mar, 2012 [facility] [address] [id number] [address] [place] [address], [place] [address] 31 Mar, 2012 [facility] [address] [id number] [address] [place] [address], [place] [address] 31 Mar, 2012 [facility] [address] [id number] [address] [place] [address], [place] [address] 15 Mar, 2012 [facility] [address] [id number] [address] [place] [address] 15 Mar, 2012 [facility] [address] [id number] [address] [place] [address] [address] Mar, [facility] [address] [id number] [address] [place] [address], [place] [address] Mar, [facility] [address] [id number] [address] [place] [address], [place] [address] Mar, [facility] [address] [id number] [address] [place] [address], [place] [address] Feb, [facility] [address] [id number] [address] [place] [address], [place] [address] Jan, [facility] [address] [id number] [address] [place] [address], [place] [address] Jan, [facility] [address] [id number] [address] [place] [address], [place] [address] Jan, [facility] [address] [id number] [address] [place] [address], [place] [address] Dec, [facility] [address] [id number] [address] [place] [address], [place] [address] Dec, [facility] [address] [id number] [address] [place] [address], [place] [address] Dec, [facility] [address] [id number] [address] [place] [address], [place] [address] Nov, [facility] [address] [id number] [address] [place] [address], [place] [address] October, [facility] [address] [id number] [address] [place] [address], [place] [address] October, [facility] [address] [id number] [address] [place] [address], [place] [address] October, [facility] [address] [id number] [address] [place] [address], [place] [address] October, [facility] [address] [id number] [address] [place] [address], [place] [address] October, [facility] [address] [id number] [facility] [place] [address] 30 Sep, 2011 [facility] [address] [id number] [address] [place] [address], [place] [address] 23 Sep, 2011 [facility] [address] [id number] [address] [place] [address], [place] [address] 13 Sep, 2011 [facility] [address] [id number] [address] [place] [address], [place] [address] 12 Sep, 2011 [facility] [address] [id number] [address] [place] [address], [place] [address] 12 Sep, 2011 [facility] [address] [id number] [address] [place] [address], [place] [address] 11 Sep, 2011 [facility] [address] [id number] [address] [place] [address], [place] [address] 11 Sep, 2011 [facility] [address] [id number] [address] [place] [address], [place] [address] 28 Aug, 2011 [facility] [address] [id number] [address] [place] [address], [place] [address] 23 Aug, 2011 [facility] [address] [id number] [address] [place] [address], [place] [address] 21 Aug, 2011 [facility] [address] [id number] [address] [place] [address], [place] [address] 21 Aug, 2011 [facility] [address] [id number] [address] [place] [address], [place] [address] 20 Aug, 2011 [facility] [address] [id number] [address] [place] [address], [place] [id number] 19 Aug, 2011 [facility] [address] [id number] [address] [place] [address], [place] [id number] 16 Aug, 2011 [facility] [address] [id number] [address] [place] [address], [place] [id number] 15 Aug, 2011 [facility] [address] [id number] [address] [place] [address], [place] [id number] 15 Aug, 2011 [facility] [address] [id number] [address] [place] [address], [place] [id number] 14 Aug, 2011 [facility] [address] [id number] [address] [place] [address], [place] [id number] Aug, [facility] [address] [id number] [address] [place] [address], [place] [id number] 08 Aug, 2011 [facility] [address] [id number] [address] [place] [address], [place] [id number] 15 Jul, 2011 [facility] [address] [id number] [address] [place] [address], [place] [id number] Jul, [facility] [address] [id number] [address] [place] [address], [place] [id number] 14 Jul, 2011 [facility] [address] [id number] [address] [place] [address], [place] [id number] 06 Jul, 2011 [facility] [address] [id number] [address] [place] [address], [place] [address] Jul, [facility] [address] [id number] [address] [place] [address], [place] [id number] Jun, [facility] [address] [id number] [address] [place] [address], [place] [id number] Jun, [facility] [address] [id number] [address] [place] [address], [place] [address] Jun, [facility] [address] [id number] [address] [place] [address], [place] [id number] May, [facility] [address] [id number] [address] [place] [address], [place] [address] May, [facility] [address] [id number] [address] [place] [address], [place] [id number] May, [facility] [address] [id number] [address] [place] [address], [place] [id number] May, [facility] [address] [id number] [address] [place] [id number] 14 May, 2011 [facility] [address] [id number] [address] [place] [address], [place] [id number] 16 Apr, 2011 [facility] [address] [id number] [address] [place] [id number] 16 Apr, 2011 [facility] [address] [id number] [address] [place] [address], [place] [id number] 15 Apr, 2011 [facility] [address] [id number] [address] [place] [address], [place] [id number] 14 Apr, 2011 [facility] [address] [id number] [address] [place] [address], [place] [address] 25 Mar, 2011 [facility] [address] [id number] [address] [place] [address], [place] [id number] 24 Mar, 2011 [facility] [address] [id number] [address] [place] [id number] 19 Mar, 2011 [facility] [address] [id number] [address] [place] [address], [place] [id number] 19 Mar, 2011 [facility] [address] [id number] [address] [place] [address], [place] [id number] 17 Mar, 2011 [facility] [address] [id number] [address] [place] [id number] 17 Mar, 2011 [facility] [address] [id number] [address] [place] [address], [place] [id number] 16 Feb, 2011 [facility] [address] [id number] [address] [place] [id number] 10 Nov, 2010 [facility] [address] [id number] [address] [place] [id number] 17 Aug, 2010 [facility] [address] [id number] [address] [place] [id number] 11 Apr, 2010 [facility] [address] [id number] [address] [place] [id number] 16 Mar, 2010 [facility] [address] [facility] [id number] [address] [place] [id number] Apr, [facility] [address] [facility] [id number] [address] [place] [phone] Apr, [facility] [address] [facility] [id number] [address] [place] [id number] Sep, [facility] [address] [facility] [id number] [address] [place] [phone] Mar, IMMUNIZATIONS No Known Immunizations SOCIAL HISTORY [...] ER for Kidney pain/Stones 06/19/18 Hospitalization History [facility] X4 days 9
--- OUTSIDE RECORDS SUMMARY | 2019-12-26 10:58 | XMS REPORT ---
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 [id number] [place] [address] 14 Jul, 2011 [facility] [address] [id number] [place] [address] 06 Jul, 2011 [facility] [address] [id number] [place] [address] Jul, [facility] [address] [id number] [place] [address] Jun, [facility] [address] [id number] [place] [address] Jun, [facility] [address] [id number] [place] [address] Jun, [facility] [address] [id number] [place] [address] May, [facility] [address] [id number] [place] [address] May, [facility] [address] [id number] [place] [address] May, [facility] [address] [id number] [place] [address] May, [facility] [address] [id number] [place] [address] 14 May, 2011 [facility] [address] [id number] [place] [address] 16 Apr, 2011 [facility] [address] [id number] [place] [address] 16 Apr, 2011 [facility] [address] [id number] [place] [address] 15 Apr, 2011 [facility] [address] [id number] [place] [address] 14 Apr, 2011 [facility] [address] [id number] [place] [address] 25 Mar, 2011 [facility] [address] [id number] [place] [address] 24 Mar, 2011 [facility] [id number] [place] [address] Mar, [facility] [address] [id number] [place] [address] Mar, [facility] [address] [id number] [place] [address] Mar, [facility] [address] [id number] [place] [address] 17 Mar, 2011 [facility] [address] [id number] [place] [address] 16 Feb, 2011 [facility] [address] [id number] [place] [address] Nov, [facility] [address] [id number] [place] [address] Aug, [facility] [address] [id number] [place] [address] 11 Apr, 2010 [facility] [address] [id number] [place] [address] 16 Mar, 2010 [facility] [address] [id number] [place] [address] Apr, [facility] [address] [facility] [id number] [place] [address] Apr, [facility] [address] [facility] [id number] [place] [address] Sep, [facility] [address] [facility] [id number] [place] [address] Mar, IMMUNIZATIONS No Known Immunizations SOCIAL HISTORY [...] ER for Kidney pain/Stones 06/19/18 Hospitalization History [facility] X4 days 9
--- OUTSIDE RECORDS SUMMARY | 2019-12-26 10:58 | XMS REPORT ---
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 [place] [facility] [id number] [place] [address] Apr, [facility] [place] [facility] [address] [facility] [id number] [place] [address] Apr, [facility] [place] [facility] [address] [facility] [id number] [place] [address] Apr, [facility] [place] [facility] [address] [facility] [id number] [place] [address] Apr, [facility] [place] [facility] [address] [facility] [id number] [place] [address] Mar, [facility] [place] [facility] [address] [facility] [id number] [place] [address] Mar, [facility] [place] [facility] [address] [facility] [id number] [place] [address] Mar, [facility] [place] [facility] [address] [facility] [id number] [place] [address] Mar, [facility] [place] [facility] [address] [facility] [id number] [place] [address] Mar, [facility] [place] [facility] [address] [facility] [id number] [place] [address] Mar, [facility] [place] [facility] [address] [facility] [id number] [place] [address] Mar, [facility] [place] [facility] [address] [facility] [id number] [place] [address] Mar, [facility] [place] [facility] [address] [facility] [id number] [place] [address] Mar, [facility] [place] [facility] [address] [facility] [id number] [place] [address] Feb, [facility] [place] [facility] [address] [facility] [id number] [place] [address] Jan, [facility] [place] [facility] [address] [facility] [id number] [place] [address] Jan, [facility] [place] [facility] [address] [facility] [id number] [place] [address] Jan, [facility] [place] [facility] [address] [facility] [id number] [place] [address] Dec, [facility] [place] [facility] [address] [facility] [id number] [place] [address] Dec, [facility] [place] [facility] [address] [facility] [id number] [place] [address] Dec, [facility] [place] [facility] [address] [facility] [id number] [place] [address] Nov, [facility] [place] [facility] [address] [facility] [id number] [place] [address] October, [facility] [place] [facility] [address] [id number] [place] [address] October, [facility] [place] [facility] [address] [facility] [id number] [place] [address] October, [facility] [place] [facility] [address] [facility] [id number] [place] [address] October, [facility] [place] [facility] [address] [facility] [id number] [place] [address] October, [facility] [place] [facility] [address] [facility] [id number] [place] [address] Sep, [facility] [place] [facility] [address] [facility] [id number] [place] [address] Sep, [facility] [place] [facility] [address] [facility] [id number] [place] [address] Sep, [facility] [place] [facility] [address] [facility] [id number] [place] [address] Sep, [facility] [place] [facility] [address] [facility] [id number] [place] [address] Sep, [facility] [place] [facility] [address] [facility] [id number] [place] [address] Sep, [facility] [place] [facility] [address] [id number] [place] [address] Sep, [facility] [place] [facility] [address] [facility] [id number] [place] [address] Aug, [facility] [place] [facility] [address] [facility] [id number] [place] [address] Aug, [facility] [place] [facility] [address] [facility] [id number] [place] [address] Aug, [facility] [place] [facility] [address] [facility] [id number] [place] [address] Aug, [facility] [place] [facility] [address] [facility] [id number] [place] [address] 20 Aug, 2011 [facility] [place] [facility] [address] [facility] [id number] [place] [address] 19 Aug, 2011 [facility] [place] [facility] [address] [facility] [id number] [facility] [place] [address] 16 Aug, 2011 [facility] [place] [facility] [address] [facility] [id number] [facility] [place] [address] 15 Aug, 2011 [facility] [place] [facility] [address] [facility] [id number] [facility] [address] 15 Aug, 2011 [facility] [place] [facility] [address] [facility] [id number] [facility] [address] 14 Aug, 2011 [facility] [place] [facility] [address] [facility] [id number] [facility] [place] [address] 12 Aug, 2011 [facility] [place] [facility] [address] [facility] [id number] [facility] [place] [address] 08 Aug, 2011 [facility] [place] [facility] [address] [facility] [id number] [place] [address] 15 Jul, 2011 [facility] [place] [facility] [address] [facility] [id number] [facility] [address] 15 Jul, 2011 [facility] [place] [facility] [address] [facility] [id number] [place] [address] 14 Jul, 2011 [facility] [place] [facility] [address] [facility] [id number] [place] [address] 06 Jul, 2011 [facility] [place] [facility] [address] [facility] [id number] [place] [address] 02 Jul, 2011 [facility] [place] [facility] [address] [facility] [id number] [place] [address] Jun, [facility] [place] [facility] [address] [id number] [place] [address] Jun, [facility] [place] [facility] [address] [facility] [id number] [place] [address] Jun, [facility] [place] [facility] [address] [facility] [id number] [place] [address] May, [facility] [place] [facility] [address] [facility] [id number] [place] [address] May, [facility] [place] [facility] [address] [facility] [id number] [place] [address] 19 May, 2011 [facility] [place] [facility] [address] [facility] [id number] [place] [address] 19 May, 2011 [facility] [place] [facility] [address] [facility] [id number] [place] [address] 14 May, 2011 [facility] [place] [facility] [address] [facility] [id number] [place] [address] 16 Apr, 2011 [facility] [place] [facility] [address] [id number] [place] [address] 16 Apr, 2011 [facility] [place] [facility] [address] [id number] [place] [address] 15 Apr, 2011 [facility] [place] [facility] [address] [id number] [place] [address] 14 Apr, 2011 [facility] [place] [facility] [address] [id number] [place] [address] 25 Mar, 2011 [facility] [place] [facility] [address] [id number] [place] [address] 24 Mar, 2011 [facility] [place] [facility] [address] [id number] [place] [address] 19 Mar, 2011 [facility] [place] [facility] [address] [id number] [place] [address] 19 Mar, 2011 [facility] [place] [facility] [address] [id number] [place] [address] 17 Mar, 2011 [facility] [place] [facility] [address] [id number] [place] [address] 17 Mar, 2011 [facility] [place] [facility] [address] [id number] [place] [address] 16 Feb, 2011 [facility] [place] [facility] [id number] [place] [address] 10 Nov, 2010 [facility] [place] [facility] [address] [id number] [place] [address] 17 Aug, 2010 [facility] [place] [facility] [address] [id number] [place] [address] 11 Apr, 2010 [facility] [address] [facility] [id number] [place] [address] 16 Mar, 2010 [facility] [address] [id number] [place] [address] Apr, [facility] [address] [id number] [place] [address] Apr, [facility] [address] [id number] [place] [address] Sep, [facility] [address] [id number] [place] [address] 17 Mar, 2008 IMMUNIZATIONS No Known Immunizations [...] ER for Kidney pain/Stones 06/19/18 Hospitalization History [facility] X4 days 9
--- OUTSIDE RECORDS SUMMARY | 2019-12-26 10:58 | XMS REPORT ---
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 Aug, 2011 [facility] [address] [id number] [place] [address] 15 Aug, 2011 [facility] [address] [id number] [place] [address] 14 Aug, 2011 [facility] [address] [id number] [place] [address] 12 Aug, 2011 [facility] [address] [id number] [place] [address] 08 Aug, 2011 [facility] [address] [id number] [place] [address] 15 Jul, 2011 [facility] [address] [id number] [place] [address] 15 Jul, 2011 [facility] [address] [id number] [place] [address] 14 Jul, 2011 [facility] [address] [id number] [place] [address] 06 Jul, 2011 [facility] [address] [id number] [place] [address] 02 Jul, 2011 [facility] [address] [id number] [place] [address] Jun, [facility] [address] [id number] [place] [address] Jun, [facility] [address] [id number] [place] [address] Jun, [facility] [address] [id number] [place] [address] May, [facility] [address] [id number] [place] [address] May, [facility] [address] [id number] [place] [address] May, [facility] [address] [id number] [place] [address] May, [facility] [address] [id number] [place] [address] 14 May, 2011 [facility] [address] [id number] [place] [address] 16 Apr, 2011 [facility] [address] [id number] [place] [address] 16 Apr, 2011 [facility] [address] [id number] [place] [address] 15 Apr, 2011 [facility] [address] [id number] [place] [address] 14 Apr, 2011 [facility] [address] [id number] [place] [address] 25 Mar, 2011 [facility] [address] [id number] [place] [address] 24 Mar, 2011 [facility] [address] [id number] [place] [address] Mar, [facility] [address] [id number] [place] [address] Mar, [facility] [address] [id number] [place] [address] 17 Mar, 2011 [facility] [address] [id number] [place] [address] 17 Mar, 2011 [facility] [address] [id number] [place] [address] 16 Feb, 2011 [facility] [address] [id number] [place] [address] Nov, [facility] [address] [id number] [place] [address] Aug, [facility] [address] [address] Apr, [facility] [address] [address] Mar, [facility] [id number] [place] [address] Apr, [facility] [address] [address] Apr, [facility] [id number] [place] [address] Sep, [facility] [id number] [place] [address] Mar, IMMUNIZATIONS No Known Immunizations SOCIAL HISTORY Never Assessed REASON FOR VISIT PLAN OF CARE VITAL SIGNS Height 63 in 2013-07-05 Weight 212 lbs 2013-07-05 Temperature 98 degrees Fahrenheit 2013-07-05 Heart Rate 80 bpm 2013-07-05 Respiratory Rate 20 2013-07-05 Blood pressure systolic 120 mmHg 2013-07-05 Blood pressure diastolic 68 mmHg 2013-07-05 MEDICATIONS Unknown Medications RESULTS No Results PROCEDURES Procedure Date Ordered Result Body Site X-RAY EXAM OF FOOT Jul 05, 2013 INSTRUCTIONS MEDICATIONS ADMINISTERED No Known [...] ER for Kidney pain/Stones 06/19/18 Hospitalization History [facility] X4 days 9
--- OUTSIDE RECORDS SUMMARY | 2019-12-26 10:59 | XMS REPORT ---
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 [facility] [address] [id number] [place] [address] Jun, [facility] [address] [id number] [place] [address] May, [facility] [address] [id number] [place] [address] May, [facility] [address] [id number] [place] [address] May, [facility] [address] [id number] [place] [address] May, [facility] [address] [id number] [place] [address] 14 May, 2011 [facility] [address] [id number] [place] [address] 16 Apr, 2011 [facility] [address] [id number] [place] [address] 16 Apr, 2011 [facility] [address] [id number] [place] [address] 15 Apr, 2011 [facility] [address] [id number] [place] [address] 14 Apr, 2011 [facility] [address] [id number] [place] [address] 25 Mar, 2011 [facility] [address] [id number] [place] [address] 24 Mar, 2011 [facility] [address] [id number] [place] [address] 19 Mar, 2011 [facility] [address] [id number] [place] [address] 19 Mar, 2011 [facility] [address] [id number] [place] [address] 17 Mar, 2011 [facility] [address] [id number] [place] [address] 17 Mar, 2011 [facility] [address] [id number] [place] [address] 16 Feb, 2011 [facility] [address] [id number] [place] [address] Nov, [facility] [address] [id number] [place] [address] 17 Aug, 2010 [facility] [facility] [id number] [place] [address] 11 Apr, 2010 [facility] [facility] [address] [id number] [place] [address] 16 Mar, 2010 [facility] [facility] [address] [id number] [place] [address] Apr, [facility] [address] [facility] [id number] [place] [address] Apr, [facility] [address] [facility] [id number] [place] [address] Sep, [facility] [address] [facility] [id number] [place] [address] Mar, IMMUNIZATIONS No Known Immunizations SOCIAL HISTORY [...] for Kidney pain/Stones 06/19/18 Hospitalization History [facility] [place] X4 days 9
--- OUTSIDE RECORDS SUMMARY | 2019-12-26 10:59 | XMS REPORT ---
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 [address] [facility] [id number] [place] [address] 20 Aug, 2011 [facility] [address] [facility] [id number] [place] [address] 19 Aug, 2011 [facility] [address] [facility] [id number] [place] [address] 16 Aug, 2011 [facility] [address] [facility] [id number] [place] [address] 15 Aug, 2011 [facility] [address] [facility] [id number] [place] [address] 15 Aug, 2011 [facility] [address] [facility] [id number] [place] [address] 14 Aug, 2011 [facility] [address] [facility] [id number] [place] [address] 12 Aug, 2011 [facility] [address] [facility] [id number] [place] [address] 08 Aug, 2011 [facility] [address] [facility] [id number] [place] [address] 15 Jul, 2011 [facility] [address] [facility] [id number] [place] [address] 15 Jul, 2011 [facility] [address] [facility] [id number] [place] [address] 14 Jul, 2011 [facility] [address] [facility] [id number] [place] [address] 06 Jul, 2011 [facility] [address] [facility] [id number] [place] [address] Jul, [facility] [address] [facility] [id number] [place] [address] Jun, [facility] [address] [facility] [id number] [place] [address] Jun, [facility] [id number] [place] [address] Jun, [facility] [address] [facility] [id number] [place] [address] May, [facility] [address] [facility] [id number] [place] [address] May, [facility] [address] [facility] [id number] [place] [address] May, [facility] [id number] [place] [address] May, [facility] [address] [facility] [id number] [place] [address] 14 May, 2011 [facility] [address] [facility] [id number] [place] [address] 16 Apr, 2011 [facility] [address] [facility] [id number] [place] [address] 16 Apr, 2011 [facility] [address] [facility] [id number] [place] [address] 15 Apr, 2011 [facility] [id number] [place] [address] 14 Apr, 2011 [facility] [id number] [place] [address] Mar, [facility] [id number] [place] [address] Mar, [facility] [id number] [place] [address] Mar, [facility] [id number] [place] [address] Mar, [facility] [id number] [place] [address] Mar, [facility] [id number] [place] [address] Mar, [facility] [id number] [place] [address] Feb, [facility] [id number] [place] [address] Nov, [facility] [id number] [place] [address] Aug, [facility] [id number] [place] [address] Apr, [facility] [id number] [place] [address] Mar, [facility] [id number] [place] [address] Apr, [facility] [id number] [place] [address] Apr, [facility] [id number] [place] [address] Sep, [facility] [id number] [place] [address] Mar, IMMUNIZATIONS No Known Immunizations SOCIAL HISTORY [...] for Kidney pain/Stones 06/19/18 Hospitalization History [facility] X4 days 9
--- OUTSIDE RECORDS SUMMARY | 2019-12-26 11:00 | XMS REPORT ---
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 [place] [facility] [address] [id number] [place] [address] Jan, [facility] [place] [facility] [address] [id number] [place] [address] Jan, [facility] [place] [facility] [address] [id number] [place] [address] Jan, [facility] [place] [facility] [address] [id number] [place] [address] Dec, [facility] [place] [facility] [address] [id number] [place] [address] Dec, [facility] [place] [facility] [address] [id number] [place] [address] Dec, [facility] [place] [facility] [address] [id number] [place] [address] Nov, [facility] [place] [facility] [address] [id number] [place] [address] October, [facility] [place] [facility] [address] [id number] [place] [address] October, [facility] [place] [facility] [address] [id number] [place] [address] October, [facility] [place] [facility] [address] [id number] [place] [address] October, [facility] [place] [facility] [address] [id number] [place] [address] October, [facility] [place] [facility] [address] [id number] [place] [address] Sep, [facility] [place] [facility] [address] [id number] [place] [address] Sep, [facility] [place] [facility] [address] [id number] [place] [address] Sep, [facility] [place] [facility] [address] [id number] [place] [address] Sep, [facility] [place] [facility] [address] [id number] [place] [address] 12 Sep, 2011 [facility] [place] [facility] [address] [facility] [id number] [facility] [place] [address] 11 Sep, 2011 [facility] [place] [facility] [address] [id number] [facility] [place] [address] 11 Sep, 2011 [facility] [place] [facility] [address] [id number] [facility] [place] [address] 28 Aug, 2011 [facility] [place] [facility] [address] [id number] [place] [address] 23 Aug, 2011 [facility] [place] [facility] [address] [facility] [id number] [place] [address] 21 Aug, 2011 [facility] [place] [facility] [address] [id number] [facility] [place] [address] 21 Aug, 2011 [facility] [place] [facility] [address] [id number] [facility] [place] [address] 20 Aug, 2011 [facility] [place] [facility] [address] [id number] [facility] [place] [address] 19 Aug, 2011 [facility] [place] [facility] [address] [id number] [facility] [place] [address] 16 Aug, 2011 [facility] [place] [facility] [address] [id number] [place] [address] 15 Aug, 2011 [facility] [place] [facility] [address] [id number] [place] [address] 15 Aug, 2011 [facility] [place] [facility] [address] [id number] [place] [address] 14 Aug, 2011 [facility] [place] [facility] [address] [id number] [facility] [place] [address] 12 Aug, 2011 [facility] [place] [facility] [address] [id number] [place] [address] 08 Aug, 2011 [facility] [place] [facility] [address] [id number] [place] [address] 15 Jul, 2011 [facility] [place] [facility] [address] [id number] [place] [address] 15 Jul, 2011 [facility] [place] [facility] [address] [id number] [place] [address] 14 Jul, 2011 [facility] [place] [facility] [address] [id number] [place] [address] Jul, [facility] [place] [facility] [address] [id number] [place] [address] Jul, [facility] [id number] [place] [address] Jun, [facility] [place] [facility] [address] [id number] [place] [address] Jun, [facility] [place] [facility] [address] [id number] [place] [address] Jun, [facility] [place] [facility] [address] [id number] [place] [address] May, [facility] [id number] [place] [address] May, [facility] [place] [facility] [id number] [place] [address] May, [facility] [place] [facility] [id number] [place] [address] May, [facility] [place] [facility] [id number] [place] [address] May, [facility] [place] [facility] [id number] [place] [address] 16 Apr, 2011 [facility] [place] [facility] [id number] [place] [address] 16 Apr, 2011 [facility] [place] [facility] [address] [id number] [place] [address] 15 Apr, 2011 [facility] [place] [facility] [id number] [place] [address] 14 Apr, 2011 [facility] [place] [facility] [address] [id number] [place] [address] 25 Mar, 2011 [facility] [place] [facility] [id number] [place] [address] Mar, [facility] [address] [id number] [place] [address] Mar, [facility] [id number] [place] [address] Mar, [facility] [address] [id number] [place] [address] Mar, [facility] [id number] [place] [address] Mar, [facility] [id number] [place] [address] Feb, [facility] [id number] [place] [address] Nov, [facility] [id number] [place] [address] Aug, [facility] [id number] [place] [address] Apr, [facility] [id number] [place] [address] Mar, [facility] [id number] [place] [address] Apr, [facility] [id number] [place] [address] Apr, [facility] [id number] [place] [address] Sep, [facility] [id number] [place] [address] Mar, IMMUNIZATIONS No Known Immunizations SOCIAL HISTORY Never Assessed REASON FOR VISIT PLAN OF CARE VITAL SIGNS Height 63 in 2013-09-13 Weight 212.6 lbs 2013-09-13 Temperature 99.4 degrees Fahrenheit 2013-09-13 Heart Rate 92 bpm 2013-09-13 Respiratory Rate 20 2013-09-13 Blood pressure systolic 118 mmHg 2013-09-13 Blood pressure diastolic 84 mmHg 2013-09-13 MEDICATIONS No Known Medications RESULTS No Results PROCEDURES Procedure Date Ordered Result Body Site X-RAY EXAM OF ABDOMEN September 13, 2013 INSTRUCTIONS MEDICATIONS ADMINISTERED No Known Medications [...]
--- OUTSIDE RECORDS SUMMARY | 2019-12-26 11:00 | XMS REPORT ---
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 [facility] [address] [id number] [place] [address] October, [facility] [place] [facility] [address] [id number] [place] [address] October, [facility] [place] [facility] [address] [id number] [place] [address] Sep, [facility] [place] [facility] [address] [id number] [place] [address] Sep, [facility] [place] [facility] [address] [id number] [place] [address] Sep, [facility] [place] [facility] [address] [id number] [place] [address] Sep, [facility] [place] [facility] [address] [id number] [place] [address] 12 Sep, 2011 [facility] [place] [facility] [address] [facility] [id number] [facility] [place] [address] 11 Sep, 2011 [facility] [place] [facility] [address] [id number] [facility] [place] [address] 11 Sep, 2011 [facility] [place] [facility] [address] [id number] [facility] [place] [address] 28 Aug, 2011 [facility] [place] [facility] [address] [id number] [place] [address] 23 Aug, 2011 [facility] [place] [facility] [address] [facility] [id number] [place] [address] 21 Aug, 2011 [facility] [place] [facility] [address] [id number] [facility] [place] [address] 21 Aug, 2011 [facility] [place] [facility] [address] [id number] [facility] [place] [address] 20 Aug, 2011 [facility] [place] [facility] [address] [id number] [facility] [place] [address] 19 Aug, 2011 [facility] [place] [facility] [address] [id number] [facility] [place] [address] 16 Aug, 2011 [facility] [place] [facility] [address] [id number] [place] [address] 15 Aug, 2011 [facility] [place] [facility] [address] [id number] [place] [address] 15 Aug, 2011 [facility] [place] [facility] [address] [id number] [place] [address] 14 Aug, 2011 [facility] [place] [facility] [address] [id number] [facility] [place] [address] 12 Aug, 2011 [facility] [place] [facility] [address] [id number] [place] [address] 08 Aug, 2011 [facility] [place] [facility] [address] [id number] [place] [address] 15 Jul, 2011 [facility] [place] [facility] [address] [id number] [place] [address] 15 Jul, 2011 [facility] [place] [facility] [address] [id number] [place] [address] 14 Jul, 2011 [facility] [place] [facility] [address] [id number] [place] [address] Jul, [facility] [place] [facility] [address] [id number] [place] [address] Jul, [facility] [id number] [place] [address] Jun, [facility] [place] [facility] [address] [id number] [place] [address] Jun, [facility] [place] [facility] [address] [id number] [place] [address] Jun, [facility] [place] [facility] [address] [id number] [place] [address] May, [facility] [id number] [place] [address] May, [facility] [place] [facility] [id number] [place] [address] May, [facility] [place] [facility] [id number] [place] [address] May, [facility] [place] [facility] [id number] [place] [address] May, [facility] [place] [facility] [id number] 16 Apr, 2011 [facility] [place] [facility] [id number] 16 Apr, 2011 [facility] [place] [facility] [address] [id number] [place] [address] 15 Apr, 2011 [facility] [place] [facility] [id number] [place] [address] 14 Apr, 2011 [facility] [place] [facility] [address] [id number] [address] 25 Mar, 2011 [facility] [place] [facility] [id number] [place] [address] Mar, [facility] [address] [id number] [address] Mar, [facility] [id number] Mar, [facility] [address] [id number] [address] Mar, [facility] [id number] Mar, [facility] [id number] Feb, [facility] [id number] Nov, [facility] [id number] Aug, [facility] [id number] Apr, [facility] [id number] 16 Mar, 2010 [facility] [id number] Apr, [facility] [id number] Apr, [facility] [id number] [address] Sep, [facility] [id number] Mar, IMMUNIZATIONS No Known Immunizations SOCIAL HISTORY [...] ER for Kidney pain/Stones 06/19/18 Hospitalization History [facility] X4 days 9
--- OUTSIDE RECORDS SUMMARY | 2019-12-26 11:00 | XMS REPORT ---
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 [address] 16 Aug, 2011 [facility] [place] [facility] [id number] [place] [address] 15 Aug, 2011 [facility] [place] [facility] [id number] [place] [address] 15 Aug, 2011 [facility] [place] [facility] [id number] [place] [address] 14 Aug, 2011 [facility] [place] [facility] [id number] [facility] [address] 12 Aug, 2011 [facility] [place] [facility] [id number] [place] [address] 08 Aug, 2011 [facility] [place] [facility] [id number] [place] [address] 15 Jul, 2011 [facility] [place] [facility] [id number] [place] [address] 15 Jul, 2011 [facility] [place] [facility] [id number] [place] [address] 14 Jul, 2011 [facility] [place] [facility] [id number] [place] [address] Jul, [facility] [place] [facility] [id number] [place] [address] Jul, [facility] [id number] [place] [address] Jun, [facility] [place] [facility] [id number] [place] [address] Jun, [facility] [place] [facility] [id number] [place] [address] Jun, [facility] [place] [facility] [id number] [place] [address] May, [facility] [id number] [place] [address] May, [facility] [place] [facility] [id number] [place] [address] May, [facility] [place] [facility] [id number] [place] [address] May, [facility] [place] [facility] [id number] [place] [address] May, [facility] [place] [facility] [id number] [place] [address] 16 Apr, 2011 [facility] [place] [facility] [id number] [place] [address] 16 Apr, 2011 [facility] [place] [facility] [id number] [place] [address] 15 Apr, 2011 [facility] [place] [facility] [id number] [place] [address] 14 Apr, 2011 [facility] [place] [facility] [id number] [place] [address] 25 Mar, 2011 [facility] [place] [facility] [id number] [place] [address] Mar, [facility] [id number] [place] [address] Mar, [facility] [id number] [place] [address] Mar, [facility] [id number] [place] [address] Mar, [facility] [id number] [place] [address] Mar, [facility] [id number] [place] [address] Feb, [facility] [id number] [place] [address] Nov, [facility] [id number] [place] [address] Aug, [facility] [id number] [place] [address] Apr, [facility] [id number] [place] [address] 16 Mar, 2010 [facility] [id number] [place] [address] Apr, [facility] [id number] [place] [address] Apr, [facility] [id number] [place] [address] Sep, [facility] [id number] [place] [address] Mar, IMMUNIZATIONS No Known Immunizations SOCIAL HISTORY [...] ER for Kidney pain/Stones 06/19/18 Hospitalization History [facility] X4 days 9
--- OUTSIDE RECORDS SUMMARY | 2019-12-26 11:01 | XMS REPORT ---
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 [facility] [place] [facility] [address] [facility] [id number] [place] [address] Sep, [facility] [place] [facility] [address] [id number] [place] [address] Sep, [facility] [place] [facility] [address] [id number] [place] [address] Aug, [facility] [place] [facility] [address] [id number] [place] [address] Aug, [facility] [place] [facility] [address] [id number] [place] [address] Aug, [facility] [place] [facility] [address] [facility] [id number] [place] [address] 21 Aug, 2011 [facility] [place] [facility] [address] [facility] [id number] [facility] [place] [address] 20 Aug, 2011 [facility] [place] [facility] [address] [id number] [facility] [place] [address] 19 Aug, 2011 [facility] [place] [facility] [address] [id number] [facility] [place] [address] 16 Aug, 2011 [facility] [place] [facility] [address] [id number] [facility] [place] [address] 15 Aug, 2011 [facility] [place] [facility] [address] [facility] [id number] [facility] [place] [address] 15 Aug, 2011 [facility] [place] [facility] [address] [id number] [place] [address] 14 Aug, 2011 [facility] [place] [facility] [address] [id number] [facility] [place] [address] 12 Aug, 2011 [facility] [place] [facility] [address] [id number] [facility] [place] [address] 08 Aug, 2011 [facility] [place] [facility] [address] [id number] [facility] [place] [address] 15 Jul, 2011 [facility] [place] [facility] [address] [id number] [facility] [place] [address] 15 Jul, 2011 [facility] [place] [facility] [address] [id number] [place] [address] 14 Jul, 2011 [facility] [place] [facility] [address] [id number] [facility] [place] [address] 06 Jul, 2011 [facility] [place] [facility] [address] [id number] [facility] [place] [address] 02 Jul, 2011 [facility] [place] [facility] [address] [id number] [place] [address] Jun, [facility] [place] [facility] [address] [id number] [facility] [place] [address] 04 Jun, 2011 [facility] [place] [facility] [address] [id number] [place] [address] Jun, [facility] [place] [facility] [address] [id number] [place] [address] 29 May, 2011 [facility] [place] [facility] [address] [id number] [place] [address] May, [facility] [place] [facility] [address] [id number] [place] [address] 19 May, 2011 [facility] [place] [facility] [address] [id number] [place] [address] 19 May, 2011 [facility] [place] [facility] [address] [id number] [place] [address] 14 May, 2011 [facility] [place] [facility] [address] [id number] [place] [address] 16 Apr, 2011 [facility] [place] [facility] [address] [id number] [place] [address] 16 Apr, 2011 [facility] [place] [facility] [id number] [place] [address] 15 Apr, 2011 [facility] [place] [facility] [address] [id number] [place] [address] 14 Apr, 2011 [facility] [place] [facility] [address] [id number] [place] [address] 25 Mar, 2011 [facility] [place] [facility] [address] [id number] [place] [address] 24 Mar, 2011 [facility] [place] [facility] [address] [id number] [place] [address] 19 Mar, 2011 [facility] [place] [facility] [address] [id number] [place] [address] 19 Mar, 2011 [facility] [place] [facility] [address] [id number] [place] [address] 17 Mar, 2011 [facility] [place] [facility] [id number] [place] [address] 17 Mar, 2011 [facility] [place] [facility] [address] [id number] [place] [address] 16 Feb, 2011 [facility] [place] [facility] [address] [id number] [place] [address] Nov, [facility] [address] [facility] [id number] [place] [address] 17 Aug, 2010 [facility] [address] [id number] [place] [address] 11 Apr, 2010 [facility] [address] [id number] [place] [address] 16 Mar, 2010 [facility] [address] [id number] [place] [address] Apr, [facility] [address] [id number] [place] [address] Apr, [facility] [address] [id number] [place] [address] Sep, [facility] [address] [id number] [place] [address] Mar, IMMUNIZATIONS No Known Immunizations SOCIAL HISTORY Never Assessed REASON FOR VISIT PLAN OF CARE VITAL SIGNS Height 63 in 2013-11-15 Weight 210 lbs 2013-11-15 Temperature 99 degrees Fahrenheit 2013-11-15 Heart Rate 84 bpm 2013-11-15 Respiratory Rate 20 2013-11-15 Blood pressure systolic 124 mmHg 2013-11-15 Blood pressure diastolic 92 mmHg 2013-11-15 MEDICATIONS Unknown Medications RESULTS No Results PROCEDURES [...] pain/Stones 06/19/18 Hospitalization History [facility] X4 days 9
--- OUTSIDE RECORDS SUMMARY | 2019-12-26 11:01 | XMS REPORT ---
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 May, [facility] [address] [id number] [place] [address] May, [facility] [id number] [place] [address] 16 Apr, 2011 [facility] [address] [id number] [place] [address] 16 Apr, 2011 [facility] [address] [id number] [place] [address] 15 Apr, 2011 [facility] [address] [id number] [place] [address] 14 Apr, 2011 [facility] [address] [id number] [place] [address] Mar, [facility] [address] [id number] [place] [address] 24 Mar, 2011 [facility] [address] [id number] [place] [address] Mar, [facility] [address] [id number] [place] [address] 19 Mar, 2011 [facility] [address] [id number] [place] [address] 17 Mar, 2011 [facility] [address] [id number] [place] [address] 17 Mar, 2011 [facility] [address] [id number] [place] [address] 16 Feb, 2011 [facility] [id number] [place] [address] Nov, [facility] [address] [id number] [place] [address] Aug, [facility] [id number] [place] [address] Apr, [facility] [id number] [place] [address] Mar, [facility] [id number] [place] [address] Apr, [facility] [address] [id number] [place] [address] Apr, [facility] [id number] [place] [address] Sep, [facility] [address] [id number] [place] [address] Mar, IMMUNIZATIONS No Known Immunizations SOCIAL HISTORY Never Assessed REASON FOR VISIT PLAN OF CARE VITAL SIGNS Height 63 in 2013-09-06 Weight 211.31 lbs 2013-09-06 Temperature 98.4 degrees Fahrenheit 2013-09-06 Heart Rate 76 bpm 2013-09-06 Respiratory Rate 18 2013-09-06 Blood pressure systolic 124 mmHg 2013-09-06 Blood pressure diastolic 72 mmHg 2013-09-06 MEDICATIONS Unknown Medications RESULTS No Results PROCEDURES [...] ER for Kidney pain/Stones 06/19/18 Hospitalization History [facility] X4 days 9
--- OUTSIDE RECORDS SUMMARY | 2019-12-26 11:02 | XMS REPORT ---
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 [place] [facility] [address] [id number] [place] [address] Sep, [facility] [place] [facility] [address] [id number] [place] [address] Aug, [facility] [place] [facility] [address] [id number] [place] [address] Aug, [facility] [place] [facility] [address] [id number] [place] [address] Aug, [facility] [place] [facility] [address] [id number] [place] [address] 21 Aug, 2011 [facility] [place] [facility] [address] [facility] [id number] [facility] [place] [address] 20 Aug, 2011 [facility] [place] [facility] [address] [id number] [facility] [place] [address] 19 Aug, 2011 [facility] [place] [facility] [address] [id number] [facility] [place] [address] 16 Aug, 2011 [facility] [place] [facility] [address] [id number] [facility] [place] [address] 15 Aug, 2011 [facility] [place] [facility] [address] [facility] [id number] [facility] [place] [address] 15 Aug, 2011 [facility] [place] [facility] [address] [id number] [place] [address] 14 Aug, 2011 [facility] [place] [facility] [address] [id number] [facility] [place] [place] [address] 12 Aug, 2011 [facility] [place] [facility] [address] [id number] [facility] [place] [place] [address] 08 Aug, 2011 [facility] [place] [facility] [address] [id number] [facility] [place] [place] [address] 15 Jul, 2011 [facility] [place] [facility] [address] [id number] [facility] [place] [place] [address] 15 Jul, 2011 [facility] [place] [facility] [address] [id number] [place] [address] 14 Jul, 2011 [facility] [place] [facility] [address] [id number] [facility] [place] [place] [address] 06 Jul, 2011 [facility] [place] [facility] [address] [id number] [facility] [place] [place] [address] 02 Jul, 2011 [facility] [place] [facility] [address] [id number] [place] [address] Jun, [facility] [place] [facility] [address] [id number] [facility] [place] [place] [address] 04 Jun, 2011 [facility] [place] [facility] [address] [id number] [place] [address] Jun, [facility] [place] [facility] [address] [id number] [place] [address] 29 May, 2011 [facility] [place] [facility] [address] [id number] [place] [address] May, [facility] [place] [facility] [address] [id number] [place] [address] 19 May, 2011 [facility] [place] [facility] [address] [id number] [place] [address] 19 May, 2011 [facility] [place] [facility] [address] [id number] [place] [address] 14 May, 2011 [facility] [place] [facility] [address] [id number] [place] [address] 16 Apr, 2011 [facility] [place] [facility] [address] [id number] [place] [address] 16 Apr, 2011 [facility] [place] [facility] [id number] [place] [address] 15 Apr, 2011 [facility] [place] [facility] [address] [id number] [place] [address] 14 Apr, 2011 [facility] [place] [facility] [address] [id number] [place] [address] 25 Mar, 2011 [facility] [place] [facility] [address] [id number] [place] [address] 24 Mar, 2011 [facility] [place] [facility] [address] [id number] [place] [address] 19 Mar, 2011 [facility] [place] [facility] [address] [id number] [place] [address] 19 Mar, 2011 [facility] [place] [facility] [address] [id number] [place] [address] 17 Mar, 2011 [facility] [place] [facility] [id number] [place] [address] 17 Mar, 2011 [facility] [place] [facility] [address] [id number] [place] [address] 16 Feb, 2011 [facility] [place] [facility] [address] [id number] [place] [address] 10 Nov, 2010 [facility] [address] [id number] [place] [address] 17 Aug, 2010 [facility] [address] [id number] [place] [address] 11 Apr, 2010 [facility] [address] [id number] [place] [address] 16 Mar, 2010 [facility] [address] [id number] [place] [address] Apr, [facility] [address] [id number] [place] [address] Apr, [facility] [address] [id number] [place] [address] Sep, [facility] [address] [id number] [place] [address] 17 Mar, 2008 IMMUNIZATIONS No Known Immunizations [...] ER for Kidney pain/Stones 06/19/18 Hospitalization History [facility] X4 days 9
--- OUTSIDE RECORDS SUMMARY | 2019-12-26 11:02 | XMS REPORT ---
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 [place] [address] Aug, [facility] [address] [id number] [address] [place] [address], [place] [address] Aug, [facility] [address] [id number] [address] [place] [address], [place] [address] Aug, [facility] [address] [id number] [address] [place] [address], [place] [address] Aug, [facility] [address] [id number] [address] [place] [address], [place] [address] Aug, [facility] [address] [id number] [address] [place] [address], [place] [address] Jul, [facility] [address] [id number] [address] [place] [address], [place] [address] Jul, [facility] [address] [id number] [address] [place] [address], [place] [address] Jul, [facility] [address] [id number] [address] [place] [address], [place] [address] Jul, [facility] [address] [id number] [address] [place] [address], [place] [address] Jul, [facility] [address] [id number] [address] [place] [address], [place] [address] 23 Jul, 2012 [facility] [address] [id number] [address] [place] [address], [place] [address] 20 Jul, 2012 [facility] [address] [id number] [address] [place] [address], [place] [address] 15 Jul, 2012 [facility] [address] [id number] [address] [place] [address], [place] [address] 14 Jul, 2012 [facility] [address] [id number] [address] [place] [address], [place] [address] 11 Jul, 2012 [facility] [address] [id number] [address] [place] [address], [place] [address] Jun, [facility] [address] [id number] [address] [place] [address], [place] [address] Jun, [facility] [address] [id number] [address] [place] [address], [place] [address] Jun, [facility] [address] [id number] [address] [place] [address], [place] [address] May, [facility] [address] [id number] [address] [place] [address], [place] [address] May, [facility] [address] [id number] [address] [place] [address], [place] [address] Apr, [facility] [address] [id number] [address] [place] [address], [place] [address] Apr, [facility] [address] [id number] [address] [place] [address], [place] [address] Apr, [facility] [address] [id number] [address] [place] [address], [place] [address] Apr, [facility] [address] [id number] [address] [place] [address], [place] [address] Apr, [facility] [address] [id number] [address] [place] [address], [place] [address] Apr, [facility] [address] [id number] [address] [place] [address], [place] [address] Apr, [facility] [address] [id number] [address] [place] [address], [place] [address] Apr, [facility] [address] [id number] [address] [place] [address], [place] [address] Mar, [facility] [address] [id number] [address] [place] [address], [place] [address] Mar, [facility] [address] [id number] [address] [place] [address], [place] [address] Mar, [facility] [address] [id number] [address] [place] [address], [place] [address] Mar, [facility] [address] [id number] [address] [place] [address], [place] [address] Mar, [facility] [address] [id number] [address] [place] [address], [place] [address] Mar, [facility] [address] [id number] [address] [place] [address], [place] [address] Mar, [facility] [address] [id number] [address] [place] [address], [place] [address] Mar, [facility] [address] [id number] [address] [place] [address], [place] [address] Mar, [facility] [address] [id number] [address] [place] [address] Feb, [facility] [address] [id number] [address] [place] [address], [place] [address] Jan, [facility] [address] [id number] [address] [place] [address], [place] [address] Jan, [facility] [address] [id number] [address] [place] [address], [place] [address] Jan, [facility] [address] [id number] [address] [place] [address], [place] [address] 30 Dec, 2011 [facility] [address] [id number] [address] [place] [address], [place] [address] Dec, [facility] [address] [id number] [address] [place] [address], [place] [address] Dec, [facility] [address] [id number] [address] [place] [address], [place] [address] Nov, [facility] [address] [id number] [address] [place] [address], [place] [address] October, [facility] [address] [id number] [address] [place] [address], [place] [address] October, [facility] [address] [id number] [address] [place] [address], [place] [address] October, [facility] [address] [id number] [address] [place] [address], [place] [address] October, [facility] [address] [id number] [address] [place] [address], [place] [address] October, [facility] [address] [id number] [address] [place] [address], [place] [address] Sep, [facility] [address] [id number] [address] [place] [address], [place] [address] Sep, [facility] [address] [id number] [address] [place] [address], [place] [address] Sep, [facility] [address] [id number] [address] [place] [address], [place] [address] Sep, [facility] [address] [id number] [address] [place] [address], [place] [address] Sep, [facility] [address] [id number] [address] [place] [address], [place] [address] Sep, [facility] [address] [id number] [address] [place] [address], [place] [address] Sep, [facility] [address] [id number] [address] [place] [address], [place] [address] 28 Aug, 2011 [facility] [address] [id number] [address] [place] [address], [place] [address] 23 Aug, 2011 [facility] [address] [id number] [address] [place] [address], [place] [address] 21 Aug, 2011 [facility] [address] [id number] [address] [place] [address], [place] [address] 21 Aug, 2011 [facility] [address] [id number] [address] [place] [address], [place] [address] 20 Aug, 2011 [facility] [address] [id number] [address] [place] [address], [place] [address] 19 Aug, 2011 [facility] [address] [id number] [address] [place] [address], [place] [address] 16 Aug, 2011 [facility] [address] [id number] [address] [place] [address], [place] [address] 15 Aug, 2011 [facility] [address] [id number] [address] [place] [address], [place] [address] 15 Aug, 2011 [facility] [address] [id number] [address] [place] [address], [place] [address] 14 Aug, 2011 [facility] [address] [id number] [address] [place] [address], [place] [address] 12 Aug, 2011 [facility] [address] [id number] [address] [place] [address], [place] [address] 08 Aug, 2011 [facility] [address] [id number] [address] [place] [address], [place] [address] 15 Jul, 2011 [facility] [address] [id number] [address] [place] [address], [place] [address] 15 Jul, 2011 [facility] [address] [id number] [address] [place] [address], [place] [address] 14 Jul, 2011 [facility] [address] [id number] [address] [place] [address], [place] [address] 06 Jul, 2011 [facility] [address] [id number] [address] [place] [address], [place] [address] Jul, [facility] [address] [id number] [address] [place] [address], [place] [address] Jun, [facility] [address] [id number] [address] [place] [address], [place] [address] Jun, [facility] [address] [id number] [address] [place] [address], [place] [address] Jun, [facility] [address] [id number] [address] [place] [address], [place] [address] May, [facility] [address] [id number] [address] [place] [address], [place] [address] May, [facility] [address] [id number] [address] [place] [address], [place] [address] May, [facility] [address] [id number] [address] [place] [address], [place] [address] May, [facility] [address] [id number] [address] [place] [address], [place] [address] 14 May, 2011 [facility] [address] [id number] [address] [place] [address], [place] [address] 16 Apr, 2011 [facility] [address] [id number] [address] [place] [address], [place] [address] 16 Apr, 2011 [facility] [address] [id number] [address] [place] [id number] 15 Apr, 2011 [facility] [address] [id number] [address] [place] [address], [place] [address] 14 Apr, 2011 [facility] [address] [id number] [address] [place] [address], [place] [address] 25 Mar, 2011 [facility] [address] [id number] [address] [place] [id number] 24 Mar, 2011 [facility] [address] [id number] [address] [place] [id number] 19 Mar, 2011 [facility] [address] [id number] [address] [place] [phone] Mar, [facility] [address] [id number] [address] [place] [id number] 17 Mar, 2011 [facility] [address] [id number] [address] [place] [phone] 17 Mar, 2011 [facility] [address] [id number] [address] [place] [phone] 16 Feb, 2011 [facility] [address] [id number] [address] [place] [id number] Nov, [facility] [address] [id number] [address] [place] [phone] Aug, [facility] [address] [id number] [address] [place] [phone] Apr, [facility] [address] [id number] [address] [place] [id number] Mar, [facility] [address] [id number] [address] [place] [phone] Apr, [facility] [address] [id number] [address] [place] [id number] Apr, [facility] [address] [id number] [address] [place] [phone] Sep, [facility] [address] [id number] [address] [place] [phone] Mar, IMMUNIZATIONS No Known Immunizations SOCIAL HISTORY [...] ER for Kidney pain/Stones 06/19/18 Hospitalization History [facility] X4 days 9
--- OUTSIDE RECORDS SUMMARY | 2019-12-26 11:02 | XMS REPORT ---
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 [facility] [address] [id number] [address] [place] [address], [place] [address] Aug, [facility] [address] [id number] [address] [place] [address], [place] [address] Aug, [facility] [address] [id number] [address] [place] [address], [place] [address] Jul, [facility] [address] [id number] [address] [place] [address], [place] [address] Jul, [facility] [address] [id number] [address] [place] [address], [place] [address] Jul, [facility] [address] [id number] [address] [place] [address], [place] [address] Jul, [facility] [address] [id number] [address] [place] [address], [place] [address] Jul, [facility] [address] [id number] [address] [place] [address], [place] [address] Jul, [facility] [address] [id number] [address] [place] [address], [place] [address] Jul, [facility] [address] [id number] [address] [place] [address], [place] [address] 15 Jul, 2012 [facility] [address] [id number] [address] [place] [address], [place] [address] 14 Jul, 2012 [facility] [address] [id number] [address] [place] [address], [place] [address] Jul, [facility] [address] [id number] [address] [place] [address], [place] [address] Jun, [facility] [address] [id number] [address] [place] [address], [place] [address] Jun, [facility] [address] [id number] [address] [place] [address], [place] [address] Jun, [facility] [address] [id number] [address] [place] [address], [place] [address] May, [facility] [address] [id number] [address] [place] [address], [place] [address] May, [facility] [address] [id number] [address] [place] [address], [place] [address] Apr, [facility] [address] [id number] [address] [place] [address], [place] [address] Apr, [facility] [address] [id number] [address] [place] [address], [place] [address] Apr, [facility] [address] [id number] [address] [place] [address], [place] [address] Apr, [facility] [address] [id number] [address] [place] [address], [place] [address] Apr, [facility] [address] [id number] [address] [place] [address], [place] [address] Apr, [facility] [address] [id number] [address] [place] [address] Apr, [facility] [address] [id number] [address] [place] [address], [place] [address] Apr, [facility] [address] [id number] [address] [place] [address] Mar, [facility] [address] [id number] [address] [place] [address], [place] [address] Mar, [facility] [address] [id number] [address] [place] [address] Mar, [facility] [address] [id number] [address] [place] [address] Mar, [facility] [address] [id number] [address] [place] [address] Mar, [facility] [address] [id number] [address] [place] [address] Mar, [facility] [address] [id number] [address] [place] [address] Mar, [facility] [address] [id number] [address] [place] [address], [place] [address] Mar, [facility] [address] [id number] [address] [place] [address] Mar, [facility] [address] [id number] [address] [place] [address] Feb, [facility] [address] [id number] [address] [place] [address], [place] [address] Jan, [facility] [address] [id number] [address] [place] [address], [place] [address] Jan, [facility] [address] [id number] [address] [place] [address], [place] [address] Jan, [facility] [address] [id number] [address] [place] [address], [place] [address] Dec, [facility] [address] [id number] [address] [place] [address], [place] [address] Dec, [facility] [address] [id number] [address] [place] [address], [place] [address] Dec, [facility] [address] [id number] [address] [place] [address], [place] [address] Nov, [facility] [address] [id number] [address] [place] [address], [place] [address] October, [facility] [address] [id number] [address] [place] [address], [place] [address] October, [facility] [address] [id number] [address] [place] [address], [place] [address] October, [facility] [address] [id number] [address] [place] [address], [place] [address] October, [facility] [address] [id number] [address] [place] [address], [place] [address] October, [facility] [address] [id number] [address] [place] [address], [place] [address] Sep, [facility] [address] [id number] [address] [place] [address], [place] [address] Sep, [facility] [address] [id number] [address] [place] [address], [place] [address] Sep, [facility] [address] [id number] [address] [place] [address], [place] [address] Sep, [facility] [address] [id number] [address] [place] [address], [place] [address] 12 Sep, 2011 [facility] [address] [id number] [address] [place] [address], [place] [address] 11 Sep, 2011 [facility] [address] [id number] [address] [place] [address], [place] [address] 11 Sep, 2011 [facility] [address] [id number] [address] [place] [address], [place] [address] 28 Aug, 2011 [facility] [address] [id number] [address] [place] [address], [place] [address] 23 Aug, 2011 [facility] [address] [id number] [address] [place] [address], [place] [address] 21 Aug, 2011 [facility] [address] [id number] [address] [place] [address], [place] [address] 21 Aug, 2011 [facility] [address] [id number] [address] [place] [address], [place] [address] 20 Aug, 2011 [facility] [address] [id number] [address] [place] [address], [place] [address] 19 Aug, 2011 [facility] [address] [id number] [address] [place] [address], [place] [address] 16 Aug, 2011 [facility] [address] [id number] [address] [place] [address], [place] [address] 15 Aug, 2011 [facility] [address] [id number] [address] [place] [address], [place] [address] 15 Aug, 2011 [facility] [address] [id number] [address] [place] [address], [place] [address] 14 Aug, 2011 [facility] [address] [id number] [address] [place] [address], [place] [address] 12 Aug, 2011 [facility] [address] [id number] [address] [place] [address], [place] [address] 08 Aug, 2011 [facility] [address] [id number] [address] [place] [address], [place] [address] 15 Jul, 2011 [facility] [address] [id number] [address] [place] [address], [place] [address] 15 Jul, 2011 [facility] [address] [id number] [address] [place] [address], [place] [address] 14 Jul, 2011 [facility] [address] [id number] [address] [place] [address], [place] [address] 06 Jul, 2011 [facility] [address] [id number] [address] [place] [address], [place] [address] 02 Jul, 2011 [facility] [address] [id number] [address] [place] [address], [place] [address] Jun, [facility] [address] [id number] [address] [place] [address], [place] [address] Jun, [facility] [address] [id number] [address] [place] [address], [place] [address] Jun, [facility] [address] [id number] [address] [place] [address], [place] [address] 29 May, 2011 [facility] [address] [id number] [address] [place] [address], [place] [address] May, [facility] [address] [id number] [address] [place] [address], [place] [address] May, [facility] [address] [id number] [address] [place] [address], [place] [address] 19 May, 2011 [facility] [address] [id number] [address] [place] [address], [place] [address] 14 May, 2011 [facility] [address] [id number] [address] [place] [address], [place] [address] 16 Apr, 2011 [facility] [address] [id number] [address] [place] [address], [place] [address] 16 Apr, 2011 [facility] [address] [id number] [address] [place] [address], [place] [address] 15 Apr, 2011 [facility] [address] [id number] [address] [place] [address], [place] [address] 14 Apr, 2011 [facility] [address] [id number] [address] [place] [address], [place] [address] 25 Mar, 2011 [facility] [address] [id number] [address] [place] [address], [place] [address] 24 Mar, 2011 [facility] [address] [id number] [address] [place] [address], [place] [address] Mar, [facility] [address] [id number] [address] [place] [address], [place] [address] 19 Mar, 2011 [facility] [address] [id number] [address] [place] [address], [place] [address] 17 Mar, 2011 [facility] [address] [id number] [address] [place] [address], [place] [address] 17 Mar, 2011 [facility] [address] [id number] [address] [place] [address], [place] [address] 16 Feb, 2011 [facility] [address] [id number] [address] [place] [address], [place] [address] Nov, [facility] [address] [id number] [address] [place] [address], [place] [address] Aug, [facility] [address] [id number] [address] [place] [address], [place] [address] Apr, [facility] [address] [id number] [address] [place] [address], [place] [address] 16 Mar, 2010 [facility] [address] [id number] [address] [place] [address], [place] [address] Apr, [facility] [address] [id number] [address] [place] [address], [place] [address] Apr, [facility] [address] [id number] [address] [place] [address], [place] [address] 15 Sep, 2008 [facility] [address] [id number] [address] [place] [address], [place] [address] Mar, IMMUNIZATIONS No Known Immunizations SOCIAL HISTORY [...] ER for Kidney pain/Stones 06/19/18 Hospitalization History [facility] X4 days 9
--- OUTSIDE RECORDS SUMMARY | 2019-12-26 11:03 | XMS REPORT ---
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 [facility] [address] [id number] [address] [place] [address], [place] [address] October, [facility] [address] [id number] [address] [place] [address], [place] [address] Sep, [facility] [address] [id number] [address] [place] [address], [place] [address] Aug, [facility] [address] [id number] [address] [place] [address], [place] [address] Aug, [facility] [address] [id number] [address] [place] [address], [place] [address] Aug, [facility] [address] [id number] [address] [place] [address], [place] [address] Aug, [facility] [address] [id number] [address] [place] [address], [place] [address] Aug, [facility] [address] [id number] [address] [place] [address], [place] [address] Jul, [facility] [address] [id number] [address] [place] [address], [place] [address] Jul, [facility] [address] [id number] [address] [place] [address], [place] [address] Jul, [facility] [address] [id number] [address] [place] [address], [place] [address] Jul, [facility] [address] [id number] [address] [place] [address], [place] [address] Jul, [facility] [address] [id number] [address] [place] [address], [place] [address] 23 Jul, 2012 [facility] [address] [id number] [address] [place] [address], [place] [address] 20 Jul, 2012 [facility] [address] [id number] [address] [place] [address], [place] [address] 15 Jul, [address] [facility] [address] [id number] [address] [place] [address], [place] [address] 14 Jul, 2012 [facility] [address] [id number] [address] [place] [address], [place] [address] Jul, [facility] [address] [id number] [address] [place] [address], [place] [address] Jun, [facility] [address] [id number] [address] [place] [address], [place] [address] Jun, [facility] [address] [id number] [address] [place] [address], [place] [address] Jun, [facility] [address] [id number] [address] [place] [address], [place] [address] May, [facility] [address] [id number] [address] [place] [address], [place] [address] May, [facility] [address] [id number] [address] [place] [address], [place] [address] Apr, [facility] [address] [id number] [address] [place] [address], [place] [address] Apr, [facility] [address] [id number] [address] [place] [address], [place] [address] Apr, [facility] [address] [id number] [address] [place] [address], [place] [address] Apr, [facility] [address] [id number] [address] [place] [address], [place] [address] Apr, [facility] [address] [id number] [address] [place] [address], [place] [address] Apr, [facility] [address] [id number] [address] [place] [address], [place] [address] Apr, [facility] [address] [id number] [address] [place] [address], [place] [address] Apr, [facility] [address] [id number] [address] [place] [address], [place] [address] Mar, [facility] [address] [id number] [address] [place] [address], [place] [address] Mar, [facility] [address] [id number] [address] [place] [address], [place] [address] Mar, [facility] [address] [id number] [address] [place] [address], [place] [address] Mar, [facility] [address] [id number] [address] [place] [address], [place] [address] Mar, [facility] [address] [id number] [address] [place] [address], [place] [address] Mar, [facility] [address] [id number] [address] [place] [address], [place] [address] Mar, [facility] [address] [id number] [address] [place] [address], [place] [address] Mar, [facility] [address] [id number] [address] [place] [address], [place] [address] Mar, [facility] [address] [id number] [address] [place] [address], [place] [address] Feb, [facility] [address] [id number] [address] [place] [address], [place] [address] Jan, [facility] [address] [id number] [address] [place] [address], [place] [address] Jan, [facility] [address] [id number] [address] [place] [address], [place] [address] Jan, [facility] [address] [id number] [address] [place] [address], [place] [address] Dec, [facility] [address] [id number] [address] [place] [address], [place] [address] Dec, [facility] [address] [id number] [address] [place] [address], [place] [address] Dec, [facility] [address] [id number] [address] [place] [address], [place] [address] Nov, [facility] [address] [id number] [address] [place] [address], [place] [address] October, [facility] [address] [id number] [address] [place] [address], [place] [address] October, [facility] [address] [id number] [address] [place] [address], [place] [address] October, [facility] [address] [id number] [address] [place] [address], [place] [address] October, [facility] [address] [id number] [address] [place] [address], [place] [address] October, [facility] [address] [id number] [address] [place] [address], [place] [address] Sep, [facility] [address] [id number] [address] [place] [address], [place] [address] Sep, [facility] [address] [id number] [address] [place] [address], [place] [address] Sep, [facility] [address] [id number] [address] [place] [address], [place] [address] Sep, [facility] [address] [id number] [address] [place] [address], [place] [address] Sep, [facility] [address] [id number] [address] [place] [address], [place] [address] Sep, [facility] [address] [id number] [address] [place] [address], [place] [address] Sep, [facility] [address] [id number] [address] [place] [address], [place] [address] Aug, [facility] [address] [id number] [address] [place] [address], [place] [address] Aug, [facility] [address] [id number] [address] [place] [address], [place] [address] Aug, [facility] [address] [id number] [address] [place] [address], [place] [address] 21 Aug, 2011 [facility] [address] [id number] [address] [place] [address], [place] [address] 20 Aug, [address] [facility] [address] [id number] [address] [place] [address], [place] [address] 19 Aug, 2011 [facility] [address] [id number] [address] [place] [address], [place] [address] 16 Aug, 2011 [facility] [address] [id number] [address] [place] [address], [place] [address] 15 Aug, 2011 [facility] [address] [id number] [address] [place] [address], [place] [address] 15 Aug, [address] [facility] [address] [id number] [address] [place] [address], [place] [address] 14 Aug, [address] [facility] [address] [id number] [address] [place] [address], [place] [address] 12 Aug, 2011 [facility] [address] [id number] [address] [place] [address], [place] [address] 08 Aug, [address] [facility] [address] [id number] [address] [place] [address], [place] [address] 15 Jul, [address] [facility] [address] [id number] [address] [place] [address], [place] [address] 15 Jul, [address] [facility] [address] [id number] [address] [place] [address], [place] [address] 14 Jul, [address] [facility] [address] [id number] [address] [place] [address], [place] [id number] 06 Jul, [address] [facility] [address] [id number] [address] [place] [address], [place] [address] 02 Jul, [address] [facility] [address] [id number] [address] [place] [address], [place] [address] 18 Jun, [address] [facility] [address] [id number] [address] [place] [address], [place] [address] Jun, [facility] [address] [id number] [address] [place] [address], [place] [address] Jun, [facility] [address] [id number] [address] [place] [address], [place] [address] 29 May, 2011 [facility] [address] [id number] [address] [place] [address], [place] [address] May, [facility] [address] [id number] [address] [place] [address], [place] [address] May, [facility] [address] [id number] [address] [place] [address], [place] [address] 19 May, 2011 [facility] [address] [id number] [address] [place] [address], [place] [id number] 14 May, 2011 [facility] [address] [id number] [address] [place] [address], [place] [address] 16 Apr, 2011 [facility] [address] [id number] [address] [place] [address], [place] [address] 16 Apr, 2011 [facility] [address] [id number] [address] [place] [address], [place] [address] 15 Apr, 2011 [facility] [address] [id number] [address] [place] [address], [place] [address] 14 Apr, 2011 [facility] [address] [id number] [address] [place] [address], [place] [address] 25 Mar, 2011 [facility] [address] [id number] [address] [place] [address], [place] [address] 24 Mar, 2011 [facility] [address] [id number] [address] [place] [address], [place] [address] 19 Mar, 2011 [facility] [address] [id number] [address] [place] [address], [place] [address] 19 Mar, 2011 [facility] [address] [id number] [address] [place] [id number] 17 Mar, 2011 [facility] [address] [id number] [address] [place] [id number] 17 Mar, 2011 [facility] [address] [id number] [address] [place] [id number] 16 Feb, 2011 [facility] [address] [id number] [address] [place] [id number] Nov, [facility] [address] [id number] [address] [place] [phone] Aug, [facility] [address] [id number] [address] [place] [phone] Apr, [facility] [address] [id number] [address] [place] [id number] Mar, [facility] [address] [id number] [address] [place] [phone] Apr, [facility] [address] [id number] [address] [place] [phone] Apr, [facility] [address] [id number] [address] [place] [id number] Sep, [facility] [address] [id number] [address] [place] [id number] Mar, IMMUNIZATIONS No Known Immunizations SOCIAL HISTORY [...] ER for Kidney pain/Stones 06/19/18 Hospitalization History [facility] X4 days 9
--- OUTSIDE RECORDS SUMMARY | 2019-12-26 11:03 | XMS REPORT ---
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 [place] [address] Jun, [facility] [address] [id number] [address] [place] [address], [place] [address] May, [facility] [address] [id number] [address] [place] [address], [place] [address] May, [facility] [address] [id number] [address] [place] [address], [place] [address] Apr, [facility] [address] [id number] [address] [place] [address], [place] [address] Apr, [facility] [address] [id number] [address] [place] [address], [place] [address] Apr, [facility] [address] [id number] [address] [place] [address], [place] [address] Apr, [facility] [address] [id number] [address] [place] [address], [place] [address] Apr, [facility] [address] [id number] [address] [place] [address], [place] [address] Apr, [facility] [address] [id number] [address] [place] [address], [place] [address] Apr, [facility] [address] [id number] [address] [place] [address] Apr, [facility] [address] [id number] [address] [place] [id number] Mar, [facility] [address] [id number] [address] [place] [address], [place] [address] Mar, [facility] [address] [id number] [address] [place] [address], [place] [address] Mar, [facility] [address] [id number] [address] [place] [address], [place] [address] Mar, [facility] [address] [id number] [address] [place] [address], [place] [address] 15 Mar, 2012 [facility] [address] [id number] [address] [place] [address], [place] [address] Mar, [facility] [address] [id number] [address] [place] [address], [place] [address] Mar, [facility] [address] [id number] [address] [place] [address], [place] [address] Mar, [facility] [address] [id number] [address] [place] [address], [place] [address] Mar, [facility] [address] [id number] [address] [place] [address], [place] [address] Feb, [facility] [address] [id number] [address] [place] [address], [place] [address] Jan, [facility] [address] [id number] [address] [place] [address], [place] [address] Jan, [facility] [address] [id number] [address] [place] [address], [place] [address] Jan, [facility] [address] [id number] [address] [place] [address], [place] [address] Dec, [facility] [address] [id number] [address] [place] [address], [place] [address] Dec, [facility] [address] [id number] [address] [place] [address], [place] [address] Dec, [facility] [address] [id number] [address] [place] [address], [place] [address] Nov, [facility] [address] [id number] [address] [place] [address], [place] [address] October, [facility] [address] [id number] [address] [place] [address], [place] [address] October, [facility] [address] [id number] [address] [place] [address], [place] [address] October, [facility] [address] [id number] [address] [place] [address], [place] [address] October, [facility] [address] [id number] [address] [place] [address], [place] [address] October, [facility] [address] [id number] [address] [place] [address], [place] [address] 30 Sep, 2011 [facility] [address] [id number] [address] [place] [address], [place] [address] Sep, [facility] [address] [id number] [address] [place] [address], [place] [address] Sep, [facility] [address] [id number] [address] [place] [address], [place] [address] Sep, [facility] [address] [id number] [address] [place] [address], [place] [address] Sep, [facility] [address] [id number] [address] [place] [address], [place] [address] Sep, [facility] [address] [id number] [address] [place] [address], [place] [address] Sep, [facility] [address] [id number] [address] [place] [address], [place] [address] Aug, [facility] [address] [id number] [address] [place] [address], [place] [address] Aug, [facility] [address] [id number] [address] [place] [address], [place] [address] Aug, [facility] [address] [id number] [address] [place] [address], [place] [address] Aug, [facility] [address] [id number] [address] [place] [address], [place] [address] Aug, [facility] [address] [id number] [address] [place] [address], [place] [address] 19 Aug, 2011 [facility] [address] [id number] [address] [place] [address], [place] [address] 16 Aug, 2011 [facility] [address] [id number] [address] [place] [address], [place] [address] 15 Aug, 2011 [facility] [address] [id number] [address] [place] [address], [place] [address] 15 Aug, 2011 [facility] [address] [id number] [address] [place] [address], [place] [address] 14 Aug, 2011 [facility] [address] [id number] [address] [place] [address], [place] [address] 12 Aug, 2011 [facility] [address] [id number] [address] [place] [address], [place] [address] 08 Aug, 2011 [facility] [address] [id number] [address] [place] [address], [place] [address] 15 Jul, 2011 [facility] [address] [id number] [address] [place] [address], [place] [address] 15 Jul, 2011 [facility] [address] [id number] [address] [place] [address], [place] [address] 14 Jul, 2011 [facility] [address] [id number] [address] [place] [address], [place] [address] 06 Jul, 2011 [facility] [address] [id number] [address] [place] [address], [place] [address] 02 Jul, 2011 [facility] [address] [id number] [address] [place] [address], [place] [address] Jun, [facility] [address] [id number] [address] [place] [address], [place] [address] Jun, [facility] [address] [id number] [address] [place] [address], [place] [address] Jun, [facility] [address] [id number] [address] [place] [address], [place] [address] May, [facility] [address] [id number] [address] [place] [address], [place] [address] May, [facility] [address] [id number] [address] [place] [address], [place] [address] 19 May, 2011 [facility] [address] [id number] [address] [place] [address], [place] [address] 19 May, 2011 [facility] [address] [id number] [address] [place] [address], [place] [address] 14 May, 2011 [facility] [address] [id number] [address] [place] [address], [place] [address] 16 Apr, 2011 [facility] [address] [id number] [address] [place] [address], [place] [address] 16 Apr, 2011 [facility] [address] [id number] [address] [place] [address], [place] [address] 15 Apr, 2011 [facility] [address] [id number] [address] [place] [address], [place] [address] 14 Apr, 2011 [facility] [address] [id number] [address] [place] [address], [place] [address] 25 Mar, 2011 [facility] [address] [id number] [address] [place] [address], [place] [address] 24 Mar, 2011 [facility] [address] [id number] [address] [place] [address], [place] [address] 19 Mar, 2011 [facility] [address] [id number] [address] [place] [address], [place] [address] 19 Mar, 2011 [facility] [address] [id number] [address] [place] [id number] 17 Mar, 2011 [facility] [address] [id number] [address] [place] [address], [place] [address] 17 Mar, 2011 [facility] [address] [id number] [address] [place] [address], [place] [address] 16 Feb, 2011 [facility] [address] [id number] [address] [place] [address], [place] [address] 10 Nov, 2010 [facility] [address] [id number] [address] [place] [id number] 17 Aug, 2010 [facility] [address] [facility] [id number] [address] [place] [id number] 11 Apr, 2010 [facility] [address] [facility] [id number] [address] [place] [id number] Mar, [facility] [address] [facility] [id number] [address] [place] [id number] Apr, [facility] [address] [facility] [id number] [address] [place] [id number] Apr, [facility] [address] [facility] [id number] [address] [place] [id number] Sep, [facility] [address] [facility] [id number] [address] [place] [id number] 17 Mar, 2008 IMMUNIZATIONS No Known Immunizations [...] ER for Kidney pain/Stones 06/19/18 Hospitalization History [facility] X4 days 9
--- OUTSIDE RECORDS SUMMARY | 2019-12-26 11:03 | XMS REPORT ---
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 [place] [address], [place] [address] Apr, [facility] [address] [id number] [address] [place] [address], [place] [address] Apr, [facility] [address] [id number] [address] [place] [address], [place] [address] Apr, [facility] [address] [id number] [address] [place] [address], [place] [address] Apr, [facility] [address] [id number] [address] [place] [place] [address], [place] [address] Apr, [facility] [address] [id number] [address] [place] [address], [place] [address] Apr, [facility] [address] [id number] [address] [place] [address], [place] [address] Apr, [facility] [address] [id number] [address] [place] [address] Apr, [facility] [address] [id number] [address] [place] [address] Mar, [facility] [address] [id number] [address] [address], [place] [address] Mar, [facility] [address] [id number] [address] [place] [address], [place] [address] Mar, [facility] [address] [id number] [address] [place] [address], [place] [address] Mar, [facility] [address] [id number] [address] [address], [place] [address] 15 Mar, 2012 [facility] [address] [id number] [address] [place] [address], [place] [address] Mar, [facility] [address] [id number] [address] [place] [address], [place] [address] Mar, [facility] [address] [id number] [address] [place] [address], [place] [address] Mar, [facility] [address] [id number] [address] [place] [address], [place] [address] Mar, [facility] [address] [id number] [address] [place] [address], [place] [address] Feb, [facility] [address] [id number] [address] [place] [address], [place] [address] Jan, [facility] [address] [id number] [address] [place] [address], [place] [address] Jan, [facility] [address] [id number] [address] [place] [address], [place] [address] Jan, [facility] [address] [id number] [address] [place] [address], [place] [address] Dec, [facility] [address] [id number] [address] [address], [place] [address] Dec, [facility] [address] [id number] [address] [address], [place] [address] Dec, [facility] [address] [id number] [address] [place] [address], [place] [address] Nov, [facility] [address] [id number] [address] [place] [address], [place] [address] October, [facility] [address] [id number] [address] [place] [address], [place] [address] October, [facility] [address] [id number] [address] [place] [address], [place] [address] October, [facility] [address] [id number] [address] [address], [place] [address] October, [facility] [address] [id number] [address] [place] [address], [place] [address] October, [facility] [address] [id number] [address] [address], [place] [address] 30 Sep, 2011 [facility] [address] [id number] [address] [address], [place] [address] Sep, [facility] [address] [id number] [address] [address], [place] [address] Sep, [facility] [address] [id number] [address] [address], [place] [address] Sep, [facility] [address] [id number] [address] [address], [place] [address] Sep, [facility] [address] [id number] [address] [place] [address], [place] [address] Sep, [facility] [address] [id number] [address] [place] [address], [place] [address] Sep, [facility] [address] [id number] [address] [place] [address], [place] [address] Aug, [facility] [address] [id number] [address] [address], [place] [address] Aug, [facility] [address] [id number] [address] [address], [place] [address] Aug, [facility] [address] [id number] [address] [place] [address], [place] [address] Aug, [facility] [address] [id number] [address] [place] [address], [place] [address] Aug, [facility] [address] [id number] [address] [place] [address], [place] [address] 19 Aug, 2011 [facility] [address] [id number] [address] [place] [address], [place] [address] 16 Aug, 2011 [facility] [address] [id number] [address] [address], [place] [address] 15 Aug, 2011 [facility] [address] [id number] [address] [place] [address], [place] [address] 15 Aug, 2011 [facility] [address] [id number] [address] [place] [place] [address], [place] [address] 14 Aug, 2011 [facility] [address] [id number] [address] [place] [address], [place] [address] 12 Aug, 2011 [facility] [address] [id number] [address] [place] [address], [place] [address] 08 Aug, 2011 [facility] [address] [id number] [address] [address], [place] [address] 15 Jul, 2011 [facility] [address] [id number] [address] [place] [address], [place] [address] 15 Jul, 2011 [facility] [address] [id number] [address] [place] [address], [place] [address] 14 Jul, 2011 [facility] [address] [id number] [address] [place] [address], [place] [address] 06 Jul, 2011 [facility] [address] [id number] [address] [address], [place] [address] 02 Jul, 2011 [facility] [address] [id number] [address] [place] [address], [place] [address] Jun, [facility] [address] [id number] [address] [place] [address], [place] [address] Jun, [facility] [address] [id number] [address] [place] [address], [place] [address] Jun, [facility] [address] [id number] [address] [place] [address], [place] [address] May, [facility] [address] [id number] [address] [place] [address], [place] [address] May, [facility] [address] [id number] [address] [place] [address], [place] [address] 19 May, 2011 [facility] [address] [id number] [address] [place] [address], [place] [address] 19 May, 2011 [facility] [address] [id number] [address] [place] [address], [place] [address] 14 May, 2011 [facility] [address] [id number] [address] [place] [address], [place] [address] 16 Apr, 2011 [facility] [address] [id number] [address] [place] [address], [place] [address] 16 Apr, 2011 [facility] [address] [id number] [address] [place] [address], [place] [address] 15 Apr, 2011 [facility] [address] [id number] [address] [place] [address], [place] [address] 14 Apr, 2011 [facility] [address] [id number] [address] [place] [address], [place] [address] 25 Mar, 2011 [facility] [address] [id number] [address] [place] [address], [place] [address] 24 Mar, 2011 [facility] [address] [id number] [address] [place] [address], [place] [address] 19 Mar, 2011 [facility] [address] [id number] [address] [place] [address], [place] [address] 19 Mar, 2011 [facility] [address] [id number] [address] [place] [id number] 17 Mar, 2011 [facility] [address] [id number] [address] [place] [address], [place] [address] 17 Mar, 2011 [facility] [address] [id number] [address] [place] [address], [place] [address] 16 Feb, 2011 [facility] [address] [id number] [address] [place] [address], [place] [address] 10 Nov, 2010 [facility] [address] [id number] [address] [place] [id number] 17 Aug, 2010 [facility] [address] [facility] [id number] [address] [place] [id number] 11 Apr, 2010 [facility] [address] [facility] [id number] [address] [place] [id number] Mar, [facility] [address] [facility] [id number] [address] [place] [id number] Apr, [facility] [address] [facility] [id number] [address] [place] [phone] Apr, [facility] [address] [facility] [id number] [address] [place] [id number] Sep, [facility] [address] [facility] [id number] [address] [place] [id number] 17 Mar, 2008 IMMUNIZATIONS No Known Immunizations [...] ER for Kidney pain/Stones 06/19/18 Hospitalization History [facility] [place] X4 days 9
--- OUTSIDE RECORDS SUMMARY | 2019-12-26 11:04 | XMS REPORT ---
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 [address] Jun, [facility] [address] [id number] [address] [place] [address], [place] [address] Jun, [facility] [address] [id number] [address] [place] [address], [place] [address] May, [facility] [address] [id number] [address] [place] [address], [place] [address] May, [facility] [address] [id number] [address] [place] [address], [place] [address] Apr, [facility] [address] [id number] [address] [place] [address], [place] [address] Apr, [facility] [address] [id number] [address] [place] [address], [place] [address] Apr, [facility] [address] [id number] [address] [place] [address], [place] [address] Apr, [facility] [address] [id number] [address] [place] [address], [place] [address] Apr, [facility] [address] [id number] [address] [place] [address], [place] [address] Apr, [facility] [address] [id number] [address] [place] [address], [place] [address] Apr, [facility] [address] [id number] [address] [place] [address] Apr, [facility] [address] [id number] [address] [place] [address] Mar, [facility] [address] [id number] [address] [place] [address], [place] [address] Mar, [facility] [address] [id number] [address] [place] [address], [place] [address] Mar, [facility] [address] [id number] [address] [place] [address], [place] [address] Mar, [facility] [address] [id number] [address] [place] [address], [place] [address] 15 Mar, 2012 [facility] [address] [id number] [address] [place] [address], [place] [address] Mar, [facility] [address] [id number] [address] [place] [address], [place] [address] Mar, [facility] [address] [id number] [address] [place] [address], [place] [address] Mar, [facility] [address] [id number] [address] [place] [address], [place] [address] Mar, [facility] [address] [id number] [address] [place] [address], [place] [address] Feb, [facility] [address] [id number] [address] [place] [address], [place] [address] Jan, [facility] [address] [id number] [address] [place] [address], [place] [address] Jan, [facility] [address] [id number] [address] [place] [address], [place] [address] Jan, [facility] [address] [id number] [address] [place] [address], [place] [address] Dec, [facility] [address] [id number] [address] [place] [address], [place] [address] Dec, [facility] [address] [id number] [address] [place] [address], [place] [address] Dec, [facility] [address] [id number] [address] [place] [address], [place] [address] Nov, [facility] [address] [id number] [address] [place] [address], [place] [address] October, [facility] [address] [id number] [address] [place] [address], [place] [address] October, [facility] [address] [id number] [address] [place] [address], [place] [address] October, [facility] [address] [id number] [address] [place] [address], [place] [address] October, [facility] [address] [id number] [address] [place] [address], [place] [address] October, [facility] [address] [id number] [address] [place] [address], [place] [address] 30 Sep, 2011 [facility] [address] [id number] [address] [place] [address], [place] [address] Sep, [facility] [address] [id number] [address] [place] [address], [place] [address] Sep, [facility] [address] [id number] [address] [place] [address], [place] [address] Sep, [facility] [address] [id number] [address] [place] [address], [place] [address] Sep, [facility] [address] [id number] [address] [place] [address], [place] [address] Sep, [facility] [address] [id number] [address] [place] [address], [place] [address] Sep, [facility] [address] [id number] [address] [place] [address], [place] [address] Aug, [facility] [address] [id number] [address] [place] [address], [place] [address] Aug, [facility] [address] [id number] [address] [place] [address], [place] [address] Aug, [facility] [address] [id number] [address] [place] [address], [place] [address] Aug, [facility] [address] [id number] [address] [place] [address], [place] [address] Aug, [facility] [address] [id number] [address] [place] [address], [place] [address] 19 Aug, 2011 [facility] [address] [id number] [address] [place] [address], [place] [address] 16 Aug, 2011 [facility] [address] [id number] [address] [place] [address], [place] [address] 15 Aug, 2011 [facility] [address] [id number] [address] [place] [address], [place] [address] 15 Aug, 2011 [facility] [address] [id number] [address] [place] [address], [place] [address] 14 Aug, 2011 [facility] [address] [id number] [address] [place] [address], [place] [address] 12 Aug, 2011 [facility] [address] [id number] [address] [place] [address], [place] [address] 08 Aug, 2011 [facility] [address] [id number] [address] [place] [address], [place] [address] 15 Jul, 2011 [facility] [address] [id number] [address] [place] [address], [place] [address] 15 Jul, 2011 [facility] [address] [id number] [address] [place] [address], [place] [address] 14 Jul, 2011 [facility] [address] [id number] [address] [place] [address], [place] [address] 06 Jul, 2011 [facility] [address] [id number] [address] [place] [address], [place] [address] 02 Jul, 2011 [facility] [address] [id number] [address] [place] [address], [place] [address] Jun, [facility] [address] [id number] [address] [place] [address], [place] [address] Jun, [facility] [address] [id number] [address] [place] [address], [place] [address] Jun, [facility] [address] [id number] [address] [place] [address], [place] [address] May, [facility] [address] [id number] [address] [place] [address], [place] [address] May, [facility] [address] [id number] [address] [place] [address], [place] [address] 19 May, 2011 [facility] [address] [id number] [address] [place] [address], [place] [address] 19 May, 2011 [facility] [address] [id number] [address] [place] [address], [place] [address] 14 May, 2011 [facility] [address] [id number] [address] [place] [address], [place] [address] 16 Apr, 2011 [facility] [address] [id number] [address] [place] [address], [place] [address] 16 Apr, 2011 [facility] [address] [id number] [address] [place] [address], [place] [address] 15 Apr, 2011 [facility] [address] [id number] [address] [place] [address], [place] [address] 14 Apr, 2011 [facility] [address] [id number] [address] [place] [address], [place] [address] 25 Mar, 2011 [facility] [address] [id number] [address] [place] [address], [place] [address] 24 Mar, 2011 [facility] [address] [id number] [address] [place] [address], [place] [address] 19 Mar, 2011 [facility] [address] [id number] [address] [place] [address], [place] [id number] 19 Mar, 2011 [facility] [address] [id number] [address] [place] [id number] 17 Mar, 2011 [facility] [address] [id number] [address] [place] [address], [place] [id number] 17 Mar, 2011 [facility] [address] [id number] [address] [place] [address], [place] [id number] 16 Feb, 2011 [facility] [address] [id number] [address] [place] [address], [place] [id number] 10 Nov, 2010 [facility] [address] [id number] [address] [place] [id number] 17 Aug, 2010 [facility] [address] [facility] [id number] [address] [place] [id number] 11 Apr, 2010 [facility] [address] [facility] [id number] [address] [place] [id number] Mar, [facility] [address] [facility] [id number] [address] [place] [id number] Apr, [facility] [address] [facility] [id number] [address] [place] [id number] Apr, [facility] [address] [facility] [id number] [address] [place] [id number] Sep, [facility] [address] [facility] [id number] [address] [place] [id number] 17 Mar, 2008 IMMUNIZATIONS No Known Immunizations [...] ER for Kidney pain/Stones 06/19/18 Hospitalization History [facility] [place] X4 days 9
--- OUTSIDE RECORDS SUMMARY | 2019-12-26 11:04 | XMS REPORT ---
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 [address] 14 Jul, 2012 [facility] [address] [id number] [address] [place] [address], [place] [address] 11 Jul, 2012 [facility] [address] [id number] [address] [place] [address], [place] [address] Jun, [facility] [address] [id number] [address] [place] [address], [place] [address] Jun, [facility] [address] [id number] [address] [place] [address], [place] [address] Jun, [facility] [address] [id number] [address] [place] [address], [place] [address] May, [facility] [address] [id number] [address] [place] [address], [place] [address] May, [facility] [address] [id number] [address] [place] [address], [place] [address] Apr, [facility] [address] [id number] [address] [place] [address], [place] [address] Apr, [facility] [address] [id number] [address] [place] [address], [place] [address] Apr, [facility] [address] [id number] [address] [place] [address], [place] [address] Apr, [facility] [address] [id number] [address] [place] [address], [place] [address] Apr, [facility] [address] [id number] [address] [place] [address], [place] [address] Apr, [facility] [address] [id number] [address] [place] [address], [place] [address] Apr, [facility] [address] [id number] [address] [place] [address], [place] [address] Apr, [facility] [address] [id number] [address] [place] [address], [place] [address] Mar, [facility] [address] [id number] [address] [place] [address] 31 Mar, 2012 [facility] [address] [id number] [address] [place] [address], [place] [address] Mar, [facility] [address] [id number] [address] [place] [address], [place] [address] 31 Mar, 2012 [facility] [address] [id number] [address] [place] [address] 15 Mar, 2012 [facility] [address] [id number] [address] [place] [address] Mar, [facility] [address] [id number] [address] [place] [address], [place] [address] Mar, [facility] [address] [id number] [address] [place] [address], [place] [address] Mar, [facility] [address] [id number] [address] [place] [address], [place] [address] Mar, [facility] [address] [id number] [address] [place] [address], [place] [address] Feb, [facility] [address] [id number] [address] [place] [address], [place] [address] Jan, [facility] [address] [id number] [address] [place] [address], [place] [address] Jan, [facility] [address] [id number] [address] [place] [address], [place] [address] Jan, [facility] [address] [id number] [address] [place] [address], [place] [address] Dec, [facility] [address] [id number] [address] [place] [address], [place] [address] Dec, [facility] [address] [id number] [address] [place] [address], [place] [address] Dec, [facility] [address] [id number] [address] [place] [address], [place] [address] Nov, [facility] [address] [id number] [address] [place] [address], [place] [address] October, [facility] [address] [id number] [address] [place] [address], [place] [address] October, [facility] [address] [id number] [address] [place] [address], [place] [address] October, [facility] [address] [id number] [address] [place] [address], [place] [address] October, [facility] [address] [id number] [facility] [place] [address] October, [facility] [address] [id number] [facility] [place] [address] 30 Sep, 2011 [facility] [address] [id number] [address] [place] [address], [place] [address] 23 Sep, 2011 [facility] [address] [id number] [address] [place] [address], [place] [address] 13 Sep, 2011 [facility] [address] [id number] [address] [place] [address], [place] [address] Sep, [facility] [address] [id number] [address] [place] [address], [place] [address] Sep, [facility] [address] [id number] [address] [place] [address], [place] [address] Sep, [facility] [address] [id number] [address] [place] [address], [place] [address] Sep, [facility] [address] [id number] [address] [place] [address], [place] [address] 28 Aug, 2011 [facility] [address] [id number] [address] [place] [address], [place] [address] 23 Aug, 2011 [facility] [address] [id number] [address] [place] [address], [place] [address] 21 Aug, 2011 [facility] [address] [id number] [address] [place] [address], [place] [address] 21 Aug, 2011 [facility] [address] [id number] [address] [place] [address], [place] [address] 20 Aug, 2011 [facility] [address] [id number] [address] [place] [address], [place] [address] 19 Aug, 2011 [facility] [address] [id number] [address] [place] [address], [place] [address] 16 Aug, 2011 [facility] [address] [id number] [address] [place] [address], [place] [address] 15 Aug, 2011 [facility] [address] [id number] [address] [place] [address], [place] [address] 15 Aug, 2011 [facility] [address] [id number] [address] [place] [address], [place] [address] 14 Aug, 2011 [facility] [address] [id number] [address] [place] [address], [place] [address] 12 Aug, 2011 [facility] [address] [id number] [address] [place] [address], [place] [address] 08 Aug, 2011 [facility] [address] [id number] [address] [place] [address], [place] [address] 15 Jul, 2011 [facility] [address] [id number] [address] [place] [address], [place] [address] 15 Jul, 2011 [facility] [address] [id number] [address] [place] [address], [place] [address] 14 Jul, 2011 [facility] [address] [id number] [address] [place] [address], [place] [address] 06 Jul, 2011 [facility] [address] [id number] [address] [place] [address], [place] [address] 02 Jul, 2011 [facility] [address] [id number] [address] [place] [address], [place] [address] Jun, [facility] [address] [id number] [address] [place] [address], [place] [address] Jun, [facility] [address] [id number] [address] [place] [address], [place] [address] Jun, [facility] [address] [id number] [address] [place] [address], [place] [address] May, [facility] [address] [id number] [address] [place] [address], [place] [address] May, [facility] [address] [id number] [address] [place] [address], [place] [address] May, [facility] [address] [id number] [address] [place] [address], [place] [address] 19 May, 2011 [facility] [address] [id number] [address] [place] [address], [place] [address] 14 May, 2011 [facility] [address] [id number] [address] [place] [address], [place] [address] 16 Apr, 2011 [facility] [address] [id number] [address] [place] [address], [place] [address] 16 Apr, 2011 [facility] [address] [id number] [address] [place] [address], [place] [address] 15 Apr, 2011 [facility] [address] [id number] [address] [place] [address], [place] [address] 14 Apr, 2011 [facility] [address] [id number] [address] [place] [address], [place] [address] 25 Mar, 2011 [facility] [address] [id number] [address] [place] [address], [place] [address] 24 Mar, 2011 [facility] [address] [id number] [address] [place] [address], [place] [address] 19 Mar, 2011 [facility] [address] [id number] [address] [place] [address], [place] [address] 19 Mar, 2011 [facility] [address] [id number] [address] [place] [address], [place] [address] 17 Mar, 2011 [facility] [address] [id number] [address] [place] [address], [place] [address] 17 Mar, 2011 [facility] [address] [id number] [address] [place] [address], [place] [address] 16 Feb, 2011 [facility] [address] [id number] [address] [place] [address], [place] [address] 10 Nov, 2010 [facility] [address] [id number] [address] [place] [address], [place] [address] 17 Aug, 2010 [facility] [address] [id number] [address] [place] [address], [place] [address] 11 Apr, 2010 [facility] [address] [facility] [id number] [address] [place] [address] 16 Mar, 2010 [facility] [address] [facility] [id number] [address] [place] [address] Apr, [facility] [address] [facility] [id number] [address] [place] [address] Apr, [facility] [address] [facility] [id number] [address] [place] [id number] 15 Sep, 2008 [facility] [address] [facility] [id number] [address] [place] [id number] 17 Mar, 2008 IMMUNIZATIONS No Known Immunizations SOCIAL HISTORY Never Assessed REASON FOR VISIT PLAN OF CARE VITAL SIGNS Height 63 in 2014-01-11 Weight 213 lbs 2014-01-11 Heart Rate 76 bpm 2014-01-11 Blood pressure systolic 0 mmHg 2014-01-11 Blood pressure diastolic 0 mmHg 2014-01-11 MEDICATIONS Unknown Medications RESULTS No Results PROCEDURES Procedure Date Ordered Result Body Site MEASURE BLOOD OXYGEN LEVEL Jan 11, 2014 INSTRUCTIONS MEDICATIONS ADMINISTERED No Known Medications MEDICAL [...] for Kidney pain/Stones 06/19/18 Hospitalization History [facility] [place] X4 days 9
--- OUTSIDE RECORDS SUMMARY | 2019-12-26 11:04 | XMS REPORT ---
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 [facility] [address] [id number] [address] [place] [address], [place] [address] 11 Jul, 2012 [facility] [address] [id number] [address] [place] [address], [place] [address] Jun, [facility] [address] [id number] [address] [place] [address], [place] [address] Jun, [facility] [address] [id number] [address] [place] [address], [place] [address] Jun, [facility] [address] [id number] [address] [place] [address], [place] [address] May, [facility] [address] [id number] [address] [place] [address], [place] [address] May, [facility] [address] [id number] [address] [place] [address], [place] [address] Apr, [facility] [address] [id number] [address] [place] [address], [place] [address] Apr, [facility] [address] [id number] [address] [place] [address], [place] [address] Apr, [facility] [address] [id number] [address] [place] [address], [place] [address] Apr, [facility] [address] [id number] [address] [place] [address], [place] [address] Apr, [facility] [address] [id number] [address] [place] [address], [place] [address] Apr, [facility] [address] [id number] [address] [place] [address], [place] [address] Apr, [facility] [address] [id number] [address] [place] [address], [place] [address] Apr, [facility] [address] [id number] [address] [place] [address], [place] [address] Mar, [facility] [address] [id number] [address] [place] [id number] 31 Mar, 2012 [facility] [address] [id number] [address] [place] [address], [place] [address] Mar, [facility] [address] [id number] [address] [place] [address], [place] [address] 31 Mar, 2012 [facility] [address] [id number] [address] [place] [id number] 15 Mar, 2012 [facility] [address] [id number] [address] [place] [id number] Mar, [facility] [address] [id number] [address] [place] [address], [place] [address] Mar, [facility] [address] [id number] [address] [place] [address], [place] [address] Mar, [facility] [address] [id number] [address] [place] [address], [place] [address] Mar, [facility] [address] [id number] [address] [place] [address], [place] [address] Feb, [facility] [address] [id number] [address] [place] [address], [place] [address] Jan, [facility] [address] [id number] [address] [place] [address], [place] [address] Jan, [facility] [address] [id number] [address] [place] [address], [place] [address] Jan, [facility] [address] [id number] [address] [place] [address], [place] [address] Dec, [facility] [address] [id number] [address] [place] [address], [place] [address] Dec, [facility] [address] [id number] [address] [place] [address], [place] [address] Dec, [facility] [address] [id number] [address] [place] [address], [place] [address] Nov, [facility] [address] [id number] [address] [place] [address], [place] [address] October, [facility] [address] [id number] [address] [place] [address], [place] [address] October, [facility] [address] [id number] [address] [place] [address], [place] [address] October, [facility] [address] [id number] [address] [place] [address], [place] [address] October, [facility] [address] [id number] [facility] [place] [address] October, [facility] [address] [id number] [facility] [place] [address] 30 Sep, 2011 [facility] [address] [id number] [address] [place] [address], [place] [address] 23 Sep, 2011 [facility] [address] [id number] [address] [place] [address], [place] [address] 13 Sep, 2011 [facility] [address] [id number] [address] [place] [address], [place] [address] Sep, [facility] [address] [id number] [address] [place] [address], [place] [address] Sep, [facility] [address] [id number] [address] [place] [address], [place] [address] Sep, [facility] [address] [id number] [address] [place] [address], [place] [address] Sep, [facility] [address] [id number] [address] [place] [address], [place] [address] 28 Aug, 2011 [facility] [address] [id number] [address] [place] [address], [place] [address] 23 Aug, 2011 [facility] [address] [id number] [address] [place] [address], [place] [address] 21 Aug, 2011 [facility] [address] [id number] [address] [place] [address], [place] [address] 21 Aug, 2011 [facility] [address] [id number] [address] [place] [address], [place] [address] 20 Aug, 2011 [facility] [address] [id number] [address] [place] [address], [place] [address] 19 Aug, 2011 [facility] [address] [id number] [address] [place] [address], [place] [address] 16 Aug, 2011 [facility] [address] [id number] [address] [place] [address], [place] [address] 15 Aug, 2011 [facility] [address] [id number] [address] [place] [address], [place] [address] 15 Aug, 2011 [facility] [address] [id number] [address] [place] [address], [place] [address] 14 Aug, 2011 [facility] [address] [id number] [address] [place] [address], [place] [address] 12 Aug, 2011 [facility] [address] [id number] [address] [place] [address], [place] [address] 08 Aug, 2011 [facility] [address] [id number] [address] [place] [address], [place] [address] 15 Jul, 2011 [facility] [address] [id number] [address] [place] [address], [place] [address] 15 Jul, 2011 [facility] [address] [id number] [address] [place] [address], [place] [address] 14 Jul, 2011 [facility] [address] [id number] [address] [place] [address], [place] [address] 06 Jul, 2011 [facility] [address] [id number] [address] [place] [address], [place] [address] 02 Jul, 2011 [facility] [address] [id number] [address] [place] [address], [place] [address] Jun, [facility] [address] [id number] [address] [place] [address], [place] [address] Jun, [facility] [address] [id number] [address] [place] [address], [place] [address] Jun, [facility] [address] [id number] [address] [place] [address], [place] [address] May, [facility] [address] [id number] [address] [place] [address], [place] [address] May, [facility] [address] [id number] [address] [place] [address], [place] [address] May, [facility] [address] [id number] [address] [place] [address], [place] [address] 19 May, 2011 [facility] [address] [id number] [address] [place] [address], [place] [address] 14 May, 2011 [facility] [address] [id number] [address] [place] [address], [place] [address] 16 Apr, 2011 [facility] [address] [id number] [address] [place] [address], [place] [address] 16 Apr, 2011 [facility] [address] [id number] [address] [place] [address], [place] [address] 15 Apr, 2011 [facility] [address] [id number] [address] [place] [address], [place] [address] 14 Apr, 2011 [facility] [address] [id number] [address] [place] [address], [place] [address] 25 Mar, 2011 [facility] [address] [id number] [address] [place] [address], [place] [id number] 24 Mar, 2011 [facility] [address] [id number] [address] [place] [address], [place] [id number] 19 Mar, 2011 [facility] [address] [id number] [address] [place] [address], [place] [id number] 19 Mar, 2011 [facility] [address] [id number] [address] [place] [address], [place] [id number] 17 Mar, 2011 [facility] [address] [id number] [address] [place] [address], [place] [id number] 17 Mar, 2011 [facility] [address] [id number] [address] [place] [address], [place] [id number] 16 Feb, 2011 [facility] [address] [id number] [address] [place] [address], [place] [id number] 10 Nov, 2010 [facility] [address] [id number] [address] [place] [address], [place] [id number] 17 Aug, 2010 [facility] [address] [id number] [address] [place] [address], [place] [id number] 11 Apr, 2010 [facility] [address] [facility] [id number] [address] [place] [id number] 16 Mar, 2010 [facility] [address] [facility] [id number] [address] [place] [id number] Apr, [facility] [address] [facility] [id number] [address] [place] [id number] Apr, [facility] [address] [facility] [id number] [address] [place] [id number] Sep, [facility] [address] [facility] [id number] [address] [place] [id number] 17 Mar, 2008 IMMUNIZATIONS No Known Immunizations SOCIAL HISTORY Never Assessed REASON FOR VISIT PLAN OF CARE VITAL SIGNS Height 63 in 2014-02-21 Weight 209 lbs 2014-02-21 Temperature 97.8 degrees Fahrenheit 2014-02-21 Heart Rate 80 bpm 2014-02-21 Respiratory Rate 20 2014-02-21 Blood pressure systolic 116 mmHg 2014-02-21 Blood pressure diastolic 84 mmHg 2014-02-21 MEDICATIONS Unknown Medications RESULTS No Results PROCEDURES Procedure Date Ordered Result Body Site MRI UPPER EXTREMITY W/O DYE Feb 21, 2014 INSTRUCTIONS MEDICATIONS ADMINISTERED No Known Medications [...] for Kidney pain/Stones 06/19/18 Hospitalization History [facility] [place] X[facility] days 9
[2019-12-26 11:05] VITALS: BP 97/61
--- OUTSIDE RECORDS SUMMARY | 2019-12-26 11:05 | XMS REPORT ---
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 [address] [place] [address], [place] [address] Jun, [facility] [address] [id number] [address] [place] [address], [place] [address] May, [facility] [address] [id number] [address] [place] [address], [place] [address] May, [facility] [address] [id number] [address] [place] [address], [place] [address] Apr, [facility] [address] [id number] [address] [place] [address], [place] [address] Apr, [facility] [address] [id number] [address] [place] [address], [place] [address] Apr, [facility] [address] [id number] [address] [place] [address], [place] [address] Apr, [facility] [address] [id number] [address] [place] [address] Apr, [facility] [address] [id number] [address] [place] [address], [place] [address] Apr, [facility] [address] [id number] [address] [place] [address] Apr, [facility] [address] [id number] [address] [place] [address] Apr, [facility] [address] [id number] [address] [place] [address] Mar, [facility] [address] [id number] [address] [place] [address], [place] [address] Mar, [facility] [address] [id number] [address] [place] [address], [place] [address] Mar, [facility] [address] [id number] [address] [place] [address] Mar, [facility] [address] [id number] [address] [place] [address] Mar, [facility] [address] [id number] [address] [place] [address], [place] [address] Mar, [facility] [address] [id number] [address] [place] [address], [place] [address] Mar, [facility] [address] [id number] [address] [place] [address], [place] [address] Mar, [facility] [address] [id number] [address] [place] [address], [place] [address] Mar, [facility] [address] [id number] [address] [place] [address], [place] [address] Feb, [facility] [address] [id number] [address] [place] [address], [place] [address] Jan, [facility] [address] [id number] [address] [place] [address], [place] [address] Jan, [facility] [address] [id number] [address] [place] [address], [place] [address] Jan, [facility] [address] [id number] [address] [place] [address], [place] [address] Dec, [facility] [address] [id number] [address] [place] [address], [place] [address] Dec, [facility] [address] [id number] [address] [place] [address], [place] [address] Dec, [facility] [address] [id number] [address] [place] [address], [place] [address] Nov, [facility] [address] [id number] [address] [place] [address], [place] [address] October, [facility] [address] [id number] [address] [place] [address], [place] [address] October, [facility] [address] [id number] [address] [place] [address], [place] [address] October, [facility] [address] [id number] [facility] [place] [address] October, [facility] [address] [id number] [facility] [place] [address] October, [facility] [address] [id number] [facility] [place] [address] 30 Sep, 2011 [facility] [address] [id number] [address] [place] [address], [place] [address] Sep, [facility] [address] [id number] [address] [place] [address], [place] [address] Sep, [facility] [address] [id number] [address] [place] [address], [place] [address] Sep, [facility] [address] [id number] [address] [place] [address], [place] [address] Sep, [facility] [address] [id number] [address] [place] [address], [place] [address] Sep, [facility] [address] [id number] [address] [place] [address], [place] [address] Sep, [facility] [address] [id number] [address] [place] [address], [place] [address] 28 Aug, 2011 [facility] [address] [id number] [address] [place] [address], [place] [address] Aug, [facility] [address] [id number] [address] [place] [address], [place] [address] Aug, [facility] [address] [id number] [address] [place] [address], [place] [address] 21 Aug, 2011 [facility] [address] [id number] [address] [place] [address], [place] [address] 20 Aug, 2011 [facility] [address] [id number] [address] [place] [address], [place] [address] 19 Aug, 2011 [facility] [address] [id number] [address] [place] [address], [place] [address] 16 Aug, 2011 [facility] [address] [id number] [address] [place] [address], [place] [address] 15 Aug, 2011 [facility] [address] [id number] [address] [place] [address], [place] [address] 15 Aug, 2011 [facility] [address] [id number] [address] [place] [address], [place] [address] 14 Aug, 2011 [facility] [address] [id number] [address] [place] [address], [place] [address] 12 Aug, 2011 [facility] [address] [id number] [address] [place] [address], [place] [address] 08 Aug, 2011 [facility] [address] [id number] [address] [place] [address], [place] [address] 15 Jul, 2011 [facility] [address] [id number] [address] [place] [address], [place] [address] 15 Jul, 2011 [facility] [address] [id number] [address] [place] [address], [place] [address] 14 Jul, 2011 [facility] [address] [id number] [address] [place] [address], [place] [address] 06 Jul, 2011 [facility] [address] [id number] [address] [place] [address], [place] [address] 02 Jul, 2011 [facility] [address] [id number] [address] [place] [address], [place] [address] Jun, [facility] [address] [id number] [address] [place] [address], [place] [address] Jun, [facility] [address] [id number] [address] [place] [address], [place] [address] Jun, [facility] [address] [id number] [address] [place] [address], [place] [address] May, [facility] [address] [id number] [address] [place] [address], [place] [address] May, [facility] [address] [id number] [address] [place] [address], [place] [address] 19 May, 2011 [facility] [address] [id number] [address] [place] [address], [place] [address] 19 May, 2011 [facility] [address] [id number] [address] [place] [address], [place] [address] 14 May, 2011 [facility] [address] [id number] [address] [place] [address], [place] [address] 16 Apr, 2011 [facility] [address] [id number] [address] [place] [address], [place] [address] 16 Apr, 2011 [facility] [address] [id number] [address] [place] [address], [place] [address] 15 Apr, 2011 [facility] [address] [id number] [address] [place] [address], [place] [address] 14 Apr, 2011 [facility] [address] [id number] [address] [place] [address], [place] [address] 25 Mar, 2011 [facility] [address] [id number] [address] [place] [address], [place] [address] 24 Mar, 2011 [facility] [address] [id number] [address] [place] [address], [place] [address] 19 Mar, 2011 [facility] [address] [id number] [address] [place] [address], [place] [address] 19 Mar, 2011 [facility] [address] [id number] [address] [place] [address], [place] [address] 17 Mar, 2011 [facility] [address] [id number] [address] [place] [address], [place] [address] 17 Mar, 2011 [facility] [address] [id number] [address] [place] [address], [place] [address] 16 Feb, 2011 [facility] [address] [id number] [address] [place] [address], [place] [address] Nov, [facility] [address] [id number] [address] [place] [address], [place] [address] Aug, [facility] [address] [facility] [id number] [address] [place] [address] 11 Apr, 2010 [facility] [address] [facility] [id number] [address] [place] [id number] Mar, [facility] [address] [facility] [id number] [address] [place] [address] Apr, [facility] [address] [facility] [id number] [address] [place] [address] Apr, [facility] [address] [facility] [id number] [address] [place] [address] Sep, [facility] [address] [facility] [id number] [address] [place] [id number] Mar, IMMUNIZATIONS No Known Immunizations SOCIAL HISTORY Never Assessed REASON FOR VISIT PLAN OF CARE VITAL SIGNS Height 63 in 2014-01-25 Weight 210.3 lbs 2014-01-25 Temperature 98.5 degrees Fahrenheit 2014-01-25 Heart Rate 88 bpm 2014-01-25 Respiratory Rate 18 2014-01-25 Blood pressure systolic 120 mmHg 2014-01-25 Blood pressure diastolic 76 mmHg 2014-01-25 MEDICATIONS Unknown Medications RESULTS No Results PROCEDURES Procedure Date Ordered Result Body Site X-RAY EXAM OF SHOULDER Jan 25, 2014 INSTRUCTIONS MEDICATIONS ADMINISTERED No Known Medications [...] Kidney pain/Stones 06/19/18 Hospitalization History [facility] X4 days 9
--- OUTSIDE RECORDS SUMMARY | 2019-12-26 11:05 | XMS REPORT ---
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 [facility] [address] [id number] [address] [place] [address], [place] [address] 11 Jul, 2012 [facility] [address] [id number] [address] [place] [address], [place] [address] Jun, [facility] [address] [id number] [address] [place] [address], [place] [address] Jun, [facility] [address] [id number] [address] [place] [address], [place] [address] Jun, [facility] [address] [id number] [address] [place] [address], [place] [address] May, [facility] [address] [id number] [address] [place] [address], [place] [address] May, [facility] [address] [id number] [address] [place] [address], [place] [address] Apr, [facility] [address] [id number] [address] [place] [address], [place] [address] Apr, [facility] [address] [id number] [address] [place] [address], [place] [address] Apr, [facility] [address] [id number] [address] [place] [address], [place] [address] Apr, [facility] [address] [id number] [address] [place] [address], [place] [address] Apr, [facility] [address] [id number] [address] [place] [address], [place] [address] Apr, [facility] [address] [id number] [address] [place] [address], [place] [address] Apr, [facility] [address] [id number] [address] [place] [address], [place] [address] Apr, [facility] [address] [id number] [address] [place] [address], [place] [address] Mar, [facility] [address] [id number] [address] [place] [address] 31 Mar, 2012 [facility] [address] [id number] [address] [place] [address], [place] [address] Mar, [facility] [address] [id number] [address] [place] [address], [place] [address] 31 Mar, 2012 [facility] [address] [id number] [address] [place] [address] 15 Mar, 2012 [facility] [address] [id number] [address] [place] [address] Mar, [facility] [address] [id number] [address] [place] [address], [place] [address] Mar, [facility] [address] [id number] [address] [place] [address], [place] [address] Mar, [facility] [address] [id number] [address] [place] [address], [place] [address] Mar, [facility] [address] [id number] [address] [place] [address], [place] [address] Feb, [facility] [address] [id number] [address] [place] [address], [place] [address] Jan, [facility] [address] [id number] [address] [place] [address], [place] [address] Jan, [facility] [address] [id number] [address] [place] [address], [place] [address] Jan, [facility] [address] [id number] [address] [place] [address], [place] [address] Dec, [facility] [address] [id number] [address] [place] [address], [place] [address] Dec, [facility] [address] [id number] [address] [place] [address], [place] [address] Dec, [facility] [address] [id number] [address] [place] [address], [place] [address] Nov, [facility] [address] [id number] [address] [place] [address], [place] [address] October, [facility] [address] [id number] [address] [place] [address], [place] [address] October, [facility] [address] [id number] [address] [place] [address], [place] [address] October, [facility] [address] [id number] [address] [place] [address], [place] [address] October, [facility] [address] [id number] [facility] [address] October, [facility] [address] [id number] [facility] [address] 30 Sep, 2011 [facility] [address] [id number] [address] [place] [address], [place] [address] 23 Sep, 2011 [facility] [address] [id number] [address] [place] [address], [place] [address] 13 Sep, 2011 [facility] [address] [id number] [address] [place] [address], [place] [address] Sep, [facility] [address] [id number] [address] [place] [address], [place] [address] Sep, [facility] [address] [id number] [address] [place] [address], [place] [address] Sep, [facility] [address] [id number] [address] [place] [address], [place] [address] Sep, [facility] [address] [id number] [address] [place] [address], [place] [address] 28 Aug, 2011 [facility] [address] [id number] [address] [place] [address], [place] [address] 23 Aug, 2011 [facility] [address] [id number] [address] [place] [address], [place] [address] 21 Aug, 2011 [facility] [address] [id number] [address] [place] [address], [place] [address] 21 Aug, 2011 [facility] [address] [id number] [address] [place] [address], [place] [address] 20 Aug, 2011 [facility] [address] [id number] [address] [place] [address], [place] [address] 19 Aug, 2011 [facility] [address] [id number] [address] [place] [address], [place] [address] 16 Aug, 2011 [facility] [address] [id number] [address] [place] [address], [place] [address] 15 Aug, 2011 [facility] [address] [id number] [address] [place] [address], [place] [address] 15 Aug, 2011 [facility] [address] [id number] [address] [place] [address], [place] [address] 14 Aug, 2011 [facility] [address] [id number] [address] [place] [address], [place] [address] 12 Aug, 2011 [facility] [address] [id number] [address] [place] [address], [place] [address] 08 Aug, 2011 [facility] [address] [id number] [address] [place] [address], [place] [address] 15 Jul, 2011 [facility] [address] [id number] [address] [place] [address], [place] [address] 15 Jul, 2011 [facility] [address] [id number] [address] [place] [address], [place] [address] 14 Jul, 2011 [facility] [address] [id number] [address] [place] [address], [place] [address] 06 Jul, 2011 [facility] [address] [id number] [address] [place] [address], [place] [address] 02 Jul, 2011 [facility] [address] [id number] [address] [place] [address], [place] [address] Jun, [facility] [address] [id number] [address] [place] [address], [place] [address] Jun, [facility] [address] [id number] [address] [place] [address], [place] [address] Jun, [facility] [address] [id number] [address] [place] [address], [place] [address] May, [facility] [address] [id number] [address] [place] [address], [place] [address] May, [facility] [address] [id number] [address] [place] [address], [place] [address] May, [facility] [address] [id number] [address] [place] [address], [place] [address] 19 May, 2011 [facility] [address] [id number] [address] [place] [address], [place] [address] 14 May, 2011 [facility] [address] [id number] [address] [place] [address], [place] [address] 16 Apr, 2011 [facility] [address] [id number] [address] [place] [address], [place] [address] 16 Apr, 2011 [facility] [address] [id number] [address] [place] [address], [place] [address] 15 Apr, 2011 [facility] [address] [id number] [address] [place] [address], [place] [address] 14 Apr, 2011 [facility] [address] [id number] [address] [place] [address], [place] [address] 25 Mar, 2011 [facility] [address] [id number] [address] [place] [address], [place] [address] 24 Mar, 2011 [facility] [address] [id number] [address] [place] [address], [place] [address] 19 Mar, 2011 [facility] [address] [id number] [address] [place] [address], [place] [address] 19 Mar, 2011 [facility] [address] [id number] [address] [place] [address], [place] [address] 17 Mar, 2011 [facility] [address] [id number] [address] [place] [address], [place] [address] 17 Mar, 2011 [facility] [address] [id number] [address] [place] [address], [place] [address] 16 Feb, 2011 [facility] [address] [id number] [address] [place] [address], [place] [address] 10 Nov, 2010 [facility] [address] [id number] [address] [place] [address], [place] [address] 17 Aug, 2010 [facility] [address] [id number] [address] [place] [address], [place] [address] 11 Apr, 2010 [facility] [address] [facility] [id number] [address] [place] [address] 16 Mar, 2010 [facility] [address] [facility] [id number] [address] [place] [address] Apr, [facility] [address] [facility] [id number] [address] [place] [phone] 09 Apr, 2009 [facility] [address] [facility] [id number] [address] [place] [phone] 15 Sep, 2008 [facility] [address] [facility] [id number] [address] [place] [phone] 17 Mar, 2008 IMMUNIZATIONS No Known Immunizations [...] ER for Kidney pain/Stones 06/19/18 Hospitalization History [facility] [place] X4 days 9
--- OUTSIDE RECORDS SUMMARY | 2019-12-26 11:06 | XMS REPORT ---
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 [place] [address] Apr, [facility] [address] [id number] [address] [place] [address], [place] [address] Apr, [facility] [address] [id number] [address] [place] [address], [place] [address] Apr, [facility] [address] [id number] [address] [place] [address], [place] [address] Apr, [facility] [address] [id number] [address] [place] [address] Mar, [facility] [address] [id number] [address] [place] [address], [place] [address] Mar, [facility] [address] [id number] [address] [place] [id number] 31 Mar, 2012 [facility] [address] [id number] [address] [place] [address], [place] [address] 31 Mar, 2012 [facility] [address] [id number] [address] [place] [id number] 15 Mar, 2012 [facility] [address] [id number] [address] [place] [address] 15 Mar, 2012 [facility] [address] [id number] [address] [place] [address], [place] [address] Mar, [facility] [address] [id number] [address] [place] [address], [place] [address] Mar, [facility] [address] [id number] [address] [place] [address], [place] [address] Mar, [facility] [address] [id number] [address] [place] [address], [place] [address] Feb, [facility] [address] [id number] [address] [place] [address], [place] [address] Jan, [facility] [address] [id number] [address] [place] [address], [place] [address] Jan, [facility] [address] [id number] [address] [place] [address], [place] [address] Jan, [facility] [address] [id number] [address] [place] [address], [place] [address] Dec, [facility] [address] [id number] [address] [place] [address], [place] [address] Dec, [facility] [address] [id number] [address] [place] [address], [place] [address] Dec, [facility] [address] [id number] [address] [place] [address], [place] [address] Nov, [facility] [address] [id number] [address] [place] [address], [place] [address] October, [facility] [address] [id number] [address] [place] [address], [place] [address] October, [facility] [address] [id number] [address] [place] [address], [place] [address] October, [facility] [address] [id number] [address] [place] [address], [place] [address] October, [facility] [address] [id number] [address] [place] [address], [place] [address] October, [facility] [address] [id number] [facility] [address] 30 Sep, 2011 [facility] [address] [id number] [facility] [address] 23 Sep, 2011 [facility] [address] [id number] [facility] [place] [address] 13 Sep, 2011 [facility] [address] [id number] [address] [place] [address], [place] [address] 12 Sep, 2011 [facility] [address] [id number] [address] [place] [address], [place] [address] 12 Sep, 2011 [facility] [address] [id number] [address] [place] [address], [place] [address] 11 Sep, 2011 [facility] [address] [id number] [address] [place] [address], [place] [address] Sep, [facility] [address] [id number] [address] [place] [address], [place] [address] 28 Aug, 2011 [facility] [address] [id number] [address] [place] [address], [place] [address] 23 Aug, 2011 [facility] [address] [id number] [address] [place] [address], [place] [address] 21 Aug, 2011 [facility] [address] [id number] [address] [place] [address], [place] [address] 21 Aug, 2011 [facility] [address] [id number] [address] [place] [address], [place] [address] 20 Aug, 2011 [facility] [address] [id number] [address] [place] [address], [place] [address] 19 Aug, 2011 [facility] [address] [id number] [address] [place] [address], [place] [address] 16 Aug, 2011 [facility] [address] [id number] [address] [place] [address], [place] [address] 15 Aug, 2011 [facility] [address] [id number] [address] [place] [address], [place] [address] 15 Aug, 2011 [facility] [address] [id number] [address] [place] [address], [place] [address] 14 Aug, 2011 [facility] [address] [id number] [address] [place] [address], [place] [address] 12 Aug, 2011 [facility] [address] [id number] [address] [place] [address], [place] [address] 08 Aug, 2011 [facility] [address] [id number] [address] [place] [address], [place] [address] 15 Jul, 2011 [facility] [address] [id number] [address] [place] [address], [place] [address] 15 Jul, 2011 [facility] [address] [id number] [address] [place] [address], [place] [address] 14 Jul, 2011 [facility] [address] [id number] [address] [place] [address], [place] [address] 06 Jul, 2011 [facility] [address] [id number] [address] [place] [address], [place] [address] Jul, [facility] [address] [id number] [address] [place] [address], [place] [address] Jun, [facility] [address] [id number] [address] [place] [address], [place] [address] Jun, [facility] [address] [id number] [address] [place] [address], [place] [address] Jun, [facility] [address] [id number] [address] [place] [address], [place] [address] May, [facility] [address] [id number] [address] [place] [address], [place] [address] May, [facility] [address] [id number] [address] [place] [address], [place] [address] May, [facility] [address] [id number] [address] [place] [address], [place] [address] May, [facility] [address] [id number] [address] [place] [address], [place] [address] 14 May, 2011 [facility] [address] [id number] [address] [place] [address], [place] [address] 16 Apr, 2011 [facility] [address] [id number] [address] [place] [address], [place] [address] 16 Apr, 2011 [facility] [address] [id number] [address] [place] [address], [place] [address] 15 Apr, 2011 [facility] [address] [id number] [address] [place] [address], [place] [address] 14 Apr, 2011 [facility] [address] [id number] [address] [place] [address], [place] [address] 25 Mar, 2011 [facility] [address] [id number] [address] [place] [address], [place] [address] 24 Mar, 2011 [facility] [address] [id number] [address] [place] [address], [place] [address] 19 Mar, 2011 [facility] [address] [id number] [address] [place] [address], [place] [address] 19 Mar, 2011 [facility] [address] [id number] [address] [place] [address], [place] [address] 17 Mar, 2011 [facility] [address] [id number] [address] [place] [address], [place] [address] 17 Mar, 2011 [facility] [address] [id number] [address] [place] [address], [place] [address] 16 Feb, 2011 [facility] [address] [id number] [address] [place] [address], [place] [address] 10 Nov, 2010 [facility] [address] [id number] [address] [place] [address], [place] [address] 17 Aug, 2010 [facility] [address] [id number] [address] [place] [address], [place] [address] 11 Apr, 2010 [facility] [address] [id number] [address] [place] [address], [place] [address] Mar, [facility] [address] [facility] [id number] [address] [place] [address] Apr, [facility] [address] [facility] [id number] [address] [place] [address] Apr, [facility] [address] [facility] [id number] [address] [place] [id number] Sep, [facility] [address] [facility] [id number] [address] [place] [id number] Mar, IMMUNIZATIONS No Known Immunizations SOCIAL HISTORY Never Assessed REASON FOR VISIT PLAN OF CARE VITAL SIGNS Height 63 in 2014-06-06 Weight 209.44 lbs 2014-06-06 Temperature 97 degrees Fahrenheit 2014-06-06 Heart Rate 80 bpm 2014-06-06 Respiratory Rate 18 2014-06-06 Blood pressure systolic 120 mmHg 2014-06-06 Blood pressure diastolic 70 mmHg 2014-06-06 MEDICATIONS Unknown Medications RESULTS No Results PROCEDURES [...] for Kidney pain/Stones 06/19/18 Hospitalization History [facility] Smarp. [place] X4 days 9
--- OUTSIDE RECORDS SUMMARY | 2019-12-26 11:06 | XMS REPORT ---
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 [address], [place] [address] Apr, [facility] [address] [id number] [address] [place] [address], [place] [address] Apr, [facility] [address] [id number] [address] [place] [address], [place] [address] Apr, [facility] [address] [id number] [address] [place] [address], [place] [address] Apr, [facility] [address] [id number] [address] [place] [address], [place] [address] Apr, [facility] [address] [id number] [address] [place] [address], [place] [address] Apr, [facility] [address] [id number] [address] [place] [address] Apr, [facility] [address] [id number] [address] [place] [address], [place] [address] Mar, [facility] [address] [id number] [address] [place] [address] Mar, [facility] [address] [id number] [address] [place] [address] 31 Mar, 2012 [facility] [address] [id number] [address] [place] [address] 31 Mar, 2012 [facility] [address] [id number] [address] [place] [address] 15 Mar, 2012 [facility] [address] [id number] [address] [place] [address] 15 Mar, 2012 [facility] [address] [id number] [address] [place] [address] 11 Mar, 2012 [facility] [address] [id number] [address] [place] [address] Mar, [facility] [address] [id number] [address] [place] [address], [place] [address] Mar, [facility] [address] [id number] [address] [place] [address], [place] [address] Feb, [facility] [address] [id number] [address] [place] [address], [place] [address] Jan, [facility] [address] [id number] [address] [place] [address], [place] [address] Jan, [facility] [address] [id number] [address] [place] [address], [place] [address] Jan, [facility] [address] [id number] [address] [place] [address], [place] [address] Dec, [facility] [address] [id number] [address] [place] [address], [place] [address] Dec, [facility] [address] [id number] [address] [place] [address], [place] [address] Dec, [facility] [address] [id number] [address] [place] [address], [place] [address] Nov, [facility] [address] [id number] [address] [place] [address], [place] [address] October, [facility] [address] [id number] [address] [place] [address], [place] [address] October, [facility] [address] [id number] [address] [place] [address], [place] [address] October, [facility] [address] [id number] [address] [place] [address], [place] [address] October, [facility] [address] [id number] [address] [place] [address], [place] [address] October, [facility] [address] [id number] [address] [place] [address], [place] [address] Sep, [facility] [address] [id number] [facility] [place] [address] 23 Sep, 2011 [facility] [address] [id number] [facility] [place] [address] 13 Sep, 2011 [facility] [address] [id number] [facility] [place] [address] 12 Sep, 2011 [facility] [address] [id number] [facility] [place] [address] 12 Sep, 2011 [facility] [address] [id number] [facility] [place] [address] 11 Sep, 2011 [facility] [address] [id number] [address] [place] [address], [place] [address] 11 Sep, 2011 [facility] [address] [id number] [address] [place] [address], [place] [address] 28 Aug, 2011 [facility] [address] [id number] [address] [place] [address], [place] [address] 23 Aug, 2011 [facility] [address] [id number] [address] [place] [address], [place] [address] 21 Aug, 2011 [facility] [address] [id number] [address] [place] [address], [place] [address] 21 Aug, 2011 [facility] [address] [id number] [address] [place] [address], [place] [address] 20 Aug, 2011 [facility] [address] [id number] [address] [place] [address], [place] [address] 19 Aug, 2011 [facility] [address] [id number] [address] [place] [address], [place] [address] 16 Aug, 2011 [facility] [address] [id number] [address] [place] [address], [place] [address] 15 Aug, 2011 [facility] [address] [id number] [address] [place] [address], [place] [address] 15 Aug, 2011 [facility] [address] [id number] [address] [place] [address], [place] [address] 14 Aug, 2011 [facility] [address] [id number] [address] [place] [address], [place] [address] Aug, [facility] [address] [id number] [address] [place] [address], [place] [address] 08 Aug, 2011 [facility] [address] [id number] [address] [place] [address], [place] [address] 15 Jul, 2011 [facility] [address] [id number] [address] [place] [address], [place] [address] 15 Jul, 2011 [facility] [address] [id number] [address] [place] [address], [place] [address] 14 Jul, 2011 [facility] [address] [id number] [address] [place] [address], [place] [address] 06 Jul, 2011 [facility] [address] [id number] [address] [place] [address], [place] [address] Jul, [facility] [address] [id number] [address] [place] [address], [place] [address] Jun, [facility] [address] [id number] [address] [place] [address], [place] [address] Jun, [facility] [address] [id number] [address] [place] [address], [place] [address] Jun, [facility] [address] [id number] [address] [place] [address], [place] [address] May, [facility] [address] [id number] [address] [place] [address], [place] [address] May, [facility] [address] [id number] [address] [place] [address], [place] [address] May, [facility] [address] [id number] [address] [place] [address], [place] [address] May, [facility] [address] [id number] [address] [place] [address], [place] [address] May, [facility] [address] [id number] [address] [place] [address], [place] [address] 16 Apr, 2011 [facility] [address] [id number] [address] [place] [address], [place] [address] 16 Apr, 2011 [facility] [address] [id number] [address] [place] [address], [place] [address] 15 Apr, 2011 [facility] [address] [id number] [address] [place] [address], [place] [address] 14 Apr, 2011 [facility] [address] [id number] [address] [place] [address], [place] [address] 25 Mar, 2011 [facility] [address] [id number] [address] [place] [address], [place] [address] 24 Mar, 2011 [facility] [address] [id number] [address] [place] [address], [place] [address] 19 Mar, 2011 [facility] [address] [id number] [address] [place] [address], [place] [address] 19 Mar, 2011 [facility] [address] [id number] [address] [place] [address], [place] [address] 17 Mar, 2011 [facility] [address] [id number] [address] [place] [address], [place] [address] 17 Mar, 2011 [facility] [address] [id number] [address] [place] [address], [place] [address] 16 Feb, 2011 [facility] [address] [id number] [address] [place] [address], [place] [address] 10 Nov, 2010 [facility] [address] [id number] [address] [place] [address], [place] [address] 17 Aug, 2010 [facility] [address] [id number] [address] [place] [address], [place] [address] 11 Apr, 2010 [facility] [address] [id number] [address] [place] [address], [place] [address] 16 Mar, 2010 [facility] [address] [id number] [address] [place] [address], [place] [address] Apr, [facility] [address] [facility] [id number] [address] [place] [address] Apr, [facility] [address] [facility] [id number] [address] [place] [address] Sep, [facility] [address] [facility] [id number] [address] [place] [address] Mar, IMMUNIZATIONS No Known Immunizations SOCIAL HISTORY Never Assessed REASON FOR VISIT PLAN OF CARE VITAL SIGNS Blood pressure systolic 114 mmHg 2014-04-20 Blood pressure diastolic 68 mmHg 2014-04-20 MEDICATIONS Unknown Medications RESULTS No Results PROCEDURES Procedure Date Ordered Result Body Site INJ METHYLPRDNISOLONE ACTAT 80 MG Apr 20, 2014 DRAIN/INJECT, JOINT/BURSA Apr 20, 2014 INSTRUCTIONS MEDICATIONS ADMINISTERED No Known Medications [...] Kidney pain/Stones 06/19/18 Hospitalization History [facility] X4 days 9
--- OUTSIDE RECORDS SUMMARY | 2019-12-26 11:06 | XMS REPORT ---
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 [address], [place] [address] 20 Jul, 2012 [facility] [address] [id number] [address] [place] [address], [place] [address] 15 Jul, 2012 [facility] [address] [id number] [address] [place] [address], [place] [address] 14 Jul, 2012 [facility] [address] [id number] [address] [place] [address], [place] [address] 11 Jul, 2012 [facility] [address] [id number] [address] [place] [address], [place] [address] Jun, [facility] [address] [id number] [address] [place] [address], [place] [address] Jun, [facility] [address] [id number] [address] [place] [address], [place] [address] Jun, [facility] [address] [id number] [address] [place] [address], [place] [address] May, [facility] [address] [id number] [address] [place] [address], [place] [address] May, [facility] [address] [id number] [address] [place] [address], [place] [address] Apr, [facility] [address] [id number] [address] [place] [address], [place] [address] Apr, [facility] [address] [id number] [address] [place] [address], [place] [address] Apr, [facility] [address] [id number] [address] [place] [address], [place] [address] Apr, [facility] [address] [id number] [address] [place] [address], [place] [address] Apr, [facility] [address] [id number] [address] [place] [address], [place] [address] Apr, [facility] [address] [id number] [address] [place] [address], [place] [address] Apr, [facility] [address] [id number] [address] [place] [address], [place] [address] Apr, [facility] [address] [id number] [address] [place] [address], [place] [address] Mar, [facility] [address] [id number] [address] [place] [address] 31 Mar, 2012 [facility] [address] [id number] [address] [place] [address], [place] [address] Mar, [facility] [address] [id number] [address] [place] [address], [place] [address] 31 Mar, 2012 [facility] [address] [id number] [address] [place] [address] 15 Mar, 2012 [facility] [address] [id number] [address] [place] [address] Mar, [facility] [address] [id number] [address] [place] [address], [place] [address] Mar, [facility] [address] [id number] [address] [place] [address], [place] [address] Mar, [facility] [address] [id number] [address] [place] [address], [place] [address] Mar, [facility] [address] [id number] [address] [place] [address], [place] [address] Feb, [facility] [address] [id number] [address] [place] [address], [place] [address] Jan, [facility] [address] [id number] [address] [place] [address], [place] [address] Jan, [facility] [address] [id number] [address] [place] [address], [place] [address] Jan, [facility] [address] [id number] [address] [place] [address], [place] [address] Dec, [facility] [address] [id number] [address] [place] [address], [place] [address] Dec, [facility] [address] [id number] [address] [place] [address], [place] [address] Dec, [facility] [address] [id number] [address] [place] [address], [place] [address] Nov, [facility] [address] [id number] [address] [place] [address], [place] [address] October, [facility] [address] [id number] [address] [place] [address], [place] [address] October, [facility] [address] [id number] [address] [place] [address], [place] [address] October, [facility] [address] [id number] [address] [place] [address], [place] [address] October, [facility] [place] [facility] [address] [id number] [facility] [address] October, [facility] [address] [id number] [facility] [place] [address] 30 Sep, 2011 [facility] [address] [id number] [address] [place] [address], [place] [address] 23 Sep, 2011 [facility] [address] [id number] [address] [place] [address], [place] [address] 13 Sep, 2011 [facility] [address] [id number] [address] [place] [address], [place] [address] Sep, [facility] [address] [id number] [address] [place] [address], [place] [address] Sep, [facility] [address] [id number] [address] [place] [address], [place] [address] Sep, [facility] [address] [id number] [address] [place] [address], [place] [address] Sep, [facility] [address] [id number] [address] [place] [address], [place] [address] 28 Aug, 2011 [facility] [address] [id number] [address] [place] [address], [place] [address] 23 Aug, 2011 [facility] [address] [id number] [address] [place] [address], [place] [address] 21 Aug, 2011 [facility] [address] [id number] [address] [place] [address], [place] [address] 21 Aug, 2011 [facility] [address] [id number] [address] [place] [address], [place] [address] 20 Aug, 2011 [facility] [address] [id number] [address] [place] [address], [place] [address] 19 Aug, 2011 [facility] [address] [id number] [address] [place] [address], [place] [address] 16 Aug, 2011 [facility] [address] [id number] [address] [place] [address], [place] [address] 15 Aug, 2011 [facility] [address] [id number] [address] [place] [address], [place] [address] 15 Aug, 2011 [facility] [address] [id number] [address] [place] [address], [place] [address] 14 Aug, 2011 [facility] [address] [id number] [address] [place] [address], [place] [address] 12 Aug, 2011 [facility] [address] [id number] [address] [place] [address], [place] [address] 08 Aug, 2011 [facility] [address] [id number] [address] [place] [address], [place] [address] 15 Jul, 2011 [facility] [address] [id number] [address] [place] [address], [place] [address] 15 Jul, 2011 [facility] [address] [id number] [address] [place] [address], [place] [address] 14 Jul, 2011 [facility] [address] [id number] [address] [place] [address], [place] [address] 06 Jul, 2011 [facility] [address] [id number] [address] [place] [address], [place] [address] 02 Jul, 2011 [facility] [address] [id number] [address] [place] [address], [place] [address] Jun, [facility] [address] [id number] [address] [place] [address], [place] [address] Jun, [facility] [address] [id number] [address] [place] [address], [place] [address] Jun, [facility] [address] [id number] [address] [place] [address], [place] [address] May, [facility] [address] [id number] [address] [place] [address], [place] [address] May, [facility] [address] [id number] [address] [place] [address], [place] [address] May, [facility] [address] [id number] [address] [place] [address], [place] [address] 19 May, 2011 [facility] [address] [id number] [address] [place] [address], [place] [address] 14 May, 2011 [facility] [address] [id number] [address] [place] [address], [place] [address] 16 Apr, 2011 [facility] [address] [id number] [address] [place] [address], [place] [address] 16 Apr, 2011 [facility] [address] [id number] [address] [place] [address], [place] [address] 15 Apr, 2011 [facility] [address] [id number] [address] [place] [address], [place] [address] 14 Apr, 2011 [facility] [address] [id number] [address] [place] [address], [place] [address] 25 Mar, 2011 [facility] [address] [id number] [address] [place] [address], [place] [address] 24 Mar, 2011 [facility] [address] [id number] [address] [place] [address], [place] [address] 19 Mar, 2011 [facility] [address] [id number] [address] [place] [address], [place] [address] 19 Mar, 2011 [facility] [address] [id number] [address] [place] [address], [place] [address] 17 Mar, 2011 [facility] [address] [id number] [address] [place] [address], [place] [address] 17 Mar, 2011 [facility] [address] [id number] [address] [place] [address], [place] [address] 16 Feb, 2011 [facility] [address] [id number] [address] [place] [address], [place] [address] 10 Nov, 2010 [facility] [address] [id number] [address] [place] [address], [place] [address] 17 Aug, 2010 [facility] [address] [id number] [address] [place] [address], [place] [address] 11 Apr, 2010 [facility] [address] [facility] [id number] [address] [place] [id number] 16 Mar, 2010 [facility] [address] [facility] [id number] [address] [place] [id number] Apr, [facility] [address] [facility] [id number] [address] [place] [id number] 09 Apr, 2009 [facility] [address] [facility] [id number] [address] [place] [id number] 15 Sep, 2008 [facility] [address] [facility] [id number] [address] [place] [id number] 17 Mar, 2008 IMMUNIZATIONS No Known Immunizations [...] ER for Kidney pain/Stones 06/19/18 Hospitalization History [facility] [place] X4 days 9
--- NOTE | 2019-12-26 11:07 | Progress Note-Post Operative ---
Post-Operative Progess Note Surgeon (s)/Hairspring Adjuster (s) Surgeon KALEY EL DO Hairspring Adjuster: none Pre-Operative Diagnosis RUQ pain, melena Post-Operative Diagnosis Esophagitis Gastritis Hiatal hernia Diverticula int hemorrhoids poor prep Procedure & Operative Findings Date of Procedure 12/26/19 Procedure Performed/Findings EGD with bx Colon Anesthesia Type IV sedation by anesthesia Estimated Blood Loss Estimated blood loss (mL): scant Specimens/Packing Specimens Removed antral bx body of stomach bx GE jxn bx KALEY EL DO Dec 26, 2019 11:07
--- OUTSIDE RECORDS SUMMARY | 2019-12-26 11:07 | XMS REPORT ---
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 [address] Apr, [facility] [address] [id number] [address] [place] [address], [place] [address] Apr, [facility] [address] [id number] [address] [place] [address], [place] [address] Apr, [facility] [address] [id number] [address] [place] [address], [place] [address] Apr, [facility] [address] [id number] [address] [place] [address], [place] [address] Apr, [facility] [address] [id number] [address] [place] [address], [place] [address] Apr, [facility] [address] [id number] [address] [place] [address] Apr, [facility] [address] [id number] [address] [place] [address], [place] [address] Mar, [facility] [address] [id number] [address] [place] [address] Mar, [facility] [address] [id number] [address] [place] [address] 31 Mar, 2012 [facility] [address] [id number] [address] [place] [address] 31 Mar, 2012 [facility] [address] [id number] [address] [place] [address] 15 Mar, 2012 [facility] [address] [id number] [address] [place] [address] 15 Mar, 2012 [facility] [address] [id number] [address] [place] [address] 11 Mar, 2012 [facility] [address] [id number] [address] [place] [address] Mar, [facility] [address] [id number] [address] [place] [address], [place] [address] Mar, [facility] [address] [id number] [address] [place] [address], [place] [address] Feb, [facility] [address] [id number] [address] [place] [address], [place] [address] Jan, [facility] [address] [id number] [address] [place] [address], [place] [address] Jan, [facility] [address] [id number] [address] [place] [address], [place] [address] Jan, [facility] [address] [id number] [address] [place] [address], [place] [address] Dec, [facility] [address] [id number] [address] [place] [address], [place] [address] Dec, [facility] [address] [id number] [address] [place] [address], [place] [address] Dec, [facility] [address] [id number] [address] [place] [address], [place] [address] Nov, [facility] [address] [id number] [address] [place] [address], [place] [address] October, [facility] [address] [id number] [address] [place] [address], [place] [address] October, [facility] [address] [id number] [address] [place] [address], [place] [address] October, [facility] [address] [id number] [address] [place] [address], [place] [address] October, [facility] [address] [id number] [address] [place] [address], [place] [address] October, [facility] [address] [id number] [address] [place] [address], [place] [address] Sep, [facility] [address] [id number] [facility] [place] [address] 23 Sep, 2011 [facility] [address] [id number] [facility] [place] [address] 13 Sep, 2011 [facility] [address] [id number] [facility] [place] [address] 12 Sep, 2011 [facility] [address] [id number] [facility] [place] [address] 12 Sep, 2011 [facility] [address] [id number] [facility] [place] [address] 11 Sep, 2011 [facility] [address] [id number] [address] [place] [address], [place] [address] 11 Sep, 2011 [facility] [address] [id number] [address] [place] [address], [place] [address] 28 Aug, 2011 [facility] [address] [id number] [address] [place] [address], [place] [address] 23 Aug, 2011 [facility] [address] [id number] [address] [place] [address], [place] [address] 21 Aug, 2011 [facility] [address] [id number] [address] [place] [address], [place] [address] 21 Aug, 2011 [facility] [address] [id number] [address] [place] [address], [place] [address] 20 Aug, 2011 [facility] [address] [id number] [address] [place] [address], [place] [address] 19 Aug, 2011 [facility] [address] [id number] [address] [place] [address], [place] [address] 16 Aug, 2011 [facility] [address] [id number] [address] [place] [address], [place] [address] 15 Aug, 2011 [facility] [address] [id number] [address] [place] [address], [place] [address] 15 Aug, 2011 [facility] [address] [id number] [address] [place] [address], [place] [address] 14 Aug, 2011 [facility] [address] [id number] [address] [place] [address], [place] [address] Aug, [facility] [address] [id number] [address] [place] [address], [place] [address] 08 Aug, 2011 [facility] [address] [id number] [address] [place] [address], [place] [address] 15 Jul, 2011 [facility] [address] [id number] [address] [place] [address], [place] [address] 15 Jul, 2011 [facility] [address] [id number] [address] [place] [address], [place] [address] 14 Jul, 2011 [facility] [address] [id number] [address] [place] [address], [place] [address] 06 Jul, 2011 [facility] [address] [id number] [address] [place] [address], [place] [address] Jul, [facility] [address] [id number] [address] [place] [address], [place] [address] Jun, [facility] [address] [id number] [address] [place] [address], [place] [address] Jun, [facility] [address] [id number] [address] [place] [address], [place] [address] Jun, [facility] [address] [id number] [address] [place] [address], [place] [address] May, [facility] [address] [id number] [address] [place] [address], [place] [address] May, [facility] [address] [id number] [address] [place] [address], [place] [address] May, [facility] [address] [id number] [address] [place] [address], [place] [address] May, [facility] [address] [id number] [address] [place] [address], [place] [address] May, [facility] [address] [id number] [address] [place] [address], [place] [address] 16 Apr, 2011 [facility] [address] [id number] [address] [place] [address], [place] [address] 16 Apr, 2011 [facility] [address] [id number] [address] [place] [address], [place] [address] 15 Apr, 2011 [facility] [address] [id number] [address] [place] [address], [place] [address] 14 Apr, 2011 [facility] [address] [id number] [address] [place] [address], [place] [address] 25 Mar, 2011 [facility] [address] [id number] [address] [place] [address], [place] [address] 24 Mar, 2011 [facility] [address] [id number] [address] [place] [address], [place] [address] 19 Mar, 2011 [facility] [address] [id number] [address] [place] [address], [place] [address] 19 Mar, 2011 [facility] [address] [id number] [address] [place] [address], [place] [address] 17 Mar, 2011 [facility] [address] [id number] [address] [place] [address], [place] [address] 17 Mar, 2011 [facility] [address] [id number] [address] [place] [address], [place] [address] 16 Feb, 2011 [facility] [address] [id number] [address] [place] [address], [place] [address] 10 Nov, 2010 [facility] [address] [id number] [address] [place] [address], [place] [address] 17 Aug, 2010 [facility] [address] [id number] [address] [place] [address], [place] [id number] 11 Apr, 2010 [facility] [address] [id number] [address] [place] [address], [place] [id number] 16 Mar, 2010 [facility] [address] [id number] [address] [place] [address], [place] [address] Apr, [facility] [address] [facility] [id number] [address] [place] [id number] Apr, [facility] [address] [facility] [id number] [address] [place] [phone] Sep, [facility] [address] [facility] [id number] [address] [place] [phone] 17 Mar, 2008 IMMUNIZATIONS No Known Immunizations [...]
--- OUTSIDE RECORDS SUMMARY | 2019-12-26 11:07 | XMS REPORT ---
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 [address] [id number] [address] [place] [address], [place] [address] Apr, [facility] [address] [id number] [address] [place] [address], [place] [address] Apr, [facility] [address] [id number] [address] [place] [address], [place] [address] Apr, [facility] [address] [id number] [address] [place] [address], [place] [address] Apr, [facility] [address] [id number] [address] [place] [address], [place] [address] Apr, [facility] [address] [id number] [address] [place] [address], [place] [address] Mar, [facility] [address] [id number] [address] [place] [address], [place] [address] 31 Mar, 2012 [facility] [address] [id number] [address] [place] [address], [place] [address] 31 Mar, 2012 [facility] [address] [id number] [address] [place] [address], [place] [address] 31 Mar, 2012 [facility] [address] [id number] [address] [place] [address], [place] [address] 15 Mar, 2012 [facility] [address] [id number] [address] [place] [address], [place] [address] 15 Mar, 2012 [facility] [address] [id number] [address] [place] [address], [place] [address] Mar, [facility] [address] [id number] [address] [place] [address], [place] [address] Mar, [facility] [address] [id number] [address] [place] [address], [place] [address] Mar, [facility] [address] [id number] [address] [place] [address], [place] [address] Feb, [facility] [address] [id number] [address] [place] [address], [place] [address] Jan, [facility] [address] [id number] [address] [place] [address], [place] [address] Jan, [facility] [address] [id number] [address] [place] [address], [place] [address] Jan, [facility] [address] [id number] [address] [place] [address], [place] [address] Dec, [facility] [address] [id number] [address] [place] [address], [place] [address] Dec, [facility] [address] [id number] [address] [place] [address], [place] [address] Dec, [facility] [address] [id number] [address] [place] [address], [place] [address] Nov, [facility] [address] [id number] [address] [place] [address], [place] [address] October, [facility] [address] [id number] [address] [place] [address], [place] [address] October, [facility] [address] [id number] [address] [place] [address], [place] [address] October, [facility] [address] [id number] [address] [place] [address], [place] [address] October, [facility] [address] [id number] [address] [place] [address], [place] [address] October, [facility] [address] [id number] [address] [place] [address], [place] [address] 30 Sep, 2011 [facility] [address] [id number] [address] [place] [address], [place] [address] 23 Sep, 2011 [facility] [address] [id number] [address] [place] [address], [place] [address] 13 Sep, 2011 [facility] [address] [id number] [address] [place] [address], [place] [address] 12 Sep, 2011 [facility] [address] [id number] [address] [place] [address], [place] [address] 12 Sep, 2011 [facility] [address] [id number] [address] [place] [address], [place] [address] 11 Sep, 2011 [facility] [address] [id number] [address] [place] [address], [place] [address] 11 Sep, 2011 [facility] [address] [id number] [address] [place] [address], [place] [address] 28 Aug, 2011 [facility] [address] [id number] [address] [place] [address], [place] [address] 23 Aug, 2011 [facility] [address] [id number] [address] [place] [address], [place] [address] 21 Aug, 2011 [facility] [address] [id number] [address] [place] [address], [place] [address] 21 Aug, 2011 [facility] [address] [id number] [address] [place] [address], [place] [address] 20 Aug, 2011 [facility] [address] [id number] [address] [place] [address], [place] [address] 19 Aug, 2011 [facility] [address] [id number] [address] [place] [address], [place] [address] 16 Aug, 2011 [facility] [address] [id number] [address] [place] [address], [place] [address] 15 Aug, 2011 [facility] [address] [id number] [address] [place] [address], [place] [address] 15 Aug, 2011 [facility] [address] [id number] [address] [place] [address], [place] [address] 14 Aug, 2011 [facility] [address] [id number] [address] [place] [address], [place] [address] Aug, [facility] [address] [id number] [address] [place] [address], [place] [address] 08 Aug, 2011 [facility] [address] [id number] [address] [place] [address], [place] [address] 15 Jul, 2011 [facility] [address] [id number] [address] [place] [address], [place] [address] 15 Jul, 2011 [facility] [address] [id number] [address] [place] [address], [place] [address] 14 Jul, 2011 [facility] [address] [id number] [address] [place] [address], [place] [address] 06 Jul, 2011 [facility] [address] [id number] [address] [place] [address], [place] [address] Jul, [facility] [address] [id number] [address] [place] [address], [place] [address] Jun, [facility] [address] [id number] [address] [place] [address], [place] [address] Jun, [facility] [address] [id number] [address] [place] [address], [place] [address] Jun, [facility] [address] [id number] [address] [place] [address], [place] [address] May, [facility] [address] [id number] [address] [place] [address], [place] [address] May, [facility] [address] [id number] [address] [place] [address], [place] [address] May, [facility] [address] [id number] [address] [place] [address], [place] [address] May, [facility] [address] [id number] [address] [place] [address] 14 May, 2011 [facility] [address] [id number] [address] [place] [address], [place] [address] 16 Apr, 2011 [facility] [address] [id number] [address] [place] [address] 16 Apr, 2011 [facility] [address] [id number] [address] [place] [address], [place] [address] 15 Apr, 2011 [facility] [address] [id number] [address] [place] [address] 14 Apr, 2011 [facility] [address] [id number] [address] [place] [address], [place] [address] 25 Mar, 2011 [facility] [address] [id number] [address] [place] [address], [place] [address] 24 Mar, 2011 [facility] [address] [id number] [address] [place] [address] 19 Mar, 2011 [facility] [address] [id number] [address] [place] [address], [place] [address] 19 Mar, 2011 [facility] [address] [id number] [address] [place] [address] 17 Mar, 2011 [facility] [address] [id number] [address] [place] [address] 17 Mar, 2011 [facility] [address] [id number] [address] [place] [address] 16 Feb, 2011 [facility] [address] [id number] [address] [place] [address] 10 Nov, 2010 [facility] [address] [id number] [address] [place] [address] 17 Aug, 2010 [facility] [address] [id number] [address] [place] [address] 11 Apr, 2010 [facility] [address] [id number] [address] [place] [address] 16 Mar, 2010 [facility] [address] [facility] [id number] [address] [place] [address] Apr, [facility] [address] [facility] [id number] [address] [place] [address] Apr, [facility] [address] [facility] [id number] [address] [place] [address] Sep, [facility] [address] [facility] [id number] [address] [place] [address] Mar, IMMUNIZATIONS No Known Immunizations SOCIAL HISTORY Never Assessed REASON FOR VISIT PLAN OF CARE VITAL SIGNS Height 63 in 2014-08-02 Weight 212 lbs 2014-08-02 Temperature 98.5 degrees Fahrenheit 2014-08-02 Heart Rate 80 bpm 2014-08-02 Respiratory Rate 18 2014-08-02 Blood pressure systolic 130 mmHg 2014-08-02 Blood pressure diastolic 60 mmHg 2014-08-02 MEDICATIONS Unknown Medications RESULTS No Results PROCEDURES [...] ER for Kidney pain/Stones 06/19/18 Hospitalization History [facility] [place] X4 days 9
--- NOTE | 2019-12-26 11:08 | Endoscopy Discharge Instruct ---
Endo Procedure/Findings Findings 1.: Hiatal Hernia, Gastritis, Other Findings (Esophagitis) 2.: Diverticulosis 3.: Internal Hemorrhoids Discharge Instructions - Activity: You might feel a little sleepy until tomorrow. This is due to the medicine you received to relax you. Until tomorrow, you should: NOT drive a car, operate machinery or power tools. NOT drink any alcoholic beverages. NOT make any important decisions or sign importortant papers. Do not return to work until tomorrow, unless otherwise instructed. Resume previous activities tomorrow. Diet: Start by taking liquids. If you tolerate liquids, advance to solid food. 1.: Colonoscopy in 1 year, EGD in 3 years Notify Physician - If you experience excessive bleeding, unusual abdominal pain, fever, or chest pain, contact your doctor immediately. KALEY EL DO Dec 26, 2019 11:08
--- OUTSIDE RECORDS SUMMARY | 2019-12-26 11:08 | XMS REPORT ---
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 [address] [place] [address], [place] [address] Apr, [facility] [address] [id number] [address] [place] [address], [place] [address] Apr, [facility] [address] [id number] [address] [place] [address], [place] [address] Apr, [facility] [address] [id number] [address] [place] [address], [place] [address] Apr, [facility] [address] [id number] [address] [place] [address], [place] [address] Apr, [facility] [address] [id number] [address] [place] [address], [place] [address] Apr, [facility] [address] [id number] [address] [place] [address] Apr, [facility] [address] [id number] [address] [place] [address], [place] [address] Mar, [facility] [address] [id number] [address] [place] [address] Mar, [facility] [address] [id number] [address] [place] [address] 31 Mar, 2012 [facility] [address] [id number] [address] [place] [address] 31 Mar, 2012 [facility] [address] [id number] [address] [place] [address] 15 Mar, 2012 [facility] [address] [id number] [address] [place] [address] 15 Mar, 2012 [facility] [address] [id number] [address] [place] [address] 11 Mar, 2012 [facility] [address] [id number] [address] [place] [address] Mar, [facility] [address] [id number] [address] [place] [address], [place] [address] Mar, [facility] [address] [id number] [address] [place] [address], [place] [address] Feb, [facility] [address] [id number] [address] [place] [address], [place] [address] Jan, [facility] [address] [id number] [address] [place] [address], [place] [address] Jan, [facility] [address] [id number] [address] [place] [address], [place] [address] Jan, [facility] [address] [id number] [address] [place] [address], [place] [address] Dec, [facility] [address] [id number] [address] [place] [address], [place] [address] Dec, [facility] [address] [id number] [address] [place] [address], [place] [address] Dec, [facility] [address] [id number] [address] [place] [address], [place] [address] Nov, [facility] [address] [id number] [address] [place] [address], [place] [address] October, [facility] [address] [id number] [address] [place] [address], [place] [address] October, [facility] [address] [id number] [address] [place] [address], [place] [address] October, [facility] [address] [id number] [address] [place] [address], [place] [address] October, [facility] [address] [id number] [address] [place] [address], [place] [address] October, [facility] [address] [id number] [address] [place] [address], [place] [address] Sep, [facility] [address] [id number] [facility] [place] [address] 23 Sep, 2011 [facility] [address] [id number] [facility] [place] [address] 13 Sep, 2011 [facility] [address] [id number] [facility] [place] [address] 12 Sep, 2011 [facility] [address] [id number] [facility] [place] [address] 12 Sep, 2011 [facility] [address] [id number] [facility] [place] [address] 11 Sep, 2011 [facility] [address] [id number] [address] [place] [address], [place] [address] 11 Sep, 2011 [facility] [address] [id number] [address] [place] [address], [place] [address] 28 Aug, 2011 [facility] [address] [id number] [address] [place] [address], [place] [address] 23 Aug, 2011 [facility] [address] [id number] [address] [place] [address], [place] [address] 21 Aug, 2011 [facility] [address] [id number] [address] [place] [address], [place] [address] 21 Aug, 2011 [facility] [address] [id number] [address] [place] [address], [place] [address] 20 Aug, 2011 [facility] [address] [id number] [address] [place] [address], [place] [address] 19 Aug, 2011 [facility] [address] [id number] [address] [place] [address], [place] [address] 16 Aug, 2011 [facility] [address] [id number] [address] [place] [address], [place] [address] 15 Aug, 2011 [facility] [address] [id number] [address] [place] [address], [place] [address] 15 Aug, 2011 [facility] [address] [id number] [address] [place] [address], [place] [address] 14 Aug, 2011 [facility] [address] [id number] [address] [place] [address], [place] [address] Aug, [facility] [address] [id number] [address] [place] [address], [place] [address] 08 Aug, 2011 [facility] [address] [id number] [address] [place] [address], [place] [address] 15 Jul, 2011 [facility] [address] [id number] [address] [place] [address], [place] [address] 15 Jul, 2011 [facility] [address] [id number] [address] [place] [address], [place] [address] 14 Jul, 2011 [facility] [address] [id number] [address] [place] [address], [place] [address] 06 Jul, 2011 [facility] [address] [id number] [address] [place] [address], [place] [address] Jul, [facility] [address] [id number] [address] [place] [address], [place] [address] Jun, [facility] [address] [id number] [address] [place] [address], [place] [address] Jun, [facility] [address] [id number] [address] [place] [address], [place] [address] Jun, [facility] [address] [id number] [address] [place] [address], [place] [address] May, [facility] [address] [id number] [address] [place] [address], [place] [address] May, [facility] [address] [id number] [address] [place] [address], [place] [address] May, [facility] [address] [id number] [address] [place] [address], [place] [address] May, [facility] [address] [id number] [address] [place] [address], [place] [address] May, [facility] [address] [id number] [address] [place] [address], [place] [address] 16 Apr, 2011 [facility] [address] [id number] [address] [place] [address], [place] [address] 16 Apr, 2011 [facility] [address] [id number] [address] [place] [address], [place] [address] 15 Apr, 2011 [facility] [address] [id number] [address] [place] [address], [place] [address] 14 Apr, 2011 [facility] [address] [id number] [address] [place] [address], [place] [address] 25 Mar, 2011 [facility] [address] [id number] [address] [place] [address], [place] [address] 24 Mar, 2011 [facility] [address] [id number] [address] [place] [address], [place] [address] 19 Mar, 2011 [facility] [address] [id number] [address] [place] [address], [place] [address] 19 Mar, 2011 [facility] [address] [id number] [address] [place] [address], [place] [address] 17 Mar, 2011 [facility] [address] [id number] [address] [place] [address], [place] [id number] 17 Mar, 2011 [facility] [address] [id number] [address] [place] [address], [place] [address] 16 Feb, 2011 [facility] [address] [id number] [address] [place] [address], [place] [address] 10 Nov, 2010 [facility] [address] [id number] [address] [place] [address], [place] [address] 17 Aug, 2010 [facility] [address] [id number] [address] [place] [address], [place] [address] 11 Apr, 2010 [facility] [address] [id number] [address] [place] [address], [place] [address] 16 Mar, 2010 [facility] [address] [id number] [address] [place] [address], [place] [address] Apr, [facility] [address] [facility] [id number] [address] [place] [id number] Apr, [facility] [address] [facility] [id number] [address] [place] [id number] Sep, [facility] [address] [facility] [id number] [address] [place] [id number] 17 Mar, 2008 IMMUNIZATIONS No Known Immunizations [...] ER for Kidney pain/Stones 06/19/18 Hospitalization History [facility] X4 days 9
--- OUTSIDE RECORDS SUMMARY | 2019-12-26 11:08 | XMS REPORT ---
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 [facility] [address] [id number] [address] [place] [address], [place] [address] Apr, [facility] [address] [id number] [address] [place] [address], [place] [address] Apr, [facility] [address] [id number] [address] [place] [address], [place] [address] Mar, [facility] [address] [id number] [address] [place] [address], [place] [address] Mar, [facility] [address] [id number] [address] [place] [address], [place] [address] 31 Mar, 2012 [facility] [address] [id number] [address] [place] [address], [place] [address] 31 Mar, 2012 [facility] [address] [id number] [address] [place] [address], [place] [address] 15 Mar, 2012 [facility] [address] [id number] [address] [place] [address], [place] [address] 15 Mar, 2012 [facility] [address] [id number] [address] [place] [id number] Mar, [facility] [address] [id number] [address] [place] [address], [place] [address] Mar, [facility] [address] [id number] [address] [place] [address], [place] [address] Mar, [facility] [address] [id number] [address] [place] [address], [place] [address] Feb, [facility] [address] [id number] [address] [place] [address], [place] [address] Jan, [facility] [address] [id number] [address] [place] [address], [place] [address] Jan, [facility] [address] [id number] [address] [place] [address], [place] [address] Jan, [facility] [address] [id number] [address] [place] [address], [place] [address] Dec, [facility] [address] [id number] [address] [place] [address], [place] [address] Dec, [facility] [address] [id number] [address] [place] [address], [place] [address] Dec, [facility] [address] [id number] [address] [place] [address], [place] [address] Nov, [facility] [address] [id number] [address] [place] [address], [place] [address] October, [facility] [address] [id number] [address] [place] [address], [place] [address] October, [facility] [address] [id number] [address] [place] [address], [place] [address] October, [facility] [address] [id number] [address] [place] [address], [place] [address] October, [facility] [address] [id number] [address] [place] [address], [place] [address] October, [facility] [address] [id number] [facility] [address] 30 Sep, 2011 [facility] [address] [id number] [address] [place] [address], [place] [address] 23 Sep, 2011 [facility] [address] [id number] [address] [place] [address], [place] [address] 13 Sep, 2011 [facility] [address] [id number] [address] [place] [address], [place] [address] 12 Sep, 2011 [facility] [address] [id number] [address] [place] [address], [place] [address] 12 Sep, 2011 [facility] [address] [id number] [address] [place] [address], [place] [address] 11 Sep, 2011 [facility] [address] [id number] [address] [place] [address], [place] [address] 11 Sep, 2011 [facility] [address] [id number] [address] [place] [address], [place] [address] 28 Aug, 2011 [facility] [address] [id number] [address] [place] [address], [place] [address] 23 Aug, 2011 [facility] [address] [id number] [address] [place] [address], [place] [address] 21 Aug, 2011 [facility] [address] [id number] [address] [place] [address], [place] [address] 21 Aug, 2011 [facility] [address] [id number] [address] [place] [address], [place] [address] 20 Aug, 2011 [facility] [address] [id number] [address] [place] [address], [place] [address] 19 Aug, 2011 [facility] [address] [id number] [address] [place] [address], [place] [address] 16 Aug, 2011 [facility] [address] [id number] [address] [place] [address], [place] [address] 15 Aug, 2011 [facility] [address] [id number] [address] [place] [address], [place] [address] 15 Aug, 2011 [facility] [address] [id number] [address] [place] [address], [place] [address] 14 Aug, 2011 [facility] [address] [id number] [address] [place] [address], [place] [address] 12 Aug, 2011 [facility] [address] [id number] [address] [place] [address], [place] [address] 08 Aug, 2011 [facility] [address] [id number] [address] [place] [address], [place] [address] 15 Jul, 2011 [facility] [address] [id number] [address] [place] [address], [place] [address] 15 Jul, 2011 [facility] [address] [id number] [address] [place] [address], [place] [address] 14 Jul, 2011 [facility] [address] [id number] [address] [place] [address], [place] [address] 06 Jul, 2011 [facility] [address] [id number] [address] [place] [address], [place] [address] 02 Jul, 2011 [facility] [address] [id number] [address] [place] [address], [place] [address] Jun, [facility] [address] [id number] [address] [place] [address], [place] [address] Jun, [facility] [address] [id number] [address] [place] [address], [place] [address] Jun, [facility] [address] [id number] [address] [place] [address], [place] [address] May, [facility] [address] [id number] [address] [place] [address], [place] [address] May, [facility] [address] [id number] [address] [place] [address], [place] [address] May, [facility] [address] [id number] [address] [place] [address], [place] [address] May, [facility] [address] [id number] [address] [place] [address], [place] [address] 14 May, 2011 [facility] [address] [id number] [address] [place] [address], [place] [address] 16 Apr, 2011 [facility] [address] [id number] [address] [place] [address], [place] [address] 16 Apr, 2011 [facility] [address] [id number] [address] [place] [address], [place] [address] 15 Apr, 2011 [facility] [address] [id number] [address] [place] [address], [place] [address] 14 Apr, 2011 [facility] [address] [id number] [address] [place] [address], [place] [address] 25 Mar, 2011 [facility] [address] [id number] [address] [place] [address], [place] [address] 24 Mar, 2011 [facility] [address] [id number] [address] [place] [address], [place] [address] 19 Mar, 2011 [facility] [address] [id number] [address] [place] [address], [place] [address] 19 Mar, 2011 [facility] [address] [id number] [address] [place] [address], [place] [address] 17 Mar, 2011 [facility] [address] [id number] [address] [place] [address], [place] [address] 17 Mar, 2011 [facility] [address] [id number] [address] [place] [address], [place] [address] 16 Feb, 2011 [facility] [address] [id number] [address] [place] [id number] 10 Nov, 2010 [facility] [address] [id number] [address] [place] [address], [place] [address] 17 Aug, 2010 [facility] [address] [id number] [address] [place] [address], [place] [address] 11 Apr, 2010 [facility] [address] [id number] [address] [place] [id number] 16 Mar, 2010 [facility] [address] [facility] [id number] [address] [place] [id number] Apr, [facility] [address] [facility] [id number] [address] [place] [id number] Apr, [facility] [address] [facility] [id number] [address] [place] [id number] Sep, [facility] [address] [facility] [id number] [address] [place] [id number] 17 Mar, 2008 IMMUNIZATIONS No Known Immunizations [...] for Kidney pain/Stones 06/19/18 Hospitalization History [facility] X4 days 9
--- OUTSIDE RECORDS SUMMARY | 2019-12-26 11:08 | XMS REPORT ---
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 [id number] [address] [place] [address], [place] [address] Apr, [facility] [address] [id number] [address] [place] [address], [place] [address] Apr, [facility] [address] [id number] [address] [place] [address], [place] [address] Apr, [facility] [address] [id number] [address] [place] [address], [place] [address] Mar, [facility] [address] [id number] [address] [place] [address], [place] [address] 31 Mar, 2012 [facility] [address] [id number] [address] [place] [address], [place] [address] 31 Mar, 2012 [facility] [address] [id number] [address] [place] [address], [place] [address] 31 Mar, 2012 [facility] [address] [id number] [address] [place] [address], [place] [address] 15 Mar, 2012 [facility] [address] [id number] [address] [place] [address], [place] [address] 15 Mar, 2012 [facility] [address] [id number] [address] [place] [address], [place] [address] Mar, [facility] [address] [id number] [address] [place] [address], [place] [address] Mar, [facility] [address] [id number] [address] [place] [address], [place] [address] Mar, [facility] [address] [id number] [address] [place] [address], [place] [address] Feb, [facility] [address] [id number] [address] [place] [address], [place] [address] Jan, [facility] [address] [id number] [address] [place] [address], [place] [address] Jan, [facility] [address] [id number] [address] [place] [address], [place] [address] Jan, [facility] [address] [id number] [address] [place] [address], [place] [address] Dec, [facility] [address] [id number] [address] [place] [address], [place] [address] Dec, [facility] [address] [id number] [address] [place] [address], [place] [address] Dec, [facility] [address] [id number] [address] [place] [address], [place] [address] Nov, [facility] [address] [id number] [address] [place] [address], [place] [address] October, [facility] [address] [id number] [address] [place] [address], [place] [address] October, [facility] [address] [id number] [address] [place] [address], [place] [address] October, [facility] [address] [id number] [address] [place] [address], [place] [address] October, [facility] [address] [id number] [address] [place] [address], [place] [address] October, [facility] [address] [id number] [address] [place] [address], [place] [address] 30 Sep, 2011 [facility] [address] [id number] [address] [place] [address], [place] [address] 23 Sep, 2011 [facility] [address] [id number] [address] [place] [address], [place] [address] 13 Sep, 2011 [facility] [address] [id number] [address] [place] [address], [place] [address] 12 Sep, 2011 [facility] [address] [id number] [address] [place] [address], [place] [address] 12 Sep, 2011 [facility] [address] [id number] [address] [place] [address], [place] [address] 11 Sep, 2011 [facility] [address] [id number] [address] [place] [address], [place] [address] 11 Sep, [address] [facility] [address] [id number] [address] [place] [address], [place] [address] 28 Aug, 2011 [facility] [address] [id number] [address] [place] [address], [place] [address] 23 Aug, 2011 [facility] [address] [id number] [address] [place] [address], [place] [address] 21 Aug, 2011 [facility] [address] [id number] [address] [place] [address], [place] [address] 21 Aug, 2011 [facility] [address] [id number] [address] [place] [address], [place] [address] 20 Aug, 2011 [facility] [address] [id number] [address] [place] [address], [place] [address] 19 Aug, 2011 [facility] [address] [id number] [address] [place] [address], [place] [address] 16 Aug, 2011 [facility] [address] [id number] [address] [place] [address], [place] [address] 15 Aug, 2011 [facility] [address] [id number] [address] [place] [address], [place] [address] 15 Aug, 2011 [facility] [address] [id number] [address] [place] [address], [place] [address] 14 Aug, 2011 [facility] [address] [id number] [address] [place] [address], [place] [address] Aug, [facility] [address] [id number] [address] [place] [address], [place] [address] 08 Aug, 2011 [facility] [address] [id number] [address] [place] [address], [place] [address] 15 Jul, 2011 [facility] [address] [id number] [address] [place] [address], [place] [address] 15 Jul, 2011 [facility] [address] [id number] [address] [place] [address], [place] [address] 14 Jul, 2011 [facility] [address] [id number] [address] [place] [address], [place] [address] 06 Jul, 2011 [facility] [address] [id number] [address] [place] [address], [place] [address] Jul, [facility] [address] [id number] [address] [place] [address], [place] [address] Jun, [facility] [address] [id number] [address] [place] [address], [place] [address] Jun, [facility] [address] [id number] [address] [place] [address], [place] [address] Jun, [facility] [address] [id number] [address] [place] [address], [place] [address] May, [facility] [address] [id number] [address] [place] [address], [place] [address] May, [facility] [address] [id number] [address] [place] [address], [place] [address] May, [facility] [address] [id number] [address] [place] [address], [place] [address] May, [facility] [address] [id number] [address] [place] [address] 14 May, 2011 [facility] [address] [id number] [address] [place] [address], [place] [address] 16 Apr, 2011 [facility] [address] [id number] [address] [place] [id number] 16 Apr, 2011 [facility] [address] [id number] [address] [place] [address], [place] [address] 15 Apr, 2011 [facility] [address] [id number] [address] [place] [id number] 14 Apr, 2011 [facility] [address] [id number] [address] [place] [address], [place] [address] 25 Mar, 2011 [facility] [address] [id number] [address] [place] [address], [place] [address] 24 Mar, 2011 [facility] [address] [id number] [address] [place] [id number] 19 Mar, 2011 [facility] [address] [id number] [address] [place] [address], [place] [address] 19 Mar, 2011 [facility] [address] [id number] [address] [place] [id number] 17 Mar, 2011 [facility] [address] [id number] [address] [place] [id number] 17 Mar, 2011 [facility] [address] [id number] [address] [place] [id number] 16 Feb, 2011 [facility] [address] [id number] [address] [place] [id number] 10 Nov, 2010 [facility] [address] [id number] [address] [place] [id number] 17 Aug, 2010 [facility] [address] [id number] [address] [place] [id number] 11 Apr, 2010 [facility] [address] [id number] [address] [place] [id number] 16 Mar, 2010 [facility] [address] [facility] [id number] [address] [place] [address] Apr, [facility] [address] [facility] [id number] [address] [place] [id number] Apr, [facility] [address] [facility] [id number] [address] [place] [id number] Sep, [facility] [address] [facility] [id number] [address] [place] [id number] Mar, IMMUNIZATIONS No Known Immunizations SOCIAL HISTORY [...]
--- OUTSIDE RECORDS SUMMARY | 2019-12-26 11:09 | XMS REPORT ---
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 [address] May, [facility] [address] [id number] [address] [place] [address], [place] [address] Apr, [facility] [address] [id number] [address] [place] [address], [place] [address] Apr, [facility] [address] [id number] [address] [place] [address], [place] [address] Apr, [facility] [address] [id number] [address] [place] [address], [place] [address] Apr, [facility] [address] [id number] [address] [place] [address], [place] [address] Apr, [facility] [address] [id number] [address] [place] [address], [place] [address] Apr, [facility] [address] [id number] [address] [place] [address], [place] [address] Apr, [facility] [address] [id number] [address] [place] [address], [place] [address] Apr, [facility] [address] [id number] [address] [place] [address], [place] [address] Mar, [facility] [address] [id number] [address] [place] [address], [place] [address] 31 Mar, 2012 [facility] [address] [id number] [address] [place] [address], [place] [address] 31 Mar, 2012 [facility] [address] [id number] [address] [place] [address], [place] [address] 31 Mar, 2012 [facility] [address] [id number] [address] [place] [address], [place] [address] 15 Mar, 2012 [facility] [address] [id number] [address] [place] [address], [place] [address] 15 Mar, 2012 [facility] [address] [id number] [address] [place] [address], [place] [address] 11 Mar, 2012 [facility] [address] [id number] [address] [place] [address], [place] [address] Mar, [facility] [address] [id number] [address] [place] [address], [place] [address] Mar, [facility] [address] [id number] [address] [place] [address], [place] [address] Feb, [facility] [address] [id number] [address] [place] [address], [place] [address] Jan, [facility] [address] [id number] [address] [place] [address], [place] [address] Jan, [facility] [address] [id number] [address] [place] [address], [place] [address] Jan, [facility] [address] [id number] [address] [place] [address], [place] [address] Dec, [facility] [address] [id number] [address] [place] [address], [place] [address] Dec, [facility] [address] [id number] [address] [place] [address], [place] [address] Dec, [facility] [address] [id number] [address] [place] [address], [place] [address] Nov, [facility] [address] [id number] [address] [place] [address], [place] [address] October, [facility] [address] [id number] [address] [place] [address], [place] [address] October, [facility] [address] [id number] [address] [place] [address], [place] [address] October, [facility] [address] [id number] [address] [place] [address], [place] [address] October, [facility] [address] [id number] [address] [place] [address], [place] [address] October, [facility] [address] [id number] [address] [place] [address], [place] [address] Sep, [facility] [address] [id number] [address] [place] [address], [place] [address] 23 Sep, 2011 [facility] [address] [id number] [address] [place] [address], [place] [address] 13 Sep, 2011 [facility] [address] [id number] [address] [place] [address], [place] [address] 12 Sep, 2011 [facility] [address] [id number] [address] [place] [address], [place] [address] 12 Sep, 2011 [facility] [address] [id number] [address] [place] [address], [place] [address] 11 Sep, 2011 [facility] [address] [id number] [address] [place] [address], [place] [address] 11 Sep, 2011 [facility] [address] [id number] [address] [place] [address], [place] [address] 28 Aug, 2011 [facility] [address] [id number] [address] [place] [address], [place] [address] 23 Aug, 2011 [facility] [address] [id number] [address] [place] [address], [place] [address] 21 Aug, 2011 [facility] [address] [id number] [address] [place] [address], [place] [address] 21 Aug, 2011 [facility] [address] [id number] [address] [place] [address], [place] [address] 20 Aug, 2011 [facility] [address] [id number] [address] [place] [address], [place] [address] 19 Aug, 2011 [facility] [address] [id number] [address] [place] [address], [place] [address] 16 Aug, 2011 [facility] [address] [id number] [address] [place] [address], [place] [address] 15 Aug, 2011 [facility] [address] [id number] [address] [place] [address], [place] [address] 15 Aug, 2011 [facility] [address] [id number] [address] [place] [address], [place] [address] 14 Aug, 2011 [facility] [address] [id number] [address] [place] [address], [place] [address] Aug, [facility] [address] [id number] [address] [place] [address], [place] [address] Aug, [facility] [address] [id number] [address] [place] [address], [place] [address] 15 Jul, 2011 [facility] [address] [id number] [address] [place] [address], [place] [address] 15 Jul, 2011 [facility] [address] [id number] [address] [place] [address], [place] [address] 14 Jul, 2011 [facility] [address] [id number] [address] [place] [address], [place] [address] 06 Jul, 2011 [facility] [address] [id number] [address] [place] [address], [place] [address] Jul, [facility] [address] [id number] [address] [place] [address], [place] [address] Jun, [facility] [address] [id number] [address] [place] [address], [place] [address] Jun, [facility] [address] [id number] [address] [place] [address], [place] [address] Jun, [facility] [address] [id number] [address] [place] [address], [place] [address] May, [facility] [address] [id number] [address] [place] [address], [place] [address] May, [facility] [address] [id number] [address] [place] [address], [place] [address] May, [facility] [address] [id number] [address] [place] [address], [place] [address] May, [facility] [address] [id number] [address] [place] [address], [place] [address] 14 May, 2011 [facility] [address] [id number] [address] [place] [id number] 16 Apr, 2011 [facility] [address] [id number] [address] [place] [address], [place] [address] 16 Apr, 2011 [facility] [address] [id number] [address] [place] [id number] 15 Apr, 2011 [facility] [address] [id number] [address] [place] [address], [place] [address] 14 Apr, 2011 [facility] [address] [id number] [address] [place] [address], [place] [address] 25 Mar, 2011 [facility] [address] [id number] [address] [place] [address], [place] [address] 24 Mar, 2011 [facility] [address] [id number] [address] [place] [address], [place] [address] 19 Mar, 2011 [facility] [address] [id number] [address] [place] [address], [place] [address] 19 Mar, 2011 [facility] [address] [id number] [address] [place] [address], [place] [address] 17 Mar, 2011 [facility] [address] [id number] [address] [place] [id number] 17 Mar, 2011 [facility] [address] [id number] [address] [place] [address], [place] [address] 16 Feb, 2011 [facility] [address] [id number] [address] [place] [id number] Nov, [facility] [address] [id number] [address] [place] [address], [place] [address] 17 Aug, 2010 [facility] [address] [id number] [address] [place] [id number] 11 Apr, 2010 [facility] [address] [id number] [address] [place] [address], [place] [address] 16 Mar, 2010 [facility] [address] [id number] [address] [place] [address], [place] [address] 21 Apr, 2009 [facility] [address] [id number] [address] [place] [id number] 09 Apr, 2009 [facility] [address] [facility] [id number] [address] [place] [id number] 15 Sep, 2008 [facility] [address] [facility] [id number] [address] [place] [id number] Mar, IMMUNIZATIONS No Known Immunizations SOCIAL HISTORY Never Assessed REASON FOR VISIT PLAN OF CARE VITAL SIGNS Height 63 in 2014-08-23 Weight 212.99 lbs 2014-08-23 Temperature 97.1 degrees Fahrenheit 2014-08-23 Heart Rate 80 bpm 2014-08-23 Respiratory Rate 18 2014-08-23 Blood pressure systolic 122 mmHg 2014-08-23 Blood pressure diastolic 96 mmHg 2014-08-23 MEDICATIONS Unknown Medications RESULTS No Results PROCEDURES Procedure Date Ordered Result Body Site THER/PROPH/DIAG INJ, SC/IM August 23, 2014 INJ KETOROLAC TROMETHAMINE 15 MG August 23, 2014 INSTRUCTIONS MEDICATIONS ADMINISTERED No Known Medications [...] ER for Kidney pain/Stones 06/19/18 Hospitalization History [facility] X4 days 9
--- OUTSIDE RECORDS SUMMARY | 2019-12-26 11:09 | XMS REPORT ---
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 [address], [place] [address] May, [facility] [address] [id number] [address] [place] [address], [place] [address] Apr, [facility] [address] [id number] [address] [place] [address], [place] [address] Apr, [facility] [address] [id number] [address] [place] [address], [place] [address] Apr, [facility] [address] [id number] [address] [place] [address], [place] [address] Apr, [facility] [address] [id number] [address] [place] [address], [place] [address] Apr, [facility] [address] [id number] [address] [place] [address], [place] [address] Apr, [facility] [address] [id number] [address] [place] [address], [place] [address] Apr, [facility] [address] [id number] [address] [place] [address], [place] [address] Apr, [facility] [address] [id number] [address] [place] [address], [place] [address] Mar, [facility] [address] [id number] [address] [place] [address], [place] [address] 31 Mar, 2012 [facility] [address] [id number] [address] [place] [address], [place] [address] 31 Mar, 2012 [facility] [address] [id number] [address] [place] [address], [place] [address] 31 Mar, 2012 [facility] [address] [id number] [address] [place] [address], [place] [address] 15 Mar, 2012 [facility] [address] [id number] [address] [place] [address], [place] [address] 15 Mar, 2012 [facility] [address] [id number] [address] [place] [address], [place] [address] 11 Mar, 2012 [facility] [address] [id number] [address] [place] [address], [place] [address] Mar, [facility] [address] [id number] [address] [place] [address], [place] [address] Mar, [facility] [address] [id number] [address] [place] [address], [place] [address] Feb, [facility] [address] [id number] [address] [place] [address], [place] [address] Jan, [facility] [address] [id number] [address] [place] [address], [place] [address] Jan, [facility] [address] [id number] [address] [place] [address], [place] [address] Jan, [facility] [address] [id number] [address] [place] [address], [place] [address] Dec, [facility] [address] [id number] [address] [place] [address], [place] [address] Dec, [facility] [address] [id number] [address] [place] [address], [place] [address] Dec, [facility] [address] [id number] [address] [place] [address], [place] [address] Nov, [facility] [address] [id number] [address] [place] [address], [place] [address] October, [facility] [address] [id number] [address] [place] [address], [place] [address] October, [facility] [address] [id number] [address] [place] [address], [place] [address] October, [facility] [address] [id number] [address] [place] [address], [place] [address] October, [facility] [address] [id number] [address] [place] [address], [place] [address] October, [facility] [address] [id number] [address] [place] [address], [place] [address] Sep, [facility] [address] [id number] [address] [place] [address], [place] [address] 23 Sep, 2011 [facility] [address] [id number] [address] [place] [address], [place] [address] 13 Sep, 2011 [facility] [address] [id number] [address] [place] [address], [place] [address] 12 Sep, 2011 [facility] [address] [id number] [address] [place] [address], [place] [address] 12 Sep, 2011 [facility] [address] [id number] [address] [place] [address], [place] [address] 11 Sep, 2011 [facility] [address] [id number] [address] [place] [address], [place] [address] 11 Sep, 2011 [facility] [address] [id number] [address] [place] [address], [place] [address] 28 Aug, 2011 [facility] [address] [id number] [address] [place] [address], [place] [address] 23 Aug, 2011 [facility] [address] [id number] [address] [place] [address], [place] [address] 21 Aug, 2011 [facility] [address] [id number] [address] [place] [address], [place] [address] 21 Aug, 2011 [facility] [address] [id number] [address] [place] [address], [place] [address] 20 Aug, 2011 [facility] [address] [id number] [address] [place] [address], [place] [address] 19 Aug, 2011 [facility] [address] [id number] [address] [place] [address], [place] [address] 16 Aug, 2011 [facility] [address] [id number] [address] [place] [address], [place] [address] 15 Aug, 2011 [facility] [address] [id number] [address] [place] [address], [place] [address] 15 Aug, 2011 [facility] [address] [id number] [address] [place] [address], [place] [address] 14 Aug, 2011 [facility] [address] [id number] [address] [place] [address], [place] [address] Aug, [facility] [address] [id number] [address] [place] [address], [place] [address] Aug, [facility] [address] [id number] [address] [place] [address], [place] [address] 15 Jul, 2011 [facility] [address] [id number] [address] [place] [address], [place] [address] 15 Jul, 2011 [facility] [address] [id number] [address] [place] [address], [place] [address] 14 Jul, 2011 [facility] [address] [id number] [address] [place] [address], [place] [address] 06 Jul, 2011 [facility] [address] [id number] [address] [place] [address], [place] [address] Jul, [facility] [address] [id number] [address] [place] [address], [place] [address] Jun, [facility] [address] [id number] [address] [place] [address], [place] [address] Jun, [facility] [address] [id number] [address] [place] [address], [place] [address] Jun, [facility] [address] [id number] [address] [place] [address], [place] [address] May, [facility] [address] [id number] [address] [place] [address], [place] [address] May, [facility] [address] [id number] [address] [place] [address], [place] [address] May, [facility] [address] [id number] [address] [place] [address], [place] [address] May, [facility] [address] [id number] [address] [place] [address], [place] [address] 14 May, 2011 [facility] [address] [id number] [address] [place] [address] 16 Apr, 2011 [facility] [address] [id number] [address] [place] [address], [place] [address] 16 Apr, 2011 [facility] [address] [id number] [address] [place] [address] 15 Apr, 2011 [facility] [address] [id number] [address] [place] [address], [place] [address] 14 Apr, 2011 [facility] [address] [id number] [address] [place] [address], [place] [address] 25 Mar, 2011 [facility] [address] [id number] [address] [place] [address], [place] [address] 24 Mar, 2011 [facility] [address] [id number] [address] [place] [address], [place] [address] 19 Mar, 2011 [facility] [address] [id number] [address] [place] [address], [place] [address] 19 Mar, 2011 [facility] [address] [id number] [address] [place] [address], [place] [address] 17 Mar, 2011 [facility] [address] [id number] [address] [place] [address] 17 Mar, 2011 [facility] [address] [id number] [address] [place] [address], [place] [address] 16 Feb, 2011 [facility] [address] [id number] [address] [place] [address] Nov, [facility] [address] [id number] [address] [place] [address], [place] [address] 17 Aug, 2010 [facility] [address] [id number] [address] [place] [phone] 11 Apr, 2010 [facility] [address] [id number] [address] [place] [address], [place] [id number] 16 Mar, 2010 [facility] [address] [id number] [address] [place] [address], [place] [phone] 21 Apr, 2009 [facility] [address] [id number] [address] [place] [id number] 09 Apr, 2009 [facility] [address] [facility] [id number] [address] [place] [id number] 15 Sep, 2008 [facility] [address] [facility] [id number] [address] [place] [id number] 17 Mar, 2008 IMMUNIZATIONS No Known Immunizations [...] ER for Kidney pain/Stones 06/19/18 Hospitalization History [facility] Rudy X4 days 9
--- OUTSIDE RECORDS SUMMARY | 2019-12-26 11:09 | XMS REPORT ---
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 [address] [place] [address], [place] [address] Apr, [facility] [address] [id number] [address] [place] [address], [place] [address] Apr, [facility] [address] [id number] [address] [place] [address], [place] [address] Apr, [facility] [address] [id number] [address] [place] [address], [place] [address] Apr, [facility] [address] [id number] [address] [place] [address], [place] [address] Apr, [facility] [address] [id number] [address] [place] [address], [place] [address] Apr, [facility] [address] [id number] [address] [place] [address], [place] [address] Apr, [facility] [address] [id number] [address] [place] [address] Apr, [facility] [address] [id number] [address] [place] [address], [place] [address] Mar, [facility] [address] [id number] [address] [place] [address] Mar, [facility] [address] [id number] [address] [place] [address] 31 Mar, 2012 [facility] [address] [id number] [address] [place] [address] 31 Mar, 2012 [facility] [address] [id number] [address] [place] [address] 15 Mar, 2012 [facility] [address] [id number] [address] [place] [address] 15 Mar, 2012 [facility] [address] [id number] [address] [place] [address] 11 Mar, 2012 [facility] [address] [id number] [address] [place] [address] Mar, [facility] [address] [id number] [address] [place] [address], [place] [address] Mar, [facility] [address] [id number] [address] [place] [address], [place] [address] Feb, [facility] [address] [id number] [address] [place] [address], [place] [address] Jan, [facility] [address] [id number] [address] [place] [address], [place] [address] Jan, [facility] [address] [id number] [address] [place] [address], [place] [address] Jan, [facility] [address] [id number] [address] [place] [address], [place] [address] Dec, [facility] [address] [id number] [address] [place] [address], [place] [address] Dec, [facility] [address] [id number] [address] [place] [address], [place] [address] Dec, [facility] [address] [id number] [address] [place] [address], [place] [address] Nov, [facility] [address] [id number] [address] [place] [address], [place] [address] October, [facility] [address] [id number] [address] [place] [address], [place] [address] October, [facility] [address] [id number] [address] [place] [address], [place] [address] October, [facility] [address] [id number] [address] [place] [address], [place] [address] October, [facility] [address] [id number] [address] [place] [address], [place] [address] October, [facility] [address] [id number] [address] [place] [address], [place] [address] Sep, [facility] [address] [id number] [facility] [place] [address] 23 Sep, 2011 [facility] [address] [id number] [facility] [place] [address] 13 Sep, 2011 [facility] [address] [id number] [facility] [place] [address] 12 Sep, 2011 [facility] [address] [id number] [facility] [place] [address] 12 Sep, 2011 [facility] [address] [id number] [facility] [place] [address] 11 Sep, 2011 [facility] [address] [id number] [address] [place] [address], [place] [address] 11 Sep, 2011 [facility] [address] [id number] [address] [place] [address], [place] [address] 28 Aug, 2011 [facility] [address] [id number] [address] [place] [address], [place] [address] 23 Aug, 2011 [facility] [address] [id number] [address] [place] [address], [place] [address] 21 Aug, 2011 [facility] [address] [id number] [address] [place] [address], [place] [address] 21 Aug, 2011 [facility] [address] [id number] [address] [place] [address], [place] [address] 20 Aug, 2011 [facility] [address] [id number] [address] [place] [address], [place] [address] 19 Aug, 2011 [facility] [address] [id number] [address] [place] [address], [place] [address] 16 Aug, 2011 [facility] [address] [id number] [address] [place] [address], [place] [address] 15 Aug, 2011 [facility] [address] [id number] [address] [place] [address], [place] [address] 15 Aug, 2011 [facility] [address] [id number] [address] [place] [address], [place] [address] 14 Aug, 2011 [facility] [address] [id number] [address] [place] [address], [place] [address] Aug, [facility] [address] [id number] [address] [place] [address], [place] [address] 08 Aug, 2011 [facility] [address] [id number] [address] [place] [address], [place] [address] 15 Jul, 2011 [facility] [address] [id number] [address] [place] [address], [place] [address] 15 Jul, 2011 [facility] [address] [id number] [address] [place] [address], [place] [address] 14 Jul, 2011 [facility] [address] [id number] [address] [place] [address], [place] [address] 06 Jul, 2011 [facility] [address] [id number] [address] [place] [address], [place] [address] Jul, [facility] [address] [id number] [address] [place] [address], [place] [address] Jun, [facility] [address] [id number] [address] [place] [address], [place] [address] Jun, [facility] [address] [id number] [address] [place] [address], [place] [address] Jun, [facility] [address] [id number] [address] [place] [address], [place] [address] May, [facility] [address] [id number] [address] [place] [address], [place] [address] May, [facility] [address] [id number] [address] [place] [address], [place] [address] May, [facility] [address] [id number] [address] [place] [address], [place] [address] May, [facility] [address] [id number] [address] [place] [address], [place] [address] May, [facility] [address] [id number] [address] [place] [address], [place] [address] 16 Apr, 2011 [facility] [address] [id number] [address] [place] [address], [place] [address] 16 Apr, 2011 [facility] [address] [id number] [address] [place] [address], [place] [address] 15 Apr, 2011 [facility] [address] [id number] [address] [place] [address], [place] [address] 14 Apr, 2011 [facility] [address] [id number] [address] [place] [address], [place] [address] 25 Mar, 2011 [facility] [address] [id number] [address] [place] [address], [place] [address] 24 Mar, 2011 [facility] [address] [id number] [address] [place] [address], [place] [address] 19 Mar, 2011 [facility] [address] [id number] [address] [place] [address], [place] [address] 19 Mar, 2011 [facility] [address] [id number] [address] [place] [address], [place] [address] 17 Mar, 2011 [facility] [address] [id number] [address] [place] [address], [place] [address] 17 Mar, 2011 [facility] [address] [id number] [address] [place] [address], [place] [address] 16 Feb, 2011 [facility] [address] [id number] [address] [place] [address], [place] [address] 10 Nov, 2010 [facility] [address] [id number] [address] [place] [address], [place] [address] 17 Aug, 2010 [facility] [address] [id number] [address] [place] [address], [place] [address] 11 Apr, 2010 [facility] [address] [id number] [address] [place] [address], [place] [address] 16 Mar, 2010 [facility] [address] [id number] [address] [place] [address], [place] [address] Apr, [facility] [address] [facility] [id number] [address] [place] [address] Apr, [facility] [address] [facility] [id number] [address] [place] [address] Sep, [facility] [address] [facility] [id number] [address] [place] [address] 17 Mar, 2008 IMMUNIZATIONS No Known Immunizations [...] for Kidney pain/Stones 06/19/18 Hospitalization History [facility] X4 days 9
[2019-12-26 11:10] VITALS: BP 102/62
--- OUTSIDE RECORDS SUMMARY | 2019-12-26 11:10 | XMS REPORT ---
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 [id number] [address] [place] [address], [place] [address] May, [facility] [address] [id number] [address] [place] [address], [place] [address] Apr, [facility] [address] [id number] [address] [place] [address], [place] [address] Apr, [facility] [address] [id number] [address] [place] [address], [place] [address] Apr, [facility] [address] [id number] [address] [place] [address], [place] [address] Apr, [facility] [address] [id number] [address] [place] [address], [place] [address] Apr, [facility] [address] [id number] [address] [place] [address], [place] [address] Apr, [facility] [address] [id number] [address] [place] [address], [place] [address] Apr, [facility] [address] [id number] [address] [place] [address], [place] [address] Apr, [facility] [address] [id number] [address] [place] [address], [place] [address] Mar, [facility] [address] [id number] [address] [place] [address], [place] [address] 31 Mar, 2012 [facility] [address] [id number] [address] [place] [address], [place] [address] 31 Mar, 2012 [facility] [address] [id number] [address] [place] [address], [place] [address] 31 Mar, 2012 [facility] [address] [id number] [address] [place] [address], [place] [address] 15 Mar, 2012 [facility] [address] [id number] [address] [place] [address], [place] [address] 15 Mar, 2012 [facility] [address] [id number] [address] [place] [address], [place] [address] 11 Mar, 2012 [facility] [address] [id number] [address] [place] [address], [place] [address] Mar, [facility] [address] [id number] [address] [place] [address], [place] [address] Mar, [facility] [address] [id number] [address] [place] [address], [place] [address] Feb, [facility] [address] [id number] [address] [place] [address], [place] [address] Jan, [facility] [address] [id number] [address] [place] [address], [place] [address] Jan, [facility] [address] [id number] [address] [place] [address], [place] [address] Jan, [facility] [address] [id number] [address] [place] [address], [place] [address] Dec, [facility] [address] [id number] [address] [place] [address], [place] [address] Dec, [facility] [address] [id number] [address] [place] [address], [place] [address] Dec, [facility] [address] [id number] [address] [place] [address], [place] [address] Nov, [facility] [address] [id number] [address] [place] [address], [place] [address] October, [facility] [address] [id number] [address] [place] [address], [place] [address] October, [facility] [address] [id number] [address] [place] [address], [place] [address] October, [facility] [address] [id number] [address] [place] [address], [place] [address] October, [facility] [address] [id number] [address] [place] [address], [place] [address] October, [facility] [address] [id number] [address] [place] [address], [place] [address] Sep, [facility] [address] [id number] [address] [place] [address], [place] [address] 23 Sep, 2011 [facility] [address] [id number] [address] [place] [address], [place] [address] 13 Sep, 2011 [facility] [address] [id number] [address] [place] [address], [place] [address] 12 Sep, 2011 [facility] [address] [id number] [address] [place] [address], [place] [address] 12 Sep, 2011 [facility] [address] [id number] [address] [place] [address], [place] [address] 11 Sep, 2011 [facility] [address] [id number] [address] [place] [address], [place] [id number] 11 Sep, 2011 [facility] [address] [id number] [address] [place] [address], [place] [address] 28 Aug, 2011 [facility] [address] [id number] [address] [place] [address], [place] [address] 23 Aug, 2011 [facility] [address] [id number] [address] [place] [address], [place] [address] 21 Aug, 2011 [facility] [address] [id number] [address] [place] [address], [place] [address] 21 Aug, 2011 [facility] [address] [id number] [address] [place] [address], [place] [id number] 20 Aug, 2011 [facility] [address] [id number] [address] [place] [address], [place] [address] 19 Aug, 2011 [facility] [address] [id number] [address] [place] [address], [place] [id number] 16 Aug, 2011 [facility] [address] [id number] [address] [place] [address], [place] [address] 15 Aug, 2011 [facility] [address] [id number] [address] [place] [address], [place] [address] 15 Aug, 2011 [facility] [address] [id number] [address] [place] [address], [place] [address] 14 Aug, 2011 [facility] [address] [id number] [address] [place] [address], [place] [address] Aug, [facility] [address] [id number] [address] [place] [address], [place] [address] Aug, [facility] [address] [id number] [address] [place] [address], [place] [address] 15 Jul, 2011 [facility] [address] [id number] [address] [place] [address], [place] [id number] 15 Jul, 2011 [facility] [address] [id number] [address] [place] [address], [place] [address] 14 Jul, 2011 [facility] [address] [id number] [address] [place] [address], [place] [address] 06 Jul, 2011 [facility] [address] [id number] [address] [place] [address], [place] [address] Jul, [facility] [address] [id number] [address] [place] [address], [place] [address] Jun, [facility] [address] [id number] [address] [place] [address], [place] [id number] Jun, [facility] [address] [id number] [address] [place] [address], [place] [address] Jun, [facility] [address] [id number] [address] [place] [address], [place] [address] May, [facility] [address] [id number] [address] [place] [address], [place] [address] May, [facility] [address] [id number] [address] [place] [address], [place] [address] May, [facility] [address] [id number] [address] [place] [address], [place] [address] May, [facility] [address] [id number] [address] [place] [address], [place] [id number] 14 May, 2011 [facility] [address] [id number] [address] [place] [id number] 16 Apr, 2011 [facility] [address] [id number] [address] [place] [address], [place] [address] 16 Apr, 2011 [facility] [address] [id number] [address] [place] [id number] 15 Apr, 2011 [facility] [address] [id number] [address] [place] [address], [place] [id number] 14 Apr, 2011 [facility] [address] [id number] [address] [place] [address], [place] [address] 25 Mar, 2011 [facility] [address] [id number] [address] [place] [address], [place] [id number] 24 Mar, 2011 [facility] [address] [id number] [address] [place] [address], [place] [id number] 19 Mar, 2011 [facility] [address] [id number] [address] [place] [address], [place] [id number] 19 Mar, 2011 [facility] [address] [id number] [address] [place] [address], [place] [id number] 17 Mar, 2011 [facility] [address] [id number] [address] [place] [id number] 17 Mar, 2011 [facility] [address] [id number] [address] [place] [address], [place] [id number] 16 Feb, 2011 [facility] [address] [id number] [address] [place] [id number] Nov, [facility] [address] [id number] [address] [place] [address], [place] [id number] 17 Aug, 2010 [facility] [address] [id number] [address] [place] [id number] 11 Apr, 2010 [facility] [address] [id number] [address] [place] [address], [place] [id number] 16 Mar, 2010 [facility] [address] [id number] [address] [place] [address], [place] [id number] 21 Apr, 2009 [facility] [address] [id number] [address] [place] [id number] 09 Apr, 2009 [facility] [address] [facility] [id number] [address] [place] [id number] 15 Sep, 2008 [facility] [address] [facility] [id number] [address] [place] [id number] 17 Mar, 2008 IMMUNIZATIONS No Known Immunizations [...] ER for Kidney pain/Stones 06/19/18 Hospitalization History [facility] Rudy X4 days 9
--- OUTSIDE RECORDS SUMMARY | 2019-12-26 11:10 | XMS REPORT ---
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 Jun, [facility] [address] [id number] [address] [place] [address], [place] [address] May, [facility] [address] [id number] [address] [place] [address], [place] [address] May, [facility] [address] [id number] [address] [place] [address], [place] [address] Apr, [facility] [address] [id number] [address] [place] [address], [place] [address] Apr, [facility] [address] [id number] [address] [place] [address], [place] [address] Apr, [facility] [address] [id number] [address] [place] [address], [place] [address] Apr, [facility] [address] [id number] [address] [place] [address], [place] [address] Apr, [facility] [address] [id number] [address] [place] [address], [place] [address] Apr, [facility] [address] [id number] [address] [place] [address], [place] [address] Apr, [facility] [address] [id number] [address] [place] [address], [place] [address] Apr, [facility] [address] [id number] [address] [place] [address], [place] [address] Mar, [facility] [address] [id number] [address] [place] [address], [place] [address] 31 Mar, 2012 [facility] [address] [id number] [address] [place] [address], [place] [address] 31 Mar, 2012 [facility] [address] [id number] [address] [place] [address], [place] [address] 31 Mar, 2012 [facility] [address] [id number] [address] [place] [address], [place] [address] 15 Mar, 2012 [facility] [address] [id number] [address] [place] [address], [place] [address] 15 Mar, 2012 [facility] [address] [id number] [address] [place] [address], [place] [address] 11 Mar, 2012 [facility] [address] [id number] [address] [place] [address], [place] [address] Mar, [facility] [address] [id number] [address] [place] [address], [place] [address] Mar, [facility] [address] [id number] [address] [place] [address], [place] [address] Feb, [facility] [address] [id number] [address] [place] [address], [place] [address] Jan, [facility] [address] [id number] [address] [place] [address], [place] [address] Jan, [facility] [address] [id number] [address] [place] [address], [place] [address] Jan, [facility] [address] [id number] [address] [place] [address], [place] [address] Dec, [facility] [address] [id number] [address] [place] [address], [place] [address] Dec, [facility] [address] [id number] [address] [place] [address], [place] [address] Dec, [facility] [address] [id number] [address] [place] [address], [place] [address] Nov, [facility] [address] [id number] [address] [place] [address], [place] [address] October, [facility] [address] [id number] [address] [place] [address], [place] [address] October, [facility] [address] [id number] [address] [place] [address], [place] [address] October, [facility] [address] [id number] [address] [place] [address], [place] [address] October, [facility] [address] [id number] [address] [place] [address], [place] [address] October, [facility] [address] [id number] [address] [place] [address], [place] [address] Sep, [facility] [address] [id number] [address] [place] [address], [place] [address] 23 Sep, 2011 [facility] [address] [id number] [address] [place] [address], [place] [address] 13 Sep, 2011 [facility] [address] [id number] [address] [place] [address], [place] [address] 12 Sep, 2011 [facility] [address] [id number] [address] [place] [address], [place] [address] 12 Sep, 2011 [facility] [address] [id number] [address] [place] [address], [place] [address] 11 Sep, 2011 [facility] [address] [id number] [address] [place] [address], [place] [address] 11 Sep, 2011 [facility] [address] [id number] [address] [place] [address], [place] [address] 28 Aug, 2011 [facility] [address] [id number] [address] [place] [address], [place] [address] 23 Aug, 2011 [facility] [address] [id number] [address] [place] [address], [place] [address] 21 Aug, 2011 [facility] [address] [id number] [address] [place] [address], [place] [address] 21 Aug, 2011 [facility] [address] [id number] [address] [place] [address], [place] [address] 20 Aug, 2011 [facility] [address] [id number] [address] [place] [address], [place] [address] 19 Aug, 2011 [facility] [address] [id number] [address] [place] [address], [place] [address] 16 Aug, 2011 [facility] [address] [id number] [address] [place] [address], [place] [address] 15 Aug, 2011 [facility] [address] [id number] [address] [place] [address], [place] [address] 15 Aug, 2011 [facility] [address] [id number] [address] [place] [address], [place] [address] 14 Aug, 2011 [facility] [address] [id number] [address] [place] [address], [place] [address] Aug, [facility] [address] [id number] [address] [place] [address], [place] [address] Aug, [facility] [address] [id number] [address] [place] [address], [place] [address] 15 Jul, 2011 [facility] [address] [id number] [address] [place] [address], [place] [address] 15 Jul, 2011 [facility] [address] [id number] [address] [place] [address], [place] [address] 14 Jul, 2011 [facility] [address] [id number] [address] [place] [address], [place] [address] 06 Jul, 2011 [facility] [address] [id number] [address] [place] [address], [place] [address] Jul, [facility] [address] [id number] [address] [place] [address], [place] [address] Jun, [facility] [address] [id number] [address] [place] [address], [place] [address] Jun, [facility] [address] [id number] [address] [place] [address], [place] [address] Jun, [facility] [address] [id number] [address] [place] [address], [place] [address] May, [facility] [address] [id number] [address] [place] [address], [place] [address] May, [facility] [address] [id number] [address] [place] [address], [place] [address] May, [facility] [address] [id number] [address] [place] [address], [place] [address] May, [facility] [address] [id number] [address] [place] [address], [place] [address] 14 May, 2011 [facility] [address] [id number] [address] [place] [id number] 16 Apr, 2011 [facility] [address] [id number] [address] [place] [address], [place] [address] 16 Apr, 2011 [facility] [address] [id number] [address] [place] [id number] 15 Apr, 2011 [facility] [address] [id number] [address] [place] [address], [place] [address] 14 Apr, 2011 [facility] [address] [id number] [address] [place] [address], [place] [address] 25 Mar, 2011 [facility] [address] [id number] [address] [place] [address], [place] [address] 24 Mar, 2011 [facility] [address] [id number] [address] [place] [address], [place] [address] 19 Mar, 2011 [facility] [address] [id number] [address] [place] [address], [place] [address] 19 Mar, 2011 [facility] [address] [id number] [address] [place] [address], [place] [address] 17 Mar, 2011 [facility] [address] [id number] [address] [place] [id number] 17 Mar, 2011 [facility] [address] [id number] [address] [place] [address], [place] [address] 16 Feb, 2011 [facility] [address] [id number] [address] [place] [id number] Nov, [facility] [address] [id number] [address] [place] [address], [place] [address] 17 Aug, 2010 [facility] [address] [id number] [address] [place] [id number] 11 Apr, 2010 [facility] [address] [id number] [address] [place] [address], [place] [address] 16 Mar, 2010 [facility] [address] [id number] [address] [place] [address], [place] [address] 21 Apr, 2009 [facility] [address] [id number] [address] [address] Apr, [facility] [address] [facility] [id number] [address] [place] [id number] Sep, [facility] [address] [facility] [id number] [address] [address] Mar, IMMUNIZATIONS No Known Immunizations SOCIAL HISTORY Never Assessed REASON FOR VISIT [facility] [place] PLAN OF CARE VITAL SIGNS MEDICATIONS Medication Instructions Dosage Frequency Start Date End Date Duration S tatus Vistaril 25 mg take 1 capsule by Oral route 3 times pe r day PRN for sleep Aug, Active Dexilant 60 mg 1 capsule by Oral route 1 time per day Feb, Active Ciprofloxacin 500 mg 1 tablet by Oral route every 12 h ours for 3 day(s) Feb, Active Flagyl 500 mg 1 tablet by Oral route 2 times per day f or 7 days May, Active Micardis 20 mg 1 tablet by Oral route 1 time per day Jun, Active Zithromax Z-Emanuel 250 mg 2 tablet by Oral route 1 time per day for 5 days on day 1 then take 1 tab daily on days 2-5 Dec, Active tramadol 50 mg take 1 tablet (50 mg ) by oral route every 4-6 hours as needed PRN pain Aug, Active Crestor 10 mg 1 tablet by Oral route 1 time per day 16 S 2013 Active Advair Diskus 250-50 mcg/dose 1 puffs by Inhalation ro [place] 2 times per day Feb, Active Fetzima 20 mg take 1 capsules by O ral route at approximately the same time each day 1 time per day Jul, Act diana cyclobenzaprine 10 mg 1 tablet 2 times per day PRN 25 [id number] Active PredniSONE 10 mg 1 Tablet by Oral rou te 2 times per day for 5 days Take at 8 am and noon. Do not take after 3 pm Apr, Active Promethazine-Codeine 6.25-10 mg/5 mL 5 m L by Oral route every 4 hours for 10 day(s) Aug, Active PredniSONE 20 mg 2 tablet by Oral route 1 time per day for 5 day(s) Aug, Active Doxycycline Hyclate 100 mg take 1 tablet by Oral route 2 times per day for 10 days Apr, Active Lyrica 50 mg 1 capsule by Oral route 3 times per day for fibromyalgia (729.1) Mar, Active RESULTS No Results PROCEDURES No Known [...] ER for Kidney pain/Stones 06/19/[address] [facility] X4 days 9
--- OUTSIDE RECORDS SUMMARY | 2019-12-26 11:10 | XMS REPORT ---
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 [address] Apr, [facility] [address] [id number] [address] [place] [address], [place] [address] Apr, [facility] [address] [id number] [address] [place] [address], [place] [address] Apr, [facility] [address] [id number] [address] [place] [address], [place] [id number] Apr, [facility] [address] [id number] [address] [place] [address], [place] [address] Apr, [facility] [address] [id number] [address] [place] [address], [place] [address] Apr, [facility] [address] [id number] [address] [place] [address], [place] [address] Mar, [facility] [address] [id number] [address] [place] [address], [place] [id number] 31 Mar, 2012 [facility] [address] [id number] [address] [place] [address], [place] [address] 31 Mar, 2012 [facility] [address] [id number] [address] [place] [address], [place] [address] 31 Mar, 2012 [facility] [address] [id number] [address] [place] [address], [place] [address] 15 Mar, 2012 [facility] [address] [id number] [address] [place] [address], [place] [address] 15 Mar, 2012 [facility] [address] [id number] [address] [place] [id number] Mar, [facility] [address] [id number] [address] [place] [address], [place] [address] Mar, [facility] [address] [id number] [address] [place] [address], [place] [address] Mar, [facility] [address] [id number] [address] [place] [address], [place] [address] Feb, [facility] [address] [id number] [address] [place] [address], [place] [address] Jan, [facility] [address] [id number] [address] [place] [address], [place] [address] Jan, [facility] [address] [id number] [address] [place] [address], [place] [address] Jan, [facility] [address] [id number] [address] [place] [address], [place] [address] Dec, [facility] [address] [id number] [address] [place] [address], [place] [address] Dec, [facility] [address] [id number] [address] [place] [address], [place] [address] Dec, [facility] [address] [id number] [address] [place] [address], [place] [address] Nov, [facility] [address] [id number] [address] [place] [address], [place] [address] October, [facility] [address] [id number] [address] [place] [address], [place] [address] October, [facility] [address] [id number] [address] [place] [address], [place] [address] October, [facility] [address] [id number] [address] [place] [address], [place] [address] October, [facility] [address] [id number] [address] [place] [address], [place] [address] October, [facility] [address] [id number] [facility] [place] [address] 30 Sep, 2011 [facility] [address] [id number] [address] [place] [address], [place] [address] 23 Sep, 2011 [facility] [address] [id number] [address] [place] [address], [place] [address] 13 Sep, 2011 [facility] [address] [id number] [address] [place] [address], [place] [address] 12 Sep, 2011 [facility] [address] [id number] [address] [place] [address], [place] [address] 12 Sep, 2011 [facility] [address] [id number] [address] [place] [address], [place] [address] 11 Sep, 2011 [facility] [address] [id number] [address] [place] [address], [place] [address] 11 Sep, 2011 [facility] [address] [id number] [address] [place] [address], [place] [address] 28 Aug, 2011 [facility] [address] [id number] [address] [place] [address], [place] [address] 23 Aug, 2011 [facility] [address] [id number] [address] [place] [address], [place] [address] 21 Aug, 2011 [facility] [address] [id number] [address] [place] [address], [place] [address] 21 Aug, 2011 [facility] [address] [id number] [address] [place] [address], [place] [address] 20 Aug, 2011 [facility] [address] [id number] [address] [place] [address], [place] [address] 19 Aug, 2011 [facility] [address] [id number] [address] [place] [address], [place] [address] 16 Aug, 2011 [facility] [address] [id number] [address] [place] [address], [place] [address] 15 Aug, 2011 [facility] [address] [id number] [address] [place] [address], [place] [address] 15 Aug, 2011 [facility] [address] [id number] [address] [place] [address], [place] [address] 14 Aug, 2011 [facility] [address] [id number] [address] [place] [address], [place] [address] 12 Aug, 2011 [facility] [address] [id number] [address] [place] [address], [place] [id number] 08 Aug, 2011 [facility] [address] [id number] [address] [place] [address], [place] [address] 15 Jul, 2011 [facility] [address] [id number] [address] [place] [address], [place] [address] 15 Jul, 2011 [facility] [address] [id number] [address] [place] [address], [place] [address] 14 Jul, 2011 [facility] [address] [id number] [address] [place] [address], [place] [id number] 06 Jul, 2011 [facility] [address] [id number] [address] [place] [address], [place] [address] Jul, [facility] [address] [id number] [address] [place] [address], [place] [address] Jun, [facility] [address] [id number] [address] [place] [address], [place] [address] Jun, [facility] [address] [id number] [address] [place] [address], [place] [address] Jun, [facility] [address] [id number] [address] [place] [address], [place] [address] May, [facility] [address] [id number] [address] [place] [address], [place] [address] May, [facility] [address] [id number] [address] [place] [address], [place] [address] May, [facility] [address] [id number] [address] [place] [address], [place] [address] May, [facility] [address] [id number] [address] [place] [address], [place] [address] 14 May, 2011 [facility] [address] [id number] [address] [place] [address], [place] [address] 16 Apr, 2011 [facility] [address] [id number] [address] [place] [address], [place] [address] 16 Apr, 2011 [facility] [address] [id number] [address] [place] [id number] 15 Apr, 2011 [facility] [address] [id number] [address] [place] [address], [place] [id number] 14 Apr, 2011 [facility] [address] [id number] [address] [place] [address], [place] [id number] 25 Mar, 2011 [facility] [address] [id number] [address] [place] [address], [place] [id number] 24 Mar, 2011 [facility] [address] [id number] [address] [place] [address], [place] [id number] 19 Mar, 2011 [facility] [address] [id number] [address] [place] [address], [place] [id number] 19 Mar, 2011 [facility] [address] [id number] [address] [place] [address], [place] [id number] 17 Mar, 2011 [facility] [address] [id number] [address] [place] [id number] 17 Mar, 2011 [facility] [address] [id number] [address] [place] [address], [place] [address] 16 Feb, 2011 [facility] [address] [id number] [address] [place] [id number] 10 Nov, 2010 [facility] [address] [id number] [address] [place] [address], [place] [address] 17 Aug, 2010 [facility] [address] [id number] [address] [place] [id number] 11 Apr, 2010 [facility] [address] [id number] [address] [place] [id number] Mar, [facility] [address] [facility] [id number] [address] [place] [id number] Apr, [facility] [address] [facility] [id number] [address] [place] [id number] Apr, [facility] [address] [facility] [id number] [address] [place] [id number] Sep, [facility] [address] [facility] [id number] [address] [place] [phone] Mar, IMMUNIZATIONS No Known Immunizations SOCIAL HISTORY Never Assessed REASON FOR VISIT Hypertension, PT has been having some weight gain lately. increase of appetite. -Magdaleno REED PLAN OF CARE VITAL SIGNS Height 63 in 2018-08-19 Weight 263.7 lbs 2018-08-19 Temperature 98.7 degrees Fahrenheit 2018-08-19 Heart Rate 59 bpm 2018-08-19 Respiratory Rate 20 2018-08-19 Oximetry 96 % 2018-08-19 BMI 46.71 kg/m2 2018-08-19 Blood pressure systolic 122 mmHg 2018-08-19 Blood pressure diastolic 70 mmHg 2018-08-19 MEDICATIONS Medication Instructions Dosage Frequency Start Date End Date Duration S tatus MetFORMIN HCl ER 500 mg Orally twice a day 2 tablets 12h Jan, 201 8 30 days Active Glucocard Expression Test - test blood sugar Aug, 201 7 Active Mirtazapine 15 MG Orally Once a day 1 tablet at bedtime 24h Active Naproxen 500 MG Orally 2 times a day 1 tablet with food or milk as needed 12h Apr, Active Spironolactone 50 MG Orally Once a day 1 tablet with food 24h Nov, 90 days Active Crestor 10 mg Orally Once a day 1 tablet 24h 16 Feb, 2014 90 days Active Reglan 10 mg Orally 2 times a day, prn nausea 1 tablet Dec, 2 018 Active Wheelchair 1 use as needed for acitivity assistance 2016 Active Ondansetron HCl 8 MG Orally every 8 hours, PRN 1 tablet Jun, 3 days Active Propranolol HCl 60 MG Orally Twice a day 1 tablet 12h October, 90 days Active Ventolin HFA 108 (90 Base) MCG/ACT Inhalation every 6 hrs 2 puffs a s needed 6h Jul, Active Micardis 20 mg Orally Once a day 1 tablet by Oral route 1 time per day 24h 15 Jun, 2014 30 days Active Actos 30 MG Orally Once a day 1/2 tablet 24h 07 Feb, 2018 Active Albuterol Sulfate (2.5 MG/3ML) 0.083% Inhalation Three times a day 3 ml 8h Aug, Active Pantoprazole Sodium 40 mg Orally Once a day 1 tablet 24h 04 May, 7 90 days Active Cymbalta 60 mg Orally Once a day 1 capsule 24h 30 da ys Active Glucocard Expression Monitor w/Device as directed Aug Active Walker Ipava Wheels - with bench seat. DX: fibromyalgia, uns teady gait as directed Jan, Active RESULTS Name Result Date Reference Range A1C (IN HOUSE) 2018-08-19 A1C IN HOUSE 7.1 4.3 - 5.6 % Previous A1c 6.7 Lot [id number] Exp date 03/2020 PROCEDURES Procedure Date Ordered Result Body Site GLYCATED HEMOGLOBIN TEST August 19, 2018 INSTRUCTIONS MEDICATIONS ADMINISTERED No Known Medications [...] ER for Kidney pain/Stones 06/19/18 Hospitalization History [employer] [place] X4 days 9
--- OUTSIDE RECORDS SUMMARY | 2019-12-26 11:11 | XMS REPORT ---
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 [address] Apr, [facility] [address] [id number] [address] [place] [address], [place] [address] Apr, [facility] [address] [id number] [address] [place] [address], [place] [address] Apr, [facility] [address] [id number] [address] [place] [address], [place] [address] Apr, [facility] [address] [id number] [address] [place] [address], [place] [address] Mar, [facility] [address] [id number] [address] [place] [address], [place] [address] Mar, [facility] [address] [id number] [address] [place] [address], [place] [address] Mar, [facility] [address] [id number] [address] [place] [address], [place] [address] Mar, [facility] [address] [id number] [address] [place] [address], [place] [address] Mar, [facility] [address] [id number] [address] [place] [address], [place] [address] Mar, [facility] [address] [id number] [address] [place] [address], [place] [address] Mar, [facility] [address] [id number] [address] [place] [address], [place] [address] Mar, [facility] [address] [id number] [address] [place] [address], [place] [address] Mar, [facility] [address] [id number] [address] [place] [id number] Feb, [facility] [address] [id number] [address] [place] [address], [place] [address] Jan, [facility] [address] [id number] [address] [place] [id number] Jan, [facility] [address] [id number] [address] [place] [address], [place] [address] Jan, [facility] [address] [id number] [address] [place] [address], [place] [address] Dec, [facility] [address] [id number] [address] [place] [address], [place] [address] Dec, [facility] [address] [id number] [address] [place] [address], [place] [address] Dec, [facility] [address] [id number] [address] [place] [address], [place] [address] Nov, [facility] [address] [id number] [address] [place] [address], [place] [address] October, [facility] [address] [id number] [address] [place] [address], [place] [address] October, [facility] [address] [id number] [address] [place] [address], [place] [address] October, [facility] [address] [id number] [address] [place] [address], [place] [address] October, [facility] [address] [id number] [address] [place] [address], [place] [address] October, [facility] [address] [id number] [address] [place] [address], [place] [address] Sep, [facility] [address] [id number] [address] [place] [address], [place] [address] Sep, [facility] [address] [id number] [address] [place] [address], [place] [address] Sep, [facility] [address] [id number] [address] [place] [address], [place] [address] Sep, [facility] [address] [id number] [address] [place] [address], [place] [address] Sep, [facility] [address] [id number] [address] [place] [address], [place] [address] Sep, [facility] [address] [id number] [address] [place] [address], [place] [address] Sep, [facility] [address] [id number] [address] [place] [address], [place] [address] Aug, [facility] [address] [id number] [address] [place] [address], [place] [address] Aug, [facility] [address] [id number] [facility] [place] [address] 21 Aug, 2011 [facility] [address] [id number] [facility] [place] [address] 21 Aug, 2011 [facility] [address] [id number] [facility] [place] [address] 20 Aug, 2011 [facility] [address] [id number] [address] [place] [address], [place] [address] 19 Aug, 2011 [facility] [address] [id number] [address] [place] [address], [place] [address] 16 Aug, 2011 [facility] [address] [id number] [address] [place] [address], [place] [address] 15 Aug, 2011 [facility] [address] [id number] [address] [place] [address], [place] [address] 15 Aug, 2011 [facility] [address] [id number] [address] [place] [address], [place] [address] 14 Aug, 2011 [facility] [address] [id number] [address] [place] [address], [place] [address] 12 Aug, 2011 [facility] [address] [id number] [address] [place] [address], [place] [address] 08 Aug, 2011 [facility] [address] [id number] [address] [place] [address], [place] [address] 15 Jul, 2011 [facility] [address] [id number] [address] [place] [address], [place] [address] 15 Jul, 2011 [facility] [address] [id number] [address] [place] [address], [place] [address] 14 Jul, 2011 [facility] [address] [id number] [address] [place] [address], [place] [address] 06 Jul, 2011 [facility] [address] [id number] [address] [place] [address], [place] [address] 02 Jul, 2011 [facility] [address] [id number] [address] [place] [id number] Jun, [facility] [address] [id number] [address] [place] [address], [place] [address] Jun, [facility] [address] [id number] [address] [place] [id number] Jun, [facility] [address] [id number] [address] [place] [address], [place] [address] May, [facility] [address] [id number] [address] [place] [address], [place] [address] May, [facility] [address] [id number] [address] [place] [address], [place] [address] May, [facility] [address] [id number] [address] [place] [address], [place] [address] May, [facility] [address] [id number] [address] [place] [id number] May, [facility] [address] [id number] [address] [place] [address], [place] [address] 16 Apr, 2011 [facility] [address] [id number] [address] [place] [id number] 16 Apr, 2011 [facility] [address] [id number] [address] [place] [id number] 15 Apr, 2011 [facility] [address] [id number] [address] [place] [id number] 14 Apr, 2011 [facility] [address] [id number] [address] [place] [id number] 25 Mar, 2011 [facility] [address] [id number] [address] [place] [id number] 24 Mar, 2011 [facility] [address] [id number] [address] [place] [id number] 19 Mar, 2011 [facility] [address] [id number] [address] [place] [id number] 19 Mar, 2011 [facility] [address] [id number] [address] [place] [id number] 17 Mar, 2011 [facility] [address] [id number] [address] [place] [id number] 17 Mar, 2011 [facility] [address] [id number] [address] [place] [id number] 16 Feb, 2011 [facility] [address] [id number] [address] [place] [phone] Nov, [facility] [address] [id number] [address] [place] [id number] Aug, [facility] [address] [id number] [address] [place] [id number] Apr, [facility] [address] [id number] [address] [place] [id number] 16 Mar, 2010 [facility] [address] [id number] [address] [place] [phone] Apr, [facility] [address] [id number] [address] [place] [phone] Apr, [facility] [address] [id number] [address] [place] [id number] Sep, [facility] [address] [id number] [address] [place] [id number] Mar, IMMUNIZATIONS No Known Immunizations SOCIAL HISTORY Never Assessed REASON FOR VISIT [facility] PLAN OF CARE VITAL SIGNS MEDICATIONS No [...]
--- OUTSIDE RECORDS SUMMARY | 2019-12-26 11:11 | XMS REPORT ---
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 [facility] [address] [id number] [address] [place] [address], [place] [address] Jun, [facility] [address] [id number] [address] [place] [address], [place] [address] May, [facility] [address] [id number] [address] [place] [address], [place] [address] May, [facility] [address] [id number] [address] [place] [address], [place] [address] Apr, [facility] [address] [id number] [address] [place] [address], [place] [address] Apr, [facility] [address] [id number] [address] [place] [address], [place] [address] Apr, [facility] [address] [id number] [address] [place] [address], [place] [address] Apr, [facility] [address] [id number] [address] [place] [address], [place] [address] Apr, [facility] [address] [id number] [address] [place] [address], [place] [address] Apr, [facility] [address] [id number] [address] [place] [address], [place] [address] Apr, [facility] [address] [id number] [address] [place] [address], [place] [address] Apr, [facility] [address] [id number] [address] [place] [address], [place] [address] Mar, [facility] [address] [id number] [address] [place] [address], [place] [address] Mar, [facility] [address] [id number] [address] [place] [address], [place] [address] Mar, [facility] [address] [id number] [address] [place] [address], [place] [address] Mar, [facility] [address] [id number] [address] [place] [address], [place] [address] Mar, [facility] [address] [id number] [address] [place] [address], [place] [address] Mar, [facility] [address] [id number] [address] [place] [address], [place] [address] Mar, [facility] [address] [id number] [address] [place] [address], [place] [address] Mar, [facility] [address] [id number] [address] [place] [address], [place] [address] Mar, [facility] [address] [id number] [address] [place] [address], [place] [address] Feb, [facility] [address] [id number] [address] [place] [address], [place] [address] Jan, [facility] [address] [id number] [address] [place] [address], [place] [address] Jan, [facility] [address] [id number] [address] [place] [address], [place] [address] Jan, [facility] [address] [id number] [address] [place] [address], [place] [address] Dec, [facility] [address] [id number] [address] [place] [address], [place] [address] Dec, [facility] [address] [id number] [address] [place] [address], [place] [address] Dec, [facility] [address] [id number] [address] [place] [address], [place] [address] Nov, [facility] [address] [id number] [address] [place] [address], [place] [address] October, [facility] [address] [id number] [address] [place] [address], [place] [address] October, [facility] [address] [id number] [address] [place] [address], [place] [address] October, [facility] [address] [id number] [address] [place] [address], [place] [address] October, [facility] [address] [id number] [address] [place] [address], [place] [address] October, [facility] [address] [id number] [address] [place] [address], [place] [address] Sep, [facility] [address] [id number] [address] [place] [address], [place] [address] Sep, [facility] [address] [id number] [address] [place] [address], [place] [address] Sep, [facility] [address] [id number] [address] [place] [address], [place] [address] Sep, [facility] [address] [id number] [address] [place] [address], [place] [address] Sep, [facility] [address] [id number] [address] [place] [address], [place] [address] Sep, [facility] [address] [id number] [address] [place] [address], [place] [address] Sep, [facility] [address] [id number] [address] [place] [address], [place] [address] Aug, [facility] [address] [id number] [address] [place] [address], [place] [address] Aug, [facility] [address] [id number] [address] [place] [address], [place] [address] Aug, [facility] [address] [id number] [address] [place] [address], [place] [address] 21 Aug, 2011 [facility] [address] [id number] [address] [place] [address], [place] [address] 20 Aug, 2011 [facility] [address] [id number] [address] [place] [address], [place] [address] 19 Aug, 2011 [facility] [address] [id number] [address] [place] [address], [place] [address] 16 Aug, 2011 [facility] [address] [id number] [address] [place] [address], [place] [address] 15 Aug, 2011 [facility] [address] [id number] [address] [place] [address], [place] [address] 15 Aug, 2011 [facility] [address] [id number] [address] [place] [address], [place] [address] 14 Aug, 2011 [facility] [address] [id number] [address] [place] [address], [place] [address] 12 Aug, 2011 [facility] [address] [id number] [address] [place] [address], [place] [address] 08 Aug, 2011 [facility] [address] [id number] [address] [place] [address], [place] [address] 15 Jul, 2011 [facility] [address] [id number] [address] [place] [address], [place] [address] 15 Jul, 2011 [facility] [address] [id number] [address] [place] [address], [place] [address] 14 Jul, 2011 [facility] [address] [id number] [address] [place] [address], [place] [address] 06 Jul, 2011 [facility] [address] [id number] [address] [place] [address], [place] [address] 02 Jul, 2011 [facility] [address] [id number] [address] [place] [address], [place] [address] 18 Jun, 2011 [facility] [address] [id number] [address] [place] [address], [place] [address] Jun, [facility] [address] [id number] [address] [place] [address], [place] [address] Jun, [facility] [address] [id number] [address] [place] [address], [place] [address] May, [facility] [address] [id number] [address] [place] [address], [place] [address] May, [facility] [address] [id number] [address] [place] [address], [place] [address] May, [facility] [address] [id number] [address] [place] [address], [place] [address] May, [facility] [address] [id number] [address] [place] [address], [place] [address] May, [facility] [address] [id number] [address] [place] [address], [place] [address] 16 Apr, 2011 [facility] [address] [id number] [address] [place] [address], [place] [address] 16 Apr, 2011 [facility] [address] [id number] [address] [place] [address], [place] [address] 15 Apr, 2011 [facility] [address] [id number] [address] [place] [id number] 14 Apr, 2011 [facility] [address] [id number] [address] [place] [id number] 25 Mar, 2011 [facility] [address] [id number] [address] [place] [id number] 24 Mar, 2011 [facility] [address] [id number] [address] [place] [address], [place] [id number] Mar, [facility] [address] [id number] [address] [place] [id number] 19 Mar, 2011 [facility] [address] [id number] [address] [place] [id number] 17 Mar, 2011 [facility] [address] [id number] [address] [place] [id number] 17 Mar, 2011 [facility] [address] [id number] [address] [place] [id number] 16 Feb, 2011 [facility] [address] [id number] [address] [place] [id number] Nov, [facility] [address] [id number] [address] [place] [phone] Aug, [facility] [address] [id number] [address] [place] [id number] Apr, [facility] [address] [id number] [address] [place] [id number] Mar, [facility] [address] [id number] [address] [place] [id number] Apr, [facility] [address] [facility] [id number] [address] [place] [id number] Apr, [facility] [address] [id number] [address] [place] [id number] Sep, [facility] [address] [id number] [address] [place] [id number] Mar, IMMUNIZATIONS No Known Immunizations SOCIAL HISTORY Never Assessed REASON FOR VISIT [facility] PLAN OF CARE VITAL SIGNS MEDICATIONS No [...] ER for Kidney pain/Stones 06/19/18 Hospitalization History [facility] X4 days 9
--- OUTSIDE RECORDS SUMMARY | 2019-12-26 11:12 | XMS REPORT ---
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 [address] 20 Jul, 2012 [facility] [address] [id number] [address] [place] [address], [place] [address] 15 Jul, 2012 [facility] [address] [id number] [address] [place] [address], [place] [address] 14 Jul, 2012 [facility] [address] [id number] [address] [place] [address], [place] [address] Jul, [facility] [address] [id number] [address] [place] [address], [place] [address] Jun, [facility] [address] [id number] [address] [place] [address], [place] [address] Jun, [facility] [address] [id number] [address] [place] [address], [place] [address] Jun, [facility] [address] [id number] [address] [place] [address], [place] [address] May, [facility] [address] [id number] [address] [place] [address], [place] [address] May, [facility] [address] [id number] [address] [place] [address], [place] [address] Apr, [facility] [address] [id number] [address] [place] [address], [place] [address] Apr, [facility] [address] [id number] [address] [place] [address], [place] [address] Apr, [facility] [address] [id number] [address] [place] [address], [place] [address] Apr, [facility] [address] [id number] [address] [place] [address], [place] [address] Apr, [facility] [address] [id number] [address] [place] [address], [place] [address] Apr, [facility] [address] [id number] [address] [place] [address], [place] [address] Apr, [facility] [address] [id number] [address] [place] [address], [place] [address] Apr, [facility] [address] [id number] [address] [place] [address], [place] [address] Mar, [facility] [address] [id number] [address] [place] [address], [place] [address] Mar, [facility] [address] [id number] [address] [place] [address], [place] [address] Mar, [facility] [address] [id number] [address] [place] [address], [place] [address] Mar, [facility] [address] [id number] [address] [place] [address], [place] [address] Mar, [facility] [address] [id number] [address] [place] [address], [place] [address] Mar, [facility] [address] [id number] [address] [place] [address], [place] [address] Mar, [facility] [address] [id number] [address] [place] [address], [place] [address] Mar, [facility] [address] [id number] [address] [place] [address], [place] [address] Mar, [facility] [address] [id number] [address] [place] [address], [place] [address] Feb, [facility] [address] [id number] [address] [place] [address], [place] [address] Jan, [facility] [address] [id number] [address] [place] [address], [place] [address] Jan, [facility] [address] [id number] [address] [place] [address], [place] [address] Jan, [facility] [address] [id number] [address] [place] [address], [place] [address] Dec, [facility] [address] [id number] [address] [place] [address], [place] [address] Dec, [facility] [address] [id number] [address] [place] [address], [place] [address] Dec, [facility] [address] [id number] [address] [place] [address], [place] [address] Nov, [facility] [address] [id number] [address] [place] [address], [place] [address] October, [facility] [address] [id number] [address] [place] [address], [place] [address] October, [facility] [address] [id number] [address] [place] [address], [place] [address] October, [facility] [address] [id number] [address] [place] [address], [place] [address] October, [facility] [address] [id number] [address] [place] [address], [place] [address] October, [facility] [address] [id number] [address] [place] [address], [place] [address] Sep, [facility] [address] [id number] [address] [place] [address], [place] [address] Sep, [facility] [address] [id number] [address] [place] [address], [place] [address] Sep, [facility] [address] [id number] [address] [place] [address], [place] [address] Sep, [facility] [address] [id number] [address] [place] [address], [place] [address] Sep, [facility] [address] [id number] [address] [place] [address], [place] [address] Sep, [facility] [address] [id number] [address] [place] [address], [place] [address] Sep, [facility] [address] [id number] [address] [place] [address], [place] [address] Aug, [facility] [address] [id number] [address] [place] [address], [place] [address] Aug, [facility] [address] [id number] [address] [place] [address], [place] [address] Aug, [facility] [address] [id number] [address] [place] [address], [place] [address] 21 Aug, 2011 [facility] [address] [id number] [address] [place] [address], [place] [address] 20 Aug, 2011 [facility] [address] [id number] [address] [place] [address], [place] [address] 19 Aug, 2011 [facility] [address] [id number] [address] [place] [address], [place] [address] 16 Aug, 2011 [facility] [address] [id number] [address] [place] [address], [place] [address] 15 Aug, 2011 [facility] [address] [id number] [address] [place] [address], [place] [address] 15 Aug, 2011 [facility] [address] [id number] [address] [place] [address], [place] [address] 14 Aug, 2011 [facility] [address] [id number] [address] [place] [address], [place] [address] 12 Aug, 2011 [facility] [address] [id number] [address] [place] [address], [place] [address] 08 Aug, 2011 [facility] [address] [id number] [address] [place] [address], [place] [address] 15 Jul, 2011 [facility] [address] [id number] [address] [place] [address], [place] [address] 15 Jul, 2011 [facility] [address] [id number] [address] [place] [address], [place] [address] 14 Jul, 2011 [facility] [address] [id number] [address] [place] [address], [place] [address] 06 Jul, 2011 [facility] [address] [id number] [address] [place] [address], [place] [address] 02 Jul, 2011 [facility] [address] [id number] [address] [place] [address], [place] [address] 18 Jun, 2011 [facility] [address] [id number] [address] [place] [address], [place] [address] Jun, [facility] [address] [id number] [address] [place] [address], [place] [address] Jun, [facility] [address] [id number] [address] [place] [address], [place] [address] May, [facility] [address] [id number] [address] [place] [address], [place] [address] May, [facility] [address] [id number] [address] [place] [address], [place] [address] May, [facility] [address] [id number] [address] [place] [address], [place] [address] May, [facility] [address] [id number] [address] [place] [address], [place] [address] May, [facility] [address] [id number] [address] [place] [address], [place] [address] 16 Apr, 2011 [facility] [address] [id number] [address] [place] [address], [place] [address] 16 Apr, 2011 [facility] [address] [id number] [address] [place] [address], [place] [address] 15 Apr, 2011 [facility] [address] [id number] [address] [place] [address] 14 Apr, 2011 [facility] [address] [id number] [address] [place] [id number] 25 Mar, 2011 [facility] [address] [id number] [address] [place] [address] 24 Mar, 2011 [facility] [address] [id number] [address] [place] [address], [place] [address] Mar, [facility] [address] [id number] [address] [place] [address] 19 Mar, 2011 [facility] [address] [id number] [address] [place] [id number] 17 Mar, 2011 [facility] [address] [id number] [address] [place] [phone] 17 Mar, 2011 [facility] [address] [id number] [address] [place] [id number] 16 Feb, 2011 [facility] [address] [id number] [address] [place] [phone] Nov, [facility] [address] [id number] [address] [place] [id number] Aug, [facility] [address] [id number] [address] [place] [phone] Apr, [facility] [address] [id number] [address] [place] [id number] Mar, [facility] [address] [id number] [address] [place] [phone] Apr, [facility] [address] [facility] [id number] [address] [place] [phone] Apr, [facility] [address] [id number] [address] [place] [phone] Sep, [facility] [address] [id number] [address] [place] [phone] Mar, IMMUNIZATIONS No Known Immunizations SOCIAL HISTORY Never Assessed [place]AS[place] FOR [place] [facility] [place] VITAL SIGNS MEDICATIONS No [...] for Kidney pain/Stones 06/19/18 Hospitalization History [facility] [place] 9
--- OUTSIDE RECORDS SUMMARY | 2019-12-26 11:12 | XMS REPORT ---
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 [address] [place] [address], [place] [address] Jul, [facility] [address] [id number] [address] [place] [address], [place] [address] Jul, [facility] [address] [id number] [address] [place] [address], [place] [address] 23 Jul, 2012 [facility] [address] [id number] [address] [place] [address], [place] [address] 20 Jul, 2012 [facility] [address] [id number] [address] [place] [address], [place] [address] 15 Jul, 2012 [facility] [address] [id number] [address] [place] [address], [place] [address] 14 Jul, 2012 [facility] [address] [id number] [address] [place] [address], [place] [address] Jul, [facility] [address] [id number] [address] [place] [address], [place] [address] Jun, [facility] [address] [id number] [address] [place] [address], [place] [address] Jun, [facility] [address] [id number] [address] [place] [address], [place] [address] Jun, [facility] [address] [id number] [address] [place] [address], [place] [address] May, [facility] [address] [id number] [address] [place] [address], [place] [address] May, [facility] [address] [id number] [address] [place] [address], [place] [address] Apr, [facility] [address] [id number] [address] [place] [address], [place] [address] Apr, [facility] [address] [id number] [address] [place] [address], [place] [address] Apr, [facility] [address] [id number] [address] [place] [address], [place] [address] Apr, [facility] [address] [id number] [address] [place] [address], [place] [address] Apr, [facility] [address] [id number] [address] [place] [address], [place] [address] Apr, [facility] [address] [id number] [address] [place] [address], [place] [address] Apr, [facility] [address] [id number] [address] [place] [address], [place] [address] Apr, [facility] [address] [id number] [address] [place] [address], [place] [address] Mar, [facility] [address] [id number] [address] [place] [address], [place] [address] Mar, [facility] [address] [id number] [address] [place] [address], [place] [address] Mar, [facility] [address] [id number] [address] [place] [address], [place] [address] Mar, [facility] [address] [id number] [address] [place] [address], [place] [address] Mar, [facility] [address] [id number] [address] [place] [address], [place] [address] Mar, [facility] [address] [id number] [address] [place] [address], [place] [address] Mar, [facility] [address] [id number] [address] [place] [address], [place] [address] Mar, [facility] [address] [id number] [address] [place] [address], [place] [address] Mar, [facility] [address] [id number] [address] [place] [address], [place] [address] Feb, [facility] [address] [id number] [address] [place] [address], [place] [address] Jan, [facility] [address] [id number] [address] [place] [address], [place] [address] Jan, [facility] [address] [id number] [address] [place] [address], [place] [address] Jan, [facility] [address] [id number] [address] [place] [address], [place] [address] Dec, [facility] [address] [id number] [address] [place] [address], [place] [address] Dec, [facility] [address] [id number] [address] [place] [address], [place] [address] Dec, [facility] [address] [id number] [address] [place] [address], [place] [address] Nov, [facility] [address] [id number] [address] [place] [address], [place] [address] October, [facility] [address] [id number] [address] [place] [address], [place] [address] October, [facility] [address] [id number] [address] [place] [address], [place] [address] October, [facility] [address] [id number] [address] [place] [address], [place] [address] October, [facility] [address] [id number] [address] [place] [address], [place] [address] October, [facility] [address] [id number] [address] [place] [address], [place] [address] Sep, [facility] [address] [id number] [address] [place] [address], [place] [address] Sep, [facility] [address] [id number] [address] [place] [address], [place] [address] Sep, [facility] [address] [id number] [address] [place] [address], [place] [address] Sep, [facility] [address] [id number] [address] [place] [address], [place] [address] Sep, [facility] [address] [id number] [address] [place] [address], [place] [address] Sep, [facility] [address] [id number] [address] [place] [address], [place] [address] Sep, [facility] [address] [id number] [address] [place] [address], [place] [address] Aug, [facility] [address] [id number] [address] [place] [address], [place] [address] Aug, [facility] [address] [id number] [address] [place] [address], [place] [address] Aug, [facility] [address] [id number] [address] [place] [address], [place] [address] 21 Aug, 2011 [facility] [address] [id number] [address] [place] [address], [place] [address] 20 Aug, 2011 [facility] [address] [id number] [address] [place] [address], [place] [address] 19 Aug, 2011 [facility] [address] [id number] [address] [place] [address], [place] [address] 16 Aug, 2011 [facility] [address] [id number] [address] [place] [address], [place] [address] 15 Aug, 2011 [facility] [address] [id number] [address] [place] [address], [place] [address] 15 Aug, 2011 [facility] [address] [id number] [address] [place] [address], [place] [address] 14 Aug, 2011 [facility] [address] [id number] [address] [place] [address], [place] [address] 12 Aug, 2011 [facility] [address] [id number] [address] [place] [address], [place] [address] 08 Aug, 2011 [facility] [address] [id number] [address] [place] [address], [place] [address] 15 Jul, 2011 [facility] [address] [id number] [address] [place] [address], [place] [address] 15 Jul, 2011 [facility] [address] [id number] [address] [place] [address], [place] [address] 14 Jul, 2011 [facility] [address] [id number] [address] [place] [address], [place] [address] 06 Jul, 2011 [facility] [address] [id number] [address] [place] [address], [place] [address] 02 Jul, 2011 [facility] [address] [id number] [address] [place] [address], [place] [address] 18 Jun, 2011 [facility] [address] [id number] [address] [place] [address], [place] [address] Jun, [facility] [address] [id number] [address] [place] [address], [place] [address] Jun, [facility] [address] [id number] [address] [place] [address], [place] [address] May, [facility] [address] [id number] [address] [place] [address], [place] [address] May, [facility] [address] [id number] [address] [place] [address], [place] [address] May, [facility] [address] [id number] [address] [place] [address], [place] [address] May, [facility] [address] [id number] [address] [place] [address], [place] [address] May, [facility] [address] [id number] [address] [place] [address], [place] [address] 16 Apr, 2011 [facility] [address] [id number] [address] [place] [address], [place] [address] 16 Apr, 2011 [facility] [address] [id number] [address] [place] [address], [place] [address] 15 Apr, 2011 [facility] [address] [id number] [address] [place] [id number] 14 Apr, 2011 [facility] [address] [id number] [address] [place] [id number] 25 Mar, 2011 [facility] [address] [id number] [address] [place] [id number] 24 Mar, 2011 [facility] [address] [id number] [address] [place] [address], [place] [address] Mar, [facility] [address] [id number] [address] [place] [id number] 19 Mar, 2011 [facility] [address] [id number] [address] [place] [id number] 17 Mar, 2011 [facility] [address] [id number] [address] [place] [id number] 17 Mar, 2011 [facility] [place] [address] [id number] [address] [place] [id number] 16 Feb, 2011 [facility] [place] [address] [id number] [address] [place] [id number] Nov, [facility] [place] [address] [id number] [address] [place] [id number] Aug, [facility] [place] [address] [id number] [address] [place] [id number] Apr, [facility] [place] [address] [id number] [address] [place] [id number] Mar, [facility] [place] [address] [id number] [address] [place] [id number] Apr, [facility] [place] [address] [facility] [id number] [address] [place] [id number] Apr, [facility] [place] [address] [id number] [address] [place] [id number] Sep, [facility] [place] [address] [id number] [address] [place] [phone] Mar, IMMUNIZATIONS No Known Immunizations SOCIAL HISTORY Never Assessed REASON FOR VISIT [facility] PLAN OF CARE VITAL SIGNS MEDICATIONS No [...]
--- OUTSIDE RECORDS SUMMARY | 2019-12-26 11:12 | XMS REPORT ---
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 [address], [place] [address] 20 Jul, 2012 [facility] [address] [id number] [address] [place] [address], [place] [address] 15 Jul, 2012 [facility] [address] [id number] [address] [place] [address], [place] [address] 14 Jul, 2012 [facility] [address] [id number] [address] [place] [address], [place] [address] Jul, [facility] [address] [id number] [address] [place] [address], [place] [address] Jun, [facility] [address] [id number] [address] [place] [address], [place] [address] Jun, [facility] [address] [id number] [address] [place] [address], [place] [address] Jun, [facility] [address] [id number] [address] [place] [address], [place] [address] May, [facility] [address] [id number] [address] [place] [address], [place] [address] May, [facility] [address] [id number] [address] [place] [address], [place] [address] Apr, [facility] [address] [id number] [address] [place] [address], [place] [address] Apr, [facility] [address] [id number] [address] [place] [address], [place] [address] Apr, [facility] [address] [id number] [address] [place] [address], [place] [address] Apr, [facility] [address] [id number] [address] [place] [address], [place] [address] Apr, [facility] [address] [id number] [address] [place] [address], [place] [address] Apr, [facility] [address] [id number] [address] [place] [address], [place] [address] Apr, [facility] [address] [id number] [address] [place] [address], [place] [address] Apr, [facility] [address] [id number] [address] [place] [address], [place] [address] Mar, [facility] [address] [id number] [address] [place] [address], [place] [address] Mar, [facility] [address] [id number] [address] [place] [address], [place] [address] Mar, [facility] [address] [id number] [address] [place] [address], [place] [address] Mar, [facility] [address] [id number] [address] [place] [address], [place] [address] Mar, [facility] [address] [id number] [address] [place] [address], [place] [address] Mar, [facility] [address] [id number] [address] [place] [address], [place] [address] Mar, [facility] [address] [id number] [address] [place] [address], [place] [address] Mar, [facility] [address] [id number] [address] [place] [address], [place] [address] Mar, [facility] [address] [id number] [address] [place] [address], [place] [address] Feb, [facility] [address] [id number] [address] [place] [address], [place] [address] Jan, [facility] [address] [id number] [address] [place] [address], [place] [address] Jan, [facility] [address] [id number] [address] [place] [address], [place] [address] Jan, [facility] [address] [id number] [address] [place] [address], [place] [address] Dec, [facility] [address] [id number] [address] [place] [address], [place] [address] Dec, [facility] [address] [id number] [address] [place] [address], [place] [address] Dec, [facility] [address] [id number] [address] [place] [address], [place] [address] Nov, [facility] [address] [id number] [address] [place] [address], [place] [address] October, [facility] [address] [id number] [address] [place] [address], [place] [address] October, [facility] [address] [id number] [address] [place] [address], [place] [address] October, [facility] [address] [id number] [address] [place] [address], [place] [address] October, [facility] [address] [id number] [address] [place] [address], [place] [address] October, [facility] [address] [id number] [address] [place] [address], [place] [address] Sep, [facility] [address] [id number] [address] [place] [address], [place] [address] Sep, [facility] [address] [id number] [address] [place] [address], [place] [address] Sep, [facility] [address] [id number] [address] [place] [address], [place] [address] Sep, [facility] [address] [id number] [address] [place] [address], [place] [address] Sep, [facility] [address] [id number] [address] [place] [address], [place] [address] Sep, [facility] [address] [id number] [address] [place] [address], [place] [address] Sep, [facility] [address] [id number] [address] [place] [address], [place] [address] Aug, [facility] [address] [id number] [address] [place] [address], [place] [address] Aug, [facility] [address] [id number] [address] [place] [address], [place] [address] Aug, [facility] [address] [id number] [address] [place] [address], [place] [address] 21 Aug, 2011 [facility] [address] [id number] [address] [place] [address], [place] [address] 20 Aug, 2011 [facility] [address] [id number] [address] [place] [address], [place] [address] 19 Aug, 2011 [facility] [address] [id number] [address] [place] [address], [place] [address] 16 Aug, 2011 [facility] [address] [id number] [address] [place] [address], [place] [address] 15 Aug, 2011 [facility] [address] [id number] [address] [place] [address], [place] [address] 15 Aug, 2011 [facility] [address] [id number] [address] [place] [address], [place] [address] 14 Aug, 2011 [facility] [address] [id number] [address] [place] [address], [place] [address] 12 Aug, 2011 [facility] [address] [id number] [address] [place] [address], [place] [address] 08 Aug, 2011 [facility] [address] [id number] [address] [place] [address], [place] [address] 15 Jul, 2011 [facility] [address] [id number] [address] [place] [address], [place] [address] 15 Jul, 2011 [facility] [address] [id number] [address] [place] [address], [place] [address] 14 Jul, 2011 [facility] [address] [id number] [address] [place] [address], [place] [address] 06 Jul, 2011 [facility] [address] [id number] [address] [place] [address], [place] [address] 02 Jul, 2011 [facility] [address] [id number] [address] [place] [address], [place] [address] 18 Jun, 2011 [facility] [address] [id number] [address] [place] [address], [place] [address] Jun, [facility] [address] [id number] [address] [place] [address], [place] [address] Jun, [facility] [address] [id number] [address] [place] [address], [place] [address] May, [facility] [address] [id number] [address] [place] [address], [place] [address] May, [facility] [address] [id number] [address] [place] [address], [place] [address] May, [facility] [address] [id number] [address] [place] [address], [place] [address] May, [facility] [address] [id number] [address] [place] [address], [place] [address] May, [facility] [address] [id number] [address] [place] [address], [place] [address] 16 Apr, 2011 [facility] [address] [id number] [address] [place] [address], [place] [address] 16 Apr, 2011 [facility] [address] [id number] [address] [place] [address], [place] [address] 15 Apr, 2011 [facility] [address] [id number] [address] [place] [address] 14 Apr, 2011 [facility] [address] [id number] [address] [place] [address] 25 Mar, 2011 [facility] [address] [id number] [address] [place] [address] 24 Mar, 2011 [facility] [address] [id number] [address] [place] [address], [place] [phone] Mar, [facility] [address] [id number] [address] [place] [phone] 19 Mar, 2011 [facility] [address] [id number] [address] [place] [phone] 17 Mar, 2011 [facility] [address] [id number] [address] [place] [phone] 17 Mar, 2011 [facility] [address] [id number] [address] [place] [phone] 16 Feb, 2011 [facility] [address] [id number] [address] [place] [phone] Nov, [facility] [address] [id number] [address] [place] [phone] Aug, [facility] [address] [id number] [address] [place] [phone] Apr, [facility] [address] [id number] [address] [place] [phone] Mar, [facility] [address] [id number] [address] [place] [phone] Apr, [facility] [address] [facility] [id number] [address] [place] [phone] Apr, [facility] [address] [id number] [address] [place] [phone] Sep, [facility] [address] [id number] [address] [place] [phone] Mar, IMMUNIZATIONS No Known Immunizations SOCIAL HISTORY Never Assessed REASON FOR VISIT [facility] [place] PLAN OF CARE VITAL SIGNS MEDICATIONS [...] ER for Kidney pain/Stones 06/19/18 Hospitalization History [facility] X4 days 9
--- OUTSIDE RECORDS SUMMARY | 2019-12-26 11:13 | XMS REPORT ---
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 Jul, [facility] [address] [id number] [address] [place] [address], [place] [address] 23 Jul, 2012 [facility] [address] [id number] [address] [place] [address], [place] [address] 20 Jul, 2012 [facility] [address] [id number] [address] [place] [address], [place] [address] 15 Jul, 2012 [facility] [address] [id number] [address] [place] [address], [place] [address] 14 Jul, 2012 [facility] [address] [id number] [address] [place] [address], [place] [address] Jul, [facility] [address] [id number] [address] [place] [address], [place] [address] Jun, [facility] [address] [id number] [address] [place] [address], [place] [address] Jun, [facility] [address] [id number] [address] [place] [address], [place] [address] Jun, [facility] [address] [id number] [address] [place] [address], [place] [address] May, [facility] [address] [id number] [address] [place] [address], [place] [address] May, [facility] [address] [id number] [address] [place] [address], [place] [address] Apr, [facility] [address] [id number] [address] [place] [address], [place] [address] Apr, [facility] [address] [id number] [address] [place] [address], [place] [address] Apr, [facility] [address] [id number] [address] [place] [address], [place] [address] Apr, [facility] [address] [id number] [address] [place] [address], [place] [address] Apr, [facility] [address] [id number] [address] [place] [address], [place] [address] Apr, [facility] [address] [id number] [address] [place] [address], [place] [address] Apr, [facility] [address] [id number] [address] [place] [address], [place] [address] Apr, [facility] [address] [id number] [address] [place] [address], [place] [address] Mar, [facility] [address] [id number] [address] [place] [address], [place] [address] Mar, [facility] [address] [id number] [address] [place] [address], [place] [address] Mar, [facility] [address] [id number] [address] [place] [address], [place] [address] Mar, [facility] [address] [id number] [address] [place] [address], [place] [address] Mar, [facility] [address] [id number] [address] [place] [address], [place] [address] Mar, [facility] [address] [id number] [address] [place] [address], [place] [address] Mar, [facility] [address] [id number] [address] [place] [address], [place] [address] Mar, [facility] [address] [id number] [address] [place] [address], [place] [address] Mar, [facility] [address] [id number] [address] [place] [address], [place] [address] Feb, [facility] [address] [id number] [address] [place] [address], [place] [address] Jan, [facility] [address] [id number] [address] [place] [address], [place] [address] Jan, [facility] [address] [id number] [address] [place] [address], [place] [address] Jan, [facility] [address] [id number] [address] [place] [address], [place] [address] Dec, [facility] [address] [id number] [address] [place] [address], [place] [address] Dec, [facility] [address] [id number] [address] [place] [address], [place] [address] Dec, [facility] [address] [id number] [address] [place] [address], [place] [address] Nov, [facility] [address] [id number] [address] [place] [address], [place] [address] October, [facility] [address] [id number] [address] [place] [address], [place] [address] October, [facility] [address] [id number] [address] [place] [address], [place] [address] October, [facility] [address] [id number] [address] [place] [address], [place] [address] October, [facility] [address] [id number] [address] [place] [address], [place] [address] October, [facility] [address] [id number] [address] [place] [address], [place] [address] Sep, [facility] [address] [id number] [address] [place] [address], [place] [address] Sep, [facility] [address] [id number] [address] [place] [address], [place] [address] Sep, [facility] [address] [id number] [address] [place] [address], [place] [address] Sep, [facility] [address] [id number] [address] [place] [address], [place] [address] Sep, [facility] [address] [id number] [address] [place] [address], [place] [address] Sep, [facility] [address] [id number] [address] [place] [address], [place] [address] Sep, [facility] [address] [id number] [address] [place] [address], [place] [address] Aug, [facility] [address] [id number] [address] [place] [address], [place] [address] Aug, [facility] [address] [id number] [address] [place] [address], [place] [address] Aug, [facility] [address] [id number] [address] [place] [address], [place] [address] 21 Aug, 2011 [facility] [address] [id number] [address] [place] [address], [place] [address] 20 Aug, 2011 [facility] [address] [id number] [address] [place] [address], [place] [address] 19 Aug, 2011 [facility] [address] [id number] [address] [place] [address], [place] [address] 16 Aug, 2011 [facility] [address] [id number] [address] [place] [address], [place] [address] 15 Aug, 2011 [facility] [address] [id number] [address] [place] [address], [place] [address] 15 Aug, 2011 [facility] [address] [id number] [address] [place] [address], [place] [address] 14 Aug, 2011 [facility] [address] [id number] [address] [place] [address], [place] [address] 12 Aug, 2011 [facility] [address] [id number] [address] [place] [address], [place] [address] 08 Aug, 2011 [facility] [address] [id number] [address] [place] [address], [place] [address] 15 Jul, 2011 [facility] [address] [id number] [address] [place] [address], [place] [address] 15 Jul, 2011 [facility] [address] [id number] [address] [place] [address], [place] [address] 14 Jul, 2011 [facility] [address] [id number] [address] [place] [address], [place] [address] 06 Jul, 2011 [facility] [address] [id number] [address] [place] [address], [place] [address] 02 Jul, 2011 [facility] [address] [id number] [address] [place] [address], [place] [address] 18 Jun, 2011 [facility] [address] [id number] [address] [place] [address], [place] [address] Jun, [facility] [address] [id number] [address] [place] [address], [place] [address] Jun, [facility] [address] [id number] [address] [place] [address], [place] [address] May, [facility] [address] [id number] [address] [place] [address], [place] [address] May, [facility] [address] [id number] [address] [place] [address], [place] [address] May, [facility] [address] [id number] [address] [place] [address], [place] [address] May, [facility] [address] [id number] [address] [place] [address], [place] [address] May, [facility] [address] [id number] [address] [place] [address], [place] [address] 16 Apr, 2011 [facility] [address] [id number] [address] [place] [address], [place] [address] 16 Apr, 2011 [facility] [address] [id number] [address] [place] [address], [place] [address] 15 Apr, 2011 [facility] [address] [id number] [address] [place] [id number] 14 Apr, 2011 [facility] [address] [id number] [address] [place] [id number] 25 Mar, 2011 [facility] [address] [id number] [address] [place] [id number] 24 Mar, 2011 [facility] [address] [id number] [address] [place] [address], [place] [address] Mar, [facility] [address] [id number] [address] [place] [id number] 19 Mar, 2011 [facility] [address] [id number] [address] [place] [id number] 17 Mar, 2011 [facility] [address] [id number] [address] [place] [id number] 17 Mar, 2011 [facility] [address] [id number] [address] [place] [id number] 16 Feb, 2011 [facility] [address] [id number] [address] [place] [id number] Nov, [facility] [address] [id number] [address] [place] [id number] Aug, [facility] [address] [id number] [address] [place] [id number] Apr, [facility] [address] [id number] [address] [place] [id number] Mar, [facility] [address] [id number] [address] [place] [phone] Apr, [facility] [address] [facility] [facility] [id number] [address] [place] [id number] Apr, [facility] [address] [id number] [address] [place] [phone] Sep, [facility] [address] [id number] [address] [place] [phone] Mar, IMMUNIZATIONS No Known Immunizations SOCIAL HISTORY Never Assessed REASON FOR VISIT [facility] PLAN [...] Hospitalization [facility] X4 days 9
--- OUTSIDE RECORDS SUMMARY | 2019-12-26 11:13 | XMS REPORT ---
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 [place] [address] 23 Jul, 2012 [facility] [address] [id number] [address] [place] [address], [place] [address] 20 Jul, 2012 [facility] [address] [id number] [address] [place] [address], [place] [address] 15 Jul, 2012 [facility] [address] [id number] [address] [place] [address], [place] [address] 14 Jul, 2012 [facility] [address] [id number] [address] [place] [address], [place] [address] Jul, [facility] [address] [id number] [address] [place] [address], [place] [address] Jun, [facility] [address] [id number] [address] [place] [address], [place] [address] Jun, [facility] [address] [id number] [address] [place] [address], [place] [address] Jun, [facility] [address] [id number] [address] [place] [address], [place] [address] May, [facility] [address] [id number] [address] [place] [address], [place] [address] May, [facility] [address] [id number] [address] [place] [address], [place] [address] Apr, [facility] [address] [id number] [address] [place] [address], [place] [address] Apr, [facility] [address] [id number] [address] [place] [address], [place] [address] Apr, [facility] [address] [id number] [address] [place] [address], [place] [address] Apr, [facility] [address] [id number] [address] [place] [address], [place] [address] Apr, [facility] [address] [id number] [address] [place] [address], [place] [address] Apr, [facility] [address] [id number] [address] [place] [address], [place] [address] Apr, [facility] [address] [id number] [address] [place] [address], [place] [address] Apr, [facility] [address] [id number] [address] [place] [address], [place] [address] Mar, [facility] [address] [id number] [address] [place] [address], [place] [address] Mar, [facility] [address] [id number] [address] [place] [address], [place] [address] Mar, [facility] [address] [id number] [address] [place] [address], [place] [address] Mar, [facility] [address] [id number] [address] [place] [address], [place] [address] Mar, [facility] [address] [id number] [address] [place] [address], [place] [address] Mar, [facility] [address] [id number] [address] [place] [address], [place] [address] Mar, [facility] [address] [id number] [address] [place] [address], [place] [address] Mar, [facility] [address] [id number] [address] [place] [address], [place] [address] Mar, [facility] [address] [id number] [address] [place] [address], [place] [address] Feb, [facility] [address] [id number] [address] [place] [address], [place] [address] Jan, [facility] [address] [id number] [address] [place] [address], [place] [address] Jan, [facility] [address] [id number] [address] [place] [address], [place] [address] Jan, [facility] [address] [id number] [address] [place] [address], [place] [address] Dec, [facility] [address] [id number] [address] [place] [address], [place] [address] Dec, [facility] [address] [id number] [address] [place] [address], [place] [address] Dec, [facility] [address] [id number] [address] [place] [address], [place] [address] Nov, [facility] [address] [id number] [address] [place] [address], [place] [address] October, [facility] [address] [id number] [address] [place] [address], [place] [address] October, [facility] [address] [id number] [address] [place] [address], [place] [address] October, [facility] [address] [id number] [address] [place] [address], [place] [address] October, [facility] [address] [id number] [address] [place] [address], [place] [address] October, [facility] [address] [id number] [address] [place] [address], [place] [address] Sep, [facility] [address] [id number] [address] [place] [address], [place] [address] Sep, [facility] [address] [id number] [address] [place] [address], [place] [address] Sep, [facility] [address] [id number] [address] [place] [address], [place] [address] Sep, [facility] [address] [id number] [address] [place] [address], [place] [address] Sep, [facility] [address] [id number] [address] [place] [address], [place] [address] Sep, [facility] [address] [id number] [address] [place] [address], [place] [address] Sep, [facility] [address] [id number] [address] [place] [address], [place] [address] Aug, [facility] [address] [id number] [address] [place] [address], [place] [address] Aug, [facility] [address] [id number] [address] [place] [address], [place] [address] Aug, [facility] [address] [id number] [address] [place] [address], [place] [address] 21 Aug, 2011 [facility] [address] [id number] [address] [place] [address], [place] [address] 20 Aug, 2011 [facility] [address] [id number] [address] [place] [address], [place] [address] 19 Aug, 2011 [facility] [address] [id number] [address] [place] [address], [place] [address] 16 Aug, 2011 [facility] [address] [id number] [address] [place] [address], [place] [address] 15 Aug, 2011 [facility] [address] [id number] [address] [place] [address], [place] [address] 15 Aug, 2011 [facility] [address] [id number] [address] [place] [address], [place] [address] 14 Aug, 2011 [facility] [address] [id number] [address] [place] [address], [place] [address] 12 Aug, 2011 [facility] [address] [id number] [address] [place] [address], [place] [address] 08 Aug, 2011 [facility] [address] [id number] [address] [place] [address], [place] [address] 15 Jul, 2011 [facility] [address] [id number] [address] [place] [address], [place] [address] 15 Jul, 2011 [facility] [address] [id number] [address] [place] [address], [place] [address] 14 Jul, 2011 [facility] [address] [id number] [address] [place] [address], [place] [address] 06 Jul, 2011 [facility] [address] [id number] [address] [place] [address], [place] [address] 02 Jul, 2011 [facility] [address] [id number] [address] [place] [address], [place] [address] 18 Jun, 2011 [facility] [address] [id number] [address] [place] [address], [place] [address] Jun, [facility] [address] [id number] [address] [place] [address], [place] [address] Jun, [facility] [address] [id number] [address] [place] [address], [place] [address] May, [facility] [address] [id number] [address] [place] [address], [place] [address] May, [facility] [address] [id number] [address] [place] [address], [place] [address] May, [facility] [address] [id number] [address] [place] [address], [place] [address] May, [facility] [address] [id number] [address] [place] [address], [place] [address] May, [facility] [address] [id number] [address] [place] [address], [place] [address] 16 Apr, 2011 [facility] [address] [id number] [address] [place] [address], [place] [address] 16 Apr, 2011 [facility] [address] [id number] [address] [place] [address], [place] [address] 15 Apr, 2011 [facility] [address] [id number] [address] [place] [address] 14 Apr, 2011 [facility] [address] [id number] [address] [place] [address] 25 Mar, 2011 [facility] [address] [id number] [address] [place] [address] 24 Mar, 2011 [facility] [address] [id number] [address] [place] [address], [place] [address] Mar, [facility] [address] [id number] [address] [place] [address] 19 Mar, 2011 [facility] [address] [id number] [address] [place] [id number] 17 Mar, 2011 [facility] [address] [id number] [address] [place] [phone] 17 Mar, 2011 [facility] [address] [id number] [address] [place] [phone] 16 Feb, 2011 [facility] [address] [id number] [address] [place] [phone] Nov, [facility] [address] [id number] [address] [place] [id number] Aug, [facility] [address] [id number] [address] [place] [phone] Apr, [facility] [address] [id number] [address] [place] [phone] Mar, [facility] [address] [id number] [address] [place] [id number] Apr, [facility] [address] [facility] [id number] [address] [place] [phone] Apr, [facility] [address] [id number] [address] [place] [phone] Sep, [facility] [address] [id number] [address] [place] [phone] Mar, IMMUNIZATIONS No Known Immunizations SOCIAL HISTORY Never Assessed REASON FOR VISIT [facility] PLAN OF CARE VITAL SIGNS MEDICATIONS No [...] ER for Kidney pain/Stones 06/19/18 Hospitalization History [facility] X4 days 9
--- OUTSIDE RECORDS SUMMARY | 2019-12-26 11:13 | XMS REPORT ---
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 [id number] [address] [place] [address], [place] [address] Jul, [facility] [address] [id number] [address] [place] [address], [place] [address] Jul, [facility] [address] [id number] [address] [place] [address], [place] [address] 26 Jul, 2012 [facility] [address] [id number] [address] [place] [address], [place] [address] Jul, [facility] [address] [id number] [address] [place] [address], [place] [address] Jul, [facility] [address] [id number] [address] [place] [address], [place] [address] 23 Jul, 2012 [facility] [address] [id number] [address] [place] [address], [place] [address] 20 Jul, 2012 [facility] [address] [id number] [address] [place] [address], [place] [address] 15 Jul, 2012 [facility] [address] [id number] [address] [place] [address], [place] [address] 14 Jul, 2012 [facility] [address] [id number] [address] [place] [address], [place] [address] Jul, [facility] [address] [id number] [address] [place] [address], [place] [address] Jun, [facility] [address] [id number] [address] [place] [address], [place] [address] Jun, [facility] [address] [id number] [address] [place] [address], [place] [address] Jun, [facility] [address] [id number] [address] [place] [address], [place] [address] May, [facility] [address] [id number] [address] [place] [address], [place] [address] May, [facility] [address] [id number] [address] [place] [address], [place] [address] Apr, [facility] [address] [id number] [address] [place] [address], [place] [address] Apr, [facility] [address] [id number] [address] [place] [address], [place] [address] Apr, [facility] [address] [id number] [address] [place] [address], [place] [address] Apr, [facility] [address] [id number] [address] [place] [address], [place] [address] Apr, [facility] [address] [id number] [address] [place] [address], [place] [address] Apr, [facility] [address] [id number] [address] [place] [address], [place] [address] Apr, [facility] [address] [id number] [address] [place] [address], [place] [address] Apr, [facility] [address] [id number] [address] [place] [address], [place] [address] Mar, [facility] [address] [id number] [address] [place] [address], [place] [address] Mar, [facility] [address] [id number] [address] [place] [address], [place] [address] Mar, [facility] [address] [id number] [address] [place] [address], [place] [address] Mar, [facility] [address] [id number] [address] [place] [address], [place] [address] Mar, [facility] [address] [id number] [address] [place] [address], [place] [address] Mar, [facility] [address] [id number] [address] [place] [address], [place] [address] Mar, [facility] [address] [id number] [address] [place] [address], [place] [address] Mar, [facility] [address] [id number] [address] [place] [address], [place] [address] Mar, [facility] [address] [id number] [address] [place] [address], [place] [address] Feb, [facility] [address] [id number] [address] [place] [address], [place] [address] Jan, [facility] [address] [id number] [address] [place] [address], [place] [address] Jan, [facility] [address] [id number] [address] [place] [address], [place] [address] Jan, [facility] [address] [id number] [address] [place] [address], [place] [address] Dec, [facility] [address] [id number] [address] [place] [address], [place] [address] Dec, [facility] [address] [id number] [address] [place] [address], [place] [address] Dec, [facility] [address] [id number] [address] [place] [address], [place] [address] Nov, [facility] [address] [id number] [address] [place] [address], [place] [address] October, [facility] [address] [id number] [address] [place] [address], [place] [address] October, [facility] [address] [id number] [address] [place] [address], [place] [address] October, [facility] [address] [id number] [address] [place] [address], [place] [address] October, [facility] [address] [id number] [address] [place] [address], [place] [address] October, [facility] [address] [id number] [address] [place] [address], [place] [address] Sep, [facility] [address] [id number] [address] [place] [address], [place] [address] Sep, [facility] [address] [id number] [address] [place] [address], [place] [address] Sep, [facility] [address] [id number] [address] [place] [address], [place] [address] Sep, [facility] [address] [id number] [address] [place] [address], [place] [address] Sep, [facility] [address] [id number] [address] [place] [address], [place] [address] Sep, [facility] [address] [id number] [address] [place] [address], [place] [address] Sep, [facility] [address] [id number] [address] [place] [address], [place] [address] Aug, [facility] [address] [id number] [address] [place] [address], [place] [address] Aug, [facility] [address] [id number] [address] [place] [address], [place] [address] Aug, [facility] [address] [id number] [address] [place] [address], [place] [address] 21 Aug, 2011 [facility] [address] [id number] [address] [place] [address], [place] [address] 20 Aug, 2011 [facility] [address] [id number] [address] [place] [address], [place] [address] 19 Aug, 2011 [facility] [address] [id number] [address] [place] [address], [place] [address] 16 Aug, 2011 [facility] [address] [id number] [address] [place] [address], [place] [address] 15 Aug, 2011 [facility] [address] [id number] [address] [place] [address], [place] [address] 15 Aug, 2011 [facility] [address] [id number] [address] [place] [address], [place] [address] 14 Aug, 2011 [facility] [address] [id number] [address] [place] [address], [place] [address] 12 Aug, 2011 [facility] [address] [id number] [address] [place] [address], [place] [address] 08 Aug, 2011 [facility] [address] [id number] [address] [place] [address], [place] [address] 15 Jul, 2011 [facility] [address] [id number] [address] [place] [address], [place] [address] 15 Jul, 2011 [facility] [address] [id number] [address] [place] [address], [place] [address] 14 Jul, 2011 [facility] [address] [id number] [address] [place] [address], [place] [address] 06 Jul, 2011 [facility] [address] [id number] [address] [place] [address], [place] [address] 02 Jul, 2011 [facility] [address] [id number] [address] [place] [address], [place] [address] 18 Jun, 2011 [facility] [address] [id number] [address] [place] [address], [place] [address] Jun, [facility] [address] [id number] [address] [place] [address], [place] [address] Jun, [facility] [address] [id number] [address] [place] [address], [place] [address] May, [facility] [address] [id number] [address] [place] [address], [place] [address] May, [facility] [address] [id number] [address] [place] [address], [place] [address] May, [facility] [address] [id number] [address] [place] [address], [place] [address] May, [facility] [address] [id number] [address] [place] [address], [place] [address] May, [facility] [address] [id number] [address] [place] [address], [place] [address] 16 Apr, 2011 [facility] [address] [id number] [address] [place] [address], [place] [address] 16 Apr, 2011 [facility] [address] [id number] [address] [place] [address], [place] [address] 15 Apr, 2011 [facility] [address] [id number] [address] [place] [address] 14 Apr, 2011 [facility] [address] [id number] [address] [place] [address] 25 Mar, 2011 [facility] [address] [id number] [address] [place] [id number] 24 Mar, 2011 [facility] [address] [id number] [address] [place] [address], [place] [id number] Mar, [facility] [address] [id number] [address] [place] [id number] 19 Mar, 2011 [facility] [address] [id number] [address] [place] [id number] 17 Mar, 2011 [facility] [address] [id number] [address] [place] [phone] 17 Mar, 2011 [facility] [place] [address] [id number] [address] [place] [id number] 16 Feb, 2011 [facility] [place] [address] [id number] [address] [place] [id number] Nov, [facility] [place] [address] [id number] [address] [place] [id number] Aug, [facility] [place] [address] [id number] [address] [place] [id number] Apr, [facility] [place] [address] [id number] [address] [place] [id number] Mar, [facility] [place] [address] [id number] [address] [place] [id number] Apr, [facility] [place] [address] [facility] [id number] [address] [place] [id number] Apr, [facility] [place] [address] [id number] [address] [place] [phone] Sep, [facility] [place] [address] [id number] [address] [place] [phone] Mar, IMMUNIZATIONS No Known Immunizations SOCIAL HISTORY Never Assessed REASON FOR VISIT [facility] [place] VITAL SIGNS MEDICATIONS No [...] ER for Kidney pain/Stones 06/19/18 Hospitalization History [facility] X4 days 9
[2019-12-26] MEDS ORDERED: HURRICAINE EXT TUBE (BENZOCAINE) ONE (11:16)
--- OUTSIDE RECORDS SUMMARY | 2019-12-26 11:22 | XMS REPORT | Continuity of Care Document ---
Author Organization Unknown Address Unknown Phone Unavailable Allergies Active Description [...] METALS METALS Unknown N/A 07/12/2014 Yes lisinopril [id number] Drug Allerg y Mild COUGH 03/05/2017 Yes montelukast [id number] Drug Aller gy Unknown N/A 03/05/2017 Yes montelukast sodium [id number] Drug Allergy Unknown N/A 03/05/2017 Yes montelukast [id number] Drug Aller gy Unknown UNABLE TO REMEM 12/13/2019 Medications There is no data. Problems Date [...] PAIN IN LIMB 03/24/2008 RUBINA HARLEY APRN 729. 5 PAIN IN LIMB 03/24/2008 LEO BENITEZ MD 729.5 PAIN IN LIMB 03/24/2008 RUBINA HARLEY APRN 729. 5 PAIN IN LIMB 03/24/2008 ARISTEO ARAYA APRN 72 9.5 PAIN IN LIMB 03/24/2008 LOUIS GARVEY APRN R 729.5 PAIN IN LIMB 09/13/2008 STANFORD CAAL DO K 465.9 UPPER RESPIRATORY INFECTION 09/13/2008 465.9 UPPE R RESPIRATORY INFECTION 09/13/2008 465.9 UPPE R RESPIRATORY INFECTION 09/13/2008 STANFORD CAAL DO K 465.9 UPPER RESPIRATORY INFECTION 09/13/2008 465.9 UPPE R RESPIRATORY INFECTION 09/13/2008 CAAL DOCLEMENTINEA K 465.9 UPPER RESPIRATORY INFECTION 09/13/2008 CAAL CLEMENTINE GARCIAA K 465.9 UPPER RESPIRATORY INFECTION 09/13/2008 465.9 UPPE R RESPIRATORY INFECTION 09/13/2008 465.9 UPPE R RESPIRATORY INFECTION 09/13/2008 STANFORD CAAL DO K 465.9 UPPER RESPIRATORY INFECTION 09/13/2008 465.9 UPPE R RESPIRATORY INFECTION 09/13/2008 465.9 UPPE R RESPIRATORY INFECTION 09/13/2008 465.9 UPPE R RESPIRATORY INFECTION 09/13/2008 CAAL DO, STANFORD K [...] K 465.9 UPPER RESPIRATORY INFECTION 09/13/2008 GURU SEMICONDUCTOR LAB TECHNICIAN, [place] R 465.9 UPPER RESPIRATORY INFECTION 09/13/2008 CAAL DO, STANFORD K 465.9 UPPER RESPIRATORY INFECTION 09/13/2008 CAAL DO, STANFORD K 465.9 UPPER RESPIRATORY INFECTION 09/13/2008 CAAL DO, STANFORD K 465.9 UPPER RESPIRATORY INFECTION 09/13/2008 GURU SEMICONDUCTOR LAB TECHNICIAN, [place] R 465.9 UPPER RESPIRATORY INFECTION 09/13/2008 CAAL DO, STANFORD K 465.9 UPPER RESPIRATORY INFECTION 09/13/2008 RUBINA HARLEY APRN 465. 9 UPPER RESPIRATORY INFECTION 09/13/2008 LEO BENITEZ MD 465.9 UPPER RESPIRATORY INFECTION 09/13/2008 RUBINA HARLEY APRN 465. 9 UPPER RESPIRATORY INFECTION 09/13/2008 ARISTEO ARAYA APRN 46 5.9 UPPER RESPIRATORY INFECTION 09/13/2008 GURU QUEZADA [place] R 465.9 UPPER RESPIRATORY INFECTION 09/20/2008 CAAL DOCLEMENTINEA K 493.92 ASTHMA (ACUTE) EXACERBATION 09/20/2008 493.92 AST HMA (ACUTE) EXACERBATION 09/20/2008 493.92 AST HMA (ACUTE) EXACERBATION 09/20/2008 CLEMENTINE CAAL DOA K 493.92 ASTHMA (ACUTE) EXACERBATION 09/20/2008 493.92 AST HMA (ACUTE) EXACERBATION 09/20/2008 CAAL DOCLEMENTINEA K 493.92 ASTHMA (ACUTE) EXACERBATION 09/20/2008 CAAL DOCLEMENTINEA K 493.92 ASTHMA (ACUTE) EXACERBATION 09/20/2008 493.92 AST HMA (ACUTE) EXACERBATION 09/20/2008 493.92 AST HMA (ACUTE) EXACERBATION 09/20/2008 CAAL DOCLEMENTINEA K 493.92 ASTHMA (ACUTE) EXACERBATION 09/20/2008 493.92 AST HMA (ACUTE) EXACERBATION 09/20/2008 493.92 AST HMA (ACUTE) EXACERBATION 09/20/2008 493.92 AST HMA (ACUTE) EXACERBATION 09/20/2008 CAAL DOCLEMENTINEA K 493.92 ASTHMA (ACUTE) EXACERBATION 09/20/2008 CAAL DO ST[place] K 493.92 ASTHMA (ACUTE) EXACERBATION 09/20/2008 CAAL DO ST[place] K 493.92 ASTHMA (ACUTE) EXACERBATION 09/20/2008 CAAL DO ST[place] K 493.92 ASTHMA (ACUTE) EXACERBATION 09/20/2008 CAAL DO ST[place] K 493.92 ASTHMA (ACUTE) EXACERBATION 09/20/2008 CAAL DO ST[place] K 493.92 ASTHMA (ACUTE) EXACERBATION 09/20/2008 CAAL DO STAN[place]ORD K 493.92 ASTHMA (ACUTE) EXACERBATION 09/20/2008 LOUIS GARVEY APRN R 493.92 ASTHMA (ACUTE) EXACERBATION 09/20/2008 CAAL DOCLEMENTINEA K 493.92 ASTHMA (ACUTE) EXACERBATION 09/20/2008 CAAL DOCLEMENTINEA K 493.92 ASTHMA (ACUTE) EXACERBATION 09/20/2008 CAAL DOCLEMENTINEA K 493.92 ASTHMA (ACUTE) EXACERBATION 09/20/2008 LOUIS GARVEY APRN R 493.92 ASTHMA (ACUTE) EXACERBATION 09/20/2008 CAAL CLEMENTINE GARCIAA K 493.92 ASTHMA (ACUTE) EXACERBATION 09/20/2008 RUBINA HARLEY APRN 493. 92 ASTHMA (ACUTE) EXACERBATION 09/20/2008 LEO BENITEZ MD 493.92 ASTHMA (ACUTE) EXACERBATION 09/20/2008 RUBINA HARLEY APRN 493. 92 ASTHMA (ACUTE) EXACERBATION 09/20/2008 ARISTEO ARAYA APRN 493.92 ASTHMA (ACUTE) EXACERBATION 09/20/2008 LOUIS GARVEY APRN R 493.92 ASTHMA (ACUTE) EXACERBATION 04/28/2009 STANFORD CAAL DO 787.01 NAUSEA WITH VOMITING 04/28/2009 787.01 LUIS DANIEL SEA WITH VOMITING 04/28/2009 787.01 LUIS DANIEL SEA WITH VOMITING 04/28/2009 STANFORD CAAL DO 787.01 NAUSEA WITH VOMITING 04/28/2009 787.01 LUIS DANIEL SEA WITH VOMITING 04/28/2009 CAAL ST[place] GARCIA 787.01 NAUSEA WITH VOMITING 04/28/2009 STANFORD CAAL DO 787.01 NAUSEA WITH VOMITING 04/28/2009 787.01 LUIS DANIEL SEA WITH VOMITING 04/28/2009 787.01 LUIS DANIEL SEA WITH VOMITING 04/28/2009 CAAL DO, STANFORD K 787.01 NAUSEA WITH VOMITING 04/28/2009 787.01 LUIS DANIEL SEA WITH VOMITING 04/28/2009 787.01 LUIS DANIEL SEA WITH VOMITING 04/28/2009 787.01 LUIS DANIEL SEA WITH VOMITING 04/28/2009 CAAL DO, STANFORD K [...] NAUSEA WITH VOMITING 04/28/2009 RUBINA HARLEY APRN 787. 01 NAUSEA WITH VOMITING 04/28/2009 LEO BENITEZ MD 787.01 NAUSEA WITH VOMITING 04/28/2009 RUBINA HARLEY APRN 787. 01 NAUSEA WITH VOMITING 04/28/2009 ARISTEO ARAYA APRN 787.01 NAUSEA WITH VOMITING 04/28/2009 JENN GARVEY APRNINA R 787.01 NAUSEA WITH VOMITING 08/01/2009 CAAL DO STAN[place]ORD K 840.9 SPRAIN/STRAIN SHOULDER/ARM 08/01/2009 840.9 SPRA IN/STRAIN SHOULDER/ARM 08/01/2009 840.9 SPRA IN/STRAIN SHOULDER/ARM 08/01/2009 CAAL DO ST[place] K 840.9 SPRAIN/STRAIN SHOULDER/ARM 08/01/2009 840.9 SPRA IN/STRAIN SHOULDER/ARM 08/01/2009 CAAL DO, STANFODR K 840.9 SPRAIN/STRAIN SHOULDER/ARM 08/01/2009 CAAL DO, STANFORD K 840.9 SPRAIN/STRAIN SHOULDER/ARM 08/01/2009 840.9 SPRA IN/STRAIN SHOULDER/ARM 08/01/2009 840.9 SPRA IN/STRAIN SHOULDER/ARM 08/01/2009 CAAL DO, STANFORD K 840.9 SPRAIN/STRAIN SHOULDER/ARM 08/01/2009 840.9 SPRA IN/STRAIN SHOULDER/ARM 08/01/2009 840.9 SPRA IN/STRAIN SHOULDER/ARM 08/01/2009 840.9 SPRA IN/STRAIN SHOULDER/ARM 08/01/2009 CAAL DO, STANFORD K 840.9 [...] DO, STANFORD K 840.9 SPRAIN/STRAIN SHOULDER/ARM 08/01/2009 GURU QUEZADA, [place] R 840.9 SPRAIN/STRAIN SHOULDER/ARM 08/01/2009 CAAL DO, STANFORD K 840.9 SPRAIN/STRAIN SHOULDER/ARM 08/01/2009 RUBINA HARLEY APRN 840. 9 SPRAIN/STRAIN SHOULDER/ARM 08/01/2009 LEO BENITEZ MD 840.9 SPRAIN/STRAIN SHOULDER/ARM 08/01/2009 RUBINA HARLEY APRN 840. 9 SPRAIN/STRAIN SHOULDER/ARM 08/01/2009 ARISTEO ARAYA APRN 84 0.9 SPRAIN/STRAIN SHOULDER/ARM 08/01/2009 LOUIS GARVEY APRN 840.9 SPRAIN/STRAIN SHOULDER/ARM 02/14/2010 CAAL DO, STANFORD K 719.46 Pain In Joint, Lower Leg 02/14/2010 719.46 Oj n In Joint, Lower Leg 02/14/2010 719.46 Oj n In Joint, Lower Leg 02/14/2010 CAAL DO, STANFORD K 719.46 Pain In Joint, Lower Leg 02/14/2010 719.46 Oj n In Joint, Lower Leg 02/14/2010 CAAL DO, STANFORD K 719.46 Pain In Joint, Lower Leg 02/14/2010 CAAL DO, STANFORD K 719.46 Pain In Joint, Lower Leg 02/14/2010 719.46 Oj n In Joint, Lower Leg 02/14/2010 719.46 Oj n In Joint, Lower Leg 02/14/2010 CAAL DO, STANFORD K 719.46 Pain In Joint, Lower Leg 02/14/2010 719.46 Oj n In Joint, Lower Leg 02/14/2010 719.46 Oj n In Joint, Lower Leg 02/14/2010 719.46 Oj n In Joint, Lower Leg 02/14/2010 CAAL DO, [...] 719.46 Pain In Joint, Lower Leg 02/14/2010 STANFORD CAAL DO 719.46 Pain In Joint, Lower Leg 02/14/2010 GURU QUEZADA, [place] R 719.46 Pain In Joint, Lower Leg 02/14/2010 STANFORD CAAL DO 719.46 Pain In Joint, Lower Leg 02/14/2010 RUBINA HARLEY APRN 719. 46 Pain In Joint, Lower Leg 02/14/2010 LEO BENITEZ MD 719.46 Pain In Joint, Lower Leg 02/14/2010 RUBINA HARLEY APRN 719. 46 Pain In Joint, Lower Leg 02/14/2010 ARISTEO ARAYA APRN 719.46 Pain In Joint, Lower Leg 02/14/2010 LOUIS GARVEY APRN R 719.46 Pain In Joint, Lower Leg 04/18/2010 STANFORD CAAL DO 717.2 Derangement Of Posterior Horn Of Medial Meniscus 04/18/2010 717.2 Dera ngement Of Posterior Horn Of Medial Meniscus 04/18/2010 717.2 Dera ngement Of Posterior Horn Of Medial Meniscus 04/18/2010 STANFORD CAAL DO 717.2 Derangement Of Posterior Horn Of Medial Meniscus 04/18/2010 717.2 Dera ngement Of Posterior Horn Of Medial Meniscus 04/18/2010 STANFORD CAAL DO 717.2 Derangement Of Posterior Horn Of Medial Meniscus 04/18/2010 STANFORD CAAL DO 717.2 Derangement Of Posterior Horn Of Medial Meniscus 04/18/2010 717.2 Dera ngement Of Posterior Horn Of Medial Meniscus 04/18/2010 717.2 Dera ngement Of Posterior Horn Of Medial Meniscus 04/18/2010 STANFROD CAAL DO 717.2 Derangement Of Posterior Horn Of Medial Meniscus 04/18/2010 717.2 Dera ngement Of Posterior Horn Of Medial Meniscus 04/18/2010 717.2 Dera ngement Of Posterior Horn Of Medial Meniscus 04/18/2010 717.2 Dera ngement Of Posterior Horn Of Medial Meniscus 04/18/2010 STANFORD CAAL DO 717.2 Derangement Of Posterior Horn Of Medial Meniscus 04/18/2010 STANFORD CAAL DO 717.2 Derangement Of Posterior Horn Of Medial [...] Of Posterior Horn Of Medial Meniscus 04/18/2010 JENN GARVEY APRNINA R 717.2 Derangement Of Posterior Horn Of [...] Of Medial Meniscus 04/18/2010 RUBINA HARLEY APRN 717. 2 Derangement Of Posterior Horn Of Medial Meniscus 04/18/2010 LEO BENITEZ MD 717.2 Derangement Of Posterior Horn Of Medial Meniscus 04/18/2010 RUBINA HARLEY APRN 717. 2 Derangement Of Posterior Horn Of Medial Meniscus 04/18/2010 ARISTEO ARAYA APRN 71 7.2 Derangement Of Posterior Horn Of Medial Meniscus 04/18/2010 GURU QUEZADA, [place] R 717.2 Derangement Of Posterior Horn Of Medial Meniscus 10/02/2010 STANFORD CAAL DO 461.9 SINUSITIS ACUTE 10/02/2010 461.9 SINU SITIS ACUTE 10/02/2010 461.9 SINU SITIS ACUTE 10/02/2010 STANFORD CAAL DO 461.9 SINUSITIS ACUTE 10/02/2010 461.9 SINU SITIS ACUTE 10/02/2010 STANFORD CAAL DO 461.9 SINUSITIS ACUTE 10/02/2010 STANFORD CAAL DO 461.9 SINUSITIS ACUTE 10/02/2010 461.9 SINU SITIS ACUTE 10/02/2010 461.9 SINU SITIS ACUTE 10/02/2010 CAAL DO, STANFORD K 461.9 SINUSITIS ACUTE 10/02/2010 461.9 SINU SITIS ACUTE 10/02/2010 461.9 SINU SITIS ACUTE 10/02/2010 461.9 SINU SITIS ACUTE 10/02/2010 CAAL DO, STANFORD K 461.9 SINUSITIS ACUTE 10/02/2010 CAAL DO, STANFORD K 461.9 SINUSITIS ACUTE 10/02/2010 CAAL DO, STANFORD K 461.9 SINUSITIS ACUTE 10/02/2010 CAAL DO, STANFORD K 461.9 SINUSITIS ACUTE 10/02/2010 CAAL DO, STANFORD K 461.9 SINUSITIS ACUTE 10/02/2010 CAAL DO, STANFORD K 461.9 SINUSITIS ACUTE 10/02/2010 CAAL DO, STANFORD K 461.9 SINUSITIS ACUTE 10/02/2010 LOUSI GARVEY APRN 461.9 SINUSITIS ACUTE 10/02/2010 CAAL DO, STANFORD K 461.9 SINUSITIS ACUTE 10/02/2010 CAAL DO, STANFORD K 461.9 SINUSITIS ACUTE 10/02/2010 CAAL DO, STANFORD K 461.9 SINUSITIS ACUTE 10/02/2010 LOUIS GARVEY APRN 461.9 SINUSITIS ACUTE 10/02/2010 CAAL DO, STANFORD K 461.9 SINUSITIS ACUTE 10/02/2010 RUBINA HARLEY APRN 461. 9 SINUSITIS ACUTE 10/02/2010 LEO BENITEZ MD 461.9 SINUSITIS ACUTE 10/02/2010 RUBINA HARLEY APRN 461. 9 SINUSITIS ACUTE 10/02/2010 ARISTEO ARAYA APRN 46 1.9 SINUSITIS ACUTE 10/02/2010 GURU QUEZADA [place] R 461.9 SINUSITIS ACUTE 11/01/2010 CAAL DO, STANFORD K 300.00 ANXIETY UNSPEC 11/01/2010 CAAL DO, STANFORD K 780.52 INSOMNIA UNSPECIFIED 11/01/2010 300.00 ANX IETY UNSPEC 11/01/2010 780.52 INS OMNIA UNSPECIFIED 11/01/2010 300.00 ANX IETY UNSPEC 11/01/2010 780.52 INS OMNIA UNSPECIFIED 11/01/2010 CAAL DO, STANFORD K 300.00 ANXIETY UNSPEC 11/01/2010 CAAL DO, STANFORD K 780.52 INSOMNIA UNSPECIFIED 11/01/2010 300.00 ANX IETY UNSPEC 11/01/2010 780.52 INS OMNIA UNSPECIFIED 11/01/2010 CAAL DO, STANFORD K 300.00 ANXIETY UNSPEC 11/01/2010 CAAL DO, STANFORD K 780.52 INSOMNIA UNSPECIFIED 11/01/2010 CAAL DO, STANFORD K 300.00 ANXIETY UNSPEC 11/01/2010 CAAL DO, STANFORD K 780.52 INSOMNIA UNSPECIFIED 11/01/2010 300.00 ANX IETY UNSPEC 11/01/2010 780.52 INS OMNIA UNSPECIFIED 11/01/2010 300.00 ANX IETY UNSPEC 11/01/2010 780.52 INS OMNIA UNSPECIFIED 11/01/2010 CAAL DO, STANFORD K 300.00 ANXIETY UNSPEC 11/01/2010 CAAL DO, STANFORD K 780.52 INSOMNIA UNSPECIFIED 11/01/2010 300.00 ANX IETY UNSPEC 11/01/2010 780.52 INS OMNIA UNSPECIFIED 11/01/2010 300.00 ANX IETY UNSPEC 11/01/2010 780.52 INS OMNIA UNSPECIFIED 11/01/2010 300.00 ANX IETY UNSPEC 11/01/2010 780.52 INS OMNIA UNSPECIFIED 11/01/2010 CAAL DO, STANFORD K 300.00 [...] STANFORD K 780.52 INSOMNIA UNSPECIFIED 11/01/2010 GURU SEMICONDUCTOR LAB TECHNICIAN, [place] R 300.00 ANXIETY UNSPEC 11/01/2010 GURU QUEZADA, [place] R 780.52 INSOMNIA UNSPECIFIED 11/01/2010 CAAL DO, STANFORD K 300.00 ANXIETY UNSPEC 11/01/2010 CAAL DO, STANFORD K 780.52 INSOMNIA UNSPECIFIED 11/01/2010 CAAL DO, STANFORD K 300.00 ANXIETY UNSPEC 11/01/2010 CAAL DO, STANFORD K 780.52 INSOMNIA UNSPECIFIED 11/01/2010 CAAL DO, STANFORD K 300.00 ANXIETY UNSPEC 11/01/2010 CAAL DO, STANFORD K 780.52 INSOMNIA UNSPECIFIED 11/01/2010 GURU QUEZADA [place] R 300.00 ANXIETY UNSPEC 11/01/2010 JENN GARVEY APRNINA R 780.52 INSOMNIA UNSPECIFIED 11/01/2010 CAAL DO, STANFORD K 300.00 ANXIETY UNSPEC 11/01/2010 CAAL DO, STANFORD K 780.52 INSOMNIA UNSPECIFIED 11/01/2010 RUBINA HARLEY APRN 300. 00 ANXIETY UNSPEC 11/01/2010 RUBINA HARLEY APRN 780. 52 INSOMNIA UNSPECIFIED 11/01/2010 LEO BENITEZ MD 300.00 ANXIETY UNSPEC 11/01/2010 LEO BENITEZ MD 780.52 INSOMNIA UNSPECIFIED 11/01/2010 RUBINA HARLEY APRN 300. 00 ANXIETY UNSPEC 11/01/2010 RUBINA HARLEY APRN 780. 52 INSOMNIA UNSPECIFIED 11/01/2010 ARISTEO ARAYA APRN 300.00 ANXIETY UNSPEC 11/01/2010 ARISTEO ARAYA APRN 780.52 INSOMNIA UNSPECIFIED 11/01/2010 LOUIS GARVEY APRN R 300.00 ANXIETY UNSPEC 11/01/2010 LOUIS GARVEY APRN R 780.52 INSOMNIA UNSPECIFIED 11/15/2010 CAAL DO, [...] STANFORD K 784.0 Headache 11/15/2010 CAAL DO, TSANFORD K 784.0 Headache 11/15/2010 CAAL DO, STANFORD K 784.0 Headache 11/15/2010 CAAL DO, STANFORD K 784.0 Headache 11/15/2010 CAAL DO, STANFORD K 784.0 Headache 11/15/2010 CAAL DO, STANFORD K 784.0 Headache 11/15/2010 CAAL DO, STANFORD K 784.0 Headache 11/15/2010 GURU SEMICONDUCTOR LAB TECHNICIAN, [place] R 784.0 Headache 11/15/2010 CAAL DO, STANFORD K 784.0 Headache 11/15/2010 CAAL DO, STANFORD K 784.0 Headache 11/15/2010 CAAL DO, STANFORD K 784.0 Headache 11/15/2010 GURU QUEZADA, [place] R 784.0 Headache 11/15/2010 CAAL DO, STAN[place]ORD K 784.0 Headache 11/15/2010 RUBINA HARLEY APRN 784. 0 Headache 11/15/2010 LEO BENITEZ MD 784.0 Headache 11/15/2010 RUBINA HARLEY APRN 784. 0 Headache 11/15/2010 ARISTEO ARAYA APRN 78 4.0 Headache 11/15/2010 GURU QUEZADA, [place] R 784.0 Headache 01/29/2011 CAAL DO, STANFORD K 401.1 ESSENTIAL HYPERTENSION BENIGN 01/29/2011 401.1 ESSE NTIAL HYPERTENSION BENIGN 01/29/2011 401.1 ESSE NTIAL HYPERTENSION BENIGN 01/29/2011 CAAL DO, STANFORD K 401.1 ESSENTIAL HYPERTENSION BENIGN 01/29/2011 401.1 ESSE NTIAL HYPERTENSION BENIGN 01/29/2011 CAAL DO, STANFORD K 401.1 ESSENTIAL HYPERTENSION BENIGN 01/29/2011 CAAL DO, STANFORD K 401.1 ESSENTIAL HYPERTENSION BENIGN 01/29/2011 401.1 ESSE NTIAL HYPERTENSION BENIGN 01/29/2011 401.1 ESSE NTIAL HYPERTENSION BENIGN 01/29/2011 CAAL DO, STAN[place]ORD K 401.1 ESSENTIAL HYPERTENSION BENIGN 01/29/2011 401.1 ESSE NTIAL HYPERTENSION BENIGN 01/29/2011 401.1 ESSE NTIAL HYPERTENSION BENIGN 01/29/2011 401.1 ESSE NTIAL HYPERTENSION BENIGN 01/29/2011 CAAL DO, STANFORD K [...] K 401.1 ESSENTIAL HYPERTENSION BENIGN 01/29/2011 GURU QUEZADA [place] R 401.1 ESSENTIAL HYPERTENSION BENIGN 01/29/2011 CAAL DO, STANFORD K 401.1 ESSENTIAL HYPERTENSION BENIGN 01/29/2011 CAAL DO, STANFORD K 401.1 ESSENTIAL HYPERTENSION BENIGN 01/29/2011 CAAL DO, STANFORD K 401.1 ESSENTIAL HYPERTENSION BENIGN 01/29/2011 LOUIS GARVEY APRN R 401.1 ESSENTIAL HYPERTENSION BENIGN 01/29/2011 CAAL DO, STANFORD K 401.1 ESSENTIAL HYPERTENSION BENIGN 01/29/2011 RUBINA HARLEY APRN 401. 1 ESSENTIAL HYPERTENSION BENIGN 01/29/2011 LEO BENITEZ MD 401.1 ESSENTIAL HYPERTENSION BENIGN 01/29/2011 RUBINA HARLEY APRN 401. 1 ESSENTIAL HYPERTENSION BENIGN 01/29/2011 ARISTEO ARAYA APRN 40 1.1 ESSENTIAL HYPERTENSION BENIGN 01/29/2011 GURU QUEZADA [place] R 401.1 ESSENTIAL HYPERTENSION BENIGN 01/31/2011 CAAL DO, STANFORD K NODX NO DIAGNOSIS 01/31/2011 NODX NO DI AGNOSIS 01/31/2011 NODX NO DI AGNOSIS 01/31/2011 CAAL DO, STANFORD K NODX NO DIAGNOSIS 01/31/2011 NODX NO DI AGNOSIS 01/31/2011 CAAL DO, STANFORD K NODX NO DIAGNOSIS 01/31/2011 CAAL DO, STANFORD K NODX NO DIAGNOSIS 01/31/2011 NODX NO DI AGNOSIS 01/31/2011 NODX NO DI AGNOSIS 01/31/2011 CAAL DO, STANFORD K NODX NO DIAGNOSIS 01/31/2011 NODX NO DI AGNOSIS 01/31/2011 NODX NO DI AGNOSIS 01/31/2011 NODX NO DI AGNOSIS 01/31/2011 CAAL DO, STANFORD K NODX NO DIAGNOSIS 01/31/2011 CAAL DO, STANFORD K NODX NO DIAGNOSIS 01/31/2011 CAAL DO, STANFROD K NODX NO DIAGNOSIS 01/31/2011 CAAL DO, STANFORD K NODX NO DIAGNOSIS 01/31/2011 CAAL DO, STANFORD K NODX NO DIAGNOSIS 01/31/2011 CAAL DO, STAN[place] K NODX NO DIAGNOSIS 01/31/2011 CAAL DO, STANFORD K NODX NO DIAGNOSIS 01/31/2011 GURU QUEZADA [place] R N ODX NO DIAGNOSIS 01/31/2011 CAAL DO, STANFORD K NODX NO DIAGNOSIS 01/31/2011 CAAL DO, STAN[place]ORD K NODX NO DIAGNOSIS 01/31/2011 CAAL DO, STANFORD K NODX NO DIAGNOSIS 01/31/2011 JENN GARVEY APRNINA R N ODX NO DIAGNOSIS 01/31/2011 CAAL DO, STAN[place] K NODX NO DIAGNOSIS 01/31/2011 RUBINA HARLEY APRN NODX NO DIAGNOSIS 01/31/2011 LEO BENITEZ MD NODX NO DIAGNOSIS 01/31/2011 RUBINA HARLEY APRN NODX NO DIAGNOSIS 01/31/2011 ARISTEO ARAYA APRN NO DX NO DIAGNOSIS 01/31/2011 JENN GARVEY APRNINA R N ODX NO DIAGNOSIS 02/12/2011 CAAL DO, STANFORD K 790.29 Hyperglycemia 02/12/2011 790.29 Hyp erglycemia 02/12/2011 790.29 Hyp erglycemia 02/12/2011 CALA DO, STANFORD K 790.29 Hyperglycemia 02/12/2011 790.29 Hyp erglycemia 02/12/2011 CAAL DO, STANFORD K 790.29 Hyperglycemia 02/12/2011 CAAL DO, STANFORD K 790.29 Hyperglycemia 02/12/2011 790.29 Hyp erglycemia 02/12/2011 790.29 Hyp erglycemia 02/12/2011 CAAL DO, STANFORD K 790.29 Hyperglycemia 02/12/2011 790.29 Hyp erglycemia 02/12/2011 790.29 Hyp erglycemia 02/12/2011 790.29 Hyp erglycemia 02/12/2011 CAAL DO, STANFORD K 790.29 Hyperglycemia 02/12/2011 CAAL DO, STANFORD K 790.29 Hyperglycemia 02/12/2011 CAAL DO, STANFORD K 790.29 Hyperglycemia 02/12/2011 CAAL DO, STANFORD K 790.29 Hyperglycemia 02/12/2011 CAAL DO, STANFORD K 790.29 Hyperglycemia 02/12/2011 CAAL DO, STAN[place] K 790.29 Hyperglycemia 02/12/2011 CAAL DO, STAN[place] K 790.29 Hyperglycemia 02/12/2011 GURU SEMICONDUCTOR LAB TECHNICIAN, [place] R 790.29 Hyperglycemia 02/12/2011 CAAL DO, STANFORD K 790.29 Hyperglycemia 02/12/2011 CAAL DO, STANFORD K 790.29 Hyperglycemia 02/12/2011 CAAL DO, STANFORD K 790.29 Hyperglycemia 02/12/2011 GURU SEMICONDUCTOR LAB TECHNICIAN, [place] R 790.29 Hyperglycemia 02/12/2011 CAAL DO, STANFORD K 790.29 Hyperglycemia 02/12/2011 CHERRI QUEZADA, RUBINA Salazar 790. 29 Hyperglycemia 02/12/2011 LEO BENITEZ MD 790.29 Hyperglycemia 02/12/2011 RUBINA HARLEY APRN 790. 29 Hyperglycemia 02/12/2011 ARISTEO ARAYA APRN 790.29 Hyperglycemia 02/12/2011 GURU SEMICONDUCTOR LAB TECHNICIAN, [place] R 790.29 Hyperglycemia 02/21/2011 CAAL DO, STANFORD K 780.4 Dizziness And Vertigo 02/21/2011 780.4 Dizz iness And Vertigo 02/21/2011 780.4 Dizz iness And Vertigo 02/21/2011 CAAL DO, STANFORD K 780.4 Dizziness And Vertigo 02/21/2011 780.4 Dizz iness And Vertigo 02/21/2011 CAAL DO, STANFORD K 780.4 Dizziness And Vertigo 02/21/2011 CAAL DO, STANFORD K 780.4 Dizziness And Vertigo 02/21/2011 780.4 Dizz iness And Vertigo 02/21/2011 780.4 Dizz iness And Vertigo 02/21/2011 CAAL DO, STANFORD K 780.4 Dizziness And Vertigo 02/21/2011 780.4 Dizz iness And Vertigo 02/21/2011 780.4 Dizz iness And Vertigo 02/21/2011 780.4 Dizz iness And Vertigo 02/21/2011 CAAL DO, STANFORD K [...] STANFORD K 780.4 Dizziness And Vertigo 02/21/2011 JENN GARVEY APRNINA R 780.4 Dizziness And Vertigo 02/21/2011 CAAL DO, STANFORD K 780.4 Dizziness And Vertigo 02/21/2011 CAAL DO, STANFORD K 780.4 Dizziness And Vertigo 02/21/2011 CAAL DO, STANFORD K 780.4 Dizziness And Vertigo 02/21/2011 JENN GARVEY APRNINA R 780.4 Dizziness And Vertigo 02/21/2011 CAAL DO, STANFORD K 780.4 Dizziness And Vertigo 02/21/2011 RUBINA HARLEY APRN 780. 4 Dizziness And Vertigo 02/21/2011 LEO BENITEZ MD 780.4 Dizziness And Vertigo 02/21/2011 RUBINA HARLEY APRN 780. 4 Dizziness And Vertigo 02/21/2011 ARISTEO ARAYA APRN 78 0.4 Dizziness And Vertigo 02/21/2011 LOUIS GARVEY APRN [...] 296.32 MO DEPRESSIVE RECURRENT MODERATE 05/21/2011 GURU QUEZADA [place] R 296.32 MO DEPRESSIVE RECURRENT MODERATE 05/21/2011 CAAL DO, STANFORD K 296.32 MO DEPRESSIVE RECURRENT MODERATE 05/21/2011 CAAL DO, STANFORD K 296.32 MO DEPRESSIVE RECURRENT MODERATE 05/21/2011 CAAL DO, STAN[place]ORD K 296.32 MO DEPRESSIVE RECURRENT MODERATE 05/21/2011 JENN GARVEY APRNINA R 296.32 MO DEPRESSIVE RECURRENT MODERATE 05/21/2011 CAAL DO, STANFORD K 296.32 MO DEPRESSIVE RECURRENT MODERATE 05/21/2011 RUBINA HARLEY APRN 296. 32 MO DEPRESSIVE RECURRENT MODERATE 05/21/2011 LEO BENITEZ MD 296.32 MO DEPRESSIVE RECURRENT MODERATE 05/21/2011 RUBINA HARLEY APRN 296. 32 MO DEPRESSIVE RECURRENT MODERATE 05/21/2011 ARISTEO ARAYA APRN 296.32 MO DEPRESSIVE RECURRENT MODERATE 05/21/2011 JENN GARVEY APRNINA R 296.32 MO DEPRESSIVE RECURRENT MODERATE 06/11/2011 CAAL DOCLEMENTINEA K 346.90 MIGRAINE HEADACHE 06/11/2011 CAAL CLEMENTINE GARCIAA K 493.90 ASTHMA UNSPECIFIED 06/11/2011 STANFORD CAAL DO K 530.81 GERD 06/11/2011 346.90 KARINA RAFAELA HEADACHE 06/11/2011 493.90 AST HMA UNSPECIFIED 06/11/2011 530.81 GERD 06/11/2011 346.90 KARINA RAFAELA HEADACHE 06/11/2011 493.90 AST HMA UNSPECIFIED 06/11/2011 530.81 GERD 06/11/2011 CAAL DOCLEMENTINEA K 346.90 MIGRAINE HEADACHE 06/11/2011 CAAL DOCLEMENTINEA K 493.90 ASTHMA UNSPECIFIED 06/11/2011 CAAL DO ST[place]ORD K 530.81 GERD 06/11/2011 346.90 KARINA RAFAELA HEADACHE 06/11/2011 493.90 AST HMA UNSPECIFIED 06/11/2011 530.81 GERD 06/11/2011 CAAL DO, STANFORD K 346.90 MIGRAINE HEADACHE 06/11/2011 CAAL DO, STANFORD K 493.90 ASTHMA UNSPECIFIED 06/11/2011 CAAL DO, STANFORD K 530.81 GERD 06/11/2011 CAAL DO, STANFORD K 346.90 MIGRAINE HEADACHE 06/11/2011 CAAL DO, STANFORD K 493.90 ASTHMA UNSPECIFIED 06/11/2011 CAAL DO, STAN[place]ORD K 530.81 GERD 06/11/2011 346.90 KARINA RAFAELA HEADACHE 06/11/2011 493.90 AST HMA UNSPECIFIED 06/11/2011 530.81 GERD 06/11/2011 346.90 KARINA RAFAELA HEADACHE 06/11/2011 493.90 AST HMA UNSPECIFIED 06/11/2011 530.81 GERD 06/11/2011 CAAL DO, STANFORD K 346.90 MIGRAINE HEADACHE 06/11/2011 CAAL DO, STANFORD K 493.90 ASTHMA UNSPECIFIED 06/11/2011 CAAL DO, STANFORD K 530.81 GERD 06/11/2011 346.90 KARINA RAFAELA HEADACHE 06/11/2011 493.90 AST HMA UNSPECIFIED 06/11/2011 530.81 GERD 06/11/2011 346.90 KARINA RAFAELA HEADACHE 06/11/2011 493.90 AST HMA UNSPECIFIED 06/11/2011 530.81 GERD 06/11/2011 346.90 KARINA RFAAELA HEADACHE 06/11/2011 493.90 AST HMA UNSPECIFIED 06/11/2011 530.81 GERD 06/11/2011 CAAL DO, [...] DO, STANFORD K 530.81 GERD 06/11/2011 GURU SEMICONDUCTOR LAB TECHNICIAN, [place] R 346.90 MIGRAINE HEADACHE 06/11/2011 GURU SEMICONDUCTOR LAB TECHNICIAN, [place] R 493.90 ASTHMA UNSPECIFIED 06/11/2011 GURU SEMICONDUCTOR LAB TECHNICIAN, [place] R 530.81 GERD 06/11/2011 CAAL [...] DO, STANFORD K 530.81 GERD 06/11/2011 GURU SEMICONDUCTOR LAB TECHNICIAN, [place] R 346.90 MIGRAINE HEADACHE 06/11/2011 GURU SEMICONDUCTOR LAB TECHNICIAN, [place] R 493.90 ASTHMA UNSPECIFIED 06/11/2011 GURU SEMICONDUCTOR LAB TECHNICIAN, [place] R 530.81 GERD 06/11/2011 CAAL DO, STANFORD K 346.90 MIGRAINE HEADACHE 06/11/2011 CAAL DO, STANFORD K 493.90 ASTHMA UNSPECIFIED 06/11/2011 CAAL DO, STANFORD K 530.81 GERD 06/11/2011 RUBINA HARLEY APRN 346. 90 MIGRAINE HEADACHE 06/11/2011 RUBINA HARLEY APRN 493. 90 ASTHMA UNSPECIFIED 06/11/2011 RUBINA HARLEY APRN 530. 81 GERD 06/11/2011 ELI BRICENO, LEO 346.90 MIGRAINE HEADACHE 06/11/2011 ELI BRICENO, LEO 493.90 ASTHMA UNSPECIFIED 06/11/2011 ELI BRICENO, LEO 530.81 GERD 06/11/2011 RUBINA HARLEY APRN 346. 90 MIGRAINE HEADACHE 06/11/2011 RUBINA HARLEY APRN 493. 90 ASTHMA UNSPECIFIED 06/11/2011 RUBINA HARLEY APRN 530. 81 GERD 06/11/2011 RAISTEO ARAYA APRN 346.90 MIGRAINE HEADACHE 06/11/2011 MARSHAL QUEZADA ARISTEO T 493.90 ASTHMA UNSPECIFIED 06/11/2011 MARSHAL QUEZADA ARISTEO T 530.81 GERD 06/11/2011 GURU SEMICONDUCTOR LAB TECHNICIAN, [place] R 346.90 MIGRAINE HEADACHE 06/11/2011 GURU SEMICONDUCTOR LAB TECHNICIAN, [place] R 493.90 ASTHMA UNSPECIFIED 06/11/2011 GURU SEMICONDUCTOR LAB TECHNICIAN, [place] R 530.81 GERD 07/23/2011 AFUA GARCIA [place] K 307.81 Headache, Tension 07/23/2011 307.81 Hea dache, Tension 07/23/2011 307.81 Hea dache, Tension 07/23/2011 CAAL DO, STANFORD K 307.81 Headache, Tension 07/23/2011 307.81 Hea dache, Tension 07/23/2011 CAAL DO [place] K 307.81 Headache, Tension 07/23/2011 CAAL DO, STANFORD K 307.81 Headache, Tension 07/23/2011 307.81 Hea dache, Tension 07/23/2011 307.81 Hea dache, Tension 07/23/2011 CAAL DO ST[place] K 307.81 Headache, Tension 07/23/2011 307.81 Hea dache, Tension 07/23/2011 307.81 Hea dache, Tension 07/23/2011 307.81 Hea dache, Tension 07/23/2011 CAAL DO ST[place] K 307.81 Headache, Tension 07/23/2011 CAAL DO [place] K 307.81 Headache, Tension 07/23/2011 CAAL DO, STANFORD K 307.81 Headache, Tension 07/23/2011 CAAL DO [place] K 307.81 Headache, Tension 07/23/2011 CAAL DO [place] K 307.81 Headache, Tension 07/23/2011 CAAL DO ST[place] K 307.81 Headache, Tension 07/23/2011 CAAL [...] 307.81 Headache, Tension 07/23/2011 RUBINA HARLEY APRN 307. 81 Headache, Tension 07/23/2011 LEO BENITEZ MD 307.81 Headache, Tension 07/23/2011 RUBINA HARLEY APRN 307. 81 Headache, Tension 07/23/2011 ARISTEO ARAYA APRN 307.81 Headache, Tension 07/23/2011 LOUIS GARVEY APRN R 307.81 Headache, Tension 08/14/2011 CAAL DO, STANFORD K 789.63 Abdominal Tenderness Right Lower Quadrant 08/14/2011 789.63 Abd ominal Tenderness Right Lower Quadrant 08/14/2011 789.63 Abd ominal Tenderness Right Lower Quadrant 08/14/2011 CAAL DO, STANFORD K 789.63 Abdominal Tenderness Right Lower Quadrant 08/14/2011 789.63 Abd ominal Tenderness Right Lower Quadrant 08/14/2011 CAAL DO, STANF[place] K 789.63 Abdominal Tenderness Right Lower Quadrant 08/14/2011 CAAL DO, STAN[place] K 789.63 Abdominal Tenderness Right Lower Quadrant 08/14/2011 789.63 Abd ominal Tenderness Right Lower Quadrant 08/14/2011 789.63 Abd ominal Tenderness Right Lower Quadrant 08/14/2011 CAAL DO, STANFORD K 789.63 Abdominal Tenderness Right Lower Quadrant 08/14/2011 789.63 Abd ominal Tenderness Right Lower Quadrant 08/14/2011 789.63 Abd ominal Tenderness Right Lower Quadrant 08/14/2011 789.63 Abd ominal Tenderness Right Lower Quadrant 08/14/2011 CAAL DO, [...] Abdominal Tenderness Right Lower Quadrant 08/14/2011 GURU BLEVINSNJENNLOUIS R 789.63 Abdominal Tenderness Right Lower Quadrant [...] Right Lower Quadrant 08/14/2011 RUBINA HARLEY APRN 789. 63 Abdominal Tenderness Right Lower Quadrant 08/14/2011 LEO BENITEZ MD 789.63 Abdominal Tenderness Right Lower Quadrant 08/14/2011 RUBINA HARLEY APRN 789. 63 Abdominal Tenderness Right Lower Quadrant 08/14/2011 ARISTEO ARAYA APRN 789.63 Abdominal Tenderness Right Lower Quadrant 08/14/2011 JENN GARVEY APRNINA R 789.63 Abdominal Tenderness Right Lower Quadrant 08/21/2011 STANFORD CAAL DO K 250.00 Diabetes Mellitus Without Mention Of Complication Type Ii Or Unspecified Type Not Stated As Uncontrolled 08/21/2011 STANFORD CAAL DO K 276.8 Hypopotassemia 08/21/2011 250.00 Jaqueline betes Mellitus Without Mention Of Complication Type Ii Or Unspecified Type Not Stated As Uncontrolled 08/21/2011 276.8 Hypo potassemia 08/21/2011 250.00 Jaqueline betes Mellitus Without Mention Of Complication Type Ii Or Unspecified Type Not Stated As Uncontrolled 08/21/2011 276.8 Hypo potassemia 08/21/2011 [place] CAAL DO K 250.00 Diabetes Mellitus Without Mention Of Complication Type Ii Or Unspecified Type Not Stated As Uncontrolled 08/21/2011 ST[place] CAAL DO K 276.8 Hypopotassemia 08/21/2011 250.00 Jaqueline betes Mellitus Without Mention Of Complication Type Ii Or Unspecified Type Not Stated As Uncontrolled 08/21/2011 276.8 Hypo potassemia 08/21/2011 CAAL DO, STANFORD K 250.00 Diabetes Mellitus Without Mention Of Complication Type Ii Or Unspecified Type Not Stated As Uncontrolled 08/21/2011 CAAL DO, STANFORD K 276.8 Hypopotassemia 08/21/2011 CAAL DO, STANFORD K 250.00 Diabetes Mellitus Without Mention Of Complication Type Ii Or Unspecified Type Not Stated As Uncontrolled 08/21/2011 AFUA DO STAN[place]ORD K 276.8 Hypopotassemia 08/21/2011 250.00 Jaqueline betes Mellitus Without Mention Of Complication Type Ii Or Unspecified Type Not Stated As Uncontrolled 08/21/2011 276.8 Hypo potassemia 08/21/2011 250.00 Jaqueline betes Mellitus Without Mention Of Complication Type Ii Or Unspecified Type Not Stated As Uncontrolled 08/21/2011 276.8 Hypo potassemia 08/21/2011 CAAL DO, STANFORD K 250.00 Diabetes Mellitus Without Mention Of Complication Type Ii Or Unspecified Type Not Stated As Uncontrolled 08/21/2011 AFUA DO ST[place] K 276.8 Hypopotassemia 08/21/2011 250.00 Jaqueline betes Mellitus Without Mention Of Complication Type Ii Or Unspecified Type Not Stated As Uncontrolled 08/21/2011 276.8 Hypo potassemia 08/21/2011 250.00 Jaqueline betes Mellitus Without Mention Of Complication Type Ii Or Unspecified Type Not Stated As Uncontrolled 08/21/2011 276.8 Hypo potassemia 08/21/2011 250.00 Jaqueline betes Mellitus Without Mention Of Complication Type Ii Or Unspecified Type Not Stated As Uncontrolled 08/21/2011 276.8 Hypo potassemia 08/21/2011 CAAL DO, STANFORD K 250.00 Diabetes Mellitus Without Mention Of Complication Type Ii Or Unspecified Type Not Stated As Uncontrolled 08/21/2011 CAAL DO, STANFORD K 276.8 Hypopotassemia 08/21/2011 CAAL DO, STANFORD K 250.00 Diabetes Mellitus Without Mention Of Complication Type Ii Or Unspecified Type Not Stated As Uncontrolled 08/21/2011 CAAL DO [place] K 276.8 Hypopotassemia 08/21/2011 CAAL DO, STANFORD K 250.00 Diabetes Mellitus Without Mention Of Complication Type Ii Or Unspecified Type Not Stated As Uncontrolled 08/21/2011 AFUA DO ST[place] K 276.8 Hypopotassemia 08/21/2011 CAAL DO, [...] CAAL DO, STANFORD K 276.8 Hypopotassemia 08/21/2011 LOUIS GARVEY APRN R 250.00 Diabetes Mellitus Without Mention Of Com plication Type Ii Or Unspecified Type Not Stated As Uncontrolled 08/21/2011 LOUIS GARVEY APRN R 276.8 Hypopotassemia 08/21/2011 CAAL DO, STANFORD [...] CAAL DO, STANFORD K 276.8 Hypopotassemia 08/21/2011 JENN GARVEY APRNINA R 250.00 Diabetes Mellitus Without Mention Of Com plication Type Ii Or Unspecified Type Not Stated As Uncontrolled 08/21/2011 LOUIS GARVEY APRN R 276.8 Hypopotassemia 08/21/2011 CAAL DO, STANFORD K 250.00 Diabetes Mellitus Without Mention Of Complication Type Ii Or Unspecified Type Not Stated As Uncontrolled 08/21/2011 CAAL DO, STAN[place] K 276.8 Hypopotassemia 08/21/2011 RUBINA HARLEY APRN 250. 00 Diabetes Mellitus Without Mention Of Complication Type Ii Or Unspecified Type Not Stated As Uncontrolled 08/21/2011 RUBINA HARLEY APRN 276. 8 Hypopotassemia 08/21/2011 LEO BENITEZ MD 250.00 Diabetes Mellitus Without Mention Of Complication Type Ii Or Unspecified Type Not Stated As Uncontrolled 08/21/2011 LEO BENITEZ MD 276.8 Hypopotassemia 08/21/2011 RUBINA HARLEY APRN 250. 00 Diabetes Mellitus Without Mention Of Complication Type Ii Or Unspecified Type Not Stated As Uncontrolled 08/21/2011 RUBINA HARLEY APRN 276. 8 Hypopotassemia 08/21/2011 ARISTEO ARAYA APRN T 250.00 Diabetes Mellitus Without Mention Of Com plication Type Ii Or Unspecified Type Not Stated As Uncontrolled 08/21/2011 ARISTEO ARAYA APRN 27 6.8 Hypopotassemia 08/21/2011 LOUIS GARVEY APRN R 250.00 Diabetes Mellitus Without Mention Of Com plication Type Ii Or Unspecified Type Not Stated As Uncontrolled 08/21/2011 LOUIS GARVEY APRN R 276.8 Hypopotassemia 08/25/2011 [place] CAAL DO 790.4 Abnormal Lft (elevated) 08/25/2011 790.4 Abno rmal Lft (elevated) 08/25/2011 790.4 Abno rmal Lft (elevated) 08/25/2011 [place] CAAL DO 790.4 Abnormal Lft (elevated) 08/25/2011 790.4 Abno rmal Lft (elevated) 08/25/2011 [place] CAAL DO K 790.4 Abnormal Lft (elevated) 08/25/2011 [place] CAAL DO 790.4 Abnormal Lft (elevated) 08/25/2011 790.4 Abno rmal Lft (elevated) 08/25/2011 790.4 Abno rmal Lft (elevated) 08/25/2011 [place] CAAL DO K 790.4 Abnormal Lft (elevated) 08/25/2011 790.4 Abno rmal Lft (elevated) 08/25/2011 790.4 Abno rmal Lft (elevated) 08/25/2011 790.4 Abno rmal Lft (elevated) 08/25/2011 CAAL DO, STAN[place]ORD K [...] Abnormal Lft (elevated) 08/25/2011 RUBINA HARLEY APRN 790. 4 Abnormal Lft (elevated) 08/25/2011 LEO BENITEZ MD 790.4 Abnormal Lft (elevated) 08/25/2011 RUBINA HARLEY APRN 790. 4 Abnormal Lft (elevated) 08/25/2011 ARISTEO ARAYA APRN 79 0.4 Abnormal Lft (elevated) 08/25/2011 LOUIS GARVEY APRN 790.4 Abnormal Lft (elevated) 09/03/2011 CAAL DO, STANFORD K 790.29 Hyperglycemia 09/03/2011 790.29 Hyp erglycemia 09/03/2011 790.29 Hyp erglycemia 09/03/2011 CAAL DO, STAN[place] K 790.29 Hyperglycemia 09/03/2011 790.29 Hyp erglycemia 09/03/2011 CAAL DO, ST[place] K 790.29 Hyperglycemia 09/03/2011 CAAL DO, ST[place] K 790.29 Hyperglycemia 09/03/2011 790.29 Hyp erglycemia 09/03/2011 790.29 Hyp erglycemia 09/03/2011 CAAL DO, ST[place] K 790.29 Hyperglycemia 09/03/2011 790.29 Hyp erglycemia 09/03/2011 790.29 Hyp erglycemia 09/03/2011 790.29 Hyp erglycemia 09/03/2011 CAAL DO, ST[place] K 790.29 Hyperglycemia 09/03/2011 CAAL DO, ST[place] K 790.29 Hyperglycemia 09/03/2011 CAAL DO, STAN[place] K 790.29 Hyperglycemia 09/03/2011 CAAL DO, ST[place] K 790.29 Hyperglycemia 09/03/2011 CAAL DO, ST[place] K 790.29 Hyperglycemia 09/03/2011 CAAL DO, ST[place] K 790.29 Hyperglycemia 09/03/2011 CAAL DO, ST[place] K 790.29 Hyperglycemia 09/03/2011 JENN GARVEY APRNINA R 790.29 Hyperglycemia 09/03/2011 CAAL DO, [place] K 790.29 Hyperglycemia 09/03/2011 CAAL DO, [place] K 790.29 Hyperglycemia 09/03/2011 CAAL DO, STAN[place] K 790.29 Hyperglycemia 09/03/2011 GURU QUEZADA [place] R 790.29 Hyperglycemia 09/03/2011 CAAL DO, ST[place] K 790.29 Hyperglycemia 09/03/2011 RUBINA HARLEY APRN 790. 29 Hyperglycemia 09/03/2011 LEO BENITEZ MD 790.29 Hyperglycemia 09/03/2011 RUBINA HARLEY APRN 790. 29 Hyperglycemia 09/03/2011 ARISTEO ARAYA APRN 790.29 Hyperglycemia 09/03/2011 GURU QUEZADA [place] R 790.29 Hyperglycemia 10/23/2011 CAAL DO, STAN[place]ORD K 558.9 Other And Unspecified Noninfectious Gastroenteritis And Colitis 10/23/2011 558.9 Othe r And Unspecified Noninfectious Gastroenteritis And Colitis 10/23/2011 558.9 Othe r And Unspecified Noninfectious Gastroenteritis And Colitis 10/23/2011 CAAL DOCLEMENTINEA K 558.9 Other And Unspecified Noninfectious Gastroenteritis And Colitis 10/23/2011 558.9 Othe r And Unspecified Noninfectious Gastroenteritis And Colitis 10/23/2011 CAAL CLEMENTINE GARCIAA K 558.9 Other And Unspecified Noninfectious Gastroenteritis And Colitis 10/23/2011 CAAL DO, ST[place] K 558.9 Other And Unspecified Noninfectious Gastroenteritis And Colitis 10/23/2011 558.9 Othe r And Unspecified Noninfectious Gastroenteritis And Colitis 10/23/2011 558.9 Othe r And Unspecified Noninfectious Gastroenteritis And Colitis 10/23/2011 CAAL DO, ST[place] K 558.9 Other And Unspecified Noninfectious Gastroenteritis And Colitis 10/23/2011 558.9 Othe r And Unspecified Noninfectious Gastroenteritis And Colitis 10/23/2011 558.9 Othe r And Unspecified Noninfectious Gastroenteritis And Colitis 10/23/2011 558.9 Othe r And Unspecified Noninfectious Gastroenteritis And Colitis 10/23/2011 [...] R 558.9 Other And Unspecified Noninfectious Gastroenteritis An d Colitis 10/23/2011 CAAL DO, STAN[place] K 558.9 Other And Unspecified Noninfectious Gastroenteritis And Colitis 10/23/2011 CAAL DO, STAN[place] K 558.9 Other And Unspecified Noninfectious Gastroenteritis And Colitis 10/23/2011 CAAL DO, STAN[place] K 558.9 Other And Unspecified Noninfectious Gastroenteritis And Colitis 10/23/2011 LOUIS GARVEY APRN R 558.9 Other And Unspecified Noninfectious Gastroenteritis An d Colitis 10/23/2011 CAAL DO, STANFORD K 558.9 Other And Unspecified Noninfectious Gastroenteritis And Colitis 10/23/2011 RUBINA HARLEY APRN 558. 9 Other And Unspecified Noninfectious Gastroenteritis And Colitis 10/23/2011 ELI BRICENO, LEO 558.9 Other And Unspecified Noninfectious Gastroenteritis And Colitis 10/23/2011 RUBINA HARLEY APRN 558. 9 Other And Unspecified Noninfectious Gastroenteritis And Colitis 10/23/2011 ARISTEO ARAYA APRN 55 8.9 Other And Unspecified Noninfectious Gastroenteritis And Colitis 10/23/2011 LOUIS GARVEY APRN 558.9 Other And Unspecified Noninfectious Gastroenteritis An d Colitis 11/04/2011 CAAL DO, STANFORD K 789.00 ABDOMINAL PAIN UNSPECIFIED SITE 11/04/2011 789.00 ABD OMINAL PAIN UNSPECIFIED SITE 11/04/2011 789.00 ABD OMINAL PAIN UNSPECIFIED SITE 11/04/2011 CAAL DO, STANFORD K 789.00 Abdominal Pain Unspecified Site 11/04/2011 789.00 Abd ominal Pain Unspecified Site 11/04/2011 CAAL DO, STAN[place] K 789.00 Abdominal Pain Unspecified Site 11/04/2011 CAAL DO, ST[place] K 789.00 Abdominal Pain Unspecified Site 11/04/2011 789.00 Abd ominal Pain Unspecified Site 11/04/2011 789.00 Abd ominal Pain Unspecified Site 11/04/2011 CAAL DO, ST[place] K 789.00 Abdominal Pain Unspecified Site 11/04/2011 789.00 Abd ominal Pain Unspecified Site 11/04/2011 789.00 Abd ominal Pain Unspecified Site 11/04/2011 789.00 Abd ominal Pain Unspecified Site 11/04/2011 CAAL DO, ST[place] [...] 789.00 Abdominal Pain Unspecified Site 11/04/2011 CAAL , ST[place] K 789.00 Abdominal Pain Unspecified Site 11/04/2011 RUBINA HARLEY APRN 789. 00 Abdominal Pain Unspecified Site 11/04/2011 LEO BENITEZ MD 789.00 Abdominal Pain Unspecified Site 11/04/2011 RUBINA HARLEY APRN 789. 00 Abdominal Pain Unspecified Site 11/04/2011 ARISTEO ARAYA APRN 789.00 Abdominal Pain Unspecified Site 11/04/2011 LOUIS GARVEY APRN 789.00 Abdominal Pain Unspecified Site 12/18/2011 ACAL CLEMENTINE GARCIAA K 553.3 DIAPHRAGMATIC HERNIA WITHOUT OBSTRUCTION OR GANGRENE 12/18/2011 CLEMENTINE CAAL DOA K 787.01 NAUSEA WITH VOMITING 12/18/2011 553.3 DIAP HRAGMATIC HERNIA WITHOUT OBSTRUCTION OR GANGRENE 12/18/2011 787.01 LUIS DANIEL SEA WITH VOMITING 12/18/2011 553.3 DIAP HRAGMATIC HERNIA WITHOUT OBSTRUCTION OR GANGRENE 12/18/2011 787.01 LUIS DANIEL SEA WITH VOMITING 12/18/2011 CAAL CLEMENTINE GARCIAA K 553.3 DIAPHRAGMATIC HERNIA WITHOUT OBSTRUCTION OR GANGRENE 12/18/2011 CLEMENTINE CAAL DOA K 787.01 NAUSEA WITH VOMITING 12/18/2011 553.3 DIAP HRAGMATIC HERNIA WITHOUT OBSTRUCTION OR GANGRENE 12/18/2011 787.01 Luis Daniel sea With Vomiting 12/18/2011 CAAL DO [place] K 553.3 DIAPHRAGMATIC HERNIA WITHOUT OBSTRUCTION OR GANGRENE 12/18/2011 AFUA GARCIA [place] K 787.01 Nausea With Vomiting 12/18/2011 CAAL DO [place] K 553.3 DIAPHRAGMATIC HERNIA WITHOUT OBSTRUCTION OR GANGRENE 12/18/2011 CAAL DO [place] K 787.01 Nausea With Vomiting 12/18/2011 553.3 DIAP HRAGMATIC HERNIA WITHOUT OBSTRUCTION OR GANGRENE 12/18/2011 787.01 Luis Daniel sea With Vomiting 12/18/2011 553.3 DIAP HRAGMATIC HERNIA WITHOUT OBSTRUCTION OR GANGRENE 12/18/2011 787.01 Luis Daniel sea With Vomiting 12/18/2011 CAAL DO, ST[place] K 553.3 DIAPHRAGMATIC HERNIA WITHOUT OBSTRUCTION OR GANGRENE 12/18/2011 CAAL DO, ST[place] K 787.01 Nausea With Vomiting 12/18/2011 553.3 DIAP HRAGMATIC HERNIA WITHOUT OBSTRUCTION OR GANGRENE 12/18/2011 787.01 Luis Daniel sea With Vomiting 12/18/2011 553.3 DIAP HRAGMATIC HERNIA WITHOUT OBSTRUCTION OR GANGRENE 12/18/2011 787.01 Luis Daniel sea With Vomiting 12/18/2011 553.3 DIAP HRAGMATIC HERNIA WITHOUT OBSTRUCTION OR GANGRENE 12/18/2011 787.01 Luis Daniel sea With Vomiting 12/18/2011 CAAL DO, ST[place] K [...] DIAPHRAGMATIC HERNIA WITHOUT OBSTRUCTION OR GANGRENE 12/18/2011 GURU SEMICONDUCTOR LAB TECHNICIAN, [place] R 787.01 Nausea With Vomiting 12/18/2011 CAAL [...] APRN R 787.01 Nausea With Vomiting 12/18/2011 AFUA DOCLEMENTINEA K 553.3 DIAPHRAGMATIC HERNIA WITHOUT OBSTRUCTION OR GANGRENE 12/18/2011 CLEMENTINE CAAL DOA K 787.01 Nausea With Vomiting 12/18/2011 RUBINA HARLEY APRN 553. 3 DIAPHRAGMATIC HERNIA WITHOUT OBSTRUCTION OR GANGRENE 12/18/2011 RUBINA HARLEY APRN 787. 01 Nausea With Vomiting 12/18/2011 LEO BENITEZ MD 553.3 DIAPHRAGMATIC HERNIA WITHOUT OBSTRUCTION OR GANGRENE 12/18/2011 LEO BENITEZ MD 787.01 Nausea With Vomiting 12/18/2011 RUBINA HARLEY APRN 553. 3 DIAPHRAGMATIC HERNIA WITHOUT OBSTRUCTION OR GANGRENE 12/18/2011 RUBINA HARLEY APRN 787. 01 Nausea With Vomiting 12/18/2011 ARISTEO ARAYA APRN 55 3.3 DIAPHRAGMATIC HERNIA WITHOUT OBSTRUCTION OR GANGRENE 12/18/2011 ARISTEO ARAYA APRN 787.01 Nausea With Vomiting 12/18/2011 LOUIS GARVEY APRN R 553.3 DIAPHRAGMATIC HERNIA WITHOUT OBSTRUCTION OR GANGRENE 12/18/2011 LOUIS GARVEY APRN R 787.01 Nausea With Vomiting 01/05/2012 CLEMENTINE CAAL DOA K 787.02 NAUSEA ALONE 01/05/2012 AFUA DO [place] K 787.1 HEARTBURN 01/05/2012 AFUA DO [place] K 789.01 ABDOMINAL PAIN RIGHT UPPER QUADRANT 01/05/2012 CLEMENTINE CAAL DOA K 789.06 ABDOMINAL PAIN EPIGASTRIC 01/05/2012 787.02 LUIS DANIEL SEA ALONE 01/05/2012 787.1 HEAR TBURN 01/05/2012 789.01 ABD OMINAL PAIN RIGHT UPPER QUADRANT 01/05/2012 789.06 ABD OMINAL PAIN EPIGASTRIC 01/05/2012 787.02 LUIS DANIEL SEA ALONE 01/05/2012 787.1 HEAR TBURN 01/05/2012 789.01 ABD OMINAL PAIN RIGHT UPPER QUADRANT 01/05/2012 789.06 ABD OMINAL PAIN EPIGASTRIC 01/05/2012 CAAL [place] GARCIA K 787.02 Nausea Alone 01/05/2012 CAAL CLEMENTINE GARCIAA K 787.1 HEARTBURN 01/05/2012 [place] CAAL DO K 789.01 ABDOMINAL PAIN RIGHT UPPER QUADRANT 01/05/2012 CAAL [place] GARCIA K 789.06 ABDOMINAL PAIN EPIGASTRIC 01/05/2012 787.02 Luis Daniel sea Alone 01/05/2012 787.1 Hear tburn 01/05/2012 789.01 Abd ominal Pain Right Upper Quadrant 01/05/2012 789.06 Abd ominal Pain Epigastric 01/05/2012 CAAL [place] GARCIA K 787.02 Nausea Alone 01/05/2012 CAAL CLEMENTINE GARCIAA K 787.1 Heartburn 01/05/2012 [place] CAAL DO K 789.01 Abdominal Pain Right Upper Quadrant 01/05/2012 CAAL [place] GARCIA K 789.06 Abdominal Pain Epigastric 01/05/2012 CAAL [place] GARCIA K 787.02 Nausea Alone 01/05/2012 [place] CAAL DO K 787.1 Heartburn 01/05/2012 [place] CAAL DO K 789.01 Abdominal Pain Right Upper Quadrant 01/05/2012 CAAL [place] GARCIA K 789.06 Abdominal Pain Epigastric 01/05/2012 787.02 Luis Daniel sea Alone 01/05/2012 787.1 Hear tburn 01/05/2012 789.01 Abd ominal Pain Right Upper Quadrant 01/05/2012 789.06 Abd ominal Pain Epigastric 01/05/2012 787.02 Luis Daniel sea Alone 01/05/2012 787.1 Hear tburn 01/05/2012 789.01 Abd ominal Pain Right Upper Quadrant 01/05/2012 789.06 Abd ominal Pain Epigastric 01/05/2012 CAAL DO, STAN[place] K 787.02 Nausea Alone 01/05/2012 CAAL DO, ST[place] K 787.1 Heartburn 01/05/2012 CAAL DO, ST[place] K 789.01 Abdominal Pain Right Upper Quadrant 01/05/2012 CAAL DO, STAN[place] K 789.06 Abdominal Pain Epigastric 01/05/2012 787.02 Luis Daniel sea Alone 01/05/2012 787.1 Hear tburn 01/05/2012 789.01 Abd ominal Pain Right Upper Quadrant 01/05/2012 789.06 Abd ominal Pain Epigastric 01/05/2012 787.02 Luis Daniel sea Alone 01/05/2012 787.1 Hear tburn 01/05/2012 789.01 Abd ominal Pain Right Upper Quadrant 01/05/2012 789.06 Abd ominal Pain Epigastric 01/05/2012 787.02 Luis Daniel sea Alone 01/05/2012 787.1 Hear tburn 01/05/2012 789.01 Abd ominal Pain Right Upper Quadrant 01/05/2012 789.06 Abd ominal Pain Epigastric 01/05/2012 CAAL DO, ST[place] K [...] K 789.06 Abdominal Pain Epigastric 01/05/2012 GURU SEMICONDUCTOR LAB TECHNICIAN, [place] R 787.02 Nausea Alone 01/05/2012 GURU SEMICONDUCTOR LAB TECHNICIAN, [place] R 787.1 Heartburn 01/05/2012 GURU SEMICONDUCTOR LAB TECHNICIAN, [place] R 789.01 Abdominal Pain Right Upper Quadrant 01/05/2012 GURU SEMICONDUCTOR LAB TECHNICIAN, [place] R 789.06 Abdominal Pain Epigastric 01/05/2012 CAAL DO, ST[place] K 787.02 Nausea Alone 01/05/2012 CAAL DO, ST[place] K 787.1 Heartburn 01/05/2012 CAAL DO, ST[place] K 789.01 Abdominal Pain Right Upper Quadrant 01/05/2012 CAAL DO, [place] K 789.06 Abdominal Pain Epigastric 01/05/2012 RUBINA HARLEY APRN 787. 02 Nausea Alone 01/05/2012 RUBINA HARLEY APRN 787. 1 Heartburn 01/05/2012 RUBINA HARLEY APRN 789. 01 Abdominal Pain Right Upper Quadrant 01/05/2012 RUBINA HARLEY APRN 789. 06 Abdominal Pain Epigastric 01/05/2012 LEO BENITEZ MD 787.02 Nausea Alone 01/05/2012 LEO BENITEZ MD 787.1 Heartburn 01/05/2012 LEO BENITEZ MD 789.01 Abdominal Pain Right Upper Quadrant 01/05/2012 LEO BENITEZ MD 789.06 Abdominal Pain Epigastric 01/05/2012 RUBINA HARLEY APRN 787. 02 Nausea Alone 01/05/2012 RUBINA HARLEY APRN 787. 1 Heartburn 01/05/2012 RUBINA HARLEY APRN 789. 01 Abdominal Pain Right Upper Quadrant 01/05/2012 RUBINA HARLEY APRN 789. 06 Abdominal Pain Epigastric 01/05/2012 ARISTEO ARAYA APRN 787.02 Nausea Alone 01/05/2012 ARISTEO ARAYA APRN 78 7.1 Heartburn 01/05/2012 ARISTEO ARAYA APRN 789.01 Abdominal Pain Right Upper Quadrant 01/05/2012 MARSHAL SEMICONDUCTOR LAB TECHNICIAN, ARISTEO T 789.06 Abdominal Pain Epigastric 01/05/2012 GURU BLEVINSN, [place] R 787.02 Nausea Alone 01/05/2012 GURU BLEVINSNJENNLOUIS R 787.1 Heartburn 01/05/2012 GURU BLEVINSNLOUIS R 789.01 Abdominal Pain Right Upper Quadrant 01/05/2012 GURU BLEVINSNLOUIS R 789.06 Abdominal Pain Epigastric 03/18/2012 CAAL DO, STANFORD K 782.0 DISTURBANCE OF SKIN SENSATION 03/18/2012 782.0 DIST URBANCE OF SKIN SENSATION 03/18/2012 782.0 DIST URBANCE OF SKIN SENSATION 03/18/2012 CAAL DO, STAN[place] K 782.0 Disturbance Of Skin Sensation 03/18/2012 782.0 Dist urbance Of Skin Sensation 03/18/2012 CAAL DO, ST[place] K 782.0 Disturbance Of Skin Sensation 03/18/2012 CAAL DO, ST[place] K 782.0 Disturbance Of Skin Sensation 03/18/2012 782.0 Dist urbance Of Skin Sensation 03/18/2012 782.0 Dist urbance Of Skin Sensation 03/18/2012 CAAL DO, STAN[place] K 782.0 Disturbance Of Skin Sensation 03/18/2012 782.0 Dist urbance Of Skin Sensation 03/18/2012 782.0 Dist urbance Of Skin Sensation 03/18/2012 782.0 Dist urbance Of Skin Sensation 03/18/2012 CAAL DO, STAN[place]ORD [...] 782.0 Disturbance Of Skin Sensation 03/18/2012 GURU QUEZADA, [place] R 782.0 Disturbance Of Skin Sensation 03/18/2012 CAAL DO, [place] K 782.0 Disturbance Of Skin Sensation 03/18/2012 RUBINA HARLEY APRN 782. 0 Disturbance Of Skin Sensation 03/18/2012 LEO BENITEZ MD 782.0 Disturbance Of Skin Sensation 03/18/2012 RUBINA HARLEY APRN 782. 0 Disturbance Of Skin Sensation 03/18/2012 ARISTEO ARAYA APRN 78 2.0 Disturbance Of Skin Sensation 03/18/2012 [place] GARVEY APRN R 782.0 Disturbance Of Skin Sensation 04/24/2012 CAAL DO, STANFORD K 466.0 BRONCHITIS, ACUTE 04/24/2012 CAAL DO, STANFORD K 786.07 WHEEZING 04/24/2012 CAAL DO, STANF[place] K 786.2 COUGH 04/24/2012 466.0 BRON CHITIS, ACUTE 04/24/2012 786.07 WHE EZING 04/24/2012 786.2 COUGH 04/24/2012 466.0 BRON CHITIS, ACUTE 04/24/2012 786.07 WHE EZING 04/24/2012 786.2 COUGH 04/24/2012 CAAL DO, STANFORD K 466.0 Bronchitis, Acute 04/24/2012 CAAL DO, STANFORD K 786.07 Wheezing 04/24/2012 CAAL DO, STANF[place] K 786.2 Cough 04/24/2012 466.0 Bron chitis, Acute 04/24/2012 786.07 Whe ezing 04/24/2012 786.2 Cough 04/24/2012 CAAL DO, STANFORD K 466.0 Bronchitis, Acute 04/24/2012 CAAL DO, STANFORD K 786.07 Wheezing 04/24/2012 CAAL DO, STANF[place] K 786.2 Cough 04/24/2012 CAAL DO, STANFORD K 466.0 Bronchitis, Acute 04/24/2012 CAAL DO, STAN[place]ORD K 786.07 Wheezing 04/24/2012 CAAL DO, STANFORD K 786.2 Cough 04/24/2012 466.0 Bron chitis, Acute 04/24/2012 786.07 Whe ezing 04/24/2012 786.2 Cough 04/24/2012 466.0 Bron chitis, Acute 04/24/2012 786.07 Whe ezing 04/24/2012 786.2 Cough 04/24/2012 CAAL DO, STANFORD K 466.0 Bronchitis, Acute 04/24/2012 CAAL DO, STANFORD K 786.07 Wheezing 04/24/2012 CAAL DO, STANFORD K 786.2 Cough 04/24/2012 466.0 Bron chitis, Acute 04/24/2012 786.07 Whe ezing 04/24/2012 786.2 Cough 04/24/2012 466.0 Bron chitis, Acute 04/24/2012 786.07 Whe ezing 04/24/2012 786.2 Cough 04/24/2012 466.0 Bron chitis, Acute 04/24/2012 786.07 Whe ezing 04/24/2012 786.2 Cough 04/24/2012 CAAL DO, STANFORD [...] CAAL DO, STANFORD K 786.2 Cough 04/24/2012 LOUIS GARVEY APRN R 466.0 Bronchitis, Acute 04/24/2012 G[employer]U [employer] TECHNICIAN, LOUIS R 786.07 Wheezing 04/24/2012 GURU SEMICONDUCTOR LAB TECHNICIAN, LOUIS R 786.2 Cough 04/24/2012 CAAL [...] DO, STANFORD K 786.2 Cough 04/24/2012 GURU SEMICONDUCTOR LAB TECHNICIAN, LOUIS R 466.0 Bronchitis, Acute 04/24/2012 GURU SEMICONDUCTOR LAB TECHNICIAN, LOUIS R 786.07 Wheezing 04/24/2012 GURU SEMICONDUCTOR LAB TECHNICIAN, LOUIS R 786.2 Cough 04/24/2012 CAAL DO, STANFORD K 466.0 Bronchitis, Acute 04/24/2012 CAAL DO, STANFORD K 786.07 Wheezing 04/24/2012 CAAL DO, STANFORD K 786.2 Cough 04/24/2012 RUBINA HARLEY APRN 466. 0 Bronchitis, Acute 04/24/2012 RUBINA HARLEY APRN 786. 07 Wheezing 04/24/2012 RUBINA HARLEY APRN D 786. 2 Cough 04/24/2012 LEO BENITEZ MD 466.0 Bronchitis, Acute 04/24/2012 LEO BENITEZ MD 786.07 Wheezing 04/24/2012 LEO BENITEZ MD 786.2 Cough 04/24/2012 RUBINA HARLEY APRN 466. 0 Bronchitis, Acute 04/24/2012 RUBINA HARLEY APRN 786. 07 Wheezing 04/24/2012 RUBINA HARLEY APRN 786. 2 Cough 04/24/2012 ARISTEO ARAYA APRN T 46 6.0 Bronchitis, Acute 04/24/2012 ARISTEO ARAYA APRN T 786.07 Wheezing 04/24/2012 ARISTEO ARAYA APRN T 78 6.2 Cough 04/24/2012 GURU QUEZADA, [place] R 466.0 Bronchitis, Acute 04/24/2012 GURU BLEVINSN, [place] R 786.07 Wheezing 04/24/2012 LOU[place] GARVEY APRN R 786.2 Cough 05/01/2012 CAAL DO, STAN[place] K 719.46 PAIN IN JOINT INVOLVING LOWER LEG 05/01/2012 719.46 OJ N IN JOINT INVOLVING LOWER LEG 05/01/2012 719.46 OJ N IN JOINT INVOLVING LOWER LEG 05/01/2012 CAAL DO, STANFORD K 719.46 PAIN IN JOINT INVOLVING LOWER LEG 05/01/2012 719.46 Oj n In Joint Involving Lower Leg 05/01/2012 CAAL DO, ST[place] K 719.46 Pain In Joint Involving Lower Leg 05/01/2012 CAAL DO, STAN[place]ORD K 719.46 Pain In Joint Involving Lower Leg 05/01/2012 719.46 Oj n In Joint Involving Lower Leg 05/01/2012 719.46 Oj n In Joint Involving Lower Leg 05/01/2012 CAAL DO, STAN[place]ORD K 719.46 Pain In Joint Involving Lower Leg 05/01/2012 719.46 Oj n In Joint Involving Lower Leg 05/01/2012 719.46 Oj n In Joint Involving Lower Leg 05/01/2012 719.46 Oj n In Joint Involving Lower Leg 05/01/2012 CAAL [...] Involving Lower Leg 05/01/2012 RUBINA HARLEY APRN 719. 46 Pain In Joint Involving Lower Leg 05/01/2012 LEO BENITEZ MD 719.46 Pain In Joint Involving Lower Leg 05/01/2012 RUBINA HARLEY APRN 719. 46 Pain In Joint Involving Lower Leg 05/01/2012 [...] APRN R 724.5 BACKACHE 07/01/2012 CAAL DO, SATNFORD K 724.5 BACKACHE 07/01/2012 RUBINA HARLEY APRN 724. 5 BACKACHE 07/01/2012 LEO BENITEZ MD 724.5 BACKACHE 07/01/2012 RUBINA HARLEY APRN 724. 5 BACKACHE 07/01/2012 ARISTEO ARAYA APRN 72 4.5 BACKACHE 07/01/2012 GURU QUEZADA [place] R 724.5 BACKACHE 07/08/2012 CAAL DO, [...] DO, STANFORD K 724.2 LUMBAGO 07/08/2012 GURU QUEZADA [place] R 724.2 LUMBAGO 07/08/2012 CAAL DO, STAN[place] K 724.2 LUMBAGO 07/08/2012 RUBINA HARLEY APRN 724. 2 LUMBAGO 07/08/2012 LEO BENITEZ MD 724.2 LUMBAGO 07/08/2012 RUBINA HARLEY APRN 724. 2 LUMBAGO 07/08/2012 ARISTEO ARAYA APRN 72 4.2 LUMBAGO 07/08/2012 LOUIS GARVEY APRN R 724.2 LUMBAGO 08/02/2012 CAAL DO, STANFORD K 790.29 ABNORMAL GLUCOSE 08/02/2012 790.29 ABN ORMAL GLUCOSE 08/02/2012 790.29 ABN ORMAL GLUCOSE 08/02/2012 CAAL DO, STAN[place]ORD K 790.29 ABNORMAL GLUCOSE 08/02/2012 790.29 ABN ORMAL GLUCOSE 08/02/2012 790.29 ABN ORMAL GLUCOSE 08/02/2012 790.29 ABN ORMAL GLUCOSE 08/02/2012 CAAL DO, STANFORD K 790.29 [...] 790.29 ABNORMAL GLUCOSE 08/02/2012 RUBINA HARLEY APRN 790. 29 ABNORMAL GLUCOSE 08/02/2012 LEO BENITEZ MD 790.29 ABNORMAL GLUCOSE 08/02/2012 RUBINA HARLEY APRN 790. 29 ABNORMAL GLUCOSE 08/02/2012 ARISTEO ARAYA APRN 790.29 ABNORMAL GLUCOSE 08/02/2012 LOUIS GARVEY APRN R 790.29 ABNORMAL GLUCOSE 08/18/2012 466.0 ACUT E BRONCHITIS 08/18/2012 466.0 ACUT E BRONCHITIS 08/18/2012 CAAL DO, STANFORD K 466.0 ACUTE BRONCHITIS 08/18/2012 466.0 ACUT E BRONCHITIS 08/18/2012 466.0 ACUT E BRONCHITIS 08/18/2012 466.0 ACUT E BRONCHITIS 08/18/2012 CAAL DO, STANFORD K 466.0 [...] STANFORD K 466.0 ACUTE BRONCHITIS 08/18/2012 GURU QUEZADA [place] R 466.0 ACUTE BRONCHITIS 08/18/2012 CAAL DO, STANFORD K 466.0 ACUTE BRONCHITIS 08/18/2012 RUBINA HARLEY APRN 466. 0 ACUTE BRONCHITIS 08/18/2012 LEO BENITEZ MD 466.0 ACUTE BRONCHITIS 08/18/2012 RUBINA HARLEY APRN 466. 0 ACUTE BRONCHITIS 08/18/2012 ARISTEO ARAYA APRN 46 6.0 ACUTE BRONCHITIS 08/18/2012 GURU QUEZADA [place] R 466.0 ACUTE BRONCHITIS 08/26/2012 786.05 natalio rtness of breath 08/26/[address] pain or discomfort 08/26/2012 CAAL DO, STANFORD K 786.05 shortness of breath 08/26/2012 CAAL DO, STANFORD K 786.50 chest pain or discomfort 08/26/2012 786.05 natalio rtness of breath 08/26/[address] pain or discomfort 08/26/2012 786.05 natalio rtness of breath 08/26/[address] pain or discomfort 08/26/2012 786.05 NATALIO RTNESS OF BREATH 08/26/[address] PAIN OR DISCOMFORT 08/26/2012 CAAL DO, STANFORD [...] 786.50 CHEST PAIN OR DISCOMFORT 08/26/2012 GURU SEMICONDUCTOR LAB TECHNICIAN, [place] R 786.05 SHORTNESS OF BREATH 08/26/2012 GURU SEMICONDUCTOR LAB TECHNICIAN, [place] R 786.50 CHEST PAIN OR DISCOMFORT [...] 786.50 CHEST PAIN OR DISCOMFORT 08/26/2012 GURU SEMICONDUCTOR LAB TECHNICIAN, [place] R 786.05 SHORTNESS OF BREATH 08/26/2012 GURU SEMICONDUCTOR LAB TECHNICIAN, [place] R 786.50 CHEST PAIN OR DISCOMFORT 08/26/2012 CAAL DO, STANFORD K 786.05 SHORTNESS OF BREATH 08/26/2012 CAAL DO, ST[place] K 786.50 CHEST PAIN OR DISCOMFORT 08/26/2012 RUBINA HARLEY APRN 786. 05 SHORTNESS OF BREATH 08/26/2012 RUBINA HARLEY APRN 786. 50 CHEST PAIN OR DISCOMFORT 08/26/2012 LEO BENITEZ MD 786.05 SHORTNESS OF BREATH 08/26/2012 LEO BENITEZ MD 786.50 CHEST PAIN OR DISCOMFORT 08/26/2012 RUBINA HARLEY APRN 786. 05 SHORTNESS OF BREATH 08/26/2012 RUBINA HARLEY APRN 786. 50 CHEST PAIN OR DISCOMFORT 08/26/2012 ARISTEO ARAYA APRN 786.05 SHORTNESS OF BREATH 08/26/2012 MARSHAL QUEZADA ARISTEO Jaswant 786.50 CHEST PAIN OR DISCOMFORT 08/26/2012 GURU QUEZADA, [place] R 786.05 SHORTNESS OF BREATH 08/26/2012 GURU BLEVINSN, [place] R 786.50 CHEST PAIN OR DISCOMFORT 09/04/2012 CAAL DO, STANFORD K 790.95 ELEVATED C-REACTIVE PROTEIN (CRP) 09/04/2012 790.95 JOSE VATED C- REACTIVE PROTEIN (CRP) 09/04/2012 790.95 JOSE VATED C- REACTIVE PROTEIN (CRP) 09/04/2012 790.95 JOSE VATED C- REACTIVE PROTEIN (CRP) 09/04/2012 CAAL DO, [...] C-REACTIVE PROTEIN (CRP) 09/04/2012 RUBINA HARLEY APRN 790. 95 ELEVATED C-REACTIVE PROTEIN (CRP) 09/04/2012 LEO BNEITEZ MD 790.95 ELEVATED C-REACTIVE PROTEIN (CRP) 09/04/2012 RUBINA HARLEY APRN 790. 95 ELEVATED C-REACTIVE PROTEIN (CRP) 09/04/2012 ARISTEO ARAYA APRN 790.95 ELEVATED C-REACTIVE PROTEIN (CRP) 09/04/2012 LOUIS GARVEY APRN R 790.95 ELEVATED C-REACTIVE PROTEIN (CRP) 11/13/2012 845.00 SPR AIN/STRAIN ANKLE 11/13/2012 845.00 SPR AIN/STRAIN ANKLE 11/13/2012 845.00 SPR AIN/STRAIN ANKLE 11/13/2012 CAAL DO, STANFORD K 845.00 SPRAIN/STRAIN ANKLE 11/13/2012 CAAL DO, STANFORD K 845.00 SPRAIN/STRAIN ANKLE 11/13/2012 CAAL DO, STANFORD K 845.00 SPRAIN/STRAIN ANKLE 11/13/2012 CAAL DO, STANF[place] K 845.00 SPRAIN/STRAIN ANKLE 11/13/2012 CAAL DO, STAN[place] K 845.00 SPRAIN/STRAIN ANKLE 11/13/2012 CAAL DO, STAN[place] K 845.00 SPRAIN/STRAIN ANKLE 11/13/2012 CAAL DO, ST[place] K 845.00 SPRAIN/STRAIN ANKLE 11/13/2012 GURU QUEZADA [place] R 845.00 SPRAIN/STRAIN ANKLE 11/13/2012 CAAL DO, STAN[place] K 845.00 SPRAIN/STRAIN ANKLE 11/13/2012 CAAL DO, STANF[place] K 845.00 SPRAIN/STRAIN ANKLE 11/13/2012 CAAL DO, ST[place] K 845.00 SPRAIN/STRAIN ANKLE 11/13/2012 JENN GARVEY APRNINA R 845.00 SPRAIN/STRAIN ANKLE 11/13/2012 CAAL DO, [place] K 845.00 SPRAIN/STRAIN ANKLE 11/13/2012 RUBINA HARLEY APRN 845. 00 SPRAIN/STRAIN ANKLE 11/13/2012 LEO BENITEZ MD 845.00 SPRAIN/STRAIN ANKLE 11/13/2012 CHERRI QUEZADA RUBINA D 845. 00 SPRAIN/STRAIN ANKLE 11/13/2012 ARISTEO ARAYA APRN 845.00 SPRAIN/STRAIN ANKLE 11/13/2012 L[place] GARVEY APRN 845.00 SPRAIN/STRAIN ANKLE 11/17/2012 272.4 HYPE RLIPIDEMIA 11/17/2012 780.79 fatigue 11/17/2012 272.4 HYPE RLIPIDEMIA 11/17/2012 780.79 FATIGUE 11/17/2012 CAAL DO, STANFORD [...] JENN GARVEY APRNINA R 272.4 HYPERLIPIDEMIA 11/17/2012 JENN GARVEY APRNINA R 780.79 FATIGUE 11/17/2012 CAAL DO, STANFORD K 272.4 HYPERLIPIDEMIA 11/17/2012 CAAL DO, STAN[place] K 780.79 FATIGUE 11/17/2012 CAAL DO, STAN[place]ORD K 272.4 HYPERLIPIDEMIA 11/17/2012 CAAL DO, SATNFORD K 780.79 FATIGUE 11/17/2012 CAAL DO, STAN[place]ORD K 272.4 HYPERLIPIDEMIA 11/17/2012 CAAL DO, ST[place] K 780.79 FATIGUE 11/17/2012 JENN GARVEY APRNINA R 272.4 HYPERLIPIDEMIA 11/17/2012 JENN GARVEY APRNINA R 780.79 FATIGUE 11/17/2012 CAAL DO, STAN[place]ORD K 272.4 HYPERLIPIDEMIA 11/17/2012 CAAL DO, ST[place] K 780.79 FATIGUE 11/17/2012 RUBINA HARLEY APRN 272. 4 HYPERLIPIDEMIA 11/17/2012 RUBINA HARLEY APRN 780. 79 FATIGUE 11/17/2012 LEO BENITEZ MD 272.4 HYPERLIPIDEMIA 11/17/2012 LEO BENITEZ MD 780.79 FATIGUE 11/17/2012 CHERRI QUEZADA, RUBINA Salazar 272. 4 HYPERLIPIDEMIA 11/17/2012 RUBINA HARLEY APRN 780. 79 FATIGUE 11/17/2012 ARISTEO ARAYA APRN 27 2.4 HYPERLIPIDEMIA 11/17/2012 ARISTEO ARAYA APRN T 780.79 FATIGUE 11/17/2012 GURU QUEZADA, [place] R 272.4 HYPERLIPIDEMIA 11/17/2012 GURU QUEZADA [place] R 780.79 FATIGUE 11/30/2012 414.8 OTHE R SPECIFIED FORMS OF CHRONIC ISCHEMIC HEART DISEASE [...] FORMS OF CHRONIC ISCHEMIC HEART DISEASE 11/30/2012 JENN GARVEY APRNINA R 414.8 OTHER SPECIFIED FORMS OF CHRONIC ISCHEMIC HEART DISEAS E 11/30/2012 CAAL DO, STANFORD K 414.8 OTHER SPECIFIED FORMS OF CHRONIC ISCHEMIC HEART DISEASE 11/30/2012 CAAL DO, ST[place] K 414.8 OTHER SPECIFIED FORMS OF CHRONIC ISCHEMIC HEART DISEASE 11/30/2012 CAAL DO, STAN[place] K 414.8 OTHER SPECIFIED FORMS OF CHRONIC ISCHEMIC HEART DISEASE 11/30/2012 GURU QUEZADA [place] R 414.8 OTHER SPECIFIED FORMS OF CHRONIC ISCHEMIC HEART DISEAS E 11/30/2012 CAAL DO, [place] K 414.8 OTHER SPECIFIED FORMS OF CHRONIC ISCHEMIC HEART DISEASE 11/30/2012 RUBINA HARLEY APRN 414. 8 OTHER SPECIFIED FORMS OF CHRONIC ISCHEMIC HEART DISEASE 11/30/2012 LEO BENITEZ MD 414.8 OTHER SPECIFIED FORMS OF CHRONIC ISCHEMIC HEART DISEASE 11/30/2012 RUBINA HARLEY APRN 414. 8 OTHER SPECIFIED FORMS OF CHRONIC ISCHEMIC HEART DISEASE 11/30/2012 ARISTEO ARAYA APRN 41 4.8 OTHER SPECIFIED FORMS OF CHRONIC ISCHEMIC HEART DISEASE 11/30/2012 L[place] GARVEY APRN R 414.8 OTHER SPECIFIED FORMS OF CHRONIC ISCHEMIC HEART DISEAS E 12/17/2012 AFUA DO [place] K 719.41 PAIN IN JOINT INVOLVING SHOULDER REGION 12/17/2012 AFUA DO [place] K 719.41 PAIN IN JOINT INVOLVING SHOULDER REGION 12/17/2012 CAAL DO [place] K 719.41 PAIN IN JOINT INVOLVING SHOULDER REGION 12/17/2012 CAAL DO [place] K 719.41 PAIN IN JOINT INVOLVING SHOULDER REGION 12/17/2012 CAAL DO [place] K 719.41 PAIN IN JOINT INVOLVING SHOULDER REGION 12/17/2012 AFUA DO [place] K 719.41 PAIN IN JOINT INVOLVING SHOULDER REGION 12/17/2012 AFUA DO [place] K 719.41 PAIN IN JOINT INVOLVING SHOULDER REGION 12/17/2012 LOUIS GARVEY APRN R 719.41 PAIN IN JOINT INVOLVING SHOULDER REGION 12/17/2012 AFUA DO [place] K 719.41 PAIN IN JOINT INVOLVING SHOULDER REGION 12/17/2012 CAAL DO [place] K 719.41 PAIN IN JOINT INVOLVING SHOULDER REGION 12/17/2012 AFUA DO [place] K 719.41 PAIN IN JOINT INVOLVING SHOULDER REGION 12/17/2012 LOUIS GARVEY APRN R 719.41 PAIN IN JOINT INVOLVING SHOULDER REGION 12/17/2012 AFUA GARCIA [place] K 719.41 PAIN IN JOINT INVOLVING SHOULDER REGION 12/17/2012 RUBINA HARLEY APRN 719. 41 PAIN IN JOINT INVOLVING SHOULDER REGION 12/17/2012 LEO BENITEZ MD 719.41 PAIN IN JOINT INVOLVING SHOULDER REGION 12/17/2012 RUBINA HARLEY APRN 719. 41 PAIN IN JOINT INVOLVING SHOULDER REGION 12/17/2012 ARISTEO ARAYA APRN 719.41 PAIN IN JOINT INVOLVING SHOULDER REGION 12/17/2012 LOUIS GARVEY APRN R 719.41 PAIN IN JOINT INVOLVING SHOULDER REGION 04/28/2013 [place]ORD CAAL DO K 354.2 LESION OF ULNAR NERVE 04/28/2013 CAAL DO, STANFORD K 354.2 LESION OF ULNAR NERVE 04/28/2013 CAAL DO, ST[place] K 354.2 LESION OF ULNAR NERVE 04/28/2013 CAAL DO, [place] K 354.2 LESION OF ULNAR NERVE 04/28/2013 GURU QUEZADA [place] R 354.2 LESION OF ULNAR NERVE 04/28/2013 CAAL DO, STAN[place] K 354.2 LESION OF ULNAR NERVE 04/28/2013 CAAL DO, ST[place] K 354.2 LESION OF ULNAR NERVE 04/28/2013 CAAL DO, ST[place] K 354.2 LESION OF ULNAR NERVE 04/28/2013 JENN GARVEY APRNINA R 354.2 LESION OF ULNAR NERVE 04/28/2013 CAAL DO, [place] K 354.2 LESION OF ULNAR NERVE 04/28/2013 RUBINA HARLEY APRN 354. 2 LESION OF ULNAR NERVE 04/28/2013 LEO BENITEZ MD 354.2 LESION OF ULNAR NERVE 04/28/2013 RUBINA HARLEY APRN 354. 2 LESION OF ULNAR NERVE 04/28/2013 ARISTEO ARAYA APRN 35 4.2 LESION OF ULNAR NERVE 04/28/2013 LOUIS GARVEY APRN R 354.2 LESION OF ULNAR NERVE 06/21/2013 CAAL DO, STANFORD K 079.99 UNSPECIFIED VIRAL INFECTION 06/21/2013 CAAL DO, STAN[place] K 079.99 UNSPECIFIED VIRAL INFECTION 06/21/2013 JENN GARVEY APRNINA R 079.99 UNSPECIFIED VIRAL INFECTION 06/21/2013 CAAL DO, [place] K 079.99 UNSPECIFIED VIRAL INFECTION 06/21/2013 CAAL DO, STAN[place] K 079.99 UNSPECIFIED VIRAL INFECTION 06/21/2013 CAAL DO, STAN[place] K 079.99 UNSPECIFIED VIRAL INFECTION 06/21/2013 GURU QUEZADA [place] R 079.99 UNSPECIFIED VIRAL INFECTION 06/21/2013 CAAL DO, STAN[place] K 079.99 UNSPECIFIED VIRAL INFECTION 06/21/2013 RUBINA HARLEY APRN 079. 99 UNSPECIFIED VIRAL INFECTION 06/21/2013 LEO BENITEZ MD 079.99 UNSPECIFIED VIRAL INFECTION 06/21/2013 RUBINA HARLEY APRN 079. 99 UNSPECIFIED VIRAL INFECTION 06/21/2013 ARISTEO ARAYA APRN 079.99 UNSPECIFIED VIRAL INFECTION 06/21/2013 LOUIS GARVEY APRN R 079.99 UNSPECIFIED VIRAL INFECTION 06/22/2013 CAAL DO, STANFORD K 250.00 DIABETES II CONTROLLED (UNCOMPLICATED) 06/22/2013 CAAL DO, STANFORD K 250.00 DIABETES II CONTROLLED (UNCOMPLICATED) 06/22/2013 GURU SEMICONDUCTOR LAB TECHNICIAN, [place] R 250.00 DIABETES II CONTROLLED (UNCOMPLICATED) 06/22/2013 CAAL DO, STANFORD K 250.00 DIABETES II CONTROLLED (UNCOMPLICATED) 06/22/2013 CAAL DO, STANFORD K 250.00 DIABETES II CONTROLLED (UNCOMPLICATED) 06/22/2013 CAAL DO, STANFORD K 250.00 DIABETES II CONTROLLED (UNCOMPLICATED) 06/22/2013 GURU QUEZADA [place] R 250.00 DIABETES II CONTROLLED (UNCOMPLICATED) 06/22/2013 CAAL DO, STAN[place]ORD K 250.00 DIABETES II CONTROLLED (UNCOMPLICATED) 06/22/2013 RUBINA HARLEY APRN 250. 00 DIABETES II CONTROLLED (UNCOMPLICATED) 06/22/2013 LEO BENITEZ MD 250.00 DIABETES II CONTROLLED (UNCOMPLICATED) 06/22/2013 RUBINA HARLEY APRN 250. 00 DIABETES II CONTROLLED (UNCOMPLICATED) 06/22/2013 ARISTEO ARAYA APRN 250.00 DIABETES II CONTROLLED (UNCOMPLICATED) 06/22/2013 JENN GARVEY APRNINA R 250.00 DIABETES II CONTROLLED (UNCOMPLICATED) 07/05/2013 CLEMENTINE CAAL DOA K 719.47 PAIN IN JOINT INVOLVING ANKLE AND FOOT 07/05/2013 AFUA GARCIA [place] K 928.3 CRUSHING INJURY OF TOE(S) [...] K 928.3 CRUSHING INJURY OF TOE(S) 07/05/2013 AFUA GARCIA [place] K 719.47 PAIN IN JOINT INVOLVING ANKLE AND FOOT 07/05/2013 CAAL DO [place] K 928.3 CRUSHING INJURY OF TOE(S) 07/05/2013 GURU QUEZADA [place] R 719.47 PAIN IN JOINT INVOLVING ANKLE AND FOOT 07/05/2013 GURU QUEZADA [place] R 928.3 CRUSHING INJURY OF TOE(S) 07/05/2013 CAAL DO [place] K 719.47 PAIN IN JOINT INVOLVING ANKLE AND FOOT 07/05/2013 CAAL DO, STAN[place]ORD K 928.3 CRUSHING INJURY OF TOE(S) 07/05/2013 RUBINA HARLEY APRN 719. 47 PAIN IN JOINT INVOLVING ANKLE AND FOOT 07/05/2013 RUBINA HARLEY APRN 928. 3 CRUSHING INJURY OF TOE(S) 07/05/2013 LEO BENITEZ MD 719.47 PAIN IN JOINT INVOLVING ANKLE AND FOOT 07/05/2013 LEO BENITEZ MD 928.3 CRUSHING INJURY OF TOE(S) 07/05/2013 RUBINA HARLEY APRN 719. 47 PAIN IN JOINT INVOLVING ANKLE AND FOOT 07/05/2013 RUBINA HARLEY APRN 928. 3 CRUSHING INJURY OF TOE(S) 07/05/2013 ARISTEO ARAYA APRN 719.47 PAIN IN JOINT INVOLVING ANKLE AND FOOT 07/05/2013 ARISTEO ARAYA APRN 92 8.3 CRUSHING INJURY OF TOE(S) 07/05/2013 LOUIS GARVEY APRN R 719.47 PAIN IN JOINT INVOLVING ANKLE AND FOOT 07/05/2013 JENN GARVEY APRNINA R 928.3 CRUSHING INJURY OF TOE(S) 07/30/2013 MIHIR BLANCHARD MD Ot 786.50 CHEST PAIN NOS 09/06/2013 GURU QUEZADA, [place] R 564.00 CONSTIPATION 09/06/2013 GURU BLEVINSN, [place] R 787.01 NAUSEA WITH VOMITING 09/06/2013 [...] 789.00 ABDOMINAL PAIN UNSPECIFIED SITE 09/06/2013 GURU QUEZADA, [place] R 564.00 CONSTIPATION 09/06/2013 GURU BLEVINSN, [place] R 787.01 NAUSEA WITH VOMITING 09/06/2013 GURU SEMICONDUCTOR LAB TECHNICIAN, [place] R 789.00 ABDOMINAL PAIN UNSPECIFIED SITE 09/06/2013 CAAL DO, STANFORD K 564.00 CONSTIPATION 09/06/2013 CAAL DO, STANFORD K 787.01 NAUSEA WITH VOMITING 09/06/2013 CAAL DO, STAN[place] K 789.00 ABDOMINAL PAIN UNSPECIFIED SITE 09/06/2013 RUBINA HARLEY APRN 564. 00 CONSTIPATION 09/06/2013 RUBINA HARLEY APRN 787. 01 NAUSEA WITH VOMITING 09/06/2013 RUBINA HARLEY APRN 789. 00 ABDOMINAL PAIN UNSPECIFIED SITE 09/06/2013 LEO BENITEZ MD 564.00 CONSTIPATION 09/06/2013 LEO BENITEZ MD 787.01 NAUSEA WITH VOMITING 09/06/2013 LEO BENITEZ MD 789.00 ABDOMINAL PAIN UNSPECIFIED SITE 09/06/2013 RUBINA HARLEY APRN 564. 00 CONSTIPATION 09/06/2013 RUBINA HARLEY APRN 787. 01 NAUSEA WITH VOMITING 09/06/2013 RUBINA HARLEY APRN 789. 00 ABDOMINAL PAIN UNSPECIFIED SITE 09/06/2013 ARISTEO ARAYA APRN 564.00 CONSTIPATION 09/06/2013 ARISTEO ARAYA APRN 787.01 NAUSEA WITH VOMITING 09/06/2013 ARISTEO ARAYA APRN 789.00 ABDOMINAL PAIN UNSPECIFIED SITE 09/06/2013 JENN GARVEY APRNINA R 564.00 CONSTIPATION 09/06/2013 JENN GARVEY APRNINA R 787.01 NAUSEA WITH VOMITING 09/06/2013 GURU QUEZADA, [place] R 789.00 ABDOMINAL PAIN UNSPECIFIED SITE 10/14/2013 JAYDE ESPINO MD, Ot 564.00 UNSPEC CONSTIPATION 10/14/2013 KENZIE BRICENO, JAYDE Rouse Ot 789.09 ABDOMINAL PAIN, OTHER SPECIFIED SITE 11/15/2013 CAAL DO [place] K 729.1 FIBROMYALGIA 11/15/2013 AFUA GARCIA [place] K 729.1 FIBROMYALGIA 11/15/2013 GURU QUEZADA [place] R 729.1 FIBROMYALGIA 11/15/2013 CLEMENTINE CAAL DOA K 729.1 FIBROMYALGIA 11/15/2013 RUBINA HARLEY APRN 729. 1 FIBROMYALGIA 11/15/2013 LEO BENITEZ MD 729.1 FIBROMYALGIA 11/15/2013 RUBINA HARLEY APRN 729. 1 FIBROMYALGIA 11/15/2013 ARISTEO ARAYA APRN 72 9.1 FIBROMYALGIA 11/15/2013 LOUIS GARVEY APRN R 729.1 FIBROMYALGIA 01/11/2014 AFUA GARCIA [place] K 414.00 CAD 01/11/2014 [place] GARVEY APRN R 414.00 CAD 01/11/2014 CLEMENTINE CAAL DOA K 414.00 CAD 01/11/2014 RUBINA HARLEY APRN 414. 00 CAD 01/11/2014 LEO BENITEZ MD 414.00 CAD 01/11/2014 RUBINA HARLEY APRN 414. 00 CAD 01/11/2014 ARISTEO ARAYA APRN 414.00 CAD 01/11/2014 [place] GARVEY APRN 414.00 CAD 02/21/2014 [place] CAAL DO K V15.81 PERSONAL HISTORY OF NONCOMPLIANCE WITH MEDICAL TREATMENT PRESENTING HAZARDS TO HEALTH 02/21/2014 URBINA HARLEY APRN V15. 81 PERSONAL HISTORY OF NONCOMPLIANCE WITH MEDICAL TREATMENT PRESENTING HAZARDS TO HEALTH 02/21/2014 LEO BENITEZ MD V15.81 PERSONAL HISTORY OF NONCOMPLIANCE WITH MEDICAL TREATMENT PRESENTING HAZARDS TO HEALTH 02/21/2014 RUBINA HARLEY APRN V15. 81 PERSONAL HISTORY OF NONCOMPLIANCE WITH MEDICAL TREATMENT PRESENTING HAZARDS TO HEALTH 02/21/2014 ARISTEO ARAYA APRN V15.81 PERSONAL HISTORY OF NONCOMPLIANCE WITH M EDICAL TREATMENT PRESENTING HAZARDS TO HEALTH 02/21/2014 L[place] GARVEY APRN V15.81 PERSONAL HISTORY OF NONCOMPLIANCE WITH M EDICAL TREATMENT PRESENTING HAZARDS TO HEALTH 06/06/2014 LEO BENITEZ MD 787.91 DIARRHEA 06/06/2014 RUBINA HARLEY APRN 787. 91 DIARRHEA 06/06/2014 ARISTEO ARAYA APRN 787.91 DIARRHEA 06/06/2014 GURU SEMICONDUCTOR LAB TECHNICIAN, [place] R 787.91 DIARRHEA 07/12/2014 ARISTEO SOLANO DO Ot 307.47 SLEEP STAGE DYSFUNC NEC 08/23/2014 ARISTEO ARAYA APRN 72 4.5 BACK PAIN, GENERAL 08/23/2014 GURU SEMICONDUCTOR LAB TECHNICIAN, [place] R 724.5 BACK PAIN, GENERAL 09/06/2014 RODERICK PA, LENNY M Ot 719.01 09/06/2014 RODERICK PA, LENNY M Ot 719.41 09/06/2014 RODERICK PA, LENNY M Ot 719.01 09/06/2014 RODERICK ALMANZA, LENNY M Ot 719.41 09/20/2014 JENN GARVEY APRNINA R 599.0 URINARY TRACT INFECTION 09/20/2014 LOU[place] GARVEY APRN R 780.60 FEVER, UNSPECIFIED 09/28/2014 MAN CHAUHANUA M Ot 719.01 09/28/2014 RODERICK ALMANZA, LENNY M Ot 719.41 10/04/2014 GURU [place] R SEMICONDUCTOR LAB TECHNICIAN Ot 722.10 10/04/2014 GURU [place] R SEMICONDUCTOR LAB TECHNICIAN Ot 722.10 10/05/2014 GURU [place] R SEMICONDUCTOR LAB TECHNICIAN Ot 722.10 11/04/2014 LUCRETIA BRICENO, LENNY T Ot 787.01 NAUSEA WITH VOMITING 11/04/2014 LUCRETIA BRICENO, LENNY T Ot 787.91 DIARRHEA 11/04/2014 LUCRETIA BRICENO, LENNY T Ot 789.00 ABDOMINAL PAIN, UNSPECIFIED SITE 11/15/2014 RODERICK PA, LENNY M Ot 719.01 11/15/2014 RODERICK PA, LENNY M Ot 719.41 11/15/2014 JENN GARVEYINA R SEMICONDUCTOR LAB TECHNICIAN Ot 722.10 11/15/2014 GURU LOUIS R SEMICONDUCTOR LAB TECHNICIAN Ot 722.10 11/15/2014 RODERICK PA, LENNY M Ot 719.01 11/15/2014 RODERICK PA, LENNY M Ot 719.41 11/27/2014 RODERICK PA, LENNY M Ot 719.01 11/27/2014 RODERICK PA, LENNY M Ot 719.41 11/27/2014 LOUIS GARVEY SEMICONDUCTOR LAB TECHNICIAN Ot 722.10 02/17/2015 LENNY CHAUHAN Ot 719.01 02/17/2015 LENNY CHAUHAN Ot 719.41 02/17/2015 LOUIS GARVEY SEMICONDUCTOR LAB TECHNICIAN Ot 722.10 02/17/2015 CALEB BRICENO, ILYA Garibay Ot 490 BRONCHITIS NOS 02/17/2015 CALEB BRICENO, ILYA Garibay Ot 786. 2 COUGH 02/17/2015 LENNY CHAUHAN Ot 719.01 02/17/2015 LENNY CHAUHAN Ot 719.41 02/17/2015 LOUIS GARVEY SEMICONDUCTOR LAB TECHNICIAN Ot 722.10 10/17/2015 SUKUMAR CASE Ot [...] Ot 719.41 JOINT PAIN-SHLDER 10/17/2015 LOUIS GARVEY SEMICONDUCTOR LAB TECHNICIAN Ot 722.10 LUMBAR DISC DISPLACEMENT 10/17/2015 LENNY CHAUHAN Ot 719.01 JOINT EFFUSION-SHLDER 10/17/2015 LENNY CHAUHAN Ot 719.41 JOINT PAIN-SHLDER 10/17/2015 LOUIS GARVEY SEMICONDUCTOR LAB TECHNICIAN Ot 722.10 LUMBAR DISC DISPLACEMENT 10/18/2015 SUKUMAR CASE Ot E86.9 VOLUME DEPLETION, UNSPECIFIED 10/18/2015 SUKUMAR CASE Ot K57.90 DVRTCLOS OF INTEST, PART UNSP, W/O PERF 10/18/2015 SUKUMAR CASE Ot R10.84 GENERALIZED ABDOMINAL PAIN 10/18/2015 SUKUMAR CASE Ot R11.2 NAUSEA WITH VOMITING, UNSPECIFIED 10/18/2015 SUKUMAR CASE Ot R19.7 DIARRHEA, UNSPECIFIED 01/05/2016 SHAN BLACK SEMICONDUCTOR LAB TECHNICIAN Ot M54 .2 CERVICALGIA 01/05/2016 SHAN BLACK SEMICONDUCTOR LAB TECHNICIAN Ot R52 PAIN, UNSPECIFIED 01/05/2016 SHAN BLACK SEMICONDUCTOR LAB TECHNICIAN Ot S09.90XA UNSPECIFIED INJURY OF HEAD, INITIAL ENCO 01/05/2016 SHAN BLACK SEMICONDUCTOR LAB TECHNICIAN Ot W01.0XXA FALL SAME LEV FROM SLIP/TRIP W/O STRIKE 01/05/2016 SHAN BLACK SEMICONDUCTOR LAB TECHNICIAN Ot Y92.[address] IN UNSP NON-INSTITUT (PRIVATE 01/05/2016 SHAN BLACK SEMICONDUCTOR LAB TECHNICIAN Ot Y99 .8 OTHER EXTERNAL CAUSE STATUS 01/05/2016 RODERICK ALMANZA, LENNY Desai Ot 719.01 JOINT EFFUSION-SHLDER 01/05/2016 LENNY CHAUHAN Ot 719.41 JOINT PAIN-SHLDER 01/05/2016 LOUIS GARVEY SEMICONDUCTOR LAB TECHNICIAN Ot 722.10 LUMBAR DISC DISPLACEMENT 01/06/2016 [...] Ot 719.41 JOINT PAIN-SHLDER 01/06/2016 LOUIS GARVEY SEMICONDUCTOR LAB TECHNICIAN Ot 722.10 LUMBAR DISC DISPLACEMENT 01/29/2016 LENNY BOYKIN MD Ot E78.0 PURE HYPERCHOLESTEROLEMIA 01/29/2016 LENNY BOYKIN MD Ot I10 ESSENTIAL (PRIMARY) HYPERTENSION 01/29/2016 LENNY BOYKIN MD Ot R07.89 OTHER CHEST PAIN 01/29/2016 LENNY BOYKIN MD Ot R07.9 CHEST PAIN, UNSPECIFIED 01/29/2016 LUCRETIA BRICENO, LENNY Michaud Ot R10.13 EPIGASTRIC PAIN 04/04/2016 TAYLOR PETERSEN MD Ot A41 .9 SEPSIS, UNSPECIFIED ORGANISM 04/04/2016 TAYLOR PETERSEN MD Ot E11 .9 TYPE 2 DIABETES MELLITUS WITHOUT COMPLIC 04/04/2016 TAYLOR PETERSEN MD Ot E78.00 PURE HYPERCHOLESTEROLEMIA, UNSPECIFIED 04/04/2016 TAYLOR PETERSEN MD Ot F41 .9 ANXIETY DISORDER, UNSPECIFIED 04/04/2016 TAYLOR PETERSEN MD Ot F43.10 POST-TRAUMATIC STRESS DISORDER, UNSPECIF 04/04/2016 TAYLOR PETERSEN MD Ot I10 ESSENTIAL (PRIMARY) HYPERTENSION 04/04/2016 TAYLOR PETERSEN MD Ot I25 .2 OLD MYOCARDIAL INFARCTION 04/04/2016 TAYLOR PETERSEN MD Ot J18 .9 PNEUMONIA, UNSPECIFIED ORGANISM 04/04/2016 TAYLOR PETERSEN MD Ot M79 .1 MYALGIA 04/04/2016 TAYLOR PETERSEN MD Ot N39 .0 URINARY TRACT INFECTION, SITE NOT SPECIF 06/06/2016 LENNY CHAUHAN Ot 719.01 JOINT EFFUSION-SHLDER 06/06/2016 LENNY CHAUHAN Ot 719.41 JOINT PAIN-LDER 06/06/2016 LOUIS GARVEY APRN Ot 722.10 LUMBAR DISC DISPLACEMENT 06/07/2016 SHAN BLACK APRN Ot M54 .2 CERVICALGIA 06/07/2016 SHAN BLACK APRN Ot R52 PAIN, UNSPECIFIED 06/07/2016 SHAN BLACK APRN Ot S09.90XA UNSPECIFIED INJURY OF HEAD, INITIAL ENCO 06/07/2016 SHAN BLACK APRN Ot W01.0XXA FALL SAME LEV FROM SLIP/TRIP W/O STRIKE 06/07/2016 SHAN BLACK APRN Ot Y92.[address] IN [facility] NON-INSTITUT (PRIVATE 06/07/2016 SHAN BLACK APRN Ot Y99 .8 OTHER EXTERNAL CAUSE STATUS 06/14/2016 SUKUMAR CASE Ot E86.9 VOLUME DEPLETION, UNSPECIFIED 06/14/2016 SUKUMAR CASE Ot K57.90 DVRTCLOS OF INTEST, PART [facility], W/O PERF 06/14/2016 SUKUMAR CASE Ot R10.84 GENERALIZED ABDOMINAL PAIN 06/14/2016 SUKUMAR CASE Ot R11.2 NAUSEA WITH VOMITING, UNSPECIFIED 06/14/2016 SUKUMAR CASE Ot R19.7 DIARRHEA, UNSPECIFIED 06/14/2016 LUCRETIA BRICENO, LENNY Michaud Ot E78.0 PURE HYPERCHOLESTEROLEMIA 06/14/2016 LUCRETIA BRICENO, LENNY Michaud Ot I10 ESSENTIAL (PRIMARY) HYPERTENSION 06/14/2016 LUCRETIA BRICENO, LENNY Michaud Ot R07.89 OTHER CHEST PAIN 06/14/2016 LUCRETIA BRICENO, LENNY Michaud Ot R07.9 CHEST PAIN, UNSPECIFIED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 measurement (moles/volume) 104 mmol/L 98-107 Carbon dioxide 26 mmol/L 21-32 Serum or plasma anion gap determination (moles/volume) 6 mmol/L 5-14 Serum or plasma urea nitrogen measurement (mass/volume ) 10 mg/dL 7-18 Serum or plasma creatinine measurement (mass/volume) 0.77 mg/dL 0.60-1.30 Serum or plasma urea nitrogen/creatinine mass ratio 13 NRG Serum or plasma creatinine measurement w ith calculation of estimated glomerular filtration rate > NRG Serum or plasma glucose measurement (mass/volume) 125 mg/dL 70-105 Serum or plasma calcium measurement (mass/volume) 8.7 mg/dL 8.5-10.1 Serum or plasma total bilirubin measurement (mass/volu me) 0.8 mg/dL 0.1-1.0 Serum or plasma alkaline phosphatase jose alfredo surement (enzymatic activity/volume) 46 U/L 40-136 Serum or plasma aspartate aminotransfera se measurement (enzymatic activity/volume) 17 U/L 5-34 Serum or plasma alanine aminotransferase measurement (enzymatic activity/volume) 20 U/L 0-55 Serum or plasma protein measurement (mass/volume) 7.2 g/dL 6.4-8.2 Serum or plasma albumin measurement (mass/volume) 4.0 g/dL 3.2-4.5 Bacterial blood culture - 04/03/16 19:45 Bacterial blood culture NG NRG Bacterial blood culture - 04/03/16 20:53 Bacterial blood culture NG NRG Complete blood count (CBC) with automate d white blood cell (WBC) differential - 04/04/16 05:07 Blood leukocytes automated count (number/volume) 7.5 10*3/uL 4.3-11.0 Blood erythrocytes automated count (number/volume) 4.13 10*6/uL 4.35-5.85 Venous blood hemoglobin measurement (mass/volume) 11.7 g/dL 11.5-16.0 Blood hematocrit (volume fraction) 35 % 35-52 Automated erythrocyte mean corpuscular volume 84 [ foz_us] 80-99 Automated erythrocyte mean corpuscular h emoglobin (mass per erythrocyte) 28 pg 25-34 Automated erythrocyte mean corpuscular h emoglobin concentration measurement (mass/volume) 34 g/dL 32-36 Automated erythrocyte distribution width ratio 14. 0 % 10.0- 14.5 Automated blood platelet count (count/volume) 166 10*3/uL [...] 10*3 1.0-4.0 Blood monocytes automated count (number/volume) 0. 7 10*3 0.0-1.0 Automated eosinophil count 0.1 10*3/uL 0 .0-0.3 Automated blood basophil count (count/volume) 0.0 10*3/uL 0.0-0.1 Sputum Gram stain - 04/04/16 05:40 GRAM STAIN SPUTUM AND MIXED BACTERIAL BRENNON NRG Bacterial sputum culture - 04/04/16 05:4 0 Bacterial sputum culture NORMAL NRG Complete blood count (CBC) with automate d white blood cell (WBC) differential - 01/14/17 15:11 Blood leukocytes automated count (number/volume) 8.2 10*3/uL 4.3-11.0 Blood erythrocytes automated count (number/volume) 4.38 10*6/uL 4.35-5.85 Venous blood hemoglobin measurement (mass/volume) 12.7 g/dL 11.5-16.0 Blood hematocrit (volume fraction) 39 % 35-52 Automated erythrocyte mean corpuscular volume 88 [ foz_us] 80-99 Automated erythrocyte mean corpuscular h emoglobin (mass per erythrocyte) 29 pg 25-34 Automated erythrocyte mean corpuscular h emoglobin concentration measurement (mass/volume) 33 g/dL 32-36 Automated erythrocyte distribution width ratio 13. 7 % 10.0- 14.5 Automated blood platelet count (count/volume) 228 10*3/uL [...] 10*3 1.0-4.0 Blood monocytes automated count (number/volume) 0. 7 10*3 0.0-1.0 Automated eosinophil count 0.3 10*3/uL 0 .0-0.3 Automated blood basophil count (count/volume) 0.0 10*3/uL 0.0-0.1 Comprehensive metabolic panel - 01/14/17 15:11 Serum or plasma sodium measurement (moles/volume) 139 mmol/L 135-145 Serum or plasma potassium measurement (moles/volume) 4.0 mmol/L 3.6-5.0 Serum or plasma chloride measurement (moles/volume) 104 mmol/L 98-107 Carbon dioxide 25 mmol/L 21-32 Serum or plasma anion gap determination (moles/volume) 10 mmol/L 5-14 Serum or plasma urea nitrogen measurement (mass/volume ) 11 mg/dL 7-18 Serum or plasma creatinine measurement (mass/volume) 0.80 mg/dL 0.60-1.30 Serum or plasma urea nitrogen/creatinine mass ratio 14 NRG Serum or plasma creatinine measurement w ith calculation of estimated glomerular filtration rate > NRG Serum or plasma glucose measurement (mass/volume) 125 mg/dL 70-105 Serum or plasma calcium measurement (mass/volume) 9.1 mg/dL 8.5-10.1 Serum or plasma total bilirubin measurement (mass/volu me) 0.7 mg/dL 0.1-1.0 Serum or plasma alkaline phosphatase jose alfredo surement (enzymatic activity/volume) 50 U/L 40-136 Serum or plasma aspartate aminotransfera se measurement (enzymatic activity/volume) 24 U/L 5-34 Serum or plasma alanine aminotransferase measurement (enzymatic activity/volume) 23 U/L 0-55 Serum or plasma protein measurement (mass/volume) 7.3 g/dL 6.4-8.2 Serum or plasma albumin measurement (mass/volume) 3.8 g/dL 3.2-4.5 Complete urinalysis with reflex to cultu re - 01/14/17 16:11 Urine color determination YELLOW NRG Urine clarity determination CLEAR NR G Urine pH measurement by test strip 6 5-9 Specific gravity of urine by test strip 1.010 1.016-1.022 Urine protein assay by test strip, semi-quantitative NEGATIVE NEGATIVE Urine glucose detection by automated test strip NE GATIVE NEGATIVE Erythrocytes detection in urine sediment by light micr oscopy 5+ NEGATIVE Urine ketones detection by automated test strip NE GATIVE NEGATIVE Urine nitrite detection by test strip NEGATIVE NEGATIVE Urine total bilirubin detection by test strip NEGA TIVE NEGATIVE Urine urobilinogen measurement by automated test strip (mass/volume) NORMAL NORMAL Urine leukocyte esterase detection by dipstick NEG ATIVE NEGATIVE Automated urine sediment erythrocyte cou nt by microscopy (number/high power field) [HPF] NRG Automated urine sediment leukocyte count by microscopy (number/high power field) RARE NRG Bacteria detection in urine sediment by light microsco py TRACE NRG Squamous epithelial cells detection in u rine sediment by light microscopy 2-5 NRG Crystals detection in urine sediment by light microsco py NONE NRG Casts detection in urine sediment by light microscopy NONE NRG Mucus detection in urine sediment by light microscopy NEGATIVE NRG Complete urinalysis with reflex to culture NO NRG Complete urinalysis with reflex to cultu re - 01/18/17 11:30 Urine color determination YELLOW NRG Urine clarity determination VERY CLOUDY NRG Urine pH measurement by test strip 5 5-9 Specific gravity of urine by test strip 1.020 1.016-1.022 Urine protein assay by test strip, semi-quantitative 2+ NEGATIVE Urine glucose detection by automated test strip 3+ NEGATIVE Erythrocytes detection in urine sediment by light micr oscopy 1+ NEGATIVE Urine ketones detection by automated test strip NE GATIVE NEGATIVE Urine nitrite detection by test strip POSITIVE NEGATIVE Urine total bilirubin detection by test strip NEGA TIVE NEGATIVE Urine urobilinogen measurement by automated test strip (mass/volume) NORMAL NORMAL Urine leukocyte esterase detection by dipstick 3+ NEGATIVE Automated urine sediment erythrocyte cou nt by microscopy (number/high power field) NONE NRG Automated urine sediment leukocyte count by microscopy (number/high power field) > [HPF] NRG Bacteria detection in urine sediment by light microsco py LARGE NRG Squamous epithelial cells detection in u rine sediment by light microscopy 10-25 NRG Crystals detection in urine sediment by light microsco py NONE NRG Casts detection in urine sediment by light microscopy NONE NRG Mucus detection in urine sediment by light microscopy NEGATIVE NRG Complete urinalysis with reflex to culture YES NRG Bacterial urine culture - 01/18/17 11:30 Bacterial urine culture [id number] NRG COLONY COUNT 10,000/ML - 100,000/ML NRG FTX;REPORTABLE SENSITIVITY REPORTED 01/21/17 9:00 NRG Bacterial susceptibility panel - 7 11:30 Gentamicin susceptibility test by minimum inhibitory c oncentration <= NRG Trimethoprim/sulfamethoxazole susceptibi lity test by minimum inhibitoryconcentration <= NRG Ampicillin susceptibility test by minimum inhibitory c oncentration >= NRG Tobramycin susceptibility test by minimum inhibitory c oncentration <= NRG Cefazolin susceptibility test by minimum inhibitory co ncentration >= NRG Ceftriaxone susceptibility test by minimum inhibitory concentration 16 NRG Ampicillin/sulbactam susceptibility test by minimum inhibitory concentration >= NRG Piperacillin/tazobactam susceptibility t est by minimum inhibitory concentration 8 NRG Ciprofloxacin susceptibility test by minimum inhibitor y concentration <= NRG Meropenem susceptibility test by minimum inhibitory co ncentration <= NRG Nitrofurantoin susceptibility test by mi nimum inhibitory concentration <= NRG Aztreonam susceptibility test by minimum inhibitory co ncentration 8 NRG Extended spectrum beta lactamase (ESBL) producing bacteria susceptibility test by minimum inhibitory concentration - NRG Complete blood count (CBC) with automate d white blood cell (WBC) differential - 03/05/17 21:05 Blood leukocytes automated count (number/volume) 12.0 10*3/uL 4.3-11.0 Blood erythrocytes automated count (number/volume) 4.88 10*6/uL 4.35-5.85 Venous blood hemoglobin measurement (mass/volume) 13.9 g/dL 11.5-16.0 Blood hematocrit (volume fraction) 42 % 35-52 Automated erythrocyte mean corpuscular volume 86 [ foz_us] 80-99 Automated erythrocyte mean corpuscular h emoglobin (mass per erythrocyte) 29 pg 25-34 Automated erythrocyte mean corpuscular h emoglobin concentration measurement (mass/volume) 33 g/dL 32-36 Automated erythrocyte distribution width ratio 13. 7 % 10.0- 14.5 Automated blood platelet count (count/volume) 268 10*3/uL [...] 10*3 1.0-4.0 Blood monocytes automated count (number/volume) 0. 7 10*3 0.0-1.0 Automated eosinophil count 0.2 10*3/uL 0 .0-0.3 Automated blood basophil count (count/volume) 0.0 10*3/uL 0.0-0.1 Complete urinalysis with reflex to cultu re - 03/05/17 21:05 Urine color determination KATHLEEN NRG Urine clarity determination CLEAR NR G Urine pH measurement by test strip 5 5-9 Specific gravity of urine by test strip 1.025 1.016-1.022 Urine protein assay by test strip, semi-quantitative 2+ NEGATIVE Urine glucose detection by automated test strip NE GATIVE NEGATIVE Erythrocytes detection in urine sediment by light micr oscopy 1+ NEGATIVE Urine ketones detection by automated test strip 1+ NEGATIVE Urine nitrite detection by test strip POSITIVE NEGATIVE Urine total bilirubin detection by test strip 1+ NEGATIVE Urine urobilinogen measurement by automated test strip (mass/volume) 1 mg/dL NORMAL Urine leukocyte esterase detection by dipstick 3+ NEGATIVE Automated urine sediment erythrocyte cou nt by microscopy (number/high power field) RARE NRG Automated urine sediment leukocyte count by microscopy (number/high power field) [HPF] NRG Bacteria detection in urine sediment by light microsco py FEW NRG Squamous epithelial cells detection in u rine sediment by light microscopy 25-50 NRG Crystals detection in urine sediment by light microsco py NONE NRG Casts detection in urine sediment by light microscopy NONE NRG Mucus detection in urine sediment by light microscopy SMALL NRG Complete urinalysis with reflex to culture YES NRG Comprehensive metabolic panel - 03/05/17 21:05 Serum or plasma sodium measurement (moles/volume) 138 mmol/L 135-145 Serum or plasma potassium measurement (moles/volume) 3.3 mmol/L 3.6-5.0 Serum or plasma chloride measurement (moles/volume) 106 mmol/L 98-107 Carbon dioxide 21 mmol/L 21-32 Serum or plasma anion gap determination (moles/volume) 11 mmol/L 5-14 Serum or plasma urea nitrogen measurement (mass/volume ) 7 mg/dL 7-18 Serum or plasma creatinine measurement (mass/volume) 0.88 mg/dL 0.60-1.30 Serum or plasma urea nitrogen/creatinine mass ratio 8 NRG Serum or plasma creatinine measurement w ith calculation of estimated glomerular filtration rate > NRG Serum or plasma glucose measurement (mass/volume) 196 mg/dL 70-105 Serum or plasma calcium measurement (mass/volume) 8.7 mg/dL 8.5-10.1 Serum or plasma total bilirubin measurement (mass/volu me) 0.6 mg/dL 0.1-1.0 Serum or plasma alkaline phosphatase jose alfredo surement (enzymatic activity/volume) 46 U/L 40-136 Serum or plasma aspartate aminotransfera se measurement (enzymatic activity/volume) 26 U/L 5-34 Serum or plasma alanine aminotransferase measurement (enzymatic activity/volume) 23 U/L 0-55 Serum or plasma protein measurement (mass/volume) 7.0 g/dL 6.4-8.2 Serum or plasma albumin measurement (mass/volume) 3.8 g/dL 3.2-4.5 Lipase - 03/05/17 21:05 Lipase 32 U/L 8-78 Bacterial urine culture - 03/05/17 21:05 URINE CULTURE RESULTS <10,000/ML BANNER LIPID PANEL - 08/13/17 12:18 CHOLESTEROL, TOTAL 145 mg/dL <200 HDL CHOLESTEROL 41 mg/dL >50 TRIGLYCERIDES 182 mg/dL <150 LDL-CHOLESTEROL 76 mg/dL (calc) NRG CHOL/HDLC RATIO 3.5 (calc) <5.0 NON HDL CHOLESTEROL 104 mg/dL (calc) <13 0 CMP - 08/13/17 12:18 GLUCOSE 249 mg/dL 65-99 UREA NITROGEN (BUN) 10 mg/dL 7-25 CREATININE 0.66 mg/dL 0.50-1.10 eGFR NON-AFR. CROATIAN 104 mL/min/1.73m2 > OR = 60 eGFR 120 mL/min/1.73m2 > OR = 60 BUN/CREATININE RATIO NOT APPLICABLE (calc) 6-22 SODIUM 139 mmol/L 135-146 POTASSIUM 3.9 mmol/L 3.5-5.3 CHLORIDE 106 mmol/L 98-110 CARBON DIOXIDE 24 mmol/L 20-31 CALCIUM 8.7 mg/dL 8.6-10.2 PROTEIN, TOTAL 6.8 g/dL 6.1-8.1 ALBUMIN 3.9 g/dL 3.6-5.1 GLOBULIN 2.9 g/dL (calc) 1.9-3.7 ALBUMIN/GLOBULIN RATIO 1.3 (calc) 1.0-2. 5 BILIRUBIN, TOTAL 0.5 mg/dL 0.2-1.2 ALKALINE PHOSPHATASE 44 U/L 33-115 AST 22 U/L 10-35 ALT 29 U/L 6-29 CBC - 08/13/17 12:18 WHITE BLOOD CELL COUNT 7.2 Thousand/uL 3 .8-10.8 RED BLOOD CELL COUNT 4.50 Million/uL 3.8 0-5.10 HEMOGLOBIN 13.0 g/dL 11.7-15.5 HEMATOCRIT 39.7 % 35.0-45.0 MCV 88.2 fL 80.0-100.0 MCH 28.9 pg 27.0-33.0 MCHC 32.7 g/dL 32.0-36.0 RDW 14.0 % 11.0-15.0 PLATELET COUNT 191 Thousand/uL 140-400 MPV 11.5 fL 7.5-12.5 ABSOLUTE NEUTROPHILS 4745 cells/uL 1500- 7800 ABSOLUTE LYMPHOCYTES 1901 cells/uL 850-3 900 ABSOLUTE MONOCYTES 331 cells/uL 200-950 ABSOLUTE EOSINOPHILS 180 cells/uL 15-500 ABSOLUTE BASOPHILS 43 cells/uL 0-200 NEUTROPHILS 65.9 % NRG LYMPHOCYTES 26.4 % NRG MONOCYTES 4.6 % NRG EOSINOPHILS 2.5 % NRG BASOPHILS 0.6 % NRG TSH - 08/13/17 12:18 TSH 1.56 mIU/L NRG CMP - 11/11/17 09:08 GLUCOSE 154 mg/dL 65-99 UREA NITROGEN (BUN) 9 mg/dL 7-25 CREATININE 0.70 mg/dL 0.50-1.10 eGFR NON-AFR. CROATIAN 102 mL/min/1.73m2 > OR = 60 eGFR 118 mL/min/1.73m2 > OR = 60 BUN/CREATININE RATIO NOT APPLICABLE (calc) 6-22 SODIUM 139 mmol/L 135-146 POTASSIUM 4.3 mmol/L 3.5-5.3 CHLORIDE 104 mmol/L 98-110 CARBON DIOXIDE 29 mmol/L 20-31 CALCIUM 8.9 mg/dL 8.6-10.2 PROTEIN, TOTAL 6.5 g/dL 6.1-8.1 ALBUMIN 3.7 g/dL 3.6-5.1 GLOBULIN 2.8 g/dL (calc) 1.9-3.7 ALBUMIN/GLOBULIN RATIO 1.3 (calc) 1.0-2. 5 BILIRUBIN, TOTAL 0.5 mg/dL 0.2-1.2 ALKALINE PHOSPHATASE 41 U/L 33-115 AST 25 U/L 10-35 ALT 25 U/L 6-29 TSH - 11/11/17 09:08 TSH 2.15 mIU/L NRG BNP - 11/11/17 09:11 B TYPE NATRIURETIC PEPTIDE (BNP) 17 pg/mL <100 Complete blood count (CBC) with automate d white blood cell (WBC) differential - 06/19/18 13:19 Blood leukocytes automated count (number/volume) 9.8 10*3/uL 4.3-11.0 Blood erythrocytes automated count (number/volume) 4.51 10*6/uL 4.35-5.85 Venous blood hemoglobin measurement (mass/volume) 12.4 g/dL 11.5-16.0 Blood hematocrit (volume fraction) 38 % 35-52 Automated erythrocyte mean corpuscular volume 85 [ foz_us] 80-99 Automated erythrocyte mean corpuscular h emoglobin (mass per erythrocyte) 28 pg 25-34 Automated erythrocyte mean corpuscular h emoglobin concentration measurement (mass/volume) 32 g/dL 32-36 Automated erythrocyte distribution width ratio 15. 6 % 10.0- 14.5 Automated blood platelet count (count/volume) 236 10*3/uL [...] 10*3 1.0-4.0 Blood monocytes automated count (number/volume) 0. 6 10*3 0.0-1.0 Automated eosinophil count 0.4 10*3/uL 0 .0-0.3 Automated blood basophil count (count/volume) 0.0 10*3/uL 0.0-0.1 Comprehensive metabolic panel - 06/19/18 13:19 Serum or plasma sodium measurement (moles/volume) 140 mmol/L 135-145 Serum or plasma potassium measurement (moles/volume) 4.5 mmol/L 3.6-5.0 Serum or plasma chloride measurement (moles/volume) 104 mmol/L 98-107 Carbon dioxide 22 mmol/L 21-32 Serum or plasma anion gap determination (moles/volume) 14 mmol/L 5-14 Serum or plasma urea nitrogen measurement (mass/volume ) 11 mg/dL 7-18 Serum or plasma creatinine measurement (mass/volume) 0.94 mg/dL 0.60-1.30 Serum or plasma urea nitrogen/creatinine mass ratio 12 NRG Serum or plasma creatinine measurement w ith calculation of estimated glomerular filtration rate > NRG Serum or plasma glucose measurement (mass/volume) 169 mg/dL 70-105 Serum or plasma calcium measurement (mass/volume) 9.6 mg/dL 8.5-10.1 Serum or plasma total bilirubin measurement (mass/volu me) 0.7 mg/dL 0.1-1.0 Serum or plasma alkaline phosphatase jose alfredo surement (enzymatic activity/volume) 43 U/L 40-136 Serum or plasma aspartate aminotransfera se measurement (enzymatic activity/volume) 15 U/L 5-34 Serum or plasma alanine aminotransferase measurement (enzymatic activity/volume) 13 U/L 0-55 Serum or plasma protein measurement (mass/volume) 7.7 g/dL 6.4-8.2 Serum or plasma albumin measurement (mass/volume) 4.2 g/dL 3.2-4.5 CALCIUM CORRECTED 9.4 mg/dL 8.5-10.1 Serum or plasma amylase measurement (enz ymatic activity/volume) - 06/19/18 13:19 Serum or plasma amylase measurement (enzymatic activit y/volume) 49 U/L 25-125 Lipase - 06/19/18 13:19 Lipase 21 U/L 8-78 Complete urinalysis with reflex to cultu re - 06/19/18 14:15 Urine color determination YELLOW NRG Urine clarity determination VERY CLOUDY NRG Urine pH measurement by test strip 8 5-9 Specific gravity of urine by test strip 1.015 1.016-1.022 Urine protein assay by test strip, semi-quantitative 2+ NEGATIVE Urine glucose detection by automated test strip NE GATIVE NEGATIVE Erythrocytes detection in urine sediment by light micr oscopy 2+ NEGATIVE Urine ketones detection by automated test strip NE GATIVE NEGATIVE Urine nitrite detection by test strip POSITIVE NEGATIVE Urine total bilirubin detection by test strip NEGA TIVE NEGATIVE Urine urobilinogen measurement by automated test strip (mass/volume) NORMAL NORMAL Urine leukocyte esterase detection by dipstick 2+ NEGATIVE Automated urine sediment erythrocyte cou nt by microscopy (number/high power field) [HPF] NRG Automated urine sediment leukocyte count by microscopy (number/high power field) [HPF] NRG Bacteria detection in urine sediment by light microsco py LARGE NRG Squamous epithelial cells detection in u rine sediment by light microscopy 10-25 NRG Crystals detection in urine sediment by light microsco py NONE NRG Casts detection in urine sediment by light microscopy NONE NRG Mucus detection in urine sediment by light microscopy NEGATIVE NRG Complete urinalysis with reflex to culture YES NRG Bacterial urine culture - 06/19/18 14:15 Bacterial urine culture [id number] NRG COLONY COUNT >100,000/ML NRG FREE TEXT ENTRY 3 RML SENT ID REPORT 06/21 06:05 NRG Influenza virus A and B antigen detectio n - 02/27/19 18:18 FLU RESULT NEGATIVE FOR INFLUENZA A AND B ANTIGENS BY IA NRG Complete blood count (CBC) with automate d white blood cell (WBC) differential - 02/27/19 18:37 Blood leukocytes automated count (number/volume) 9.5 10*3/uL 4.3-11.0 Blood erythrocytes automated count (number/volume) 5.39 10*6/uL 4.35-5.85 Venous blood hemoglobin measurement (mass/volume) 14.6 g/dL 11.5-16.0 Blood hematocrit (volume fraction) 44 % 35-52 Automated erythrocyte mean corpuscular volume 82 [ foz_us] 80-99 Automated erythrocyte mean corpuscular h emoglobin (mass per erythrocyte) 27 pg 25-34 Automated erythrocyte mean corpuscular h emoglobin concentration measurement (mass/volume) 33 g/dL 32-36 Automated erythrocyte distribution width ratio 15. 0 % 10.0- 14.5 Automated blood platelet count (count/volume) 284 10*3/uL 130-400 Automated blood platelet mean volume measurement 11.7 [foz_us] 7.4-10.4 Automated blood neutrophils/100 leukocytes 65 % 42-75 Automated blood lymphocytes/100 leukocytes 26 % 12-44 Blood monocytes/100 leukocytes 8 % 0-12 Automated blood eosinophils/100 leukocytes 1 % 0-10 Automated blood basophils/100 leukocytes 0 % 0-10 Blood neutrophils automated count (number/volume) 6.2 10*3 1.8-7.8 Blood lymphocytes automated count (number/volume) 2.4 10*3 1.0-4.0 Blood monocytes automated count (number/volume) 0. 7 10*3 0.0-1.0 Automated eosinophil count 0.1 10*3/uL 0 .0-0.3 Automated blood basophil count (count/volume) 0.0 10*3/uL 0.0-0.1 PT panel in platelet poor plasma by coag ulation assay - 02/27/19 18:37 Prothrombin time (PT) in platelet poor plasma by coagu lation assay 13.5 s 12.2-14.7 INR in platelet poor plasma or blood by coagulation as say 1.0 0.8-1.4 Activated partial thromboplastin time (a PTT) in platelet poor plasma bycoagulation assay - 02/27/19 18:37 Activated partial thromboplastin time (a PTT) in platelet poor plasma bycoagulation assay 28 s 24-35 Blood lactic acid measurement (moles/vol ume) - 02/27/19 18:37 Blood lactic acid measurement (moles/volume) 3.27 mmol/L 0.50-2.00 Comprehensive metabolic panel - 02/27/19 18:37 Serum or plasma sodium measurement (moles/volume) 136 mmol/L 135-145 Serum or plasma potassium measurement (moles/volume) 4.2 mmol/L 3.6-5.0 Serum or plasma chloride measurement (moles/volume) 100 mmol/L 98-107 Carbon dioxide 19 mmol/L 21-32 Serum or plasma anion gap determination (moles/volume) 17 mmol/L 5-14 Serum or plasma urea nitrogen measurement (mass/volume ) 11 mg/dL 7-18 Serum or plasma creatinine measurement (mass/volume) 1.40 mg/dL 0.60-1.30 Serum or plasma urea nitrogen/creatinine mass ratio 8 NRG Serum or plasma creatinine measurement w ith calculation of estimated glomerular filtration rate 40 NRG Serum or plasma glucose measurement (mass/volume) 407 mg/dL 70-105 Serum or plasma calcium measurement (mass/volume) 9.9 mg/dL 8.5-10.1 Serum or plasma total bilirubin measurement (mass/volu me) 1.0 mg/dL 0.1-1.0 Serum or plasma alkaline phosphatase jose alfredo surement (enzymatic activity/volume) 88 U/L 40-136 Serum or plasma aspartate aminotransfera se measurement (enzymatic activity/volume) 54 U/L 5-34 Serum or plasma alanine aminotransferase measurement (enzymatic activity/volume) 58 U/L 0-55 Serum or plasma protein measurement (mass/volume) 8.4 g/dL 6.4-8.2 Serum or plasma albumin measurement (mass/volume) 4.5 g/dL 3.2-4.5 CALCIUM CORRECTED 9.5 mg/dL 8.5-10.1 Magnesium - 02/27/19 18:37 Magnesium 1.8 mg/dL 1.6-2.4 Serum or plasma amylase measurement (enz ymatic activity/volume) - 02/27/19 18:37 Serum or plasma amylase measurement (enzymatic activit y/volume) 20 U/L 25-125 Lipase - 02/27/19 18:37 Lipase 20 U/L 8-78 Serum or plasma choriogonadotropin (preg alem test) detection - 02/27/19 18:37 Serum or plasma choriogonadotropin ( test) de tection NEGATIVE NEGATIVE Bacterial blood culture - 02/27/19 18:37 Bacterial blood culture NG NRG Bacterial blood culture - 02/27/19 19:00 Bacterial blood culture NG NRG Urine drug screening test - 02/27/19 19: 48 Urine phencyclidine detection by screening method NEGATIVE NEGATIVE Urine benzodiazepines detection by screening method NEGATIVE NEGATIVE Urine cocaine detection NEGATIVE NEGATI VE Urine amphetamines detection by screening method N EGATIVE NEGATIVE Urine methamphetamine detection by screening method NEGATIVE NEGATIVE Urine cannabinoids detection by screening method N EGATIVE NEGATIVE Urine opiates detection by screening method NEGATI VE NEGATIVE Urine barbiturates detection NEGATIVE N EGATIVE Screening urine tricyclic antidepressants detection NEGATIVE NEGATIVE Urine methadone detection by screening method NEGA TIVE NEGATIVE Urine oxycodone detection NEGATIVE NEGA TIVE Urine propoxyphene detection NEGATIVE N EGATIVE Complete urinalysis with reflex to cultu re - 02/27/19 19:48 Urine color determination YELLOW NRG Urine clarity determination CLEAR NR G Urine pH measurement by test strip 6 5-9 Specific gravity of urine by test strip 1.015 1.016-1.022 Urine protein assay by test strip, semi-quantitative 2+ NEGATIVE Urine glucose detection by automated test strip 4+ NEGATIVE Erythrocytes detection in urine sediment by light micr oscopy NEGATIVE NEGATIVE Urine ketones detection by automated test strip 4+ NEGATIVE Urine nitrite detection by test strip NEGATIVE NEGATIVE Urine total bilirubin detection by test strip NEGA TIVE NEGATIVE Urine urobilinogen measurement by automated test strip (mass/volume) NORMAL NORMAL Urine leukocyte esterase detection by dipstick NEG ATIVE NEGATIVE Automated urine sediment erythrocyte cou nt by microscopy (number/high power field) NONE NRG Automated urine sediment leukocyte count by microscopy (number/high power field) NONE NRG Bacteria detection in urine sediment by light microsco py NEGATIVE NRG Crystals detection in urine sediment by light microsco py NONE NRG Casts detection in urine sediment by light microscopy NONE NRG Mucus detection in urine sediment by light microscopy NEGATIVE NRG Complete urinalysis with reflex to culture NO NRG Arterial blood gas measurement - 9 20:40 Blood pCO2 31 mm[Hg] 35-45 Blood pO2 94 mm[Hg] 79-93 Arterial blood bicarbonate measurement (moles/volume) 20 mmol/L 23-27 Arterial blood base excess by calculation -3.7 mmo l/L -2.5-2.5 Arterial blood oxygen saturation measurement 98 % 94-100 * Inhaled oxygen flow rate ROOM AIR NRG Arterial blood pH measurement with patient temperature correction 7.42 7.37-7.43 Arterial blood carbon dioxide, total measurement (mole s/volume) 21.1 mmol/L 21.0-31.0 Body site RT RAD NRG Assessment of wrist artery patency prior to arterial p uncture POS NRG Setting of ventilation mode NO NR G Measurement of body temperature 97.5 NRG Serum or plasma lactate measurement (mol es/volume) - 02/27/19 20:45 Serum or plasma lactate measurement (moles/volume) 2.84 mmol/L 0.50-2.00 Capillary blood glucose measurement by g lucometer (mass/volume) - 02/27/19 21:39 Capillary blood glucose measurement by glucometer (mas s/volume) 147 mg/dL 70-110 Methicillin resistant Staphylococcus aur eus (MRSA) screening culture - 02/27/19 21:50 Methicillin resistant Staphylococcus aureus (MRSA) scr eening culture NEG NRG Whole blood basic metabolic panel - 02/07 07/27 22:35 Serum or plasma sodium measurement (moles/volume) 140 mmol/L 135-145 Serum or plasma potassium measurement (moles/volume) 3.9 mmol/L 3.6-5.0 Serum or plasma chloride measurement (moles/volume) 108 mmol/L 98-107 Carbon dioxide 20 mmol/L 21-32 Serum or plasma anion gap determination (moles/volume) 12 mmol/L 5-14 Serum or plasma urea nitrogen measurement (mass/volume ) 9 mg/dL 7-18 Serum or plasma creatinine measurement (mass/volume) 0.94 mg/dL 0.60-1.30 Serum or plasma urea nitrogen/creatinine mass ratio 10 NRG Serum or plasma creatinine measurement w ith calculation of estimated glomerular filtration rate > NRG Serum or plasma glucose measurement (mass/volume) 163 mg/dL 70-105 Serum or plasma calcium measurement (mass/volume) 8.3 mg/dL 8.5-10.1 Hemoglobin A1c measurement - 02/27/19 22 :35 Blood hemoglobin A1C measurement (mass/volume) 11. 5 % 4.0- 5.6 MEAN BLOOD GLUCOSE 283 % <=126 Capillary blood glucose measurement by g lucometer (mass/volume) - 02/27/19 22:54 Capillary blood glucose measurement by glucometer (mas s/volume) 170 mg/dL 70-110 Capillary blood glucose measurement by g lucometer (mass/volume) - 02/28/19 00:09 Capillary blood glucose measurement by glucometer (mas s/volume) 185 mg/dL 70-110 Complete blood count (CBC) with automate d white blood cell (WBC) differential - 02/28/19 03:03 Blood leukocytes automated count (number/volume) 7.7 10*3/uL 4.3-11.0 Blood erythrocytes automated count (number/volume) 4.47 10*6/uL 4.35-5.85 Venous blood hemoglobin measurement (mass/volume) 12.2 g/dL 11.5-16.0 Blood hematocrit (volume fraction) 38 % 35-52 Automated erythrocyte mean corpuscular volume 85 [ foz_us] 80-99 Automated erythrocyte mean corpuscular h emoglobin (mass per erythrocyte) 27 pg 25-34 Automated erythrocyte mean corpuscular h emoglobin concentration measurement (mass/volume) 32 g/dL 32-36 Automated erythrocyte distribution width ratio 15. 0 % 10.0- 14.5 Automated blood platelet count (count/volume) 211 10*3/uL 130-400 Automated blood platelet mean volume measurement 11.6 [foz_us] 7.4-10.4 Automated blood neutrophils/100 leukocytes 58 % 42-75 Automated blood lymphocytes/100 leukocytes 31 % 12-44 Blood monocytes/100 leukocytes 8 % 0-12 Automated blood eosinophils/100 leukocytes 2 % 0-10 Automated blood basophils/100 leukocytes 0 % 0-10 Blood neutrophils automated count (number/volume) 4.5 10*3 1.8-7.8 Blood lymphocytes automated count (number/volume) 2.4 10*3 1.0-4.0 Blood monocytes automated count (number/volume) 0. 6 10*3 0.0-1.0 Automated eosinophil count 0.2 10*3/uL 0 .0-0.3 Automated blood basophil count (count/volume) 0.0 10*3/uL 0.0-0.1 Comprehensive metabolic panel - 02/28/19 03:03 Serum or plasma sodium measurement (moles/volume) 141 mmol/L 135-145 Serum or plasma potassium measurement (moles/volume) 3.5 mmol/L 3.6-5.0 Serum or plasma chloride measurement (moles/volume) 109 mmol/L 98-107 Carbon dioxide 19 mmol/L 21-32 Serum or plasma anion gap determination (moles/volume) 13 mmol/L 5-14 Serum or plasma urea nitrogen measurement (mass/volume ) 9 mg/dL 7-18 Serum or plasma creatinine measurement (mass/volume) 0.90 mg/dL 0.60-1.30 Serum or plasma urea nitrogen/creatinine mass ratio 10 NRG Serum or plasma creatinine measurement w ith calculation of estimated glomerular filtration rate > NRG Serum or plasma glucose measurement (mass/volume) 224 mg/dL 70-105 Serum or plasma calcium measurement (mass/volume) 8.2 mg/dL 8.5-10.1 Serum or plasma total bilirubin measurement (mass/volu me) 0.7 mg/dL 0.1-1.0 Serum or plasma alkaline phosphatase jose alfredo surement (enzymatic activity/volume) 63 U/L 40-136 Serum or plasma aspartate aminotransfera se measurement (enzymatic activity/volume) 38 U/L 5-34 Serum or plasma alanine aminotransferase measurement (enzymatic activity/volume) 43 U/L 0-55 Serum or plasma protein measurement (mass/volume) 6.4 g/dL 6.4-8.2 Serum or plasma albumin measurement (mass/volume) 3.5 g/dL 3.2-4.5 CALCIUM CORRECTED 8.6 mg/dL 8.5-10.1 Serum or plasma phosphate measurement (m ass/volume) - 02/28/19 03:03 Serum or plasma phosphate measurement (mass/volume) 3.5 mg/dL 2.3-4.7 Magnesium - 02/28/19 03:03 Magnesium 1.7 mg/dL 1.6-2.4 Blood lactic acid measurement (moles/vol ume) - 02/28/19 11:00 Blood lactic acid measurement (moles/volume) 1.07 mmol/L 0.50-2.00 Capillary blood glucose measurement by g lucometer (mass/volume) - 02/28/19 11:22 Capillary blood glucose measurement by glucometer (mas s/volume) 279 mg/dL 70-110 Capillary blood glucose measurement by g lucometer (mass/volume) - 02/28/19 16:13 Capillary blood glucose measurement by glucometer (mas s/volume) 283 mg/dL 70-110 Capillary blood glucose measurement by g lucometer (mass/volume) - 02/28/19 20:23 Capillary blood glucose measurement by glucometer (mas s/volume) 157 mg/dL 70-110 Complete blood count (CBC) with automate d white blood cell (WBC) differential - 03/01/19 05:23 Blood leukocytes automated count (number/volume) 6.1 10*3/uL 4.3-11.0 Blood erythrocytes automated count (number/volume) 4.25 10*6/uL 4.35-5.85 Venous blood hemoglobin measurement (mass/volume) 11.6 g/dL 11.5-16.0 Blood hematocrit (volume fraction) 36 % 35-52 Automated erythrocyte mean corpuscular volume 85 [ foz_us] 80-99 Automated erythrocyte mean corpuscular h emoglobin (mass per erythrocyte) 27 pg 25-34 Automated erythrocyte mean corpuscular h emoglobin concentration measurement (mass/volume) 32 g/dL 32-36 Automated erythrocyte distribution width ratio 15. 3 % 10.0- 14.5 Automated blood platelet count (count/volume) 185 10*3/uL 130-400 Automated blood platelet mean volume measurement 11.4 [foz_us] 7.4-10.4 Automated blood neutrophils/100 leukocytes 58 % 42-75 Automated blood lymphocytes/100 leukocytes 33 % 12-44 Blood monocytes/100 leukocytes 6 % 0-12 Automated blood eosinophils/100 leukocytes 3 % 0-10 Automated blood basophils/100 leukocytes 1 % 0-10 Blood neutrophils automated count (number/volume) 3.6 10*3 1.8-7.8 Blood lymphocytes automated count (number/volume) 2.0 10*3 1.0-4.0 Blood monocytes automated count (number/volume) 0. 4 10*3 0.0-1.0 Automated eosinophil count 0.2 10*3/uL 0 .0-0.3 Automated blood basophil count (count/volume) 0.0 10*3/uL 0.0-0.1 Whole blood basic metabolic panel - 02/07 09/24 05:23 Serum or plasma sodium measurement (moles/volume) 136 mmol/L 135-145 Serum or plasma potassium measurement (moles/volume) 3.7 mmol/L 3.6-5.0 Serum or plasma chloride measurement (moles/volume) 108 mmol/L 98-107 Carbon dioxide 19 mmol/L 21-32 Serum or plasma anion gap determination (moles/volume) 9 mmol/L 5-14 Serum or plasma urea nitrogen measurement (mass/volume ) 6 mg/dL 7-18 Serum or plasma creatinine measurement (mass/volume) 0.80 mg/dL 0.60-1.30 Serum or plasma urea nitrogen/creatinine mass ratio 8 NRG Serum or plasma creatinine measurement w ith calculation of estimated glomerular filtration rate > NRG Serum or plasma glucose measurement (mass/volume) 222 mg/dL 70-105 Serum or plasma calcium measurement (mass/volume) 8.3 mg/dL 8.5-10.1 Serum or plasma phosphate measurement (m ass/volume) - 03/01/19 05:23 Serum or plasma phosphate measurement (mass/volume) 2.9 mg/dL 2.3-4.7 Magnesium - 03/01/19 05:23 Magnesium 1.8 mg/dL 1.6-2.4 Capillary blood glucose measurement by g lucometer (mass/volume) - 03/01/19 05:27 Capillary blood glucose measurement by glucometer (mas s/volume) 219 mg/dL 70-110 Complete blood count (CBC) with automate d white blood cell (WBC) differential - 11/21/19 09:34 Blood leukocytes automated count (number/volume) 6.1 10*3/uL 4.3-11.0 Blood erythrocytes automated count (number/volume) 4.75 10*6/uL 4.35-5.85 Venous blood hemoglobin measurement (mass/volume) 12.8 g/dL 11.5-16.0 Blood hematocrit (volume fraction) 40 % 35-52 Automated erythrocyte mean corpuscular volume 84 [ foz_us] 80-99 Automated erythrocyte mean corpuscular h emoglobin (mass per erythrocyte) 27 pg 25-34 Automated erythrocyte mean corpuscular h emoglobin concentration measurement (mass/volume) 32 g/dL 32-36 Automated erythrocyte distribution width ratio 16. 6 % 10.0- 14.5 Automated blood platelet count (count/volume) 280 10*3/uL 130-400 Automated blood platelet mean volume measurement 11.3 [foz_us] 7.4-10.4 Automated blood neutrophils/100 leukocytes 58 % 42-75 Automated blood lymphocytes/100 leukocytes 34 % 12-44 Blood monocytes/100 leukocytes 6 % 0-12 Automated blood eosinophils/100 leukocytes 2 % 0-10 Automated blood basophils/100 leukocytes 1 % 0-10 Blood neutrophils automated count (number/volume) 3.5 10*3 1.8-7.8 Blood lymphocytes automated count (number/volume) 2.1 10*3 1.0-4.0 Blood monocytes automated count (number/volume) 0. 4 10*3 0.0-1.0 Automated eosinophil count 0.1 10*3/uL 0 .0-0.3 Automated blood basophil count (count/volume) 0.0 10*3/uL 0.0-0.1 Comprehensive metabolic panel - 11/21/19 09:34 Serum or plasma sodium measurement (moles/volume) 140 mmol/L 135-145 Serum or plasma potassium measurement (moles/volume) 3.8 mmol/L 3.6-5.0 Serum or plasma chloride measurement (moles/volume) 106 mmol/L 98-107 Carbon dioxide 20 mmol/L 21-32 Serum or plasma anion gap determination (moles/volume) 14 mmol/L 5-14 Serum or plasma urea nitrogen measurement (mass/volume ) 14 mg/dL 7-18 Serum or plasma creatinine measurement (mass/volume) 1.09 mg/dL 0.60-1.30 Serum or plasma urea nitrogen/creatinine mass ratio 13 NRG Serum or plasma creatinine measurement w ith calculation of estimated glomerular filtration rate 53 NRG Serum or plasma glucose measurement (mass/volume) 117 mg/dL 70-105 Serum or plasma calcium measurement (mass/volume) 9.8 mg/dL 8.5-10.1 Serum or plasma total bilirubin measurement (mass/volu me) 0.7 mg/dL 0.1-1.0 Serum or plasma alkaline phosphatase jose alfredo surement (enzymatic activity/volume) 45 U/L 40-136 Serum or plasma aspartate aminotransfera se measurement (enzymatic activity/volume) 15 U/L 5-34 Serum or plasma alanine aminotransferase measurement (enzymatic activity/volume) 11 U/L 0-55 Serum or plasma protein measurement (mass/volume) 7.7 g/dL 6.4-8.2 Serum or plasma albumin measurement (mass/volume) 4.0 g/dL 3.2-4.5 CALCIUM CORRECTED 9.8 mg/dL 8.5-10.1 Lipase - 11/21/19 09:34 Lipase 53 U/L 8-78 Urine drug screening test - 11/21/19 09: 34 Urine phencyclidine detection by screening method NEGATIVE NEGATIVE Urine benzodiazepines detection by screening method NEGATIVE NEGATIVE Urine cocaine detection NEGATIVE NEGATI VE Urine amphetamines detection by screening method N EGATIVE NEGATIVE Urine methamphetamine detection by screening method NEGATIVE NEGATIVE Urine cannabinoids detection by screening method N EGATIVE NEGATIVE Urine opiates detection by screening method NEGATI VE NEGATIVE Urine barbiturates detection POSITIVE N EGATIVE Screening urine tricyclic antidepressants detection POSITIVE NEGATIVE Urine methadone detection by screening method NEGA TIVE NEGATIVE Urine oxycodone detection NEGATIVE NEGA TIVE Urine propoxyphene detection NEGATIVE N EGATIVE Bacterial urine culture - 11/21/19 09:34 Bacterial urine culture 3 OR MORE NRG COLONY COUNT >100,000/ML NRG SUSCEPTIBILITY (GRAM POSITIVE) SUGGESTING PROBABLE NRG MRSA SCREEN COLLECTION CONTAMINATION WITH SKIN NRG RAPID ID BRENNON. NO SUSCEPTIBILITY PERFORMED NRG COVID-19 (QUEST) - 11/21/19 17:34 Complete urinalysis with reflex to cultu re - 11/21/19 22:56 Urine color determination ORANGE NRG Urine clarity determination SL CLOUDY N RG Urine pH measurement by test strip 5.0 5-9 Specific gravity of urine by test strip 1.025 1.016-1.022 Urine protein assay by test strip, semi-quantitative 1+ NEGATIVE Urine glucose detection by automated test strip 3+ NEGATIVE Erythrocytes detection in urine sediment by light micr oscopy 1+ NEGATIVE Urine ketones detection by automated test strip TR NICHOLAS NEGATIVE Urine nitrite detection by test strip NEGATIVE NEGATIVE Urine total bilirubin detection by test strip 1+ NEGATIVE Urine urobilinogen measurement by automated test strip (mass/volume) 1.0 mg/dL < = 1.0 Urine leukocyte esterase detection by dipstick NEG ATIVE NEGATIVE Automated urine sediment erythrocyte cou nt by microscopy (number/high power field) [HPF] NRG Automated urine sediment leukocyte count by microscopy (number/high power field) NONE NRG Bacteria detection in urine sediment by light microsco py TRACE NRG Squamous epithelial cells detection in u rine sediment by light microscopy 5-10 NRG Crystals detection in urine sediment by light microsco py NONE NRG Casts detection in urine sediment by light microscopy NONE NRG Mucus detection in urine sediment by light microscopy SMALL NRG Complete urinalysis with reflex to culture NO NRG Complete blood count (CBC) with automate d white blood cell (WBC) differential - 11/21/19 23:54 Blood leukocytes automated count (number/volume) 9.4 10*3/uL 4.3-11.0 Blood erythrocytes automated count (number/volume) 4.75 10*6/uL 4.35-5.85 Venous blood hemoglobin measurement (mass/volume) 12.7 g/dL 11.5-16.0 Blood hematocrit (volume fraction) 39 % 35-52 Automated erythrocyte mean corpuscular volume 82 [ foz_us] 80-99 Automated erythrocyte mean corpuscular h emoglobin (mass per erythrocyte) 27 pg 25-34 Automated erythrocyte mean corpuscular h emoglobin concentration measurement (mass/volume) 33 g/dL 32-36 Automated erythrocyte distribution width ratio 17. 3 % 10.0- 14.5 Automated blood platelet count (count/volume) 305 10*3/uL 130-400 Automated blood platelet mean volume measurement 11.1 [foz_us] 7.4-10.4 Automated blood neutrophils/100 leukocytes 63 % 42-75 Automated blood lymphocytes/100 leukocytes 27 % 12-44 Blood monocytes/100 leukocytes 9 % 0-12 Automated blood eosinophils/100 leukocytes 0 % 0-10 Automated blood basophils/100 leukocytes 0 % 0-10 Blood neutrophils automated count (number/volume) 5.9 10*3 1.8-7.8 Blood lymphocytes automated count (number/volume) 2.6 10*3 1.0-4.0 Blood monocytes automated count (number/volume) 0. 8 10*3 0.0-1.0 Automated eosinophil count 0.0 10*3/uL 0 .0-0.3 Automated blood basophil count (count/volume) 0.0 10*3/uL 0.0-0.1 Comprehensive metabolic panel - 11/21/19 23:54 Serum or plasma sodium measurement (moles/volume) 141 mmol/L 135-145 Serum or plasma potassium measurement (moles/volume) 4.0 mmol/L 3.6-5.0 Serum or plasma chloride measurement (moles/volume) 107 mmol/L 98-107 Carbon dioxide 14 mmol/L 21-32 Serum or plasma anion gap determination (moles/volume) 20 mmol/L 5-14 Serum or plasma urea nitrogen measurement (mass/volume ) 18 mg/dL 7-18 Serum or plasma creatinine measurement (mass/volume) 1.64 mg/dL 0.60-1.30 Serum or plasma urea nitrogen/creatinine mass ratio 11 NRG Serum or plasma creatinine measurement w ith calculation of estimated glomerular filtration rate 33 NRG Serum or plasma glucose measurement (mass/volume) 142 mg/dL 70-105 Serum or plasma calcium measurement (mass/volume) 10.3 mg/dL 8.5-10.1 Serum or plasma total bilirubin measurement (mass/volu me) 0.9 mg/dL 0.1-1.0 Serum or plasma alkaline phosphatase jose alfredo surement (enzymatic activity/volume) 45 U/L 40-136 Serum or plasma aspartate aminotransfera se measurement (enzymatic activity/volume) 26 U/L 5-34 Serum or plasma alanine aminotransferase measurement (enzymatic activity/volume) 13 U/L 0-55 Serum or plasma protein measurement (mass/volume) 8.4 g/dL 6.4-8.2 Serum or plasma albumin measurement (mass/volume) 4.3 g/dL 3.2-4.5 CALCIUM CORRECTED 10.1 mg/dL 8.5-10.1 Lipase - 11/21/19 23:54 Lipase 28 U/L 8-78 Serum or plasma C reactive protein measu rement (mass/volume) - 11/21/19 23:54 Serum or plasma C reactive protein measurement (mass/v olume) 0.45 mg/dL 0.00-0.50 Complete blood count (CBC) with automate d white blood cell (WBC) differential - 11/22/19 06:10 Blood leukocytes automated count (number/volume) 7.2 10*3/uL 4.3-11.0 Blood erythrocytes automated count (number/volume) 4.37 10*6/uL 4.35-5.85 Venous blood hemoglobin measurement (mass/volume) 11.9 g/dL 11.5-16.0 Blood hematocrit (volume fraction) 35 % 35-52 Automated erythrocyte mean corpuscular volume 81 [ foz_us] 80-99 Automated erythrocyte mean corpuscular h emoglobin (mass per erythrocyte) 27 pg 25-34 Automated erythrocyte mean corpuscular h emoglobin concentration measurement (mass/volume) 34 g/dL 32-36 Automated erythrocyte distribution width ratio 17. 3 % 10.0- 14.5 Automated blood platelet count (count/volume) 267 10*3/uL 130-400 Automated blood platelet mean volume measurement 10.9 [foz_us] 7.4-10.4 Automated blood neutrophils/100 leukocytes 59 % 42-75 Automated blood lymphocytes/100 leukocytes 31 % 12-44 Blood monocytes/100 leukocytes 9 % 0-12 Automated blood eosinophils/100 leukocytes 0 % 0-10 Automated blood basophils/100 leukocytes 0 % 0-10 Blood neutrophils automated count (number/volume) 4.3 10*3 1.8-7.8 Blood lymphocytes automated count (number/volume) 2.3 10*3 1.0-4.0 Blood monocytes automated count (number/volume) 0. 7 10*3 0.0-1.0 Automated eosinophil count 0.0 10*3/uL 0 .0-0.3 Automated blood basophil count (count/volume) 0.0 10*3/uL 0.0-0.1 Comprehensive metabolic panel - 11/22/19 06:10 Serum or plasma sodium measurement (moles/volume) 142 mmol/L 135-145 Serum or plasma potassium measurement (moles/volume) 3.2 mmol/L 3.6-5.0 Serum or plasma chloride measurement (moles/volume) 109 mmol/L 98-107 Carbon dioxide 17 mmol/L 21-32 Serum or plasma anion gap determination (moles/volume) 16 mmol/L 5-14 Serum or plasma urea nitrogen measurement (mass/volume ) 16 mg/dL 7-18 Serum or plasma creatinine measurement (mass/volume) 1.42 mg/dL 0.60-1.30 Serum or plasma urea nitrogen/creatinine mass ratio 11 NRG Serum or plasma creatinine measurement w ith calculation of estimated glomerular filtration rate 39 NRG Serum or plasma glucose measurement (mass/volume) 143 mg/dL 70-105 Serum or plasma calcium measurement (mass/volume) 9.7 mg/dL 8.5-10.1 Serum or plasma total bilirubin measurement (mass/volu me) 1.0 mg/dL 0.1-1.0 Serum or plasma alkaline phosphatase jose alfredo surement (enzymatic activity/volume) 41 U/L 40-136 Serum or plasma aspartate aminotransfera se measurement (enzymatic activity/volume) 16 U/L 5-34 Serum or plasma alanine aminotransferase measurement (enzymatic activity/volume) 11 U/L 0-55 Serum or plasma protein measurement (mass/volume) 7.2 g/dL 6.4-8.2 Serum or plasma albumin measurement (mass/volume) 4.1 g/dL 3.2-4.5 CALCIUM CORRECTED 9.6 mg/dL 8.5-10.1 Capillary blood glucose measurement by g lucometer (mass/volume) - 11/22/19 20:46 Capillary blood glucose measurement by glucometer (mas s/volume) 112 mg/dL 70-110 Capillary blood glucose measurement by g lucometer (mass/volume) - 11/23/19 05:42 Capillary blood glucose measurement by glucometer (mas s/volume) 132 mg/dL 70-110 Complete blood count (CBC) with automate d white blood cell (WBC) differential - 11/23/19 06:40 Blood leukocytes automated count (number/volume) 5.1 10*3/uL 4.3-11.0 Blood erythrocytes automated count (number/volume) 3.90 10*6/uL 4.35-5.85 Venous blood hemoglobin measurement (mass/volume) 10.7 g/dL 11.5-16.0 Blood hematocrit (volume fraction) 33 % 35-52 Automated erythrocyte mean corpuscular volume 85 [ foz_us] 80-99 Automated erythrocyte mean corpuscular h emoglobin (mass per erythrocyte) 27 pg 25-34 Automated erythrocyte mean corpuscular h emoglobin concentration measurement (mass/volume) 32 g/dL 32-36 Automated erythrocyte distribution width ratio 17. 3 % 10.0- 14.5 Automated blood platelet count (count/volume) 204 10*3/uL 130-400 Automated blood platelet mean volume measurement 11.1 [foz_us] 7.4-10.4 Automated blood neutrophils/100 leukocytes 48 % 42-75 Automated blood lymphocytes/100 leukocytes 39 % 12-44 Blood monocytes/100 leukocytes 8 % 0-12 Automated blood eosinophils/100 leukocytes 4 % 0-10 Automated blood basophils/100 leukocytes 0 % 0-10 Blood neutrophils automated count (number/volume) 2.4 10*3 1.8-7.8 Blood lymphocytes automated count (number/volume) 2.0 10*3 1.0-4.0 Blood monocytes automated count (number/volume) 0. 4 10*3 0.0-1.0 Automated eosinophil count 0.2 10*3/uL 0 .0-0.3 Automated blood basophil count (count/volume) 0.0 10*3/uL 0.0-0.1 Comprehensive metabolic panel - 11/23/19 06:40 Serum or plasma sodium measurement (moles/volume) 140 mmol/L 135-145 Serum or plasma potassium measurement (moles/volume) 3.3 mmol/L 3.6-5.0 Serum or plasma chloride measurement (moles/volume) 109 mmol/L 98-107 Carbon dioxide 22 mmol/L 21-32 Serum or plasma anion gap determination (moles/volume) 9 mmol/L 5-14 Serum or plasma urea nitrogen measurement (mass/volume ) 9 mg/dL 7-18 Serum or plasma creatinine measurement (mass/volume) 0.98 mg/dL 0.60-1.30 Serum or plasma urea nitrogen/creatinine mass ratio 9 NRG Serum or plasma creatinine measurement w ith calculation of estimated glomerular filtration rate 60 NRG Serum or plasma glucose measurement (mass/volume) 124 mg/dL 70-105 Serum or plasma calcium measurement (mass/volume) 8.4 mg/dL 8.5-10.1 Serum or plasma total bilirubin measurement (mass/volu me) 0.6 mg/dL 0.1-1.0 Serum or plasma alkaline phosphatase jose alfredo surement (enzymatic activity/volume) 35 U/L 40-136 Serum or plasma aspartate aminotransfera se measurement (enzymatic activity/volume) 15 U/L 5-34 Serum or plasma alanine aminotransferase measurement (enzymatic activity/volume) 9 U/L 0-55 Serum or plasma protein measurement (mass/volume) 6.3 g/dL 6.4-8.2 Serum or plasma albumin measurement (mass/volume) 3.6 g/dL 3.2-4.5 CALCIUM CORRECTED 8.7 mg/dL 8.5-10.1 Capillary blood glucose measurement by g lucometer (mass/volume) - 11/23/19 11:19 Capillary blood glucose measurement by glucometer (mas s/volume) 134 mg/dL 70-110 BMP - 12/01/19 11:20 GLUCOSE 100 mg/dL 65-99 UREA NITROGEN (BUN) 16 mg/dL 7-25 CREATININE 1.05 mg/dL 0.50-1.05 eGFR NON-AFR. CROATIAN 61 mL/min/1.73m2 > OR = 60 eGFR 71 mL/min/1.73m2 > OR = 60 BUN/CREATININE RATIO NOT APPLICABLE (calc) 6-22 SODIUM 139 mmol/L 135-146 POTASSIUM 4.4 mmol/L 3.5-5.3 CHLORIDE 103 mmol/L 98-110 CARBON DIOXIDE 29 mmol/L 20-32 CALCIUM 9.3 mg/dL 8.6-10.4 MAGNESIUM SERUM - 12/01/19 11:20 MAGNESIUM 2.0 mg/dL 1.5-2.5 Encounters ACCT No. Visit Date/Time Discharge Status Pt. Type Provider Facility Loc./Unit Complaint [id number] 09/20/2014 09:43:00 09/20/2014 23:59: 59 CLS Outpatient LOUIS GARVEY APRN [id number] 08/23/2014 17:49:00 08/23/2014 23:59: 59 CLS Outpatient ARISTEO ARAYA APRN [id number] 06/22/2014 13:52:00 06/22/2014 23:59: 59 CLS Outpatient RUBINA HARLEY APRN [id number] 06/06/2014 08:52:00 06/06/2014 23:59: 59 CLS Outpatient LEO BENITEZ MD [id number] 04/20/2014 13:59:00 04/20/2014 23:59: 59 CLS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
[2019-12-26 11:40] VITALS: BP 105/58
[2019-12-26 11:55] VITALS: BP 105/58
--- NOTE | 2019-12-26 14:18 | Anesthesia-General Post-Op ---
MAC Patient Condition Mental Status/LOC: Same as Preop Cardiovascular: Satisfactory Nausea/Vomiting: Absent Respiratory: Satisfactory Pain: Controlled Complications: Absent Post Op Complications Complications None Follow Up Care/Instructions Patient Instructions None needed. Anesthesiology Discharge Order Discharge Order Patient was seen this morning after the procedure and she was doing well, no complaints, stable vital signs, no apparent adverse anesthesia problems. ORAL FRANCOIS DO Dec 26, 2019 14:17
--- NOTE | 2019-12-27 04:39 | OPERATIVE REPORT ---
DATE OF SERVICE: 12/26/2019 PREOPERATIVE DIAGNOSES: Right upper quadrant pain and melena. POSTOPERATIVE DIAGNOSES: Gastritis, hiatal hernia, esophagitis as well as diverticula, internal hemorrhoids and poor prep. PROCEDURES: 1. EGD with biopsy. 2. Colonoscopy. SURGEON: Raghavendra Gill DO PIANO MAKER: None. ANESTHESIA: IV sedation by the anesthesiologist. SPECIMEN: Biopsy from the antrum, GE junction and the body of the stomach. BLOOD LOSS: Scant. FLUIDS: Per anesthesia. POSTOPERATIVE CONDITION: Stable. INDICATION FOR PROCEDURE: The patient is a 49-year-old female who has been having some right upper quadrant pain and abdominal pain as well. She had some melena and has not had a colonoscopy, needs one. FINDINGS: The patient had gastritis, hiatal hernia, and esophagitis. She also had some small diverticula and internal hemorrhoids, but she had a poor prep, could not clear all of it. She will need a repeat colonoscopy in a year. PROCEDURE NOTE: After informed consent was obtained, the patient was brought to the endoscopy suite, placed in bed in left lateral decubitus position. He was administered IV sedation by the anesthesiologist who then monitored her vitals the entire time, heart rate, blood pressure and pulse ox and the scope started with the EGD, placed the scope down the mouth through the esophagus into the stomach. Upon entering the stomach, saw some gastritis of the antrum, took a picture, pushed into the duodenum, looked normal, took a picture and then pulled back and did a biopsy of the antrum. Retroflexed the scope, saw hiatal hernia and then did a biopsy of body of stomach and then pulled the scope into the GE junction, noted what looked like some esophagitis, some creeping up of the Z line, took a picture of this and then did a biopsy here, pushed the scope back into the stomach, suctioned all the air out and then pulled the scope up the esophagus and out the mouth. Switched camera, switched gloves, went down below, started the colonoscopy, pushed the scope in, on the way in, noted unfortunately a lot of retained fecal material covering the reynolds, able to get some of this off, but not all of it with flushing, push to about [address] way to cecum, took a picture of appendiceal orifice and noted the ileocecal valve and then slowly withdrew the scope insufflating the circumferential reynolds looking the cecum, up the ascending colon to the hepatic flexure, then down the transverse colon, the splenic flexure, into the descending colon. Through the descending colon and sigmoid, saw some small diverticula. Again, lot of stool covering the reynolds here, able to get down, could down through the sigmoid colon into the rectum, retroflexed in rectal vault, saw some minimal internal hemorrhoids. I did not see any large masses, but could have missed small polyps, so she will need repeat colonoscopy. Scope was removed. The patient tolerated the procedure, recovered in endoscopy suite. Job ID: [id number] DocumentID: [id number] Dictated Date: 12/26/2019 20:43:35 Hogshead Hand Date: 12/27/2019 04:39:17 Dictated By: RAGHAVENDRA GILL DO
== END 2019-12-26 11:55 | disposition home or self-care (01) ==
LOC: ENDO 09:36
PROVIDERS: ATTEND Surgery
DX: K29.50 Unspecified chronic gastritis without bleeding (principal); K44.9 Diaphragmatic hernia without obstruction or gangrene; K20.9 Esophagitis, unspecified; K64.8 Other hemorrhoids; K57.30 Diverticulosis of large intestine without perforation or abscess without bleeding; K92.1 Melena; E11.9 Type 2 diabetes mellitus without complications; E78.5 Hyperlipidemia, unspecified; I10 Essential (primary) hypertension; F41.9 Anxiety disorder, unspecified; J45.909 Unspecified asthma, uncomplicated; F90.2 Attention-deficit hyperactivity disorder, combined type; M51.36 Other intervertebral disc degeneration, lumbar region; M79.18 Myalgia, other site; F43.10 Post-traumatic stress disorder, unspecified; G43.909 Migraine, unspecified, not intractable, without status migrainosus; E66.9 Obesity, unspecified; Z68.41 Body mass index [BMI] 40.0-44.9, adult; Z79.899 Other long term (current) drug therapy; Z79.51 Long term (current) use of inhaled steroids; Z91.048 Other nonmedicinal substance allergy status; Z88.8 Allergy status to other drugs, medicaments and biological substances
CPT/HCPCS: 88305

== ENCOUNTER 2020-01-30 14:19 | Emergency (ER) | payer MEDICAID ==
[~2020-01-30] VITALS: Ht 160 cm; Wt 112.0 kg
[2020-01-30] MEDS ORDERED: ASPIRIN 81 MG CHEW (CHILDREN'S ASA) PO ONE (14:30)
[2020-01-30] MEDS ORDERED: PROMETHAZINE INJ 25 MG/ML (PHENERGAN) AMP IVP ONE (14:30)
--- NOTE | 2020-01-30 14:32 | ED Upper Extremity ---
General Stated Complaint: L ARM PAIN Source: patient Exam Limitations: no limitations History of Present Illness Date Seen by Provider: Jan 30, 2020 Time Seen by Provider: 14:30 Initial Comments to ER with left arm pain that radiated up into her side of her neck. She arrives by EMS from home. This started just a little bit ago while she was holding the phone with her left hand talking on the phone. She has also had some nausea and vomiting for the past 3 or 4 days. No fevers or chills. No cough no shortness of breath. No diarrhea. Has had a cardiac catheterization in recent years which was normal she states. Onset: just prior to arrival Severity: moderate Pain/Injury Location: left shoulder Method of Injury: unknown Allergies and Home Medications Allergies Coded Allergies: lisinopril (Verified Allergy, Mild, COUGH, 03/05/17) montelukast (Verified Allergy, Unknown, UNABLE TO REMEMBER REACTION, 12/13/19) Uncoded Allergies: METALS (Allergy, Unknown, 07/12/14) Home Medications Acetaminophen 325 Mg Tablet, 650 MG PO Q6H PRN for PAIN-MILD, (Reported) Butalb/Acetaminophen/Caffeine 1 Each Tablet, 1 EA PO QID PRN for MIGRAINE, (Reported) Canagliflozin 300 Mg Tablet, 300 MG PO DAILY, (Reported) Docusate Sodium 100 Mg Capsule, 100 MG PO DAILY PRN for CONSTIPATION-1ST LINE, (Reported) Duloxetine HCl 60 Mg Capsule.dr, 60 MG PO DAILY, (Reported) TAKES 30MG +60MG DAILY TO EQUAL 90MG Duloxetine HCl 30 Mg Capsule.dr, 30 MG PO DAILY, (Reported) TAKES 30MG +60MG DAILY TO EQUAL 90MG Gabapentin 600 Mg Tablet, 600 MG PO TID, (Reported) Insulin Detemir 100 Unit/1 Ml Insuln.pen, 15 UNIT SQ HS, (Reported) Ondansetron 4 Mg Tab.rapdis, 4 MG PO Q6H PRN for NAUSEA/VOMITING Prescribed by: LUÍS RITCHIE on 11/21/19 1250 Pantoprazole Sodium 40 Mg Tablet.dr, 40 MG PO DAILY, (Reported) Pioglitazone HCl 45 Mg Tablet, 45 MG PO DAILY, (Reported) Propranolol HCl 60 Mg Tablet, 60 MG PO BID, (Reported) Quetiapine Fumarate 200 Mg Tablet, 200 MG PO HS, (Reported) Spironolactone 25 Mg Tablet, 25 MG PO DAILY, (Reported) Patient Home Medication List Home Medication List Reviewed: Yes Review of Systems Constitutional: see HPI; No chills, No fever EENTM: see HPI Respiratory: see HPI, cough Cardiovascular: see HPI Genitourinary: no symptoms reported Musculoskeletal: no symptoms reported Skin: no symptoms reported Psychiatric/Neurological: No Symptoms Reported Past Shnqzoa-Yljtyn-Nxrkfk Hx Patient Social History Type Used: Electronic/Vapor 2nd Hand Smoke Exposure: No Recent Hopitalizations: Yes (11/2019-ABDOMINAL PAIN) Immunizations Up To Date Tetanus Booster (TDap): More than 5yrs Seasonal Allergies Seasonal Allergies: No Past Medical History Surgeries: Yes (D&C; RIGHT KNEE SCOPE X 2; EGD; CARDIAC CATH 2012--NO INTERVENTION) Cardiac, Eye Surgery, Orthopedic Respiratory: Yes Asthma Currently Using CPAP: No Currently Using BIPAP: No Cardiac: Yes (CARDIAC CATH 2012--NORMAL CORONARIES, NO INTERVENTION) High Cholesterol, Hypertension Neurological: Yes Headaches /Migraines 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 Disorders: No Female 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 Disorders: Denies [employer]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 CVA, Seizures Physical Exam Vital Signs Vital Signs - First Documented 01/30/20 14:30 Temp 37.0 Pulse 93 Resp 18 B/P (MAP) 131/88 (102) Pulse Ox 96 O2 Delivery Room Air Capillary Refill : Height, Weight, BMI Height: 5'3.00" Weight: 240lbs. 2.0oz. 108.056286fo; 43.67 BMI Method:Stated General Appearance: WD/WN, no apparent distress HEENT: PERRL/EOMI, normal ENT inspection Neck: non-tender, full range of motion Respiratory: no respiratory distress, no accessory muscle use Shoulder: normal inspection, non-tender, no evidence of injury Elbow/Forearm: normal inspection, non-tender Wrist: Yes normal inspection, Yes non-tender Hand: normal inspection, non-tender Neurologic/Psychiatric: alert, normal mood/affect, oriented x 3 Skin: normal color, warm/dry Progress/Results/Core Measures Results/Orders Lab Results Laboratory Tests Test 01/30/20 14:27 01/30/20 14:50 01/30/20 16:48 Range/Units White Blood Count 7.3 4.3-11.0 10^3/uL Red Blood Count 4.73 4.35-5.85 10^6/uL Hemoglobin 12.8 11.5-16.0 G/DL Hematocrit 39 35-52 % Mean Corpuscular Volume 82 80-99 FL Mean Corpuscular Hemoglobin 27 25-34 PG Mean Corpuscular Hemoglobin Concent 33 32-36 G/DL Red Cell Distribution Width 17.1 H 10.0-14.5 % Platelet Count 288 130-400 10^3/uL Mean Platelet Volume 10.9 H 7.4-10.4 FL Neutrophils (%) (Auto) 62 42-75 % Lymphocytes (%) (Auto) 29 12-44 % Monocytes (%) (Auto) 8 0-12 % Eosinophils (%) (Auto) 1 0-10 % Basophils (%) (Auto) 0 0-10 % Neutrophils # (Auto) 4.5 1.8-7.8 X 10^3 Lymphocytes # (Auto) 2.1 1.0-4.0 X 10^3 Monocytes # (Auto) 0.6 0.0-1.0 X 10^3 Eosinophils # (Auto) 0.1 0.0-0.3 10^3/uL Basophils # (Auto) 0.0 0.0-0.1 10^3/uL Prothrombin Time 13.5 12.2-14.7 SEC INR Comment 1.0 0.8-1.4 Activated Partial Thromboplast Time 30 24-35 SEC Sodium Level 140 135-145 MMOL/L Potassium Level 3.7 3.6-5.0 MMOL/L Chloride Level 107 98-107 MMOL/L Carbon Dioxide Level 20 L 21-32 MMOL/L Anion Gap 13 5-14 MMOL/L Blood Urea Nitrogen 17 7-18 MG/DL Creatinine 1.29 0.60-1.30 MG/DL Estimat Glomerular Filtration Rate 44 BUN/Creatinine Ratio 13 Glucose Level 111 H 70-105 MG/DL Calcium Level 9.7 8.5-10.1 MG/DL Corrected Calcium 9.4 8.5-10.1 MG/DL Magnesium Level 1.7 1.6-2.4 MG/DL Total Bilirubin 0.9 0.1-1.0 MG/DL Aspartate Amino Transf (AST/SGOT) 15 5-34 U/L Alanine Aminotransferase (ALT/SGPT) 13 0-55 U/L Alkaline Phosphatase 44 40-136 U/L Myoglobin 36.8 10.0-92.0 NG/ML Troponin I < 0.028 < 0.028 <0.028 NG/ML B-Type Natriuretic Peptide < 10.0 <100.0 PG/ML Total Protein 8.0 6.4-8.2 GM/DL Albumin 4.4 3.2-4.5 GM/DL Lipase 25 8-78 U/L Urine Color YELLOW Urine Clarity CLEAR Urine pH 5.5 5-9 Urine Specific Cylinder 1.025 H 1.016-1.022 Urine Protein NEGATIVE NEGATIVE Urine Glucose (UA) 2+ H NEGATIVE Urine Ketones 2+ H NEGATIVE Urine Nitrite NEGATIVE NEGATIVE Urine Bilirubin NEGATIVE NEGATIVE Urine Urobilinogen 1.0 < = 1.0 MG/DL Urine Leukocyte Esterase NEGATIVE NEGATIVE Urine RBC (Auto) NEGATIVE NEGATIVE Urine RBC NONE /HPF Urine WBC 2-5 /HPF Urine Squamous Epithelial Cells 10-25 H /HPF Urine Crystals NONE /LPF Urine Bacteria TRACE /HPF Urine Casts NONE /LPF Urine Mucus NEGATIVE /LPF Urine Culture Indicated NO Urine Opiates Screen NEGATIVE NEGATIVE Urine Oxycodone Screen NEGATIVE NEGATIVE Urine Methadone Screen NEGATIVE NEGATIVE Urine Propoxyphene Screen NEGATIVE NEGATIVE Urine Barbiturates Screen POSITIVE H NEGATIVE Ur Tricyclic Antidepressants Screen POSITIVE H NEGATIVE Urine Phencyclidine Screen NEGATIVE NEGATIVE Urine Amphetamines Screen NEGATIVE NEGATIVE Urine Methamphetamines Screen NEGATIVE NEGATIVE Urine Benzodiazepines Screen NEGATIVE NEGATIVE Urine Cocaine Screen NEGATIVE NEGATIVE Urine Cannabinoids Screen NEGATIVE NEGATIVE My Orders Orders - SHAN BLACK 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 Cbc With Automated Diff (01/30/20 14:29) Magnesium (01/30/20 14:29) Chest 1 View, Ap/Pa Only (01/30/20 14:29) Ekg Tracing (01/30/20 14:29) Comprehensive Metabolic Panel (01/30/20 14:29) Myoglobin Serum (01/30/20 14:29) Protime With Inr (8/24/20 14:29) Partial Thromboplastin Time (01/30/20 14:29) O2 (01/30/20 14:29) Monitor-Rhythm Ecg Trace Only (01/30/20 14:29) Lipid Panel (01/31/20 06:00) Ed Iv/Invasive Line Start (01/30/20 14:29) Lipase (01/30/20 14:29) BNP (01/30/20 14:29) Troponin I (01/30/20 14:29) Aspirin Chewable Tablet (Baby Aspirin Ch (01/30/20 14:30) Promethazine Injection (Phenergan Injec (01/30/20 14:30) Ua Culture If Indicated (01/30/20 14:47) Drug Screen Stat (Urine) (01/30/20 15:17) Troponin I (01/30/20 16:25) Medications Given in ED Current Medications Medications Dose Ordered Sig/Kate Route Start Time Stop Time Status Last Admin Dose Admin Aspirin 324 mg ONCE ONCE PO 01/30/20 14:30 01/30/20 14:32 DC 01/30/20 14:52 324 MG Promethazine HCl 12.5 mg ONCE ONCE IVP 01/30/20 14:30 01/30/20 14:32 DC 01/30/20 14:52 12.5 MG Vital Signs/I&O 01/30/20 14:30 Temp 37.0 Pulse 93 Resp 18 B/P (MAP) 131/88 (102) Pulse Ox 96 O2 Delivery Room Air Departure Impression Primary Impression: Nausea and vomiting Additional Impression: Left shoulder pain Disposition: 01 HOME, SELF-CARE Condition: Stable Departure-Patient Inst. Decision time for Depature: 17:37 Referrals: [facility]SARAH (PCP) Primary Care Physician ARISTEO ARAYA (Family) Primary Care Physician Patient Instructions: Nausea and Vomiting, Adult Add. Discharge Instructions: 1. Return to ER for any concerns 2. Follow-up with your doctor next week 3. SHAN BLACK APRN Jan 30, 2020 14:32
[2020-01-30 14:34] LABS: BASOPHILS % (AUTO) 0 % (0-10); EOSINOPHILS # (AUTO) 0.1 10^3/uL (0.0-0.3); EOSINOPHILS % (AUTO) 1 % (0-10); HEMATOCRIT 39 % (35-52); HEMOGLOBIN 12.8 G/DL (11.5-16.0); LYMPHOCYTES # (AUTO) 2.1 X 10^3 (1.0-4.0); LYMPHOCYTES % (AUTO) 29 % (12-44); MEAN CORPUSCULAR HEMOGLOBIN 27 PG (25-34); MEAN CORPUSCULAR HGB CONC 33 G/DL (32-36); MEAN CORPUSCULAR VOLUME 82 FL (80-99); MEAN PLATELET VOLUME 10.9 FL (7.4-10.4); MONOCYTES # (AUTO) 0.6 X 10^3 (0.0-1.0); MONOCYTES % (AUTO) 8 % (0-12); NEUTROPHILS # (AUTO) 4.5 X 10^3 (1.8-7.8); NEUTROPHILS % (AUTO) 62 % (42-75); PLATELET COUNT 288 10^3/uL (130-400); RED CELL DISTRIBUTION WIDTH 17.1 % (10.0-14.5); WHITE BLOOD COUNT 7.3 10^3/uL (4.3-11.0)
[2020-01-30 14:50] LABS: PROTHROMBIN TIME PATIENT 13.5 SEC (12.2-14.7)
[2020-01-30 14:54] LABS: BILIRUBIN,URINE NEGATIVE (NEGATIVE); CLARITY,URINE CLEAR; COLOR,URINE YELLOW; GLUCOSE, URINE (UA) 2+ (NEGATIVE); KETONES,URINE 2+ (NEGATIVE); LEUKOCYTE ESTERASE ,URINE NEGATIVE (NEGATIVE); NITRITE,URINE NEGATIVE (NEGATIVE); PH,URINE 5.5 (5-9); PROTEIN,URINE NEGATIVE (NEGATIVE)
[2020-01-30 15:03] LABS: BACTERIA,URINE TRACE /HPF
[2020-01-30 15:12] LABS: ALBUMIN 4.4 GM/DL (3.2-4.5); BILIRUBIN,TOTAL 0.9 MG/DL (0.1-1.0); CALCIUM 9.7 MG/DL (8.5-10.1); CREATININE SERUM 1.29 MG/DL (0.60-1.30); MAGNESIUM 1.7 MG/DL (1.6-2.4); POTASSIUM 3.7 MMOL/L (3.6-5.0)
--- NOTE | 2020-01-30 15:14 | Diagnostic Imaging Report ---
INDICATION: Chest pain. TECHNIQUE: Single view chest 2:58 PM. CORRELATION STUDY: 03/01/2019 FINDINGS: The heart size, mediastinal configuration and pulmonary vascularity are within normal limits. The lungs are clear with no consolidating infiltrate. There is no significant effusion or pneumothorax. Relatively unchanged mildly elevated right diaphragm. IMPRESSION: 1. Negative for acute abnormality of the chest. Dictated by: Dictated on workstation # [id number]
[2020-01-30 15:46] LABS: AMPHETAMINE SCREEN, URINE NEGATIVE (NEGATIVE); BARBITURATE SCREEN URINE POSITIVE (NEGATIVE); BENZODIAZEPINES SCREEN URINE NEGATIVE (NEGATIVE); CANNABINOID SCREEN, URINE NEGATIVE (NEGATIVE); COCAINE SCREEN URINE NEGATIVE (NEGATIVE); METHADONE STAT NEGATIVE (NEGATIVE); METHAMPHETAMINE SCREEN URINE S NEGATIVE (NEGATIVE); OPIATE SCREEN URINE NEGATIVE (NEGATIVE); OXYCODONE STAT NEGATIVE (NEGATIVE); PROPOXYPHENE STAT NEGATIVE (NEGATIVE); TRICYCLIC ANTIDEPRESSANTS SCRE POSITIVE (NEGATIVE)
[2020-01-30 17:55] VITALS: BP 127/80
== END 2020-01-30 17:59 | disposition home or self-care (01) ==
LOC: EDUNIT# 14:19 → ER 14:22
DX: R11.2 Nausea with vomiting, unspecified (principal); M25.512 Pain in left shoulder; K21.9 Gastro-esophageal reflux disease without esophagitis; N19 Unspecified kidney failure; F32.9 Major depressive disorder, single episode, unspecified; I10 Essential (primary) hypertension; E11.9 Type 2 diabetes mellitus without complications; F41.9 Anxiety disorder, unspecified; Z79.4 Long term (current) use of insulin; Z88.8 Allergy status to other drugs, medicaments and biological substances; Z95.9 Presence of cardiac and vascular implant and graft, unspecified
CPT/HCPCS: 36415; 71045; 80053; 80306; 81000; 83690; 83735; 83874; 83880; 84484; 85025; 85610; 85730; 93005; 93041

== ENCOUNTER 2020-03-11 01:32 | Emergency (ER) | payer MEDICAID ==
[~2020-03-11] VITALS: Ht 162 cm; Wt 127.2 kg
[~2020-03-11 01:32] MED LIST changes: -PANT40TA3 PO; +PANT40TA52 PO
[2020-03-11] MEDS ORDERED: LACTATED RINGERS 1,000 ML IV STA (01:38)
[2020-03-11] MEDS ORDERED: ONDANSETRON 4 MG/2 ML (SDV) Z0FRAN IVP ONE (01:45)
[2020-03-11] MEDS ORDERED: LIDOCAINE 2% VISCOUS 15 ML UDC PO ONE (01:45)
[2020-03-11] MEDS ORDERED: ANTACID SUSP 30 ML UDC (MYLANTA) PO ONE (01:45)
[2020-03-11] MEDS ORDERED: PANTOPRAZOLE 40 MG (PROTONIX) VIAL IV ONE (01:45)
--- NOTE | 2020-03-11 01:56 | ED Abdominal Pain ---
General Stated Complaint: HERNIA PAIN Source of Information: Patient Exam Limitations: No Limitations History of Present Illness Date Seen by Provider: Mar 11, 2020 Time Seen by Provider: 01:32 Initial Comments Patient resents ER by EMS from home with chief complaint that sometime this night in the last couple hours started experience a balling up feeling of pain in her epigastric region. She's having some nausea and I unable to keep any of her medicines down. She tried to take Pepcid. She does not have anything for nausea. She has a history of hiatal hernia. A year ago she had a scope done and she also had ultrasound of her gallbladder in the last year or 2 and was told was normal. She does not know she has gallstones. No abdominal surgeries. She has diabetes but no history of pancreatitis. Had a bowel movement yesterday evening which was normal. Allergies and Home Medications Allergies Coded Allergies: lisinopril (Verified Allergy, Mild, COUGH, 03/05/17) montelukast (Verified Allergy, Unknown, UNABLE TO REMEMBER REACTION, 12/13/19) Uncoded Allergies: METALS (Allergy, Unknown, 07/12/14) Home Medications Acetaminophen 325 Mg Tablet, 650 MG PO Q6H PRN for PAIN-MILD, (Reported) Butalb/Acetaminophen/Caffeine 1 Each Tablet, 1 EA PO QID PRN for MIGRAINE, (Reported) Canagliflozin 300 Mg Tablet, 300 MG PO DAILY, (Reported) Docusate Sodium 100 Mg Capsule, 100 MG PO DAILY PRN for CONSTIPATION-1ST LINE, (Reported) Duloxetine HCl 60 Mg Capsule.dr, 60 MG PO DAILY, (Reported) TAKES 30MG +60MG DAILY TO EQUAL 90MG Duloxetine HCl 30 Mg Capsule.dr, 30 MG PO DAILY, (Reported) TAKES 30MG +60MG DAILY TO EQUAL 90MG Gabapentin 600 Mg Tablet, 600 MG PO TID, (Reported) Insulin Detemir 100 Unit/1 Ml Insuln.pen, 15 UNIT SQ HS, (Reported) Ondansetron 4 Mg Tab.rapdis, 4 MG PO Q6H PRN for NAUSEA/VOMITING Prescribed by: LUÍS RITCHIE on 11/21/19 1250 Pantoprazole Sodium 40 Mg Tablet.dr, 40 MG PO DAILY, (Reported) Pioglitazone HCl 45 Mg Tablet, 45 MG PO DAILY, (Reported) Propranolol HCl 60 Mg Tablet, 60 MG PO BID, (Reported) Quetiapine Fumarate 200 Mg Tablet, 200 MG PO HS, (Reported) Spironolactone 25 Mg Tablet, 25 MG PO DAILY, (Reported) Patient Home Medication List Home Medication List Reviewed: Yes Review of Systems Review of Systems Constitutional: No chills, No diaphoresis EENTM: No Blurred Vision, No Double Vision Respiratory: Denies Cough, Denies Shortness of Air Cardiovascular: Denies Chest Pain, Denies Lightheadedness Gastrointestinal: Abdominal Pain; Denies Constipated, Denies Diarrhea; Nausea Genitourinary: Denies Burning, Denies Discharge Musculoskeletal: No back pain, No joint pain Skin: No pruritus, No rash Psychiatric/Neurological: Denies Anxiety, Denies Depressed, Denies Headache All Other Systems Reviewed Negative Unless Noted: Yes Past Lzhaeuj-Herycy-Ztrgbx Hx Patient Social History Alcohol Use: Denies Use Recreational Drug Use: No Smoking Status: Never a Smoker Type Used: Electronic/Vapor 2nd Hand Smoke Exposure: No Recent Hopitalizations: Yes (11/2019-ABDOMINAL PAIN) Immunizations Up To Date Tetanus Booster (TDap): More than 5yrs Seasonal Allergies Seasonal Allergies: No Past Medical History Surgeries: Yes (D&C; RIGHT KNEE SCOPE X 2; EGD; CARDIAC CATH 2012--NO INTERVENTION) Cardiac, Eye Surgery, Orthopedic Respiratory: Yes Asthma Currently Using CPAP: No Currently Using BIPAP: No Cardiac: Yes (CARDIAC CATH 2012--NORMAL CORONARIES, NO INTERVENTION) High Cholesterol, Hypertension Neurological: Yes Headaches /Migraines 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 Disorders: No Female 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 Disorders: 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 CVA, Seizures Physical Exam Vital Signs Vital Signs - First Documented 03/11/20 01:45 Temp 36.8 Pulse 78 Resp 20 B/P (MAP) 150/92 (111) Pulse Ox 96 O2 Delivery Room Air Capillary Refill : Height/Weight/BMI Height: 5'3.00" Weight: 240lbs. 2.0oz. [id number]; 43.00 BMI Method:Stated General Appearance: WD/WN, no apparent distress HEENT: PERRL/EOMI, pharynx normal Neck: full range of motion, supple, normal inspection Respiratory: lungs clear, normal breath sounds, no respiratory distress, no accessory muscle use Cardiovascular: normal peripheral pulses, regular rate, rhythm Peripheral Pulses: 2+ Radial Pulses (R), 2+ Radial Pulses (L) Gastrointestinal: guarding, tenderness (midepigastric and right upper quadrant), other (Smith sign mildly positive. Negative for McBurney's point Rovsing sign and psoas sign or other mesenteric signs.) Extremities: normal inspection, normal capillary refill Neurologic/Psychiatric: alert, normal mood/affect, oriented x 3 Skin: normal color, warm/dry Progress/Results/Core Measures Results/Orders Lab Results Laboratory Tests Test 03/11/20 01:49 Range/Units White Blood Count 8.5 4.3-11.0 10^3/uL Red Blood Count 4.46 3.80-5.11 10^6/uL Hemoglobin 12.1 11.5-16.0 g/dL Hematocrit 38 35-52 % Mean Corpuscular Volume 84 80-99 fL Mean Corpuscular Hemoglobin 27 25-34 pg Mean Corpuscular Hemoglobin Concent 32 32-36 g/dL Red Cell Distribution Width 16.4 H 10.0-14.5 % Platelet Count 235 130-400 10^3/uL Mean Platelet Volume 11.2 9.0-12.2 fL Immature Granulocyte % (Auto) 0 % Neutrophils (%) (Auto) 61 42-75 % Lymphocytes (%) (Auto) 28 12-44 % Monocytes (%) (Auto) 9 0-12 % Eosinophils (%) (Auto) 1 0-10 % Basophils (%) (Auto) 1 0-10 % Neutrophils # (Auto) 5.2 1.8-7.8 10^3/uL Lymphocytes # (Auto) 2.4 1.0-4.0 10^3/uL Monocytes # (Auto) 0.8 0.0-1.0 10^3/uL Eosinophils # (Auto) 0.1 0.0-0.3 10^3/uL Basophils # (Auto) 0.1 0.0-0.1 10^3/uL Immature Granulocyte # (Auto) 0.0 0.0-0.1 10^3/uL Sodium Level 142 135-145 MMOL/L Potassium Level 3.3 L 3.6-5.0 MMOL/L Chloride Level 108 H 98-107 MMOL/L Carbon Dioxide Level 18 L 21-32 MMOL/L Anion Gap 16 H 5-14 MMOL/L Blood Urea Nitrogen 17 7-18 MG/DL Creatinine 1.30 0.60-1.30 MG/DL Estimat Glomerular Filtration Rate 43 BUN/Creatinine Ratio 13 Glucose Level 142 H 70-105 MG/DL Calcium Level 9.7 8.5-10.1 MG/DL Corrected Calcium 9.4 8.5-10.1 MG/DL Total Bilirubin 0.8 0.1-1.0 MG/DL Aspartate Amino Transf (AST/SGOT) 15 5-34 U/L Alanine Aminotransferase (ALT/SGPT) 13 0-55 U/L Alkaline Phosphatase 40 40-136 U/L C-Reactive Protein High Sensitivity 0.65 H 0.00-0.50 MG/DL Total Protein 7.8 6.4-8.2 GM/DL Albumin 4.4 3.2-4.5 GM/DL Lipase 20 8-78 U/L My Orders Orders - LUÍS RITCHIE Ondansetron Injection (Zofran Injectio (03/11/20 01:45) Cbc With Automated Diff (03/11/20 01:38) Comprehensive Metabolic Panel (03/11/20 01:38) Hs C Reactive Protein (03/11/20 01:38) Lipase (03/11/20 01:38) Lidocaine 2% Viscous 15 Ml (Xylocaine Vi (03/11/20 01:45) Antacid Suspension (Mylanta Suspension (03/11/20 01:45) Lactated Ringers (Lr 1000 Ml Iv Solution (03/11/20 01:38) Ed Iv/Invasive Line Start (03/11/20 01:38) Pantoprazole Injection (Protonix Injecti (03/11/20 01:45) Ct Abdomen/Pelvis W (03/11/20 01:49) Medications Given in ED Current Medications Medications Dose Ordered Sig/Kate Route Start Time Stop Time Status Last Admin Dose Admin Al Hydrox/Mg Hydrox/Simethicone 30 ml ONCE ONCE PO 03/11/20 01:45 03/11/20 01:46 DC 03/11/20 02:37 30 ML Lidocaine HCl 15 ml ONCE ONCE PO 03/11/20 01:45 03/11/20 01:46 DC 03/11/20 02:37 15 ML Ondansetron HCl 8 mg ONCE ONCE IVP 03/11/20 01:45 03/11/20 01:46 DC 03/11/20 02:37 8 MG Pantoprazole 40 mg ONCE ONCE IV 03/11/20 01:45 03/11/20 01:46 DC 03/11/20 02:37 40 MG Vital Signs/I&O 03/11/20 01:45 Temp 36.8 Pulse 78 Resp 20 B/P (MAP) 150/92 (111) Pulse Ox 96 O2 Delivery Room Air Progress Progress Note : Time: 01:56 Progress Note Give her a GI cocktail pantoprazole. She started taking Pepcid. Give her some Zofran and a liter fluids and get a CT of the abdomen pelvis looking for gallbladder. Lipase to examine the pancreas. Departure Impression Primary Impression: RUQ abdominal pain Disposition: HOME, SELF-CARE Condition: Stable Departure-Patient Inst. Decision time for Depature: 02:42 Referrals: [facility] (PCP) Primary Care Physician ARISTEO ARAYA (Family) Primary Care Physician Patient Instructions: Abdominal Ultrasound, Nausea and Vomiting, Adult (DC) Add. Discharge Instructions: Ondansetron one tablet every 6 hours as necessary for nausea. Phenergan 1 tablet every 6 hours as necessary for nausea. Tylenol 1000 mg every 8 hours as necessary for pain. Ibuprofen 800 mg every 8 hours as necessary for pain. Tums, Maalox, Mylanta etc. as necessary for epigastric pain. Return to the ER for severe, intractable symptoms. Thursday morning call outpatient services on the order form and set up an appointment to get her ultrasound done. Follow-up with your primary care doctor for results. Scripts Promethazine HCl (Promethazine Tablet) 25 Mg Tablet 25 MG PO Q6H PRN for NAUSEA/VOMITING, #15 TAB 0 Refills Prov: LUÍS RITCHIE 03/11/20 Ondansetron (Ondansetron Odt) 4 Mg Tab.rapdis 4 MG PO Q6H PRN for NAUSEA/VOMITING, #8 TAB 0 Refills Prov: LUÍS RITCHIE 03/11/20 LUÍS RITCHIE Mar 11, 2020 01:56
[2020-03-11 02:03] LABS: BASOPHILS # (AUTO) 0.1 10^3/uL (0.0-0.1); BASOPHILS % (AUTO) 1 % (0-10); EOSINOPHILS # (AUTO) 0.1 10^3/uL (0.0-0.3); EOSINOPHILS % (AUTO) 1 % (0-10); HEMATOCRIT 38 % (35-52); HEMOGLOBIN 12.1 g/dL (11.5-16.0); LYMPHOCYTES # (AUTO) 2.4 10^3/uL (1.0-4.0); LYMPHOCYTES % (AUTO) 28 % (12-44); MEAN CORPUSCULAR HEMOGLOBIN 27 pg (25-34); MEAN CORPUSCULAR HGB CONC 32 g/dL (32-36); MEAN CORPUSCULAR VOLUME 84 fL (80-99); MEAN PLATELET VOLUME 11.2 fL (9.0-12.2); MONOCYTES # (AUTO) 0.8 10^3/uL (0.0-1.0); MONOCYTES % (AUTO) 9 % (0-12); NEUTROPHILS # (AUTO) 5.2 10^3/uL (1.8-7.8); NEUTROPHILS % (AUTO) 61 % (42-75); PLATELET COUNT 235 10^3/uL (130-400); WHITE BLOOD COUNT 8.5 10^3/uL (4.3-11.0)
[2020-03-11 02:08] LABS: ALBUMIN 4.4 GM/DL (3.2-4.5); POTASSIUM 3.3 MMOL/L (3.6-5.0)
[2020-03-11 02:09] LABS: CALCIUM 9.7 MG/DL (8.5-10.1)
[2020-03-11 02:11] LABS: TOTAL PROTEIN 7.8 GM/DL (6.4-8.2)
[2020-03-11 02:12] LABS: BILIRUBIN,TOTAL 0.8 MG/DL (0.1-1.0)
[2020-03-11 02:14] LABS: CREATININE SERUM 1.3 MG/DL (0.60-1.30)
--- NOTE | 2020-03-11 02:37 | NUR ---
GAVE ATTEMPTED TO GIVE ORAL GI MEDICATIONS, TOOK ONE GULP OF IT AND REFUSED THE REST. STATED "IT IS GOING TO MAKE ME PUKE. I HAVE DONE TOO MUCH OF THAT TONIGHT." PATIENT ALSO STATED " I HOPE I GET ADMITTED BECAUSE I HAVE NO ONE TO TAKE CARE OF ME."
[2020-03-11] MEDS ORDERED: ONDA4TAB11 PO (02:45)
[2020-03-11] MEDS ORDERED: PROM25TA14 PO (02:45)
[2020-03-11] MEDS ORDERED: RX-ONDANSETRON 4 MG ODT (ZOFRAN) PPK #4 PO STA (02:49)
[2020-03-11 03:28] VITALS: BP 161/88
== END 2020-03-11 03:28 | disposition home or self-care (01) ==
LOC: EDUNIT# 01:32 → ER 01:35
DX: R10.11 Right upper quadrant pain (principal); E11.9 Type 2 diabetes mellitus without complications; I10 Essential (primary) hypertension; F41.9 Anxiety disorder, unspecified; F32.9 Major depressive disorder, single episode, unspecified; K21.9 Gastro-esophageal reflux disease without esophagitis; Z95.9 Presence of cardiac and vascular implant and graft, unspecified; Z79.4 Long term (current) use of insulin; Z88.8 Allergy status to other drugs, medicaments and biological substances
CPT/HCPCS: 36415; 80053; 83690; 85025; 86141

== ENCOUNTER 2020-03-11 06:23 | Emergency (ER) | payer MEDICAID ==
[~2020-03-11] VITALS: Ht 162 cm; Wt 122.0 kg
[~2020-03-11 06:23] MED LIST changes: +PROM25TA14 PO
[2020-03-11] MEDS ORDERED: fentaNYL INJECTION 100 MCG/2 ML AMP IVP STA (06:34)
[2020-03-11] MEDS ORDERED: LACTATED RINGERS 1,000 ML IV ONE (06:34)
[2020-03-11] MEDS ORDERED: KETOROLAC 30 MG/ML VIAL IVP STA (06:34)
[2020-03-11 06:40] LABS: BASOPHILS % (AUTO) 1 % (0-10); EOSINOPHILS # (AUTO) 0.1 10^3/uL (0.0-0.3); EOSINOPHILS % (AUTO) 1 % (0-10); HEMATOCRIT 34 % (35-52); HEMOGLOBIN 10.8 g/dL (11.5-16.0); LYMPHOCYTES # (AUTO) 1.8 10^3/uL (1.0-4.0); LYMPHOCYTES % (AUTO) 24 % (12-44); MEAN CORPUSCULAR HEMOGLOBIN 27 pg (25-34); MEAN CORPUSCULAR HGB CONC 32 g/dL (32-36); MEAN CORPUSCULAR VOLUME 85 fL (80-99); MEAN PLATELET VOLUME 11.8 fL (9.0-12.2); MONOCYTES # (AUTO) 0.6 10^3/uL (0.0-1.0); MONOCYTES % (AUTO) 8 % (0-12); NEUTROPHILS # (AUTO) 4.8 10^3/uL (1.8-7.8); NEUTROPHILS % (AUTO) 66 % (42-75); PLATELET COUNT 220 10^3/uL (130-400); WHITE BLOOD COUNT 7.3 10^3/uL (4.3-11.0)
[2020-03-11] MEDS ORDERED: FAMOTIDINE 20MG/2ML IV (PEPCID) IV STA (06:41)
[2020-03-11] MEDS ORDERED: ONDANSETRON 4 MG/2 ML (SDV) Z0FRAN IVP ONE (06:45)
[2020-03-11 06:52] LABS: ALBUMIN 3.9 GM/DL (3.2-4.5); POTASSIUM 3.1 MMOL/L (3.6-5.0)
[2020-03-11 06:53] LABS: CALCIUM 8.2 MG/DL (8.5-10.1)
[2020-03-11 06:55] LABS: TOTAL PROTEIN 6.8 GM/DL (6.4-8.2)
[2020-03-11 06:56] LABS: BILIRUBIN,TOTAL 0.8 MG/DL (0.1-1.0)
[2020-03-11 06:58] LABS: CREATININE SERUM 1.06 MG/DL (0.60-1.30)
--- NOTE | 2020-03-11 07:17 | ED Abdominal Pain ---
General Chief Complaint: Abdominal/GI Problems Stated Complaint: HERNIA PAIN Nursing Triage Note: LEFT ED EARLIER WITH NO PAIN/N/V. CAME BACK WITH INCREASE VOMITTING. REPORTS NEEDS TO BE ADMITTED SO SHE CAN HAVE HER MEDICATIONS. REPORTS NOW THAT SYMPTOMS HAS STARTED 7 DAYS AGO AND NOT 3 DAYS AGO. Sepsis Screen: Possible Severe Sepsis Risk Source of Information: Patient, RN/MD Exam Limitations: No Limitations History of Present Illness Date Seen by Provider: Mar 11, 2020 Time Seen by Provider: 06:30 Initial Comments Here with report of persistent upper abdominal pain as well as nausea and vomiting. Seen a few hours ago here and was released after she was doing better and had negative labs. Apparently at that time she was asking for admission and reported having difficulties at home. She states that she is unable to keep anything down. She did receive prescriptions on leaving but states that she's Dr. Fontanez get those until tomorrow because her pharmacy is closed until then. She did not call back for change in location or asked for other alternatives. States the pain is epigastric and left upper. She reports that she is only been able to drink a few sips of Sprite in the last 8 hours and is vomiting everything that she drinks. Reports being shaky and dizzy. Timing/Duration: 3-4 Days, Getting Worse Severity/Quality: Moderate, Severe, Aching Location: LUQ, Epigastric Radiation: No Radiation Activities at Onset: None Modifying Factors: Worsens With Eating Associated Symptoms: No Back Pain, No Chest Pain, No Fever/Chills; Heartburn, Nausea/Vomiting; No Shortness of Air, No Weakness Allergies and Home Medications Allergies Coded Allergies: lisinopril (Verified Allergy, Mild, COUGH, 03/05/17) montelukast (Verified Allergy, Unknown, UNABLE TO REMEMBER REACTION, 12/13/19) Uncoded Allergies: METALS (Allergy, Unknown, 07/12/14) Home Medications Acetaminophen 325 Mg Tablet, 650 MG PO Q6H PRN for PAIN-MILD, (Reported) Butalb/Acetaminophen/Caffeine 1 Each Tablet, 1 EA PO QID PRN for MIGRAINE, (Reported) Canagliflozin 300 Mg Tablet, 300 MG PO DAILY, (Reported) Docusate Sodium 100 Mg Capsule, 100 MG PO DAILY PRN for CONSTIPATION-1ST LINE, (Reported) Duloxetine HCl 60 Mg Capsule.dr, 60 MG PO DAILY, (Reported) TAKES 30MG +60MG DAILY TO EQUAL 90MG Duloxetine HCl 30 Mg Capsule.dr, 30 MG PO DAILY, (Reported) TAKES 30MG +60MG DAILY TO EQUAL 90MG Gabapentin 600 Mg Tablet, 600 MG PO TID, (Reported) Insulin Detemir 100 Unit/1 Ml Insuln.pen, 15 UNIT SQ HS, (Reported) Ondansetron 4 Mg Tab.rapdis, 4 MG PO Q6H PRN for NAUSEA/VOMITING Prescribed by: LUÍS RITCHIE on 11/21/19 1250 Ondansetron 4 Mg Tab.rapdis, 4 MG PO Q6H PRN for NAUSEA/VOMITING Prescribed by: LUÍS RITCHIE on 03/11/20 0245 Pantoprazole Sodium 40 Mg Tablet.dr, 40 MG PO DAILY, (Reported) Pioglitazone HCl 45 Mg Tablet, 45 MG PO DAILY, (Reported) Promethazine HCl 25 Mg Tablet, 25 MG PO Q6H PRN for NAUSEA/VOMITING Prescribed by: LUÍS RITCHIE on 03/11/20 0245 Propranolol HCl 60 Mg Tablet, 60 MG PO BID, (Reported) Quetiapine Fumarate 200 Mg Tablet, 200 MG PO HS, (Reported) Spironolactone 25 Mg Tablet, 25 MG PO DAILY, (Reported) Patient Home Medication List Home Medication List Reviewed: Yes Review of Systems Review of Systems Constitutional: see HPI; No chills, No fever EENTM: No Symptoms Reported Respiratory: No Symptoms Reported Cardiovascular: No Symptoms Reported Gastrointestinal: Abdominal Pain, Nausea, Vomiting Genitourinary: No Symptoms Reported Musculoskeletal: No back pain, No neck pain Skin: no symptoms reported All Other Systems Reviewed Negative Unless Noted: Yes Past Nbiqnyw-Ujfcso-Jgibnc Hx Past Med/Social Hx: Reviewed Nursing Past Med/Soc Hx Patient Social History Alcohol Use: Denies Use Recreational Drug Use: No Type Used: Electronic/Vapor 2nd Hand Smoke Exposure: No Recent Foreign Travel: No Contact w/Someone Who Travel: No Recent Infectious Disease Expo: No Recent Hopitalizations: Yes (11/2019-ABDOMINAL PAIN) Physical Abuse: No Sexual Abuse: No Mistreated: No Fear: No Immunizations Up To Date Tetanus Booster (TDap): More than 5yrs Seasonal Allergies Seasonal Allergies: No Past Medical History Surgeries: Yes (D&C; RIGHT KNEE SCOPE X 2; EGD; CARDIAC CATH 2012--NO INTERVENTION) Cardiac, Eye Surgery, Orthopedic Respiratory: Yes Asthma Currently Using CPAP: No Currently Using BIPAP: No Cardiac: Yes (CARDIAC CATH 2013--NORMAL CORONARIES, NO INTERVENTION) High Cholesterol, Hypertension Neurological: Yes Headaches /Migraines : No 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 Disorders: No Female 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 Sexually Transmitted Disease: No Genitourinary: Yes Bladder Infection, Kidney Stones, Renal Failure Gastrointestinal: Yes Gastroesophageal Reflux, Hiatal Hernia, Irritable Bowel Musculoskeletal: Yes Fibromyalgia Endocrine: Yes (NON COMPLAINT) Diabetes, Non-Insulin dep HEENT: Yes (EYE SURGERY) Loss of Vision: Denies Hearing Impairment: Denies Cancer: No Psychosocial: Yes (EXTENSIVE PSYCH ISSUES) ADD/ADHD, Anxiety, PTSD, Depression Integumentary: No Blood Disorders: No Adverse Reaction/Blood Tranf: No Family Medical History Reviewed Nursing Family Hx Hypertension 19 FATHER CVA, Seizures Physical Exam Vital Signs Vital Signs - First Documented 03/11/20 06:50 Temp 35.8 Pulse 86 Resp 22 B/P (MAP) 150/96 (114) Pulse Ox 98 O2 Delivery Room Air Capillary Refill : Less Than 3 Seconds Height/Weight/BMI Height: 5'3.00" Weight: 240lbs. 2.0oz. 108.784016xm; 46.00 BMI Method:Stated General Appearance: WD/WN, no apparent distress HEENT: PERRL/EOMI, pharynx normal Neck: full range of motion, supple Respiratory: lungs clear, normal breath sounds Cardiovascular: regular rate, rhythm, no murmur Gastrointestinal: soft, tenderness (epigastric) Extremities: non-tender, normal inspection Back: normal inspection, no CVA tenderness, no vertebral tenderness Neurologic/Psychiatric: alert, oriented x 3 Skin: normal color, warm/dry Progress/Results/Core Measures Results/Orders Lab Results Laboratory Tests Test 03/11/20 06:33 03/11/20 08:00 Range/Units White Blood Count 7.3 4.3-11.0 10^3/uL Red Blood Count 3.94 3.80-5.11 10^6/uL Hemoglobin 10.8 L 11.5-16.0 g/dL Hematocrit 34 L 35-52 % Mean Corpuscular Volume 85 80-99 fL Mean Corpuscular Hemoglobin 27 25-34 pg Mean Corpuscular Hemoglobin Concent 32 32-36 g/dL Red Cell Distribution Width 16.5 H 10.0-14.5 % Platelet Count 220 130-400 10^3/uL Mean Platelet Volume 11.8 9.0-12.2 fL Immature Granulocyte % (Auto) 0 % Neutrophils (%) (Auto) 66 42-75 % Lymphocytes (%) (Auto) 24 12-44 % Monocytes (%) (Auto) 8 0-12 % Eosinophils (%) (Auto) 1 0-10 % Basophils (%) (Auto) 1 0-10 % Neutrophils # (Auto) 4.8 1.8-7.8 10^3/uL Lymphocytes # (Auto) 1.8 1.0-4.0 10^3/uL Monocytes # (Auto) 0.6 0.0-1.0 10^3/uL Eosinophils # (Auto) 0.1 0.0-0.3 10^3/uL Basophils # (Auto) 0.0 0.0-0.1 10^3/uL Immature Granulocyte # (Auto) 0.0 0.0-0.1 10^3/uL Sodium Level 143 135-145 MMOL/L Potassium Level 3.1 L 3.6-5.0 MMOL/L Chloride Level 113 H 98-107 MMOL/L Carbon Dioxide Level 16 L 21-32 MMOL/L Anion Gap 14 5-14 MMOL/L Blood Urea Nitrogen 15 7-18 MG/DL Creatinine 1.06 0.60-1.30 MG/DL Estimat Glomerular Filtration Rate 55 BUN/Creatinine Ratio 14 Glucose Level 137 H 70-105 MG/DL Calcium Level 8.2 L 8.5-10.1 MG/DL Corrected Calcium 8.3 L 8.5-10.1 MG/DL Total Bilirubin 0.8 0.1-1.0 MG/DL Aspartate Amino Transf (AST/SGOT) 13 5-34 U/L Alanine Aminotransferase (ALT/SGPT) 11 0-55 U/L Alkaline Phosphatase 37 L 40-136 U/L C-Reactive Protein High Sensitivity 0.64 H 0.00-0.50 MG/DL Total Protein 6.8 6.4-8.2 GM/DL Albumin 3.9 3.2-4.5 GM/DL Lipase 17 8-78 U/L Urine Color ORANGE Urine Clarity CLEAR Urine pH 5.0 5-9 Urine Specific Bagley 1.025 H 1.016-1.022 Urine Protein 1+ H NEGATIVE Urine Glucose (UA) 2+ H NEGATIVE Urine Ketones 2+ H NEGATIVE Urine Nitrite NEGATIVE NEGATIVE Urine Bilirubin 1+ H NEGATIVE Urine Urobilinogen 1.0 < = 1.0 MG/DL Urine Leukocyte Esterase NEGATIVE NEGATIVE Urine RBC (Auto) TRACE-L NEGATIVE Urine RBC RARE /HPF Urine WBC 0-2 /HPF Urine Squamous Epithelial Cells 5-10 /HPF Urine Crystals PRESENT H /LPF Urine Amorphous Sediment FEW CRISTIN URATES H /LPF Urine Bacteria TRACE /HPF Urine Casts NONE /LPF Urine Mucus NEGATIVE /LPF Urine Culture Indicated NO My Orders Orders - MIHIR BLANCHARD MD Ct Abdomen/Pelvis W (03/11/20 06:34) Fentanyl Injection (Sublimaze Injection (03/11/20 06:34) Ketorolac Injection (Toradol Injection) (03/11/20 06:34) Cbc With Automated Diff (03/11/20 06:34) Comprehensive Metabolic Panel (03/11/20 06:34) Hs C Reactive Protein (03/11/20 06:34) Ed Iv/Invasive Line Start (03/11/20 06:34) Lactated Ringers (Lr 1000 Ml Iv Solution (03/11/20 06:34) Lipase (03/11/20 06:37) Ondansetron Injection (Zofran Injectio (03/11/20 06:45) Famotidine Injection (Pepcid Injection) (03/11/20 06:41) Catheter(Urinary) Insert & Ass 03,15 (03/11/20 06:44) Iohexol Injection (Omnipaque 350 Mg/Ml 1 (03/11/20 08:15) Ns (Ivpb) (Sodium Chloride 0.9% Ivpb Bag (03/11/20 08:15) Ua Culture If Indicated (03/11/20 08:12) Rx-Ondansetron Po (Rx-Zofran Po) (03/11/20 10:24) Medications Given in ED Vital Signs/I&O 03/11/20 03/11/20 06:50 11:20 Temp 35.8 35.8 Pulse 86 72 Resp 22 18 B/P (MAP) 150/96 (114) 146/91 (114) Pulse Ox 98 98 O2 Delivery Room Air Room Air Blood Pressure Mean: 114 Progress Progress Note : Progress Note Seen and evaluated. IV, labs, LR 1 L bolus, Zofran 4 mg IV, Pepcid 20 mg IV and Toradol [address] abdomen pelvis ordered due to repeat visit and persistent pain. Monitor patient. 1026: CT complete and shows no acute findings. Patient overall doing better. She has a ride home. Due to concerns about being able to get her meds, we will go ahead and Diagnostic Imaging Diagonstic Imaging: CT Plain Films/CT/US/NM/MRI: abdomen, pelvis Comments [facility] [place] NAME: NAE PRICE [facility] REC#: [id number] PT STATUS: REG ER : 1970 PHYSICIAN: MIHIR BLANCHARD MD ADMIT DATE: 03/11/20/ER Signed Date of Exam:03/11/20 CT ABDOMEN/PELVIS W PROCEDURE: CT abdomen and pelvis with contrast. TECHNIQUE: Multiple contiguous axial images were obtained through the abdomen and pelvis after administration of intravenous contrast. Auto Exposure Controls were utilized during the CT exam to meet ALARA standards for radiation dose reduction. All CT scans use one or more of the following dose optimizing techniques: automated exposure control, MA and/or KvP adjustment based on patient size and exam type or iterative reconstruction. INDICATION: Intractable upper abdominal pain EXAMINATION: CT abdomen pelvis with contrast 03/11/2020 COMPARISON: 11/21/2019 FINDINGS: There is fatty infiltration throughout the liver. Gallbladder distended but otherwise normal with no surrounding inflammation appreciated. The spleen is normal. Adrenal glands and pancreas unremarkable. Kidneys somewhat atrophied with irregularity along the periphery of the kidney stable from previous imaging perhaps due to chronic infectious etiology. Very tiny hiatal hernia is noted. There is no ascites or free air in the abdomen nor pelvis. Mild diverticular disease is noted without evidence for acute diverticulitis. Osseous structures demonstrate diffuse chronic findings. The lung bases unremarkable for acute abnormality. IMPRESSION: 1. Incidental findings throughout the abdomen and pelvis as above with no acute abnormality appreciated. 2. Not mentioned in the body of the report is a small nodule in the peripheral right lower lobe stable from recent imaging however depending on patient's risk factors continued follow-up may be warranted. Dictated by: Dictated on workstation # [id number] Dict: 03/11/20855 Trans: 03/11/20904 [facility] [id number] Interpreted by: MILY ELLIS MD Electronically signed by: MILY ELLIS MD 03/11/20904 Reviewed: Reviewed by Me Departure Impression Primary Impression: Nausea and vomiting Qualified Codes: R11.2 - Nausea with vomiting, unspecified Disposition: HOME, SELF-CARE Condition: Improved Departure-Patient Inst. Decision time for Depature: 11:20 Referrals: [facility] [place] (PCP) Primary Care Physician ARISTEO ARAYA (Family) Primary Care Physician Patient Instructions: Nausea and Vomiting, Adult (DC) Add. Discharge Instructions: Discharge instructions per departure note All discharge instructions reviewed with patient and/or family. Voiced understanding. MIHIR BLANCHARD MD Mar 11, 2020 07:17
[2020-03-11] MEDS ORDERED: NS 100 ML (IVPB) BAG IV ONE (08:15)
[2020-03-11] MEDS ORDERED: IOHEXOL 350 MG/ML 100 ML (OMNIPAQUE 350) VIAL IV ONE (08:15)
[2020-03-11 08:22] LABS: CLARITY,URINE CLEAR; COLOR,URINE ORANGE; GLUCOSE, URINE (UA) 2+ (NEGATIVE); KETONES,URINE 2+ (NEGATIVE); LEUKOCYTE ESTERASE ,URINE NEGATIVE (NEGATIVE); NITRITE,URINE NEGATIVE (NEGATIVE); PROTEIN,URINE 1+ (NEGATIVE)
[2020-03-11 08:31] LABS: AMORPHOUS SEDIMENT,UR FEW AMOR URATES /LPF; BACTERIA,URINE TRACE /HPF; RBC,URINE RARE /HPF; WBC,URINE 0-2 /HPF
--- NOTE | 2020-03-11 09:05 | Diagnostic Imaging Report ---
PROCEDURE: CT abdomen and pelvis with contrast. TECHNIQUE: Multiple contiguous axial images were obtained through the abdomen and pelvis after administration of intravenous contrast. Auto Exposure Controls were utilized during the CT exam to meet ALARA standards for radiation dose reduction. All CT scans use one or more of the following dose optimizing techniques: automated exposure control, MA and/or KvP adjustment based on patient size and exam type or iterative reconstruction. INDICATION: Intractable upper abdominal pain EXAMINATION: CT abdomen pelvis with contrast 03/11/2020 COMPARISON: 11/21/2019 FINDINGS: There is fatty infiltration throughout the liver. Gallbladder distended but otherwise normal with no surrounding inflammation appreciated. The spleen is normal. Adrenal glands and pancreas unremarkable. Kidneys somewhat atrophied with irregularity along the periphery of the kidney stable from previous imaging perhaps due to chronic infectious etiology. Very tiny hiatal hernia is noted. There is no ascites or free air in the abdomen nor pelvis. Mild diverticular disease is noted without evidence for acute diverticulitis. Osseous structures demonstrate diffuse chronic findings. The lung bases unremarkable for acute abnormality. IMPRESSION: 1. Incidental findings throughout the abdomen and pelvis as above with no acute abnormality appreciated. 2. Not mentioned in the body of the report is a small nodule in the peripheral right lower lobe stable from recent imaging however depending on patient's risk factors continued follow-up may be warranted. Dictated by: Dictated on workstation # [id number]
[2020-03-11] MEDS ORDERED: RX-ONDANSETRON 4 MG ODT (ZOFRAN) PPK #4 PO STA (10:24)
[2020-03-11 11:20] VITALS: BP 146/91
[2020-03-12 07:12] LABS: BILIRUBIN,URINE 1+ (NEGATIVE)
== END 2020-03-11 11:20 | disposition home or self-care (01) ==
LOC: EDUNIT# 06:23 → ER 06:24
DX: R11.2 Nausea with vomiting, unspecified (principal); I10 Essential (primary) hypertension; E11.9 Type 2 diabetes mellitus without complications; G43.909 Migraine, unspecified, not intractable, without status migrainosus; K21.9 Gastro-esophageal reflux disease without esophagitis; M79.7 Fibromyalgia; F41.9 Anxiety disorder, unspecified; F32.9 Major depressive disorder, single episode, unspecified; Z88.8 Allergy status to other drugs, medicaments and biological substances; Z95.9 Presence of cardiac and vascular implant and graft, unspecified; Z91.19 Patient's noncompliance with other medical treatment and regimen; Z79.4 Long term (current) use of insulin
CPT/HCPCS: 36415; 74177; 80053; 81000; 83690; 85025; 86141

== ENCOUNTER 2020-08-16 14:12 | Emergency (ER) | payer MEDICAID ==
[~2020-08-16] VITALS: Ht 160 cm; Wt 124.7 kg
[~2020-08-16 14:12] MED LIST changes: +BUTA-235 PO; -BUTA1TAB9 PO
[2020-08-16] MEDS ORDERED: MECLIZINE 25 MG (ANTIVERT) TAB PO ONE (14:30)
[2020-08-16] MEDS ORDERED: PANTOPRAZOLE 40 MG (PROTONIX) VIAL IV ONE (14:30)
[2020-08-16] MEDS ORDERED: ONDANSETRON 4 MG/2 ML (SDV) Z0FRAN IVP ONE (14:30)
[2020-08-16 14:32] LABS: BASOPHILS # (AUTO) 0.1 10^3/uL (0.0-0.1); BASOPHILS % (AUTO) 1 % (0-10); EOSINOPHILS # (AUTO) 0.2 10^3/uL (0.0-0.3); EOSINOPHILS % (AUTO) 3 % (0-10); HEMATOCRIT 40 % (35-52); HEMOGLOBIN 12.5 g/dL (11.5-16.0); LYMPHOCYTES % (AUTO) 33 % (12-44); MEAN CORPUSCULAR HEMOGLOBIN 26 pg (25-34); MEAN CORPUSCULAR HGB CONC 31 g/dL (32-36); MEAN CORPUSCULAR VOLUME 84 fL (80-99); MEAN PLATELET VOLUME 11.7 fL (9.0-12.2); MONOCYTES # (AUTO) 0.3 10^3/uL (0.0-1.0); MONOCYTES % (AUTO) 5 % (0-12); NEUTROPHILS # (AUTO) 3.5 10^3/uL (1.8-7.8); NEUTROPHILS % (AUTO) 57 % (42-75); PLATELET COUNT 262 10^3/uL (130-400); WHITE BLOOD COUNT 6.1 10^3/uL (4.3-11.0)
[2020-08-16] MEDS: NS IV 1000 ML 1,000 ML IV SCH ×2 (14:34→15:33)
--- NOTE | 2020-08-16 14:35 | ED General ---
General Chief Complaint: Abdominal/GI Problems Stated Complaint: N/V History of Present Illness Date Seen by Provider: Aug 16, 2020 Time Seen by Provider: 14:20 Initial Comments 50-year-old female presents via EMS from the [facility] for vertigo and nausea and vomiting. Patient states her symptoms have been present for approximately 2 days. She is becoming so dizzy she is unable to take care of herself. She last vomited at 1130 today. She has had minimal intake. She is a diabetic and has taken her insulin last evening, EMS reports her blood sugar to be in the 120s. Timing/Duration: 1-2 Days Severity: Moderate Modifying Factors: improves with Rest Associated Systoms: No Chest Pain, No Cough, No Diaphoresis, No Fever/Chills, No Headaches; Loss of Appetite, Malaise, Nausea/Vomiting; No Rash, No Seizure, No Shortness of Air, No Syncope, No Weakness; Other (Vertigo) Allergies and Home Medications Allergies Coded Allergies: lisinopril (Verified Allergy, Mild, COUGH, 03/05/17) montelukast (Verified Allergy, Unknown, UNABLE TO REMEMBER REACTION, 12/13/19) Uncoded Allergies: METALS (Allergy, Unknown, 07/12/14) Home Medications Acetaminophen 325 Mg Tablet, 650 MG PO Q6H PRN for PAIN-MILD, (Reported) Butalb/Acetaminophen/Caffeine 1 Each Tablet, 1 EA PO QID PRN for MIGRAINE, (Reported) Canagliflozin 300 Mg Tablet, 300 MG PO DAILY, (Reported) Docusate Sodium 100 Mg Capsule, 100 MG PO DAILY PRN for CONSTIPATION-1ST LINE, (Reported) Duloxetine HCl 60 Mg Capsule.dr, 60 MG PO DAILY, (Reported) TAKES 30MG +60MG DAILY TO EQUAL 90MG Duloxetine HCl 30 Mg Capsule.dr, 30 MG PO DAILY, (Reported) TAKES 30MG +60MG DAILY TO EQUAL 90MG Gabapentin 600 Mg Tablet, 600 MG PO TID, (Reported) Insulin Detemir 100 Unit/1 Ml Insuln.pen, 15 UNIT SQ HS, (Reported) Ondansetron 4 Mg Tab.rapdis, 4 MG PO Q6H PRN for NAUSEA/VOMITING Prescribed by: LUÍS RITCHIE on 11/21/19 1250 Ondansetron 4 Mg Tab.rapdis, 4 MG PO Q6H PRN for NAUSEA/VOMITING Prescribed by: LUÍS RITCHIE on 03/11/20244 Pantoprazole Sodium 40 Mg Tablet.dr, 40 MG PO DAILY, (Reported) Pioglitazone HCl 45 Mg Tablet, 45 MG PO DAILY, (Reported) Promethazine HCl 25 Mg Tablet, 25 MG PO Q6H PRN for NAUSEA/VOMITING Prescribed by: LUÍS RITCHIE on 03/11/20244 Propranolol HCl 60 Mg Tablet, 60 MG PO BID, (Reported) Quetiapine Fumarate 200 Mg Tablet, 200 MG PO HS, (Reported) Spironolactone 25 Mg Tablet, 25 MG PO DAILY, (Reported) Patient Home Medication List Home Medication List Reviewed: Yes Review of Systems Review of Systems Constitutional: no symptoms reported, see HPI Respiratory: no symptoms reported, see HPI Cardiovascular: no symptoms reported, see HPI; No chest pain Gastrointestinal: see HPI; No abdominal pain; nausea, vomiting Genitourinary: no symptoms reported, see HPI Musculoskeletal: no symptoms reported, see HPI All Other Systems Reviewed Negative Unless Noted: Yes Past Jijegit-Pntxzs-Xtznpb Hx Past Med/Social Hx: Reviewed Nursing Past Med/Soc Hx Patient Social History Alcohol Use: Rarely Uses Smoking Status: Never a Smoker Type Used: Electronic/Vapor 2nd Hand Smoke Exposure: No Recent Hopitalizations: Yes (11/2019-ABDOMINAL PAIN) Immunizations Up To Date Tetanus Booster (TDap): More than 5yrs Seasonal Allergies Seasonal Allergies: No Past Medical History Surgeries: Yes (D&C; RIGHT KNEE SCOPE X 2; EGD; CARDIAC CATH 2012--NO INTERVENTION) Cardiac, Eye Surgery, Orthopedic Respiratory: Yes Asthma Currently Using CPAP: No Currently Using BIPAP: No Cardiac: Yes (CARDIAC CATH 2012--NORMAL CORONARIES, NO INTERVENTION) Coronary Artery Disease, High Cholesterol, Hypertension Neurological: Yes Headaches /Migraines 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 Disorders: No Female 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 Disorders: 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 Sexually Transmitted Disease: No Genitourinary: Yes Bladder Infection, Kidney Stones, Renal Failure Gastrointestinal: Yes Gastroesophageal Reflux, Hiatal Hernia, Irritable Bowel Musculoskeletal: Yes Fibromyalgia Endocrine: Yes (NON COMPLAINT) Diabetes, Non-Insulin dep HEENT: Yes (EYE SURGERY) Loss of Vision: Denies Hearing Impairment: Denies Cancer: No Psychosocial: Yes (EXTENSIVE PSYCH ISSUES) ADD/ADHD, Sleep Difficulties, Anxiety, PTSD, Depression Integumentary: No Blood Disorders: No Adverse Reaction/Blood Tranf: No Family Medical History Hypertension 19 FATHER CVA, Seizures Physical Exam Vital Signs Vital Signs - First Documented 08/16/20 14:25 Temp 35.8 Pulse 92 Resp 18 B/P (MAP) 125/111 (116) Pulse Ox 100 Capillary Refill : Height, Weight, BMI Height: 5'3.00" Weight: 240lbs. 2.0oz. 108.783256wr; 46.00 BMI Method:Stated General Appearance: No Apparent Distress, WD/WN, Obese Eyes: Bilateral Eye Normal Inspection, Bilateral Eye PERRL, Bilateral Eye EOMI HEENT: PERRL/EOMI, TMs Normal, Normal ENT Inspection, Pharynx Normal Neck: Full Range of Motion, Normal Inspection, Non Tender, Supple Respiratory: Chest Non Tender, Lungs Clear, Normal Breath Sounds Cardiovascular: Regular Rate, Rhythm, No Murmur, Normal Peripheral Pulses Gastrointestinal: Normal Bowel Sounds, Soft, Distended; No Guarding, No Rebound, No Tenderness Extremity: Normal Capillary Refill, Normal Inspection, Normal Range of Motion, Non Tender, No Calf Tenderness, Pedal Edema Neurologic/Psychiatric: Alert, Oriented x3, No Motor/Sensory Deficits, Normal Mood/Affect Skin: Normal Color, Warm/Dry Progress/Results/Core Measures Suspected Sepsis SIRS Temperature: Pulse: Respiratory Rate: Laboratory Tests 08/16/20 14:19: White Blood Count 6.1 Blood Pressure / Mean: Laboratory Tests 08/16/20 14:19: Creatinine 1.16, Platelet Count 262, Total Bilirubin 0.5 Results/Orders Lab Results Laboratory Tests Test 08/16/20 14:19 Range/Units White Blood Count 6.1 4.3-11.0 10^3/uL Red Blood Count 4.84 3.80-5.11 10^6/uL Hemoglobin 12.5 11.5-16.0 g/dL Hematocrit 40 35-52 % Mean Corpuscular Volume 84 80-99 fL Mean Corpuscular Hemoglobin 26 25-34 pg Mean Corpuscular Hemoglobin Concent 31 L 32-36 g/dL Red Cell Distribution Width 16.7 H 10.0-14.5 % Platelet Count 262 130-400 10^3/uL Mean Platelet Volume 11.7 9.0-12.2 fL Immature Granulocyte % (Auto) 0 % Neutrophils (%) (Auto) 57 42-75 % Lymphocytes (%) (Auto) 33 12-44 % Monocytes (%) (Auto) 5 0-12 % Eosinophils (%) (Auto) 3 0-10 % Basophils (%) (Auto) 1 0-10 % Neutrophils # (Auto) 3.5 1.8-7.8 10^3/uL Lymphocytes # (Auto) 2.0 1.0-4.0 10^3/uL Monocytes # (Auto) 0.3 0.0-1.0 10^3/uL Eosinophils # (Auto) 0.2 0.0-0.3 10^3/uL Basophils # (Auto) 0.1 0.0-0.1 10^3/uL Immature Granulocyte # (Auto) 0.0 0.0-0.1 10^3/uL Sodium Level 139 135-145 MMOL/L Potassium Level 4.8 3.6-5.0 MMOL/L Chloride Level 103 98-107 MMOL/L Carbon Dioxide Level 22 21-32 MMOL/L Anion Gap 14 5-14 MMOL/L Blood Urea Nitrogen 14 7-18 MG/DL Creatinine 1.16 0.60-1.30 MG/DL Estimat Glomerular Filtration Rate 49 BUN/Creatinine Ratio 12 Glucose Level 122 H 70-105 MG/DL Calcium Level 9.6 8.5-10.1 MG/DL Corrected Calcium 9.5 8.5-10.1 MG/DL Total Bilirubin 0.5 0.1-1.0 MG/DL Aspartate Amino Transf (AST/SGOT) 29 5-34 U/L Alanine Aminotransferase (ALT/SGPT) 15 0-55 U/L Alkaline Phosphatase 63 40-136 U/L Total Protein 8.4 H 6.4-8.2 GM/DL Albumin 4.1 3.2-4.5 GM/DL TSH [place] Testing 1.35 0.35-4.94 UIU/ML My Orders Orders - LYNDSEY SOUZA Cbc With Automated Diff (08/16/20 14:26) Comprehensive Metabolic Panel (08/16/20 14:26) Thyroid Analyzer (08/16/20 14:26) Ed Iv/Invasive Line Start (08/16/20 14:26) Ns Iv 1000 Ml (Sodium Chloride 0.9%) (08/16/20 14:30) Meclizine Tablet (Antivert Tablet) (08/16/20 14:30) Ondansetron Injection (Zofran Injectio (08/16/20 14:30) Pantoprazole Tablet (Protonix Tablet) (08/16/20 14:45) Propranolol Tablet (Inderal Tablet) (08/16/20 15:30) Medications Given in ED Current Medications Medications Dose Ordered Sig/Kate Route Start Time Stop Time Status Last Admin Dose Admin Meclizine HCl 25 mg ONCE ONCE PO 08/16/20 14:30 08/16/20 14:31 DC 08/16/20 14:34 25 MG Ondansetron HCl 8 mg ONCE ONCE IVP 08/16/20 14:30 08/16/20 14:31 DC 08/16/20 14:33 8 MG Pantoprazole Sodium 40 mg ONCE ONCE PO 08/16/20 14:45 08/16/20 14:46 DC 08/16/20 15:18 40 MG Vital Signs/I&O 08/16/20 08/16/20 14:25 15:31 Temp 35.8 35.8 Pulse 92 93 Resp 18 18 B/P (MAP) 125/111 (116) 146/103 (116) Pulse Ox 100 100 Capillary Refill : Progress Note : Time: 14:20 Progress Note Patient seen and evaluated, patient is demanding to be admitted to the hospital because she lives alone and the dizziness makes her concerned about falls. Explained she would need to meet admission criteria and we will determine that when her labs are back and after medication. Will give normal saline 1 L per IV, Zofran 8 mg IV, and meclizine 25 mg orally 1500 the patient's IV infiltrated after receiving the Zofran. She is difficult to obtain IV access, she refuses to have another attempt made. She would like to try oral medications and oral hydration. She was stable to take her meclizine with a sip of water and is willing to try ice chips. 1515 the patient reports her symptoms are improving slightly. No vomiting since admission. Her labs are reviewed with her that show no abnormalities. Discharge plan reviewed she is understanding. Nothing to justify an admission. Discharge instructions and return precautions reviewed with the patient. Departure Impression Primary Impression: Vertigo Additional Impression: Nausea & vomiting Qualified Codes: R11.2 - Nausea with vomiting, unspecified Disposition: HOME, SELF-CARE Condition: Stable Departure-Patient Inst. Decision time for Depature: 15:15 Referrals: [facility] (PCP) Primary Care Physician ARISTEO ARAYA (Family) Primary Care Physician Patient Instructions: Nausea and Vomiting, Adult (DC), Vertigo (a Type of Dizziness) (DC) Add. Discharge Instructions: Take your Zofran every 6-8 hours as needed for nausea and vomiting. Obtain meclizine [id number], 25 mg take 1 every 8 hours for dizziness. Take your home medications as prescribed. Check your blood sugar every 4-6 hours and adjust your insulin as needed based on your diet. Change positions slowly and use your walker at all times to avoid falls. Return to the emergency department for new, urgent healthcare needs. Follow-[facility] at [facility] if your symptoms are not improving or worsen. All discharge instructions reviewed with patient and/or family. Voiced understanding. LYNDSEY SOUZA Aug 16, 2020 14:35
[2020-08-16 14:37] LABS: ALBUMIN 4.1 GM/DL (3.2-4.5); POTASSIUM 4.8 MMOL/L (3.6-5.0)
[2020-08-16 14:38] LABS: CALCIUM 9.6 MG/DL (8.5-10.1)
[2020-08-16 14:39] LABS: TOTAL PROTEIN 8.4 GM/DL (6.4-8.2)
[2020-08-16 14:41] LABS: BILIRUBIN,TOTAL 0.5 MG/DL (0.1-1.0)
[2020-08-16 14:43] LABS: CREATININE SERUM 1.16 MG/DL (0.60-1.30)
[2020-08-16] MEDS ORDERED: PANTOPRAZOLE 40 MG (PROTONIX) TAB PO ONE (14:45)
[2020-08-16 15:06] LABS: TSH (THYROID ANALYZER) 1.35 UIU/ML (0.35-4.94)
[2020-08-16] MEDS ORDERED: PROPRANOLOL 20 MG (INDERAL) TABLET PO ONE (15:30)
[2020-08-16 15:31] VITALS: BP 146/103
[2020-08-17] MEDS ORDERED: ONDA4TAB11 PO (14:05)
[2020-08-17] MEDS ORDERED: NITR100C PO (14:05)
== END 2020-08-16 15:31 | disposition home or self-care (01) ==
LOC: EDUNIT# 14:12 → ER 14:13
DX: R11.2 Nausea with vomiting, unspecified (principal); R42 Dizziness and giddiness; I10 Essential (primary) hypertension; I25.10 Atherosclerotic heart disease of native coronary artery without angina pectoris; E11.9 Type 2 diabetes mellitus without complications; K21.9 Gastro-esophageal reflux disease without esophagitis; F90.9 Attention-deficit hyperactivity disorder, unspecified type; F41.9 Anxiety disorder, unspecified; F32.9 Major depressive disorder, single episode, unspecified; G47.9 Sleep disorder, unspecified; J45.909 Unspecified asthma, uncomplicated; Z79.4 Long term (current) use of insulin; Z95.9 Presence of cardiac and vascular implant and graft, unspecified; Z88.8 Allergy status to other drugs, medicaments and biological substances
CPT/HCPCS: 36415; 80053; 84443; 85025

== ENCOUNTER 2020-08-17 12:05 | Emergency (ER) | payer MEDICAID ==
[~2020-08-17] VITALS: Ht 160 cm; Wt 124.7 kg
--- NOTE | 2020-08-17 12:15 | ED General ---
General Stated Complaint: DIFFICULTY URINATING History of Present Illness Date Seen by Provider: Aug 17, 2020 Time Seen by Provider: 12:15 Initial Comments 50-year-old female presents with "difficulty urinating" along with abdominal pain when she defecates. Patient had a soft stool today. Patient was seen yesterday for what she says is nausea and vomiting. Chart review showed some mild vertigo that been gone for 2 days, some nausea vomiting. Symptoms improved with meclizine. Patient was demanding admission yesterday and today one of her first complaints is that "she lives alone" and that she thinks she needs admitted. Patient had no complaints of nausea or vomiting today but more now that her urine is darker. Patient does not complain of any dizziness today. Allergies and Home Medications Allergies Coded Allergies: lisinopril (Verified Allergy, Mild, COUGH, 03/05/17) montelukast (Verified Allergy, Unknown, UNABLE TO REMEMBER REACTION, 12/13/19) Uncoded Allergies: METALS (Allergy, Unknown, 07/12/14) Home Medications Acetaminophen 325 Mg Tablet, 650 MG PO Q6H PRN for PAIN-MILD, (Reported) Butalb/Acetaminophen/Caffeine 1 Each Tablet, 1 EA PO QID PRN for MIGRAINE, (Reported) Canagliflozin 300 Mg Tablet, 300 MG PO DAILY, (Reported) Docusate Sodium 100 Mg Capsule, 100 MG PO DAILY PRN for CONSTIPATION-1ST LINE, (Reported) Duloxetine HCl 60 Mg Capsule.dr, 60 MG PO DAILY, (Reported) TAKES 30MG +60MG DAILY TO EQUAL 90MG Duloxetine HCl 30 Mg Capsule.dr, 30 MG PO DAILY, (Reported) TAKES 30MG +60MG DAILY TO EQUAL 90MG Gabapentin 600 Mg Tablet, 600 MG PO TID, (Reported) Insulin Detemir 100 Unit/1 Ml Insuln.pen, 15 UNIT SQ HS, (Reported) Ondansetron 4 Mg Tab.rapdis, 4 MG PO Q6H PRN for NAUSEA/VOMITING Prescribed by: LUÍS RITCHIE on 11/21/19 1250 Ondansetron 4 Mg Tab.rapdis, 4 MG PO Q6H PRN for NAUSEA/VOMITING Prescribed by: LUÍS RITCHIE on 03/11/20 0245 Pantoprazole Sodium 40 Mg Tablet.dr, 40 MG PO DAILY, (Reported) Pioglitazone HCl 45 Mg Tablet, 45 MG PO DAILY, (Reported) Promethazine HCl 25 Mg Tablet, 25 MG PO Q6H PRN for NAUSEA/VOMITING Prescribed by: LUÍS RITCHIE on 03/11/20 0245 Propranolol HCl 60 Mg Tablet, 60 MG PO BID, (Reported) Quetiapine Fumarate 200 Mg Tablet, 200 MG PO HS, (Reported) Spironolactone 25 Mg Tablet, 25 MG PO DAILY, (Reported) Patient Home Medication List Home Medication List Reviewed: Yes Review of Systems Review of Systems Constitutional: see HPI Respiratory: No cough, No short of breath Cardiovascular: No chest pain, No palpitations Gastrointestinal: see HPI Genitourinary: see HPI Musculoskeletal: no symptoms reported Skin: no symptoms reported Psychiatric/Neurological: No Symptoms Reported Hematologic/Lymphatic: No Symptoms Reported Past Oitvjbr-Vlgoeu-Ubgaxw Hx Past Med/Social Hx: Reviewed Nursing Past Med/Soc Hx Patient Social History Type Used: Electronic/Vapor 2nd Hand Smoke Exposure: No Recent Hopitalizations: Yes (11/2019-ABDOMINAL PAIN) Immunizations Up To Date Tetanus Booster (TDap): More than 5yrs Seasonal Allergies Seasonal Allergies: No Past Medical History Surgeries: Yes (D&C; RIGHT KNEE SCOPE X 2; EGD; CARDIAC CATH 2012--NO INTERVENTION) Cardiac, Eye Surgery, Orthopedic Respiratory: Yes Asthma Currently Using CPAP: No Currently Using BIPAP: No Cardiac: Yes (CARDIAC CATH 2012--NORMAL CORONARIES, NO INTERVENTION) Coronary Artery Disease, High Cholesterol, Hypertension Neurological: Yes Headaches /Migraines 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 Disorders: No Female 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 Disorders: Denies 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 Sexually Transmitted Disease: No Genitourinary: Yes Bladder Infection, Kidney Stones, Renal Failure Gastrointestinal: Yes Gastroesophageal Reflux, Hiatal Hernia, Irritable Bowel Musculoskeletal: Yes Fibromyalgia Endocrine: Yes (NON COMPLAINT) Diabetes, Non-Insulin dep HEENT: Yes (EYE SURGERY) Loss of Vision: Denies Hearing Impairment: Denies Cancer: No Psychosocial: Yes (EXTENSIVE PSYCH ISSUES) ADD/ADHD, Sleep Difficulties, Anxiety, PTSD, Depression Integumentary: No Blood Disorders: No Adverse Reaction/Blood Tranf: No Family Medical History Hypertension 19 FATHER CVA, Seizures Physical Exam Vital Signs Vital Signs - First Documented 08/17/20 12:11 Temp 35.4 Pulse 106 Resp 17 B/P (MAP) 138/91 (107) Pulse Ox 97 O2 Delivery Room Air Capillary Refill : Height, Weight, BMI Height: 5'3.00" Weight: 240lbs. 2.0oz. 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 Norm as Tested Progress/Results/Core Measures Suspected Sepsis SIRS Temperature: Pulse: Respiratory Rate: Laboratory Tests 08/17/20 12:30: White Blood Count 7.6 Blood Pressure / Mean: Laboratory Tests 08/17/20 12:30: Creatinine 1.34H, Platelet Count 271, Total Bilirubin 0.7 Results/Orders Lab Results Laboratory Tests Test 08/17/20 12:30 08/17/20 13:07 Range/Units White Blood Count 7.6 4.3-11.0 10^3/uL Red Blood Count 4.84 3.80-5.11 10^6/uL Hemoglobin 12.4 11.5-16.0 g/dL Hematocrit 40 35-52 % Mean Corpuscular Volume 82 80-99 fL Mean Corpuscular Hemoglobin 26 25-34 pg Mean Corpuscular Hemoglobin Concent 31 L 32-36 g/dL Red Cell Distribution Width 17.0 H 10.0-14.5 % Platelet Count 271 130-400 10^3/uL Mean Platelet Volume 11.2 9.0-12.2 fL Immature Granulocyte % (Auto) 0 % Neutrophils (%) (Auto) 65 42-75 % Lymphocytes (%) (Auto) 25 12-44 % Monocytes (%) (Auto) 7 0-12 % Eosinophils (%) (Auto) 2 0-10 % Basophils (%) (Auto) 1 0-10 % Neutrophils # (Auto) 4.9 1.8-7.8 10^3/uL Lymphocytes # (Auto) 1.9 1.0-4.0 10^3/uL Monocytes # (Auto) 0.5 0.0-1.0 10^3/uL Eosinophils # (Auto) 0.2 0.0-0.3 10^3/uL Basophils # (Auto) 0.0 0.0-0.1 10^3/uL Immature Granulocyte # (Auto) 0.0 0.0-0.1 10^3/uL Sodium Level 141 135-145 MMOL/L Potassium Level 4.2 3.6-5.0 MMOL/L Chloride Level 106 98-107 MMOL/L Carbon Dioxide Level 21 21-32 MMOL/L Anion Gap 14 5-14 MMOL/L Blood Urea Nitrogen 14 7-18 MG/DL Creatinine 1.34 H 0.60-1.30 MG/DL Estimat Glomerular Filtration Rate 42 BUN/Creatinine Ratio 10 Glucose Level 139 H 70-105 MG/DL Calcium Level 9.9 8.5-10.1 MG/DL Corrected Calcium 9.6 8.5-10.1 MG/DL Total Bilirubin 0.7 0.1-1.0 MG/DL Aspartate Amino Transf (AST/SGOT) 20 5-34 U/L Alanine Aminotransferase (ALT/SGPT) 18 0-55 U/L Alkaline Phosphatase 60 40-136 U/L C-Reactive Protein High Sensitivity 0.62 H 0.00-0.50 MG/DL Total Protein 8.3 H 6.4-8.2 GM/DL Albumin 4.4 3.2-4.5 GM/DL Lipase 22 8-78 U/L Urine Color YELLOW Urine Clarity CLOUDY Urine pH 8.5 5-9 Urine Specific [place] 1.015 L 1.016-1.022 Urine Protein 1+ H NEGATIVE Urine Glucose (UA) 1+ H NEGATIVE Urine Ketones TRACE H NEGATIVE Urine Nitrite NEGATIVE NEGATIVE Urine Bilirubin NEGATIVE NEGATIVE Urine Urobilinogen 0.2 < = 1.0 MG/DL Urine Leukocyte Esterase 1+ H NEGATIVE Urine RBC (Auto) NEGATIVE NEGATIVE Urine RBC NONE /HPF Urine WBC 50-100 H /HPF Urine Squamous Epithelial Cells >50 H /HPF Urine Crystals NONE /LPF Urine Bacteria FEW H /HPF Urine Casts NONE /LPF Urine Mucus NEGATIVE /LPF Urine Culture Indicated YES Urine Opiates Screen NEGATIVE NEGATIVE Urine Oxycodone Screen NEGATIVE NEGATIVE Urine Methadone Screen NEGATIVE NEGATIVE Urine Propoxyphene Screen NEGATIVE NEGATIVE Urine Barbiturates Screen NEGATIVE NEGATIVE Ur Tricyclic Antidepressants Screen POSITIVE H NEGATIVE Urine Phencyclidine Screen NEGATIVE NEGATIVE Urine Amphetamines Screen NEGATIVE NEGATIVE Urine Methamphetamines Screen NEGATIVE NEGATIVE Urine Benzodiazepines Screen NEGATIVE NEGATIVE Urine Cocaine Screen NEGATIVE NEGATIVE Urine Cannabinoids Screen NEGATIVE NEGATIVE Micro Results Microbiology 08/17/20 Influenza Types A,B Antigen (JOANNA) - Final, Complete My Orders Orders - OFELIA ZAMORA DO Ondansetron Injection (Zofran Injectio (08/17/20 12:30) Lactated Ringers (Lr 1000 Ml Iv Solution (08/17/20 12:16) Ed Iv/Invasive Line Start (08/17/20 12:16) Cbc With Automated Diff (08/17/20 12:16) Comprehensive Metabolic Panel (08/17/20 12:16) Hs C Reactive Protein (08/17/20 12:16) Drug Screen Stat (Urine) (08/17/20 12:16) Lipase (08/17/20 12:16) Ua Culture If Indicated (08/17/20 12:16) Acute Abd Series (08/17/20 12:16) Influenza A And B Antigens (08/17/20 12:16) Urine Culture (08/17/20 13:07) Medications Given in ED Current Medications Medications Dose Ordered Sig/Kate Route Start Time Stop Time Status Last Admin Dose Admin Ondansetron HCl 4 mg ONCE ONCE IVP 08/17/20 12:30 08/17/20 12:31 DC 08/17/20 12:31 4 MG Vital Signs/I&O 08/17/20 12:11 Temp 35.4 Pulse 106 Resp 17 B/P (MAP) 138/91 (107) Pulse Ox 97 O2 Delivery Room Air Capillary Refill : Progress Note : Time: 14:02 Progress Note Patient with questionable UTI, looks more like contaminant but she is complaining of pain tomorrow. 3 days of Macrobid. Patient's lab and x-rays are otherwise unremarkable. Patient complains of having issues with bowel movement upon arrival states she had a bowel movement this morning. Patient is attempting to be admitted that discussed her she had no reason for admission at this time without any admission criteria. She continues to manipulate her story in an attempt. Patient however stable and will be discharged home. Diagnostic Imaging Diagonstic Imaging: Xray Plain Films/CT/US/NM/MRI: abdomen Comments [facility] [place], [place] NAME: NAE PRICE Divine [facility] REC#: [id number] PT STATUS: REG ER : 1970 PHYSICIAN: OFELIA ZAMORA DO ADMIT DATE: 08/17/20/ER Signed Date of Exam:08/17/20 ACUTE ABD SERIES Indication: Abdominal pain PA chest, supine and upright abdominal images are obtained Lungs are clear. Bowel gas pattern is normal. There are no pathologic masses or calcifications. IMPRESSION: No acute abnormalities in the abdomen Dictated by: Dictated on workstation # [id number] Dict: 08/17/20 1304 Trans: 08/17/20 1305 TB [id number] Interpreted by: MIHIR SINGH MD Electronically signed by: MIHIR SINGH MD 08/17/20 1305 Reviewed: Reviewed by Me, Reviewed/Discussed Departure Impression Primary Impression: Acute cystitis Qualified Codes: N30.00 - Acute cystitis without hematuria Disposition: HOME, SELF-CARE Condition: Stable Departure-Patient Inst. Referrals: [facility] [place] Primary Care Physician ARISTEO ARAYA (Family) Primary Care Physician Patient Instructions: Urinary Tract Infections in Adults Add. Discharge Instructions: Follow-up with your primary care provider next week Scripts Ondansetron (Ondansetron Odt) 4 Mg Tab.rapdis 4 MG PO Q6H PRN for NAUSEA/VOMITING, #20 TAB 0 Refills Prov: OFELIA ZAMORA DO 08/17/20 Nitrofurantoin Macrocrystal (Nitrofurantoin) 100 Mg Capsule 100 MG PO BID, #6 CAP 0 Refills Prov: OFELIA ZAMORA DO 08/17/20 OFELIA ZAMORA DO Aug 17, 2020 12:15
[2020-08-17] MEDS ORDERED: LACTATED RINGERS 1,000 ML IV STA (12:16)
[2020-08-17] MEDS ORDERED: ONDANSETRON 4 MG/2 ML (SDV) Z0FRAN IVP ONE (12:30)
[2020-08-17 12:37] LABS: BASOPHILS % (AUTO) 1 % (0-10); EOSINOPHILS # (AUTO) 0.2 10^3/uL (0.0-0.3); EOSINOPHILS % (AUTO) 2 % (0-10); HEMATOCRIT 40 % (35-52); HEMOGLOBIN 12.4 g/dL (11.5-16.0); LYMPHOCYTES # (AUTO) 1.9 10^3/uL (1.0-4.0); LYMPHOCYTES % (AUTO) 25 % (12-44); MEAN CORPUSCULAR HEMOGLOBIN 26 pg (25-34); MEAN CORPUSCULAR HGB CONC 31 g/dL (32-36); MEAN CORPUSCULAR VOLUME 82 fL (80-99); MEAN PLATELET VOLUME 11.2 fL (9.0-12.2); MONOCYTES # (AUTO) 0.5 10^3/uL (0.0-1.0); MONOCYTES % (AUTO) 7 % (0-12); NEUTROPHILS # (AUTO) 4.9 10^3/uL (1.8-7.8); NEUTROPHILS % (AUTO) 65 % (42-75); PLATELET COUNT 271 10^3/uL (130-400); WHITE BLOOD COUNT 7.6 10^3/uL (4.3-11.0)
[2020-08-17 12:53] LABS: ALBUMIN 4.4 GM/DL (3.2-4.5); POTASSIUM 4.2 MMOL/L (3.6-5.0)
[2020-08-17 12:54] LABS: CALCIUM 9.9 MG/DL (8.5-10.1)
[2020-08-17 12:55] LABS: TOTAL PROTEIN 8.3 GM/DL (6.4-8.2)
[2020-08-17 12:57] LABS: BILIRUBIN,TOTAL 0.7 MG/DL (0.1-1.0)
[2020-08-17 12:59] LABS: CREATININE SERUM 1.34 MG/DL (0.60-1.30)
--- NOTE | 2020-08-17 13:06 | Diagnostic Imaging Report ---
Indication: Abdominal pain PA chest, supine and upright abdominal images are obtained Lungs are clear. Bowel gas pattern is normal. There are no pathologic masses or calcifications. IMPRESSION: No acute abnormalities in the abdomen Dictated by: Dictated on workstation # [id number]
[2020-08-17 13:13] LABS: BILIRUBIN,URINE NEGATIVE (NEGATIVE); CLARITY,URINE CLOUDY; COLOR,URINE YELLOW; GLUCOSE, URINE (UA) 1+ (NEGATIVE); KETONES,URINE TRACE (NEGATIVE); LEUKOCYTE ESTERASE ,URINE 1+ (NEGATIVE); NITRITE,URINE NEGATIVE (NEGATIVE); PH,URINE 8.5 (5-9); PROTEIN,URINE 1+ (NEGATIVE)
[2020-08-17 13:27] LABS: AMPHETAMINE SCREEN, URINE NEGATIVE (NEGATIVE); BARBITURATE SCREEN URINE NEGATIVE (NEGATIVE); BENZODIAZEPINES SCREEN URINE NEGATIVE (NEGATIVE); CANNABINOID SCREEN, URINE NEGATIVE (NEGATIVE); COCAINE SCREEN URINE NEGATIVE (NEGATIVE); METHADONE STAT NEGATIVE (NEGATIVE); METHAMPHETAMINE SCREEN URINE S NEGATIVE (NEGATIVE); OPIATE SCREEN URINE NEGATIVE (NEGATIVE); OXYCODONE STAT NEGATIVE (NEGATIVE); PROPOXYPHENE STAT NEGATIVE (NEGATIVE); TRICYCLIC ANTIDEPRESSANTS SCRE POSITIVE (NEGATIVE)
[2020-08-17 13:38] LABS: WBC,URINE 50-100 /HPF
[2020-08-17 13:39] LABS: BACTERIA,URINE FEW /HPF; SQUAMOUS EPITHELIAL CELL,UR >50 /HPF
[2020-08-17] MEDS ORDERED: ONDA4TAB11 PO (14:05)
[2020-08-17] MEDS ORDERED: NITR100C PO (14:05)
[2020-08-17 14:26] VITALS: BP 126/91
== END 2020-08-17 14:26 | disposition home or self-care (01) ==
LOC: EDUNIT# 12:05 → ER 12:10
DX: N30.00 Acute cystitis without hematuria (principal); G47.9 Sleep disorder, unspecified; I25.10 Atherosclerotic heart disease of native coronary artery without angina pectoris; I10 Essential (primary) hypertension; E11.9 Type 2 diabetes mellitus without complications; K21.9 Gastro-esophageal reflux disease without esophagitis; G43.909 Migraine, unspecified, not intractable, without status migrainosus; F90.9 Attention-deficit hyperactivity disorder, unspecified type; F41.9 Anxiety disorder, unspecified; F32.9 Major depressive disorder, single episode, unspecified; F43.10 Post-traumatic stress disorder, unspecified; Z95.9 Presence of cardiac and vascular implant and graft, unspecified; Z79.4 Long term (current) use of insulin; Z79.899 Other long term (current) drug therapy; Z88.8 Allergy status to other drugs, medicaments and biological substances
CPT/HCPCS: 36415; 74022; 80053; 80306; 81000; 83690; 85025; 86141; 87077; 87088; 87186; 87804

== ENCOUNTER 2020-08-17 22:26 | Emergency (ER) | payer MEDICAID ==
[~2020-08-17] VITALS: Ht 160 cm; Wt 124.7 kg
[~2020-08-17 22:26] MED LIST changes: +NITR100C PO
[2020-08-17 22:45] LABS: BASOPHILS # (AUTO) 0.1 10^3/uL (0.0-0.1); BASOPHILS % (AUTO) 1 % (0-10); EOSINOPHILS # (AUTO) 0.1 10^3/uL (0.0-0.3); EOSINOPHILS % (AUTO) 1 % (0-10); HEMATOCRIT 39 % (35-52); HEMOGLOBIN 12.2 g/dL (11.5-16.0); LYMPHOCYTES # (AUTO) 2.2 10^3/uL (1.0-4.0); LYMPHOCYTES % (AUTO) 25 % (12-44); MEAN CORPUSCULAR HEMOGLOBIN 26 pg (25-34); MEAN CORPUSCULAR HGB CONC 31 g/dL (32-36); MEAN CORPUSCULAR VOLUME 82 fL (80-99); MEAN PLATELET VOLUME 11.3 fL (9.0-12.2); MONOCYTES # (AUTO) 0.7 10^3/uL (0.0-1.0); MONOCYTES % (AUTO) 8 % (0-12); NEUTROPHILS # (AUTO) 5.4 10^3/uL (1.8-7.8); NEUTROPHILS % (AUTO) 64 % (42-75); PLATELET COUNT 299 10^3/uL (130-400); WHITE BLOOD COUNT 8.5 10^3/uL (4.3-11.0)
[2020-08-17] MEDS ORDERED: fentaNYL INJECTION 100 MCG/2 ML AMP IVP ONE (22:45)
[2020-08-17] MEDS ORDERED: NS IV 1000 ML 1,000 ML IV SCH (22:45)
[2020-08-17] MEDS ORDERED: ONDANSETRON 4 MG/2 ML (SDV) Z0FRAN IVP ONE (22:45)
--- NOTE | 2020-08-17 23:04 | ED Abdominal Pain ---
General Stated Complaint: N/V ; BACK PAIN Source of Information: Patient Exam Limitations: No Limitations (ZAIN MURO,MED STUDENT) History of Present Illness Date Seen by Provider: Aug 17, 2020 Time Seen by Provider: 22:46 Initial Comments Patient to ED via EMS with complaints of nausea, vomiting, abdominal pain, and back pain. She was seen this morning (08/17) in the ED with similar complaints and yesterday (08/16) with complaints of dizziness. This AM she was discharged with macrobid and zofran for a UTI. WBC and acute abdomen series normal at earlier visit today. She states the N/V and abdominal pain have worsened since that time and she has been unable to keep anything down despite the zofran. She complains of mid back pain that is chronic for her. Abdominal pain is suprapubic and radiates to the left abdomen and flank. No complaints of dizziness at this time. Patient states she has a history of kidney stones and the pain she is feeling is very similar Timing/Duration: 3-4 Days Severity/Quality: Moderate Location: Suprapubic Radiation: Flank (left) Activities at Onset: None Associated Symptoms: Back Pain, Fever/Chills, Nausea/Vomiting (ZAIN MURO,MED STUDENT) Allergies and Home Medications Allergies Coded Allergies: lisinopril (Verified Allergy, Mild, COUGH, 03/05/17) montelukast (Verified Allergy, Unknown, UNABLE TO REMEMBER REACTION, 12/13/19) Uncoded Allergies: METALS (Allergy, Unknown, 07/12/14) Home Medications Acetaminophen 325 Mg Tablet, 650 MG PO Q6H PRN for PAIN-MILD, (Reported) Butalb/Acetaminophen/Caffeine 1 Each Tablet, 1 EA PO QID PRN for MIGRAINE, (Reported) Canagliflozin 300 Mg Tablet, 300 MG PO DAILY, (Reported) Docusate Sodium 100 Mg Capsule, 100 MG PO DAILY PRN for CONSTIPATION-1ST LINE, (Reported) Duloxetine HCl 60 Mg Capsule.dr, 60 MG PO DAILY, (Reported) TAKES 30MG +60MG DAILY TO EQUAL 90MG Duloxetine HCl 30 Mg Capsule.dr, 30 MG PO DAILY, (Reported) TAKES 30MG +60MG DAILY TO EQUAL 90MG Gabapentin 600 Mg Tablet, 600 MG PO TID, (Reported) Insulin Detemir 100 Unit/1 Ml Insuln.pen, 15 UNIT SQ HS, (Reported) Nitrofurantoin Macrocrystal 100 Mg Capsule, 100 MG PO BID Prescribed by: OFELIA ZAMORA on 08/17/20 1405 Ondansetron 4 Mg Tab.rapdis, 4 MG PO Q6H PRN for NAUSEA/VOMITING Prescribed by: LUÍS RITCHIE on 11/21/19 1250 Ondansetron 4 Mg Tab.rapdis, 4 MG PO Q6H PRN for NAUSEA/VOMITING Prescribed by: LUÍS RITCHIE on 03/11/20 0245 Ondansetron 4 Mg Tab.rapdis, 4 MG PO Q6H PRN for NAUSEA/VOMITING Prescribed by: OFELIA ZAMORA on 08/17/20 1405 Pantoprazole Sodium 40 Mg Tablet.dr, 40 MG PO DAILY, (Reported) Pioglitazone HCl 45 Mg Tablet, 45 MG PO DAILY, (Reported) Promethazine HCl 25 Mg Tablet, 25 MG PO Q6H PRN for NAUSEA/VOMITING Prescribed by: LUÍS RITCHIE on 03/11/20 0245 Propranolol HCl 60 Mg Tablet, 60 MG PO BID, (Reported) Quetiapine Fumarate 200 Mg Tablet, 200 MG PO HS, (Reported) Spironolactone 25 Mg Tablet, 25 MG PO DAILY, (Reported) Patient Home Medication List Home Medication List Reviewed: Yes (ZAIN MURO,MARCI STUDENT) Review of Systems Review of Systems Constitutional: chills; No dizziness Respiratory: Denies Cough, Denies Shortness of Air Gastrointestinal: Abdominal Pain, Constipated (chronic, soft bm at 1430 this afternoon ); Denies Diarrhea; Nausea, Vomiting Genitourinary: Denies Burning, Denies Frequency, Denies Urgency Musculoskeletal: back pain Skin: no symptoms reported (ZAIN MURO,MARCI STUDENT) Past Noxmylr-Usciil-Rptrmr Hx Patient Social History Type Used: Electronic/Vapor 2nd Hand Smoke Exposure: No Recent Hopitalizations: No (ZAIN MURO,MARCI STUDENT) Immunizations Up To Date Tetanus Booster (TDap): More than 5yrs (ZAIN MURO,MARCI STUDENT) Seasonal Allergies Seasonal Allergies: No (ZAIN MURO MED STUDENT) Past Medical History Surgeries: Yes (D&C; RIGHT KNEE SCOPE X 2; EGD; CARDIAC CATH 2012--NO INTERVENTION) Cardiac, Eye Surgery, Orthopedic Respiratory: Yes Asthma Currently Using CPAP: No Currently Using BIPAP: No Cardiac: Yes (CARDIAC CATH 2012--NORMAL CORONARIES, NO INTERVENTION) Coronary Artery Disease, High Cholesterol, Hypertension Neurological: Yes Headaches /Migraines 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 Disorders: No Female 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 Disorders: Denies SHIRRER History: Menopausal Sexually Transmitted Disease: No Genitourinary: Yes Bladder Infection, Kidney Stones, Renal Failure Gastrointestinal: Yes Gastroesophageal Reflux, Hiatal Hernia, Irritable Bowel Musculoskeletal: Yes Fibromyalgia Endocrine: Yes (NON COMPLAINT) Diabetes, Non-Insulin dep HEENT: Yes (EYE SURGERY) Loss of Vision: Denies Hearing Impairment: Denies Cancer: No Psychosocial: Yes (EXTENSIVE PSYCH ISSUES) ADD/ADHD, Sleep Difficulties, Anxiety, PTSD, Depression Integumentary: No Blood Disorders: No Adverse Reaction/Blood Tranf: No (ZAIN MURO MED STUDENT) Family Medical History Hypertension 19 FATHER CVA, Seizures (ZAIN MURO MED STUDENT) Physical Exam Vital Signs Vital Signs - First Documented 08/17/20 22:26 Temp 36.7 Pulse 104 Resp 18 B/P (MAP) 100/83 (89) Pulse Ox 98 O2 Delivery Room Air (LENNY BOYKIN MD) Vital Signs Capillary Refill : (ZAIN MURO MED STUDENT) Height/Weight/BMI Height: 5'3.00" Weight: 240lbs. 2.0oz. [id number]; 48.00 BMI Method:Stated General Appearance: WD/WN, moderate distress, obese Neck: non-tender, supple Respiratory: lungs clear, normal breath sounds, no respiratory distress, no accessory muscle use Cardiovascular: regular rate, rhythm, no murmur Peripheral Pulses: 2+ Radial Pulses (R), 2+ Radial Pulses (L) Gastrointestinal: normal bowel sounds, soft, no organomegaly; No distended, No guarding, No rebound; tenderness (generalized ) Extremities: no pedal edema, no calf tenderness Back: other (mild bilateral CVA tenderness) Neurologic/Psychiatric: alert, normal mood/affect, oriented x 3 Skin: normal color, warm/dry (ZAIN MURO MED STUDENT) Progress/Results/Core Measures Results/Orders Lab Results Laboratory Tests Test 08/17/20 22:38 08/17/20 23:49 Range/Units White Blood Count 8.5 4.3-11.0 10^3/uL Red Blood Count 4.78 3.80-5.11 10^6/uL Hemoglobin 12.2 11.5-16.0 g/dL Hematocrit 39 35-52 % Mean Corpuscular Volume 82 80-99 fL Mean Corpuscular Hemoglobin 26 25-34 pg Mean Corpuscular Hemoglobin Concent 31 L 32-36 g/dL Red Cell Distribution Width 17.1 H 10.0-14.5 % Platelet Count 299 130-400 10^3/uL Mean Platelet Volume 11.3 9.0-12.2 fL Immature Granulocyte % (Auto) 0 % Neutrophils (%) (Auto) 64 42-75 % Lymphocytes (%) (Auto) 25 12-44 % Monocytes (%) (Auto) 8 0-12 % Eosinophils (%) (Auto) 1 0-10 % Basophils (%) (Auto) 1 0-10 % Neutrophils # (Auto) 5.4 1.8-7.8 10^3/uL Lymphocytes # (Auto) 2.2 1.0-4.0 10^3/uL Monocytes # (Auto) 0.7 0.0-1.0 10^3/uL Eosinophils # (Auto) 0.1 0.0-0.3 10^3/uL Basophils # (Auto) 0.1 0.0-0.1 10^3/uL Immature Granulocyte # (Auto) 0.0 0.0-0.1 10^3/uL Sodium Level 142 135-145 MMOL/L Potassium Level 3.7 3.6-5.0 MMOL/L Chloride Level 107 98-107 MMOL/L Carbon Dioxide Level 19 L 21-32 MMOL/L Anion Gap 16 H 5-14 MMOL/L Blood Urea Nitrogen 14 7-18 MG/DL Creatinine 1.35 H 0.60-1.30 MG/DL Estimat Glomerular Filtration Rate 41 BUN/Creatinine Ratio 10 Glucose Level 154 H 70-105 MG/DL Calcium Level 9.8 8.5-10.1 MG/DL Corrected Calcium 9.4 8.5-10.1 MG/DL Total Bilirubin 0.7 0.1-1.0 MG/DL Aspartate Amino Transf (AST/SGOT) 21 5-34 U/L Alanine Aminotransferase (ALT/SGPT) 17 0-55 U/L Alkaline Phosphatase 58 40-136 U/L C-Reactive Protein High Sensitivity 0.73 H 0.00-0.50 MG/DL Total Protein 8.1 6.4-8.2 GM/DL Albumin 4.5 3.2-4.5 GM/DL Lipase 18 8-78 U/L Urine Color YELLOW Urine Clarity SL CLOUDY Urine pH 6.5 5-9 Urine Specific [place] 1.015 L 1.016-1.022 Urine Protein TRACE H NEGATIVE Urine Glucose (UA) 1+ H NEGATIVE Urine Ketones 2+ H NEGATIVE Urine Nitrite NEGATIVE NEGATIVE Urine Bilirubin NEGATIVE NEGATIVE Urine Urobilinogen 1.0 < = 1.0 MG/DL Urine Leukocyte Esterase 1+ H NEGATIVE Urine RBC (Auto) NEGATIVE NEGATIVE Urine RBC NONE /HPF Urine WBC 2-5 /HPF Urine Squamous Epithelial Cells NONE /HPF Urine Crystals NONE /LPF Urine Bacteria NEGATIVE /HPF Urine Casts NONE /LPF Urine Mucus NEGATIVE /LPF Urine Culture Indicated NO (LENNY BOYKIN MD) My Orders Orders - LENNY BOYKIN MD Cbc With Automated Diff (08/17/20 22:32) Comprehensive Metabolic Panel (08/17/20 22:32) Hs C Reactive Protein (08/17/20 22:32) Lipase (08/17/20 22:32) Ua Culture If Indicated (08/17/20 22:32) Ed Iv/Invasive Line Start (08/17/20 22:32) Ns Iv 1000 Ml (Sodium Chloride 0.9%) (08/17/20 22:45) Fentanyl Injection (Sublimaze Injection (08/17/20 22:45) Ondansetron Injection (Zofran Injectio (08/17/20 22:45) Morphine Injection (Morphine Injection (08/17/20 23:32) Ct Abd/Pelvis Wo(Kidney Stone) (08/18/20 00:01) Ketorolac Injection (Toradol Injection) (08/18/20 00:45) (LENNY BOYKIN MD) Medications Given in ED Current Medications Medications Dose Ordered Sig/Kate Route Start Time Stop Time Status Last Admin Dose Admin Fentanyl Citrate 50 mcg ONCE ONCE IVP 08/17/20 22:45 08/17/20 22:46 DC 08/17/20 23:00 50 MCG Ketorolac Tromethamine 30 mg ONCE ONCE IVP 08/18/20 00:45 08/18/20 00:46 DC 08/18/20 02:01 30 MG Ondansetron HCl 4 mg ONCE ONCE IVP 08/17/20 22:45 08/17/20 22:46 DC 08/17/20 23:01 4 MG (LENNY BOYKIN MD) Vital Signs/I&O 08/17/20 22:26 Temp 36.7 Pulse 104 Resp 18 B/P (MAP) 100/83 (89) Pulse Ox 98 O2 Delivery Room Air (LENNY BOYKIN MD) Departure Impression Primary Impression: Generalized abdominal pain Additional Impression: Lower back pain Qualified Codes: M54.5 - Low back pain Disposition: HOME, SELF-CARE Condition: Improved Departure-Patient Inst. Decision time for Depature: 02:11 (LENNY BOYKIN MD) Referrals: [facility]/ (PCP) Primary Care Physician ARISTEO ARAYA (Family) Primary Care Physician Patient Instructions: Abdominal Pain, Adult ED, Low Back Pain in Adults Add. Discharge Instructions: Drink plenty of clear liquids to stay well-hydrated. Complete your medications as previously prescribed. Call your doctor for follow-up as soon as possible. Return to the emergency room with worsening symptoms. Call with questions or concerns. For pain you may take ibuprofen up to 600 mg every 6 hours as needed and/or Tylenol (acetaminophen) up to 1000 mg every 6 hours as needed. Add your muscle relaxers as previously prescribed for spasm or muscle tension. ZAIN MURO,MED STUDENT Aug 17, 2020 23:04 LENNY BOYKIN MD Aug 18, 2020 02:15
[2020-08-17 23:06] LABS: ALBUMIN 4.5 GM/DL (3.2-4.5); POTASSIUM 3.7 MMOL/L (3.6-5.0)
[2020-08-17 23:07] LABS: CALCIUM 9.8 MG/DL (8.5-10.1)
[2020-08-17 23:09] LABS: TOTAL PROTEIN 8.1 GM/DL (6.4-8.2)
[2020-08-17 23:10] LABS: BILIRUBIN,TOTAL 0.7 MG/DL (0.1-1.0)
[2020-08-17 23:12] LABS: CREATININE SERUM 1.35 MG/DL (0.60-1.30)
[2020-08-17] MEDS ORDERED: morphine INJ 10 MG/ML 1ML (SYR OR VIAL) IVP STA (23:32)
[2020-08-18] LABS: BILIRUBIN,URINE NEGATIVE (NEGATIVE); CLARITY,URINE SL CLOUDY; COLOR,URINE YELLOW; GLUCOSE, URINE (UA) 1+ (NEGATIVE); KETONES,URINE 2+ (NEGATIVE); LEUKOCYTE ESTERASE ,URINE 1+ (NEGATIVE); NITRITE,URINE NEGATIVE (NEGATIVE); PH,URINE 6.5 (5-9); PROTEIN,URINE TRACE (NEGATIVE)
[2020-08-18 00:05] LABS: BACTERIA,URINE NEGATIVE /HPF
[2020-08-18] MEDS ORDERED: KETOROLAC 30 MG/ML VIAL IVP ONE (00:45)
[2020-08-18 02:26] VITALS: BP 124/84
--- NOTE | 2020-08-18 07:45 | Diagnostic Imaging Report ---
PROCEDURE: CT urinary tract, rule out kidney stone. TECHNIQUE: Multiple contiguous axial images were obtained through the abdomen and pelvis without the use of intravenous contrast. Auto Exposure Controls were utilized during the CT exam to meet ALARA standards for radiation dose reduction. INDICATION: Flank pain for 4 days as well as painful urination. Correlation is made with prior CT from 03/11/2020. The lung bases are clear apart from calcified granuloma in the right lower lobe. The liver and gallbladder are unremarkable. No biliary ductal dilatation is seen. The pancreas and spleen are unremarkable. No adrenal mass is detected. There is some cortical scarring involving the right kidney, similar to prior exam. No renal calculi or hydronephrosis is detected. No ureteral calculi are seen. Bladder is decompressed. Aorta is nonaneurysmal. Small and large bowel loops are normal in caliber. There is no obstruction. There is no free fluid or fluid collection. Uterus is unremarkable. There is some edema in the midline subcutaneous tissues of the back. IMPRESSION: 1. No evidence of nephrolithiasis or hydronephrosis. No ureteral calculi are seen. There is no acute feature in the abdomen or pelvis. Dictated by: Dictated on workstation # [id number]
== END 2020-08-18 02:26 | disposition home or self-care (01) ==
LOC: EDUNIT# 22:26 → ER 22:27
DX: R10.84 Generalized abdominal pain (principal); M54.5 Low back pain; E66.9 Obesity, unspecified; K21.9 Gastro-esophageal reflux disease without esophagitis; F41.9 Anxiety disorder, unspecified; E11.9 Type 2 diabetes mellitus without complications; I10 Essential (primary) hypertension; F32.9 Major depressive disorder, single episode, unspecified; Z68.42 Body mass index [BMI] 45.0-49.9, adult; Z95.5 Presence of coronary angioplasty implant and graft; Z88.8 Allergy status to other drugs, medicaments and biological substances; Z82.49 Family history of ischemic heart disease and other diseases of the circulatory system
CPT/HCPCS: 36415; 74176; 80053; 81000; 83690; 85025; 86141

== ENCOUNTER → 2020-10-26 | Outpatient (CLI) | payer MEDICARE, MEDICAID ==
--- NOTE | 2020-10-29 10:58 | Diagnostic Imaging Report ---
INDICATION: Routine screening. COMPARISON: No prior mammograms are available for comparison. This is a baseline study. TECHNIQUE: 2D and 3D bilateral screening mammography was performed with CAD. FINDINGS: Scattered fibroglandular densities are identified bilaterally. Intraparenchymal lymph nodes in the upper and outer aspects of both breasts are noted. No spiculated mass or malignant appearing microcalcifications are seen. The axillae are unremarkable. IMPRESSION: No mammographic features suspicious for malignancy are identified. ACR BI-RADS Category 2: Benign findings. Result letter will be mailed to the patient. Note: At least 10% of breast cancer is not imaged by mammography. Dictated by: Dictated on workstation # [id number]
== END ==
LOC: RAD 15:31
PROVIDERS: ATTEND Physician Assistant
DX: Z12.31 Encounter for screening mammogram for malignant neoplasm of breast (principal); M47.816 Spondylosis without myelopathy or radiculopathy, lumbar region
CPT/HCPCS: 77063; 77067

== ENCOUNTER 2020-11-22 08:20 | Observation (INO) | payer MEDICARE, MEDICAID ==
[~2020-11-22] VITALS: Ht 160 cm; Wt 124.8 kg
[~2020-11-22 08:20] MED LIST changes: +MIRT-69 PO; -MIRT30TA6 PO
[2020-11-22] MEDS ORDERED: ONDANSETRON 4 MG/2 ML (SDV) Z0FRAN IVP ONE (08:30)
[2020-11-22] MEDS ORDERED: LACTATED RINGERS 1,000 ML IV ONE (08:30)
[2020-11-22] MEDS ORDERED: FAMOTIDINE 20MG/2ML IV (PEPCID) IVP ONE (08:30)
[2020-11-22 08:44] LABS: CLARITY,URINE SL CLOUDY; COLOR,URINE YELLOW; GLUCOSE, URINE (UA) 2+ (NEGATIVE); KETONES,URINE 2+ (NEGATIVE); LEUKOCYTE ESTERASE ,URINE NEGATIVE (NEGATIVE); NITRITE,URINE NEGATIVE (NEGATIVE); PH,URINE 5.5 (5-9); PROTEIN,URINE TRACE (NEGATIVE)
--- NOTE | 2020-11-22 08:59 | ED Abdominal Pain ---
General Chief Complaint: Abdominal/GI Problems Stated Complaint: ABD PAIN Nursing Triage Note: ARRIVED VIA EMS FROM HOME WITH ONGOING PROBLEMS OF NAUSEA/ABDPAIN/DIZZINESS. WAS SEEN AT [facility] YESTERDAY. Sepsis Screen: No Definite Risk Source of Information: Patient, EMS Exam Limitations: No Limitations History of Present Illness Date Seen by Provider: Nov 22, 2020 Time Seen by Provider: 08:22 Initial Comments This 50-year-old woman presents to the emergency room via EMS with complaints of nausea, vomiting, right upper quadrant and epigastric abdominal pain, and dizziness for about 3 days now. She denies any fever. She is emotionally distraught upon arrival and dry heaves after palpation of the abdomen. She presented to the clinic earlier this week and was prescribed promethazine, but this has been ineffective to treat her nausea and vomiting. Allergies and Home Medications Allergies Coded Allergies: lisinopril (Verified Allergy, Mild, COUGH, 11/22/20) montelukast (Verified Allergy, Unknown, UNABLE TO REMEMBER REACTION, 11/22/20) Uncoded Allergies: METALS (Allergy, Unknown, 07/12/14) Home Medications Acetaminophen 325 Mg Tablet, 650 MG PO Q6H PRN for PAIN-MILD, (Reported) Butalb/Acetaminophen/Caffeine 1 Each Tablet, 1 EA PO QID PRN for MIGRAINE, (Reported) Canagliflozin 300 Mg Tablet, 300 MG PO DAILY, (Reported) Docusate Sodium 100 Mg Capsule, 100 MG PO DAILY PRN for CONSTIPATION-1ST LINE, (Reported) Duloxetine HCl 60 Mg Capsule.dr, 60 MG PO DAILY, (Reported) TAKES 30MG +60MG DAILY TO EQUAL 90MG Duloxetine HCl 30 Mg Capsule.dr, 30 MG PO DAILY, (Reported) TAKES 30MG +60MG DAILY TO EQUAL 90MG Gabapentin 600 Mg Tablet, 600 MG PO TID, (Reported) Insulin Detemir 100 Unit/1 Ml Insuln.pen, 15 UNIT SQ HS, (Reported) Nitrofurantoin Macrocrystal 100 Mg Capsule, 100 MG PO BID Prescribed by: OFELIA ZAMORA on 08/17/20 1405 Ondansetron 4 Mg Tab.rapdis, 4 MG PO Q6H PRN for NAUSEA/VOMITING Prescribed by: LUÍS RITCHIE on 11/21/19 1250 Ondansetron 4 Mg Tab.rapdis, 4 MG PO Q6H PRN for NAUSEA/VOMITING Prescribed by: LUÍS RITCHIE on 03/11/20 0245 Ondansetron 4 Mg Tab.rapdis, 4 MG PO Q6H PRN for NAUSEA/VOMITING Prescribed by: OFELIA ZAMORA on 08/17/20 1405 Pantoprazole Sodium 40 Mg Tablet.dr, 40 MG PO DAILY, (Reported) Pioglitazone HCl 45 Mg Tablet, 45 MG PO DAILY, (Reported) Promethazine HCl 25 Mg Tablet, 25 MG PO Q6H PRN for NAUSEA/VOMITING Prescribed by: LUÍS RITCHIE on 03/11/20 0245 Propranolol HCl 60 Mg Tablet, 60 MG PO BID, (Reported) Quetiapine Fumarate 200 Mg Tablet, 200 MG PO HS, (Reported) Spironolactone 25 Mg Tablet, 25 MG PO DAILY, (Reported) Patient Home Medication List Home Medication List Reviewed: Yes Review of Systems Review of Systems Constitutional: no symptoms reported EENTM: No Symptoms Reported Respiratory: No Symptoms Reported Cardiovascular: See HPI Gastrointestinal: See HPI Genitourinary: No Symptoms Reported Musculoskeletal: no symptoms reported Skin: no symptoms reported Psychiatric/Neurological: No Symptoms Reported Endocrine: No Symptoms Reported Hematologic/Lymphatic: No Symptoms Reported Past Rglgbhv-Vsywht-Udkhvu Hx Past Med/Social Hx: Reviewed Nursing Past Med/Soc Hx Patient Social History Type Used: Electronic/Vapor 2nd Hand Smoke Exposure: No Recent Infectious Disease Expo: No Recent Hopitalizations: No Immunizations Up To Date Tetanus Booster (TDap): More than 5yrs Seasonal Allergies Seasonal Allergies: No Past Medical History Surgeries: Yes (D&C; RIGHT KNEE SCOPE X 2; EGD; CARDIAC CATH 2012--NO INTERVENTION) Cardiac, Eye Surgery, Orthopedic Respiratory: Yes Asthma Currently Using CPAP: No Currently Using BIPAP: No Cardiac: Yes (CARDIAC CATH 2012--NORMAL CORONARIES, NO INTERVENTION) Coronary Artery Disease, High Cholesterol, Hypertension Neurological: Yes Headaches /Migraines 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 Disorders: No Female 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 Disorders: Denies 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 Sexually Transmitted Disease: No Genitourinary: Yes Bladder Infection, Kidney Stones, Renal Failure Gastrointestinal: Yes Gastroesophageal Reflux, Hiatal Hernia, Irritable Bowel Musculoskeletal: Yes Fibromyalgia Endocrine: Yes (NON COMPLAINT) Diabetes, Non-Insulin dep HEENT: Yes (EYE SURGERY) Loss of Vision: Denies Hearing Impairment: Denies Cancer: No Psychosocial: Yes (EXTENSIVE PSYCH ISSUES) ADD/ADHD, Sleep Difficulties, Anxiety, PTSD, Depression Integumentary: No Blood Disorders: No Adverse Reaction/Blood Tranf: No Family Medical History Hypertension 19 FATHER CVA, Seizures Physical Exam Vital Signs Vital Signs - First Documented 11/22/20 08:20 Temp 35.7 Pulse 116 Resp 16 B/P (MAP) 116/69 (85) Pulse Ox 97 O2 Delivery Room Air Capillary Refill : Less Than 3 Seconds Height/Weight/BMI Height: 5'3.00" Weight: 240lbs. 2.0oz. 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, no motor/sensory deficits, alert, oriented x 3, other (Emotionally distraught) Skin: normal color, warm/dry Progress/Results/Core Measures Results/Orders Lab Results Laboratory Tests Test 11/22/20 08:38 11/22/20 09:10 Range/Units Urine Color YELLOW Urine Clarity SL CLOUDY Urine pH 5.5 5-9 Urine Specific [place] >=1.030 1.016-1.022 Urine Protein TRACE H NEGATIVE Urine Glucose (UA) 2+ H NEGATIVE Urine Ketones 2+ H NEGATIVE Urine Nitrite NEGATIVE NEGATIVE Urine Bilirubin 2+ H NEGATIVE Urine Urobilinogen 1.0 < = 1.0 MG/DL Urine Leukocyte Esterase NEGATIVE NEGATIVE Urine RBC (Auto) TRACE-I NEGATIVE Urine RBC 0-2 /HPF Urine WBC 5-10 H /HPF Urine Squamous Epithelial Cells 5-10 /HPF Urine Crystals NONE /LPF Urine Bacteria FEW H /HPF Urine Casts NONE /LPF Urine Mucus NEGATIVE /LPF Urine Culture Indicated YES White Blood Count 6.3 4.3-11.0 10^3/uL Red Blood Count 4.76 3.80-5.11 10^6/uL Hemoglobin 12.2 11.5-16.0 g/dL Hematocrit 39 35-52 % Mean Corpuscular Volume 82 80-99 fL Mean Corpuscular Hemoglobin 26 25-34 pg Mean Corpuscular Hemoglobin Concent 31 L 32-36 g/dL Red Cell Distribution Width 17.9 H 10.0-14.5 % Platelet Count 218 130-400 10^3/uL Mean Platelet Volume 10.9 9.0-12.2 fL Immature Granulocyte % (Auto) 0 % Neutrophils (%) (Auto) 68 42-75 % Lymphocytes (%) (Auto) 22 12-44 % Monocytes (%) (Auto) 8 0-12 % Eosinophils (%) (Auto) 1 0-10 % Basophils (%) (Auto) 1 0-10 % Neutrophils # (Auto) 4.3 1.8-7.8 10^3/uL Lymphocytes # (Auto) 1.4 1.0-4.0 10^3/uL Monocytes # (Auto) 0.5 0.0-1.0 10^3/uL Eosinophils # (Auto) 0.1 0.0-0.3 10^3/uL Basophils # (Auto) 0.0 0.0-0.1 10^3/uL Immature Granulocyte # (Auto) 0.0 0.0-0.1 10^3/uL Sodium Level 142 135-145 MMOL/L Potassium Level 3.6 3.6-5.0 MMOL/L Chloride Level 104 98-107 MMOL/L Carbon Dioxide Level 23 21-32 MMOL/L Anion Gap 15 H 5-14 MMOL/L Blood Urea Nitrogen 10 7-18 MG/DL Creatinine 1.19 0.60-1.30 MG/DL Estimat Glomerular Filtration Rate 48 BUN/Creatinine Ratio 8 Glucose Level 139 H 70-105 MG/DL Calcium Level 9.7 8.5-10.1 MG/DL Corrected Calcium 9.5 8.5-10.1 MG/DL Magnesium Level 1.8 1.6-2.4 MG/DL Total Bilirubin 0.7 0.1-1.0 MG/DL Aspartate Amino Transf (AST/SGOT) 18 5-34 U/L Alanine Aminotransferase (ALT/SGPT) 17 0-55 U/L Alkaline Phosphatase 56 40-136 U/L C-Reactive Protein High Sensitivity 0.70 H 0.00-0.50 MG/DL Total Protein 7.8 6.4-8.2 GM/DL Albumin 4.3 3.2-4.5 GM/DL Lipase 20 8-78 U/L My Orders Orders - LENNY BOYKIN MD Cbc With Automated Diff (11/22/20 08:25) Comprehensive Metabolic Panel (11/22/20 08:25) Hs C Reactive Protein (11/22/20 08:25) Lipase (11/22/20 08:25) Magnesium (11/22/20 08:25) Ua Culture If Indicated (11/22/20 08:25) Ed Iv/Invasive Line Start (11/22/20 08:25) Lactated Ringers (Lr 1000 Ml Iv Solution (11/22/20 08:30) Ondansetron Injection (Zofran Injectio (11/22/20 08:30) Famotidine Injection (Pepcid Injection) (11/22/20 08:30) Us Gallbladder [id number] (11/22/20 08:26) Urine Culture (11/22/20 08:38) Scopolamine Patch (Transderm-Scop Patch) (11/22/20 11:15) Abdomen, Flat & Upright/Decub (11/22/20 11:09) Ketorolac Injection (Toradol Injection) (11/22/20 11:15) Ceftriaxone (Rocephin) (11/22/20 13:00) Promethazine Injection (Phenergan Injec (11/22/20 13:00) Ns Iv 500 Ml (Sodium Chloride 0.9%) (11/22/20 13:00) Pantoprazole Injection (Protonix Injecti (11/22/20 13:00) Medications Given in ED Current Medications Medications Dose Ordered Sig/Kate Route Start Time Stop Time Status Last Admin Dose Admin Ceftriaxone Sodium 1000 mg/ Sterile Water 10 ml @ 200 mls/hr ONCE ONCE IV 11/22/20 13:00 11/22/20 13:02 DC 11/22/20 13:06 200 MLS/HR Famotidine 20 mg ONCE ONCE IVP 11/22/20 08:30 11/22/20 08:31 DC 11/22/20 09:09 20 MG Ketorolac Tromethamine 15 mg ONCE ONCE IVP 11/22/20 11:15 11/22/20 11:16 DC 11/22/20 11:15 15 MG Lactated Ringer's 1,000 ml @ 0 mls/hr Q0M ONCE IV 11/22/20 08:30 11/22/20 08:31 DC 11/22/20 09:10 1,000 MLS/HR Ondansetron HCl 8 mg ONCE ONCE IVP 11/22/20 08:30 11/22/20 08:31 DC 11/22/20 09:09 8 MG Pantoprazole 40 mg ONCE ONCE IV 11/22/20 13:00 11/22/20 13:01 DC 11/22/20 13:06 40 MG Promethazine HCl 25 mg ONCE ONCE IVP 11/22/20 13:00 11/22/20 13:01 DC 11/22/20 13:06 25 MG Scopolamine 1.5 mg ONCE ONCE TD 11/22/20 11:15 11/22/20 11:16 DC 11/22/20 11:15 1.5 MG Sodium Chloride 500 ml @ 0 mls/hr Q0M ONCE IV 11/22/20 13:00 11/22/20 13:01 DC 11/22/20 13:06 0 MLS/HR Vital Signs/I&O 11/22/20 08:20 Temp 35.7 Pulse 116 Resp 16 B/P (MAP) 116/69 (85) Pulse Ox 97 O2 Delivery Room Air Blood Pressure Mean: 85 Progress Progress Note #1: Time: 08:59 Progress Note Patient was seen and examined upon arrival. Labs and ultrasound study are pending. Patient is being treated with Pepcid, Zofran, and IV fluids. Progress Note #2: Time: 13:43 Progress Note Work-up has been unremarkable. Gallbladder ultrasound and KUB and upright abdominal x-ray were both negative. Refractory nausea is being treated with scopolamine patch and Phenergan. The Phenergan dosage is not quite done and patient states she cannot tolerate drinking clear liquids. I will wait until the entire dose is infused before determining disposition. Patient has made it very clear she desires admission. She did state a history of ulcers identified by endoscopy. However, she is not taking any antiacid therapy at present even though her filling record states she filled famotidine on November 04. CT scan in this patient is being avoided as she has already had 13 CT scans on record here. This abdominal issue is recurrent and prior CT scans have not showed any acute abdomen pathology requiring surgical/emergent interventions. Rocephin was administered for treatment of urinary tract infection. Diagnostic Imaging Diagonstic Imaging: Ultrasound Plain Films/CT/US/NM/MRI: abdomen Comments NAME: NAE [facility] REC#: [id number] PT STATUS: REG ER : 1970 PHYSICIAN: LENNY BOYKIN MD ADMIT DATE: 11/22/20/ER Draft Date of Exam:11/22/20 US GALLBLADDER [id number] PROCEDURE: US Gallbladder. TECHNIQUE: Multiple real-time grayscale images were obtained over the right upper quadrant in various projections. INDICATION: Right upper quadrant pain with nausea and vomiting. FINDINGS: Liver is normal in size at 16 cm. There is some generalized increased echogenicity throughout the liver consistent with hepatic steatosis. No discrete liver mass is identified. The gallbladder is without stones or sludge. No wall thickening or biliary ductal dilatation is seen. Pancreas is unremarkable. Aorta and IVC are unremarkable. Right kidney is without calculi or hydronephrosis. There is no ascites. IMPRESSION: 1. Hepatic steatosis. 2. No evidence of cholelithiasis or acute cholecystitis. Dictated on workstation # [id number] Dict: 11/22/20916 Trans: 11/22/20 20 [id number] Interpreted by: CHU MEYER MD Diagonstic Imaging: Xray Plain Films/CT/US/NM/MRI: abdomen, pelvis Comments NAME: NAE [facility] REC#: [id number] PT STATUS: REG ER : 1970 PHYSICIAN: LENNY BOYKIN MD ADMIT DATE: 11/22/20/ER Draft Date of Exam:11/22/20 ABDOMEN, FLAT & UPRIGHT/DECUB Supine and erect abdomen at 1151h. INDICATION: Abdominal pain There is some gas in both the large and small bowel in a nonspecific fashion. This appearance is similar to the prior acute abdomen series of 08/17/2020. There is still no evidence for bowel obstruction. There is no sign of a pneumoperitoneum on the erect film either. There is no mass organomegaly or pathological calcifications evident. The osseous structures are intact. IMPRESSION: The bowel gas pattern is nonspecific. There is no acute abnormality identified. Dictated on workstation # [id number] Dict: 11/22/20 1153 Trans: 11/22/20 1211 [facility] [id number] Interpreted by: MARI PACE MD Departure Communication (Admissions) Time/Spoke to Admitting Phy: 14:25 Dr. Cheung Time/Spoke to Consulting Phy: 14:30 Dr. Saunders Impression Primary Impression: Upper abdominal pain Additional Impressions: Nausea and vomiting Qualified Codes: R11.2 - Nausea with vomiting, unspecified Noncompliance Urinary tract infection Qualified Codes: N39.0 - Urinary tract infection, site not specified Disposition: ADMITTED INPATIENT Condition: Stable Admissions Decision to Admit Reason: Admit from ER (General) Decision to Admit/Date: Nov 22, 2020 Time/Decision to Admit Time: 14:20 Departure-Patient Inst. Referrals: [facility] (PCP) Primary Care Physician ALISON STAPLES (Family) Primary Care Physician LENNY BOYKIN MD Nov 22, 2020 08:59
--- NOTE | 2020-11-22 09:20 | Diagnostic Imaging Report ---
PROCEDURE: US Gallbladder. TECHNIQUE: Multiple real-time grayscale images were obtained over the right upper quadrant in various projections. INDICATION: Right upper quadrant pain with nausea and vomiting. FINDINGS: Liver is normal in size at 16 cm. There is some generalized increased echogenicity throughout the liver consistent with hepatic steatosis. No discrete liver mass is identified. The gallbladder is without stones or sludge. No wall thickening or biliary ductal dilatation is seen. Pancreas is unremarkable. Aorta and IVC are unremarkable. Right kidney is without calculi or hydronephrosis. There is no ascites. IMPRESSION: 1. Hepatic steatosis. 2. No evidence of cholelithiasis or acute cholecystitis. Dictated by: Dictated on workstation # [id number]
[2020-11-22 09:24] LABS: BASOPHILS % (AUTO) 1 % (0-10); EOSINOPHILS # (AUTO) 0.1 10^3/uL (0.0-0.3); EOSINOPHILS % (AUTO) 1 % (0-10); HEMATOCRIT 39 % (35-52); HEMOGLOBIN 12.2 g/dL (11.5-16.0); LYMPHOCYTES # (AUTO) 1.4 10^3/uL (1.0-4.0); LYMPHOCYTES % (AUTO) 22 % (12-44); MEAN CORPUSCULAR HEMOGLOBIN 26 pg (25-34); MEAN CORPUSCULAR HGB CONC 31 g/dL (32-36); MEAN CORPUSCULAR VOLUME 82 fL (80-99); MEAN PLATELET VOLUME 10.9 fL (9.0-12.2); MONOCYTES # (AUTO) 0.5 10^3/uL (0.0-1.0); MONOCYTES % (AUTO) 8 % (0-12); NEUTROPHILS # (AUTO) 4.3 10^3/uL (1.8-7.8); NEUTROPHILS % (AUTO) 68 % (42-75); PLATELET COUNT 218 10^3/uL (130-400); WHITE BLOOD COUNT 6.3 10^3/uL (4.3-11.0)
[2020-11-22 09:28] LABS: BACTERIA,URINE FEW /HPF; BILIRUBIN,URINE 2+ (NEGATIVE); RBC,URINE 0-2 /HPF
[2020-11-22 09:29] LABS: ALBUMIN 4.3 GM/DL (3.2-4.5)
[2020-11-22 09:30] LABS: POTASSIUM 3.6 MMOL/L (3.6-5.0)
[2020-11-22 09:31] LABS: CALCIUM 9.7 MG/DL (8.5-10.1)
[2020-11-22 09:32] LABS: TOTAL PROTEIN 7.8 GM/DL (6.4-8.2)
[2020-11-22 09:34] LABS: BILIRUBIN,TOTAL 0.7 MG/DL (0.1-1.0)
[2020-11-22 09:36] LABS: CREATININE SERUM 1.19 MG/DL (0.60-1.30)
[2020-11-22 09:39] LABS: MAGNESIUM 1.8 MG/DL (1.6-2.4)
[2020-11-22] MEDS ORDERED: SCOPOLAMINE 1.5 MG (TRANSDERM-SCOP) PATCH TD ONE (11:15)
[2020-11-22] MEDS ORDERED: KETOROLAC 30 MG/ML VIAL IVP ONE (11:15)
--- NOTE | 2020-11-22 12:12 | Diagnostic Imaging Report ---
Supine and erect abdomen at 1151h. INDICATION: Abdominal pain There is some gas in both the large and small bowel in a nonspecific fashion. This appearance is similar to the prior acute abdomen series of 08/17/2020. There is still no evidence for bowel obstruction. There is no sign of a pneumoperitoneum on the erect film either. There is no mass organomegaly or pathological calcifications evident. The osseous structures are intact. IMPRESSION: The bowel gas pattern is nonspecific. There is no acute abnormality identified. Dictated by: Dictated on workstation # [id number]
[2020-11-22] MEDS ORDERED: cefTRIAXone 1,000 MG in WATER (STERILE) FOR INJECTION 10 ML IV ONE (13:00)
[2020-11-22] MEDS ORDERED: PROMETHAZINE INJ 25 MG/ML (PHENERGAN) AMP IVP ONE (13:00)
[2020-11-22] MEDS ORDERED: PANTOPRAZOLE 40 MG (PROTONIX) VIAL IV ONE (13:00)
[2020-11-22] MEDS ORDERED: NS IV 500 ML 500 ML IV ONE (13:00)
[2020-11-22] MEDS ORDERED: PROMETHAZINE INJ 25 MG/ML (PHENERGAN) AMP IV PRN (16:45)
[2020-11-22] MEDS ORDERED: ONDANSETRON 4 MG/2 ML (SDV) Z0FRAN IV PRN (16:45)
[2020-11-22 16:53] VITALS: BP 120/83
--- NOTE | 2020-11-22 16:56 | Consultation - Surgery ---
History of Present Illness History of Present Illness Patient Consulted On(kristen/time) 11/22/20 16:56 Date Seen by Provider: Nov 22, 2020 Time Seen by Provider: 16:56 History of Present Illness This 50-year-old woman presents to the emergency room via EMS with complaints of nausea, vomiting, right upper quadrant and epigastric abdominal pain, and dizziness for about 3 days now. She denies any fever. She is emotionally distraught upon arrival and dry heaves after palpation of the abdomen. She presented to the clinic earlier this week and was prescribed promethazine, but this has been ineffective to treat her nausea and vomiting. Allergies and Home Medications Allergies Coded Allergies: lisinopril (Verified Allergy, Mild, COUGH, 11/22/20) montelukast (Verified Allergy, Unknown, UNABLE TO REMEMBER REACTION, 11/22/20) Uncoded Allergies: METALS (Allergy, Unknown, 07/12/14) Home Medications Acetaminophen 325 Mg Tablet, 650 MG PO Q6H PRN for PAIN-MILD, (Reported) Butalb/Acetaminophen/Caffeine 1 Each Tablet, 1 EA PO QID PRN for MIGRAINE, (Reported) Canagliflozin 300 Mg Tablet, 300 MG PO DAILY, (Reported) Docusate Sodium 100 Mg Capsule, 100 MG PO DAILY PRN for CONSTIPATION-1ST LINE, (Reported) Duloxetine HCl 60 Mg Capsule.dr, 60 MG PO DAILY, (Reported) TAKES 30MG +60MG DAILY TO EQUAL 90MG Duloxetine HCl 30 Mg Capsule.dr, 30 MG PO DAILY, (Reported) TAKES 30MG +60MG DAILY TO EQUAL 90MG Gabapentin 600 Mg Tablet, 600 MG PO TID, (Reported) Insulin Detemir 100 Unit/1 Ml Insuln.pen, 15 UNIT SQ HS, (Reported) Nitrofurantoin Macrocrystal 100 Mg Capsule, 100 MG PO BID Prescribed by: OFELIA ZAMORA on 08/17/20 1405 Ondansetron 4 Mg Tab.rapdis, 4 MG PO Q6H PRN for NAUSEA/VOMITING Prescribed by: LUÍS RITCHIE on 11/21/19 1250 Ondansetron 4 Mg Tab.rapdis, 4 MG PO Q6H PRN for NAUSEA/VOMITING Prescribed by: LUÍS RITCHIE on 03/11/20 0245 Ondansetron 4 Mg Tab.rapdis, 4 MG PO Q6H PRN for NAUSEA/VOMITING Prescribed by: OFELIA ZAMORA on 08/17/20 1405 Pantoprazole Sodium 40 Mg Tablet.dr, 40 MG PO DAILY, (Reported) Pioglitazone HCl 45 Mg Tablet, 45 MG PO DAILY, (Reported) Promethazine HCl 25 Mg Tablet, 25 MG PO Q6H PRN for NAUSEA/VOMITING Prescribed by: LUÍS RITCHIE on 03/11/20 0245 Propranolol HCl 60 Mg Tablet, 60 MG PO BID, (Reported) Quetiapine Fumarate 200 Mg Tablet, 200 MG PO HS, (Reported) Spironolactone 25 Mg Tablet, 25 MG PO DAILY, (Reported) Patient Home Medication List Home Medication List Reviewed: Yes Past Wmkcukb-Bxdqqx-Zwtapo Hx Patient Social History Smoking Status: Never a Smoker Type Used: Electronic/Vapor 2nd Hand Smoke Exposure: No Recent Hopitalizations: No Alcohol Use?: No Have you traveled recently?: No Immunizations Up To Date Tetanus Booster (TDap): More than 5yrs Seasonal Allergies Seasonal Allergies: No Surgeries History of Surgeries: Yes (D&C; RIGHT KNEE SCOPE X 2; EGD; CARDIAC CATH 2012--NO INTERVENTION) Surgeries: Cardiac, Eye Surgery, Orthopedic Respiratory History of Respiratory Disorde: Yes Respiratory Disorders: Asthma Cardiovascular History of Cardiac Disorders: Yes (CARDIAC CATH 2012--NORMAL CORONARIES, NO INTERVENTION) Cardiac Disorders: Coronary Artery Disease, High Cholesterol, Hypertension Neurological History of Neurological Disord: Yes Neurological Disorders: Headaches /Migraines 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 System Hx 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 Disorders: No Sexually Transmitted Disease: No Female 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 Disorders: Denies 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 Genitourinary History of Genitourinary Disor: Yes Genitourinary Disorders: Bladder Infection, Kidney Stones, Renal Failure Gastrointestinal History of Gastrointestinal Di: Yes Gastrointestinal Disorders: Gastroesophageal Reflux, Hiatal Hernia, Irritable Bowel Musculoskeletal History of Musculoskeletal Dis: Yes Musculoskeletal Disorders: Fibromyalgia Endocrine History of Endocrine Disorders: Yes (NON COMPLAINT) Endocrine Disorders: Diabetes, Non-Insulin dep HEENT History of HEENT Disorders: Yes (EYE SURGERY) Loss of Vision: Denies Hearing Impairment: Denies Cancer History of Cancer: No Psychosocial History of Psychiatric Problem: Yes (EXTENSIVE PSYCH ISSUES) Behavioral Health Disorders: ADD/ADHD, Sleep Difficulties, Anxiety, PTSD, Depression Integumentary History of Skin or Integumenta: No Blood Transfusions History of Blood Disorders: No Adverse Reaction to a Blood Tr: No Reviewed Nursing Assessment Reviewed/Agree w Nursing PMH: Yes Family Medical History Significant Family History: No Pertinent Family Hx, CVA, Seizures Family Medial History: Hypertension 19 FATHER Review of Systems-General Constitutional: No chills, No fever EENTM: No blurred vision, No double vision Respiratory: No cough, No short of breath Gastrointestinal: abdominal pain, heartburn, nausea, vomiting Genitourinary: see HPI; No decreased output, No discharge Musculoskeletal: No back pain, No joint pain Skin: No change in color, No change in hair/nails Psychiatric/Neurological: Denies Anxiety, Denies Depressed, Denies Emotional Problems All Other Systems Reviewed Negative Unless Noted: Yes (Negative excepted noted.) Physical Exam-General Problems Physical Exam Vital Signs Vital Signs - First Documented 11/22/20 08:20 Temp 35.7 Pulse 116 Resp 16 B/P (MAP) 116/69 (85) Pulse Ox 97 O2 Delivery Room Air Capillary Refill : Less Than 3 Seconds General Appearance: obese, other (Patient upon entering her room was calm and collected. She had several episodes of abrupt nausea with dry heaving) HEENT: PERRL/EOMI, normal ENT inspection Neck: non-tender, supple Respiratory: chest non-tender, no respiratory distress, no accessory muscle use Cardiovascular: regular rate, rhythm, no JVD Gastrointestinal: soft; No distended; tenderness (epigastric tenderness, seems to vary on exam with distratction ) Rectal: deferred Back: normal inspection, no CVA tenderness Extremities: non-tender, normal inspection Neurologic/Psychiatric: no motor/sensory deficits, alert; No normal mood/affect; oriented x 3 Skin: normal color, warm/dry Lymphatic: no adenopathy Data Review Labs Laboratory Tests 11/22/20 08:38: Urine Color YELLOW, Urine Clarity SL CLOUDY, Urine pH 5.5, Urine Specific [place] >=1.030, Urine Protein TRACEH, Urine Glucose (UA) 2+H, Urine Ketones 2+H , Urine Nitrite NEGATIVE, Urine Bilirubin 2+H, Urine Urobilinogen 1.0, Urine Leukocyte Esterase NEGATIVE, Urine RBC (Auto) TRACE-I, Urine RBC 0-2, Urine WBC 5-10H, Urine Squamous Epithelial Cells 5-10, Urine Crystals NONE, Urine Bacteria FEWH, Urine Casts NONE, Urine Mucus NEGATIVE, Urine Culture Indicated YES 11/22/20 09:10: White Blood Count 6.3, Red Blood Count 4.76, Hemoglobin 12.2, Hematocrit 39, Mean Corpuscular Volume 82, Mean Corpuscular Hemoglobin 26, Mean Corpuscular Hemoglobin Concent 31L, Red Cell Distribution Width 17.9H, Platelet Count 218, Mean Platelet Volume 10.9, Immature Granulocyte % (Auto) 0, Neutrophils (%) (Auto) 68, Lymphocytes (%) (Auto) 22, Monocytes (%) (Auto) 8, Eosinophils (%) (Auto) 1, Basophils (%) (Auto) 1, Neutrophils # (Auto) 4.3, Lymphocytes # (Auto) 1.4, Monocytes # (Auto) 0.5, Eosinophils # (Auto) 0.1, Basophils # (Auto) 0.0, Immature Granulocyte # (Auto) 0.0, Sodium Level 142, Potassium Level 3.6, Chloride Level 104, Carbon Dioxide Level 23, Anion Gap 15H, Blood Urea Nitrogen 10, Creatinine 1.19, Estimat Glomerular Filtration Rate 48, BUN/Creatinine Ratio 8, Glucose Level 139H, Calcium Level 9.7, Corrected Calcium 9.5, Magnesium Level 1.8, Total Bilirubin 0.7, Aspartate Amino Transf (AST/SGOT) 18, Alanine Aminotransferase (ALT/SGPT) 17, Alkaline Phosphatase 56, C-Reactive Protein High Sensitivity 0.70H, Total Protein 7.8, Albumin 4.3, Lipase 20 Assessment/Plan Assessment/Plan Assessment/Plan Intractable nausea and vomiting Epigastric abdominal pain Hiatal hernia GERD Chronic gastritis Patient on Pepcid and Protonix. Nausea and pain control Clear liquid diet. Reviewed ultrasound and abdominal x-ray and results with patient which she understands. We will continue with conservative measures. Feel this is most likely related to her chronic gastritis. Conservative measures. No surgical i ntervention at this time. MONICA LUNDY DO Nov 22, 2020 16:56
[2020-11-22] MEDS: LACTATED RINGERS 1,000 ML IV SCH (17:20)
[2020-11-22 19:40] VITALS: BP 120/80
[2020-11-22] MEDS ORDERED: inSUlin ASPART (NovoLOG) 1 UNIT/0.01 ML (CHARGE PER UNIT) SC SCH (20:00)
[2020-11-22] MEDS: FAMOTIDINE 20MG/2ML IV (PEPCID) IV SCH (20:08)
[2020-11-22] MEDS: inSUlin ASPART (NovoLOG) 1 UNIT/0.01 ML (CHARGE PER UNIT) SC SCH (20:10)
[2020-11-23 00:16] VITALS: BP 123/84
[2020-11-23] MEDS: LACTATED RINGERS 1,000 ML IV SCH ×2 (00:48→08:54)
[2020-11-23 04:14] VITALS: BP 135/83
[2020-11-23] MEDS: inSUlin ASPART (NovoLOG) 1 UNIT/0.01 ML (CHARGE PER UNIT) SC SCH ×2 (05:12→11:09)
--- NOTE | 2020-11-23 05:56 | History & Physical-Hospitalist ---
History of Present Illness Date Seen 11/23/20 Attending Physician Aye Cheung DO [facility] Referring Physician Date of Admission Nov 22, 2020 at 14:34 Home Medications & Allergies Home Medications Reviewed patient Home Medication Reconciliation performed by pharmacy medication reconciliations chemical laboratory technician and/or nursing. Patients Allergies have been reviewed. Allergies Allergies Coded Allergies lisinopril (Verified Allergy, Mild, COUGH, 11/22/20) montelukast (Verified Allergy, Unknown, UNABLE TO REMEMBER REACTION, 11/22/20) Uncoded Allergies METALS ( Allergy, Unknown, 07/12/14) Past Dripdbr-Abkqds-Hbcwkg Hx Patient Social History Tobacco Use?: No Smoking Status: Never a Smoker Smokeless Tobacco Frequency: Never a User Use of E-Cig and/or Vaping dev: No Use of E-Cig and/or Vaping Srinivasa: Never a User Substance use?: No Alcohol Use?: No Pt feels they are or have been: No Immunizations Up To Date Tetanus Booster (TDap): Unknown Hepatitis A: No Hepatitis B: No Seasonal Allergies Seasonal Allergies: No Current Status status: No status: No Advance Directives: No Advance Directive Location: Home Communicates: Verbally Primary Language: Swedish Preferred Spoken Language: Swedish Is interpretation needed?: No Sensory deficits: Vision impairment Implanted or Applied Medical D: None Past Medical History Surgeries: Cardiac, Eye Surgery, Orthopedic Asthma Currently Using CPAP: No Currently Using BIPAP: No Coronary Artery Disease, High Cholesterol, Hypertension 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 /Migraines 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 Sexually Transmitted Disease: No Bladder Infection, Kidney Stones, Renal Failure Gastroesophageal Reflux, Hiatal Hernia, Irritable Bowel Fibromyalgia Diabetes, Non-Insulin dep Loss of Vision: Denies Hearing Impairment: Denies ADD/ADHD, Sleep Difficulties, Anxiety, PTSD, Depression Blood Disorders: No Adverse Reaction/Blood Tranf: No PMHx: DMII HTN Fibromyalgia Anxiety PTSD PSurgHx: Knee scope x 2 Eye surgery Family Medical History Hypertension 19 FATHER No Pertinent Family Hx, CVA, Seizures Physical Exam Physical Exam Vital Signs Vital Signs - First Documented 11/22/20 08:20 Temp 35.7 Pulse 116 Resp 16 B/P (MAP) 116/69 (85) Pulse Ox 97 O2 Delivery Room Air Capillary Refill : Less Than 3 Seconds Height, Weight, BMI Height: 5'3.00" Weight: 240lbs. 2.0oz. 108.318449jj; 48.75 BMI Method:Stated Results Results/Procedures Labs Laboratory Tests 11/22/20 09:10 11/23/20 05:44 Patient resulted labs reviewed. AYE CHEUNG 18, 2021 05:56
[2020-11-23 05:57] LABS: BASOPHILS % (AUTO) 1 % (0-10); EOSINOPHILS # (AUTO) 0.2 10^3/uL (0.0-0.3); EOSINOPHILS % (AUTO) 3 % (0-10); HEMATOCRIT 35 % (35-52); HEMOGLOBIN 10.7 g/dL (11.5-16.0); LYMPHOCYTES # (AUTO) 1.5 10^3/uL (1.0-4.0); LYMPHOCYTES % (AUTO) 28 % (12-44); MEAN CORPUSCULAR HEMOGLOBIN 26 pg (25-34); MEAN CORPUSCULAR HGB CONC 31 g/dL (32-36); MEAN CORPUSCULAR VOLUME 84 fL (80-99); MONOCYTES # (AUTO) 0.5 10^3/uL (0.0-1.0); MONOCYTES % (AUTO) 9 % (0-12); NEUTROPHILS # (AUTO) 3.1 10^3/uL (1.8-7.8); NEUTROPHILS % (AUTO) 59 % (42-75); PLATELET COUNT 186 10^3/uL (130-400); WHITE BLOOD COUNT 5.3 10^3/uL (4.3-11.0)
[2020-11-23 06:06] LABS: POTASSIUM 3.4 MMOL/L (3.6-5.0)
[2020-11-23 06:07] LABS: CALCIUM 8.9 MG/DL (8.5-10.1)
[2020-11-23 06:11] LABS: CREATININE SERUM 1.01 MG/DL (0.60-1.30)
[2020-11-23 07:58] VITALS: BP 150/70
[2020-11-23] MEDS: FAMOTIDINE 20MG/2ML IV (PEPCID) IV SCH (08:52)
[2020-11-23] MEDS ORDERED: PANTOPRAZOLE 40 MG (PROTONIX) VIAL IV SCH (09:00)
[2020-11-23] MEDS ORDERED: cefTRIAXone 1,000 MG/SWFI 10 ML IV PUSH IV SCH ×2 (09:00)
--- NOTE | 2020-11-23 11:38 | Short Stay Summary-Hospitalist ---
History of Present Illness HPI/Chief Complaint Chief complaint: Nausea and vomiting with UTI History of present illness: This is a 50-year-old white female clinic patient of [facility] who has a past medical history of UTIs with difficulty with nausea and vomiting following the acute illness. She was placed on IV fluids overnight and antiemetics and she was able to improve enough to be discharged with Zofran antibiotic and promethazine suppositories and maintain the scopolamine patch for another 2 days. Source: patient Exam Limitations: no limitations Date Seen 11/23/20 Time Seen by a Provider: 11:00 Attending Physician Aye Cheung DO [facility] Referring Physician Date of Admission Nov 22, 2020 at 14:34 Home Medications & Allergies Home Medications Reviewed patient Home Medication Reconciliation performed by pharmacy medication reconciliations health information systems technician and/or nursing. Patients Allergies have been reviewed. Allergies Allergies Coded Allergies lisinopril (Verified Allergy, Mild, COUGH, 11/22/20) montelukast (Verified Allergy, Unknown, UNABLE TO REMEMBER REACTION, 11/22/20) Uncoded Allergies METALS ( Allergy, Unknown, 07/12/14) Past Uxgmdds-Mfzeep-Sibcpr Hx Patient Social History Marrital Status: single Employed/Student: unemployed Tobacco Use?: No Smoking Status: Never a Smoker Smokeless Tobacco Frequency: Never a User Use of E-Cig and/or Vaping dev: No Use of E-Cig and/or Vaping Sriniavsa: Never a User Substance use?: No Alcohol Use?: No Pt feels they are or have been: No Immunizations Up To Date Tetanus Booster (TDap): Unknown Hepatitis A: No Hepatitis B: No Seasonal Allergies Seasonal Allergies: No Current Status status: No status: No Advance Directives: No Advance Directive Location: Home Communicates: Verbally Primary Language: Montenegrin Preferred Spoken Language: Montenegrin Is interpretation needed?: No Sensory deficits: Vision impairment Implanted or Applied Medical D: None Past Medical History Surgeries: Cardiac, Eye Surgery, Orthopedic Asthma Currently Using CPAP: No Currently Using BIPAP: No Coronary Artery Disease, High Cholesterol, Hypertension 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 /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 Sexually Transmitted Disease: No Bladder Infection, Kidney Stones, Renal Failure Gastroesophageal Reflux, Hiatal Hernia, Irritable Bowel Fibromyalgia Diabetes, Non-Insulin dep Loss of Vision: Denies Hearing Impairment: Denies ADD/ADHD, Sleep Difficulties, Anxiety, PTSD, Depression Blood Disorders: No Adverse Reaction/Blood Tranf: No PMHx: DMII HTN Fibromyalgia Anxiety PTSD PSurgHx: Knee scope x 2 Eye surgery Family Medical History Hypertension 19 FATHER No Pertinent Family Hx, CVA, Seizures Review of Systems Constitutional: see HPI Gastrointestinal: nausea, vomiting Physical Exam Physical Exam Vital Signs Vital Signs - First Documented 11/22/20 08:20 Temp 35.7 Pulse 116 Resp 16 B/P (MAP) 116/69 (85) Pulse Ox 97 O2 Delivery Room Air Capillary Refill : Less Than 3 Seconds Height, Weight, BMI Height: 5'3.00" Weight: 240lbs. 2.0oz. 108.254149re; 48.75 BMI Method:Stated General Appearance: No Apparent Distress, WD/WN, Chronically ill, Obese Respiratory: Lungs Clear Cardiovascular: Regular Rate, Rhythm Neurologic/Psychiatric: Alert, Oriented x3 Results Results/Procedures Labs Laboratory Tests 11/23/20 05:44 Patient resulted labs reviewed. Short Stay Diagnosis Discharge Diagnosis-Short Stay Admission Diagnosis Refractory nausea and vomiting UTI Obesity Hypertension Final Discharge Diagnosis Refractory nausea and vomiting UTI Obesity Hypertension Conclusion Plan Discharge home AYE CHEUNG DO Nov 23, 2020 11:38
[2020-11-23 11:44] VITALS: BP 140/82
[2020-11-23] MEDS ORDERED: CEFD300C3 PO (12:16)
[2020-11-23] MEDS ORDERED: ONDA8TAB13 PO (12:16)
[2020-11-23] MEDS ORDERED: PROM25SU44 RC (12:16)
[2020-11-23 13:00] VITALS: BP 140/82
--- NOTE | 2020-11-23 13:53 | Physical Therapy Evaluation ---
PT Evaluation-General Medical Diagnosis Admission Date Nov 22, 2020 at 14:34 Medical Diagnosis: abdominal pain/UTI Onset Date: Nov 22, 2020 Therapy Diagnosis Therapy Diagnosis: debility Height/Weight Height (Feet): 5 Height (Inches): 3.00 Weight (Pounds): 240 Weight (Ounces): 2.0 Precautions Precautions/Isolations: Fall Prevention Referral Physician: Jonatan Reason for Referral: Evaluation/Treatment Medical History Pertinent Medical History: CAD, DM, HTN Current History EMS secondary to N/V and dizziness Reviewed History: Yes Social History Home: Apartment Current Living Status: Alone Prior Prior Level of Function SCALE: Activities may be completed with or without assistive devices. 2-Hfbjxjwguy-islprmt completes the activity by him/herself with no assistance from a helper. 5-Set-up or Clean-up Assistance-helper sets up or cleans up; patient completes activity. [place] assists only prior to or following the activity. 4-Supervision or Touching Assistance-helper provides verbal cues and/or touching/steadying and/or contact guard assistance as patient completes activity. Assistance may be provided throughout the activity or intermittently. 3-Partial/Moderate Assistance-helper does LESS THAN HALF the effort. [place] lifts, holds or supports trunk or limbs, but provides less than half the effort. 2-Substantial/Maximal Assistance-helper does MORE THAN HALF the effort. [place] lifts or holds trunk or limbs and provides more than half the effort. 5-Eufbqobcc-dqhpju does ALL the effort. Patient does none of the effort to complete the activity. Or, the assistance of 2 or more helpers is required for the patient to complete the activity. If activity was not attempted, code reason: 7-Patient Refused. 9-Not Applicable-not attempted and the patient did not perform the activity befo re the current illness, exacerbation or injury. 10-Not Attempted due to Environmental Limitations-(lack of equipment, weather re straints, etc.). 88-Not Attempted due to Medical Conditions or Safety Concerns. Bed Mobility: 6 Transfers (B,C,W/C): 6 Gait: 6 Indoor Mobility (Ambulation): Independent Prior Devices Use: Walker PT Evaluation-Current Subjective Patient agrees to PT. She report she is going home today. Objective Patient Orientation: Normal For Age ROM/Strength ROM Lower Extremities bilateral LE WFL Strength Lower Extremities 4/5 grossly bilateral LE Integumentary/Posture Bowel Incontinence: No Bladder Incontinence: No Posture WFL Neuromuscular (Tone, Coordination, Reflexes) grossly intact Sensory Vision: Wears Glasses Hearing: Functional Transfers Lying to Sitting/Side of Bed(Q: 6 Sit to Stand (QC): 6 Chair/Ktf-ch-Prmxh Xfer(QC): 6 Toilet Transfer (QC): 6 Gait Does the Patient Walk?: Yes Mode of Locomotion: Walk Anticipated Mode of Locomotion: Walk Walk 10 feet (QC): 6 Walk 50 ft with 2 Turns(QC): 6 Walk 150 ft (QC): 6 Distance: 250' Gait Assistive Device: Walker 4 Wheeled Comments/Gait Description safe and functional with no deviation Balance Sitting Static: Normal Sitting Dynamic: Normal Standing Static: Normal Standing Dynamic: Normal Picking up an Object (QC): 6 Assessment/Needs 50 y.o. female, is currently at [facility] with all gross motor skills and does not require skilled therapy intervention. Rehab Potential: Fair PT Plan Treatment/Plan Treatment Plan: Discontinue PT, goals met Treatment Duration: Nov 23, 2020 Frequency: 1 time per week Estimated Hrs Per Day: .25 hour per day Patient and/or Family Agrees t: Yes Time/GCodes Time In: 1315 Time Out: 1327 Total Billed Treatment Time: 12 Total Billed Treatment 1 visit EVLow 12 min KISHA SANCHEZ PT Nov 23, 2020 13:53
--- NOTE | 2020-11-23 16:48 | Progress Note - Surgery ---
Subjective Date Seen by a Provider: Nov 23, 2020 Time Seen by a Provider: 12:38 Subjective/Events-last exam Patient feeling better today. She has minimal nausea, no emesis. She states shes been able to tolerate lunch. Denies fever sweats chills shortness of breath or chest pain. Objective Exam Vital Signs Date Time Temp Pulse Resp B/P (MAP) Pulse Ox O2 Delivery O2 Flow Rate FiO2 11/23/20 13:00 36.3 93 20 140/82 94 Room Air 11/23/20 11:44 36.3 93 20 140/82 (101) 94 Room Air 11/23/20 08:00 97 Room Air 11/23/20 07:58 36.1 83 20 150/70 (96) 97 Room Air 11/23/20 04:14 36.0 89 18 135/83 (100) 98 Room Air 11/23/20 00:16 36.1 98 18 123/84 (97) 98 Room Air 11/22/20 20:00 Room Air 11/22/20 19:40 36.3 90 20 120/80 (93) 97 Room Air 11/22/20 18:53 Room Air 11/22/20 17:12 Room Air 11/22/20 16:53 36.4 98 22 120/83 (95) 96 Room Air l I & O 11/23/20 07:00 Intake Total 2120 ml Balance 2120 ml Capillary Refill : Less Than 3 Seconds General Appearance: No Apparent Distress, WD/WN HEENT: PERRL/EOMI, Normal ENT Inspection Neck: Full Range of Motion, Non Tender Respiratory: Chest Non Tender, No Accessory Muscle Use, No Respiratory Distress Cardiovascular: Regular Rate, Rhythm, No JVD Gastrointestinal: normal bowel sounds, non tender, soft Extremity: Non Tender, No Calf Tenderness Neurologic/Psychiatric: Alert, Oriented x3, No Motor/Sensory Deficits, Normal Mood/Affect Skin: Normal Color, Warm/Dry Lymphatic: No Adenopathy Results Lab Laboratory Tests 11/22/20 19:45: Glucometer 80 11/23/20 05:00: Glucometer 88 11/23/20 05:44: White Blood Count 5.3, Red Blood Count 4.16, Hemoglobin 10.7L, Hematocrit 35, Mean Corpuscular Volume 84, Mean Corpuscular Hemoglobin 26, Mean Corpuscular Hemoglobin Concent 31L, Red Cell Distribution Width 18.0H, Platelet Count 186, Mean Platelet Volume 11.0, Immature Granulocyte % (Auto) 0, Neutrophils (%) (Auto) 59, Lymphocytes (%) (Auto) 28, Monocytes (%) (Auto) 9, Eosinophils (%) (Auto) 3, Basophils (%) (Auto) 1, Neutrophils # (Auto) 3.1, Lymphocytes # (Auto) 1.5, Monocytes # (Auto) 0.5, Eosinophils # (Auto) 0.2, Basophils # (Auto) 0.0, Immature Granulocyte # (Auto) 0.0, Sodium Level 141, Potassium Level 3.4L, Chloride Level 107, Carbon Dioxide Level 21, Anion Gap 13, Blood Urea Nitrogen 10, Creatinine 1.01, Estimat Glomerular Filtration Rate 58, BUN/Creatinine Ratio 10, Glucose Level 99, Calcium Level 8.9 11/23/20 11:00: Glucometer 93 Microbiology 11/22/20 Urine Culture - Preliminary, Resulted Escherichia coli Mixed Bacterial Angela Assessment/Plan Assessment/Plan Assessment/Plan Intractable nausea and vomiting Epigastric abdominal pain Hiatal hernia GERD Chronic gastritis Patient on Pepcid and Protonix. Nausea and pain control diet as tolerates, shes tolerated lunch and wanting to go home okay with DC home discussed her with follow up with Dr. Gill to consider doing egd MONICA LUNDY DO Nov 23, 2020 16:48
[2020-11-25] MEDS ORDERED: SCOPOLAMINE PATCH REMOVAL TP SCH (11:00)
== END 2020-11-23 15:05 | disposition home or self-care (01) ==
LOC: EDUNIT# 08:20 → ER 08:21 → 4TH 14:34
PROVIDERS: ADMIT Internal Medicine; ATTEND Internal Medicine
DX: R11.2 Nausea with vomiting, unspecified (principal); N39.0 Urinary tract infection, site not specified; I10 Essential (primary) hypertension; J45.909 Unspecified asthma, uncomplicated; E78.00 Pure hypercholesterolemia, unspecified; G43.909 Migraine, unspecified, not intractable, without status migrainosus; K21.9 Gastro-esophageal reflux disease without esophagitis; K44.9 Diaphragmatic hernia without obstruction or gangrene; E11.9 Type 2 diabetes mellitus without complications; F41.9 Anxiety disorder, unspecified; F32.9 Major depressive disorder, single episode, unspecified; F43.10 Post-traumatic stress disorder, unspecified; K76.0 Fatty (change of) liver, not elsewhere classified; E66.9 Obesity, unspecified; Z68.42 Body mass index [BMI] 45.0-49.9, adult; Z79.4 Long term (current) use of insulin; Z79.899 Other long term (current) drug therapy
CPT/HCPCS: 74019; 76705; 80048; 80053; 81000; 82947 ×2; 83690; 83735; 85025 ×2; 86141; 87077; 87088; 87186; 96374; 96375; 97161; 99284; G0378; 36415

== ENCOUNTER 2020-11-25 08:06 | Emergency (ER) | payer MEDICARE, MEDICAID ==
[~2020-11-25] VITALS: Ht 160 cm; Wt 123.0 kg
[~2020-11-25 08:06] MED LIST changes: +CEFD300C3 PO; -MIRT-69 PO; +MIRT30TA6 PO; +ONDA8TAB13 PO; +PROM25SU44 RC
[2020-11-25] MEDS ORDERED: NS IV 1000 ML 1,000 ML IV STA (08:14)
[2020-11-25] MEDS ORDERED: ONDANSETRON 4 MG/2 ML (SDV) Z0FRAN IVP ONE (08:15)
[2020-11-25] MEDS ORDERED: ONDANSETRON 4 MG/2 ML (SDV) Z0FRAN ONE (08:16)
--- NOTE | 2020-11-25 08:24 | ED Chest Pain ---
General Stated Complaint: CHEST PAIN / VOMITING Source: patient Exam Limitations: no limitations History of Present Illness Date Seen by Provider: Nov 25, 2020 Time Seen by Provider: 08:05 Initial Comments Here with report of chest pain that is on the central/right side and nonradiating. It is associated with nausea and vomiting. Overall not feeling well. She did get aspirin 324 mg p.o. in route. She has had a few days of nausea and vomiting. She was seen earlier this week for similar. Denies fever chills. Denies sore throat or runny nose. 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 NTG SL INJECTION OPERATOR: No Associated Symptoms: abdominal pain; No back pain, No edema, No fever/chills; nausea/vomiting; No shortness of breath, No weakness Allergies and Home Medications Allergies Coded Allergies: lisinopril (Verified Allergy, Mild, COUGH, 11/22/20) montelukast (Verified Allergy, Unknown, UNABLE TO REMEMBER REACTION, 11/22/20) Uncoded Allergies: METALS (Allergy, Unknown, 07/12/14) Home Medications Acetaminophen 325 Mg Tablet, 650 MG PO Q6H PRN for PAIN-MILD, (Reported) Butalb/Acetaminophen/Caffeine 1 Each Tablet, 1 EA PO QID PRN for MIGRAINE, (Reported) Canagliflozin 300 Mg Tablet, 300 MG PO DAILY, (Reported) Cefdinir 300 Mg Capsule, 300 MG PO BID Prescribed by: KAMILLE PHILLIP on 11/23/20 1216 Docusate Sodium 100 Mg Capsule, 100 MG PO DAILY PRN for CONSTIPATION-1ST LINE, (Reported) Duloxetine HCl 60 Mg Capsule.dr, 60 MG PO DAILY, (Reported) TAKES 30MG +60MG DAILY TO EQUAL 90MG Duloxetine HCl 30 Mg Capsule.dr, 30 MG PO DAILY, (Reported) TAKES 30MG +60MG DAILY TO EQUAL 90MG Gabapentin 600 Mg Tablet, 600 MG PO TID, (Reported) Insulin Detemir 100 Unit/1 Ml Insuln.pen, 15 UNIT SQ HS, (Reported) Ondansetron 8 Mg Tab.rapdis, 8 MG PO Q6H Prescribed by: KAMILLE PHILLIP on 11/23/20 1216 Ondansetron 4 Mg Tab.rapdis, 4 MG PO Q6H PRN for NAUSEA/VOMITING Prescribed by: MIHIR BLANCHARD on 11/25/20 1125 Pantoprazole Sodium 40 Mg Tablet.dr, 40 MG PO DAILY, (Reported) Pioglitazone HCl 45 Mg Tablet, 45 MG PO DAILY, (Reported) Promethazine HCl 25 Mg Supp.rect, 25 MG RC Q6H Prescribed by: KAMILLE PHILLIP on 11/23/20 1216 Propranolol HCl 60 Mg Tablet, 60 MG PO BID, (Reported) Quetiapine Fumarate 200 Mg Tablet, 200 MG PO HS, (Reported) Spironolactone 25 Mg Tablet, 25 MG PO DAILY, (Reported) Patient Home Medication List Home Medication List Reviewed: Yes Review of Systems Review of Systems Constitutional: see HPI; No chills, No fever EENTM: No Symptoms Reported Respiratory: Denies Cough, Denies Shortness of Air Cardiovascular: Chest Pain; Denies Edema Gastrointestinal: Diarrhea, Nausea, Vomiting Genitourinary: No Symptoms Reported Musculoskeletal: no symptoms reported Skin: no symptoms reported All Other Systems Reviewed Negative Unless Noted: Yes Past Qmjuskm-Dmurfj-Ovzthu Hx Past Med/Social Hx: Reviewed Nursing Past Med/Soc Hx Patient Social History Alcohol Use: Denies Use Type Used: Electronic/Vapor 2nd Hand Smoke Exposure: No Recent Hopitalizations: No Immunizations Up To Date Tetanus Booster (TDap): More than 5yrs Seasonal Allergies Seasonal Allergies: No Past Medical History Surgeries: Yes (D&C; RIGHT KNEE SCOPE X 2; EGD; CARDIAC CATH 2012--NO INTERVENTION) Cardiac, Eye Surgery, Orthopedic Respiratory: Yes Asthma Currently Using CPAP: No Currently Using BIPAP: No Cardiac: Yes (CARDIAC CATH 2012--NORMAL CORONARIES, NO INTERVENTION) Coronary Artery Disease, High Cholesterol, Hypertension Neurological: Yes Headaches /Migraines 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 Disorders: No Female 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 Disorders: Denies 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 Sexually Transmitted Disease: No Genitourinary: Yes Bladder Infection, Kidney Stones, Renal Failure Gastrointestinal: Yes Gastroesophageal Reflux, Hiatal Hernia, Irritable Bowel Musculoskeletal: Yes Fibromyalgia Endocrine: Yes (NON COMPLAINT) Diabetes, Non-Insulin dep HEENT: Yes (EYE SURGERY) Loss of Vision: Denies Hearing Impairment: Denies Cancer: No Psychosocial: Yes (EXTENSIVE PSYCH ISSUES) ADD/ADHD, Sleep Difficulties, Anxiety, PTSD, Depression Integumentary: No Blood Disorders: No Adverse Reaction/Blood Tranf: No Family Medical History Reviewed Nursing Family Hx Hypertension 19 FATHER No Pertinent Family Hx, CVA, Seizures Physical Exam Vital Signs Capillary Refill : Height, Weight, BMI Height: 5'3.00" Weight: 240lbs. 2.0oz. 108.734862bi; 48.75 BMI Method:Stated General Appearance: No Apparent Distress, WD/WN HEENT: PERRL/EOMI, Pharynx Normal Neck: Non Tender, Supple Respiratory: Lungs Clear, Normal Breath Sounds Cardiovascular: Regular Rate, Rhythm, No Murmur Gastrointestinal: Non Tender, Soft Extremity: Normal Range of Motion, Non Tender, No Calf Tenderness Neurologic/Psychiatric: Alert, Oriented x3 Skin: Normal Color, Warm/Dry Progress/Results/Core Measures Results/Orders Lab Results Laboratory Tests Test 11/25/20 08:24 11/25/20 09:50 11/25/20 11:20 Range/Units White Blood Count 6.4 4.3-11.0 10^3/uL Red Blood Count 4.40 3.80-5.11 10^6/uL Hemoglobin 11.3 L 11.5-16.0 g/dL Hematocrit 37 35-52 % Mean Corpuscular Volume 83 80-99 fL Mean Corpuscular Hemoglobin 26 25-34 pg Mean Corpuscular Hemoglobin Concent 31 L 32-36 g/dL Red Cell Distribution Width 18.0 H 10.0-14.5 % Platelet Count 159 130-400 10^3/uL Mean Platelet Volume 11.6 9.0-12.2 fL Immature Granulocyte % (Auto) 0 % Neutrophils (%) (Auto) 66 42-75 % Lymphocytes (%) (Auto) 22 12-44 % Monocytes (%) (Auto) 9 0-12 % Eosinophils (%) (Auto) 3 0-10 % Basophils (%) (Auto) 1 0-10 % Neutrophils # (Auto) 4.2 1.8-7.8 10^3/uL Lymphocytes # (Auto) 1.4 1.0-4.0 10^3/uL Monocytes # (Auto) 0.6 0.0-1.0 10^3/uL Eosinophils # (Auto) 0.2 0.0-0.3 10^3/uL Basophils # (Auto) 0.0 0.0-0.1 10^3/uL Immature Granulocyte # (Auto) 0.0 0.0-0.1 10^3/uL Sodium Level 142 135-145 MMOL/L Potassium Level 3.5 L 3.6-5.0 MMOL/L Chloride Level 106 98-107 MMOL/L Carbon Dioxide Level 22 21-32 MMOL/L Anion Gap 14 5-14 MMOL/L Blood Urea Nitrogen 8 7-18 MG/DL Creatinine 1.00 0.60-1.30 MG/DL Estimat Glomerular Filtration Rate 58 BUN/Creatinine Ratio 8 Glucose Level 119 H 70-105 MG/DL Calcium Level 9.7 8.5-10.1 MG/DL Corrected Calcium 9.6 8.5-10.1 MG/DL Magnesium Level 1.7 1.6-2.4 MG/DL Total Bilirubin 0.7 0.1-1.0 MG/DL Aspartate Amino Transf (AST/SGOT) 26 5-34 U/L Alanine Aminotransferase (ALT/SGPT) 24 0-55 U/L Alkaline Phosphatase 50 40-136 U/L Myoglobin 70.9 10.0-92.0 NG/ML Troponin I < 0.028 < 0.028 <0.028 NG/ML Total Protein 7.3 6.4-8.2 GM/DL Albumin 4.1 3.2-4.5 GM/DL Prothrombin Time 14.4 12.2-14.7 SEC INR Comment 1.2 0.8-1.4 Activated Partial Thromboplast Time 27 24-35 SEC D-Dimer 0.84 H 0.00-0.49 UG/ML My Orders Orders - MIHIR BLANCHARD MD Cbc With Automated Diff (11/25/20 08:14) Magnesium (11/25/20 08:14) Chest 1 View, Ap/Pa Only (11/25/20 08:14) Ekg Tracing (11/25/20 08:14) Comprehensive Metabolic Panel (11/25/20 08:14) Myoglobin Serum (11/25/20 08:14) Protime With Inr (11/25/20 08:14) Partial Thromboplastin Time (11/25/20 08:14) O2 (11/25/20 08:14) Monitor-Rhythm Ecg Trace Only (11/25/20 08:14) Lipid Panel (11/26/20 06:00) Ed Iv/Invasive Line Start (11/25/20 08:14) Fibrin Degradation Products (11/25/20 08:14) Troponin I (11/25/20 08:14) Ondansetron Injection (Zofran Injectio (11/25/20 08:15) Ns Iv 1000 Ml (Sodium Chloride 0.9%) (11/25/20 08:14) Ed Iv/Invasive Line Start (11/25/20 08:14) Ondansetron Injection (Zofran Injectio (11/25/20 08:16) Troponin I (11/25/20 11:18) Medications Given in ED Current Medications Medications Dose Ordered Sig/Kate Route Start Time Stop Time Status Last Admin Dose Admin Ondansetron HCl 4 mg ONCE ONCE IVP 11/25/20 08:15 11/25/20 08:16 DC 11/25/20 08:19 4 MG Progress Progress Note : Progress Note Seen and evaluated. Chest pain protocol initiated. Zofran 4 mg IV ordered. Normal saline 1 L bolus. Monitor patient. 1122: Initial sets negative. Patient feeling better. We will repeat troponin and if negative then discharge home. Patient has some Zofran at home and we will initiate new prescription. This was appreciated by the patient. Monitor patient. 1231: Overall improved. Repeat troponin negative. Discharged home with return precautions. Patient verbalized understanding of instructions and agreement with plan. I did discuss with her about follow-up for possible stress test and she will call her provider on Thursday. Initial ECG Impression Date: Nov 25, 2020 Initial ECG Impression Time: 08:25 Initial ECG Rate: 77 Initial ECG Rhythm: Normal Sinus Comment Sinus rhythm with normal axis. No evidence of ST elevation ND. Similar to previous of 01/30/2020. Interpreted by me. Diagnostic Imaging Diagonstic Imaging: Xray Plain Films/CT/US/NM/MRI: chest Comments [facility] [place], [place] NAME: NAE PRICE Divine [facility] REC#: [id number] PT STATUS: REG ER : 1970 PHYSICIAN: MIHIR BLANCHARD MD ADMIT DATE: 11/25/20/ER Signed Date of Exam:11/25/20 CHEST 1 VIEW, AP/PA ONLY INDICATION: Chest pain. TECHNIQUE: Single view chest 9:01 AM. CORRELATION STUDY: 08/17/2020 FINDINGS: Heart size is mildly enlarged. Vasculature overall within normal limits. Likely mild pleural thickening along the right lateral chest wall. No consolidating infiltrate. IMPRESSION: 1. Cardiac enlargement without overt failure. Dictated by: Dictated on workstation # [id number] Dict: 11/25/20 0903 Trans: 11/25/20 1105 CV [id number] Interpreted by: EMMETT MATHEWS DO Electronically signed by: EMMETT MATHEWS DO 11/25/20 1105 Departure Impression Primary Impression: Chest pain Qualified Codes: R07.9 - Chest pain, unspecified Additional Impression: Abdominal pain Qualified Codes: R10.84 - Generalized abdominal pain Disposition: HOME, SELF-CARE Condition: Improved Departure-Patient Inst. Decision time for Depature: 12:31 Referrals: [facility]/ (PCP) Primary Care Physician ALISON STAPLES (Family) Primary Care Physician Patient Instructions: Chest Pain Add. Discharge Instructions: Continue home medications as previously prescribed. Clear or light diet today and then advance as tolerated. Take nausea medicines as prescribed. Follow-up with your doctor for recheck and further evaluation and to discuss further evaluation including cardiac stress test as needed. Return for worse pain, fever, vomiting, weakness, breathing problems or other concerns as needed. Scripts Ondansetron (Ondansetron Odt) 4 Mg Tab.rapdis 4 MG PO Q6H PRN for NAUSEA/VOMITING, #8 TAB 0 Refills Prov: MIHIR BLANCHARD MD 11/25/20 Copy Copies To 1: TAYLOR PETERSEN MD, TIMOTHY D MD Nov 25, 2020 08:24
[2020-11-25 08:32] LABS: BASOPHILS % (AUTO) 1 % (0-10); EOSINOPHILS # (AUTO) 0.2 10^3/uL (0.0-0.3); EOSINOPHILS % (AUTO) 3 % (0-10); HEMATOCRIT 37 % (35-52); HEMOGLOBIN 11.3 g/dL (11.5-16.0); LYMPHOCYTES # (AUTO) 1.4 10^3/uL (1.0-4.0); LYMPHOCYTES % (AUTO) 22 % (12-44); MEAN CORPUSCULAR HEMOGLOBIN 26 pg (25-34); MEAN CORPUSCULAR HGB CONC 31 g/dL (32-36); MEAN CORPUSCULAR VOLUME 83 fL (80-99); MEAN PLATELET VOLUME 11.6 fL (9.0-12.2); MONOCYTES # (AUTO) 0.6 10^3/uL (0.0-1.0); MONOCYTES % (AUTO) 9 % (0-12); NEUTROPHILS # (AUTO) 4.2 10^3/uL (1.8-7.8); NEUTROPHILS % (AUTO) 66 % (42-75); PLATELET COUNT 159 10^3/uL (130-400); WHITE BLOOD COUNT 6.4 10^3/uL (4.3-11.0)
[2020-11-25 08:49] LABS: ALBUMIN 4.1 GM/DL (3.2-4.5)
[2020-11-25 08:50] LABS: POTASSIUM 3.5 MMOL/L (3.6-5.0)
[2020-11-25 08:51] LABS: CALCIUM 9.7 MG/DL (8.5-10.1)
[2020-11-25 08:52] LABS: TOTAL PROTEIN 7.3 GM/DL (6.4-8.2)
[2020-11-25 08:54] LABS: BILIRUBIN,TOTAL 0.7 MG/DL (0.1-1.0)
[2020-11-25 08:58] LABS: MAGNESIUM 1.7 MG/DL (1.6-2.4)
--- NOTE | 2020-11-25 09:05 | Diagnostic Imaging Report ---
INDICATION: Chest pain. TECHNIQUE: Single view chest 9:01 AM. CORRELATION STUDY: 08/17/2020 FINDINGS: Heart size is mildly enlarged. Vasculature overall within normal limits. Likely mild pleural thickening along the right lateral chest wall. No consolidating infiltrate. IMPRESSION: 1. Cardiac enlargement without overt failure. Dictated by: Dictated on workstation # [id number]
[2020-11-25 10:18] LABS: INR 1.2 (0.8-1.4); PROTHROMBIN TIME PATIENT 14.4 SEC (12.2-14.7)
[2020-11-25] MEDS ORDERED: ONDA4TAB11 PO (11:25)
[2020-11-25 12:40] VITALS: BP 136/96
== END 2020-11-25 12:43 | disposition home or self-care (01) ==
LOC: EDUNIT# 08:06 → ER 08:07
DX: R07.9 Chest pain, unspecified (principal); R10.9 Unspecified abdominal pain; I10 Essential (primary) hypertension; J45.909 Unspecified asthma, uncomplicated; K21.9 Gastro-esophageal reflux disease without esophagitis; F32.9 Major depressive disorder, single episode, unspecified; F41.9 Anxiety disorder, unspecified; E11.9 Type 2 diabetes mellitus without complications; Z79.899 Other long term (current) drug therapy
CPT/HCPCS: 36415; 71045; 80053; 83735; 83874; 84484; 85025; 85379; 85610; 85730; 93005; 93041

== ENCOUNTER 2020-12-12 01:41 | Inpatient (IN) | payer MEDICARE, MEDICAID ==
[~2020-12-12] VITALS: Ht 160 cm; Wt 123.7 kg
[~2020-12-12 01:41] MED LIST changes: +MIRT-69 PO; -MIRT30TA6 PO
[2020-12-12] MEDS ORDERED: LACTATED RINGERS 1,000 ML IV STA (01:54)
[2020-12-12] MEDS ORDERED: KETOROLAC 30 MG/ML VIAL IVP STA (01:54)
[2020-12-12] MEDS ORDERED: HYOSCYAMINE 0.125 MG (LEVSIN) TAB SL ONE (02:00)
[2020-12-12] MEDS ORDERED: ONDANSETRON 4 MG/2 ML (SDV) Z0FRAN IVP ONE (02:00)
--- NOTE | 2020-12-12 02:00 | ED Abdominal Pain ---
General Chief Complaint: Abdominal/GI Problems Stated Complaint: ABD PAIN Nursing Triage Note: PRESENTS [facility]IA [facility] GURNEY FROM HOME W/CO NAUSEA, VOMITING, AND ABD DISCOMFORT. STATES NAUSEA AND VOMITING BEGAN ON THE MORNING OF 12/11/20. STATES ABD DISCOMFORT BEGAN THIS AFTERNOON AT UNKNOWN TIME AND HAS BEEN INTERMITTENT SINCE ONSET. Source of Information: Patient Exam Limitations: No Limitations History of Present Illness Date Seen by Provider: Dec 12, 2020 Time Seen by Provider: 01:44 Initial Comments Here with report of intermittent abdominal pain that worsened until tonight when it became quite severe. Onset yesterday morning and has persisted intermittently since. Does have chronic history of abdominal pain and has been seen multiple times for the same. Typical presentation in the right upper quadrant and right flank. Last bowel movement was yesterday. She has not had a bowel movement today. States she is urinating well. Has had multiple episodes of nausea and vomiting. She tried her prescribed nausea medicines and those are not working. Believes she may have had a fever. Denies contact with COVID-19 but has not been vaccinated. Timing/Duration: 24 Hours, Getting Worse, Intermittent Severity/Quality: Moderate, Severe, Cramping Location: RUQ, RLQ Radiation: Flank Activities at Onset: None Modifying Factors: Worsens With Eating; Improves With Resting Associated Symptoms: No Back Pain, No Chest Pain; Fever/Chills, Nausea/Vomiting; No Shortness of Air, No Weakness Allergies and Home Medications Allergies Coded Allergies: lisinopril (Verified Allergy, Mild, COUGH, 11/22/20) montelukast (Verified Allergy, Unknown, UNABLE TO REMEMBER REACTION, 11/22/20) Uncoded Allergies: METALS (Allergy, Unknown, 07/12/14) Home Medications Acetaminophen 325 Mg Tablet, 650 MG PO Q6H PRN for PAIN-MILD, (Reported) Butalb/Acetaminophen/Caffeine 1 Each Tablet, 1 EA PO QID PRN for MIGRAINE, (Reported) Canagliflozin 300 Mg Tablet, 300 MG PO DAILY, (Reported) Cefdinir 300 Mg Capsule, 300 MG PO BID Prescribed by: KAMILLE PHILLIP on 11/23/20 1216 Docusate Sodium 100 Mg Capsule, 100 MG PO DAILY PRN for CONSTIPATION-1ST LINE, (Reported) Duloxetine HCl 60 Mg Capsule.dr, 60 MG PO DAILY, (Reported) TAKES 30MG +60MG DAILY TO EQUAL 90MG Duloxetine HCl 30 Mg Capsule.dr, 30 MG PO DAILY, (Reported) TAKES 30MG +60MG DAILY TO EQUAL 90MG Gabapentin 600 Mg Tablet, 600 MG PO TID, (Reported) Insulin Detemir 100 Unit/1 Ml Insuln.pen, 15 UNIT SQ HS, (Reported) Ondansetron 8 Mg Tab.rapdis, 8 MG PO Q6H Prescribed by: KAMILLE PHILLIP on 11/23/20 1216 Ondansetron 4 Mg Tab.rapdis, 4 MG PO Q6H PRN for NAUSEA/VOMITING Prescribed by: MIHIR BLANCHARD on 11/25/20 1125 Pantoprazole Sodium 40 Mg Tablet.dr, 40 MG PO DAILY, (Reported) Pioglitazone HCl 45 Mg Tablet, 45 MG PO DAILY, (Reported) Promethazine HCl 25 Mg Supp.rect, 25 MG RC Q6H Prescribed by: KAMILLE PHILLIP on 11/23/20 1216 Propranolol HCl 60 Mg Tablet, 60 MG PO BID, (Reported) Quetiapine Fumarate 200 Mg Tablet, 200 MG PO HS, (Reported) Spironolactone 25 Mg Tablet, 25 MG PO DAILY, (Reported) Patient Home Medication List Home Medication List Reviewed: Yes Review of Systems Review of Systems Constitutional: see HPI, fever; No weakness EENTM: No Symptoms Reported; No Nose Pain, No Throat Pain Respiratory: Denies Cough, Denies Shortness of Air Cardiovascular: No Symptoms Reported Gastrointestinal: Abdominal Pain, Nausea, Vomiting Genitourinary: No Symptoms Reported Musculoskeletal: no symptoms reported All Other Systems Reviewed Negative Unless Noted: Yes Past Gkmxxig-Rjmufk-Ljxpyy Hx Patient Social History Tobacco Use?: No Substance use?: No Alcohol Use?: No Immunizations Up To Date Tetanus Booster (TDap): Unknown Seasonal Allergies Seasonal Allergies: No Past Medical History Surgeries: Yes (D&C; RIGHT KNEE SCOPE X 2; EGD; CARDIAC CATH 2012--NO INTERVENTION) Cardiac, Eye Surgery, Orthopedic Respiratory: Yes Asthma Currently Using CPAP: No Currently Using BIPAP: No Cardiac: Yes (CARDIAC CATH 2012--NORMAL CORONARIES, NO INTERVENTION) Coronary Artery Disease, High Cholesterol, Hypertension Neurological: Yes Headaches /Migraines 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 Disorders: No Female 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 Disorders: Denies 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 Sexually Transmitted Disease: No Genitourinary: Yes Bladder Infection, Kidney Stones, Renal Failure Gastrointestinal: Yes Gastroesophageal Reflux, Hiatal Hernia, Irritable Bowel Musculoskeletal: Yes Fibromyalgia Endocrine: Yes (NON COMPLAINT) Diabetes, Non-Insulin dep HEENT: Yes (EYE SURGERY) Loss of Vision: Denies Hearing Impairment: Denies Cancer: No Psychosocial: Yes (EXTENSIVE PSYCH ISSUES) ADD/ADHD, Sleep Difficulties, Anxiety, PTSD, Depression Integumentary: No Blood Disorders: No Adverse Reaction/Blood Tranf: No Family Medical History Hypertension 19 FATHER CVA, Seizures Physical Exam Vital Signs Vital Signs - First Documented 12/12/20 01:42 Temp 36.0 Pulse 100 Resp 18 B/P (MAP) 137/81 (99) Pulse Ox 98 O2 Delivery Room Air Capillary Refill : Less Than 3 Seconds Height/Weight/BMI Height: 5'3.00" Weight: 240lbs. 2.0oz. 108.363379lx; 48.00 BMI Method:Stated General Appearance: WD/WN, mild distress, obese HEENT: PERRL/EOMI, pharynx normal Neck: full range of motion, supple Respiratory: lungs clear, normal breath sounds Cardiovascular: no murmur, tachycardia Peripheral Pulses: 2+ Dorsalis Pedis (R), 2+ Left Dors-Pedis (L), 2+ Radial Pulses (R), 2+ Radial Pulses (L) Gastrointestinal: soft, tenderness (Mild TTP right sided.) Extremities: non-tender, normal inspection Back: normal inspection, no CVA tenderness, no vertebral tenderness Neurologic/Psychiatric: alert, oriented x 3 Skin: normal color, warm/dry Progress/Results/Core Measures Results/Orders Lab Results Laboratory Tests Test 12/12/20 01:54 12/12/20 02:01 12/12/20 02:03 Range/Units White Blood Count 7.6 4.3-11.0 10^3/uL Red Blood Count 4.86 3.80-5.11 10^6/uL Hemoglobin 12.6 11.5-16.0 g/dL Hematocrit 40 35-52 % Mean Corpuscular Volume 82 80-99 fL Mean Corpuscular Hemoglobin 26 25-34 pg Mean Corpuscular Hemoglobin Concent 32 32-36 g/dL Red Cell Distribution Width 17.0 H 10.0-14.5 % Platelet Count 289 130-400 10^3/uL Mean Platelet Volume 11.3 9.0-12.2 fL Immature Granulocyte % (Auto) 0 % Neutrophils (%) (Auto) 58 42-75 % Lymphocytes (%) (Auto) 31 12-44 % Monocytes (%) (Auto) 8 0-12 % Eosinophils (%) (Auto) 2 0-10 % Basophils (%) (Auto) 1 0-10 % Neutrophils # (Auto) 4.4 1.8-7.8 10^3/uL Lymphocytes # (Auto) 2.4 1.0-4.0 10^3/uL Monocytes # (Auto) 0.6 0.0-1.0 10^3/uL Eosinophils # (Auto) 0.2 0.0-0.3 10^3/uL Basophils # (Auto) 0.0 0.0-0.1 10^3/uL Immature Granulocyte # (Auto) 0.0 0.0-0.1 10^3/uL Sodium Level 141 135-145 MMOL/L Potassium Level 3.7 3.6-5.0 MMOL/L Chloride Level 102 98-107 MMOL/L Carbon Dioxide Level 26 21-32 MMOL/L Anion Gap 13 5-14 MMOL/L Blood Urea Nitrogen 11 7-18 MG/DL Creatinine 1.34 H 0.60-1.30 MG/DL Estimat Glomerular Filtration Rate 42 BUN/Creatinine Ratio 8 Glucose Level 148 H 70-105 MG/DL Calcium Level 10.6 H 8.5-10.1 MG/DL Corrected Calcium 10.3 H 8.5-10.1 MG/DL Magnesium Level 1.8 1.6-2.4 MG/DL Total Bilirubin 0.7 0.1-1.0 MG/DL Aspartate Amino Transf (AST/SGOT) 17 5-34 U/L Alanine Aminotransferase (ALT/SGPT) 21 0-55 U/L Alkaline Phosphatase 53 40-136 U/L C-Reactive Protein High Sensitivity 0.59 H 0.00-0.50 MG/DL Total Protein 8.0 6.4-8.2 GM/DL Albumin 4.4 3.2-4.5 GM/DL Influenza Type A (RT-PCR) Not Detected Not Detecte Influenza Type B (RT-PCR) Not Detected Not Detecte SARS-CoV-2 RNA (RT-PCR) Not Detected Not Detecte Urine Color YELLOW Urine Clarity CLEAR Urine pH 8.5 5-9 Urine Specific [place] 1.015 L 1.016-1.022 Urine Protein NEGATIVE NEGATIVE Urine Glucose (UA) 2+ H NEGATIVE Urine Ketones 1+ H NEGATIVE Urine Nitrite NEGATIVE NEGATIVE Urine Bilirubin NEGATIVE NEGATIVE Urine Urobilinogen 0.2 < = 1.0 MG/DL Urine Leukocyte Esterase NEGATIVE NEGATIVE Urine RBC (Auto) NEGATIVE NEGATIVE Urine RBC NONE /HPF Urine WBC 5-10 H /HPF Urine Squamous Epithelial Cells 0-2 /HPF Urine Crystals NONE /LPF Urine Bacteria TRACE /HPF Urine Casts NONE /LPF Urine Mucus NEGATIVE /LPF Urine Culture Indicated NO My Orders Orders - MIHIR BLANCHARD MD Cbc With Automated Diff (12/12/20 01:54) Comprehensive Metabolic Panel (12/12/20 01:54) Hs C Reactive Protein (12/12/20 01:54) Magnesium (12/12/20 01:54) Ua Culture If Indicated (12/12/20 01:54) Ondansetron Injection (Zofran Injectio (12/12/20 02:00) Lactated Ringers (Lr 1000 Ml Iv Solution (12/12/20 01:54) Ed Iv/Invasive Line Start (12/12/20 01:54) Ketorolac Injection (Toradol Injection) (12/12/20 01:54) Hyoscyamine Sl Tablet (Levsin Sl Tablet) (12/12/20 02:00) Covid 19 Inhouse Test (12/12/20 02:01) Influenza A And B By Pcr (12/12/20 02:01) Promethazine Injection (Phenergan Injec (12/12/20 02:49) Medications Given in ED Current Medications Medications Dose Ordered Sig/Kate Route Start Time Stop Time Status Last Admin Dose Admin Hyoscyamine Sulfate 0.125 mg ONCE ONCE SL 12/12/20 02:00 12/12/20 02:01 DC 12/12/20 02:03 0.125 MG Ondansetron HCl 4 mg ONCE ONCE IVP 12/12/20 02:00 12/12/20 02:01 DC 12/12/20 02:01 4 MG Vital Signs/I&O 12/12/20 01:42 Temp 36.0 Pulse 100 Resp 18 B/P (MAP) 137/81 (99) Pulse Ox 98 O2 Delivery Room Air Blood Pressure Mean: 99 Progress Progress Note : Progress Note Seen and evaluated. IV, labs, LR 1 L bolus, Zofran 4 mg IV, Toradol 15 mg IV and Levsin 0.125 mg p.o. ordered. Covid testing ordered. Monitor patient. 0315: We have initiated dose of Phenergan 12.5 mg IV for persistent nausea and vomiting. Patient asking for admission. Labs overall look good currently. We will see how she does with the Phenergan. Monitor patient. 0405: Patient still with significant nausea although vomiting has decreased. She does state that if she moves at all she has significant urge to vomit. I did discuss the case with Dr. Shipley and she has graciously accepted the patient for admission, observation status. We will continue IV fluids and clear liquid diet as tolerated. Patient very appreciative of the plan. We did not image the patient during the ER stay as patient has had multiple CT scans with similar presentations and those have all been negative. She has had recent bowel movement. We could consider abdominal x-ray but we will try conservative approach initially. Departure Communication (Admissions) Time/Spoke to Admitting Phy: 04:02 Impression Primary Impression: Nausea & vomiting Qualified Codes: R11.2 - Nausea with vomiting, unspecified Additional Impression: Generalized abdominal pain Disposition: ADMITTED INPATIENT Condition: Stable Admissions Decision to Admit Reason: Admit from ER (General) Decision to Admit/Date: Dec 12, 2020 Time/Decision to Admit Time: 04:02 Departure-Patient Inst. Referrals: [facility] (PCP) Primary Care Physician ALISON STAPLES (Family) Primary Care Physician MIHIR BLANCHARD MD Dec 12, 2020 02:00
[2020-12-12 02:12] LABS: BASOPHILS % (AUTO) 1 % (0-10); EOSINOPHILS # (AUTO) 0.2 10^3/uL (0.0-0.3); EOSINOPHILS % (AUTO) 2 % (0-10); HEMATOCRIT 40 % (35-52); HEMOGLOBIN 12.6 g/dL (11.5-16.0); LYMPHOCYTES # (AUTO) 2.4 10^3/uL (1.0-4.0); LYMPHOCYTES % (AUTO) 31 % (12-44); MEAN CORPUSCULAR HEMOGLOBIN 26 pg (25-34); MEAN CORPUSCULAR HGB CONC 32 g/dL (32-36); MEAN CORPUSCULAR VOLUME 82 fL (80-99); MEAN PLATELET VOLUME 11.3 fL (9.0-12.2); MONOCYTES # (AUTO) 0.6 10^3/uL (0.0-1.0); MONOCYTES % (AUTO) 8 % (0-12); NEUTROPHILS # (AUTO) 4.4 10^3/uL (1.8-7.8); NEUTROPHILS % (AUTO) 58 % (42-75); PLATELET COUNT 289 10^3/uL (130-400); WHITE BLOOD COUNT 7.6 10^3/uL (4.3-11.0)
[2020-12-12 02:15] LABS: ALBUMIN 4.4 GM/DL (3.2-4.5)
[2020-12-12 02:16] LABS: POTASSIUM 3.7 MMOL/L (3.6-5.0)
[2020-12-12 02:17] LABS: CALCIUM 10.6 MG/DL (8.5-10.1)
[2020-12-12 02:20] LABS: BILIRUBIN,TOTAL 0.7 MG/DL (0.1-1.0)
[2020-12-12 02:22] LABS: CREATININE SERUM 1.34 MG/DL (0.60-1.30)
[2020-12-12 02:24] LABS: MAGNESIUM 1.8 MG/DL (1.6-2.4)
[2020-12-12 02:29] LABS: BILIRUBIN,URINE NEGATIVE (NEGATIVE); CLARITY,URINE CLEAR; COLOR,URINE YELLOW; GLUCOSE, URINE (UA) 2+ (NEGATIVE); KETONES,URINE 1+ (NEGATIVE); LEUKOCYTE ESTERASE ,URINE NEGATIVE (NEGATIVE); NITRITE,URINE NEGATIVE (NEGATIVE); PH,URINE 8.5 (5-9); PROTEIN,URINE NEGATIVE (NEGATIVE)
[2020-12-12 02:40] LABS: BACTERIA,URINE TRACE /HPF; SQUAMOUS EPITHELIAL CELL,UR 0-2 /HPF
[2020-12-12] MEDS ORDERED: PROMETHAZINE INJ 25 MG/ML (PHENERGAN) AMP IVP STA (02:49)
[2020-12-12 04:53] VITALS: BP 138/86
[2020-12-12] MEDS: LACTATED RINGERS 1,000 ML IV SCH ×2 (05:34→15:22)
[2020-12-12] MEDS: ONDANSETRON 4 MG/2 ML (SDV) Z0FRAN IVP PRN ×2 (05:54→17:55)
[2020-12-12 08:30] VITALS: BP 136/68
[2020-12-12] MEDS: PROMETHAZINE INJ 25 MG/ML (PHENERGAN) AMP IVP PRN ×3 (09:51→21:48)
--- NOTE | 2020-12-12 10:24 | History & Physical ---
FARIBAPATRICIA MED STUDENT 12/12/20 1023: HPI History of Present Illness: cc: Nausea and vomiting HPI per ED: Here with report of intermittent abdominal pain that worsened until tonight when it became quite severe. Onset yesterday morning and has persisted intermittently since. Does have chronic history of abdominal pain and has been seen multiple times for the same. Typical presentation in the right upper quadrant and right flank. Last bowel movement was yesterday. She has not had a bowel movement today. States she is urinating well. Has had multiple episodes of nausea and vomiting. She tried her prescribed nausea medicines and those are not working. Believes she may have had a fever. Denies contact with COVID-19 but has not been vaccinated. This is Christie, a 50 yo F, who is here with intractable nausea and vomiting. She states that this started the morning of 12/10, progressed in frequency and pain, so she decided to go the ED via EMS. She has these "episodes" once a month, and nothing really seems to make it better. States that she came in because it had not gotten better by the end of the day yesterday. Pt reports that she is not able to get comfortable and has only had a few moments pain free. She has "tried everything there is" in medications for nausea with no help. Last EGD and colonoscopy were over 1 year ago. States that they scan her, but nothing is ever wrong. Last bm was on the 10 of December. Source: patient Exam Limitations: clinical condition Date seen by provider: Dec 12, 2020 Time Seen by Provider: 09:10 Attending Physician Deepti Shipley MD [facility] Center/[facility] [place],[facility] Consult Date of Admission Dec 12, 2020 at 04:09 Home Medications Home Medications Reviewed patient Home Medication Reconciliation performed by pharmacy medication reconciliations windows deployment technician and/or nursing. Patients Allergies have been reviewed. Allergies Coded Allergies: lisinopril (Verified Allergy, Mild, COUGH, 11/22/20) montelukast (Verified Allergy, Unknown, UNABLE TO REMEMBER REACTION, 11/22/20) Uncoded Allergies: METALS (Allergy, Unknown, 07/12/14) APA-Qworil-Nwvxeo Hx Patient Social History Smoking Status: Never a Smoker 2nd Hand Smoke Exposure: No Recent Hopitalizations: No Alcohol Use?: No Have you traveled recently?: No Immunizations Up To Date Tetanus Booster (TDap): Unknown Past Medical History PMHx: DMII HTN Fibromyalgia Anxiety PTSD PSurgHx: Knee scope x 2 Eye surgery Family Medical History Significant Family History: CVA, GI Disease (ulcers ), Seizures Family History: Hypertension 19 FATHER Review of Systems ([facility]) Constitutional: No chills; dizziness; No fever; other (headaches ) EENTM: No blurred vision Respiratory: No cough, No short of breath Cardiovascular: No chest pain, No palpitations Gastrointestinal: abdominal pain (RUQ, LUQ ); No constipation, No diarrhea; nausea, vomiting Genitourinary: No dysuria, No frequency Psychiatric/Neurological: Headache Physical Exam-([facility]) Physical Exam Vital Signs VS - Last 72 Hours, by Label 12/12/20 12/12/20 12/12/20 12/12/20 01:42 04:35 04:50 04:53 Temp 36.0 36.6 36.0 Pulse 100 89 94 Resp 18 19 18 B/P (MAP) 137/81 (99) 140/81 (99) 138/86 (103) Pulse Ox 98 99 O2 Delivery Room Air Room Air Room Air Room Air 12/12/20 12/12/20 08:00 08:30 Temp 36.4 Pulse 91 Resp 20 B/P (MAP) 136/68 (90) Pulse Ox 100 O2 Delivery Room Air Room Air Capillary Refill : Less Than 3 Seconds General Appearance: WD/WN, mild distress HEENT: No scleral icterus (R), No scleral icterus (L) Neck: non-tender, full range of motion, supple, normal inspection; No lymphadenopathy (R), No lymphadenopathy (L) Respiratory: chest non-tender, lungs clear, normal breath sounds, no respiratory distress, no accessory muscle use Cardiovascular: normal peripheral pulses, regular rate, rhythm, no murmur Peripheral Pulses: 2+ Dorsalis Pedis (R), 2+ Left Dors-Pedis (L), 2+ Radial Pulses (R), 2+ Radial Pulses (L) Gastrointestinal: abnormal bowel sounds (decereased), tenderness Extremities: normal range of motion, non-tender, normal capillary refill Neurologic/Psychiatric: oriented x 3 Skin: normal color, warm/dry Lymphatic: no adenopathy Assessment/Plan Assessment/Plan (1) Intractable nausea and vomiting Status: Acute Assessment & Plan: Lactated Ringer's at 100 mls/hr IV Zofran 4 mg Q4hr PRN Promethazine 25 gm Q6hr PRN Recommend outpatient gastric emptying study for possible diabetic gastroparesis. (2) Diabetes Status: Chronic Assessment & Plan: Continue home medication of Pioglitazone, Levemir and Invokana. Qualifiers: Qualified Codes: E11.65 - Type 2 diabetes mellitus with hyperglycemia; Z79.4 - retirement (current) use of insulin DEEPTI SHIPLEY MD 12/12/20 9617: HPI History of Present Illness: Patient seen and examined with MS4, agree with above HPI Source: patient Exam Limitations: no limitations Home Medications Allergies Coded Allergies: lisinopril (Verified Allergy, Mild, COUGH, 11/22/20) montelukast (Verified Allergy, Unknown, UNABLE TO REMEMBER REACTION, 11/22/20) Uncoded Allergies: METALS (Allergy, Unknown, 07/12/14) FPH-Ospesl-Cfomku Hx Past Medical History Chronic abdominal pain IDDM HTN Anxiety Depression Family Medical History Family History: Hypertension 19 FATHER Review of Systems ([facility]) Constitutional: No chills; dizziness; No fever; other (headaches ) EENTM: no symptoms reported; No mouth pain, No nose congestion, No nose pain Respiratory: no symptoms reported; No cough, No dyspnea on exertion, No short of breath Cardiovascular: no symptoms reported; No chest pain, No palpitations Gastrointestinal: abdominal pain (RUQ, LUQ ); No constipation, No diarrhea; loss of appetite, nausea Genitourinary: no symptoms reported; No dysuria, No frequency, No hematuria : No Musculoskeletal: no symptoms reported; No back pain, No joint pain, No muscle pain Skin: no symptoms reported; No lesions, No rash Psychiatric/Neurological: Headache Reviewed Test Results Reviewed Test Results Lab Laboratory Tests Test 12/12/20 01:54 12/12/20 02:01 12/12/20 02:03 12/12/20 14:25 Range/Units White Blood Count 7.6 4.3-11.0 10^3/uL Red Blood Count 4.86 3.80-5.11 10^6/uL Hemoglobin 12.6 11.5-16.0 g/dL Hematocrit 40 35-52 % Mean Corpuscular Volume 82 80-99 fL Mean Corpuscular Hemoglobin 26 25-34 pg Mean Corpuscular Hemoglobin Concent 32 32-36 g/dL Red Cell Distribution Width 17.0 H 10.0-14.5 % Platelet Count 289 130-400 10^3/uL Mean Platelet Volume 11.3 9.0-12.2 fL Immature Granulocyte % (Auto) 0 % Neutrophils (%) (Auto) 58 42-75 % Lymphocytes (%) (Auto) 31 12-44 % Monocytes (%) (Auto) 8 0-12 % Eosinophils (%) (Auto) 2 0-10 % Basophils (%) (Auto) 1 0-10 % Neutrophils # (Auto) 4.4 1.8-7.8 10^3/uL Lymphocytes # (Auto) 2.4 1.0-4.0 10^3/uL Monocytes # (Auto) 0.6 0.0-1.0 10^3/uL Eosinophils # (Auto) 0.2 0.0-0.3 10^3/uL Basophils # (Auto) 0.0 0.0-0.1 10^3/uL Immature Granulocyte # (Auto) 0.0 0.0-0.1 10^3/uL Sodium Level 141 142 135-145 MMOL/L Potassium Level 3.7 4.0 3.6-5.0 MMOL/L Chloride Level 102 104 98-107 MMOL/L Carbon Dioxide Level 26 24 21-32 MMOL/L Anion Gap 13 14 5-14 MMOL/L Blood Urea Nitrogen 11 11 7-18 MG/DL Creatinine 1.34 H 1.41 H 0.60-1.30 MG/DL Estimat Glomerular Filtration Rate 42 39 BUN/Creatinine Ratio 8 8 Glucose Level 148 H 163 H 70-105 MG/DL Calcium Level 10.6 H 10.5 H 8.5-10.1 MG/DL Corrected Calcium 10.3 H 8.5-10.1 MG/DL Magnesium Level 1.8 1.6-2.4 MG/DL Total Bilirubin 0.7 0.1-1.0 MG/DL Aspartate Amino Transf (AST/SGOT) 17 5-34 U/L Alanine Aminotransferase (ALT/SGPT) 21 0-55 U/L Alkaline Phosphatase 53 40-136 U/L C-Reactive Protein High Sensitivity 0.59 H 0.00-0.50 MG/DL Total Protein 8.0 6.4-8.2 GM/DL Albumin 4.4 3.2-4.5 GM/DL Influenza Type A (RT-PCR) Not Detected Not Detecte Influenza Type B (RT-PCR) Not Detected Not Detecte SARS-CoV-2 RNA (RT-PCR) Not Detected Not Detecte Urine Color YELLOW Urine Clarity CLEAR Urine pH 8.5 5-9 Urine Specific [place] 1.015 L 1.016-1.022 Urine Protein NEGATIVE NEGATIVE Urine Glucose (UA) 2+ H NEGATIVE Urine Ketones 1+ H NEGATIVE Urine Nitrite NEGATIVE NEGATIVE Urine Bilirubin NEGATIVE NEGATIVE Urine Urobilinogen 0.2 < = 1.0 MG/DL Urine Leukocyte Esterase NEGATIVE NEGATIVE Urine RBC (Auto) NEGATIVE NEGATIVE Urine RBC NONE /HPF Urine WBC 5-10 H /HPF Urine Squamous Epithelial Cells 0-2 /HPF Urine Crystals NONE /LPF Urine Bacteria TRACE /HPF Urine Casts NONE /LPF Urine Mucus NEGATIVE /LPF Urine Culture Indicated NO Physical Exam-([facility]) Physical Exam General Appearance: WD/WN, no apparent distress HEENT: PERRL/EOMI Neck: non-tender, full range of motion, supple Respiratory: chest non-tender, lungs clear, normal breath sounds, no respiratory distress, no accessory muscle use Cardiovascular: normal peripheral pulses, regular rate, rhythm, no edema, no murmur Gastrointestinal: soft; No distended; tenderness (diffuse abdominal pain, no r ebound or gaurding) Back: no CVA tenderness, no vertebral tenderness Extremities: normal range of motion, non-tender, no calf tenderness, normal capillary refill Neurologic/Psychiatric: change consultant II-XII nml as tested, alert, oriented x 3 Skin: normal color, warm/dry Lymphatic: no adenopathy Assessment/Plan Assessment/Plan Admission Status: Inpatient Order (span 2 midnights) Reason for Inpatient Admission: Failed PO trial and elevation in Cr (1) Intractable nausea and vomiting Status: Acute Assessment & Plan: Lactated Ringer's at 100 mls/hr IV Zofran 4 mg Q4hr PRN Promethazine 25 gm Q6hr PRN Recommend outpatient gastric emptying study for possible diabetic gastroparesis. - Continue IVFs, IV Zofran/Phenergen, Encourage PO intake, needs outpatient workup (2) Diabetes Status: Chronic Assessment & Plan: Continue home medication of Pioglitazone, Levemir and Invokana. - Continue home meds, Accuchecks, SSI, ADA diet Qualifiers: Qualified Codes: E11.65 - Type 2 diabetes mellitus with hyperglycemia; Z79.4 - retirement (current) use of insulin (3) Acute kidney failure Status: Acute Assessment & Plan: - IVFs, Repeat BMP in AM Qualifiers: Qualified Codes: N17.9 - Acute kidney failure, unspecified (4) Generalized abdominal pain Status: Acute Supervisory-Addendum Brief Supervisory Addendum Verification and Attestation of Medical Student E/M Service A medical student performed and documented this service in my presence. I reviewed and verified all information documented by the medical student and made modifications to such information, when appropriate. I personally performed the physical exam and medical decision making. Deepti Shipley, Dec 12, 2020,22:46 Dr Shipley's plan is in italics PATRICIA LINK MED STUDENT Dec 12, 2020 10:23 DEEPTI SHIPLEY MD Dec 12, 2020 22:45
[2020-12-12] MEDS ORDERED: MIRT-69 PO (12:24)
[2020-12-12] MEDS ORDERED: FAMO20TA5 PO (12:24)
[2020-12-12] MEDS ORDERED: DICL50TA6 PO (12:24)
[2020-12-12] MEDS ORDERED: DESV100T16 PO (12:24)
[2020-12-12] MEDS ORDERED: TIZA4TAB4 PO (12:24)
[2020-12-12] MEDS ORDERED: QUET400T12 PO (12:24)
[2020-12-12] MEDS ORDERED: ATOR10TA66 PO (12:24)
[2020-12-12 12:41] VITALS: BP 149/81
[2020-12-12] MEDS: METOCLOPRAMIDE INJ 10 MG/2 ML (REGLAN) IVP SCH ×2 (13:28→20:40)
[2020-12-12 15:01] LABS: CALCIUM 10.5 MG/DL (8.5-10.1)
[2020-12-12 15:05] LABS: CREATININE SERUM 1.41 MG/DL (0.60-1.30)
[2020-12-12 16:00] VITALS: BP 142/78
[2020-12-12 19:38] VITALS: BP 143/71
[2020-12-12] MEDS: KETOROLAC 15 MG/ML VIAL IVP PRN (21:48)
[2020-12-13 00:31] VITALS: BP 142/89
[2020-12-13] MEDS: LACTATED RINGERS 1,000 ML IV SCH ×3 (01:46→20:15)
[2020-12-13] MEDS: ONDANSETRON 4 MG/2 ML (SDV) Z0FRAN IVP PRN ×3 (01:50→12:03)
[2020-12-13] MEDS: PROMETHAZINE INJ 25 MG/ML (PHENERGAN) AMP IVP PRN (03:59)
[2020-12-13 04:09] VITALS: BP 155/78
[2020-12-13] MEDS: KETOROLAC 15 MG/ML VIAL IVP PRN ×2 (04:51→21:44)
[2020-12-13 05:45] LABS: BASOPHILS # (AUTO) 0.1 10^3/uL (0.0-0.1); BASOPHILS % (AUTO) 1 % (0-10); EOSINOPHILS # (AUTO) 0.1 10^3/uL (0.0-0.3); EOSINOPHILS % (AUTO) 2 % (0-10); HEMATOCRIT 37 % (35-52); HEMOGLOBIN 11.8 g/dL (11.5-16.0); LYMPHOCYTES # (AUTO) 2.3 10^3/uL (1.0-4.0); LYMPHOCYTES % (AUTO) 27 % (12-44); MEAN CORPUSCULAR HEMOGLOBIN 26 pg (25-34); MEAN CORPUSCULAR HGB CONC 32 g/dL (32-36); MEAN CORPUSCULAR VOLUME 80 fL (80-99); MONOCYTES # (AUTO) 0.7 10^3/uL (0.0-1.0); MONOCYTES % (AUTO) 8 % (0-12); NEUTROPHILS # (AUTO) 5.4 10^3/uL (1.8-7.8); NEUTROPHILS % (AUTO) 63 % (42-75); PLATELET COUNT 217 10^3/uL (130-400); WHITE BLOOD COUNT 8.6 10^3/uL (4.3-11.0)
[2020-12-13 06:06] LABS: ALBUMIN 3.9 GM/DL (3.2-4.5); POTASSIUM 3.6 MMOL/L (3.6-5.0)
[2020-12-13 06:07] LABS: CALCIUM 9.3 MG/DL (8.5-10.1)
[2020-12-13 06:08] LABS: TOTAL PROTEIN 7.4 GM/DL (6.4-8.2)
[2020-12-13 06:10] LABS: BILIRUBIN,TOTAL 0.8 MG/DL (0.1-1.0)
[2020-12-13 06:12] LABS: CREATININE SERUM 1.35 MG/DL (0.60-1.30)
[2020-12-13 08:30] VITALS: BP 130/91
[2020-12-13] MEDS: METOCLOPRAMIDE INJ 10 MG/2 ML (REGLAN) IVP SCH ×3 (09:06→20:14)
[2020-12-13] MEDS: PANTOPRAZOLE 40 MG (PROTONIX) TAB PO SCH ×2 (09:07→16:22)
[2020-12-13] MEDS: FAMOTIDINE 20 MG (PEPCID) TABLET PO SCH ×2 (09:07→20:14)
[2020-12-13] MEDS: SPIRONOLACTONE 25 MG (ALDACTONE) TAB PO SCH (09:07)
[2020-12-13] MEDS: PROPRANOLOL 20 MG (INDERAL) TABLET PO SCH ×2 (09:08→20:14)
[2020-12-13 12:05] VITALS: BP 151/82
--- NOTE | 2020-12-13 13:57 | Progress Note ---
PATRICIA LINK MED STUDENT 12/13/20 5837: Subjective Subjective/Events-last exam This is Christie, a 50 yo F, here for nausea and vomiting. Pt states that she is unable to hold down any clears at this time. Even drinking water/sprite pt reports that she throws it up. Pt had a bm yesterday and has been having more gas today. Pt is more alert and talkative today and is not screaming in pain. Pt also mentioned that during her last EGD she stopped eating the night before and still had food in her stomach the next morning. Review of Systems General: No Chills; Fatigue Pulmonary: No Dyspnea, No Cough Cardiovascular: No: Chest Pain, Palpitations Gastrointestinal: Vomiting, Abdominal Pain; No: Diarrhea, Constipation Neurological: No: Weakness Focused Exam Respiratory: Chest Non Tender, Lungs Clear, Normal Breath Sounds, No Accessory Muscle Use, No Respiratory Distress Cardiovascular: Regular Rate, Rhythm, No Edema, No Murmur, Normal Peripheral Pulses Peripheral Pulses: 2+ Dorsalis Pedis (R), 2+ Left Dors-Pedis (L), 2+ Radial Pulses (R), 2+ Radial Pulses (L) Skin: normal color, warm/dry; No diaphoresis Objective Exam Last Set of Vital Signs Vital Signs Date Time Temp Pulse Resp B/P (MAP) Pulse Ox O2 Delivery O2 Flow Rate FiO2 12/13/20 12:05 36.6 86 20 151/82 (105) 95 Room Air Capillary Refill : Less Than 3 Seconds I&O Intake and Output 12/13/20 00:00 Intake Total 2000 ml Balance 2000 ml Intake Oral 0 ml IV Total 2000 ml # Voids 7 Daily Weight Change No General: Alert, Oriented X3, Cooperative, Mild Distress Neck: Supple Lungs: Clear to Auscultation, Normal Air Movement Heart: Regular Rate, Normal S1, Normal S2, No Murmurs Abdomen: Soft, Other (mild tenderness, decreased bowel sounds. ) Extremities: No Edema, Normal Pulses Psych/Mental Status: Mental Status NL, Mood NL Results/Procedures Lab Laboratory Tests 12/12/20 14:25: Sodium Level 142, Potassium Level 4.0, Chloride Level 104, Carbon Dioxide Level 24, Anion Gap 14, Blood Urea Nitrogen 11, Creatinine 1.41H, Estimat Glomerular Filtration Rate 39, BUN/Creatinine Ratio 8, Glucose Level 163H, Calcium Level 10.5H 12/13/20 04:02: Glucometer 156H 12/13/20 05:09: Sodium Level 143, Potassium Level 3.6, Chloride Level 109H, Carbon Dioxide Level 16L, Anion Gap 18H, Blood Urea Nitrogen 13, Creatinine 1.35H, Estimat Glomerular Filtration Rate 41, BUN/Creatinine Ratio 10, Glucose Level 147H, Calcium Level 9.3, White Blood Count 8.6, Red Blood Count 4.62, Hemoglobin 11.8, Hematocrit 37, Mean Corpuscular Volume 80, Mean Corpuscular Hemoglobin 26, Mean Corpuscular Hemoglobin Concent 32, Red Cell Distribution Width 17.6H, Platelet Count 217, Mean Platelet Volume 12.0, Immature Granulocyte % (Auto) 1, Neutrophils (%) (Auto) 63, Lymphocytes (%) (Auto) 27, Monocytes (%) (Auto) 8, Eosinophils (%) (Auto) 2, Basophils (%) (Auto) 1, Neutrophils # (Auto) 5.4, Lymphocytes # (Auto) 2.3, Monocytes # (Auto) 0.7, Eosinophils # (Auto) 0.1, Basophils # (Auto) 0.1, Immature Granulocyte # (Auto) 0.1, Corrected Calcium 9.4, Total Bilirubin 0.8, Aspartate Amino Transf (AST/SGOT) 22, Alanine Aminotransferase (ALT/SGPT) 19, Alkaline Phosphatase 51, Total Protein 7.4, Albumin 3.9 Assessment/Plan Assessment/Plan Admission Dx Intractable nausea and vomiting (1) Intractable nausea and vomiting Status: Acute Assessment & Plan: Lactated Ringer's at 100 mls/hr IV Zofran 4 mg Q4hr PRN Promethazine 25 gm Q6hr PRN Recommend outpatient gastric emptying study for possible diabetic gastroparesis. - Continue IVFs, IV Zofran/Phenergen, Encourage PO intake, needs outpatient workup 12/13/20 continue Zofran, promethazine and IVF Start Pantoprazole, Famotidine, propranolol, sprionolactone Continue pushing increased oral intake needs outpatient workup (2) Diabetes Status: Chronic Assessment & Plan: Continue home medication of Pioglitazone, Levemir and Invokana. - Continue home meds, Accuchecks, SSI, ADA diet Qualifiers: Qualified Codes: E11.65 - Type 2 diabetes mellitus with hyperglycemia; Z79.4 - detention (current) use of insulin (3) Acute kidney failure Status: Acute Assessment & Plan: - IVFs, Repeat BMP in AM 12/13/20 Creatinine of 1.35 continue IV fluids Qualifiers: Qualified Codes: N17.9 - Acute kidney failure, unspecified (4) Generalized abdominal pain Status: Acute MAYRA SHIPLEY MD 12/13/202046: Subjective Subjective/Events-last exam Patient seen and examined with MS4, agree with above HPI Review of Systems General: No Chills; Fatigue, Malaise Pulmonary: No Dyspnea, No Cough Cardiovascular: No: Chest Pain, Palpitations, Edema Gastrointestinal: Nausea, Abdominal Pain; No: Vomiting, Diarrhea, Constipation Genitourinary: No Dysuria, No Frequency, No Hematuria Neurological: No: Weakness, Incoordination Objective Exam General: Alert, Oriented X3, Cooperative, No Acute Distress HEENT: Mucous Memb Moist/[place] Neck: Supple Lungs: Clear to Auscultation, Normal Air Movement Heart: Regular Rate, No Murmurs Abdomen: Normal Bowel Sounds, Soft, Other (mild epigastric tenderness, decreased bowel sounds. ) Extremities: No Edema, No Tenderness/Swelling Skin: No Rashes Neuro: Normal Speech, Strength at 5/5 X4 Ext, Sensation Intact, Cranial Nerves 3-12 NL Psych/Mental Status: Mental Status NL, Mood NL Assessment/Plan Assessment/Plan (1) Intractable nausea and vomiting Status: Acute Assessment & Plan: Lactated Ringer's at 100 mls/hr IV Zofran 4 mg Q4hr PRN Promethazine 25 gm Q6hr PRN Recommend outpatient gastric emptying study for possible diabetic gastroparesis. - Continue IVFs, IV Zofran/Phenergen, Encourage PO intake, needs outpatient workup 12/13/20 continue Zofran, promethazine and IVF Start Pantoprazole, Famotidine, propranolol, sprionolactone Continue pushing increased oral intake needs outpatient workup - Improved from yesterday, continue to advance diet as tolerated (2) Diabetes Status: Chronic Assessment & Plan: Continue home medication of Pioglitazone, Levemir and Invokana. 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 I revi ewed and verified all information documented by the medical student and made modifications to such information, when appropriate. I personally performed the physical exam and medical decision making. Mayra Shipley, Dec 13, 2020,20:47 Dr Shipley's plan in Italics PATRICIA LINK MED STUDENT Dec 13, 2020 13:57 MAYRA SHIPLEY MD Dec 13, 2020 20:47
[2020-12-13 16:11] VITALS: BP 129/75
[2020-12-13 19:26] VITALS: BP 136/79
[2020-12-13] MEDS ORDERED: ATORVASTATIN 10 MG TABLET PO SCH (21:00)
[2020-12-14] MEDS: ONDANSETRON 4 MG/2 ML (SDV) Z0FRAN IVP PRN (00:11)
[2020-12-14 00:12] VITALS: BP 132/85
[2020-12-14 03:49] VITALS: BP 127/86
[2020-12-14] MEDS: LACTATED RINGERS 1,000 ML IV SCH (04:59)
[2020-12-14 05:55] LABS: POTASSIUM 3.4 MMOL/L (3.6-5.0)
[2020-12-14 05:56] LABS: CALCIUM 8.9 MG/DL (8.5-10.1)
[2020-12-14 06:01] LABS: CREATININE SERUM 1.13 MG/DL (0.60-1.30)
[2020-12-14] MEDS: PANTOPRAZOLE 40 MG (PROTONIX) TAB PO SCH (06:22)
[2020-12-14 07:45] VITALS: BP 122/81
[2020-12-14] MEDS: PROPRANOLOL 20 MG (INDERAL) TABLET PO SCH (08:07)
[2020-12-14] MEDS: SPIRONOLACTONE 25 MG (ALDACTONE) TAB PO SCH (08:07)
[2020-12-14] MEDS: FAMOTIDINE 20 MG (PEPCID) TABLET PO SCH (08:07)
[2020-12-14] MEDS: METOCLOPRAMIDE INJ 10 MG/2 ML (REGLAN) IVP SCH (08:08)
--- NOTE | 2020-12-14 09:55 | Discharge Summary ---
Diagnosis/Chief Complaint Date of Admission Dec 12, 2020 at 22:46 Date of Discharge Discharge Diagnosis Problems/Diagnosis: (1) Intractable nausea and vomiting Assessment & Plan: Lactated Ringer's at 100 mls/hr IV Zofran 4 mg Q4hr PRN Promethazine 25 gm Q6hr PRN Recommend outpatient gastric emptying study for possible diabetic gastroparesis. - Continue IVFs, IV Zofran/Phenergen, Encourage PO intake, needs outpatient workup 12/13/20 continue Zofran, promethazine and IVF Start Pantoprazole, Famotidine, propranolol, sprionolactone Continue pushing increased oral intake needs outpatient workup - Improved from yesterday, continue to advance diet as tolerated Status: Acute (2) Diabetes Assessment & Plan: Continue home medication of Pioglitazone, Levemir and Invokana. 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 Status: Chronic (3) Acute kidney failure Assessment & Plan: - IVFs, Repeat BMP in AM 12/13/20 Creatinine of 1.35 continue IV fluids - Will continue to monitor Cr Qualifiers: Qualified Codes: N17.9 - Acute kidney failure, unspecified Status: Acute (4) Generalized abdominal pain Status: Acute Chief Complaint/HPI Chief Complaint/HPI Patient seen and examined with MS4, agree with above HPI Discharge Summary-Simple/Stand Consultations Discharge Physical Examination Allergies: Coded Allergies: lisinopril (Verified Allergy, Mild, COUGH, 11/22/20) montelukast (Verified Allergy, Unknown, UNABLE TO REMEMBER REACTION, 11/22/20) Uncoded Allergies: METALS (Allergy, Unknown, 07/12/14) Vitals & I&Os Vital Sign - Last 12Hours Date Time Temp Pulse Resp B/P (MAP) Pulse Ox O2 Delivery O2 Flow Rate FiO2 12/14/20 08:00 Room Air 12/14/20 07:45 36.4 78 16 122/81 (95) 96 Intake and Output 12/14/20 00:00 Intake Total 830 ml Output Total 200 ml Balance 630 ml Hospital Course See final discharge diagnosis. Discharge Instructions to patient/family Please see electronic discharge instructions given to patient. Discharge Medications Reviewed and agree with Discharge Medication list on patient's Discharge Instruction sheet DEEPTI PIKE MD Dec 14, 2020 09:55
[2020-12-14] MEDS ORDERED: METO-310 PO (09:56)
--- NOTE | 2020-12-14 09:58 | Discharge Summary ---
Discharge [facility] Reconcile Patient Problems Problems Reviewed?: Yes Discharge Medications New, Converted or Re-Newed RX: Transmitted to Pharmacy New Medications: Metoclopramide HCl (Reglan) 10 Mg Tablet 10 MG PO TID, #90 TAB Continued Medications: Acetaminophen (Acetaminophen) 325 Mg Tablet 650 MG PO Q6H PRN for PAIN-MILD, TAB Atorvastatin Calcium (Atorvastatin Calcium) 10 Mg Tablet 10 MG PO HS, TAB Butalb/Acetaminophen/Caffeine (Bloqmr-Fdgmtttc-Wlve 50-325-40) 1 Each Tablet 1 EA PO QID PRN for MIGRAINE, TAB Canagliflozin (Invokana) 300 Mg Tablet 300 MG PO DAILY, TAB Desvenlafaxine Succinate (Desvenlafaxine Succinate ER) 100 Mg Tab.er.24h 100 MG PO DAILY, TAB Docusate Sodium (Docusate Sodium) 100 Mg Capsule 100 MG PO BID PRN for CONSTIPATION-1ST LINE, CAP Famotidine (Famotidine) 20 Mg Tablet 20 MG PO BID, TAB Gabapentin (Gabapentin) 600 Mg Tablet 600 MG PO TID LAST FILLED 10-16-2020 #90/30 DAY SUPPLY Insulin Detemir (Levemir Flextouch) 100 Unit/1 Ml Insuln.pen 15 UNIT SQ HS, EA Mirtazapine (Mirtazapine) 30 Mg Tablet 30 MG PO HS, TAB Pantoprazole Sodium (Pantoprazole Sodium) 40 Mg Tablet.dr 40 MG PO BID, TAB Pioglitazone HCl (Pioglitazone HCl) 45 Mg Tablet 45 MG PO DAILY, TAB Propranolol HCl (Propranolol HCl) 60 Mg Tablet 60 MG PO BID, TAB Quetiapine Fumarate (Quetiapine Fumarate) 400 Mg Tablet 400 MG PO HS, TAB Spironolactone (Spironolactone) 25 Mg Tablet 25 MG PO DAILY, TAB Tizanidine HCl (Tizanidine HCl) 4 Mg Tablet 4 MG PO TID PRN for MUSCLE SPASMS, TAB Discontinued Medications: Diclofenac Sodium (Diclofenac Sodium) 50 Mg Tablet.dr 50 MG PO BID, TAB LAST FILLED 07-27-2020 #180/90 DAY SUPPLY Patient Instructions Goal/Follow Up Appt: Keep your appt with Mauro next week Patient Instructions: - Eat small and bland meals until you see your PCP - Make sure to stay well hydrated Activity & Diet Discharge Diet: ADA Diet Activity as Tolerated: Yes Copy Copies To 1: [facility], DEEPTI Grimm MD 9, 2021 09:57
== END 2020-12-14 11:50 | disposition home or self-care (01) | DRG 392 ==
LOC: EDUNIT# 01:41 → ER 01:43 → 4TH 04:09 → OBSVTOIN 22:46 → 4TH 12-13 17:31
PROVIDERS: ADMIT Family Medicine; ATTEND Family Medicine
DX: R11.2 Nausea with vomiting, unspecified (principal); N17.9 Acute kidney failure, unspecified; E11.65 Type 2 diabetes mellitus with hyperglycemia; R10.9 Unspecified abdominal pain; G89.29 Other chronic pain; Z20.822 Contact with and (suspected) exposure to COVID-19; I10 Essential (primary) hypertension; F41.9 Anxiety disorder, unspecified; F32.9 Major depressive disorder, single episode, unspecified; Z79.4 Long term (current) use of insulin
CPT/HCPCS: 36415; 80048; 80053; 81000; 82947; 83735; 85025; 86141; 87636; G0378

== ENCOUNTER 2021-01-10 00:19 | Inpatient (IN) | payer MEDICARE, MEDICAID ==
[~2021-01-10] VITALS: Ht 160 cm; Wt 108.9 kg
[2021-01-10] VITALS (7 sets, daily range): BP systolic 125–163; BP diastolic 80–94
[~2021-01-10 00:19] MED LIST changes: +ATOR10TA66 PO; +DESV100T16 PO; +DICL50TA6 PO; +METO-310 PO; +QUET400T12 PO; -SULF1TAB35 PO; +SULF1TAB38 PO; +TIZA4TAB4 PO
[2021-01-10] MEDS ORDERED: ONDANSETRON 4 MG/2 ML (SDV) Z0FRAN IVP ONE (00:45)
[2021-01-10] MEDS ORDERED: LACTATED RINGERS 1,000 ML IV ONE (00:45)
[2021-01-10 00:51] LABS: BASOPHILS % (AUTO) 0 % (0-10); EOSINOPHILS % (AUTO) 0 % (0-10); HEMATOCRIT 36 % (35-52); HEMOGLOBIN 11.1 g/dL (11.5-16.0); LYMPHOCYTES % (AUTO) 32 % (12-44); MEAN CORPUSCULAR HEMOGLOBIN 25 pg (25-34); MEAN CORPUSCULAR HGB CONC 31 g/dL (32-36); MEAN CORPUSCULAR VOLUME 83 fL (80-99); MEAN PLATELET VOLUME 10.8 fL (9.0-12.2); MONOCYTES # (AUTO) 0.3 10^3/uL (0.0-1.0); MONOCYTES % (AUTO) 11 % (0-12); NEUTROPHILS # (AUTO) 1.7 10^3/uL (1.8-7.8); NEUTROPHILS % (AUTO) 57 % (42-75); PLATELET COUNT 161 10^3/uL (130-400)
[2021-01-10 01:02] LABS: ALBUMIN 3.8 GM/DL (3.2-4.5); CHLORIDE 104 MMOL/L (98-107); POTASSIUM 3.9 MMOL/L (3.6-5.0); SODIUM 142 MMOL/L (135-145)
[2021-01-10 01:03] LABS: CALCIUM 8.8 MG/DL (8.5-10.1)
[2021-01-10 01:04] LABS: GLUCOSE 124 MG/DL (70-105); TOTAL PROTEIN 7.4 GM/DL (6.4-8.2)
[2021-01-10 01:05] LABS: CARBON DIOXIDE 25 MMOL/L (21-32)
[2021-01-10 01:06] LABS: BILIRUBIN,TOTAL 0.4 MG/DL (0.1-1.0)
[2021-01-10 01:08] LABS: ALKALINE PHOSPHATASE 53 U/L (40-136); GFR ESTIMATED 39
[2021-01-10 01:09] LABS: BUN/CREATININE RATIO 16
[2021-01-10 01:11] LABS: ALANINE AMINOTRANSFERASE 17 U/L (0-55); MAGNESIUM 1.9 MG/DL (1.6-2.4)
[2021-01-10 01:12] LABS: LIPASE 33 U/L (8-78)
[2021-01-10 01:37] LABS: ANISOCYTOSIS SLIGHT; BAND NEUTROPHILS 3 %; LYMPHOCYTES % (MANUAL) 34 %; MICROCYTOSIS MODERATE; MONOCYTES % (MANUAL) 8 %; NEUTROPHILS % (MANUAL) 55 %
[2021-01-10] MEDS ORDERED: ENOXAPARIN 60 MG/0.6 ML (LOVENOX) SYR SC ONE (02:00)
--- NOTE | 2021-01-10 02:06 | ED General ---
General Chief Complaint: Cough/Cold/Flu Symptoms Stated Complaint: COVID+ Nursing Triage Note: PT TO ED ROOM 9 VIA EMS, PT IS A KNOWN POSITIVE, DX WITH COVID TODAY. PT VERBALIZES CONGESTION AND FEVER, DENIES NVD. DENIES VALERO. VERBALIZES SOBAND MIDSTERNAL CHEST DISCOMFORT Source of Information: Patient Exam Limitations: No Limitations History of Present Illness Date Seen by Provider: Jan 10, 2021 Time Seen by Provider: 00:21 Initial Comments This 50-year-old woman presents to the emergency room with symptoms related to COVID-19. She was diagnosed yesterday. She complains of chest congestion, pleuritic chest pain, chest heaviness, nausea and vomiting, fever, headache, and shortness of breath. She promptly states she needs to be admitted because she cannot care for herself at home. Allergies and Home Medications Allergies Coded Allergies: lisinopril (Verified Allergy, Mild, COUGH, 11/22/20) montelukast (Verified Allergy, Unknown, UNABLE TO REMEMBER REACTION, 11/22/20) Uncoded Allergies: METALS (Allergy, Unknown, 07/12/14) Home Medications Acetaminophen 325 Mg Tablet, 650 MG PO Q6H PRN for PAIN-MILD, (Reported) Atorvastatin Calcium 10 Mg Tablet, 10 MG PO HS, (Reported) Butalb/Acetaminophen/Caffeine 1 Each Tablet, 1 EA PO QID PRN for MIGRAINE, (Reported) Canagliflozin 300 Mg Tablet, 300 MG PO DAILY, (Reported) Desvenlafaxine Succinate 100 Mg Tab.er.24h, 100 MG PO DAILY, (Reported) Docusate Sodium 100 Mg Capsule, 100 MG PO BID PRN for CONSTIPATION-1ST LINE, (Reported) Famotidine 20 Mg Tablet, 20 MG PO BID, (Reported) Gabapentin 600 Mg Tablet, 600 MG PO TID, (Reported) LAST FILLED 10-16-2020 #90/30 DAY SUPPLY Insulin Detemir 100 Unit/1 Ml Insuln.pen, 15 UNIT SQ HS, (Reported) Metoclopramide HCl 10 Mg Tablet, 10 MG PO TID Prescribed by: DEEPTI PIKE on 12/14/20 0956 Mirtazapine 30 Mg Tablet, 30 MG PO HS, (Reported) Pantoprazole Sodium 40 Mg Tablet.dr, 40 MG PO BID, (Reported) Pioglitazone HCl 45 Mg Tablet, 45 MG PO DAILY, (Reported) Propranolol HCl 60 Mg Tablet, 60 MG PO BID, (Reported) Quetiapine Fumarate 400 Mg Tablet, 400 MG PO HS, (Reported) Spironolactone 25 Mg Tablet, 25 MG PO DAILY, (Reported) Tizanidine HCl 4 Mg Tablet, 4 MG PO TID PRN for MUSCLE SPASMS, (Reported) Patient Home Medication List Home Medication List Reviewed: Yes Review of Systems Review of Systems Constitutional: see HPI EENTM: no symptoms reported Respiratory: see HPI Cardiovascular: no symptoms reported Gastrointestinal: see HPI Genitourinary: no symptoms reported : No Musculoskeletal: no symptoms reported Skin: no symptoms reported Psychiatric/Neurological: See HPI Hematologic/Lymphatic: See HPI Immunological/Allergic: no symptoms reported Past Cuezdvi-Ilrdqp-Xewogy Hx Patient Social History Tobacco Use?: No Substance use?: No Alcohol Use?: No Immunizations Up To Date Tetanus Booster (TDap): Unknown Seasonal Allergies Seasonal Allergies: No Past Medical History Surgeries: Yes (D&C; RIGHT KNEE SCOPE X 2; EGD; CARDIAC CATH 2012--NO INTERVENTION) Cardiac, Eye Surgery, Orthopedic Respiratory: Yes Asthma Currently Using CPAP: No Currently Using BIPAP: No Cardiac: Yes (CARDIAC CATH 2012--NORMAL CORONARIES, NO INTERVENTION) Coronary Artery Disease, High Cholesterol, Hypertension Neurological: Yes Headaches /Migraines 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 Disorders: No Female 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 Disorders: Denies 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 Sexually Transmitted Disease: No Genitourinary: Yes Bladder Infection, Kidney Stones, Renal Failure Gastrointestinal: Yes Gastroesophageal Reflux, Hiatal Hernia, Irritable Bowel Musculoskeletal: Yes Fibromyalgia Endocrine: Yes (NON COMPLAINT) Diabetes, Non-Insulin dep HEENT: Yes (EYE SURGERY) Loss of Vision: Denies Hearing Impairment: Denies Cancer: No Psychosocial: Yes (EXTENSIVE PSYCH ISSUES) ADD/ADHD, Sleep Difficulties, Anxiety, PTSD, Depression Integumentary: No Blood Disorders: No Adverse Reaction/Blood Tranf: No Family Medical History Hypertension 19 FATHER CVA, GI Disease, Seizures Physical Exam Vital Signs Vital Signs - First Documented Capillary Refill : Less Than 3 Seconds Height, Weight, BMI Height: 5'3.00" Weight: 240lbs. 2.0oz. 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 as Tested Skin: Normal Color, Warm/Dry Progress/Results/Core Measures Suspected Sepsis SIRS Temperature: Pulse: 86 Respiratory Rate: 18 Laboratory Tests 01/10/21 00:43: White Blood Count 3.0L Blood Pressure 132 /84 Mean: 100 Laboratory Tests 01/10/21 00:43: Creatinine 1.40H, Platelet Count 161, Total Bilirubin 0.4 Results/Orders Lab Results Laboratory Tests Test 01/10/21 00:43 Range/Units White Blood Count 3.0 L 4.3-11.0 10^3/uL Red Blood Count 4.37 3.80-5.11 10^6/uL Hemoglobin 11.1 L 11.5-16.0 g/dL Hematocrit 36 35-52 % Mean Corpuscular Volume 83 80-99 fL Mean Corpuscular Hemoglobin 25 25-34 pg Mean Corpuscular Hemoglobin Concent 31 L 32-36 g/dL Red Cell Distribution Width 18.8 H 10.0-14.5 % Platelet Count 161 130-400 10^3/uL Mean Platelet Volume 10.8 9.0-12.2 fL Immature Granulocyte % (Auto) 0 % Neutrophils (%) (Auto) 57 42-75 % Lymphocytes (%) (Auto) 32 12-44 % Monocytes (%) (Auto) 11 0-12 % Eosinophils (%) (Auto) 0 0-10 % Basophils (%) (Auto) 0 0-10 % Neutrophils # (Auto) 1.7 L 1.8-7.8 10^3/uL Lymphocytes # (Auto) 1.0 1.0-4.0 10^3/uL Monocytes # (Auto) 0.3 0.0-1.0 10^3/uL Eosinophils # (Auto) 0.0 0.0-0.3 10^3/uL Basophils # (Auto) 0.0 0.0-0.1 10^3/uL Immature Granulocyte # (Auto) 0.0 0.0-0.1 10^3/uL Neutrophils % (Manual) 55 % Lymphocytes % (Manual) 34 % Monocytes % (Manual) 8 % Band Neutrophils 3 % Anisocytosis SLIGHT Microcytosis MODERATE D-Dimer 1.10 H 0.00-0.49 UG/ML Sodium Level 142 135-145 MMOL/L Potassium Level 3.9 3.6-5.0 MMOL/L Chloride Level 104 98-107 MMOL/L Carbon Dioxide Level 25 21-32 MMOL/L Anion Gap 13 5-14 MMOL/L Blood Urea Nitrogen 22 H 7-18 MG/DL Creatinine 1.40 H 0.60-1.30 MG/DL Estimat Glomerular Filtration Rate 39 BUN/Creatinine Ratio 16 Glucose Level 124 H 70-105 MG/DL Calcium Level 8.8 8.5-10.1 MG/DL Corrected Calcium 9.0 8.5-10.1 MG/DL Magnesium Level 1.9 1.6-2.4 MG/DL Total Bilirubin 0.4 0.1-1.0 MG/DL Aspartate Amino Transf (AST/SGOT) 27 5-34 U/L Alanine Aminotransferase (ALT/SGPT) 17 0-55 U/L Alkaline Phosphatase 53 40-136 U/L Troponin I < 0.028 <0.028 NG/ML C-Reactive Protein High Sensitivity 6.13 H 0.00-0.50 MG/DL Total Protein 7.4 6.4-8.2 GM/DL Albumin 3.8 3.2-4.5 GM/DL Lipase 33 8-78 U/L Procalcitonin 0.11 H <0.10 NG/ML My Orders Orders - LENNY BOYKIN MD Ondansetron Injection (Zofran Injectio (01/10/21 00:45) Ed Iv/Invasive Line Start (01/10/21 00:32) Lactated Ringers (Lr 1000 Ml Iv Solution (01/10/21 00:45) Cbc With Automated Diff (01/10/21 00:32) Comprehensive Metabolic Panel (01/10/21 00:32) Hs C Reactive Protein (01/10/21 00:32) Fibrin Degradation Products (01/10/21 00:32) Lipase (01/10/21 00:32) Magnesium (01/10/21 00:32) Troponin I (01/10/21 00:32) Procalcitonin (Pct) (01/10/21 00:32) Chest 1 View, Ap/Pa Only (01/10/21 00:32) Manual Differential (01/10/21 00:43) Enoxaparin Injection (Lovenox Injection) (01/10/21 02:00) Medications Given in ED Current Medications Medications Dose Ordered Sig/Kate Route Start Time Stop Time Status Last Admin Dose Admin Enoxaparin Sodium 120 mg ONCE ONCE SC 01/10/21 02:00 01/10/21 02:02 DC 01/10/21 02:54 120 MG Lactated Ringer's 1,000 ml @ 0 mls/hr Q0M ONCE IV 01/10/21 00:45 01/10/21 00:46 DC 01/10/21 01:16 1,000 MLS/HR Ondansetron HCl 8 mg ONCE ONCE IVP 01/10/21 00:45 01/10/21 00:46 DC 01/10/21 01:15 8 MG Vital Signs/I&O 01/10/21 01/10/21 00:19 00:19 Temp 38.7 Pulse 86 Resp 18 B/P (MAP) 132/84 (100) Pulse Ox 95 O2 Delivery Room Air Room Air Capillary Refill : Less Than 3 Seconds Blood Pressure Mean: 100 Progress Note : Progress Note Patient was treated with IV fluids, Zofran, and Toradol with much improvement. She was actually ready to go home but her D-dimer returned elevated. Because of her renal insufficiency she could not obtain a CT angiogram. She is therefore being anticoagulated with Lovenox and admitted for VQ scan later in the morning. She is agreeable to this plan. ECG Initial ECG Impression Date: Jan 10, 2021 Initial ECG Impression Time: 00:31 Initial ECG Rate: 79 Initial ECG Rhythm: Normal Sinus Comment Sinus rhythm with no ST elevation or depression. FL interval prolonged at 214 ms. No axis deviation. Diagnostic Imaging Diagonstic Imaging: Xray Plain Films/CT/US/NM/MRI: chest Comments Chest x-ray reviewed by me and report reviewed. See report below: NAME: [facility] REC#: [id number] PT STATUS: ADM Sammie : 1970 PHYSICIAN: LENNY BOYKIN MD ADMIT DATE: 01/10/21 Signed Date of Exam:01/10/21 CHEST 1 VIEW, AP/PA ONLY Indication: Shortness of breath, positive Covid Portable chest 1:25 AM Heart size and pulmonary vascularity are normal. There is some alveolar nodular opacities in the right lung and left lower lung. There are no effusions or pneumothoraces. IMPRESSION: Multifocal patchy alveolar nodular infiltrates consistent with Covid pneumonia Dictated by: Dictated on workstation # [id number] Dict: 01/10/2142 Trans: 01/10/2142 TCB [id number] Interpreted by: MIHIR SINGH MD Electronically signed by: MIHIR SINGH MD 01/10/2142 Departure Communication (Admissions) Time/Spoke to Admitting Phy: 01:55 Dr. Pike Impression Primary Impression: COVID-19 Additional Impressions: Nausea and vomiting Qualified Codes: R11.2 - Nausea with vomiting, unspecified Elevated d-dimer Chest pain Qualified Codes: R07.9 - Chest pain, unspecified Disposition: ADMITTED INPATIENT Condition: Improved Admissions Decision to Admit Reason: Admit from ER (General) Decision to Admit/Date: Jan 10, 2021 Time/Decision to Admit Time: 01:50 Departure-Patient Inst. Referrals: [facility]/ (PCP) Primary Care Physician ALISON STAPLES (Family) Primary Care Physician LENNY BOYKIN MD Jan 10, 2021 02:06
[2021-01-10] MEDS ORDERED: RT-ALBUTEROL HFA 8.5 GM INHALER IH PRN (03:45)
[2021-01-10] MEDS: LACTATED RINGERS 1,000 ML IV SCH ×3 (03:46→20:11)
[2021-01-10 06:09] LABS: POTASSIUM 4.1 MMOL/L (3.6-5.0)
[2021-01-10 06:10] LABS: CALCIUM 8.8 MG/DL (8.5-10.1)
[2021-01-10 06:15] LABS: CREATININE SERUM 1.19 MG/DL (0.60-1.30)
--- NOTE | 2021-01-10 07:44 | Diagnostic Imaging Report ---
Indication: Shortness of breath, positive Covid Portable chest 1:25 AM Heart size and pulmonary vascularity are normal. There is some alveolar nodular opacities in the right lung and left lower lung. There are no effusions or pneumothoraces. IMPRESSION: Multifocal patchy alveolar nodular infiltrates consistent with Covid pneumonia Dictated by: Dictated on workstation # [id number]
[2021-01-10] MEDS: FAMOTIDINE 20MG/2ML IV (PEPCID) IVP SCH ×2 (08:29→20:11)
[2021-01-10] MEDS: ONDANSETRON 4 MG/2 ML (SDV) Z0FRAN IV PRN (08:29)
[2021-01-10] MEDS: ACETAMINOPHEN 500 MG TAB (TYLENOL) PO PRN (08:35)
[2021-01-10] MEDS ORDERED: COVID-19 VACC,MRNA(MODERNA)/PF 100 MCG/0.5 ML VIAL IM ONE (12:45)
[2021-01-10] MEDS: guaiFENesin SYRUP 100 MG/5 ML 10 ML (ROBITUSSIN SF) PO PRN (14:00)
[2021-01-10] MEDS: PROMETHAZINE INJ 25 MG/ML (PHENERGAN) AMP IVP PRN ×2 (14:00→20:10)
[2021-01-10] MEDS ORDERED: EMPA10TA PO (15:05)
[2021-01-10] MEDS ORDERED: DICL50TA6 PO (15:05)
[2021-01-10] MEDS ORDERED: MTC10T PO (15:05)
[2021-01-10] MEDS ORDERED: ONDA4TAB11 PO (15:05)
[2021-01-10] MEDS: guaiFENesin (MUCINEX) 600 MG TAB PO SCH (20:11)
--- NOTE | 2021-01-10 21:51 | History & Physical ---
HPI History of Present Illness: 50 yo F that presents with worsening N/V found to be covid +. Patient states that she started feeling worse about 4-5 days ago. Denies any fevers or chills. She is unvaccinated. Denies any known contacts of covid. Patient has a long h/o N/V and is currently undergoing workup for DM autonomic neuropathy. Patient states that she is feeling better this AM but still having some nausea. Source: patient Exam Limitations: no limitations Date seen by provider: Jan 10, 2021 Time Seen by Provider: 11:15 Attending Physician Deepti Shipley MD PCP Center/[facility] [place] Consult Date of Admission Jan 10, 2021 at 02:01 Home Medications Home Medications Reviewed patient Home Medication Reconciliation performed by pharmacy medication reconciliations audio/video technician and/or nursing. Patients Allergies have been reviewed. Allergies Coded Allergies: lisinopril (Verified Allergy, Mild, COUGH, 11/22/20) montelukast (Verified Allergy, Unknown, UNABLE TO REMEMBER REACTION, 11/22/20) Uncoded Allergies: METALS (Allergy, Unknown, 07/12/14) BKV-Eiobhb-Cnoapt Hx Patient Social History Smoking Status: Never a Smoker 2nd Hand Smoke Exposure: No Recent Hopitalizations: No Alcohol Use?: No Have you traveled recently?: No Immunizations Up To Date Tetanus Booster (TDap): Unknown Past Medical History Chronic abdominal pain IDDM HTN Anxiety Depression Family Medical History Significant Family History: CVA, GI Disease, Seizures Family History: Hypertension 19 FATHER Review of Systems (CHC) Constitutional: malaise, weakness EENTM: no symptoms reported; No mouth pain, No nose congestion, No nose pain Respiratory: cough; No dyspnea on exertion, No short of breath Cardiovascular: no symptoms reported; No chest pain, No edema, No palpitations Gastrointestinal: abdominal pain; No constipation; diarrhea, loss of appetite, nausea, vomiting Genitourinary: no symptoms reported; No dysuria, No frequency, No hematuria : No Musculoskeletal: no symptoms reported Skin: no symptoms reported Psychiatric/Neurological: No Symptoms Reported Reviewed Test Results Reviewed Test Results Lab Laboratory Tests Test 01/10/21 00:43 01/10/21 05:55 01/10/21 09:37 01/10/21 15:59 Range/Units White Blood Count 3.0 L 4.3-11.0 10^3/uL Red Blood Count 4.37 3.80-5.11 10^6/uL Hemoglobin 11.1 L 11.5-16.0 g/dL Hematocrit 36 35-52 % Mean Corpuscular Volume 83 80-99 fL Mean Corpuscular Hemoglobin 25 25-34 pg Mean Corpuscular Hemoglobin Concent 31 L 32-36 g/dL Red Cell Distribution Width 18.8 H 10.0-14.5 % Platelet Count 161 130-400 10^3/uL Mean Platelet Volume 10.8 9.0-12.2 fL Immature Granulocyte % (Auto) 0 % Neutrophils (%) (Auto) 57 42-75 % Lymphocytes (%) (Auto) 32 12-44 % Monocytes (%) (Auto) 11 0-12 % Eosinophils (%) (Auto) 0 0-10 % Basophils (%) (Auto) 0 0-10 % Neutrophils # (Auto) 1.7 L 1.8-7.8 10^3/uL Lymphocytes # (Auto) 1.0 1.0-4.0 10^3/uL Monocytes # (Auto) 0.3 0.0-1.0 10^3/uL Eosinophils # (Auto) 0.0 0.0-0.3 10^3/uL Basophils # (Auto) 0.0 0.0-0.1 10^3/uL Immature Granulocyte # (Auto) 0.0 0.0-0.1 10^3/uL Neutrophils % (Manual) 55 % Lymphocytes % (Manual) 34 % Monocytes % (Manual) 8 % Band Neutrophils 3 % Anisocytosis SLIGHT Microcytosis MODERATE D-Dimer 1.10 H 0.00-0.49 UG/ML Sodium Level 142 141 135-145 MMOL/L Potassium Level 3.9 4.1 3.6-5.0 MMOL/L Chloride Level 104 104 98-107 MMOL/L Carbon Dioxide Level 25 25 21-32 MMOL/L Anion Gap 13 12 5-14 MMOL/L Blood Urea Nitrogen 22 H 19 H 7-18 MG/DL Creatinine 1.40 H 1.19 0.60-1.30 MG/DL Estimat Glomerular Filtration Rate 39 48 BUN/Creatinine Ratio 16 16 Glucose Level 124 H 113 H 70-105 MG/DL Calcium Level 8.8 8.8 8.5-10.1 MG/DL Corrected Calcium 9.0 8.5-10.1 MG/DL Magnesium Level 1.9 1.6-2.4 MG/DL Total Bilirubin 0.4 0.1-1.0 MG/DL Aspartate Amino Transf (AST/SGOT) 27 5-34 U/L Alanine Aminotransferase (ALT/SGPT) 17 0-55 U/L Alkaline Phosphatase 53 40-136 U/L Troponin I < 0.028 <0.028 NG/ML C-Reactive Protein High Sensitivity 6.13 H 5.99 H 0.00-0.50 MG/DL Total Protein 7.4 6.4-8.2 GM/DL Albumin 3.8 3.2-4.5 GM/DL Lipase 33 8-78 U/L Procalcitonin 0.11 H 0.10 H <0.10 NG/ML Glucometer 128 H 105 70-110 MG/DL Test 01/10/21 19:08 Range/Units Glucometer 98 70-110 MG/DL Physical Exam-(CHC) Physical Exam Vital Signs VS - Last 72 Hours, by Label 01/10/21 01/10/21 01/10/21 01/10/21 00:19 00:19 03:12 03:23 Temp 38.7 36.4 36.4 Pulse 86 83 82 Resp 18 18 18 B/P (MAP) 132/84 (100) 125/86 (99) 139/80 (99) Pulse Ox 95 95 94 O2 Delivery Room Air Room Air Room Air Room Air 01/10/21 01/10/21 01/10/21 01/10/21 03:36 03:56 08:00 08:00 Temp 36.4 36.6 Pulse 82 86 Resp 20 B/P (MAP) 146/86 (106) Pulse Ox 94 95 97 97 O2 Delivery Room Air Room Air Room Air 01/10/21 01/10/21 01/10/21 12:19 16:00 19:13 Temp 36.5 37.3 36.9 Pulse 84 91 98 Resp 20 18 20 B/P (MAP) 138/88 (105) 143/85 (104) 163/94 (117) Pulse Ox 96 96 96 O2 Delivery Room Air Room Air Room Air Capillary Refill : Less Than 3 Seconds General Appearance: WD/WN, no apparent distress, obese HEENT: PERRL/EOMI Neck: non-tender, full range of motion, supple, normal inspection Respiratory: chest non-tender, lungs clear, normal breath sounds, no respiratory distress, no accessory muscle use Cardiovascular: normal peripheral pulses, regular rate, rhythm, no edema, no murmur Gastrointestinal: normal bowel sounds, soft, distended; No guarding, No rebound, No tenderness Back: no CVA tenderness, no vertebral tenderness Extremities: normal range of motion, non-tender, normal inspection, no pedal edema, no calf tenderness, normal capillary refill Neurologic/Psychiatric: profile grinder II-XII nml as tested, no motor/sensory deficits, alert, normal mood/affect, oriented x 3 Skin: normal color, warm/dry Lymphatic: no adenopathy Assessment/Plan Assessment/Plan Admission Status: Observation (1) Nausea and vomiting Status: Acute Assessment & Plan: - Zofran/Phenergen/Reglan, CLD, will advance as tolerated Qualifiers: Qualified Codes: R11.2 - Nausea with vomiting, unspecified (2) COVID-19 Status: Acute (3) Elevated d-dimer Status: Acute Assessment & Plan: - Lovenox (4) Acute kidney failure Status: Resolved (5) Insulin dependent diabetes mellitus with complications Status: Chronic Assessment & Plan: - Continue home insulin, Accucheck AC/HS (6) 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
[2021-01-10] MEDS: MIRTAZAPINE 15 MG (REMERON) TAB PO SCH (22:53)
[2021-01-10] MEDS: QUEtiapine 200 MG (SEROquel) TAB IMMEDIATE RELEASE PO SCH (22:53)
[2021-01-11 03:31] VITALS: BP 110/62
[2021-01-11] MEDS: LACTATED RINGERS 1,000 ML IV SCH ×3 (03:47→16:44)
[2021-01-11] MEDS: METOCLOPRAMIDE 10 MG (REGLAN) TAB PO SCH ×3 (05:42→16:44)
[2021-01-11] MEDS: PANTOPRAZOLE 40 MG (PROTONIX) TAB PO SCH ×2 (05:42→16:44)
[2021-01-11 06:56] LABS: BASOPHILS % (AUTO) 0 % (0-10); EOSINOPHILS % (AUTO) 0 % (0-10); HEMATOCRIT 33 % (35-52); HEMOGLOBIN 10.3 g/dL (11.5-16.0); LYMPHOCYTES # (AUTO) 1.3 10^3/uL (1.0-4.0); LYMPHOCYTES % (AUTO) 37 % (12-44); MEAN CORPUSCULAR HEMOGLOBIN 26 pg (25-34); MEAN CORPUSCULAR HGB CONC 31 g/dL (32-36); MEAN CORPUSCULAR VOLUME 83 fL (80-99); MEAN PLATELET VOLUME 11.2 fL (9.0-12.2); MONOCYTES # (AUTO) 0.3 10^3/uL (0.0-1.0); MONOCYTES % (AUTO) 9 % (0-12); NEUTROPHILS # (AUTO) 1.8 10^3/uL (1.8-7.8); NEUTROPHILS % (AUTO) 53 % (42-75); PLATELET COUNT 144 10^3/uL (130-400); WHITE BLOOD COUNT 3.4 10^3/uL (4.3-11.0)
[2021-01-11 07:13] LABS: ALBUMIN 3.2 GM/DL (3.2-4.5); BILIRUBIN,TOTAL 0.4 MG/DL (0.1-1.0); CALCIUM 8.5 MG/DL (8.5-10.1); CREATININE SERUM 0.9 MG/DL (0.60-1.30); POTASSIUM 3.7 MMOL/L (3.6-5.0); TOTAL PROTEIN 6.7 GM/DL (6.4-8.2)
--- NOTE | 2021-01-11 07:22 | Progress Note - Hospitalist ---
Subjective HPI/CC On Admission Date Seen by Provider: Jan 11, 2021 Time Seen by Provider: 11:00 Subjective/Events-last exam Patient reports no new issues Nausea and vomiting is a chronic issue She is drinking a little bit of fluids IV fluids continue Nuclear scan was completed unknown results Monitor closely Review of Systems Gastrointestinal: Nausea, Vomiting Objective Exam Vital Signs Vital Signs Date Time Temp Pulse Resp B/P (MAP) Pulse Ox O2 Delivery O2 Flow Rate FiO2 01/12/21 03:48 39.0 118 20 140/84 (102) 91 Room Air Capillary Refill : Less Than 3 Seconds General Appearance: No Apparent Distress, WD/WN, Chronically ill, Obese Respiratory: No Accessory Muscle Use, No Respiratory Distress, Decreased Breath Sounds Cardiovascular: Regular Rate, Rhythm Neurologic/Psychiatric: Alert, Oriented x3, Depressed Affect Results/Procedures Lab Laboratory Tests 01/11/21 06:46 Patient resulted labs reviewed. Assessment/Plan Assessment and Plan Assess & Plan/Chief Complaint Assessment: COVID-19 Nausea and vomiting acute on chronic Obesity Elevated D-dimer nuclear scan results pending DVT prophylaxis with Lovenox Dehydration Diabetes mellitus Acute kidney injury now resolved Plan: Lovenox Supportive care KAMILLE PHILLIP DO Jan 11, 2021 07:22
[2021-01-11 08:14] VITALS: BP 107/69
[2021-01-11] MEDS: FAMOTIDINE 20MG/2ML IV (PEPCID) IVP SCH ×2 (09:39→20:26)
[2021-01-11] MEDS: guaiFENesin (MUCINEX) 600 MG TAB PO SCH ×2 (09:39→20:25)
[2021-01-11] MEDS: ONDANSETRON 4 MG/2 ML (SDV) Z0FRAN IV PRN ×2 (10:32→20:26)
[2021-01-11 12:00] VITALS: BP 126/82
[2021-01-11] MEDS: PROMETHAZINE INJ 25 MG/ML (PHENERGAN) AMP IVP PRN ×2 (12:32→20:26)
[2021-01-11] MEDS: guaiFENesin SYRUP 100 MG/5 ML 10 ML (ROBITUSSIN SF) PO PRN (12:32)
[2021-01-11 15:59] VITALS: BP 129/73
[2021-01-11 19:11] VITALS: BP 134/81
[2021-01-11] MEDS: ACETAMINOPHEN 500 MG TAB (TYLENOL) PO PRN (20:26)
[2021-01-11] MEDS: QUEtiapine 200 MG (SEROquel) TAB IMMEDIATE RELEASE PO SCH (20:27)
[2021-01-11] MEDS: MIRTAZAPINE 15 MG (REMERON) TAB PO SCH (20:27)
[2021-01-11 23:19] VITALS: BP 108/76
[2021-01-12] MEDS: PROMETHAZINE INJ 25 MG/ML (PHENERGAN) AMP IVP PRN ×3 (00:47→21:34)
[2021-01-12] MEDS: ONDANSETRON 4 MG/2 ML (SDV) Z0FRAN IV PRN ×3 (00:48→21:34)
[2021-01-12] MEDS: guaiFENesin SYRUP 100 MG/5 ML 10 ML (ROBITUSSIN SF) PO PRN (00:48)
[2021-01-12] MEDS: LACTATED RINGERS 1,000 ML IV SCH ×2 (00:49→11:11)
[2021-01-12 03:48] VITALS: BP 140/84
[2021-01-12] MEDS: inSUlin ASPART (NovoLOG) 1 UNIT/0.01 ML (CHARGE PER UNIT) SC SCH ×4 (05:52→21:34)
[2021-01-12 06:07] LABS: BASOPHILS % (AUTO) 0 % (0-10); EOSINOPHILS % (AUTO) 0 % (0-10); HEMATOCRIT 35 % (35-52); HEMOGLOBIN 10.9 g/dL (11.5-16.0); LYMPHOCYTES % (AUTO) 20 % (12-44); MEAN CORPUSCULAR HEMOGLOBIN 26 pg (25-34); MEAN CORPUSCULAR HGB CONC 31 g/dL (32-36); MEAN CORPUSCULAR VOLUME 82 fL (80-99); MEAN PLATELET VOLUME 10.4 fL (9.0-12.2); MONOCYTES # (AUTO) 0.3 10^3/uL (0.0-1.0); MONOCYTES % (AUTO) 5 % (0-12); NEUTROPHILS # (AUTO) 3.8 10^3/uL (1.8-7.8); NEUTROPHILS % (AUTO) 74 % (42-75); PLATELET COUNT 173 10^3/uL (130-400); WHITE BLOOD COUNT 5.1 10^3/uL (4.3-11.0)
[2021-01-12] MEDS: PANTOPRAZOLE 40 MG (PROTONIX) TAB PO SCH ×2 (06:13→16:36)
[2021-01-12] MEDS: METOCLOPRAMIDE 10 MG (REGLAN) TAB PO SCH ×3 (06:13→16:36)
[2021-01-12] MEDS: CEFEPIME INJECTION 1,000 MG in WATER (STERILE) FOR INJECTION 10 ML IV SCH ×3 (06:13→16:36)
[2021-01-12 06:18] LABS: ALBUMIN 3.7 GM/DL (3.2-4.5)
[2021-01-12 06:19] LABS: POTASSIUM 3.8 MMOL/L (3.6-5.0)
[2021-01-12 06:20] LABS: CALCIUM 8.8 MG/DL (8.5-10.1)
[2021-01-12 06:21] LABS: TOTAL PROTEIN 7.2 GM/DL (6.4-8.2)
[2021-01-12 06:23] LABS: BILIRUBIN,TOTAL 0.4 MG/DL (0.1-1.0)
[2021-01-12 07:44] LABS: ABG BASE EXCESS -2.2 MMOL/L (-2.5-2.5); ABG OXYGEN SATURATION 92 % (94-100); ABG PCO2 39 MMHG (35-45); ABG PH 7.38 (7.37-7.43); ABG PO2 70 MMHG (79-93); ABG TCO2 22.8 MMOL/L (21.0-31.0); ALLENS TEST YES-POS; INSPIRED O2 ROOM AIR; PATIENT TEMP 102.3; VENTILATOR NO
[2021-01-12] MEDS ORDERED: REMDESIVIR INJ 200 MG in NS (IVPB) 210 ML IV ONE (08:00)
[2021-01-12] MEDS: guaiFENesin (MUCINEX) 600 MG TAB PO SCH ×2 (08:33→21:34)
[2021-01-12] MEDS: AZITHROMYCIN INJECTION 500 MG in NS (IVPB) 250 ML IV SCH (08:33)
--- NOTE | 2021-01-12 08:38 | Diagnostic Imaging Report ---
INDICATION: Covid positive, fevers. EXAMINATION: Chest 01/12/2021 COMPARISON: 01/10/2021 FINDINGS: Diffuse bilateral infiltrates noted. Infiltrate in the right mid lung has worsened. There are no effusions. There is no pneumothorax. Heart and pulmonary vasculature stable. IMPRESSION: 1. Diffuse bilateral infiltrates worsened in the right midlung. Dictated by: Dictated on workstation # [id number]
[2021-01-12 08:45] VITALS: BP 133/73
[2021-01-12] MEDS: MIRTAZAPINE 15 MG (REMERON) TAB PO SCH ×2 (09:00→21:35)
[2021-01-12] MEDS ORDERED: ENOXAPARIN 40 MG/0.4 ML (LOVENOX) SYR SC SCH (09:00)
[2021-01-12] MEDS: QUEtiapine 200 MG (SEROquel) TAB IMMEDIATE RELEASE PO SCH ×2 (09:00→21:34)
[2021-01-12] MEDS: FAMOTIDINE 20MG/2ML IV (PEPCID) IVP SCH ×2 (09:27→21:34)
[2021-01-12] MEDS: ACETAMINOPHEN 500 MG TAB (TYLENOL) PO PRN ×2 (09:28→21:34)
--- NOTE | 2021-01-12 11:48 | Progress Note - Hospitalist ---
Subjective HPI/CC On Admission Date Seen by Provider: Jan 12, 2021 Time Seen by Provider: 10:00 Subjective/Events-last exam Patient running a fever Chest x-ray labs completed Change multiple meds High risk for decompensation Decreasing IV fluids to prevent volume overload but she isn't able to eat or drink much Arterial blood gas shows PaO2 of 70 Review of Systems General: Fatigue, Malaise Pulmonary: Dyspnea, Cough Focused Exam Lactate Level 01/12/21 07:45: Lactic Acid Level 0.72 Objective Exam Vital Signs Vital Signs Date Time Temp Pulse Resp B/P (MAP) Pulse Ox O2 Delivery O2 Flow Rate FiO2 01/13/21 04:14 36.4 100 22 142/77 (98) 92 Nasal Cannula 5.00 Capillary Refill : Less Than 3 Seconds General Appearance: No Apparent Distress, WD/WN, Chronically ill Respiratory: Lungs Clear (Switch him to get home), Normal Breath Sounds, Decreased Breath Sounds Cardiovascular: Regular Rate, Rhythm Neurologic/Psychiatric: Alert, Oriented x3, Depressed Affect Results/Procedures Lab Laboratory Tests 01/13/21 05:26 Patient resulted labs reviewed. Assessment/Plan Assessment and Plan Assess & Plan/Chief Complaint Assessment: COVID-19 Nausea and vomiting acute on chronic Obesity Elevated D-dimer nuclear scan results pending DVT prophylaxis with Lovenox Dehydration Diabetes mellitus Acute kidney injury now resolved Plan: Lovenox Supportive care 01/12/2021: IV antibiotics Pancultured Monitor chest x-ray High risk for decompensation KAMILLE PHILLIP DO Jan 12, 2021 11:48
--- NOTE | 2021-01-12 12:05 | Diagnostic Imaging Report ---
PROCEDURE: Nuclear medicine perfusion lung scan. COMPARISON: Chest radiograph 01/10/2021. CLINICAL HISTORY: Covid. Shortness of air. Cough. Procedure: Ventilation study was not performed due to current COVID precautions. Perfusion study is performed with 5 mCi mCi Tc 99m MAA. Findings: Ill-defined incomplete nonsegmental perfusion defects in the upper lobes posteriorly are indeterminate, particularly given the multifocal airspace opacities on the chest radiograph. Impression: Intermediate probability of pulmonary embolism. Examination is limited by both lack of a ventilation phase due to current Covid precautions and known multifocal airspace opacities due to Covid pneumonitis. Dictated by: Dictated on workstation # [id number]
[2021-01-12 12:20] VITALS: BP 135/71
[2021-01-12 16:00] VITALS: BP 132/80
[2021-01-12 20:33] VITALS: BP 133/80
[2021-01-12] MEDS ORDERED: ENOXAPARIN 100 MG/1 ML (LOVENOX) SYR SC ONE (21:30)
[2021-01-12 23:30] VITALS: BP 137/84
[2021-01-13] VITALS (7 sets, daily range): BP systolic 128–145; BP diastolic 63–94
[2021-01-13] MEDS: CEFEPIME INJECTION 1,000 MG in WATER (STERILE) FOR INJECTION 10 ML IV SCH ×4 (00:58→17:54)
[2021-01-13] MEDS: LACTATED RINGERS 1,000 ML IV SCH (04:12)
[2021-01-13 05:47] LABS: BASOPHILS % (AUTO) 0 % (0-10); EOSINOPHILS % (AUTO) 0 % (0-10); HEMATOCRIT 34 % (35-52); HEMOGLOBIN 10.3 g/dL (11.5-16.0); LYMPHOCYTES # (AUTO) 0.8 10^3/uL (1.0-4.0); LYMPHOCYTES % (AUTO) 17 % (12-44); MEAN CORPUSCULAR HEMOGLOBIN 25 pg (25-34); MEAN CORPUSCULAR HGB CONC 30 g/dL (32-36); MEAN CORPUSCULAR VOLUME 84 fL (80-99); MEAN PLATELET VOLUME 11.4 fL (9.0-12.2); MONOCYTES # (AUTO) 0.2 10^3/uL (0.0-1.0); MONOCYTES % (AUTO) 4 % (0-12); NEUTROPHILS # (AUTO) 3.4 10^3/uL (1.8-7.8); NEUTROPHILS % (AUTO) 78 % (42-75); PLATELET COUNT 165 10^3/uL (130-400); WHITE BLOOD COUNT 4.4 10^3/uL (4.3-11.0)
[2021-01-13 06:11] LABS: ALBUMIN 3.5 GM/DL (3.2-4.5); POTASSIUM 3.5 MMOL/L (3.6-5.0)
[2021-01-13 06:12] LABS: CALCIUM 8.8 MG/DL (8.5-10.1)
[2021-01-13 06:15] LABS: BILIRUBIN,TOTAL 0.3 MG/DL (0.1-1.0)
[2021-01-13] MEDS: inSUlin ASPART (NovoLOG) 1 UNIT/0.01 ML (CHARGE PER UNIT) SC SCH ×4 (06:16→20:58)
[2021-01-13 06:17] LABS: CREATININE SERUM 0.9 MG/DL (0.60-1.30)
[2021-01-13] MEDS: METOCLOPRAMIDE 10 MG (REGLAN) TAB PO SCH ×3 (06:33→17:54)
[2021-01-13] MEDS: PANTOPRAZOLE 40 MG (PROTONIX) TAB PO SCH ×2 (06:33→13:00)
[2021-01-13] MEDS: REMDESIVIR INJ 100 MG in NS (IVPB) 230 ML IV SCH (08:37)
[2021-01-13] MEDS: AZITHROMYCIN INJECTION 500 MG in NS (IVPB) 250 ML IV SCH (08:41)
[2021-01-13] MEDS: guaiFENesin (MUCINEX) 600 MG TAB PO SCH ×2 (08:42→20:57)
[2021-01-13] MEDS: FAMOTIDINE 20MG/2ML IV (PEPCID) IVP SCH ×2 (08:42→20:57)
[2021-01-13] MEDS: ENOXAPARIN 300 MG/3 ML (LOVENOX) MULTI-DOSE VIAL SQ SCH ×2 (08:46→20:58)
--- NOTE | 2021-01-13 09:11 | Diagnostic Imaging Report ---
EXAM: Portable erect AP chest at 3:57 AM INDICATION: Pneumonia FINDINGS: The heart is stable in size when compared to the prior exam of 01/12/2021. The diffuse alveolar/interstitial pulmonary infiltrates seen previously are again evident. The density in both upper lobes is perhaps slightly greater than on the prior study. The mediastinum is not widened. The osseous structures are intact. IMPRESSION: The appearance of the chest has worsened since the prior study as there does seem to be somewhat greater involvement of both upper lobes by pneumonia/atelectasis. A follow-up exam would be recommended for further evaluation. Dictated by: Dictated on workstation # [id number]
[2021-01-13] MEDS: MIRTAZAPINE 15 MG (REMERON) TAB PO SCH (09:51)
[2021-01-13] MEDS: QUEtiapine 200 MG (SEROquel) TAB IMMEDIATE RELEASE PO SCH (09:52)
[2021-01-13] MEDS ORDERED: KCL 20 MEQ TAB (K-DUR) PO ONE (10:15)
[2021-01-13] MEDS ORDERED: FUROSEMIDE 40 MG/4 ML INJ (LASIX) IVP ONE (12:30)
[2021-01-13] MEDS ORDERED: [UNRECOGNIZED DRUG - REMARK] IV ONE (13:15)
--- NOTE | 2021-01-13 13:15 | Progress Note - Hospitalist ---
Subjective HPI/CC On Admission Date Seen by Provider: Jan 13, 2021 Time Seen by Provider: 13:00 Subjective/Events-last exam Patient now on 6 L of oxygen Progressing quickly Swab was positive on when symptoms began Patient feels better gastrointestinal chacko Acute on chronic nausea and vomiting is much improved she was able to eat Jell-O Chest x-ray is worse Labs are a bit worse Actemra indicated and I obtained informed consent and discussed the mechanism of action. Patient is high risk for progression to Vapotherm and BiPAP and ventilation and . Review of Systems General: Fatigue Pulmonary: Dyspnea, Cough Focused Exam Lactate Level 01/12/21 07:45: Lactic Acid Level 0.72 Objective Exam Vital Signs Vital Signs Date Time Temp Pulse Resp B/P (MAP) Pulse Ox O2 Delivery O2 Flow Rate FiO2 01/13/21 16:26 92 Nasal Cannula 6.00 01/13/21 15:36 37.6 130 22 130/90 (103) Capillary Refill : Less Than 3 Seconds General Appearance: No Apparent Distress, WD/WN, Chronically ill Respiratory: No Accessory Muscle Use, No Respiratory Distress, Accessory Muscle Use (Subtle), Decreased Breath Sounds Cardiovascular: Regular Rate, Rhythm Neurologic/Psychiatric: Alert, Oriented x3 Results/Procedures Lab Laboratory Tests 01/13/21 05:26 Patient resulted labs reviewed. Assessment/Plan Assessment and Plan Assess & Plan/Chief Complaint Assessment: COVID-19 Nausea and vomiting acute on chronic Obesity Elevated D-dimer nuclear scan results pending DVT prophylaxis with Lovenox Dehydration Diabetes mellitus Acute kidney injury now resolved Plan: Lovenox Supportive care 01/12/2021: IV antibiotics Pancultured Monitor chest x-ray High risk for decompensation 01/13/2021: Rapidly progressing Actemra infusion KAMILLE PHILLIP DO Jan 13, 2021 13:15
[2021-01-13] MEDS ORDERED: TOCILIZUMAB INJECTION (NON-FOR 800 MG in NS (IVPB) 60 ML IV ONE (14:00)
[2021-01-13] MEDS ORDERED: RT-ALBUTEROL HFA 8.5 GM INHALER IH PRN (16:00)
[2021-01-13] MEDS: RT-ALBUTEROL HFA 8.5 GM INHALER IH SCH ×2 (16:26→21:07)
[2021-01-13] MEDS: ACETAMINOPHEN 500 MG TAB (TYLENOL) PO PRN (20:57)
[2021-01-13] MEDS: PROMETHAZINE INJ 25 MG/ML (PHENERGAN) AMP IVP PRN (20:57)
[2021-01-14] MEDS: CEFEPIME INJECTION 1,000 MG in WATER (STERILE) FOR INJECTION 10 ML IV SCH ×4 (00:29→17:27)
[2021-01-14] MEDS: RT-ALBUTEROL HFA 8.5 GM INHALER IH SCH ×4 (02:02→20:15)
[2021-01-14 04:00] VITALS: BP 115/68
--- NOTE | 2021-01-14 05:52 | Diagnostic Imaging Report ---
Clinical indication: Patient with pneumonia. Patient Covid positive and history of fevers. Exam: Portable chest x-ray semiupright view. Comparisons: Portable chest x-ray dated 01/13/2021. Findings: There is slight progression of silhouetting of the left hemidiaphragm and left heart border. There is slight increased airspace opacities in right lung base. Diffuse bilateral lung infiltrates are again seen with consolidation in the right upper lobe noted. These findings appear to have minimally progressed. There is no pleural effusion or pneumothorax. Pulmonary vasculature and cardiac silhouette are partially obscured but are stable. Bones show no significant interval abnormality. IMPRESSION: There is diffuse bilateral lung infiltrates again seen which is minimally progressed in both lung bases. Dictated by: Dictated on workstation # [id number]
[2021-01-14 05:53] LABS: BASOPHILS % (AUTO) 0 % (0-10); EOSINOPHILS % (AUTO) 0 % (0-10); HEMATOCRIT 33 % (35-52); HEMOGLOBIN 9.7 g/dL (11.5-16.0); LYMPHOCYTES # (AUTO) 0.9 10^3/uL (1.0-4.0); LYMPHOCYTES % (AUTO) 25 % (12-44); MEAN CORPUSCULAR HEMOGLOBIN 25 pg (25-34); MEAN CORPUSCULAR HGB CONC 30 g/dL (32-36); MEAN CORPUSCULAR VOLUME 85 fL (80-99); MEAN PLATELET VOLUME 11.3 fL (9.0-12.2); MONOCYTES # (AUTO) 0.3 10^3/uL (0.0-1.0); MONOCYTES % (AUTO) 9 % (0-12); NEUTROPHILS # (AUTO) 2.2 10^3/uL (1.8-7.8); NEUTROPHILS % (AUTO) 62 % (42-75); PLATELET COUNT 210 10^3/uL (130-400); WHITE BLOOD COUNT 3.5 10^3/uL (4.3-11.0)
[2021-01-14 06:04] LABS: ALBUMIN 3.4 GM/DL (3.2-4.5)
[2021-01-14 06:05] LABS: POTASSIUM 3.4 MMOL/L (3.6-5.0)
[2021-01-14 06:06] LABS: CALCIUM 8.6 MG/DL (8.5-10.1)
[2021-01-14 06:09] LABS: BILIRUBIN,TOTAL 0.3 MG/DL (0.1-1.0)
[2021-01-14] MEDS: inSUlin ASPART (NovoLOG) 1 UNIT/0.01 ML (CHARGE PER UNIT) SC SCH ×4 (06:09→20:18)
[2021-01-14 06:11] LABS: CREATININE SERUM 0.9 MG/DL (0.60-1.30)
[2021-01-14] MEDS: PANTOPRAZOLE 40 MG (PROTONIX) TAB PO SCH ×2 (06:29→16:20)
[2021-01-14] MEDS: METOCLOPRAMIDE 10 MG (REGLAN) TAB PO SCH ×3 (06:29→16:20)
[2021-01-14 08:00] VITALS: BP 134/85
[2021-01-14] MEDS: REMDESIVIR INJ 100 MG in NS (IVPB) 230 ML IV SCH (08:53)
[2021-01-14] MEDS: guaiFENesin (MUCINEX) 600 MG TAB PO SCH ×2 (08:58→20:23)
[2021-01-14] MEDS: ENOXAPARIN 300 MG/3 ML (LOVENOX) MULTI-DOSE VIAL SQ SCH ×2 (08:59→20:37)
[2021-01-14] MEDS: AZITHROMYCIN INJECTION 500 MG in NS (IVPB) 250 ML IV SCH (10:03)
[2021-01-14] MEDS: FAMOTIDINE 20MG/2ML IV (PEPCID) IVP SCH ×2 (10:04→20:23)
--- NOTE | 2021-01-14 10:48 | Progress Note - Hospitalist ---
Subjective HPI/CC On Admission Date Seen by Provider: Jan 14, 2021 Time Seen by Provider: 10:00 Subjective/Events-last exam Pt on six liters of high flow Very fatigued today Actemra was given yesterday Hopefully we can prevent the progression and decline in function Pulmonology consult agreed with close monitoring of this patient since high risk for progression Review of Systems General: Fatigue, Malaise Pulmonary: Dyspnea Focused Exam Lactate Level 01/12/21 07:45: Lactic Acid Level 0.72 Objective Exam Vital Signs Vital Signs Date Time Temp Pulse Resp B/P (MAP) Pulse Ox O2 Delivery O2 Flow Rate FiO2 01/15/21 03:19 36.4 106 16 118/66 (83) 91 Vapotherm 20.00 70.00 01/15/21 03:05 70 Capillary Refill : Less Than 3 Seconds General Appearance: No Apparent Distress, WD/WN, Chronically ill, Obese Respiratory: No Respiratory Distress, Accessory Muscle Use, Decreased Breath Sounds Cardiovascular: Regular Rate, Rhythm Neurologic/Psychiatric: Alert, Oriented x3 Results/Procedures Lab Laboratory Tests 01/14/21 05:22 Patient resulted labs reviewed. Assessment/Plan Assessment and Plan Assess & Plan/Chief Complaint Assessment: COVID-19 Nausea and vomiting acute on chronic Obesity Elevated D-dimer nuclear scan results pending DVT prophylaxis with Lovenox Dehydration Diabetes mellitus Acute kidney injury now resolved Plan: Lovenox Supportive care 01/12/2021: IV antibiotics Pancultured Monitor chest x-ray High risk for decompensation 01/13/2021: Rapidly progressing Actemra infusion 01/14/2021: Supportive care Weinberg catheter Vapotherm High risk for progression KAMILLE PHILLIP DO Jan 14, 2021 10:48
[2021-01-14 12:00] VITALS: BP 155/85
[2021-01-14 15:27] VITALS: BP 143/86
--- NOTE | 2021-01-14 18:09 | Tele-ICU Consult ---
History of Present Illness History of Present Illness Date Seen by Provider: Jan 14, 2021 Time Seen by Provider: 17:30 Date of Admission Patient acknowledged, consented, and participated in this virtual visit which was conducted using real time audio/video. Thank you for asking us to see this patient for respiratory insufficiency and distress due to Covid infection. Unvaccinated. HPC: Recent events: Admitted 01/10. Now feeling much better. PMH: HTN, GERD, HL, DM IBS. SH: smoking history: Never. FH: Non-contributory ROS: nil other than in HPI PE: VSS. Conversant. Obese. O2 sat while resting 92-95% on 6 LPM, Drops to 80- 82% with exertion. HEENT: No obvious masses, adenopathy or JVD. Chest: clear to auscultation but very decreased. CV: RRR S1 S2 No murmur or added sounds. Abd: Non-tender. Bowel sounds Y. : Unremarkable. Weinberg N . LEAN SIX SIGMA BLACK BELT/psychiatric: Alert and oriented, grossly intact. No obvious focal findings. Extremities: Trace edema. Capillary refill < 3 seconds. Skin: unremarkable. Results: Elevated BG . Decreased WCC 3.5 Hb 9.7. A/P: Respiratory insufficiency/distress: much better. Available chart/ vitals / labs / Images reviewed. CXR: extensive B infilts. Video assessment done using teleICU camera, rest of exam as per RN. Respiratory: Continue present management with Duonebs, Cefipime, Guille., remdes., Dex. AZT. Monitor for increasing oxygenation needs and/or need for ICU transfer. Discussed with RN. Asked RN to reach out to eICU if any questions or concerns later. Time spent with patient/coordination of care with other health professionals (mins): 25 Allergies and Home Medications Allergies Coded Allergies: lisinopril (Verified Allergy, Mild, COUGH, 11/22/20) montelukast (Verified Allergy, Unknown, UNABLE TO REMEMBER REACTION, 11/22/20) Uncoded Allergies: METALS (Allergy, Unknown, 07/12/14) Home Medications Atorvastatin Calcium 10 Mg Tablet, 10 MG PO HS, (Reported) Desvenlafaxine Succinate 100 Mg Tab.er.24h, 100 MG PO DAILY, (Reported) Diclofenac Sodium 50 Mg Tablet.dr, 50 MG PO BID, (Reported) Docusate Sodium 100 Mg Capsule, 100 MG PO BID, (Reported) Empagliflozin 10 Mg Tablet, 10 MG PO DAILY, (Reported) Famotidine 20 Mg Tablet, 20 MG PO BID, (Reported) Gabapentin 600 Mg Tablet, 600 MG PO TID, (Reported) Insulin Detemir 100 Unit/1 Ml Insuln.pen, 15 UNIT SQ HS, (Reported) Metoclopramide HCl 10 Mg Tablet, 10 MG PO TID, (Reported) Mirtazapine 30 Mg Tablet, 30 MG PO HS, (Reported) Ondansetron 4 Mg Tab.rapdis, 4 MG PO Q8H PRN for NAUSEA/VOMITING-1ST LINE, (Reported) Pantoprazole Sodium 40 Mg Tablet.dr, 40 MG PO BID, (Reported) Pioglitazone HCl 45 Mg Tablet, 45 MG PO DAILY, (Reported) Propranolol HCl 60 Mg Tablet, 60 MG PO BID, (Reported) Quetiapine Fumarate 400 Mg Tablet, 400 MG PO HS, (Reported) Tizanidine HCl 4 Mg Tablet, 4 MG PO TID PRN for MUSCLE SPASMS, (Reported) Past Medical/Social/Family Hx Patient Social History Tobacco Use?: No Smoking Status: Never a Smoker Smokeless Tobacco Frequency: Never a User Use of E-Cig and/or Vaping dev: No Substance use?: No Alcohol Use?: No Pt stated abuse/neglect: No Immunizations Up To Date Tetanus Booster (TDap): Unknown Hepatitis A: No Hepatitis B: No TB Skin Test: None Current Status status: No status: No Advance Directives: No Communicates: Verbally Primary Language: Togolese Preferred Spoken Language: Togolese Is interpretation needed?: No Sensory deficits: Vision impairment Implanted or Applied Medical D: None Past Medical History Chronic abdominal pain IDDM HTN Anxiety Depression Review of Systems Constitutional: see HPI EENTM: see HPI Respiratory: see HPI Cardiovascular: see HPI Gastrointestinal: see HPI Genitourinary: see HPI Musculoskeletal: see HPI Skin: see HPI Psychiatric/Neurological: See HPI All Other Systems Reviewed Negative Unless Noted: Yes Sepsis Event Evaluation Height, Weight, BMI Height: 5'3.00" Weight: 240lbs. 2.0oz. [id number]; 49.06 BMI Method:Stated Exam Exam Patient acknowledged, consented, and participated in this virtual visit which was conducted using real time audio/video Vital Signs Date Time Temp Pulse Resp B/P (MAP) Pulse Ox O2 Delivery O2 Flow Rate FiO2 01/14/21 15:27 36.7 88 18 143/86 (105) 95 High Flow N/C 7.00 01/14/21 14:48 92 Nasal Cannula 6.00 01/14/21 12:00 36.0 84 24 155/85 (108) 93 High Flow N/C 7.00 01/14/21 08:00 36.1 113 28 134/85 (101) 90 High Flow N/C 7.00 01/14/21 08:00 93 High Flow N/C 7.00 01/14/21 07:51 93 Nasal Cannula 6.00 01/14/21 04:00 37.1 94 18 115/68 (84) 93 High Flow N/C 6.00 01/14/21 02:02 92 Nasal Cannula 5.00 01/13/21 23:30 36.8 101 20 129/63 (85) 95 High Flow N/C 6.00 01/13/21 20:13 38.1 104 22 128/74 (92) 90 High Flow N/C 6.00 01/13/21 20:00 Nasal Cannula 6.00 I & O 01/14/21 07:00 Intake Total 3312 ml Output Total 950 ml Balance 2362 ml Height & Weight Height: 5'3.00" Weight: 240lbs. 2.0oz. 108.018224gp; 49.06 BMI Method:Stated General Appearance: No Apparent Distress, WD/WN, Chronically ill HEENT: PERRL/EOMI, Normal ENT Inspection Neck: Normal Inspection Respiratory: No Accessory Muscle Use, No Respiratory Distress, Accessory Muscle Use (Subtle), Decreased Breath Sounds Cardiovascular: Regular Rate, Rhythm Capillary Refill: Less Than 3 Seconds Gastrointestinal: normal bowel sounds, soft, distended; No guarding, No rebound, No tenderness Extremity: Normal Inspection, Normal Range of Motion, Non Tender, No Pedal Edema Neurologic/Psychiatric: Alert, Oriented x3 Skin: Normal Color, Warm/Dry Results Lab Laboratory Tests 01/13/21 05:26 01/14/21 05:22 Assessment/Plan Assessment/Plan See free text Critical Care: Critically Ill Patient Time spent on discussion(mins): 0 VASHTI RAYMOND MD Jan 14, 2021 18:09
[2021-01-14 19:42] VITALS: BP 155/77
[2021-01-14] MEDS: MIRTAZAPINE 15 MG (REMERON) TAB PO SCH (20:23)
[2021-01-14] MEDS: QUEtiapine 200 MG (SEROquel) TAB IMMEDIATE RELEASE PO SCH (20:23)
[2021-01-14 23:30] VITALS: BP 113/62
[2021-01-15] MEDS: CEFEPIME INJECTION 1,000 MG in WATER (STERILE) FOR INJECTION 10 ML IV SCH ×5 (01:14→23:14)
[2021-01-15 03:19] VITALS: BP 118/66
[2021-01-15] MEDS: RT-ALBUTEROL HFA 8.5 GM INHALER IH SCH ×4 (03:47→22:14)
[2021-01-15] MEDS: inSUlin ASPART (NovoLOG) 1 UNIT/0.01 ML (CHARGE PER UNIT) SC SCH ×4 (05:36→20:39)
[2021-01-15] MEDS: METOCLOPRAMIDE 10 MG (REGLAN) TAB PO SCH ×3 (05:37→17:17)
[2021-01-15] MEDS: PANTOPRAZOLE 40 MG (PROTONIX) TAB PO SCH ×2 (05:37→16:20)
[2021-01-15 06:38] LABS: BASOPHILS % (AUTO) 0 % (0-10); EOSINOPHILS % (AUTO) 0 % (0-10); HEMATOCRIT 33 % (35-52); HEMOGLOBIN 9.9 g/dL (11.5-16.0); LYMPHOCYTES # (AUTO) 1.3 10^3/uL (1.0-4.0); LYMPHOCYTES % (AUTO) 30 % (12-44); MEAN CORPUSCULAR HEMOGLOBIN 25 pg (25-34); MEAN CORPUSCULAR HGB CONC 30 g/dL (32-36); MEAN CORPUSCULAR VOLUME 86 fL (80-99); MEAN PLATELET VOLUME 10.5 fL (9.0-12.2); MONOCYTES # (AUTO) 0.4 10^3/uL (0.0-1.0); MONOCYTES % (AUTO) 9 % (0-12); NEUTROPHILS # (AUTO) 2.5 10^3/uL (1.8-7.8); NEUTROPHILS % (AUTO) 56 % (42-75); PLATELET COUNT 234 10^3/uL (130-400); WHITE BLOOD COUNT 4.4 10^3/uL (4.3-11.0)
[2021-01-15 06:52] LABS: ALBUMIN 3.4 GM/DL (3.2-4.5); POTASSIUM 3.3 MMOL/L (3.6-5.0)
[2021-01-15 06:54] LABS: CALCIUM 8.6 MG/DL (8.5-10.1)
[2021-01-15 06:55] LABS: TOTAL PROTEIN 6.8 GM/DL (6.4-8.2)
[2021-01-15 06:57] LABS: BILIRUBIN,TOTAL 0.3 MG/DL (0.1-1.0)
[2021-01-15 06:58] LABS: CREATININE SERUM 0.82 MG/DL (0.60-1.30)
[2021-01-15 08:00] VITALS: BP 129/78
[2021-01-15] MEDS: FAMOTIDINE 20MG/2ML IV (PEPCID) IVP SCH ×2 (08:21→20:16)
[2021-01-15] MEDS: guaiFENesin (MUCINEX) 600 MG TAB PO SCH ×2 (08:21→20:16)
[2021-01-15] MEDS: REMDESIVIR INJ 100 MG in NS (IVPB) 230 ML IV SCH (08:21)
[2021-01-15] MEDS: AZITHROMYCIN INJECTION 500 MG in NS (IVPB) 250 ML IV SCH (08:22)
[2021-01-15] MEDS: ENOXAPARIN 300 MG/3 ML (LOVENOX) MULTI-DOSE VIAL SQ SCH ×2 (08:23→20:53)
--- NOTE | 2021-01-15 09:47 | Diagnostic Imaging Report ---
EXAMINATION: Portable erect AP chest at 9:01 AM INDICATION: Pneumonia, Covid The heart is borderline enlarged but stable when compared to 01/14/2021. The diffuse alveolar/interstitial pulmonary infiltrates involving both lungs seen on the prior study are again evident and not significantly changed. The mediastinum is not widened. The osseous structures are intact. IMPRESSION: Stable chest. There has been no adverse change since the prior exam. A follow-up study would be recommended for continued evaluation. Dictated by: Dictated on workstation # [id number]
[2021-01-15 09:59] LABS: ABG BASE EXCESS 1.8 MMOL/L (-2.5-2.5); ABG OXYGEN SATURATION 96 % (94-100); ABG PCO2 44 MMHG (35-45); ABG PH 7.39 (7.37-7.43); ABG PO2 80 MMHG (79-93)
[2021-01-15 10:00] LABS: ALLENS TEST YES-POS; INSPIRED O2 75%; PATIENT TEMP 35.6; VENTILATOR NO
--- NOTE | 2021-01-15 11:17 | Progress Note - Hospitalist ---
Subjective HPI/CC On Admission Date Seen by Provider: Jan 15, 2021 Time Seen by Provider: 10:30 Subjective/Events-last exam Pt having some significant problems, now on Vapotherm She has been eating a little bit Becomes tearful at times, but I tried to reassure her Actemra hopefully will start affecting and improving lung function Review of Systems General: Fatigue, Malaise Pulmonary: Dyspnea, Cough Objective Exam Vital Signs Vital Signs Date Time Temp Pulse Resp B/P (MAP) Pulse Ox O2 Delivery O2 Flow Rate FiO2 01/16/21 02:03 94 Vapotherm 25.00 75 01/15/21 23:14 36.8 109 20 122/68 (86) Capillary Refill : Less Than 3 Seconds General Appearance: No Apparent Distress, WD/WN, Chronically ill, Obese Respiratory: No Accessory Muscle Use, No Respiratory Distress, Decreased Breath Sounds Cardiovascular: Regular Rate, Rhythm Neurologic/Psychiatric: Alert, Oriented x3, Depressed Affect Results/Procedures Lab Laboratory Tests 01/15/21 06:27 Patient resulted labs reviewed. Assessment/Plan Assessment and Plan Assess & Plan/Chief Complaint Assessment: COVID-19 Nausea and vomiting acute on chronic Obesity Elevated D-dimer nuclear scan results pending DVT prophylaxis with Lovenox Dehydration Diabetes mellitus Acute kidney injury now resolved Plan: Lovenox Supportive care 01/12/2021: IV antibiotics Pancultured Monitor chest x-ray High risk for decompensation 01/13/2021: Rapidly progressing Actemra infusion 01/14/2021: Supportive care Weinberg catheter Vapotherm High risk for progression 01/15/2021: Vapotherm Supportive care Check chest x-ray in the morning Critical Care Critically Ill Patient KAMILLE PHILLIP DO Jan 15, 2021 11:17
--- NOTE | 2021-01-15 11:33 | Pulmonary Progress Note ---
Subjective Date Seen by a Provider: Jan 15, 2021 Time Seen by a Provider: 11:31 Subjective/Events-last exam patient is using vapotherm; feeling better; has a johnston hence exercise tolerance was not assess yet Sepsis Event Evaluation Height, Weight, BMI Height: 5'3.00" Weight: 240lbs. 2.0oz. 108.774634zl; 49.06 BMI Method:Stated Exam Exam Patient acknowledged, consented, and participated in this virtual visit which was conducted using real time audio/video Vital Signs Date Time Temp Pulse Resp B/P (MAP) Pulse Ox O2 Delivery O2 Flow Rate FiO2 01/15/21 09:52 97 Vapotherm 25.00 75 01/15/21 08:00 97 Vapotherm 25.00 75 01/15/21 08:00 35.6 91 22 129/78 (95) 91 Vapotherm 20.00 70.00 01/15/21 03:19 36.4 106 16 118/66 (83) 91 Vapotherm 20.00 70.00 01/15/21 03:05 92 Vapotherm 25.00 70 01/14/21 23:30 36.0 65 18 113/62 (79) 97 High Flow N/C 15.00 01/14/21 20:45 94 Vapotherm 25.00 75 01/14/21 20:15 91 Vapotherm 25.00 75 01/14/21 19:42 36.6 87 20 155/77 (103) 92 High Flow N/C 15.00 01/14/21 15:27 36.7 88 18 143/86 (105) 95 High Flow N/C 7.00 01/14/21 14:48 92 Nasal Cannula 6.00 01/14/21 12:00 36.0 84 24 155/85 (108) 93 High Flow N/C 7.00 I & O 01/15/21 07:00 Intake Total 1800 ml Output Total 225 ml Balance 1575 ml Height & Weight Height: 5'3.00" Weight: 240lbs. 2.0oz. 108.204929ck; 49.06 BMI Method:Stated General Appearance: No Apparent Distress, WD/WN, Chronically ill, Mild Distress, Obese HEENT: PERRL/EOMI, Normal ENT Inspection Neck: Normal Inspection Respiratory: No Respiratory Distress, Accessory Muscle Use, Decreased Breath Sounds Cardiovascular: Regular Rate, Rhythm Capillary Refill: Less Than 3 Seconds Gastrointestinal: normal bowel sounds, soft, distended; No guarding, No rebound, No tenderness Extremity: Normal Inspection, Normal Range of Motion, Non Tender, No Pedal Edema Neurologic/Psychiatric: Alert, Oriented x3 Skin: Normal Color, Warm/Dry Results Lab Laboratory Tests 01/14/21 05:22 01/15/21 06:27 Assessment/Plan Assessment/Plan Acute hypoxemic resp failure -due to covid pna/ possible bacterial coinfection -dexa/ lovenox/ abx/ -ro vte dc johnston start short walk inside the rooms as tolerated ERVIN ARRIAGA MD Jan 15, 2021 11:33
[2021-01-15 12:00] VITALS: BP 133/70
[2021-01-15 16:00] VITALS: BP 153/77
[2021-01-15 19:15] VITALS: BP 148/89
[2021-01-15] MEDS: MIRTAZAPINE 15 MG (REMERON) TAB PO SCH (20:16)
[2021-01-15] MEDS: QUEtiapine 200 MG (SEROquel) TAB IMMEDIATE RELEASE PO SCH (20:16)
[2021-01-15 23:14] VITALS: BP 122/68
[2021-01-16] MEDS: RT-ALBUTEROL HFA 8.5 GM INHALER IH SCH ×4 (02:03→21:10)
[2021-01-16 04:00] VITALS: BP 126/70
[2021-01-16 05:49] LABS: BASOPHILS % (AUTO) 0 % (0-10); EOSINOPHILS % (AUTO) 1 % (0-10); HEMATOCRIT 33 % (35-52); HEMOGLOBIN 9.9 g/dL (11.5-16.0); LYMPHOCYTES # (AUTO) 1.4 10^3/uL (1.0-4.0); LYMPHOCYTES % (AUTO) 30 % (12-44); MEAN CORPUSCULAR HEMOGLOBIN 26 pg (25-34); MEAN CORPUSCULAR HGB CONC 30 g/dL (32-36); MEAN CORPUSCULAR VOLUME 86 fL (80-99); MEAN PLATELET VOLUME 10.9 fL (9.0-12.2); MONOCYTES # (AUTO) 0.3 10^3/uL (0.0-1.0); MONOCYTES % (AUTO) 6 % (0-12); NEUTROPHILS # (AUTO) 2.6 10^3/uL (1.8-7.8); NEUTROPHILS % (AUTO) 56 % (42-75); PLATELET COUNT 251 10^3/uL (130-400); WHITE BLOOD COUNT 4.7 10^3/uL (4.3-11.0)
[2021-01-16 06:03] LABS: ALBUMIN 3.2 GM/DL (3.2-4.5); POTASSIUM 3.3 MMOL/L (3.6-5.0)
[2021-01-16 06:04] LABS: CALCIUM 8.6 MG/DL (8.5-10.1)
[2021-01-16] MEDS: CEFEPIME INJECTION 1,000 MG in WATER (STERILE) FOR INJECTION 10 ML IV SCH ×4 (06:04→23:45)
[2021-01-16 06:05] LABS: TOTAL PROTEIN 6.4 GM/DL (6.4-8.2)
[2021-01-16] MEDS: inSUlin ASPART (NovoLOG) 1 UNIT/0.01 ML (CHARGE PER UNIT) SC SCH ×4 (06:06→21:13)
[2021-01-16 06:07] LABS: BILIRUBIN,TOTAL 0.4 MG/DL (0.1-1.0)
[2021-01-16 06:09] LABS: CREATININE SERUM 0.82 MG/DL (0.60-1.30)
--- NOTE | 2021-01-16 07:05 | Diagnostic Imaging Report ---
INDICATION: Respiratory distress. Comparison with 01/15/2021. FINDINGS: Lungs show improved aeration. There also has been some decrease in density of the infiltrates bilaterally especially in the right lower lung and throughout the left lung. There continues to be a rather dense consolidated infiltrate in the right upper lobe. The heart is mildly enlarged. No pneumothorax. Small left basilar effusion. IMPRESSION: Bilateral alveolar infiltrates with overall improvement demonstrated since previous day's exam. Dictated by: Dictated on workstation # [id number]
[2021-01-16 08:00] VITALS: BP 118/68
--- NOTE | 2021-01-16 08:25 | Tele-ICU Progress Note ---
Subjective Date Seen by a Provider: Jan 16, 2021 Time Seen by a Provider: 08:00 Subjective/Events-last exam Per RN Naima pt unchanged with no overnight changes on Vapotherm 85%. No new recommendations. Will sign off. Please call if questions. Sepsis Event Evaluation Height, Weight, BMI Height: 5'3.00" Weight: 240lbs. 2.0oz. 108.675226qq; 49.06 BMI Method:Stated Exam Exam Patient acknowledged, consented, and participated in this virtual visit which was conducted using real time audio/video Vital Signs Date Time Temp Pulse Resp B/P (MAP) Pulse Ox O2 Delivery O2 Flow Rate FiO2 01/16/21 07:03 94 Vapotherm 30.00 85 01/16/21 04:00 36.4 102 18 126/70 (88) 95 Vapotherm 25.00 75.00 01/16/21 02:03 94 Vapotherm 25.00 75 01/15/21 23:14 36.8 109 20 122/68 (86) 93 Vapotherm 25.00 75.00 01/15/21 22:15 92 Vapotherm 25.00 75 01/15/21 20:00 96 Vapotherm 25.00 75 01/15/21 19:15 36.4 106 22 148/89 (108) 91 Vapotherm 20.00 70.00 01/15/21 16:00 36.4 104 20 153/77 (102) 91 Vapotherm 25.00 75.00 01/15/21 14:33 90 Vapotherm 25.00 75 01/15/21 12:00 36.0 106 22 133/70 (91) 91 Vapotherm 20.00 70.00 01/15/21 09:52 97 Vapotherm 25.00 75 l I & O 01/16/21 07:00 Intake Total 2150 ml Output Total 900 ml Balance 1250 ml Height & Weight Height: 5'3.00" Weight: 240lbs. 2.0oz. 108.312337ej; 49.06 BMI Method:Stated General Appearance: No Apparent Distress, WD/WN, Chronically ill, Obese HEENT: PERRL/EOMI, Normal ENT Inspection Neck: Normal Inspection Respiratory: No Accessory Muscle Use, No Respiratory Distress, Decreased Breath Sounds Cardiovascular: Regular Rate, Rhythm Capillary Refill: Less Than 3 Seconds Gastrointestinal: normal bowel sounds, soft, distended; No guarding, No rebound, No tenderness Extremity: Normal Inspection, Normal Range of Motion, Non Tender, No Pedal Edema Neurologic/Psychiatric: Alert, Oriented x3, Depressed Affect Skin: Normal Color, Warm/Dry Results Lab Laboratory Tests 01/15/21 06:27 01/16/21 05:38 Assessment/Plan Assessment/Plan see free text VASHTI RAYMOND MD Jan 16, 2021 08:25
[2021-01-16] MEDS: REMDESIVIR INJ 100 MG in NS (IVPB) 230 ML IV SCH (09:00)
[2021-01-16] MEDS: KCL 20 MEQ TAB (K-DUR) PO SCH (09:00)
[2021-01-16] MEDS: PANTOPRAZOLE 40 MG (PROTONIX) TAB PO SCH ×2 (09:00→16:42)
[2021-01-16] MEDS: METOCLOPRAMIDE 10 MG (REGLAN) TAB PO SCH ×3 (09:00→16:41)
[2021-01-16] MEDS: AZITHROMYCIN INJECTION 500 MG in NS (IVPB) 250 ML IV SCH (09:04)
[2021-01-16] MEDS: guaiFENesin (MUCINEX) 600 MG TAB PO SCH ×2 (09:05→21:13)
[2021-01-16] MEDS: ENOXAPARIN 300 MG/3 ML (LOVENOX) MULTI-DOSE VIAL SQ SCH ×2 (09:05→21:13)
[2021-01-16] MEDS: FAMOTIDINE 20MG/2ML IV (PEPCID) IVP SCH ×2 (09:05→21:14)
[2021-01-16 12:00] VITALS: BP 117/65
--- NOTE | 2021-01-16 12:08 | Progress Note - Hospitalist ---
Subjective HPI/CC On Admission Date Seen by Provider: Jan 16, 2021 Time Seen by Provider: 11:00 Subjective/Events-last exam Pt still on Vapotherm but feels a million percent better she reports No major issues Midline was placed due to poor IV access It was hopeful the Actemra would be helpful and it appears to be once again helping people around the third day after infusion Review of Systems General: Fatigue, Malaise Pulmonary: Dyspnea, Cough Objective Exam Vital Signs Vital Signs Date Time Temp Pulse Resp B/P (MAP) Pulse Ox O2 Delivery O2 Flow Rate FiO2 01/17/21 03:50 36.8 104 18 126/70 (88) 92 Vapotherm 30.00 85.00 01/17/21 03:11 85 Capillary Refill : Less Than 3 Seconds General Appearance: No Apparent Distress, WD/WN, Anxious, Chronically ill, Obese, Other (Improved) Respiratory: No Accessory Muscle Use, No Respiratory Distress, Decreased Breath Sounds Cardiovascular: Regular Rate, Rhythm Neurologic/Psychiatric: Alert, Oriented x3 Results/Procedures Lab Laboratory Tests 01/16/21 05:38 Patient resulted labs reviewed. Assessment/Plan Assessment and Plan Assess & Plan/Chief Complaint Assessment: COVID-19 status post Actemra Nausea and vomiting acute on chronic Obesity Elevated D-dimer nuclear scan results pending DVT prophylaxis with Lovenox Dehydration Diabetes mellitus Acute kidney injury now resolved Plan: Lovenox Supportive care 01/12/2021: IV antibiotics Pancultured Monitor chest x-ray High risk for decompensation 01/13/2021: Rapidly progressing Actemra infusion 01/14/2021: Supportive care Weinberg catheter Vapotherm High risk for progression 01/15/2021: Vapotherm Supportive care Check chest x-ray in the morning 01/16/2021: Patient much improved Wean oxygen if possible Critical Care Critically Ill Patient KAMILLE PHILLIP DO Jan 16, 2021 12:08
[2021-01-16 15:49] VITALS: BP 134/75
[2021-01-16 20:13] VITALS: BP 123/77
[2021-01-16] MEDS: MIRTAZAPINE 15 MG (REMERON) TAB PO SCH (21:13)
[2021-01-16] MEDS: QUEtiapine 200 MG (SEROquel) TAB IMMEDIATE RELEASE PO SCH (21:13)
[2021-01-16 23:44] VITALS: BP 114/55
[2021-01-17] MEDS: RT-ALBUTEROL HFA 8.5 GM INHALER IH SCH ×4 (03:11→20:35)
[2021-01-17 03:50] VITALS: BP 126/70
[2021-01-17] MEDS: inSUlin ASPART (NovoLOG) 1 UNIT/0.01 ML (CHARGE PER UNIT) SC SCH ×4 (05:20→20:30)
[2021-01-17] MEDS: PANTOPRAZOLE 40 MG (PROTONIX) TAB PO SCH ×2 (05:20→17:45)
[2021-01-17] MEDS: METOCLOPRAMIDE 10 MG (REGLAN) TAB PO SCH ×3 (05:20→17:45)
[2021-01-17] MEDS: KCL 20 MEQ TAB (K-DUR) PO SCH (05:20)
[2021-01-17 05:55] LABS: BASOPHILS % (AUTO) 0 % (0-10); EOSINOPHILS # (AUTO) 0.2 10^3/uL (0.0-0.3); EOSINOPHILS % (AUTO) 3 % (0-10); HEMATOCRIT 34 % (35-52); HEMOGLOBIN 10.3 g/dL (11.5-16.0); LYMPHOCYTES # (AUTO) 1.3 10^3/uL (1.0-4.0); LYMPHOCYTES % (AUTO) 25 % (12-44); MEAN CORPUSCULAR HEMOGLOBIN 26 pg (25-34); MEAN CORPUSCULAR HGB CONC 30 g/dL (32-36); MEAN CORPUSCULAR VOLUME 85 fL (80-99); MONOCYTES # (AUTO) 0.2 10^3/uL (0.0-1.0); MONOCYTES % (AUTO) 5 % (0-12); NEUTROPHILS # (AUTO) 3.1 10^3/uL (1.8-7.8); NEUTROPHILS % (AUTO) 59 % (42-75); PLATELET COUNT 264 10^3/uL (130-400); WHITE BLOOD COUNT 5.3 10^3/uL (4.3-11.0)
[2021-01-17 06:03] LABS: ALBUMIN 3.1 GM/DL (3.2-4.5); POTASSIUM 3.6 MMOL/L (3.6-5.0)
[2021-01-17 06:04] LABS: CALCIUM 8.5 MG/DL (8.5-10.1)
[2021-01-17 06:05] LABS: TOTAL PROTEIN 6.4 GM/DL (6.4-8.2)
[2021-01-17 06:07] LABS: BILIRUBIN,TOTAL 0.5 MG/DL (0.1-1.0)
[2021-01-17 06:09] LABS: CREATININE SERUM 0.86 MG/DL (0.60-1.30)
--- NOTE | 2021-01-17 07:55 | Diagnostic Imaging Report ---
INDICATION: Pneumonia. Comparison made with prior examination 01/16/2021. FINDINGS: There is cardiomegaly. There are bilateral pulmonary infiltrates more consolidated in the right upper lobe. There is no pleural effusion or pneumothorax. Mediastinum is unremarkable. Some underlying venous congestion cannot be excluded. IMPRESSION: Bilateral pulmonary infiltrates more consolidated in right upper lobe suspect for pneumonia possibly Covid. Some underlying central pulmonary venous congestion cannot be excluded. Dictated by: Dictated on workstation # [id number]
[2021-01-17 08:04] VITALS: BP 125/82
[2021-01-17] MEDS: FAMOTIDINE 20MG/2ML IV (PEPCID) IVP SCH ×2 (08:53→20:16)
[2021-01-17] MEDS: guaiFENesin (MUCINEX) 600 MG TAB PO SCH ×2 (08:53→20:16)
[2021-01-17 11:02] VITALS: BP 107/59
[2021-01-17] MEDS: ENOXAPARIN 300 MG/3 ML (LOVENOX) MULTI-DOSE VIAL SQ SCH ×2 (12:18→20:16)
--- NOTE | 2021-01-17 12:41 | Progress Note - Hospitalist ---
Subjective HPI/CC On Admission Date Seen by Provider: Jan 17, 2021 Time Seen by Provider: 11:00 Subjective/Events-last exam Pt doing okay Maintain on Vapotherm at 30 liters at 100% Slow progress Doing okay otherwise Eating and drinking Review of Systems General: Fatigue Pulmonary: Dyspnea Objective Exam Vital Signs Vital Signs Date Time Temp Pulse Resp B/P (MAP) Pulse Ox O2 Delivery O2 Flow Rate FiO2 01/18/21 03:52 36.4 110 22 115/54 (74) 91 Vapotherm 35.00 100.00 01/18/21 03:42 80 Capillary Refill : Less Than 3 Seconds General Appearance: No Apparent Distress, WD/WN, Chronically ill, Obese Respiratory: No Accessory Muscle Use, No Respiratory Distress, Decreased Breath Sounds Cardiovascular: Regular Rate, Rhythm Neurologic/Psychiatric: Alert, Oriented x3 Results/Procedures Lab Laboratory Tests 01/17/21 05:40 Patient resulted labs reviewed. Assessment/Plan Assessment and Plan Assess & Plan/Chief Complaint Assessment: COVID-19 status post Actemra Nausea and vomiting acute on chronic Obesity Elevated D-dimer nuclear scan results pending DVT prophylaxis with Lovenox Dehydration Diabetes mellitus Acute kidney injury now resolved Plan: Lovenox Supportive care 01/12/2021: IV antibiotics Pancultured Monitor chest x-ray High risk for decompensation 01/13/2021: Rapidly progressing Actemra infusion 01/14/2021: Supportive care Weinberg catheter Vapotherm High risk for progression 01/15/2021: Vapotherm Supportive care Check chest x-ray in the morning 01/16/2021: Patient much improved Wean oxygen if possible 01/17/2021: Supportive care Monitor labs Critical Care Critically Ill Patient KAMILLE PHILLIP DO Jan 17, 2021 12:41
--- NOTE | 2021-01-17 14:03 | Physician Query Clarification ---
Physician Query-General Query to Physician: The medical record reflects the following clinical evidence: Clinical Indicators: On day of admission 02 sat 90% on RA started on has been titrated up to 100% on 01/17, RR 200-26, Labored breathing, SOA at rest Risk Factor(s): Covid 19, Obesity Treatment: High flow 02, Breathing treatments, Close observation of Respiratory status Question: Do you agree with the impression of Acute Hypoxemic Respiratory Failure per Giselle Dickey? 1. Yes; will document Acute hypoxic respiratory failure, impending on admission in the Progress Notes 2. No; will continue current documentation in the Progress Notes 3. Other; will document explanation of clinical findings 4. Clinically undetermined; no explanation for clinical findings Please clarify and document your clinical opinion in the Progress Notes and Dis charge Summary including the definitive and/or presumptive diagnosis, (suspected or probable), related to the above clinical findings. Please include clinical findings supporting your diagnosis. In responding to this query, please exercise your independent professional judgment. The purpose of this communication is to more accurately reflect the complexity of your patients condition. The fact that a question is asked does not imply that any particular answer is desired or expected. Please remember a lack of response to the above will prompt a phone page by CDI/coding staff Thank you for timely response to this clarification. Renee Smith MSN, RN Clinical Syrup Filterer [phone] [email or web address] PHYSICIAN RESPONSE: Based on the clinical findings in the record, please respond to the query above on this document as an addendum. Physician Response: Physician Response 1 If you have questions please contact: Taxi Driver: Ext: Thank you for your time and cooperation. Clinical Syrup Filterer/Taxi Driver This is a permanent part of the medical record RENEE SMITH Jan 17, 2021 14:03 KAMILLE PHILLIP DO Jan 17, 2021 21:20
--- NOTE | 2021-01-17 14:31 | Physician Query Clarification ---
Physician Query-General Query to Physician: The medical record reflects the following clinical scenario: The patient, in the setting of History Covid 19 infection, Obesity, DM Clinical Indicators Chest xray from 01/10 " Multifocal patchy alveolar nodular infiltrates consistent with Covid pneumonia", SOA at rest, cough, requiring 100% FI02 Treatment Dexamethasone IV, Supplemental O2, IV Cefepime, IV Azithromycin, Remdesivir, Question: Do you agree with the impression of Pneumonia in the setting of Covid [address] Giselle Garcia? 1. Yes; will document Pneumonia in the setting of Covid 19 present on admission in the Progress Notes 2. No; will continue current documentation in the Progress Notes 3. Other; will document explanation of clinical findings 4. Clinically undetermined; no explanation for clinical findings Please clarify and document your clinical opinion in the Progress Notes and Discharge Summary including the definitive and/or presumptive diagnosis, (fallon pected or probable), related to the above clinical findings. Please include clinical findings supporting your diagnosis. In responding to this query, please exercise your independent professional judgment. The purpose of this communication is to more accurately reflect the complexity of your patients condition. The fact that a question is asked does not imply that any particular answer is desired or expected. Please remember a lack of response to the above will prompt a phone page by CDI/coding staff Thank you for timely response to this clarification. Renee Smith MSN, RN Clinical Medical Administrative Specialist [phone] [email or web address] PHYSICIAN RESPONSE: Based on the clinical findings in the record, please respond to the query above on this document as an addendum. Physician Response: Physician Response 1 If you have questions please contact: Wall And Floor Tiler: Ext: Thank you for your time and cooperation. Clinical Medical Administrative Specialist/Wall And Floor Tiler This is a permanent part of the medical record RENEE SMITH Jan 17, 2021 14:31 KAMILLE PHILLIP DO Jan 17, 2021 21:21
[2021-01-17 15:38] VITALS: BP 134/85
[2021-01-17 19:19] VITALS: BP 114/66
[2021-01-17] MEDS: QUEtiapine 200 MG (SEROquel) TAB IMMEDIATE RELEASE PO SCH (20:16)
[2021-01-17] MEDS: MIRTAZAPINE 15 MG (REMERON) TAB PO SCH (20:16)
[2021-01-17 23:26] VITALS: BP 113/81
[2021-01-18] VITALS (7 sets, daily range): BP systolic 101–133; BP diastolic 54–73
[2021-01-18] MEDS: RT-ALBUTEROL HFA 8.5 GM INHALER IH SCH ×4 (03:39→19:56)
[2021-01-18] MEDS: inSUlin ASPART (NovoLOG) 1 UNIT/0.01 ML (CHARGE PER UNIT) SC SCH ×4 (07:00→20:19)
[2021-01-18 07:46] LABS: BASOPHILS % (AUTO) 1 % (0-10); EOSINOPHILS # (AUTO) 0.3 10^3/uL (0.0-0.3); EOSINOPHILS % (AUTO) 6 % (0-10); HEMATOCRIT 36 % (35-52); HEMOGLOBIN 10.5 g/dL (11.5-16.0); LYMPHOCYTES # (AUTO) 1.1 10^3/uL (1.0-4.0); LYMPHOCYTES % (AUTO) 20 % (12-44); MEAN CORPUSCULAR HEMOGLOBIN 25 pg (25-34); MEAN CORPUSCULAR HGB CONC 29 g/dL (32-36); MEAN CORPUSCULAR VOLUME 86 fL (80-99); MEAN PLATELET VOLUME 10.7 fL (9.0-12.2); MONOCYTES # (AUTO) 0.4 10^3/uL (0.0-1.0); MONOCYTES % (AUTO) 7 % (0-12); NEUTROPHILS # (AUTO) 3.3 10^3/uL (1.8-7.8); NEUTROPHILS % (AUTO) 59 % (42-75); PLATELET COUNT 286 10^3/uL (130-400); WHITE BLOOD COUNT 5.5 10^3/uL (4.3-11.0)
[2021-01-18 08:05] LABS: ALBUMIN 3.2 GM/DL (3.2-4.5); POTASSIUM 3.4 MMOL/L (3.6-5.0)
[2021-01-18 08:06] LABS: CALCIUM 8.6 MG/DL (8.5-10.1)
[2021-01-18 08:08] LABS: TOTAL PROTEIN 6.2 GM/DL (6.4-8.2)
[2021-01-18 08:10] LABS: BILIRUBIN,TOTAL 0.6 MG/DL (0.1-1.0)
[2021-01-18 08:11] LABS: CREATININE SERUM 0.82 MG/DL (0.60-1.30)
[2021-01-18] MEDS: FAMOTIDINE 20MG/2ML IV (PEPCID) IVP SCH (10:07)
[2021-01-18] MEDS: ENOXAPARIN 300 MG/3 ML (LOVENOX) MULTI-DOSE VIAL SQ SCH ×2 (10:07→19:53)
[2021-01-18] MEDS: guaiFENesin (MUCINEX) 600 MG TAB PO SCH ×2 (10:07→19:52)
[2021-01-18] MEDS: METOCLOPRAMIDE 10 MG (REGLAN) TAB PO SCH ×3 (10:07→16:53)
[2021-01-18] MEDS: KCL 20 MEQ TAB (K-DUR) PO SCH (10:07)
[2021-01-18] MEDS: PANTOPRAZOLE 40 MG (PROTONIX) TAB PO SCH ×2 (10:07→16:53)
--- NOTE | 2021-01-18 12:16 | Progress Note - Hospitalist ---
Subjective HPI/CC On Admission Date Seen by Provider: Jan 18, 2021 Time Seen by Provider: 11:00 Subjective/Events-last exam Pt wants to go home Still on Vapotherm 30 liters at 80% No major issues otherwise Checked meds and labs Need to decrease oxygen to be able to DC Review of Systems General: Fatigue Pulmonary: Dyspnea Objective Exam Vital Signs Vital Signs Date Time Temp Pulse Resp B/P (MAP) Pulse Ox O2 Delivery O2 Flow Rate FiO2 01/19/21 03:55 36.6 107 20 100/65 (77) 95 Vapotherm 30.00 60.00 01/19/21 02:54 60 Capillary Refill : Less Than 3 Seconds General Appearance: No Apparent Distress, WD/WN, Anxious, Chronically ill, Obese Respiratory: No Accessory Muscle Use, Decreased Breath Sounds Cardiovascular: Regular Rate, Rhythm Neurologic/Psychiatric: Alert, Oriented x3 Results/Procedures Lab Laboratory Tests 01/18/21 07:35 01/19/21 05:00 Patient resulted labs reviewed. Assessment/Plan Assessment and Plan Assess & Plan/Chief Complaint Assessment: COVID-19 status post Actemra Nausea and vomiting acute on chronic Obesity Elevated D-dimer nuclear scan results pending DVT prophylaxis with Lovenox Dehydration Diabetes mellitus Acute kidney injury now resolved Plan: Lovenox Supportive care 01/12/2021: IV antibiotics Pancultured Monitor chest x-ray High risk for decompensation 01/13/2021: Rapidly progressing Actemra infusion 01/14/2021: Supportive care Weinberg catheter Vapotherm High risk for progression 01/15/2021: Vapotherm Supportive care Check chest x-ray in the morning 01/16/2021: Patient much improved Wean oxygen if possible 01/17/2021: Supportive care Monitor labs 01/18/2021: Supportive care Monitor oxygen Critical Care Critically Ill Patient KAMILLE PHILLIP DO Jan 18, 2021 12:16
[2021-01-18] MEDS: FAMOTIDINE 20 MG (PEPCID) TABLET PO SCH (19:52)
[2021-01-18] MEDS: MIRTAZAPINE 15 MG (REMERON) TAB PO SCH (19:53)
[2021-01-18] MEDS: QUEtiapine 200 MG (SEROquel) TAB IMMEDIATE RELEASE PO SCH (19:53)
[2021-01-19] MEDS: RT-ALBUTEROL HFA 8.5 GM INHALER IH SCH ×4 (02:48→21:01)
[2021-01-19 03:55] VITALS: BP 100/65
[2021-01-19 05:08] LABS: BASOPHILS % (AUTO) 0 % (0-10); EOSINOPHILS # (AUTO) 0.3 10^3/uL (0.0-0.3); EOSINOPHILS % (AUTO) 4 % (0-10); HEMATOCRIT 35 % (35-52); HEMOGLOBIN 10.4 g/dL (11.5-16.0); LYMPHOCYTES # (AUTO) 1.6 10^3/uL (1.0-4.0); LYMPHOCYTES % (AUTO) 24 % (12-44); MEAN CORPUSCULAR HEMOGLOBIN 25 pg (25-34); MEAN CORPUSCULAR HGB CONC 30 g/dL (32-36); MEAN CORPUSCULAR VOLUME 84 fL (80-99); MEAN PLATELET VOLUME 10.8 fL (9.0-12.2); MONOCYTES # (AUTO) 0.6 10^3/uL (0.0-1.0); MONOCYTES % (AUTO) 9 % (0-12); NEUTROPHILS # (AUTO) 3.9 10^3/uL (1.8-7.8); NEUTROPHILS % (AUTO) 57 % (42-75); PLATELET COUNT 293 10^3/uL (130-400); WHITE BLOOD COUNT 6.7 10^3/uL (4.3-11.0)
[2021-01-19 05:13] LABS: SMEAR SCAN COMMENT YES
[2021-01-19 05:31] LABS: ALBUMIN 3.3 GM/DL (3.2-4.5); BILIRUBIN,TOTAL 0.6 MG/DL (0.1-1.0); CALCIUM 8.8 MG/DL (8.5-10.1); CREATININE SERUM 0.8 MG/DL (0.60-1.30); POTASSIUM 3.5 MMOL/L (3.6-5.0); TOTAL PROTEIN 6.4 GM/DL (6.4-8.2)
[2021-01-19] MEDS: inSUlin ASPART (NovoLOG) 1 UNIT/0.01 ML (CHARGE PER UNIT) SC SCH ×4 (06:01→20:45)
[2021-01-19] MEDS: KCL 20 MEQ TAB (K-DUR) PO SCH (06:26)
[2021-01-19] MEDS: METOCLOPRAMIDE 10 MG (REGLAN) TAB PO SCH ×3 (06:26→16:27)
[2021-01-19] MEDS: PANTOPRAZOLE 40 MG (PROTONIX) TAB PO SCH ×2 (06:26→15:39)
[2021-01-19 08:00] VITALS: BP 113/76
--- NOTE | 2021-01-19 08:42 | Diagnostic Imaging Report ---
EXAMINATION: Chest 1 view HISTORY: Pneumonia follow-up COMPARISON: 01/17/2021 FINDINGS: Heart size and pulmonary vasculature are stable. Stable patchy interstitial and airspace opacities throughout both lungs greatest within the right upper lung. No pleural effusion or pneumothorax. The osseous structures are intact. IMPRESSION: 1. Stable patchy interstitial and airspace opacities throughout both lungs. Dictated by: Dictated on workstation # [id number]
[2021-01-19] MEDS: guaiFENesin (MUCINEX) 600 MG TAB PO SCH ×2 (10:15→20:13)
[2021-01-19] MEDS: FAMOTIDINE 20 MG (PEPCID) TABLET PO SCH ×2 (10:15→20:13)
[2021-01-19] MEDS: ENOXAPARIN 300 MG/3 ML (LOVENOX) MULTI-DOSE VIAL SQ SCH ×2 (10:15→20:13)
[2021-01-19 12:00] VITALS: BP 103/71
--- NOTE | 2021-01-19 12:30 | Progress Note - Hospitalist ---
Subjective HPI/CC On Admission Date Seen by Provider: Jan 19, 2021 Time Seen by Provider: 12:30 Subjective/Events-last exam Patient doing much better Titrating down Vapotherm on 30 L 60% Took a shower without difficulty Bowels moving Eating and drinking Slow recovery Actemra has prevented the progression to ventilator Review of Systems General: Fatigue, Malaise Pulmonary: Dyspnea Objective Exam Vital Signs Vital Signs Date Time Temp Pulse Resp B/P (MAP) Pulse Ox O2 Delivery O2 Flow Rate FiO2 01/19/21 12:00 37.0 97 20 103/71 (82) 96 Vapotherm 30.00 60.00 01/19/21 08:00 60 Capillary Refill : Less Than 3 Seconds General Appearance: No Apparent Distress, WD/WN, Chronically ill Respiratory: No Accessory Muscle Use, No Respiratory Distress, Decreased Breath Sounds Cardiovascular: Regular Rate, Rhythm Neurologic/Psychiatric: Alert, Oriented x3, No Motor/Sensory Deficits, Normal M ood/Affect Results/Procedures Lab Laboratory Tests 01/19/21 05:00 Patient resulted labs reviewed. Assessment/Plan Assessment and Plan Assess & Plan/Chief Complaint Assessment: COVID-19 status post Actemra Nausea and vomiting acute on chronic Obesity Elevated D-dimer nuclear scan results pending DVT prophylaxis with Lovenox Dehydration Diabetes mellitus Acute kidney injury now resolved Plan: Lovenox Supportive care 01/12/2021: IV antibiotics Pancultured Monitor chest x-ray High risk for decompensation 01/13/2021: Rapidly progressing Actemra infusion 01/14/2021: Supportive care Weinberg catheter Vapotherm High risk for progression 01/15/2021: Vapotherm Supportive care Check chest x-ray in the morning 01/16/2021: Patient much improved Wean oxygen if possible 01/17/2021: Supportive care Monitor labs 01/18/2021: Supportive care Monitor oxygen 01/19/2021: Supportive care Wean Vapotherm Home when able Critical Care Critically Ill Patient KAMILLE PHILLIP DO Jan 19, 2021 12:30
[2021-01-19 16:00] VITALS: BP 95/69
[2021-01-19 19:46] VITALS: BP 102/61
[2021-01-19] MEDS: QUEtiapine 200 MG (SEROquel) TAB IMMEDIATE RELEASE PO SCH (20:13)
[2021-01-19] MEDS: MIRTAZAPINE 15 MG (REMERON) TAB PO SCH (20:13)
[2021-01-19 23:51] VITALS: BP 113/72
[2021-01-20] MEDS: RT-ALBUTEROL HFA 8.5 GM INHALER IH SCH ×4 (03:26→21:17)
[2021-01-20 04:26] VITALS: BP 106/67
[2021-01-20 04:53] LABS: BASOPHILS % (AUTO) 0 % (0-10); EOSINOPHILS # (AUTO) 0.2 10^3/uL (0.0-0.3); EOSINOPHILS % (AUTO) 2 % (0-10); HEMATOCRIT 35 % (35-52); HEMOGLOBIN 10.5 g/dL (11.5-16.0); LYMPHOCYTES # (AUTO) 2.2 10^3/uL (1.0-4.0); LYMPHOCYTES % (AUTO) 31 % (12-44); MEAN CORPUSCULAR HEMOGLOBIN 26 pg (25-34); MEAN CORPUSCULAR HGB CONC 30 g/dL (32-36); MEAN CORPUSCULAR VOLUME 84 fL (80-99); MEAN PLATELET VOLUME 10.7 fL (9.0-12.2); MONOCYTES # (AUTO) 0.6 10^3/uL (0.0-1.0); MONOCYTES % (AUTO) 9 % (0-12); NEUTROPHILS # (AUTO) 3.7 10^3/uL (1.8-7.8); NEUTROPHILS % (AUTO) 52 % (42-75); PLATELET COUNT 261 10^3/uL (130-400); WHITE BLOOD COUNT 7.1 10^3/uL (4.3-11.0)
[2021-01-20 05:10] LABS: ALBUMIN 3.3 GM/DL (3.2-4.5); POTASSIUM 3.7 MMOL/L (3.6-5.0)
[2021-01-20 05:11] LABS: CALCIUM 8.9 MG/DL (8.5-10.1)
[2021-01-20 05:13] LABS: TOTAL PROTEIN 6.2 GM/DL (6.4-8.2)
[2021-01-20 05:14] LABS: BILIRUBIN,TOTAL 0.6 MG/DL (0.1-1.0)
[2021-01-20 05:16] LABS: CREATININE SERUM 0.77 MG/DL (0.60-1.30)
[2021-01-20] MEDS: inSUlin ASPART (NovoLOG) 1 UNIT/0.01 ML (CHARGE PER UNIT) SC SCH ×4 (05:48→20:56)
[2021-01-20] MEDS: PANTOPRAZOLE 40 MG (PROTONIX) TAB PO SCH ×2 (06:18→16:11)
[2021-01-20] MEDS: KCL 20 MEQ TAB (K-DUR) PO SCH (06:18)
[2021-01-20] MEDS: METOCLOPRAMIDE 10 MG (REGLAN) TAB PO SCH ×3 (06:18→16:11)
--- NOTE | 2021-01-20 06:34 | Progress Note - Hospitalist ---
Subjective HPI/CC On Admission Date Seen by Provider: Jan 20, 2021 Time Seen by Provider: 12:00 Subjective/Events-last exam Patient doing a lot better On 8 L high flow Discharge soon Review of Systems General: Fatigue Objective Exam Vital Signs Vital Signs Date Time Temp Pulse Resp B/P (MAP) Pulse Ox O2 Delivery O2 Flow Rate FiO2 01/20/21 16:23 93 High Flow N/C 6.00 01/20/21 16:06 36.2 94 18 106/74 (85) 01/20/21 03:27 50 Capillary Refill : Less Than 3 Seconds General Appearance: No Apparent Distress, WD/WN, Chronically ill Respiratory: No Accessory Muscle Use, No Respiratory Distress, Decreased Breath Sounds Cardiovascular: Regular Rate, Rhythm Results/Procedures Lab Laboratory Tests 01/20/21 04:40 Patient resulted labs reviewed. Assessment/Plan Assessment and Plan Assess & Plan/Chief Complaint Assessment: COVID-19 status post Actemra Nausea and vomiting acute on chronic Obesity Elevated D-dimer nuclear scan results pending DVT prophylaxis with Lovenox Dehydration Diabetes mellitus Acute kidney injury now resolved Plan: Lovenox Supportive care 01/12/2021: IV antibiotics Pancultured Monitor chest x-ray High risk for decompensation 01/13/2021: Rapidly progressing Actemra infusion 01/14/2021: Supportive care Weinberg catheter Vapotherm High risk for progression 01/15/2021: Vapotherm Supportive care Check chest x-ray in the morning 01/16/2021: Patient much improved Wean oxygen if possible 01/17/2021: Supportive care Monitor labs 01/18/2021: Supportive care Monitor oxygen 01/19/2021: Supportive care Wean Vapotherm Home when able 01/20/2021: Discharge soon Critical Care Critically Ill Patient KAMILLE PHILLIP DO Jan 20, 2021 06:34
[2021-01-20 07:29] VITALS: BP 103/63
[2021-01-20] MEDS: guaiFENesin (MUCINEX) 600 MG TAB PO SCH ×2 (09:07→20:56)
[2021-01-20] MEDS: ENOXAPARIN 300 MG/3 ML (LOVENOX) MULTI-DOSE VIAL SQ SCH ×2 (09:08→19:47)
[2021-01-20] MEDS: FAMOTIDINE 20 MG (PEPCID) TABLET PO SCH ×2 (09:08→20:56)
[2021-01-20 11:15] VITALS: BP 117/64
[2021-01-20 16:06] VITALS: BP 106/74
[2021-01-20 20:00] VITALS: BP 111/63
[2021-01-20] MEDS: MIRTAZAPINE 15 MG (REMERON) TAB PO SCH (20:56)
[2021-01-20] MEDS: QUEtiapine 200 MG (SEROquel) TAB IMMEDIATE RELEASE PO SCH (20:56)
[2021-01-20] MEDS ORDERED: ENOXAPARIN 40 MG/0.4 ML (LOVENOX) SYR SC ONE (21:30)
[2021-01-20] MEDS ORDERED: ENOXAPARIN 100 MG/1 ML (LOVENOX) SYR SC ONE (21:30)
[2021-01-20 23:47] VITALS: BP 106/73
[2021-01-21] MEDS: RT-ALBUTEROL HFA 8.5 GM INHALER IH SCH ×4 (03:17→20:18)
[2021-01-21 05:29] LABS: BASOPHILS % (AUTO) 0 % (0-10); EOSINOPHILS # (AUTO) 0.1 10^3/uL (0.0-0.3); EOSINOPHILS % (AUTO) 1 % (0-10); HEMATOCRIT 34 % (35-52); HEMOGLOBIN 10.2 g/dL (11.5-16.0); LYMPHOCYTES # (AUTO) 3.2 10^3/uL (1.0-4.0); LYMPHOCYTES % (AUTO) 36 % (12-44); MEAN CORPUSCULAR HEMOGLOBIN 25 pg (25-34); MEAN CORPUSCULAR HGB CONC 30 g/dL (32-36); MEAN CORPUSCULAR VOLUME 85 fL (80-99); MEAN PLATELET VOLUME 10.8 fL (9.0-12.2); MONOCYTES # (AUTO) 0.7 10^3/uL (0.0-1.0); MONOCYTES % (AUTO) 9 % (0-12); NEUTROPHILS # (AUTO) 4.4 10^3/uL (1.8-7.8); NEUTROPHILS % (AUTO) 50 % (42-75); PLATELET COUNT 261 10^3/uL (130-400); WHITE BLOOD COUNT 8.7 10^3/uL (4.3-11.0)
[2021-01-21 05:54] LABS: ALBUMIN 3.2 GM/DL (3.2-4.5); POTASSIUM 3.8 MMOL/L (3.6-5.0)
[2021-01-21 05:55] LABS: CALCIUM 8.9 MG/DL (8.5-10.1)
[2021-01-21 05:57] LABS: TOTAL PROTEIN 6.2 GM/DL (6.4-8.2)
[2021-01-21 05:58] LABS: BILIRUBIN,TOTAL 0.4 MG/DL (0.1-1.0)
[2021-01-21 06:00] LABS: CREATININE SERUM 0.84 MG/DL (0.60-1.30)
[2021-01-21] MEDS: METOCLOPRAMIDE 10 MG (REGLAN) TAB PO SCH ×3 (06:22→15:52)
[2021-01-21] MEDS: inSUlin ASPART (NovoLOG) 1 UNIT/0.01 ML (CHARGE PER UNIT) SC SCH ×4 (06:22→20:25)
[2021-01-21] MEDS: PANTOPRAZOLE 40 MG (PROTONIX) TAB PO SCH ×2 (06:22→15:52)
[2021-01-21] MEDS: KCL 20 MEQ TAB (K-DUR) PO SCH (06:22)
[2021-01-21 08:04] VITALS: BP 95/66
[2021-01-21] MEDS: FAMOTIDINE 20 MG (PEPCID) TABLET PO SCH ×2 (09:12→20:22)
[2021-01-21] MEDS: guaiFENesin (MUCINEX) 600 MG TAB PO SCH ×2 (09:12→20:22)
[2021-01-21] MEDS: ENOXAPARIN 300 MG/3 ML (LOVENOX) MULTI-DOSE VIAL SQ SCH ×2 (09:25→20:31)
[2021-01-21 15:49] VITALS: BP 111/75
--- NOTE | 2021-01-21 20:09 | Progress Note ---
Subjective Subjective/Events-last exam Pt states she is feeling okay, denies concerns. Objective Exam Last Set of Vital Signs Vital Signs Date Time Temp Pulse Resp B/P (MAP) Pulse Ox O2 Delivery O2 Flow Rate FiO2 01/21/21 15:49 36.7 105 16 111/75 (87) 94 High Flow N/C 5.00 01/20/21 03:27 50 Capillary Refill : Less Than 3 Seconds I&O Intake and Output 01/21/21 00:00 Intake Total 2960 ml Output Total 700 ml Balance 2260 ml Intake Oral 2960 ml Output Urine Total 700 ml # Voids 6 # Bowel Movements 2 General: Alert, No Acute Distress Lungs: Other (ronchi) Heart: Regular Rate Psych/Mental Status: Mental Status NL, Mood NL Results/Procedures Lab Laboratory Tests 01/20/21 20:26: Glucometer 225H 01/21/21 05:10: White Blood Count 8.7, Red Blood Count 4.01, Hemoglobin 10.2L, Hematocrit 34L, Mean Corpuscular Volume 85, Mean Corpuscular Hemoglobin 25, Mean Corpuscular Hemoglobin Concent 30L, Red Cell Distribution Width 19.2H, Platelet Count 261, Mean Platelet Volume 10.8, Immature Granulocyte % (Auto) 4, Neutrophils (%) (Auto) 50, Lymphocytes (%) (Auto) 36, Monocytes (%) (Auto) 9, Eosinophils (%) (Auto) 1, Basophils (%) (Auto) 0, Neutrophils # (Auto) 4.4, Lymphocytes # (Auto) 3.2, Monocytes # (Auto) 0.7, Eosinophils # (Auto) 0.1, Basophils # (Auto) 0.0, Immature Granulocyte # (Auto) 0.3H, Sodium Level 139, Potassium Level 3.8, Chloride Level 103, Carbon Dioxide Level 25, Anion Gap 11, Blood Urea Nitrogen 20H, Creatinine 0.84, Estimat Glomerular Filtration Rate 71, BUN/Creatinine Ra ratna 24, Glucose Level 221H, Calcium Level 8.9, Corrected Calcium 9.5, Total Bilirubin 0.4, Aspartate Amino Transf (AST/SGOT) 18, Alanine Aminotransferase (ALT/SGPT) 38, Alkaline Phosphatase 32L, Total Protein 6.2L, Albumin 3.2 01/21/21 10:37: Glucometer 285H 01/21/21 15:50: Glucometer 195H Microbiology 01/12/21 Blood Culture - Final, Complete No growth 01/11/21 C. difficile GDH Antigen & Toxins - Final, Complete Assessment/Plan Assessment/Plan (1) COVID-19 Status: Acute Assessment & Plan: Treated with remdesevir before worsening, and tocilizumab. On dexamethasone, today is day 10, will d/c. Still requiring 6 lpm supplemental oxygen, but that is significant improvement. 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
[2021-01-21] MEDS: QUEtiapine 200 MG (SEROquel) TAB IMMEDIATE RELEASE PO SCH (20:22)
[2021-01-21] MEDS: MIRTAZAPINE 15 MG (REMERON) TAB PO SCH (20:23)
[2021-01-21 23:59] VITALS: BP 101/69
[2021-01-22] MEDS: KCL 20 MEQ TAB (K-DUR) PO SCH (05:23)
[2021-01-22] MEDS: METOCLOPRAMIDE 10 MG (REGLAN) TAB PO SCH ×3 (05:23→17:57)
[2021-01-22] MEDS: PANTOPRAZOLE 40 MG (PROTONIX) TAB PO SCH ×2 (05:23→16:19)
[2021-01-22] MEDS: RT-ALBUTEROL HFA 8.5 GM INHALER IH SCH ×4 (05:25→20:57)
[2021-01-22 05:26] LABS: HEMATOCRIT 34 % (35-52); HEMOGLOBIN 10.1 g/dL (11.5-16.0); MEAN CORPUSCULAR HEMOGLOBIN 26 pg (25-34); MEAN CORPUSCULAR HGB CONC 30 g/dL (32-36); MEAN CORPUSCULAR VOLUME 85 fL (80-99); MEAN PLATELET VOLUME 10.6 fL (9.0-12.2); PLATELET COUNT 222 10^3/uL (130-400); WHITE BLOOD COUNT 8.9 10^3/uL (4.3-11.0)
[2021-01-22] MEDS: inSUlin ASPART (NovoLOG) 1 UNIT/0.01 ML (CHARGE PER UNIT) SC SCH ×4 (06:06→20:29)
[2021-01-22 08:00] VITALS: BP 92/54
[2021-01-22] MEDS: guaiFENesin SYRUP 100 MG/5 ML 10 ML (ROBITUSSIN SF) PO PRN (09:16)
[2021-01-22] MEDS: ACETAMINOPHEN 500 MG TAB (TYLENOL) PO PRN (09:17)
[2021-01-22] MEDS: FAMOTIDINE 20 MG (PEPCID) TABLET PO SCH ×2 (09:17→19:49)
[2021-01-22] MEDS: guaiFENesin (MUCINEX) 600 MG TAB PO SCH ×2 (09:17→19:48)
[2021-01-22] MEDS: ENOXAPARIN 300 MG/3 ML (LOVENOX) MULTI-DOSE VIAL SQ SCH ×2 (09:58→19:50)
--- NOTE | 2021-01-22 14:41 | Occupational Therapy Eval ---
OT Evaluation-General/PLF Medical Diagnosis Admission Date Jan 12, 2021 at 10:00 Medical Diagnosis: COVID-19, N/V Onset Date: Jan 12, 2021 Therapy Diagnosis Therapy Diagnosis: weakness Height/Weight Height (Feet): 5 Height (Inches): 3.00 Weight (Pounds): 240 Weight (Ounces): 2.0 Precautions Precautions/Isolations: Airborne Isolation, Contact Isolation Referral Physician: Justin Referral Reason: Evaluation/Treatment Medical History Pertinent Medical History: CAD, DM, HTN Additional Medical History chronic abdominal pain, DM, HTN, anxiety/depression Current History ED due to worsening N/V, found COVID+. Social History Home: Apartment Current Living Status: Alone ADL-Prior Level of Function SCALE: Activities may be completed with or without assistive devices. 6-Ilwapcyadg-bbuusvv completes the activity by him/herself with no assistance from a helper. 5-Set-up or Clean-up Assistance-helper sets up or cleans up; patient completes activity. [place] assists only prior to or following the activity. 4-Supervision or Touching Assistance-helper provides verbal cues and/or touching/steadying and/or contact guard assistance as patient completes activity. Assistance may be provided throughout the activity or intermittently. 3-Partial/Moderate Assistance-helper does LESS THAN HALF the effort. [place] lifts, holds or supports trunk or limbs, but provides less than half the effort. 2-Substantial/Maximal Assistance-helper does MORE THAN HALF the effort. [place] lifts or holds trunk or limbs and provides more than half the effort. 9-Aqaylobmk-cubegx does ALL the effort. Patient does none of the effort to complete the activity. Or, the assistance of 2 or more helpers is required for the patient to complete the activity. If activity was not attempted, code reason: 7-Patient Refused. 9-Not Applicable-not attempted and the patient did not perform the activity before the current illness, exacerbation or injury. 10-Not Attempted due to Environmental Limitations-(lack of equipment, weather restraints, etc.). 88-Not Attempted due to Medical Conditions or Safety Concerns. ADL PLOF Comments Pt indicates IND with dressing and toileting at PLOF, she is able to complete showering herself but always has someone with her for safety. She uses a 4WW for functional mobility. Self Care: Needed Some Help Functional Cognition: Independent OT Current Status Subjective Pt laying in bed, agreeable to OT evaluation/tx. Pt states she would like to discharge from the hospital as soon as possible. She would love to leave today if possible. Mental Status/Objective Patient Orientation: Person, Place, Situation Attachments: Oxygen Current Upper Extremity ROM WFL, BUE shoulder flexion to approx 140 degrees Upper Extremity Coordination WFL Upper Extremity Sensation WFL Upper Extremity Strength grossly 4/5 ADL-Treatment Eating (QC): 6 (Per pt report, IND with lunch) Oral Hygiene (QC): 7 (pt declined) Toileting Hygiene (QC): 6 (Per pt and nursing report, IND with toileting.) Other Treatments Pt laying in bed, agreeable to OT evaluation. OT educated pt on purpose and benefit of OT, she verbalized understanding. Pt provided information about PLOF and home set up, and participated in UE screening. Pt declines need to toilet at this time, as she has been up to BSC independently all day. OT encouraged pt to participate in ADL session, pt declined. She states she has no concerns with her ability to complete ADLs upon returning home, as she feels better now compared with how she felt prior to coming to the hospital. She declined OOB activities at this time, as she has been up to the commode multiple times already. In order to increase BUE strength, pt completed x10 reps each of the following BUE exercises: shoulder flexion, elbow flexion/extension, and finger flexion/extension. Per PT report, pt independent with functional mobility in her room, 50' using 4WW. Post tx, pt laying in bed, call light in reach and all needs met. Education OT Patient Education: Correct positioning, Energy conservation, Exercise program, Modified ADL techniques, Progress toward Goal/Update tx plan, Purpose of tx/functional activities, Rehab process Teaching Recipient: Patient Teaching Methods: Discussion Response to Teaching: Verbalize Understanding OT Country Director Goals Country Director Goals 1=Demonstrate adherence to instructed precautions during ADL tasks. 2=Patient will verbalize/demonstrate understanding of assistive devices/modifications for ADL. 3=Patient will improve strength/tolerance for activity to enable patient to perform ADL's. OT Education/Plan Problem List/Assessment Assessment: No Skilled OT Needs ID'd No skilled OT services indicated at this time, as pt is independent with ADLs and at her PLOF. Discharge Recommendations Plan/Recommendations: Discharge/Goals Met Treatment Plan/Plan of Care Patient would benefit from OT for education, treatment and training to promote independence in ADL's, mobility, safety and/or upper extremity function for ADL's. Plan of Care: ADL Retraining, Functional Mobility, UE Funct Exercise/Act Treatment Duration: Jan 22, 2021 Frequency: 1 time per week (eval only) Time/GCodes Start Time: 10:30 Stop Time: 10:42 Total Time Billed (hr/min): 12 Billed Treatment Time 1, ROSA DE JESUS OT Jan 22, 2021 14:41
--- NOTE | 2021-01-22 14:43 | Physical Therapy Evaluation ---
PT Evaluation-General Medical Diagnosis Admission Date Jan 12, 2021 at 10:00 Medical Diagnosis: Covid/N&V/elevated D-Dimer Onset Date: Jan 12, 2021 Therapy Diagnosis Therapy Diagnosis: debility Height/Weight Height (Feet): 5 Height (Inches): 3.00 Weight (Pounds): 240 Weight (Ounces): 2.0 Precautions Precautions/Isolations: Airborne Isolation, Contact Isolation Referral Physician: Justin Reason for Referral: Evaluation/Treatment Medical History Pertinent Medical History: CAD, DM, HTN, Renal Insufficiency Current History ER secondary to SOA, cough and inability to care for self. Reviewed History: Yes Social History Home: Apartment Current Living Status: Alone Entry Into Home: Level Entry Prior Prior Level of Function SCALE: Activities may be completed with or without assistive devices. 0-Epqfnpkubj-ozwtnec completes the activity by him/herself with no assistance from a helper. 5-Set-up or Clean-up Assistance-helper sets up or cleans up; patient completes activity. [place] assists only prior to or following the activity. 4-Supervision or Touching Assistance-helper provides verbal cues and/or touching/steadying and/or contact guard assistance as patient completes activity. Assistance may be provided throughout the activity or intermittently. 3-Partial/Moderate Assistance-helper does LESS THAN HALF the effort. [place] lifts, holds or supports trunk or limbs, but provides less than half the effort. 2-Substantial/Maximal Assistance-helper does MORE THAN HALF the effort. [place] lifts or holds trunk or limbs and provides more than half the effort. 0-Xamqdmlhz-fozdii does ALL the effort. Patient does none of the effort to complete the activity. Or, the assistance of 2 or more helpers is required for the patient to complete the activity. If activity was not attempted, code reason: 7-Patient Refused. 9-Not Applicable-not attempted and the patient did not perform the activity before the current illness, exacerbation or injury. 10-Not Attempted due to Environmental Limitations-(lack of equipment, weather restraints, etc.). 88-Not Attempted due to Medical Conditions or Safety Concerns. Bed Mobility: 6 Transfers (B,C,W/C): 6 Gait: 6 Stairs: 9 Indoor Mobility (Ambulation): Independent Stairs: Not Applicalbe Prior Devices Use: Walker (4WW) PT Evaluation-Current Subjective Patient agrees to PT. Patient reports she just wants to go home. Objective Patient Orientation: Normal For Age Attachments: Oxygen (5L HF NC) ROM/Strength ROM Lower Extremities bilateral LE WFL Strength Lower Extremities 4/5 grossly bilateral LE Integumentary/Posture Bowel Incontinence: No Bladder Incontinence: No Posture WFL Neuromuscular (Tone, Coordination, Reflexes) grossly intact Sensory Vision: Functional Hearing: Functional Transfers Roll Left to Right (QC): 6 Sit to Lying (QC): 6 Lying to Sitting/Side of Bed(Q: 6 Sit to Stand (QC): 6 Chair/Auu-td-Rvvvz Xfer(QC): 6 Toilet Transfer (QC): 6 Gait Does the Patient Walk?: Yes Mode of Locomotion: Walk Anticipated Mode of Locomotion: Walk Walk 10 feet (QC): 6 Walk 50 ft with 2 Turns(QC): 6 Walk 150 ft (QC): 7 Distance: 50' in room Gait Assistive Device: Walker 4 Wheeled Comments/Gait Description safe and functional with no deviation Balance Sitting Static: Normal Sitting Dynamic: Normal Standing Static: Normal Standing Dynamic: Normal Treatment SAO2 94% 5L prior to ambulation. 89% on 5L after ambulating 50' with quick recovery to 92%. RT notified. Assessment/Needs Patient is currently at independent PLOF with all gross motor skills and does not require skilled therapy intervention at this time. Rehab Potential: Fair PT Plan Treatment/Plan Treatment Plan: Discontinue PT Treatment Duration: Jan 22, 2021 Frequency: 1 time per week Estimated Hrs Per Day: .25 hour per day Patient and/or Family Agrees t: Yes Discharge Recommendations Therapy Discharge Recommendati: Home & Family Time/GCodes Time In: 1358 Time Out: 1416 Total Billed Treatment Time: 18 Total Billed Treatment 1 visit EVMod 18 min KISHA SANCHEZ PT Jan 22, 2021 14:43
[2021-01-22 16:49] VITALS: BP 106/72
--- NOTE | 2021-01-22 17:10 | Progress Note ---
Subjective Subjective/Events-last exam Pt states she is feeling fairly well and is very adamant she is going home today. Objective Exam Last Set of Vital Signs Vital Signs Date Time Temp Pulse Resp B/P (MAP) Pulse Ox O2 Delivery O2 Flow Rate FiO2 01/22/21 16:49 36.1 95 106/72 (83) 96 High Flow N/C 5.00 01/22/21 08:00 18 01/20/21 03:27 50 Capillary Refill : Less Than 3 Seconds I&O Intake and Output 01/22/21 00:00 Intake Total 2440 ml Output Total 300 ml Balance 2140 ml Intake Oral 2430 ml IV Total 10 ml Output Urine Total 300 ml # Voids 2 # Bowel Movements 2 General: Alert, No Acute Distress Lungs: Other (ronchi) Heart: Regular Rate Neuro: Normal Speech Psych/Mental Status: Mental Status NL Results/Procedures Lab Laboratory Tests 01/21/21 20:25: Glucometer 172H 01/22/21 05:20: White Blood Count 8.9, Red Blood Count 3.95, Hemoglobin 10.1L, Hematocrit 34L, Mean Corpuscular Volume 85, Mean Corpuscular Hemoglobin 26, Mean Corpuscular Hemoglobin Concent 30L, Red Cell Distribution Width 19.3H, Platelet Count 222, Mean Platelet Volume 10.6 01/22/21 05:46: Glucometer 157H 01/22/21 11:18: Glucometer 182H 01/22/21 16:53: Glucometer 135H Microbiology 01/12/21 Blood Culture - Final, Complete No growth 01/11/21 C. difficile GDH Antigen & Toxins - Final, Complete Assessment/Plan Assessment/Plan (1) COVID-19 Status: Acute Assessment & Plan: Treated with remdesevir before worsening, and tocilizumab. On dexamethasone, today is day 10, will d/c. Still requiring 6 lpm supplemental oxygen, but that is significant improvement. 01/22- still required 6 lpm when attempting home O2 qualification, will continue to wean as able. 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
[2021-01-22] MEDS: QUEtiapine 200 MG (SEROquel) TAB IMMEDIATE RELEASE PO SCH (19:49)
[2021-01-22] MEDS: MIRTAZAPINE 15 MG (REMERON) TAB PO SCH (19:49)
[2021-01-23] VITALS: BP 102/68
[2021-01-23] MEDS: RT-ALBUTEROL HFA 8.5 GM INHALER IH SCH ×3 (02:38→15:22)
[2021-01-23] MEDS: inSUlin ASPART (NovoLOG) 1 UNIT/0.01 ML (CHARGE PER UNIT) SC SCH ×3 (04:57→15:56)
[2021-01-23] MEDS: KCL 20 MEQ TAB (K-DUR) PO SCH (05:35)
[2021-01-23] MEDS: PANTOPRAZOLE 40 MG (PROTONIX) TAB PO SCH ×2 (05:35→17:45)
[2021-01-23] MEDS: METOCLOPRAMIDE 10 MG (REGLAN) TAB PO SCH ×3 (05:35→17:45)
[2021-01-23 08:00] VITALS: BP 100/69
[2021-01-23] MEDS: guaiFENesin (MUCINEX) 600 MG TAB PO SCH (08:54)
[2021-01-23] MEDS: ENOXAPARIN 300 MG/3 ML (LOVENOX) MULTI-DOSE VIAL SQ SCH (08:54)
[2021-01-23] MEDS: FAMOTIDINE 20 MG (PEPCID) TABLET PO SCH (08:54)
[2021-01-23] MEDS ORDERED: HOLD METFORMIN - RECEIVED CONTRAST 20 ML VIAL IV SCH (09:15)
[2021-01-23] MEDS ORDERED: IOHEXOL 350 MG/ML 100 ML (OMNIPAQUE 350) VIAL IV ONE (09:15)
[2021-01-23] MEDS ORDERED: CATHETER FLUSH 10 ML SYR IV PRN (09:15)
[2021-01-23] MEDS ORDERED: NS 100 ML (IVPB) BAG IV ONE (09:15)
--- NOTE | 2021-01-23 12:50 | Diagnostic Imaging Report ---
PROCEDURE: CT angiography of the chest with contrast. TECHNIQUE: Multiple contiguous axial images were obtained through the chest after uneventful bolus administration of intravenous contrast. 3D reconstructed CTA MIP acquisitions were also performed. Auto Exposure Controls were utilized during the CT exam to meet ALARA standards for radiation dose reduction. INDICATION: Hypoxia and COVID-19 positive. COMPARISON: No prior studies are available for comparison. FINDINGS: Pulmonary arterial opacification is less than optimal but there is no evidence of central pulmonary emboli. No definite lobar or segmental emboli are present. The thoracic aorta is normal in caliber. There is no dissection. No pericardial or pleural fluid is identified. There are extensive infiltrates involving bilateral upper and lower lobes, most consolidated in the right upper lobe as well as the right lower lobe. No masses are seen. Upper abdomen is unremarkable. IMPRESSION: 1. No evidence of pulmonary embolism or thoracic aortic dissection. 2. Extensive bilateral pulmonary infiltrates, consistent with pneumonia. Dictated by: Dictated on workstation # [id number]
[2021-01-23 15:52] VITALS: BP 97/63
--- NOTE | 2021-01-23 16:09 | Discharge Summary ---
Discharge Summary Instructions for Patient Via [facility], Assessment/Instructions Follow up with ARCHIE Mckeon at [facility] on 01/30 at 10:20 am. Physician to follow Patient: ARCHIE Mckeon Discharge Diet for Home: ADA Diet Hospital Course Date of Admission: Jan 12, 2021 at 10:00 Admission Diagnosis : Family Physician/Provider: Mauro Nava Date of Discharge: 01/23/21 Discharge Diagnosis: See problem list Hospital Course: Pt admitted with COVID19 pneumonia, had prolonged course, received dexamethasone for 10 day course and started remdesevir but held due to worsening status, also received tocilizumab. Had acute renal insufficiency which resolved. CTA negative for PE. She required 5 lpm supplemental oxygen for several days prior to d/c and was anxious to go home, was discharged with 5 lpm supplemental oxygen for home use with home health services as well. Propranolol held on d/c due to low blood pressure. Labs and Pending Lab Test: Laboratory Tests 01/22/21 16:53: Glucometer 135H 01/22/21 20:18: Glucometer 163H 01/23/21 04:56: Glucometer 153H 01/23/21 11:04: Glucometer 226H 01/23/21 15:53: Glucometer 176H Microbiology 01/12/21 Blood Culture - Final, Complete No growth 01/11/21 C. difficile GDH Antigen & Toxins - Final, Complete Home Meds Active Reported Jardiance (Empagliflozin) 10 Mg Tablet 10 Mg PO DAILY Metoclopramide HCl 10 Mg Tablet 10 Mg PO TID Diclofenac Sodium 50 Mg Tablet.dr 50 Mg PO BID Ondansetron Odt (Ondansetron) 4 Mg Tab.rapdis 4 Mg PO Q8H PRN Tizanidine HCl 4 Mg Tablet 4 Mg PO TID PRN Famotidine 20 Mg Tablet 20 Mg PO BID Desvenlafaxine Succinate ER (Desvenlafaxine Succinate) 100 Mg Tab.er.24h 100 Mg PO DAILY Quetiapine Fumarate 400 Mg Tablet 400 Mg PO HS Mirtazapine 30 Mg Tablet 30 Mg PO HS Atorvastatin Calcium 10 Mg Tablet 10 Mg PO HS Propranolol HCl 60 Mg Tablet 60 Mg PO BID Levemir Flextouch (Insulin Detemir) 100 Unit/1 Ml Insuln.pen 15 Unit SQ HS Docusate Sodium 100 Mg Capsule 100 Mg PO BID Pioglitazone HCl 45 Mg Tablet 45 Mg PO DAILY Pantoprazole Sodium 40 Mg Tablet.dr 40 Mg PO BID Gabapentin 600 Mg Tablet 600 Mg PO TID Patient Allergies: Coded Allergies: lisinopril (Verified Allergy, Mild, COUGH, 11/22/20) montelukast (Verified Allergy, Unknown, UNABLE TO REMEMBER REACTION, 11/22/20) Uncoded Allergies: METALS (Allergy, Unknown, 07/12/14) Height (Feet): 5 Height (Inches): 3.00 Weight (Pounds): 240 Weight (Ounces): 2.0 Home Health Need/Face to Face Date of Face to Face: Jan 23, 2021 Clinical Findings: Generalized weakness and fatigue, Shortness of breath I have seen Pt [id number]: Yes Discharged To: Home Diagnosis/Conditions: See problem list Problems/Diagnosis/Condition: (1) COVID-19 (2) Acute kidney failure (3) Insulin dependent diabetes mellitus with complications Patient is Homebound due to: Shortness of breath/distress Homebound Status Due to the above stated illness, injury or surgical procedure (medical condition or diagnosis) and associated clinical findings, the patient is homebound because of his/her inability to leave home except with aid of a supportive device and/or person AND leaving the home requires a considerable and taxing effort or is medically contraindicated. Pt req the following assistanc: Aid of another person Home Health Nursing Orders Home Health Services Order: Nursing Services, Physical Therapy-Evaluate & Treat Home Health Infusion Therapy Line Start Date: Jan 16, 2021 Certify Stmt I certify that this patient is under my care and that I, a nurse practitioner or a physician; a lead recreation assistant working with me, had a face to face encounter that - meets the physician face to face encounter requirements with this patient as dated. Discharge Physical Exam General: Alert, No Acute Distress Lungs: Other (ronchi) Heart: Regular Rate, No Murmurs Neuro: Normal Speech Psych/Mental Status: Mood TAYLOR SOUSA MD Jan 23, 2021 16:05
[2021-01-23 17:53] VITALS: BP 97/63
== END 2021-01-23 18:49 | disposition home health service (06) | DRG 177 ==
LOC: EDUNIT# 00:19 → ER 00:21 → 4TH 02:01 → OBSVTOIN 01-12 10:00
PROVIDERS: ADMIT Family Medicine; ATTEND Family Medicine
DX: U07.1 COVID-19 (principal); J12.82 Pneumonia due to coronavirus disease 2019; J96.01 Acute respiratory failure with hypoxia; N17.9 Acute kidney failure, unspecified; Z68.41 Body mass index [BMI] 40.0-44.9, adult; E11.49 Type 2 diabetes mellitus with other diabetic neurological complication; R11.2 Nausea with vomiting, unspecified; E86.0 Dehydration; E66.9 Obesity, unspecified; G89.29 Other chronic pain; R10.9 Unspecified abdominal pain; I10 Essential (primary) hypertension; F41.9 Anxiety disorder, unspecified; F32.9 Major depressive disorder, single episode, unspecified; Z79.4 Long term (current) use of insulin; Z79.899 Other long term (current) drug therapy; J45.909 Unspecified asthma, uncomplicated; I25.10 Atherosclerotic heart disease of native coronary artery without angina pectoris; E78.00 Pure hypercholesterolemia, unspecified; G43.909 Migraine, unspecified, not intractable, without status migrainosus; K21.9 Gastro-esophageal reflux disease without esophagitis; K58.9 Irritable bowel syndrome, unspecified; M79.7 Fibromyalgia; E11.9 Type 2 diabetes mellitus without complications; F90.9 Attention-deficit hyperactivity disorder, unspecified type; F43.10 Post-traumatic stress disorder, unspecified
CPT/HCPCS: 36410; 36415; 36430; 36600; 71045; 71275; 76937; 80048; 80053; 82805; 82947; 83605; 83690; 83735; 84145; 84484; 85007; 85025; 85027; 85379; 86141; 86900; 86901; 87040; 87324; 87449; 91301; 93005; 94640; 94760; 94761; G0378

== ENCOUNTER 2021-02-27 06:06 | Emergency (ER) | payer MEDICARE, MEDICAID ==
[~2021-02-27] VITALS: Ht 160 cm; Wt 122.5 kg
[~2021-02-27 06:06] MED LIST changes: +EMPA10TA PO; +MTC10T PO; -QUET400T12 PO; +QUET400T13 PO
[2021-02-27] MEDS ORDERED: LACTATED RINGERS 1,000 ML IV ONE (06:15)
[2021-02-27] MEDS ORDERED: ONDANSETRON 4 MG/2 ML (SDV) Z0FRAN IVP ONE ×2 (06:15→07:15)
[2021-02-27] MEDS ORDERED: PANTOPRAZOLE 40 MG (PROTONIX) VIAL IV ONE (06:30)
--- NOTE | 2021-02-27 06:40 | ED GI ---
General Chief Complaint: Abdominal/GI Problems Stated Complaint: N/V X3 DAYS Source of Information: Patient, EMS, Old Records History of Present Illness Date Seen by Provider: Feb 27, 2021 Time Seen by Provider: 06:05 Initial Comments PT ARRIVES VIA EMS FROM HOME C/O NAUSEA/VOMITING X 3 DAYS STATES SHE HAS VOMITED "TOO MANY TIMES TO COUNT" NO DIARRHEA, HAD NORMAL BM TODAY, NO BLACK/BLOODY/TARRY STOOLS NO ABDOMINAL PAIN STATES SHE VOIDED A NORMAL AMOUNT THIS AM, NO PROBLEMS URINATING STATES HER TEMP WAS 99.8 AN HOUR AGO AT HOME NO CHEST PAIN CLAIMS SHE HAS NOT HAD ANYTHING TO EAT OR DRINK FOR 28 HOURS STATES SHE HAS NOT HAD ANY MEDICATIONS FOR 2 DAYS STATES THIS HAPPENS "EVERY MONTH" HAS NOT SOUGHT CARE UNTIL TODAY SYMPTOMS NO DIFFERENT TODAY HAS BEEN DX WITH GERD AND HIATAL HERNIA IN PAST, AND HAS HAD AN EGD IN PAST HAS NOT SEEN PATENTS EXAMINER. PT HAS HAD A MULTITUDE OF VISITS HERE, MANY FOR GI COMPLAINTS NO PRIOR ABDOMINAL SURGERIES, BUT HAS HAD EGD IN PAST WITHOUT ANY SIGNIFICANT FINDINGS PT IS INSULIN DEPENDENT DIABETIC. STATES HER BLOOD GLUCOSE WAS 144 THIS AM PT HAD COVID-19. DX 01/10/21 WAS HOSPITALIZED 01/10-01/23/21 FOR COVID-19 AND WAS DISMISSED TO HOME ON O2 AT 3-5L/NC PT DID NOT REQUIRE BIPAP OR MECHANICAL VENTILATION DURING HOSPITALIZATION SINCE BEING DISMISSED FROM HOSPITAL, SHE NOW HAS 24 HOUR/IN-HOME CAREGIVER. ADDITIONALLY, SHE HAS HOME HEALTH. PT DENIES ANY RESPIRATORY SYMPTOMS AT THIS TIME AND NO CHEST PAIN SAW KEKE STAPLES ONE TIME AFTER SHE WAS DISMISSED FROM HOSPITAL, AND NO OTHER FOLLOW UP VISITS HAVE BEEN MADE. Allergies and Home Medications Allergies Coded Allergies: lisinopril (Verified Allergy, Mild, COUGH, 11/22/20) montelukast (Verified Allergy, Unknown, UNABLE TO REMEMBER REACTION, 11/22/20) Uncoded Allergies: METALS (Allergy, Unknown, 07/12/14) Patient Home Medication List Home Medication List Reviewed: Yes Atorvastatin Calcium (Atorvastatin Calcium) 10 Mg Tablet, 10 MG PO HS, (Reported) Entered as Reported by: KAY ARENAS on 12/12/20 1224 Desvenlafaxine Succinate (Desvenlafaxine Succinate ER) 100 Mg Tab.er.24h, 100 MG PO DAILY, (Reported) Entered as Reported by: KAY ARENAS on 12/12/20 1224 Diclofenac Sodium (Diclofenac Sodium) 50 Mg Tablet.dr, 50 MG PO BID, (Reported) Entered as Reported by: KAY ARENAS on 01/10/21 1505 Docusate Sodium (Docusate Sodium) 100 Mg Capsule, 100 MG PO BID, (Reported) Entered as Reported by: KAY ARENAS on 11/22/19 1602 Doxycycline Hyclate (Doxycycline Hyclate) 100 Mg Tablet, 100 MG PO BID Prescribed by: RAKAN VILLAGOMEZ on 02/27/21 0843 Empagliflozin (Jardiance) 10 Mg Tablet, 10 MG PO DAILY, (Reported) Entered as Reported by: KAY ARENAS on 01/10/21 1505 Famotidine (Famotidine) 20 Mg Tablet, 20 MG PO BID, (Reported) Entered as Reported by: KAY ARENAS on 12/12/20 1224 Gabapentin (Gabapentin) 600 Mg Tablet, 600 MG PO TID, (Reported) Entered as Reported by: KAY ARENAS on 02/28/19 1002 Insulin Detemir (Levemir Flextouch) 100 Unit/1 Ml Insuln.pen, 15 UNIT SQ HS, (Reported) Entered as Reported by: KAY ARENAS on 11/22/19 1602 Metoclopramide HCl (Metoclopramide HCl) 10 Mg Tablet, 10 MG PO TID, (Reported) Entered as Reported by: KAY ARENAS on 01/10/21 1505 Mirtazapine (Mirtazapine) 30 Mg Tablet, 30 MG PO HS, (Reported) Entered as Reported by: KAY ARENAS on 12/12/20 1224 Ondansetron (Ondansetron Odt) 4 Mg Tab.rapdis, 4 MG PO Q8H PRN for NAUSEA/VOMITING-1ST LINE, (Reported) Entered as Reported by: KAY ARENAS on 01/10/21 1505 Ondansetron (Ondansetron Odt) 8 Mg Tab.rapdis, 8 MG PO Q6H Prescribed by: RAKAN VILLAGOMEZ on 02/27/21 0843 Pantoprazole Sodium (Pantoprazole Sodium) 40 Mg Tablet., 40 MG PO BID, (Reported) Entered as Reported by: KAY ARENAS on 02/28/19 1013 Pioglitazone HCl (Pioglitazone HCl) 45 Mg Tablet, 45 MG PO DAILY, (Reported) Entered as Reported by: KAY ARENAS on 11/22/19 1602 Promethazine HCl (Promethazine Suppository) 25 Mg Supp.rect, 25 MG RC Q6 Prescribed by: RAKAN VILLAGOMEZ on 02/27/21 0843 Quetiapine Fumarate (Quetiapine Fumarate) 400 Mg Tablet, 400 MG PO HS, (Reported) Entered as Reported by: KAY ARENAS on 12/12/20 1224 Scopolamine (Transderm-Scop) 1 Each Patch.td72, 1 EACH TD Q72H Prescribed by: RAKAN VILLAGOMEZ on 02/27/21 0843 Tizanidine HCl (Tizanidine HCl) 4 Mg Tablet, 4 MG PO TID PRN for MUSCLE SPASMS, (Reported) Entered as Reported by: KAY ARENAS on 12/12/20 1224 Review of Systems Review of Systems Constitutional: see HPI EENTM: No Symptoms Reported Respiratory: No Symptoms Reported Cardiovascular: No Symptoms Reported Gastrointestinal: See HPI; Denies Abdominal Pain, Denies Constipated, Denies Diarrhea; Nausea, Vomiting Genitourinary: No Symptoms Reported Musculoskeletal: no symptoms reported Skin: no symptoms reported Psychiatric/Neurological: Anxiety Endocrine: No Symptoms Reported Hematologic/Lymphatic: No Symptoms Reported Past Vtncnxz-Yeoudc-Pzdipi Hx Patient Social History Tobacco Use?: No Substance use?: No Alcohol Use?: No Immunizations Up To Date Tetanus Booster (TDap): Unknown Seasonal Allergies Seasonal Allergies: No Past Medical History Surgery/Hospitalization HX: HOSPITALIZED 01/10-01/23/21 FOR COVID-19 PNEUMONIA. NO BIPAP OR MECHANICAL VENTILATION. 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 Sexually Transmitted Disease: No Genitourinary: Yes Bladder Infection, Kidney Stones, Renal Failure Gastrointestinal: Yes (CHRONIC N/V) Gastroesophageal Reflux, Hiatal Hernia, Irritable Bowel Musculoskeletal: Yes Fibromyalgia Endocrine: Yes (INSULIN + ORAL MEDS--NON COMPLAINT; MORBID OBESITY) Diabetes, Insulin dep HEENT: Yes (EYE SURGERY; POOR DENTITION) Loss of Vision: Denies Hearing Impairment: Denies Cancer: No Psychosocial: Yes (EXTENSIVE PSYCH ISSUES) ADD/ADHD, Sleep Difficulties, Anxiety, PTSD, Depression Integumentary: No Blood Disorders: No Adverse Reaction/Blood Tranf: No Family Medical History Hypertension 19 FATHER CVA, GI Disease, Seizures Physical Exam Vital Signs Vital Signs - First Documented 02/27/21 02/27/21 06:08 07:33 Temp 36.1 Pulse 96 Resp 24 B/P (MAP) 132/73 (92) Pulse Ox 98 O2 Delivery Room Air O2 Flow Rate 2.00 Capillary Refill : Height/Weight/BMI Height: 5'3.00" Weight: 240lbs. 2.0oz. [id number]; 49.06 BMI Method:Stated General Appearance: obese, other (ANXIOUS, HYPERVENTILATING, VERY DRAMATIC. UNKEMPT, DIRTY, COVERED IN ANIMAL HAIR) HEENT: PERRL/EOMI, other (ORAL MUCOSA MOIST. EDENTULOUS) Neck: normal inspection Respiratory: normal breath sounds, no respiratory distress, no accessory muscle use Cardiovascular: regular rate, rhythm, no murmur Gastrointestinal: normal bowel sounds, soft, tenderness (MILD DIFFUSE TENDERNESS) Back: no CVA tenderness Neurologic/Psychiatric: no motor/sensory deficits, alert, oriented x 3 Skin: normal color, warm/dry, other (EXTENSIVE SORES/SCARS/SCABS TO FACE, ARMS, LEGS, ABDOMEN. NO SIGNS OF SECONDARY INFECTION) Progress/Results/Core Measures Results/Orders Lab Results Laboratory Tests Test 02/27/21 06:18 02/27/21 06:30 02/27/21 06:41 Range/Units Glucometer 174 H 70-110 MG/DL White Blood Count 7.0 4.3-11.0 10^3/uL Red Blood Count 4.36 3.80-5.11 10^6/uL Hemoglobin 11.4 L 11.5-16.0 g/dL Hematocrit 37 35-52 % Mean Corpuscular Volume 84 80-99 fL Mean Corpuscular Hemoglobin 26 25-34 pg Mean Corpuscular Hemoglobin Concent 31 L 32-36 g/dL Red Cell Distribution Width 17.6 H 10.0-14.5 % Platelet Count 281 130-400 10^3/uL Mean Platelet Volume 11.0 9.0-12.2 fL Immature Granulocyte % (Auto) 0 % Neutrophils (%) (Auto) 65 42-75 % Lymphocytes (%) (Auto) 25 12-44 % Monocytes (%) (Auto) 8 0-12 % Eosinophils (%) (Auto) 2 0-10 % Basophils (%) (Auto) 1 0-10 % Neutrophils # (Auto) 4.5 1.8-7.8 10^3/uL Lymphocytes # (Auto) 1.8 1.0-4.0 10^3/uL Monocytes # (Auto) 0.5 0.0-1.0 10^3/uL Eosinophils # (Auto) 0.1 0.0-0.3 10^3/uL Basophils # (Auto) 0.1 0.0-0.1 10^3/uL Immature Granulocyte # (Auto) 0.0 0.0-0.1 10^3/uL Sodium Level 140 135-145 MMOL/L Potassium Level 3.5 L 3.6-5.0 MMOL/L Chloride Level 101 98-107 MMOL/L Carbon Dioxide Level 25 21-32 MMOL/L Anion Gap 14 5-14 MMOL/L Blood Urea Nitrogen 11 7-18 MG/DL Creatinine 0.92 0.60-1.30 MG/DL Estimat Glomerular Filtration Rate 64 BUN/Creatinine Ratio 12 Glucose Level 161 H 70-105 MG/DL Calcium Level 10.3 H 8.5-10.1 MG/DL Corrected Calcium 10.1 8.5-10.1 MG/DL Magnesium Level 1.7 1.6-2.4 MG/DL Total Bilirubin 0.7 0.1-1.0 MG/DL Aspartate Amino Transf (AST/SGOT) 24 5-34 U/L Alanine Aminotransferase (ALT/SGPT) 28 0-55 U/L Alkaline Phosphatase 47 40-136 U/L B-Type Natriuretic Peptide < 10.0 <100.0 PG/ML Total Protein 7.6 6.4-8.2 GM/DL Albumin 4.2 3.2-4.5 GM/DL Amylase Level 41 25-125 U/L Lipase 20 8-78 U/L Serum Test, Qualitative NEGATIVE NEGATIVE Urine Color YELLOW Urine Clarity SL CLOUDY Urine pH 8.5 5-9 Urine Specific [place] 1.015 L 1.016-1.022 Urine Protein NEGATIVE NEGATIVE Urine Glucose (UA) 2+ H NEGATIVE Urine Ketones 1+ H NEGATIVE Urine Nitrite NEGATIVE NEGATIVE Urine Bilirubin NEGATIVE NEGATIVE Urine Urobilinogen 0.2 < = 1.0 MG/DL Urine Leukocyte Esterase NEGATIVE NEGATIVE Urine RBC (Auto) NEGATIVE NEGATIVE Urine RBC NONE /HPF Urine WBC 2-5 /HPF Urine Squamous Epithelial Cells 2-5 /HPF Urine Crystals NONE /LPF Urine Bacteria TRACE /HPF Urine Casts NONE /LPF Urine Mucus NEGATIVE /LPF Urine Culture Indicated NO Urine Opiates Screen NEGATIVE NEGATIVE Urine Oxycodone Screen NEGATIVE NEGATIVE Urine Methadone Screen NEGATIVE NEGATIVE Urine Propoxyphene Screen NEGATIVE NEGATIVE Urine Barbiturates Screen NEGATIVE NEGATIVE Ur Tricyclic Antidepressants Screen NEGATIVE NEGATIVE Urine Phencyclidine Screen NEGATIVE NEGATIVE Urine Amphetamines Screen NEGATIVE NEGATIVE Urine Methamphetamines Screen NEGATIVE NEGATIVE Urine Benzodiazepines Screen NEGATIVE NEGATIVE Urine Cocaine Screen NEGATIVE NEGATIVE Urine Cannabinoids Screen NEGATIVE NEGATIVE My Orders Orders - RAKAN VILLAGOMEZ DO Accucheck Stat ONCE (02/27/21 06:14) Ed Iv/Invasive Line Start (02/27/21 06:14) Monitor-Rhythm Ecg Trace Only (02/27/21 06:14) Amylase (02/27/21 06:14) Cbc With Automated Diff (02/27/21 06:14) Comprehensive Metabolic Panel (02/27/21 06:14) Drug Screen Stat (Urine) (02/27/21 06:14) Hcg,Qualitative Serum (02/27/21 06:14) Lipase (02/27/21 06:14) Magnesium (02/27/21 06:14) Ua Culture If Indicated (02/27/21 06:14) Ondansetron Injection (Zofran Injectio (02/27/21 06:15) Ed Iv/Invasive Line Start (02/27/21 06:14) Lactated Ringers (Lr 1000 Ml Iv Solution (02/27/21 06:15) Pantoprazole Injection (Protonix Injecti (02/27/21 06:30) Ondansetron Injection (Zofran Injectio (02/27/21 07:15) Scopolamine Patch (Transderm-Scop Patch) (02/27/21 07:15) Chest 1 View, Ap/Pa Only (02/27/21 07:33) BNP (02/27/21 07:33) Promethazine Injection (Phenergan Injec (02/27/21 08:00) Ed Iv/Invasive Line Start (02/27/21 08:16) Ns Iv 1000 Ml (Sodium Chloride 0.9%) (02/27/21 08:30) Hydralazine Injection (Apresoline Inject (02/27/21 08:45) Medications Given in ED Current Medications Medications Dose Ordered Sig/Kate Route Start Time Stop Time Status Last Admin Dose Admin Hydralazine HCl 5 mg ONCE ONCE IV 02/27/21 08:45 02/27/21 08:46 DC 02/27/21 08:50 5 MG Lactated Ringer's 1,000 ml @ 0 mls/hr Q0M ONCE IV 02/27/21 06:15 02/27/21 06:16 DC 02/27/21 06:36 999 MLS/HR Ondansetron HCl 4 mg ONCE ONCE IVP 02/27/21 06:15 02/27/21 06:16 DC 02/27/21 06:36 4 MG Ondansetron HCl 8 mg ONCE ONCE IVP 02/27/21 07:15 02/27/21 07:16 DC 02/27/21 07:21 8 MG Pantoprazole 40 mg ONCE ONCE IV 02/27/21 06:30 02/27/21 06:31 DC 02/27/21 06:36 40 MG Promethazine HCl 25 mg ONCE ONCE IVP 02/27/21 08:00 02/27/21 08:01 DC 02/27/21 08:23 25 MG Scopolamine 1.5 mg ONCE ONCE TD 02/27/21 07:15 02/27/21 07:16 DC 02/27/21 07:24 1.5 MG Vital Signs/I&O 02/27/21 02/27/21 02/27/21 06:08 07:33 09:29 Temp 36.1 Pulse 96 92 94 Resp 24 20 18 B/P (MAP) 132/73 (92) 154/90 152/83 Pulse Ox 98 100 100 O2 Delivery Room Air Nasal Cannula Nasal Cannula O2 Flow Rate 2.00 2.00 FSBG Bedside Testing Finger Stick Blood Glucose: 174 Progress Progress Note : Progress Note ACCUCHECK 174 O2 SATS 96-98% ON ROOM AIR PLACED ON O2 AT 2L/NC, AT PT'S REQUEST, SHE HAS BEEN WEARING HOME O2 CONTINUOUSLY, BUT DENIES DYSPNEA--O2 SATS 100% GIVEN IV FLUIDS, ZOFRAN AND PROTONIX NO VOMITING OR DRY HEAVING, YET PT CONTINUES TO C/O NAUSEA. ADDITIONAL ZOFRAN + SCOPOLAMINE GIVEN, THEN PHENERGAN GIVEN GIVEN HYDRALAZINE FOR ELEVATED BP, PT HAS NOT HAD ANY OF HER MEDICATIONS X 2 DAYS, AND PROPRANOLOL WAS DC'D WITH RECENT HOSPITAL ADMIT AND HAS NOT BEEN RESTARTED MACHINE OPERATOR HELPER ARRIVES AND IS IMMEDIATELY DEMANDING OF NURSING STAFF ( AND REMAINS VERY DEMANDING THROUGHOUT ENTIRE ER STAY ) AND DEMANDING "A SECOND OPINION" AND "A DIFFERENT ER PHYSICIAN" SOON SHE ENTERS ROOM, AND DEMANDING THAT PT BE ADMITTED. ADVISED HER THAT A "SECOND OPINION" IN THE ER WAS NOT AN OPTION, THERE IS ONLY ONE ER PHYSICIAN ON DUTY. ADVISED HER THAT PT WAS STILL GETTING TREATMENT TO CONTROL PT'S NAUSEA AND NO DECISION HAS BEEN MADE AT THIS TIME TO WHETHER SHE WILL BE ADMITTED OR NOT, SHE HAD ONLY HAD ONE DOSE OF NAUSEA MEDICATION AND ONLY 500 ML OF FLUIDS HAVE BEEN INFUSED AT THIS POINT, AND ALL OF HER LAB WAS ESSENTIALLY NORMAL. HAVE ADVISED MACHINE OPERATOR HELPER AND PATIENT, THAT [facility] AND PT DOES NOT MEET ADMIT CRITERIA AT THIS TIME. WILL SEND HOME WITH NAUSEA MEDICATIONS WELL ANTIBIOTIC FOR RESIDUAL INFILTRATE ON CXR, AND [facility]. 921--PT NOW WANTING TO GO HOME, IV FLUIDS WITH PHENERGAN HAVE NOT INFUSED, BUT PT IS NOW ADAMANT ABOUT GOING HOME. NO VOMITING OR DRY HEAVING AT ANY TIME DURING ER STAY, BUT STATES SHE STILL FEEL S NAUSEATED. NO HYPOXIA NO HYPOTENSION NO TACHYCARDIA OR BRADYCARDIA NO FEVER NO COUGH PT IS LEAVING, BOTH SHE AND CAREGIVER SMILING AND THANKING ALL STAFF, AND APOLOGIZING FOR "BEING A PAIN IN THE BUTT" Diagnostic Imaging Comments CXR--PER RADIOLOGIST REPORT AT 08 FINDINGS: Single frontal radiograph view the chest was obtained and demonstrates overall improved aeration. There is residual diffuse interstitial infiltrate throughout the right lung. There is no large effusion or pneumothorax. Cardiac silhouette and pulmonary vasculature are within normal limits. Osseous structures show no gross acute abnormalities. IMPRESSION: 1. Overall improved aeration, but with persistent diffuse interstitial infiltrate throughout the right lung. Reviewed: Reviewed by Me Departure Communication (Admissions) [id number]--SPOKE WITH DR. PHILLIP, HOSPITALIST FOR [facility], ADVISES THAT PT DOES NOT MEET ADMIT CRITERIA AT THIS TIME Impression Primary Impression: CHRONIC NAUSEA AND VOMITING Additional Impressions: IDDM (insulin dependent diabetes mellitus) IMPROVING COVID-19 PNEUMONIA HTN (hypertension) Disposition: 01 HOME, SELF-CARE Condition: Stable Departure-Patient Inst. Decision time for Depature: 09:22 Referrals: [facility] (PCP) Primary Care Physician ALISON STAPLES (Family) Primary Care Physician Patient Instructions: Nausea and Vomiting, Adult, Recovery After COVID-19, Sick Day Management for Diabetics Add. Discharge Instructions: LEAVE SCOPOLAMINE PATCH IN PLACE FOR 3 DAYS CONTINUE YOUR REGULAR MEDICATIONS PRESCRIBED--TAKE YOUR MORNING MEDICATIONS SOON YOU GET HOME CHECK YOUR BLOOD SUGAR 4 TIMES A DAY--BEFORE EACH MEAL AND AT BEDTIME FOLLOW UP WITH [facility] TOMORROW FOR FURTHER CARE, RETURN TO ER IF WORSE All discharge instructions reviewed with patient and/or family. Voiced under standing. Scripts Promethazine HCl (Promethazine Suppository) 25 Mg Supp.rect 25 MG RC Q6 for Nausea/Vomiting, #10 SUPP.RECT Prov: RAKAN VILLAGOMEZ DO 02/27/21 Ondansetron (Ondansetron Odt) 8 Mg Tab.rapdis 8 MG PO Q6H, #10 TAB Prov: RAKAN VILLAGOMEZ DO 02/27/21 Scopolamine (Transderm-Scop) 1 Each Patch.td72 1 EACH TD Q72H, #3 PATCH Prov: RAKAN VILLAGOMEZ DO 02/27/21 Doxycycline Hyclate (Doxycycline Hyclate) 100 Mg Tablet 100 MG PO BID, #20 TAB 0 Refills Prov: RAKAN VILLAGOMEZ DO 02/27/21 RAKAN VILLAGOMEZ DO Feb 27, 2021 06:40
[2021-02-27 06:49] LABS: BASOPHILS # (AUTO) 0.1 10^3/uL (0.0-0.1); BASOPHILS % (AUTO) 1 % (0-10); EOSINOPHILS # (AUTO) 0.1 10^3/uL (0.0-0.3); EOSINOPHILS % (AUTO) 2 % (0-10); HEMATOCRIT 37 % (35-52); HEMOGLOBIN 11.4 g/dL (11.5-16.0); LYMPHOCYTES # (AUTO) 1.8 10^3/uL (1.0-4.0); LYMPHOCYTES % (AUTO) 25 % (12-44); MEAN CORPUSCULAR HEMOGLOBIN 26 pg (25-34); MEAN CORPUSCULAR HGB CONC 31 g/dL (32-36); MEAN CORPUSCULAR VOLUME 84 fL (80-99); MONOCYTES # (AUTO) 0.5 10^3/uL (0.0-1.0); MONOCYTES % (AUTO) 8 % (0-12); NEUTROPHILS # (AUTO) 4.5 10^3/uL (1.8-7.8); NEUTROPHILS % (AUTO) 65 % (42-75); PLATELET COUNT 281 10^3/uL (130-400)
[2021-02-27 06:50] LABS: BILIRUBIN,URINE NEGATIVE (NEGATIVE); CLARITY,URINE SL CLOUDY; COLOR,URINE YELLOW; GLUCOSE, URINE (UA) 2+ (NEGATIVE); KETONES,URINE 1+ (NEGATIVE); LEUKOCYTE ESTERASE ,URINE NEGATIVE (NEGATIVE); NITRITE,URINE NEGATIVE (NEGATIVE); PH,URINE 8.5 (5-9); PROTEIN,URINE NEGATIVE (NEGATIVE)
[2021-02-27 06:59] LABS: BACTERIA,URINE TRACE /HPF
[2021-02-27 07:01] LABS: AMPHETAMINE SCREEN, URINE NEGATIVE (NEGATIVE); BARBITURATE SCREEN URINE NEGATIVE (NEGATIVE); BENZODIAZEPINES SCREEN URINE NEGATIVE (NEGATIVE); CANNABINOID SCREEN, URINE NEGATIVE (NEGATIVE); COCAINE SCREEN URINE NEGATIVE (NEGATIVE); METHADONE STAT NEGATIVE (NEGATIVE); METHAMPHETAMINE SCREEN URINE S NEGATIVE (NEGATIVE); OPIATE SCREEN URINE NEGATIVE (NEGATIVE); OXYCODONE STAT NEGATIVE (NEGATIVE); PROPOXYPHENE STAT NEGATIVE (NEGATIVE); TRICYCLIC ANTIDEPRESSANTS SCRE NEGATIVE (NEGATIVE)
[2021-02-27 07:03] LABS: ALBUMIN 4.2 GM/DL (3.2-4.5)
[2021-02-27 07:04] LABS: POTASSIUM 3.5 MMOL/L (3.6-5.0)
[2021-02-27 07:05] LABS: CALCIUM 10.3 MG/DL (8.5-10.1)
[2021-02-27 07:06] LABS: TOTAL PROTEIN 7.6 GM/DL (6.4-8.2)
[2021-02-27 07:08] LABS: BILIRUBIN,TOTAL 0.7 MG/DL (0.1-1.0)
[2021-02-27 07:10] LABS: CREATININE SERUM 0.92 MG/DL (0.60-1.30)
[2021-02-27 07:12] LABS: MAGNESIUM 1.7 MG/DL (1.6-2.4)
[2021-02-27] MEDS ORDERED: SCOPOLAMINE 1.5 MG (TRANSDERM-SCOP) PATCH TD ONE (07:15)
[2021-02-27] MEDS ORDERED: PROMETHAZINE INJ 25 MG/ML (PHENERGAN) AMP IVP ONE (08:00)
--- NOTE | 2021-02-27 08:20 | Diagnostic Imaging Report ---
Indication: Nausea and vomiting. History of pneumonia. COMPARISON: 01/19/2021 FINDINGS: Single frontal radiograph view the chest was obtained and demonstrates overall improved aeration. There is residual diffuse interstitial infiltrate throughout the right lung. There is no large effusion or pneumothorax. Cardiac silhouette and pulmonary vasculature are within normal limits. Osseous structures show no gross acute abnormalities. IMPRESSION: 1. Overall improved aeration, but with persistent diffuse interstitial infiltrate throughout the right lung. Dictated by: Dictated on workstation # [id number]
[2021-02-27] MEDS ORDERED: NS IV 1000 ML 1,000 ML IV SCH (08:30)
[2021-02-27] MEDS ORDERED: ONDA8TAB13 PO (08:43)
[2021-02-27] MEDS ORDERED: SCOP1PAT11 TD (08:43)
[2021-02-27] MEDS ORDERED: DOXY100T2 PO (08:43)
[2021-02-27] MEDS ORDERED: PROM25SU44 RC (08:43)
[2021-02-27] MEDS ORDERED: hydrALAZINE (APESOLINE) 20 MG/ML VIAL IV ONE (08:45)
[2021-02-27 09:29] VITALS: BP 152/83
[2021-02-28] MEDS ORDERED: PROP60TA17 PO (16:37)
[2021-02-28] MEDS ORDERED: SPIR25TA5 PO (16:37)
[2021-02-28] MEDS ORDERED: PROM25SU44 RC (16:37)
[2021-02-28] MEDS ORDERED: DOXY100T2 PO (16:37)
[2021-02-28] MEDS ORDERED: ONDA8TAB13 PO (16:37)
[2021-02-28] MEDS ORDERED: SCOP1PAT11 TD (16:37)
[2021-03-03] MEDS ORDERED: INSU100I29 SQ (13:16)
== END 2021-02-27 09:28 | disposition home or self-care (01) ==
LOC: EDUNIT# 06:06 → ER 06:08
DX: R11.2 Nausea with vomiting, unspecified (principal); I10 Essential (primary) hypertension; J45.909 Unspecified asthma, uncomplicated; E78.00 Pure hypercholesterolemia, unspecified; I25.10 Atherosclerotic heart disease of native coronary artery without angina pectoris; E11.9 Type 2 diabetes mellitus without complications; F41.9 Anxiety disorder, unspecified; E66.9 Obesity, unspecified; F32.9 Major depressive disorder, single episode, unspecified; K21.9 Gastro-esophageal reflux disease without esophagitis; R06.4 Hyperventilation; Z68.42 Body mass index [BMI] 45.0-49.9, adult; Z86.16 Personal history of COVID-19; Z79.4 Long term (current) use of insulin; Z79.899 Other long term (current) drug therapy
CPT/HCPCS: 36415; 71045; 80053; 80306; 81000; 82150; 82947; 83690; 83735; 83880; 84703; 85025; 93041; 96361; 96374; 96375; 96376

== ENCOUNTER 2021-02-27 16:55 | Emergency (ER) | payer MEDICARE, MEDICAID ==
[~2021-02-27] VITALS: Ht 160 cm; Wt 122.0 kg
[~2021-02-27 16:55] MED LIST changes: +DOXY100T2 PO; +SCOP1PAT11 TD
[2021-02-27] MEDS ORDERED: METOCLOPRAMIDE INJ 10 MG/2 ML (REGLAN) IVP STA (16:58)
[2021-02-27] MEDS ORDERED: diphenhydrAMINE 50 MG/ML INJ (BENADRYL) IVP ONE (17:00)
[2021-02-27] MEDS ORDERED: LACTATED RINGERS 1,000 ML IV ONE (17:00)
[2021-02-27] MEDS ORDERED: ONDANSETRON 4 MG/2 ML (SDV) Z0FRAN IVP ONE (17:00)
[2021-02-27] MEDS ORDERED: NS 100 ML (IVPB) BAG IV ONE (17:15)
[2021-02-27] MEDS ORDERED: HOLD METFORMIN - RECEIVED CONTRAST 20 ML VIAL IV SCH (17:15)
[2021-02-27] MEDS ORDERED: IOHEXOL 350 MG/ML 100 ML (OMNIPAQUE 350) VIAL IV ONE (17:15)
--- NOTE | 2021-02-27 17:15 | ED GI ---
General Chief Complaint: Abdominal/GI Problems Stated Complaint: RETURNING TO ED...UNK C/C Nursing Triage Note: Patient brought via BLS by [facility] for continued abdominal pain since this morning. Patient on 5L O2, this is what patient is on at home. Patient was seen earlier today but reports worsening in abdominal pain. Patient has taking her medication for nausea without changes. Patient sitting up in room 01. Source of Information: Patient (HERNANDORAKAN Rouse DO) History of Present Illness Date Seen by Provider: Feb 27, 2021 Time Seen by Provider: 16:49 Initial Comments PT ARRIVES VIA EMS FROM HOME PT WAS HERE THIS MORNING FOR THIS SAME CHRONIC COMPLAINT OF NAUSEA/VOMITING PT STATES SHE WENT HOME AND GOT MEDICATIONS FILLED AND TOOK THEM AROUND 1430 AND IS NOT BETTER CLAIMS SHE HAS VOMITED "TOO MANY TIMES TO COUNT" SINCE SHE GOT HOME--EMS REPORT THAT PT WAS SITTING ON COUCH, WITH NO EVIDENCE OF EMESIS AT THE SCENE OR ON PERSON. STATES NOW HER STOMACH IS STARTING TO HURT SEE ER CHART FROM EARLIER TODAY FOR DETAILS. (RAKAN SAUNDERS DO) Allergies and Home Medications Allergies Coded Allergies: lisinopril (Verified Allergy, Mild, COUGH, 11/22/20) montelukast (Verified Allergy, Unknown, UNABLE TO REMEMBER REACTION, 11/22/20) Uncoded Allergies: METALS (Allergy, Unknown, 07/12/14) Patient Home Medication List Home Medication List Reviewed: Yes (RAKAN SAUNDERS DO) Atorvastatin Calcium (Atorvastatin Calcium) 10 Mg Tablet, 10 MG PO HS, (Reported) Entered as Reported by: KAY ARENAS on 12/12/20 1224 Desvenlafaxine Succinate (Desvenlafaxine Succinate ER) 100 Mg Tab.er.24h, 100 MG PO DAILY, (Reported) Entered as Reported by: KAY ARENAS on 12/12/20 1224 Diclofenac Sodium (Diclofenac Sodium) 50 Mg Tablet.dr, 50 MG PO BID, (Reported) Entered as Reported by: KAY ARENAS on 01/10/21 1505 Docusate Sodium (Docusate Sodium) 100 Mg Capsule, 100 MG PO BID, (Reported) Entered as Reported by: KAY ARENAS on 11/22/19 1602 Doxycycline Hyclate (Doxycycline Hyclate) 100 Mg Tablet, 100 MG PO BID Prescribed by: RAKAN SAUNDERS on 02/27/21 0843 Empagliflozin (Jardiance) 10 Mg Tablet, 10 MG PO DAILY, (Reported) Entered as Reported by: KAY ARENAS on 01/10/21 1505 Famotidine (Famotidine) 20 Mg Tablet, 20 MG PO BID, (Reported) Entered as Reported by: KAY ARENAS on 12/12/20 1224 Gabapentin (Gabapentin) 600 Mg Tablet, 600 MG PO TID, (Reported) Entered as Reported by: KAY ARENAS on 02/28/19 1002 Insulin Detemir (Levemir Flextouch) 100 Unit/1 Ml Insuln.pen, 15 UNIT SQ HS, (Reported) Entered as Reported by: KAY ARENAS on 11/22/19 1602 Metoclopramide HCl (Metoclopramide HCl) 10 Mg Tablet, 10 MG PO TID, (Reported) Entered as Reported by: KAY ARENAS on 01/10/21 1505 Mirtazapine (Mirtazapine) 30 Mg Tablet, 30 MG PO HS, (Reported) Entered as Reported by: KAY ARENAS on 12/12/20 1224 Ondansetron (Ondansetron Odt) 4 Mg Tab.rapdis, 4 MG PO Q8H PRN for NAUSEA/VOMITING-1ST LINE, (Reported) Entered as Reported by: KAY ARENAS on 01/10/21 1505 Ondansetron (Ondansetron Odt) 8 Mg Tab.rapdis, 8 MG PO Q6H Prescribed by: RAKAN SAUNDERS on 02/27/21 0843 Pantoprazole Sodium (Pantoprazole Sodium) 40 Mg Tablet.dr, 40 MG PO BID, (Reported) Entered as Reported by: KAY ARENAS on 02/28/19 1013 Pioglitazone HCl (Pioglitazone HCl) 45 Mg Tablet, 45 MG PO DAILY, (Reported) Entered as Reported by: KAY ARENAS on 11/22/19 1602 Promethazine HCl (Promethazine Suppository) 25 Mg Supp.rect, 25 MG RC Q6 Prescribed by: RAKAN SAUNDERS on 02/27/21 0843 Quetiapine Fumarate (Quetiapine Fumarate) 400 Mg Tablet, 400 MG PO HS, (Reported) Entered as Reported by: KAY ARENAS on 12/12/20 1224 Scopolamine (Transderm-Scop) 1 Each Patch.td72, 1 EACH TD Q72H Prescribed by: RAKAN SAUNDERS on 02/27/21 0843 Tizanidine HCl (Tizanidine HCl) 4 Mg Tablet, 4 MG PO TID PRN for MUSCLE SPASMS, (Reported) Entered as Reported by: KAY ARENAS on 12/12/20 1224 Review of Systems Review of Systems Constitutional: no symptoms reported Respiratory: No Symptoms Reported Cardiovascular: No Symptoms Reported Gastrointestinal: See HPI Genitourinary: No Symptoms Reported Musculoskeletal: no symptoms reported Skin: no symptoms reported Psychiatric/Neurological: Anxiety Endocrine: No Symptoms Reported (RAKAN SAUNDERS DO) Past Sxcjoln-Kapjwj-Pbirsi Hx Patient Social History Tobacco Use?: No Substance use?: No Alcohol Use?: No Pt feels they are or have been: No (RAKAN SAUNDERS DO) Immunizations Up To Date Tetanus Booster (TDap): Unknown First/Initial COVID19 Vaccinat: 01/2021 Second COVID19 Vaccination Juan M: 02/19/21 COVID19 Vaccine Trimmer Loader: Jr (RAKAN SAUNDERS DO) Seasonal Allergies Seasonal Allergies: No (RAKAN SAUNDERS DO) Past Medical History Surgery/Hospitalization HX: Denies. 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 Sexually Transmitted Disease: No Genitourinary: Yes Bladder Infection, Kidney Stones, Renal Failure Gastrointestinal: Yes (CHRONIC N/V) Gastroesophageal Reflux, Hiatal Hernia, Irritable Bowel Musculoskeletal: Yes Fibromyalgia Endocrine: Yes (INSULIN + ORAL MEDS--NON COMPLAINT; MORBID OBESITY) Diabetes, Insulin dep HEENT: Yes (EYE SURGERY; POOR DENTITION) Loss of Vision: Denies Hearing Impairment: Denies Cancer: No Psychosocial: Yes (EXTENSIVE PSYCH ISSUES) ADD/ADHD, Sleep Difficulties, Anxiety, PTSD, Depression Integumentary: No Blood Disorders: No Adverse Reaction/Blood Tranf: No (RAKAN SAUNDERS DO) Family Medical History Hypertension 19 FATHER CVA, GI Disease, Seizures (RAKAN SAUNDERS DO) Physical Exam Vital Signs Vital Signs - First Documented 02/27/21 02/27/21 16:55 19:53 Temp 36.2 Pulse 96 Resp 20 B/P (MAP) 155/117 Pulse Ox 100 O2 Delivery Room Air O2 Flow Rate 2.00 (LENNY BOYKIN MD) Vital Signs Capillary Refill : Less Than 3 Seconds (RAKAN SAUNDERS DO) Height/Weight/BMI Height: 5'3.00" Weight: 240lbs. 2.0oz. 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, no motor/sensory deficits, alert, oriented x 3 Skin: normal color, warm/dry (RAKAN SAUNDERS DO) Progress/Results/Core Measures Results/Orders Lab Results Laboratory Tests Test 02/27/21 17:47 Range/Units White Blood Count 8.1 4.3-11.0 10^3/uL Red Blood Count 4.19 3.80-5.11 10^6/uL Hemoglobin 10.8 L 11.5-16.0 g/dL Hematocrit 35 35-52 % Mean Corpuscular Volume 84 80-99 fL Mean Corpuscular Hemoglobin 26 25-34 pg Mean Corpuscular Hemoglobin Concent 31 L 32-36 g/dL Red Cell Distribution Width 18.2 H 10.0-14.5 % Platelet Count 285 130-400 10^3/uL Mean Platelet Volume 10.6 9.0-12.2 fL Immature Granulocyte % (Auto) 0 % Neutrophils (%) (Auto) 67 42-75 % Lymphocytes (%) (Auto) 23 12-44 % Monocytes (%) (Auto) 8 0-12 % Eosinophils (%) (Auto) 1 0-10 % Basophils (%) (Auto) 1 0-10 % Neutrophils # (Auto) 5.4 1.8-7.8 10^3/uL Lymphocytes # (Auto) 1.9 1.0-4.0 10^3/uL Monocytes # (Auto) 0.7 0.0-1.0 10^3/uL Eosinophils # (Auto) 0.1 0.0-0.3 10^3/uL Basophils # (Auto) 0.0 0.0-0.1 10^3/uL Immature Granulocyte # (Auto) 0.0 0.0-0.1 10^3/uL Sodium Level 139 135-145 MMOL/L Potassium Level 3.7 3.6-5.0 MMOL/L Chloride Level 103 98-107 MMOL/L Carbon Dioxide Level 24 21-32 MMOL/L Anion Gap 12 5-14 MMOL/L Blood Urea Nitrogen 10 7-18 MG/DL Creatinine 0.93 0.60-1.30 MG/DL Estimat Glomerular Filtration Rate 63 BUN/Creatinine Ratio 11 Glucose Level 142 H 70-105 MG/DL Calcium Level 9.9 8.5-10.1 MG/DL Corrected Calcium 9.8 8.5-10.1 MG/DL Magnesium Level 1.8 1.6-2.4 MG/DL Total Bilirubin 0.7 0.1-1.0 MG/DL Aspartate Amino Transf (AST/SGOT) 23 5-34 U/L Alanine Aminotransferase (ALT/SGPT) 27 0-55 U/L Alkaline Phosphatase 45 40-136 U/L C-Reactive Protein High Sensitivity 0.76 H 0.00-0.50 MG/DL Total Protein 7.3 6.4-8.2 GM/DL Albumin 4.1 3.2-4.5 GM/DL Amylase Level 36 25-125 U/L Lipase 13 8-78 U/L (LENNY BOYKIN MD) My Orders Orders - LENNY BOYKIN MD Hs C Reactive Protein (02/27/21 18:11) (LENNY BOYKIN MD) Medications Given in ED (LENNY BOYKIN MD) Vital Signs/I&O 02/27/21 02/27/21 02/27/21 16:55 16:55 19:53 Temp 36.2 36.2 36.2 Pulse 96 96 106 Resp 20 18 B/P (MAP) 155/117 155/117 (130) 149/92 Pulse Ox 100 100 O2 Delivery Room Air Room Air Room Air O2 Flow Rate 2.00 02/28/21 00:00 Intake Total 1000 ml Balance 1000 ml (LENNY BOYKIN MD) Blood Pressure Mean: 130 Progress Progress Note : Progress Note GIVEN IV FLUIDS AND NAUSEA MEDICATIONS 1800--CARE TURNED OVER TO DR. BOYKIN AT SHIFT CHANGE. ALL STUDIES PENDING (RAKAN SAUNDERS DO) Progress Note : Time: 19:33 Progress Note I assumed care of this patient from Dr. Saunders at shift change. The labs have been reviewed. CT scan has been reviewed and report reviewed. No significant abnormalities have been identified. Patient has not exhibited any vomiting in the ER. She does appear anxious to me when I visit with her but she denies feeling anxious. She declines any treatment for anxiety. I have explained the unremarkable work-up to the patient and have advised her based on work-up I do not have admissible diagnosis. I asked her to try a fluid challenge to ensure she can hydrate. I offered to give Reglan prior to the fluid challenge as this is a therapy she has had for potential gastroparesis in the past. Patient both declines Reglan and declines to attempt a fluid challenge. She requests that I discharge her home. I did inform her that without demonstrating she is not able to tolerate oral fluids, I cannot admit her to the hospital. She expressed understanding and reiterated she would like to go home without performing an oral fluid challenge. (LENNY BOYKIN MD) Diagnostic Imaging Diagonstic Imaging: CT Plain Films/CT/US/NM/MRI: abdomen, pelvis Comments CT abdomen and pelvis viewed by me and report reviewed. See report below: NAME: [facility] REC#: [id number] PT STATUS: REG ER : 1970 PHYSICIAN: RAKAN SAUNDERS DO ADMIT DATE: 02/27/21/ER Signed Date of Exam:02/27/21 CT ABDOMEN/PELVIS W INDICATION: Nausea, vomiting, and abdominal pain TECHNIQUE: Multiple contiguous axial images were obtained through the abdomen and pelvis after administration of intravenous contrast. Auto Exposure Controls were utilized during the CT exam to meet ALARA standards for radiation dose reduction. All CT scans use one or more of the following dose optimizing techniques: automated exposure control, MA and/or KvP adjustment based on patient size and exam type or iterative reconstruction. Comparison made to the prior study of 08/18/2020. The visualized portions of the lung bases show bibasilar atelectatic changes. There is no pleural fluid. There is no free intraperitoneal air. The liver shows mild diffuse low-density change compatible with fatty infiltration. Gallbladder appears unremarkable. The spleen and adrenals and pancreas appear normal. The kidneys bilaterally show some cortical scarring but no hydronephrosis or mass. There is no retroperitoneal mass or adenopathy. There is no ascites. Visualized bowel loops show no sign of obstruction or focal bowel wall thickening. There is no pelvic mass or lymphadenopathy. IMPRESSION: There is bibasilar atelectasis. There is fatty change in the liver. There is no sign of bowel obstruction or focal bowel wall thickening. There is cortical scarring of both kidneys. No acute abnormality is detected. Dictated by: Dictated on workstation # [id number] Dict: 02/27/218 Trans: 02/27/211856 [facility] [id number] Interpreted by: GEGE SERRANO MD Electronically signed by: GEGE SERRANO MD 02/27/211856 (LENNY BOYKIN MD) Departure Impression Primary Impression: Abdominal discomfort Additional Impression: Nausea and vomiting Qualified Codes: R11.2 - Nausea with vomiting, unspecified Disposition: 01 HOME, SELF-CARE Condition: Improved Departure-Patient Inst. Decision time for Depature: 19:36 (LENNY BOYKIN MD) Referrals: [facility] (PCP) Primary Care Physician ALISON STAPLES (Family) Primary Care Physician Patient Instructions: Abdominal Pain, Adult ED, Nausea and Vomiting, Adult Add. Discharge Instructions: Your work-up in the emergency department was unremarkable. You appear medically stable for discharge. Follow-up with your primary care provider soon as possible. Please call first thing in the morning to arrange follow-up. Use your medications as previously prescribed to control your symptoms. Adhere to a noncarbonated clear liquid diet for at least 24 hours. Then gradually advance your diet with small quantities of bland food as tolerated. Call with questions or concerns. Return to the ER if you have worsening or uncontrollable symptoms. All discharge instructions reviewed with patient and/or family. Voiced understanding. Copy Copies To 1: STANFORD CAAL LISA K DO Feb 27, 2021 17:15 LENNY BOYKIN MD Feb 27, 2021 19:39
[2021-02-27 18:01] LABS: BASOPHILS % (AUTO) 1 % (0-10); EOSINOPHILS # (AUTO) 0.1 10^3/uL (0.0-0.3); EOSINOPHILS % (AUTO) 1 % (0-10); HEMATOCRIT 35 % (35-52); HEMOGLOBIN 10.8 g/dL (11.5-16.0); LYMPHOCYTES # (AUTO) 1.9 10^3/uL (1.0-4.0); LYMPHOCYTES % (AUTO) 23 % (12-44); MEAN CORPUSCULAR HEMOGLOBIN 26 pg (25-34); MEAN CORPUSCULAR HGB CONC 31 g/dL (32-36); MEAN CORPUSCULAR VOLUME 84 fL (80-99); MEAN PLATELET VOLUME 10.6 fL (9.0-12.2); MONOCYTES # (AUTO) 0.7 10^3/uL (0.0-1.0); MONOCYTES % (AUTO) 8 % (0-12); NEUTROPHILS # (AUTO) 5.4 10^3/uL (1.8-7.8); NEUTROPHILS % (AUTO) 67 % (42-75); PLATELET COUNT 285 10^3/uL (130-400); WHITE BLOOD COUNT 8.1 10^3/uL (4.3-11.0)
[2021-02-27 18:17] LABS: ALBUMIN 4.1 GM/DL (3.2-4.5); POTASSIUM 3.7 MMOL/L (3.6-5.0)
[2021-02-27 18:18] LABS: CALCIUM 9.9 MG/DL (8.5-10.1)
[2021-02-27 18:19] LABS: TOTAL PROTEIN 7.3 GM/DL (6.4-8.2)
[2021-02-27 18:21] LABS: BILIRUBIN,TOTAL 0.7 MG/DL (0.1-1.0)
[2021-02-27 18:23] LABS: CREATININE SERUM 0.93 MG/DL (0.60-1.30)
[2021-02-27 18:26] LABS: MAGNESIUM 1.8 MG/DL (1.6-2.4)
--- NOTE | 2021-02-27 18:54 | Diagnostic Imaging Report ---
INDICATION: Nausea, vomiting, and abdominal pain TECHNIQUE: Multiple contiguous axial images were obtained through the abdomen and pelvis after administration of intravenous contrast. Auto Exposure Controls were utilized during the CT exam to meet ALARA standards for radiation dose reduction. All CT scans use one or more of the following dose optimizing techniques: automated exposure control, MA and/or KvP adjustment based on patient size and exam type or iterative reconstruction. Comparison made to the prior study of 08/18/2020. The visualized portions of the lung bases show bibasilar atelectatic changes. There is no pleural fluid. There is no free intraperitoneal air. The liver shows mild diffuse low-density change compatible with fatty infiltration. Gallbladder appears unremarkable. The spleen and adrenals and pancreas appear normal. The kidneys bilaterally show some cortical scarring but no hydronephrosis or mass. There is no retroperitoneal mass or adenopathy. There is no ascites. Visualized bowel loops show no sign of obstruction or focal bowel wall thickening. There is no pelvic mass or lymphadenopathy. IMPRESSION: There is bibasilar atelectasis. There is fatty change in the liver. There is no sign of bowel obstruction or focal bowel wall thickening. There is cortical scarring of both kidneys. No acute abnormality is detected. Dictated by: Dictated on workstation # [id number]
[2021-02-27 19:53] VITALS: BP 149/92
[2021-02-28] MEDS ORDERED: ONDA8TAB13 PO (16:37)
[2021-02-28] MEDS ORDERED: PROP60TA17 PO (16:37)
[2021-02-28] MEDS ORDERED: DOXY100T2 PO (16:37)
[2021-02-28] MEDS ORDERED: SCOP1PAT11 TD (16:37)
[2021-02-28] MEDS ORDERED: PROM25SU44 RC (16:37)
[2021-02-28] MEDS ORDERED: SPIR25TA5 PO (16:37)
[2021-03-03] MEDS ORDERED: INSU100I29 SQ (13:16)
== END 2021-02-27 19:56 | disposition home or self-care (01) ==
LOC: EDUNIT# 16:55 → ER 16:56
DX: R10.84 Generalized abdominal pain (principal); R11.2 Nausea with vomiting, unspecified; J45.909 Unspecified asthma, uncomplicated; I10 Essential (primary) hypertension; E78.00 Pure hypercholesterolemia, unspecified; E66.9 Obesity, unspecified; F41.9 Anxiety disorder, unspecified; F32.9 Major depressive disorder, single episode, unspecified; K21.9 Gastro-esophageal reflux disease without esophagitis; E11.9 Type 2 diabetes mellitus without complications; I25.10 Atherosclerotic heart disease of native coronary artery without angina pectoris; Z68.42 Body mass index [BMI] 45.0-49.9, adult; Z79.4 Long term (current) use of insulin; Z79.899 Other long term (current) drug therapy
CPT/HCPCS: 36415; 74177; 80053; 82150; 83690; 83735; 85025; 86141; 93041; 96361; 96374; 96375

== ENCOUNTER 2021-02-28 00:05 | Emergency (ER) | payer MEDICARE, MEDICAID ==
[~2021-02-28] VITALS: Ht 160 cm; Wt 119.8 kg
[2021-02-28] MEDS ORDERED: PROMETHAZINE INJ 25 MG/ML (PHENERGAN) AMP IVP ONE (01:45)
[2021-02-28] MEDS ORDERED: fentaNYL INJ 100 MCG/2 ML AMP IVP ONE ×2 (01:45→07:15)
[2021-02-28] MEDS ORDERED: LACTATED RINGERS 1,000 ML IV SCH (01:45)
[2021-02-28 01:48] LABS: BASOPHILS % (AUTO) 0 % (0-10); EOSINOPHILS # (AUTO) 0.1 10^3/uL (0.0-0.3); EOSINOPHILS % (AUTO) 1 % (0-10); HEMATOCRIT 35 % (35-52); HEMOGLOBIN 11.2 g/dL (11.5-16.0); LYMPHOCYTES # (AUTO) 1.7 10^3/uL (1.0-4.0); LYMPHOCYTES % (AUTO) 17 % (12-44); MEAN CORPUSCULAR HEMOGLOBIN 27 pg (25-34); MEAN CORPUSCULAR HGB CONC 32 g/dL (32-36); MEAN CORPUSCULAR VOLUME 84 fL (80-99); MEAN PLATELET VOLUME 11.6 fL (9.0-12.2); MONOCYTES # (AUTO) 0.8 10^3/uL (0.0-1.0); MONOCYTES % (AUTO) 9 % (0-12); NEUTROPHILS % (AUTO) 73 % (42-75); PLATELET COUNT 309 10^3/uL (130-400); WHITE BLOOD COUNT 9.6 10^3/uL (4.3-11.0)
[2021-02-28 01:56] LABS: ALBUMIN 4.2 GM/DL (3.2-4.5); POTASSIUM 3.5 MMOL/L (3.6-5.0)
[2021-02-28 01:58] LABS: TOTAL PROTEIN 7.6 GM/DL (6.4-8.2)
[2021-02-28 02:00] LABS: BILIRUBIN,TOTAL 0.8 MG/DL (0.1-1.0)
[2021-02-28 02:02] LABS: CREATININE SERUM 1.02 MG/DL (0.60-1.30)
[2021-02-28] MEDS ORDERED: METOCLOPRAMIDE INJ 10 MG/2 ML (REGLAN) IVP ONE (02:45)
--- NOTE | 2021-02-28 07:16 | ED Abdominal Pain ---
General Chief Complaint: Abdominal/GI Problems Stated Complaint: ABD PAIN Nursing Triage Note: PT PRESENTS TO ED ROOM 3 C/O PERSISTENT N/V AFTER DECLINING NAUSEA MEDS AND FLUID CHALLENGE FROM THIS ED EARLIER TODAY. STATES SHE KNEW SHE WOULD FAIL THE FLUIDS CHALLENGE SO SHE SIGNED OUT AMA Source of Information: Patient, EMS, Old Records Exam Limitations: No Limitations History of Present Illness Date Seen by Provider: Feb 28, 2021 Time Seen by Provider: 00:06 Initial Comments This 50-year-old woman presents to the emergency room with complaints of right upper quadrant pain and nausea and vomiting for the past couple of days. This is her third visit to the emergency room in approximately 24 hours. She has received 2 prior thorough work-ups. She states treatment at home with antiacid medications and antiemetics has not been effective. She has not been able to keep down her medications due to persistent nausea and vomiting. See notes from prior visits. Allergies and Home Medications Allergies Coded Allergies: lisinopril (Verified Allergy, Mild, COUGH, 11/22/20) montelukast (Verified Allergy, Unknown, UNABLE TO REMEMBER REACTION, ) Uncoded Allergies: METALS (Allergy, Unknown, 07/12/14) Patient Home Medication List Home Medication List Reviewed: Yes Atorvastatin Calcium (Atorvastatin Calcium) 10 Mg Tablet, 10 MG PO HS, (Reported) Entered as Reported by: KAY ARENAS on 12/12/20 1224 Desvenlafaxine Succinate (Desvenlafaxine Succinate ER) 100 Mg Tab.er.24h, 100 MG PO DAILY, (Reported) Entered as Reported by: KAY ARENAS on 12/12/20 1224 Diclofenac Sodium (Diclofenac Sodium) 50 Mg Tablet.dr, 50 MG PO BID, (Reported) Entered as Reported by: KAY ARENAS on 01/10/21 1505 Docusate Sodium (Docusate Sodium) 100 Mg Capsule, 100 MG PO BID, (Reported) Entered as Reported by: KAY ARENAS on 11/22/19 1602 Doxycycline Hyclate (Doxycycline Hyclate) 100 Mg Tablet, 100 MG PO BID Prescribed by: RAKAN VILLAGOMEZ on 02/27/21 0843 Empagliflozin (Jardiance) 10 Mg Tablet, 10 MG PO DAILY, (Reported) Entered as Reported by: KAY ARENAS on 01/10/21 1505 Famotidine (Famotidine) 20 Mg Tablet, 20 MG PO BID, (Reported) Entered as Reported by: KAY ARENAS on 12/12/20 1224 Gabapentin (Gabapentin) 600 Mg Tablet, 600 MG PO TID, (Reported) Entered as Reported by: KAY ARENAS on 02/28/19 1002 Insulin Detemir (Levemir Flextouch) 100 Unit/1 Ml Insuln.pen, 15 UNIT SQ HS, (Reported) Entered as Reported by: KAY ARENAS on 11/22/19 1602 Metoclopramide HCl (Metoclopramide HCl) 10 Mg Tablet, 10 MG PO TID, (Reported) Entered as Reported by: KAY ARENAS on 01/10/21 1505 Mirtazapine (Mirtazapine) 30 Mg Tablet, 30 MG PO HS, (Reported) Entered as Reported by: KAY ARENAS on 12/12/20 1224 Ondansetron (Ondansetron Odt) 4 Mg Tab.rapdis, 4 MG PO Q8H PRN for NAUSEA/VOMITING-1ST LINE, (Reported) Entered as Reported by: KAY ARENAS on 01/10/21 1505 Ondansetron (Ondansetron Odt) 8 Mg Tab.rapdis, 8 MG PO Q6H Prescribed by: RAKAN VILLAGOMEZ on 02/27/21 0843 Pantoprazole Sodium (Pantoprazole Sodium) 40 Mg Tablet.dr, 40 MG PO BID, (Reported) Entered as Reported by: KAY ARENAS on 02/28/19 1013 Pioglitazone HCl (Pioglitazone HCl) 45 Mg Tablet, 45 MG PO DAILY, (Reported) Entered as Reported by: KAY ARENAS on 11/22/19 1602 Promethazine HCl (Promethazine Suppository) 25 Mg Supp.rect, 25 MG RC Q6 Prescribed by: RAKAN VILLAGOMEZ on 02/27/21 0843 Quetiapine Fumarate (Quetiapine Fumarate) 400 Mg Tablet, 400 MG PO HS, (Reported) Entered as Reported by: KAY ARENAS on 12/12/20 1224 Scopolamine (Transderm-Scop) 1 Each Patch.td72, 1 EACH TD Q72H Prescribed by: RAKAN VILLAGOMEZ on 02/27/21 0843 Tizanidine HCl (Tizanidine HCl) 4 Mg Tablet, 4 MG PO TID PRN for MUSCLE SPASMS, (Reported) Entered as Reported by: KAY ARENAS on 12/12/20 1224 Review of Systems Review of Systems Constitutional: no symptoms reported EENTM: No Symptoms Reported Respiratory: No Symptoms Reported Cardiovascular: No Symptoms Reported Gastrointestinal: See HPI Genitourinary: No Symptoms Reported Musculoskeletal: no symptoms reported Skin: no symptoms reported Psychiatric/Neurological: No Symptoms Reported Endocrine: No Symptoms Reported Hematologic/Lymphatic: No Symptoms Reported Past Iazaado-Wdnrip-Jwehqn Hx Patient Social History Tobacco Use?: No Substance use?: No Alcohol Use?: No Immunizations Up To Date Tetanus Booster (TDap): Unknown First/Initial COVID19 Vaccinat: 01/2021 Second COVID19 Vaccination Juan M: 02/19/21 Seasonal Allergies Seasonal Allergies: No Past Medical History Surgery/Hospitalization HX: Denies. 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 Sexually Transmitted Disease: No Genitourinary: Yes Bladder Infection, Kidney Stones, Renal Failure Gastrointestinal: Yes (CHRONIC N/V, gastritis) Gastroesophageal Reflux, Esophagitis, Hiatal Hernia, Irritable Bowel Musculoskeletal: Yes Fibromyalgia Endocrine: Yes (INSULIN + ORAL MEDS--NON COMPLAINT; MORBID OBESITY) Diabetes, Insulin dep HEENT: Yes (EYE SURGERY; POOR DENTITION) Loss of Vision: Denies Hearing Impairment: Denies Cancer: No Psychosocial: Yes (EXTENSIVE PSYCH ISSUES) ADD/ADHD, Sleep Difficulties, Anxiety, PTSD, Depression Integumentary: No Blood Disorders: No Adverse Reaction/Blood Tranf: No Family Medical History Hypertension 19 FATHER CVA, GI Disease, Seizures Physical Exam Vital Signs Vital Signs - First Documented 02/28/21 00:05 Temp 36.9 Pulse 115 Resp 20 B/P (MAP) 150/93 (112) Pulse Ox 96 O2 Delivery Room Air Capillary Refill : Less Than 3 Seconds Height/Weight/BMI Height: 5'3.00" Weight: 240lbs. 2.0oz. 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, no motor/sensory deficits, alert, oriented x 3, other (Mildly agitated) Skin: normal color, warm/dry Progress/Results/Core Measures Results/Orders Lab Results Laboratory Tests Test 02/28/21 00:40 Range/Units White Blood Count 9.6 4.3-11.0 10^3/uL Red Blood Count 4.19 3.80-5.11 10^6/uL Hemoglobin 11.2 L 11.5-16.0 g/dL Hematocrit 35 35-52 % Mean Corpuscular Volume 84 80-99 fL Mean Corpuscular Hemoglobin 27 25-34 pg Mean Corpuscular Hemoglobin Concent 32 32-36 g/dL Red Cell Distribution Width 18.5 H 10.0-14.5 % Platelet Count 309 130-400 10^3/uL Mean Platelet Volume 11.6 9.0-12.2 fL Immature Granulocyte % (Auto) 0 % Neutrophils (%) (Auto) 73 42-75 % Lymphocytes (%) (Auto) 17 12-44 % Monocytes (%) (Auto) 9 0-12 % Eosinophils (%) (Auto) 1 0-10 % Basophils (%) (Auto) 0 0-10 % Neutrophils # (Auto) 7.0 1.8-7.8 10^3/uL Lymphocytes # (Auto) 1.7 1.0-4.0 10^3/uL Monocytes # (Auto) 0.8 0.0-1.0 10^3/uL Eosinophils # (Auto) 0.1 0.0-0.3 10^3/uL Basophils # (Auto) 0.0 0.0-0.1 10^3/uL Immature Granulocyte # (Auto) 0.0 0.0-0.1 10^3/uL Sodium Level 141 135-145 MMOL/L Potassium Level 3.5 L 3.6-5.0 MMOL/L Chloride Level 103 98-107 MMOL/L Carbon Dioxide Level 20 L 21-32 MMOL/L Anion Gap 18 H 5-14 MMOL/L Blood Urea Nitrogen 11 7-18 MG/DL Creatinine 1.02 0.60-1.30 MG/DL Estimat Glomerular Filtration Rate 57 BUN/Creatinine Ratio 11 Glucose Level 156 H 70-105 MG/DL Calcium Level 10.0 8.5-10.1 MG/DL Corrected Calcium 9.8 8.5-10.1 MG/DL Total Bilirubin 0.8 0.1-1.0 MG/DL Aspartate Amino Transf (AST/SGOT) 24 5-34 U/L Alanine Aminotransferase (ALT/SGPT) 29 0-55 U/L Alkaline Phosphatase 45 40-136 U/L C-Reactive Protein High Sensitivity 0.85 H 0.00-0.50 MG/DL Total Protein 7.6 6.4-8.2 GM/DL Albumin 4.2 3.2-4.5 GM/DL My Orders Orders - LENNY BOYKIN MD Promethazine Injection (Phenergan Injec (02/28/21 01:45) Lactated Ringers (Lr 1000 Ml Iv Solution (02/28/21 01:45) Fentanyl Inj (Sublimaze Injection) (02/28/21 01:45) Comprehensive Metabolic Panel (02/28/21 00:40) Hs C Reactive Protein (02/28/21 00:40) Cbc With Automated Diff (02/28/21 00:40) Metoclopramide Injection (Reglan Injecti (02/28/21 02:45) Fentanyl Inj (Sublimaze Injection) (02/28/21 07:15) Medications Given in ED Current Medications Medications Dose Ordered Sig/Kate Route Start Time Stop Time Status Last Admin Dose Admin Fentanyl Citrate 50 mcg ONCE ONCE IVP 02/28/21 01:45 02/28/21 01:46 DC 02/28/21 01:50 50 MCG Metoclopramide HCl 5 mg ONCE ONCE IVP 02/28/21 02:45 02/28/21 02:47 DC 02/28/21 03:05 5 MG Promethazine HCl 25 mg ONCE ONCE IVP 02/28/21 01:45 02/28/21 01:46 DC 02/28/21 01:50 25 MG Vital Signs/I&O 02/28/21 00:05 Temp 36.9 Pulse 115 Resp 20 B/P (MAP) 150/93 (112) Pulse Ox 96 O2 Delivery Room Air Blood Pressure Mean: 112 Progress Progress Note : Progress Note Patient was hydrated and treated with Phenergan and Reglan. Labs were rechecked. Patient has been spitting up some clear saliva-like fluid due to her nausea. Since this is her third visit in approximately 24 hours, admission is sought for further evaluation and bowel rest. Dr. Gill was consulted and admission was accepted by Dr. Cheung. Departure Communication (Admissions) Time/Spoke to Admitting Phy: 07:00 Dr. Cheung Time/Spoke to Consulting Phy: 07:05 Dr. Gill Impression Primary Impression: Right upper quadrant abdominal pain Additional Impression: Nausea & vomiting Qualified Codes: R11.2 - Nausea with vomiting, unspecified Disposition: ADMITTED INPATIENT Condition: Improved Admissions Decision to Admit Reason: Admit from ER (General) Decision to Admit/Date: Feb 28, 2021 Time/Decision to Admit Time: 00:30 Departure-Patient Inst. Referrals: [facility] (PCP) Primary Care Physician ALISON STAPLES (Family) Primary Care Physician LENNY BOYKIN MD Feb 28, 2021 07:16
[2021-02-28 08:56] VITALS: BP 144/83
[2021-02-28] MEDS ORDERED: PROMETHAZINE INJ 25 MG/ML (PHENERGAN) AMP IV PRN (09:45)
[2021-02-28] MEDS ORDERED: fentaNYL INJ 100 MCG/2 ML AMP IV PRN (09:45)
[2021-02-28] MEDS ORDERED: inSUlin ASPART (NovoLOG) 1 UNIT/0.01 ML (CHARGE PER UNIT) SC SCH (10:00)
[2021-02-28] MEDS: LACTATED RINGERS 1,000 ML IV SCH ×2 (10:13→18:00)
[2021-02-28] MEDS: PANTOPRAZOLE 40 MG (PROTONIX) VIAL IV SCH (10:14)
--- NOTE | 2021-02-28 11:56 | Consultation - Surgery ---
KAMILLE DOWELL 02/28/21 1156: History of Present Illness History of Present Illness Patient Consulted On(kristen/time) 02/28/21 11:50 Date Seen by Provider: Feb 28, 2021 Time Seen by Provider: 11:40 Reason for Visit: Nausea and Vomiting History of Present Illness Patient is a 50 y/o female who has presented to the ER 3 times in 24 hours for nausea, vomiting, and abdominal pain. Surgery was consulted for possible gallbladder issues. Patient states her N/V and abdominal pain began about 48 hours ago. The pain is in the RUQ. She reports the pain was constant until medicine from the hospital made it go away. She describes it as an ache. There are no associated symptoms besides N/V. Patient says that medicine helps the pain, nausea, and vomiting. Drinking water makes it worse. Patient reports she has not been able to eat for the last 48-72 hours. Patient denies any radiation of the pain. Patient says the pain was constant from the time it started until it went away with medicine. She rated it as a 5-6/10. CT scan showed no acute abnormalities. The patient reports the same symptoms of N/V will usually occur once a month but this is the first time there has been associated pain. Allergies and Home Medications Allergies Coded Allergies: lisinopril (Verified Allergy, Mild, COUGH, 02/28/21) montelukast (Verified Allergy, Unknown, UNABLE TO REMEMBER REACTION, 02/28/21) Uncoded Allergies: METALS (Allergy, Unknown, 07/12/14) Patient Home Medication List Atorvastatin Calcium (Atorvastatin Calcium) 10 Mg Tablet, 10 MG PO HS, (Reported) Entered as Reported by: KAY ARENAS on 12/12/20 1224 Desvenlafaxine Succinate (Desvenlafaxine Succinate ER) 100 Mg Tab.er.24h, 100 MG PO DAILY, (Reported) Entered as Reported by: KAY ARENAS on 12/12/20 1224 Diclofenac Sodium (Diclofenac Sodium) 50 Mg Tablet.dr, 50 MG PO BID, (Reported) Entered as Reported by: KAY ARENAS on 01/10/21 1505 Docusate Sodium (Docusate Sodium) 100 Mg Capsule, 100 MG PO BID, (Reported) Entered as Reported by: KAY ARENAS on 11/22/19 1602 Doxycycline Hyclate (Doxycycline Hyclate) 100 Mg Tablet, 100 MG PO BID Prescribed by: RAKAN VILLAGOMEZ on 02/27/21 0843 Empagliflozin (Jardiance) 10 Mg Tablet, 10 MG PO DAILY, (Reported) Entered as Reported by: KAY ARENAS on 01/10/21 1505 Famotidine (Famotidine) 20 Mg Tablet, 20 MG PO BID, (Reported) Entered as Reported by: KAY ARENAS on 12/12/20 1224 Gabapentin (Gabapentin) 600 Mg Tablet, 600 MG PO TID, (Reported) Entered as Reported by: KAY ARENAS on 02/28/19 1002 Insulin Detemir (Levemir Flextouch) 100 Unit/1 Ml Insuln.pen, 15 UNIT SQ HS, (Reported) Entered as Reported by: KAY ARENAS on 11/22/19 1602 Metoclopramide HCl (Metoclopramide HCl) 10 Mg Tablet, 10 MG PO TID, (Reported) Entered as Reported by: KAY ARENAS on 01/10/21 1505 Mirtazapine (Mirtazapine) 30 Mg Tablet, 30 MG PO HS, (Reported) Entered as Reported by: KAY ARENAS on 12/12/20 1224 Ondansetron (Ondansetron Odt) 4 Mg Tab.rapdis, 4 MG PO Q8H PRN for NAUSEA/VOMITING-1ST LINE, (Reported) Entered as Reported by: KAY ARENAS on 01/10/21 1505 Ondansetron (Ondansetron Odt) 8 Mg Tab.rapdis, 8 MG PO Q6H Prescribed by: RAKAN VILLAGOMEZ on 02/27/21 0843 Pantoprazole Sodium (Pantoprazole Sodium) 40 Mg Tablet.dr, 40 MG PO BID, (Reported) Entered as Reported by: KAY ARENAS on 02/28/19 1013 Pioglitazone HCl (Pioglitazone HCl) 45 Mg Tablet, 45 MG PO DAILY, (Reported) Entered as Reported by: KAY ARENAS on 11/22/19 1602 Promethazine HCl (Promethazine Suppository) 25 Mg Supp.rect, 25 MG RC Q6 Prescribed by: RAKAN VILLAGOMEZ on 02/27/21 0843 Quetiapine Fumarate (Quetiapine Fumarate) 400 Mg Tablet, 400 MG PO HS, (Reported) Entered as Reported by: KAY ARENAS on 12/12/20 1224 Scopolamine (Transderm-Scop) 1 Each Patch.td72, 1 EACH TD Q72H Prescribed by: RAKAN VILLAGOMEZ on 02/27/21 0843 Tizanidine HCl (Tizanidine HCl) 4 Mg Tablet, 4 MG PO TID PRN for MUSCLE SPASMS, (Reported) Entered as Reported by: KAY ARENAS on 12/12/20 1224 Past Rmsthjp-Wjzlyq-Aibmfk Hx Patient Social History Smoking Status: Never a Smoker Type Used: Electronic/Vapor 2nd Hand Smoke Exposure: No Recent Hopitalizations: No Alcohol Use?: No Have you traveled recently?: No Immunizations Up To Date Tetanus Booster (TDap): Unknown Seasonal Allergies Seasonal Allergies: No Surgeries History of Surgeries: Yes (D&C; RIGHT KNEE SCOPE X 2; EGD; CARDIAC CATH 2012--NO INTERVENTION) Surgeries: Cardiac, Eye Surgery, Orthopedic Respiratory History of Respiratory Disorde: Yes (COVID-19 PNEUMONIA 01/2021, chronic hypoxia) Respiratory Disorders: Asthma, Pneumonia Cardiovascular History of Cardiac Disorders: Yes (CARDIAC CATH 2012--NORMAL CORONARIES, NO INTERVENTION) Cardiac Disorders: Coronary Artery Disease, High Cholesterol, Hypertension Neurological History of Neurological Disord: Yes Neurological Disorders: Headaches /Migraines 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 System Hx 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 Disorders: No Sexually Transmitted Disease: No Female 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 Disorders: Denies 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 Genitourinary History of Genitourinary Disor: Yes Genitourinary Disorders: Bladder Infection, Kidney Stones, Renal Failure Gastrointestinal History of Gastrointestinal Di: Yes (CHRONIC N/V, gastritis) Gastrointestinal Disorders: Gastroesophageal Reflux, Esophagitis, Hiatal Hernia, Irritable Bowel Musculoskeletal History of Musculoskeletal Dis: Yes Musculoskeletal Disorders: Fibromyalgia Endocrine History of Endocrine Disorders: Yes (INSULIN + ORAL MEDS--NON COMPLAINT; MORBID OBESITY) Endocrine Disorders: Diabetes, Insulin dep HEENT History of HEENT Disorders: Yes (EYE SURGERY; POOR DENTITION) Loss of Vision: Denies Hearing Impairment: Denies Cancer History of Cancer: No Psychosocial History of Psychiatric Problem: Yes (EXTENSIVE PSYCH ISSUES) Behavioral Health Disorders: ADD/ADHD, Sleep Difficulties, Anxiety, PTSD, Depression Integumentary History of Skin or Integumenta: No Blood Transfusions History of Blood Disorders: No Adverse Reaction to a Blood Tr: No Family Medical History Significant Family History: No Pertinent Family Hx (Patient denied a family history of medical problems in her mother, father, brother, 2 sisters, and children when I spoke with her.) Family Medial History: Hypertension 19 FATHER Review of Systems-General Constitutional: No chills, No fever EENTM: No blurred vision, No vision loss Respiratory: No cough, No short of breath Cardiovascular: No chest pain, No palpitations Gastrointestinal: RUQ (Reports the pain was present when she was in the ED but gone with medicine); No constipation; nausea, vomiting Genitourinary: No dysuria, No frequency Musculoskeletal: No joint pain, No muscle pain Psychiatric/Neurological: Anxiety, Depressed; Denies Headache Physical Exam-General Problems Physical Exam Vital Signs Vital Signs - First Documented 02/28/21 00:05 Temp 36.9 Pulse 115 Resp 20 B/P (MAP) 150/93 (112) Pulse Ox 96 O2 Delivery Room Air Capillary Refill : Less Than 3 Seconds General Appearance: no apparent distress, obese Eyes: Bilateral Eye PERRL, Bilateral Eye EOMI Neck: non-tender Respiratory: chest non-tender, lungs clear, normal breath sounds, no respiratory distress, no accessory muscle use Cardiovascular: normal peripheral pulses, regular rate, rhythm, no murmur Peripheral Pulses: 2+ Radial Pulses (R), 2+ Radial Pulses (L) Gastrointestinal: normal bowel sounds, non tender, soft; No distended Extremities: non-tender, no calf tenderness, normal capillary refill 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, no motor/sensory deficits, alert, normal mood/affect, oriented x 3 Skin: normal color, warm/dry Lymphatic: no adenopathy (head and neck) Data Review Labs Laboratory Tests 02/28/21 00:40: White Blood Count 9.6, Red Blood Count 4.19, Hemoglobin 11.2L, Hematocrit 35, Mean Corpuscular Volume 84, Mean Corpuscular Hemoglobin 27, Mean Corpuscular Hemoglobin Concent 32, Red Cell Distribution Width 18.5H, Platelet Count 309, Mean Platelet Volume 11.6, Immature Granulocyte % (Auto) 0, Neutrophils (%) (Auto) 73, Lymphocytes (%) (Auto) 17, Monocytes (%) (Auto) 9, Eosinophils (%) (Auto) 1, Basophils (%) (Auto) 0, Neutrophils # (Auto) 7.0, Lymphocytes # (Auto) 1.7, Monocytes # (Auto) 0.8, Eosinophils # (Auto) 0.1, Basophils # (Auto) 0.0, Immature Granulocyte # (Auto) 0.0, Sodium Level 141, Potassium Level 3.5L, Chloride Level 103, Carbon Dioxide Level 20L, Anion Gap 18H, Blood Urea Nitrogen 11, Creatinine 1.02, Estimat Glomerular Filtration Rate 57, BUN/Creatinine Ratio 11, Glucose Level 156H, Calcium Level 10.0, Corrected Calcium 9.8, Total Bilir ubin 0.8, Aspartate Amino Transf (AST/SGOT) 24, Alanine Aminotransferase (ALT/SGPT) 29, Alkaline Phosphatase 45, C-Reactive Protein High Sensitivity 0.85H, Total Protein 7.6, Albumin 4.2 02/28/21 11:38: Glucometer 154H Assessment/Plan Assessment/Plan Assessment/Plan 1. Acute cholecystitis 2. Nonspecific N/V 3. Diabetes (uncontrolled) 1. CT scan showed no acute gallbladder changes. U/S showed no changes. Consider HIDA scan to assess gallbladder function. Continue to control pain, nausea, and vomiting with medication. Encourage ambulation as tolerated. KALEY EL DO 02/28/21 1427: History of Present Illness History of Present Illness Time Seen by Provider: 11:26 History of Present Illness Surgery asked to consult regarding abdominal pain and intractable N/V. HPI per ED: PT PRESENTS TO ED ROOM 3 C/O PERSISTENT N/V AFTER DECLINING NAUSEA MEDS AND FLUID CHALLENGE FROM THIS ED EARLIER TODAY. STATES SHE KNEW SHE WOULD FAIL THE FLUIDS CHALLENGE SO SHE SIGNED OUT AMA This 50-year-old woman presents to the emergency room with complaints of right upper quadrant pain and nausea and vomiting for the past couple of days. This is her third visit to the emergency room in approximately 24 hours. She has received 2 prior thorough work-ups. She states treatment at home with antiacid medications and antiemetics has not been effective. She has not been able to keep down her medications due to persistent nausea and vomiting. See notes from prior visits. When I saw pt she states she had no abd pain and no nausea; "I was actually about to go to sleep". States she can't eat when she is having pain. Not sure if eating causes pain. She denies ever having a HIDA scan. Allergies and Home Medications Allergies Coded Allergies: lisinopril (Verified Allergy, Mild, COUGH, 02/28/21) montelukast (Verified Allergy, Unknown, UNABLE TO REMEMBER REACTION, 02/28/21) Uncoded Allergies: METALS (Allergy, Unknown, 07/12/14) Patient Home Medication List Home Medication List Reviewed: Yes Atorvastatin Calcium (Atorvastatin Calcium) 10 Mg Tablet, 10 MG PO HS, (Reported) Entered as Reported by: KAY ARENAS on 12/12/20 1224 Desvenlafaxine Succinate (Desvenlafaxine Succinate ER) 100 Mg Tab.er.24h, 100 MG PO DAILY, (Reported) Entered as Reported by: KAY ARENAS on 12/12/20 1224 Diclofenac Sodium (Diclofenac Sodium) 50 Mg Tablet.dr, 50 MG PO BID, (Reported) Entered as Reported by: KAY ARENAS on 01/10/21 1505 Docusate Sodium (Docusate Sodium) 100 Mg Capsule, 100 MG PO BID, (Reported) Entered as Reported by: KAY ARENAS on 11/22/19 1602 Doxycycline Hyclate (Doxycycline Hyclate) 100 Mg Tablet, 100 MG PO BID Prescribed by: RAKAN VILLAGOMEZ on 02/27/21 0843 Empagliflozin (Jardiance) 10 Mg Tablet, 10 MG PO DAILY, (Reported) Entered as Reported by: KAY ARENAS on 01/10/21 1505 Famotidine (Famotidine) 20 Mg Tablet, 20 MG PO BID, (Reported) Entered as Reported by: KAY ARENAS on 12/12/20 1224 Gabapentin (Gabapentin) 600 Mg Tablet, 600 MG PO TID, (Reported) Entered as Reported by: KAY ARENAS on 02/28/19 1002 Insulin Detemir (Levemir Flextouch) 100 Unit/1 Ml Insuln.pen, 15 UNIT SQ HS, (Reported) Entered as Reported by: KAY ARENAS on 11/22/19 1602 Metoclopramide HCl (Metoclopramide HCl) 10 Mg Tablet, 10 MG PO TID, (Reported) Entered as Reported by: KAY ARENAS on 01/10/21 1505 Mirtazapine (Mirtazapine) 30 Mg Tablet, 30 MG PO HS, (Reported) Entered as Reported by: KAY ARENAS on 12/12/20 1224 Ondansetron (Ondansetron Odt) 4 Mg Tab.rapdis, 4 MG PO Q8H PRN for NAUSEA/VOMITING-1ST LINE, (Reported) Entered as Reported by: KAY ARENAS on 01/10/21 1505 Ondansetron (Ondansetron Odt) 8 Mg Tab.rapdis, 8 MG PO Q6H Prescribed by: RAKAN VILLAGOMEZ on 02/27/21 0843 Pantoprazole Sodium (Pantoprazole Sodium) 40 Mg Tablet.dr, 40 MG PO BID, (Reported) Entered as Reported by: KAY ARENAS on 02/28/19 1013 Pioglitazone HCl (Pioglitazone HCl) 45 Mg Tablet, 45 MG PO DAILY, (Reported) Entered as Reported by: KAY ARENAS on 11/22/19 1602 Promethazine HCl (Promethazine Suppository) 25 Mg Supp.rect, 25 MG RC Q6 Prescribed by: RAKAN VILLAGOMEZ on 02/27/21 0843 Quetiapine Fumarate (Quetiapine Fumarate) 400 Mg Tablet, 400 MG PO HS, (Reporte d) Entered as Reported by: KAY ARENAS on 12/12/20 1224 Scopolamine (Transderm-Scop) 1 Each Patch.td72, 1 EACH TD Q72H Prescribed by: RAKAN VILLAGOMEZ on 02/27/21 0843 Tizanidine HCl (Tizanidine HCl) 4 Mg Tablet, 4 MG PO TID PRN for MUSCLE SPASMS, (Reported) Entered as Reported by: KAY ARENAS on 12/12/20 1224 Past Eqoxbxn-Cbukyj-Syyzqa Hx Patient Social History Smoking Status: Never a Smoker Alcohol Use?: No Surgeries History of Surgeries: Yes (EGD) Surgeries: Eye Surgery, Orthopedic (knee sx x 2) Respiratory History of Respiratory Disorde: Yes Respiratory Disorders: Asthma, Pneumonia Cardiovascular History of Cardiac Disorders: Yes Cardiac Disorders: Coronary Artery Disease, High Cholesterol, Hypertension Neurological History of Neurological Disord: Yes Neurological Disorders: Headaches /Migraines 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 System : No Genitourinary History of Genitourinary Disor: Yes Genitourinary Disorders: Kidney Infection, Kidney Stones, Renal Failure Gastrointestinal History of Gastrointestinal Di: Yes Gastrointestinal Disorders: Gastroesophageal Reflux, Hiatal Hernia, Ulcer Musculoskeletal History of Musculoskeletal Dis: Yes Musculoskeletal Disorders: Fibromyalgia Endocrine History of Endocrine Disorders: Yes Endocrine Disorders: Diabetes, Insulin dep HEENT History of HEENT Disorders: Yes Cancer History of Cancer: No Psychosocial History of Psychiatric Problem: Yes Behavioral Health Disorders: ADD/ADHD, Sleep Difficulties, Anxiety, Depression Family Medical History Significant Family History: Hypertension Family Medial History: Hypertension 19 FATHER Review of Systems-General Constitutional: No chills, No fever EENTM: No blurred vision, No vision loss Respiratory: No cough, No short of breath Cardiovascular: No chest pain, No palpitations Gastrointestinal: RUQ (Reports the pain was present when she was in the ED but gone with medicine); No constipation; nausea, vomiting Genitourinary: No dysuria, No frequency Musculoskeletal: No joint pain; muscle pain, muscle stiffness, muscle cramps Skin: No change in color, No change in hair/nails Psychiatric/Neurological: Anxiety, Depressed, Headache; Denies Seizure, Denies Tremors Physical Exam-General Problems Physical Exam General Appearance: no apparent distress, obese Eyes: Bilateral Eye PERRL, Bilateral Eye EOMI HEENT: pharynx normal; No scleral icterus (R), No scleral icterus (L) Neck: non-tender, supple Respiratory: chest non-tender, lungs clear, normal breath sounds, no respiratory distress, no accessory muscle use Cardiovascular: normal peripheral pulses, regular rate, rhythm, no murmur Gastrointestinal: normal bowel sounds, non tender, soft; No distended Back: no CVA tenderness, no vertebral tenderness Extremities: non-tender, no calf tenderness, normal capillary refill 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 Auto Exposure Controls were utilized during the CT exam to meet ALARA standards for radiation dose reduction. All CT scans use one or more of the following dose optimizing techniques: automated exposure control, MA and/or KvP adjustment based on patient size and exam type or iterative reconstruction. Comparison made to the prior study of 08/18/2020. The visualized portions of the lung bases show bibasilar atelectatic changes. There is no pleural fluid. There is no free intraperitoneal air. The liver shows mild diffuse low-density change compatible with fatty infiltration. Gallbladder appears unremarkable. The spleen and adrenals and pancreas appear normal. The kidneys bilaterally show some cortical scarring but no hydronephrosis or mass. There is no retroperitoneal mass or adenopathy. There is no ascites. Visualized bowel loops show no sign of obstruction or focal bowel wall thickening. There is no pelvic mass or lymphadenopathy. IMPRESSION: There is bibasilar atelectasis. There is fatty change in the liver. There is no sign of bowel obstruction or focal bowel wall thickening. There is cortical scarring of both kidneys. No acute abnormality is detected. Dictated by: Dictated on workstation # [id number] Dict: 02/[id number]/[id number] Trans: 02/27/[id number] BRAD [id number] Interpreted by: GEGE SERRANO MD Electronically signed by: GEGE SERRANO MD 02/27/[id number] Assessment/Plan Assessment/Plan Assessment/Plan 1. Abdominal pain - mainly RUQ 2. Intractable N/V -stated nothing helped, but the IV anti-emetics she got once admitted apparently have taken care of everything 3. Diabetes (uncontrolled) 1. CT scan showed no acute gallbladder changes. U/S showed no changes. Consider HIDA scan to assess gallbladder function. Continue to control pain, nausea, and vomiting with medication. Encourage ambulation as tolerated. Pt may also need a Gastric emptying study, could be Gastroparesis causing all her problems. Supervisory-Addendum Brief Verification & Attestation Participated in pt care: history, MDM, physical Personally performed: exam, history, MDM, supervision of care Care discussed with: Medical Student Procedures: n/a Verification and Attestation of Medical Student E/M Service A medical student performed and documented this service. I then reviewed and verified all information documented by the medical student and made modifications to such information, when appropriate. I personally performed a physical exam, medical decision making and then discussed any differences between the notes and made revisions as necessary to create one note. Kaley El , 02/28/21 , 14:35 KAMILLE DOWELL Feb 28, 2021 11:56 KALEY EL DO Feb 28, 2021 14:27
[2021-02-28 12:00] VITALS: BP 138/92
[2021-02-28] MEDS ORDERED: SCOPOLAMINE 1.5 MG (TRANSDERM-SCOP) PATCH TD ONE (12:00)
[2021-02-28] MEDS ORDERED: ONDANSETRON 4 MG/2 ML (SDV) Z0FRAN IVP PRN (12:00)
--- NOTE | 2021-02-28 14:06 | History & Physical-Hospitalist ---
ARABELLA COLLIER 02/28/21 1406: History of Present Illness HPI/Chief Complaint Christie Ca is a 50yo female with a past medical history of COVID-19, CAD, HLD, HTN, migraines, GERD, and fibromyalgia who was admitted 02/28 for unrelenting nausea, vomiting and abdominal pain. Christie reports onset of nausea and vomiting on 02/25. Reports "episodes" of this monthly for year, sometimes leading to hospital admission. She had an EGD and colonoscopy in 2018 or 2019 which was unremarkable. Her last admission for this issue was December 12. At that time, Dr. 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 An outpatient appointment with GI was set but the patient was unable to attend. Her current episode initially began as they always do, with numerous episodes of vomiting that are too many to count. However, on 02/27 patient began to experience significant abdominal pain that was unlike her previous admissions. She subsequently went to the ER at [facility] two times - each time being recommended to try a fluid challenge and take anti-emetics. Patient refused and returned home after both admissions. However, she returned to the ER for a third time as the pain was too much too bare. She was finally admitted to inpatient service 02/28. Admission labs from all three visits were all largely negative. CT of the abdomen was negative for acute findings. CBC, CMP, HCG, Amylase, Lipase, LFTs, UA, UDS, BNP all were unremakable. CRP was elevated at 0.85. Anion gap 18. Today patient reports persistent abdominal pain, nausea, and vomiting. Per chart review providers have not seen her vomit, but patient reports vomiting numerous times on admission. She is very anxious and distressed by her symptoms. She reports not tolerating oral fluid and pill intake. Denies fevers, chills, SOB. Denies diarrhea, constipation. Denies chest pain, palpitations. Date Seen 02/28/21 Time Seen by a Provider: 09:45 Attending Physician Aye Phillip DO [facility] Date of Admission Feb 28, 2021 at 07:13 Home Medications & Allergies Home Medications Reviewed patient Home Medication Reconciliation performed by pharmacy medication reconciliations lubrication technician and/or nursing. Patients Allergies have been reviewed. Allergies Allergies Coded Allergies lisinopril (Verified Allergy, Mild, COUGH, 02/28/21) montelukast (Verified Allergy, Unknown, UNABLE TO REMEMBER REACTION, 02/28/21) Uncoded Allergies METALS ( Allergy, Unknown, 07/12/14) Past Zhhzkfz-Xuzups-Oqiuvi Hx Patient Social History Tobacco Use?: No Smoking Status: Never a Smoker Substance use?: No Alcohol Use?: No Immunizations Up To Date First/Initial COVID19 Vaccinat: 01/2021 Second COVID19 Vaccination Juan M: 02/19/21 Tetanus Booster (TDap): Unknown Hepatitis A: No Hepatitis B: No Seasonal Allergies Seasonal Allergies: No Current Status status: No Advance Directives: No Primary Language: Kinyarwanda Preferred Spoken Language: Kinyarwanda Past Medical History Surgeries: Cardiac, Eye Surgery, Orthopedic Asthma, Pneumonia Currently Using CPAP: No Currently Using BIPAP: No Coronary Artery Disease, High Cholesterol, Hypertension Headaches /Migraines 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 Sexually Transmitted Disease: No Bladder Infection, Kidney Stones, Renal Failure Gastroesophageal Reflux, Esophagitis, Hiatal Hernia, Irritable Bowel Fibromyalgia Diabetes, Insulin dep Loss of Vision: Denies Hearing Impairment: Denies ADD/ADHD, Sleep Difficulties, Anxiety, PTSD, Depression Blood Disorders: No Adverse Reaction/Blood Tranf: No Chronic abdominal pain IDDM HTN Anxiety Depression Family Medical History Hypertension 19 FATHER No Pertinent Family Hx Physical Exam Physical Exam Vital Signs Vital Signs - First Documented 02/28/21 00:05 Temp 36.9 Pulse 115 Resp 20 B/P (MAP) 150/93 (112) Pulse Ox 96 O2 Delivery Room Air Capillary Refill : Less Than 3 Seconds Height, Weight, BMI Height: 5'3.00" Weight: 240lbs. 2.0oz. [id number]; 47.00 BMI Method:Stated General Appearance: Anxious, Mild Distress Respiratory: Chest Non Tender, Lungs Clear, Normal Breath Sounds, No Accessory Muscle Use, No Respiratory Distress Cardiovascular: Regular Rate, Rhythm, No Edema, No Gallop, No Murmur, Normal Peripheral Pulses Gastrointestinal: Normal Bowel Sounds, Non Tender Extremity: Normal Capillary Refill Neurologic/Psychiatric: Alert, Oriented x3 Skin: Normal Color, Warm/Dry Results Results/Procedures Labs Laboratory Tests 02/28/21 00:40 Patient resulted labs reviewed. Assessment/Plan Admission Diagnosis Persistent nausea, vomiting, abdominal pain Assessment and Plan Christie Ca is a 50yo female with a past medical history of COVID-19, CAD, HLD, HTN, migraines, GERD, and fibromyalgia who was admitted 02/28 for unrelenting nausea, vomiting and abdominal pain Current problems are the following Abdominal pain Persistent nausea, vomiting DDX: Gastroparesis, cholecystitis, psychogenic (somatic symptom disorder) -Recurrent episodes monthly with multiple admission -Long history of diabetes and obesity. -02/27: CT abdomen negative for acute findings -02/27:02/28: Labs wnl except for CRP 0.85, Anion Gap 18 Plan -Surgery consulted. Appreciate recommendations -Continue to encourage fluid intake -Continue antiemetics - scopolamine, zofran, promeclazine -Continue PPI -Continue fentanyl for pain relief. Diabetes -Insulin sliding scale PHILLIPAYE DO 03/01/21 0542: History of Present Illness HPI/Chief Complaint Chief complaint: Recurrent hyperemesis History of present illness: This is a 50-year-old white female known to me from multiple hospital stays all for recurrent nausea and vomiting and recovered from COVID-19 recently who presented to the ER with complaints of nausea and vomiting. This is happening so often the I recommend placement of a PEG tube by surgery. She reports constant nausea and vomiting but remains BMI of 47. Source: patient Exam Limitations: no limitations Past Pwsvrjy-Ujutgu-Elwzpi Hx Patient Social History Marrital Status: single Employed/Student: unemployed Family Medical History Hypertension 19 FATHER Review of Systems Constitutional: see HPI Gastrointestinal: loss of appetite, nausea, vomiting Physical Exam Physical Exam General Appearance: No Apparent Distress, Anxious, Chronically ill, Obese Eyes: Right Eye Normal Inspection, Right Eye PERRL HEENT: PERRL/EOMI, Normal ENT Inspection, Pharynx Normal, Moist Mucous Membranes Neck: Full Range of Motion, Normal Inspection, Non Tender Respiratory: Chest Non Tender, Lungs Clear, Normal Breath Sounds, No Accessory Muscle Use, No Respiratory Distress Cardiovascular: Regular Rate, Rhythm, No Edema, No Gallop, No JVD, No Murmur, Normal Peripheral Pulses Gastrointestinal: Normal Bowel Sounds, No Organomegaly, No Pulsatile Mass, Non Tender, Soft Back: Normal Inspection, No CVA Tenderness, No Vertebral Tenderness Extremity: Normal Capillary Refill, Normal Inspection, Normal Range of Motion, Non Tender, No Calf Tenderness, No Pedal Edema Neurologic/Psychiatric: Alert, Oriented x3, No Motor/Sensory Deficits, Normal Mood/Affect Skin: Normal Color, Warm/Dry Lymphatic: No Adenopathy Assessment/Plan Admission Diagnosis Assessment: Hyperemesis recurrent in type may need PEG tube Morbid obesity Recent COVID-19 Hypertension Plan: Dr. Gill consult IV meds IV fluids Admission Status: Inpatient Order (span 2 midnights) Reason for Inpatient Admission: Hyperemesis Supervisory-Addendum Brief Verification & Attestation Participated in pt care: history, MDM, physical Personally performed: exam, history, MDM, supervision of care Care discussed with: Medical Student Procedures: n/a Results interpretation: Verified all documentation Verification and Attestation of Medical Student E/M Service A medical student performed and documented this service in my presence. I reviewed and verified all information documented by the medical student and made modifications to such information, when appropriate. I personally performed the physical exam and medical decision making. Aye Phillip, Mar 01, 2021,05:42 ARABELLA COLLIER Feb 28, 2021 14:06 AYE PHILLIP DO Mar 01, 2021 05:42
[2021-02-28 16:36] VITALS: BP 138/75
[2021-02-28] MEDS ORDERED: SCOP1PAT11 TD ×2 (16:37)
[2021-02-28] MEDS ORDERED: ONDA8TAB13 PO ×2 (16:37)
[2021-02-28] MEDS ORDERED: SPIR25TA5 PO ×2 (16:37)
[2021-02-28] MEDS ORDERED: PROM25SU44 RC ×2 (16:37)
[2021-02-28] MEDS ORDERED: DOXY100T2 PO ×2 (16:37)
[2021-02-28] MEDS ORDERED: PROP60TA17 PO ×2 (16:37)
[2021-02-28 19:20] VITALS: BP 147/81
[2021-02-28] MEDS: inSUlin ASPART (NovoLOG) 1 UNIT/0.01 ML (CHARGE PER UNIT) SC SCH (20:06)
[2021-02-28] MEDS ORDERED: PROMETHAZINE 25 MG (PHENERGAN) SUPP PR PRN (22:00)
[2021-02-28] MEDS ORDERED: ONDANSETRON 4 MG (ZOFRAN) ORAL DISSOLVE TAB PO PRN (22:00)
[2021-03-01] VITALS: BP 144/85
[2021-03-01] MEDS: LACTATED RINGERS 1,000 ML IV SCH ×3 (02:01→16:28)
[2021-03-01 04:14] VITALS: BP 147/90
[2021-03-01] MEDS: inSUlin ASPART (NovoLOG) 1 UNIT/0.01 ML (CHARGE PER UNIT) SC SCH ×4 (06:05→20:17)
[2021-03-01] MEDS: PIOGLITAZONE 30MG (ACTOS) TAB PO SCH (06:15)
[2021-03-01] MEDS: VENlafaxine XR 75 MG (EFFEXOR XR) CAP PO SCH (06:15)
[2021-03-01 07:58] LABS: ALBUMIN 3.5 GM/DL (3.2-4.5); POTASSIUM 3.6 MMOL/L (3.6-5.0)
[2021-03-01 07:59] LABS: CALCIUM 8.8 MG/DL (8.5-10.1)
[2021-03-01 08:00] LABS: TOTAL PROTEIN 6.3 GM/DL (6.4-8.2)
[2021-03-01 08:02] LABS: BILIRUBIN,TOTAL 0.7 MG/DL (0.1-1.0)
[2021-03-01 08:04] VITALS: BP 177/90
[2021-03-01 08:04] LABS: CREATININE SERUM 0.81 MG/DL (0.60-1.30)
[2021-03-01 08:18] LABS: BASOPHILS # (AUTO) 0.1 10^3/uL (0.0-0.1); BASOPHILS % (AUTO) 1 % (0-10); EOSINOPHILS # (AUTO) 0.3 10^3/uL (0.0-0.3); EOSINOPHILS % (AUTO) 3 % (0-10); HEMATOCRIT 37 % (35-52); HEMOGLOBIN 11.3 g/dL (11.5-16.0); LYMPHOCYTES # (AUTO) 1.9 10^3/uL (1.0-4.0); LYMPHOCYTES % (AUTO) 23 % (12-44); MEAN CORPUSCULAR HEMOGLOBIN 27 pg (25-34); MEAN CORPUSCULAR HGB CONC 31 g/dL (32-36); MEAN CORPUSCULAR VOLUME 86 fL (80-99); MEAN PLATELET VOLUME 10.4 fL (9.0-12.2); MONOCYTES # (AUTO) 0.6 10^3/uL (0.0-1.0); MONOCYTES % (AUTO) 8 % (0-12); NEUTROPHILS # (AUTO) 5.2 10^3/uL (1.8-7.8); NEUTROPHILS % (AUTO) 65 % (42-75); PLATELET COUNT 256 10^3/uL (130-400)
[2021-03-01] MEDS: PROPRANOLOL 20 MG (INDERAL) TABLET PO SCH ×2 (08:39→21:45)
[2021-03-01] MEDS: GABAPENTIN 600 MG (NEURONTIN) TAB PO SCH ×3 (08:39→21:45)
[2021-03-01] MEDS: SPIRONOLACTONE 25 MG (ALDACTONE) TAB PO SCH (08:39)
[2021-03-01] MEDS: ETODOLAC 200 MG (LODINE) CAP PO SCH ×2 (08:39→21:45)
[2021-03-01] MEDS: FAMOTIDINE 20 MG (PEPCID) TABLET PO SCH ×2 (08:40→21:45)
[2021-03-01] MEDS: DOCUSATE SODIUM 100 MG (COLACE) CAP PO SCH ×2 (08:40→21:44)
[2021-03-01] MEDS: PANTOPRAZOLE 40 MG (PROTONIX) VIAL IV SCH (08:40)
[2021-03-01] MEDS ORDERED: NON-FORMULARY MEDICATION 1 EA EA (Empagliflozin (Jardiance) 10 MG) PO SCH (09:00)
--- NOTE | 2021-03-01 09:52 | Progress Note - Surgery ---
KAMILLE DOWELL 03/01/21 0951: Subjective Date Seen by a Provider: Mar 01, 2021 Time Seen by a Provider: 08:40 Subjective/Events-last exam Patient reports her abdominal pain has completely gone away today. Patient denies all abdominal pain with palpation. Patient does report palpation causes increased nausea. Patient endorses continued nausea but denies vomiting. She says she can drink small sips of fluids but it causes her increased nausea. Patient seemed to have trouble answering questions due to nausea at times. Review of Systems General: No Chills, No Fatigue HEENT: Head Aches; No Visual Changes Pulmonary: No Dyspnea, No Cough Cardiovascular: No: Chest Pain, Palpitations Gastrointestinal: Nausea; No: Vomiting, Abdominal Pain Genitourinary: No Dysuria, No Frequency Musculoskeletal: other (knee pain), shoulder pain Neurological: No: Weakness, Confusion Focused Exam Respiratory: Chest Non Tender, Lungs Clear, Normal Breath Sounds, No Accessory Muscle Use, No Respiratory Distress Cardiovascular: No Murmur, Normal Peripheral Pulses, Tachycardia Capillary Refill: Less Than 3 Seconds Peripheral Pulses: 2+ Radial Pulses (R), 2+ Radial Pulses (L) Skin: normal color, warm/dry Objective Exam Vital Signs Date Time Temp Pulse Resp B/P (MAP) Pulse Ox O2 Delivery O2 Flow Rate FiO2 03/01/21 08:04 36.7 109 20 177/90 (119) 94 Room Air 03/01/21 04:14 36.3 102 18 147/90 (109) 94 Room Air 03/01/21 00:00 36.2 98 19 144/85 (104) 97 Room Air 02/28/21 20:00 Room Air 02/28/21 19:20 37.4 108 20 147/81 (103) 97 Room Air 02/28/21 18:25 97 Room Air 02/28/21 16:36 36.6 107 20 138/75 (96) 96 Room Air 02/28/21 12:00 37.0 120 19 138/92 (107) 96 Room Air 02/28/21 12:00 96 Room Air I & O 03/01/21 07:00 Intake Total 0 ml Output Total 1150 ml Balance -1150 ml Capillary Refill : Less Than 3 Seconds General Appearance: Anxious, Mild Distress (Nausea caused issues with answering questions), Obese HEENT: PERRL/EOMI Neck: Normal Inspection, Non Tender Respiratory: Chest Non Tender, Lungs Clear, Normal Breath Sounds, No Accessory Muscle Use, No Respiratory Distress Cardiovascular: No Edema, No Murmur, Normal Peripheral Pulses, Tachycardia Peripheral Pulses: 2+ Radial Pulses (R), 2+ Radial Pulses (L) Gastrointestinal: normal bowel sounds, non tender, soft; No distended Extremity: Normal Capillary Refill, Non Tender, No Calf Tenderness, No Pedal Edema Neurologic/Psychiatric: Alert, Oriented x3, No Motor/Sensory Deficits, Normal 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, 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 as Tested Skin: Normal Color, Warm/Dry Lymphatic: No Adenopathy (head and neck) Results Lab Laboratory Tests 02/28/21 11:38: Glucometer 154H 02/28/21 17:29: Glucometer 110 02/28/21 20:05: Glucometer 98 03/01/21 05:35: Glucometer 146H 03/01/21 07:41: Sodium Level 137, Potassium Level 3.6, Chloride Level 104, Carbon Dioxide Level 20L, Anion Gap 13, Blood Urea Nitrogen 6L, Creatinine 0.81, Estimat Glomerular Filtration Rate 74, BUN/Creatinine Ratio 7, Glucose Level 138H, Calcium Level 8.8, Corrected Calcium 9.2, Total Bilirubin 0.7, Aspartate Amino Transf (AST/SGOT) 20, Alanine Aminotransferase (ALT/SGPT) 19, Alkaline Phosphatase 39L, Total Protein 6.3L, Albumin 3.5 03/01/21 08:12: White Blood Count 8.0, Red Blood Count 4.24, Hemoglobin 11.3L, Hematocrit 37, Mean Corpuscular Volume 86, Mean Corpuscular Hemoglobin 27, Mean Corpuscular Hemoglobin Concent 31L, Red Cell Distribution Width 18.6H, Platelet Count 256, Mean Platelet Volume 10.4, Immature Granulocyte % (Auto) 0, Neutrophils (%) (Auto) 65, Lymphocytes (%) (Auto) 23, Monocytes (%) (Auto) 8, Eosinophils (%) (Auto) 3, Basophils (%) (Auto) 1, Neutrophils # (Auto) 5.2, Lymphocytes # (Auto) 1.9, Monocytes # (Auto) 0.6, Eosinophils # (Auto) 0.3, Basophils # (Auto) 0.1, Immature Granulocyte # (Auto) 0.0 Assessment/Plan Assessment/Plan Assessment/Plan 1. Abdominal pain - mainly RUQ 2. Intractable N/V -stated nothing helped, but the IV anti-emetics she got once admitted apparently have taken care of everything 3. Diabetes (uncontrolled) 1. CT scan showed no acute gallbladder changes. U/S showed no changes. Consider HIDA scan to assess gallbladder function. Continue to control pain, nausea, and vomiting with medication. Encourage ambulation as tolerated. Pt may also need a Gastric emptying study, could be Gastroparesis causing all her problems. RAGHAVENDRA GILL DO 03/01/21 1236: Subjective Time Seen by a Provider: 10:07 Subjective/Events-last exam Pt seen and examined, states no abdominal pain and minimal nausea. She was sleeping when I walked in, appears comfortable. Review of Systems General: No Chills HEENT: Head Aches; No Visual Changes Pulmonary: No Dyspnea, No Cough Gastrointestinal: Nausea; No: Vomiting, Abdominal Pain Genitourinary: No Dysuria, No Frequency Objective Exam General Appearance: Anxious, Mild Distress (Nausea caused issues with answering questions), Obese Respiratory: Lungs Clear, Normal Breath Sounds, No Accessory Muscle Use, No Respiratory Distress Cardiovascular: No Edema, No Murmur Gastrointestinal: non tender, soft; No distended Skin: Normal Color, Warm/Dry Assessment/Plan Assessment/Plan Assessment/Plan 1. Abdominal pain - mainly RUQ 2. Intractable N/V -stated nothing helped, but the IV anti-emetics she got once admitted apparently have taken care of everything 3. Diabetes (uncontrolled) 1. CT scan showed no acute gallbladder changes. U/S showed no changes. Consider HIDA scan to assess gallbladder function; could be done as outpt. Continue to control pain, nausea, and vomiting with medication. Encourage ambulation as tolerated. Pt may also need a Gastric emptying study, could be Gastroparesis causing all her problems. Will sign off. Supervisory-Addendum Brief Verification & Attestation Participated in pt care: history, MDM, physical Personally performed: exam, history, MDM, supervision of care Care discussed with: Medical Student Procedures: n/a Verification and Attestation of Medical Student E/M Service A medical student performed and documented this service. I then reviewed and verified all information documented by the medical student and made modifications to such information, when appropriate. I personally performed a physical exam, medical decision making and then discussed any differences sergio een the notes and made revisions as necessary to create one note. Raghavendra Gill , 03/01/21 , 12:36 KAMILLE DOWELL Mar 01, 2021 09:51 RAGHAVENDRA GILL DO Mar 01, 2021 12:36
[2021-03-01 11:01] VITALS: BP 121/71
--- NOTE | 2021-03-01 14:10 | Progress Note - Hospitalist ---
ARABELLA COLLIER 03/01/21 1410: Subjective HPI/CC On Admission Date Seen by Provider: Mar 01, 2021 Time Seen by Provider: 10:15 Chief complaint: Recurrent hyperemesis History of present illness: This is a 50-year-old white female known to me from multiple hospital stays all for recurrent nausea and vomiting and recovered from COVID-19 recently who presented to the ER with complaints of nausea and vomiting. This is happening so often the I recommend placement of a PEG tube by surgery. She reports constant nausea and vomiting but remains BMI of 47. Subjective/Events-last exam Today Ms. Ca was asleep and only able to respond to a few questions. Reports improvement of nausea vomiting. Unable to complete ROS Objective Exam Vital Signs Vital Signs Date Time Temp Pulse Resp B/P (MAP) Pulse Ox O2 Delivery O2 Flow Rate FiO2 03/01/21 11:01 36.5 81 18 121/71 (88) 89 Room Air Capillary Refill : Less Than 3 Seconds General Appearance: No Apparent Distress, WD/WN Respiratory: Chest Non Tender, Lungs Clear, Normal Breath Sounds, No Accessory Muscle Use, No Respiratory Distress Cardiovascular: Regular Rate, Rhythm, No Edema, No Gallop, No Murmur Gastrointestinal: Normal Bowel Sounds, Soft, Tenderness Neurologic/Psychiatric: Alert, Oriented x3 Skin: Normal Color, Warm/Dry Results/Procedures Lab Laboratory Tests 03/01/21 07:41 03/01/21 08:12 Patient resulted labs reviewed. Assessment/Plan Assessment and Plan Assess & Plan/Chief Complaint Christie Ca is a 50yo female with a past medical history of COVID-19, CAD, HLD, HTN, migraines, GERD, and fibromyalgia who was admitted 02/28 for unrelentin g nausea, vomiting and abdominal pain Current problems are the following Abdominal pain Persistent nausea, vomiting DDX: Gastroparesis, cholecystitis, psychogenic (somatic symptom disorder) -Recurrent episodes monthly with multiple admission -Long history of diabetes and obesity. -02/27: CT abdomen negative for acute findings -02/27-03/01: Labs wnl except for CRP 0.85, Anion Gap 18 Plan -Surgery consulted. No surgical interventions -Continue to encourage fluid intake -Continue antiemetics - scopolamine, zofran, promeclazine -Continue PPI Diabetes -Insulin sliding scale AYE PHILLIP DO 03/02/21 0641: Subjective Subjective/Events-last exam Patient doing about the same Refusing to converse Psychosocial issues are paramount in this patient Objective Exam General Appearance: No Apparent Distress, WD/WN, Chronically ill, Obese Respiratory: Lungs Clear, Decreased Breath Sounds Cardiovascular: Regular Rate, Rhythm Neurologic/Psychiatric: Alert, Oriented x3, Depressed Affect Assessment/Plan Assessment and Plan Assess & Plan/Chief Complaint Home psych meds Supervisory-Addendum Brief Verification & Attestation Participated in pt care: history, MDM, physical Personally performed: exam, history, MDM, supervision of care Care discussed with: Medical Student Procedures: n/a Results interpretation: Verified all documentation Verification and Attestation of Medical Student E/M Service A medical student performed and documented this service in my presence. I reviewed and verified all information documented by the medical student and made modifications to such information, when appropriate. I personally performed the physical exam and medical decision making. Aye Phillip, Mar 02, 2021,06:41 ARABELLA COLLIER Mar 01, 2021 14:10 AYE PHILLIP DO Mar 02, 2021 06:41
[2021-03-01 16:00] VITALS: BP 96/60
[2021-03-01 21:41] VITALS: BP 109/71
[2021-03-01] MEDS: AtorvaSTATin TABLET 10 MG TABLET PO SCH (21:44)
[2021-03-01] MEDS: QUEtiapine 200 MG (SEROquel) TAB IMMEDIATE RELEASE PO SCH (21:44)
[2021-03-01] MEDS: MIRTAZAPINE 15 MG (REMERON) TAB PO SCH (21:45)
[2021-03-02] VITALS: BP 104/68
[2021-03-02] MEDS: LACTATED RINGERS 1,000 ML IV SCH ×4 (00:01→23:21)
[2021-03-02] MEDS: inSUlin ASPART (NovoLOG) 1 UNIT/0.01 ML (CHARGE PER UNIT) SC SCH ×4 (06:24→21:26)
[2021-03-02] MEDS: VENlafaxine XR 75 MG (EFFEXOR XR) CAP PO SCH (06:28)
[2021-03-02] MEDS: PIOGLITAZONE 30MG (ACTOS) TAB PO SCH (06:28)
[2021-03-02 07:00] LABS: BASOPHILS % (AUTO) 1 % (0-10); EOSINOPHILS # (AUTO) 0.2 10^3/uL (0.0-0.3); EOSINOPHILS % (AUTO) 5 % (0-10); HEMATOCRIT 32 % (35-52); HEMOGLOBIN 9.7 g/dL (11.5-16.0); LYMPHOCYTES # (AUTO) 1.3 10^3/uL (1.0-4.0); LYMPHOCYTES % (AUTO) 31 % (12-44); MEAN CORPUSCULAR HEMOGLOBIN 27 pg (25-34); MEAN CORPUSCULAR HGB CONC 31 g/dL (32-36); MEAN CORPUSCULAR VOLUME 87 fL (80-99); MEAN PLATELET VOLUME 10.9 fL (9.0-12.2); MONOCYTES # (AUTO) 0.4 10^3/uL (0.0-1.0); MONOCYTES % (AUTO) 9 % (0-12); NEUTROPHILS # (AUTO) 2.3 10^3/uL (1.8-7.8); NEUTROPHILS % (AUTO) 54 % (42-75); PLATELET COUNT 181 10^3/uL (130-400); WHITE BLOOD COUNT 4.3 10^3/uL (4.3-11.0)
[2021-03-02 07:24] LABS: ALBUMIN 3.1 GM/DL (3.2-4.5); POTASSIUM 3.5 MMOL/L (3.6-5.0)
[2021-03-02 07:25] VITALS: BP 128/68
[2021-03-02 07:25] LABS: CALCIUM 8.7 MG/DL (8.5-10.1)
[2021-03-02 07:27] LABS: TOTAL PROTEIN 5.8 GM/DL (6.4-8.2)
[2021-03-02 07:28] LABS: BILIRUBIN,TOTAL 0.5 MG/DL (0.1-1.0)
[2021-03-02 07:30] LABS: CREATININE SERUM 0.81 MG/DL (0.60-1.30)
--- NOTE | 2021-03-02 07:50 | Progress Note - Hospitalist ---
Subjective HPI/CC On Admission Date Seen by Provider: Mar 02, 2021 Time Seen by Provider: 11:00 Chief complaint: Recurrent hyperemesis History of present illness: This is a 50-year-old white female known to me from multiple hospital stays all for recurrent nausea and vomiting and recovered from COVID-19 recently who presented to the ER with complaints of nausea and vomiting. This is happening so often the I recommend placement of a PEG tube by surgery. She reports constant nausea and vomiting but remains BMI of 47. Subjective/Events-last exam Patient still really can eat Her blood sugar was 88 so tried some crackers and orange juice Nausea continues Review of Systems Gastrointestinal: Nausea, Vomiting Objective Exam Vital Signs Vital Signs Date Time Temp Pulse Resp B/P (MAP) Pulse Ox O2 Delivery O2 Flow Rate FiO2 03/02/21 08:00 Room Air 03/02/21 07:25 35.9 72 18 128/68 (88) 96 0.50 Capillary Refill : Less Than 3 Seconds General Appearance: No Apparent Distress, WD/WN, Chronically ill, Obese, Other (Flat) Respiratory: Lungs Clear, Normal Breath Sounds Cardiovascular: Regular Rate, Rhythm Neurologic/Psychiatric: Alert, Depressed Affect Results/Procedures Lab Laboratory Tests 03/02/21 06:51 Patient resulted labs reviewed. Assessment/Plan Assessment and Plan Assess & Plan/Chief Complaint Assessment: Recurrent nausea and vomiting Psychosocial issues Dehydration Plan: Supportive care KAMILLE PHILLIP DO Mar 02, 2021 07:50
[2021-03-02] MEDS: PANTOPRAZOLE 40 MG (PROTONIX) VIAL IV SCH (08:00)
[2021-03-02] MEDS: FAMOTIDINE 20 MG (PEPCID) TABLET PO SCH ×2 (08:00→21:37)
[2021-03-02] MEDS: DOCUSATE SODIUM 100 MG (COLACE) CAP PO SCH ×2 (08:00→21:36)
[2021-03-02] MEDS: SPIRONOLACTONE 25 MG (ALDACTONE) TAB PO SCH (08:00)
[2021-03-02] MEDS: GABAPENTIN 600 MG (NEURONTIN) TAB PO SCH ×3 (08:01→21:36)
[2021-03-02] MEDS: PROPRANOLOL 20 MG (INDERAL) TABLET PO SCH ×2 (08:01→21:37)
[2021-03-02] MEDS: ETODOLAC 200 MG (LODINE) CAP PO SCH ×2 (09:20→21:36)
[2021-03-02 15:46] VITALS: BP 128/83
[2021-03-02] MEDS: AtorvaSTATin TABLET 10 MG TABLET PO SCH (21:36)
[2021-03-02] MEDS: MIRTAZAPINE 15 MG (REMERON) TAB PO SCH (21:37)
[2021-03-02] MEDS: QUEtiapine 200 MG (SEROquel) TAB IMMEDIATE RELEASE PO SCH (21:37)
[2021-03-03] VITALS: BP 113/74
[2021-03-03] MEDS: PIOGLITAZONE 30MG (ACTOS) TAB PO SCH (06:19)
[2021-03-03] MEDS: VENlafaxine XR 75 MG (EFFEXOR XR) CAP PO SCH (06:19)
--- NOTE | 2021-03-03 06:39 | Progress Note - Hospitalist ---
Subjective HPI/CC On Admission Date Seen by Provider: Mar 03, 2021 Chief complaint: Recurrent hyperemesis History of present illness: This is a 50-year-old white female known to me from multiple hospital stays all for recurrent nausea and vomiting and recovered from COVID-19 recently who presented to the ER with complaints of nausea and vom iting. This is happening so often the I recommend placement of a PEG tube by surgery. She reports constant nausea and vomiting but remains BMI of 47. Objective Exam Vital Signs Vital Signs Date Time Temp Pulse Resp B/P (MAP) Pulse Ox O2 Delivery O2 Flow Rate FiO2 03/03/21 07:34 35.6 74 18 108/66 (80) 95 Room Air 03/03/21 00:00 2.00 Capillary Refill : Less Than 3 Seconds Results/Procedures Lab Laboratory Tests 03/03/21 07:10 Patient resulted labs reviewed. Assessment/Plan Assessment and Plan Assess & Plan/Chief Complaint Assessment: Recurrent nausea and vomiting Psychosocial issues Dehydration Plan: Supportive care KAMILLE PHILLIP DO Mar 03, 2021 06:39
[2021-03-03] MEDS: inSUlin ASPART (NovoLOG) 1 UNIT/0.01 ML (CHARGE PER UNIT) SC SCH ×2 (06:46→11:16)
[2021-03-03] MEDS: LACTATED RINGERS 1,000 ML IV SCH (07:31)
[2021-03-03 07:33] LABS: BASOPHILS % (AUTO) 1 % (0-10); EOSINOPHILS # (AUTO) 0.2 10^3/uL (0.0-0.3); EOSINOPHILS % (AUTO) 6 % (0-10); HEMATOCRIT 33 % (35-52); HEMOGLOBIN 9.8 g/dL (11.5-16.0); LYMPHOCYTES # (AUTO) 1.4 10^3/uL (1.0-4.0); LYMPHOCYTES % (AUTO) 37 % (12-44); MEAN CORPUSCULAR HEMOGLOBIN 26 pg (25-34); MEAN CORPUSCULAR HGB CONC 30 g/dL (32-36); MEAN CORPUSCULAR VOLUME 88 fL (80-99); MEAN PLATELET VOLUME 11.6 fL (9.0-12.2); MONOCYTES # (AUTO) 0.4 10^3/uL (0.0-1.0); MONOCYTES % (AUTO) 10 % (0-12); NEUTROPHILS # (AUTO) 1.7 10^3/uL (1.8-7.8); NEUTROPHILS % (AUTO) 46 % (42-75); PLATELET COUNT 180 10^3/uL (130-400); WHITE BLOOD COUNT 3.8 10^3/uL (4.3-11.0)
[2021-03-03 07:34] VITALS: BP 108/66
[2021-03-03 07:38] LABS: POTASSIUM 3.5 MMOL/L (3.6-5.0)
[2021-03-03 07:39] LABS: CALCIUM 8.6 MG/DL (8.5-10.1)
[2021-03-03 07:40] LABS: TOTAL PROTEIN 5.6 GM/DL (6.4-8.2)
[2021-03-03 07:42] LABS: BILIRUBIN,TOTAL 0.4 MG/DL (0.1-1.0)
[2021-03-03 07:44] LABS: CREATININE SERUM 0.82 MG/DL (0.60-1.30)
[2021-03-03] MEDS: ETODOLAC 200 MG (LODINE) CAP PO SCH (09:18)
[2021-03-03] MEDS: SPIRONOLACTONE 25 MG (ALDACTONE) TAB PO SCH (09:18)
[2021-03-03] MEDS: FAMOTIDINE 20 MG (PEPCID) TABLET PO SCH (09:18)
[2021-03-03] MEDS: DOCUSATE SODIUM 100 MG (COLACE) CAP PO SCH (09:18)
[2021-03-03] MEDS: GABAPENTIN 600 MG (NEURONTIN) TAB PO SCH (09:18)
[2021-03-03] MEDS: PROPRANOLOL 20 MG (INDERAL) TABLET PO SCH (09:18)
[2021-03-03] MEDS: PANTOPRAZOLE 40 MG (PROTONIX) VIAL IV SCH (09:19)
[2021-03-03] MEDS ORDERED: INSU100I29 SQ ×2 (13:16)
--- NOTE | 2021-03-03 13:17 | Discharge Summary ---
Discharge Summary Hospital Course Was the Problem List Reviewed?: Yes Problems/Dx: (1) Nausea & vomiting Status: Acute Qualifiers: Qualified Codes: R11.2 - Nausea with vomiting, unspecified Hospital Course Date of Admission: Feb 28, 2021 at 07:13 Admission Diagnosis : Family Physician/Provider: Mauro Nava Date of Discharge: 03/03/21 Discharge Diagnosis: Recurrent nausea and vomiting, recent Covid pneumonia Hospital Course: Patient had an uneventful hospital course although lengthy. She has a history of recurrent nausea and vomiting. Patient had been recently placed on doxycycline which appeared to be the cause of this flareup but she did respond to IV fluids and general surgery had no other recommendations so she was discharged in improved condition. Labs and Pending Lab Test: Laboratory Tests 03/02/21 15:51: Glucometer 120H 03/02/21 20:27: Glucometer 117H 03/03/21 06:40: Glucometer 96 03/03/21 07:10: White Blood Count 3.8L, Red Blood Count 3.71L, Hemoglobin 9.8L, Hematocrit 33L, Mean Corpuscular Volume 88, Mean Corpuscular Hemoglobin 26, Mean Corpuscular Hemoglobin Concent 30L, Red Cell Distribution Width 18.7H, Platelet Count 180, Mean Platelet Volume 11.6, Immature Granulocyte % (Auto) 1, Neutrophils (%) (Auto) 46, Lymphocytes (%) (Auto) 37, Monocytes (%) (Auto) 10, Eosinophils (%) (Auto) 6, Basophils (%) (Auto) 1, Neutrophils # (Auto) 1.7L, Lymphocytes # (Auto) 1.4, Monocytes # (Auto) 0.4, Eosinophils # (Auto) 0.2, Basophils # (Auto) 0.0, Immature Granulocyte # (Auto) 0.0, Sodium Level 144, Potassium Level 3.5L, Chloride Level 107, Carbon Dioxide Level 26, Anion Gap 11, Blood Urea Nitrogen 13, Creatinine 0.82, Estimat Glomerular Filtration Rate 73, BUN/Creatinine Ratio 16, Glucose Level 107H, Calcium Level 8.6, Corrected Calcium 9.4, Total Bilirubin 0.4, Aspartate Amino Transf (AST/SGOT) 12, Alanine Aminotransferase (ALT/SGPT) 13, Alkaline Phosphatase 32L, Total Protein 5.6L, Albumin 3.0L 03/03/21 11:05: Glucometer 119H Home Meds Active Reported Propranolol HCl 60 Mg Tablet 60 Mg PO BID Spironolactone 25 Mg Tablet 25 Mg PO DAILY Transderm-Scop (Scopolamine) 1 Each Patch.td72 1 Ea TD Q72H Promethazine Suppository (Promethazine HCl) 25 Mg Supp.rect 25 Mg RC Q6H PRN Ondansetron Odt (Ondansetron) 8 Mg Tab.rapdis 8 Mg PO Q6H PRN Doxycycline Hyclate 100 Mg Tablet 100 Mg PO BID FILLED 02-27-2021 #20/10 DAY SUPPLY Jardiance (Empagliflozin) 10 Mg Tablet 10 Mg PO DAILY Metoclopramide HCl 10 Mg Tablet 10 Mg PO TID Diclofenac Sodium 50 Mg Tablet.dr 50 Mg PO BID Tizanidine HCl 4 Mg Tablet 4 Mg PO TID PRN Famotidine 20 Mg Tablet 20 Mg PO BID Desvenlafaxine Succinate ER (Desvenlafaxine Succinate) 100 Mg Tab.er.24h 100 Mg PO DAILY Quetiapine Fumarate 400 Mg Tablet 400 Mg PO HS LAST FILLED 01-09-2021 #30/30 DAY SUPPLY Mirtazapine 30 Mg Tablet 30 Mg PO HS Atorvastatin Calcium 10 Mg Tablet 10 Mg PO HS Levemir Flextouch (Insulin Detemir) 100 Unit/1 Ml Insuln.pen 15 Unit SQ HS Docusate Sodium 100 Mg Capsule 100 Mg PO BID Pioglitazone HCl 45 Mg Tablet 45 Mg PO DAILY LAST FILLED 10-08-2020 #90/90 DAY SUPPLY Pantoprazole Sodium 40 Mg Tablet.dr 40 Mg PO BID Gabapentin 600 Mg Tablet 600 Mg PO TID Assessment/Pt Instructions PCP to obtain referral to gastroenterology Discharge Planning: <30 minutes discharge planning Discharge Instructions Discharge Diet: No Restrictions Activity as Tolerated: Yes Discharge Physical Examination Vital Signs Vital Signs Date Time Temp Pulse Resp B/P (MAP) Pulse Ox O2 Delivery O2 Flow Rate FiO2 03/03/21 07:34 35.6 74 18 108/66 (80) 95 Room Air 03/03/21 00:00 2.00 General Appearance: No Apparent Distress, WD/WN, Chronically ill, Obese Allergies: Coded Allergies: lisinopril (Verified Allergy, Mild, COUGH, 02/28/21) doxycycline (Verified Allergy, Unknown, 03/03/21) Nausea and vomiting montelukast (Verified Allergy, Unknown, UNABLE TO REMEMBER REACTION, 02/28/21) Uncoded Allergies: METALS (Allergy, Unknown, 07/12/14) Discharge Summary Date of Admission Feb 28, 2021 at 07:13 Date of Discharge Discharge Date: Mar 03, 2021 Admission Diagnosis Assessment: Hyperemesis recurrent in type may need PEG tube Morbid obesity Recent COVID-19 Hypertension Plan: Dr. Gill consult IV meds IV fluids Discharge Diagnosis Assessment: Recurrent nausea and vomiting Psychosocial issues Dehydration Plan: Supportive care KAMILLE PHILLIP DO Mar 03, 2021 13:17
== END 2021-02-28 08:40 | disposition other institution (70) ==
LOC: EDUNIT# 00:05 → ER 00:06 → 4TH 07:13 → UNDOADMIN 07:13 → UNDOADMOB 08:56 → 4TH 08:56 → UNDODISIN 03-03 15:15
DX: R10.11 Right upper quadrant pain (principal); R11.2 Nausea with vomiting, unspecified; J45.909 Unspecified asthma, uncomplicated; I10 Essential (primary) hypertension; E66.9 Obesity, unspecified; F41.9 Anxiety disorder, unspecified; K21.9 Gastro-esophageal reflux disease without esophagitis; F32.9 Major depressive disorder, single episode, unspecified; E11.9 Type 2 diabetes mellitus without complications; E78.00 Pure hypercholesterolemia, unspecified; I25.10 Atherosclerotic heart disease of native coronary artery without angina pectoris; Z68.42 Body mass index [BMI] 45.0-49.9, adult; Z79.4 Long term (current) use of insulin; Z79.899 Other long term (current) drug therapy
CPT/HCPCS: 36415; 80053; 82947; 85025; 86141; 94760; 96361; 96374; 96375; 96376; G0378

== ENCOUNTER 2021-03-05 13:32 | Emergency (ER) | payer MEDICARE, MEDICAID ==
[~2021-03-05] VITALS: Ht 160 cm; Wt 118.0 kg
[2021-03-05] MEDS ORDERED: LACTATED RINGERS 1,000 ML IV SCH (13:45)
[2021-03-05] MEDS ORDERED: ANTACID SUSP 30 ML UDC (MYLANTA) PO ONE (13:45)
[2021-03-05] MEDS ORDERED: LIDOCAINE 2% VISCOUS 15 ML UDC PO ONE (13:45)
[2021-03-05] MEDS ORDERED: DROPERIDOL 5 MG/2 ML (INAPSINE) ED ONLY! IV ONE (13:45)
[2021-03-05 13:50] LABS: BASOPHILS % (AUTO) 1 % (0-10); EOSINOPHILS # (AUTO) 0.2 10^3/uL (0.0-0.3); EOSINOPHILS % (AUTO) 4 % (0-10); HEMATOCRIT 37 % (35-52); HEMOGLOBIN 11.5 g/dL (11.5-16.0); LYMPHOCYTES # (AUTO) 1.7 10^3/uL (1.0-4.0); LYMPHOCYTES % (AUTO) 28 % (12-44); MEAN CORPUSCULAR HEMOGLOBIN 26 pg (25-34); MEAN CORPUSCULAR HGB CONC 31 g/dL (32-36); MEAN CORPUSCULAR VOLUME 84 fL (80-99); MEAN PLATELET VOLUME 10.9 fL (9.0-12.2); MONOCYTES # (AUTO) 0.4 10^3/uL (0.0-1.0); MONOCYTES % (AUTO) 7 % (0-12); NEUTROPHILS # (AUTO) 3.6 10^3/uL (1.8-7.8); NEUTROPHILS % (AUTO) 60 % (42-75); PLATELET COUNT 252 10^3/uL (130-400)
--- NOTE | 2021-03-05 13:50 | ED Abdominal Pain ---
General Chief Complaint: Abdominal/GI Problems Stated Complaint: N/V Nursing Triage Note: PT ARRIVED PER EMS PT CO OF N/V SINCE THURSDAY. PT CAME FROM [facility]. PT IS NON COMPLIANT W MEDS Source of Information: Patient Exam Limitations: No Limitations History of Present Illness Date Seen by Provider: Mar 05, 2021 Time Seen by Provider: 13:48 Initial Comments To ER with nausea vomiting and upper abdominal pain since of last week. She had a scopolamine patch on initially but states that it fell off and she could not put another one on. She has not taken any antiemetics since 7 AM this morning. She comes out here from [facility]. She had a normal CT scan and gallbladder ultrasound last week. Timing/Duration: 1-2 Days Severity/Quality: Cramping Location: Generalized Abdomen Radiation: No Radiation Activities at Onset: None Allergies and Home Medications Allergies Coded Allergies: lisinopril (Verified Allergy, Mild, COUGH, 02/28/21) doxycycline (Verified Allergy, Unknown, 03/03/21) Nausea and vomiting montelukast (Verified Allergy, Unknown, UNABLE TO REMEMBER REACTION, 02/28/21) Uncoded Allergies: METALS (Allergy, Unknown, 07/12/14) Patient Home Medication List Home Medication List Reviewed: Yes Atorvastatin Calcium (Atorvastatin Calcium) 10 Mg Tablet, 10 MG PO HS, (Reported) Entered as Reported by: KAY ARENAS on 12/12/20 1224 Desvenlafaxine Succinate (Desvenlafaxine Succinate ER) 100 Mg Tab.er.24h, 100 MG PO DAILY, (Reported) Entered as Reported by: KAY ARENAS on 12/12/20 1224 Diclofenac Sodium (Diclofenac Sodium) 50 Mg Tablet.dr, 50 MG PO BID, (Reported) Entered as Reported by: KAY ARENAS on 01/10/21 1505 Docusate Sodium (Docusate Sodium) 100 Mg Capsule, 100 MG PO BID, (Reported) Entered as Reported by: KAY ARENAS on 11/22/19 1602 Empagliflozin (Jardiance) 10 Mg Tablet, 10 MG PO DAILY, (Reported) Entered as Reported by: KAY ARENAS on 01/10/21 1505 Famotidine (Famotidine) 20 Mg Tablet, 20 MG PO BID, (Reported) Entered as Reported by: KAY ARENAS on 12/12/20 1224 Gabapentin (Gabapentin) 600 Mg Tablet, 600 MG PO TID, (Reported) Entered as Reported by: KAY ARENAS on 02/28/19 1002 Insulin Detemir (Levemir Flextouch) 100 Unit/1 Ml Insuln.pen, 8 UNIT SQ HS Prescribed by: KAMILLE PHILLIP on 03/03/21 1316 Metoclopramide HCl (Metoclopramide HCl) 10 Mg Tablet, 10 MG PO TID, (Reported) Entered as Reported by: KAY ARENAS on 01/10/21 1505 Mirtazapine (Mirtazapine) 30 Mg Tablet, 30 MG PO HS, (Reported) Entered as Reported by: KAY ARENAS on 12/12/20 1224 Ondansetron (Ondansetron Odt) 8 Mg Tab.rapdis, 8 MG PO Q6H PRN for NAUSEA/VOMITING-1ST LINE, (Reported) Entered as Reported by: KAY ARENAS on 02/28/21 1637 Pantoprazole Sodium (Pantoprazole Sodium) 40 Mg Tablet.dr, 40 MG PO BID, (Reported) Entered as Reported by: KAY ARENAS on 02/28/19 1013 Pioglitazone HCl (Pioglitazone HCl) 45 Mg Tablet, 45 MG PO DAILY, (Reported) Entered as Reported by: KAY ARENAS on 11/22/19 1602 Promethazine HCl (Promethazine Suppository) 25 Mg Supp.rect, 25 MG RC Q6H PRN for NAUSEA/VOMITING-2ND LINE, (Reported) Entered as Reported by: KAY ARENAS on 02/28/21 1637 Propranolol HCl (Propranolol HCl) 60 Mg Tablet, 60 MG PO BID, (Reported) Entered as Reported by: KAY ARENAS on 02/28/21 1637 Quetiapine Fumarate (Quetiapine Fumarate) 400 Mg Tablet, 400 MG PO HS, (Reported) Entered as Reported by: KAY ARENAS on 12/12/20 1224 Scopolamine (Transderm-Scop) 1 Each Patch.td72, 1 EA TD Q72H, (Reported) Entered as Reported by: KAY ARENAS on 02/28/21 1637 Spironolactone (Spironolactone) 25 Mg Tablet, 25 MG PO DAILY, (Reported) Entered as Reported by: KAY ARENAS on 02/28/21 1637 Tizanidine HCl (Tizanidine HCl) 4 Mg Tablet, 4 MG PO TID PRN for MUSCLE SPASMS, (Reported) Entered as Reported by: KAY ARENAS on 12/12/20 1224 Discontinued Medications Doxycycline Hyclate (Doxycycline Hyclate) 100 Mg Tablet, 100 MG PO BID Discontinued Reason: Duplicate Order Prescribed by: RAKAN VILLAGOMEZ on 02/27/21 0843 Doxycycline Hyclate (Doxycycline Hyclate) 100 Mg Tablet, 100 MG PO BID, (Reported) Entered as Reported by: KAY ARENAS on 02/28/21 1637 Ondansetron (Ondansetron Odt) 4 Mg Tab.rapdis, 4 MG PO Q8H PRN for NAUSEA/VOMITING-1ST LINE, (Reported) Discontinued Reason: Duplicate Order Entered as Reported by: KAY ARENAS on 01/10/21 1505 Ondansetron (Ondansetron Odt) 8 Mg Tab.rapdis, 8 MG PO Q6H Discontinued Reason: Duplicate Order Prescribed by: RAKAN VILLAGOMEZ on 02/27/21 0843 Promethazine HCl (Promethazine Suppository) 25 Mg Supp.rect, 25 MG RC Q6 Discontinued Reason: Duplicate Order Prescribed by: RAKAN VILLAGOMEZ on 02/27/21 0843 Scopolamine (Transderm-Scop) 1 Each Patch.td72, 1 EACH TD Q72H Discontinued Reason: Duplicate Order Prescribed by: RAKAN VILLAGOMEZ on 02/27/21 0843 Review of Systems Review of Systems Constitutional: see HPI EENTM: No Symptoms Reported Respiratory: No Symptoms Reported Cardiovascular: No Symptoms Reported Gastrointestinal: See HPI, Abdominal Pain, Nausea, Vomiting Genitourinary: No Symptoms Reported Musculoskeletal: no symptoms reported Skin: no symptoms reported Psychiatric/Neurological: No Symptoms Reported Endocrine: No Symptoms Reported Hematologic/Lymphatic: No Symptoms Reported Past [id number] Hx Patient Social History Tobacco Use?: No Substance use?: No Alcohol Use?: No Pt feels they are or have been: No Immunizations Up To Date Tetanus Booster (TDap): Unknown First/Initial COVID19 Vaccinat: moderna 01/10/2021 Second COVID19 Vaccination Juan M: PT STATES HAS TAKEN BOTH MODERNA VACCINES Seasonal Allergies Seasonal Allergies: No Past Medical History Surgery/Hospitalization HX: Denies. Surgeries: Yes (EGD) Eye Surgery, Orthopedic Respiratory: Yes Asthma, Pneumonia Currently Using CPAP: No Currently Using BIPAP: No Cardiac: Yes Coronary Artery Disease, High Cholesterol, Hypertension Neurological: Yes Headaches /Migraines 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 Disorders: No Female 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 Disorders: Denies [employer] History: Menopausal Sexually Transmitted Disease: No Genitourinary: Yes Kidney Infection, Kidney Stones, Renal Failure Gastrointestinal: Yes Gastroesophageal Reflux, Hiatal Hernia, Ulcer Musculoskeletal: Yes Fibromyalgia Endocrine: Yes Diabetes, Insulin dep HEENT: Yes Loss of Vision: Denies Hearing Impairment: Denies Cancer: No Psychosocial: Yes ADD/ADHD, Sleep Difficulties, Anxiety, Depression Integumentary: No Blood Disorders: No Adverse Reaction/Blood Tranf: No Family Medical History Hypertension 19 FATHER Hypertension Physical Exam Vital Signs Vital Signs - First Documented 03/05/21 03/05/21 13:38 15:04 Temp 36.0 Pulse 88 Resp 18 B/P (MAP) 128/103 (111) Pulse Ox 99 O2 Delivery Room Air Capillary Refill : Less Than 3 Seconds Height/Weight/BMI Height: 5'3.00" Weight: 240lbs. 2.0oz. 108.062525kl; 46.00 BMI Method:Stated General Appearance: WD/WN, no apparent distress HEENT: PERRL/EOMI, normal ENT inspection, TMs normal Neck: non-tender, full range of motion Respiratory: no respiratory distress, no accessory muscle use Cardiovascular: regular rate, rhythm, no murmur Gastrointestinal: normal bowel sounds, non tender, soft Extremities: normal range of motion, non-tender Neurologic/Psychiatric: alert, normal mood/affect, oriented x 3 Skin: normal color, warm/dry Progress/Results/Core Measures Results/Orders Lab Results Laboratory Tests Test 03/05/21 13:43 03/05/21 14:34 Range/Units White Blood Count 6.0 4.3-11.0 10^3/uL Red Blood Count 4.38 3.80-5.11 10^6/uL Hemoglobin 11.5 11.5-16.0 g/dL Hematocrit 37 35-52 % Mean Corpuscular Volume 84 80-99 fL Mean Corpuscular Hemoglobin 26 25-34 pg Mean Corpuscular Hemoglobin Concent 31 L 32-36 g/dL Red Cell Distribution Width 18.0 H 10.0-14.5 % Platelet Count 252 130-400 10^3/uL Mean Platelet Volume 10.9 9.0-12.2 fL Immature Granulocyte % (Auto) 0 % Neutrophils (%) (Auto) 60 42-75 % Lymphocytes (%) (Auto) 28 12-44 % Monocytes (%) (Auto) 7 0-12 % Eosinophils (%) (Auto) 4 0-10 % Basophils (%) (Auto) 1 0-10 % Neutrophils # (Auto) 3.6 1.8-7.8 10^3/uL Lymphocytes # (Auto) 1.7 1.0-4.0 10^3/uL Monocytes # (Auto) 0.4 0.0-1.0 10^3/uL Eosinophils # (Auto) 0.2 0.0-0.3 10^3/uL Basophils # (Auto) 0.0 0.0-0.1 10^3/uL Immature Granulocyte # (Auto) 0.0 0.0-0.1 10^3/uL Sodium Level 139 135-145 MMOL/L Potassium Level 3.5 L 3.6-5.0 MMOL/L Chloride Level 101 98-107 MMOL/L Carbon Dioxide Level 22 21-32 MMOL/L Anion Gap 16 H 5-14 MMOL/L Blood Urea Nitrogen 6 L 7-18 MG/DL Creatinine 0.92 0.60-1.30 MG/DL Estimat Glomerular Filtration Rate 64 BUN/Creatinine Ratio 7 Glucose Level 124 H 70-105 MG/DL Calcium Level 10.2 H 8.5-10.1 MG/DL Corrected Calcium 10.0 8.5-10.1 MG/DL Total Bilirubin 0.9 0.1-1.0 MG/DL Aspartate Amino Transf (AST/SGOT) 20 5-34 U/L Alanine Aminotransferase (ALT/SGPT) 19 0-55 U/L Alkaline Phosphatase 43 40-136 U/L Total Protein 7.5 6.4-8.2 GM/DL Albumin 4.2 3.2-4.5 GM/DL Lipase 27 8-78 U/L Urine Color YELLOW Urine Clarity CLEAR Urine pH 8.0 5-9 Urine Specific [place] 1.015 L 1.016-1.022 Urine Protein NEGATIVE NEGATIVE Urine Glucose (UA) NEGATIVE NEGATIVE Urine Ketones 1+ H NEGATIVE Urine Nitrite NEGATIVE NEGATIVE Urine Bilirubin NEGATIVE NEGATIVE Urine Urobilinogen 0.2 < = 1.0 MG/DL Urine Leukocyte Esterase NEGATIVE NEGATIVE Urine RBC (Auto) NEGATIVE NEGATIVE Urine RBC RARE /HPF Urine WBC 0-2 /HPF Urine Squamous Epithelial Cells 5-10 /HPF Urine Crystals NONE /LPF Urine Bacteria NEGATIVE /HPF Urine Casts NONE /LPF Urine Mucus NEGATIVE /LPF Urine Culture Indicated NO My Orders Orders - SHAN [employer] Cbc With Automated Diff (03/05/21 13:44) Comprehensive Metabolic Panel (03/05/21 13:44) Lipase (03/05/21 13:44) Antacid Suspension (Mylanta Suspension (03/05/21 13:45) Lidocaine 2% Viscous 15 Ml (Xylocaine Vi (03/05/21 13:45) Ua Culture If Indicated (03/05/21 13:44) Lactated Ringers (Lr 1000 Ml Iv Solution (03/05/21 13:45) Droperidol Inj (Ed Only) (Inapsine Inj ( (03/05/21 13:45) Ekg Tracing (03/05/21 13:44) Medications Given in ED Current Medications Medications Dose Ordered Sig/Kate Route Start Time Stop Time Status Last Admin Dose Admin Al Hydrox/Mg Hydrox/Simethicone 30 ml ONCE ONCE PO 03/05/21 13:45 03/05/21 13:46 DC 03/05/21 13:52 30 ML Droperidol 2.5 mg ONCE ONCE IV 03/05/21 13:45 03/05/21 13:46 DC 03/05/21 13:52 2.5 MG Lidocaine HCl 15 ml ONCE ONCE PO 03/05/21 13:45 03/05/21 13:46 DC 03/05/21 13:52 15 ML Vital Signs/I&O 03/05/21 03/05/21 13:38 15:04 Temp 36.0 Pulse 88 97 Resp 18 16 B/P (MAP) 128/103 (111) 140/100 Pulse Ox 99 96 O2 Delivery Room Air Blood Pressure Mean: 111 Departure Communication (Admissions) [id number]-patient denies any improvement after the droperidol and IV fluids though she is sitting up in bed texting on her phone. Her vomit bag remains empty as it was upon arrival. She has had no retching. When I asked how she feels she states "no better". She states "I was just about to throw up". Informed her that I will get her discharge papers ready as her labs are normal and she has not vomited since she has been here. Impression Primary Impression: Nausea alone Disposition: HOME, SELF-CARE Condition: Stable Departure-Patient Inst. Decision time for Depature: 14:54 Referrals: [facility]/SARAH (PCP) Primary Care Physician ALISON STAPLES (Family) Primary Care Physician Patient Instructions: No Instuctions Given [employer] Mar 05, 2021 13:50
[2021-03-05 14:03] LABS: ALBUMIN 4.2 GM/DL (3.2-4.5); POTASSIUM 3.5 MMOL/L (3.6-5.0)
[2021-03-05 14:04] LABS: CALCIUM 10.2 MG/DL (8.5-10.1)
[2021-03-05 14:05] LABS: TOTAL PROTEIN 7.5 GM/DL (6.4-8.2)
[2021-03-05 14:07] LABS: BILIRUBIN,TOTAL 0.9 MG/DL (0.1-1.0)
[2021-03-05 14:09] LABS: CREATININE SERUM 0.92 MG/DL (0.60-1.30)
[2021-03-05 14:42] LABS: BILIRUBIN,URINE NEGATIVE (NEGATIVE); CLARITY,URINE CLEAR; COLOR,URINE YELLOW; GLUCOSE, URINE (UA) NEGATIVE (NEGATIVE); KETONES,URINE 1+ (NEGATIVE); LEUKOCYTE ESTERASE ,URINE NEGATIVE (NEGATIVE); NITRITE,URINE NEGATIVE (NEGATIVE); PROTEIN,URINE NEGATIVE (NEGATIVE)
[2021-03-05 14:52] LABS: BACTERIA,URINE NEGATIVE /HPF; RBC,URINE RARE /HPF; WBC,URINE 0-2 /HPF
[2021-03-05 15:04] VITALS: BP 140/100
== END 2021-03-05 15:04 | disposition home or self-care (01) ==
LOC: EDUNIT# 13:32 → ER 13:33
DX: R11.2 Nausea with vomiting, unspecified (principal); I10 Essential (primary) hypertension; J45.909 Unspecified asthma, uncomplicated; E78.00 Pure hypercholesterolemia, unspecified; I25.10 Atherosclerotic heart disease of native coronary artery without angina pectoris; K21.9 Gastro-esophageal reflux disease without esophagitis; F41.9 Anxiety disorder, unspecified; F32.9 Major depressive disorder, single episode, unspecified; E11.9 Type 2 diabetes mellitus without complications; Z79.899 Other long term (current) drug therapy; Z79.4 Long term (current) use of insulin
CPT/HCPCS: 36415; 80053; 81000; 83690; 85025; 93005

== ENCOUNTER → 2021-04-08 | Outpatient (CLI) | payer MEDICARE, MEDICAID ==
[~2021-04-08] MED LIST changes: +SCOP1PAT10 TD; -SCOP1PAT11 TD
== END ==
LOC: LABNPT 08:25
PROVIDERS: ATTEND Nurse Practitioner Family
DX: Z20.822 Contact with and (suspected) exposure to COVID-19 (principal)
CPT/HCPCS: 87635

== ENCOUNTER 2021-04-10 19:25 | Outpatient (CLI) | payer MEDICARE, MEDICAID | END 2021-04-11 07:31 | disposition home or self-care (01) | LOC: SLEEP 19:25 | PROVIDERS: ATTEND Otolaryngology Otolaryngology/Facial Plastic Surgery | DX: G47.33 Obstructive sleep apnea (adult) (pediatric) (principal); G47.10 Hypersomnia, unspecified; Z86.16 Personal history of COVID-19 | CPT/HCPCS: 95810 ==

== ENCOUNTER 2021-05-05 09:36 | Emergency (ER) | payer MEDICARE, MEDICAID ==
[~2021-05-05] VITALS: Ht 160 cm; Wt 118.0 kg
[~2021-05-05 09:36] MED LIST changes: +CYCL10TA25 PO; -CYCL10TA9 PO; +TIZA-186 PO; -TIZA4TAB4 PO
[2021-05-05] MEDS ORDERED: DICYCLOMINE 10 MG/ML (BENTYL) 2 ML AMP IM STA (09:45)
[2021-05-05] MEDS ORDERED: METOCLOPRAMIDE INJ 10 MG/2 ML (REGLAN) IVP ONE (09:45)
[2021-05-05] MEDS ORDERED: diphenhydrAMINE 50 MG/ML INJ (BENADRYL) IVP ONE (09:45)
[2021-05-05] MEDS ORDERED: NS IV 1000 ML 1,000 ML IV SCH (09:45)
--- NOTE | 2021-05-05 09:52 | ED Abdominal Pain ---
General Chief Complaint: Abdominal/GI Problems Stated Complaint: ABDOMINAL PAIN Source of Information: Patient, EMS Exam Limitations: No Limitations History of Present Illness Date Seen by Provider: May 05, 2021 Time Seen by Provider: 09:40 Initial Comments Patient is a 51-year-old female who presents to the emergency department by prashanth cowan today with a chief complaint of periumbilical abdominal pain. Patient states she woke up with the pain yesterday morning. She is taken her home pain medications and some nausea medications and some fkqn-zfa-oemffle medications without any relief of symptoms. EMS reports that she related to them she has been vomiting "every 15 minutes" all night long. Patient states that she had a bowel movement about 15 minutes prior to arrival that was nonblack nonbloody. Patient states that she has had increased urinary frequency but denies dysuria. She states her temperature has been "99.6" which is a little high for her. She denies any Covid symptoms. She is Covid vaccinated in February. She states she has never had any abdominal surgeries. She tells me that she has an appointment with a tray service worker tomorrow, Dr. Kan. She tells me that her primary care physician believes her chronic abdominal pain is related to her diabetes. She has "flares" like this almost monthly. She cannot think of any thing that makes the pain any better or any worse. All other review of systems reviewed and negative except as stated Timing/Duration: 24 Hours Severity/Quality: Severe, Aching, Cramping Location: Periumbilical Activities at Onset: Sleeping Associated Symptoms: Nausea/Vomiting Allergies and Home Medications Allergies Coded Allergies: lisinopril (Verified Allergy, Mild, COUGH, 02/28/21) doxycycline (Verified Allergy, Unknown, 03/03/21) Nausea and vomiting montelukast (Verified Allergy, Unknown, UNABLE TO REMEMBER REACTION, 02/28/21) Uncoded Allergies: METALS (Allergy, Unknown, 07/12/14) Patient Home Medication List Home Medication List Reviewed: Yes Atorvastatin Calcium (Atorvastatin Calcium) 10 Mg Tablet, 10 MG PO HS, (Reported) Entered as Reported by: KAY ARENAS on 12/12/20 1224 Desvenlafaxine Succinate (Desvenlafaxine Succinate ER) 100 Mg Tab.er.24h, 100 MG PO DAILY, (Reported) Entered as Reported by: KAY ARENAS on 12/12/20 1224 Diclofenac Sodium (Diclofenac Sodium) 50 Mg Tablet.dr, 50 MG PO BID, (Reported) Entered as Reported by: KAY ARENAS on 01/10/21 1505 Docusate Sodium (Docusate Sodium) 100 Mg Capsule, 100 MG PO BID, (Reported) Entered as Reported by: KAY ARENAS on 11/22/19 1602 Empagliflozin (Jardiance) 10 Mg Tablet, 10 MG PO DAILY, (Reported) Entered as Reported by: KAY ARENAS on 01/10/21 1505 Famotidine (Famotidine) 20 Mg Tablet, 20 MG PO BID, (Reported) Entered as Reported by: KAY ARENAS on 12/12/20 1224 Gabapentin (Gabapentin) 600 Mg Tablet, 600 MG PO TID, (Reported) Entered as Reported by: KAY ARENAS on 02/28/19 1002 Insulin Detemir (Levemir Flextouch) 100 Unit/1 Ml Insuln.pen, 8 UNIT SQ HS Prescribed by: KAMILLE PHILLIP on 03/03/21 1316 Metoclopramide HCl (Metoclopramide HCl) 10 Mg Tablet, 10 MG PO TID, (Reported) Entered as Reported by: KAY ARENAS on 01/10/21 1505 Mirtazapine (Mirtazapine) 30 Mg Tablet, 30 MG PO HS, (Reported) Entered as Reported by: KAY ARENAS on 12/12/20 1224 Ondansetron (Ondansetron Odt) 8 Mg Tab.rapdis, 8 MG PO Q6H PRN for NAUSEA/VOMITING-1ST LINE, (Reported) Entered as Reported by: KAY ARENAS on 02/28/21 1637 Ondansetron (Ondansetron Odt) 4 Mg Tab.rapdis, 4 MG PO Q6H PRN for NAUSEA/VOMITING Prescribed by: PATRICIA BUSBY on 05/05/21 1131 Pantoprazole Sodium (Pantoprazole Sodium) 40 Mg Tablet.dr, 40 MG PO BID, (Reported) Entered as Reported by: KAY ARENAS on 02/28/19 1013 Pioglitazone HCl (Pioglitazone HCl) 45 Mg Tablet, 45 MG PO DAILY, (Reported) Entered as Reported by: KAY ARENAS on 11/22/19 1602 Promethazine HCl (Promethazine Suppository) 25 Mg Supp.rect, 25 MG RC Q6H PRN for NAUSEA/VOMITING-2ND LINE, (Reported) Entered as Reported by: KAY ARENAS on 02/28/21 1637 Propranolol HCl (Propranolol HCl) 60 Mg Tablet, 60 MG PO BID, (Reported) Entered as Reported by: KAY ARENAS on 02/28/21 1637 Quetiapine Fumarate (Quetiapine Fumarate) 400 Mg Tablet, 400 MG PO HS, (Reported) Entered as Reported by: KAY ARENAS on 12/12/20 1224 Scopolamine (Transderm-Scop) 1 Each Patch.td72, 1 EA TD Q72H, (Reported) Entered as Reported by: KAY ARENAS on 02/28/21 1637 Spironolactone (Spironolactone) 25 Mg Tablet, 25 MG PO DAILY, (Reported) Entered as Reported by: KAY ARENAS on 02/28/21 1637 Tizanidine HCl (Tizanidine HCl) 4 Mg Tablet, 4 MG PO TID PRN for MUSCLE SPASMS, (Reported) Entered as Reported by: KAY ARENAS on 12/12/20 1224 Discontinued Medications Ondansetron (Ondansetron Odt) 4 Mg Tab.rapdis, 4 MG PO Q8H PRN for nausea Prescribed by: PATRICIA BUSBY on 05/05/21 1047 Review of Systems Review of Systems Constitutional: see HPI, fever ("99.6") EENTM: No Symptoms Reported Respiratory: No Symptoms Reported Cardiovascular: No Symptoms Reported Gastrointestinal: Abdominal Pain, Nausea, Vomiting Genitourinary: Frequency Musculoskeletal: no symptoms reported Skin: no symptoms reported Psychiatric/Neurological: Anxiety Endocrine: No Symptoms Reported All Other Systems Reviewed Negative Unless Noted: Yes Past Sdiitlv-Llqfav-Mjtbml Hx Immunizations Up To Date Tetanus Booster (TDap): Unknown First/Initial COVID19 Vaccinat: moderna 01/10/2021 Second COVID19 Vaccination Juan M: PT STATES HAS TAKEN BOTH MODERNA VACCINES Third COVID19 Vaccination Date: 01/2021 Seasonal Allergies Seasonal Allergies: No Past Medical History Surgery/Hospitalization HX: Denies. Surgeries: Yes (EGD) Eye Surgery, Orthopedic Respiratory: Yes Asthma, Pneumonia Currently Using CPAP: No Currently Using BIPAP: No Cardiac: Yes Coronary Artery Disease, High Cholesterol, Hypertension Neurological: Yes Headaches /Migraines 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 Disorders: No Female 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 Disorders: Denies [employer] History: Menopausal Sexually Transmitted Disease: No Genitourinary: Yes Kidney Infection, Kidney Stones, Renal Failure Gastrointestinal: Yes Gastroesophageal Reflux, Hiatal Hernia, Ulcer Musculoskeletal: Yes Fibromyalgia Endocrine: Yes Diabetes, Insulin dep HEENT: Yes Loss of Vision: Denies Hearing Impairment: Denies Cancer: No Psychosocial: Yes ADD/ADHD, Sleep Difficulties, Anxiety, Depression Integumentary: No Blood Disorders: No Adverse Reaction/Blood Tranf: No Family Medical History Hypertension 19 FATHER Hypertension Physical Exam Vital Signs Vital Signs - First Documented 05/05/21 09:37 Temp 36.0 Pulse 98 Resp 20 B/P (MAP) 161/110 (127) Pulse Ox 98 Capillary Refill : Height/Weight/BMI Height: 5'3.00" Weight: 240lbs. 2.0oz. [id number]; 46.00 BMI Method:Stated General Appearance: WD/WN, mild distress HEENT: PERRL/EOMI Neck: normal inspection Respiratory: lungs clear, normal breath sounds, no respiratory distress, no accessory muscle use Cardiovascular: regular rate, rhythm Gastrointestinal: normal bowel sounds, soft, other (diffuse abdominal tenderness without involuntary guarding or rebound; patient examined in the recliner chair as she states she cannot lie in the bed) Extremities: normal range of motion, normal inspection Neurologic/Psychiatric: alert, normal mood/affect, oriented x 3, other (anxious) Skin: normal color, warm/dry Progress/Results/Core Measures Results/Orders Lab Results Laboratory Tests Test 05/05/21 09:43 05/05/21 10:24 Range/Units White Blood Count 8.2 4.3-11.0 10^3/uL Red Blood Count 4.62 3.80-5.11 10^6/uL Hemoglobin 11.9 11.5-16.0 g/dL Hematocrit 38 35-52 % Mean Corpuscular Volume 82 80-99 fL Mean Corpuscular Hemoglobin 26 25-34 pg Mean Corpuscular Hemoglobin Concent 31 L 32-36 g/dL Red Cell Distribution Width 15.9 H 10.0-14.5 % Platelet Count 305 130-400 10^3/uL Mean Platelet Volume 10.4 9.0-12.2 fL Immature Granulocyte % (Auto) 1 % Neutrophils (%) (Auto) 69 42-75 % Lymphocytes (%) (Auto) 21 12-44 % Monocytes (%) (Auto) 7 0-12 % Eosinophils (%) (Auto) 1 0-10 % Basophils (%) (Auto) 1 0-10 % Neutrophils # (Auto) 5.7 1.8-7.8 10^3/uL Lymphocytes # (Auto) 1.7 1.0-4.0 10^3/uL Monocytes # (Auto) 0.6 0.0-1.0 10^3/uL Eosinophils # (Auto) 0.1 0.0-0.3 10^3/uL Basophils # (Auto) 0.1 0.0-0.1 10^3/uL Immature Granulocyte # (Auto) 0.1 0.0-0.1 10^3/uL Sodium Level 139 135-145 MMOL/L Potassium Level 3.6 3.6-5.0 MMOL/L Chloride Level 103 98-107 MMOL/L Carbon Dioxide Level 21 21-32 MMOL/L Anion Gap 15 H 5-14 MMOL/L Blood Urea Nitrogen 10 7-18 MG/DL Creatinine 1.24 0.60-1.30 MG/DL Estimat Glomerular Filtration Rate 45 BUN/Creatinine Ratio 8 Glucose Level 257 H 70-105 MG/DL Calcium Level 10.0 8.5-10.1 MG/DL Corrected Calcium 9.8 8.5-10.1 MG/DL Total Bilirubin 0.8 0.1-1.0 MG/DL Aspartate Amino Transf (AST/SGOT) 41 H 5-34 U/L Alanine Aminotransferase (ALT/SGPT) 54 0-55 U/L Alkaline Phosphatase 58 40-136 U/L Total Protein 7.8 6.4-8.2 GM/DL Albumin 4.3 3.2-4.5 GM/DL Lipase 20 8-78 U/L Urine Color DARK YELLOW Urine Clarity SL CLOUDY Urine pH 6.0 5-9 Urine Specific [place] 1.015 L 1.016-1.022 Urine Protein 1+ H NEGATIVE Urine Glucose (UA) TRACE H NEGATIVE Urine Ketones 3+ H NEGATIVE Urine Nitrite NEGATIVE NEGATIVE Urine Bilirubin 1+ H NEGATIVE Urine Urobilinogen 0.2 < = 1.0 MG/DL Urine Leukocyte Esterase 1+ H NEGATIVE Urine RBC (Auto) TRACE-I H NEGATIVE Urine RBC NONE /HPF Urine WBC 50-100 H /HPF Urine Squamous Epithelial Cells 10-25 H /HPF Urine Crystals NONE /LPF Urine Bacteria FEW H /HPF Urine Casts NONE /LPF Urine Mucus NEGATIVE /LPF Urine Culture Indicated YES My Orders Orders - PATRICIA BUSBY MD Ed Iv/Invasive Line Start (05/05/21 09:45) Cbc With Automated Diff (05/05/21 09:45) Comprehensive Metabolic Panel (05/05/21 09:45) Lipase (05/05/21 09:45) Ua Culture If Indicated (05/05/21 09:45) Ns Iv 1000 Ml (Sodium Chloride 0.9%) (05/05/21 09:45) Metoclopramide Injection (Reglan Injecti (05/05/21 09:45) Diphenhydramine Injection (Benadryl Inje (05/05/21 09:45) Dicyclomine Injection (Bentyl Injection) (05/05/21 09:45) Urine Culture (05/05/21 10:24) Lorazepam Injection (Ativan Injection) (05/05/21 10:45) Medications Given in ED Vital Signs/I&O 05/05/21 05/05/21 09:37 11:18 Temp 36.0 36.0 Pulse 98 101 Resp 20 18 B/P (MAP) 161/110 (127) 134/93 Pulse Ox 98 98 Progress Progress Note #1: Time: 10:45 Progress Note Notified by the writer technical publications that the patient was complaining of a return of nausea. She states it got better "for a while" but when she got up to go to the bathroom she started having nausea again. She has a bucket at her side but has not had any dry heaving or vomiting the duration of her ER stay. Vital signs remained stable. Patient is quite jittery and agitated. She states her abdominal pain is improved. She does report increased stress over the holidays. Will give her a milligram of Ativan and see if this helps with her agitation and nausea behind the Reglan and Benadryl. Patient's labs have been reviewed and are within normal limits. Her urine is contaminated with squamous epithelial cells and is flagged for culture. As she has no current symptoms, no fever, no white count will let this urine culture for pathologic specimens and if it grows anything of concern then we will start her on antibiotics. Anticipate discharge to home. Progress Note #2: Time: 11:12 Progress Note Patient notified the nurse she was feeling better after 1mg of ativan. Return precautions were given. patient will be discharged to home. Departure Impression Primary Impression: Abdominal pain Qualified Codes: R10.9 - Unspecified abdominal pain Disposition: HOME, SELF-CARE Condition: Stable Departure-Patient Inst. Referrals: [facility]/ (PCP) Primary Care Physician ALISON STAPLES (Family) Primary Care Physician Patient Instructions: Chronic Pain (DC) Add. Discharge Instructions: Please keep your appointment with Dr. Kan tomorrow. Continue home medications for pain and nausea. Return to the emergency department for any high fevers, worsening pain, inability to hold down your medications or any other emergent concerning symptoms Scripts Ondansetron (Ondansetron Odt) 4 Mg Tab.rapdis 4 MG PO Q6H PRN for NAUSEA/VOMITING, #20 TAB 0 Refills Prov: PATRICIA BUSBY MD 05/05/21 PATRICIA BUSBY MD May 05, 2021 09:52
[2021-05-05 09:55] LABS: BASOPHILS # (AUTO) 0.1 10^3/uL (0.0-0.1); BASOPHILS % (AUTO) 1 % (0-10); EOSINOPHILS # (AUTO) 0.1 10^3/uL (0.0-0.3); EOSINOPHILS % (AUTO) 1 % (0-10); HEMATOCRIT 38 % (35-52); HEMOGLOBIN 11.9 g/dL (11.5-16.0); LYMPHOCYTES # (AUTO) 1.7 10^3/uL (1.0-4.0); LYMPHOCYTES % (AUTO) 21 % (12-44); MEAN CORPUSCULAR HEMOGLOBIN 26 pg (25-34); MEAN CORPUSCULAR HGB CONC 31 g/dL (32-36); MEAN CORPUSCULAR VOLUME 82 fL (80-99); MEAN PLATELET VOLUME 10.4 fL (9.0-12.2); MONOCYTES # (AUTO) 0.6 10^3/uL (0.0-1.0); MONOCYTES % (AUTO) 7 % (0-12); NEUTROPHILS # (AUTO) 5.7 10^3/uL (1.8-7.8); NEUTROPHILS % (AUTO) 69 % (42-75); PLATELET COUNT 305 10^3/uL (130-400); WHITE BLOOD COUNT 8.2 10^3/uL (4.3-11.0)
[2021-05-05 09:57] LABS: ALBUMIN 4.3 GM/DL (3.2-4.5)
[2021-05-05 09:58] LABS: POTASSIUM 3.6 MMOL/L (3.6-5.0)
[2021-05-05 10:00] LABS: TOTAL PROTEIN 7.8 GM/DL (6.4-8.2)
[2021-05-05 10:02] LABS: BILIRUBIN,TOTAL 0.8 MG/DL (0.1-1.0)
[2021-05-05 10:04] LABS: CREATININE SERUM 1.24 MG/DL (0.60-1.30)
[2021-05-05 10:29] LABS: CLARITY,URINE SL CLOUDY; COLOR,URINE DARK YELLOW; GLUCOSE, URINE (UA) TRACE (NEGATIVE); KETONES,URINE 3+ (NEGATIVE); LEUKOCYTE ESTERASE ,URINE 1+ (NEGATIVE); NITRITE,URINE NEGATIVE (NEGATIVE); PROTEIN,URINE 1+ (NEGATIVE)
[2021-05-05 10:39] LABS: BACTERIA,URINE FEW /HPF; BILIRUBIN,URINE 1+ (NEGATIVE); WBC,URINE 50-100 /HPF
[2021-05-05] MEDS ORDERED: LORazepam INJ 2 MG/ML (ATIVAN) VIAL IVP ONE (10:45)
[2021-05-05] MEDS ORDERED: ONDA4TAB11 PO ×2 (10:47→11:31)
[2021-05-05 11:18] VITALS: BP 134/93
== END 2021-05-05 11:18 | disposition home or self-care (01) ==
LOC: EDUNIT# 09:36 → ER 09:38
DX: R10.84 Generalized abdominal pain (principal); J45.909 Unspecified asthma, uncomplicated; I10 Essential (primary) hypertension; E78.00 Pure hypercholesterolemia, unspecified; I25.10 Atherosclerotic heart disease of native coronary artery without angina pectoris; K21.9 Gastro-esophageal reflux disease without esophagitis; F41.9 Anxiety disorder, unspecified; F32.9 Major depressive disorder, single episode, unspecified; E11.9 Type 2 diabetes mellitus without complications; Z79.899 Other long term (current) drug therapy; Z79.4 Long term (current) use of insulin
CPT/HCPCS: 36415; 80053; 81000; 83690; 85025; 87077; 87088; 87186

== ENCOUNTER → 2021-06-11 | Outpatient (CLI) | payer MEDICARE, MEDICAID ==
--- NOTE | 2021-06-11 13:29 | Diagnostic Imaging Report ---
GASTRIC EMPTYING TIME SCAN Technique: Anterior and posterior planar scintigraphic images of the stomach were obtained after the patient ingested 1.0 mCi of technetium 99m sulfur collate mixed with eggs. Indication: Gastroparesis Comparison: CT abdomen pelvis from 02/27/2021 Findings: A time activity curve was calculated for the stomach with the following values of retained activity in the stomach post ingestion: 1 hour: 78% (delayed if greater than 90% retained) 2 hour: 63% (delayed if greater than 60% retained) 3 hour: 57% (delayed if greater than 30% retained) 4 hour: 57% (delayed if greater than 10%) The half-time (T1/2) for gastric emptying was 257 minutes, which is prolonged. Impression:Gastroparesis. Dictated by: Dictated on workstation # [id number]
== END ==
LOC: CARD 09:00
PROVIDERS: ATTEND Internal Medicine Gastroenterology
DX: K31.84 Gastroparesis (principal); E11.43 Type 2 diabetes mellitus with diabetic autonomic (poly)neuropathy
CPT/HCPCS: 78264; A9541

== ENCOUNTER 2021-06-29 01:22 | Emergency (ER) | payer MEDICARE, MEDICAID ==
[~2021-06-29] VITALS: Ht 160 cm; Wt 116.0 kg
[2021-06-29] MEDS ORDERED: LACTATED RINGERS 1,000 ML IV ONE (01:30)
[2021-06-29] MEDS ORDERED: ONDANSETRON 4 MG/2 ML (SDV) Z0FRAN IVP ONE ×2 (01:30)
[2021-06-29 01:57] LABS: BASOPHILS # (AUTO) 0.1 10^3/uL (0.0-0.1); BASOPHILS % (AUTO) 1 % (0-10); EOSINOPHILS # (AUTO) 0.1 10^3/uL (0.0-0.3); EOSINOPHILS % (AUTO) 1 % (0-10); HEMATOCRIT 40 % (35-52); HEMOGLOBIN 12.5 g/dL (11.5-16.0); LYMPHOCYTES # (AUTO) 2.8 10^3/uL (1.0-4.0); LYMPHOCYTES % (AUTO) 30 % (12-44); MEAN CORPUSCULAR HEMOGLOBIN 25 pg (25-34); MEAN CORPUSCULAR HGB CONC 32 g/dL (32-36); MEAN CORPUSCULAR VOLUME 79 fL (80-99); MEAN PLATELET VOLUME 12.2 fL (9.0-12.2); MONOCYTES # (AUTO) 0.7 10^3/uL (0.0-1.0); MONOCYTES % (AUTO) 8 % (0-12); NEUTROPHILS # (AUTO) 5.5 10^3/uL (1.8-7.8); NEUTROPHILS % (AUTO) 60 % (42-75); PLATELET COUNT 310 10^3/uL (130-400); WHITE BLOOD COUNT 9.2 10^3/uL (4.3-11.0)
[2021-06-29 01:59] LABS: BILIRUBIN,URINE NEGATIVE (NEGATIVE); CLARITY,URINE CLEAR; COLOR,URINE YELLOW; GLUCOSE, URINE (UA) 3+ (NEGATIVE); KETONES,URINE 2+ (NEGATIVE); LEUKOCYTE ESTERASE ,URINE NEGATIVE (NEGATIVE); NITRITE,URINE NEGATIVE (NEGATIVE); PROTEIN,URINE NEGATIVE (NEGATIVE)
[2021-06-29 02:01] LABS: ALBUMIN 4.5 GM/DL (3.2-4.5); POTASSIUM 3.6 MMOL/L (3.6-5.0)
[2021-06-29 02:02] LABS: CALCIUM 10.2 MG/DL (8.5-10.1)
[2021-06-29 02:03] LABS: TOTAL PROTEIN 8.3 GM/DL (6.4-8.2)
[2021-06-29 02:05] LABS: BILIRUBIN,TOTAL 0.7 MG/DL (0.1-1.0)
[2021-06-29 02:07] LABS: CREATININE SERUM 1.25 MG/DL (0.60-1.30)
[2021-06-29 02:07] LABS: BACTERIA,URINE TRACE /HPF
[2021-06-29] MEDS ORDERED: KETOROLAC 30 MG/ML VIAL IVP STA (02:28)
[2021-06-29] MEDS ORDERED: NS IV 1000 ML 1,000 ML IV SCH (02:30)
[2021-06-29 02:33] LABS: AMPHETAMINE SCREEN, URINE NEGATIVE (NEGATIVE); BARBITURATE SCREEN URINE NEGATIVE (NEGATIVE); BENZODIAZEPINES SCREEN URINE NEGATIVE (NEGATIVE); CANNABINOID SCREEN, URINE NEGATIVE (NEGATIVE); COCAINE SCREEN URINE NEGATIVE (NEGATIVE); METHADONE STAT NEGATIVE (NEGATIVE); METHAMPHETAMINE SCREEN URINE S NEGATIVE (NEGATIVE); OPIATE SCREEN URINE NEGATIVE (NEGATIVE); OXYCODONE STAT NEGATIVE (NEGATIVE); PROPOXYPHENE STAT NEGATIVE (NEGATIVE); TRICYCLIC ANTIDEPRESSANTS SCRE NEGATIVE (NEGATIVE)
[2021-06-29] MEDS ORDERED: PROMETHAZINE INJ 25 MG/ML (PHENERGAN) AMP IVP ONE (02:45)
[2021-06-29] MEDS ORDERED: diphenhydrAMINE 50 MG/ML INJ (BENADRYL) IVP ONE (02:45)
[2021-06-29] MEDS ORDERED: NS 100 ML (IVPB) BAG IV ONE (03:30)
[2021-06-29] MEDS ORDERED: IOHEXOL 350 MG/ML 100 ML (OMNIPAQUE 350) VIAL IV ONE (03:30)
[2021-06-29] MEDS ORDERED: HOLD METFORMIN - RECEIVED CONTRAST 20 ML VIAL IV SCH (03:30)
[2021-06-29] MEDS ORDERED: DROPERIDOL 5 MG/2 ML (INAPSINE) ED ONLY! IV ONE (04:00)
[2021-06-29] MEDS ORDERED: PROM25SU44 RC (04:30)
[2021-06-29] MEDS ORDERED: ONDA8TAB13 PO (04:30)
[2021-06-29] MEDS ORDERED: HYOS0.1283 SL (04:31)
--- NOTE | 2021-06-29 04:32 | ED GI ---
General Chief Complaint: Abdominal/GI Problems Stated Complaint: ABD PAIN Nursing Triage Note: PT TO ED BY EMS WITH C/O ABD PAIN AND N/V BEGINNING 0700 YESTERDAY. REPORTS SHE VOMITED SEVERAL TIMES YESTERDAY AND ZOFRAN DID NOT HELP WITH NAUSEA AT HOME. REPORTS LAST BM YESTERDAY AFTERNOON AND NORMAL FOR HER. 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 PT WAS WAITING AT THE DOOR, AND WALKED OUT TO THE AMBULANCE ON HER OWN PT STATES "SAME ALWAYS" "I'M TIRED OF IT" "I HATE COMING HERE" C/O ABDOMINAL PAIN--AROUND UMBILICUS C/O NAUSEA AND VOMITING/DRY HEAVES STATES SYMPTOMS BEGAN YESTERDAY MORNING AROUND 0700 HAS NOT TAKEN ANYTHING FOR SYMPTOMS BOTH OF THESE ARE CHRONIC COMPLAINTS, AND PT HAS HAD 13 VISITS IN THE LAST YEAR--ALL ESSENTIALLY FOR THESE SAME COMPLAINTS PT STATES SHE HAS RECENTLY WAS DIAGNOSED WITH GASTROPARESIS NO FEVER NO DIARRHEA NO URINARY SYMPTOMS PT HAS NOT CHECKED BLOOD GLUCOSE TODAY PT STATES "I'M TRYING TO GET SOME "[facility] FROM [facility]" "I'M WAITING ON MY INSURANCE" RAMBLES ON ABOUT VARIOUS THINGS EXCEPT WHY SHE IS HERE-GOES ON ABOUT TALKING/TEXTING SOMEONE IN [place], ETC. NO KNOWN SICK CONTACTS PT REPORTS TO ME THAT SHE HAS NOT HAD COVID-19 VACCINE ( HAS REPORTED ON PREVIOUS VISITS THAT SHE HAS HAD 2 MODERNA COVID-19 VACCINES) STATES SHE HAD COVID-19 IN JANUARY. PCP: [facility] Allergies and Home Medications Allergies Coded Allergies: lisinopril (Verified Allergy, Mild, COUGH, 02/28/21) doxycycline (Verified Allergy, Unknown, 03/03/21) Nausea and vomiting montelukast (Verified Allergy, Unknown, UNABLE TO REMEMBER REACTION, 02/28/21) Uncoded Allergies: METALS (Allergy, Unknown, 07/12/14) Patient Home Medication List Home Medication List Reviewed: Yes Atorvastatin Calcium (Atorvastatin Calcium) 10 Mg Tablet, 10 MG PO HS, (Reported) Entered as Reported by: KAY ARENAS on 12/12/20 1224 Desvenlafaxine Succinate (Desvenlafaxine Succinate ER) 100 Mg Tab.er.24h, 100 MG PO DAILY, (Reported) Entered as Reported by: KAY ARENAS on 12/12/20 1224 Diclofenac Sodium (Diclofenac Sodium) 50 Mg Tablet.dr, 50 MG PO BID, (Reported) Entered as Reported by: KAY ARENAS on 01/10/21 1505 Docusate Sodium (Docusate Sodium) 100 Mg Capsule, 100 MG PO BID, (Reported) Entered as Reported by: KAY ARENAS on 11/22/19 1602 Empagliflozin (Jardiance) 10 Mg Tablet, 10 MG PO DAILY, (Reported) Entered as Reported by: KAY ARENAS on 01/10/21 1505 Famotidine (Famotidine) 20 Mg Tablet, 20 MG PO BID, (Reported) Entered as Reported by: KAY ARENAS on 12/12/20 1224 Gabapentin (Gabapentin) 600 Mg Tablet, 600 MG PO TID, (Reported) Entered as Reported by: KAY ARENAS on 02/28/19 1002 Hyoscyamine Sulfate (Levsin-Sl) 0.125 Mg Tab.subl, 0.25 MG SL Q4H Prescribed by: RAKAN VILLAGOMEZ on 06/29/21 0431 Insulin Detemir (Levemir Flextouch) 100 Unit/1 Ml Insuln.pen, 8 UNIT SQ HS Prescribed by: KAMILLE PHILLIP on 03/03/21 1316 Metoclopramide HCl (Metoclopramide HCl) 10 Mg Tablet, 10 MG PO TID, (Reported) Entered as Reported by: KAY ARENAS on 01/10/21 1505 Mirtazapine (Mirtazapine) 30 Mg Tablet, 30 MG PO HS, (Reported) Entered as Reported by: KAY ARENAS on 12/12/20 1224 Ondansetron (Ondansetron Odt) 8 Mg Tab.rapdis, 8 MG PO Q6H PRN for NAUSEA/VOMITING-1ST LINE, (Reported) Entered as Reported by: KAY ARENAS on 02/28/21 1637 Ondansetron (Ondansetron Odt) 4 Mg Tab.rapdis, 4 MG PO Q6H PRN for NAUSEA/VOMITING Prescribed by: PATRICIA BUSBY on 05/05/21 1131 Ondansetron (Ondansetron Odt) 8 Mg Tab.rapdis, 8 MG PO Q6H Prescribed by: RAKAN VILLAGOMEZ on 06/29/21 0430 Pantoprazole Sodium (Pantoprazole Sodium) 40 Mg Tablet.dr, 40 MG PO BID, (Reported) Entered as Reported by: KAY ARENAS on 02/28/19 1013 Pioglitazone HCl (Pioglitazone HCl) 45 Mg Tablet, 45 MG PO DAILY, (Reported) Entered as Reported by: KAY ARENAS on 11/22/19 1602 Promethazine HCl (Promethazine Suppository) 25 Mg Supp.rect, 25 MG RC Q6H PRN for NAUSEA/VOMITING-2ND LINE, (Reported) Entered as Reported by: KAY ARENAS on 02/28/21 1637 Promethazine HCl (Promethazine Suppository) 25 Mg Supp.rect, 25 MG RC Q6H Prescribed by: RAKAN VILLAGOMEZ on 06/29/21 0430 Propranolol HCl (Propranolol HCl) 60 Mg Tablet, 60 MG PO BID, (Reported) Entered as Reported by: KAY ARENAS on 02/28/21 1637 Quetiapine Fumarate (Quetiapine Fumarate) 400 Mg Tablet, 400 MG PO HS, (Reported) Entered as Reported by: KAY ARENAS on 12/12/20 1224 Scopolamine (Transderm-Scop) 1 Each Patch.td72, 1 EA TD Q72H, (Reported) Entered as Reported by: KAY ARENAS on 02/28/21 163 Spironolactone (Spironolactone) 25 Mg Tablet, 25 MG PO DAILY, (Reported) Entered as Reported by: KAY ARENAS on 02/28/21 1637 Tizanidine HCl (Tizanidine HCl) 4 Mg Tablet, 4 MG PO TID PRN for MUSCLE SPASMS, (Reported) Entered as Reported by: KAY ARENAS on 12/12/20 1224 Review of Systems Review of Systems Constitutional: no symptoms reported EENTM: No Symptoms Reported Respiratory: No Symptoms Reported Cardiovascular: No Symptoms Reported Gastrointestinal: See HPI, Abdominal Pain, Nausea, Vomiting Genitourinary: No Symptoms Reported Musculoskeletal: no symptoms reported Skin: no symptoms reported Psychiatric/Neurological: Anxiety Endocrine: No Symptoms Reported Hematologic/Lymphatic: No Symptoms Reported Past Zhlquhw-Kuvaht-Tfwato Hx Patient Social History Tobacco Use?: No Use of E-Cig and/or Vaping dev: No Substance use?: No Alcohol Use?: No Pt feels they are or have been: No Immunizations Up To Date Tetanus Booster (TDap): Unknown Influenza Vaccine Up-to-Date: No; Not Current First/Initial COVID19 Vaccinat: JAN 2021 Second COVID19 Vaccination Jua Nm: FEB 2021 Third COVID19 Vaccination Date: PT STATES HAS TAKEN BOTH MODERNA VACCINES 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: MODERNA Seasonal Allergies Seasonal Allergies: No Past Medical History Surgery/Hospitalization HX: DM 2, FIBROMYALGIA, ARTHRITIS IN SPINE Surgeries: Yes (EGD) Eye Surgery, Orthopedic Respiratory: Yes Asthma, Pneumonia Currently Using CPAP: No Currently Using BIPAP: No Cardiac: Yes Coronary Artery Disease, High Cholesterol, Hypertension Neurological: Yes Headaches /Migraines 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 Disorders: No Female 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 Disorders: Denies 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 Sexually Transmitted Disease: No Genitourinary: Yes Kidney Infection, Kidney Stones, Renal Failure Gastrointestinal: Yes Gastroesophageal Reflux, Hiatal Hernia, Ulcer Musculoskeletal: Yes Fibromyalgia Endocrine: Yes Diabetes, Insulin dep HEENT: Yes Loss of Vision: Denies Hearing Impairment: Denies Cancer: No Psychosocial: Yes ADD/ADHD, Sleep Difficulties, Anxiety, Depression Integumentary: No Blood Disorders: No Adverse Reaction/Blood Tranf: No Family Medical History Hypertension 19 FATHER Hypertension Physical Exam Vital Signs Vital Signs - First Documented 06/29/21 01:22 Temp 35.8 Pulse 92 Resp 18 B/P (MAP) 153/95 (114) Pulse Ox 99 O2 Delivery Room Air Capillary Refill : Height/Weight/BMI Height: 5'3.00" Weight: 240lbs. 2.0oz. 108.680206vw; 45.00 BMI Method:Stated General Appearance: no apparent distress, obese (MORBIDLY), other (EXTREMELY DRAMATIC, TALKING NON-STOP, ANXIOUS) HEENT: PERRL/EOMI Neck: normal inspection Respiratory: normal breath sounds, no respiratory distress, no accessory muscle use Cardiovascular: regular rate, rhythm, no murmur Gastrointestinal: soft, tenderness (MILD PERIUMBILCAL TENDERNESS. 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 ) Progress/Results/Core Measures Results/Orders Lab Results Laboratory Tests Test 06/29/21 01:35 06/29/21 01:50 Range/Units White Blood Count 9.2 4.3-11.0 10^3/uL Red Blood Count 5.01 3.80-5.11 10^6/uL Hemoglobin 12.5 11.5-16.0 g/dL Hematocrit 40 35-52 % Mean Corpuscular Volume 79 L 80-99 fL Mean Corpuscular Hemoglobin 25 25-34 pg Mean Corpuscular Hemoglobin Concent 32 32-36 g/dL Red Cell Distribution Width 16.1 H 10.0-14.5 % Platelet Count 310 130-400 10^3/uL Mean Platelet Volume 12.2 9.0-12.2 fL Immature Granulocyte % (Auto) 0 % Neutrophils (%) (Auto) 60 42-75 % Lymphocytes (%) (Auto) 30 12-44 % Monocytes (%) (Auto) 8 0-12 % Eosinophils (%) (Auto) 1 0-10 % Basophils (%) (Auto) 1 0-10 % Neutrophils # (Auto) 5.5 1.8-7.8 10^3/uL Lymphocytes # (Auto) 2.8 1.0-4.0 10^3/uL Monocytes # (Auto) 0.7 0.0-1.0 10^3/uL Eosinophils # (Auto) 0.1 0.0-0.3 10^3/uL Basophils # (Auto) 0.1 0.0-0.1 10^3/uL Immature Granulocyte # (Auto) 0.0 0.0-0.1 10^3/uL Sodium Level 139 135-145 MMOL/L Potassium Level 3.6 3.6-5.0 MMOL/L Chloride Level 105 98-107 MMOL/L Carbon Dioxide Level 17 L 21-32 MMOL/L Anion Gap 17 H 5-14 MMOL/L Blood Urea Nitrogen 14 7-18 MG/DL Creatinine 1.25 0.60-1.30 MG/DL Estimat Glomerular Filtration Rate 52 BUN/Creatinine Ratio 11 Glucose Level 306 H 70-105 MG/DL Calcium Level 10.2 H 8.5-10.1 MG/DL Corrected Calcium 9.8 8.5-10.1 MG/DL Total Bilirubin 0.7 0.1-1.0 MG/DL Aspartate Amino Transf (AST/SGOT) 21 5-34 U/L Alanine Aminotransferase (ALT/SGPT) 26 0-55 U/L Alkaline Phosphatase 63 40-136 U/L Total Protein 8.3 H 6.4-8.2 GM/DL Albumin 4.5 3.2-4.5 GM/DL Amylase Level 29 25-125 U/L Lipase 18 8-78 U/L Urine Color YELLOW Urine Clarity CLEAR Urine pH 8.0 5-9 Urine Specific [place] 1.010 L 1.016-1.022 Urine Protein NEGATIVE NEGATIVE Urine Glucose (UA) 3+ H NEGATIVE Urine Ketones 2+ H NEGATIVE Urine Nitrite NEGATIVE NEGATIVE Urine Bilirubin NEGATIVE NEGATIVE Urine Urobilinogen 0.2 < = 1.0 MG/DL Urine Leukocyte Esterase NEGATIVE NEGATIVE Urine RBC (Auto) NEGATIVE NEGATIVE Urine RBC 2-5 H /HPF Urine WBC NONE /HPF Urine Squamous Epithelial Cells 5-10 /HPF Urine Crystals NONE /LPF Urine Bacteria TRACE /HPF Urine Casts NONE /LPF Urine Mucus NEGATIVE /LPF Urine Culture Indicated NO Urine Opiates Screen NEGATIVE NEGATIVE Urine Oxycodone Screen NEGATIVE NEGATIVE Urine Methadone Screen NEGATIVE NEGATIVE Urine Propoxyphene Screen NEGATIVE NEGATIVE Urine Barbiturates Screen NEGATIVE NEGATIVE Ur Tricyclic Antidepressants Screen NEGATIVE NEGATIVE Urine Phencyclidine Screen NEGATIVE NEGATIVE Urine Amphetamines Screen NEGATIVE NEGATIVE Urine Methamphetamines Screen NEGATIVE NEGATIVE Urine Benzodiazepines Screen NEGATIVE NEGATIVE Urine Cocaine Screen NEGATIVE NEGATIVE Urine Cannabinoids Screen NEGATIVE NEGATIVE My Orders Orders - RAKAN VILLAGOMEZ DO Accucheck Stat ONCE (06/29/21 01:30) Monitor-Rhythm Ecg Trace Only (06/29/21 01:30) Amylase (06/29/21 01:30) Cbc With Automated Diff (06/29/21 01:30) Comprehensive Metabolic Panel (06/29/21 01:30) Drug Screen Stat (Urine) (06/29/21 01:30) Lipase (06/29/21 01:30) Ua Culture If Indicated (06/29/21 01:30) Ondansetron Injection (Zofran Injectio (06/29/21 01:30) Ed Iv/Invasive Line Start (06/29/21 01:30) Lactated Ringers (Lr 1000 Ml Iv Solution (06/29/21 01:30) Ondansetron Injection (Zofran Injectio (06/29/21 01:30) Ct Abdomen/Pelvis W (06/29/21 02:27) Ed Iv/Invasive Line Start (06/29/21 02:28) Ns Iv 1000 Ml (Sodium Chloride 0.9%) (06/29/21 02:30) Ketorolac Injection (Toradol Injection) (06/29/21 02:28) Promethazine Injection (Phenergan Injec (06/29/21 02:45) Diphenhydramine Injection (Benadryl Inje (06/29/21 02:45) Iohexol Injection (Omnipaque 350 Mg/Ml 1 (06/29/21 03:30) Received Contrast (Hold Metformin- Contr (06/29/21 03:30) Ns (Ivpb) (Sodium Chloride 0.9% Ivpb Bag (06/29/21 03:30) Droperidol Inj (Ed Only) (Inapsine Inj ( (06/29/21 04:00) Medications Given in ED Current Medications Medications Dose Ordered Sig/Kate Route Start Time Stop Time Status Last Admin Dose Admin Diphenhydramine HCl 50 mg ONCE ONCE IVP 06/29/21 02:45 06/29/21 02:46 DC 06/29/21 02:40 50 MG Iohexol 100 ml ONCE ONCE IV 06/29/21 03:30 06/29/21 03:31 DC 06/29/21 03:27 100 ML Lactated Ringer's 1,000 ml @ 0 mls/hr Q0M ONCE IV 06/29/21 01:30 06/29/21 01:32 DC 06/29/21 01:44 0 MLS/HR Ondansetron HCl 4 mg ONCE ONCE IVP 06/29/21 01:30 06/29/21 01:32 DC 06/29/21 01:45 4 MG Ondansetron HCl 4 mg ONCE ONCE IVP 06/29/21 01:30 06/29/21 01:32 DC 06/29/21 01:46 4 MG Promethazine HCl 25 mg ONCE ONCE IVP 06/29/21 02:45 06/29/21 02:46 DC 06/29/21 02:40 25 MG Sodium Chloride 100 ml ONCE ONCE IV 06/29/21 03:30 06/29/21 03:31 DC 06/29/21 03:27 80 ML Vital Signs/I&O 06/29/21 06/29/21 01:22 04:38 Temp 35.8 Pulse 92 89 Resp 18 18 B/P (MAP) 153/95 (114) 139/79 Pulse Ox 99 99 O2 Delivery Room Air Room Air Blood Pressure Mean: 114 Progress Progress Note : Progress Note GIVEN IV FLUIDS AND ZOFRAN AND PHENERGAN WITH RESOLUTION OF SYMPTOMS NO DETERIORATION IN PT'S CONDITION DURING ER STAY Diagnostic Imaging Comments CT ABDOMEN/PELVIS--PER [facility] VIA FAX AT 6166 NO ACUTE PROCESS, FATTY LIVER, DIVERTICULOSIS WITHOUT ACUTE DIVERTICULITIS. Reviewed: Reviewed by Me Departure Impression Primary Impression: Chronic generalized abdominal pain Additional Impressions: CHRONIC NAUSEA AND VOMITING IDDM (insulin dependent diabetes mellitus) Disposition: HOME, SELF-CARE Condition: Improved Departure-Patient Inst. Decision time for Depature: 04:20 Referrals: [facility]AH (PCP) Primary Care Physician ALISON STAPLES (Family) Primary Care Physician Patient Instructions: Abdominal Pain, Adult ED, Nausea and Vomiting, Adult ED Add. Discharge Instructions: CLEAR LIQUIDS, SIPS AT A TIME--WATER, BROTH, JELLO, GATORADE WHEN YOUR PAIN AND NAUSEA ARE IMPROVED, ADD BRATS DIET TO CLEAR LIQUIDS--BANANAS, RICE, APPLESAUCE, TOAST, SALTINES CONTINUE YOUR REGULAR MEDICATIONS PRESCRIBED FOLLOW UP WITH YOUR DR ON THURSDAY IF NO BETTER All discharge instructions reviewed with patient and/or family. Voiced understanding. Scripts Hyoscyamine Sulfate (Levsin-Sl) 0.125 Mg Tab.subl 0.25 MG SL Q4H, #20 TAB Prov: RAKAN VILLAGOMEZ DO 06/29/21 Promethazine HCl (Promethazine Suppository) 25 Mg Supp.rect 25 MG RC Q6H, #15 SUPP.RECT Prov: RAKAN VILLAGOMEZ DO 06/29/21 Ondansetron (Ondansetron Odt) 8 Mg Tab.rapdis 8 MG PO Q6H, #15 TAB Prov: RAKAN VILLAGOMEZ DO 06/29/21 RAKAN VILLAGOMEZ DO Jun 29, 2021 04:32
[2021-06-29 04:38] VITALS: BP 139/79
--- NOTE | 2021-06-29 07:12 | Diagnostic Imaging Report ---
PROCEDURE: CT abdomen and pelvis with contrast. TECHNIQUE: Multiple contiguous axial images were obtained through the abdomen and pelvis after administration of intravenous contrast. Auto Exposure Controls were utilized during the CT exam to meet ALARA standards for radiation dose reduction. All CT scans use one or more of the following dose optimizing techniques: automated exposure control, MA and/or KvP adjustment based on patient size and exam type or iterative reconstruction. INDICATION: Abdominal pain. CORRELATION is made with prior CT from 02/27/2021. The lung bases are clear. There is diffuse low-density throughout the liver consistent with hepatic steatosis. No liver mass is detected. Gallbladder is unremarkable. There is no biliary ductal dilatation. The pancreas and spleen are unremarkable. No adrenal mass is identified. There appears to be cortical scarring involving bilateral kidneys. No calculi or hydronephrosis is seen. Aorta is nonaneurysmal. Bowel loops are normal caliber. There is diverticulosis of the sigmoid colon but no evidence of acute diverticulitis. There is no free fluid or fluid collection. The uterus and bladder are unremarkable. IMPRESSION: 1. Hepatic steatosis. 2. Uncomplicated diverticulosis. 3. No acute feature is detected. Dictated by: Dictated on workstation # [id number]
== END 2021-06-29 04:40 | disposition home or self-care (01) ==
LOC: EDUNIT# 01:22 → ER 01:24
DX: G89.29 Other chronic pain (principal); R10.84 Generalized abdominal pain; R11.2 Nausea with vomiting, unspecified; E11.9 Type 2 diabetes mellitus without complications; J45.909 Unspecified asthma, uncomplicated; I10 Essential (primary) hypertension; E78.00 Pure hypercholesterolemia, unspecified; I25.10 Atherosclerotic heart disease of native coronary artery without angina pectoris; F41.9 Anxiety disorder, unspecified; F32.9 Major depressive disorder, single episode, unspecified; K21.9 Gastro-esophageal reflux disease without esophagitis; Z79.4 Long term (current) use of insulin; Z79.899 Other long term (current) drug therapy
CPT/HCPCS: 36415; 74177; 80053; 80306; 81000; 82150; 83690; 85025; 93041

== ENCOUNTER 2021-06-29 09:54 | Emergency (ER) | payer MEDICARE, MEDICAID ==
[~2021-06-29] VITALS: Ht 160 cm; Wt 113.0 kg
[2021-06-29] MEDS ORDERED: diphenhydrAMINE 50 MG/ML INJ (BENADRYL) IV ONE (10:15)
[2021-06-29] MEDS ORDERED: LORazepam INJ 2 MG/ML (ATIVAN) VIAL IVP ONE (10:15)
[2021-06-29] MEDS ORDERED: LACTATED RINGERS 1,000 ML IV SCH (10:15)
--- NOTE | 2021-06-29 10:24 | ED Abdominal Pain ---
General Chief Complaint: Abdominal/GI Problems Stated Complaint: ABD PAIN Nursing Triage Note: TO ED PER EMS FROM [facility]. WAS DISCHARE FROM ED EARLY AM WITH VOMITING WAS DX WITH MARIA STERLING [address] KNOX. REPORTS IS HOME VOMITING AND HAS NO ONE TO TAKE CARE OF HER AND WOULD LIKE TO BE ADITTED. Source of Information: Patient, EMS Exam Limitations: No Limitations History of Present Illness Date Seen by Provider: Jun 29, 2021 Time Seen by Provider: 10:00 Initial Comments Patient is a 51-year-old female who presents to the emergency room by ambulance from [facility] clinic chief complaint periumbilical abdominal pain, nausea and vomiting. Patient was seen here earlier this morning by Dr. VILLAGOMEZ. Had extensive evaluation and CAT scan. No concerning findings on her laboratory studies nor her CAT scan. Patient states she has not had a bowel movement in over 24 hours, has not tried any xwbt-yke-bifxzgd medications to alleviate this. States her urine is "dribbling". Patient's did have urinalysis done earlier in the evening and it was negative for signs of infection. Her vital signs are stable. She is afebrile. She tells me she was recently diagnosed with gastroparesis just after New Year's by Dr. Josue Knox. She does not have any scheduled follow-ups. She is waiting for a prescription from [facility] for domperidone. She states it is very expensive and she has not gotten it yet. She states she "threw up" her Zofran which is ODT earlier this morning. She has been trying sips of water without relief. She does have a history of mental illness, cannot recall the last time she saw her provider for mental health. All other ROS reviewed and negative except as s tated. Severity/Quality: Severe, Aching Location: Periumbilical Associated Symptoms: Nausea/Vomiting, Other (constipation) Allergies and Home Medications Allergies Coded Allergies: lisinopril (Verified Allergy, Mild, COUGH, 02/28/21) doxycycline (Verified Allergy, Unknown, 03/03/21) Nausea and vomiting montelukast (Verified Allergy, Unknown, UNABLE TO REMEMBER REACTION, 02/28/21) Uncoded Allergies: METALS (Allergy, Unknown, 07/12/14) Patient Home Medication List Home Medication List Reviewed: Yes Atorvastatin Calcium (Atorvastatin Calcium) 10 Mg Tablet, 10 MG PO HS, (Repo rted) Entered as Reported by: KAY ARENAS on 12/12/20 1224 Desvenlafaxine Succinate (Desvenlafaxine Succinate ER) 100 Mg Tab.er.24h, 100 MG PO DAILY, (Reported) Entered as Reported by: KAY ARENAS on 12/12/20 1224 Diclofenac Sodium (Diclofenac Sodium) 50 Mg Tablet.dr, 50 MG PO BID, (Reported) Entered as Reported by: KAY ARENAS on 01/10/21 1505 Docusate Sodium (Docusate Sodium) 100 Mg Capsule, 100 MG PO BID, (Reported) Entered as Reported by: KAY ARENAS on 11/22/19 1602 Empagliflozin (Jardiance) 10 Mg Tablet, 10 MG PO DAILY, (Reported) Entered as Reported by: KAY ARENAS on 01/10/21 1505 Famotidine (Famotidine) 20 Mg Tablet, 20 MG PO BID, (Reported) Entered as Reported by: KAY ARENAS on 12/12/20 1224 Gabapentin (Gabapentin) 600 Mg Tablet, 600 MG PO TID, (Reported) Entered as Reported by: KAY ARENAS on 02/28/19 1002 Hyoscyamine Sulfate (Levsin-Sl) 0.125 Mg Tab.subl, 0.25 MG SL Q4H Prescribed by: RAKAN VILLAGOMEZ on 06/29/21 0431 Insulin Detemir (Levemir Flextouch) 100 Unit/1 Ml Insuln.pen, 8 UNIT SQ HS Prescribed by: KAMILLE PHILLIP on 03/03/21 1316 Metoclopramide HCl (Metoclopramide HCl) 10 Mg Tablet, 10 MG PO TID, (Reported) Entered as Reported by: KAY ARENAS on 01/10/21 1505 Mirtazapine (Mirtazapine) 30 Mg Tablet, 30 MG PO HS, (Reported) Entered as Reported by: KAY ARENAS on 12/12/20 1224 Ondansetron (Ondansetron Odt) 8 Mg Tab.rapdis, 8 MG PO Q6H PRN for NAUSEA/VOMITING-1ST LINE, (Reported) Entered as Reported by: KAY ARENAS on 02/28/21 1637 Ondansetron (Ondansetron Odt) 4 Mg Tab.rapdis, 4 MG PO Q6H PRN for NAUSEA/VOMITING Prescribed by: PATRICIA BUSBY on 05/05/21 1131 Ondansetron (Ondansetron Odt) 8 Mg Tab.rapdis, 8 MG PO Q6H Prescribed by: RAKAN VILLAGOMEZ on 06/29/21 0430 Pantoprazole Sodium (Pantoprazole Sodium) 40 Mg Tablet.dr, 40 MG PO BID, (Reported) Entered as Reported by: KAY ARENAS on 02/28/19 1013 Pioglitazone HCl (Pioglitazone HCl) 45 Mg Tablet, 45 MG PO DAILY, (Reported) Entered as Reported by: KAY ARENAS on 11/22/19 1602 Promethazine HCl (Promethazine Suppository) 25 Mg Supp.rect, 25 MG RC Q6H PRN for NAUSEA/VOMITING-2ND LINE, (Reported) Entered as Reported by: KAY ARENAS on 02/28/21 1637 Promethazine HCl (Promethazine Suppository) 25 Mg Supp.rect, 25 MG RC Q6H Prescribed by: RAKAN VILLAGOMEZ on 06/29/21 0430 Propranolol HCl (Propranolol HCl) 60 Mg Tablet, 60 MG PO BID, (Reported) Entered as Reported by: KAY ARENAS on 02/28/21 1637 Quetiapine Fumarate (Quetiapine Fumarate) 400 Mg Tablet, 400 MG PO HS, (Reported) Entered as Reported by: KAY ARENAS on 12/12/20 1224 Scopolamine (Transderm-Scop) 1 Each Patch.td72, 1 EA TD Q72H, (Reported) Entered as Reported by: KAY ARENAS on 02/28/21 1637 Spironolactone (Spironolactone) 25 Mg Tablet, 25 MG PO DAILY, (Reported) Entered as Reported by: KAY ARENAS on 02/28/21 1637 Tizanidine HCl (Tizanidine HCl) 4 Mg Tablet, 4 MG PO TID PRN for MUSCLE SPASMS, (Reported) Entered as Reported by: KAY ARENAS on 12/12/20 1224 Review of Systems Review of Systems Constitutional: see HPI EENTM: No Symptoms Reported Respiratory: No Symptoms Reported Cardiovascular: No Symptoms Reported Gastrointestinal: Abdominal Pain, Constipated, Nausea, Vomiting Genitourinary: Other (dribbling urine) Musculoskeletal: no symptoms reported Skin: no symptoms reported Psychiatric/Neurological: Anxiety All Other Systems Reviewed Negative Unless Noted: Yes Past Gshoyyg-Assbwx-Cyccwa Hx Patient Social History Tobacco Use?: No Substance use?: No Pt feels they are or have been: No Immunizations Up To Date Tetanus Booster (TDap): Unknown First/Initial COVID19 Vaccinat: JAN Second COVID19 Vaccination Juan M: Feb COVID19 Vaccination Date: PT STATES HAS TAKEN BOTH MODERNA VACCINES COVID19 Vaccine Supervisor Felling Bucking: SHANNON Seasonal Allergies Seasonal Allergies: No Past Medical History Surgery/Hospitalization HX: DM 2, FIBROMYALGIA, ARTHRITIS IN SPINE Surgeries: Yes (EGD) Eye Surgery, Orthopedic Respiratory: Yes Asthma, Pneumonia Currently Using CPAP: No Currently Using BIPAP: No Cardiac: Yes Coronary Artery Disease, High Cholesterol, Hypertension Neurological: Yes Headaches /Migraines 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 Disorders: No Female 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 Disorders: 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 Sexually Transmitted Disease: No Genitourinary: Yes Kidney Infection, Kidney Stones, Renal Failure Gastrointestinal: Yes Gastroesophageal Reflux, Hiatal Hernia, Ulcer Musculoskeletal: Yes Fibromyalgia Endocrine: Yes Diabetes, Insulin dep HEENT: Yes Loss of Vision: Denies Hearing Impairment: Denies Cancer: No Psychosocial: Yes ADD/ADHD, Sleep Difficulties, Anxiety, Depression Integumentary: No Blood Disorders: No Adverse Reaction/Blood Tranf: No Family Medical History Hypertension 19 FATHER Hypertension Physical Exam Vital Signs Vital Signs - First Documented 06/29/21 09:55 Temp 35.6 Pulse 95 Resp 18 B/P (MAP) 137/91 (106) Pulse Ox 99 Capillary Refill : Less Than 3 Seconds Height/Weight/BMI Height: 5'3.00" Weight: 240lbs. 2.0oz. 108.671611cy; 44.00 BMI Method:Stated General Appearance: WD/WN, mild distress (anxious) HEENT: PERRL/EOMI, other (mucous membranes are moist) Neck: full range of motion, normal inspection Respiratory: lungs clear, normal breath sounds, no respiratory distress, no accessory muscle use Cardiovascular: regular rate, rhythm Gastrointestinal: normal bowel sounds, soft, no organomegaly, tenderness (to even light palpation of the skin) Extremities: normal range of motion, normal inspection Neurologic/Psychiatric: alert, normal mood/affect, oriented x 3, other (anxious) Skin: normal color, warm/dry Progress/Results/Core Measures Results/Orders Lab Results Laboratory Tests Test 06/29/21 10:56 Range/Units Sodium Level 139 135-145 MMOL/L Potassium Level 3.6 3.6-5.0 MMOL/L Chloride Level 106 98-107 MMOL/L Carbon Dioxide Level 18 L 21-32 MMOL/L Anion Gap 15 H 5-14 MMOL/L Blood Urea Nitrogen 14 7-18 MG/DL Creatinine 1.38 H 0.60-1.30 MG/DL Estimat Glomerular Filtration Rate 46 BUN/Creatinine Ratio 10 Glucose Level 289 H 70-105 MG/DL Calcium Level 9.9 8.5-10.1 MG/DL My Orders Orders - PATRICIA BUSBY MD Ed Iv/Invasive Line Start (06/29/21 10:14) Basic Metabolic Panel (06/29/21 10:14) Lactated Ringers (Lr 1000 Ml Iv Solution (06/29/21 10:15) Lorazepam Injection (Ativan Injection) (06/29/21 10:15) Diphenhydramine Injection (Benadryl Inje (06/29/21 10:15) Dicyclomine Injection (Bentyl Injection) (06/29/21 12:36) Medications Given in ED Current Medications Medications Dose Ordered Sig/Kate Route Start Time Stop Time Status Last Admin Dose Admin Diphenhydramine HCl 25 mg ONCE ONCE IV 06/29/21 10:15 06/29/21 10:16 DC 06/29/21 11:14 25 MG Lorazepam 1 mg ONCE ONCE IVP 06/29/21 10:15 06/29/21 10:16 DC 06/29/21 11:14 1 MG Vital Signs/I&O 06/29/21 09:55 Temp 35.6 Pulse 95 Resp 18 B/P (MAP) 137/91 (106) Pulse Ox 99 Blood Pressure Mean: 106 Progress Progress Note : Time: 12:49 Progress Note Patient reassessed, her nausea is much better she has not vomited since she has been in the department. She requests something for her abdominal pain. I gave her 20 mg of dicyclomine. We will send her home to resume her home medications Departure Impression Primary Impression: Chronic generalized abdominal pain Additional Impression: Nausea and vomiting Qualified Codes: R11.2 - Nausea with vomiting, unspecified Disposition: HOME, SELF-CARE Condition: Stable Departure-Patient Inst. Decision time for Depature: 12:51 Referrals: [facility] (PCP) Primary Care Physician ALISON STAPLES (Family) Primary Care Physician Patient Instructions: Nausea and Vomiting, Adult Add. Discharge Instructions: Small sips of water or fluids at home as tolerated. Continue your nausea medications and fill the prescriptions you were given earlier in the day by Dr. VILLAGOMEZ. Take these as prescribed You also need to follow-up this week with your mental health provider Follow-up with Dr. Knox, call his office for a new appointment. Return to the emergency room for any new, concerning or emergent complaints PATRICIA BUSBY MD Jun 29, 2021 10:24
[2021-06-29 11:19] LABS: POTASSIUM 3.6 MMOL/L (3.6-5.0)
[2021-06-29 11:20] LABS: CALCIUM 9.9 MG/DL (8.5-10.1)
[2021-06-29 11:25] LABS: CREATININE SERUM 1.38 MG/DL (0.60-1.30)
[2021-06-29] MEDS ORDERED: DICYCLOMINE 10 MG/ML (BENTYL) 2 ML AMP IM STA (12:36)
[2021-06-29 13:09] VITALS: BP 146/82
== END 2021-06-29 13:09 | disposition home or self-care (01) ==
LOC: EDUNIT# 09:54 → ER 09:55
DX: R10.84 Generalized abdominal pain (principal); R11.2 Nausea with vomiting, unspecified; I10 Essential (primary) hypertension; E78.00 Pure hypercholesterolemia, unspecified; I25.10 Atherosclerotic heart disease of native coronary artery without angina pectoris; J45.909 Unspecified asthma, uncomplicated; K21.9 Gastro-esophageal reflux disease without esophagitis; F41.9 Anxiety disorder, unspecified; F32.9 Major depressive disorder, single episode, unspecified; E11.9 Type 2 diabetes mellitus without complications; Z79.4 Long term (current) use of insulin; Z79.899 Other long term (current) drug therapy
CPT/HCPCS: 36415; 80048

== ENCOUNTER 2021-07-12 05:50 | Emergency (ER) | payer MEDICARE, MEDICAID ==
[~2021-07-12] VITALS: Ht 160 cm; Wt 113.9 kg
[2021-07-12] MEDS ORDERED: ONDANSETRON 4 MG (ZOFRAN) ORAL DISSOLVE TAB PO STA (06:12)
[2021-07-12] MEDS ORDERED: diphenhydrAMINE 50 MG/ML INJ (BENADRYL) IM ONE (06:15)
[2021-07-12] MEDS ORDERED: DICYCLOMINE 10 MG/ML (BENTYL) 2 ML AMP IM ONE ×2 (06:15)
--- NOTE | 2021-07-12 06:15 | ED Abdominal Pain ---
General Chief Complaint: Abdominal/GI Problems Stated Complaint: ABD PAIN Nursing Triage Note: Pt arrives via EMS from home for c/o abd pain, dizziness, et N/V that pt reports is chronic Source of Information: Patient Exam Limitations: No Limitations History of Present Illness Date Seen by Provider: Jul 12, 2021 Time Seen by Provider: 05:59 Initial Comments Patient to the ER by EMS with chief complaint of 1 day of abdominal pain, nausea. She states this is the same as her chronic abdominal pain and nausea and when she took her famotidine, ondansetron did not help and she just picked it back up. She is not having any fevers or chills. She says her whole belly hurts. In the past Bentyl and Benadryl have been helpful for her nausea. She is not having any dysuria diarrhea fevers chills. Her sugars have been running in the 200s. Patient is a strong history of gastroparesis. She is on Reglan 10 mg 3 times daily. Allergies and Home Medications Allergies Coded Allergies: lisinopril (Verified Allergy, Mild, COUGH, 02/28/21) doxycycline (Verified Allergy, Unknown, 03/03/21) Nausea and vomiting montelukast (Verified Allergy, Unknown, UNABLE TO REMEMBER REACTION, 02/28/21) Uncoded Allergies: METALS (Allergy, Unknown, 07/12/14) Patient Home Medication List Home Medication List Reviewed: Yes Atorvastatin Calcium (Atorvastatin Calcium) 10 Mg Tablet, 10 MG PO HS, (Reported) Entered as Reported by: KAY ARENAS on 12/12/20 1224 Desvenlafaxine Succinate (Desvenlafaxine Succinate ER) 100 Mg Tab.er.24h, 100 MG PO DAILY, (Reported) Entered as Reported by: KAY ARENAS on 12/12/20 1224 Diclofenac Sodium (Diclofenac Sodium) 50 Mg Tablet.dr, 50 MG PO BID, (Reported) Entered as Reported by: KAY ARENAS on 01/10/21 1505 Docusate Sodium (Docusate Sodium) 100 Mg Capsule, 100 MG PO BID, (Reported) Entered as Reported by: KAY ARENAS on 11/22/19 1602 Empagliflozin (Jardiance) 10 Mg Tablet, 10 MG PO DAILY, (Reported) Entered as Reported by: KAY ARENAS on 01/10/21 1505 Famotidine (Famotidine) 20 Mg Tablet, 20 MG PO BID, (Reported) Entered as Reported by: KAY ARENAS on 12/12/20 1224 Gabapentin (Gabapentin) 600 Mg Tablet, 600 MG PO TID, (Reported) Entered as Reported by: KAY ARENAS on 02/28/19 1002 Hyoscyamine Sulfate (Levsin-Sl) 0.125 Mg Tab.subl, 0.25 MG SL Q4H Prescribed by: RAKAN VILLAGOMEZ on 06/29/21 0431 Insulin Detemir (Levemir Flextouch) 100 Unit/1 Ml Insuln.pen, 8 UNIT SQ HS Prescribed by: KAMILLE PHILLIP on 03/03/21 1316 Metoclopramide HCl (Metoclopramide HCl) 10 Mg Tablet, 10 MG PO TID, (Reported) Entered as Reported by: KAY ARENAS on 01/10/21 1505 Mirtazapine (Mirtazapine) 30 Mg Tablet, 30 MG PO HS, (Reported) Entered as Reported by: KAY ARENAS on 12/12/20 1224 Ondansetron (Ondansetron Odt) 8 Mg Tab.rapdis, 8 MG PO Q6H PRN for NAUSEA/VOMITING-1ST LINE, (Reported) Entered as Reported by: KAY ARENAS on 02/28/21 1637 Ondansetron (Ondansetron Odt) 4 Mg Tab.rapdis, 4 MG PO Q6H PRN for NAUSEA/VOMITING Prescribed by: PATRICIA BUSBY on 05/05/21 1131 Ondansetron (Ondansetron Odt) 8 Mg Tab.rapdis, 8 MG PO Q6H Prescribed by: RAKAN VILLAGOMEZ on 06/29/21 0430 Pantoprazole Sodium (Pantoprazole Sodium) 40 Mg Tablet.dr, 40 MG PO BID, (Reported) Entered as Reported by: KAY ARENAS on 02/28/19 1013 Pioglitazone HCl (Pioglitazone HCl) 45 Mg Tablet, 45 MG PO DAILY, (Reported) Entered as Reported by: KAY ARENAS on 11/22/19 1602 Promethazine HCl (Promethazine Suppository) 25 Mg Supp.rect, 25 MG RC Q6H PRN for NAUSEA/VOMITING-2ND LINE, (Reported) Entered as Reported by: KAY ARENAS on 02/28/21 1637 Promethazine HCl (Promethazine Suppository) 25 Mg Supp.rect, 25 MG RC Q6H Prescribed by: RAKAN VILLAGOMEZ on 06/29/21 0430 Propranolol HCl (Propranolol HCl) 60 Mg Tablet, 60 MG PO BID, (Reported) Entered as Reported by: KAY ARENAS on 02/28/21 163 Quetiapine Fumarate (Quetiapine Fumarate) 400 Mg Tablet, 400 MG PO HS, (Reported) Entered as Reported by: KAY ARENAS on 12/12/20 1224 Scopolamine (Transderm-Scop) 1 Each Patch.td72, 1 EA TD Q72H, (Reported) Entered as Reported by: KAY ARENAS on 02/28/21 163 Spironolactone (Spironolactone) 25 Mg Tablet, 25 MG PO DAILY, (Reported) Entered as Reported by: KAY ARENAS on 02/28/21 163 Tizanidine HCl (Tizanidine HCl) 4 Mg Tablet, 4 MG PO TID PRN for MUSCLE SPASMS, (Reported) Entered as Reported by: KAY ARENAS on 12/12/20 1224 Review of Systems Review of Systems Constitutional: No chills, No diaphoresis EENTM: No Blurred Vision, No Double Vision Respiratory: Denies Cough, Denies Orthopnea, Denies SOA at Rest Cardiovascular: Denies Chest Pain, Denies Lightheadedness Gastrointestinal: See HPI, Abdominal Pain; Denies Constipated, Denies Diarrhea; Nausea, Vomiting Genitourinary: Denies Burning, Denies Discharge Musculoskeletal: No back pain, No joint pain Skin: No pruritus, No rash Psychiatric/Neurological: Denies Anxiety, Denies Depressed All Other Systems Reviewed Negative Unless Noted: Yes Past Xaohzgy-Lyisgt-Mzylpg Hx Patient Social History Tobacco Use?: No Use of E-Cig and/or Vaping dev: No Substance use?: No Alcohol Use?: No Pt feels they are or have been: No Immunizations Up To Date Tetanus Booster (TDap): Unknown Influenza Vaccine Up-to-Date: No; Not Current First/Initial COVID19 Vaccinat: JAN Second COVID19 Vaccination Juan M: Feb COVID19 Vaccination Date: PT STATES HAS TAKEN BOTH MODERNA VACCINES Seasonal Allergies Seasonal Allergies: No Past Medical History Surgery/Hospitalization HX: DM 2, FIBROMYALGIA, ARTHRITIS IN SPINE Surgeries: Yes (EGD) Eye Surgery, Orthopedic Respiratory: Yes Asthma, Pneumonia Currently Using CPAP: No Currently Using BIPAP: No Cardiac: Yes Coronary Artery Disease, High Cholesterol, Hypertension Neurological: Yes Headaches /Migraines 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 Disorders: No Female 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 Disorders: Denies [employer]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 Sexually Transmitted Disease: No Genitourinary: Yes Kidney Infection, Kidney Stones, Renal Failure Gastrointestinal: Yes Gastroesophageal Reflux, Hiatal Hernia, Ulcer Musculoskeletal: Yes Fibromyalgia Endocrine: Yes Diabetes, Insulin dep HEENT: Yes Loss of Vision: Denies Hearing Impairment: Denies Cancer: No Psychosocial: Yes ADD/ADHD, Sleep Difficulties, Anxiety, Depression Integumentary: No Blood Disorders: No Adverse Reaction/Blood Tranf: No Family Medical History Hypertension 19 FATHER Hypertension Physical Exam Vital Signs Vital Signs - First Documented 07/12/21 05:52 Temp 36.7 Pulse 101 Resp 18 B/P (MAP) 138/115 (123) Pulse Ox 92 O2 Delivery Room Air Capillary Refill : Less Than 3 Seconds Height/Weight/BMI Height: 5'3.00" Weight: 240lbs. 2.0oz. 108.312884ot; 44.00 BMI Method:Stated General Appearance: WD/WN, no apparent distress HEENT: PERRL/EOMI, pharynx normal Neck: full range of motion, supple, normal inspection Respiratory: lungs clear, normal breath sounds, no respiratory distress, no accessory muscle use Cardiovascular: normal peripheral pulses, regular rate, rhythm Gastrointestinal: normal bowel sounds, non tender, soft Extremities: non-tender, normal inspection, normal capillary refill Neurologic/Psychiatric: alert, normal mood/affect, oriented x 3 Skin: normal color, warm/dry Progress/Results/Core Measures Results/Orders My Orders Orders - LUÍS RITCHIE Dicyclomine Injection (Bentyl Injection) (07/12/21 06:15) Dicyclomine Injection (Bentyl Injection) (07/12/21 06:15) Ondansetron Oral Dissolve Tab (Zofran (07/12/21 06:12) Diphenhydramine Injection (Benadryl Inje (07/12/21 06:15) Antacid Suspension (Mylanta Suspension (07/12/21 07:15) Metoclopramide Tablet (Reglan Tablet) (07/12/21 07:15) Droperidol Inj (Ed Only) (Inapsine Inj ( (07/12/21 08:30) Medications Given in ED Current Medications Medications Dose Ordered Sig/Kate Route Start Time Stop Time Status Last Admin Dose Admin Al Hydrox/Mg Hydrox/Simethicone 30 ml ONCE ONCE PO 07/12/21 07:15 07/12/21 07:16 DC 07/12/21 07:17 30 ML Dicyclomine HCl 20 mg ONCE ONCE IM 07/12/21 06:15 07/12/21 06:16 DC 07/12/21 06:24 20 MG Diphenhydramine HCl 25 mg ONCE ONCE IM 07/12/21 06:15 07/12/21 06:17 DC 07/12/21 06:24 25 MG Metoclopramide HCl 10 mg ONCE ONCE PO 07/12/21 07:15 07/12/21 07:16 DC 07/12/21 07:38 10 MG Vital Signs/I&O 07/12/21 07/12/21 05:52 07:50 Temp 36.7 Pulse 101 100 Resp 18 18 B/P (MAP) 138/115 (123) 146/92 Pulse Ox 92 99 O2 Delivery Room Air Room Air Blood Pressure Mean: 123 Progress Progress Note #1: Time: 06:21 Progress Note Dicyclomine and Benadryl. 2 tablets of ondansetron. She appears well-hydrated and has normal vital signs. If she has persistent abdominal pain after this we can give her a GI cocktail. Patient was here and had work-up on the , a week ago for the same symptoms. Will take a balance, conservative approach and encourage her to continue her follow-up with her primary care doctor. Progress Note #2: Time: 07:07 Progress Note The patient has had no vomiting or retching since she has been here. She has been on her phone watching a show. She states her nausea is no better. We will give her a dose of Reglan and some Maalox. Progress Note #3: Time: 08:23 Progress Note The patient states the Maalox did help her stomach pain a little. She also noted her nausea is a little better but not completely better. She supposed to be starting domperidone by Dr. Kan, GI. She does not have the medication yet. Deanna give her a shot of droperidol to see if this will help since we do not have domperidone on formulary. She continues to not having active retching. She has a follow-up appointment in 5 days with her primary care provider. Departure Impression Primary Impression: Abdominal pain Qualified Codes: R10.13 - Epigastric pain Additional Impression: Gastroparesis due to DM Disposition: HOME, SELF-CARE Condition: Stable Departure-Patient Inst. Decision time for Depature: 08:24 Referrals: [facility] (PCP) Primary Care Physician ALISON STAPLES (Family) Primary Care Physician Patient Instructions: Severe Abdominal Pain, Adult (DC), Gastroparesis (Delayed Gastric Emptying) Add. Discharge Instructions: Drink plenty of fluids and advance your diet as tolerated. Resume taking your medications. Follow-up with your primary care doctor. Return to the ER for fever above 102.5, difficulty breathing or other worrisome symptoms. All discharge instructions reviewed with patient and/or family. Voiced understanding. LUÍS RITCHIE Jul 12, 2021 06:15
[2021-07-12] MEDS ORDERED: METOCLOPRAMIDE 10 MG (REGLAN) TAB PO ONE (07:15)
[2021-07-12] MEDS ORDERED: ANTACID SUSP 30 ML UDC (MYLANTA) PO ONE (07:15)
[2021-07-12] MEDS ORDERED: diphenhydrAMINE 25 MG TAB (BENADRYL) PO ONE (08:30)
[2021-07-12] MEDS ORDERED: DROPERIDOL 5 MG/2 ML (INAPSINE) ED ONLY! IM ONE (08:30)
[2021-07-12 08:59] VITALS: BP 165/79
== END 2021-07-12 08:59 | disposition home or self-care (01) ==
LOC: EDUNIT# 05:50 → ER 05:51
DX: E11.43 Type 2 diabetes mellitus with diabetic autonomic (poly)neuropathy (principal); K31.84 Gastroparesis; K21.9 Gastro-esophageal reflux disease without esophagitis; J45.909 Unspecified asthma, uncomplicated; I10 Essential (primary) hypertension; E78.00 Pure hypercholesterolemia, unspecified; I25.10 Atherosclerotic heart disease of native coronary artery without angina pectoris; F41.9 Anxiety disorder, unspecified; F32.9 Major depressive disorder, single episode, unspecified; Z79.899 Other long term (current) drug therapy; Z79.4 Long term (current) use of insulin
CPT/HCPCS: 99284

== ENCOUNTER 2021-07-12 23:49 | Emergency (ER) | payer MEDICARE, MEDICAID ==
[~2021-07-12] VITALS: Ht 160 cm; Wt 114.1 kg
[2021-07-12 23:50] VITALS: BP 137/108
[2021-07-13] MEDS ORDERED: DICYCLOMINE 10 MG/ML (BENTYL) 2 ML AMP IM STA (00:16)
--- NOTE | 2021-07-13 00:21 | ED Abdominal Pain ---
General Chief Complaint: Abdominal/GI Problems Stated Complaint: ABD PAIN Nursing Triage Note: Arrives per EMS w/ c/o abdominal pain. Lifted to stretcher w/ patient stating "I hurt to bad to move over." Attached to NIBP and SpO2 monitors. Pt was seen in ED for same c/o earlier this a.m. Source of Information: Patient Exam Limitations: No Limitations History of Present Illness Date Seen by Provider: Jul 13, 2021 Time Seen by Provider: 00:05 Initial Comments Patient is a 51-year-old female well-known to this emergency department chronic abdominal pain, chronic nausea and vomiting who was seen in this emergency department approximately 18 hours ago with the exact same symptoms. Patient states that she went home and took her Pepcid as well as some Zofran, last doses of any medication she took about 1 PM this afternoon. Patient states she is continued to have periumbilical pain that is nonradiating. She is nauseous and states that she is only able to hold down sips of fluids every few minutes. She has diagnosed gastroparesis, she is a diabetic. She has mental health issues. She called an ambulance tonight because she just could not get any relief of her nausea and vomiting she states that she has been constipated for the last 3 days, has MiraLAX at home but she does not take it because it does not work. Denies black or bloody stools. Urinated just prior to calling the ambulance at home. No burning with urination, increased frequency/urgency. No other complaints of recent illness or injury. All other review of systems reviewed and negative except as stated. Timing/Duration: Other (Chronic) Severity/Quality: Moderate Location: Periumbilical Radiation: No Radiation Activities at Onset: None Associated Symptoms: Nausea/Vomiting, Weakness Allergies and Home Medications Allergies Coded Allergies: lisinopril (Verified Allergy, Mild, COUGH, 02/28/21) doxycycline (Verified Allergy, Unknown, 03/03/21) Nausea and vomiting montelukast (Verified Allergy, Unknown, UNABLE TO REMEMBER REACTION, 02/28/21) Uncoded Allergies: METALS (Allergy, Unknown, 07/12/14) Patient Home Medication List Home Medication List Reviewed: Yes Atorvastatin Calcium (Atorvastatin Calcium) 10 Mg Tablet, 10 MG PO HS, (Reported) Entered as Reported by: KAY ARENAS on 12/12/20 1224 Desvenlafaxine Succinate (Desvenlafaxine Succinate ER) 100 Mg Tab.er.24h, 100 MG PO DAILY, (Reported) Entered as Reported by: KAY ARENAS on 12/12/20 1224 Diclofenac Sodium (Diclofenac Sodium) 50 Mg Tablet.dr, 50 MG PO BID, (Reported) Entered as Reported by: KAY ARENAS on 01/10/21 1505 Docusate Sodium (Docusate Sodium) 100 Mg Capsule, 100 MG PO BID, (Reported) Entered as Reported by: KAY ARENAS on 11/22/19 1602 Empagliflozin (Jardiance) 10 Mg Tablet, 10 MG PO DAILY, (Reported) Entered as Reported by: KAY ARENAS on 01/10/21 1505 Famotidine (Famotidine) 20 Mg Tablet, 20 MG PO BID, (Reported) Entered as Reported by: KAY ARENAS on 12/12/20 1224 Gabapentin (Gabapentin) 600 Mg Tablet, 600 MG PO TID, (Reported) Entered as Reported by: KAY ARENAS on 02/28/19 1002 Hyoscyamine Sulfate (Levsin-Sl) 0.125 Mg Tab.subl, 0.25 MG SL Q4H Prescribed by: RAKAN VILLAGOMEZ on 06/29/21 0431 Insulin Detemir (Levemir Flextouch) 100 Unit/1 Ml Insuln.pen, 8 UNIT SQ HS Prescribed by: KAMILLE PHILLIP on 03/03/21 1316 Metoclopramide HCl (Metoclopramide HCl) 10 Mg Tablet, 10 MG PO TID, (Reported) Entered as Reported by: KAY ARENAS on 01/10/21 1505 Mirtazapine (Mirtazapine) 30 Mg Tablet, 30 MG PO HS, (Reported) Entered as Reported by: KAY ARENAS on 12/12/20 1224 Ondansetron (Ondansetron Odt) 8 Mg Tab.rapdis, 8 MG PO Q6H PRN for NAUSEA/VOMI TING-1ST LINE, (Reported) Entered as Reported by: KAY ARENAS on 02/28/21 1637 Ondansetron (Ondansetron Odt) 4 Mg Tab.rapdis, 4 MG PO Q6H PRN for NAUSEA/VOMITING Prescribed by: PATRICIA BUSBY on 05/05/21 1131 Ondansetron (Ondansetron Odt) 8 Mg Tab.rapdis, 8 MG PO Q6H Prescribed by: RAKAN VILLAGOMEZ on 06/29/21 0430 Pantoprazole Sodium (Pantoprazole Sodium) 40 Mg Tablet.dr, 40 MG PO BID, (Repor jessa) Entered as Reported by: KAY ARENAS on 02/28/19 1013 Pioglitazone HCl (Pioglitazone HCl) 45 Mg Tablet, 45 MG PO DAILY, (Reported) Entered as Reported by: KAY ARENAS on 11/22/19 1602 Promethazine HCl (Promethazine Suppository) 25 Mg Supp.rect, 25 MG RC Q6H PRN for NAUSEA/VOMITING-2ND LINE, (Reported) Entered as Reported by: KAY ARENAS on 02/28/21 1637 Promethazine HCl (Promethazine Suppository) 25 Mg Supp.rect, 25 MG RC Q6H Prescribed by: RAKAN VILLAGOMEZ on 06/29/21 0430 Propranolol HCl (Propranolol HCl) 60 Mg Tablet, 60 MG PO BID, (Reported) Entered as Reported by: KAY ARENAS on 02/28/21 1637 Quetiapine Fumarate (Quetiapine Fumarate) 400 Mg Tablet, 400 MG PO HS, (Reported) Entered as Reported by: KAY ARENAS on 12/12/20 1224 Scopolamine (Transderm-Scop) 1 Each Patch.td72, 1 EA TD Q72H, (Reported) Entered as Reported by: KAY ARENAS on 02/28/21 1637 Spironolactone (Spironolactone) 25 Mg Tablet, 25 MG PO DAILY, (Reported) Entered as Reported by: KAY ARENAS on 02/28/21 1637 Tizanidine HCl (Tizanidine HCl) 4 Mg Tablet, 4 MG PO TID PRN for MUSCLE SPASMS, (Reported) Entered as Reported by: KAY ARENAS on 12/12/20 1224 Review of Systems Review of Systems Constitutional: see HPI EENTM: No Symptoms Reported Respiratory: No Symptoms Reported Cardiovascular: No Symptoms Reported Gastrointestinal: Abdominal Pain, Constipated, Nausea, Vomiting Genitourinary: No Symptoms Reported Musculoskeletal: no symptoms reported Skin: no symptoms reported Psychiatric/Neurological: Anxiety All Other Systems Reviewed Negative Unless Noted: Yes Past Xfhdvfw-Ehmnqr-Ywgsjw Hx Immunizations Up To Date Tetanus Booster (TDap): Unknown First/Initial COVID19 Vaccinat: JAN Second COVID19 Vaccination Juan M: FEB Third COVID19 Vaccination Date: PT STATES HAS TAKEN BOTH MODERNA VACCINES Seasonal Allergies Seasonal Allergies: No Past Medical History Surgery/Hospitalization HX: DM 2, FIBROMYALGIA, ARTHRITIS IN SPINE Surgeries: Yes (EGD) Eye Surgery, Orthopedic Respiratory: Yes Asthma, Pneumonia Currently Using CPAP: No Currently Using BIPAP: No Cardiac: Yes Coronary Artery Disease, High Cholesterol, Hypertension Neurological: Yes Headaches /Migraines 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 Disorders: No Female 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 Disorders: Denies 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 Sexually Transmitted Disease: No Genitourinary: Yes Kidney Infection, Kidney Stones, Renal Failure Gastrointestinal: Yes Gastroesophageal Reflux, Hiatal Hernia, Ulcer Musculoskeletal: Yes Fibromyalgia Endocrine: Yes Diabetes, Insulin dep HEENT: Yes Loss of Vision: Denies Hearing Impairment: Denies Cancer: No Psychosocial: Yes ADD/ADHD, Sleep Difficulties, Anxiety, Depression Integumentary: No Blood Disorders: No Adverse Reaction/Blood Tranf: No Family Medical History Hypertension 19 FATHER Hypertension Physical Exam Vital Signs Vital Signs - First Documented 07/12/21 23:50 Temp 35.5 Pulse 116 Resp 22 B/P (MAP) 137/108 (118) Pulse Ox 98 O2 Delivery Room Air Capillary Refill : Height/Weight/BMI Height: 5'3.00" Weight: 240lbs. 2.0oz. [id number]; 44.00 BMI Method:Stated General Appearance: WD/WN, mild distress HEENT: PERRL/EOMI Neck: normal inspection Respiratory: lungs clear, normal breath sounds, no respiratory distress, no accessory muscle use Cardiovascular: regular rate, rhythm Gastrointestinal: soft, tenderness (Very minimal/mild tenderness just above the umbilicus. Abdomen is otherwise soft and nondistended. Normal bowel sounds.) Extremities: normal range of motion, non-tender, normal inspection, no pedal edema, no calf tenderness, normal capillary refill Neurologic/Psychiatric: alert, normal mood/affect, oriented x 3, other (Tearful/anxious) Skin: normal color, warm/dry, other (Multiple superficial abrasions/scratches to the anterior abdominal wallpatient states from her cats) Progress/Results/Core Measures Results/Orders Lab Results Laboratory Tests Test 07/13/21 00:30 Range/Units Sodium Level 139 135-145 MMOL/L Potassium Level 3.6 3.6-5.0 MMOL/L Chloride Level 103 98-107 MMOL/L Carbon Dioxide Level 16 L 21-32 MMOL/L Anion Gap 20 H 5-14 MMOL/L Blood Urea Nitrogen 14 7-18 MG/DL Creatinine 1.36 H 0.60-1.30 MG/DL Estimat Glomerular Filtration Rate 47 BUN/Creatinine Ratio 10 Glucose Level 287 H 70-105 MG/DL Calcium Level 10.0 8.5-10.1 MG/DL My Orders Orders - PATRICIA BUSBY MD Ed Iv/Invasive Line Start (07/13/21 00:16) Basic Metabolic Panel (07/13/21 00:16) Metoclopramide Injection (Reglan Injecti (07/13/21 00:30) Diphenhydramine Injection (Benadryl Inje (07/13/21 00:30) Diphenhydramine Tablet (Benadryl Tablet) (07/13/21 00:30) Dicyclomine Injection (Bentyl Injection) (07/13/21 00:16) Ns Iv 1000 Ml (Sodium Chloride 0.9%) (07/13/21 00:30) Ns Iv 1000 Ml (Sodium Chloride 0.9%) (07/13/21 02:00) Ns Iv 1000 Ml (Sodium Chloride 0.9%) (07/13/21 01:47) Medications Given in ED Current Medications Medications Dose Ordered Sig/Kate Route Start Time Stop Time Status Last Admin Dose Admin Diphenhydramine HCl 25 mg ONCE ONCE IVP 07/13/21 00:30 07/13/21 00:31 DC 07/13/21 00:44 25 MG Diphenhydramine HCl 25 mg ONCE ONCE PO 07/13/21 00:30 07/13/21 00:31 DC 07/13/21 01:01 25 MG Metoclopramide HCl 10 mg ONCE ONCE IVP 07/13/21 00:30 07/13/21 00:31 DC 07/13/21 00:47 10 MG Sodium Chloride 1,000 ml @ ud STK-MED ONCE .ROUTE 07/13/21 01:47 07/13/21 01:51 DC 07/13/21 02:01 1,000 MLS/HR Vital Signs/I&O 07/12/21 23:50 Temp 35.5 Pulse 116 Resp 22 B/P (MAP) 137/108 (118) Pulse Ox 98 O2 Delivery Room Air 2 Blood Pressure Mean: 118 Progress Progress Note #1: Time: 01:50 Progress Note Reassessed after fluids, Reglan, Benadryl, dicyclomine. She states she still nauseated. She declines any water. I reviewed her chemistry. She has a quite depressed CO2 at 16. BUN is up a little bit. Creatinine is up a little bit. We will add a second liter of fluids. I really do not want to give her any Toradol secondary to her slightly increased creatinine. May give her a dose of tramadol. I do not believe based on physical examination/clinical picture that she has any acute surgical pathology. I do not think that she needs repeat CT. Will see if another dose of IV fluids will help curb her symptoms. Progress Note #2: Time: 03:00 Progress Note rechecked - feeling much better. VSS. She had bent her wrist and her fluids weren't running so we straightened that out - will give her about 30 more minutes to get about 500ml more in and then d/c to home. Departure Impression Primary Impression: Chronic generalized abdominal pain Additional Impression: Nausea and vomiting Qualified Codes: R11.2 - Nausea with vomiting, unspecified Disposition: 01 HOME, SELF-CARE Condition: Stable Departure-Patient Inst. Decision time for Depature: 03:02 Referrals: [facility]/SARAH (PCP) Primary Care Physician ALISON STAPLES (Family) Primary Care Physician Patient Instructions: Chronic Pain (DC) Add. Discharge Instructions: continue to sip on fluids to stay well hydrated. Take your medications for pain and nausea DIRECTED every 6-8 hours. Follow up with your primary care doctor on Thursday. Return to the Emergency Department for any fever over 101.5, vomiting blood or passing blood in your stool or any other emergent medical condition. Copy Copies To 1: STANFORD CAAL KATHRYN M MD Jul 13, 2021 00:20
[2021-07-13] MEDS ORDERED: diphenhydrAMINE 50 MG/ML INJ (BENADRYL) IVP ONE (00:30)
[2021-07-13] MEDS ORDERED: NS IV 1000 ML 1,000 ML IV SCH ×2 (00:30→02:00)
[2021-07-13] MEDS ORDERED: METOCLOPRAMIDE INJ 10 MG/2 ML (REGLAN) IVP ONE (00:30)
[2021-07-13] MEDS ORDERED: diphenhydrAMINE 25 MG TAB (BENADRYL) PO ONE (00:30)
[2021-07-13 00:55] LABS: POTASSIUM 3.6 MMOL/L (3.6-5.0)
[2021-07-13 01:00] LABS: CREATININE SERUM 1.36 MG/DL (0.60-1.30)
[2021-07-13] MEDS ORDERED: NS IV 1000 ML 1,000 ML ONE (01:47)
== END 2021-07-13 03:53 | disposition home or self-care (01) ==
LOC: EDUNIT# 23:49 → ER 23:52
DX: G89.29 Other chronic pain (principal); R10.84 Generalized abdominal pain; R11.2 Nausea with vomiting, unspecified; I10 Essential (primary) hypertension; J45.909 Unspecified asthma, uncomplicated; I25.10 Atherosclerotic heart disease of native coronary artery without angina pectoris; E78.00 Pure hypercholesterolemia, unspecified; K21.9 Gastro-esophageal reflux disease without esophagitis; F41.9 Anxiety disorder, unspecified; F32.9 Major depressive disorder, single episode, unspecified; E11.9 Type 2 diabetes mellitus without complications; Z79.4 Long term (current) use of insulin; Z79.899 Other long term (current) drug therapy
CPT/HCPCS: 36415; 80048

== ENCOUNTER 2021-07-13 07:30 | Observation (INO) | payer MEDICARE, MEDICAID ==
[2021-07-13 08:15] LABS: BASOPHILS # (AUTO) 0.1 10^3/uL (0.0-0.1); BASOPHILS % (AUTO) 1 % (0-10); EOSINOPHILS # (AUTO) 0.2 10^3/uL (0.0-0.3); EOSINOPHILS % (AUTO) 2 % (0-10); HEMATOCRIT 40 % (35-52); HEMOGLOBIN 12.3 g/dL (11.5-16.0); LYMPHOCYTES # (AUTO) 1.8 10^3/uL (1.0-4.0); LYMPHOCYTES % (AUTO) 18 % (12-44); MEAN CORPUSCULAR HEMOGLOBIN 25 pg (25-34); MEAN CORPUSCULAR HGB CONC 31 g/dL (32-36); MEAN CORPUSCULAR VOLUME 79 fL (80-99); MEAN PLATELET VOLUME 11.2 fL (9.0-12.2); MONOCYTES # (AUTO) 0.6 10^3/uL (0.0-1.0); MONOCYTES % (AUTO) 6 % (0-12); NEUTROPHILS # (AUTO) 7.1 10^3/uL (1.8-7.8); NEUTROPHILS % (AUTO) 73 % (42-75); PLATELET COUNT 311 10^3/uL (130-400); WHITE BLOOD COUNT 9.7 10^3/uL (4.3-11.0)
[2021-07-13 08:26] LABS: ALBUMIN 4.4 GM/DL (3.2-4.5); POTASSIUM 3.9 MMOL/L (3.6-5.0)
[2021-07-13 08:27] LABS: CALCIUM 9.3 MG/DL (8.5-10.1)
[2021-07-13 08:29] LABS: TOTAL PROTEIN 8.2 GM/DL (6.4-8.2)
[2021-07-13 08:30] LABS: BILIRUBIN,TOTAL 0.7 MG/DL (0.1-1.0)
--- NOTE | 2021-07-13 08:31 | ED Abdominal Pain ---
General Chief Complaint: Abdominal/GI Problems Stated Complaint: ABD PAIN Nursing Triage Note: PT TO ER BY [facility] WITH C/O UPPER ABD PAIN AND VOMITTING. PT HAS BEEN SEEN HERE TWICE YESTERDAY FOR THE SAME COMPLAINT. PT SAID SHE LAST TOOK HER ORAL ZOFRAN AT 0630 Source of Information: Patient, EMS, Old Records Exam Limitations: No Limitations History of Present Illness Date Seen by Provider: Jul 13, 2021 Time Seen by Provider: 07:35 Initial Comments This 51-year-old woman presents to the emergency room via EMS for the third time in about 24 hours. She complains of abdominal pain and vomiting. She just left the ER a few hours ago. She reportedly has history of gastroparesis and hiatal hernia and is awaiting receipt of a prescription for domperidone. This medication is not available in the [place] and she is waiting to receive it from [place]. She does take regular doses of Reglan. She last had Reglan by IV route around 0100 in the ER. She took her Zofran at home around 0600. She describes persistent nausea and upper abdominal pain despite these treatments. She has continued to produce a bowel movements. 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 Allergies and Home Medications Allergies Coded Allergies: lisinopril (Verified Allergy, Mild, COUGH, 02/28/21) doxycycline (Verified Allergy, Unknown, 03/03/21) Nausea and vomiting montelukast (Verified Allergy, Unknown, UNABLE TO REMEMBER REACTION, 02/28/21) Uncoded Allergies: METALS (Allergy, Unknown, 07/12/14) Patient Home Medication List Home Medication List Reviewed: Yes Atorvastatin Calcium (Atorvastatin Calcium) 10 Mg Tablet, 10 MG PO HS, (Reported) Entered as Reported by: KAY ARENAS on 12/12/20 1224 Desvenlafaxine Succinate (Desvenlafaxine Succinate ER) 100 Mg Tab.er.24h, 100 MG PO DAILY, (Reported) Entered as Reported by: KAY ARENAS on 12/12/20 1224 Diclofenac Sodium (Diclofenac Sodium) 50 Mg Tablet.dr, 50 MG PO BID, (Reported) Entered as Reported by: KAY ARENAS on 01/10/21 1505 Docusate Sodium (Docusate Sodium) 100 Mg Capsule, 100 MG PO BID, (Reported) Entered as Reported by: KAY ARENAS on 11/22/19 1602 Empagliflozin (Jardiance) 10 Mg Tablet, 10 MG PO DAILY, (Reported) Entered as Reported by: KAY ARENAS on 01/10/21 1505 Famotidine (Famotidine) 20 Mg Tablet, 20 MG PO BID, (Reported) Entered as Reported by: KAY ARENAS on 12/12/20 1224 Gabapentin (Gabapentin) 600 Mg Tablet, 600 MG PO TID, (Reported) Entered as Reported by: KAY ARENAS on 02/28/19 1002 Hyoscyamine Sulfate (Levsin-Sl) 0.125 Mg Tab.subl, 0.25 MG SL Q4H Prescribed by: RAKAN VILLAGOMEZ on 06/29/21 0431 Insulin Detemir (Levemir Flextouch) 100 Unit/1 Ml Insuln.pen, 8 UNIT SQ HS Prescribed by: KAMILLE PHILLIP on 03/03/21 1316 Metoclopramide HCl (Metoclopramide HCl) 10 Mg Tablet, 10 MG PO TID, (Reported) Entered as Reported by: KAY ARENAS on 01/10/21 1505 Mirtazapine (Mirtazapine) 30 Mg Tablet, 30 MG PO HS, (Reported) Entered as Reported by: KAY ARENAS on 12/12/20 1224 Ondansetron (Ondansetron Odt) 8 Mg Tab.rapdis, 8 MG PO Q6H PRN for NAUSEA/VOMITING-1ST LINE, (Reported) Entered as Reported by: KAY ARENAS on 02/28/21 1637 Ondansetron (Ondansetron Odt) 4 Mg Tab.rapdis, 4 MG PO Q6H PRN for NAUSEA/VOMITING Prescribed by: PATRICIA BUSBY on 05/05/21 1131 Ondansetron (Ondansetron Odt) 8 Mg Tab.rapdis, 8 MG PO Q6H Prescribed by: RAKAN VILLAGOMEZ on 06/29/21 0430 Pantoprazole Sodium (Pantoprazole Sodium) 40 Mg Tablet.dr, 40 MG PO BID, (Reported) Entered as Reported by: KAY ARENAS on 02/28/19 1013 Pioglitazone HCl (Pioglitazone HCl) 45 Mg Tablet, 45 MG PO DAILY, (Reported) Entered as Reported by: KAY ARENAS on 11/22/19 1602 Promethazine HCl (Promethazine Suppository) 25 Mg Supp.rect, 25 MG RC Q6H PRN for NAUSEA/VOMITING-2ND LINE, (Reported) Entered as Reported by: KAY ARENAS on 02/28/21 163 Promethazine HCl (Promethazine Suppository) 25 Mg Supp.rect, 25 MG RC Q6H Prescribed by: RAKAN VILLAGOMEZ on 06/29/21 0430 Propranolol HCl (Propranolol HCl) 60 Mg Tablet, 60 MG PO BID, (Reported) Entered as Reported by: KAY ARENAS on 02/28/21 163 Quetiapine Fumarate (Quetiapine Fumarate) 400 Mg Tablet, 400 MG PO HS, (Reported) Entered as Reported by: KAY ARENAS on 12/12/20 1224 Scopolamine (Transderm-Scop) 1 Each Patch.td72, 1 EA TD Q72H, (Reported) Entered as Reported by: KAY ARENAS on 02/28/21 163 Spironolactone (Spironolactone) 25 Mg Tablet, 25 MG PO DAILY, (Reported) Entered as Reported by: KAY ARENAS on 02/28/21 1637 Tizanidine HCl (Tizanidine HCl) 4 Mg Tablet, 4 MG PO TID PRN for MUSCLE SPASMS, (Reported) Entered as Reported by: KAY ARENAS on 12/12/20 1224 Review of Systems Review of Systems Constitutional: no symptoms reported EENTM: No Symptoms Reported Respiratory: No Symptoms Reported Cardiovascular: No Symptoms Reported Gastrointestinal: See HPI Genitourinary: No Symptoms Reported Musculoskeletal: no symptoms reported Skin: no symptoms reported Psychiatric/Neurological: No Symptoms Reported Endocrine: No Symptoms Reported Hematologic/Lymphatic: No Symptoms Reported Past Vsetqld-Nhuevi-Wsmggb Hx Patient Social History Tobacco Use?: No Substance use?: No Alcohol Use?: No Pt feels they are or have been: No Immunizations Up To Date Tetanus Booster (TDap): Unknown First/Initial COVID19 Vaccinat: JAN Second COVID19 Vaccination Juan M: Feb COVID19 Vaccination Date: PT STATES HAS TAKEN BOTH MODERNA VACCINES Seasonal Allergies Seasonal Allergies: No Past Medical History Surgery/Hospitalization HX: DM 2, FIBROMYALGIA, ARTHRITIS IN SPINE Surgeries: Yes (EGD) Eye Surgery, Orthopedic Respiratory: Yes Asthma, Pneumonia Currently Using CPAP: No Currently Using BIPAP: No Cardiac: Yes Coronary Artery Disease, High Cholesterol, Hypertension Neurological: Yes Headaches /Migraines 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 Disorders: No Female 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 Disorders: Denies 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 Sexually Transmitted Disease: No Genitourinary: Yes Kidney Infection, Kidney Stones, Renal Failure Gastrointestinal: Yes (Gastroparesis) Gastroesophageal Reflux, Hiatal Hernia, Ulcer Musculoskeletal: Yes Fibromyalgia Endocrine: Yes Diabetes, Insulin dep HEENT: Yes Loss of Vision: Denies Hearing Impairment: Denies Cancer: No Psychosocial: Yes ADD/ADHD, Sleep Difficulties, Anxiety, Depression Integumentary: No Blood Disorders: No Adverse Reaction/Blood Tranf: No Family Medical History Hypertension 19 FATHER Hypertension Physical Exam Vital Signs Vital Signs - First Documented 07/13/21 07:33 Temp 36.7 Pulse 112 Resp 18 B/P (MAP) 157/97 (117) Pulse Ox 97 O2 Delivery Room Air Capillary Refill : Height/Weight/BMI Height: 5'3.00" Weight: 240lbs. 2.0oz. 108.175977mq; 44.00 BMI Method:Stated General Appearance: WD/WN, moderate distress, obese HEENT: PERRL/EOMI, normal ENT inspection Neck: normal inspection Respiratory: lungs clear, normal breath sounds, no respiratory distress Cardiovascular: regular rate, rhythm, no edema, no murmur Gastrointestinal: soft, abnormal bowel sounds (Decrease), tenderness (Across the upper abdomen and more tender in the epigastrium) Extremities: normal inspection, no pedal edema Neurologic/Psychiatric: alert, normal mood/affect, oriented x 3 Skin: normal color, warm/dry Progress/Results/Core Measures Results/Orders Lab Results Laboratory Tests Test 07/13/21 07:50 07/13/21 08:08 Range/Units Urine Color YELLOW Urine Clarity SL CLOUDY Urine pH 5.5 5-9 Urine Specific [place] 1.025 H 1.016-1.022 Urine Protein NEGATIVE NEGATIVE Urine Glucose (UA) 3+ H NEGATIVE Urine Ketones 1+ H NEGATIVE Urine Nitrite NEGATIVE NEGATIVE Urine Bilirubin NEGATIVE NEGATIVE Urine Urobilinogen 0.2 < = 1.0 MG/DL Urine Leukocyte Esterase NEGATIVE NEGATIVE Urine RBC (Auto) TRACE-I H NEGATIVE Urine RBC NONE /HPF Urine WBC 5-10 H /HPF Urine Squamous Epithelial Cells 0-2 /HPF Urine Crystals NONE /LPF Urine Bacteria TRACE /HPF Urine Casts NONE /LPF Urine Mucus NEGATIVE /LPF Urine Yeast FEW H /HPF Urine Culture Indicated YES White Blood Count 9.7 4.3-11.0 10^3/uL Red Blood Count 5.00 3.80-5.11 10^6/uL Hemoglobin 12.3 11.5-16.0 g/dL Hematocrit 40 35-52 % Mean Corpuscular Volume 79 L 80-99 fL Mean Corpuscular Hemoglobin 25 25-34 pg Mean Corpuscular Hemoglobin Concent 31 L 32-36 g/dL Red Cell Distribution Width 16.9 H 10.0-14.5 % Platelet Count 311 130-400 10^3/uL Mean Platelet Volume 11.2 9.0-12.2 fL Immature Granulocyte % (Auto) 0 % Neutrophils (%) (Auto) 73 42-75 % Lymphocytes (%) (Auto) 18 12-44 % Monocytes (%) (Auto) 6 0-12 % Eosinophils (%) (Auto) 2 0-10 % Basophils (%) (Auto) 1 0-10 % Neutrophils # (Auto) 7.1 1.8-7.8 10^3/uL Lymphocytes # (Auto) 1.8 1.0-4.0 10^3/uL Monocytes # (Auto) 0.6 0.0-1.0 10^3/uL Eosinophils # (Auto) 0.2 0.0-0.3 10^3/uL Basophils # (Auto) 0.1 0.0-0.1 10^3/uL Immature Granulocyte # (Auto) 0.0 0.0-0.1 10^3/uL Sodium Level 140 135-145 MMOL/L Potassium Level 3.9 3.6-5.0 MMOL/L Chloride Level 107 98-107 MMOL/L Carbon Dioxide Level 18 L 21-32 MMOL/L Anion Gap 15 H 5-14 MMOL/L Blood Urea Nitrogen 12 7-18 MG/DL Creatinine 1.22 0.60-1.30 MG/DL Estimat Glomerular Filtration Rate 53 BUN/Creatinine Ratio 10 Glucose Level 264 H 70-105 MG/DL Calcium Level 9.3 8.5-10.1 MG/DL Corrected Calcium 9.0 8.5-10.1 MG/DL Magnesium Level 2.2 1.6-2.4 MG/DL Total Bilirubin 0.7 0.1-1.0 MG/DL Aspartate Amino Transf (AST/SGOT) 22 5-34 U/L Alanine Aminotransferase (ALT/SGPT) 34 0-55 U/L Alkaline Phosphatase 66 40-136 U/L C-Reactive Protein High Sensitivity 1.71 H 0.00-0.50 MG/DL Total Protein 8.2 6.4-8.2 GM/DL Albumin 4.4 3.2-4.5 GM/DL Lipase 16 8-78 U/L Serum Test, Qualitative NEGATIVE NEGATIVE My Orders Orders - LENNY BOYKIN MD Cbc With Automated Diff (07/13/21 07:44) Comprehensive Metabolic Panel (07/13/21 07:44) Hs C Reactive Protein (07/13/21 07:44) Hcg,Qualitative Serum (07/13/21 07:44) Lipase (07/13/21 07:44) Magnesium (07/13/21 07:44) Ed Iv/Invasive Line Start (07/13/21 07:44) Abdomen, Flat & Upright/Decub (07/13/21 07:44) Ua Culture If Indicated (07/13/21 08:31) Scopolamine Patch (Transderm-Scop Patch) (07/13/21 08:45) Promethazine Injection (Phenergan Injec (07/13/21 08:45) Lidocaine 2% Viscous 15 Ml (Xylocaine Vi (07/13/21 08:45) Antacid Suspension (Mylanta Suspension (07/13/21 08:45) Famotidine Injection (Pepcid Injection) (07/13/21 08:45) Urine Culture (07/13/21 07:50) Haloperidol Injection (Haldol Injectio (07/13/21 10:45) Ekg Tracing (07/13/21 10:36) Monitor-Rhythm Ecg Trace Only (07/13/21 10:36) Medications Given in ED Current Medications Medications Dose Ordered Sig/Kate Route Start Time Stop Time Status Last Admin Dose Admin Al Hydrox/Mg Hydrox/Simethicone 30 ml ONCE ONCE PO 07/13/21 08:45 07/13/21 08:46 DC 07/13/21 08:50 30 ML Haloperidol Lactate 1 mg ONCE ONCE IV 07/13/21 10:45 07/13/21 10:46 DC 07/13/21 10:57 1 MG Lidocaine HCl 15 ml ONCE ONCE PO 07/13/21 08:45 07/13/21 08:46 DC 07/13/21 08:50 15 ML Promethazine HCl 25 mg ONCE ONCE IVP 07/13/21 08:45 07/13/21 08:46 DC 07/13/21 08:49 25 MG Scopolamine 1.5 mg ONCE ONCE TD 07/13/21 08:45 07/13/21 08:46 DC 07/13/21 08:49 1.5 MG Vital Signs/I&O 07/13/21 07:33 Temp 36.7 Pulse 112 Resp 18 B/P (MAP) 157/97 (117) Pulse Ox 97 O2 Delivery Room Air Blood Pressure Mean: 117 Progress Progress Note #1: Time: 09:22 Progress Note KUB and upright x-ray unremarkable. Creatinine has improved from prior visit. She is receiving Phenergan, Pepcid, and a scopolamine patch. After nausea improves we will give a GI cocktail and then reassess. Notes from prior visits were reviewed. Prior imaging studies were also reviewed including a normal gallbladder ultrasound. Progress Note #2: Time: 10:42 Progress Note Patient's pain has improved with scopolamine patch, Pepcid, and Phenergan. She complains of persistent nausea though. I have advised her to stop drinking carbonated liquids. I would also like to try a low-dose of haloperidol, perhaps 1 mg IV. However, she has had Phenergan and promethazine already today, so we will check an EKG prior to administering. Progress Note #3: Time: 12:26 Progress Note After treatment with Haldol we allowed plenty of time for medications to work. Patient was given a glass of ice water for an oral challenge. She drank 4 tiny sips and said she could not tolerate it. She did not vomit but stated she was still significantly nauseated. Given that she has had 3 ER visits and less than 2 days and is still significantly symptomatic, we will allow her admission for observation and symptomatic care. I discussed the case with Dr. Raza who is agreeable to admission. She will receive scheduled doses of Reglan and doses of Zofran and haloperidol as needed. Scheduled doses of Pepcid will also be administered. Sliding scale insulin will be used to manage any hyperglycemia she develops. A single dose of Diflucan IV will be given for suspected yeast urinary tract infection. I discussed CODE STATUS with the patient and she wishes to remain full code. Diagnostic Imaging Diagonstic Imaging: Xray Plain Films/CT/US/NM/MRI: abdomen, pelvis Comments KUB and upright x-rays reviewed by me and report reviewed. See report below: NAME: NAE PRICE [facility] REC#: [id number] PT STATUS: REG ER : 1970 PHYSICIAN: LENNY BOYKIN MD ADMIT DATE: 07/13/21/ER Draft Date of Exam:07/13/21 ABDOMEN, FLAT UPRIGHT/DECUB EXAMINATION: Abdominal radiographs, 2 views, upright and supine. 4 images. DATE: July 13, 2021. CLINICAL INDICATION: 51-year-old female, abdominal pain. COMPARISON: November 22, 2020. COMMENTS: There is a small amount of contrast in the right colon. There are no abnormally distended gas or contrast filled segments of bowel. There is no identified pneumatosis, portal venous gas, or free intraperitoneal air. There is no identified abnormal radiodensity overlying the kidneys or expected locations of the ureters. IMPRESSION: 1. No identified acute abdominal radiographic abnormality. Dictated on workstation # [id number] Dict: 07/13/21831 Trans: 07/13/2134 CV [id number] Interpreted by: ARABELLA PETERS MD Departure Communication (Admissions) Time/Spoke to Admitting Phy: 12:20 Dr. Raza Impression Primary Impression: Upper abdominal pain Additional Impressions: Nausea & vomiting Qualified Codes: R11.2 - Nausea with vomiting, unspecified Gastroparesis due to DM Yeast UTI Disposition: ADMITTED INPATIENT Condition: Stable Admissions Decision to Admit Reason: Admit from ER (General) Decision to Admit/Date: Jul 13, 2021 Time/Decision to Admit Time: 12:15 Departure-Patient Inst. Referrals: [facility] (PCP) Primary Care Physician ALISON STAPLES (Family) Primary Care Physician Copy Copies To 1: STANFORD CAAL JOSHUA T MD Jul 13, 2021 08:31
[2021-07-13 08:32] LABS: CREATININE SERUM 1.22 MG/DL (0.60-1.30)
--- NOTE | 2021-07-13 08:34 | Diagnostic Imaging Report ---
EXAMINATION: Abdominal radiographs, 2 views, upright and supine. 4 images. DATE: July 13, 2021. CLINICAL INDICATION: 51-year-old female, abdominal pain. COMPARISON: November 22, 2020. COMMENTS: There is a small amount of contrast in the right colon. There are no abnormally distended gas or contrast filled segments of bowel. There is no identified pneumatosis, portal venous gas, or free intraperitoneal air. There is no identified abnormal radiodensity overlying the kidneys or expected locations of the ureters. IMPRESSION: 1. No identified acute abdominal radiographic abnormality. Dictated by: Dictated on workstation # [id number]
[2021-07-13 08:35] LABS: MAGNESIUM 2.2 MG/DL (1.6-2.4)
[2021-07-13] MEDS ORDERED: FAMOTIDINE 20MG/2ML IV (PEPCID) IV STA (08:45)
[2021-07-13] MEDS ORDERED: SCOPOLAMINE 1.5 MG (TRANSDERM-SCOP) PATCH TD ONE (08:45)
[2021-07-13] MEDS ORDERED: PROMETHAZINE INJ 25 MG/ML (PHENERGAN) AMP IVP ONE (08:45)
[2021-07-13] MEDS ORDERED: ANTACID SUSP 30 ML UDC (MYLANTA) PO ONE ×2 (08:45)
[2021-07-13] MEDS ORDERED: LIDOCAINE 2% VISCOUS 15 ML UDC PO ONE ×2 (08:45)
[2021-07-13 08:48] LABS: BILIRUBIN,URINE NEGATIVE (NEGATIVE); CLARITY,URINE SL CLOUDY; COLOR,URINE YELLOW; GLUCOSE, URINE (UA) 3+ (NEGATIVE); KETONES,URINE 1+ (NEGATIVE); LEUKOCYTE ESTERASE ,URINE NEGATIVE (NEGATIVE); NITRITE,URINE NEGATIVE (NEGATIVE); PH,URINE 5.5 (5-9); PROTEIN,URINE NEGATIVE (NEGATIVE)
[2021-07-13 08:57] LABS: BACTERIA,URINE TRACE /HPF; SQUAMOUS EPITHELIAL CELL,UR 0-2 /HPF; YEAST,URINE FEW /HPF
[2021-07-13] MEDS ORDERED: HALOPERIDOL 5 MG/ML (HALDOL) VIAL IV ONE (10:45)
[2021-07-13] MEDS ORDERED: FLUCONAZOLE 200 MG/100 ML 100 ML IV NR (14:07)
[2021-07-13] MEDS ORDERED: HALOPERIDOL 5 MG/ML (HALDOL) VIAL IV PRN (14:15)
[2021-07-13] MEDS: LACTATED RINGERS 1,000 ML IV SCH (15:18)
[2021-07-13] MEDS: METOCLOPRAMIDE INJ 10 MG/2 ML (REGLAN) IV SCH ×2 (15:18→20:24)
[2021-07-13] MEDS: FAMOTIDINE 20MG/2ML IV (PEPCID) IV SCH ×2 (15:34→20:24)
[2021-07-13 15:50] VITALS: BP 134/79
[2021-07-13] MEDS ORDERED: inSUlin ASPART (NovoLOG) 1 UNIT/0.01 ML (CHARGE PER UNIT) SC SCH (18:00)
[2021-07-13 20:52] VITALS: BP 127/78
[2021-07-14] MEDS: ONDANSETRON 4 MG/2 ML (SDV) Z0FRAN IV PRN ×2 (00:01→06:19)
[2021-07-14] MEDS: LACTATED RINGERS 1,000 ML IV SCH ×4 (00:01→17:38)
[2021-07-14 00:39] VITALS: BP 165/82
[2021-07-14] MEDS: METOCLOPRAMIDE INJ 10 MG/2 ML (REGLAN) IV SCH ×4 (03:21→21:17)
[2021-07-14 04:13] VITALS: BP 153/81
[2021-07-14 06:13] LABS: BASOPHILS # (AUTO) 0.1 10^3/uL (0.0-0.1); BASOPHILS % (AUTO) 1 % (0-10); EOSINOPHILS # (AUTO) 0.3 10^3/uL (0.0-0.3); EOSINOPHILS % (AUTO) 4 % (0-10); HEMATOCRIT 36 % (35-52); HEMOGLOBIN 10.9 g/dL (11.5-16.0); LYMPHOCYTES # (AUTO) 1.7 10^3/uL (1.0-4.0); LYMPHOCYTES % (AUTO) 23 % (12-44); MEAN CORPUSCULAR HEMOGLOBIN 25 pg (25-34); MEAN CORPUSCULAR HGB CONC 31 g/dL (32-36); MEAN CORPUSCULAR VOLUME 81 fL (80-99); MEAN PLATELET VOLUME 11.2 fL (9.0-12.2); MONOCYTES # (AUTO) 0.5 10^3/uL (0.0-1.0); MONOCYTES % (AUTO) 7 % (0-12); NEUTROPHILS # (AUTO) 4.8 10^3/uL (1.8-7.8); NEUTROPHILS % (AUTO) 65 % (42-75); PLATELET COUNT 229 10^3/uL (130-400); WHITE BLOOD COUNT 7.4 10^3/uL (4.3-11.0)
[2021-07-14 06:19] LABS: ALBUMIN 3.9 GM/DL (3.2-4.5); POTASSIUM 3.6 MMOL/L (3.6-5.0)
[2021-07-14] MEDS: inSUlin ASPART (NovoLOG) 1 UNIT/0.01 ML (CHARGE PER UNIT) SC SCH ×4 (06:19→21:17)
[2021-07-14 06:21] LABS: TOTAL PROTEIN 6.9 GM/DL (6.4-8.2)
[2021-07-14 06:23] LABS: BILIRUBIN,TOTAL 0.7 MG/DL (0.1-1.0)
[2021-07-14 06:25] LABS: CREATININE SERUM 0.99 MG/DL (0.60-1.30)
[2021-07-14 08:35] VITALS: BP 142/88
[2021-07-14] MEDS: FAMOTIDINE 20MG/2ML IV (PEPCID) IV SCH ×2 (09:40→21:17)
[2021-07-14] MEDS ORDERED: cefTRIAXone 1 GM PRE-MIX 50 ML IV ONE (10:15)
--- NOTE | 2021-07-14 10:27 | History & Physical-Hospitalist ---
History of Present Illness HPI/Chief Complaint This 51-year-old woman presents to the emergency room via EMS for the third time in about 24 hours. She complains of abdominal pain and vomiting. She just left the ER a few hours ago. She reportedly has history of gastroparesis and hiatal hernia and is awaiting receipt of a prescription for domperidone. This medica tion is not available in the [place] and she is waiting to receive it from [place]. She does take regular doses of Reglan. She last had Reglan by IV route around 0100 in the ER. She took her Zofran at home around 0600. She describes persistent nausea and upper abdominal pain despite these treatments. She has continued to produce a bowel movements. 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 Upon my arrival the patient has had no more vomiting reports nausea is tolerating liquids so far does not feel hungry. She reports some epigastric discomfort denies night sweats chills fever cough or chest pain. Denies pain elsewhere. She has had no melena or bright red blood per rectum. She does report dysuria with a small amount of blood in her urine. Date Seen 07/14/21 Time Seen by a Provider: 10:00 Attending Physician Hayden Desir MD [facility] Referring Physician Date of Admission Jul 13, 2021 at 12:24 Home Medications & Allergies Home Medications Reviewed patient Home Medication Reconciliation performed by pharmacy medication reconciliations restaurant maintenance technician and/or nursing. Patients Allergies have been reviewed. Allergies Allergies Coded Allergies lisinopril (Verified Allergy, Mild, COUGH, 02/28/21) doxycycline (Verified Allergy, Unknown, 03/03/21) Nausea and vomiting montelukast (Verified Allergy, Unknown, UNABLE TO REMEMBER REACTION, 02/28/21) Uncoded Allergies METALS ( Allergy, Unknown, 07/12/14) Past Zykdrlq-Imknur-Ncghqd Hx Patient Social History Tobacco Use?: No Substance use?: No Alcohol Use?: No Pt feels they are or have been: No Immunizations Up To Date First/Initial COVID19 Vaccinat: JAN Second COVID19 Vaccination Juan M: FEB Tetanus Booster (TDap): More Than 5 Years Hepatitis A: No Hepatitis B: No Seasonal Allergies Seasonal Allergies: No Current Status status: No Advance Directives: No Communicates: Verbally Primary Language: Frisian Preferred Spoken Language: Frisian Is interpretation needed?: No Sensory deficits: Vision impairment Implanted or Applied Medical D: None Past Medical History Surgeries: Eye Surgery, Orthopedic Asthma, Pneumonia Currently Using CPAP: No Currently Using BIPAP: No Coronary Artery Disease, High Cholesterol, Hypertension Headaches /Migraines 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 Sexually Transmitted Disease: No Kidney Infection, Kidney Stones, Renal Failure Gastroesophageal Reflux, Hiatal Hernia, Ulcer Fibromyalgia Diabetes, Insulin dep Loss of Vision: Denies Hearing Impairment: Denies ADD/ADHD, Sleep Difficulties, Anxiety, Depression Blood Disorders: No Adverse Reaction/Blood Tranf: No Chronic abdominal pain IDDM HTN Anxiety Depression Family Medical History Hypertension 19 FATHER Hypertension Review of Systems Constitutional: see HPI Physical Exam Physical Exam Vital Signs Vital Signs - First Documented 07/13/21 07:33 Temp 36.7 Pulse 112 Resp 18 B/P (MAP) 157/97 (117) Pulse Ox 97 O2 Delivery Room Air Capillary Refill : Height, Weight, BMI Height: 5'3.00" Weight: 240lbs. 2.0oz. 108.970665xc; 44.00 BMI Method:Stated General Appearance: No Apparent Distress, Chronically ill, Obese Respiratory: Chest Non Tender, Lungs Clear, Normal Breath Sounds, No Accessory Muscle Use, No Respiratory Distress Cardiovascular: Regular Rate, Rhythm, No Edema, No Gallop, No JVD, No Murmur, Normal Peripheral Pulses Gastrointestinal: No Organomegaly, No Pulsatile Mass, Soft, Other (Bowel sounds present but hypoactive. Epigastric left and right upper quadrant pain to palpation without rebound or guarding.) Extremity: Normal Capillary Refill, Normal Inspection, Normal Range of Motion, Non Tender, No Calf Tenderness, No Pedal Edema Results Results/Procedures Labs Laboratory Tests 07/13/21 08:08 07/14/21 05:54 Patient resulted labs reviewed. Assessment/Plan Admission Diagnosis 1. Refractory nausea and vomiting likely due to diabetic gastroparesis. Will be keeping oral medications to a minimum we will continue Seroquel that the patient reportedly takes for depression and insomnia and IV Pepcid is been initiated for her gastroesophageal reflux. She thinks that domperidone will likely arrive tomorrow which she will resume per Dr. Kan's orders when available. We will continue IV fluids liquid diet bolus insulin and sliding scale basal with scheduled metoclopramide and as needed Zofran. 2. Urinary tract infection without evidence for sepsis for now we will hold Jiardiance will give IV Rocephin as any oral antibiotic is likely to aggravate #1. Gram-negative sisi growing greater than 100,000 but patient only had 5-10 white cells per high-powered field. We will treat however as she is having dysuria noted a one-time episode of gross hematuria. Admission Status: Observation HAYDEN DESIR MD Jul 14, 2021 10:27
[2021-07-14 12:43] VITALS: BP 147/85
[2021-07-14 17:00] VITALS: BP 125/76
[2021-07-14 19:28] VITALS: BP 123/86
[2021-07-14] MEDS: QUEtiapine 200 MG (SEROquel) TAB IMMEDIATE RELEASE PO SCH (21:17)
[2021-07-15 00:35] VITALS: BP 152/74
[2021-07-15] MEDS: LACTATED RINGERS 1,000 ML IV SCH ×3 (02:20→22:39)
[2021-07-15] MEDS: METOCLOPRAMIDE INJ 10 MG/2 ML (REGLAN) IV SCH ×4 (02:20→20:42)
[2021-07-15 04:04] VITALS: BP 132/66
[2021-07-15] MEDS: inSUlin ASPART (NovoLOG) 1 UNIT/0.01 ML (CHARGE PER UNIT) SC SCH ×4 (05:41→20:50)
[2021-07-15 08:00] VITALS: BP 142/76
[2021-07-15] MEDS: FAMOTIDINE 20MG/2ML IV (PEPCID) IV SCH ×2 (09:01→20:42)
[2021-07-15] MEDS ORDERED: PROM25SU44 RC (09:49)
[2021-07-15] MEDS ORDERED: INSU100I29 SQ (09:49)
[2021-07-15] MEDS ORDERED: ONDA8TAB13 PO (09:49)
[2021-07-15 11:20] VITALS: BP 115/75
[2021-07-15 16:00] VITALS: BP 122/80
--- NOTE | 2021-07-15 19:13 | Progress Note ---
Subjective Subjective/Events-last exam Patient states that she is feeling some better. Still having some abdominal pain. Review of Systems General: Malaise Pulmonary: No Dyspnea, No Cough Cardiovascular: No: Chest Pain, Palpitations, Edema Gastrointestinal: Abdominal Pain; No: Nausea, Vomiting, Diarrhea Neurological: Weakness; No: Incoordination, Confusion Objective Exam Last Set of Vital Signs Vital Signs Date Time Temp Pulse Resp B/P (MAP) Pulse Ox O2 Delivery O2 Flow Rate FiO2 07/15/21 16:00 36.5 89 16 122/80 (94) 95 Room Air Capillary Refill : I&O Intake and Output 07/15/21 00:00 Intake Total 1110 ml Balance 1110 ml Intake Oral 1060 ml IV Total 50 ml # Voids 7 General: Alert, Oriented X3, No Acute Distress HEENT: Mucous Memb Moist/[place] Lungs: Clear to Auscultation, Normal Air Movement Heart: Regular Rate, No Murmurs Abdomen: Normal Bowel Sounds, Soft, Other (mild diffuse ttp) Extremities: No Edema, No Tenderness/Swelling Neuro: Normal Speech, Strength at 5/5 X4 Ext, Sensation Intact, Cranial Nerves 3-12 NL Results/Procedures Lab Laboratory Tests 07/14/21 19:26: Glucometer 202H 07/15/21 05:05: Glucometer 154H 07/15/21 11:20: Glucometer 194H 07/15/21 15:59: Glucometer 163H Microbiology 07/13/21 Urine Culture - Preliminary, Resulted Escherichia coli Mixed Bacterial Angela Assessment/Plan Assessment/Plan (1) Gastroparesis due to DM Status: Acute Assessment & Plan: 07/15: Continue Reglan, advance diet as tolerated (2) E-coli UTI Status: Acute Assessment & Plan: 07/15: Continue IV Rocephin (3) IDDM (insulin dependent diabetes mellitus) Status: Acute Assessment & Plan: 07/15: SSI, Accuchecks DEEPTI ZAMARRIPA MD Jul 15, 2021 19:13
[2021-07-15] MEDS ORDERED: cefTRIAXone 1,000 MG in SYRINGE-IVPB 0 SYRINGE IV SCH (19:15)
[2021-07-15 20:00] VITALS: BP 117/80
[2021-07-15] MEDS ORDERED: cefTRIAXone 1 GM PRE-MIX 50 ML IV ONE (20:33)
[2021-07-15] MEDS: QUEtiapine 200 MG (SEROquel) TAB IMMEDIATE RELEASE PO SCH (20:42)
[2021-07-16 00:18] VITALS: BP 101/67
[2021-07-16 03:43] VITALS: BP 104/54
[2021-07-16] MEDS: METOCLOPRAMIDE INJ 10 MG/2 ML (REGLAN) IV SCH ×2 (03:44→08:21)
[2021-07-16 06:01] LABS: BASOPHILS % (AUTO) 1 % (0-10); EOSINOPHILS # (AUTO) 0.2 10^3/uL (0.0-0.3); EOSINOPHILS % (AUTO) 4 % (0-10); HEMATOCRIT 32 % (35-52); HEMOGLOBIN 9.8 g/dL (11.5-16.0); LYMPHOCYTES # (AUTO) 1.5 10^3/uL (1.0-4.0); LYMPHOCYTES % (AUTO) 30 % (12-44); MEAN CORPUSCULAR HEMOGLOBIN 25 pg (25-34); MEAN CORPUSCULAR HGB CONC 30 g/dL (32-36); MEAN CORPUSCULAR VOLUME 82 fL (80-99); MEAN PLATELET VOLUME 11.2 fL (9.0-12.2); MONOCYTES # (AUTO) 0.4 10^3/uL (0.0-1.0); MONOCYTES % (AUTO) 8 % (0-12); NEUTROPHILS # (AUTO) 2.9 10^3/uL (1.8-7.8); NEUTROPHILS % (AUTO) 57 % (42-75); PLATELET COUNT 153 10^3/uL (130-400); WHITE BLOOD COUNT 5.2 10^3/uL (4.3-11.0)
[2021-07-16] MEDS: inSUlin ASPART (NovoLOG) 1 UNIT/0.01 ML (CHARGE PER UNIT) SC SCH ×2 (06:11→11:42)
[2021-07-16 06:19] LABS: ALBUMIN 3.2 GM/DL (3.2-4.5); POTASSIUM 3.2 MMOL/L (3.6-5.0)
[2021-07-16 06:20] LABS: CALCIUM 8.3 MG/DL (8.5-10.1)
[2021-07-16 06:21] LABS: TOTAL PROTEIN 5.8 GM/DL (6.4-8.2)
[2021-07-16 06:23] LABS: BILIRUBIN,TOTAL 0.4 MG/DL (0.1-1.0)
[2021-07-16 06:25] LABS: CREATININE SERUM 0.83 MG/DL (0.60-1.30)
[2021-07-16 08:00] VITALS: BP 123/78
[2021-07-16] MEDS: FAMOTIDINE 20MG/2ML IV (PEPCID) IV SCH (08:21)
[2021-07-16] MEDS ORDERED: cefTRIAXone 1 GM/50 ML (PRE-MIX) IV SCH (09:00)
[2021-07-16] MEDS: POTASSIUM CL 10MEQ/50ML IVPB 50 ML IV SCH ×2 (10:27→11:24)
[2021-07-16 12:00] VITALS: BP 97/65
--- NOTE | 2021-07-16 14:26 | Discharge Summary ---
Diagnosis/Chief Complaint Date of Admission Jul 13, 2021 at 12:24 Date of Discharge Discharge Diagnosis Problems/Diagnosis: (1) Gastroparesis due to DM Assessment & Plan: 07/15: Continue Reglan, advance diet as tolerated Status: Acute (2) E-coli UTI Assessment & Plan: 07/15: Continue IV Rocephin Status: Acute (3) IDDM (insulin dependent diabetes mellitus) Assessment & Plan: 07/15: SSI, Accuchecks ACHS Status: Acute Discharge Summary-Simple/Stand Consultations Discharge Physical Examination Allergies: Coded Allergies: lisinopril (Verified Allergy, Mild, COUGH, 02/28/21) doxycycline (Verified Allergy, Unknown, 03/03/21) Nausea and vomiting montelukast (Verified Allergy, Unknown, UNABLE TO REMEMBER REACTION, 02/28/21) Uncoded Allergies: METALS (Allergy, Unknown, 07/12/14) Vitals & I&Os Vital Sign - Last 12Hours Date Time Temp Pulse Resp B/P (MAP) Pulse Ox O2 Delivery O2 Flow Rate FiO2 07/16/21 12:24 110 07/16/21 12:00 36.4 20 97/65 (76) 95 Room Air Intake and Output 07/15/21 23:59 Intake Total 1260 ml Balance 1260 ml Hospital Course See final discharge diagnosis. Discharge Instructions to patient/family Please see electronic discharge instructions given to patient. Discharge Medications Reviewed and agree with Discharge Medication list on patient's Discharge Instruction sheet DEEPTI PIKE MD Jul 16, 2021 14:26
[2021-07-16] MEDS ORDERED: CEFD300C3 PO (14:28)
--- NOTE | 2021-07-16 14:31 | Discharge Summary ---
Discharge [facility] Reconcile Patient Problems Problems Reviewed?: Yes Discharge Medications New, Converted or Re-Newed RX: Transmitted to Pharmacy New Medications: Cefdinir (Cefdinir) 300 Mg Capsule 300 MG PO BID, #8 CAP Continued Medications: Atorvastatin Calcium (Atorvastatin Calcium) 10 Mg Tablet 10 MG PO HS, TAB Desvenlafaxine Succinate (Desvenlafaxine Succinate ER) 100 Mg Tab.er.24h 100 MG PO DAILY, TAB Diclofenac Sodium (Diclofenac Sodium) 50 Mg Tablet.dr 50 MG PO BID, TAB Docusate Sodium (Docusate Sodium) 100 Mg Capsule 100 MG PO BID, CAP Empagliflozin (Jardiance) 10 Mg Tablet 10 MG PO DAILY, TAB Famotidine (Famotidine) 20 Mg Tablet 20 MG PO BID, TAB Gabapentin (Gabapentin) 600 Mg Tablet 600 MG PO TID, TAB Insulin Detemir (Levemir Flextouch) 100 Unit/1 Ml Insuln.pen 15 UNIT SQ HS, EA Mirtazapine (Mirtazapine) 30 Mg Tablet 30 MG PO HS, TAB Ondansetron (Ondansetron Odt) 8 Mg Tab.rapdis 8 MG PO Q6H PRN for NAUSEA/VOMITING-1ST LINE, TAB Pantoprazole Sodium (Pantoprazole Sodium) 40 Mg Tablet.dr 40 MG PO BID, TAB LAST FILLED 02-26-2021 #180/90 DAY SUPPLY Promethazine HCl (Promethazine Suppository) 25 Mg Supp.rect 25 MG RC Q6H PRN for NAUSEA/VOMITING-2ND LINE, SUPP.RECT Quetiapine Fumarate (Quetiapine Fumarate) 400 Mg Tablet 400 MG PO HS, TAB Spironolactone (Spironolactone) 25 Mg Tablet 25 MG PO DAILY, TAB Tizanidine HCl (Tizanidine HCl) 4 Mg Tablet 4 MG PO TID, TAB Patient Instructions Goal/Follow Up Appt: F/u with PCP 1-2 weeks Activity & Diet Discharge Diet: Eat Small Frequent Meals Activity as Tolerated: Yes DEEPTI PIKE MD Jul 16, 2021 14:31
[2021-07-16 16:05] VITALS: BP 97/65
== END 2021-07-16 15:30 | disposition home or self-care (01) ==
LOC: EDUNIT# 07:30 → ER 07:32 → 4TH 12:24
PROVIDERS: ADMIT Internal Medicine; ATTEND Family Medicine
DX: E11.43 Type 2 diabetes mellitus with diabetic autonomic (poly)neuropathy (principal); N39.0 Urinary tract infection, site not specified; B96.20 Unspecified Escherichia coli [E. coli] as the cause of diseases classified elsewhere; J45.909 Unspecified asthma, uncomplicated; E78.00 Pure hypercholesterolemia, unspecified; I10 Essential (primary) hypertension; I25.10 Atherosclerotic heart disease of native coronary artery without angina pectoris; G43.909 Migraine, unspecified, not intractable, without status migrainosus; K21.9 Gastro-esophageal reflux disease without esophagitis; G47.9 Sleep disorder, unspecified; M79.7 Fibromyalgia; F90.9 Attention-deficit hyperactivity disorder, unspecified type; F41.9 Anxiety disorder, unspecified; F32.A Depression, unspecified; Z79.899 Other long term (current) drug therapy; Z79.4 Long term (current) use of insulin
CPT/HCPCS: 74019; 80053 ×3; 81000; 82947 ×4; 83690; 83735; 84703; 85025 ×3; 86141; 87077; 87088; 87186; 93005; 93041; 99284; G0378; 36415

== ENCOUNTER → 2021-09-04 | Outpatient (CLI) | payer MEDICARE, MEDICAID ==
[~2021-09-04] MED LIST changes: +RT-ALBUTEROL SULF 2.5 MG/3 ML PRE-MIX VIAL INH ONE
== END ==
LOC: RT 10:45
PROVIDERS: ATTEND Nurse Practitioner Family
DX: R06.02 Shortness of breath (principal); E66.01 Morbid (severe) obesity due to excess calories; Z87.09 Personal history of other diseases of the respiratory system
CPT/HCPCS: 94060; 94726; 94729

== ENCOUNTER → 2021-11-06 | Outpatient (CLI) | payer MEDICARE, MEDICAID ==
[~2021-11-06] MED LIST changes: -RT-ALBUTEROL SULF 2.5 MG/3 ML PRE-MIX VIAL INH ONE
== END ==
LOC: CARD 10:32
PROVIDERS: ATTEND Internal Medicine Cardiovascular Disease
DX: R07.89 Other chest pain (principal); R00.2 Palpitations
CPT/HCPCS: 93225; 93226; 93306

== ENCOUNTER → 2021-11-26 | Outpatient (CLI) | payer MEDICARE, MEDICAID ==
[~2021-11-26] MED LIST changes: +CATHETER FLUSH 10 ML SYR IVP PRN; +REGADENOSON 0.4 MG/5 ML SYR (LEXISCAN) IV ONE
[2021-11-26 13:22] VITALS: BP 132/93
== END ==
LOC: CARD 12:00
PROVIDERS: ATTEND Internal Medicine Cardiovascular Disease
DX: R07.89 Other chest pain (principal)
CPT/HCPCS: 78452; 93017; A9502

== ENCOUNTER 2021-12-17 08:56 | Day surgery (SDC) | payer MEDICARE, MEDICAID ==
[~2021-12-17] VITALS: Ht 160 cm; Wt 105.0 kg
[~2021-12-17 08:56] MED LIST changes: -CATHETER FLUSH 10 ML SYR IVP PRN; -REGADENOSON 0.4 MG/5 ML SYR (LEXISCAN) IV ONE
[2021-12-17 09:25] VITALS: BP 139/90
[2021-12-17] MEDS ORDERED: LIDOCAINE 1% INJ 20 ML VIAL ONE (09:34)
--- NOTE | 2021-12-17 15:13 | OPERATIVE REPORT ---
DATE OF SERVICE: 12/17/2021 PREOPERATIVE DIAGNOSIS: Palpitations. POSTOPERATIVE DIAGNOSIS: Palpitations. PROCEDURE: Implantable loop recorder implantation. INDICATIONS: The patient is a 51-year-old lady, who has palpitations that she finds quite bothersome, but that have not been recorded. Holter monitor was used, but she did not have symptoms at that time. Because of continuing symptoms that are relatively infrequent, implantable loop recorder implantation was carried out today after having obtained an informed consent. DESCRIPTION OF PROCEDURE: [facility] The left prepectoral area was prepared and draped in the usual sterile fashion. The tools provided with the [employer] LINQ device were used to make a pocket anterior to the fourth left intercostal space into which the device was placed and the wound edges were closed using Dermabond and Steri-Strips. The serial number of the device is [id number]. Job ID: [id number] DocumentID: [id number] Dictated Date: 12/17/2021 10:39:50 Personal Shopper Date: 12/17/2021 15:11:41 Dictated By: CHRISSIE KLEIN MD, MA, FACP, FACC,
== END 2021-12-17 11:33 | disposition home or self-care (01) ==
LOC: CATH 08:56
PROVIDERS: ATTEND Internal Medicine Cardiovascular Disease
DX: R00.2 Palpitations (principal); R06.00 Dyspnea, unspecified; E11.9 Type 2 diabetes mellitus without complications; K21.9 Gastro-esophageal reflux disease without esophagitis; I10 Essential (primary) hypertension; R07.89 Other chest pain; E78.2 Mixed hyperlipidemia
CPT/HCPCS: 33285; C1764

== ENCOUNTER 2022-11-18 10:15 | Emergency (ER) | payer MEDICARE, MEDICAID ==
[~2022-11-18] VITALS: Ht 160 cm; Wt 99.0 kg
[~2022-11-18 10:15] MED LIST changes: -INSU100I29 SQ; +INSU100I30 SQ; +LEVO750T PO; -LEVO750T39 PO; -QUET300T71 PO; +QUET300T90 PO
[2022-11-18] MEDS ORDERED: NS IV 1000 ML 1,000 ML IV STA ×2 (10:27→11:20)
[2022-11-18] MEDS ORDERED: METOCLOPRAMIDE INJ 10 MG/2 ML (REGLAN) IVP ONE (10:30)
[2022-11-18] MEDS ORDERED: diphenhydrAMINE 50 MG/ML INJ (BENADRYL) IVP ONE (10:30)
--- NOTE | 2022-11-18 10:30 | ED Abdominal Pain ---
General Chief Complaint: Abdominal/GI Problems Stated Complaint: N|V|ABD PAIN Nursing Triage Note: PT ARRIVED PER EMS, PT CO OF UPPER ABD PAIN,PT RATES PAIN /. PT HAS N/V HAD CONSTIPATION YESTERDAY BUT NORMAL BM TODAY. PT WAS SEEN AT [facility] YESTERDAY Source of Information: Patient Exam Limitations: No Limitations History of Present Illness Date Seen by Provider: Nov 18, 2022 Time Seen by Provider: 10:18 Initial Comments 52-year-old female with past medical history most notable for diabetes and gastroparesis coming in due to what she states is a "gastroparesis flare". Started having nausea and nonbloody nonbilious vomiting this morning. Had 2 normal bowel movements this morning. Denies any fever, severe abdominal pain, chest pain, shortness of breath, weakness, numbness, rash, dysuria, hematuria, urinary frequency, or any other concerns. Was unable to take her typical nausea medicines and gastroparesis medicines this morning. Allergies and Home Medications Allergies Coded Allergies: lisinopril (Verified Allergy, Mild, COUGH, 02/28/21) doxycycline (Verified Allergy, Unknown, 03/03/21) Nausea and vomiting montelukast (Verified Allergy, Unknown, UNABLE TO REMEMBER REACTION, 02/28/21) Uncoded Allergies: METALS (Allergy, Unknown, 07/12/14) Patient Home Medication List Home Medication List Reviewed: Yes Atorvastatin Calcium (Atorvastatin Calcium) 10 Mg Tablet, 10 MG PO HS, (Reported) Entered as Reported by: KAY ARENAS on 12/12/20 1224 Cefdinir (Cefdinir) 300 Mg Capsule, 300 MG PO BID Prescribed by: DEEPTI PIKE on 07/16/21 1428 Desvenlafaxine Succinate (Desvenlafaxine Succinate ER) 100 Mg Tab.er.24h, 100 MG PO DAILY, (Reported) Entered as Reported by: KAY ARENAS on 12/12/20 1224 Diclofenac Sodium (Diclofenac Sodium) 50 Mg Tablet.dr, 50 MG PO BID, (Reported) Entered as Reported by: KAY ARENAS on 01/10/21 1505 Docusate Sodium (Docusate Sodium) 100 Mg Capsule, 100 MG PO BID, (Reported) Entered as Reported by: KAY ARENAS on 11/22/19 1602 Empagliflozin (Jardiance) 10 Mg Tablet, 10 MG PO DAILY, (Reported) Entered as Reported by: KAY ARENAS on 01/10/21 1505 Famotidine (Famotidine) 20 Mg Tablet, 20 MG PO BID, (Reported) Entered as Reported by: KAY ARENAS on 12/12/20 1224 Gabapentin (Gabapentin) 600 Mg Tablet, 600 MG PO TID, (Reported) Entered as Reported by: KAY ARENAS on 02/28/19 1002 Insulin Detemir (Levemir Flextouch) 100 Unit/1 Ml Insuln.pen, 15 UNIT SQ HS, (Reported) Entered as Reported by: KAY ARENAS on 07/15/21 0949 Mirtazapine (Mirtazapine) 30 Mg Tablet, 30 MG PO HS, (Reported) Entered as Reported by: KAY ARENAS on 12/12/20 1224 Ondansetron (Ondansetron Odt) 8 Mg Tab.rapdis, 8 MG PO Q6H PRN for NAUSEA/VOMITING-1ST LINE, (Reported) Entered as Reported by: KAY ARENAS on 07/15/21 0949 Pantoprazole Sodium (Pantoprazole Sodium) 40 Mg Tablet.dr, 40 MG PO BID, (Reported) Entered as Reported by: KAY ARENAS on 02/28/19 1013 Promethazine HCl (Promethazine Suppository) 25 Mg Supp.rect, 25 MG RC Q6H PRN for NAUSEA/VOMITING-2ND LINE, (Reported) Entered as Reported by: KAY ARENAS on 07/15/21 0949 Quetiapine Fumarate (Quetiapine Fumarate) 400 Mg Tablet, 400 MG PO HS, (Reported) Entered as Reported by: KAY ARENAS on 12/12/20 1224 Spironolactone (Spironolactone) 25 Mg Tablet, 25 MG PO DAILY, (Reported) Entered as Reported by: KAY ARENAS on 02/28/21 1637 Tizanidine HCl (Tizanidine HCl) 4 Mg Tablet, 4 MG PO TID, (Reported) Entered as Reported by: KAY ARENAS on 12/12/20 1224 Review of Systems Review of Systems Constitutional: No fever EENTM: No Symptoms Reported Respiratory: No Symptoms Reported Cardiovascular: No Symptoms Reported Gastrointestinal: See HPI Genitourinary: No Symptoms Reported Musculoskeletal: no symptoms reported Skin: no symptoms reported Psychiatric/Neurological: No Symptoms Reported Endocrine: No Symptoms Reported Hematologic/Lymphatic: No Symptoms Reported Past Nogywuf-Bmwrhj-Xtcgyj Hx Patient Social History Substance use?: No Immunizations Up To Date Tetanus Booster (TDap): Unknown First/Initial COVID19 Vaccinat: Jan COVID19 Vaccination Juan M: Feb COVID19 Vaccination Date: PT STATES HAS TAKEN BOTH MODERNA VACCINES Seasonal Allergies Seasonal Allergies: No Past Medical History Surgery/Hospitalization HX: DM 2, FIBROMYALGIA, ARTHRITIS IN SPINE Surgeries: Yes (EGD) Eye Surgery, Orthopedic Respiratory: Yes Asthma, Pneumonia Currently Using CPAP: No Currently Using BIPAP: No Cardiac: Yes Palpitations Neurological: Yes Headaches /Migraines 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 Disorders: No Female 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 Disorders: Denies 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 Sexually Transmitted Disease: No Genitourinary: Yes UTI-Chronic Gastrointestinal: Yes (Gastroparesis) Gastroesophageal Reflux Musculoskeletal: Yes Fibromyalgia Endocrine: Yes Diabetes, Insulin dep HEENT: Yes Loss of Vision: Denies Hearing Impairment: Denies Cancer: No Psychosocial: Yes ADD/ADHD, Sleep Difficulties, Anxiety, Depression Integumentary: No Blood Disorders: No Adverse Reaction/Blood Tranf: No Family Medical History Hypertension 19 FATHER Hypertension Physical Exam Vital Signs Vital Signs - First Documented 11/18/22 10:15 Temp 36.1 Pulse 89 Resp 18 B/P (MAP) 116/81 (93) Pulse Ox 97 O2 Delivery Room Air Capillary Refill : Less Than 3 Seconds Height/Weight/BMI Height: 5'3.00" Weight: 240lbs. 2.0oz. 108.197371eu; 38.00 BMI Method:Stated General Appearance: WD/WN, no apparent distress HEENT: PERRL/EOMI, normal ENT inspection, pharynx normal Neck: non-tender, full range of motion, supple, normal inspection Respiratory: chest non-tender, lungs clear, normal breath sounds, no respiratory distress, no accessory muscle use Cardiovascular: regular rate, rhythm, no edema, no murmur Gastrointestinal: normal bowel sounds, non tender, soft; No distended, No guarding, No rebound Extremities: normal range of motion, non-tender, normal inspection, no pedal edema, no calf tenderness, normal capillary refill Back: normal inspection, no CVA tenderness Neurologic/Psychiatric: no motor/sensory deficits, alert, normal mood/affect Skin: normal color, warm/dry Progress/Results/Core Measures Results/Orders Lab Results Laboratory Tests Test 11/18/22 10:40 Range/Units White Blood Count 7.7 4.3-11.0 10^3/uL Red Blood Count 5.22 H 3.80-5.11 10^6/uL Hemoglobin 13.8 11.5-16.0 g/dL Hematocrit 43 35-52 % Mean Corpuscular Volume 83 80-99 fL Mean Corpuscular Hemoglobin 26 25-34 pg Mean Corpuscular Hemoglobin Concent 32 32-36 g/dL Red Cell Distribution Width 15.7 H 10.0-14.5 % Platelet Count 237 130-400 10^3/uL Mean Platelet Volume 10.8 9.0-12.2 fL Immature Granulocyte % (Auto) 1 % Neutrophils (%) (Auto) 60 42-75 % Lymphocytes (%) (Auto) 31 12-44 % Monocytes (%) (Auto) 6 0-12 % Eosinophils (%) (Auto) 2 0-10 % Basophils (%) (Auto) 1 0-10 % Neutrophils # (Auto) 4.6 1.8-7.8 10^3/uL Lymphocytes # (Auto) 2.4 1.0-4.0 10^3/uL Monocytes # (Auto) 0.5 0.0-1.0 10^3/uL Eosinophils # (Auto) 0.2 0.0-0.3 10^3/uL Basophils # (Auto) 0.0 0.0-0.1 10^3/uL Immature Granulocyte # (Auto) 0.0 0.0-0.1 10^3/uL Sodium Level 139 135-145 MMOL/L Potassium Level 3.9 3.6-5.0 MMOL/L Chloride Level 102 98-107 MMOL/L Carbon Dioxide Level 23 21-32 MMOL/L Anion Gap 14 5-14 MMOL/L Blood Urea Nitrogen 12 7-18 MG/DL Creatinine 1.11 0.60-1.30 MG/DL Estimat Glomerular Filtration Rate 59 BUN/Creatinine Ratio 11 Glucose Level 302 H 70-105 MG/DL Calcium Level 12.1 H 8.5-10.1 MG/DL Corrected Calcium 11.7 H 8.5-10.1 MG/DL Magnesium Level 1.6 1.6-2.4 MG/DL Total Bilirubin 0.6 0.1-1.0 MG/DL Aspartate Amino Transf (AST/SGOT) 15 5-34 U/L Alanine Aminotransferase (ALT/SGPT) 21 0-55 U/L Alkaline Phosphatase 66 40-136 U/L Total Protein 8.1 6.4-8.2 GM/DL Albumin 4.5 3.2-4.5 GM/DL Lipase 30 8-78 U/L My Orders Orders - LUCERO FORTE MD Cbc With Automated Diff (11/18/22 10:27) Comprehensive Metabolic Panel (11/18/22 10:27) Lipase (11/18/22 10:27) Magnesium (11/18/22 10:27) Ed Iv/Invasive Line Start (11/18/22 10:27) Ns Iv 1000 Ml (Sodium Chloride 0.9%) (11/18/22 10:27) Metoclopramide Injection (Reglan Injecti (11/18/22 10:30) Diphenhydramine Injection (Benadryl Inje (11/18/22 10:30) Ns Iv 1000 Ml (Sodium Chloride 0.9%) (11/18/22 11:20) Medications Given in ED Current Medications Medications Dose Ordered Sig/Kate Route Start Time Stop Time Status Last Admin Dose Admin Diphenhydramine HCl 12.5 mg ONCE ONCE IVP 11/18/22 10:30 11/18/22 10:31 DC 11/18/22 11:28 12.5 MG Metoclopramide HCl 10 mg ONCE ONCE IVP 11/18/22 10:30 11/18/22 10:31 DC 11/18/22 11:29 10 MG Vital Signs/I&O 11/18/22 10:15 Temp 36.1 Pulse 89 Resp 18 B/P (MAP) 116/81 (93) Pulse Ox 97 O2 Delivery Room Air Blood Pressure Mean: 93 Progress Progress Note : Progress Note 52-year-old female with above history coming in due to nausea and nonbloody nonbilious vomiting. ABCs were intact and vitals were stable on presentation. Physical exam reassuring with no significant abdominal pain and no signs of peritonitis. An IV was placed and basic labs were obtained and were significant for mildly elevated calcium with expected at 11.7, normal creatinine, normal white blood cell count, normal lipase. She was given 2 L of IV fluids, metoclopramide for nausea as well as Benadryl. Appears much better on reassessment and repeat abdominal exam once again reassuring. Clinically not obstructed with normal bowel movements today. No indication for CT abdomen and pelvis at this time. She is tolerating p.o. fluids. I will have her follow-up with her PCP for repeat calcium check within the next week or so. I believe she is otherwise stable for discharge with outpatient follow-up. She was sent home with strict return precautions. Departure Impression Primary Impression: Hypercalcemia Additional Impression: Gastroparesis Disposition: HOME, SELF-CARE Condition: Improved Departure-Patient Inst. Decision time for Depature: 12:55 [facility] Primary Care Physician ALISON STAPLES (Family) Primary Care Physician Patient Instructions: Hypercalcemia (DC), Gastroparesis (delayed gastric empty ing) Add. Discharge Instructions: Your calcium was slightly elevated which the fluids we gave you will help lower this. Please follow-up with your regular doctor to have this rechecked within the next week or 2. Be sure to be drinking plenty of fluids. Take your nausea medicines as needed. Work/School Note: Work Release Form Date Seen in the Emergency Department: Nov 18, 2022 Return to Work: Nov 19, 2022 Restrictions: Return-No Vomiting(24hrs) LUCERO FORTE MD Nov 18, 2022 10:30
[2022-11-18 10:50] LABS: BASOPHILS % (AUTO) 1 % (0-10); EOSINOPHILS # (AUTO) 0.2 10^3/uL (0.0-0.3); EOSINOPHILS % (AUTO) 2 % (0-10); HEMATOCRIT 43 % (35-52); HEMOGLOBIN 13.8 g/dL (11.5-16.0); LYMPHOCYTES # (AUTO) 2.4 10^3/uL (1.0-4.0); LYMPHOCYTES % (AUTO) 31 % (12-44); MEAN CORPUSCULAR HEMOGLOBIN 26 pg (25-34); MEAN CORPUSCULAR HGB CONC 32 g/dL (32-36); MEAN CORPUSCULAR VOLUME 83 fL (80-99); MEAN PLATELET VOLUME 10.8 fL (9.0-12.2); MONOCYTES # (AUTO) 0.5 10^3/uL (0.0-1.0); MONOCYTES % (AUTO) 6 % (0-12); NEUTROPHILS # (AUTO) 4.6 10^3/uL (1.8-7.8); NEUTROPHILS % (AUTO) 60 % (42-75); PLATELET COUNT 237 10^3/uL (130-400); WHITE BLOOD COUNT 7.7 10^3/uL (4.3-11.0)
[2022-11-18 11:02] LABS: ALBUMIN 4.5 GM/DL (3.2-4.5); POTASSIUM 3.9 MMOL/L (3.6-5.0)
[2022-11-18 11:04] LABS: CALCIUM 12.1 MG/DL (8.5-10.1)
[2022-11-18 11:05] LABS: TOTAL PROTEIN 8.1 GM/DL (6.4-8.2)
[2022-11-18 11:07] LABS: BILIRUBIN,TOTAL 0.6 MG/DL (0.1-1.0)
[2022-11-18 11:08] LABS: CREATININE SERUM 1.11 MG/DL (0.60-1.30)
[2022-11-18 11:11] LABS: MAGNESIUM 1.6 MG/DL (1.6-2.4)
[2022-11-18 12:59] VITALS: BP 114/80
[2022-11-19] MEDS ORDERED: METO5TAB75 PO (10:32)
== END 2022-11-18 13:04 | disposition home or self-care (01) ==
LOC: EDUNIT# 10:15 → ER 10:16
DX: E83.52 Hypercalcemia (principal); E11.43 Type 2 diabetes mellitus with diabetic autonomic (poly)neuropathy; K31.84 Gastroparesis
CPT/HCPCS: 36415; 80053; 83690; 83735; 85025

== ENCOUNTER 2022-11-19 08:37 | Emergency (ER) | payer MEDICARE, MEDICAID ==
[~2022-11-19] VITALS: Ht 160 cm; Wt 99.7 kg
--- NOTE | 2022-11-19 08:50 | ED GI ---
General Chief Complaint: Abdominal/GI Problems Stated Complaint: ABD PAIN History of Present Illness Date Seen by Provider: Nov 19, 2022 Time Seen by Provider: 08:49 Initial Comments 52-year-old female presents with nausea vomiting x4 days with diarrhea and some epigastric pain. Patient has history of chronic abdominal pain "gastroparesis" patient [facility] Patient's been seen by [facility] couple days ago. She was here yesterday with no significant acute findings on her evaluation for similar symptoms. Allergies and Home Medications Allergies Coded Allergies: lisinopril (Verified Allergy, Mild, COUGH, 02/28/21) doxycycline (Verified Allergy, Unknown, 03/03/21) Nausea and vomiting montelukast (Verified Allergy, Unknown, UNABLE TO REMEMBER REACTION, 02/28/21) Uncoded Allergies: METALS (Allergy, Unknown, 07/12/14) Patient Home Medication List Home Medication List Reviewed: Yes Atorvastatin Calcium (Atorvastatin Calcium) 10 Mg Tablet, 10 MG PO HS, (Reported) Entered as Reported by: KAY ARENAS on 12/12/20 1224 Cefdinir (Cefdinir) 300 Mg Capsule, 300 MG PO BID Prescribed by: DEEPTI PIKE on 07/16/21 1428 Desvenlafaxine Succinate (Desvenlafaxine Succinate ER) 100 Mg Tab.er.24h, 100 MG PO DAILY, (Reported) Entered as Reported by: KAY ARENAS on 12/12/20 1224 Diclofenac Sodium (Diclofenac Sodium) 50 Mg Tablet.dr, 50 MG PO BID, (Reported) Entered as Reported by: KAY ARENAS on 01/10/21 1505 Docusate Sodium (Docusate Sodium) 100 Mg Capsule, 100 MG PO BID, (Reported) Entered as Reported by: KAY ARENAS on 11/22/19 1602 Empagliflozin (Jardiance) 10 Mg Tablet, 10 MG PO DAILY, (Reported) Entered as Reported by: KAY ARENAS on 01/10/21 1505 Famotidine (Famotidine) 20 Mg Tablet, 20 MG PO BID, (Reported) Entered as Reported by: KAY ARENAS on 12/12/20 1224 Gabapentin (Gabapentin) 600 Mg Tablet, 600 MG PO TID, (Reported) Entered as Reported by: KAY ARENAS on 02/28/19 1002 Insulin Detemir (Levemir Flextouch) 100 Unit/1 Ml Insuln.pen, 15 UNIT SQ HS, (Reported) Entered as Reported by: KAY ARENAS on 07/15/21 0949 Metoclopramide HCl (Reglan) 5 Mg Tablet, 5 MG PO QID Prescribed by: OFELIA ZAMORA on 11/19/22 1032 Mirtazapine (Mirtazapine) 30 Mg Tablet, 30 MG PO HS, (Reported) Entered as Reported by: KAY ARENAS on 12/12/20 1224 Ondansetron (Ondansetron Odt) 8 Mg Tab.rapdis, 8 MG PO Q6H PRN for NAUSEA/VOMITING-1ST LINE, (Reported) Entered as Reported by: KAY ARENAS on 07/15/21 0949 Pantoprazole Sodium (Pantoprazole Sodium) 40 Mg Tablet.dr, 40 MG PO BID, (Reported) Entered as Reported by: KAY ARENAS on 02/28/19 1013 Promethazine HCl (Promethazine Suppository) 25 Mg Supp.rect, 25 MG RC Q6H PRN for NAUSEA/VOMITING-2ND LINE, (Reported) Entered as Reported by: KAY ARENAS on 07/15/21 0949 Quetiapine Fumarate (Quetiapine Fumarate) 400 Mg Tablet, 400 MG PO HS, (Reported) Entered as Reported by: KAY ARENAS on 12/12/20 1224 Spironolactone (Spironolactone) 25 Mg Tablet, 25 MG PO DAILY, (Reported) Entered as Reported by: KAY ARENAS on 02/28/21 1637 Tizanidine HCl (Tizanidine HCl) 4 Mg Tablet, 4 MG PO TID, (Reported) Entered as Reported by: KAY ARENAS on 12/12/20 1224 Review of Systems Review of Systems Constitutional: No chills, No fever EENTM: No Symptoms Reported Respiratory: Cough Cardiovascular: No Symptoms Reported Gastrointestinal: Abdominal Pain (epigastric ), Diarrhea, Nausea, Vomiting Musculoskeletal: no symptoms reported Skin: no symptoms reported Psychiatric/Neurological: No Symptoms Reported Endocrine: No Symptoms Reported Past Jhnhjyn-Wbazyn-Cvayob Hx Immunizations Up To Date Tetanus Booster (TDap): Unknown First/Initial COVID19 Vaccinat: JAN Second COVID19 Vaccination Juan M: Feb COVID19 Vaccination Date: JAN Seasonal Allergies Seasonal Allergies: No Past Medical History Surgery/Hospitalization HX: DM 2, FIBROMYALGIA, ARTHRITIS IN SPINE Surgeries: Yes (EGD) Eye Surgery, Orthopedic Respiratory: Yes Asthma, Pneumonia Currently Using CPAP: No Currently Using BIPAP: No Cardiac: Yes Palpitations Neurological: Yes Headaches /Migraines 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 Disorders: No Female 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 Disorders: Denies PA[employer] History: Menopausal Sexually Transmitted Disease: No Genitourinary: Yes UTI-Chronic Gastrointestinal: Yes (Gastroparesis) Gastroesophageal Reflux Musculoskeletal: Yes Fibromyalgia Endocrine: Yes Diabetes, Insulin dep HEENT: Yes Loss of Vision: Denies Hearing Impairment: Denies Cancer: No Psychosocial: Yes ADD/ADHD, Sleep Difficulties, Anxiety, Depression Integumentary: No Blood Disorders: No Adverse Reaction/Blood Tranf: No Family Medical History Hypertension 19 FATHER Hypertension Physical Exam Vital Signs Vital Signs - First Documented 11/19/22 08:49 Temp 36.8 Pulse 95 Resp 16 B/P (MAP) 132/74 (93) Pulse Ox 99 Capillary Refill : Height/Weight/BMI Height: 5'3.00" Weight: 240lbs. 2.0oz. [id number]; 38.00 BMI Method:Stated General Appearance: obese Respiratory: lungs clear, normal breath sounds Cardiovascular: normal peripheral pulses, regular rate, rhythm Gastrointestinal: soft, tenderness (epigastric ) Neurologic/Psychiatric: alert, normal mood/affect, oriented x 3 Skin: normal color, warm/dry Progress/Results/Core Measures Results/Orders Lab Results Laboratory Tests Test 11/19/22 09:05 11/19/22 09:21 Range/Units Urine Color YELLOW Urine Clarity CLOUDY Urine pH 6.0 5-9 Urine Specific [place] 1.020 1.016-1.022 Urine Protein NEGATIVE NEGATIVE Urine Glucose (UA) 3+ H NEGATIVE Urine Ketones 1+ H NEGATIVE Urine Nitrite NEGATIVE NEGATIVE Urine Bilirubin NEGATIVE NEGATIVE Urine Urobilinogen 1.0 < = 1.0 MG/DL Urine Leukocyte Esterase TRACE H NEGATIVE Urine RBC (Auto) TRACE-I H NEGATIVE Urine RBC RARE /HPF Urine WBC 5-10 H /HPF Urine Squamous Epithelial Cells 10-25 H /HPF Urine Crystals NONE /LPF Urine Bacteria TRACE /HPF Urine Casts NONE /LPF Urine Mucus NEGATIVE /LPF Urine Yeast FEW H /HPF Urine Culture Indicated YES Urine Opiates Screen NEGATIVE NEGATIVE Urine Oxycodone Screen NEGATIVE NEGATIVE Urine Methadone Screen NEGATIVE NEGATIVE Urine Propoxyphene Screen NEGATIVE NEGATIVE Urine Barbiturates Screen NEGATIVE NEGATIVE Ur Tricyclic Antidepressants Screen NEGATIVE NEGATIVE Urine Phencyclidine Screen NEGATIVE NEGATIVE Urine Amphetamines Screen NEGATIVE NEGATIVE Urine Methamphetamines Screen NEGATIVE NEGATIVE Urine Benzodiazepines Screen NEGATIVE NEGATIVE Urine Cocaine Screen NEGATIVE NEGATIVE Urine Cannabinoids Screen NEGATIVE NEGATIVE Influenza Type A (RT-PCR) Not Detected Not Detecte Influenza Type B (RT-PCR) Not Detected Not Detecte SARS-CoV-2 RNA (RT-PCR) Not Detected Not Detecte White Blood Count 8.6 4.3-11.0 10^3/uL Red Blood Count 4.88 3.80-5.11 10^6/uL Hemoglobin 12.8 11.5-16.0 g/dL Hematocrit 41 35-52 % Mean Corpuscular Volume 84 80-99 fL Mean Corpuscular Hemoglobin 26 25-34 pg Mean Corpuscular Hemoglobin Concent 31 L 32-36 g/dL Red Cell Distribution Width 15.9 H 10.0-14.5 % Platelet Count 258 130-400 10^3/uL Mean Platelet Volume 11.3 9.0-12.2 fL Immature Granulocyte % (Auto) 1 % Neutrophils (%) (Auto) 67 42-75 % Lymphocytes (%) (Auto) 24 12-44 % Monocytes (%) (Auto) 6 0-12 % Eosinophils (%) (Auto) 2 0-10 % Basophils (%) (Auto) 1 0-10 % Neutrophils # (Auto) 5.8 1.8-7.8 10^3/uL Lymphocytes # (Auto) 2.1 1.0-4.0 10^3/uL Monocytes # (Auto) 0.5 0.0-1.0 10^3/uL Eosinophils # (Auto) 0.2 0.0-0.3 10^3/uL Basophils # (Auto) 0.1 0.0-0.1 10^3/uL Immature Granulocyte # (Auto) 0.1 0.0-0.1 10^3/uL Sodium Level 141 135-145 MMOL/L Potassium Level 3.4 L 3.6-5.0 MMOL/L Chloride Level 107 98-107 MMOL/L Carbon Dioxide Level 21 21-32 MMOL/L Anion Gap 13 5-14 MMOL/L Blood Urea Nitrogen 12 7-18 MG/DL Creatinine 1.22 0.60-1.30 MG/DL Estimat Glomerular Filtration Rate 53 BUN/Creatinine Ratio 10 Glucose Level 309 H 70-105 MG/DL Calcium Level 9.5 8.5-10.1 MG/DL Corrected Calcium 9.3 8.5-10.1 MG/DL Total Bilirubin 0.7 0.1-1.0 MG/DL Aspartate Amino Transf (AST/SGOT) 17 5-34 U/L Alanine Aminotransferase (ALT/SGPT) 20 0-55 U/L Alkaline Phosphatase 61 40-136 U/L C-Reactive Protein High Sensitivity 0.39 0.00-0.50 MG/DL Total Protein 7.6 6.4-8.2 GM/DL Albumin 4.3 3.2-4.5 GM/DL Lipase 23 8-78 U/L My Orders Orders - FINN ZAMORAVOR L DO Cbc With Automated Diff (11/19/22 08:56) Comprehensive Metabolic Panel (11/19/22 08:56) Hs C Reactive Protein (11/19/22 08:56) Drug Screen Stat (Urine) (11/19/22 08:56) Lipase (11/19/22 08:56) Ua Culture If Indicated (11/19/22 08:56) Influenza A And B By Pcr (11/19/22 08:56) Covid 19 Inhouse Test (11/19/22 08:56) Ondansetron Injection (Zofran Injectio (11/19/22 09:00) Ns Iv 1000 Ml (Sodium Chloride 0.9%) (11/19/22 08:56) Famotidine Injection (Pepcid Injection) (11/19/22 08:56) Chest 1 View, Ap/Pa Only (11/19/22 09:25) Urine Culture (11/19/22 09:05) Lidocaine 2% Viscous 15 Ml (Xylocaine Vi (11/19/22 10:00) Antacid Suspension (Mylanta Suspension (11/19/22 10:00) Metoclopramide Injection (Reglan Injecti (11/19/22 10:32) Medications Given in ED Current Medications Medications Dose Ordered Sig/Kate Route Start Time Stop Time Status Last Admin Dose Admin Al Hydrox/Mg Hydrox/Simethicone 30 ml ONCE ONCE PO 11/19/22 10:00 11/19/22 10:01 DC 11/19/22 10:08 30 ML Lidocaine HCl 15 ml ONCE ONCE PO 11/19/22 10:00 11/19/22 10:01 DC 11/19/22 10:08 15 ML Ondansetron HCl 4 mg ONCE ONCE IVP 11/19/22 09:00 11/19/22 09:01 DC 11/19/22 09:10 4 MG Vital Signs/I&O 11/19/22 08:49 Temp 36.8 Pulse 95 Resp 16 B/P (MAP) 132/74 (93) Pulse Ox 99 Progress Progress Note : Progress Note Patient's diagnostic studies were ordered reviewed and interpreted by me. Patient's labs show no significant findings. Patient has a history of chronic abdominal pain gastroparesis. Patient had a mild cough so chest x-ray was obtained Hemoccult was checked and are both negative. Patient to be started on Reglan 4 times a day. Patient will need to follow-up with her primary care provider. There was an incidental finding of a yeast infection. Patient can start [id number] medications. She is stable and discharged home Departure Impression Primary Impression: Chronic generalized abdominal pain Additional Impressions: Gastroparesis Candidiasis Disposition: HOME, SELF-CARE Condition: Stable Departure-Patient Inst. Referrals: [facility] (PCP) Primary Care Physician ALISON STAPLES (Family) Primary Care Physician Patient Instructions: CLEAR LIQUID DIET ADULT/CHILD, Gastroparesis (delayed gastric emptying), Nausea and Vomiting, Adult ED, Vaginal Yeast Infection, Adult ED Add. Discharge Instructions: Please follow-up with your primary care provider for further outpatient evaluation and GI consult as needed. You did have a incidental yeast infection noted on your urinalysis. You can treat this with [id number] yeast medication. Please follow their instructions. Please start taking Reglan on a normal basis 4 times a day. Also recommend you take Pepcid/famotidine twice daily as directed on package and use Maalox as needed. Start with a clear liquid diet and advance as tolerated. All discharge instructions reviewed with patient and/or family. Voiced understanding. Scripts Metoclopramide HCl (Reglan) 5 Mg Tablet 5 MG PO QID, #30 TAB Prov: OFELIA ZAMORA DO 11/19/22 OFELIA ZAMORA DO Nov 19, 2022 08:50
[2022-11-19] MEDS ORDERED: NS IV 1000 ML 1,000 ML IV STA (08:56)
[2022-11-19] MEDS ORDERED: FAMOTIDINE 20MG/2ML IV (PEPCID) IV STA (08:56)
[2022-11-19] MEDS ORDERED: ONDANSETRON 4 MG/2 ML (SDV) Z0FRAN IVP ONE (09:00)
[2022-11-19 09:19] LABS: BILIRUBIN,URINE NEGATIVE (NEGATIVE); CLARITY,URINE CLOUDY; COLOR,URINE YELLOW; GLUCOSE, URINE (UA) 3+ (NEGATIVE); KETONES,URINE 1+ (NEGATIVE); LEUKOCYTE ESTERASE ,URINE TRACE (NEGATIVE); NITRITE,URINE NEGATIVE (NEGATIVE); PROTEIN,URINE NEGATIVE (NEGATIVE)
[2022-11-19 09:27] LABS: RBC,URINE RARE /HPF
[2022-11-19 09:28] LABS: BACTERIA,URINE TRACE /HPF; YEAST,URINE FEW /HPF
[2022-11-19 09:33] LABS: AMPHETAMINE SCREEN, URINE NEGATIVE (NEGATIVE); BARBITURATE SCREEN URINE NEGATIVE (NEGATIVE); BENZODIAZEPINES SCREEN URINE NEGATIVE (NEGATIVE); CANNABINOID SCREEN, URINE NEGATIVE (NEGATIVE); COCAINE SCREEN URINE NEGATIVE (NEGATIVE); METHADONE STAT NEGATIVE (NEGATIVE); OPIATE SCREEN URINE NEGATIVE (NEGATIVE); OXYCODONE STAT NEGATIVE (NEGATIVE); PROPOXYPHENE STAT NEGATIVE (NEGATIVE); TRICYCLIC ANTIDEPRESSANTS SCRE NEGATIVE (NEGATIVE)
[2022-11-19 09:35] LABS: BASOPHILS # (AUTO) 0.1 10^3/uL (0.0-0.1); BASOPHILS % (AUTO) 1 % (0-10); EOSINOPHILS # (AUTO) 0.2 10^3/uL (0.0-0.3); EOSINOPHILS % (AUTO) 2 % (0-10); HEMATOCRIT 41 % (35-52); HEMOGLOBIN 12.8 g/dL (11.5-16.0); LYMPHOCYTES # (AUTO) 2.1 10^3/uL (1.0-4.0); LYMPHOCYTES % (AUTO) 24 % (12-44); MEAN CORPUSCULAR HEMOGLOBIN 26 pg (25-34); MEAN CORPUSCULAR HGB CONC 31 g/dL (32-36); MEAN CORPUSCULAR VOLUME 84 fL (80-99); MEAN PLATELET VOLUME 11.3 fL (9.0-12.2); MONOCYTES # (AUTO) 0.5 10^3/uL (0.0-1.0); MONOCYTES % (AUTO) 6 % (0-12); NEUTROPHILS # (AUTO) 5.8 10^3/uL (1.8-7.8); NEUTROPHILS % (AUTO) 67 % (42-75); PLATELET COUNT 258 10^3/uL (130-400); WHITE BLOOD COUNT 8.6 10^3/uL (4.3-11.0)
[2022-11-19 09:51] LABS: ALBUMIN 4.3 GM/DL (3.2-4.5); POTASSIUM 3.4 MMOL/L (3.6-5.0)
[2022-11-19 09:52] LABS: CALCIUM 9.5 MG/DL (8.5-10.1)
[2022-11-19 09:54] LABS: TOTAL PROTEIN 7.6 GM/DL (6.4-8.2)
--- NOTE | 2022-11-19 09:54 | Diagnostic Imaging Report ---
INDICATION: Nausea, vomiting x4 days and diarrhea starting last night. Upper abdominal pain. TECHNIQUE: Single view chest 9:29 AM. CORRELATION STUDY: 02/27/2021 FINDINGS: Heart size enlarged. Mediastinum is mildly prominent. Borderline vasculature. Loop recorder device over left lower chest. The lungs are clear with no consolidating infiltrate. There is no significant effusion or pneumothorax. IMPRESSION: 1. Borderline heart size and vasculature. However, overall appears less pronounced from prior. Dictated by: Dictated on workstation # [id number]
[2022-11-19 09:55] LABS: BILIRUBIN,TOTAL 0.7 MG/DL (0.1-1.0)
[2022-11-19 09:57] LABS: CREATININE SERUM 1.22 MG/DL (0.60-1.30)
[2022-11-19] MEDS ORDERED: ANTACID SUSP 30 ML UDC (MYLANTA) PO ONE (10:00)
[2022-11-19] MEDS ORDERED: LIDOCAINE 2% VISCOUS 15 ML UDC PO ONE (10:00)
[2022-11-19] MEDS ORDERED: METO5TAB75 PO (10:32)
[2022-11-19] MEDS ORDERED: METOCLOPRAMIDE INJ 10 MG/2 ML (REGLAN) IVP STA (10:32)
[2022-11-19 10:58] VITALS: BP 128/73
== END 2022-11-19 10:58 | disposition home or self-care (01) ==
LOC: EDUNIT# 08:37 → ER 08:38
DX: E11.43 Type 2 diabetes mellitus with diabetic autonomic (poly)neuropathy (principal); K31.84 Gastroparesis; G89.29 Other chronic pain; B37.49 Other urogenital candidiasis; R05.9 Cough, unspecified; E66.9 Obesity, unspecified; Z68.38 Body mass index [BMI] 38.0-38.9, adult; Z20.822 Contact with and (suspected) exposure to COVID-19
CPT/HCPCS: 36415; 71045; 80053; 80306; 81000; 83690; 85025; 86141; 87077; 87088; 87186; 87636

== ENCOUNTER 2023-01-13 09:29 | Emergency (ER) | payer MEDICARE, MEDICAID ==
[~2023-01-13] VITALS: Ht 160 cm; Wt 100.0 kg
[~2023-01-13 09:29] MED LIST changes: +METO5TAB75 PO
--- NOTE | 2023-01-13 09:43 | ED Abdominal Pain ---
General Chief Complaint: Abdominal/GI Problems Stated Complaint: NAUSEA | VOMITING Nursing Triage Note: PT TO [facility] 9 BY [facility] WITH CC OF NVD THAT STARTED YESTERDAY JULIO Source of Information: Patient, EMS, Old Records Exam Limitations: No Limitations History of Present Illness Date Seen by Provider: Jan 13, 2023 Time Seen by Provider: 09:33 Initial Comments This 52-year-old woman presents to the emergency room via EMS with complaints of generalized abdominal pain nausea, vomiting diarrhea, and dysuria. Her blood sugar was too high to read for EMS. Blood sugar on arrival to the ER was 549. She has history of diabetes and gastroparesis. She does not recall if she took her insulin last night. She is afebrile. She has been prescribed Reglan in the past, but she uses it sparingly and has not used any recently. She appears distraught on arrival and is immediately requesting admission. Allergies and Home Medications Allergies Coded Allergies: lisinopril (Verified Allergy, Mild, COUGH, 02/28/21) doxycycline (Verified Allergy, Unknown, 03/03/21) Nausea and vomiting montelukast (Verified Allergy, Unknown, UNABLE TO REMEMBER REACTION, 02/28/21) Uncoded Allergies: METALS (Allergy, Unknown, 07/12/14) Patient Home Medication List Home Medication List Reviewed: Yes Atorvastatin Calcium (Atorvastatin Calcium) 10 Mg Tablet, 10 MG PO HS, (Reported) Entered as Reported by: KAY ARENAS on 12/12/20 1224 Cefdinir (Cefdinir) 300 Mg Capsule, 300 MG PO BID Prescribed by: DEEPTI PIKE on 07/16/21 1428 Cephalexin (Cephalexin) 500 Mg Tablet, 500 MG PO TID Prescribed by: LENNY BALBUENA on 01/13/23 1304 Desvenlafaxine Succinate (Desvenlafaxine Succinate ER) 100 Mg Tab.er.24h, 100 MG PO DAILY, (Reported) Entered as Reported by: KAY ARENAS on 12/12/20 1224 Diclofenac Sodium (Diclofenac Sodium) 50 Mg Tablet.dr, 50 MG PO BID, (Reported) Entered as Reported by: KAY ARENAS on 01/10/21 1505 Docusate Sodium (Docusate Sodium) 100 Mg Capsule, 100 MG PO BID, (Reported) Entered as Reported by: KAY ARENAS on 11/22/19 1602 Empagliflozin (Jardiance) 10 Mg Tablet, 10 MG PO DAILY, (Reported) Entered as Reported by: KAY ARENAS on 01/10/21 1505 Famotidine (Famotidine) 20 Mg Tablet, 20 MG PO BID, (Reported) Entered as Reported by: KAY ARENAS on 12/12/20 1224 Gabapentin (Gabapentin) 600 Mg Tablet, 600 MG PO TID, (Reported) Entered as Reported by: KAY ARENAS on 02/28/19 1002 Insulin Detemir (Levemir Flextouch) 100 Unit/1 Ml Insuln.pen, 15 UNIT SQ HS, (Reported) Entered as Reported by: KAY ARENAS on 07/15/21 0949 Metoclopramide HCl (Reglan) 5 Mg Tablet, 5 MG PO QID Prescribed by: OFELIA ZAMORA on 11/19/22 1032 Mirtazapine (Mirtazapine) 30 Mg Tablet, 30 MG PO HS, (Reported) Entered as Reported by: KAY ARENAS on 12/12/20 1224 Ondansetron (Ondansetron Odt) 8 Mg Tab.rapdis, 8 MG PO Q6H PRN for NAUSEA/VOMITING-1ST LINE, (Reported) Entered as Reported by: KAY ARENAS on 07/15/21 0949 Pantoprazole Sodium (Pantoprazole Sodium) 40 Mg Tablet.dr, 40 MG PO BID, (Reported) Entered as Reported by: KAY ARENAS on 02/28/19 1013 Promethazine HCl (Promethazine Suppository) 25 Mg Supp.rect, 25 MG RC Q6H PRN for NAUSEA/VOMITING-2ND LINE, (Reported) Entered as Reported by: KAY ARENAS on 07/15/21 0949 Quetiapine Fumarate (Quetiapine Fumarate) 400 Mg Tablet, 400 MG PO HS, (Reported) Entered as Reported by: KAY ARENAS on 12/12/20 1224 Spironolactone (Spironolactone) 25 Mg Tablet, 25 MG PO DAILY, (Reported) Entered as Reported by: KAY ARENAS on 02/28/21 1637 Tizanidine HCl (Tizanidine HCl) 4 Mg Tablet, 4 MG PO TID, (Reported) Entered as Reported by: KAY ARENAS on 12/12/20 1224 Review of Systems Review of Systems Constitutional: no symptoms reported EENTM: No Symptoms Reported Respiratory: No Symptoms Reported Cardiovascular: No Symptoms Reported Gastrointestinal: See HPI Genitourinary: See HPI Musculoskeletal: no symptoms reported Skin: no symptoms reported Psychiatric/Neurological: No Symptoms Reported Endocrine: See HPI Hematologic/Lymphatic: No Symptoms Reported Past Bwpezkj-Ibazjp-Rwinbj Hx Patient Social History Tobacco Use?: No Substance use?: No Alcohol Use?: No Immunizations Up To Date Tetanus Booster (TDap): Unknown First/Initial COVID19 Vaccinat: JAN Second COVID19 Vaccination Juan M: Feb COVID19 Vaccination Date: JAN Seasonal Allergies Seasonal Allergies: No Past Medical History Surgery/Hospitalization HX: DM 2, FIBROMYALGIA, ARTHRITIS IN SPINE SX: GALLBLADDER Surgeries: Yes (EGD) Abdominal (gastric empying study positive for gastroparesis, EGD), Eye Surgery, Gallbladder, Orthopedic Respiratory: Yes Asthma, Pneumonia Currently Using CPAP: No Currently Using BIPAP: No Cardiac: Yes Palpitations Neurological: Yes Headaches /Migraines 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 Disorders: No Female 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 Disorders: Denies [employer]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 Sexually Transmitted Disease: No Genitourinary: Yes UTI-Chronic Gastrointestinal: Yes (Gastroparesis) Gastroesophageal Reflux Musculoskeletal: Yes Fibromyalgia Endocrine: Yes Diabetes, Insulin dep HEENT: Yes Loss of Vision: Denies Hearing Impairment: Denies Cancer: No Psychosocial: Yes ADD/ADHD, Sleep Difficulties, Anxiety, Depression Integumentary: No Blood Disorders: No Adverse Reaction/Blood Tranf: No Family Medical History Hypertension 19 FATHER Hypertension Physical Exam Vital Signs Vital Signs - First Documented 01/13/23 09:32 Temp 36.7 Pulse 99 Resp 22 B/P (MAP) 130/94 (106) Pulse Ox 97 O2 Delivery Room Air Capillary Refill : Less Than 3 Seconds Height/Weight/BMI Height: 5'3.00" Weight: 240lbs. 2.0oz. [id number]; 39.00 BMI Method:Stated General Appearance: WD/WN, mild distress HEENT: normal ENT inspection Neck: normal inspection Respiratory: lungs clear, normal breath sounds, no respiratory distress Cardiovascular: regular rate, rhythm, no edema, no murmur Gastrointestinal: normal bowel sounds, soft; No distended; tenderness (Generalized) Extremities: normal inspection, no pedal edema Neurologic/Psychiatric: no motor/sensory deficits, alert, oriented x 3, other (Anxious) Skin: normal color, warm/dry Progress/Results/Core Measures Results/Orders Lab Results Laboratory Tests Test 01/13/23 09:34 01/13/23 09:55 01/13/23 10:26 01/13/23 11:55 Range/Units Glucometer 549 *H 417 *H 70-110 MG/DL White Blood Count 6.9 4.3-11.0 10^3/uL Red Blood Count 5.14 H 3.80-5.11 10^6/uL Hemoglobin 14.2 11.5-16.0 g/dL Hematocrit 44 35-52 % Mean Corpuscular Volume 85 80-99 fL Mean Corpuscular Hemoglobin 28 25-34 pg Mean Corpuscular Hemoglobin Concent 33 32-36 g/dL Red Cell Distribution Width 15.5 H 10.0-14.5 % Platelet Count 214 130-400 10^3/uL Mean Platelet Volume 11.0 9.0-12.2 fL Immature Granulocyte % (Auto) 0 % Neutrophils (%) (Auto) 67 42-75 % Lymphocytes (%) (Auto) 24 12-44 % Monocytes (%) (Auto) 7 0-12 % Eosinophils (%) (Auto) 1 0-10 % Basophils (%) (Auto) 1 0-10 % Neutrophils # (Auto) 4.6 1.8-7.8 10^3/uL Lymphocytes # (Auto) 1.7 1.0-4.0 10^3/uL Monocytes # (Auto) 0.5 0.0-1.0 10^3/uL Eosinophils # (Auto) 0.1 0.0-0.3 10^3/uL Basophils # (Auto) 0.1 0.0-0.1 10^3/uL Immature Granulocyte # (Auto) 0.0 0.0-0.1 10^3/uL Sodium Level 137 135-145 MMOL/L Potassium Level 3.9 3.6-5.0 MMOL/L Chloride Level 102 98-107 MMOL/L Carbon Dioxide Level 21 21-32 MMOL/L Anion Gap 14 5-14 MMOL/L Blood Urea Nitrogen 13 7-18 MG/DL Creatinine 1.37 H 0.60-1.30 MG/DL Estimat Glomerular Filtration Rate 46 BUN/Creatinine Ratio 9 Glucose Level 510 *H 70-105 MG/DL Calcium Level 9.8 8.5-10.1 MG/DL Corrected Calcium 9.6 8.5-10.1 MG/DL Magnesium Level 1.8 1.6-2.4 MG/DL Total Bilirubin 0.7 0.1-1.0 MG/DL Aspartate Amino Transf (AST/SGOT) 16 5-34 U/L Alanine Aminotransferase (ALT/SGPT) 25 0-55 U/L Alkaline Phosphatase 74 40-136 U/L C-Reactive Protein High Sensitivity 0.29 0.00-0.50 MG/DL Total Protein 7.7 6.4-8.2 GM/DL Albumin 4.2 3.2-4.5 GM/DL Lipase 31 8-78 U/L Urine Color YELLOW Urine Clarity CLEAR Urine pH 7.0 5-9 Urine Specific [place] 1.015 L 1.016-1.022 Urine Protein NEGATIVE NEGATIVE Urine Glucose (UA) 3+ H NEGATIVE Urine Ketones 2+ H NEGATIVE Urine Nitrite POSITIVE H NEGATIVE Urine Bilirubin NEGATIVE NEGATIVE Urine Urobilinogen 0.2 < = 1.0 MG/DL Urine Leukocyte Esterase TRACE H NEGATIVE Urine RBC (Auto) 1+ H NEGATIVE Urine RBC 0-2 /HPF Urine WBC 5-10 H /HPF Urine Squamous Epithelial Cells 2-5 /HPF Urine Crystals NONE /LPF Urine Bacteria LARGE H /HPF Urine Casts NONE /LPF Urine Mucus NEGATIVE /LPF Urine Yeast FEW H /HPF Urine Culture Indicated YES Test 01/13/23 12:00 01/13/23 12:52 Range/Units Glucometer 368 H 316 H 70-110 MG/DL My Orders Orders - LENNY BOYKIN MD Cbc With Automated Diff (01/13/23 09:39) Comprehensive Metabolic Panel (01/13/23 09:39) Hs C Reactive Protein (01/13/23 09:39) Lipase (01/13/23 09:39) Magnesium (01/13/23 09:39) Ua Culture If Indicated (01/13/23 09:39) Ed Iv/Invasive Line Start (01/13/23 09:39) Ns Iv 1000 Ml (Sodium Chloride 0.9%) (01/13/23 09:45) Ondansetron Injection (Zofran Injectio (01/13/23 09:45) Insulin (Regular) Per Unit (Insulin (Reg (01/13/23 09:45) Accucheck Stat ONCE (01/13/23 09:41) Accucheck Stat ONCE (01/13/23 09:41) Promethazine Injection (Phenergan Injec (01/13/23 10:30) Scopolamine Patch (Transderm-Scop Patch) (01/13/23 10:30) Lactated Ringers (Lr 1000 Ml Iv Solution (01/13/23 10:45) Ct Abdomen/Pelvis W (01/13/23 10:33) Iohexol Injection (Omnipaque 350 Mg/Ml 1 (01/13/23 10:45) Received Contrast (Hold Metformin- Contr (01/13/23 10:45) Ns (Ivpb) 100 Ml (Sodium Chloride 0.9% 1 (01/13/23 10:45) Scopolamine Patch (Transderm-Scop Patch) (01/13/23 11:00) Accucheck Stat ONCE (01/13/23 11:57) Urine Culture (01/13/23 11:55) Ceftriaxone Iv/Im (Ceftriaxone Iv/Im) (01/13/23 12:35) Accucheck Stat ONCE (01/13/23 12:35) Medications Given in ED Vital Signs/I&O 01/13/23 01/13/23 09:32 13:30 Temp 36.7 Pulse 99 80 Resp 22 16 B/P (MAP) 130/94 (106) 128/74 Pulse Ox 97 97 O2 Delivery Room Air Room Air 01/14/23 00:00 Intake Total 1050 ml Balance 1050 ml Blood Pressure Mean: 106 FSBG Bedside Testing Finger Stick Blood Glucose: 549 Blood Glucose Action Taken: INFORMED Progress Progress Note : Progress Note Patient was interviewed and examined upon arrival by 0933. Report was received from EMS. Chart was reviewed. Treatment was initiated with Zofran, IV saline, and insulin 5 units subcutaneously. Patient experienced refractory nausea and was further treated with a scopolamine patch and Phenergan. A second liter of IV fluid was infused to help drive down her blood sugar. Blood sugar was ch ecked multiple times and she was demonstrating a satisfactory downward trend prior to discharge. Patient's abdominal pain and vomiting was further assessed with CT to rule out bowel obstruction or other surgical pathology. Patient was offered Reglan for her gastroparesis but declined. Labs were reviewed and interpreted by me in their entirety. Urinalysis demonstrated pyuria with bacteria and WBC present. This UTI was treated with Rocephin. Creatinine was slightly elevated above baseline suggesting some mild hypovolemia. CBC, CMP, magnesium, and lipase were otherwise unremarkable. Patient was given an oral fluid challenge prior to discharge. She tolerated the oral fluid challenge and was discharged in much improved condition. See discharge instructions for further discussion. CT scan was reviewed by me. I appreciated no acute pathology. Specifically I do not see any evidence of bowel obstruction, constipation, inflammatory responses, or ureteral stones. Radiologist's report was also reviewed. Diagnostic Imaging Diagonstic Imaging: CT Plain Films/CT/US/NM/MRI: abdomen, pelvis Comments NAME: [facility] REC#: [id number] PT STATUS: DEP ER : 1970 PHYSICIAN: LENNY BOYKIN MD ADMIT DATE: 01/13/23/ER Signed Date of Exam:01/13/23 CT ABDOMEN/PELVIS W PROCEDURE: CT abdomen and pelvis with contrast. TECHNIQUE: Multiple contiguous axial images were obtained through the abdomen and pelvis after administration of intravenous contrast. Auto Exposure Controls were utilized during the CT exam to meet ALARA standards for radiation dose reduction. All CT scans use one or more of the following dose optimizing techniques: automated exposure control, MA and/or KvP adjustment based on patient size and exam type or iterative reconstruction. INDICATION: Abdominal pain, vomiting. COMPARED: 06/29/2021 FINDINGS: Hepatic steatosis chronic. No liver mass. No bile duct dilatation postcholecystectomy. Spleen, adrenals and pancreas unremarkable. Some chronic scarring or persistent lobation throughout the right kidney as well as some scarring in the left renal upper pole cortex is unchanged. No hydronephrosis. No perinephric edema. No radiodense stone or renal mass. There is noninflamed diverticular disease of the sigmoid colon. There is a fatty umbilical hernia noninflamed. No ileus or bowel obstruction. Spleen, adrenals and pancreas negative. The aortoiliac and mesenteric vessels patent and nonaneurysmal. IMPRESSION: Chronic fatty liver, renal scarring. No hydrocele. Noninflamed diverticular disease and a fatty umbilical hernia all stable. No obstructive features, inflammatory processes or acute-appearing abnormalities. No change from prior. Dictated by: Dictated on workstation # [id number] Dict: 01/13/23 1201 Trans: 01/13/23 1646 CVB [id number] Interpreted by: NATHALY HERNANDEZ Electronically signed by: NATHALY HERNANDEZ 01/13/23 0676 Departure Impression Primary Impression: Generalized abdominal pain Additional Impressions: Nausea, vomiting and diarrhea Hyperglycemia History of diabetic gastroparesis Urinary tract infection Qualified Codes: N39.0 - Urinary tract infection, site not specified Disposition: HOME, SELF-CARE Condition: Improved Departure-Patient Inst. Decision time for Depature: 12:47 Referrals: [facility]ARAH (PCP) Primary Care Physician ALISON STAPLES (Family) Primary Care Physician Patient Instructions: Abdominal Pain, Adult ED, Gastroparesis (delayed gastric emptying), Urinary Tract Infection, Adult ED Add. Discharge Instructions: Start with a noncarbonated clear liquid diet. Gradually advance your diet with very small quantities of bland food as tolerated. Use Zofran for primary control nausea and vomiting. Add Reglan as previously prescribed. You may leave your scopolamine patch on for up to 3 days. Avoid touching the scopolamine patch. Wash your hands with soap and water after touching the patch. Scopolamine may cause some blurry vision and dry mouth. If the symptoms are not tolerable, remove the patch and symptoms should resolve within a few hours. Complete your antibiotic as prescribed. Follow-up with your primary care provider soon as possible. Review urine culture results with your doctor. Continue your insulin as previously directed. Monitor blood sugars closely and report blood sugar trends to your doctor. Blood sugars fasting in the morning and 2 hours after meals is preferred. Return to the emergency room if you have worsening symptoms despite following these instructions. All discharge instructions reviewed with patient and/or family. Voiced understanding. Scripts Cephalexin (Cephalexin) 500 Mg Tablet 500 MG PO TID, #20 TAB Prov: LENNY BOYKIN MD 01/13/23 LENNY BOYKIN MD Jan 13, 2023 09:43
[2023-01-13] MEDS ORDERED: NS IV 1000 ML 1,000 ML IV ONE (09:45)
[2023-01-13] MEDS ORDERED: ONDANSETRON 4 MG/2 ML (SDV) Z0FRAN IVP ONE (09:45)
[2023-01-13] MEDS ORDERED: inSUlin (REGULAR) HUMAN 1 UNIT/0.01 ML (CHARGE PER UNIT) SC ONE (09:45)
[2023-01-13 10:05] LABS: BASOPHILS # (AUTO) 0.1 10^3/uL (0.0-0.1); BASOPHILS % (AUTO) 1 % (0-10); EOSINOPHILS # (AUTO) 0.1 10^3/uL (0.0-0.3); EOSINOPHILS % (AUTO) 1 % (0-10); HEMATOCRIT 44 % (35-52); HEMOGLOBIN 14.2 g/dL (11.5-16.0); LYMPHOCYTES # (AUTO) 1.7 10^3/uL (1.0-4.0); LYMPHOCYTES % (AUTO) 24 % (12-44); MEAN CORPUSCULAR HEMOGLOBIN 28 pg (25-34); MEAN CORPUSCULAR HGB CONC 33 g/dL (32-36); MEAN CORPUSCULAR VOLUME 85 fL (80-99); MONOCYTES # (AUTO) 0.5 10^3/uL (0.0-1.0); MONOCYTES % (AUTO) 7 % (0-12); NEUTROPHILS # (AUTO) 4.6 10^3/uL (1.8-7.8); NEUTROPHILS % (AUTO) 67 % (42-75); PLATELET COUNT 214 10^3/uL (130-400); WHITE BLOOD COUNT 6.9 10^3/uL (4.3-11.0)
[2023-01-13 10:19] LABS: ALBUMIN 4.2 GM/DL (3.2-4.5); POTASSIUM 3.9 MMOL/L (3.6-5.0)
[2023-01-13 10:20] LABS: CALCIUM 9.8 MG/DL (8.5-10.1)
[2023-01-13 10:21] LABS: TOTAL PROTEIN 7.7 GM/DL (6.4-8.2)
[2023-01-13 10:23] LABS: BILIRUBIN,TOTAL 0.7 MG/DL (0.1-1.0)
[2023-01-13 10:25] LABS: CREATININE SERUM 1.37 MG/DL (0.60-1.30)
[2023-01-13 10:28] LABS: MAGNESIUM 1.8 MG/DL (1.6-2.4)
[2023-01-13] MEDS ORDERED: PROMETHAZINE INJ 25 MG/ML (PHENERGAN) AMP IVP ONE (10:30)
[2023-01-13] MEDS ORDERED: SCOPOLAMINE 1.5 MG (TRANSDERM-SCOP) PATCH TD ONE ×2 (10:30→11:00)
[2023-01-13] MEDS ORDERED: IOHEXOL 350 MG/ML 100 ML (OMNIPAQUE 350) VIAL IV ONE (10:45)
[2023-01-13] MEDS ORDERED: NS 100 ML (IVPB) BAG IV ONE (10:45)
[2023-01-13] MEDS ORDERED: LACTATED RINGERS 1,000 ML IV ONE (10:45)
[2023-01-13] MEDS ORDERED: HOLD METFORMIN - RECEIVED CONTRAST 20 ML VIAL IV SCH (10:45)
--- NOTE | 2023-01-13 12:10 | Diagnostic Imaging Report ---
PROCEDURE: CT abdomen and pelvis with contrast. TECHNIQUE: Multiple contiguous axial images were obtained through the abdomen and pelvis after administration of intravenous contrast. Auto Exposure Controls were utilized during the CT exam to meet ALARA standards for radiation dose reduction. All CT scans use one or more of the following dose optimizing techniques: automated exposure control, MA and/or KvP adjustment based on patient size and exam type or iterative reconstruction. INDICATION: Abdominal pain, vomiting. COMPARED: 06/29/2021 FINDINGS: Hepatic steatosis chronic. No liver mass. No bile duct dilatation postcholecystectomy. Spleen, adrenals and pancreas unremarkable. Some chronic scarring or persistent lobation throughout the right kidney as well as some scarring in the left renal upper pole cortex is unchanged. No hydronephrosis. No perinephric edema. No radiodense stone or renal mass. There is noninflamed diverticular disease of the sigmoid colon. There is a fatty umbilical hernia noninflamed. No ileus or bowel obstruction. Spleen, adrenals and pancreas negative. The aortoiliac and mesenteric vessels patent and nonaneurysmal. IMPRESSION: Chronic fatty liver, renal scarring. No hydrocele. Noninflamed diverticular disease and a fatty umbilical hernia all stable. No obstructive features, inflammatory processes or acute-appearing abnormalities. No change from prior. Dictated by: Dictated on workstation # [id number]
[2023-01-13 12:19] LABS: COLOR,URINE YELLOW
[2023-01-13 12:20] LABS: BILIRUBIN,URINE NEGATIVE (NEGATIVE); CLARITY,URINE CLEAR; GLUCOSE, URINE (UA) 3+ (NEGATIVE); KETONES,URINE 2+ (NEGATIVE); LEUKOCYTE ESTERASE ,URINE TRACE (NEGATIVE); NITRITE,URINE POSITIVE (NEGATIVE); PROTEIN,URINE NEGATIVE (NEGATIVE)
[2023-01-13 12:21] LABS: BACTERIA,URINE LARGE /HPF; RBC,URINE 0-2 /HPF
[2023-01-13 12:22] LABS: YEAST,URINE FEW /HPF
[2023-01-13] MEDS ORDERED: cefTRIAXone IV/IM 1,000 MG in NS (IVPB) 50 ML 50 ML IV STA (12:35)
[2023-01-13] MEDS ORDERED: CEPH500T PO (13:04)
[2023-01-13 13:30] VITALS: BP 128/74
== END 2023-01-13 13:30 | disposition home or self-care (01) ==
LOC: EDUNIT# 09:29 → ER 09:30
DX: N39.0 Urinary tract infection, site not specified (principal); E11.43 Type 2 diabetes mellitus with diabetic autonomic (poly)neuropathy; K31.84 Gastroparesis; E11.65 Type 2 diabetes mellitus with hyperglycemia; Z90.49 Acquired absence of other specified parts of digestive tract; Z88.1 Allergy status to other antibiotic agents; Z79.4 Long term (current) use of insulin
CPT/HCPCS: 36415; 74177; 80053; 81000; 82947; 83690; 83735; 85025; 86141; 87088